=== PATIENT | female | born 1945 | race Caucasian/White ===

== ENCOUNTER → 2016-09-21 | Outpatient (CLI) | payer BC ==
[~2016-09-21] MED LIST: ACET-1256 PO; ACET650T49 PO; ASPCH81X PO; CHOL2000 PO; DOCU100C31 PO; GADAVIST IV PRN; GLC500 PO; GLIM2TAB PO; LISI-729 PO; LISI10TA PO; LPT/40 PO; LPT10 PO; MULT-506 PO; NVLGI/PEN SC; NYSTATIN POWDER TOP; OXYC1CAP5 PO; RXC5 PO; TRMO2580 TOP; TYLER650 PO
--- NOTE | 2016-09-21 11:16 | DIAGNOSTIC IMAGING REPORT ---
MRI OF THE BRAIN COMBO; MRI OF THE PITUITARY GLAND CLINICAL HISTORY: Meningioma. Pituitary macroadenoma. COMPARISON STUDY: MRI of the brain dated 10/19/2015. TECHNIQUE: MRI of the brain was performed utilizing various T1 and T2-weighted sequences in the axial, sagittal, and coronal planes. Contrast-enhanced sequences were acquired following the administration of 12 cc of Gadavist. Additional high-resolution imaging of the pituitary gland was performed including dynamic post contrast assessment. FINDINGS: Brain parenchyma: There is minimal periventricular microangiopathic change. There is no hemorrhage or mass effect. There is no restricted diffusion to suggest acute ischemia. There is unchanged appearance of a 1.9 x 2.1 x 1.2 cm homogeneously enhancing extra-axial mass in the anterior right temporal fossa as compared to 10/19/2015. This is typical in appearance for a meningioma. Stein-white matter differentiation is preserved. No extra-axial fluid collection is seen. The cerebellar tonsils are normal in configuration. Ventricles, sulci, and cisterns: Normal in configuration. Pituitary and sella: Again seen is a lobulated and enhancing mass lesion in the sella turcica. This extends in the suprasellar region and measures 2.0 x 1.2 x 2.0 cm. This abuts the optic chiasm. Intracranial vasculature: Normal flow voids are maintained at the skull base. Orbits: The bony orbits are grossly intact. Orbital contents are normal in appearance noting bilateral ocular lens implants. Sinuses and mastoids: Clear. Calvarium: Unremarkable. Cervical cord: Partially visualized cervical spinal cord is normal in morphology and signal intensity. IMPRESSION: 1. Age-related changes as above with no acute intracranial abnormality. 2. Unchanged appearance of a 2.1 cm extra-axial mass in the right anterior temporal fossa. This is typical in appearance for a meningioma. 3. Unchanged appearance of a 2.0 cm mass lesion centered in the sella turcica. The appearance is typical for a pituitary macroadenoma as clinically stated. This lesion extends in the suprasellar region and abuts the optic chiasm. Electronically signed by: Kenny Jung M.D. 09/21/2016 11:15 AM Dictated Date/Time: 09/21/2016 11:07 AM
== END | disposition home or self-care (01) ==
LOC: C.MRIBC 09:36
PROVIDERS: ATTEND Psychiatry & Neurology Neurology
DX: D32.9 Benign neoplasm of meninges, unspecified (principal); D35.2 Benign neoplasm of pituitary gland

== ENCOUNTER → 2016-10-07 | Outpatient (CLI) | payer BC ==
[~2016-10-07] MED LIST changes: -GADAVIST IV PRN
[2016-10-07 12:24] LABS: BASO % 0.2 %; BASO ABS # 0.01 K/uL (0-0.2); COMPLETE YES; EOS % 3.1 %; HEMATOCRIT 41.8 % (37-47); LYMPH % 33.9 %; LYMPH ABS # 1.52 K/uL (1.2-3.4); MEAN CELL VOLUME 93.5 fL (80-100); MEAN CORPUSCULAR HEMOGLOBIN 30.4 pg (25-34); MEAN CORPUSCULAR HGB CONC 32.5 g/dl (32-36); MEAN PLATELET VOLUME 10.7 fL (7.4-10.4); MONO % 9.6 %; NEUT % 53.2 %; PLATELET COUNT 130 K/uL (130-400); RED BLOOD COUNT 4.47 M/uL (4.2-5.4); WHITE BLOOD COUNT 4.49 K/uL (4.8-10.8)
[2016-10-07 12:35] LABS: ALT/SGPT 29 U/L (12-78); BLOOD UREA NITROGEN 19 mg/dl (7-18); BUN/CREATININE RATIO 25.6 (10-20); CALCIUM 8.9 mg/dl (8.5-10.1); CARBON DIOXIDE 27 mmol/L (21-32); CHLORIDE 105 mmol/L (98-107); CREATININE 0.73 mg/dl (0.60-1.20); GLUCOSE 137 mg/dl (70-99); POTASSIUM 4.2 mmol/L (3.5-5.1); SODIUM 140 mmol/L (136-145)
[2016-10-07 12:48] LABS: ALB/GLOB RATIO 0.7 (0.9-2); ALKALINE PHOSPHATASE 50 U/L (45-117); AST/SGOT 30 U/L (15-37); IMMUNOGLOBULN M 95.4 mg/dL (40-230)
[2016-10-07 12:51] LABS: ESTIMATED AVERAGE GLUCOSE 148 mg/dl; HA1C FLAG Normal (Normal)
[2016-10-07 13:03] LABS: RATIO 271.7 mcg/mg (0-30.0)
[2016-10-10 13:50] LABS: FREE KAPPA 44.1 MG/L (3.3-19.4); FREE KAPPA/LAMBDA RATIO 1.13 (0.26-1.65); FREE LAMBDA 39.1 MG/L (5.7-26.3)
[2016-10-10 17:51] LABS: ALBUMIN 3.3 G/DL (3.8-4.8); GAMMA GLOBULIN 1.5 G/DL (0.8-1.7)
[2016-10-11 08:43] LABS: ALBUMIN % 63.89 %; ALPHA-2-GLOBULIN % 4.34 %; BETA GLOBULIN % 18.06 %; CREATININE UR 129 MG/DL (20-320); GAMMA GLOBULIN % 12.12 %
== END | disposition home or self-care (01) ==
LOC: C.LABPVFM 08:30
PROVIDERS: ATTEND Nurse Practitioner
DX: D47.2 Monoclonal gammopathy (principal); E11.9 Type 2 diabetes mellitus without complications; I10 Essential (primary) hypertension; E78.00 Pure hypercholesterolemia, unspecified; E55.9 Vitamin D deficiency, unspecified

== ENCOUNTER 2016-11-18 10:27 | Inpatient (IN) | payer BC, OTHER ==
--- NOTE | 2016-11-03 09:32 | DIAGNOSTIC IMAGING REPORT ---
TWO VIEW CHEST CLINICAL HISTORY: Preoperative examination. FINDINGS: PA and lateral chest radiographs are compared to study dated 03/02/2014 and correlated with chest CT dated 11/20/2008. The heart is enlarged and there is atherosclerotic calcification of the thoracic aorta. The pulmonary vasculature is noncongested. Chronic dependent changes noted at the lung bases. No airspace consolidation or pleural effusion is identified. There is no pneumothorax. The skeletal structures are osteopenic. Degenerative change and mild hyperkyphosis is noted in the thoracic spine. Cholecystectomy clips are noted in the right upper quadrant. IMPRESSION: Cardiac enlargement with no active disease in the chest. Electronically signed by: Kenny Jung M.D. 11/03/2016 9:30 AM Dictated Date/Time: 11/03/2016 9:29 AM
[2016-11-03 09:48] LABS: BASO % 0.1 %; BASO ABS # 0.01 K/uL (0-0.2); COMPLETE YES; EOS % 2.7 %; HEMATOCRIT 43.9 % (37-47); IG% 0.4 %; LYMPH % 24.9 %; LYMPH ABS # 1.75 K/uL (1.2-3.4); MEAN CELL VOLUME 91.6 fL (80-100); MEAN CORPUSCULAR HEMOGLOBIN 29.9 pg (25-34); MEAN CORPUSCULAR HGB CONC 32.6 g/dl (32-36); MONO % 9.4 %; NEUT % 62.5 %; PLATELET COUNT 137 K/uL (130-400); RED BLOOD COUNT 4.79 M/uL (4.2-5.4); WHITE BLOOD COUNT 7.03 K/uL (4.8-10.8)
[2016-11-03 09:53] LABS: URINE APPEARANCE CLEAR (CLEAR); URINE BILIRUBIN NEG (NEG); URINE COLOR YELLOW; URINE EPITHELIAL CELL AUTO >30 /lpf (0-5); URINE NITRITE NEG (NEG); URINE SPECIFIC GRAVITY 1.016 (1.000-1.030); UROBILINOGEN NEG (NEG)
[2016-11-03 09:56] LABS: MANUAL MICROSCOPIC REQUIRED? NO; REVIEW REQ? NO
[2016-11-03 10:01] LABS: BLOOD UREA NITROGEN 24 mg/dl (7-18); BUN/CREATININE RATIO 28.4 (10-20); CARBON DIOXIDE 33 mmol/L (21-32); CHLORIDE 103 mmol/L (98-107); CREATININE 0.83 mg/dl (0.60-1.20); GLUCOSE 110 mg/dl (70-99); POTASSIUM 4.6 mmol/L (3.5-5.1); SODIUM 141 mmol/L (136-145)
[2016-11-03 15:33] VITALS: BMI 46.0
--- NOTE | 2016-11-17 14:40 | HISTORY & PHYSICAL EXAMINATION ---
DATE OF ADMISSION: 11/18/2016 CHIEF COMPLAINT: Lower back pain, bilateral leg pain, difficulties with ambulation. HISTORY OF PRESENT ILLNESS: Ms. Dudley is a patient who is well known to our practice. She has complaints of pain in the lower portion of her back affecting both of her legs. She has had epidural injections in the past with limited relief. The pain goes down to both knees, left side slightly worse than right. She denies any other numbness, tingling, paresthesias, any change in bladder or bowel function. PAST MEDICAL HISTORY: Significant for hypertension, diabetes, chest pressure and vertigo. PAST SURGICAL HISTORY: The patient has not recorded any surgical history per her office chart. ALLERGIES: The patient has not listed any drug allergies. MEDICATIONS: Include Vitamin D3, Trianex, Nystatin, metformin, lisinopril, glyburide, atorvastatin, glipizide, aspirin, and Extra-Strength Tylenol. REVIEW OF SYSTEMS: As per the patient's medical history. SOCIAL HISTORY: The patient is a 71-year-old female. She is retired and denies any illicit drug use. PHYSICAL EXAMINATION: GENERAL: She weighs 241 pounds, stands and moves easily about the exam room. MUSCULOSKELETAL: Lower extremity motor exam reveals no focal atrophy. Strength and sensation both intact. Gait stable. Visual neely are grossly intact. CARDIOVASCULAR EXAMINATION: Reveals no gross abnormalities. ABDOMEN: Soft, nontender. EXTREMITIES: Calves are supple and nontender. Skin is intact. NECK: Supple and nontender. Peripheral pulses are palpable distally. RADIOGRAPHIC IMAGES: Recent MRI of the lumbar spine is available for review. This reveals spondylolisthesis at the L4-5 and L5-S1 level. There is significant neural foraminal disease at both levels, modest lateral recess stenosis L3-4, L4-5 and L5-S1. ASSESSMENT: Spinal instability, spinal stenosis with lower back and left greater than right radicular complaints. PLAN: At this point, she has failed conservative measures. She is considering possible surgical intervention. Surgically would consider performing lumbar decompression L4-5 and L5-S1, undercutting L3-4 and performing instrumented fusion. Main benefit of this approach is significant chance for reduction of her radicular complaints to a lesser degree lower back pain. Risks of surgery include but are not limited to from anesthetic, stroke, blindness, infection, bleeding requiring transfusion, incomplete relief of symptoms, adjacent level disease, need for reoperation. After a thorough discussion, she would like to proceed with surgery as outlined above. We will go ahead and make necessary arrangements for this, get preoperative testing and date of surgery set. If there are any questions or concerns, she will contact our office.
[2016-11-18] VITALS (7 sets, daily range): BP systolic 118–198; BP diastolic 69–122; PULSE 83–93; TEMP 36.3–36.8; O2SAT 93–99; Ht 154.9 cm; Wt 109.5 kg
[~2016-11-18] VITALS: Ht 154.9 cm; Wt 109.5 kg
--- NOTE | 2016-11-18 07:31 | History & Physical Bridge Note ---
H&P Re-Evaluation Bridge Note: I have examined the patient, reviewed the History & Physical and in the interval since the performance of the History & Physical I have noted the following changes of clinical significance: No changes noted
[~2016-11-18 10:27] MED LIST changes: -ACET-1256 PO; +CEFAZOLIN 2000 MG/60 ML D5W IV SCH; -DOCU100C31 PO; +FENTANYL CITRATE INJ 50 MCG/1 ML 2 ML VIAL ONE; +LACTATED RINGER'S 1000ML 1,000 ML IV SCH; -LISI10TA PO; -LPT10 PO; -MULT-506 PO; -NVLGI/PEN SC; -OXYC1CAP5 PO; -RXC5 PO; -TYLER650 PO
[2016-11-18] MEDS ORDERED: BUPIVACAINE/EPINEPHRINE 0.5% MPF 1:200,000 30 ML VIAL ONE (10:50)
[2016-11-18] MEDS ORDERED: SODIUM CHLORIDE 0.9% PF 50 ML VIAL ONE (10:50)
[2016-11-18] MEDS ORDERED: BACITRACIN 50000 UNIT VIAL ONE (10:51)
[2016-11-18] MEDS ORDERED: FENTANYL CITRATE INJ 50 MCG/1 ML 2 ML VIAL ONE ×3 (11:14→11:49)
[2016-11-18] MEDS ORDERED: MIDAZOLAM HCL 1 MG/ML 2ML VIAL ONE (11:14)
[2016-11-18] MEDS ORDERED: CEFAZOLIN SOD 1 GM VIAL ONE (11:29)
[2016-11-18] MEDS ORDERED: THROMBIN FOR SOLN 20000 UNIT KIT ONE (11:40)
[2016-11-18] MEDS ORDERED: ONDANSETRON INJ 2 MG/ML 2 ML VIAL IV PRN ×2 (11:45→14:00)
[2016-11-18] MEDS ORDERED: MoRPHine SULFATE 10 MG/ML CARP/VIAL IV PRN (11:45)
[2016-11-18] MEDS ORDERED: FENTANYL CITRATE INJ 50 MCG/1 ML 2 ML VIAL IV PRN (11:45)
[2016-11-18] MEDS ORDERED: HYDROmorphone INJ 2 MG/ML SYR/VIAL ONE ×3 (11:45→13:58)
[2016-11-18] MEDS ORDERED: LACTATED RINGER'S 1000ML 1,000 ML IV PRN (11:45)
[2016-11-18] MEDS ORDERED: LIDOCAINE HCL 2% 2 ML VIAL (20MG/ML) ONE (13:09)
[2016-11-18] MEDS ORDERED: ONDANSETRON INJ 2 MG/ML 2 ML VIAL ONE ×3 (13:09→15:02)
[2016-11-18] MEDS ORDERED: ROCURONIUM BROMIDE 10 MG/ML 5 ML VIAL ONE (13:09)
[2016-11-18] MEDS ORDERED: PROPOFOL IV EMULSION 10 MG/ML 20 ML VIAL IV ONE (13:09)
[2016-11-18] MEDS ORDERED: DEXAMETHASONE SOD INJ 4 MG/ML VIAL ONE (13:09)
[2016-11-18] MEDS ORDERED: FLOSEAL HEMOSTATIC MATRIX 10ML TOP ONE (13:47)
[2016-11-18] MEDS ORDERED: SODIUM CHLORIDE 0.9% 1000ML 1,000 ML IV SCH (13:48)
--- NOTE | 2016-11-18 13:48 | [facility] Post Operative Brief Note ---
Immediate Operative Summary Operative Date Nov 18, 2016. Pre-Operative Diagnosis Lumbar Spinal Stenosis Post-Operative Diagnosis same as pre-operative Procedure(s) Performed L4-L5, L5-S1 Lumbar Laminectomy, Decompression; L4-L5, L5-S1 Posterior Fusion; Bone Morphogenetic Protein; with Use of Equality Surgeon Dr. Eulalio Salazar Orthophoto Tech/Draftsman Surgeon(s) Edi Elaine PA-C Estimated Blood Loss 1000ML Findings stenosis Specimens none per surgeon
--- NOTE | 2016-11-18 13:50 | DIAGNOSTIC IMAGING REPORT ---
Intraoperative lumbar spine 2 views CLINICAL HISTORY: Spinal decompression. COMPARISON STUDY: No previous studies for comparison. FINDINGS: 2 fluoroscopic spot images are provided for interpretation. 24 seconds of fluoroscopic time was utilized. Pedicle screws at the L4, L5, and S1 levels with adjoining spinal rods are visualized. Postlaminectomy defects are visualized. IMPRESSION: Postsurgical changes of a spinal decompression and fusion. Electronically signed by: Eddi Montalvo M.D. 11/18/2016 1:48 PM Dictated Date/Time: 11/18/2016 1:47 PM
[2016-11-18 13:59] LABS: HEMATOCRIT 30.8 % (37-47)
[2016-11-18] MEDS ORDERED: LORAZEPAM INJ 0.5 MG in SYRINGE 0 ML IV PRN (14:00)
[2016-11-18] MEDS ORDERED: METOCLOPRAMIDE HCL INJ 5 MG/ML 2 ML VIAL IV PRN (14:00)
[2016-11-18] MEDS ORDERED: ESMOLOL HCL 10 MG/ML 10 ML VIAL ONE (14:00)
[2016-11-18] MEDS ORDERED: NALOXONE HCL 0.4 MG/1 ML VIAL/CARP IV PRN ×2 (14:00)
[2016-11-18] MEDS ORDERED: DO NOT ADMINISTER FLU VACCINE PRN ×3 (14:00)
[2016-11-18] MEDS ORDERED: BISACODYL 10 MG SUPP PR PRN (14:00)
[2016-11-18] MEDS ORDERED: HYDROmorphone HCL 0.5MG/ML 50 ML CASSETTE IV PRN (14:00)
[2016-11-18] MEDS ORDERED: PROMETHAZINE HCL INJ 12.5 MG in SODIUM CHLORIDE 0.9% 50ML 50 ML IV PRN (14:00)
[2016-11-18] MEDS ORDERED: hydrOXYzine HCL 25 MG TAB PO PRN (14:00)
[2016-11-18] MEDS ORDERED: METOPROLOL TARTRATE 1 MG/ML VIAL ONE (14:00)
[2016-11-18] MEDS ORDERED: MAGNESIUM HYDROXIDE SUSP 30 ML UDC PO PRN (14:00)
[2016-11-18] MEDS ORDERED: GLYCOPYRROLATE INJ 0.2 MG/ML VIAL ONE (14:00)
[2016-11-18] MEDS ORDERED: ACETAMINOPHEN 500 MG TAB PO PRN (14:00)
[2016-11-18] MEDS ORDERED: DO NOT ADMINISTER PNEUMOCOCCAL VACCINE PRN ×2 (14:00)
[2016-11-18] MEDS ORDERED: NEOSTIGMINE METHYLSULFATE 1 MG/ML 10ML VIAL ONE (14:00)
[2016-11-18] MEDS ORDERED: FAMOTIDINE 20 MG TAB PO PRN (14:00)
[2016-11-18] MEDS ORDERED: SOD PHOSPHATE/SOD BIPHOSPHATE ENEMA 132 ML BTL PR PRN (14:00)
[2016-11-18] MEDS ORDERED: ACETAMINOPHEN IV 100 ML IV PRN (14:00)
[2016-11-18] MEDS ORDERED: LORAZEPAM 0.5 MG TAB PO PRN (14:00)
[2016-11-18] MEDS ORDERED: HYDROmorphone HCL 0.5MG/ML 50 ML CASSETTE ONE (14:16)
--- NOTE | 2016-11-18 14:49 | Anesthesiology Progress Note ---
Anesthesia Post Op Note Date & Time Nov 18, 2016 at 14:49 Vital Signs Pain Intensity: 5 Vital Signs Past 12 Hours Date Time Temp Pulse Resp B/P Pulse Ox O2 Delivery O2 Flow Rate FiO2 11/18/16 14:40 84 16 164/79 96 Nasal Cannula 4 11/18/16 14:30 92 16 159/81 99 Mask 10 11/18/16 14:20 92 16 158/83 99 Mask 10 11/18/16 14:14 36.4 91 12 137/78 98 Mask 10 11/18/16 10:44 36.8 84 20 198/122 97 Room Air Notes Mental Status: alert / awake / arousable, participated in evaluation Pt Amnestic to Procedure: Yes Nausea / Vomiting: adequately controlled Pain: adequately controlled Airway Patency, RR, SpO2: stable & adequate BP & HR: stable & adequate Hydration State: stable & adequate Anesthetic Complications: no major complications apparent Pt doing well. Pain tolerable.
--- NOTE | 2016-11-18 14:54 | OPERATIVE REPORT ---
DATE OF OPERATION: 11/18/2016 PREOPERATIVE DIAGNOSES: Spinal stenosis and spondylolisthesis. POSTOPERATIVE DIAGNOSES: Same. PROCEDURES PERFORMED: 1. Lumbar decompression, medial facetectomy, and foraminotomy L3-L4, L4-L5, and L5-S1. 2. Posterior spinal fusion, L4-L5 and L5-S1. 3. Placement of posterior segmental instrumentation using Orthros rods and screws, L4-L5 and L5-S1. 4. Placement of locally harvested morselized autograft in the posterior gutters. 5. Placement of Infuse collagen sponge combined with Mastergraft and Aubree bone grafting in the posterior gutters. SURGEON: Eulalio Salazar DO. MILIEU TECHNICIAN: Edi Elaine PA-C. Due to the complex nature of the procedure, the entire surgery was performed with the assistant family teacher of Edi Elaine PA-C. The digital marketing assistant, under direct supervision, was involved in the actual performance of all aspects of the surgical procedure including hemostasis, tissue retraction and incision, instrument management, patient positioning, and wound closure. ANESTHESIA: General. DISPOSITION: The patient awakened and taken to PACU in stable condition. HISTORY OF PATIENT'S PROBLEMS: This is a 71-year-old female that presents above-mentioned diagnoses after failing an extensive course of nonoperative care, elected to undergo the above-mentioned procedures. Risks, benefits, pros, cons, and alternatives were outlined in detail preoperatively. DESCRIPTION OF PROCEDURE: The patient was met with preoperatively, the case discussed and all questions were addressed. At that point the patient was taken back to operative suite and after undergoing successful general intubation by the department of anesthesia, she was placed in prone position on Javed table atop Gaurav frame. All bony prominences were well padded and the eyes were inspected to ensure there was no external pressure placed upon them. At this point, lumbar spine was prepped and draped in normal sterile fashion. Sharp dissection with the assistance of Bovie cautery was performed down to and exposing the lamina and transverse processes of L4-L5 and sacral ala bilaterally. From a caudal to cephalad fashion, complete laminectomy of L5, L4, partial laminectomy of L3 was performed addressing severe lateral recess and foraminal disease. Pedicle screws were then placed in L4, L5 and S1 levels bilaterally with the assistance of fluoroscopy and the appropriate size adrianna locked into position. A crosslink was also locked into position and the transverse processes of L4, L5 and sacral ala burred to subcortical bone. Infuse collagen sponge combined with Mastergraft locally harvested morcellized autograft and Aubree bone grafting placed in the posterior gutters, crosslink locked into position, 7 flat CRIS drain inserted. Incision was closed with 1-0 Vicryl in the fascia, 2-0 Vicryl subcutaneously, and 4-0 Monocryl for final skin closure. Steri-Strips and sterile dressing placed. The patient was awakened and taken to PACU in stable condition. I attest to the content of the Intraoperative Record and any orders documented therein. Any exceptio ns are noted below.
[2016-11-18] MEDS ORDERED: DEXTROSE 50% 50 ML SYR IV PRN (15:15)
[2016-11-18] MEDS ORDERED: GLUCAGON FOR INJ 1 MG VIAL SQ PRN (15:15)
[2016-11-18] MEDS ORDERED: GLUCOSE 40% GEL 15 GM TUBE PO PRN (15:15)
[2016-11-18] MEDS ORDERED: GLUCOSE 10 TABS/TUBE PO PRN (15:15)
--- NOTE | 2016-11-18 15:20 | Pharmacy Progress Note ---
Glycemic Control: Progress Nt Date of Service Nov 18, 2016. Scope Glycemic Pharmacist consulted by Dr Salazar on 11/18/16 for glycemic control and to write orders per formerly [facility] inpatient glycemic control protocol. Objective Accuchecks BSG (last 24hrs): Test 11/18/16 10:48 11/18/16 14:21 Bedside Glucose 165 mg/dl (70-90) 186 mg/dl (70-90) Recent Pertinent Medications Outpatient Anti-diabetic Regimen: * Amaryl 2mg PO BID * Glucophage 1000mg PO BID * A1c = 6.8 % 09/2016 The patient is currently receiving: * Oral Agents: * Amaryl 2mg PO BID Risk Factors for Insulin Resistance: * Steroids: DXM 12 mg IV x1 dose intraoperatively, then DXM 6mg IV q8H x3 doses * Infection: cefazolin perioperatively * IVF: LR --> NSS * Recent Surgery: POD #0 lumbar decompression * Diet: Regular Assessment & Plan ASSESSMENT: * ADA & AACE recommend a goal blood sugar range 140-180 mg/dl for the majority of critically ill & non-critically ill patients. However, more stringent targets may be selected in individual cases. Will utilize more stringent goal of 110-140mg/dl based on patient age & comorbidities. Additionally, tighter glycemic control is warranted to facilitate wound/infection healing. * Pt is maintained on oral antidiabetic agents as an outpatient * Oral agents are not recommended for inpatient use d/t drug interactions, changing PO intake, and difficulty titrating for acute hyper/hypoglycemia. ADA recommends re-initiating outpatient oral agents 1-2 days prior to discharge if/ when appropriate if they were held on admission. * Will hold oral agents for admission and utilize SQ basal bolus insulin regimen which is the recommended regimen for inpatient glycemic control. * Will initiate weight based insulin dosing for insulin alejandro patient and titrate based on BSG trends. * P/O with Dr. Salazar with large around the clock steroids - will be aggressive with insulin dosing to combat steroid-induced hyperglycemia PLAN FOR INPATIENT GLYCEMIC CONTROL: * Basal insulin: * Lantus 25 units SQ x1 dose tonight with dinner (stress of 3) * Lantus 20 units SQ x1 dose tomorrow AM with breakfast (stress of 2) * further doses PRN * Bolus insulin: * NovoLog SQ AC and HS - add overnight Accu-checks while DXM active * Correction factor: 15mg/dL/unit * Carb ratio: 1 unit per 5g of CHO consumed * Goal range: 110-140mg/dL per above * Oral agents: * HOLD at this time and resume closer to discharge when PO intake has been adequately established * Diet: * change from Regular --> Type 2 diabetic diet * A1c - current * add to discharge instructions RECOMMENDATIONS FOR DISCHARGE: * Continue home regimen * Please note that the plan above was derived based on current level of insulin resistance and hospital stress. These recommendations are appropriate for inpatient admission only. Plan of care upon discharge will need to be reassessed to avoid potential outpatient hypo/hyperglycemia. Thank you.
[2016-11-18] MEDS ORDERED: PHARMACY GLYCEMIC MGMT CONSULT PRN (16:30)
[2016-11-18] MEDS ORDERED: GLIMEPIRIDE 2 MG TAB PO SCH (17:45)
[2016-11-18] MEDS ORDERED: INSULIN GLARGINE SOLOSTAR 100 UNITS/ML 3 ML PEN SC SCH (18:00)
[2016-11-18] MEDS: SODIUM CHLORIDE 0.9% 1000ML 1,000 ML IV SCH ×2 (18:08→22:02)
[2016-11-18] MEDS: INSULIN ASPART 100 UNITS/ML 3 ML PEN SC SCH ×2 (18:30→21:47)
[2016-11-18] MEDS: CEFAZOLIN IV 2,000 MG in DEXTROSE 5% 50ML 50 ML IV SCH (18:58)
--- NOTE | 2016-11-18 20:44 | Medical Consult ---
Consultation Date of Consultation: Nov 18, 2016. Attending Physician: Eulalio Salazar D.O. Reason for Consultation: Med management History of Present Illness 71 y/o F who was admitted early today s/p lumbar fusion and decompression. Pt is a bit nauseated post-op and with decreased appetite, but has tolerated some sips of broth. No emesis. No chest pain or SOB. Pt denies fever, abd pain, c/d , LE pain or swelling. ROS as noted above, otherwise neg. Past Medical/Surgical History DM HTN HLD Vitamin D deficiency Vertigo Family History Family history was reviewed; no changes noted. Social History Smoking Status: Former Smoker Alcohol Use: none Drug Use: none Marital Status: Housing Status: lives with family Occupation Status: unemployed Allergies Coded Allergies: No Known Allergies (Verified , 11/18/16) Current Inpatient Medications Current Inpatient Medications Medications (Trade) Dose Ordered Sig/Marcello Route Start Time Stop Time Status Last Admin Dose Admin Lactated Ringer's 1,000 ml @ 15 mls/hr Q24H IV 11/18/16 06:00 11/19/16 05:59 11/18/16 10:44 15 MLS/HR Dexamethasone Sodium Phosphate 6 mg/Syringe 1.5 ml @ 1 mls/min Q8H IV 11/18/16 20:00 11/19/16 12:02 Promethazine HCl/ Sodium Chloride (Phenergan Inj/ Nss 50ml) 50.5 ml @ 202 mls/hr Q6H PRN IV 11/18/16 14:00 12/18/16 13:59 Ondansetron HCl (Zofran Inj) 4 mg Q6H PRN IV 11/18/16 14:00 12/18/16 13:59 Metoclopramide HCl (Reglan Inj) 10 mg Q6H PRN IV 11/18/16 14:00 12/18/16 13:59 Lorazepam 0.5 mg 0.5 mg Q8H PRN PO 11/18/16 14:00 12/18/16 13:59 Lorazepam/Syringe (Ativan Inj/ Syringe) 0.25 ml @ 1 mls/min Q8H PRN IV 11/18/16 14:00 12/18/16 13:59 Pneumococcal Polysaccharide Vaccine 1 ea PRN PRN N/A 11/18/16 14:00 12/18/16 13:59 Influenza Virus Vacc Triv Types A&B 1 ea PRN PRN N/A 11/18/16 14:00 12/18/16 13:59 Polyethylene (Miralax Powder Packet) 17 gm Q6 PO 11/20/16 06:00 12/20/16 05:59 Bisacodyl (Dulcolax Supp) 10 mg DAILY PRN NV 11/18/16 14:00 12/18/16 13:59 Magnesium Hydroxide (Milk Of Magnesia Susp) 30 ml DAILY PRN PO 11/18/16 14:00 12/18/16 13:59 Hydromorphone HCl (Dilaudid Inj) 0.5-1mg prn moder... Q3H PRN IV 11/19/16 06:00 12/03/16 05:59 Oxycodone HCl 5-10mg prn moderate to sev... Q4H PRN PO 11/19/16 06:00 12/03/16 05:59 Cefazolin Sodium 2000 mg/Dextrose 60 ml @ 100 mls/hr Q8H IV 11/18/16 18:00 11/19/16 02:35 11/18/16 18:58 100 MLS/HR Sodium Chloride (Nss 1000ml) 1,000 ml @ 150 mls/hr Q6H40M IV 11/18/16 13:48 12/18/16 13:47 11/18/16 18:08 150 MLS/HR Acetaminophen 1000 mg 1,000 mg Q8H PRN PO 11/18/16 14:00 12/18/16 13:59 Acetaminophen (Ofirmev Iv) 100 ml @ 400 mls/hr Q8H PRN IV 11/18/16 14:00 12/18/16 13:59 Naloxone HCl (Narcan Inj) 0.1 mg Q5M PRN IV 11/18/16 14:00 12/18/16 13:59 Senna/Docusate Sodium (Senokot S Tab) 2 tab HS PO 11/18/16 21:00 12/18/16 20:59 Sodium Biphosphate/ Sodium Phosphate (Fleet Enema) 132 ml ONE PRN NV 11/18/16 14:00 12/18/16 13:59 Hydroxyzine HCl (Vistaril Tab) 25 mg Q8H PRN PO 11/18/16 14:00 12/18/16 13:59 Al Hydroxide/Mg Hydroxide (Maalox Susp) 30 ml Q6H PRN PO 11/18/16 14:00 12/18/16 13:59 Famotidine (Pepcid Tab) 20 mg Q12 PRN PO 11/18/16 14:00 12/18/16 13:59 Diphenhydramine HCl (Benadryl Cap) 25 mg Q6H PRN PO 11/18/16 14:00 12/18/16 13:59 Miscellaneous Information (Discontinue MICA LAMINATING MACHINE FEEDER) 1 ea ONE ONCE N/A 11/19/16 06:00 11/19/16 06:01 Naloxone HCl (Narcan Inj) 0.1 mg Q5M PRN IV 11/18/16 14:00 11/19/16 06:00 Hydromorphone HCl 25 mg 25 mg PRN PRN IV 11/18/16 14:00 11/19/16 06:00 Sodium Chloride (Nss 1000ml) 1,000 ml @ 15 mls/hr Q24H IV 11/18/16 13:48 11/19/16 06:00 Aspirin (Ecotrin Tab) 81 mg QAM PO 11/19/16 09:00 12/19/16 08:59 Atorvastatin Calcium (Lipitor Tab) 40 mg QPM PO 11/18/16 21:00 12/18/16 20:59 Glimepiride (Amaryl Tab) 2 mg BIDM PO 11/18/16 17:45 12/18/16 17:59 Future hold Lisinopril (Zestril Tab) 5 mg QPM PO 11/18/16 21:00 12/18/16 20:59 Miscellaneous Information (Consult Glycemic Management Pharmacy) 1 ea UD PRN N/A 11/18/16 16:30 12/18/16 16:29 Insulin Aspart (novoLOG ASPART) SLIDING SCALE G... ACHS SC 11/18/16 17:15 12/18/16 17:14 11/18/16 18:30 10 UNITS Insulin Aspart (novoLOG ASPART) SLIDING SCALE G... 0000,0400 [place] 11/19/16 00:00 12/19/16 00:00 Insulin Glargine (Lantus Solostar Pen) 20 unit TODAY@0900 [place] 11/19/16 09:00 11/19/16 10:00 Glucose (Glucose 40% Gel) 15-30 GRAMS 15 GRAMS... UD PRN PO 11/18/16 15:15 12/18/16 15:14 Glucose (Glucose Chew Tab) 4-8 Tablets 4 Tabl... UD PRN PO 11/18/16 15:15 12/18/16 15:14 Dextrose (Dextrose 50% 50ML Syringe) 25-50ML OF 50% DW IV FOR... UD PRN IV 11/18/16 15:15 12/18/16 15:14 Glucagon (Glucagon Inj) 1 mg UD PRN SQ 11/18/16 15:15 12/18/16 15:14 Physical Exam Date Time Temp Pulse Resp B/P Pulse Ox O2 Delivery O2 Flow Rate FiO2 11/18/16 17:20 36.3 85 16 121/69 98 Nasal Cannula 4.0 11/18/16 16:43 83 16 135/70 97 Nasal Cannula 4.0 11/18/16 16:18 36.3 88 18 142/77 98 Nasal Cannula 4.0 11/18/16 15:25 36.2 80 16 143/69 99 Nasal Cannula 4 11/18/16 15:10 36.2 80 16 146/72 99 Nasal Cannula 4 11/18/16 15:00 36.2 79 16 146/79 99 Nasal Cannula 4 11/18/16 14:50 36.2 86 16 166/74 100 Nasal Cannula 4 11/18/16 14:40 84 16 164/79 96 Nasal Cannula 4 11/18/16 14:30 92 16 159/81 99 Mask 10 11/18/16 14:20 92 16 158/83 99 Mask 10 11/18/16 14:14 36.4 91 12 137/78 98 Mask 10 11/18/16 10:44 36.8 84 20 198/122 97 Room Air General Appearance: no apparent distress, + obese Head: normocephalic, atraumatic Respiratory/Chest: normal breath sounds, no respiratory distress Cardiovascular: regular rate, rhythm, no edema Abdomen/GI: non tender, soft Extremities/Musculoskelatal: no calf tenderness, no pedal edema Neurologic/Psych: alert, oriented x 3 Skin: normal color, warm/dry Laboratory Results Last 24 Hours Test 11/18/16 00:00 11/18/16 10:48 11/18/16 14:21 11/18/16 17:17 Hemoglobin 10.1 g/dL Hematocrit 30.8 % Bedside Glucose 165 mg/dl 186 mg/dl 258 mg/dl Assessment & Plan 71 y/o F who was admitted on 11/18 s/p lumbar fusion and decompression. s/p lumbar fusion and decompression: as per ortho DM: SSI until taking reliable PO, then can switch back to home PO meds HTN: stable, monitor on home meds Vertigo: no acute issues post-op
[2016-11-18] MEDS: DEXAMETHASONE INJ 6 MG in SYRINGE 0 ML IV SCH (21:37)
[2016-11-18] MEDS: LISINOPRIL 5 MG TAB PO SCH (21:39)
[2016-11-18] MEDS: ATORVASTATIN 40 MG TAB PO SCH (21:39)
[2016-11-18] MEDS: DOCUSATE SODIUM/SENNA 50/8.6MG TAB PO SCH (21:39)
[2016-11-19] MEDS: INSULIN ASPART 100 UNITS/ML 3 ML PEN SC SCH ×6 (00:38→21:03)
[2016-11-19] MEDS ORDERED: INSULIN REGULAR 8 UNITS in SYRINGE 7.92 ML IV ONE (00:45)
[2016-11-19] MEDS: CEFAZOLIN IV 2,000 MG in DEXTROSE 5% 50ML 50 ML IV SCH (02:34)
[2016-11-19] MEDS: SODIUM CHLORIDE 0.9% 1000ML 1,000 ML IV SCH (02:34)
[2016-11-19 04:00] VITALS: BP 106/67; PULSE 100; TEMP 36.9; O2SAT 92
[2016-11-19] MEDS: DEXAMETHASONE INJ 6 MG in SYRINGE 0 ML IV SCH ×2 (04:09→13:01)
[2016-11-19] MEDS ORDERED: HYDROmorphone INJ 1 MG/ML SYR IV PRN (06:00)
[2016-11-19] MEDS ORDERED: DC PCA ONE (06:00)
[2016-11-19] MEDS ORDERED: NURSING DECISION MEDICATION ORDER SCH (06:45)
[2016-11-19 07:00] LABS: COMPLETE YES; HEMATOCRIT 32.4 % (37-47); IG% 0.2 %; LYMPH % 6.2 %; MEAN CELL VOLUME 93.6 fL (80-100); MEAN CORPUSCULAR HEMOGLOBIN 30.1 pg (25-34); MEAN CORPUSCULAR HGB CONC 32.1 g/dl (32-36); MONO % 3.4 %; NEUT % 90.2 %; PLATELET COUNT 121 K/uL (130-400); RED BLOOD COUNT 3.46 M/uL (4.2-5.4); WHITE BLOOD COUNT 6.47 K/uL (4.8-10.8)
[2016-11-19 07:35] VITALS: BP 109/64; PULSE 95; TEMP 36.8; O2SAT 92
[2016-11-19 07:35] LABS: BUN/CREATININE RATIO 21.2 (10-20); CALCIUM 7.6 mg/dl (8.5-10.1); CREATININE 0.99 mg/dl (0.60-1.20); POTASSIUM 4.4 mmol/L (3.5-5.1)
[2016-11-19 08:15] VITALS: O2SAT 92
--- NOTE | 2016-11-19 08:51 | PROGRESS NOTE ---
DATE: 11/19/2016 DATE: 11/19/2016. SUBJECTIVE: Postop day 1. Back pain controlled. Leg pain improved. Vital signs stable. T-max 36.9. CRIS drained 30 mL. Hematocrit this a.m. 32.4. OBJECTIVE: On exam she has good strength to testing, appears quite comfortable. ASSESSMENT: Status post lumbar decompression and fusion. PLAN: At this time, will initiate physical therapy today, advance her bowel regimen, assess her progress Monday. On Monday, possibly discharge home with home health versus rehab.
[2016-11-19] MEDS ORDERED: INSULIN GLARGINE SOLOSTAR 100 UNITS/ML 3 ML PEN SC SCH (09:00)
[2016-11-19] MEDS: ASPIRIN 81 MG ECTAB PO SCH (09:09)
[2016-11-19] MEDS: OXYCODONE HCL IR 5 MG TAB (IMMEDIATE RELEASE) PO PRN ×3 (09:11→18:06)
--- NOTE | 2016-11-19 09:28 | Progress Note ---
Subjective Date of Service: Nov 19, 2016. 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, no pain without movement, no complaint Review of Systems Constitutional: No chills, No fatigue, No fever, No problem reported, No sweats , No weakness, No weight loss Eyes: No diplopia, No discharge, No eye pain, No redness, No worsening of vision ENT: No dental problems, No hearing loss, No nasal symptoms, No sore throat, No tinnitus, No trouble swallowing, No unusual epistaxis Respiratory: No cough, No dyspnea at rest, No dyspnea on exertion, No hemoptysis, No shortness of breath, No sputum, No wheezing Cardiac: No PND, No chest pain, No claudication, No edema, No orthopnea, No palpitations Abdomen: + constipation (has no bowel movement yet), No diarrhea, No nausea, No pain, No vomiting Musculoskeletal: No calf pain, No joint pain, No muscle pain, No swelling Female : No abnormal vaginal bleeding, No dysuria, No hematuria, No incontinence, No urinary frequency, No vaginal discharge Neurologic: No balance problems, No memory loss, No numbness/tingling, No paralysis, No vertigo, No weakness Psychiatric: No anhedonism, No anxiety, No depression symptoms, No insomnia, No substance abuse Heme: No abnormal bleeding/bruising, No clotting problems, No night sweats, No swollen lymph nodes Endo: No excessive thirst, No excessive urination, No fatigue Skin: No bleeding, No color change, No itch, No new/changing skin lesions, No rash Objective Vital Signs Date Time Temp Pulse Resp B/P Pulse Ox O2 Delivery O2 Flow Rate FiO2 11/19/16 07:35 36.8 95 18 109/64 92 Room Air 11/19/16 04:00 36.9 100 16 106/67 92 Room Air 11/19/16 00:30 Room Air 11/18/16 23:27 36.5 91 16 118/70 93 11/18/16 22:08 96 Room Air 11/18/16 17:20 36.3 85 16 121/69 98 Nasal Cannula 4.0 11/18/16 16:43 83 16 135/70 97 Nasal Cannula 4.0 11/18/16 16:18 36.3 88 18 142/77 98 Nasal Cannula 4.0 11/18/16 15:40 99 Nasal Cannula 4.0 11/18/16 15:40 98 Nasal Cannula 4.0 11/18/16 15:25 36.2 80 16 143/69 99 Nasal Cannula 4 11/18/16 15:10 36.2 80 16 146/72 99 Nasal Cannula 4 11/18/16 15:00 36.2 79 16 146/79 99 Nasal Cannula 4 11/18/16 14:50 36.2 86 16 166/74 100 Nasal Cannula 4 11/18/16 14:40 84 16 164/79 96 Nasal Cannula 4 11/18/16 14:30 92 16 159/81 99 Mask 10 11/18/16 14:20 92 16 158/83 99 Mask 10 11/18/16 14:14 36.4 91 12 137/78 98 Mask 10 11/18/16 10:44 36.8 84 20 198/122 97 Room Air Physical Exam General Appearance: WD/WN, no apparent distress, + obese Eyes: normal inspection, PERRL, EOMI, sclerae normal ENT: normal ENT inspection, hearing grossly normal, pharynx normal Neck: supple, no adenopathy, thyroid normal, no JVD, no carotid bruits, trachea midline Respiratory/Chest: chest non-tender, lungs clear, normal breath sounds, no respiratory distress, no accessory muscle use Cardiovascular: regular rate, rhythm, no edema, no gallop, no JVD, no murmur Abdomen: normal bowel sounds, non tender, soft, no organomegaly, no pulsatile mass Extremities: normal range of motion, non-tender, normal inspection, no pedal edema, no calf tenderness, normal capillary refill, pelvis stable 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/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, no motor/sensory deficits, alert, normal mood/affect, oriented x 3 Skin: normal color, warm/dry, no rash Lymphatic: no adenopathy Laboratory Results Last 24 Hours Test 11/18/16 10:48 11/18/16 14:21 11/18/16 17:17 11/18/16 20:17 Bedside Glucose 165 mg/dl 186 mg/dl 258 mg/dl 278 mg/dl Test 11/18/16 23:34 11/19/16 04:06 11/19/16 06:10 11/19/16 08:19 Bedside Glucose 296 mg/dl 264 mg/dl 282 mg/dl White Blood Count 6.47 K/uL Red Blood Count 3.46 M/uL Hemoglobin 10.4 g/dL Hematocrit 32.4 % Mean Corpuscular Volume 93.6 fL Mean Corpuscular Hemoglobin 30.1 pg Mean Corpuscular Hemoglobin Concent 32.1 g/dl Platelet Count 121 K/uL Mean Platelet Volume 10.0 fL Neutrophils (%) (Auto) 90.2 % Lymphocytes (%) (Auto) 6.2 % Monocytes (%) (Auto) 3.4 % Eosinophils (%) (Auto) 0.0 % Basophils (%) (Auto) 0.0 % Neutrophils # (Auto) 5.84 K/uL Lymphocytes # (Auto) 0.40 K/uL Monocytes # (Auto) 0.22 K/uL Eosinophils # (Auto) 0.00 K/uL Basophils # (Auto) 0.00 K/uL RDW Standard Deviation 48.5 fL RDW Coefficient of Variation 14.2 % Immature Granulocyte % (Auto) 0.2 % Immature Granulocyte # (Auto) 0.01 K/uL Sodium Level 139 mmol/L Potassium Level 4.4 mmol/L Chloride Level 105 mmol/L Carbon Dioxide Level 27 mmol/L Anion Gap 7.0 mmol/L Blood Urea Nitrogen 21 mg/dl Creatinine 0.99 mg/dl Est Creatinine Clear Calc Drug Dose 57.9 ml/min Estimated GFR () 65.5 Estimated GFR (Non- 56.5 BUN/Creatinine Ratio 21.2 Random Glucose 284 mg/dl Calcium Level 7.6 mg/dl Assessment and Plan 71 y/o F who was admitted on 11/18 s/p lumbar fusion and decompression. Hospitalist consulted for medical management s/p lumbar fusion and decompression: Postop day 1 DVT prophylaxis, pain management, PT OT, discharge plan will be as per ortho DM: We'll start home diabetic medication, continue insulin sliding scale HTN: stable, monitor on home meds Vertigo: no acute issues post-op Constipation, and currently on narcotic, start stool softener Continued [facility] stay due to: home environment unsafe for pt Discharge planning: home
[2016-11-19] MEDS ORDERED: DOCUSATE SODIUM 100 MG CAP PO ONE (09:45)
[2016-11-19 12:15] VITALS: BP 119/55; PULSE 86; TEMP 36.6; O2SAT 95
--- NOTE | 2016-11-19 14:05 | Pharmacy Progress Note ---
Glycemic: Assessment & Plan Date of Service Nov 19, 2016. Assessment & Plan Assessment * BSG's ranging 264-296 over the last 24 hours, likely steroid-induced. This is unacceptably high for a patient POD #1 * Despite steroids stopping and additional Lantus ~0.2 units/kg given this AM, will still tighten correction factor and carb ratio. Expect that this will be way too tight for long-term management, but need to get better control of BSG's HARSHIL. May loosen soon if/when BSG's drop considerably. * Additional Lantus administered this AM will also help to bring BSG's into range * Expect effects of dexamethasone to last for 24-48 hours after discontinuation (last dose 11/19 @ 1300) * Will continue two overnight BSG checks as the patient required ~10 units of insulin at both checks last night and BSG's were still not less than 250 mg/dL Plan * Basal insulin: No additional until can assess tomorrow AM * Correctional Insulin: Novolog Correction per scale ACHS Goal Range: Low 110 mg/dL - High 140 mg/dL Correction Factor: 10 mg/dL/unit * Prandial insulin: Per carb ratio of 1 unit per 4 grams CHO consumed Pharmacy will continue to monitor patient daily and write orders per [facility] inpatient glycemic control protocol. Thanks. * Please note that the plan above was derived based on current level of insulin resistance and hospital stress. These recommendations are appropriate for inpatient admission only. Plan of care upon discharge will need to be reassessed to avoid potential outpatient hypo/hyperglycemia.
[2016-11-19 15:07] VITALS: BP 150/83; PULSE 97; TEMP 37.1; O2SAT 96
[2016-11-19] MEDS: DOCUSATE SODIUM 100 MG CAP PO SCH (21:04)
[2016-11-19] MEDS: LISINOPRIL 5 MG TAB PO SCH (21:07)
[2016-11-19] MEDS: ATORVASTATIN 40 MG TAB PO SCH (21:24)
[2016-11-19] MEDS: DOCUSATE SODIUM/SENNA 50/8.6MG TAB PO SCH (21:25)
[2016-11-20 00:14] VITALS: BP 130/73; PULSE 91; TEMP 36.9; O2SAT 97
[2016-11-20] MEDS: INSULIN ASPART 100 UNITS/ML 3 ML PEN SC SCH ×6 (00:33→21:30)
[2016-11-20] MEDS: POLYETHYLENE (MIRALAX) 17 GM PACK PO SCH ×3 (05:38→18:03)
[2016-11-20 07:25] VITALS: BP 132/74; PULSE 93; TEMP 36.5; O2SAT 97
[2016-11-20] MEDS: ASPIRIN 81 MG ECTAB PO SCH (08:30)
[2016-11-20] MEDS: OXYCODONE HCL IR 5 MG TAB (IMMEDIATE RELEASE) PO PRN ×3 (08:31→21:36)
[2016-11-20] MEDS: DOCUSATE SODIUM 100 MG CAP PO SCH ×2 (08:31→21:23)
[2016-11-20] MEDS ORDERED: INSULIN GLARGINE SOLOSTAR 100 UNITS/ML 3 ML PEN SC ONE (09:00)
--- NOTE | 2016-11-20 11:50 | Pharmacy Progress Note ---
Glycemic: Assessment & Plan Date of Service Nov 20, 2016. Assessment & Plan Assessment * Patient responding better to tighter Novolog yesterday, but BSG's still elevated ranging 194-257 mg/dL. * Effects of dexamethasone likely still present, but dissipating. * AM BSG was the lowest it has been at 194 mg/dL. * Will very slightly loosen Novolog starting at breakfast today in anticipation of dissipating steroid effects * Patient will likely require additional significant loosening of Novolog soon when dexamethasone's effects are gone and/or dissipating further * Will continue a low-dose 0.1 units/kg dose of Lantus this AM. Hesitant to give more as patient's HbA1c indicates good control of BSG's on orals alone at home Plan * Basal insulin: Lantus 10 units SC x1 now * Correctional Insulin: Novolog Correction per scale ACHS Goal Range: Low 110 mg/dL - High 140 mg/dL Correction Factor: 15 mg/dL/unit * Prandial insulin: Per carb ratio of 1 unit per 5 grams CHO consumed Pharmacy will continue to monitor patient daily and write orders per [facility] inpatient glycemic control protocol. Thanks. * Please note that the plan above was derived based on current level of insulin resistance and hospital stress. These recommendations are appropriate for inpatient admission only. Plan of care upon discharge will need to be reassessed to avoid potential outpatient hypo/hyperglycemia.
--- NOTE | 2016-11-20 12:05 | Orthopedic Progress Note ---
Orthopedic Progress Note Date of Service Nov 20, 2016. 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
--- NOTE | 2016-11-20 13:31 | Progress Note ---
Subjective Date of Service: Nov 20, 2016. Subjective Pt evaluation today including: conversation w/ patient, conversation w/ family , physical exam, chart review, lab review, review of studies, review of inpatient medication list Doing well, out of bed to chair, eating lunch, family in the room, patient is pleasant Review of Systems Constitutional: No chills, No fatigue, No fever, No problem reported, No sweats , No weakness, No weight loss Eyes: No diplopia, No discharge, No eye pain, No redness, No worsening of vision ENT: No dental problems, No hearing loss, No nasal symptoms, No sore throat, No tinnitus, No trouble swallowing, No unusual epistaxis Respiratory: No cough, No dyspnea at rest, No dyspnea on exertion, No hemoptysis, No shortness of breath, No sputum, No wheezing Cardiac: No PND, No chest pain, No claudication, No edema, No orthopnea, No palpitations Abdomen: No constipation, No diarrhea, No nausea, No pain, No vomiting Musculoskeletal: No calf pain, No joint pain, No muscle pain, No swelling Female : No abnormal vaginal bleeding, No dysuria, No hematuria, No incontinence, No urinary frequency, No vaginal discharge Neurologic: No balance problems, No memory loss, No numbness/tingling, No paralysis, No vertigo, No weakness Psychiatric: No anhedonism, No anxiety, No depression symptoms, No insomnia, No substance abuse Heme: No abnormal bleeding/bruising, No clotting problems, No night sweats, No swollen lymph nodes Endo: No excessive thirst, No excessive urination, No fatigue Skin: No bleeding, No color change, No itch, No new/changing skin lesions, No rash Objective Vital Signs Date Time Temp Pulse Resp B/P Pulse Ox O2 Delivery O2 Flow Rate FiO2 11/20/16 08:10 Room Air 11/20/16 07:25 36.5 93 16 132/74 97 Room Air 11/20/16 00:20 Room Air 11/20/16 00:14 36.9 91 16 130/73 97 Room Air 11/19/16 15:55 Room Air 11/19/16 15:07 37.1 97 18 150/83 96 Room Air Physical Exam General Appearance: WD/WN, no apparent distress, + obese Eyes: normal inspection, PERRL, EOMI, sclerae normal ENT: normal ENT inspection, hearing grossly normal, pharynx normal Neck: supple, no adenopathy, thyroid normal, no JVD, no carotid bruits, trachea midline Respiratory/Chest: chest non-tender, lungs clear, normal breath sounds, no respiratory distress, no accessory muscle use Cardiovascular: regular rate, rhythm, no edema, no gallop, no JVD, no murmur Abdomen: normal bowel sounds, non tender, soft, no organomegaly, no pulsatile mass Extremities: normal range of motion, non-tender, normal inspection, no pedal edema, no calf tenderness, normal capillary refill, pelvis stable Neurologic/Psychiatric: rn ent II-XII nml as tested, no motor/sensory deficits, alert, normal mood/affect, oriented x 3 Skin: normal color, warm/dry, no rash Lymphatic: no adenopathy Laboratory Results Last 24 Hours Test 11/19/16 17:04 11/19/16 20:37 11/20/16 00:09 11/20/16 03:52 Bedside Glucose 220 mg/dl 257 mg/dl 236 mg/dl 202 mg/dl Test 11/20/16 08:07 11/20/16 12:07 Bedside Glucose 194 mg/dl 255 mg/dl Assessment and Plan 71 y/o F who was admitted on 11/18 s/p lumbar fusion and decompression. Hospitalist consulted for medical management s/p lumbar fusion and decompression: Postop day 2 DVT prophylaxis, pain management, PT OT, discharge plan will be as per ortho DM:started home diabetic medication, continue insulin sliding scale , checking HbA1c, most of her blood glucose is around 250, I devised her to follow-up with PCP HTN: stable, monitor on home meds Vertigo: no acute issues post-op Constipation, and currently on narcotic, start stool softener Continued [facility] stay due to: home environment unsafe for pt Discharge planning: home
[2016-11-20 15:02] VITALS: BP 114/67; PULSE 83; TEMP 36.7; O2SAT 94
[2016-11-20] MEDS: DOCUSATE SODIUM/SENNA 50/8.6MG TAB PO SCH (21:23)
[2016-11-20] MEDS: ATORVASTATIN 40 MG TAB PO SCH (21:24)
[2016-11-20] MEDS: LISINOPRIL 5 MG TAB PO SCH (21:27)
[2016-11-20 23:10] VITALS: BP 124/69; PULSE 88; TEMP 36.3; O2SAT 97
[2016-11-21] MEDS: POLYETHYLENE (MIRALAX) 17 GM PACK PO SCH ×3 (00:19→12:33)
[2016-11-21] MEDS ORDERED: INSULIN ASPART 100 UNITS/ML 3 ML PEN SC ONE (02:00)
[2016-11-21] MEDS: OXYCODONE HCL IR 5 MG TAB (IMMEDIATE RELEASE) PO PRN ×4 (03:18→21:09)
[2016-11-21 07:08] VITALS: BP 153/68; PULSE 87; TEMP 36.8; O2SAT 96
[2016-11-21] MEDS: INSULIN ASPART 100 UNITS/ML 3 ML PEN SC SCH ×4 (07:31→21:08)
[2016-11-21] MEDS: DOCUSATE SODIUM 100 MG CAP PO SCH ×2 (07:32→20:49)
[2016-11-21] MEDS: ASPIRIN 81 MG ECTAB PO SCH (07:32)
[2016-11-21] MEDS: METFORMIN HCL 500 MG TABCR PO SCH ×2 (07:35→18:08)
[2016-11-21 08:15] LABS: ESTIMATED AVERAGE GLUCOSE 171 mg/dl; HA1C FLAG Normal (Normal)
--- NOTE | 2016-11-21 08:20 | Anesthesiology Progress Note ---
Anesthesia Post Op Note Date & Time November 21, 2016 at 08:19 Vital Signs Vital Signs Past 12 Hours Date Time Temp Pulse Resp B/P Pulse Ox O2 Delivery O2 Flow Rate FiO2 11/21/16 07:08 36.8 87 20 153/68 96 Room Air 11/21/16 00:30 Room Air 11/20/16 23:10 36.3 88 20 124/69 97 Room Air Notes Mental Status: alert / awake / arousable, participated in evaluation Pt Amnestic to Procedure: Yes Nausea / Vomiting: adequately controlled Pain: adequately controlled Airway Patency, RR, SpO2: stable & adequate BP & HR: stable & adequate Hydration State: stable & adequate Anesthetic Complications: no major complications apparent
[2016-11-21] MEDS ORDERED: KETOROLAC TROMETHAMINE 15 MG/ML VIAL IV. STA (08:34)
[2016-11-21] MEDS ORDERED: KETOROLAC TROMETHAMINE 15 MG/ML VIAL IM PRN (08:45)
--- NOTE | 2016-11-21 10:19 | Pharmacy Progress Note ---
Glycemic: Assessment & Plan Date of Service November 21, 2016. Assessment & Plan ASSESSMENT: * POD#3, last dose of DXM was 11/19 afternoon. Hyperglycemic effects should be diminished at this point * Insulin regimen will need tapered now that pt condition improving and steroids d/c * Pt is maintained on oral antidiabetic agents as an outpatient * Oral agents are not recommended for inpatient use d/t drug interactions, changing PO intake, and difficulty titrating for acute hyper/hypoglycemia. ADA recommends re-initiating outpatient oral agents 1-2 days prior to discharge if/ when appropriate if they were held on admission. * Pt tolerating PO and renal function WNL. Reasonable to resume outpatient oral agents that do not induce hypoglycemia i.e. start metformin, hold glimepiride. Bolus insulin parameters will need tapered with the addition of oral agents. * A1c = 7.6% today. Adequate control based on age/co-morbidities. No changes needed to outpatient regimen PLAN: Begin transition to outpatient antidiabetic regimen. D/C basal insulin, taper bolus insulin, resume outpatient oral antidiabetic medications * Basal insulin: DISCONTINUE * Correctional Insulin: Novolog Correction per scale ACHS Goal Range: Low 110 mg/dL - High 140 mg/dL LOOSEN Correction Factor: 20 mg/dL/unit (was ordered at 15) * Prandial insulin: LOOSEN Per carb ratio of 1 unit per 7 grams CHO consumed (was ordered at 5) * Resume outpatient oral medication of metformin XR 1,000mg PO BIDM * Continue to hold glimepiride as this has a significant hypo risk with changing PO intake * Please note that the plan above was derived based on current level of insulin resistance and hospital stress. These recommendations are appropriate for inpatient admission only. Plan of care upon discharge will need to be reassessed to avoid potential outpatient hypo/hyperglycemia.
[2016-11-21] MEDS ORDERED: RXC5 PO (11:12)
--- NOTE | 2016-11-21 11:12 | Discharge Instructions ---
Discharge Instructions Date of Service November 21, 2016. Admission Reason for Admission: Lumbar Spinal Stenosis Discharge Discharge Diagnosis / Problem: stenosis Discharge Goals Goal(s): Improve function Activity Recommendations Activity Limitations: per Instructions/Follow-up section . Instructions / Follow-Up Instructions / Follow-Up ACTIVITY RECOMMENDATIONS: SELF CARE INSTRUCTIONS AFTER THORACIC/LUMBAR FUSIONS 1. You may walk to your tolerance. It is good exercise for your legs and back. Expect some back and intermittent leg aches and pains. 2. You may perform "counter-top" level activities (make a sandwich, eliazar with a project, etc.). 3. No bending or lifting of more than 10 pounds or back twisting of any nature (roll like a log when turning in bed). 4. You may ride in a car for 20-30 minutes at a time. No driving until after your first visit with your doctor. 5. Frequent changes of position and restricting sitting to 30 minutes at a time will help limit the amount of back spasms and stiffness you may experience. 6. You may discontinue the use of ambulatory aids (cane, crutches, etc.) once your strength and confidence allow. 7. You may clinical fellow the shower and let water strike your incision when you arrive home at least once daily. Do not take a tub bath, sit in a hot tub or go into a swimming pool until after your first recheck in the office. SPECIAL CARE INSTRUCTIONS: VERY IMPORTANT TO READ AND REVIEW A. Your surgical incision has been closed with a cosmetic suture under the skin that will dissolve in about 6 weeks. In 14 days, you can use a pair of clean scissors and cut the suture that is left outside of the skin at the ends of your incision. 1. The small skin tapes can be removed 7 days after surgery if they have not fallen off by that point. 2. You may keep the wound open to air as much as possible to promote healing after post-op day number 5 unless told otherwise by your doctor. 3. If you think the wound looks like it is becoming infected (redness or worsening drainage) and/or you are experiencing fever, chill or worsening back pain and muscle spasms, contact the office so that we may evaluate you as soon as possible. B. Complications are uncommon, but please contact us if you have any signs or symptoms of: 1. wound infection (fever higher than 102.5 degrees F, redness, separation of wound, drainage, or increasing pain from the incision) 2. blood clots in legs (pain, swelling, redness and warmth in legs) 3. urinary tract infection (fever higher than 102.5 degrees F, burning upon urination or increased frequency of urination) 4. nerve problems (inability to walk on your toes or heels, numbness, loss of bowel or bladder control) 5. any other symptoms that concern you C. Please call the office at if you have any concerns or questions about your operation or recovery. D. No smoking! Smoking drastically decreases the chance of a solid fusion. E. Do not take any anti-inflammatory medications (Indocin, Advil, Motrin, Aspirin, Naprosyn, etc.) as these may inhibit the chance of a solid fusion. Tylenol is okay to take for pain. MANAGING PAIN AFTER SPINAL SURGERY 1. Narcotic medication is intended for short-term use and will be provided for surgical pain. Surgical pain usually lasts for a period of 4-6 weeks. Narcotic medication includes Percocet, Vicodin, Darvocet, Tylenol #3 or Lortab. 2. Longer-term pain is more appropriately treated with non-narcotic medication such as Tylenol ES. 3. Muscle spasm is not appropriately treated with narcotics. Muscle relaxers such as Soma, Flexeril or Skelaxin can be used along with Tylenol ES. 4. Remember that we all live with some "aches and pains". This is not unusual or uncommon after an injury or as we get older. a. Back pain is expected and may include muscle spasms for 4 to 6 weeks after surgery. The pain should gradually improve. If the pain worsens for no apparent reason, please contact the office. b. Intermittent leg pain may also be experienced and should not be concerned about unless it worsens for no apparent reason. If so, please contact the office. 5. We will provide appropriate medication within the normal guidelines of their prescribed use. We will also be very cautious and aware of potential abuse and extended duration of patients' medication needs. a. Pain medications are for your comfort and to assist with sleep and rest so that the tissue can heal. They are not provided in order to return to normal activity and should not be used through the day. To do so or worsening pain at night can result from ongoing tissue damage and development of tolerance to the prescribed medicine. 6. Please allow 2-3 days to process refills. Prescriptions will not be mailed but must be picked up at the office. FOLLOW UP VISIT: Keep your scheduled follow-up appointment. Any questions, please call the office at . Current Hospital Diet Patient's current hospital diet: Diabetes Type 2 Diet Discharge Diet Recommended Diet: Regular Diet Procedures Procedures Performed: L4-L5, L5-S1 Lumbar Laminectomy, Decompression; L4-L5, L5-S1 Posterior Fusion; Bone Morphogenetic Protein; with Use of Aubree Pending Studies Studies pending at discharge: no Laboratory Results Hemoglobin A1c Test 11/21/16 06:30 Range/Units Estimated Average Glucose 171 mg/dl Hemoglobin A1c 7.6 H 4.5-5.6 % Medical Emergencies . Who to Call and When: Medical Emergencies: If at any time you feel your situation is an emergency, please call 911 immediately. . Non-Emergent Contact Non-Emergency issues call your: Primary Care Provider . "Provider Documentation" section prepared by Eulalio Salazar. . VTE Core Measure Inpt VTE Proph given/why not?: Ac Morton, SCD's
--- NOTE | 2016-11-21 11:41 | Progress Note ---
Subjective Date of Service: November 21, 2016. Subjective Pt evaluation today including: conversation w/ patient, physical exam, lab review, review of inpatient medication list Pain: increased pain today after twisting last night PO Intake: adequate Voiding: no voiding problems patient was doing well until she reached and twisted last night and heard a "pop " required IV narcotics this AM for relief was planning on going to rehab today but placed on hold now eating and drinking well passing flatus, no BM yet but no abdominal pain or bloating no chest pain, no shortness of breath Review of Systems Abdomen: + constipation Musculoskeletal: + joint pain (back) All Other Systems: Reviewed and Negative Medications Current Inpatient Medications Medications (Trade) Dose Ordered Sig/Marcello Route Start Time Stop Time Status Last Admin Dose Admin Promethazine HCl/ Sodium Chloride (Phenergan Inj/ Nss 50ml) 50.5 ml @ 202 mls/hr Q6H PRN IV 11/18/16 14:00 12/18/16 13:59 Ondansetron HCl (Zofran Inj) 4 mg Q6H PRN IV 11/18/16 14:00 12/18/16 13:59 Metoclopramide HCl (Reglan Inj) 10 mg Q6H PRN IV 11/18/16 14:00 12/18/16 13:59 Lorazepam 0.5 mg 0.5 mg Q8H PRN PO 11/18/16 14:00 12/18/16 13:59 Lorazepam/Syringe (Ativan Inj/ Syringe) 0.25 ml @ 1 mls/min Q8H PRN IV 11/18/16 14:00 12/18/16 13:59 Pneumococcal Polysaccharide Vaccine 1 ea PRN PRN N/A 11/18/16 14:00 12/18/16 13:59 Influenza Virus Vacc Triv Types A&B 1 ea PRN PRN N/A 11/18/16 14:00 12/18/16 13:59 Polyethylene (Miralax Powder Packet) 17 gm Q6 PO 11/20/16 06:00 12/20/16 05:59 11/21/16 05:55 17 GM Bisacodyl (Dulcolax Supp) 10 mg DAILY PRN SC 11/18/16 14:00 12/18/16 13:59 Magnesium Hydroxide (Milk Of Magnesia Susp) 30 ml DAILY PRN PO 11/18/16 14:00 12/18/16 13:59 Hydromorphone HCl (Dilaudid Inj) 0.5-1mg prn moder... Q3H PRN IV 11/19/16 06:00 12/03/16 05:59 Oxycodone HCl (Roxicodone Immediate Rel Tab) 5-10mg prn moderate to sev... Q4H PRN PO 11/19/16 06:00 12/03/16 05:59 11/21/16 07:32 10 MG Acetaminophen 1000 mg 1,000 mg Q8H PRN PO 11/18/16 14:00 12/18/16 13:59 11/21/16 00:39 1,000 MG Acetaminophen (Ofirmev Iv) 100 ml @ 400 mls/hr Q8H PRN IV 11/18/16 14:00 12/18/16 13:59 Naloxone HCl (Narcan Inj) 0.1 mg Q5M PRN IV 11/18/16 14:00 12/18/16 13:59 Senna/Docusate Sodium (Senokot S Tab) 2 tab HS PO 11/18/16 21:00 12/18/16 20:59 11/20/16 21:23 2 TAB Sodium Biphosphate/ Sodium Phosphate (Fleet Enema) 132 ml ONE PRN SC 11/18/16 14:00 12/18/16 13:59 Hydroxyzine HCl (Vistaril Tab) 25 mg Q8H PRN PO 11/18/16 14:00 12/18/16 13:59 Al Hydroxide/Mg Hydroxide (Maalox Susp) 30 ml Q6H PRN PO 11/18/16 14:00 12/18/16 13:59 Famotidine (Pepcid Tab) 20 mg Q12 PRN PO 11/18/16 14:00 12/18/16 13:59 Diphenhydramine HCl (Benadryl Cap) 25 mg Q6H PRN PO 11/18/16 14:00 12/18/16 13:59 Aspirin (Ecotrin Tab) 81 mg QAM PO 11/19/16 09:00 12/19/16 08:59 11/21/16 07:32 81 MG Atorvastatin Calcium (Lipitor Tab) 40 mg QPM PO 11/18/16 21:00 12/18/16 20:59 11/20/16 21:24 40 MG Glimepiride (Amaryl Tab) 2 mg BIDM PO 11/18/16 17:45 12/18/16 17:59 Future hold Lisinopril (Zestril Tab) 5 mg QPM PO 11/18/16 21:00 12/18/16 20:59 11/20/16 21:27 5 MG Miscellaneous Information (Consult Glycemic Management Pharmacy) 1 ea UD PRN N/A 11/18/16 16:30 12/18/16 16:29 Insulin Aspart (novoLOG ASPART) SLIDING SCALE G... ACHS SC 11/18/16 17:15 12/18/16 17:14 11/21/16 07:31 8 UNITS Glucose (Glucose 40% Gel) 15-30 GRAMS 15 GRAMS... UD PRN PO 11/18/16 15:15 12/18/16 15:14 Glucose (Glucose Chew Tab) 4-8 Tablets 4 Tabl... UD PRN PO 11/18/16 15:15 12/18/16 15:14 Dextrose (Dextrose 50% 50ML Syringe) 25-50ML OF 50% DW IV FOR... UD PRN IV 11/18/16 15:15 12/18/16 15:14 Glucagon (Glucagon Inj) 1 mg UD PRN SQ 11/18/16 15:15 12/18/16 15:14 Docusate Sodium (coLACE CAP) 100 mg BID PO 11/19/16 21:00 12/19/16 20:59 11/21/16 07:32 100 MG Metformin HCl (Glucophage Extended Rel Tab) 1,000 mg BIDM PO 11/21/16 08:30 12/21/16 08:29 11/21/16 07:35 1,000 MG Ketorolac Tromethamine (Toradol Inj) 15 mg Q6H PRN IM 11/21/16 08:45 11/26/16 08:44 Objective Vital Signs Date Time Temp Pulse Resp B/P Pulse Ox O2 Delivery O2 Flow Rate FiO2 11/21/16 07:30 Room Air 11/21/16 07:08 36.8 87 20 153/68 96 Room Air 11/21/16 00:30 Room Air 11/20/16 23:10 36.3 88 20 124/69 97 Room Air 11/20/16 16:10 Room Air 11/20/16 15:02 36.7 83 16 114/67 94 Room Air Physical Exam General Appearance: WD/WN, no apparent distress Eyes: normal inspection, EOMI, sclerae normal ENT: normal ENT inspection, hearing grossly normal, pharynx normal Neck: supple, no adenopathy, no JVD, trachea midline Respiratory/Chest: chest non-tender, lungs clear, normal breath sounds, no respiratory distress, no accessory muscle use Cardiovascular: regular rate, rhythm, no edema, no gallop, no JVD, no murmur Abdomen: normal bowel sounds, non tender, soft, no organomegaly Extremities: no pedal edema, no calf tenderness, pelvis stable, + pertinent finding (low back pain, decreased ROM) 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 Hospitalist consulted for medical management s/p lumbar fusion and decompression: Postop day 3 DVT prophylaxis, pain management, PT OT, discharge plan will be as per ortho planning on [facility], possibly tomorrow increased pain overnight after reaching and twisting, ortho aware DM: started home diabetic medication, continue insulin sliding scale , checking HbA1c - 7.6 continue home regimen on transfer to [facility] HTN: stable, monitor on home meds Vertigo: no acute issues post-op Constipation: + flatus, no BM yet, eating well continue oral hydration and increase activity will sign off currently, clear to d/c tomorrow if pain controlled Continued [facility] stay due to: home environment unsafe for pt Discharge planning: home
--- NOTE | 2016-11-21 11:51 | PROGRESS NOTE ---
DATE: 11/21/2016 SUBJECTIVE: ____ back pain today. She would not take any pain medication. Yesterday, ____ limiting to her. Vital signs are stable. T-max 36.8. CRIS drained 60 mL. No bowel movement as of yet, but positive bowel sounds. Positive flatus ____ OBJECTIVE: On exam, the patient is up and ambulatory. She has some tenderness to the lumbosacral junction. ASSESSMENT: Status post lumbar decompression and fusion. PLAN: At this time we will continue with some pain management today, consult social services technician for rehab placement and we will obtain an x-ray to assess her instrumentation.
--- NOTE | 2016-11-21 14:16 | DIAGNOSTIC IMAGING REPORT ---
LUMBAR SPINE 2 OR 3 VIEWS CLINICAL HISTORY: post op COMPARISON STUDY: 09/16/2015 FINDINGS: Evidence for low lumbar laminectomy and fusion. Level surgically involved L5, L4, and S1. Surgical drains in position. IMPRESSION: Low lumbar laminectomy and fusion Electronically signed by: Sean Benjamin M.D. 11/21/2016 2:14 PM Dictated Date/Time: 11/21/2016 2:14 PM
[2016-11-21] MEDS ORDERED: NURSING VERBAL MED ORDER ONE (14:45)
[2016-11-21 16:34] VITALS: BP 146/80; PULSE 89; TEMP 36.9; O2SAT 97
[2016-11-21] MEDS: ALUMINUM/MAGNESIUM SUSP 30 ML UDC PO PRN (18:04)
[2016-11-21] MEDS: DOCUSATE SODIUM/SENNA 50/8.6MG TAB PO SCH (20:49)
[2016-11-21] MEDS: ATORVASTATIN 40 MG TAB PO SCH (20:51)
[2016-11-21] MEDS: LISINOPRIL 5 MG TAB PO SCH (20:52)
[2016-11-21 23:15] VITALS: BP 117/69; PULSE 91; TEMP 36.9; O2SAT 97
[2016-11-22] MEDS: KETOROLAC TROMETHAMINE 15 MG/ML VIAL IV. PRN ×2 (00:26→07:24)
[2016-11-22 06:43] VITALS: BP 120/71; PULSE 84; TEMP 36.5; O2SAT 94
[2016-11-22] MEDS: METFORMIN HCL 500 MG TABCR PO SCH (07:08)
[2016-11-22] MEDS: ASPIRIN 81 MG ECTAB PO SCH (07:08)
[2016-11-22] MEDS: DOCUSATE SODIUM 100 MG CAP PO SCH (07:09)
[2016-11-22] MEDS: OXYCODONE HCL IR 5 MG TAB (IMMEDIATE RELEASE) PO PRN ×2 (07:24→14:07)
[2016-11-22] MEDS: INSULIN ASPART 100 UNITS/ML 3 ML PEN SC SCH ×2 (07:29→12:39)
--- NOTE | 2016-11-22 08:38 | DISCHARGE SUMMARY ---
PRINCIPAL DIAGNOSIS: Spinal stenosis. HOSPITAL COURSE FOLLOWS: On November 18, the patient underwent lumbar decompression and fusion, tolerated this well and taken to the orthopedic floor postoperatively. Postop day #1, she was up and ambulatory, progressed throughout the weekend. CRIS drain decreased appropriately and subsequently discharged to rehab facility. Discharge orders and instructions found on the chart for further review.
[2016-11-22] MEDS ORDERED: GLIMEPIRIDE 2 MG TAB PO SCH (12:30)
[2016-11-22] MEDS: ALUMINUM/MAGNESIUM SUSP 30 ML UDC PO PRN (12:36)
[2016-11-22 14:20] VITALS: BP 120/71; PULSE 84; TEMP 36.5; O2SAT 94
[2017-02-23] MEDS ORDERED: TYLER650 PO (11:03)
[2017-02-23] MEDS ORDERED: LISI10TA PO (11:03)
[2017-02-23] MEDS ORDERED: LPT10 PO (11:03)
[2017-02-23] MEDS ORDERED: MULT-506 PO (11:03)
[2017-02-23] MEDS ORDERED: OXYC1CAP5 PO (11:04)
[2017-06-02] MEDS ORDERED: GLC/500 PO (14:10)
== END 2016-11-22 15:24 | DRG 460 ==
LOC: ENRESERVTM → ENRESERVDT → C.ACU 10:27 → C.MSN 13:52
PROVIDERS: ADMIT Orthopaedic Surgery Orthopaedic Surgery of the Spine; ATTEND Orthopaedic Surgery Orthopaedic Surgery of the Spine
PROC: 3E0V0GB Introduction of Recombinant Bone Morphogenetic Protein into Bones, Open Approach (ICD-10-PCS; principal; 2016-11-18 12:15)
PROC: 0SG00Z1 (ICD-10-PCS; principal; 2016-11-18 12:15)
PROC: 0SG30Z1 (ICD-10-PCS; principal; 2016-11-18 12:15)
DX: M48.00 Spinal stenosis, site unspecified (principal); Z68.42 Body mass index [BMI] 45.0-49.9, adult; E55.9 Vitamin D deficiency, unspecified; I10 Essential (primary) hypertension; E11.9 Type 2 diabetes mellitus without complications; Z87.891 Personal history of nicotine dependence; E66.9 Obesity, unspecified; M43.16 Spondylolisthesis, lumbar region; M43.10 Spondylolisthesis, site unspecified; K59.00 Constipation, unspecified; R42 Dizziness and giddiness; E78.5 Hyperlipidemia, unspecified; Z79.82 Long term (current) use of aspirin; Z79.899 Other long term (current) drug therapy

== ENCOUNTER 2016-11-24 17:23 | Observation (INO) | payer BC, OTHER ==
[~2016-11-24] VITALS: Ht 160 cm; Wt 116.6 kg
[~2016-11-24 17:23] MED LIST changes: -CEFAZOLIN 2000 MG/60 ML D5W IV SCH; -FENTANYL CITRATE INJ 50 MCG/1 ML 2 ML VIAL ONE; -LACTATED RINGER'S 1000ML 1,000 ML IV SCH; +RXC5 PO
--- NOTE | 2016-11-24 17:43 | EMERGENCY ROOM VISIT NOTE ---
History Report prepared by Sharmaine: Ramandeep Rea Under the Supervision of: Dr. Rell Hamilton M.D. First contact with patient: 17:26 Stated Complaint: ILLNESS History of Present Illness The patient is a 71 year old female who presents to the Emergency Room with complaints of intermittent neurological symptoms throughout the day today. The patient is currently at [facility] and is 3 days post lumbar spinal fusion. Per EMS, the patient had slurring of speech this morning. The patient's daughter -in-law came to visit her this afternoon and noticed slurred speech as well. EMS states that she had some slurred speech in the ambulance ride en route to the ED. The patient is taking oxycodone for pain and has had 30 mg of oxycodone today. Other than her slurred speech, the patient has no complaints at this time. She denies numbness, weakness, chest pain, shortness of breath, abdominal pain, fever, and any blood thinners. She is diabetic and her BSG was 123 FNP. The patient has a personal history of stroke. She had right sided facial droop and right arm weakness with her previous stroke. Source of History: patient, jail notes, EMS Onset: earlier today Position: other (neurologocial) Quality: other (slurred speech) Timing: intermittent Associated Symptoms: No SOB, No abdominal pain, No chest pain, No fevers, No numbness, No weakness Review of Systems See HPI for pertinent positives & negatives. A total of 10 systems reviewed and were otherwise negative. Past Medical & Surgical Medical Problems: (1) Altered mental status (2) Diabetes (3) Hypertension (4) Lumbar stenosis with neurogenic claudication (5) MGUS (monoclonal gammopathy of unknown significance) Surgical Problems: (1) Status post lumbar surgery Old medical records were reviewed. Nurse's notes were reviewed and I agree with. Family History Heart disease Hypertension Social History Smoking Status: Former Smoker Alcohol Use: none Drug Use: none Marital Status: Housing Status: lives with family Occupation Status: unemployed Current/Historical Medications Scheduled Aspirin (Aspirin Chewable), 81 MG PO QAM Atorvastatin (Lipitor), 40 MG PO QPM Cholecalciferol (Vitamin D3), 1 CAP PO QPM Docusate Sodium (Docusate Sodium), 100 MG PO BID Glimepiride (Amaryl), 2 MG PO BID Lisinopril (Zestril), 5 MG PO QPM Metformin Hcl (Glucophage *), 1,000 MG PO BID Triamcinolone Acetonide (Topic (Triamcinolone Acet 0.025%), 1 APPLN TOP PRN [Nystatin Powder], 1 DOSE TOP PRN Scheduled PRN Acetaminophen (Tylenol), 1,000 MG PO Q8 PRN for Pain Insulin Aspart (Novolog Flexpen), 1 DOSE SC QID PRN for SLIDING SCALE Oxycodone HCl (Oxycodone HCl), 5-10 MG PO Q4H PRN for Moderate - severe pain Allergies Coded Allergies: No Known Allergies (Verified , 11/24/16) Physical Exam Vital Signs Date Time Temp Pulse Resp B/P Pulse Ox O2 Delivery O2 Flow Rate FiO2 11/24/16 20:08 37.0 97 20 165/75 Room Air 11/24/16 19:15 91 15 155/56 95 Room Air 11/24/16 18:07 87 11/24/16 17:30 98 Room Air 11/24/16 17:30 36.6 88 20 155/56 98 Room Air Physical Exam General: Well developed well nourished non-ill appearing older female in no acute distress, breathing comfortably on room air. Normal speech HEENT: Normal cephalic atraumatic. Pupils are equal round and reactive to light. Extraocular movements are intact. Oropharynx is pink with moist mucous membranes. No swelling of the mouth lips or tongue. Speech is mildly slurred but no trouble saying words. Neck: Supple with a midline trachea. No meningeal signs or stiffness, no JVD or bruits. No Stridor. Chest: Clear to auscultation bilaterally. No wheezes or rhonchi. No increased work of breathing. Heart: regular rate and rhythm. Abdomen: Soft nontender, nondistended without rebound guarding or rigidity. Extremities: No cyanosis clubbing or edema. No calf tenderness or assymetry Spine/Back. She has a large bandage from her incision. No CVA tenderness Skin: Good turgor without rashes. Neurologic exam: Cranial nerves two through 12 are intact. Motor and sensation are intact and symmetrical throughout. Medical Decision & Procedures ER Provider Diagnostic Interpretation: Radiology results as stated below per my review and radiologist interpretation: HEAD CT NONCONTRAST CT DOSE: 786.26 mGy.cm HISTORY: Mental status change. eval for CVA, ICH TECHNIQUE: Multiaxial CT images of the head were performed without the use of intravenous contrast. Comparison: 03/02/2014 Findings: The paranasal sinuses and mastoid air cells are clear. Stable pituitary macroadenoma. This has been described on prior MRI of the brain reports. Heart density characteristics otherwise unremarkable. There is no acute intracranial hemorrhage. There is no midline shift. Impression: Chronic change. No acute process. Electronically signed by: Sean Benjamin M.D. 11/24/2016 6:53 PM Dictated Date/Time: 11/24/2016 6:51 PM CHEST ONE VIEW PORTABLE CLINICAL HISTORY: CHEST PAIN dyspnea COMPARISON STUDY: 11/03/2016 FINDINGS: Moderate cardiomegaly. Early congestive failure. No focal infiltrate. IMPRESSION: Moderate cardiomegaly. Early congestive failure Electronically signed by: Sean Benjamin M.D. 11/24/2016 5:56 PM Dictated Date/Time: 11/24/2016 5:55 PM Laboratory Results 11/24/16 17:09 Red Blood Count 3.24, Mean Corpuscular Volume 91.7, Mean Corpuscular Hemoglobin 29.6, Mean Corpuscular Hemoglobin Concent 32.3, Mean Platelet Volume 9.3 11/24/16 17:37 Test 11/24/16 17:09 11/24/16 17:37 11/24/16 18:05 11/24/16 18:13 White Blood Count 5.93 K/uL (4.8-10.8) Red Blood Count 3.24 M/uL (4.2-5.4) Hemoglobin 9.6 g/dL (12.0-16.0) Hematocrit 29.7 % (37-47) Mean Corpuscular Volume 91.7 fL (80-100) Mean Corpuscular Hemoglobin 29.6 pg (25-34) Mean Corpuscular Hemoglobin Concent 32.3 g/dl (32-36) Platelet Count 171 K/uL (130-400) Mean Platelet Volume 9.3 fL (7.4-10.4) RDW Standard Deviation 47.4 fL (36.4-46.3) RDW Coefficient of Variation 14.2 % (11.5-14.5) Neutrophils % (Manual) 70.5 % Lymphocytes % (Manual) 19.1 % Monocytes % (Manual) 6.1 % Eosinophils % (Manual) 4.3 % Neutrophils # (Manual) 4.18 K/uL (1.4-6.5) Total Absolute Neutrophils 4.18 K/uL (1.4-6.5) Lymphocytes # (Manual) 1.13 K/uL (1.2-3.4) Total Absolute Lymphocytes 1.13 K/uL (1.2-3.4) Monocytes # (Manual) 0.36 K/uL (0.11-0.59) Eosinophils # (Manual) 0.25 K/uL (0-0.5) Red Blood Cell Morphology Unremarkable Prothrombin Time 11.6 SECONDS (9.0-12.0) Prothromb Time International Ratio 1.1 (0.9-1.1) Activated Partial Thromboplast Time 25.6 SECONDS (21.0-31.0) Partial Thromboplastin Ratio 1.0 Anion Gap 8.0 mmol/L (3-11) Est Creatinine Clear Calc Drug Dose 70.6 ml/min Estimated GFR () 78.8 Estimated GFR (Non- 68.0 BUN/Creatinine Ratio 33.8 (10-20) Calcium Level 8.6 mg/dl (8.5-10.1) Total Bilirubin 0.8 mg/dl (0.2-1) Direct Bilirubin 0.2 mg/dl (0-0.2) Aspartate Amino Transf (AST/SGOT) 27 U/L (15-37) Alanine Aminotransferase (ALT/SGPT) 29 U/L (12-78) Alkaline Phosphatase 58 U/L (45-117) Total Protein 6.0 gm/dl (6.4-8.2) Albumin 2.5 gm/dl (3.4-5.0) Lipase 232 U/L (73-393) Urine Color YELLOW Urine Appearance CLEAR (CLEAR) Urine pH 5.0 (4.5-7.5) Urine Specific [place] 1.010 (1.000-1.030) Urine Protein NEG (NEG) Urine Glucose (UA) NEG (NEG) Urine Ketones NEG (NEG) Urine Occult Blood NEG (NEG) Urine Nitrite NEG (NEG) Urine Bilirubin NEG (NEG) Urine Urobilinogen NEG (NEG) Urine Leukocyte Esterase NEG (NEG) Bedside Troponin I 0.030 ng/ml (0-0.045) Test 5/4/17 18:42 Bedside Lactic Acid Venous 2.07 mmol/L (0.90-1.70) Laboratory studies as stated above per my review. ECG Indication: altered mental status Rate (beats per minute): 92 Rhythm: normal sinus Findings: LAFB, RBBB, other (short OR interval) Comparison ECG Date: 11/03/16 Change: no significant change ED Course 1725: Past medical records reviewed. The patient was evaluated in room C5, and a complete history and physical examination were performed. 1928: I reassessed the patient at this time. She is resting comfortably. I discussed the results and treatment plan with the patient. I answered all pertaining questions that she had. She expressed understanding and verbalized agreement. 1940: I spoke with Dr. Becerra. We discussed the patients results and treatment plan. The patient will be evaluated by the [facility] for further management. Medical Decision Differential diagnoses includes medication side effect, infection, sepsis, dehydration, CVA, electrolyte or metabolic abnormality. This patient comes in as described above. She was placed in room C5. She was sent over after having some slurred speech which started this morning. It comes and goes she has been taking a lot of pain medications with OxyIR. She has no other neurologic deficits. She looks well on exam. She is alert and oriented 3 . She's not confused . She is afebrile here they checked a blood sugar was normal. IV access established and multiple blood tests was obtained include blood cultures also did a CAT scan and EKG. She was reassessed frequently. She has remained stable. CAT scan of her head was unremarkable. EKG does not suggest acute coronary syndrome or arrhythmia. Her troponin is not elevated. Urinalysis does not suggest a UTI. She has nothing to suggest significant electrolyte or metabolic abnormalities. Her lactic acid is mildly elevated just above 2 however I find no evidence of sepsis at this point. I think most likely this is from medications and I did talk to the family at length we are can observe her overnight in the hospital for further treatment and evaluation to continue rule out other etiologies such as central neurologic or infection. I did consult Dr. Orozco who saw the patient ER and will admit her for these measures. Consults Time Called: 1934 Consulting Physician: Dr. Becerra Returned Call: [address] Becerra. We discussed the patients results and treatment plan. The patient will be evaluated by the [facility] for further management. Impression Primary Impression: Altered mental status Additional Impression: Slurred speech Scribe Attestation The scribe's documentation has been prepared under my direction and personally reviewed by me in its entirety. I confirm that the note above accurately reflects all work, treatment, procedures, and medical decision making performed by me. Departure Information Dispostion Being Evaluated By Hospitalist Referrals Bee De La Torre M.D. (PCP) Problem Qualifiers Primary Impression: Altered mental status Altered mental status type: unspecified Qualified Codes: R41.82 - Altered mental status, unspecified
[2016-11-24] MEDS ORDERED: NVLGI/PEN SC (17:44)
[2016-11-24] MEDS ORDERED: DOCU100C31 PO (17:44)
[2016-11-24] MEDS ORDERED: ACET-1256 PO (17:46)
[2016-11-24 17:48] LABS: HEMATOCRIT 29.7 % (37-47); MEAN CELL VOLUME 91.7 fL (80-100); MEAN CORPUSCULAR HEMOGLOBIN 29.6 pg (25-34); MEAN CORPUSCULAR HGB CONC 32.3 g/dl (32-36); MEAN PLATELET VOLUME 9.3 fL (7.4-10.4); PLATELET COUNT 171 K/uL (130-400); RED BLOOD COUNT 3.24 M/uL (4.2-5.4); WHITE BLOOD COUNT 5.93 K/uL (4.8-10.8)
--- NOTE | 2016-11-24 17:58 | DIAGNOSTIC IMAGING REPORT ---
CHEST ONE VIEW PORTABLE CLINICAL HISTORY: CHEST PAIN dyspnea COMPARISON STUDY: 11/03/2016 FINDINGS: Moderate cardiomegaly. Early congestive failure. No focal infiltrate. IMPRESSION: Moderate cardiomegaly. Early congestive failure Electronically signed by: Sean Benjamin M.D. 11/24/2016 5:56 PM Dictated Date/Time: 11/24/2016 5:55 PM
[2016-11-24 18:01] LABS: INR 1.1 (0.9-1.1); PROTHROMBIN TIME (PATIENT) 11.6 SECONDS (9.0-12.0)
[2016-11-24 18:06] LABS: BUN/CREATININE RATIO 33.8 (10-20); CALCIUM 8.6 mg/dl (8.5-10.1); CREATININE 0.85 mg/dl (0.60-1.20); POTASSIUM 5.1 mmol/L (3.5-5.1)
[2016-11-24 18:11] LABS: COMPLETE YES; EOSINOPHIL % 4.3 %; LYMPH ABS # 1.13 K/uL (1.2-3.4); LYMPHOCYTE % 19.1 %; NEUTROPHILS % 70.5 %
[2016-11-24 18:24] LABS: URINE APPEARANCE CLEAR (CLEAR); URINE BILIRUBIN NEG (NEG); URINE COLOR YELLOW; URINE NITRITE NEG (NEG); UROBILINOGEN NEG (NEG)
[2016-11-24 18:27] LABS: MANUAL MICROSCOPIC REQUIRED? NO; REVIEW REQ? NO
--- NOTE | 2016-11-24 18:55 | DIAGNOSTIC IMAGING REPORT ---
HEAD CT NONCONTRAST CT DOSE: 786.26 mGy.cm HISTORY: Mental status change. eval for CVA, ICH TECHNIQUE: Multiaxial CT images of the head were performed without the use of intravenous contrast. Comparison: 03/02/2014 Findings: The paranasal sinuses and mastoid air cells are clear. Stable pituitary macroadenoma. This has been described on prior MRI of the brain reports. Heart density characteristics otherwise unremarkable. There is no acute intracranial hemorrhage. There is no midline shift. Impression: Chronic change. No acute process. Electronically signed by: Sean Benjamin M.D. 11/24/2016 6:53 PM Dictated Date/Time: 11/24/2016 6:51 PM
[2016-11-24 20:08] VITALS: BP 165/75; PULSE 97; TEMP 37; Ht 160 cm; Wt 116.6 kg
[2016-11-24] MEDS ORDERED: NITROGLYCERIN 0.4 MG SL PER TAB CHARGE SL PRN (21:00)
[2016-11-24] MEDS ORDERED: NYSTATIN POWDER 15GM BTL EXT PRN (21:00)
[2016-11-24] MEDS ORDERED: GLUCOSE 10 TABS/TUBE PO PRN (21:00)
[2016-11-24] MEDS ORDERED: GLUCAGON FOR INJ 1 MG VIAL SQ PRN (21:00)
[2016-11-24] MEDS ORDERED: ONDANSETRON INJ 2 MG/ML 2 ML VIAL IV PRN (21:00)
[2016-11-24] MEDS ORDERED: ACETAMINOPHEN 325 MG TAB PO PRN (21:00)
[2016-11-24] MEDS ORDERED: LISINOPRIL 5 MG TAB PO SCH (21:00)
[2016-11-24] MEDS ORDERED: ATORVASTATIN 20 MG TAB PO SCH (21:00)
[2016-11-24] MEDS ORDERED: DEXTROSE 50% 50 ML SYR IV PRN (21:00)
[2016-11-24] MEDS ORDERED: GLUCOSE 40% GEL 15 GM TUBE PO PRN (21:00)
[2016-11-24] MEDS: SODIUM CHLORIDE 0.9% 1000ML 1,000 ML IV SCH (21:37)
[2016-11-24] MEDS ORDERED: IV FLUIDS COMPLETED PRN (22:00)
[2016-11-24] MEDS: INSULIN ASPART 100 UNITS/ML 3 ML PEN SC SCH (22:01)
[2016-11-24] MEDS: DOCUSATE SODIUM 100 MG CAP PO SCH (22:01)
--- NOTE | 2016-11-24 23:42 | History and Physical ---
History & Physical Date & Time of Service: November 24, 2016 at 23:42 Chief Complaint: Altered Mental Status, Status Post Lumbar Surgery Primary Care Physician: Bee De La Torre M.D. History of Present Illness Source: patient, family The patient is a 71-year-old female who presents to the emergency department with altered mental state and slurred speech. The patient was admitted at [facility] from November 18 through November 22 for lumbar surgery, and was then transferred to [facility] for rehabilitation. The patient presently taking oxycodone for pain has had a total of 30 mg of oxycodone today prior to arrival. The patient has a history of a previous stroke at which time she had right-sided facial droop and right arm weakness which did resolve completely. She has no additional symptoms today other than the slurred speech. She does report that her mouth is very dry. Past Medical/Surgical History Medical Problems: (1) Diabetes Status: Chronic (2) Hypertension Status: Chronic (3) MGUS (monoclonal gammopathy of unknown significance) Status: Chronic Family History Heart disease Hypertension Social History Smoking Status: Former Smoker Smokeless Tobacco Use: No Alcohol Use: socially Drug Use: none Marital Status: Housing status: lives with family Occupational Status: unemployed Immunizations History of Influenza Vaccine: No History of Tetanus Vaccine?: Yes History of Pneumococcal: Yes History of Hepatitis B Vaccine: No Multi-Drug Resistant Organisms History of MDRO: No Allergies Coded Allergies: No Known Allergies (Verified , 11/24/16) Home Medications Scheduled Aspirin (Aspirin Chewable), 81 MG PO QAM Atorvastatin (Lipitor), 40 MG PO QPM Cholecalciferol (Vitamin D3), 1 CAP PO QPM Docusate Sodium (Docusate Sodium), 100 MG PO BID Glimepiride (Amaryl), 2 MG PO BID Lisinopril (Zestril), 5 MG PO QPM Metformin Hcl (Glucophage *), 1,000 MG PO BID Triamcinolone Acetonide (Topic (Triamcinolone Acet 0.025%), 1 APPLN TOP PRN [Nystatin Powder], 1 DOSE TOP PRN Scheduled PRN Acetaminophen (Tylenol), 1,000 MG PO Q8 PRN for Pain Insulin Aspart (Novolog Flexpen), 1 DOSE SC QID PRN for SLIDING SCALE Oxycodone HCl (Oxycodone HCl), 5-10 MG PO Q4H PRN for Moderate - severe pain Review of Systems Constitutional: No chills, No fatigue, No fever, No problem reported, No sweats , No weakness, No weight loss Eyes: No diplopia, No discharge, No eye pain, No problem reported, No redness, No worsening of vision ENT: No dental problems, No hearing loss, No nasal symptoms, No problem reported, No sore throat, No tinnitus, No trouble swallowing, No unusual epistaxis Respiratory: No cough, No dyspnea at rest, No dyspnea on exertion, No hemoptysis, No problem reported, No shortness of breath, No sputum, No wheezing Cardiovascular: No PND, No chest pain, No claudication, No edema, No orthopnea , No palpitations, No problem reported Abdomen: No GI bleeding, No constipation, No diarrhea, No nausea, No pain, No problem reported, No vomiting Musculoskeletal: + problem reported (she has the expected postsurgical lumbar pain.), No calf pain, No joint pain, No muscle pain, No swelling Genitourinary - Female: No dysmenorrhea, No dysuria, No hematuria, No menorrhagia, No metrorrhagia, No , No problem reported, No rash, No urinary frequency, No urinary incontinence, No urinary retention, No urinary urgency, No vaginal bleeding, No vaginal discharge, No vaginal itching, No vulvodynia Neurologic: No balance problems, No memory loss, No numbness/tingling, No paralysis, No problem reported, No vertigo, No weakness Psychiatric: No anhedonism, No anxiety, No depression symptoms, No insomnia, No problem reported, No substance abuse Endocrine: No excessive thirst, No excessive urination, No fatigue, No problem reported Hematologic / Lymphatic: No abnormal bleeding/bruising, No clotting problems, No night sweats, No problem reported, No swollen lymph nodes Integumentary: No bleeding, No color change, No itch, No new/changing skin lesions, No problem reported, No rash Allergic / Immunologic: No environmental allergies, No food allergies, No frequent infections, No hives, No pet sensitivities, No poor healing, No problem reported, No prolonged convalescence, No seasonal allergies Physical Exam Vital Signs Date Time Temp Pulse Resp B/P Pulse Ox O2 Delivery O2 Flow Rate FiO2 11/24/16 21:05 89 18 149/61 96 5/4/17 20:08 37.0 97 20 165/75 Room Air 11/24/16 19:15 91 15 155/56 95 Room Air 11/24/16 18:07 87 11/24/16 17:30 98 Room Air 11/24/16 17:30 36.6 88 20 155/56 98 Room Air General Appearance: WD/WN, no apparent distress Head: normocephalic, atraumatic Eyes: normal inspection, PERRL, EOMI, sclerae normal ENT: hearing grossly normal, + pertinent finding (mucous membranes are very dry.) Neck: supple, no adenopathy, thyroid normal, no JVD, no carotid bruits Respiratory/Chest: chest non-tender, lungs clear, normal breath sounds, no respiratory distress, no accessory muscle use Cardiovascular: regular rate, rhythm, no edema, no gallop, no JVD, no murmur, normal peripheral pulses Abdomen/GI: normal bowel sounds, non tender, soft, no organomegaly, no pulsatile mass Back: no CVA tenderness, + abnormal inspection (surgical wound looks clean, with no erythema or signs of infection. There is the expected decreased range of motion and tenderness.) Extremities/Musculoskelatal: normal inspection, no calf tenderness, normal capillary refill, no pedal edema, normal range of motion, non-tender Neurologic/Psych: medical surgical tech II-XII nml as tested, no motor/sensory deficits, alert, normal mood/affect, normal reflexes, oriented x 3 Skin: normal color, warm/dry, no rash Lymphatic: no adenopathy Diagnostics Laboratory Results Results Past 24 Hours Test 11/24/16 17:09 11/24/16 17:37 11/24/16 18:05 11/24/16 18:13 Range/Units White Blood Count 5.93 4.8-10.8 K/uL Red Blood Count 3.24 4.2-5.4 M/uL Hemoglobin 9.6 12.0-16.0 g/dL Hematocrit 29.7 37-47 % Mean Corpuscular Volume 91.7 80-100 fL Mean Corpuscular Hemoglobin 29.6 25-34 pg Mean Corpuscular Hemoglobin Concent 32.3 32-36 g/dl Platelet Count 171 130-400 K/uL Mean Platelet Volume 9.3 7.4-10.4 fL RDW Standard Deviation 47.4 36.4-46.3 fL RDW Coefficient of Variation 14.2 11.5-14.5 % Neutrophils % (Manual) 70.5 % Lymphocytes % (Manual) 19.1 % Monocytes % (Manual) 6.1 % Eosinophils % (Manual) 4.3 % Neutrophils # (Manual) 4.18 1.4-6.5 K/uL Total Absolute Neutrophils 4.18 1.4-6.5 K/uL Lymphocytes # (Manual) 1.13 1.2-3.4 K/uL Total Absolute Lymphocytes 1.13 1.2-3.4 K/uL Monocytes # (Manual) 0.36 0.11-0.59 K/uL Eosinophils # (Manual) 0.25 0-0.5 K/uL Red Blood Cell Morphology Unremarkable Prothrombin Time 11.6 9.0-12.0 SECONDS Prothromb Time International Ratio 1.1 0.9-1.1 Activated Partial Thromboplast Time 25.6 21.0-31.0 SECONDS Partial Thromboplastin Ratio 1.0 Sodium Level 139 136-145 mmol/L Potassium Level 5.1 3.5-5.1 mmol/L Chloride Level 104 98-107 mmol/L Carbon Dioxide Level 27 21-32 mmol/L Anion Gap 8.0 3-11 mmol/L Blood Urea Nitrogen 29 7-18 mg/dl Creatinine 0.85 0.60-1.20 mg/dl Est Creatinine Clear Calc Drug Dose 70.6 ml/min Estimated GFR () 78.8 Estimated GFR (Non- 68.0 BUN/Creatinine Ratio 33.8 10-20 Random Glucose 150 70-99 mg/dl Calcium Level 8.6 8.5-10.1 mg/dl Total Bilirubin 0.8 0.2-1 mg/dl Direct Bilirubin 0.2 0-0.2 mg/dl Aspartate Amino Transf (AST/SGOT) 27 15-37 U/L Alanine Aminotransferase (ALT/SGPT) 29 12-78 U/L Alkaline Phosphatase 58 45-117 U/L Total Protein 6.0 6.4-8.2 gm/dl Albumin 2.5 3.4-5.0 gm/dl Lipase 232 73-393 U/L Urine Color YELLOW Urine Appearance CLEAR CLEAR Urine pH 5.0 4.5-7.5 Urine Specific [place] 1.010 1.000-1.030 Urine Protein NEG NEG Urine Glucose (UA) NEG NEG Urine Ketones NEG NEG Urine Occult Blood NEG NEG Urine Nitrite NEG NEG Urine Bilirubin NEG NEG Urine Urobilinogen NEG NEG Urine Leukocyte Esterase NEG NEG Bedside Troponin I 0.030 0-0.045 ng/ml Test 11/24/16 18:42 11/24/16 21:36 Range/Units Bedside Lactic Acid Venous 2.07 0.90-1.70 mmol/L Lactic Acid Level 1.5 0.4-2.0 mmol/L Microbiology Results 11/24/16 Blood Culture, Received Pending 11/24/16 Blood Culture, Received Pending 11/24/16 Urine Culture, Received Pending Diagnostic Radiology Patient Name: JEFFREY TOVAR Unit Number: [id number] Dictated: 11/24/161850 Transcribed: 11/24/161850 MS Printed Date/Time: [~ rep prt dt]/[~ rep prt tm] [~ rep ct labl] - [~ rep ct ivnm] [facility] Radiology Department [place], [place] [id number] Dictated: 11/24/161850 Transcribed: 11/24/161850 MS Printed Date/Time: [~ rep prt dt]/[~ rep prt tm] [~ rep ct labl] - [~ rep ct ivnm] HEAD CT NONCONTRAST CT DOSE: 786.26 mGy.cm HISTORY: Mental status change. eval for CVA, ICH TECHNIQUE: Multiaxial CT images of the head were performed without the use of intravenous contrast. Comparison: 03/02/2014 Findings: The paranasal sinuses and mastoid air cells are clear. Stable pituitary macroadenoma. This has been described on prior MRI of the brain reports. Heart density characteristics otherwise unremarkable. There is no acute intracranial hemorrhage. There is no midline shift. Impression: Chronic change. No acute process. Electronically signed by: Sean Benjamin M.D. 11/24/2016 6:53 PM Dictated Date/Time: 11/24/2016 6:51 PM The status of this report is Signed. Draft = Not yet reviewed or approved by Radiologist. Signed = Reviewed and approved by Radiologist. <AttendingPhy></AttendingPhy> <FamilyPhy>Bee De La Torre M.D.</FamilyPhy > <PrimaryPhy>Bee De La Torre M.D.</PrimaryPhy> <UnitNumber>[id number]</ UnitNumber> <VisitNumber>[id number]</VisitNumber> <PatientName>JEFFREY TOVAR< /PatientName> <DateOfBirth>1945</DateOfBirth> <Location>[facility]</Location> < ServiceDate>11/24/16</ServiceDate> <MNE>ESINDI</MNE> <OrderingPhy>Rell Hamilton M.D.</OrderingPhy> <OrderingPhyMNE>f rep ord dr westfall</OrderingPhyMNE> < DictatingPhyMNE>f rep dict dr westfall</DictatingPhyMNE> <CCListMNE>f rep ct mne</ CCListMNE> <AdmittingPhyMNE>f pt admit dr westfall</AdmittingPhyMNE> <AttendingPhyMNE >f pt attend dr westfall</AttendingPhyMNE> <ConsultingPhyMNE>f pt consult dr westfall</ConsultingPhyMNE> <FamilyPhyMNE>f pt fam dr westfall</FamilyPhyMNE> <OtherPhyMNE>f pt other dr westfall</OtherPhyMNE> < PrimaryPhyMNE>f pt prim care dr westfall</PrimaryPhyMNE> <ReferringPhyMNE>f pt referring dr westfall</ReferringPhyMNE> Patient Name: JEFFREY TOVAR Unit Number: [id number] Dictated: 11/24/161754 Transcribed: 11/24/161754 MS Printed Date/Time: [~ rep prt dt]/[~ rep prt tm] [~ rep ct labl] - [~ rep ct ivnm] [facility] [place] [address] Dictated: 11/24/161754 Transcribed: 11/24/161754 MS Printed Date/Time: [~ rep prt dt]/[~ rep prt tm] [~ rep ct labl] - [~ rep ct ivnm] CHEST ONE VIEW PORTABLE CLINICAL HISTORY: CHEST PAIN dyspnea COMPARISON STUDY: 11/03/2016 FINDINGS: Moderate cardiomegaly. Early congestive failure. No focal infiltrate. IMPRESSION: Moderate cardiomegaly. Early congestive failure Electronically signed by: Sean Benjamin M.D. 11/24/2016 5:56 PM Dictated Date/Time: 11/24/2016 5:55 PM The status of this report is Signed. Draft = Not yet reviewed or approved by Radiologist. Signed = Reviewed and approved by Radiologist. <AttendingPhy></AttendingPhy> <FamilyPhy>Bee De La Torre M.D.</FamilyPhy > <PrimaryPhy>Bee De La Torre M.D.</PrimaryPhy> <UnitNumber>[id number]</ UnitNumber> <VisitNumber>[id number]</VisitNumber> <PatientName>JEFFREY TOVAR< /PatientName> <DateOfBirth>1945</DateOfBirth> <Location>[facility]</Location> < ServiceDate>11/24/16</ServiceDate> <MNE>ESINDI</MNE> <OrderingPhy>Rell Hamilton M.D.</OrderingPhy> <OrderingPhyMNE>f rep ord dr westfall</OrderingPhyMNE> < DictatingPhyMNE>f rep dict dr westfall</DictatingPhyMNE> <CCListMNE>f rep ct rameze</ CCListMNE> <AdmittingPhyMNE>f pt admit dr westfall</AdmittingPhyMNE> <AttendingPhyMNE >f pt attend dr westfall</AttendingPhyMNE> <ConsultingPhyMNE>f pt consult dr westfall</ConsultingPhyMNE> <FamilyPhyMNE>f pt fam dr westfall</FamilyPhyMNE> <OtherPhyMNE>f pt other dr westfall</OtherPhyMNE> < PrimaryPhyMNE>f pt prim care dr westafll</PrimaryPhyMNE> <ReferringPhyMNE>f pt referring dr westfall</ReferringPhyMNE> EKG EKG shows normal sinus rhythm at 92 bpm, right bundle branch block, left anterior fascicular block. QT interval has lengthened compared to 11/03/2016. Impression Assessment and Plan Altered mental status/slurred speech/history of CVA--patient's symptoms are likely due to excessive use of oxycodone to control pain. She'll be admitted to the telemetry unit for monitoring. We'll reduce the amount of medications that she is allowed to take. We'll place her on IV fluids to address dehydration. Continue aspirin 81 mg by mouth every morning. Repeat laboratories in the a.m. Status post lumbar surgery--consult Dr. Salazar. Diabetes mellitus--hold glimepiride and metformin. Place on Accu-Cheks before meals and at bedtime with NovoLog coverage scale. Hypercholesterolemia--continue atorvastatin. Attention--continue lisinopril with hold parameters. Level of Care Telemetry Advanced Directives Existing Advance Directive: No Existing Living Will: Yes Existing Power of Blow Off Worker: Yes Resuscitation Status FULL RESUSCITATION VTE Prophylaxis VTE Risk Assessment Done? Y/N: Yes Risk Level: Moderate Given or contraindicated: SCD's
[2016-11-25] VITALS (8 sets, daily range): BP systolic 122–178; BP diastolic 65–84; PULSE 82–101; TEMP 36.8–37.2; O2SAT 93–96
[2016-11-25 07:20] LABS: BASO % 0.2 %; BASO ABS # 0.01 K/uL (0-0.2); COMPLETE YES; EOS % 3.5 %; HEMATOCRIT 28.2 % (37-47); LYMPH % 21.9 %; LYMPH ABS # 1.14 K/uL (1.2-3.4); MEAN CELL VOLUME 92.5 fL (80-100); MEAN CORPUSCULAR HEMOGLOBIN 30.5 pg (25-34); MEAN PLATELET VOLUME 9.2 fL (7.4-10.4); MONO % 10.7 %; NEUT % 62.7 %; PLATELET COUNT 157 K/uL (130-400); RED BLOOD COUNT 3.05 M/uL (4.2-5.4); WHITE BLOOD COUNT 5.21 K/uL (4.8-10.8)
[2016-11-25] MEDS: INSULIN ASPART 100 UNITS/ML 3 ML PEN SC SCH ×3 (07:37→17:06)
[2016-11-25] MEDS: DOCUSATE SODIUM 100 MG CAP PO SCH (07:38)
[2016-11-25 07:51] LABS: BUN/CREATININE RATIO 32.8 (10-20); CALCIUM 8.4 mg/dl (8.5-10.1); CREATININE 0.67 mg/dl (0.60-1.20); MAGNESIUM 1.4 mg/dl (1.8-2.4); POTASSIUM 4.8 mmol/L (3.5-5.1)
--- NOTE | 2016-11-25 08:58 | ORTHOPEDIC CONSULTATION ---
DATE OF CONSULTATION: 11/25/2016 DATE OF CONSULTATION: 11/25/2016. HISTORY OF PRESENT ILLNESS: This is a 71-year-old female well known to me status post lumbar decompression and fusion. She was discharged to [facility] a few days ago, had been progressing nicely, but yesterday had onset of some confusion and lethargy. We strongly suspect it was due to narcotics. This morning she is more alert, pain is controlled, complaining of some left modest sciatica and some trochanteric bursitis. Otherwise no issues. PHYSICAL EXAMINATION: She is alert and oriented and appropriate, has good strength to testing lower extremities, dressing is in place. There is no evidence of erythema or drainage. ASSESSMENT: Status post lumbar decompression and fusion. PLAN: At this time, we will begin decreasing her pain medications, allow her body to equilibrate but however encourage her to continue with transfers to the chair, ambulation as tolerated. I hope that she will be able to transfer to [facility] in the next day or so.
[2016-11-25] MEDS ORDERED: CHOLECALCIFEROL 1000 INTER.UNIT TAB PO SCH (09:00)
[2016-11-25] MEDS ORDERED: ASPIRIN 81 MG ECTAB PO SCH (09:00)
[2016-11-25] MEDS: OXYCODONE HCL IR 5 MG TAB (IMMEDIATE RELEASE) PO PRN ×2 (12:41→17:11)
[2016-11-25] MEDS: MAGNESIUM SULFATE 1GM / D5W 1 GM in PREMIXED IN D5W 100 ML IV SCH ×2 (12:41→13:30)
[2016-11-25] MEDS: SODIUM CHLORIDE 0.9% 1000ML 1,000 ML IV SCH (12:42)
[2016-11-25] MEDS ORDERED: RXC5 PO (13:43)
--- NOTE | 2016-11-25 13:45 | Discharge Instructions ---
Discharge Instructions Date of Service November 25, 2016. Admission Reason for Admission: Altered Mental Status, Status Post Lumbar Surgery Discharge Discharge Diagnosis / Problem: Altered mental status Discharge Goals Goal(s): Decrease discomfort, Improve function Activity Recommendations Activity Limitations: resume your previous activity . Instructions / Follow-Up Instructions / Follow-Up Recommendations: Altered mental status/slurred speech/history of CVA-- - likely secondary to excessive use of pain medication - Increase intervals between pain medications: Continue oxycodone 5 mg every 6 hours instead of every 4 hours as needed for pain - Consider nocturnal pulse oximetry for obesity hypoventilation syndrome Diabetes mellitus--continue glimepiride and metformin. Hypercholesterolemia--continue atorvastatin. Hypertension--continue lisinopril Current Hospital Diet Patient's current hospital diet: AHA Diet (Heart Healthy) Discharge Diet Recommended Diet: Regular Diet Pending Studies Studies pending at discharge: no Laboratory Results Hemoglobin A1c Test 11/21/16 06:30 Range/Units Estimated Average Glucose 171 mg/dl Hemoglobin A1c 7.6 H 4.5-5.6 % Medical Emergencies . Who to Call and When: Medical Emergencies: If at any time you feel your situation is an emergency, please call 911 immediately. . Non-Emergent Contact Non-Emergency issues call your: Primary Care Provider . . "Provider Documentation" section prepared by Gillian Montes De Oca. . VTE Core Measure Inpt VTE Proph given/why not?: SCD's Resident Tracking Resident Involvement: Resident Care Provided Care Provided: Adult Hospital Medicine
--- NOTE | 2016-11-25 13:48 | Discharge Summary ---
Discharge Summary Date of Service November 25, 2016. (Gillian Montes De Oca MD) Discharge Summary Admission Date: November 24, 2016 at 20:46 Discharge Date: November 25, 2016 Discharge Disposition: Rehab Principal Diagnosis: altered mental status Immunizations: Have You Had Influenza Vaccine: No History of Tetanus Vaccine?: Yes History of Pneumococcal: Yes History of Hepatitis B Vaccine: No Consultations: Orthopedic surgery (Gillian Montes De Oca MD) Medication Reconciliation New Medications: Oxycodone HCl (Oxycodone HCl) 5 Mg Tab 5 MG PO Q6H PRN for Moderate for 30 Days, #120 TAB Continued Medications: Acetaminophen (Tylenol) 500 Mg Tab 1000 MG PO Q8 PRN for Pain, TAB Aspirin (Aspirin Chewable) 81 Mg Chew 81 MG PO QAM PER PT OK WITH SURGEON'S OFFICE TO CONTINUE TAKING Atorvastatin (Lipitor) 40 Mg Tab 40 MG PO QPM, TAB Cholecalciferol (Vitamin D3) 2,000 Unit Cap 1 CAP PO QPM for 90 Days, CAP 3 Refills Docusate Sodium (Docusate Sodium) 100 Mg Cap 100 MG PO BID, CAP Glimepiride (Amaryl) 2 Mg Tab 2 MG PO BID, TAB Insulin Aspart (Novolog Flexpen) 100 Units/Ml Inj 1 DOSE SC QID PRN for SLIDING SCALE <70 = HYPOGLYCEMIA PROTOCOL 70-130 = 0 UNITS 131-180 = 2 UNITS 181-240 = 4 UNITS 241-300 = 6 UNITS 301-350 = 8 UNITS 351-400 = 10 UNITS >400 = 12 UNITS AND CALL MD. Lisinopril (Zestril) 5 Mg Tab 5 MG PO QPM, TAB Metformin Hcl (Glucophage *) 500 Mg Tab 1000 MG PO BID Triamcinolone Acetonide (Topic (Triamcinolone Acet 0.025%) 0.025 % Oin 1 APPLN TOP PRN, #15 GM 1 Refill [Nystatin Powder] () 1 DOSE TOP PRN Discontinued Medications: Oxycodone HCl (Oxycodone HCl) 5 Mg Tab 5-10 MG PO Q4H PRN for Moderate - severe pain for 30 Days, #90 TAB Discharge Exam Patient alert and awake and oriented today. Denied any headaches, fevers or chills, weakness, numbness or tingling, chest pain or difficult breathing Review of Systems: Constitutional: No chills, No fever Eyes: No worsening of vision ENT: No hearing loss Respiratory: No cough, No sputum Cardiovascular: No chest pain Abdomen: No nausea, No pain Genitourinary - Female: No dysuria, No urinary frequency Genitourinary - Male: + hematuria Physical Exam: General Appearance: WD/WN, no apparent distress, + obese Eyes: normal inspection ENT: normal ENT inspection, hearing grossly normal Neck: supple Respiratory/Chest: chest non-tender, lungs clear, normal breath sounds, no respiratory distress, no accessory muscle use Cardiovascular: regular rate, rhythm, no edema Abdomen / GI: normal bowel sounds, non tender, soft Extremities: normal inspection, no calf tenderness, normal capillary refill , no pedal edema Neurologic/Psychiatric: alert, normal mood/affect, oriented x 3 Skin: normal color (Gillian Montes De Oca MD) mentation cleared this am. denied any complain except back pain Review of Systems: Constitutional: No fever Respiratory: No shortness of breath Cardiovascular: No chest pain Physical Exam: General Appearance: no apparent distress Respiratory/Chest: lungs clear, no respiratory distress Cardiovascular: regular rate, rhythm Neurologic/Psychiatric: alert, oriented x 3 Skin: warm/dry (Alicja Vang M.D.) Hospital Course The patient is a 71-year-old female who presents to the emergency department with altered mental state and slurred speech. The patient was admitted at [facility] from November 18 through November 22 for lumbar surgery, and was then transferred to [facility] for rehabilitation. The patient presently taking oxycodone for pain has had a total of 30 mg of oxycodone today prior to arrival. The patient has a history of a previous stroke at which time she had right-sided facial droop and right arm weakness which did resolve completely. She has no additional symptoms today other than the slurred speech. She does report that her mouth is very dry. Altered mental status/slurred speech/history of CVA--patient's symptoms are likely due to excessive use of oxycodone to control pain. - Electrolytes within normal limits - Chest x-ray and UA negative - CT head: No acute process - Recommended to be increase intervals between pain medication, 5 mg oxycodone every 6 hours instead of every 4 hours as needed for pain Status post lumbar surgery--consulted Dr. Salazar. Recommended to decrease pain medication - Continue rehabilitation Hypomagnesemia: Mg at 1.4- repleted, recheck magnesium level in a few days Diabetes mellitus--continue glimepiride and metformin. Hypercholesterolemia--continue atorvastatin. Hypertension--continue lisinopril Total Time Spent: Less than 30 minutes This includes examination of the patient, discharge planning, medication reconciliation, and communication with other providers. (Gillian Montes De Oca MD) I have reviewed the medical record and performed a history and physical examination of this patient today. I have discussed the case with Dr Montes De Oca. The above note reflects my findings, conclusions, and recommendations. Total Time Spent: Greater than 30 minutes (35) (Alicja Vang M.D.) Discharge Instructions Please refer to the electronic Patient Visit Report (Discharge Instructions) for additional information. (Gillian Montes De Oca MD) [facility] Res[facility] Tr[facility] Resident Involvement: Resident Care Provided Care Provided: Adult Hospital Medicine (Gillian Montes De Oca MD)
[2017-02-23] MEDS ORDERED: LPT10 PO (11:03)
[2017-02-23] MEDS ORDERED: LISI10TA PO (11:03)
[2017-02-23] MEDS ORDERED: TYLER650 PO (11:03)
[2017-02-23] MEDS ORDERED: MULT-506 PO (11:03)
[2017-02-23] MEDS ORDERED: OXYC1CAP5 PO (11:04)
[2017-06-02] MEDS ORDERED: GLC/500 PO (14:10)
== END 2016-11-25 17:30 ==
LOC: ENRESERVDT → ENRESERVTM → EDBD 17:23 → C.EDC 17:24 → C.2T 20:46
PROVIDERS: ADMIT Hospitalist; ATTEND Family Medicine
DX: R41.82 Altered mental status, unspecified (principal); R47.81 Slurred speech; Z86.73 Personal history of transient ischemic attack (TIA), and cerebral infarction without residual deficits; E83.42 Hypomagnesemia; I10 Essential (primary) hypertension; E78.00 Pure hypercholesterolemia, unspecified; E11.9 Type 2 diabetes mellitus without complications; Z79.82 Long term (current) use of aspirin; Z79.4 Long term (current) use of insulin; Z79.899 Other long term (current) drug therapy; D47.2 Monoclonal gammopathy; Z87.891 Personal history of nicotine dependence; Z82.49 Family history of ischemic heart disease and other diseases of the circulatory system; Z98.1 Arthrodesis status

== ENCOUNTER → 2016-12-15 | Outpatient (CLI) | payer BC ==
[~2016-12-15] MED LIST changes: +ACET-1256 PO; -ACET650T49 PO; +DOCU100C31 PO; +GLC/500 PO; +LISI10TA PO; +LPT10 PO; +MULT-506 PO; +NVLGI/PEN SC; +OXYC1CAP5 PO; +TYLER650 PO
[2016-12-15 17:58] LABS: BASO % 0.3 %; BASO ABS # 0.01 K/uL (0-0.2); COMPLETE YES; EOS % 2.3 %; HEMATOCRIT 32.3 % (37-47); LYMPH % 22.9 %; LYMPH ABS # 0.79 K/uL (1.2-3.4); MEAN CELL VOLUME 93.6 fL (80-100); MEAN CORPUSCULAR HEMOGLOBIN 28.7 pg (25-34); MEAN CORPUSCULAR HGB CONC 30.7 g/dl (32-36); MEAN PLATELET VOLUME 10.1 fL (7.4-10.4); MONO % 12.2 %; NEUT % 62.3 %; PLATELET COUNT 192 K/uL (130-400); RED BLOOD COUNT 3.45 M/uL (4.2-5.4); WHITE BLOOD COUNT 3.45 K/uL (4.8-10.8)
[2016-12-15 18:35] LABS: BLOOD UREA NITROGEN 14 mg/dl (7-18); BUN/CREATININE RATIO 19.2 (10-20); CALCIUM 8.1 mg/dl (8.5-10.1); CARBON DIOXIDE 31 mmol/L (21-32); CHLORIDE 104 mmol/L (98-107); CREATININE 0.74 mg/dl (0.60-1.20); GLUCOSE 175 mg/dl (70-99); POTASSIUM 4.2 mmol/L (3.5-5.1); SODIUM 140 mmol/L (136-145)
== END | disposition home or self-care (01) ==
LOC: C.LABPVFM 10:50
PROVIDERS: ATTEND Family Medicine
DX: D64.9 Anemia, unspecified (principal); I10 Essential (primary) hypertension

== ENCOUNTER → 2017-01-23 | Outpatient (CLI) | payer BC ==
[~2017-01-23] MED LIST changes: -GLC/500 PO
--- NOTE | 2017-01-23 15:18 | MAMMOGRAPHY REPORT ---
BILATERAL DIGITAL SCREENING MAMMOGRAM WITH CAD: 01/23/2017 CLINICAL HISTORY: Routine screening. Patient has no complaints. TECHNIQUE: Bilateral CC and MLO views were obtained. Current study was also evaluated with a Comput er Aided Detection (CAD) system. COMPARISON: Comparison is made to exams dated: 01/14/2013 mammogram, 01/13/2012 mammogram, 01/11/2011 m ammogram, 01/06/2010 mammogram, 01/15/2014 mammogram, and 01/16/2015 mammogram - [facility] enter. BREAST COMPOSITION: The tissue of both breasts is almost entirely fatty. FINDINGS: There is evidence of prior reduction mammoplasty. Scattered benign rim calcifications in t he breasts. No suspicious mass, architectural distortion or cluster of suspicious microcalcification s is seen. IMPRESSION: ACR BI-RADS CATEGORY 1: NEGATIVE There is no mammographic evidence of malignancy. A 1 year screening mammogram is recommended. The pa tient will receive written notification of the results. Approximately 10% of breast cancers are not detected with mammography. A negative mammographic report should not delay biopsy if a clinically suggestive mass is present. Susan Barbour M.D. ay/:01/23/2017 12:45:43 Manager News: Ashlee CASTILLO(R)(M), [facility] letter sent: Normal 1/2 BI-RADS Code: ACR BI-RADS Category 1: Negative
== END | disposition home or self-care (01) ==
LOC: C.MAMM 10:02
PROVIDERS: ATTEND Family Medicine
DX: Z12.31 Encounter for screening mammogram for malignant neoplasm of breast (principal)

== ENCOUNTER → 2017-02-27 | Outpatient (CLI) | payer BC ==
[~2017-02-27] MED LIST changes: -LISI-729 PO; -LPT/40 PO; -NVLGI/PEN SC; -RXC5 PO
[2017-02-27 13:14] LABS: ALT/SGPT 25 U/L (12-78); BLOOD UREA NITROGEN 16 mg/dl (7-18); BUN/CREATININE RATIO 20.4 (10-20); CALCIUM 8.9 mg/dl (8.5-10.1); CARBON DIOXIDE 29 mmol/L (21-32); CHLORIDE 105 mmol/L (98-107); CHOLESTEROL 134 mg/dl (0-200); CREATININE 0.79 mg/dl (0.60-1.20); GLUCOSE 135 mg/dl (70-99); POTASSIUM 4.5 mmol/L (3.5-5.1); SODIUM 140 mmol/L (136-145); TRIGLYCERIDES 95 mg/dl (0-150); VERY LOW DENSITY LIPOPROT CALC 19 mg/dl
[2017-02-27 13:17] LABS: ALB/GLOB RATIO 0.6 (0.9-2); ALKALINE PHOSPHATASE 83 U/L (45-117); AST/SGOT 31 U/L (15-37); CHOLESTEROL/HDL RATIO 2.8; HDL CHOLESTEROL 48 mg/dl; LDL CHOLESTEROL CALCULATED 67 mg/dl
[2017-02-27 13:35] LABS: RATIO 175.5 mcg/mg (0-30.0)
[2017-02-27 13:36] LABS: ESTIMATED AVERAGE GLUCOSE 131 mg/dl; HA1C FLAG Normal (Normal)
== END | disposition home or self-care (01) ==
LOC: C.LABPVFM 08:59
PROVIDERS: ATTEND Family Medicine
DX: I10 Essential (primary) hypertension (principal); E78.00 Pure hypercholesterolemia, unspecified; E11.51 Type 2 diabetes mellitus with diabetic peripheral angiopathy without gangrene

== ENCOUNTER → 2017-04-17 | Outpatient (CLI) | payer BC ==
[2017-04-17 12:43] LABS: BASO % 0.3 %; BASO ABS # 0.01 K/uL (0-0.2); COMPLETE YES; EOS % 3.2 %; HEMATOCRIT 36.8 % (37-47); IG% 0.3 %; LYMPH % 32.8 %; LYMPH ABS # 1.14 K/uL (1.2-3.4); MEAN CELL VOLUME 85.2 fL (80-100); MEAN CORPUSCULAR HEMOGLOBIN 25.7 pg (25-34); MEAN CORPUSCULAR HGB CONC 30.2 g/dl (32-36); MEAN PLATELET VOLUME 10.1 fL (7.4-10.4); MONO % 10.9 %; NEUT % 52.5 %; PLATELET COUNT 146 K/uL (130-400); RED BLOOD COUNT 4.32 M/uL (4.2-5.4); WHITE BLOOD COUNT 3.48 K/uL (4.8-10.8)
[2017-04-17 13:14] LABS: ALT/SGPT 25 U/L (12-78); BLOOD UREA NITROGEN 18 mg/dl (7-18); BUN/CREATININE RATIO 22.4 (10-20); CARBON DIOXIDE 25 mmol/L (21-32); CHLORIDE 104 mmol/L (98-107); CREATININE 0.78 mg/dl (0.60-1.20); GLUCOSE 230 mg/dl (70-99); POTASSIUM 4.3 mmol/L (3.5-5.1); SODIUM 138 mmol/L (136-145)
[2017-04-17 13:27] LABS: ALB/GLOB RATIO 0.6 (0.9-2); ALKALINE PHOSPHATASE 86 U/L (45-117); AST/SGOT 35 U/L (15-37); IMMUNOGLOBULN M 96.7 mg/dL (40-230)
[2017-04-18 12:35] LABS: FREE KAPPA 80.2 MG/L (3.3-19.4); FREE KAPPA/LAMBDA RATIO 1.48 (0.26-1.65); FREE LAMBDA 54.1 MG/L (5.7-26.3)
[2017-04-18 17:21] LABS: ALBUMIN 3.2 G/DL (3.8-4.8); GAMMA GLOBULIN 1.9 G/DL (0.8-1.7); IMMUNOFIXATION IGA SERUM 646 MG/DL (81-463); IMMUNOFIXATION IGG SERUM 2062 MG/DL (694-1618); IMMUNOFIXATION IGM SERUM 103 MG/DL (48-271); TOTAL PROTEIN 7.4 G/DL (6.2-8.3)
== END | disposition home or self-care (01) ==
LOC: C.LABPVFM 10:36
PROVIDERS: ATTEND Nurse Practitioner Family
DX: D47.2 Monoclonal gammopathy (principal)

== ENCOUNTER → 2017-06-05 | Day surgery (SDC) | payer BC ==
[2017-06-02 14:14] VITALS: Ht 154.9 cm; Wt 110.0 kg
[~2017-06-05] VITALS: Ht 154.9 cm; Wt 110.0 kg
[~2017-06-05] MED LIST changes: +GLC/500 PO; -GLC500 PO; +LIDOCAINE HCL 2% 2 ML VIAL (20MG/ML) ONE; +PROPOFOL IV EMULSION 10 MG/ML 20 ML VIAL IV ONE; +SODIUM CHLORIDE 0.9% 500ML 500 ML IV ONE
[2017-06-05 12:37] VITALS: TEMP 36.7
--- NOTE | 2017-06-05 13:50 | Endo History and Physical ---
History & Physical Date of Service: Jun 05, 2017. Chief Complaint: HX OF POLYP, FAMILY HX OF COLON CA Referring Physician: DR. RODAS History of Present Illness hx polyps; + FH CRC Past Medical History Diabetes, Hypertension Past Surgical History Hx Cardiac Surgery: No Hx Internal Defibrillator: No Hx Pacemaker: No Hx Abdominal Surgery: Yes (SASCHA, X3) Hx of Implantable Prosthesis: No Hx Post-Op Nausea and Vomiting: No Hx Cancer Surgery: No Hx Thoracic Surgery: No Hx Orthopedic: Yes (LT/RT TKA, LOW BACK SURGERY) Hx Urinary Tract Surgery: No Family History Colon CA Social History Smoking Status: Never Smoker Hx Substance Use: No Hx Alcohol Use: No Allergies Coded Allergies: No Known Allergies (Verified , 06/02/17) Current Medications Reported Home Medications Medications Dose Route/Sig Max Daily Dose Days Date Category Glucophage (Metformin Hcl) 500 Mg Tab 1,000 Mg PO BID 06/02/17 Reported Oxycodone Hcl 5 Mg Cap 1 Cap PO Q6H PRN 02/23/17 Reported Tylenol Arthitis Ext Rel (Acetaminophen) 650 Mg Ertab 650 Mg PO Q8H PRN 02/23/17 Reported Atorvastatin Calcium (Atorvastatin) 10 Mg Tab 1 Tab PO QPM 02/23/17 Reported Multivitamin (Multivitamins) Tab 1 Tab PO QAM 02/23/17 Reported Prinivil (Lisinopril) 10 Mg Tab 10 Mg PO QPM 02/23/17 Reported Tylenol (Acetaminophen) 500 Mg Tab 1,000 Mg PO Q8 PRN 11/24/16 Reported Docusate Sodium 100 Mg Cap 100 Mg PO BID-TID 11/24/16 Reported [Nystatin Powder] 1 Dose TOP PRN 11/03/16 Reported Triamcinolone Acet 0.025% (Triamcinolone Acetonide (Topic) 0.025 % Oin 1 Appln TOP PRN PRN 11/03/16 Reported Vitamin D3 (Cholecalciferol) 2,000 Unit Cap 1 Cap PO QAM 11/03/16 Reported Aspirin Chewable (Aspirin) 81 Mg Chew 81 Mg PO QAM 10/09/15 Reported Amaryl (Glimepiride) 2 Mg Tab 2 Mg PO BID 03/02/14 Reported Vital Signs Weight (Kilograms): 110 Height (Feet): 5 Height (Inches): 1 Date Time Temp Pulse Resp B/P (MAP) Pulse Ox O2 Delivery O2 Flow Rate FiO2 06/05/17 12:37 36.7 83 20 164/78 (106) 97 Room Air Physical Exam AAOx3 Nls1s2 Lungs CTA Abd soft NT/ND + BS - CCE Assessment and Plan colonoscopy- surveillence
--- NOTE | 2017-06-05 14:19 | Discharge Instructions ---
Endoscopy Patient Instructions Date / Procedure(s) Performed Jun 05, 2017. Colonoscopy Allergy Information Coded Allergies: No Known Allergies (Verified , 06/02/17) Discharge Date / Findings Jun 05, 2017. hemorrhoids/diverticulosis Medication Instructions Stopped Medication(s): ASPIRIN 05/26/17 Restart Stopped Medication(s): Reported Home Medications Medications Dose Route/Sig Max Daily Dose Days Date Category Glucophage (Metformin Hcl) 500 Mg Tab 1,000 Mg PO BID 06/02/17 Reported Oxycodone Hcl 5 Mg Cap 1 Cap PO Q6H PRN 02/23/17 Reported Tylenol Arthitis Ext Rel (Acetaminophen) 650 Mg Ertab 650 Mg PO Q8H PRN 02/23/17 Reported Atorvastatin Calcium (Atorvastatin) 10 Mg Tab 1 Tab PO QPM 02/23/17 Reported Multivitamin (Multivitamins) Tab 1 Tab PO QAM 02/23/17 Reported Prinivil (Lisinopril) 10 Mg Tab 10 Mg PO QPM 02/23/17 Reported Tylenol (Acetaminophen) 500 Mg Tab 1,000 Mg PO Q8 PRN 11/24/16 Reported Docusate Sodium 100 Mg Cap 100 Mg PO BID-TID 11/24/16 Reported [Nystatin Powder] 1 Dose TOP PRN 11/03/16 Reported Triamcinolone Acet 0.025% (Triamcinolone Acetonide (Topic) 0.025 % Oin 1 Appln TOP PRN PRN 11/03/16 Reported Vitamin D3 (Cholecalciferol) 2,000 Unit Cap 1 Cap PO QAM 11/03/16 Reported Aspirin Chewable (Aspirin) 81 Mg Chew 81 Mg PO QAM 10/09/15 Reported Amaryl (Glimepiride) 2 Mg Tab 2 Mg PO BID 03/02/14 Reported hemorrhoids/diverticulosis Reported Home Medications Medications Dose Route/Sig Max Daily Dose Days Date Category Glucophage (Metformin Hcl) 500 Mg Tab 1,000 Mg PO BID 06/02/17 Reported Oxycodone Hcl 5 Mg Cap 1 Cap PO Q6H PRN 02/23/17 Reported Tylenol Arthitis Ext Rel (Acetaminophen) 650 Mg Ertab 650 Mg PO Q8H PRN 02/23/17 Reported Atorvastatin Calcium (Atorvastatin) 10 Mg Tab 1 Tab PO QPM 02/23/17 Reported Multivitamin (Multivitamins) Tab 1 Tab PO QAM 02/23/17 Reported Prinivil (Lisinopril) 10 Mg Tab 10 Mg PO QPM 02/23/17 Reported Tylenol (Acetaminophen) 500 Mg Tab 1,000 Mg PO Q8 PRN 11/24/16 Reported Docusate Sodium 100 Mg Cap 100 Mg PO BID-TID 11/24/16 Reported [Nystatin Powder] 1 Dose TOP PRN 11/03/16 Reported Triamcinolone Acet 0.025% (Triamcinolone Acetonide (Topic) 0.025 % Oin 1 Appln TOP PRN PRN 11/03/16 Reported Vitamin D3 (Cholecalciferol) 2,000 Unit Cap 1 Cap PO QAM 11/03/16 Reported Aspirin Chewable (Aspirin) 81 Mg Chew 81 Mg PO QAM 10/09/15 Reported Amaryl (Glimepiride) 2 Mg Tab 2 Mg PO BID 03/02/14 Reported Provider Instructions Activity Restrictions - No exercising or heavy lifting for 24 hours. - Do not drink alcohol the day of the procedure. - Do not drive a car or operate machinery until the day after the procedure. - Do not make any important decisions or sign important papers in 24 hours after the procedure. Following Day: - Return to full activity which may include returning to work/school. Diet Start your diet with liquids and light foods (jello, soup, juice, toast). Then eat your usual diet if not nauseated. Treatment For Common After Affects For mild abdominal pain, bloating, or excessive gas: - Rest - Eat lightly - Lie on right side Follow-Up Information Follow-up with DR. RODAS as scheduled Anesthesia Information What You Should Know You have had a procedure that required some medicine to reduce anxiety and discomfort. This treatment is called moderate sedation. After receiving the treatment, you may be sleepy, but you will be able to breathe on your own. The effects of the treatment may last for several hours. Follow these instructions along with Activity/Diet recommendations noted above: * Do NOT do anything where dizziness or clumsiness would be dangerous. * Rest quietly at home today, then you can be up and about tomorrow. * Have a responsible person stay with you the rest of today. * You may have had an I.V. today. If so, you may take the dressing off later today. Recommendations Call your doctor if: * Trouble breathing * Continuous vomiting for more than 24 hours * Temperature above 101 degrees * Severe abdominal pain or bloating * Pain not relieved by pain medicine ordered * There is increased drainage or redness from any incision * A large amount of rectal bleeding greater than 2-3 tablespoons. (If you had a polyp/s removed or have hemorrhoids, a small amount of blood - from the rectum is to be expected.) * You have any unanswered questions or concerns. IN THE EVENT OF A SERIOUS EMERGENCY, GO TO THE NEAREST EMERGENCY ROOM Your discharge instructions were prepared by provider Chandler Bright. Patient Instructions Signature Page Rosalind Dudley Patient (or Guardian) Signature/Date: I have read and understand the instructions given to me by my caregivers. Caregiver/RN/Doctor Signature/Date: The above-named patient and/or guardian has received patient instructions on this date. + Original Patient Signature Page (only) stays with chart. Please make copy for patient.
--- NOTE | 2017-06-05 14:32 | GI REPORT ---
Procedure Date: 06/05/2017 1:52 PM Procedure: Colonoscopy Indications: High risk colon cancer surveillance: Personal history of colonic polyps, Family history of colon cancer in a first-degree relative Medicines: Propofol per Anesthesia Complications: No immediate complications. Estimated blood loss: None. Estimated Blood Loss: Estimated blood loss: none. Procedure: Pre-Anesthesia Assessment: - Prior to the procedure, a History and Physical was performed, and patient medications and allergies were reviewed. The patient's tolerance of previous anesthesia was also reviewed. The risks and benefits of the procedure and the sedation options and risks were discussed with the patient. All questions were answered, and informed consent was obtained. Prior Anticoagulants: The patient has taken no previous anticoagulant or antiplatelet agents. ASA Grade Assessment: III - A patient with severe systemic disease. After reviewing the risks and benefits, the patient was deemed in satisfactory condition to undergo the procedure. After I obtained informed consent, the scope was passed under direct vision. Throughout the procedure, the patient's blood pressure, pulse, and oxygen saturations were monitored continuously. The Scope was introduced through the anus and advanced to the cecum, identified by appendiceal orifice and ileocecal valve. The colonoscopy was performed without difficulty. The patient tolerated the procedure well. The quality of the bowel preparation was good. Findings: The perianal and digital rectal examinations were normal. Pertinent negatives include normal sphincter tone, no palpable rectal lesions and no anal lesion or abnormality was detected. The colon (entire examined portion) appeared normal. Many small-mouthed diverticula were found in the sigmoid colon. Non-bleeding internal hemorrhoids were found during retroflexion. The hemorrhoids were mild. Impression: - The entire examined colon is normal. - Diverticulosis in the sigmoid colon. - Non-bleeding internal hemorrhoids. - No specimens collected. Recommendation: - Discharge patient to home (ambulatory). - Resume regular diet. - Continue present medications. - Repeat colonoscopy in 5 years for surveillance. - Return to referring physician as previously scheduled. MD Chandler Dallas MD 06/05/2017 2:31:34 PM This report has been signed electronically. Note Initiated On: 06/05/2017 1:52 PM I attest to the content of the Intraoperative Record and orders documented therein, exceptions below
[2017-06-05 14:53] VITALS: BP 163/88; PULSE 73; O2SAT 98
== END | disposition home or self-care (01) ==
LOC: C.GI 12:08
PROVIDERS: ATTEND Internal Medicine Gastroenterology
DX: Z12.11 Encounter for screening for malignant neoplasm of colon (principal); Z86.010 Personal history of colon polyps; Z80.0 Family history of malignant neoplasm of digestive organs; K57.30 Diverticulosis of large intestine without perforation or abscess without bleeding; K64.8 Other hemorrhoids; I10 Essential (primary) hypertension; E66.01 Morbid (severe) obesity due to excess calories; E11.9 Type 2 diabetes mellitus without complications; Z68.42 Body mass index [BMI] 45.0-49.9, adult; Z90.49 Acquired absence of other specified parts of digestive tract; Z96.653 Presence of artificial knee joint, bilateral; Z79.82 Long term (current) use of aspirin; Z79.899 Other long term (current) drug therapy; Z86.73 Personal history of transient ischemic attack (TIA), and cerebral infarction without residual deficits; Z86.718 Personal history of other venous thrombosis and embolism; Z98.41 Cataract extraction status, right eye; Z98.42 Cataract extraction status, left eye; Z98.890 Other specified postprocedural states

== ENCOUNTER → 2017-08-01 | Outpatient (CLI) | payer BC ==
[~2017-08-01] MED LIST changes: -LIDOCAINE HCL 2% 2 ML VIAL (20MG/ML) ONE; -PROPOFOL IV EMULSION 10 MG/ML 20 ML VIAL IV ONE; -SODIUM CHLORIDE 0.9% 500ML 500 ML IV ONE
[2017-08-01 12:31] LABS: BASO % 0.3 %; BASO ABS # 0.01 K/uL (0-0.2); EOS % 5.6 %; EOS ABS # 0.22 K/uL (0-0.5); HEMATOCRIT 39.7 % (37-47); HEMOGLOBIN 12.5 g/dL (12.0-16.0); IG# 0.01 K/uL (0.00-0.02); LYMPH % 36.3 %; LYMPH ABS # 1.43 K/uL (1.2-3.4); MEAN CELL VOLUME 91.1 fL (80-100); MEAN CORPUSCULAR HEMOGLOBIN 28.7 pg (25-34); MEAN CORPUSCULAR HGB CONC 31.5 g/dl (32-36); MEAN PLATELET VOLUME 10.6 fL (7.4-10.4); MONO % 8.6 %; MONO ABS # 0.34 K/uL (0.11-0.59); NEUT % 48.9 %; NEUT ABS # 1.93 K/uL (1.4-6.5); PLATELET COUNT 121 K/uL (130-400); RED CELL DISTRIBUTION WIDTH CV 15.8 % (11.5-14.5); RED CELL DISTRIBUTION WIDTH SD 52.7 fL (36.4-46.3); WHITE BLOOD COUNT 3.94 K/uL (4.8-10.8)
[2017-08-01 13:08] LABS: HEMOGLOBIN A1C 6.7 % (4.5-5.6)
[2017-08-01 13:41] LABS: CREATININE RANDOM URINE 80.8 mg/dl
[2017-08-01 14:59] LABS: ALBUMIN 2.8 gm/dl (3.4-5.0); ALT/SGPT 25 U/L (12-78); AST/SGOT 32 U/L (15-37); BLOOD UREA NITROGEN 17 mg/dl (7-18); CALCIUM 9.1 mg/dl (8.5-10.1); CARBON DIOXIDE 29 mmol/L (21-32); CREATININE 0.69 mg/dl (0.60-1.20); GLUCOSE 127 mg/dl (70-99); POTASSIUM 4.1 mmol/L (3.5-5.1); SODIUM 138 mmol/L (136-145)
[2017-08-01 15:03] LABS: ALKALINE PHOSPHATASE 74 U/L (45-117); CHOLESTEROL 142 mg/dl (0-200); LDL CHOLESTEROL CALCULATED 70 mg/dl; TOTAL PROTEIN 7.6 gm/dl (6.4-8.2); TRANSFERRIN 296 mg/dl (200-360)
== END | disposition home or self-care (01) ==
LOC: C.LABPVFM 08:43
PROVIDERS: ATTEND Family Medicine
DX: E11.9 Type 2 diabetes mellitus without complications (principal); I10 Essential (primary) hypertension; E78.00 Pure hypercholesterolemia, unspecified; R77.1 Abnormality of globulin; D64.9 Anemia, unspecified

== ENCOUNTER → 2017-08-22 | Outpatient (CLI) | payer BC ==
[~2017-08-22] MED LIST changes: +GADAVIST IV PRN
--- NOTE | 2017-08-22 19:47 | DIAGNOSTIC IMAGING REPORT ---
MRI OF THE BRAIN COMBO; MRI OF THE PITUITARY GLAND CLINICAL HISTORY: Facial pain. Meningioma. Pituitary macroadenoma. Blurry vision. COMPARISON STUDY: MRI scan of the brain dated 09/21/2016 and 10/19/2015. TECHNIQUE: MRI of the brain was performed utilizing various T1 and T2-weighted sequences in the axial, sagittal, and coronal planes. Contrast-enhanced sequences were acquired following the administration of 10 cc of Gadavist. Additional high-resolution imaging of the pituitary gland was performed including dynamic post contrast assessment. FINDINGS: Brain parenchyma: There is minimal periventricular microangiopathic change. There is no hemorrhage or mass effect. There is no restricted diffusion to suggest acute ischemia. There is unchanged appearance of a 1.9 x 2.1 x 1.3 cm homogeneously enhancing extra-axial mass in the anterior right temporal fossa as compared to prior studies. This is typical in appearance for a meningioma. Mild right cerebellar encephalomalacia is unchanged. Stein-white matter differentiation is preserved. No extra-axial fluid collection is seen. The cerebellar tonsils are normal in configuration. Ventricles, sulci, and cisterns: Normal in configuration. Pituitary and sella: Again seen is a lobulated and homogeneously enhancing mass lesion in the sella turcica. This extends in the suprasellar region and measures 2.0 x 1.3 x 2.1 cm. This abuts the optic chiasm. Intracranial vasculature: Normal flow voids are maintained at the skull base. Orbits: The bony orbits are grossly intact. Orbital contents are normal in appearance noting bilateral ocular lens implants. Sinuses and mastoids: Trace mucosal thickening is seen in the left maxillary antrum. The remaining paranasal sinuses and mastoid vessels are clear. Calvarium: Unremarkable. Cervical cord: Partially visualized cervical spinal cord is normal in morphology and signal intensity. IMPRESSION: 1. No acute intracranial abnormality. 2. Unchanged appearance of a 2.1 cm extra-axial mass in the right anterior temporal fossa. This remains typical in appearance for a meningioma. 3. Unchanged appearance of a 2.1 cm mass lesion centered in the sella turcica. The appearance is typical for a pituitary macroadenoma as clinically suspected. This lesion extends in the suprasellar region and abuts the optic chiasm. Electronically signed by: Kenny Jung M.D. 08/22/2017 7:46 PM Dictated Date/Time: 08/22/2017 7:39 PM
== END | disposition home or self-care (01) ==
LOC: C.MRI 17:50
PROVIDERS: ATTEND Physician Assistant
DX: D35.2 Benign neoplasm of pituitary gland (principal); D32.0 Benign neoplasm of cerebral meninges

== ENCOUNTER → 2017-10-18 | Outpatient (CLI) | payer BC ==
[~2017-10-18] MED LIST changes: -GADAVIST IV PRN
[2017-10-18 14:42] LABS: BASO % 0.5 %; BASO ABS # 0.02 K/uL (0-0.2); EOS % 3.5 %; EOS ABS # 0.13 K/uL (0-0.5); HEMATOCRIT 39.2 % (37-47); HEMOGLOBIN 12.6 g/dL (12.0-16.0); IG# 0.01 K/uL (0.00-0.02); LYMPH % 33.1 %; LYMPH ABS # 1.24 K/uL (1.2-3.4); MEAN CORPUSCULAR HEMOGLOBIN 29.6 pg (25-34); MEAN CORPUSCULAR HGB CONC 32.1 g/dl (32-36); MONO % 12.5 %; MONO ABS # 0.47 K/uL (0.11-0.59); NEUT % 50.1 %; NEUT ABS # 1.88 K/uL (1.4-6.5); PLATELET COUNT 110 K/uL (130-400); RED CELL DISTRIBUTION WIDTH CV 14.6 % (11.5-14.5); RED CELL DISTRIBUTION WIDTH SD 49.2 fL (36.4-46.3); WHITE BLOOD COUNT 3.75 K/uL (4.8-10.8)
[2017-10-18 16:48] LABS: ALBUMIN 2.8 gm/dl (3.4-5.0); ALT/SGPT 27 U/L (12-78); AST/SGOT 32 U/L (15-37); BLOOD UREA NITROGEN 18 mg/dl (7-18); CALCIUM 8.6 mg/dl (8.5-10.1); CARBON DIOXIDE 24 mmol/L (21-32); CREATININE 0.79 mg/dl (0.60-1.20); GLUCOSE 186 mg/dl (70-99); POTASSIUM 4.3 mmol/L (3.5-5.1); SODIUM 138 mmol/L (136-145); TOTAL PROTEIN 7.6 gm/dl (6.4-8.2)
[2017-10-18 17:01] LABS: ALKALINE PHOSPHATASE 68 U/L (45-117)
[2017-10-19 14:05] LABS: BETA-2-MICROGLOBULIN 852 3.07 MG/L (0.00-2.51)
== END | disposition home or self-care (01) ==
LOC: C.LABPVFM 08:40
PROVIDERS: ATTEND Nurse Practitioner Family
DX: D47.2 Monoclonal gammopathy (principal)

== ENCOUNTER → 2018-02-20 | Outpatient (CLI) | payer BC ==
[~2018-02-20] MED LIST changes: -ASPCH81X PO; +GLIM2TAB2 PO; -MULT-506 PO; +NYST100033 TOP; -NYSTATIN POWDER TOP; -OXYC1CAP5 PO; +PANT1TAB4 PO; -TYLER650 PO
[2018-02-20 13:33] LABS: HEMATOCRIT 28.4 % (37-47); HEMOGLOBIN 8.4 g/dL (12.0-16.0); MEAN CELL VOLUME 78.9 fL (80-100); MEAN CORPUSCULAR HEMOGLOBIN 23.3 pg (25-34); MEAN CORPUSCULAR HGB CONC 29.6 g/dl (32-36); MEAN PLATELET VOLUME 10.9 fL (7.4-10.4); PLATELET COUNT 143 K/uL (130-400); RED CELL DISTRIBUTION WIDTH CV 18.9 % (11.5-14.5); RED CELL DISTRIBUTION WIDTH SD 55.3 fL (36.4-46.3); WHITE BLOOD COUNT 3.79 K/uL (4.8-10.8)
[2018-02-20 14:12] LABS: BASO % 0.5 %; BASO ABS # 0.02 K/uL (0-0.2); EOS % 4.5 %; EOS ABS # 0.17 K/uL (0-0.5); LYMPH % 27.2 %; LYMPH ABS # 1.03 K/uL (1.2-3.4); MONO % 11.6 %; MONO ABS # 0.44 K/uL (0.11-0.59); NEUT % 56.2 %; NEUT ABS # 2.13 K/uL (1.4-6.5)
== END | disposition home or self-care (01) ==
LOC: C.LABPVFM 08:57
PROVIDERS: ATTEND Family Medicine
DX: D64.9 Anemia, unspecified (principal)

== ENCOUNTER 2018-03-09 10:53 | Inpatient (IN) | payer BC, OTHER ==
[~2018-03-09] VITALS: Ht 154.9 cm; Wt 104.2 kg
[2018-03-09 11:03] VITALS: Ht 154.9 cm; Wt 104.2 kg
[2018-03-09] MEDS ORDERED: RANITIDINE HCL 50 MG/100 ML D5W IV STA (11:15)
[2018-03-09] MEDS ORDERED: SODIUM CHLORIDE 0.9% 1000ML 500 ML IV STA (11:15)
[2018-03-09] MEDS ORDERED: ONDANSETRON INJ 2 MG/ML 2 ML VIAL IV STA (11:15)
[2018-03-09 11:56] LABS: HEMATOCRIT 26.2 % (37-47); HEMOGLOBIN 7.8 g/dL (12.0-16.0); MEAN CELL VOLUME 74.9 fL (80-100); MEAN CORPUSCULAR HEMOGLOBIN 22.3 pg (25-34); MEAN CORPUSCULAR HGB CONC 29.8 g/dl (32-36); MEAN PLATELET VOLUME 9.4 fL (7.4-10.4); PLATELET COUNT 127 K/uL (130-400); RED CELL DISTRIBUTION WIDTH CV 19.3 % (11.5-14.5); RED CELL DISTRIBUTION WIDTH SD 52.4 fL (36.4-46.3); WHITE BLOOD COUNT 3.64 K/uL (4.8-10.8)
--- NOTE | 2018-03-09 11:56 | DIAGNOSTIC IMAGING REPORT ---
CHEST ONE VIEW PORTABLE CLINICAL HISTORY: 72 years-old Female presenting with EVALUATE GI BLEED. TECHNIQUE: Portable upright AP view of the chest was obtained. COMPARISON: 11/24/2016. FINDINGS: Atherosclerosis of the aortic arch. Cardiac silhouette enlarged. No focal opacity. No large effusion or pneumothorax. Degenerative changes of the thoracic spine. Upper abdomen normal. IMPRESSION: 1. Cardiomegaly. No other convincing evidence of acute cardiopulmonary disease. Electronically signed by: Dalton Zavala M.D. 03/09/2018 11:55 AM Dictated Date/Time: 03/09/2018 11:54 AM
[2018-03-09 11:57] LABS: ISTAT CREATININE 0.7 mg/dl (0.6-1.3); ISTAT IONIZED CALCIUM 1.13 mmol/l (1.12-1.32); ISTAT POTASSIUM 4.4 mEq/L (3.3-5.0)
[2018-03-09 12:00] LABS: INR 1.1 (0.9-1.1); PTT PATIENT 24.3 SECONDS (21.0-31.0)
[2018-03-09 12:05] LABS: BASO % 0.5 %; BASO ABS # 0.02 K/uL (0-0.2); EOS ABS # 0.22 K/uL (0-0.5); LYMPH % 28.3 %; LYMPH ABS # 1.03 K/uL (1.2-3.4); MONO % 8.5 %; MONO ABS # 0.31 K/uL (0.11-0.59); NEUT % 56.7 %; NEUT ABS # 2.06 K/uL (1.4-6.5)
[2018-03-09 12:21] LABS: ALBUMIN 2.6 gm/dl (3.4-5.0); ALKALINE PHOSPHATASE 66 U/L (45-117); ALT/SGPT 18 U/L (12-78); AST/SGOT 24 U/L (15-37); BLOOD UREA NITROGEN 23 mg/dl (7-18); CALCIUM 8.8 mg/dl (8.5-10.1); CARBON DIOXIDE 25 mmol/L (21-32); CREATININE 0.91 mg/dl (0.60-1.20); GLUCOSE 190 mg/dl (70-99); LIPASE 162 U/L (73-393); POTASSIUM 4.3 mmol/L (3.5-5.1); SODIUM 137 mmol/L (136-145); TOTAL PROTEIN 7.7 gm/dl (6.4-8.2)
[2018-03-09] MEDS ORDERED: MAGNESIUM SULFATE 1GM / D5W 1 GM BAG IV STA (12:23)
[2018-03-09] MEDS ORDERED: ONDANSETRON INJ 2 MG/ML 2 ML VIAL IV PRN (12:45)
--- NOTE | 2018-03-09 12:50 | History and Physical ---
History & Physical Date & Time of Service: Mar 09, 2018 at 12:33 Chief Complaint: Black Stool Primary Care Physician: Bee De La Torre M.D. History of Present Illness Source: patient, hospital records, other 72 y/o F Hx MGUS, HTN, HPL, DM II, recurrent GI bleeds. She presented twice for black tarry stool in December. On 12/29 and EGD revealed bleeding angioectasias in the duodenum and proximal jejunum which required cauterization. She returned to the hospital 01/10. A repeat EGD was completed demonstrating grade I esophageal varices, gastritis and no identifiable source of bleeding. Her bleeding had resolved spontaneously and she was sent home on a PPi with plans to pursue a pill endoscopy. The pill endoscopy was completed and did not provide any additional helpful information. The pt returns again today with black, tarry stool. An initial Hb returned at 7.8 which is only slightly down from a recent of 8.4. Initial labs are also notable for a low Mg. She has mild central abdominal pain and is otherwise asymptomatic. She does not have SOB, CP or lightheadedness. Past Medical/Surgical History 1) DM II 2) Recurrent GI bleeds - bleeding angioectasias in the duodenum and jejunum 03/10 - gastritis and grade I esophageal varices present 3) HTN 4) HPL 5) Obese 6) L lower extremity edema - followed lumbar surgery 2017 Surgical: 1) Lumbar surgery 2) Multiple EGDs Family History Diabetes mellitus Heart disease Hypertension Does not smoke - rarely drinks Social History Smoking Status: Former Smoker Drug Use: none Marital Status: Housing status: lives with family Immunizations History of Influenza Vaccine: No History of Tetanus Vaccine?: Yes History of Pneumococcal: Yes History of Hepatitis B Vaccine: No Allergies Coded Allergies: No Known Allergies (Verified , 03/09/18) Home Medications Scheduled Atorvastatin (Lipitor), 1 TAB PO DAILY Cholecalciferol (Vitamin D3), 1 CAP PO QAM Docusate Sodium (Docusate Sodium), 100 MG PO BID Glimepiride (Amaryl), 2 MG PO QAM Glimepiride (Glimepiride), 1 MG PO QPM Lisinopril (Prinivil), 10 MG PO QPM Metformin Hcl (Glucophage), 1,000 MG PO BID Pantoprazole (Pantoprazole Sodium), 40 MG PO BID Scheduled PRN Triamcinolone Acetonide (Topic (Triamcinolone Acet 0.025%), 1 APPLN TOP PRN PRN for PRN Review of Systems Constitutional: No fever, No chills, No sweats Eyes: No worsening of vision ENT: No hearing loss, No unusual epistaxis, No nasal symptoms Respiratory: No cough, No sputum, No wheezing Cardiovascular: No chest pain, No orthopnea, No PND Abdomen: + pain (mild central ), + GI bleeding, No nausea, No vomiting Musculoskeletal: No joint pain Genitourinary - Female: No dysuria, No urinary frequency Neurologic: No memory loss, No paralysis, No weakness Psychiatric: No depression symptoms Endocrine: No fatigue Hematologic / Lymphatic: + abnormal bleeding/bruising Integumentary: No rash Allergic / Immunologic: No environmental allergies Physical Exam Vital Signs Date Time Temp Pulse Resp B/P (MAP) Pulse Ox O2 Delivery O2 Flow Rate FiO2 03/09/18 11:54 80 20 161/74 97 Room Air 03/09/18 11:35 90 03/09/18 11:03 36.8 92 20 150/65 98 Room Air General Appearance: WD/WN, no apparent distress Head: normocephalic Eyes: normal inspection ENT: normal ENT inspection, pharynx normal Neck: supple, no JVD Respiratory/Chest: chest non-tender, lungs clear, normal breath sounds Cardiovascular: regular rate, rhythm, no edema, no gallop Abdomen/GI: normal bowel sounds, soft, + pertinent finding (Mild, central tenderness to palpation) Back: normal inspection, no CVA tenderness Extremities/Musculoskelatal: normal inspection, no calf tenderness, normal capillary refill, + pedal edema (LLE only) 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, no motor/sensory deficits, alert, oriented x 3 Skin: normal color Diagnostics Laboratory Results Results Past 24 Hours Test 03/09/18 11:35 03/09/18 11:44 Range/Units White Blood Count 3.64 4.8-10.8 K/uL Red Blood Count 3.50 4.2-5.4 M/uL Hemoglobin 7.8 12.0-16.0 g/dL Hematocrit 26.2 37-47 % Mean Corpuscular Volume 74.9 80-100 fL Mean Corpuscular Hemoglobin 22.3 25-34 pg Mean Corpuscular Hemoglobin Concent 29.8 32-36 g/dl Platelet Count 127 130-400 K/uL Mean Platelet Volume 9.4 7.4-10.4 fL Neutrophils (%) (Auto) 56.7 % Lymphocytes (%) (Auto) 28.3 % Monocytes (%) (Auto) 8.5 % Eosinophils (%) (Auto) 6.0 % Basophils (%) (Auto) 0.5 % Neutrophils # (Auto) 2.06 1.4-6.5 K/uL Lymphocytes # (Auto) 1.03 1.2-3.4 K/uL Monocytes # (Auto) 0.31 0.11-0.59 K/uL Eosinophils # (Auto) 0.22 0-0.5 K/uL Basophils # (Auto) 0.02 0-0.2 K/uL RDW Standard Deviation 52.4 36.4-46.3 fL RDW Coefficient of Variation 19.3 11.5-14.5 % Immature Granulocyte % (Auto) 0.0 % Immature Granulocyte # (Auto) 0.00 0.00-0.02 K/uL Hypochromasia PRESENT Prothrombin Time 11.8 9.0-12.0 SECONDS Prothromb Time International Ratio 1.1 0.9-1.1 Activated Partial Thromboplast Time 24.3 21.0-31.0 SECONDS Partial Thromboplastin Ratio 0.9 Sodium Level 137 136-145 mmol/L Potassium Level 4.3 3.5-5.1 mmol/L Chloride Level 104 98-107 mmol/L Carbon Dioxide Level 25 21-32 mmol/L Anion Gap 9.0 21.0 16-25 mmol/L Blood Urea Nitrogen 23 7-18 mg/dl Creatinine 0.91 0.60-1.20 mg/dl Est Creatinine Clear Calc Drug Dose 60.2 ml/min Estimated GFR () 72.0 Estimated GFR (Non- 62.2 BUN/Creatinine Ratio 25.5 10-20 Random Glucose 190 70-99 mg/dl Calcium Level 8.8 8.5-10.1 mg/dl Magnesium Level 1.0 1.8-2.4 mg/dl Total Bilirubin 0.3 0.2-1 mg/dl Aspartate Amino Transf (AST/SGOT) 24 15-37 U/L Alanine Aminotransferase (ALT/SGPT) 18 12-78 U/L Alkaline Phosphatase 66 45-117 U/L Troponin I < 0.015 0-0.045 ng/ml Total Protein 7.7 6.4-8.2 gm/dl Albumin 2.6 3.4-5.0 gm/dl Globulin 5.1 2.5-4.0 gm/dl Albumin/Globulin Ratio 0.5 0.9-2 Lipase 162 73-393 U/L Bedside Hemoglobin 8.5 12.0-16.0 g/dl Bedside Hematocrit 25 37-47 % Bedside Sodium 141 135-144 mEq/L Bedside Potassium 4.4 3.3-5.0 mEq/L Bedside Chloride 101 101-112 mEq/L Bedside Total CO2 24 24-31 mEq/l Bedside Blood Urea Nitrogen 23 7-18 mg/dl Bedside Creatinine 0.7 0.6-1.3 mg/dl Bedside Glucose (other) 194 70-99 mg/dl Bedside Ionized Calcium (Juan Daniel) 1.13 1.12-1.32 mmol/l Impression Assessment and Plan 72 y/o F Hx MGUS, HTN, HPL, DM II, recurrent GI bleeds. She presented twice for black tarry stool in December. On 12/29 and EGD revealed bleeding angioectasias in the duodenum and proximal jejunum which required cauterization. She returned to the hospital 01/10. A repeat EGD was completed demonstrating grade I esophageal varices, gastritis and no identifiable source of bleeding. Her bleeding had resolved spontaneously and she was sent home on a PPi with plans to pursue a pill endoscopy. The pill endoscopy was completed and did not provide any additional helpful information. The pt returns again today with black, tarry stool. An initial Hb returned at 7.8 which is only slightly down from a recent of 8.4. Initial labs are also notable for a low Mg. She has mild central abdominal pain and is otherwise asymptomatic. She does not have SOB, CP or lightheadedness. 1) GI bleed - recurrent. A tagged RBC scan was considered during a prior admission. We will order this study today and consult her finance administrator as she may need another EGD. She has been placed on IV Protonix. Her Hb will be trended and we will transfuse as needed. 2) DM II - placed on a SS 3) HTN - PO meds held - PRN Hydralazine provided 4) HLD - can resume her statin when bleed resolves. 5) Hypomagnesemia - 2g ordered in ED - will recheck AM Full code - SCDs Total time for this admit including review of labs, meds, imaging, records - discussion with pt and ER attending - 37 min Resuscitation Status VTE Prophylaxis Will order VTE Prophylaxis: Yes
[2018-03-09 13:00] VITALS: O2SAT 99; BMI 43.4
[2018-03-09] MEDS ORDERED: GLUCOSE 40% GEL 15 GM TUBE PO PRN (13:45)
[2018-03-09] MEDS ORDERED: DEXTROSE 50% 50 ML SYR IV PRN (13:45)
[2018-03-09] MEDS ORDERED: GLUCAGON FOR INJ 1 MG VIAL IM PRN (13:45)
[2018-03-09] MEDS ORDERED: GLUCOSE 10 TABS/TUBE PO PRN (13:45)
[2018-03-09] MEDS ORDERED: CARBOHYDRATES FOR HYPOGLYCEMIA PO PRN (13:45)
[2018-03-09] MEDS ORDERED: IV FLUIDS COMPLETED PRN (14:00)
[2018-03-09] MEDS: SODIUM CHLORIDE 0.9% 1000ML 1,000 ML IV SCH (14:19)
[2018-03-09 14:52] VITALS: BP 164/85; PULSE 86; TEMP 37; O2SAT 98
--- NOTE | 2018-03-09 15:51 | EMERGENCY ROOM VISIT NOTE ---
History Report prepared by Sharmaine: Estrella Moreno Under the Supervision of: Dr. Kenny Medina M.D. First contact with patient: 11:10 Chief Complaint: GI ASSESSMENT Stated Complaint: BLACK STOOL History of Present Illness The patient is a 72 year old female who presents to the Emergency Room with a referral from her PCP for intermittent black and tarry stools. Per the patient' s grandson, the patient came into the hospital last month with severe anemia and black tarry stools. Per the grandson, they found an upper GI bleed and the patient got a blood transfusion. The patient's grandson then states that about two weeks later the patient came back into the hospital for the same symptoms. The grandson states that they cauterized more in her GI tract and had her swallow a pill cam. The grandson states that when they left everything was normal The patient's grandson states that yesterday the patient began to have similar symptoms with black tarry stools. The patient went to the cancer center today and they were going to do a blood test for her, but they called her PCP who stated that there was no reason to do a blood test because she knew the patient's similar symptoms were occurring again and told the patient to come to the ED. The patient states that she has mild discomfort in her abdomen that she rates at a 1/10. She states that these symptoms are similar to when she came to the ED before. She states that she has been feeling weak the past few days and feels more short of breath than usual The patient denies any chest pain or fever. The patient's grandson states that she is currently on a low acid diet and is taking Protonix. Source of History: patient, family Onset: yesterday Position: other (bowels) Quality: other (black and tarry stool) Timing: intermittent Associated Symptoms: + SOB, + abdominal pain (1/10), + weakness, No fevers, No chest pain Review of Systems See HPI for pertinent positives & negatives. A total of 10 systems reviewed and were otherwise negative. Past Medical & Surgical Medical Problems: (1) Altered mental status (2) Diabetes (3) Hypertension (4) Lumbar stenosis with neurogenic claudication (5) MGUS (monoclonal gammopathy of unknown significance) (6) Upper GI bleed Surgical Problems: (1) Status post lumbar surgery Family History Diabetes mellitus Heart disease Hypertension Social History Smoking Status: Former Smoker Alcohol Use: none Drug Use: none Marital Status: Housing Status: lives with family Current/Historical Medications Scheduled Atorvastatin (Lipitor), 1 TAB PO DAILY Cholecalciferol (Vitamin D3), 1 CAP PO QAM Docusate Sodium (Docusate Sodium), 100 MG PO BID Glimepiride (Amaryl), 2 MG PO QAM Glimepiride (Glimepiride), 1 MG PO QPM Lisinopril (Prinivil), 10 MG PO QPM Metformin Hcl (Glucophage), 1,000 MG PO BID Pantoprazole (Pantoprazole Sodium), 40 MG PO BID Scheduled PRN Triamcinolone Acetonide (Topic (Triamcinolone Acet 0.025%), 1 APPLN TOP PRN PRN for PRN Allergies Coded Allergies: No Known Allergies (Verified , 03/09/18) Physical Exam Vital Signs Date Time Temp Pulse Resp B/P (MAP) Pulse Ox O2 Delivery O2 Flow Rate FiO2 03/09/18 11:54 80 20 161/74 97 Room Air 03/09/18 11:35 90 03/09/18 11:03 36.8 92 20 150/65 98 Room Air Physical Exam GENERAL: Patient is in no acute distress. HEENT: No acute trauma, normocephalic atraumatic, mucous membranes moist, no nasal congestion, no scleral icterus. NECK: No stridor, no adenopathy, no meningismus, trachea is midline. LUNGS: Clear to auscultation bilaterally, no wheeze, no rhonchi, breath sounds equal. HEART: 2/6 systolic murmur with regular rate and rhythm. ABDOMEN: Soft, nontender, bowel sounds positive, no hernias, no peritonitis. EXTREMITIES: No cyanosis, full range of motion of all the joints without pain or difficulty, no signs for acute trauma. Mild bilateral pedal edema. NEUROLOGIC: Oriented x 3, no acute motor or sensory deficits, no focal weakness. SKIN: No rash, no jaundice, no diaphoresis. RECTAL: Black stool. Heme positive. Medical Decision & Procedures ER Provider Diagnostic Interpretation: Radiology results as stated below per my review and radiologist interpretation: CHEST ONE VIEW PORTABLE CLINICAL HISTORY: 72 years-old Female presenting with EVALUATE GI BLEED. TECHNIQUE: Portable upright AP view of the chest was obtained. COMPARISON: 11/24/2016. FINDINGS: Atherosclerosis of the aortic arch. Cardiac silhouette enlarged. No focal opacity. No large effusion or pneumothorax. Degenerative changes of the thoracic spine. Upper abdomen normal. IMPRESSION: 1. Cardiomegaly. No other convincing evidence of acute cardiopulmonary disease. Electronically signed by: Dalton Zavala M.D. 03/09/2018 11:55 AM Dictated Date/Time: 03/09/2018 11:54 AM Laboratory Results 03/09/18 11:35 Red Blood Count 3.50, Mean Corpuscular Volume 74.9, Mean Corpuscular Hemoglobin 22.3, Mean Corpuscular Hemoglobin Concent 29.8, Mean Platelet Volume 9.4, Neutrophils (%) (Auto) 56.7, Lymphocytes (%) (Auto) 28.3, Monocytes (%) (Auto) 8.5, Eosinophils (%) (Auto) 6.0, Basophils (%) (Auto) 0.5, Neutrophils # (Auto) 2.06, Lymphocytes # (Auto) 1.03, Monocytes # (Auto) 0.31, Eosinophils # (Auto) 0.22, Basophils # (Auto) 0.02 03/09/18 11:35 Test 03/09/18 11:35 03/09/18 11:44 White Blood Count 3.64 K/uL (4.8-10.8) Red Blood Count 3.50 M/uL (4.2-5.4) Hemoglobin 7.8 g/dL (12.0-16.0) Hematocrit 26.2 % (37-47) Mean Corpuscular Volume 74.9 fL (80-100) Mean Corpuscular Hemoglobin 22.3 pg (25-34) Mean Corpuscular Hemoglobin Concent 29.8 g/dl (32-36) Platelet Count 127 K/uL (130-400) Mean Platelet Volume 9.4 fL (7.4-10.4) Neutrophils (%) (Auto) 56.7 % Lymphocytes (%) (Auto) 28.3 % Monocytes (%) (Auto) 8.5 % Eosinophils (%) (Auto) 6.0 % Basophils (%) (Auto) 0.5 % Neutrophils # (Auto) 2.06 K/uL (1.4-6.5) Lymphocytes # (Auto) 1.03 K/uL (1.2-3.4) Monocytes # (Auto) 0.31 K/uL (0.11-0.59) Eosinophils # (Auto) 0.22 K/uL (0-0.5) Basophils # (Auto) 0.02 K/uL (0-0.2) RDW Standard Deviation 52.4 fL (36.4-46.3) RDW Coefficient of Variation 19.3 % (11.5-14.5) Immature Granulocyte % (Auto) 0.0 % Immature Granulocyte # (Auto) 0.00 K/uL (0.00-0.02) Hypochromasia PRESENT Prothrombin Time 11.8 SECONDS (9.0-12.0) Prothromb Time International Ratio 1.1 (0.9-1.1) Activated Partial Thromboplast Time 24.3 SECONDS (21.0-31.0) Partial Thromboplastin Ratio 0.9 Est Creatinine Clear Calc Drug Dose 60.2 ml/min Estimated GFR () 72.0 Estimated GFR (Non- 62.2 BUN/Creatinine Ratio 25.5 (10-20) Calcium Level 8.8 mg/dl (8.5-10.1) Magnesium Level 1.0 mg/dl (1.8-2.4) Total Bilirubin 0.3 mg/dl (0.2-1) Aspartate Amino Transf (AST/SGOT) 24 U/L (15-37) Alanine Aminotransferase (ALT/SGPT) 18 U/L (12-78) Alkaline Phosphatase 66 U/L (45-117) Troponin I < 0.015 ng/ml (0-0.045) Total Protein 7.7 gm/dl (6.4-8.2) Albumin 2.6 gm/dl (3.4-5.0) Globulin 5.1 gm/dl (2.5-4.0) Albumin/Globulin Ratio 0.5 (0.9-2) Lipase 162 U/L (73-393) Bedside Hemoglobin 8.5 g/dl (12.0-16.0) Bedside Hematocrit 25 % (37-47) Bedside Sodium 141 mEq/L (135-144) Bedside Potassium 4.4 mEq/L (3.3-5.0) Bedside Chloride 101 mEq/L (101-112) Bedside Total CO2 24 mEq/l (24-31) Anion Gap 21.0 mmol/L (16-25) Bedside Blood Urea Nitrogen 23 mg/dl (7-18) Bedside Creatinine 0.7 mg/dl (0.6-1.3) Bedside Glucose (other) 194 mg/dl (70-99) Bedside Ionized Calcium (Juan Daniel) 1.13 mmol/l (1.12-1.32) Laboratory results reviewed by me. Medications Administered Medications (Trade) Dose Ordered Sig/Marcello Route Start Time Stop Time Status Last Admin Dose Admin Sodium Chloride 500 ml @ 999 mls/hr Q31M STAT IV 03/09/18 11:15 03/09/18 11:45 DC 03/09/18 11:15 999 MLS/HR Ranitidine HCl (zANTac IV) 50 mg NOW STAT IV 03/09/18 11:15 03/09/18 11:17 DC 03/09/18 11:49 50 MG Magnesium Sulfate (Magnesium Sulfate 1gm / D5W) 2 gm NOW STAT IV 03/09/18 12:23 03/09/18 12:24 DC 03/09/18 12:54 2 GM ECG Per My Interpretation Indication: other (GI bleed) Rate (beats per minute): 81 Rhythm: sinus rhythm (with short NC) Findings: RBBB, other (LVH present, no ST elevation) ED Course 1111: The patient was evaluated in room B8. A complete history and physical exam was performed. 1115: Ordered Zofran Inj 4 mg IV, Zantac IV 50 mg IV, and Sodium Chloride 500 ml @ 999 mls/hr IV. 1215: I updated the patient. 1223: Ordered Magnesium Sulfate 2 gm IV. 1225: spoke to Dr. Abad- [facility] Hospitalist who will evaluate the patient further. Medical Decision Possible differential diagnoses include: Upper or lower GI bleeding, anemia, cardiac ischemia, dehydration, electrolyte imbalance, and coagulopathy. The patient has a low white count and platelet count although the numbers are not critical. Hemoglobin is low at 7.8. Stool is black and heme positive per my exam. Magnesium is low at 1. No kidney failure. No hepatitis. No pancreatitis. EKG shows a sinus rhythm with a short NC, no acute ischemic change. Cardiac enzyme testing 1 is not consistent with acute cardiac injury. Chest x-ray does not show pneumonia or CHF. The patient received IV saline, IV Zantac. She was given IV magnesium. The patient presents with some fatigue, shortness of breath and black stool. She has a lower hemoglobin, a low magnesium and heme positive stool by my testing. A hospital stay is warranted. She will likely require a packed red blood cell transfusion. I spoke to the patient and case management. The on- call hospitalist was consulted. Medication Reconcilliation Current Medication List: was personally reviewed by me Blood Pressure Screening Patient's blood pressure: Elevated blood pressure (referred to hospitalist ) Impression Primary Impression: Anemia Additional Impressions: GI bleed Heme positive stool Hypomagnesemia Scribe Attestation The scribe's documentation has been prepared under my direction and personally reviewed by me in its entirety. I confirm that the note above accurately reflects all work, treatment, procedures, and medical decision making performed by me. Departure Information Dispostion Being Evaluated By Hospitalist Referrals Bee De La Torre M.D. (PCP) Patient Instructions My [facility] Problem Qualifiers
[2018-03-09 17:35] VITALS: O2SAT 98
--- NOTE | 2018-03-09 17:50 | DIAGNOSTIC IMAGING REPORT ---
TAGGED RED BLOOD CELL GI BLEEDING SCAN CLINICAL HISTORY: Recurrent GI bleed. COMPARISON STUDY: None. TECHNIQUE: Following the IV administration of 27.5 mCi of technetium 99m UltraTag labeled red blood cells, nuclear bleeding scan was performed. Anterior flow images were obtained every 2 seconds for a total 48 seconds. Anterior static images were obtained every 5 minutes for a total of 60 minutes. FINDINGS: Note is made of a small focus of moderate radiotracer uptake within the lower mid abdomen, just to the left of midline, shown on the 45 minute image. This moves to the left lower quadrant at the completion of this exam. This represents an abnormal finding consistent with an active GI bleed during this examination. No additional sites of abnormal radiotracer correlation are noted. IMPRESSION: Positive exam for GI bleed with small focus of moderate radiotracer uptake within the lower abdomen which moves to the left lower quadrant. This favors a lower GI bleed which may be within the small bowel. A colonic bleed could appear similar and this may be within a tortuous sigmoid colon or less likely arising from the transverse colon. This report will be called to the ordering physician as per protocol. Electronically signed by: Eris Friedman M.D. 03/09/2018 5:48 PM Dictated Date/Time: 03/09/2018 5:16 PM
[2018-03-09] MEDS: INSULIN ASPART 100 UNITS/ML 3 ML PEN SC SCH (18:00)
--- NOTE | 2018-03-09 19:08 | GASTROINTESTINAL CONSULTATION ---
DATE OF CONSULTATION: 03/09/2018 REASON FOR EVALUATION: Recurrent anemia and melena. HISTORY OF PRESENT ILLNESS: The patient is a 72-year-old who has been evaluated in the past for recurrent GI bleeds. The patient had EGD and colonoscopies in the past as well as a small bowel video capsule procedure. She has had a couple of angioectasias found in the duodenum and proximal jejunum, which were cauterized in the past but she presents today with melena beginning yesterday with a hemoglobin of 7.8. She was feeling slightly weak, but no abdominal pain. She was admitted to the hospital and underwent a bleeding scan this afternoon, but the results are not available at this time. PAST MEDICAL HISTORY: Remarkable for diabetes, recurrent GI bleed, hypertension, hyperlipidemia, obesity, lower extremity edema, lumbar surgery. MEDICATIONS: Lipitor, vitamin D, docusate, Amaryl, glimepiride, Prinivil, Glucophage, pantoprazole. ALLERGIES: None. FAMILY HISTORY: Diabetes, hypertension, heart disease. SOCIAL HISTORY: The patient is , lives with her , does not drink. She is a former smoker. REVIEW OF SYSTEMS: Melena and some fatigue. The remainder is negative. PHYSICAL EXAMINATION: GENERAL: The patient is overweight, in no acute distress. VITAL SIGNS: Blood pressure is 150/65, pulse 80. ABDOMEN: Soft. There are no masses or tenderness. EXTREMITIES: Showed ankle edema. Hemoglobin is 7.8, white count 3.64, platelets are 127,000, MCV is 74.9. IMPRESSION: The patient presents with recurrent melena of unclear etiology. She has been extensively evaluated in the past with a few small angioectasias cauterized. Small bowel video capsule did not reveal any additional vascular abnormalities or potential source of bleeding. The patient underwent a bleeding scan earlier today, but the results are not available at this time. Dr. Bright will be covering over the weekend to review the results of bleeding scan and provide any additional input as far as evaluation.
[2018-03-09] MEDS: PANTOprazole INJ 40 MG in SYRINGE 0 ML IV SCH (20:50)
[2018-03-09] MEDS ORDERED: LAVAGE SOLUTION 4000ML PO SCH (21:00)
[2018-03-09 23:25] VITALS: BP 159/81; PULSE 76; TEMP 36.4; O2SAT 98
[2018-03-10] VITALS (14 sets, daily range): BP systolic 120–171; BP diastolic 60–93; PULSE 68–85; TEMP 36.4–37.1; O2SAT 95–98
[2018-03-10] MEDS: SODIUM CHLORIDE 0.9% 1000ML 1,000 ML IV SCH (02:34)
[2018-03-10] MEDS: INSULIN ASPART 100 UNITS/ML 3 ML PEN SC SCH ×4 (06:00→18:00)
[2018-03-10 07:24] LABS: CREATININE 0.76 mg/dl (0.60-1.20); POTASSIUM 4.1 mmol/L (3.5-5.1)
[2018-03-10] MEDS ORDERED: EpHEDrine SULFATE INJ 50 MG/ML AMP IV PRN (08:30)
[2018-03-10] MEDS ORDERED: ATROPINE SULFATE 0.1 MG/ML 5ML SYR IV PRN (08:30)
[2018-03-10] MEDS ORDERED: LIDOCAINE HCL 2% 2 ML VIAL (20MG/ML) ONE (09:23)
[2018-03-10] MEDS ORDERED: PROPOFOL IV EMULSION 10 MG/ML 20 ML VIAL ONE ×2 (09:23→10:10)
--- NOTE | 2018-03-10 10:36 | [facility] Post Operative Brief Note ---
Immediate Operative Summary Operative Date Mar 10, 2018. Pre-Operative Diagnosis MELENA Post-Operative Diagnosis SAME PREOP Procedure(s) Performed COLONOSCOPY Surgeon DR. POOLE Bridge Opener Surgeon(s) none Estimated Blood Loss 0ml Findings Consistent with Post-Op Diagnosis Specimens NONE Drains None Anesthesia Type None Complication(s) none Disposition Accompanied Pt To Recover: no Disposition: Surgical ICU Overlapping Procedure I was immediately available: during the entire case
--- NOTE | 2018-03-10 10:51 | Anesthesiology Progress Note ---
Anesthesia Post Op Note Date & Time Mar 10, 2018 at 10:51 Vital Signs Pain Intensity: 4 Vital Signs Past 12 Hours Date Time Temp Pulse Resp B/P (MAP) Pulse Ox O2 Delivery O2 Flow Rate FiO2 03/10/18 08:00 36.6 74 16 122/70 (87) 95 Room Air 03/10/18 07:50 Room Air 03/10/18 00:05 Room Air 03/09/18 23:25 36.4 76 16 159/81 (107) 98 Room Air Notes Mental Status: alert / awake / arousable, participated in evaluation Pt Amnestic to Procedure: Yes Nausea / Vomiting: adequately controlled Pain: adequately controlled Airway Patency, RR, SpO2: stable & adequate BP & HR: stable & adequate Hydration State: stable & adequate Anesthetic Complications: no major complications apparent
--- NOTE | 2018-03-10 11:17 | GASTROENTEROLOGY PROGRESS NOTE ---
DATE: 03/10/2018 GASTROENTEROLOGY UPDATE PROGRESS NOTE SUBJECTIVE: Patient's events of overnight were reviewed, chart reviewed, patient examined. Patient underwent a colonoscopy prep for a positive tagged red blood cell scan suggesting bleeding either from the lower small-bowel region or perhaps in the region of the sigmoid colon. Colonoscopy today revealed mild sigmoid diverticulosis, hemorrhoids and a metallic clip in the cecum that was unattached and likely from an upstream prior small bowel enteroscopy where jejunal areas were clipped. There was no active or recent blood or clots noted. One area in the proximal colon had slightly darker colored stool but neither melena, maroon or clots were identified. Several centimeters of the terminal ileum were examined. There was no evidence of AVMs or mucosal lesions as a potential source. Patient had a recent capsule which identified no additional bleeding sources except for clips that were previously placed. Patient has recurrent GI bleeding requiring transfusions of unknown etiology. At this point, I believe it is prudent to consider evaluation at [facility] for possible double balloon endoscopy, both antegrade and retrograde in order to determine if there are any potential GI bleeding sources and apply therapy. Depending on her response, this may be considered as an inpatient transfer down to [place] if not outpatient will need to be arranged. LABORATORY STUDIES: Her hemoglobin today was 6.7, down from 6.8 at 4 o'clock this morning. She has not received any blood products as of yet, but 4 units ordered but need to come from an outside facility, presumably due to antibodies. ASSESSMENT AND PLAN: At the present time, there is no overt bleeding and BUN and creatinine are normal, suggesting that this is a more distal GI bleeding source below the ligament of Treitz and proximal small bowel. All questions were answered. We will follow with you. Continue monitoring hemoglobin. [facility]
[2018-03-10] MEDS: PANTOprazole INJ 40 MG in SYRINGE 0 ML IV SCH ×2 (11:30→21:32)
[2018-03-10] MEDS: MAGNESIUM SULFATE 1GM / D5W 100 ML IV SCH ×2 (11:31→13:27)
--- NOTE | 2018-03-10 11:43 | GI REPORT ---
Patient Name: Rosalind Dudley Procedure Date: 03/10/2018 8:30 AM Date of : 1945 Admit Type: Inpatient Age: 72 Gender: Female Attending MD: Chandler Bright MD Procedure: Colonoscopy Providers: Chandler Bright MD Referring MD: Wesley Suarez Indications: Gastrointestinal bleeding, Positive GI bleeding scan Medicines: Propofol per Anesthesia Complications: No immediate complications. Estimated blood loss: None. Estimated Blood Loss: Estimated blood loss: none. Procedure: Pre-Anesthesia Assessment: - Prior to the procedure, a History and Physical was performed, and patient medications and allergies were reviewed. The patient's tolerance of previous anesthesia was also reviewed. The risks and benefits of the procedure and the sedation options and risks were discussed with the patient. All questions were answered, and informed consent was obtained. Prior Anticoagulants: The patient has taken no previous anticoagulant or antiplatelet agents. ASA Grade Assessment: III - A patient with severe systemic disease. After reviewing the risks and benefits, the patient was deemed in satisfactory condition to undergo the procedure. After I obtained informed consent, the scope was passed under direct vision. Throughout the procedure, the patient's blood pressure, pulse, and oxygen saturations were monitored continuously. The scope was introduced through the anus and advanced to the terminal ileum, with identification of the appendiceal orifice and IC valve. The colonoscopy was performed without difficulty. The patient tolerated the procedure well. The quality of the bowel preparation was good. Findings: The perianal and digital rectal examinations were normal. Pertinent negatives include normal sphincter tone, no palpable rectal lesions and no anal lesion or abnormality was detected. Many small-mouthed diverticula were found in the sigmoid colon. Non-bleeding internal hemorrhoids were found during retroflexion. The hemorrhoids were mild. A foreign body was found in the cecum. migrated endoclip peviously applied to a jejunal source. The terminal ileum appeared normal. The exam was otherwise without abnormality. no sources of active/recent bleeding identifed Impression: - Diverticulosis in the sigmoid colon. - Non-bleeding internal hemorrhoids. - Foreign body in the cecum. - The examined portion of the ileum was normal. - The examination was otherwise normal. - No specimens collected. Recommendation: - [facility] to [facility]. - see progress note for details May need inpt transfer to [facility] or outpt double balloon endoscopy (retrograde and antegrade at [facility]) MD Chandler Dallas MD 03/10/2018 11:42:51 AM This report has been signed electronically. Note Initiated On: 03/10/2018 8:30 AM Number of Addenda: 0 I attest to the content of the Intraoperative Record and orders documented therein, exceptions below {[id number]}
[2018-03-10 13:41] LABS: HEMATOCRIT 23.4 % (37-47); HEMOGLOBIN 6.9 g/dL (12.0-16.0)
--- NOTE | 2018-03-10 15:22 | Family Medicine Progress Note ---
Progress Note Date of Service Mar 10, 2018. Subjective Pt evaluation today including: conversation w/ patient, physical exam, chart review, lab review Pain: mild abdominal discomfort PO Intake: npo except sips/ice chips Voiding: no voiding problems This PM pt reported some mild abdominal discomfort and tiredness but is otherwise is asymptomatic. Constitutional: No fever, No chills Respiratory: No shortness of breath Cardiovascular: No chest pain Abdomen: + pain, + GI bleeding, No nausea, No vomiting Female : No dysuria Neurologic: No problem reported Medications Current Inpatient Medications Medications (Trade) Dose Ordered Sig/Marcello Route Start Time Stop Time Status Last Admin Dose Admin Ondansetron HCl (Zofran Inj) 4 mg Q6H PRN IV 03/09/18 12:45 04/08/18 12:44 Pantoprazole Sodium 40 mg/ Syringe 10 ml @ 5 mls/min BID@0900,2100 IV 03/09/18 21:00 04/08/18 20:59 03/10/18 11:30 5 MLS/MIN Insulin Aspart (novoLOG ASPART) SLIDING SCALE G... Q6 SC 03/09/18 18:00 04/08/18 17:59 Glucose (Glucose 40% Gel) 15-30 GRAMS 15 GRAMS... UD PRN PO 03/09/18 13:45 04/08/18 13:44 Glucose (Glucose Chew Tab) 4-8 Tablets 4 Tabl... UD PRN PO 03/09/18 13:45 04/08/18 13:44 Dextrose (Dextrose 50% 50ML Syringe) 25-50ML 25ML FOR ... UD PRN IV 03/09/18 13:45 04/08/18 13:44 Glucagon (Glucagon Inj) 1 mg UD PRN IM 03/09/18 13:45 04/08/18 13:44 Carbohydrates (Carbohydrates For Hypoglycemia) 15-30 GRAMS 15 grams if BSG 54-69... UD PRN PO 03/09/18 13:45 04/08/18 13:44 Miscellaneous (Iv Fluids Completed) 1 ea PRN PRN N/A 03/09/18 14:00 03/09/19 13:59 Objective Vital Signs Date Time Temp Pulse Resp B/P (MAP) Pulse Ox O2 Delivery O2 Flow Rate FiO2 03/10/18 12:10 85 18 131/60 (83) 98 Room Air 03/10/18 11:15 36.8 84 16 137/75 (95) 97 Room Air 03/10/18 11:15 Room Air 03/10/18 10:55 36.6 85 14 158/76 98 Room Air 03/10/18 10:45 86 18 160/78 100 Room Air 03/10/18 10:36 36.6 96 20 150/64 98 Room Air 03/10/18 08:00 36.6 74 16 122/70 (87) 95 Room Air 03/10/18 07:50 Room Air 03/10/18 00:05 Room Air 03/09/18 23:25 36.4 76 16 159/81 (107) 98 Room Air 03/09/18 17:35 98 Nasal Cannula Physical Exam General Appearance: no apparent distress Eyes: normal inspection ENT: hearing grossly normal Respiratory/Chest: lungs clear, normal breath sounds, no respiratory distress Cardiovascular: regular rate, rhythm, + systolic murmur Abdomen: normal bowel sounds, soft, + tenderness (diffuse mild TTP) Extremities: non-tender, no pedal edema Neurologic/Psychiatric: alert, oriented x 3 Skin: normal color, + pallor Laboratory Results 03/10/18 13:20 03/10/18 06:48 Test 03/10/18 06:48 03/10/18 11:44 Anion Gap 8.0 mmol/L (3-11) Est Creatinine Clear Calc Drug Dose 72.1 ml/min Estimated GFR () 89.6 Estimated GFR (Non- 77.3 BUN/Creatinine Ratio 25.3 (10-20) Calcium Level 8.0 mg/dl (8.5-10.1) Magnesium Level 1.2 mg/dl (1.8-2.4) Bedside Glucose 135 mg/dl (70-90) Assessment and Plan 72 y/oF with Hx of MGUS, HTN, HPL, DM II, and recurrent GI bleeds. She presented twice for black tarry stool in December. On 12/29, EGD revealed bleeding angioectasias in the duodenum and proximal jejunum which required cauterization. On 01/10, repeat EGD demonstrated grade I esophageal varices, gastritis and no identifiable source of bleeding. Bleeding had resolved spontaneously and she was sent home on a PPI with plans to pursue a pill endoscopy which did not provide any additional helpful information. Admitted again for black tarry stool. Tagged RBC concerning for LLQ GI bleed ( small bowel vs. sigmoid vs. transverse). However, colonoscopy with no active bleeding source, sigmoid diverticulosis, mild non-bleeding hemorrhoids and clip found in cecum likely migrated endoclip from previous jejunal source. GI bleed likely from small bowel. Hgb of 7.8 on admission down to 6.9 now from recent Hgb of 8.4. Having improved mild abdominal discomfort and is otherwise asymptomatic. Recurrent GI bleed - likely small intestinal - Tagged RBC scan: concerning for LLQ GI bleed (small bowel vs. sigmoid vs. transverse) - GI consulted - colonoscopy: no active bleeding source, sigmoid diverticulosis, mild non- bleeding hemorrhoids and clip found in cecum likely migrated endoclip from previous jejunal source - monitor H&H and supportive care - may need transfer to [facility] or outpatient double balloon endoscopy ( retrograde and anterograde) at [facility] [place] - NPO except ice and water sips - Continue IVF NS at 75mls/hr - Continue Protonix 40mg IV BID - Continue to monitor H&H Q6H - Hgb 6.9 this PM will transfuse with 2 units once blood available from blood bank DM II - ACHS accuchecks and SSI HTN - PO meds held - PRN Hydralazine HLD - resume statin when bleeding resolves. Hypomagnesemia - Received 2g ordered in ED for Mag of 1 - recheck this AM 1.2 and received 2g Mag again Full code DVT prop: SCDs; chemical contraindicated Dispo: pending Hgb stable and clinically improved Resident Involvement: Resident Care Provided Care Provided: Adult [facility] Medicine Assessment/Plan Resident Physician Supervision Note: I was present with Dr. Zambrano during the history and exam. I discussed the case with the resident and agree with the findings and plan as documented in the note. Any exceptions or clarifications are listed here: Pt seen and examined at bedside. Complaining of persistent fatigue and overall tiredness, worse in the legs which is unchanged from yesterday and mild lower abdominal pain which waxes and wanes. Reports no further BRBPR or melena, lightheadedness, chest pain, SOB, BLAKE, vision changes. On Examination, 2/6 SHAWN of over the left 2nd IC. CTAB. Abd nondistended, TTP mildly over the b/l LQ and w/ good BS throughout. AGIB, recurrent - gastroenterology aware - endoclip on colonoscopy without apparent bleed, so likely small bowel bleed. Hgb stable at present. Continue IV PPI, transfuse to goal of 8 if < 7. Trend H/H q6 MGUS w/ h/o ab complicating transfusion - awaiting blood for above Hypomagnesemia - replete, repeat in AM
[2018-03-10] MEDS ORDERED: ACETAMINOPHEN 325 MG TAB PO PRN (19:00)
[2018-03-10 22:15] LABS: HEMOGLOBIN 8.1 g/dL (12.0-16.0)
[2018-03-11 00:15] VITALS: BP 132/69; PULSE 79; TEMP 37; O2SAT 94
[2018-03-11 02:06] LABS: HEMATOCRIT 26.4 % (37-47); HEMOGLOBIN 8.1 g/dL (12.0-16.0)
[2018-03-11 04:10] VITALS: BP 127/62; PULSE 75; TEMP 37; O2SAT 94
[2018-03-11] MEDS: INSULIN ASPART 100 UNITS/ML 3 ML PEN SC SCH ×4 (06:00→18:00)
[2018-03-11 06:26] LABS: BASO % 0.6 %; BASO ABS # 0.02 K/uL (0-0.2); EOS % 7.7 %; EOS ABS # 0.24 K/uL (0-0.5); HEMATOCRIT 26.8 % (37-47); HEMOGLOBIN 8.2 g/dL (12.0-16.0); LYMPH % 34.2 %; LYMPH ABS # 1.06 K/uL (1.2-3.4); MEAN CELL VOLUME 76.4 fL (80-100); MEAN CORPUSCULAR HEMOGLOBIN 23.4 pg (25-34); MEAN CORPUSCULAR HGB CONC 30.6 g/dl (32-36); MEAN PLATELET VOLUME 9.3 fL (7.4-10.4); MONO % 11.6 %; MONO ABS # 0.36 K/uL (0.11-0.59); NEUT % 45.9 %; NEUT ABS # 1.42 K/uL (1.4-6.5); PLATELET COUNT 104 K/uL (130-400); RED CELL DISTRIBUTION WIDTH CV 19.2 % (11.5-14.5); RED CELL DISTRIBUTION WIDTH SD 53.7 fL (36.4-46.3)
[2018-03-11 07:01] LABS: CALCIUM 7.8 mg/dl (8.5-10.1); CREATININE 0.7 mg/dl (0.60-1.20)
[2018-03-11 07:28] VITALS: BP 134/75; PULSE 72; TEMP 36.7; O2SAT 96
[2018-03-11] MEDS: SODIUM CHLORIDE 0.9% 1000ML 1,000 ML IV SCH ×2 (07:47→20:39)
[2018-03-11] MEDS: MAGNESIUM SULFATE 1GM / D5W 100 ML IV SCH ×2 (08:26→09:35)
[2018-03-11] MEDS: PANTOprazole INJ 40 MG in SYRINGE 0 ML IV SCH ×2 (08:27→20:39)
--- NOTE | 2018-03-11 12:03 | GASTROENTEROLOGY PROGRESS NOTE ---
DATE: 03/11/2018 SUBJECTIVE: Chart reviewed, patient examined. The patient is doing well at the present time, sitting in the chair comfortably. Her hemoglobin remains stable at 8.2 following the 2 units of packed red blood cells on March 10. I reviewed the results of the colonoscopy from yesterday which revealed hemorrhoids and sigmoid diverticulosis, but no active or recent bleeding or obvious sources of bleeding into the terminal ileum. MEDICATIONS: Include pantoprazole, insulin, p.r.n. Zofran. LABORATORY STUDIES: Hemoglobin 8.2, MCV is low at 76, platelets 104,000. OBJECTIVE: VITAL SIGNS: Today, blood pressure 134/75, temperature 36.7, heart rate 72, respirations 16, 96% on room air. GENERAL: The patient is awake, alert and oriented x3. HEENT: Sclerae are anicteric, conjunctiva moist. Oral mucosa moist. HEART: Normal S1, S2. LUNGS: Clear to auscultation. ABDOMEN: Soft, flat, nontender, nondistended. Good bowel sounds. EXTREMITIES: Without clubbing, cyanosis or edema. RECTAL: Deferred. IMPRESSION AND PLAN: I spoke with the patient regarding the challenges in finding the source of bleeding. Presently, she has undergone several upper endoscopies and push enteroscopy, which did apply clips and cautery to potential jejunal AVMs. One of these clips had migrated into the cecum on yesterday's colonoscopy. This video small bowel capsule study had identified clips previously placed, but no additional sources of significant bleeding were identified. Two colonoscopies that in May 2017 and the current one did not reveal obvious mucosal lesions. I do not see any prior Meckel's scan and although this is unlikely, I believe it is reasonable to exclude this and will see if this can be arranged for Monday. If this is unrevealing and the hemoglobin remains stable, then tentative discharge is reasonable with the intention to send the patient for [facility] for outpatient double balloon endoscopy, (likely bidirectional). If there is any evidence of bleeding, continued drop in hemoglobin or if the Meckel's scan is positive, then surgical evaluation or transfer to [facility] would be the most likely next step. Will follow with you. DAY
--- NOTE | 2018-03-11 14:24 | Family Medicine Progress Note ---
Progress Note Date of Service Mar 11, 2018. Subjective Pt evaluation today including: conversation w/ patient, physical exam, chart review, lab review Pain: mild abdominal discomfort PO Intake: NPO Voiding: no voiding problems This AM reported improved headache and abdominal pain Denied any nausea/vomiting Reported a watery and green BM (denied any melena or bright red blood) Constitutional: No fever Respiratory: No shortness of breath Cardiovascular: No chest pain Abdomen: + pain, + diarrhea, No nausea, No vomiting Female : No dysuria Neurologic: + problem reported (headache improving) Medications Current Inpatient Medications Medications (Trade) Dose Ordered Sig/Marcello Route Start Time Stop Time Status Last Admin Dose Admin Ondansetron HCl (Zofran Inj) 4 mg Q6H PRN IV 03/09/18 12:45 04/08/18 12:44 Pantoprazole Sodium 40 mg/ Syringe 10 ml @ 5 mls/min BID@0900,2100 IV 03/09/18 21:00 04/08/18 20:59 03/11/18 08:27 5 MLS/MIN Insulin Aspart (novoLOG ASPART) SLIDING SCALE G... Q6 SC 03/09/18 18:00 04/08/18 17:59 Glucose (Glucose 40% Gel) 15-30 GRAMS 15 GRAMS... UD PRN PO 03/09/18 13:45 04/08/18 13:44 Glucose (Glucose Chew Tab) 4-8 Tablets 4 Tabl... UD PRN PO 03/09/18 13:45 04/08/18 13:44 Dextrose (Dextrose 50% 50ML Syringe) 25-50ML 25ML FOR ... UD PRN IV 03/09/18 13:45 04/08/18 13:44 Glucagon (Glucagon Inj) 1 mg UD PRN IM 03/09/18 13:45 04/08/18 13:44 Carbohydrates (Carbohydrates For Hypoglycemia) 15-30 GRAMS 15 grams if BSG 54-69... UD PRN PO 03/09/18 13:45 04/08/18 13:44 Miscellaneous (Iv Fluids Completed) 1 ea PRN PRN N/A 03/09/18 14:00 03/09/19 13:59 Acetaminophen (Tylenol Tab) 650 mg Q6H PRN PO 03/10/18 19:00 04/09/18 18:59 8/18/18 19:12 650 MG Sodium Chloride 1,000 ml @ 75 mls/hr [id number] IV 03/11/18 07:15 04/10/18 07:14 03/11/18 07:47 75 MLS/HR Objective Vital Signs Date Time Temp Pulse Resp B/P (MAP) Pulse Ox O2 Delivery O2 Flow Rate FiO2 03/11/18 15:10 36.6 63 18 152/70 (97) 98 Room Air 03/11/18 15:00 Room Air 03/11/18 07:45 Room Air 03/11/18 07:28 36.7 72 16 134/75 (94) 96 Room Air 03/11/18 04:10 37.0 75 16 127/62 (83) 94 Room Air 03/11/18 00:15 37.0 79 16 132/69 (90) 94 Room Air 03/10/18 23:15 Room Air 03/10/18 21:29 37.0 73 18 127/75 95 03/10/18 20:51 37.1 79 18 156/86 97 03/10/18 20:01 36.7 74 18 142/83 97 03/10/18 19:25 83 18 171/93 96 03/10/18 19:05 36.8 78 18 147/83 97 03/10/18 18:37 36.6 77 18 161/81 98 03/10/18 17:13 36.8 77 18 120/70 97 Physical Exam General Appearance: no apparent distress Eyes: normal inspection ENT: hearing grossly normal Respiratory/Chest: no respiratory distress, + crackles (LLL), + pertinent finding (coarse breath sounds ) Cardiovascular: regular rate, rhythm, no murmur Abdomen: normal bowel sounds, soft, + tenderness (mild TTP mainly of epigastric region) Extremities: non-tender, + swelling (trace LE edema bilaterally) Neurologic/Psychiatric: alert, oriented x 3 Skin: warm/dry Laboratory Results 03/11/18 05:42 Red Blood Count 3.51, Mean Corpuscular Volume 76.4, Mean Corpuscular Hemoglobin 23.4, Mean Corpuscular Hemoglobin Concent 30.6, Mean Platelet Volume 9.3, Neutrophils (%) (Auto) 45.9, Lymphocytes (%) (Auto) 34.2, Monocytes (%) (Auto) 11.6, Eosinophils (%) (Auto) 7.7, Basophils (%) (Auto) 0.6, Neutrophils # (Auto ) 1.42, Lymphocytes # (Auto) 1.06, Monocytes # (Auto) 0.36, Eosinophils # (Auto ) 0.24, Basophils # (Auto) 0.02 03/11/18 14:33 03/11/18 05:42 Test 03/11/18 05:42 03/11/18 11:56 White Blood Count 3.10 K/uL (4.8-10.8) Red Blood Count 3.51 M/uL (4.2-5.4) Hemoglobin 8.2 g/dL (12.0-16.0) Hematocrit 26.8 % (37-47) Mean Corpuscular Volume 76.4 fL (80-100) Mean Corpuscular Hemoglobin 23.4 pg (25-34) Mean Corpuscular Hemoglobin Concent 30.6 g/dl (32-36) Platelet Count 104 K/uL (130-400) Mean Platelet Volume 9.3 fL (7.4-10.4) Neutrophils (%) (Auto) 45.9 % Lymphocytes (%) (Auto) 34.2 % Monocytes (%) (Auto) 11.6 % Eosinophils (%) (Auto) 7.7 % Basophils (%) (Auto) 0.6 % Neutrophils # (Auto) 1.42 K/uL (1.4-6.5) Lymphocytes # (Auto) 1.06 K/uL (1.2-3.4) Monocytes # (Auto) 0.36 K/uL (0.11-0.59) Eosinophils # (Auto) 0.24 K/uL (0-0.5) Basophils # (Auto) 0.02 K/uL (0-0.2) RDW Standard Deviation 53.7 fL (36.4-46.3) RDW Coefficient of Variation 19.2 % (11.5-14.5) Immature Granulocyte % (Auto) 0.0 % Immature Granulocyte # (Auto) 0.00 K/uL (0.00-0.02) Hypochromasia PRESENT Anisocytosis PRESENT Anion Gap 7.0 mmol/L (3-11) Est Creatinine Clear Calc Drug Dose 78.3 ml/min Estimated GFR () 98.9 Estimated GFR (Non- 85.4 BUN/Creatinine Ratio 20.5 (10-20) Calcium Level 7.8 mg/dl (8.5-10.1) Magnesium Level 1.4 mg/dl (1.8-2.4) Bedside Glucose 153 mg/dl (70-90) Assessment and Plan 72 y/oF with Hx of MGUS, HTN, HPL, DM II, and recurrent GI bleeds. She presented twice for black tarry stool in December. On 12/29, EGD revealed bleeding angioectasias in the duodenum and proximal jejunum which required cauterization. On 01/10, repeat EGD demonstrated grade I esophageal varices, gastritis and no identifiable source of bleeding. Bleeding had resolved spontaneously and she was sent home on a PPI with plans to pursue a pill endoscopy which did not provide any additional helpful information. Admitted again for black tarry stool. Tagged RBC concerning for LLQ GI bleed ( small bowel vs. sigmoid vs. transverse). However, colonoscopy with no active bleeding source, sigmoid diverticulosis, mild non-bleeding hemorrhoids and clip found in cecum likely migrated endoclip from previous jejunal source. GI bleed likely from small bowel. Hgb downtrended to 6.9 from recent Hgb of 8.4. Now improved to 9.4 s/p 2 units of pRBC. Abdominal pain improved. Scheduled for Meckels scan tomorrow Recurrent GI bleed - likely small intestinal - Tagged RBC scan: concerning for LLQ GI bleed (small bowel vs. sigmoid vs. transverse) - GI consulted - colonoscopy: no active bleeding source, sigmoid diverticulosis, mild non- bleeding hemorrhoids and clip found in cecum likely migrated endoclip from previous jejunal source - monitor H&H and supportive care - recommended meckels scan - if meckels scan negative, and Hgb stable arrange for outpatient double balloon endoscopy (retrograde and anterograde) at [facility] - if meckels scan positive and bleeding surgical evaluation and/or transfer to [facility] - NPO after midnight for possible meckels scan - Continue IVF NS at 75mls/hr - Continue Protonix 40mg IV BID - Continue to monitor H&H Q12H - Hgb 8.2 this AM and this PM 9.4 after 2 units of pRBC transfusion Atelectasis - mild crackles LLL without any sob, tachypnea or hypoxia - ordered IS - Continue to monitor DM II - ACHS accuchecks and SSI HTN - PO meds held - PRN Hydralazine HLD - resume statin when bleeding resolves. Hypomagnesemia - persistent - Received 2g ordered in ED for Mag of 1 - recheck 03/10 AM 1.2 and received 2g Mag again - This AM 1.4 and received another 2g Mag Sulfate Full code DVT prop: SCDs; chemical contraindicated Dispo: pending Hgb stable and clinically improved Resident Involvement: Resident Care Provided Care Provided: [facility] Medicine Assessment/Plan Resident Physician Supervision Note: I was present with Dr. Zambrano during the history and exam. I discussed the case with the resident and agree with the findings and plan as documented in the note. Any exceptions or clarifications are listed here: Pt seen and examined at bedside. Fatigue and weakness improved s/p transfusion. Reports no further BRBPR or melena, lightheadedness, chest pain, SOB, BLAKE, vision changes. On Examination, 2/6 SHAWN of over the left 2nd IC. CTAB. Abd nondistended, TTP mildly over the b/l LQ, +ve BS AGIB, recurrent - gastroenterology aware - endoclip on colonoscopy without apparent bleed, so likely small bowel bleed. Hgb stable at present. Continue IV PPI, transfuse to goal of 8 if < 7. Trend H/H q8 - GI considering meckel's scan , then either outpatient evaluation or transfer to [facility] depending on recurrent symptoms/bleeding MGUS w/ h/o ab complicating transfusion - transfused, will need blood from bank , so prepare in advance if transfusion needed Hypomagnesemia -improved, follow in AM
[2018-03-11 15:02] LABS: HEMATOCRIT 31.2 % (37-47); HEMOGLOBIN 9.4 g/dL (12.0-16.0)
[2018-03-11 15:10] VITALS: BP 152/70; PULSE 63; TEMP 36.6; O2SAT 98
[2018-03-11 23:10] VITALS: BP 155/78; PULSE 73; TEMP 37.4; O2SAT 96
[2018-03-12] MEDS: INSULIN ASPART 100 UNITS/ML 3 ML PEN SC SCH ×4 (05:52→18:00)
[2018-03-12 06:34] LABS: CALCIUM 7.5 mg/dl (8.5-10.1); CREATININE 0.69 mg/dl (0.60-1.20); POTASSIUM 3.9 mmol/L (3.5-5.1)
[2018-03-12 06:42] LABS: HEMOGLOBIN 8.2 g/dL (12.0-16.0); MEAN CELL VOLUME 76.3 fL (80-100); MEAN CORPUSCULAR HEMOGLOBIN 23.2 pg (25-34); MEAN CORPUSCULAR HGB CONC 30.4 g/dl (32-36); PLATELET COUNT 104 K/uL (130-400); RED CELL DISTRIBUTION WIDTH CV 19.4 % (11.5-14.5); RED CELL DISTRIBUTION WIDTH SD 54.1 fL (36.4-46.3); WHITE BLOOD COUNT 3.18 K/uL (4.8-10.8)
[2018-03-12 06:56] VITALS: BP 168/68; PULSE 69; TEMP 36.8; O2SAT 96
[2018-03-12] MEDS ORDERED: RANITIDINE HCL 150 MG TAB PO ONE (09:00)
[2018-03-12] MEDS: PANTOprazole INJ 40 MG in SYRINGE 0 ML IV SCH ×2 (09:09→21:30)
[2018-03-12] MEDS: SODIUM CHLORIDE 0.9% 1000ML 1,000 ML IV SCH ×2 (09:49→23:05)
--- NOTE | 2018-03-12 10:50 | Clinical Documentation Query ---
CLINICAL DOCUMENTATION QUERY 72 year old female who presents to the Emergency Room with a referral from her PCP for intermittent black and tarry stools. In your clinical opinion is this patient being managed for: ( x) Acute blood loss anemia treated with 2 units of PRBC's ( ) Not Agree ( ) Other explanation of clinical findings (No explanation is considered a No Response) ( ) Unable to determine ( ) Need to Discuss (Phone CDS or qliq) (No discussion is considered a No Response) The medical record reflects the following clinical findings, treatment, and risk factors. Clinical Indicators: Hgb 6.8, Treatment: H/H q6hrs, 2 units of PRBC's, Risk Factors: GI bleed Please clarify and document your clinical opinion in the progress notes and discharge summary. Terms such as "probable", "suspected", "likely", "questionable", "possible", or "still to be ruled out" are acceptable. IF IN AGREEMENT, YOU MUST DOCUMENT ABOVE DIAGNOSTIC STATEMENT IN DAILY PROGRESS NOTES AND DISCHARGE SUMMARY. This document is not part of the patient's record. Thank You, Raleigh Scott RN [phone] & via qlicCONNECT
--- NOTE | 2018-03-12 13:03 | DIAGNOSTIC IMAGING REPORT ---
GI MECKLES SCAN HISTORY: 72 years-old Female recurrent GI bleeding suspected lower SB follow-up study in a patient with recurrent GI bleed. COMPARISON: GI bleeding scan 03/09/2018 TECHNIQUE: Multiple planar scintigraphic images of the abdomen and pelvis were obtained following the intravenous administration of 17.2 mCi technetium 99 sodium pertechnetate for a Meckels scan. FINDINGS: Physiologic tracer activity is noted within the stomach and urinary bladder. Ill-defined increased tracer activity is noted within the distribution of the abdominal left upper quadrant, just inferior to the stomach which moves throughout the exam suggesting activity within a peristalsing small bowel loop. No increased radiotracer uptake noted within the abdominal right lower quadrant to suggest a Meckel's diverticulum. IMPRESSION: 1. No evidence of Meckel's diverticulum. 2. Moving focus of mild radiotracer uptake within the abdominal left upper quadrant suggests uptake within a small bowel loop. With history of GI bleed, this is concerning for area of acute small bowel hemorrhage with infectious or inflammatory enteritis also in the differential. The above report was generated using voice recognition software. It may contain grammatical, syntax or spelling errors. Electronically signed by: Haile Reyna M.D. 03/12/2018 1:02 PM Dictated Date/Time: 03/12/2018 12:45 PM
[2018-03-12 15:26] VITALS: BP 148/79; PULSE 69; TEMP 36.8; O2SAT 96
--- NOTE | 2018-03-12 17:44 | Family Medicine Progress Note ---
Progress Note Date of Service Mar 12, 2018. Subjective Pt evaluation today including: conversation w/ patient, conversation w/ family , physical exam, chart review, lab review, review of inpatient medication list Pain: No pain reported PO Intake: NPO Voiding: no voiding problems Ms. Dudley reports she is anxious to find the cause of her bleeding. She denies any further episodes of black tarry stools. She denies abdominal pain, lightheadedness, chest pain or shortness of breath. Constitutional: No fever, No chills Respiratory: No shortness of breath Cardiovascular: No chest pain Abdomen: No pain, No nausea, No vomiting, No diarrhea All Other Systems: Reviewed and Negative Medications Current Inpatient Medications Medications (Trade) Dose Ordered Sig/Marcello Route Start Time Stop Time Status Last Admin Dose Admin Ondansetron HCl (Zofran Inj) 4 mg Q6H PRN IV 03/09/18 12:45 04/08/18 12:44 Pantoprazole Sodium 40 mg/ Syringe 10 ml @ 5 mls/min BID@0900,2100 IV 03/09/18 21:00 04/08/18 20:59 03/12/18 09:09 5 MLS/MIN Insulin Aspart (novoLOG ASPART) SLIDING SCALE G... Q6 SC 03/09/18 18:00 04/08/18 17:59 Glucose (Glucose 40% Gel) 15-30 GRAMS 15 GRAMS... UD PRN PO 03/09/18 13:45 04/08/18 13:44 Glucose (Glucose Chew Tab) 4-8 Tablets 4 Tabl... UD PRN PO 03/09/18 13:45 04/08/18 13:44 Dextrose (Dextrose 50% 50ML Syringe) 25-50ML 25ML FOR ... UD PRN IV 03/09/18 13:45 04/08/18 13:44 Glucagon (Glucagon Inj) 1 mg UD PRN IM 03/09/18 13:45 04/08/18 13:44 Carbohydrates (Carbohydrates For Hypoglycemia) 15-30 GRAMS 15 grams if BSG 54-69... UD PRN PO 03/09/18 13:45 04/08/18 13:44 Miscellaneous (Iv Fluids Completed) 1 ea PRN PRN N/A 03/09/18 14:00 03/09/19 13:59 Acetaminophen (Tylenol Tab) 650 mg Q6H PRN PO 03/10/18 19:00 04/09/18 18:59 03/10/18 19:12 650 MG Sodium Chloride 1,000 ml @ 75 mls/hr [id number] IV 03/11/18 07:15 04/10/18 07:14 03/12/18 09:49 75 MLS/HR Objective Vital Signs Date Time Temp Pulse Resp B/P (MAP) Pulse Ox O2 Delivery O2 Flow Rate FiO2 03/12/18 15:26 36.8 69 18 148/79 (102) 96 Room Air 03/12/18 07:50 Room Air 03/12/18 06:56 36.8 69 16 168/68 (101) 96 Room Air 03/11/18 23:15 Room Air 03/11/18 23:10 37.4 73 18 155/78 (103) 96 Room Air Physical Exam General Appearance: WD/WN, no apparent distress Respiratory/Chest: lungs clear, normal breath sounds, no respiratory distress, no accessory muscle use Cardiovascular: regular rate, rhythm, no edema, no murmur Abdomen: non tender, soft Neurologic/Psychiatric: alert, normal mood/affect, oriented x 3 Laboratory Results Last 24 Hours Test 03/11/18 18:04 03/11/18 23:55 03/12/18 05:50 03/12/18 05:51 Bedside Glucose 108 mg/dl 106 mg/dl 109 mg/dl White Blood Count 3.18 K/uL Red Blood Count 3.54 M/uL Hemoglobin 8.2 g/dL Hematocrit 27.0 % Mean Corpuscular Volume 76.3 fL Mean Corpuscular Hemoglobin 23.2 pg Mean Corpuscular Hemoglobin Concent 30.4 g/dl RDW Standard Deviation 54.1 fL RDW Coefficient of Variation 19.4 % Platelet Count 104 K/uL Mean Platelet Volume 9.0 fL Platelet Estimate DECREASED Sodium Level 140 mmol/L Potassium Level 3.9 mmol/L Chloride Level 108 mmol/L Carbon Dioxide Level 25 mmol/L Anion Gap 7.0 mmol/L Blood Urea Nitrogen 11 mg/dl Creatinine 0.69 mg/dl Est Creatinine Clear Calc Drug Dose 79.4 ml/min Estimated GFR () 99.4 Estimated GFR (Non- 85.8 BUN/Creatinine Ratio 15.9 Random Glucose 100 mg/dl Calcium Level 7.5 mg/dl Magnesium Level 1.3 mg/dl Test 03/12/18 12:35 03/12/18 13:34 03/12/18 16:56 Bedside Glucose 109 mg/dl 95 mg/dl Hemoglobin 8.9 g/dL Assessment and Plan 72 y/oF with Hx of MGUS, HTN, HPL, DM II, and recurrent GI bleeds. She presented twice for black tarry stool in December. On 12/29, EGD revealed bleeding angioectasias in the duodenum and proximal jejunum which required cauterization. On 01/10, repeat EGD demonstrated grade I esophageal varices, gastritis and no identifiable source of bleeding. Bleeding had resolved spontaneously and she was sent home on a PPI with plans to pursue a pill endoscopy which did not provide any additional helpful information. Admitted again for black tarry stool. Tagged RBC concerning for LLQ GI bleed ( small bowel vs. sigmoid vs. transverse). However, colonoscopy with no active bleeding source, sigmoid diverticulosis, mild non-bleeding hemorrhoids and clip found in cecum likely migrated endoclip from previous jejunal source. GI bleed likely from small bowel. Hgb downtrended to 6.9 from recent Hgb of 8.4. Now improved to 9.4 s/p 2 units of pRBC. Abdominal pain improved. Recurrent GI bleed - likely small intestinal - Tagged RBC scan:concerning for LLQ GI bleed (small bowel vs. sigmoid vs. transverse) - GI consulted - colonoscopy: no active bleeding source, sigmoid diverticulosis, mild non- bleeding hemorrhoids and clip found in cecum likely migrated endoclip from previous jejunal source - Meckels scan done today w/radiotracer uptake within abdominal left upper quadrant suggests uptake within a small bowel loop - possible small bowel hemorrhage - rescope tomorrow w/push enteroscopy - low threshold to transfer to [facility] - clear liquids now and NPO after midnight for scope - Continue IVF NS at 75mls/hr - Continue Protonix 40mg IV BID - Continue to monitor H&H Q12H - Hgb stable at 8.9 this afternoon DM II - ACHS accuchecks and SSI HTN - holding home lisinopril - PRN Hydralazine HLD - resume statin when bleeding resolves. Hypomagnesemia - persistent - Received 2g ordered in ED for Mag of 1 - recheck 03/10 AM 1.2 and received 2g Mag again - Yesterday AM, level was 1.4 and received another 2g Mag Sulfate - 1.3 today - will recheck Mg tomorrow as expect to rise after 24h of supplementation Full code DVT proph: SCDs; chemical contraindicated Dispo: pending Hgb stable and clinically improved Resident Physician Supervision Note: I interviewed and examined the patient. Discussed with Dr. Cui and agree with findings and plan as documented in the note. 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 medically stable but bleeding has been an ongoing subacute issue leading to repeated declines. Resident Tracking Resident Involvement: Resident Care Provided Care Provided: Adult Hospital Medicine
[2018-03-12] MEDS ORDERED: NURSING VERBAL MED ORDER ONE ×2 (18:15→23:30)
--- NOTE | 2018-03-12 18:49 | GASTROENTEROLOGY PROGRESS NOTE ---
DATE: 03/12/2018 SUBJECTIVE: Chart reviewed. Patient examined. Results of Meckel scan noted. There was no evidence for Meckel's diverticulum; however, there was tracer present in the left upper quadrant that perhaps suggests bleeding within a loop of small bowel. The patient last received 2 units of packed blood cells on March 10. Her hemoglobin is 8.9 today and up from 8.2 this morning. REVIEW OF SYSTEMS: Otherwise noncontributory. ALLERGIES: No allergies are noted. MEDICATIONS: Include pantoprazole b.i.d. IV, insulin, Zofran p.r.n. PHYSICAL EXAMINATION: VITAL SIGNS: Today blood pressure 148/79, respirations 18, heart rate 69, temperature 36.8 degrees, and 96% on room air. GENERAL: The patient is awake, alert, and oriented x3, accompanied by her son. HEENT: Sclerae are anicteric, conjunctivae moist. HEART: Normal S1, S2. LUNGS: Clear to auscultation. ABDOMEN: Obese, nontender, nondistended. Good bowel sounds. There is trace to +1 pitting edema bilaterally. RECTAL: Deferred. IMPRESSION AND PLAN: Questionable tracer activity in the left upper quadrant, presumably in a loop of small bowel. This may correlate with an area previously identified and treated with endoclips on 01/18/2018. At that time, there were small sessile polyps identified in the jejunum that was felt to be perhaps related to prior cautery effect and granulation tissue with 2 hemostatic clips placed in that area. This was at 100 cm from the incisors approximately. There were also grade 1 esophageal varices in lower third of the esophagus. Would favor an EGD, push enteroscopy tomorrow and will make arrangements for this with Dr. Garcia who is on service beginning tomorrow. Full liquids are reasonable tonight but the patient may with clear liquids (no red beverages) after midnight until no later than 9:00 a.m. with anticipated endoscopy tomorrow in the early afternoon. The features of portal hypertension were mild on the December endoscopy and I do not suspect that this is a bleeding source. The nature of the granulation tissue that was previously seen is unclear and would see if these areas persist. The patient will need a push enteroscopy for this extent achievable for tomorrow. If bleeding persists, then I believe evaluation at [place] as an outpatient for a double balloon antegrade and retrograde studies would be beneficial given the pattern of suspected bleeding on the bleeding scan and Meckel scan. All questions answered. JOD
[2018-03-12] MEDS ORDERED: INSULIN ASPART 100 UNITS/ML 3 ML PEN SC SCH (21:00)
[2018-03-12 23:25] VITALS: BP 130/77; PULSE 67; TEMP 36.8; O2SAT 97
[2018-03-13 00:05] VITALS: O2SAT 97
[2018-03-13] MEDS: INSULIN ASPART 100 UNITS/ML 3 ML PEN SC SCH ×3 (05:59→12:00)
[2018-03-13 06:15] LABS: BASO % 0.5 %; BASO ABS # 0.02 K/uL (0-0.2); EOS % 6.2 %; EOS ABS # 0.23 K/uL (0-0.5); HEMATOCRIT 29.3 % (37-47); HEMOGLOBIN 8.9 g/dL (12.0-16.0); IG# 0.01 K/uL (0.00-0.02); LYMPH % 35.1 %; LYMPH ABS # 1.31 K/uL (1.2-3.4); MEAN CELL VOLUME 76.5 fL (80-100); MEAN CORPUSCULAR HEMOGLOBIN 23.2 pg (25-34); MEAN CORPUSCULAR HGB CONC 30.4 g/dl (32-36); MEAN PLATELET VOLUME 9.5 fL (7.4-10.4); MONO % 12.1 %; MONO ABS # 0.45 K/uL (0.11-0.59); NEUT % 45.8 %; NEUT ABS # 1.71 K/uL (1.4-6.5); PLATELET COUNT 126 K/uL (130-400); RED CELL DISTRIBUTION WIDTH CV 19.6 % (11.5-14.5); WHITE BLOOD COUNT 3.73 K/uL (4.8-10.8)
[2018-03-13 06:50] LABS: CALCIUM 7.6 mg/dl (8.5-10.1); CREATININE 0.72 mg/dl (0.60-1.20)
[2018-03-13 07:23] VITALS: BP 146/82; PULSE 71; TEMP 37; O2SAT 94
[2018-03-13] MEDS: PANTOprazole INJ 40 MG in SYRINGE 0 ML IV SCH (09:04)
[2018-03-13] MEDS: MAGNESIUM SULFATE 1GM / D5W 100 ML IV SCH ×2 (09:54→11:13)
[2018-03-13] MEDS: SODIUM CHLORIDE 0.9% 1000ML 1,000 ML IV SCH (12:54)
[2018-03-13] MEDS ORDERED: LIDOCAINE HCL 2% 2 ML VIAL (20MG/ML) ONE (13:10)
[2018-03-13] MEDS ORDERED: PROPOFOL IV EMULSION 10 MG/ML 20 ML VIAL ONE (13:10)
--- NOTE | 2018-03-13 13:36 | Endo History and Physical ---
History & Physical Date of Service: Mar 13, 2018. Chief Complaint: GI blood loss Referring Physician: Dr De La Torre History of Present Illness For push EGD Past Medical History Diabetes, Hypertension Past Surgical History Hx Cardiac Surgery: No Hx Internal Defibrillator: No Hx Pacemaker: No Hx Abdominal Surgery: Yes (SASCHA, X3) Hx Post-Op Nausea and Vomiting: No Hx Cancer Surgery: No Hx Thoracic Surgery: No Hx Orthopedic: Yes (LT/RT TKA, LOW BACK SURGERY) Hx Urinary Tract Surgery: No Social History Smoking Status: Former Smoker Hx Substance Use: No Hx Alcohol Use: No Allergies Coded Allergies: No Known Allergies (Verified , 03/09/18) Current Medications Reported Home Medications Medications Dose Route/Sig Max Daily Dose Days Date Category Dose Instructions Pantoprazole Sodium (Pantoprazole) 40 Mg Tab 40 Mg PO BID 12/30/17 Rx Glimepiride 2 Mg Tab 1 Mg PO QPM 12/27/17 Reported 1/2 OF A 2 MG TABLET Glucophage (Metformin Hcl) 500 Mg Tab 1,000 Mg PO BID 06/02/17 Reported Lipitor (Atorvastatin Calcium) 10 Mg Tab 1 Tab PO DAILY 02/23/17 Reported Prinivil (Lisinopril) 10 Mg Tab 10 Mg PO QPM 02/23/17 Reported Docusate Sodium 100 Mg Cap 100 Mg PO BID 11/24/16 Reported Triamcinolone Acet 0.025% (Triamcinolone Acetonide (Topic) 0.025 % Oin 1 Appln TOP PRN PRN 11/03/16 Reported Vitamin D3 (Cholecalciferol) 2,000 Unit Cap 1 Cap PO QAM 11/03/16 Reported Amaryl (Glimepiride) 2 Mg Tab 2 Mg PO QAM 03/02/14 Reported Vital Signs Weight (Kilograms): 104.200 Height (Feet): 5 Height (Inches): 1.00 Date Time Temp Pulse Resp B/P (MAP) Pulse Ox O2 Delivery O2 Flow Rate FiO2 03/13/18 13:15 36.7 67 18 170/77 (108) 99 Room Air 03/13/18 07:40 Room Air 03/13/18 07:23 37.0 71 18 146/82 (103) 94 Room Air 03/13/18 00:05 97 Room Air 03/12/18 23:25 36.8 67 16 130/77 (94) 97 Room Air 03/12/18 16:05 Room Air 03/12/18 15:26 36.8 69 18 148/79 (102) 96 Room Air Physical Exam General Appearance: + obese Respiratory/Chest: Auscultation: deminished air movement Cardiovascular: Heart Auscultation: RRR Abdomen: Inspection & Palpation: soft Assessment and Plan Anemia for Push EGD
--- NOTE | 2018-03-13 14:09 | Discharge Instructions ---
Endoscopy Patient Instructions Date / Procedure(s) Performed Mar 13, 2018. Push Enteroscopy Allergy Information Coded Allergies: No Known Allergies (Verified , 03/09/18) Discharge Date / Findings Mar 13, 2018. Jejunal clip seen Medication Instructions Restart Stopped Medication(s): resume meds Current Inpatient Medications Medications (Trade) Dose Ordered Sig/Marcello Route Start Time Stop Time Status Last Admin Dose Admin Ondansetron HCl (Zofran Inj) 4 mg Q6H PRN IV 03/09/18 12:45 04/08/18 12:44 Pantoprazole Sodium 40 mg/ Syringe 10 ml @ 5 mls/min BID@0900,2100 IV 03/09/18 21:00 04/08/18 20:59 03/13/18 09:04 5 MLS/MIN Glucose (Glucose 40% Gel) 15-30 GRAMS 15 GRAMS... UD PRN PO 03/09/18 13:45 04/08/18 13:44 Glucose (Glucose Chew Tab) 4-8 Tablets 4 Tabl... UD PRN PO 03/09/18 13:45 04/08/18 13:44 Dextrose (Dextrose 50% 50ML Syringe) 25-50ML 25ML FOR ... UD PRN IV 03/09/18 13:45 04/08/18 13:44 Glucagon (Glucagon Inj) 1 mg UD PRN IM 03/09/18 13:45 04/08/18 13:44 Carbohydrates (Carbohydrates For Hypoglycemia) 15-30 GRAMS 15 grams if BSG 54-69... UD PRN PO 03/09/18 13:45 04/08/18 13:44 Miscellaneous (Iv Fluids Completed) 1 ea PRN PRN N/A 03/09/18 14:00 03/09/19 13:59 Acetaminophen (Tylenol Tab) 650 mg Q6H PRN PO 03/10/18 19:00 04/09/18 18:59 03/10/18 19:12 650 MG Sodium Chloride 1,000 ml @ 75 mls/hr [id number] IV 03/11/18 07:15 04/10/18 07:14 03/13/18 12:54 75 MLS/HR Insulin Aspart (novoLOG ASPART) SLIDING SCALE G... Q6 SC 03/13/18 00:00 04/11/18 20:59 Provider Instructions Activity Restrictions - No exercising or heavy lifting for 24 hours. - Do not drink alcohol the day of the procedure. - Do not drive a car or operate machinery until the day after the procedure. - Do not make any important decisions or sign important papers in 24 hours after the procedure. Following Day: - Return to full activity which may include returning to work/school. Diet Start your diet with liquids and light foods (jello, soup, juice, toast). Then eat your usual diet if not nauseated. Treatment For Common After Affects For mild abdominal pain, bloating, or excessive gas: - Rest - Eat lightly - Lie on right side Follow-Up Information Follow-up with as scheduled Anesthesia Information What You Should Know You have had a procedure that required some medicine to reduce anxiety and discomfort. This treatment is called moderate sedation. After receiving the treatment, you may be sleepy, but you will be able to breathe on your own. The effects of the treatment may last for several hours. Follow these instructions along with Activity/Diet recommendations noted above: * Do NOT do anything where dizziness or clumsiness would be dangerous. * Rest quietly at home today, then you can be up and about tomorrow. * Have a responsible person stay with you the rest of today. * You may have had an I.V. today. If so, you may take the dressing off later today. Recommendations Call your doctor if: * Trouble breathing * Continuous vomiting for more than 24 hours * Temperature above 101 degrees * Severe abdominal pain or bloating * Pain not relieved by pain medicine ordered * There is increased drainage or redness from any incision * A large amount of rectal bleeding greater than 2-3 tablespoons. (If you had a polyp/s removed or have hemorrhoids, a small amount of blood - from the rectum is to be expected.) * You have any unanswered questions or concerns. IN THE EVENT OF A SERIOUS EMERGENCY, GO TO THE NEAREST EMERGENCY ROOM Your discharge instructions were prepared by provider Tien Garcia. Patient Instructions Signature Page Rosalind Dudley Patient (or Guardian) Signature/Date: I have read and understand the instructions given to me by my caregivers. Caregiver/RN/Doctor Signature/Date: The above-named patient and/or guardian has received patient instructions on this date. + Original Patient Signature Page (only) stays with chart. Please make copy for patient.
--- NOTE | 2018-03-13 14:20 | Anesthesiology Progress Note ---
Anesthesia Post Op Note Date & Time Mar 13, 2018 at 14:20 Vital Signs Pain Intensity: 0.0 Vital Signs Past 12 Hours Date Time Temp Pulse Resp B/P (MAP) Pulse Ox O2 Delivery O2 Flow Rate FiO2 03/13/18 13:15 36.7 67 18 170/77 (108) 99 Room Air 03/13/18 07:40 Room Air 03/13/18 07:23 37.0 71 18 146/82 (103) 94 Room Air Notes Mental Status: alert / awake / arousable, participated in evaluation Pt Amnestic to Procedure: Yes Nausea / Vomiting: adequately controlled Pain: adequately controlled Airway Patency, RR, SpO2: stable & adequate BP & HR: stable & adequate Hydration State: stable & adequate Anesthetic Complications: no major complications apparent
--- NOTE | 2018-03-13 14:23 | GI REPORT ---
Patient Name: Rosalind Dudley Procedure Date: 03/13/2018 1:40 PM Date of : 1945 Admit Type: Inpatient Age: 72 Gender: Female Attending MD: Tien Garcia MD Procedure: Upper GI endoscopy Providers: Tien Garcia MD Referring MD: Bee De La Torre Indications: Iron deficiency anemia secondary to chronic blood loss Medicines: Propofol total dose 300 mg IV, Lidocaine 40 mg IV, Labetolol 15 mg IV Complications: No immediate complications. Estimated Blood Loss: Estimated blood loss: none. Procedure: Pre-Anesthesia Assessment: - Prior to the procedure, a History and Physical was performed, and patient medications, allergies and sensitivities were reviewed. The patient's tolerance of previous anesthesia was reviewed. - The risks and benefits of the procedure and the sedation options and risks were discussed with the patient. All questions were answered and informed consent was obtained. After obtaining informed consent, the endoscope was passed under direct vision. Throughout the procedure, the patient's blood pressure, pulse, and oxygen saturations were monitored continuously. The scope was introduced through the mouth, and advanced to the proximal jejunum. The upper GI endoscopy was accomplished without difficulty. The patient tolerated the procedure well. Findings: Grade I varices were found in the lower third of the esophagus. The Z-line was regular and was found 38 cm from the incisors. The entire examined stomach was normal. Clip present. Impression: - Grade I esophageal varices. - Z-line regular, 38 cm from the incisors. - Normal stomach. - No specimens collected. Recommendation: - Return patient to [facility] for [facility] care. Tien Garcia M.D. Tien Garcia MD 03/13/2018 2:22:39 PM This report has been signed electronically. Note Initiated On: 03/13/2018 1:40 PM Number of Addenda: 0 I attest to the content of the Intraoperative Record and orders documented therein, exceptions below {[id number]}
--- NOTE | 2018-03-13 14:34 | PROGRESS NOTE ---
DATE: 03/13/2018 Patient underwent a push enteroscopy today. The scope was advanced at least to the proximal jejunum, probably 100 cm into the small bowel. I was able to locate a vascular clip that was left by Dr. Bright during the previous upper endoscopy, but there was no inflammation or bleeding at the site of the clip and no other source of potential blood loss was identified. IMPRESSION: The patient is having recurrent bleeding with anemia of unclear etiology. Upper and lower endoscopies and small bowel video capsule procedures have not found a specific source that has been treated and caused the bleeding to stop. Bleeding scan did show somewhat of a positive result on the left upper abdomen. At this point, I think it may be worth referring her for an outpatient small bowel double balloon enteroscopy at [facility].
[2018-03-13 15:17] VITALS: BP 137/79; PULSE 59; TEMP 36.5; O2SAT 96
--- NOTE | 2018-03-13 17:58 | Discharge Instructions ---
Discharge Instructions Date of Service Mar 13, 2018. Admission Reason for Admission: Upper Gi Bleed Discharge Discharge Diagnosis / Problem: GI bleeding Discharge Goals Goal(s): Diagnostic testing Activity Recommendations Activity Limitations: resume your previous activity . 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) - these are little blood vessels that get too close to the surface and can leak blood - when there are more of them then they can leak more blood -- and over time the accumulated blood loss can lead to significant anemia - as has been happening with you -the next steps are to prove this --> our nurse navigator will be working to get you into [facility] at [facility] to do a double balloon enteroscopy (as we discussed - a scope that can go very far into the small bowel) - depending on what they see, the next steps would be being able to clip or cauterize things endoscopically, or possibly needing surgery to remove a segment of bowel -in between now and then, since you've had ongoing dropping blood counts, we'll want to keep a close eye on things so that hopefully we can keep you out of the hospital -- the idea being that when you start to have a drop in counts, your regular docs can arrange an outpatient transfusion. we'll want you to get blood counts checked about every three days (see enclosed slip) to stay ahead of any dropping numbers you might have. Current Hospital Diet Patient's current hospital diet: Regular Diet Discharge Diet Recommended Diet: Regular Diet Procedures Procedures Performed: COLONOSCOPY Pending Studies Studies pending at discharge: no Laboratory Results Hemoglobin A1c Test 01/04/18 10:25 Range/Units Estimated Average Glucose 120 mg/dl Hemoglobin A1c 5.8 H 4.5-5.6 % Medical Emergencies . Who to Call and When: Medical Emergencies: If at any time you feel your situation is an emergency, please call 911 immediately. . Non-Emergent Contact Non-Emergency issues call your: Primary Care Provider, Quality Rep . . "Provider Documentation" section prepared by Arsh Chamberlain. .
--- NOTE | 2018-03-13 18:10 | Discharge Summary ---
Discharge Summary Date of Service Mar 13, 2018. Discharge Summary Admission Date: Mar 10, 2018 at 15:21 Discharge Date: Mar 13, 2018 Discharge Disposition: Home Principal Diagnosis: Recurrent GI bleeding Problems/Secondary Diagnoses: 1) DM2 2) MGUS 3) Hypertension 4) Hyperlipidemia Immunizations: Have You Had Influenza Vaccine: No History of Tetanus Vaccine?: Yes History of Pneumococcal: Yes History of Hepatitis B Vaccine: No Procedures: EGD, Colonoscopy CXR IMPRESSION: 1. Cardiomegaly. No other convincing evidence of acute cardiopulmonary disease. Tagged red blood cell GI bleeding scan IMPRESSION: Positive exam for GI bleed with small focus of moderate radiotracer uptake within the lower abdomen which moves to the left lower quadrant. This favors a lower GI bleed which may be within the small bowel. A colonic bleed could appear similar and this may be within a tortuous sigmoid colon or less likely arising from the transverse colon. This report will be called to the ordering physician as per protocol. Meckel's Scan IMPRESSION: 1. No evidence of Meckel's diverticulum. 2. Moving focus of mild radiotracer uptake within the abdominal left upper quadrant suggests uptake within a small bowel loop. With history of GI bleed, this is concerning for area of acute small bowel hemorrhage with infectious or inflammatory enteritis also in the differential. Consultations: Gastrointestinal Medication Reconciliation Continued Medications: Atorvastatin (Lipitor) 10 Mg Tab 1 TAB PO DAILY Cholecalciferol (Vitamin D3) 2,000 Unit Cap 1 CAP PO QAM Docusate Sodium (Docusate Sodium) 100 Mg Cap 100 MG PO BID Glimepiride (Amaryl) 2 Mg Tab 2 MG PO QAM, TAB Glimepiride (Glimepiride) 2 Mg Tab 1 MG PO QPM 1/2 OF A 2 MG TABLET Lisinopril (Prinivil) 10 Mg Tab 10 MG PO QPM Metformin Hcl (Glucophage) 500 Mg Tab 1000 MG PO BID Pantoprazole (Pantoprazole Sodium) 40 Mg Tab 40 MG PO BID, #60 TAB 3 Refills Triamcinolone Acetonide (Topic (Triamcinolone Acet 0.025%) 0.025 % Oin 1 APPLN TOP PRN PRN for PRN Discharge Exam Ms. Dudley reports she feels well today. She is anxious to find the source of her bleeding. She denies abdominal pain, nausea, vomiting, lightheadedness or shortness of breath. She states she has not had any more episodes of black tarry stools. Review of Systems: Constitutional: No fever, No chills Respiratory: No shortness of breath Cardiovascular: No chest pain Abdomen: No pain, No nausea, No vomiting Physical Exam: General Appearance: WD/WN, no apparent distress Respiratory/Chest: lungs clear, normal breath sounds, no respiratory distress, no accessory muscle use Cardiovascular: regular rate, rhythm, no edema, no murmur, normal peripheral pulses Abdomen / GI: non tender, soft Extremities: no calf tenderness, no pedal edema Hospital Course 72 y/oF with Hx of MGUS, HTN, HPL, DM II, and recurrent GI bleeds. She presented twice for black tarry stool in December. On 12/29, EGD revealed bleeding angioectasias in the duodenum and proximal jejunum which required cauterization. On 01/10, repeat EGD demonstrated grade I esophageal varices, gastritis and no identifiable source of bleeding. Bleeding had resolved spontaneously and she was sent home on a PPI with plans to pursue a pill endoscopy which did not provide any additional helpful information. Admitted again for black tarry stool. Recurrent GI bleed - likely small intestinal - Hgb downtrended to 6.9 from recent Hgb of 8.4. Now stable at 8.9 s/p 2 units of pRBC. - pt remained hemodynamically stable, black tarry stools resolved upon admission - Tagged RBC scan:concerning for LLQ GI bleed (small bowel vs. sigmoid vs. transverse) - GI consulted - colonoscopy: no active bleeding source, sigmoid diverticulosis, mild non- bleeding hemorrhoids and clip found in cecum likely migrated endoclip from previous jejunal source - Meckels scan done w/radiotracer uptake within abdominal left upper quadrant suggests uptake within a small bowel loop - possible small bowel hemorrhage - rescoped on day of discharge w/push enteroscopy -> no bleeding sources found - nurse navigator working on arranging an outpatient small bowel double balloon enteroscopy at [facility]. - q3day CBC to ensure hemoglobin does not drop while waiting for outpatient enteroscopy Hypomagnesemia - persistent - Received 8g of magnesium sulfate supplementation during hospital stay - recommend recheck in outpatient setting as pt received 2g on day of discharge Resident Physician Supervision Note: I interviewed and examined the patient. Discussed with Dr. Tarmohamed and agree with findings and plan as documented in the note. Any exceptions or clarifications are listed here: None Documented By: Arsh Chamberlain feeling good wants to go home vitals noted nad breathing unlabored no pallor or icterus updated pt and family on next steps in detail and in writing GI bleeding w acute blood loss anemia treated with 2 units of PRBC -double balloon enteroscopy at [facility] in near future -follow Hgb q3 days until after situation is remedied to allow for earlier recognition of dropping counts, and/or outpt transfusion that may save readmission -stable for home Total Time Spent: Greater than 30 minutes This includes examination of the patient, discharge planning, medication reconciliation, and communication with other providers. Discharge Instructions Please refer to the electronic Patient Visit Report (Discharge Instructions) for additional information. Additional Copies To Bee De La Torre M.D. Resident Tracking Resident Involvement: Resident Care Provided Care Provided: Adult Hospital Medicine
[2018-03-13 18:53] VITALS: BP 137/79; PULSE 59; TEMP 36.5; O2SAT 96
== END 2018-03-13 19:15 | disposition home or self-care (01) | DRG 378 ==
LOC: C.EDB 10:54 → C.MSW 12:50 → ENRESERV 13:16 → OBSVTOIN 03-10 15:21
PROVIDERS: ADMIT Internal Medicine; ATTEND Family Medicine
PROC: 0DJD8ZZ Inspection of Lower Intestinal Tract, Via Natural or Artificial Opening Endoscopic (ICD-10-PCS; principal; 2018-03-10 06:58)
PROC: 0DJ08ZZ Inspection of Upper Intestinal Tract, Via Natural or Artificial Opening Endoscopic (ICD-10-PCS; 2018-03-13)
DX: K92.1 Melena (principal); D62 Acute posthemorrhagic anemia; E66.9 Obesity, unspecified; Z68.41 Body mass index [BMI] 40.0-44.9, adult; J98.11 Atelectasis; T18.4XXA Foreign body in colon, initial encounter; E83.42 Hypomagnesemia; E11.9 Type 2 diabetes mellitus without complications; I10 Essential (primary) hypertension; E78.5 Hyperlipidemia, unspecified; R60.0 Localized edema; Z79.84 Long term (current) use of oral hypoglycemic drugs; Z79.899 Other long term (current) drug therapy; Z87.891 Personal history of nicotine dependence; Y83.1 Surgical operation with implant of artificial internal device as the cause of abnormal reaction of the patient, or of later complication, without mention of misadventure at the time of the procedure; Y73.2 Prosthetic and other implants, materials and accessory gastroenterology and urology devices associated with adverse incidents

== ENCOUNTER → 2018-03-15 | Outpatient (CLI) | payer BC ==
[~2018-03-15] MED LIST changes: -ACET-1256 PO; -NYST100033 TOP
--- NOTE | 2018-03-15 17:33 | DIAGNOSTIC IMAGING REPORT ---
R VENOUS DOPPLER UPR EXT UNIL CLINICAL HISTORY: 72 years-old Female presenting with M79.89 Swelling of right upper extremity . TECHNIQUE: Real-time grayscale and color and spectral Doppler ultrasound imaging of the veins of the right upper extremity was performed. Compression and augmentation were also utilized. COMPARISON: None. FINDINGS: RIGHT: Internal jugular vein: Patent. Subclavian vein: Patent. Axillary vein: Patent. Brachial vein: Patent. Basilic vein (superficial): Nonocclusive filling defect consistent with thrombus. Thrombus is noted both in the forearm, antecubital fossa, and the upper arm. Cephalic vein (superficial): Nonocclusive filling defect consistent with thrombus. The cephalic vein is patent near the confluence with the subclavian vein and throughout the upper arm. Thrombus is limited to the forearm and antecubital fossa. Radial vein: Patent. Ulnar vein: Patent. Other: None. IMPRESSION: 1. No evidence of deep venous thrombosis. 2. Nonocclusive superficial venous thrombosis in the basilic and cephalic veins. Electronically signed by: Dalton Zavala M.D. 03/15/2018 5:32 PM Dictated Date/Time: 03/15/2018 5:29 PM
== END | disposition home or self-care (01) ==
LOC: C.ULTR 16:37
PROVIDERS: ATTEND Family Medicine
DX: M79.89 Other specified soft tissue disorders (principal); I82.611 Acute embolism and thrombosis of superficial veins of right upper extremity

== ENCOUNTER → 2018-03-16 | Outpatient (CLI) | payer BC ==
[2018-03-16 13:10] LABS: HEMATOCRIT 30.7 % (37-47); HEMOGLOBIN 9.1 g/dL (12.0-16.0)
== END | disposition home or self-care (01) ==
LOC: C.LABPVFM 09:47
PROVIDERS: ATTEND Family Medicine
DX: K92.2 Gastrointestinal hemorrhage, unspecified (principal); D64.9 Anemia, unspecified

== ENCOUNTER → 2018-03-19 | Outpatient (CLI) | payer BC ==
[2018-03-19 12:43] LABS: HEMATOCRIT 29.8 % (37-47); HEMOGLOBIN 8.7 g/dL (12.0-16.0); MEAN CELL VOLUME 76.6 fL (80-100); MEAN CORPUSCULAR HEMOGLOBIN 22.4 pg (25-34); MEAN CORPUSCULAR HGB CONC 29.2 g/dl (32-36); MEAN PLATELET VOLUME 9.2 fL (7.4-10.4); PLATELET COUNT 113 K/uL (130-400); RED CELL DISTRIBUTION WIDTH CV 20.6 % (11.5-14.5); RED CELL DISTRIBUTION WIDTH SD 57.6 fL (36.4-46.3); WHITE BLOOD COUNT 3.85 K/uL (4.8-10.8)
[2018-03-19 12:44] LABS: BASO % 0.3 %; BASO ABS # 0.01 K/uL (0-0.2); EOS % 1.8 %; EOS ABS # 0.07 K/uL (0-0.5); LYMPH % 24.9 %; LYMPH ABS # 0.96 K/uL (1.2-3.4); MONO ABS # 0.54 K/uL (0.11-0.59); NEUT ABS # 2.27 K/uL (1.4-6.5)
== END | disposition home or self-care (01) ==
LOC: C.LABSPEC 11:57
PROVIDERS: ATTEND Nurse Practitioner Family
DX: D47.2 Monoclonal gammopathy (principal)

== ENCOUNTER 2019-10-14 10:36 | Inpatient (IN) ==
[2019-10-14] MEDS ORDERED: SODIUM CHLORIDE 0.9% 500 ML IV ONE (11:07)
[2019-10-14 11:12] LABS: Basophils # (auto) 0.01 K/uL (0-0.2); Basophils % (auto) 0.3 %; Eosinophils # (auto) 0.15 K/uL (0-0.5); Hematocrit (blood only) 39.6 % (37-47); Hemoglobin 12.3 g/dL (12.0-16.0); Lymphocytes # (auto) 0.92 K/uL (1.2-3.4); Lymphocytes % (auto) 30.9 %; Mean Corpuscular Hemoglobin 26.7 pg (25-34); Mean Corpuscular Hgb Conc 31.1 g/dL (32-36); Mean Corpuscular Volume 85.9 fL (80-100); Mean Platelet Volume 9.8 fL (7.4-10.4); Monocytes # (auto) 0.24 K/uL (0.11-0.59); Monocytes % (auto) 8.1 %; Neutrophils # (auto) 1.66 K/uL (1.4-6.5); Neutrophils % (auto) 55.7 %; Platelet Count 108 K/uL (130-400); RDW Coefficient of Variation 21.3 % (11.5-14.5); RDW Standard Deviation 66.5 fL (36.4-46.3); Red Blood Count 4.61 M/uL (4.2-5.4); White Blood Count 2.98 K/uL (4.8-10.8)
[2019-10-14 11:29] LABS: Anisocytosis Present
[2019-10-14 11:37] LABS: Alanine Aminotransferase 31 U/L (12-78); Albumin Globulin Ratio 0.6 (0.9-2); Albumin Level 2.7 gm/dl (3.4-5.0); Alkaline Phosphatase 72 U/L (45-117); Aspartate Aminotransferase 37 U/L (15-37); BUN Creatinine Ratio 19.9 (10-20); Bilirubin Direct 0.2 mg/dl (0-0.2); Bilirubin,Total 0.6 mg/dl (0.2-1); Blood Urea Nitrogen 20 mg/dl (7-18); Calcium 8.8 mg/dl (8.5-10.1); Carbon Dioxide 28 mmol/L (21-32); Chloride 105 mmol/L (98-107); Creatinine Clr Calc Pharmacy 54.1 ml/min; Est GFR (African American) 64.2; Est GFR (Non-African American) 55.4; Globulin 4.9 gm/dl (2.5-4.0); Glucose 205 mg/dl (70-99); Lipase 125 U/L (73-393); Magnesium 0.9 mg/dl (1.8-2.4); Phosphorus 2.2 mg/dl (2.5-4.9); Potassium 4.4 mmol/L (3.5-5.1); Sodium 137 mmol/L (136-145); Total Protein 7.6 gm/dl (6.4-8.2); Troponin I < 0.015 ng/ml (0-0.045)
--- NOTE | 2019-10-14 11:38 | Emergency Department Note ---
ED Provider Note NAME: JEFFREY TOVAR AGE: 74 SEX: F ARRIVES VIA: Walk-In INFORMANT: Patient, ED PROVIDER(S): Tio Chandler MD CHIEF COMPLAINT: MEDICAL DECISION MAKING: The patient is a pleasant 74-year-old woman with a past medical history of cirrhosis and esophageal varices with history of GI bleed, MGUS, who presents emergency department for evaluation of 2 episodes of red blood per rectum where she describes having loose maroon-colored stools. Patient has any fevers, chills, cough, congestion, nausea, vomiting. She denies any chest pain. She has chronic dyspnea on exertion which is unchanged. Denies any hematemesis. The patient is in no acute distress, afebrile stable vital signs. She has mild left lower quadrant discomfort without discrete tenderness. Patient did have maroon-colored stool in the emergency department that was guaiac positive. EKG demonstrates bifascicular block with right bundle branch block and left anterior fascicular block that is similar to prior. No overt acute ischemia. WBC 2.9, nonspecific. H/H 12.3/39.6 improved from prior values. Platelets 108 similar to prior range of values in the setting of Rothman cirrhosis. INR 1.2. Chemistry without acidosis. BUN 20 similar to prior. Phosphorus 2.2 and magnesium 0.9 with repletion provided. LFTs unremarkable. Troponin negative/undetectable. Chest x-ray with mild vascular prominence but no overt pulmonary edema. CT the abdomen pelvis was performed and demonstrated incidental filling defect within a branch of the right lower lobe pulmonary artery. Otherwise there was no acute process. Some evidence of enteritis. CTA of the chest was performed and further confirms the incidental findings of the CT abdomen with segmental pulmonary embolus. The patient's GI bleed in the setting of PE will defer anticoagulation at this time. Case was discussed with Dr. Hermosillo, [facility] hospitalist, who will evaluate the patient for admission. Triage Nursing notes reviewed and agree them. Prior medical records reviewed Vital Signs: reviewed and remarkable for hypertension. Differential diagnosis: Diverticulosis, AVM, coagulopathy, colitis, inflammatory bowel disease, malignancy, Trudy-Friedman tear, esophagitis, peptic ulcer disease, variceal bleed, gastritis, epistaxis, fissure, hemorrhoids, as well as other pathologies. ER treatment provided: See below Diagnostics interpreted by me: ECG: Normal sinus rhythm, 83 bpm, right bundle branch block, left anterior fascicular block, bifascicular block, LVH, no overt ST elevation or depression. QTc 488, QRS 134. Similar to 07/01/2018. Cardiac Monitoring: None Laboratory studies: See below Imaging studies: XR chest 1V portable HISTORY: Atypical Chest Pain COMPARISON: Chest 03/09/2018. FINDINGS: The heart remains mildly enlarged. Mild central pulmonary vascular congestion without overt edema. No pneumothorax. A few bibasilar linear densities suggesting subsegmental atelectasis. No pleural effusions. No new focal lung consolidations to suggest pneumonia. IMPRESSION: Stable cardiomegaly and mild central pulmonary vascular congestion without overt edema. -- CT SCAN OF THE ABDOMEN AND PELVIS WITH IV CONTRAST CLINICAL HISTORY: Left lower quadrant abdominal pain. Hematochezia. COMPARISON STUDY: KUB dated 01/12/2018. TECHNIQUE: Following the IV administration of 94 cc of Optiray 320, CT scan of the abdomen and pelvis is performed from the lung bases to the proximal femora. Images are reviewed in the axial, sagittal, and coronal planes. IV contrast was administered without complication. A dose lowering technique was utilized adhering to the principles of ALARA. CT DOSE: 1514.30 mGy.cm FINDINGS: Lung bases: The heart is normal in size and without pericardial effusion. There are coronary artery calcifications. The lung bases are clear noting bibasilar scarring/atelectasis. There is a tiny hiatal hernia. There is a filling defect identified within a right lower lobe pulmonary artery branch seen on image #22. Liver: The contrast-enhanced liver is cirrhotic in morphology and heterogeneous in attenuation. There is hypertrophy of the left lobe and caudate as well as nodularity of the surface contour. There is no intrahepatic biliary ductal di latation. The hepatic veins and portal veins are patent. Gallbladder: Surgically absent noting clips in the gallbladder fossa. Spleen: Normal in size and attenuation. Pancreas: Moderately atrophic and grossly unremarkable. Adrenal glands: Unremarkable. Kidneys: The contrast enhanced kidneys demonstrate cortical atrophy and are without hydronephrosis. The kidneys enhance symmetrically. A circumaortic left renal vein is incidentally noted. Abdominal vasculature: The abdominal aorta is normal in course and caliber noting moderate atherosclerotic calcification. Bowel: There is mild to moderate colonic diverticulosis without CT evidence of acute diverticulitis. No bowel obstruction is seen. There are fluid-filled loops of distal small bowel. The appendix is not visualized. Peritoneum: There is no intraperitoneal free air or abdominal ascites. Venous collaterals are present within the right retroperitoneal space below the diaphragm. Lymphadenopathy: Prominent lymph nodes in the adis hepatis measure up to 1.6 cm short axis. This is likely related to chronic liver disease. Pelvic viscera: The bladder is normal as visualized. The endometrium appears thickened for age measuring up to 1.7 cm. No adnexal lesion is seen. Skeletal structures: The skeletal structures are osteopenic. There is postoperative change from L4 to S1 spinal fusion. No lytic or blastic lesions are seen. IMPRESSION: 1. There is a filling defect suggested within a branch of the right lower lobe pulmonary artery which is concerning for pulmonary embolus. Correlation with a CT angiogram of the chest is recommended for further assessment. 2. Cirrhotic liver morphology. 3. There are fluid-filled loops of distal small bowel. This is of indeterminate significance and could be seen in the setting of a mild nonspecific enteritis. Clinical correlation will be required. 4. Mild/moderate colonic diverticulosis without CT evidence of acute diverticulitis. 5. The endometrium is thickened for age measuring up to 1.7 cm. This is not well assessed by CT. Nonemergent follow-up with gynecology and pelvic ultrasound is recommended for further assessment. 6. Additional findings as above. --- CT ANGIOGRAM OF THE CHEST CLINICAL HISTORY: Atypical chest pain. Dyspnea. COMPARISON STUDY: Chest CT dated 11/20/2008. Abdominal CT performed the same day 10/14/2019. TECHNIQUE: Following the IV administration of 120 cc of Optiray 320, CT angiogram of the chest was performed from the upper abdomen to the thoracic inlet utilizing the pulmonary embolus protocol. Images are reviewed in the axial, sagittal, and coronal planes. 3-D MIPS images are created and assessed. IV contrast was administered without complication. A dose lowering technique was utilized adhering to the principles of ALARA. CT DOSE: 701.88 mGy.cm FINDINGS: Thyroid: Atrophic. Thoracic aorta: There is mild atherosclerotic calcification of the thoracic aorta, which is normal in caliber and demonstrates standard 3-vessel arch anato my. No dissection is seen. Pulmonary vasculature: The pulmonary trunk is normal in caliber. There is a filling defect within a segmental branch of the right lower lobe pulmonary artery seen on image #77. This confirms the presence of a small pulmonary embolus. No additional pulmonary emboli are identified in either lung. Heart: The heart is mildly enlarged and without pericardial effusion. Lungs and pleural spaces: There is no airspace consolidation or pleural effusion. The trachea and central airways are clear. Foci of scarring/atelectasis are present at the lung bases. Mediastinum: Scattered subcentimeter mediastinal lymph nodes are not pathologically enlarged by size criteria. Nabila: Clear. Axillae: There is no axillary lymphadenopathy. Upper abdomen: The liver is cirrhotic in morphology and heterogeneous in attenuation. There is nodularity of the hepatic surface contour. Skeletal structures: The skeletal structures are osteopenic. No lytic or blastic bony lesions are seen. Degenerative change and hyperkyphosis are noted in the thoracic spine. IMPRESSION: 1. CT angiogram confirms the presence of a segmental pulmonary embolus within a branch of the right lower lobe pulmonary artery. 2. No additional pulmonary emboli are identified. 3. There is no airspace consolidation or pleural effusion. 4. Additional findings as above. Consultation(s): None HPI: The patient is a pleasant 74-year-old woman with a past medical history of cirrhosis and esophageal varices with history of GI bleed, MGUS, who presents emergency department for evaluation of 2 episodes of red blood per rectum where she describes having loose maroon-colored stools which began abruptly today. Patient has any fevers, chills, cough, congestion, nausea, vomiting. She denies any chest pain. She has chronic dyspnea on exertion which is unchanged. Denies any hematemesis. ROS: See above HPI for pertinent positives & negatives. A total of 10 systems reviewed and were otherwise negative. PAST MEDICAL HISTORY:See Below PAST SURGICAL HISTORY:See Below FAMILY HISTORY:See Below SOCIAL HISTORY:See Below HOME MEDICATIONS:See Below ALLERGIES:See Below VITALS:See Below PHYSICAL EXAMINATION: GENERAL: Awake, alert, fatigued-appearing, in no distress. BMI 44. HENT: Normocephalic, atraumatic. Oropharynx with dry mucous membranes and otherwise unremarkable. EYES: Normal conjunctiva. Sclera non-icteric. NECK: Supple. No nuchal rigidity. FROM. No JVD. RESPIRATORY: Diminished at bases. Otherwise, clear to auscultation. CARDIAC: Regular rate, normal rhythm. Extremities warm and well perfused. Pulses equal. ABDOMEN: Soft, non-distended. Mild left lower quadrant tenderness without discrete tenderness to palpation. No rebound or guarding. No masses. RECTAL: Deferred. MUSCULOSKELETAL: Chest examination reveals no tenderness. The back is symmetrical on inspection without obvious abnormality. There is no CVA tenderness to palpation. No joint edema. LOWER EXTREMITIES: Calves are equal size bilaterally and non-tender. 1+ bilateral lower extremity edema. No discoloration. NEURO: Normal sensorium. No sensory or motor deficits noted. SKIN: No rash or jaundice noted. 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 Chronic back pain 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 to alcohol Diabetes mellitus, type 2 Esophageal varices (Inactive) Esophageal varices determined by endoscopy GERD (gastroesophageal reflux disease) GI bleed Hyperlipidemia Hypertension (Chronic) Migraine Osteoarthritis Pancytopenia Thickened endometrium Surgical History History of bilateral breast reduction surgery History of bilateral cataract extraction History of carpal tunnel release of both wrists History of section x3 History of cholecystectomy History of colonoscopy History of dilatation and curettage History of esophagogastroduodenoscopy (EGD) History of lumbar spinal fusion hardware in place History of tonsillectomy History of tooth extraction all teeth History of total left knee replacement (TKR) History of total right knee replacement (TKR) Family History Mother Family history of diabetes mellitus Brother Family history of diabetes mellitus 3 brothers Colorectal cancer Myocardial infarction x 2 Father Myocardial infarction Denies family history of Ovarian cancer Prostate cancer Breast cancer Social History Preferred Language: [place] Communication Ability: Effective 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 Beliefs That Will Affect Care: None marital status: Current Living Situation: Family Current Living Situation Comment: Lives in grandson's apartment Other Information That Helps Us Care for You: No Feels Safe at Home: Yes Safety Concerns: Feels Safe At This Time Smoking Status: Former smoker Do You Dip or Chew Tobacco: No ; Second Hand Exposure: No ; Tobacco Cessation Education Requested by Patient: No Hx Alcohol Use: No Hx Substance Use: No Dental Care, Regularly: No Seatbelt Use: always Results & Data (ED) Vital Signs Vital Signs - 24 hr 10/14/19 10:07 10/14/19 10:37 10/14/19 10:56 Temperature 36.5 C Temperature Source Oral Pulse Rate 90 102 H 88 Pulse Rate [Finger] Pulse Rate from SpO2 Sensor Pulse Rhythm [Finger] Pulse Strength [Finger] Respiratory Rate 20 20 20 Respiratory Effort / Characteristics Non-Labored Respiratory Depth Normal Respiratory Pattern Blood Pressure 126/97 222/98 H Blood Pressure [Right Arm] Blood Pressure Mean 105 139 Blood Pressure Mean [Right Arm] Blood Pressure Position [Right Arm] Pulse Oximetry 94 Oxygen Delivery Method Room Air Sepsis Recent Fever Within 48 Hours No Sepsis New/Unexplained Change in Mental Status No Sepsis Action Taken by Nursing No Action Required 10/14/19 11:00 10/14/19 11:06 10/14/19 11:30 Temperature Temperature Source Pulse Rate 81 79 Pulse Rate [Finger] Pulse Rate from SpO2 Sensor Pulse Rhythm [Finger] Pulse Strength [Finger] Respiratory Rate 18 13 Respiratory Effort / Characteristics Respiratory Depth Respiratory Pattern Blood Pressure Blood Pressure [Right Arm] Blood Pressure Mean Blood Pressure Mean [Right Arm] Blood Pressure Position [Right Arm] Pulse Oximetry 93 Oxygen Delivery Method Room Air Sepsis Recent Fever Within 48 Hours Sepsis New/Unexplained Change in Mental Status Sepsis Action Taken by Nursing 10/14/19 12:07 10/14/19 12:08 10/14/19 12:09 Temperature Temperature Source Pulse Rate 94 H 86 Pulse Rate [Finger] 86 Pulse Rate from SpO2 Sensor 85 Pulse Rhythm [Finger] Pulse Strength [Finger] Respiratory Rate 19 17 20 Respiratory Effort / Characteristics Respiratory Depth Respiratory Pattern Blood Pressure 183/86 H Blood Pressure [Right Arm] 183/86 H Blood Pressure Mean 123 Blood Pressure Mean [Right Arm] 118 Blood Pressure Position [Right Arm] Pulse Oximetry 97 97 Oxygen Delivery Method Sepsis Recent Fever Within 48 Hours Sepsis New/Unexplained Change in Mental Status Sepsis Action Taken by Nursing 10/14/19 12:30 10/14/19 13:12 10/14/19 13:30 Temperature Temperature Source Pulse Rate 90 98 H 77 Pulse Rate [Finger] Pulse Rate from SpO2 Sensor 90 Pulse Rhythm [Finger] Pulse Strength [Finger] Respiratory Rate 17 19 21 Respiratory Effort / Characteristics Respiratory Depth Respiratory Pattern Blood Pressure Blood Pressure [Right Arm] Blood Pressure Mean Blood Pressure Mean [Right Arm] Blood Pressure Position [Right Arm] Pulse Oximetry 97 Oxygen Delivery Method Sepsis Recent Fever Within 48 Hours Sepsis New/Unexplained Change in Mental Status Sepsis Action Taken by Nursing 10/14/19 13:40 10/14/19 14:00 10/14/19 14:01 Temperature Temperature Source Pulse Rate 76 74 79 Pulse Rate [Finger] Pulse Rate from SpO2 Sensor Pulse Rhythm [Finger] Pulse Strength [Finger] Respiratory Rate 28 H 26 H 28 H Respiratory Effort / Characteristics Respiratory Depth Respiratory Pattern Blood Pressure 165/74 H 226/112 H Blood Pressure [Right Arm] Blood Pressure Mean 110 120 Blood Pressure Mean [Right Arm] Blood Pressure Position [Right Arm] Pulse Oximetry Oxygen Delivery Method Sepsis Recent Fever Within 48 Hours Sepsis New/Unexplained Change in Mental Status Sepsis Action Taken by Nursing 10/14/19 14:30 10/14/19 14:44 10/14/19 15:00 Temperature Temperature Source Pulse Rate 83 82 81 Pulse Rate [Finger] Pulse Rate from SpO2 Sensor Pulse Rhythm [Finger] Pulse Strength [Finger] Respiratory Rate 17 15 18 Respiratory Effort / Characteristics Respiratory Depth Respiratory Pattern Blood Pressure 216/143 H Blood Pressure [Right Arm] Blood Pressure Mean 174 Blood Pressure Mean [Right Arm] Blood Pressure Position [Right Arm] Pulse Oximetry Oxygen Delivery Method Sepsis Recent Fever Within 48 Hours Sepsis New/Unexplained Change in Mental Status Sepsis Action Taken by Nursing 10/14/19 15:30 10/14/19 15:47 10/14/19 15:48 Temperature 36.6 C Temperature Source Oral Pulse Rate 81 Pulse Rate [Finger] 93 H Pulse Rate from SpO2 Sensor Pulse Rhythm [Finger] Regular Pulse Strength [Finger] Normal Respiratory Rate 16 20 Respiratory Effort / Characteristics Non-Labored Spontaneous Respiratory Depth Normal Respiratory Pattern Regular Blood Pressure Blood Pressure [Right Arm] 219/127 H Blood Pressure Mean Blood Pressure Mean [Right Arm] 157 Blood Pressure Position [Right Arm] Lying Pulse Oximetry 96 Oxygen Delivery Method Room Air Room Air Sepsis Recent Fever Within 48 Hours Sepsis New/Unexplained Change in Mental Status Sepsis Action Taken by Nursing Laboratory Data Attestation: I reviewed the patient's lab results. Result diagrams: 10/14/19 17:50 10/14/19 11:00 Lab Results 10/14/19 10/14/19 10/14/19 Range/Units 11:00 11:00 11:00 WBC 2.98 L (4.8-10.8) K/uL RBC 4.61 (4.2-5.4) M/uL Hgb 12.3 (12.0-16.0) g/dL Hct 39.6 (37-47) % MCV 85.9 (80-100) fL MCH 26.7 (25-34) pg MCHC 31.1 L (32-36) g/dL RDW Std Deviation 66.5 H (36.4-46.3) fL RDW Coeff of Leah 21.3 H (11.5-14.5) % Plt Count 108 L (130-400) K/uL MPV 9.8 (7.4-10.4) fL Immature Gran % (Auto) 0.0 % Neut % (Auto) 55.7 % Lymph % (Auto) 30.9 % [place] % (Auto) 8.1 % Eos % (Auto) 5.0 % Baso % (Auto) 0.3 % Immature Gran # (Auto) 0.00 (0.00-0.02) K/uL Neut # (Auto) 1.66 (1.4-6.5) K/uL Lymph # (Auto) 0.92 L (1.2-3.4) K/uL [place] # (Auto) 0.24 (0.11-0.59) K/uL Eos # (Auto) 0.15 (0-0.5) K/uL Baso # (Auto) 0.01 (0-0.2) K/uL Anisocytosis Present PT 12.4 H (9.0-12.0) Seconds INR 1.2 H (0.9-1.1) APTT 28.8 (21.0-31.0) Seconds PTT Ratio 1.0 Sodium 137 (136-145) mmol/L Potassium 4.4 (3.5-5.1) mmol/L Chloride 105 (98-107) mmol/L Carbon Dioxide 28 (21-32) mmol/L Anion Gap 4.0 (3-11) BUN 20 H (7-18) mg/dl Creatinine 0.99 (0.6-1.2) mg/dl Est Cr Clr Drug Dosing 54.1 ml/min Est GFR ( Amer) 64.2 Est GFR (Non-Af Amer) 55.4 BUN/Creatinine Ratio 19.9 (10-20) Glucose 205 H (70-99) mg/dl Calcium 8.8 (8.5-10.1) mg/dl Phosphorus 2.2 L (2.5-4.9) mg/dl Magnesium 0.9 L* (1.8-2.4) mg/dl Total Bilirubin 0.6 (0.2-1) mg/dl Direct Bilirubin 0.2 (0-0.2) mg/dl AST 37 (15-37) U/L ALT 31 (12-78) U/L Alkaline Phosphatase 72 (45-117) U/L Troponin I < 0.015 (0-0.045) ng/ml Total Protein 7.6 (6.4-8.2) gm/dl Albumin 2.7 L (3.4-5.0) gm/dl Globulin 4.9 H (2.5-4.0) gm/dl Albumin/Globulin Ratio 0.6 L (0.9-2) Lipase 125 (73-393) U/L Blood Type Antibody Screen 10/14/19 Range/Units 11:15 WBC (4.8-10.8) K/uL RBC (4.2-5.4) M/uL Hgb (12.0-16.0) g/dL Hct (37-47) % MCV (80-100) fL MCH (25-34) pg MCHC (32-36) g/dL RDW Std Deviation (36.4-46.3) fL RDW Coeff of Leah (11.5-14.5) % Plt Count (130-400) K/uL MPV (7.4-10.4) fL Immature Gran % (Auto) % Neut % (Auto) % Lymph % (Auto) % [place] % (Auto) % Eos % (Auto) % Baso % (Auto) % Immature Gran # (Auto) (0.00-0.02) K/uL Neut # (Auto) (1.4-6.5) K/uL Lymph # (Auto) (1.2-3.4) K/uL [place] # (Auto) (0.11-0.59) K/uL Eos # (Auto) (0-0.5) K/uL Baso # (Auto) (0-0.2) K/uL Anisocytosis PT (9.0-12.0) Seconds INR (0.9-1.1) APTT (21.0-31.0) Seconds PTT Ratio Sodium (136-145) mmol/L Potassium (3.5-5.1) mmol/L Chloride (98-107) mmol/L Carbon Dioxide (21-32) mmol/L Anion Gap (3-11) BUN (7-18) mg/dl Creatinine (0.6-1.2) mg/dl Est Cr Clr Drug Dosing ml/min Est GFR ( Amer) Est GFR (Non-Af Amer) BUN/Creatinine Ratio (10-20) Glucose (70-99) mg/dl Calcium (8.5-10.1) mg/dl Phosphorus (2.5-4.9) mg/dl Magnesium (1.8-2.4) mg/dl Total Bilirubin (0.2-1) mg/dl Direct Bilirubin (0-0.2) mg/dl AST (15-37) U/L ALT (12-78) U/L Alkaline Phosphatase (45-117) U/L Troponin I (0-0.045) ng/ml Total Protein (6.4-8.2) gm/dl Albumin (3.4-5.0) gm/dl Globulin (2.5-4.0) gm/dl Albumin/Globulin Ratio (0.9-2) Lipase (73-393) U/L Blood Type A Negative Antibody Screen NEGATIVE Administered Medications Atorvastatin Calcium (Lipitor) 10 mg PO HS ARMANDO Stop: 11/13/19 20:59 Last Admin: 10/14/19 21:03 Dose: 10 mg Documented by: [id number] Insulin Aspart (Novolog Flexpen) 0 units SC ACHS ARMANDO Stop: 11/13/19 17:59 Last Admin: 10/14/19 21:03 Dose: Not Given Documented by: [id number] Cosigned by: [id number] Admin: 10/14/19 17:50 Dose: Not Given Documented by: [id number] Cosigned by: [id number] Ioversol (Optiray 320 100ml) 94 ml IV ONCE PRN PRN Reason: Interaction Checking Stop: 10/18/19 11:47 Last Admin: 10/14/19 11:48 Dose: 94 ml Documented by: [id number] Ioversol (Optiray 320 125ml) 120 ml IV ONCE PRN PRN Reason: Interaction Checking Stop: 10/18/19 12:59 Last Admin: 10/14/19 13:00 Dose: 120 ml Documented by: [id number] Lisinopril (Zestril) 10 mg PO DAILYBD ARMANDO Stop: 11/13/19 18:29 Last Admin: 10/14/19 18:42 Dose: 10 mg Documented by: [id number] Pantoprazole Sodium (Protonix) 40 mg PO BID ARMANDO Stop: 11/13/19 20:59 Last Admin: 10/14/19 21:02 Dose: 40 mg Documented by: [id number] Discontinued Medications Sodium Chloride (Nss) 500 mls @ 999 mls/hr IV .Q31M ONE Stop: 10/14/19 11:37 Last Infusion: 10/14/19 12:01 Dose: 0 mls/hr Documented by: [id number] Admin: 10/14/19 11:27 Dose: 999 mls/hr Documented by: [id number] Magnesium Sulfate/Dextrose (Magnesium Sulfate / D5w) 1 gm in 100 mls @ 100 mls/hr IV Q1H ARMANDO Stop: 10/14/19 14:14 Last Infusion: 10/14/19 15:07 Dose: 0 mls/hr Documented by: [id number] Admin: 10/14/19 13:39 Dose: 100 mls/hr Documented by: [id number] Infusion: 10/14/19 13:33 Dose: 100 mls/hr Documented by: [id number] Admin: 10/14/19 12:33 Dose: 100 mls/hr Documented by: [id number] Sodium Chloride (Nss 1000ml) 1,000 mls @ 15 mls/hr IV .Q24H ARMANDO Stop: 10/15/19 15:29 Last Admin: 10/14/19 17:49 Dose: Not Given Documented by: [id number] Sodium Chloride (Nss 1000ml) 1,000 mls @ 80 mls/hr IV .[id number] ARMANDO Stop: 11/13/19 16:22 Last Infusion: 10/14/19 21:51 Dose: 0 mls/hr Documented by: [id number] Infusion: 10/14/19 21:48 Dose: 0 mls/hr Documented by: [id number] Admin: 10/14/19 17:49 Dose: 80 mls/hr Documented by: [id number] Magnesium Sulfate/Dextrose (Magnesium Sulfate / D5w) 1 gm in 100 mls @ 100 mls/hr IV ONE ONE Stop: 10/14/19 19:59 Last Infusion: 10/14/19 22:11 Dose: 100 mls/hr Documented by: [id number] Admin: 10/14/19 21:01 Dose: 100 mls/hr Documented by: [id number] Blood Pressure Blood Pressure Findings: Elevated blood pressure Blood Pressure Disposition: further management by hospitalist Discharge Plan Visit Data *Final* Discharge Date/Time: 10/14/19 15:48 Chief Complaint: Rectal Bleed Stated Complaint: BOWEL BLEED ED Provider: Tio Chandler Discharge Problem: Hematochezia, Hypomagnesemia, Pulmonary embolism, History of cirrhosis of liver Patient Disposition: Still a Patient Discharge Instructions Interventions: ED Discharge Assessment Last Done: 10/14/19 15:48
[2019-10-14] MEDS ORDERED: IOVERSOL 100ml IV PRN (11:48)
--- NOTE | 2019-10-14 12:23 | CT Scan Report ---
CT SCAN OF THE ABDOMEN AND PELVIS WITH IV CONTRAST CLINICAL HISTORY: Left lower quadrant abdominal pain. Hematochezia. COMPARISON STUDY: KUB dated 01/12/2018. TECHNIQUE: Following the IV administration of 94 cc of Optiray 320, CT scan of the abdomen and pelvi s is performed from the lung bases to the proximal femora. Images are reviewed in the axial, sagittal , and coronal planes. IV contrast was administered without complication. A dose lowering technique wa s utilized adhering to the principles of ALARA. CT DOSE: 1514.30 mGy.cm FINDINGS: Lung bases: The heart is normal in size and without pericardial effusion. There are coronary artery c alcifications. The lung bases are clear noting bibasilar scarring/atelectasis. There is a tiny hiatal hernia. There is a filling defect identified within a right lower lobe pulmonary artery branch seen on image #22. Liver: The contrast-enhanced liver is cirrhotic in morphology and heterogeneous in attenuation. There is hypertrophy of the left lobe and caudate as well as nodularity of the surface contour. There is n o intrahepatic biliary ductal dilatation. The hepatic veins and portal veins are patent. Gallbladder: Surgically absent noting clips in the gallbladder fossa. Spleen: Normal in size and attenuation. Pancreas: Moderately atrophic and grossly unremarkable. Adrenal glands: Unremarkable. Kidneys: The contrast enhanced kidneys demonstrate cortical atrophy and are without hydronephrosis. T he kidneys enhance symmetrically. A circumaortic left renal vein is incidentally noted. Abdominal vasculature: The abdominal aorta is normal in course and caliber noting moderate atheroscle rotic calcification. Bowel: There is mild to moderate colonic diverticulosis without CT evidence of acute diverticulitis. No bowel obstruction is seen. There are fluid-filled loops of distal small bowel. The appendix is no t visualized. Peritoneum: There is no intraperitoneal free air or abdominal ascites. Venous collaterals are present within the right retroperitoneal space below the diaphragm. Lymphadenopathy: Prominent lymph nodes in the adis hepatis measure up to 1.6 cm short axis. This is likely related to chronic liver disease. Pelvic viscera: The bladder is normal as visualized. The endometrium appears thickened for age measur ing up to 1.7 cm. No adnexal lesion is seen. Skeletal structures: The skeletal structures are osteopenic. There is postoperative change from L4 to S1 spinal fusion. No lytic or blastic lesions are seen. IMPRESSION: 1. There is a filling defect suggested within a branch of the right lower lobe pulmonary artery which is concerning for pulmonary embolus. Correlation with a CT angiogram of the chest is recommended for further assessment. 2. Cirrhotic liver morphology. 3. There are fluid-filled loops of distal small bowel. This is of indeterminate significance and coul d be seen in the setting of a mild nonspecific enteritis. Clinical correlation will be required. 4. Mild/moderate colonic diverticulosis without CT evidence of acute diverticulitis. 5. The endometrium is thickened for age measuring up to 1.7 cm. This is not well assessed by CT. None mergent follow-up with gynecology and pelvic ultrasound is recommended for further assessment. 6. Additional findings as above. ACT 112: Negative or not required by law. Electronically signed by: Kenny Jung M.D. 10/14/2019 12:21 PM
[2019-10-14 12:27] LABS: INR 1.2 (0.9-1.1); Partial Thromboplastin Time 28.8 Seconds (21.0-31.0); Prothrombin Time 12.4 Seconds (9.0-12.0)
[2019-10-14] MEDS: MAGNESIUM SULFATE / D5W 1 GM/100 ML BAG IV SCH ×2 (12:33→13:39)
--- NOTE | 2019-10-14 12:36 | XRay Report ---
XR chest 1V portable HISTORY: Atypical Chest Pain COMPARISON: Chest 03/09/2018. FINDINGS: The heart remains mildly enlarged. Mild central pulmonary vascular congestion without overt edema. No pneumothorax. A few bibasilar linear densities suggesting subsegmental atelectasis. No ple ural effusions. No new focal lung consolidations to suggest pneumonia. IMPRESSION: Stable cardiomegaly and mild central pulmonary vascular congestion without overt edema. ACT 112: Negative or not required by law. Electronically signed by: Derian Kerns M.D. 10/14/2019 12:35 PM
[2019-10-14] MEDS ORDERED: OPTIRAY 320 125ml IV PRN (13:00)
--- NOTE | 2019-10-14 13:31 | CT Scan Report ---
CT ANGIOGRAM OF THE CHEST CLINICAL HISTORY: Atypical chest pain. Dyspnea. COMPARISON STUDY: Chest CT dated 11/20/2008. Abdominal CT performed the same day 10/14/2019. TECHNIQUE: Following the IV administration of 120 cc of Optiray 320, CT angiogram of the chest was pe rformed from the upper abdomen to the thoracic inlet utilizing the pulmonary embolus protocol. Images are reviewed in the axial, sagittal, and coronal planes. 3-D MIPS images are created and assessed. I V contrast was administered without complication. A dose lowering technique was utilized adhering to the principles of ALARA. CT DOSE: 701.88 mGy.cm FINDINGS: Thyroid: Atrophic. Thoracic aorta: There is mild atherosclerotic calcification of the thoracic aorta, which is normal in caliber and demonstrates standard 3-vessel arch anatomy. No dissection is seen. Pulmonary vasculature: The pulmonary trunk is normal in caliber. There is a filling defect within a s egmental branch of the right lower lobe pulmonary artery seen on image #77. This confirms the presenc e of a small pulmonary embolus. No additional pulmonary emboli are identified in either lung. Heart: The heart is mildly enlarged and without pericardial effusion. Lungs and pleural spaces: There is no airspace consolidation or pleural effusion. The trachea and hemalatha tral airways are clear. Foci of scarring/atelectasis are present at the lung bases. Mediastinum: Scattered subcentimeter mediastinal lymph nodes are not pathologically enlarged by size criteria. Nabila: Clear. Axillae: There is no axillary lymphadenopathy. Upper abdomen: The liver is cirrhotic in morphology and heterogeneous in attenuation. There is nodula rity of the hepatic surface contour. Skeletal structures: The skeletal structures are osteopenic. No lytic or blastic bony lesions are see n. Degenerative change and hyperkyphosis are noted in the thoracic spine. IMPRESSION: 1. CT angiogram confirms the presence of a segmental pulmonary embolus within a branch of the right l ower lobe pulmonary artery. 2. No additional pulmonary emboli are identified. 3. There is no airspace consolidation or pleural effusion. 4. Additional findings as above. ACT 112: Negative or not required by law. Electronically signed by: Kenny Jung M.D. 10/14/2019 1:29 PM
--- NOTE | 2019-10-14 15:21 | History & Physical Report ---
Date of Service October 14, 2019 Assessment & Plan (1) Hematochezia: Patient with history of esophageal varices requiring banding Patient with new acute GI loss/BRBPR Hemoglobin actually higher today at 12 than it has been previously Discussed case with gastroenterology At this point Dr. Garcia will be taken the patient to the OR for EGD later today Suspect that this is the cause of her GI bleed. (2) Right pulmonary embolus: Incidental finding on a abdominal CT Right lower lobe segmental artery She is completely asymptomatic with this-no hypoxia, no tachycardia, no tachypnea Hold anticoagulation pending EGD Check lower extremity duplex to rule out DVT Patient denies previous history of DVT or pulmonary embolus She is fairly sedentary Also with endometrial thickening on CT scan of the abdomen/pelvis-question if has endometrial cancer? -If no DVT, and small asymptomatic segmental PE--> if troponin negative, BNP negative, echo normal, may not have to anticoagulate especially in the setting of GI bleeding as a contraindication -Hold off on any anticoagulation at this time -Could also consider IVC filter if has extensive lower extremity DVT (3) Esophageal varices determined by endoscopy: In the past, status post banding (4) Hypertension: Blood pressures significantly elevated upon admission with hypertensive urgency Home meds include lisinopril 10 mg p.o. at bedtime Patient states that whenever she is in the hospital the office the blood p ressure goes up -Continue to follow (5) Diabetes mellitus with peripheral vascular disease: Patient denies insulin usage at home We will place patient on NovoLog sliding scale and check hemoglobin A1c Hold oral meds secondary to CT scan with contrast (6) Anemia: Has a history of chronic iron deficiency anemia-has been scoped above and below multiple times in the past and does receive IV iron infusions with hematology as recently as last week Currently hemoglobin is above 12 Follow H&H every 6 hours given GI bleed Plan on EGD later this afternoon to look for blood loss from esophageal varices (7) Hypercholesterolemia: Continue atorvastatin 10 mg at bedtime (8) MGUS (monoclonal gammopathy of unknown significance): Outpatient follow-up with hematology and oncology (9) Hypomagnesemia: No nausea or vomiting No diarrhea prior to bloody stool this morning Replete and follow serial labs (10) History of cirrhosis of liver: Secondary to ROTHMAN Follows with GI (11) Pancytopenia: Secondary to Rothman -Follow CBC (12) 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: Noted on exam Echocardiogram from 2013 with severely dilated RV with normal RV function, and some mild valvular disease -Check echo (13) Thickened endometrium: With endometrial lining thickened at 1.[address] scan No vaginal bleeding since menopause as per patient This could be an endometrial cancer until proven otherwise-could explain etiology of PE -Check pelvic ultrasound transvaginal tomorrow Her FILE DRAWER FINISHER is Dr. Farias if consult needed (14) DVT prophylaxis: No anticoagulation given GI bleeding, avoid SCDs or ITZ hose until rule out DVT Disposition-admit to medical floor with telemetry History of Present Illness Primary Care Provider: Bee De La Torre MD Attending: Dr. Viviana Ibarra This is a 74-year-old female with a history of Rothman, esophageal varices, diabetes mellitus type 2, hyperlipidemia, and morbid obesity. The patient awoke this morning with 2 bouts of bloody stool which was bright red in color. She has very mild abdominal pain. She denies any rectal pain. The patient presented to the emergency department for further evaluation and had a another bout of bright red bloody stool which she reports as being almost completely blood. The patient's hemoglobin has remained steady at 12.3. She also is hemodynamically stable and in fact has hypertensive urgency at the time of my visit. Blood pressure currently is being managed by Dr. Chandler. Patient denies any headache, abdominal pain, rectal pain, chest pain, tightness, shortness of breath. Allergies Allergy/AdvReac Type Severity Reaction Status Date / Time No Known Drug Allergies Allergy Unknown Verified 10/14/19 11:45 Home Medications Home Medications Medication Instructions Recorded Confirmed Type cholecalciferol (vitamin D3) 2,000 unit PO QAM 07/01/18 10/14/19 History [Vitamin D3] docusate sodium 100 mg PO BID PRN 07/01/18 10/14/19 History pantoprazole 40 mg tablet,delayed 40 mg PO BID #60 tab 03/20/19 10/14/19 Rx release glimepiride 2 mg tablet See Rx Instructions PO .COMPLEX 06/17/19 10/14/19 Rx #90 tab metformin 500 mg tablet 1,000 mg PO BID #360 tab 09/23/19 10/14/19 Rx atorvastatin 10 mg PO HS 10/14/19 10/14/19 History lisinopril 10 mg PO HS 10/14/19 10/14/19 History multivitamin 1 tab PO QAM 10/14/19 10/14/19 History vitamin E 0 unit PO QAM 10/14/19 10/14/19 History Past Med/Surg History Medical History (Updated 10/14/19 @ 18:46 by Viviana Ibarra MD) 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 no card checker Chronic back pain 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 to alcohol Diabetes mellitus, type 2 Esophageal varices (Inactive) Esophageal varices determined by endoscopy GERD (gastroesophageal reflux disease) GI bleed Hyperlipidemia Hypertension (Chronic) Migraine Osteoarthritis Pancytopenia Thickened endometrium Surgical History History of bilateral breast reduction surgery History of bilateral cataract extraction History of carpal tunnel release of both wrists History of section x3 History of cholecystectomy History of colonoscopy History of dilatation and curettage History of esophagogastroduodenoscopy (EGD) History of lumbar spinal fusion hardware in place History of tonsillectomy History of tooth extraction all teeth History of total left knee replacement (TKR) History of total right knee replacement (TKR) Family History Mother Family history of diabetes mellitus Brother Family history of diabetes mellitus 3 brothers Colorectal cancer Myocardial infarction x 2 Father Myocardial infarction Denies family history of Ovarian cancer Prostate cancer Breast cancer Social History Preferred Language: [place] Communication Ability: Effective 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: No Beliefs That Will Affect Care: None marital status: Current Living Situation: Family Current Living Situation Comment: Lives in grandson's apartment Other Information That Helps Us Care for You: No Feels Safe at Home: Yes Safety Concerns: Feels Safe At This Time Smoking Status: Former smoker Do You Dip or Chew Tobacco: No ; Second Hand Exposure: No ; Tobacco Cessation Education Requested by Patient: No Hx Alcohol Use: No Hx Substance Use: No Dental Care, Regularly: No Seatbelt Use: always Review of Systems Review of Systems: All systems reviewed & are unremarkable except as noted in HPI & below Physical Exam Physical Exam: GENERAL : No acute distress EYES: No icterus, gaze conjugate NOSE: No evidence of epistaxis MOUTH: No lesions or candidiasis NECK: Supple. Left carotid bruit appreciated LUNGS: CTA B/L, no wheezes, rales or rhonchi HEART: Regular, rate controlled. No appreciation of ectopy ABDOMEN: Soft, NT, ND, BS Present EXTREMITIES: Left LE edema with calf tenderness, pedal pulses intact and equal bilaterally. Feet warm. NEURO: A&OX3. Cranial nerves II through XII appear grossly intact without focal deficit Results & Data Vital Signs (Past 12 Hours) Vital Signs Temp Pulse Pulse Resp BP BP Pulse Ox 10/14/19 13:40 76 28 H 165/74 H 10/14/19 13:30 77 21 10/14/19 13:12 98 H 19 10/14/19 12:30 90 17 97 10/14/19 12:09 86 20 183/86 H 97 10/14/19 12:08 86 17 183/86 H 97 10/14/19 12:07 94 H 19 10/14/19 11:30 79 13 10/14/19 11:06 93 10/14/19 11:00 81 18 10/14/19 10:56 88 20 10/14/19 10:37 36.5 C 102 H 20 222/98 H 94 10/14/19 10:07 90 20 126/97 Laboratory Results 10/14/19 11:00 10/14/19 11:00 INR 1.2 (0.9-1.1) H 10/14/19 11:00 Laboratory Tests 10/14/19 10/14/19 11:00 11:00 APTT 28.8 Magnesium 0.9 L* Diagnostic Findings CT ANGIOGRAM OF THE CHEST CLINICAL HISTORY: Atypical chest pain. Dyspnea. COMPARISON STUDY: Chest CT dated 11/20/2008. Abdominal CT performed the same day 10/14/2019. TECHNIQUE: Following the IV administration of 120 cc of Optiray 320, CT angiogram of the chest was performed from the upper abdomen to the thoracic inlet utilizing the pulmonary embolus protocol. Images are reviewed in the axial, sagittal, and coronal planes. 3-D MIPS images are created and assessed. I V contrast was administered without complication. A dose lowering technique was utilized adhering to the principles of ALARA. CT DOSE: 701.88 mGy.cm FINDINGS: Thyroid: Atrophic. Thoracic aorta: There is mild atherosclerotic calcification of the thoracic aorta, which is normal in caliber and demonstrates standard 3-vessel arch anatomy. No dissection is seen. Pulmonary vasculature: The pulmonary trunk is normal in caliber. There is a filling defect within a segmental branch of the right lower lobe pulmonary artery seen on image #77. This confirms the presence of a small pulmonary embolus. No additional pulmonary emboli are identified in either lung. Heart: The heart is mildly enlarged and without pericardial effusion. Lungs and pleural spaces: There is no airspace consolidation or pleural effusion. The trachea and central airways are clear. Foci of scarring/atelectasis are present at the lung bases. Mediastinum: Scattered subcentimeter mediastinal lymph nodes are not pathologica lly enlarged by size criteria. Nabila: Clear. Axillae: There is no axillary lymphadenopathy. Upper abdomen: The liver is cirrhotic in morphology and heterogeneous in attenuation. There is nodularity of the hepatic surface contour. Skeletal structures: The skeletal structures are osteopenic. No lytic or blastic bony lesions are seen. Degenerative change and hyperkyphosis are noted in the thoracic spine. IMPRESSION: 1. CT angiogram confirms the presence of a segmental pulmonary embolus within a branch of the right lower lobe pulmonary artery. 2. No additional pulmonary emboli are identified. 3. There is no airspace consolidation or pleural effusion. 4. Additional findings as above. ACT 112: Negative or not required by law. Electronically signed by: Kenny Jung M.D. 10/14/2019 1:[address] SCAN OF THE ABDOMEN AND PELVIS WITH IV CONTRAST CLINICAL HISTORY: Left lower quadrant abdominal pain. Hematochezia. COMPARISON STUDY: KUB dated 01/12/2018. TECHNIQUE: Following the IV administration of 94 cc of Optiray 320, CT scan of the abdomen and pelvis is performed from the lung bases to the proximal femora. Images are reviewed in the axial, sagittal, and coronal planes. IV contrast was administered without complication. A dose lowering technique was utilized adhering to the principles of ALARA. CT DOSE: 1514.30 mGy.cm FINDINGS: Lung bases: The heart is normal in size and without pericardial effusion. There are coronary artery calcifications. The lung bases are clear noting bibasilar scarring/atelectasis. There is a tiny hiatal hernia. There is a filling defect identified within a right lower lobe pulmonary artery branch seen on image #22. Liver: The contrast-enhanced liver is cirrhotic in morphology and heterogeneous in attenuation. There is hypertrophy of the left lobe and caudate as well as nodularity of the surface contour. There is no intrahepatic biliary ductal dilatation. The hepatic veins and portal veins are patent. Gallbladder: Surgically absent noting clips in the gallbladder fossa. Spleen: Normal in size and attenuation. Pancreas: Moderately atrophic and grossly unremarkable. Adrenal glands: Unremarkable. Kidneys: The contrast enhanced kidneys demonstrate cortical atrophy and are without hydronephrosis. The kidneys enhance symmetrically. A circumaortic left renal vein is incidentally noted. Abdominal vasculature: The abdominal aorta is normal in course and caliber noting moderate atherosclerotic calcification. Bowel: There is mild to moderate colonic diverticulosis without CT evidence of acute diverticulitis. No bowel obstruction is seen. There are fluid-filled loops of distal small bowel. The appendix is not visualized. Peritoneum: There is no intraperitoneal free air or abdominal ascites. Venous collaterals are present within the right retroperitoneal space below the diaphr agm. Lymphadenopathy: Prominent lymph nodes in the adis hepatis measure up to 1.6 cm short axis. This is likely related to chronic liver disease. Pelvic viscera: The bladder is normal as visualized. The endometrium appears thickened for age measuring up to 1.7 cm. No adnexal lesion is seen. Skeletal structures: The skeletal structures are osteopenic. There is postoperative change from L4 to S1 spinal fusion. No lytic or blastic lesions are seen. IMPRESSION: 1. There is a filling defect suggested within a branch of the right lower lobe pulmonary artery which is concerning for pulmonary embolus. Correlation with a CT angiogram of the chest is recommended for further assessment. 2. Cirrhotic liver morphology. 3. There are fluid-filled loops of distal small bowel. This is of indeterminate significance and could be seen in the setting of a mild nonspecific enteritis. Clinical correlation will be required. 4. Mild/moderate colonic diverticulosis without CT evidence of acute diverti culitis. 5. The endometrium is thickened for age measuring up to 1.7 cm. This is not well assessed by CT. Nonemergent follow-up with gynecology and pelvic ultrasound is recommended for further assessment. 6. Additional findings as above. ACT 112: Negative or not required by law. Electronically signed by: Kenny Jung M.D. 10/14/2019 12:21 PM Code Status & VTE Plan Code Status Full resuscitation VTE Prophylaxis Plan VTE Prophylaxis will be ordered: No Supervising Physician Co-Signing Physician Notes PA Supervision Note: I personally saw and examined the patient. I verified all almanzar points and agree with EROS Pederson with the following exceptions and/or additions: Patient presented with a few episodes of bright red blood per rectum that was fairly painless except for some mild discomfort in the suprapubic region. She also had hypertensive urgency in the ER. Denied chest pain or shortness of breath, no tachypnea or tachycardia. She was incidentally noted to have a small right lower lobe segmental PE on imaging of the abdomen/pelvis and confirmed with chest CT. History and ROS reviewed as above I saw the patient in the PACU after her EGD to which she was taken right from the ER. EGD was normal Vitals reviewed Gen: AAOx3, NAD, morbidly obese HEENT: Anicteric sclerae, EOMI CV: RRR positive 2/6 systolic murmur at the left lower sternal border, nl S1S2 Pulm: CTAB no wcr Abd: +BS soft NT ND no masses or hernias, obese, rectal exam deferred Ext: No edema, 2+ DP pulses Skin: No rashes, warm/dry Neuro: Full strength throughout 74-year-old female here with acute likely lower GI bleed and incidental finding of right lower lobe segmental PE With endometrial thickening on CT scan also-could have endometrial cancer causing VTE She is completely hemodynamically stable and not hypoxic -Serial H&H and transfuse as needed for hemoglobin less than 8 or with active bleeding and hemoglobin less than 10 -If diverticular bleed, should be self-limited as long as not on blood thinners -We will hold off on anticoagulation at this time given completely asymptomatic small PE-awaiting Doppler lower extremities-if positive for large DVT, consider anticoagulation versus IVC filter more urgently -Otherwise, if small DVT or no DVT-could hold off on anticoagulation-we will consult vascular for IVC filter placement evaluation if has a DVT at all -Plan for pelvic ultrasound in the morning and outpatient MANAGER LSW follow-up for e ndometrial biopsy Give lisinopril early this evening for elevated blood pressures and IV hydralazine as needed PG Care Time/CCT Total # of Minutes Spent Total Time Spent with Patient: Total time spent is greater than 50% in coordination of care (as documented) at patient's floor/unit and/or counseling patient: 60 minutes including discussion with patient, granddaughter, consulting group, and attending. Coding Level of Care Code 02612 Initial Inpt Care Lvl 3 Diagnoses Hematochezia K92.1 Right pulmonary embolus I26.99 Esophageal varices determined by endoscopy I85.00 Hypertension I10 Diabetes mellitus with peripheral vascular disease E11.51 Anemia D64.9 Hypercholesterolemia E78.00 MGUS (monoclonal gammopathy of unknown significance) D47.2 Hypomagnesemia E83.42 History of cirrhosis of liver Z87.19 Pancytopenia D61.818 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 R01.1 Thickened endometrium R93.89 DVT prophylaxis Z29.9 Time Spent (min) 60
--- NOTE | 2019-10-14 15:23 | History & Physical Report ---
Date of Service October 14, 2019 History of Present Illness Chief Complaint: rectal bleeding Primary Care Provider: Bee De La Torre MD For emergency EGD Allergies Allergy/AdvReac Type Severity Reaction Status Date / Time No Known Drug Allergies Allergy Unknown Verified 10/14/19 11:45 Home Medications Home Medications Medication Instructions Recorded Confirmed Type cholecalciferol (vitamin D3) 2,000 unit PO QAM 07/01/18 10/14/19 History [Vitamin D3] docusate sodium 100 mg PO BID PRN 07/01/18 10/14/19 History pantoprazole 40 mg tablet,delayed 40 mg PO BID #60 tab 03/20/19 10/14/19 Rx release glimepiride 2 mg tablet See Rx Instructions PO .COMPLEX 06/17/19 10/14/19 Rx #90 tab metformin 500 mg tablet 1,000 mg PO BID #360 tab 09/23/19 10/14/19 Rx atorvastatin 10 mg PO HS 10/14/19 10/14/19 History lisinopril 10 mg PO HS 10/14/19 10/14/19 History multivitamin 1 tab PO QAM 10/14/19 10/14/19 History vitamin E 0 unit PO QAM 10/14/19 10/14/19 History Past Med/Surg History Family History (Updated 04/23/19 @ 10:56 by Gregory Juarez) Mother Family history of diabetes mellitus Brother Family history of diabetes mellitus 3 brothers Colorectal cancer Myocardial infarction x 2 Father Myocardial infarction Denies family history of Ovarian cancer Prostate cancer Breast cancer Social History (Updated 04/23/19 @ 10:57 by Gregory Juarez) Preferred Language: [place] Communication Ability: Effective 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 Beliefs That Will Affect Care: None marital status: Current Living Situation: Family Current Living Situation Comment: Lives in grandson's apartment Feels Safe at Home: Yes Smoking Status: Never smoker Second Hand Exposure: Yes (whole family smoked) ; Hx Alcohol Use: No Hx Substance Use: No Dental Care, Regularly: No Seatbelt Use: always Physical Exam Constitutional: + obese Respiratory: normal respiratory effort Cardiovascular: Rate/Rhythm: + tachycardic Gastrointestinal (Abdomen): Percussion/Palpation: abdomen soft RUQ scar Results & Data Vital Signs (Past 12 Hours) Vital Signs Temp Pulse Pulse Resp BP BP Pulse Ox 10/14/19 13:40 76 28 H 165/74 H 10/14/19 13:30 77 21 10/14/19 13:12 98 H 19 10/14/19 12:30 90 17 97 10/14/19 12:09 86 20 183/86 H 97 10/14/19 12:08 86 17 183/86 H 97 10/14/19 12:07 94 H 19 10/14/19 11:30 79 13 10/14/19 11:06 93 10/14/19 11:00 81 18 10/14/19 10:56 88 20 10/14/19 10:37 36.5 C 102 H 20 222/98 H 94 10/14/19 10:07 90 20 126/97 Code Status & VTE Plan VTE Prophylaxis Plan VTE Prophylaxis will be ordered: No
[2019-10-14] MEDS ORDERED: SODIUM CHLORIDE 0.9% 1000ML 1,000 ML IV SCH ×2 (15:30→16:23)
--- NOTE | 2019-10-14 15:30 | Anesthesiology Consultation ---
Date of Service October 14, 2019 Assessment & Plan Chart Review Chart Review: Acceptable Risk for Surgery Consults Requested none ASA ASA3 Proposed Anesthesia Anesthesia Type: MAC Risk / Benefits Reviewed With: PT / POA / Parent / Guardian, Accepts Plan and Informed Consent Obtained History Surgery Operation Date: 10/14/19 13:40 Proposed Procedures p Esophagogastroduodenoscopy - Tien Garcia Height/Weight Height: 5 ft 1 in Weight: 105.6 kg Allergies Allergy/AdvReac Type Severity Reaction Status Date / Time No Known Drug Allergies Allergy Unknown Verified 10/14/19 11:45 Medications Home Medications Medication Instructions Recorded Confirmed Last Taken cholecalciferol (vitamin D3) 2,000 unit PO QAM 07/01/18 10/14/19 10/14/19 [Vitamin D3] docusate sodium 100 mg PO BID PRN 07/01/18 10/14/19 Unknown pantoprazole 40 mg tablet,delayed 40 mg PO BID #60 tab 03/20/19 10/14/19 10/14/19 release glimepiride 2 mg tablet See Rx Instructions PO .COMPLEX 06/17/19 10/14/19 10/14/19 #90 tab 1 mg metformin 500 mg tablet 1,000 mg PO BID #360 tab 09/23/19 10/14/19 10/14/19 atorvastatin 10 mg PO HS 10/14/19 10/14/19 10/13/19 lisinopril 10 mg PO HS 10/14/19 10/14/19 10/13/19 multivitamin 1 tab PO QAM 10/14/19 10/14/19 10/14/19 vitamin E 0 unit PO QAM 10/14/19 10/14/19 10/14/19 Active Medications Generic Name Dose Route Start Last Admin Trade Name Freq PRN Reason Stop Dose Admin Ioversol 94 ml 10/14/19 11:48 10/14/19 11:48 Optiray 320 100ml IV 10/18/19 11:47 94 ml ONCE PRN Administration Interaction Checking Ioversol 120 ml 10/14/19 13:00 10/14/19 13:00 Optiray 320 125ml IV 10/18/19 12:59 120 ml ONCE PRN Administration Interaction Checking NPO Date Last Intake of Fluids: 10/14/19 Time Last Intake of Fluids: 08:00 Date Last Intake of Solids: 10/14/19 Time Last Intake of Solids: 08:00 Past Medical History Medical History 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 Chronic back pain 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 to alcohol Diabetes mellitus, type 2 Esophageal varices (Inactive) Esophageal varices determined by endoscopy GERD (gastroesophageal reflux disease) GI bleed Hyperlipidemia Hypertension (Chronic) Migraine Osteoarthritis Exercise / Class Metabolic Activity III < 4 Walking/Shop/Light housework Past Family History Family History Mother Family history of diabetes mellitus Brother Family history of diabetes mellitus 3 brothers Colorectal cancer Myocardial infarction x 2 Father Myocardial infarction Denies family history of Ovarian cancer Prostate cancer Breast cancer Past Surgical History Surgical History History of bilateral breast reduction surgery History of bilateral cataract extraction History of carpal tunnel release of both wrists History of section x3 History of cholecystectomy History of colonoscopy History of dilatation and curettage History of esophagogastroduodenoscopy (EGD) History of lumbar spinal fusion hardware in place History of tonsillectomy History of tooth extraction all teeth History of total left knee replacement (TKR) History of total right knee replacement (TKR) Past Anesthesia History No Hx of Anesthesia Complications and No Family Hx of Anesthesia Complications History of PONV No Hx of PONV and No Hx of Motion Sickness Social History Smoking Status: Never smoker Hx Alcohol Use: No Alcohol type: other alcohol intake frequency: holidays/special occasions only Hx Substance Use: No substance use type: does not use Physical Exam Vital Signs Last Vital Signs Temp 97.9 F 10/14/19 15:47 Pulse 93 H 10/14/19 15:47 Resp 20 10/14/19 15:47 BP 219/127 H 10/14/19 15:47 Pulse Ox 96 10/14/19 15:47 ENMT Mouth: no dentition abnormality Thyromental Distance: > or= 3.5 Finger Breadths Mallampati Class: II Neck normal visual inspection Respiratory normal respiratory effort Auscultation: lungs clear to auscultation bilaterally Cardiovascular Rate/Rhythm: regular rate and regular rhythm Heart Sounds: + murmur (3/6 SHAWN) Testing Laboratory Results 10/14/19 11:00 10/14/19 11:00 PT 12.4 Seconds (9.0-12.0) H 10/14/19 11:00 INR 1.2 (0.9-1.1) H 10/14/19 11:00 APTT 28.8 Seconds (21.0-31.0) 10/14/19 11:00 Blood Type A Negative 10/14/19 11:15 Antibody Screen NEGATIVE 10/14/19 11:15 Electrocardiogram Date: 10/14/19 Normal sinus rhythm, rate 83 bpm Right bundle branch block Left anterior fascicular block Bifascicular block Minimal voltage criteria for LVH, may be normal variant Abnormal ECG When compared with ECG of 01-JUL-2018 11:47, No significant change was found Other Testing Chest CTA 10/14/19 IMPRESSION: 1. CT angiogram confirms the presence of a segmental pulmonary embolus within a branch of the right lower lobe pulmonary artery. 2. No additional pulmonary emboli are identified. 3. There is no airspace consolidation or pleural effusion. 4. Additional findings as above.
[2019-10-14] MEDS ORDERED: GLUCAGON FOR INJ 1 MG VIAL SQ PRN (15:51)
[2019-10-14] MEDS ORDERED: GLUCOSE 10 TABS/TUBE PO PRN (15:51)
[2019-10-14] MEDS ORDERED: DEXTROSE 50% 50 ML SYRINGE IV PRN (15:51)
[2019-10-14] MEDS ORDERED: GLUCOSE 40% GEL 15 GM TUBE PO PRN (15:51)
[2019-10-14] MEDS ORDERED: CARBOHYDRATES FOR HYPOGLYCEMIA PO PRN (15:51)
[2019-10-14] MEDS ORDERED: ePHEDrine sulfate 50 MG/ML AMP IV PRN (15:57)
[2019-10-14] MEDS ORDERED: ATROPINE SULFATE 0.1 MG/ML 10ML SYR IV PRN (15:57)
[2019-10-14] MEDS ORDERED: ONDANSETRON INJ 2 MG/ML 2 ML VIAL ONE (16:12)
[2019-10-14] MEDS ORDERED: LABETALOL HCL IV 5 MG/ML 20ML IV ONE (16:12)
[2019-10-14] MEDS ORDERED: PROPOFOL IV EMULSION 10 MG/ML 20 ML VIAL IV ONE (16:12)
[2019-10-14] MEDS ORDERED: LIDOCAINE HCL 2% 2 ML VIAL/AMP(20MG/ML) INFIL ONE (16:12)
--- NOTE | 2019-10-14 16:18 | GI REPORT ---
Patient Name: Rosalind Dudley Procedure Date: 10/14/2019 3:29 PM Date of : 1945 Admit Type: Emergency Department Age: 74 Gender: Female Attending MD: Tien Garcia MD Procedure: Upper GI endoscopy Providers: Tien Garcia MD Referring MD: Tio Chandler M.d. Indications: Hematochezia Medicines: Propofol total dose 150 mg IV, Lidocaine 80 mg IV, Ondansetron 4 mg IV Complications: No immediate complications. Estimated Blood Loss: Estimated blood loss: none. Procedure: Pre-Anesthesia Assessment: - Prior to the procedure, a History and Physical was performed, and patient medications, allergies and sensitivities were reviewed. The patient's tolerance of previous anesthesia was reviewed. - The risks and benefits of the procedure and the sedation options and risks were discussed with the patient. All questions were answered and informed consent was obtained. After obtaining informed consent, the endoscope was passed under direct vision. Throughout the procedure, the patient's blood pressure, pulse, and oxygen saturations were monitored continuously. The Scope was introduced through the mouth, and advanced to the second part of duodenum. The upper GI endoscopy was accomplished without difficulty. The patient tolerated the procedure well. Findings: The Z-line was regular and was found 39 cm from the incisors. No varices. The entire examined stomach was normal. The examined duodenum was normal. Estimated blood loss: none. Impression: - Z-line regular, 39 cm from the incisors. - Normal stomach. - Normal examined duodenum. - No specimens collected. Recommendation: - [facility] care. Tien Garcia M.D. Tien Garcia MD 10/14/2019 4:17:29 PM This report has been signed electronically. Note Initiated On: 10/14/2019 3:29 PM Number of Addenda: 0 I attest to the content of the Intraoperative Record and orders documented therein, exceptions below {[id number]}
--- NOTE | 2019-10-14 16:28 | Electrocardiogram Report ---
Test Reason : Blood Pressure : / mmHG Vent. Rate : 083 BPM Atrial Rate : 083 BPM P-R Int : 114 ms QRS Dur : 134 ms QT Int : 416 ms P-R-T Axes : 066 -62 054 degrees QTc Int : 488 ms Normal sinus rhythm Right bundle branch block Left anterior fascicular block Bifascicular block Minimal voltage criteria for LVH, may be normal variant Abnormal ECG When compared with ECG of 01-JUL-2018 11:47, No significant change was found Confirmed by Wesley Sanders ([id number]) on 10/14/2019 4:28:02 PM Referred By: ED Confirmed By:Yobany Sanders
--- NOTE | 2019-10-14 16:42 | Anesthesiology Progress Note ---
Date of Service October 14, 2019 Anesthesia Post Procedure Vital Signs Vital Signs: Temp Pulse Pulse Pulse Resp BP BP 10/14/19 16:30 82 24 164/92 H 10/14/19 16:22 97.3 F L 81 18 142/81 H 10/14/19 15:47 97.9 F 93 H 20 219/127 H 10/14/19 15:30 81 16 10/14/19 15:00 81 18 10/14/19 14:44 82 15 216/143 H 10/14/19 14:30 83 17 10/14/19 14:01 79 28 H 226/112 H 10/14/19 14:00 74 26 H 10/14/19 13:40 76 28 H 165/74 H 10/14/19 13:30 77 21 10/14/19 13:12 98 H 19 10/14/19 12:30 90 17 10/14/19 12:09 86 20 183/86 H 10/14/19 12:08 86 17 183/86 H 10/14/19 12:07 94 H 19 10/14/19 11:30 79 13 10/14/19 11:06 10/14/19 11:00 81 18 10/14/19 10:56 88 20 10/14/19 10:37 97.7 F 102 H 20 222/98 H 10/14/19 10:07 90 20 126/97 Pulse Ox 10/14/19 16:30 99 10/14/19 16:22 99 10/14/19 15:47 96 10/14/19 15:30 10/14/19 15:00 10/14/19 14:44 10/14/19 14:30 10/14/19 14:01 10/14/19 14:00 10/14/19 13:40 10/14/19 13:30 10/14/19 13:12 10/14/19 12:30 97 10/14/19 12:09 97 10/14/19 12:08 97 10/14/19 12:07 10/14/19 11:30 10/14/19 11:06 93 10/14/19 11:00 10/14/19 10:56 10/14/19 10:37 94 10/14/19 10:07 Transfer of Care Handoff Completed per policy Notes Mental Status: alert / awake / arousable and participated in evaluation Patient Amnestic to Procedure: Yes Nausea / Vomiting: adequately controlled Pain: adequately controlled Airway Patency, RR, SpO2: stable & adequate BP & HR: stable & adequate Hydration State: stable & adequate Anesthetic Complications: no major complications apparent and Pt Satisfied with anesthetic care
--- NOTE | 2019-10-14 16:48 | Consultation Report ---
DATE OF CONSULTATION: 10/14/2019 REASON FOR EVALUATION: Rectal bleeding. HISTORY OF PRESENT ILLNESS: The patient is a 74-year-old with prior history of esophageal varices banded in the past who presented to the Emergency Room today with large volume painless rectal bleeding. She did have a little bit of epigastric discomfort, but no vomiting of blood. The patient's vital signs were relatively stable in the Emergency Room. She did undergo a CT scan which showed a small right lower lobe pulmonary embolism. Of note is the patient is not on any aspirin or blood thinners at home. Because of rectal bleeding in the pulmonary embolism and question about what to do for anticoagulation GI consultation was obtained. Of note, the patient did have a colonoscopy in the past that showed diverticular disease but no polyps or cancer. PAST MEDICAL HISTORY: Remarkable for metabolic syndrome with GREGORY and probable cirrhosis. She did have esophageal varices that were small but banded in the past and obliterated at the time that they were last checked. The patient also has degenerative arthritis. She had breast reduction surgery, cataract surgery, carpal tunnel release bilaterally, 3 C-sections, cholecystectomy, lumbar spinal fusion, tonsillectomy, bilateral knee replacements. FAMILY HISTORY: Positive for diabetes in her mother and brother. Father had a myocardial infarction. SOCIAL HISTORY: The patient is . She lives with her grandson. Does not smoke or use alcohol. REVIEW OF SYSTEMS: Unremarkable except for that described previously. PHYSICAL EXAMINATION: GENERAL: The patient appears awake, alert, in no acute distress. VITAL SIGNS: Blood pressure 165/74, pulse 76 and regular, O2 saturations 97%. LUNGS: Clear. HEART: Showed normal S1 and S2. ABDOMEN: Showed a right upper quadrant scar. There was no mass or tenderness. EXTREMITIES: Showed scars over both kneecaps from knee replacements. There was a little bit of venous stasis in the distal part of the legs and a little bit of tenderness over the linder on the left side. LABORATORY DATA: Shows an INR of 1.2. Hemoglobin 12.3, hematocrit 39.6. The patient was taken to the operating room where she was sedated with propofol and an upper endoscopy was performed. There were no esophageal varices present. The Z-line was at 39 cm. Stomach was empty with no signs of blood or bleeding. The duodenum was examined to the second portion and there were no lesions seen. IMPRESSION: The patient does not have an upper GI source of blood loss; this indicates it is most likely diverticular bleeding. Given her pulmonary embolism there may be a need for anticoagulation and if so options are to possibly coil the bleeding diverticular site or potentially put in a filter if she is found to have a large DVT and not anticoagulate her. The other option if she does not have a large DVT just to observe her without putting her on anticoagulation and hopefully her bleeding stops and she will not have any more emboli. We will continue to follow the patient.
[2019-10-14] MEDS: INSULIN ASPART 100 UNITS/ML 3 ML PEN SC SCH ×2 (17:50→21:03)
[2019-10-14 18:02] LABS: Hematocrit (blood only) 38.5 % (37-47); Hemoglobin 11.9 g/dL (12.0-16.0); Mean Corpuscular Hemoglobin 26.4 pg (25-34); Mean Corpuscular Hgb Conc 30.9 g/dL (32-36); Mean Corpuscular Volume 85.4 fL (80-100); RDW Coefficient of Variation 21.1 % (11.5-14.5); RDW Standard Deviation 65.4 fL (36.4-46.3); Red Blood Count 4.51 M/uL (4.2-5.4); White Blood Count 2.64 K/uL (4.8-10.8)
[2019-10-14 18:14] LABS: Magnesium 1.5 mg/dl (1.8-2.4)
[2019-10-14] MEDS: lisinopriL 10 MG TAB PO SCH (18:42)
[2019-10-14 18:46] LABS: Mean Platelet Volume 9.5 fL (7.4-10.4); Platelet Count 99 K/uL (130-400)
[2019-10-14 18:47] LABS: Basophils # (auto) 0.01 K/uL (0-0.2); Basophils % (auto) 0.4 %; Eosinophils # (auto) 0.13 K/uL (0-0.5); Eosinophils % (auto) 4.9 %; Hypochromasia Present; Lymphocytes # (auto) 0.81 K/uL (1.2-3.4); Lymphocytes % (auto) 30.7 %; Monocytes # (auto) 0.23 K/uL (0.11-0.59); Monocytes % (auto) 8.7 %; Neutrophils # (auto) 1.46 K/uL (1.4-6.5); Neutrophils % (auto) 55.3 %; Platelet Estimate Decreased (Normal); Polychromasia 1+
[2019-10-14] MEDS ORDERED: MAGNESIUM SULFATE / D5W 1 GM/100 ML BAG IV ONE (19:00)
--- NOTE | 2019-10-14 20:44 | Ultrasound Report ---
US venous doppler LE BI HISTORY: Pain. Edema. R/O DVT COMPARISON STUDY: 03/15/2018. FINDINGS: right leg shows a small deep venous thrombosis within the distal aspect of the popliteal ve in. All remaining venous structures of the right leg are unremarkable. Left leg shows a component of chronic scarring of the left popliteal vein. No evidence for acute deep venous thrombosis. IMPRESSION: 1. Small focal acute deep venous thrombosis right popliteal vein. 2. Chronic venous scarring left popliteal vein. 3. All remaining vessels are unremarkable. ACT 112: Negative or not required by law. The above report was generated using voice recognition software. It may contain grammatical, syntax or spelling errors. Electronically signed by: Sean Benjamin M.D. 10/14/2019 8:43 PM
[2019-10-14] MEDS ORDERED: lisinopriL 10 MG TAB PO SCH (21:00)
[2019-10-14] MEDS: PANTOprazole 40 MG TAB PO SCH (21:02)
[2019-10-14] MEDS: ATORVASTATIN 10 MG TAB PO SCH (21:03)
[2019-10-14] MEDS ORDERED: HydrALAZINE HCL 20 MG/ML VIAL IV PRN (21:38)
[2019-10-14 22:26] LABS: Hematocrit (blood only) 38.2 % (37-47); Hemoglobin 11.8 g/dL (12.0-16.0)
[2019-10-15 05:21] LABS: Hematocrit (blood only) 35.3 % (37-47); Hemoglobin 10.9 g/dL (12.0-16.0); Mean Corpuscular Hemoglobin 26.5 pg (25-34); Mean Corpuscular Hgb Conc 30.9 g/dL (32-36); Mean Corpuscular Volume 85.7 fL (80-100); RDW Coefficient of Variation 21.5 % (11.5-14.5); RDW Standard Deviation 66.6 fL (36.4-46.3); Red Blood Count 4.12 M/uL (4.2-5.4)
[2019-10-15 05:27] LABS: Mean Platelet Volume 9.2 fL (7.4-10.4); Platelet Count 96 K/uL (130-400)
[2019-10-15 05:46] LABS: BUN Creatinine Ratio 20.1 (10-20); Calcium 8.4 mg/dl (8.5-10.1); Creatinine Clr Calc Pharmacy 58.9 ml/min; Est GFR (Non-African American) 61.3
[2019-10-15 06:00] LABS: Estimated Average Glucose 140 mg/dl; Hemoglobin A1C 6.5 % (4.5-5.6)
[2019-10-15 06:25] LABS: Anisocytosis Present; Basophils # (auto) 0.02 K/uL (0-0.2); Basophils % (auto) 0.7 %; Eosinophils # (auto) 0.12 K/uL (0-0.5); Giant Platelets 2+; Lymphocytes # (auto) 0.78 K/uL (1.2-3.4); Monocytes # (auto) 0.37 K/uL (0.11-0.59); Monocytes % (auto) 12.3 %; Neutrophils # (auto) 1.71 K/uL (1.4-6.5)
[2019-10-15] MEDS: INSULIN ASPART 100 UNITS/ML 3 ML PEN SC SCH ×4 (08:30→20:47)
[2019-10-15] MEDS: MULTIVITAMIN TAB PO SCH (08:30)
[2019-10-15] MEDS: CHOLECALCIFEROL 1,000 UNITS 25 MCG TAB PO SCH (08:30)
[2019-10-15] MEDS: TOCOPHERYL, DL-ALPHA 400 UNITS CAP PO SCH (08:30)
[2019-10-15] MEDS: PANTOprazole 40 MG TAB PO SCH ×2 (08:30→20:35)
[2019-10-15] MEDS ORDERED: CEFAZOLIN 2000MG 2,000 MG/15 ML SYR IV ONE (08:59)
[2019-10-15] MEDS ORDERED: NON-FORMULARY MEDICATION (Cholecalciferol (Vitamin D3) [Vitamin D3] 2,000 UNITS) PO SCH (09:00)
[2019-10-15] MEDS ORDERED: MIDAZOLAM HCL 1 MG/ML 2ML VIAL ONE (09:04)
[2019-10-15] MEDS ORDERED: fentaNYL citrate 100 MCG/2 ML VIAL ONE (09:04)
[2019-10-15] MEDS ORDERED: LIDOCAINE HCL 1% 20 ML VIAL ONE (09:06)
--- NOTE | 2019-10-15 09:19 | Consultation ---
Date of Consultation October 15, 2019 Assessment & Plan (1) DVT of popliteal vein: Pt with acute-appearing DVT of RLE and PE noted on CTA. ALso with active GI bleeding. Pt discussed wtih Dr Manley, recommends pt undergo IVC filter insertion today. Pt is agreeable. Discussed need for IVC filter with her granddaughter, Iram, at pt request. Patient was seen, examined, and chart reviewed. Agree with exam and treatment plan of the Vascular PA. Patient for filter insertion today. I have discussed the risks options and benefits of the procedure with the patient. The patient understands the risks options and benefits and agrees to the procedure. History of Present Illness Reason for Consultation: DVT/PE, GI bleeding Attending Physician: Viviana Ibarra MD History of Present Illness 74 yo f with hx of esophageal varics, DMII, mitral regurg, ROSALES, HTN, pituitary adenoma, MGUS, lumbar spinal stenosis, admitted with GI bleed and PE, seen in consultation today for eval for possible IVC filter insertion. Pt also noted to have acute RLE pop DVT. Pt denies BLAKE, fever, chest pain, SOB, abd pain, N/V, rest pain, claudication, worse edema or LE pain than usual, other complaints. No hx of DVT/PE in past. Allergies Allergy/AdvReac Type Severity Reaction Status Date / Time No Known Drug Allergies Allergy Unknown Verified 10/14/19 11:45 Home Medications Home Medications Medication Instructions Recorded Confirmed Type cholecalciferol (vitamin D3) 2,000 unit PO QAM 07/01/18 10/14/19 History [Vitamin D3] docusate sodium 100 mg PO BID PRN 07/01/18 10/14/19 History pantoprazole 40 mg tablet,delayed 40 mg PO BID #60 tab 03/20/19 10/14/19 Rx release glimepiride 2 mg tablet See Rx Instructions PO .COMPLEX 06/17/19 10/14/19 Rx #90 tab metformin 500 mg tablet 1,000 mg PO BID #360 tab 09/23/19 10/14/19 Rx atorvastatin 10 mg PO HS 10/14/19 10/14/19 History lisinopril 10 mg PO HS 10/14/19 10/14/19 History multivitamin 1 tab PO QAM 10/14/19 10/14/19 History vitamin E 0 unit PO QAM 10/14/19 10/14/19 History Patient History Medical History (Updated 10/15/19 @ 09:18 by Tiffanie Jenkins PA-C) 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 Chronic back pain 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 to alcohol Diabetes mellitus, type 2 DVT of popliteal vein Esophageal varices (Inactive) Esophageal varices determined by endoscopy GERD (gastroesophageal reflux disease) GI bleed Hyperlipidemia Hypertension (Chronic) Migraine Osteoarthritis Pancytopenia Thickened endometrium Surgical History History of bilateral breast reduction surgery History of bilateral cataract extraction History of carpal tunnel release of both wrists History of section x3 History of cholecystectomy History of colonoscopy History of dilatation and curettage History of esophagogastroduodenoscopy (EGD) History of lumbar spinal fusion hardware in place History of tonsillectomy History of tooth extraction all teeth History of total left knee replacement (TKR) History of total right knee replacement (TKR) Family History Mother Family history of diabetes mellitus Brother Family history of diabetes mellitus 3 brothers Colorectal cancer Myocardial infarction x 2 Father Myocardial infarction Denies family history of Ovarian cancer Prostate cancer Breast cancer Social History Preferred Language: [place] Communication Ability: Effective Insurance Checker Required: No Beliefs That Will Affect Care: None marital status: Current Living Situation: Family Current Living Situation Comment: Lives in grandson's apartment Other Information That Helps Us Care for You: No Feels Safe at Home: Yes Safety Concerns: Feels Safe At This Time Smoking Status: Former smoker Do You Dip or Chew Tobacco: No ; Second Hand Exposure: No ; Tobacco Cessation Education Requested by Patient: No Hx Alcohol Use: No Hx Substance Use: No Dental Care, Regularly: No Seatbelt Use: always Review of Systems Review of Systems: All systems reviewed & are unremarkable except as noted in HPI & below Physical Exam Constitutional: WD/WN, vitals as above + morbidly obese, healthy appearing and cooperative; not in distress and not combative Eyes: PERRL, conjunctivae normal, anicteric sclerae ENMT: external ear and nose normal, oropharynx normal Ears: no hearing impairment Neck: trachea midline, no thyromegaly Respiratory: normal respiratory effort, lungs clear to auscultation Auscultation: + diminished lung sounds Cardiovascular: Rate/Rhythm: regular rate and regular rhythm Vessels: femoral pulses present, posterior tibial pulses present, dorsalis pedis pulses present, brachial pulses present and radial pulses present; + abnormal peripheral pulses Extremities: normal capillary refill and + edema (+1 pitting BLE) Gastrointestinal (Abdomen): normal bowel sounds, soft, nontender, no hepatosplenomegaly Musculoskeletal: no cyanosis or clubbing, extremities motor strength 5/5 Skin: no rashes, warm and dry Neurologic: moves all extremities; no focal motor deficits and not confused Psychiatric: Orientation: alert and oriented x 3 Affect: + anxious affect Results & Data Vital Signs (Past 12 Hours) Vital Signs Temp Pulse Pulse Resp BP Pulse Ox 10/15/19 04:13 36.4 C L 70 20 129/70 94 10/15/19 00:12 72 10/14/19 23:21 36.4 C L 67 20 152/82 H 94
--- NOTE | 2019-10-15 10:31 | Operative Report ---
Post Operative Report Pre & Post Diagnosis Operation Date: 10/14/19 13:40 Pre-Op Diagnosis: Rectal bleeding Post-Op Diagnosis: Rectal bleeding, Esophagogastrooduodenoscopy negative Operation Date: 10/15/19 10:20 Pre-Op Diagnosis: deep vein thrombosis right lower extremity, pulmonary emboli, gastrointestinal bleed Post-Op Diagnosis: deep vein thrombosis right lower extremity, pulmonary emboli, gastrointestinal bleed I identified the patient and participated in the time-out.: Yes Procedure Operation Date: 10/14/19 13:40 Actual Procedures p Esophagogastroduodenoscopy - Tien Garcia Operation Date: 10/15/19 10:20 Actual Procedures p Insertion Of Vena Cava Filter, Right Femoral Approach, Ultrasound Localization Of Right Femoral Vein, Fluoroscopy For Positioning(Right) - Lalo Manley MD Surgeon Lalo Manley MD Speeder Tender None Estimated Blood Loss 0 Findings Consistent with Post-Op Diagnosis Specimens None Anesthesia Type Local Complications none Disposition Accompanied Patient To Recovery: No Disposition: PCU Indications This is a 74-year-old female who was admitted with pulmonary emboli with DVT of the left leg and GI bleeding. Due to the inability to anticoagulate the patient from the GI bleeding recommended a vena cava filter. I have discussed the risks options and benefits of the procedure with the patient. The patient understands the risks options and benefits and agrees to the procedure. Description of Procedure The patient was brought to the angio suite and placed in the supine position. The patient was identified and a timeout performed. The right groin was prepped and draped in the usual fashion. The right common femoral vein was located with ultrasound. It was patent, compressed easily, and had no filling defects. The vein was then punctured under ultrasound visualization. A guidewire was then pa ssed centrally into the inferior vena cava under fluoroscopic guidance. The puncture site was then dilated and the filter sheath inserted. It was passed to the infra renal vena cava. A venacavagram was done which showed no cava clot and an acceptable size. The renal veins were identified. The filter was then passed through the sheath and deployed in the infra renal vena cava. The filter did have a 25 to 30 degree tilt. This was a satisfactory positioning of the filter, the sheath was removed. Pressure was applied to the puncture site. Adequate hemostasis was obtained and a sterile dressing was applied. The patient left the operation room in satisfactory condition and tolerated the procedure well. All needle and sponge counts were correct at the end of the procedure. I attest to the content of the Intraoperative Record and any orders documented therein. Any exceptions are noted below.
[2019-10-15] MEDS ORDERED: VISIPAQUE IV PRN (10:34)
--- NOTE | 2019-10-15 10:40 | XCELERA ---
[id number]
[2019-10-15 12:22] LABS: Hematocrit (blood only) 37.9 % (37-47); Hemoglobin 11.7 g/dL (12.0-16.0); Mean Corpuscular Hemoglobin 26.7 pg (25-34); Mean Corpuscular Hgb Conc 30.9 g/dL (32-36); Mean Corpuscular Volume 86.3 fL (80-100); RDW Coefficient of Variation 21.7 % (11.5-14.5); RDW Standard Deviation 67.8 fL (36.4-46.3); Red Blood Count 4.39 M/uL (4.2-5.4); White Blood Count 3.24 K/uL (4.8-10.8)
[2019-10-15 12:48] LABS: Mean Platelet Volume 9.7 fL (7.4-10.4); Platelet Count 98 K/uL (130-400)
--- NOTE | 2019-10-15 12:58 | Hospitalist Progress Note ---
Date of Service October 15, 2019 Assessment & Plan (1) Hematochezia: Patient with history of esophageal varices requiring banding Patient presented with new acute GI loss/BRBPR Hemoglobin 12 on admission and now fairly stable at 11.7 No further bleeding EGD normal No need for colonoscopy Likely acute diverticular bleed which is now resolving-had some old melena come out later in the day today Hgb remains stable, no transfusion needed -remain off all blood thinners at this time -follow CBC in AM and observe for recurrent bleeding (2) Right pulmonary embolus: Right lower lobe segmental artery Incidental finding on abdominal CT and then confirmed on CTA Chest. No other PEs noted Dopplers with RLE small acute popliteal vein DVT and left popliteal vein with scarring Troponin negative, She is completely asymptomatic with this-no hypoxia, no tachycardia, no tachypnea ECHO with unchanged mod-severe dilation of RV which was present on ECHO from years ago, normal RV function Patient denies previous history of DVT or pulmonary embolus She is fairly sedentary Also with endometrial thickening on CT scan of the abdomen/pelvis-question if has endometrial cancer? Now s/p IVC filter on 10/14 -hold off on anticoagulation at this time -needs Vascular f/u in 3 months to assess for removing IVC filter -if found to have malignancy on endometrial bx or otherwise, would recommend anticoagulation with Xarelto or Lovenox when safe from a GI perspective for minimum 3 months or until malignancy is resolved (3) Hypertension: Blood pressures significantly elevated upon admission with hypertensive urgency Home meds include lisinopril 10 mg p.o. at bedtime Patient states that whenever she is in the hospital the office the blood pressure goes up Now much improved -Continue to follow (4) Diabetes mellitus with peripheral vascular disease: Glucose well controlled HgbA1C 6.5% here -holding home metformin and glimiperide -continue SSI (5) Anemia: Has a history of chronic iron deficiency anemia-has been scoped above and below multiple times in the past and does receive IV iron infusions with hematology as recently as last week Currently hemoglobin is 11.7 down from 12.0 on admission -CBC in AM (6) Hypercholesterolemia: continue statin (7) MGUS (monoclonal gammopathy of unknown significance): Follows with Heme/Onc as outpt (8) Hypomagnesemia: replaced and normalized (9) History of cirrhosis of liver: Secondary to GREGORY Follows with GI (10) Pancytopenia: Secondary to Gregory -Follow CBC (11) 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: Noted on exam Echocardiogram from 2014 with severely dilated RV with normal RV function, and some mild valvular disease -ECHO here with mild (12) Thickened endometrium: With endometrial lining thickened at 1.[address] scan No vaginal bleeding since menopause as per patient This could be an endometrial cancer until proven otherwise-could explain etiology of PE -Check pelvic ultrasound transvaginal tomorrow (delayed today due to IVC filter placement and recovery from such) Her DIRECTOR ECONOMIC is Dr. Farias if consult needed -discussed with pt and her grandson on phone (13) Acute DVT (deep venous thrombosis): Right popliteal vein as above (14) Esophageal varices determined by endoscopy: In the past, status post banding None on EGD here (15) DVT prophylaxis: No anticoagulation given GI bleeding, avoid SCDs or ITZ hose due to DVT Now with IVC filter in place Disposition-improved, stable for transfer to medical floor, likely dc to home tomorrow if no further bleeding PT/OT consults placed Admission and Anticipated Discharge Date Admission Date: October 14, 2019 Anticipated date of discharge: 10/16/19 Subjective Feeling very well today. No further BMs since yesterday and no rectal bleeding. No abd pain. Had IVC filter placed this AM and has some pain in right groin site. No nausea or vomiting and is tolerating po. Denies CP or SOB. Discussed her case with Vascular Surgery PA and with GI. Tele with NSR rates 60-70s Review of Systems Review of Systems: All systems reviewed & are unremarkable except as noted in HPI & below Physical Exam Constitutional: WD/WN, vitals as above + morbidly obese Eyes: + anicteric sclerae Neck: trachea midline, no thyromegaly Respiratory: normal respiratory effort, lungs clear to auscultation Cardiovascular: RRR, no murmur, no edema Chest (Breasts): Chest: normal inspection of chest Gastrointestinal (Abdomen): normal bowel sounds, soft, nontender, no hepatosplenomegaly Inspection/Auscultation: + abdomen abnormal to inspection (right inguinal region with dressing in place c/d/i) Musculoskeletal: Extremities: extremities normal to inspection; no cyanosis and no clubbing Skin: no rashes, warm and dry Neurologic: moves all extremities and awake; no focal motor deficits Psychiatric: A+Ox3, euthymic affect Lymphatic: no lymphedema Results & Data ([facility]) Vital Signs (Past 12 Hours) Vital Signs Temp Pulse Pulse Resp BP BP Pulse Ox 10/15/19 11:42 36.9 C 69 18 146/78 H 93 10/15/19 11:03 36.5 C 70 16 119/63 92 10/15/19 10:48 36.8 C 76 18 165/75 H 94 10/15/19 10:31 77 16 193/88 H 96 10/15/19 10:30 81 20 196/88 H 95 10/15/19 10:25 82 22 204/88 H 100 10/15/19 10:20 87 23 222/110 H 100 10/15/19 10:15 85 27 H 209/98 H 100 10/15/19 10:10 84 18 205/98 H 100 10/15/19 10:07 85 21 225/102 H 100 10/15/19 10:02 98 H 16 161/123 H 100 10/15/19 09:38 36.7 C 70 16 180/77 H 97 10/15/19 04:13 36.4 C L 70 20 129/70 94 Laboratory Results 10/15/19 10/15/19 10/15/19 Range/Units 20:18 16:52 16:35 WBC (4.8-10.8) K/uL RBC (4.2-5.4) M/uL Hgb (12.0-16.0) g/dL Hct (37-47) % MCV (80-100) fL MCH (25-34) pg MCHC (32-36) g/dL RDW Std Deviation (36.4-46.3) fL RDW Coeff of Leah (11.5-14.5) % Plt Count (130-400) K/uL MPV (7.4-10.4) fL Immature Gran % (Auto) % Neut % (Auto) % Lymph % (Auto) % [place] % (Auto) % Eos % (Auto) % Baso % (Auto) % Immature Gran # (Auto) (0.00-0.02) K/uL Neut # (Auto) (1.4-6.5) K/uL Lymph # (Auto) (1.2-3.4) K/uL [place] # (Auto) (0.11-0.59) K/uL Eos # (Auto) (0-0.5) K/uL Baso # (Auto) (0-0.2) K/uL Giant Platelets Anisocytosis Sodium (136-145) mmol/L Potassium (3.5-5.1) mmol/L Chloride (98-107) mmol/L Carbon Dioxide (21-32) mmol/L Anion Gap (3-11) BUN (7-18) mg/dl Creatinine (0.6-1.2) mg/dl Est Cr Clr Drug Dosing ml/min Est GFR ( Amer) Est GFR (Non-Af Amer) BUN/Creatinine Ratio (10-20) Glucose (70-99) mg/dl POC Glucose 132 H 126 H (70-99) mg/dl Estimat Average Glucose mg/dl Hemoglobin A1c (4.5-5.6) % Calcium (8.5-10.1) mg/dl Stool Occult Bld Scrn Positive A (Negative) 10/15/19 10/15/19 10/15/19 Range/Units 12:12 11:39 07:38 WBC 3.24 L (4.8-10.8) K/uL RBC 4.39 (4.2-5.4) M/uL Hgb 11.7 L (12.0-16.0) g/dL Hct 37.9 (37-47) % MCV 86.3 (80-100) fL MCH 26.7 (25-34) pg MCHC 30.9 L (32-36) g/dL RDW Std Deviation 67.8 H (36.4-46.3) fL RDW Coeff of Leah 21.7 H (11.5-14.5) % Plt Count 98 L (130-400) K/uL MPV 9.7 (7.4-10.4) fL Immature Gran % (Auto) % Neut % (Auto) % Lymph % (Auto) % [place] % (Auto) % Eos % (Auto) % Baso % (Auto) % Immature Gran # (Auto) (0.00-0.02) K/uL Neut # (Auto) (1.4-6.5) K/uL Lymph # (Auto) (1.2-3.4) K/uL [place] # (Auto) (0.11-0.59) K/uL Eos # (Auto) (0-0.5) K/uL Baso # (Auto) (0-0.2) K/uL Giant Platelets Anisocytosis Sodium (136-145) mmol/L Potassium (3.5-5.1) mmol/L Chloride (98-107) mmol/L Carbon Dioxide (21-32) mmol/L Anion Gap (3-11) BUN (7-18) mg/dl Creatinine (0.6-1.2) mg/dl Est Cr Clr Drug Dosing ml/min Est GFR ( Amer) Est GFR (Non-Af Amer) BUN/Creatinine Ratio (10-20) Glucose (70-99) mg/dl POC Glucose 185 H 107 H (70-99) mg/dl Estimat Average Glucose mg/dl Hemoglobin A1c (4.5-5.6) % Calcium (8.5-10.1) mg/dl Stool Occult Bld Scrn (Negative) 10/15/19 10/15/19 10/15/19 Range/Units 05:06 05:06 05:06 WBC 3.00 L (4.8-10.8) K/uL RBC 4.12 L (4.2-5.4) M/uL Hgb 10.9 L (12.0-16.0) g/dL Hct 35.3 L (37-47) % MCV 85.7 (80-100) fL MCH 26.5 (25-34) pg MCHC 30.9 L (32-36) g/dL RDW Std Deviation 66.6 H (36.4-46.3) fL RDW Coeff of Leah 21.5 H (11.5-14.5) % Plt Count 96 L (130-400) K/uL MPV 9.2 (7.4-10.4) fL Immature Gran % (Auto) 0.0 % Neut % (Auto) 57.0 % Lymph % (Auto) 26.0 % [place] % (Auto) 12.3 % Eos % (Auto) 4.0 % Baso % (Auto) 0.7 % Immature Gran # (Auto) 0.00 (0.00-0.02) K/uL Neut # (Auto) 1.71 (1.4-6.5) K/uL Lymph # (Auto) 0.78 L (1.2-3.4) K/uL [place] # (Auto) 0.37 (0.11-0.59) K/uL Eos # (Auto) 0.12 (0-0.5) K/uL Baso # (Auto) 0.02 (0-0.2) K/uL Giant Platelets 2+ Anisocytosis Present Sodium 140 (136-145) mmol/L Potassium 4.0 (3.5-5.1) mmol/L Chloride 107 (98-107) mmol/L Carbon Dioxide 29 (21-32) mmol/L Anion Gap 4.0 (3-11) BUN 18 (7-18) mg/dl Creatinine 0.91 (0.6-1.2) mg/dl Est Cr Clr Drug Dosing 58.9 ml/min Est GFR ( Amer) 71.0 Est GFR (Non-Af Amer) 61.3 BUN/Creatinine Ratio 20.1 H (10-20) Glucose 112 H (70-99) mg/dl POC Glucose (70-99) mg/dl Estimat Average Glucose 140 mg/dl Hemoglobin A1c 6.5 H (4.5-5.6) % Calcium 8.4 L (8.5-10.1) mg/dl Stool Occult Bld Scrn (Negative) PG Care Time/CCT Total # of Minutes Spent Total Time Spent with Patient: Total time spent is greater than 50% in coordination of care (as documented) at patient's floor/unit and/or counseling patient: Coding Level of Care Code 82526 Subseq Hosp Care Lvl 3 Diagnoses Hematochezia K92.1 Right pulmonary embolus I26.99 Hypertension I10 Diabetes mellitus with peripheral vascular disease E11.51 Anemia D64.9 Hypercholesterolemia E78.00 MGUS (monoclonal gammopathy of unknown significance) D47.2 Hypomagnesemia E83.42 History of cirrhosis of liver Z87.19 Pancytopenia D61.818 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 R01.1 Thickened endometrium R93.89 Acute DVT (deep venous thrombosis) I82.409 Esophageal varices determined by endoscopy I85.00 DVT prophylaxis Z29.9
[2019-10-15] MEDS ORDERED: DOCUSATE SODIUM 100 MG CAP PO PRN (13:39)
--- NOTE | 2019-10-15 15:43 | Gastroenterology Progress Note ---
Date of Service October 15, 2019 Assessment & Plan (1) Hematochezia: Resolved at present. Probably diverticular from colon. EGD negative for source. acute blood loss anemia--stable. Admission and Anticipated Discharge Date Admission Date: October 14, 2019 Subjective CC f/u GI bleeding HPI No stools overnight or today. No abd pain. Physical Exam Constitutional: WD/WN, vitals as above Respiratory: normal respiratory effort, lungs clear to auscultation Cardiovascular: RRR, no murmur, no edema Gastrointestinal (Abdomen): Inspection/Auscultation: abdomen normal to inspect ion pos bs, soft, no guarding nor rebound Results & Data ([facility]) Vital Signs (Past 12 Hours) Vital Signs Temp Pulse Pulse Resp BP BP Pulse Ox 10/15/19 15:22 36.4 C L 68 18 155/88 H 95 10/15/19 11:42 36.9 C 69 18 146/78 H 93 10/15/19 11:03 36.5 C 70 16 119/63 92 10/15/19 10:48 36.8 C 76 18 165/75 H 94 10/15/19 10:31 77 16 193/88 H 96 10/15/19 10:30 81 20 196/88 H 95 10/15/19 10:25 82 22 204/88 H 100 10/15/19 10:20 87 23 222/110 H 100 10/15/19 10:15 85 27 H 209/98 H 100 10/15/19 10:10 84 18 205/98 H 100 10/15/19 10:07 85 21 225/102 H 100 10/15/19 10:02 98 H 16 161/123 H 100 10/15/19 09:38 36.7 C 70 16 180/77 H 97 10/15/19 04:13 36.4 C L 70 20 129/70 94
[2019-10-15] MEDS: lisinopriL 10 MG TAB PO SCH (15:49)
[2019-10-15] MEDS: ATORVASTATIN 10 MG TAB PO SCH (20:35)
[2019-10-15] MEDS ORDERED: MICONAZOLE NITRATE POWDER 43 GM EXT PRN (20:50)
[2019-10-16 05:47] LABS: Hematocrit (blood only) 35.1 % (37-47); Hemoglobin 10.9 g/dL (12.0-16.0); Mean Corpuscular Hemoglobin 26.8 pg (25-34); Mean Corpuscular Hgb Conc 31.1 g/dL (32-36); Mean Corpuscular Volume 86.2 fL (80-100); RDW Coefficient of Variation 21.9 % (11.5-14.5); RDW Standard Deviation 68.8 fL (36.4-46.3); Red Blood Count 4.07 M/uL (4.2-5.4)
[2019-10-16 06:01] LABS: Mean Platelet Volume 10.4 fL (7.4-10.4); Platelet Count 94 K/uL (130-400)
[2019-10-16 06:21] LABS: Anisocytosis Present; Basophils # (auto) 0.01 K/uL (0-0.2); Basophils % (auto) 0.4 %; Eosinophils # (auto) 0.14 K/uL (0-0.5); Giant Platelets 1+; Lymphocytes # (auto) 0.74 K/uL (1.2-3.4); Lymphocytes % (auto) 26.4 %; Monocytes # (auto) 0.42 K/uL (0.11-0.59); Neutrophils # (auto) 1.49 K/uL (1.4-6.5); Neutrophils % (auto) 53.2 %
[2019-10-16 06:23] LABS: BUN Creatinine Ratio 21.3 (10-20); Calcium 8.4 mg/dl (8.5-10.1); Creatinine Clr Calc Pharmacy 44.6 ml/min; Est GFR (African American) 51.4; Est GFR (Non-African American) 44.3; Magnesium 1.3 mg/dl (1.8-2.4); Potassium 4.1 mmol/L (3.5-5.1)
[2019-10-16] MEDS: PANTOprazole 40 MG TAB PO SCH (07:28)
[2019-10-16] MEDS: TOCOPHERYL, DL-ALPHA 400 UNITS CAP PO SCH (07:28)
[2019-10-16] MEDS: MULTIVITAMIN TAB PO SCH (07:28)
[2019-10-16] MEDS: CHOLECALCIFEROL 1,000 UNITS 25 MCG TAB PO SCH (07:28)
[2019-10-16] MEDS: INSULIN ASPART 100 UNITS/ML 3 ML PEN SC SCH ×2 (08:27→11:52)
[2019-10-16] MEDS: MAGNESIUM SULFATE / D5W 1 GM/100 ML BAG IV SCH ×2 (08:53→11:08)
[2019-10-16] MEDS ORDERED: FAMOTIDINE 20 MG TAB PO SCH (09:00)
[2019-10-16] MEDS ORDERED: MAGNESIUM CHLORIDE 64MG DELAYED REL TAB PO SCH (09:00)
--- NOTE | 2019-10-16 14:17 | Progress Notes ---
DATE: 10/16/2019 SUBJECTIVE: The patient is now postop day 2 for placement of inferior vena cava filter for right leg DVT in the femoral vein and pulmonary embolism. Prior to that, she had an EGD to evaluate her rectal bleeding and there were no bleeding sites found in the upper digestive tract and there were no obvious esophageal varices present having been obliterated by banding in the past. The patient has had no further active bleeding since arrival in the hospital and had a little bit of old blood passing yesterday. Her hemoglobin is stable at 10.9 today. PHYSICAL EXAMINATION: GENERAL: The patient appears in no acute distress. VITAL SIGNS: Blood pressure is 146/78, pulse 65, temperature is 36.5, room air saturation 94%. IMPRESSION: The patient appears to have had a diverticular bleed that has stopped. She has had an inferior vena cava filter placed because of a pulmonary embolism and the risk of placing her on anticoagulants in the setting of acute bleeding. At this point, the patient is doing well and will probably be ready for discharge soon. Please contact if any further GI input is needed.
--- NOTE | 2019-10-16 15:23 | Ultrasound Report ---
PELVIC ULTRASOUND CLINICAL HISTORY: Endometrial thickening. COMPARISON STUDY: CT of the abdomen and pelvis October 14, 2019. TECHNIQUE: Transabdominal and transvaginal sonography of the pelvis was performed. FINDINGS: Uterus measures 10.4 x 4.9 x 3.6 cm. A small amount of fluid within the uterine cavity is n oted. The endometrium measures 6 mm in thickness when excluding the fluid. Neither ovary was visualiz ed. No adnexal mass was noted. There was no free fluid. Transvaginal portion of this exam was mildly compromised given suboptimal penetration. IMPRESSION: 1. Small amount of fluid within uterine cavity with slightly thickened endometrium, measuring 6 mm, i n a postmenopausal patient. These findings are not highly suspicious for neoplasm, particularly in th e absence of postmenopausal bleeding, however, gynecologic consultation is suggested. 2. Nonvisualization of the ovaries. ACT 112: Negative or not required by law. Electronically signed by: Eris Friedman M.D. 10/16/2019 3:21 PM
[2019-10-16] MEDS: lisinopriL 10 MG TAB PO SCH (16:16)
--- NOTE | 2019-10-16 16:46 | Discharge Summary ---
Date of Service October 16, 2019 Admission HPI Per Admitting Provider Attending: Dr. Viviana bIarra This is a 74-year-old female with a history of Rothman, esophageal varices, diabetes mellitus type 2, hyperlipidemia, and morbid obesity. The patient awoke this morning with 2 bouts of bloody stool which was bright red in color. She has very mild abdominal pain. She denies any rectal pain. The patient presented to the emergency department for further evaluation and had a another bout of bright red bloody stool which she reports as being almost completely blood. The patient's hemoglobin has remained steady at 12.3. She also is hemodynamically stable and in fact has hypertensive urgency at the time of my visit. Blood pressure currently is being managed by Dr. Chandler. Patient denies any headache, abdominal pain, rectal pain, chest pain, tightness, shortness of breath. Principal Diagnosis GI Bleed, likely diverticular Acute DVT/PE, s/p IVC Filter Discharge Exam Constitutional WD/WN, vitals as above + morbidly obese Eyes + anicteric sclerae Neck trachea midline, no thyromegaly Respiratory normal respiratory effort, lungs clear to auscultation Cardiovascular RRR, no murmur, no edema Chest (Breasts) Chest: normal inspection of chest Gastrointestinal (Abdomen) normal bowel sounds, soft, nontender, no hepatosplenomegaly Inspection/Auscultation: + abdomen abnormal to inspection (right inguinal region with dressing in place c/d/i) Musculoskeletal Extremities: extremities normal to inspection; no cyanosis and no clubbing Skin no rashes, warm and dry Neurologic moves all extremities and awake; no focal motor deficits Psychiatric A+Ox3, euthymic affect Lymphatic no lymphedema Discharge Data Allergies Allergy/AdvReac Type Severity Reaction Status Date / Time No Known Drug Allergies Allergy Unknown Verified 10/14/19 11:45 Consultations 10/14/19 13:50 ED Decision to Admit Stat 10/14/19 16:23 Consult Gastroenterology Routine 10/14/19 21:30 Consult Vascular Surgery Routine Procedures Performed Operation Date: 10/14/19 13:40 Actual Procedures p Esophagogastroduodenoscopy - Tien Garcia Operation Date: 10/15/19 10:20 Actual Procedures p Insertion Of Vena Cava Filter, Right Femoral Approach, Ultrasound Localization Of Right Femoral Vein, Fluoroscopy For Positioning(Right) - Lalo Manley MD Ordered Studies 10/14/19 11:06 CT abd pelvis IV con only Stat 10/14/19 12:25 CT angio chest PE protocol Stat 10/14/19 16:23 US venous doppler LE BI Urgent 10/15/19 09:20 EV IVC filter placement Routine 10/16/19 12:16 US pelvic complete Urgent US transvaginal Urgent CXR ECHO Hospital Course (1) Hematochezia: Patient with history of esophageal varices requiring banding Patient presented with new acute GI loss/BRBPR Hemoglobin 12 on admission, had slight drop and now continues to be stable at 10.9 on day of discharge No further bleeding and stools are now brown EGD normal No need for colonoscopy as per GI Likely acute diverticular bleed which is now resolved Hgb remains stable, no transfusion needed -remain off all blood thinners at this time -follow CBC as outpt in 1 week (2) Right pulmonary embolus: Right lower lobe segmental artery Incidental finding on abdominal CT and then confirmed on CTA Chest. No other PEs noted Dopplers with RLE small acute popliteal vein DVT and left popliteal vein with scarring Troponin negative, is hemodynamically stable She is completely asymptomatic with this-no hypoxia, no tachycardia, no tachypnea ECHO with unchanged mod-severe dilation of RV which was present on ECHO from years ago, normal RV function Patient denies previous history of DVT or pulmonary embolus She is fairly sedentary Also with endometrial thickening on CT scan of the abdomen/pelvis-question if has endometrial cancer? However pelvic US shows normal endometrial lining but with fluid in uterus--> f/u with FUNERAL SERVICE LICENSEE as outpt Now s/p IVC filter on 10/14 -hold off on anticoagulation at this time -needs Vascular f/u in 3 months to assess for removing IVC filter -if found to have malignancy on endometrial bx or otherwise, would recommend anticoagulation with Xarelto or Lovenox when safe from a GI perspective for minimum 3 months or until malignancy is resolved (3) Hypertension: Blood pressures significantly elevated upon admission with hypertensive urgency-now much improved Home meds include lisinopril 10 mg p.o. at bedtime Patient states that whenever she is in the hospital the office the blood pres sure goes up Now much improved F/u as outpt (4) Diabetes mellitus with peripheral vascular disease: Glucose well controlled HgbA1C 6.5% here -continue home metformin and glimiperide (5) Anemia: Has a history of chronic iron deficiency anemia-has been scoped above and below multiple times in the past and does receive IV iron infusions with hematology as recently as last week Currently hemoglobin is 10.9 down from 12.0 on admission -follow CBC as outpt (6) Hypercholesterolemia: continue statin (7) MGUS (monoclonal gammopathy of unknown significance): Follows with Heme/Onc as outpt (8) Hypomagnesemia: replaced on several occasions -may be from PPI use no longer needs Protonix bid as has normal EGD -dc PPI and change to Pepcid 20mg po bid and can dc this at outpt GI follow up appointment if ok with GI -started po Magnesium bid -follow Mag levels as outpt (9) History of cirrhosis of liver: Secondary to ROTHMAN Follows with GI (10) Pancytopenia: Secondary to Rothman -Follow CBC (11) 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: Noted on exam Echocardiogram from 2013 with severely dilated RV with normal RV function, and some mild valvular disease -ECHO here with mild (12) Thickened endometrium: With endometrial lining thickened at 1.[address] scan No vaginal bleeding since menopause as per patient This could be an endometrial cancer until proven otherwise-could explain etiology of PE -Checked pelvic ultrasound transvaginal which shows normal endometrial thickness but with fluid in uterus-recommend [employer] outpatient follow up as discussed with pt and her grandson (13) Acute DVT (deep venous thrombosis): Right popliteal vein as above (14) Esophageal varices determined by endoscopy: In the past, status post banding None on EGD here (15) DVT prophylaxis: No anticoagulation given GI bleeding, avoid SCDs or ITZ hose due to DVT Now with IVC filter in place Disposition-stable for dc to home ambulated with PT/OT without problems Total Time Total Time Spent Total Time Spent (In Minutes): 45 min Total Time Includes: Examination of the Patient, Discharge Planning and Medication Reconciliation Discharge Plan Discharge Items Patient Disposition: Home - Self-Care Reason For Visit: GI BLEED,RLL PE Discharge Diagnosis: Gastrointestinal bleeding, Pulmonary embolism and Deep venous thrombosis (DVT), IVC Filter placement Abnormal endometrial lining Condition on Discharge: Good Activity: Resume your previous activity Bathing: No limitations Non-emergency contact: Primary Care Provider, Robotic Machine Operator and Beauty Counselor Call non-emergency contact if: you have any medication questions and your symptoms worsen Follow-up/Referrals: Bee De La Torre MD [Primary Care Provider] - (Follow up within 2-3 weeks) Tien Garcia [Physician] - (Follow up as already scheduled in October) Lalo Manley MD [Physician] - (Please call for follow up appointment in 3 months to discuss removal of IVC filter) Joel Farias MD [Physician] - (Please follow up within 2 weeks) Diet: Carb Consistent or DM2 Ambulatory Orders: Basic Metabolic Panel (Routine) Timeframe: 1 Week Location: Determined by Patient Ordered By: Viviana Ibarra Magnesium (Routine) Timeframe: 1 Week Location: Determined by Patient Ordered By: Viviana Ibarra Addtl Attending Provider Instructions: You were admitted with rectal bleeding which was likely secondary to a bleeding diverticulum. This resolved and your blood count stayed fairly stable after an initial slight drop. Your hemoglobin level was 10.9 on the day of discharge. You should NOT take any blood thinners like NSAIDs (motrin, ibuprofen, naproxen,etc.) or aspirin or others at this time. You were also found to have a small blood clot in your right lower lung and in your right leg behind the knee. The clots may come from your lack of significant activity (sitting around a lot). Blood clots can be from underlying cancers, and it is important to follow up with the Cutting Machine Operator to make sure your uterus abnormality is not due to a cancer. There was a question of thickening of the lining of your uterus (your womb) on the CT scan which was abnormal at 1.7cm, but the pelvic ultrasound showed the lining was not as thick and was in a normal range of 0.6cm. The ultrasound did show some fluid inside the uterus too and therefore you should follow up with your HYDROELECTRIC PLANT OPERATOR, Dr. Farias. Because of your recent GI bleeding, it was not felt to be safe for you to go on a blood thinner for your blood clots. Therefore an IVC Filter was placed to "catch" any blood clots to prevent them from traveling to the lung. You should follow up with the Vascular Surgeon, Dr. Manley, in 3 months to see if this filter can be removed. Please keep your follow up appointment with GI in October. Your Protonix was STOPPED and replaced with Pepcid instead. This is because you have low magnesium levels which can be caused by medications like Protonix. Discuss with Dr. Garcia whether you can stop the Pepcid when you see him. Please take magnesium by mouth twice a day-this can be bought at the drug store. Please have your magnesium levels checked again in about one week. Please follow up with your PCP within 2-3 weeks. Pending Studies at Discharge: No Stand-Alone Forms: My [facility] Medications and DC Order Prescriptions: New magnesium chloride [Mag 64] 64 mg Tablet,Delayed Release (Dr/Ec) 64 mg PO BID Qty: 60 RF: 0 Desenex 2 % Powder 1 applic EXT PRN PRN (Reason: rash in skin folds) Qty: 43 RF: 0 famotidine 20 mg Tablet 20 mg PO BID Qty: 60 RF: 0 Continued glimepiride 2 mg tablet See Rx Instructions PO .COMPLEX Qty: 90 RF: 1 metformin 500 mg tablet 1,000 mg PO BID Qty: 360 RF: 1 docusate sodium 100 mg Capsule 100 mg PO BID PRN (Reason: Constipation) RF: 0 cholecalciferol (vitamin D3) [Vitamin D3] 2,000 unit Capsule 2,000 unit PO QAM RF: 0 multivitamin Tablet 1 tab PO QAM RF: 0 vitamin E 400 unit Capsule 0 unit PO QAM RF: 0 atorvastatin 10 mg tablet 10 mg PO HS RF: 0 lisinopril 10 mg tablet 10 mg PO HS RF: 0 Discontinued pantoprazole 40 mg tablet,delayed release (DR/EC) 40 mg PO BID Qty: 60 RF: 5 Discharge Orders: Discharge Order (Routine); Ordered 10/16/19 Ordered By: Viviana Ibarra Admission Data Admit Date/Time: 10/14/19 15:49 Attending Provider: Viviana Ibarra Admit Provider: Viviana Ibarra Primary Care Provider: Bee De La Torre Other Providers: Tien Garcia ; Lalo Manley Other Interventions: Discharge Summary Assessment (RN) Last Done: 10/16/19 15:26 DC Date/Time DO NOT enter until pt leaves facility: 10/16/19 17:27 Coding Level of Care Code D/C Day Management >30 mins Diagnoses Hematochezia K92.1 Right pulmonary embolus I26.99 Hypertension I10 Diabetes mellitus with peripheral vascular disease E11.51 Anemia D64.9 Hypercholesterolemia E78.00 MGUS (monoclonal gammopathy of unknown significance) D47.2 Hypomagnesemia E83.42 History of cirrhosis of liver Z87.19 Pancytopenia D61.818 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 R01.1 Thickened endometrium R93.89 Acute DVT (deep venous thrombosis) I82.409 Esophageal varices determined by endoscopy I85.00 DVT prophylaxis Z29.9
== END 2019-10-16 17:27 | disposition home or self-care (01) | DRG 356 ==
LOC: ED 10:36 → OR 15:48 → 2W 15:49

== ENCOUNTER 2021-10-02 21:35 | Observation (INO) ==
[2021-10-02] MEDS ORDERED: SODIUM CHLORIDE 0.9% 1000ML 500 ML IV ONE (22:58)
[2021-10-02] MEDS ORDERED: MoRPHine SULFATE 4 MG/ML 1 ML CARP\\VIAL IV STA (23:00)
[2021-10-02 23:02] LABS: Hematocrit (blood only) 40.6 % (37-47); Hemoglobin 13.7 g/dL (12.0-16.0); Mean Corpuscular Hemoglobin 31.6 pg (25-34); Mean Corpuscular Hgb Conc 33.7 g/dL (32-36); Mean Corpuscular Volume 93.5 fL (80-100); RDW Coefficient of Variation 14.2 % (11.5-14.5); RDW Standard Deviation 48.6 fL (36.4-46.3); Red Blood Count 4.34 M/uL (4.2-5.4); White Blood Count 9.96 K/uL (4.8-10.8)
[2021-10-02 23:08] LABS: Troponin I 0.04 ng/ml (0-0.04)
[2021-10-02 23:10] LABS: Albumin Globulin Ratio 0.7 (0.9-2); BUN Creatinine Ratio 29.8 (10-20); Bilirubin,Total 0.8 mg/dl (0.2-1.0); Calcium 8.1 mg/dl (8.5-10.1); Creatinine Clr Calc Pharmacy 56.3 ml/min; Est GFR (African American) 67.8 ml/min; Est GFR (Non-African American) 58.5 ml/min; Globulin 4.1 gm/dl (2.5-4.0); Magnesium 1.1 mg/dl (1.7-2.4); Total Protein 7.1 gm/dl (6.0-8.3)
--- NOTE | 2021-10-02 23:11 | Emergency Department Note ---
History of Present Illness General Chief complaint: Swelling/Edema to Extremity Stated complaint: Edema Time Seen by Provider: 10/02/21 22:22 History of Present Illness Rosalind is a 75-year-old female that presents to the emergency department via EMS due to severe lower back pain. She states that the pain started a few days ago and has progressively gotten worse. She rates the pain as a 7/10 currently, but before her dose of Tylenol it was a 10/10. EMS was called as she was unable to walk and her son was unable to help her move. She states that the pain starts in her lower back and radiates down her legs bilaterally. She denies numbness, tingling, or loss of feeling down her legs. The pain is the same that she had before her back surgery several years ago. She denies any trauma associated with the pain. She denies loss of bowel or bladder function and denies saddle anesthesia. Additionally, she reports that she has a headache that had started a few hours ago. This feels similar to her headaches in the past. She denies blurry vision, double vision, lightheadedness, dizziness, nausea, vomiting. She admits to having a fever and chills but denies other URI symptoms. She denies chest pain, palpations, shortness of breath, difficulty breathing. Home Medications Medication Instructions Recorded Confirmed Type cholecalciferol (vitamin D3) 50 2,000 unit PO QAM 07/01/18 10/02/21 History mcg (2,000 unit) capsule (Vitamin D3) docusate sodium 100 mg capsule 100 mg PO BID PRN 07/01/18 10/02/21 History multivitamin 1 tab PO QAM 10/14/19 10/02/21 History vitamin E 400 unit capsule 400 unit PO QAM cap 08/14/20 10/02/21 History furosemide 40 mg tablet 40 mg PO DAILY PRN #30 tab 12/29/20 10/02/21 Rx magnesium chloride 71.5 mg 71.5 mg PO TID #270 tab 04/13/21 10/02/21 Rx (magnesium chloride) tablet,delayed release (Slow-Mag) atorvastatin 10 mg tablet 10 mg PO HS #90 tab 08/12/21 10/02/21 Rx glimepiride 1 mg tablet 1 mg PO BID #180 tab 08/12/21 10/02/21 Rx lisinopril 10 mg tablet 10 mg PO HS #90 tab 08/12/21 10/02/21 Rx metformin 500 mg tablet 500 mg PO QAM 10/02/21 10/02/21 History Allergies Allergy/AdvReac Type Severity Reaction Status Date / Time No Known Allergies Allergy Verified 10/02/21 22:16 Past Med/Surg History Medical History Acute DVT (deep venous thrombosis) 2019> no known cause > Filter to right groin 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 Chronic back pain 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 Diverticular hemorrhage resolved Esophageal varices determined by endoscopy GERD (gastroesophageal reflux disease) GI bleed none at present Hypertension Migraine Monoclonal gammopathy Obesity Osteoarthritis Pulmonary embolism 2019 > no known cause > Filter to right groin Vertigo Surgical History History of bilateral breast reduction surgery History of bilateral cataract extraction History of carpal tunnel release of both wrists History of section x3 History of colonoscopy History of dilatation and curettage History of esophagogastroduodenoscopy (EGD) History of laparoscopic cholecystectomy History of lumbar spinal fusion hardware in place History of tonsillectomy History of tooth extraction all teeth History of total left knee replacement (TKR) History of total right knee replacement (TKR) Family History Mother Family history of diabetes mellitus Brother Family history of diabetes mellitus 3 brothers Colorectal cancer Myocardial infarction x 2 Father Myocardial infarction Denies family history of Ovarian cancer Prostate cancer Breast cancer Social History Smoking Status: Never smoker Second Hand Exposure: Yes; Hx Alcohol Use: No Hx Substance Use: No Preferred Language: Djiboutian Communication Ability: Effective Rn Obgyn Required: No Beliefs That Will Affect Care: None marital status: / Current Living Situation: Family Current Living Situation Comment: Lives in grandson's apartment Feels Safe at Home: Yes Childhood Exposure to Second-Hand Smoke: Yes caffeine: Yes Dental Care, Regularly: No Physical Activity Frequency: Does not Exercise Seatbelt Use: always Sunscreen Use: No Assistive Devices: Denture - Upper, Denture - Lower, Glasses and Walker Review of Systems A total of 10 systems reviewed and were otherwise negative Physical Exam Vital Signs Vital Signs - 24 hr 10/02/21 21:47 10/02/21 23:29 10/02/21 23:42 Temperature 38.1 C H Temperature Source Oral Pulse Rate 89 Pulse Rate [Finger] 90 Pulse Rate from SpO2 Sensor Respiratory Rate 20 20 20 Blood Pressure 172/121 H Blood Pressure [Right Arm] 148/64 H Blood Pressure Mean 138 Blood Pressure Mean [Right Arm] 92 Blood Pressure Position [Right Arm] Sitting Pulse Oximetry 96 96 96 Oxygen Delivery Method Room Air Room Air Room Air Sepsis Recent Fever Within 48 Hours Yes Sepsis New/Unexplained Change in Mental Status N/A Sepsis Action Taken by Nursing No Action Required 10/03/21 03:00 10/03/21 03:52 10/03/21 04:02 Temperature Temperature Source Pulse Rate 75 70 70 Pulse Rate [Finger] Pulse Rate from SpO2 Sensor 76 70 69 Respiratory Rate 15 16 18 Blood Pressure 117/43 L 100/54 L 115/53 L Blood Pressure [Right Arm] Blood Pressure Mean 67 69 73 Blood Pressure Mean [Right Arm] Blood Pressure Position [Right Arm] Pulse Oximetry 91 95 96 Oxygen Delivery Method Room Air Room Air Room Air Sepsis Recent Fever Within 48 Hours Sepsis New/Unexplained Change in Mental Status Sepsis Action Taken by Nursing 10/03/21 04:07 Temperature 37.3 C Temperature Source Oral Pulse Rate Pulse Rate [Finger] Pulse Rate from SpO2 Sensor Respiratory Rate Blood Pressure Blood Pressure [Right Arm] Blood Pressure Mean Blood Pressure Mean [Right Arm] Blood Pressure Position [Right Arm] Pulse Oximetry Oxygen Delivery Method Sepsis Recent Fever Within 48 Hours Sepsis New/Unexplained Change in Mental Status Sepsis Action Taken by Nursing VITALS: Vitals are noted on the nurse's note and reviewed by myself. Vital signs stable. GENERAL: This is a 75-year-old obese white female, in no acute distress, nondiaphoretic, well-developed well-nourished. SKIN: The skin was without rashes, erythema, edema, or bruising. There is no tenting of the skin. Capillary refill less than 2 seconds. HEAD: Normocephalic atraumatic. EARS: External auditory canals clear, tympanic membranes pearly carrillo without erythema or effusion bilaterally. No hemotympanum. Negative montgomery sign. EYES: Pupils equal round and reactive to light and accommodation. Conjunctivae without injection, sclerae without icterus. Extraocular movements intact. NOSE: Patent, turbinates without inflammation or discharge. No sinus tenderness. MOUTH: Mucous membranes moist. Tonsils are not enlarged. Pharynx without erythema or exudate. Uvula midline. Airway patent. Tongue does not deviate. NECK: Supple without nuchal rigidity. No lymphadenopathy. No thyromegaly. Cervical spine is nontender. No JVD. HEART: Regular rate and rhythm without murmurs gallops or rubs. LUNGS: Clear to auscultation bilaterally without wheezes, rales or rhonchi. No retractions or accessory muscle use. ABDOMEN: Positive bowel sounds x 4. Normal tympanic percussion. Soft, nontender, without masses or organomegaly. Graff sign negative. No guarding or rebound tenderness. MUSCULOSKELETAL: No muscle atrophy, erythema, or edema noted. Full range of motion without joint tenderness in all extremities. Tenderness of the bilateral calves to palpation. 1+ pitting edema bilateral extremities. Normal gait. Strength 5/5 throughout. NEURO: Patient was alert and oriented to person place and time. Normal sensation to light and sharp touch. Deep tendon reflexes 2+ throughout. No focal neurological deficits. Cranial nerves II through XII grossly intact Course Course The patient was seen and evaluated as above. An order was placed for continuous cardiac monitoring. The monitor shows a normal sinus rhythm at a rate of 89 bpm. IV access obtained, labs drawn. Patient gently hydrated with IV fluids medicated with morphine. Imaging performed and reviewed by myself and radiologist as noted. Labs reviewed by myself. I discussed the findings with the patient at bedside. I discussed the case with my attending. I discussed case with the furniture manager I discussed the case with Dr. Molina, [facility] hospitalist. Please see hospitalist dictation regarding ongoing management final disposition of this patient Administered Medications Magnesium Sulfate/Dextrose (Magnesium Sulfate / D5w) 1 gm in 100 mls @ 50 mls/hr IV Q2H STA Stop: 10/03/21 06:08 Last Admin: 10/03/21 04:22 Dose: 50 mls/hr Documented by: [id number] Discontinued Medications Sodium Chloride (Nss 1000ml) 500 mls @ 999 mls/hr IV .Q31M ONE Stop: 10/02/21 23:28 Last Infusion: 10/03/21 00:57 Dose: 0 mls/hr Documented by: [id number] Admin: 10/02/21 23:33 Dose: 999 mls/hr Documented by: [id number] Acetaminophen (Ofirmev) 1,000 mg in 100 mls @ 400 mls/hr IV NOW STA Stop: 10/03/21 01:30 Last Infusion: 10/03/21 01:40 Dose: 0 mls/hr Documented by: [id number] Admin: 10/03/21 01:23 Dose: 400 mls/hr Documented by: [id number] Morphine Sulfate (Morphine Sulfate 4 Mg/Ml 1 Ml Carp\Vial) 4 mg IV NOW STA Stop: 10/02/21 23:01 Last Admin: 10/02/21 23:33 Dose: 4 mg Documented by: [id number] Medical Decision Making Differential Diagnosis DVT, musculoskeletal, infection, joint effusion, trauma, lymphedema, idiopathic, CHF, as well as other pathologies. Medical Records Attestation: I reviewed the patient's medical records. Home Medications Current Medication List: was personally reviewed by me Laboratory Data No leukocytosis, anemia. Thrombocytopenia with a platelet count of 85,000. Magnesium 1.1. Renal, hepatic function, and electrolytes without significant abnormality. Lipase 38. Lactic acid 2.5. BNP 410. Lyme disease IgG positive, Lyme disease IgM negative. Mixon blot is pending. INR 1.3. Result diagrams: 10/02/21 22:05 10/02/21 22:05 Lab Results 10/02/21 10/02/21 10/02/21 Range/Units 22:05 22:05 22:05 WBC 9.96 (4.8-10.8) K/uL RBC 4.34 (4.2-5.4) M/uL Hgb 13.7 (12.0-16.0) g/dL Hct 40.6 (37-47) % MCV 93.5 (80-100) fL MCH 31.6 (25-34) pg MCHC 33.7 (32-36) g/dL RDW Std Deviation 48.6 H (36.4-46.3) fL RDW Coeff of Leah 14.2 (11.5-14.5) % Plt Count 85 L (130-400) K/uL MPV 10.9 H (7.4-10.4) fL Immature Gran % (Auto) 0.1 % Neut % (Auto) 91.6 % Lymph % (Auto) 2.7 % Delta % (Auto) 5.6 % Eos % (Auto) 0.0 % Baso % (Auto) 0.0 % Neut # (Auto) 9.12 H (1.4-6.5) K/uL Lymph # (Auto) 0.27 L (1.2-3.4) K/uL Delta # (Auto) 0.56 (0.11-0.59) K/uL Eos # (Auto) 0.00 (0-0.5) K/uL Baso # (Auto) 0.00 (0-0.2) K/uL Immature Gran # (Auto) 0.01 (0.00-0.02) K/uL Platelet Estimate Decreased L (Normal) PT Cancelled INR Cancelled Sodium 134 L (136-145) mmol/L Potassium 4.0 (3.5-5.1) mmol/L Chloride 100 (98-107) mmol/L Carbon Dioxide 25 (21-32) mmol/L Anion Gap 9 (3-11) BUN 28 H (6-23) mg/dl Creatinine 0.94 (0.6-1.2) mg/dl Est Cr Clr Drug Dosing 56.3 ml/min Est GFR ( Amer) 67.8 ml/min Est GFR (Non-Af Amer) 58.5 ml/min BUN/Creatinine Ratio 29.8 H (10-20) Glucose 260 H (70-99(Fasting)) mg/dl Lactate (0.4-2.0) mmol/L Calcium 8.1 L (8.5-10.1) mg/dl Magnesium 1.1 L (1.7-2.4) mg/dl Total Bilirubin 0.8 (0.2-1.0) mg/dl AST 51 H (13-39) U/L ALT 27 (7-52) U/L Alkaline Phosphatase 74 (34-104) U/L Troponin I 0.04 (0-0.04) ng/ml B-Natriuretic Peptide (0-100) pg/ml Total Protein 7.1 (6.0-8.3) gm/dl Albumin 3.0 L (3.4-5.0) gm/dl Globulin 4.1 H (2.5-4.0) gm/dl Albumin/Globulin Ratio 0.7 L (0.9-2) Lipase 38 (11-82) U/L Urine Color Urine Appearance (Clear) Urine pH (4.5-7.5) Ur Specific [place] (1.000-1.030) Urine Protein (Negative) Urine Glucose (UA) (Negative) Urine Ketones (Negative) Urine Blood (Negative) Urine Nitrite (Negative) Urine Bilirubin (Negative) Urine Urobilinogen (Negative) Ur Leukocyte Esterase (Negative) Urine WBC (Auto) (0-5) /hpf Urine RBC (Auto) (0-4) /hpf U Hyaline Cast (Auto) (0-5) /lpf U Epithel Cells (Auto) (0-5) /lpf Urine Bacteria (Auto) (Negative) Lyme Disease IgG Ab (Negative) Lyme Disease IgM Ab (Negative) SARS-CoV-2, RNA, NAAT (NEGATIVE) 10/02/21 10/02/21 10/02/21 Range/Units 22:05 23:10 23:10 WBC (4.8-10.8) K/uL RBC (4.2-5.4) M/uL Hgb (12.0-16.0) g/dL Hct (37-47) % MCV (80-100) fL MCH (25-34) pg MCHC (32-36) g/dL RDW Std Deviation (36.4-46.3) fL RDW Coeff of Leah (11.5-14.5) % Plt Count (130-400) K/uL MPV (7.4-10.4) fL Immature Gran % (Auto) % Neut % (Auto) % Lymph % (Auto) % Delta % (Auto) % Eos % (Auto) % Baso % (Auto) % Neut # (Auto) (1.4-6.5) K/uL Lymph # (Auto) (1.2-3.4) K/uL Delta # (Auto) (0.11-0.59) K/uL Eos # (Auto) (0-0.5) K/uL Baso # (Auto) (0-0.2) K/uL Immature Gran # (Auto) (0.00-0.02) K/uL Platelet Estimate (Normal) PT INR Sodium (136-145) mmol/L Potassium (3.5-5.1) mmol/L Chloride (98-107) mmol/L Carbon Dioxide (21-32) mmol/L Anion Gap (3-11) BUN (6-23) mg/dl Creatinine (0.6-1.2) mg/dl Est Cr Clr Drug Dosing ml/min Est GFR ( Amer) ml/min Est GFR (Non-Af Amer) ml/min BUN/Creatinine Ratio (10-20) Glucose (70-99(Fasting)) mg/dl Lactate 2.5 H* (0.4-2.0) mmol/L Calcium (8.5-10.1) mg/dl Magnesium (1.7-2.4) mg/dl Total Bilirubin (0.2-1.0) mg/dl AST (13-39) U/L ALT (7-52) U/L Alkaline Phosphatase (34-104) U/L Troponin I (0-0.04) ng/ml B-Natriuretic Peptide 410 H (0-100) pg/ml Total Protein (6.0-8.3) gm/dl Albumin (3.4-5.0) gm/dl Globulin (2.5-4.0) gm/dl Albumin/Globulin Ratio (0.9-2) Lipase (11-82) U/L Urine Color Urine Appearance (Clear) Urine pH (4.5-7.5) Ur Specific [place] (1.000-1.030) Urine Protein (Negative) Urine Glucose (UA) (Negative) Urine Ketones (Negative) Urine Blood (Negative) Urine Nitrite (Negative) Urine Bilirubin (Negative) Urine Urobilinogen (Negative) Ur Leukocyte Esterase (Negative) Urine WBC (Auto) (0-5) /hpf Urine RBC (Auto) (0-4) /hpf U Hyaline Cast (Auto) (0-5) /lpf U Epithel Cells (Auto) (0-5) /lpf Urine Bacteria (Auto) (Negative) Lyme Disease IgG Ab Positive A (Negative) Lyme Disease IgM Ab Negative (Negative) SARS-CoV-2, RNA, NAAT (NEGATIVE) 10/03/21 10/03/21 10/03/21 Range/Units 00:42 00:51 00:51 WBC (4.8-10.8) K/uL RBC (4.2-5.4) M/uL Hgb (12.0-16.0) g/dL Hct (37-47) % MCV (80-100) fL MCH (25-34) pg MCHC (32-36) g/dL RDW Std Deviation (36.4-46.3) fL RDW Coeff of Leah (11.5-14.5) % Plt Count (130-400) K/uL MPV (7.4-10.4) fL Immature Gran % (Auto) % Neut % (Auto) % Lymph % (Auto) % Delta % (Auto) % Eos % (Auto) % Baso % (Auto) % Neut # (Auto) (1.4-6.5) K/uL Lymph # (Auto) (1.2-3.4) K/uL Delta # (Auto) (0.11-0.59) K/uL Eos # (Auto) (0-0.5) K/uL Baso # (Auto) (0-0.2) K/uL Immature Gran # (Auto) (0.00-0.02) K/uL Platelet Estimate (Normal) PT 13.3 H INR 1.3 H Sodium (136-145) mmol/L Potassium (3.5-5.1) mmol/L Chloride (98-107) mmol/L Carbon Dioxide (21-32) mmol/L Anion Gap (3-11) BUN (6-23) mg/dl Creatinine (0.6-1.2) mg/dl Est Cr Clr Drug Dosing ml/min Est GFR ( Amer) ml/min Est GFR (Non-Af Amer) ml/min BUN/Creatinine Ratio (10-20) Glucose (70-99(Fasting)) mg/dl Lactate 2.5 H* (0.4-2.0) mmol/L Calcium (8.5-10.1) mg/dl Magnesium (1.7-2.4) mg/dl Total Bilirubin (0.2-1.0) mg/dl AST (13-39) U/L ALT (7-52) U/L Alkaline Phosphatase (34-104) U/L Troponin I (0-0.04) ng/ml B-Natriuretic Peptide (0-100) pg/ml Total Protein (6.0-8.3) gm/dl Albumin (3.4-5.0) gm/dl Globulin (2.5-4.0) gm/dl Albumin/Globulin Ratio (0.9-2) Lipase (11-82) U/L Urine Color Urine Appearance (Clear) Urine pH (4.5-7.5) Ur Specific [place] (1.000-1.030) Urine Protein (Negative) Urine Glucose (UA) (Negative) Urine Ketones (Negative) Urine Blood (Negative) Urine Nitrite (Negative) Urine Bilirubin (Negative) Urine Urobilinogen (Negative) Ur Leukocyte Esterase (Negative) Urine WBC (Auto) (0-5) /hpf Urine RBC (Auto) (0-4) /hpf U Hyaline Cast (Auto) (0-5) /lpf U Epithel Cells (Auto) (0-5) /lpf Urine Bacteria (Auto) (Negative) Lyme Disease IgG Ab (Negative) Lyme Disease IgM Ab (Negative) SARS-CoV-2, RNA, NAAT NEGATIVE (NEGATIVE) 10/03/21 Range/Units 01:00 WBC (4.8-10.8) K/uL RBC (4.2-5.4) M/uL Hgb (12.0-16.0) g/dL Hct (37-47) % MCV (80-100) fL MCH (25-34) pg MCHC (32-36) g/dL RDW Std Deviation (36.4-46.3) fL RDW Coeff of Leah (11.5-14.5) % Plt Count (130-400) K/uL MPV (7.4-10.4) fL Immature Gran % (Auto) % Neut % (Auto) % Lymph % (Auto) % Delta % (Auto) % Eos % (Auto) % Baso % (Auto) % Neut # (Auto) (1.4-6.5) K/uL Lymph # (Auto) (1.2-3.4) K/uL Delta # (Auto) (0.11-0.59) K/uL Eos # (Auto) (0-0.5) K/uL Baso # (Auto) (0-0.2) K/uL Immature Gran # (Auto) (0.00-0.02) K/uL Platelet Estimate (Normal) PT INR Sodium (136-145) mmol/L Potassium (3.5-5.1) mmol/L Chloride (98-107) mmol/L Carbon Dioxide (21-32) mmol/L Anion Gap (3-11) BUN (6-23) mg/dl Creatinine (0.6-1.2) mg/dl Est Cr Clr Drug Dosing ml/min Est GFR ( Amer) ml/min Est GFR (Non-Af Amer) ml/min BUN/Creatinine Ratio (10-20) Glucose (70-99(Fasting)) mg/dl Lactate (0.4-2.0) mmol/L Calcium (8.5-10.1) mg/dl Magnesium (1.7-2.4) mg/dl Total Bilirubin (0.2-1.0) mg/dl AST (13-39) U/L ALT (7-52) U/L Alkaline Phosphatase (34-104) U/L Troponin I (0-0.04) ng/ml B-Natriuretic Peptide (0-100) pg/ml Total Protein (6.0-8.3) gm/dl Albumin (3.4-5.0) gm/dl Globulin (2.5-4.0) gm/dl Albumin/Globulin Ratio (0.9-2) Lipase (11-82) U/L Urine Color Dark Yellow Urine Appearance Clear (Clear) Urine pH 5.5 (4.5-7.5) Ur Specific [place] 1.022 (1.000-1.030) Urine Protein 3+ H (Negative) Urine Glucose (UA) Negative (Negative) Urine Ketones Negative (Negative) Urine Blood 3+ H (Negative) Urine Nitrite Negative (Negative) Urine Bilirubin Negative (Negative) Urine Urobilinogen Negative (Negative) Ur Leukocyte Esterase 1+ H (Negative) Urine WBC (Auto) 10-30 H (0-5) /hpf Urine RBC (Auto) >30 H (0-4) /hpf U Hyaline Cast (Auto) 1-5 (0-5) /lpf U Epithel Cells (Auto) >30 H (0-5) /lpf Urine Bacteria (Auto) Negative (Negative) Lyme Disease IgG Ab (Negative) Lyme Disease IgM Ab (Negative) SARS-CoV-2, RNA, NAAT (NEGATIVE) Imaging Data Attestation: I personally reviewed and interpreted this imaging study as follows: My Impression: Chest x-ray. Findings: A chest x-ray was performed and revealed no pneumothorax, effusion, infiltrate, pulmonary edema, free air under the diaphragm, or wide mediastinum. L-spine x-ray. No fracture or subluxation, per my interpretation. US VENOUS BILATERAL LOWER EXTREMITIES: No evidence of DVT in the right lower extremity. There appears to be a right sided Reece's cyst. No clear evidence of acute DVT within the left lower extremity. There is mild echogenic stranding in the left popliteal vein which is not fully compressible. This has an appearance of chronic sequela of DVT. Radiologist: George Pathak MD ECG Data Attestation: I personally reviewed and interpreted this ECG as follows: Indication: + chest pain Rate (beats per minute): 96 Rhythm: + normal sinus ECG Intervals/blocks: + Left anterior fascicular block and + Right Bundle branch block ECG ST segments: no ST depression, no ST elevation or no T-wave inversions Comparison ECG Date: from (10/14/2019) Change: no significant change Blood Pressure Blood Pressure Findings: Elevated blood pressure MDM Narrative This 75-year-old female patient presents to the emergency department today for evaluation of back pain, bilateral lower extremity edema, some chest pain and shortness of breath. She was found to be febrile on examination. She was hydrated with IV fluids and medicated with Tylenol. The patient was found to have a low magnesium of 1.1. She was thrombocytopenic. Imaging without obvious acute abnormality. Lactic acid was elevated at 2.5. Patient was gently hydrated. Suspicious for infection, but unclear source. Lyme IgG positive, but IgM was negative. No obvious tick exposures. Recommended admission to follow blood and urine cultures. Pt. will be admitted to [facility] hospitalist service. Please see hospitalist dictation regarding ongoing management and final disposition. The chart was completed utilizing [employer] Speech voice recognition software. Grammatical errors, random word insertions, pronoun errors, and incomplete sente nces are an occasional consequence of this system due to software limitations, ambient noise, and hardware issues. Any formal questions or concerns about the content, text, or information contained within the body of this dictation should be directly addressed to the provider for clarification. Impression & Plan Hypomagnesemia, Back pain, Fever Discharge Plan Visit Data Chief Complaint: Swelling/Edema to Extremity Stated Complaint: Edema ED Provider: Jamshid Stanley ED Midlevel Provider: Melissa Price Discharge Problem: Hypomagnesemia, Back pain, Fever Patient Disposition: Admitted As Inpatient Discharge Instructions Interventions: ED Discharge Assessment Last Done: 10/03/21 04:41 Forms Stand Alone Forms: My [facility], Virtual Emergency Department, Important Visit Information Prescriptions Prescriptions: No Action atorvastatin 10 mg tablet 10 mg PO HS Qty: 90 RF: 3 glimepiride 1 mg tablet 1 mg PO BID Qty: 180 RF: 3 lisinopril 10 mg tablet 10 mg PO HS Qty: 90 RF: 3 Slow-Mag 71.5 mg tablet,delayed release (DR/EC) 71.5 mg PO TID Qty: 270 RF: 3 furosemide 40 mg tablet 40 mg PO DAILY PRN (Reason: edema) Qty: 30 RF: 5 docusate sodium 100 mg Capsule 100 mg PO BID PRN (Reason: Constipation) RF: 0 cholecalciferol (vitamin D3) [Vitamin D3] 2,000 unit Capsule 2,000 unit PO QAM RF: 0 multivitamin Tablet 1 tab PO QAM RF: 0 vitamin E 400 unit capsule 400 unit PO QAM RF: 0 metformin 500 mg tablet 500 mg PO QAM RF: 0 Referrals Referrals: Franko Monk DO [Primary Care Provider] -
[2021-10-03 00:08] LABS: Immature Granulocytes # (auto) 0.01 K/uL (0.00-0.02); Immature Granulocytes % (auto) 0.1 %; Lymphocytes # (auto) 0.27 K/uL (1.2-3.4); Lymphocytes % (auto) 2.7 %; Mean Platelet Volume 10.9 fL (7.4-10.4); Monocytes # (auto) 0.56 K/uL (0.11-0.59); Monocytes % (auto) 5.6 %; Neutrophils # (auto) 9.12 K/uL (1.4-6.5); Neutrophils % (auto) 91.6 %; Platelet Count 85 K/uL (130-400); Platelet Estimate Decreased (Normal)
[2021-10-03 00:13] LABS: Lyme Ab IgM w/WB Rflx Negative (Negative)
[2021-10-03 00:15] LABS: Lyme Ab IgG w/WB Rflx Positive (Negative)
[2021-10-03 01:10] LABS: Appearance Urine Clear (Clear); Bacteria Urine Automated Negative (Negative); Bilirubin Urine Negative (Negative); Blood Urine 3+ (Negative); Color Urine Dark Yellow; Epithelial Cell Urine Auto >30 /lpf (0-5); Glucose Urine UA Negative (Negative); Ketones Urine Negative (Negative); Leukocyte Esterase Urine 1+ (Negative); Nitrite Urine Negative (Negative); Protein Urine 3+ (Negative); RBC Urine Automated >30 /hpf (0-4); Specific Gravity Urine 1.022 (1.000-1.030); Urobilinogen Urine Negative (Negative); pH Urine 5.5 (4.5-7.5)
[2021-10-03 01:14] LABS: INR 1.3 (0.9-1.1); Prothrombin Time 13.3 Seconds (9.0-12.0)
[2021-10-03] MEDS ORDERED: ACETAMINOPHEN 1,000 MG/100 ML VIAL IV STA (01:16)
[2021-10-03] MEDS ORDERED: MAGNESIUM SULFATE / D5W 1 GM/100 ML BAG IV STA ×2 (04:09→11:51)
--- NOTE | 2021-10-03 04:37 | History & Physical Report ---
Date of Service October 03, 2021 Assessment & Plan (1) Back pain: Plan: Acute leg and back pain which she describes as "cramping" pain without red-flag symptoms. Ddx includes myalgias from infection, cramping from hypomagnesemia, other MSK pain, discitis/osteomyelitis (less likely). - Infectious work-up as below - Treat hypomagensemia - Pain control with Tylenol PRN & lidocaine patch - PT/OT (2) Fever: Plan: Subjective fevers/chills at home, and temperature of 38.1 in the ER. UA with blood and WBCs, but also many epithelial cells. CXR looks clear to my read (offical read pending). No rashes or other noted skin findings. Tick-borne illness seems relatively unlikely given lack of exposure and season. Could be viral as son felt unwell also early in the week. - Follow blood and urine cultures - Follow anaplasma smear, Anaplasma DNA PCR, and Lyme Western Blot -> Does have elevated AST and thrombocytopenia; however, cirrhosis could also explain this. - Monitor -> Defer abx given no clear bacterial source of infection (3) Hypomagnesemia: Plan: Chronic issue. On oral Mg at home. Thought to be due to medications (PPI, metformin, Lasix). Had seen Dr. Taylor one time, but no follow-up. - Replete Mg with IV while in the hospital. - Monitor any change in leg/back pain (4) Diabetes mellitus with peripheral vascular disease: Plan: A1c was 6.8% in 06/2021. - Hold oral meds - Sliding scale insulin - Recheck A1c (5) Hypertension: Plan: BP was 100/55 - 160/55 in the ER. BP seems to swing fairly substantially with reads as low as 100/65 to 225/130 within last year. - Continue home lisinopril, but monitor closely (6) Liver cirrhosis: Plan: Presumed to be due to GREGORY. Had episode of varices, but EGD in 11/2020 was clear. - Presently compensated - No acute inpatient needs (7) Bilateral lower extremity edema: Plan: Chronic. No diagnosis of CHF per my review of PCP notes. Likely some venous stasis from obesity and cirrhosis. Son and patient both agree it is at baseline (L>R chronically). - Lasix PRN (8) Hyperlipemia: Plan: Stable, chronic medication. Think it is fairly unlikely it is causing elevated AST at present. - Continue statin for now, but could consider holding. (9) DVT prophylaxis: Plan: Lovenox 40 mg SQ daily -> Believe this is safe given relatively low bleeding risk given clean EGD. Cirrhosis also raises risk of VTE, so benefits > risks. History of Present Illness Chief Complaint: Leg and back pain Primary Care Provider: Franko Monk, DO 75yo F w/ hx of multiple joint issues, HTN, DM, and hypomagnesemia who presents with leg and lower back pain. She reports that for at least 2 days, she has had increased leg and lower back pain. She reports the pain in the legs as a cramping pain throughout the legs. In the back, she describes it as a dull, aching back pain in the lower lumbar region. She initially was taking Tylenol for this which "took the edge off," but over the last day, it has gotten worse to the point that she doesn't feel it is effective. She also notes that she has had subjective fevers and chills at home, though she has not checked her temperature. She notes some nausea, but no vomiting. No changes in urination. She has some baseline sinus congestion and cough in the mornings, but this hasn't changed. Her son was sick earlier in the week, though he just felt "run down." She reports she "hibernates" in the winter and does not go outside. She does have several indoor/outdoor cats, but has not noticed any ticks on them. She has not had any known tick bites either. Allergies Allergy/AdvReac Type Severity Reaction Status Date / Time No Known Allergies Allergy Verified 10/02/21 22:16 Home Medications Medication Instructions Recorded Confirmed Type cholecalciferol (vitamin D3) 50 2,000 unit PO QAM 07/01/18 10/02/21 History mcg (2,000 unit) capsule (Vitamin D3) docusate sodium 100 mg capsule 100 mg PO BID PRN 07/01/18 10/02/21 History multivitamin 1 tab PO QAM 10/14/19 10/02/21 History vitamin E 400 unit capsule 400 unit PO QAM cap 08/14/20 10/02/21 History furosemide 40 mg tablet 40 mg PO DAILY PRN #30 tab 12/29/20 10/02/21 Rx magnesium chloride 71.5 mg 71.5 mg PO TID #270 tab 04/13/21 10/02/21 Rx (magnesium chloride) tablet,delayed release (Slow-Mag) atorvastatin 10 mg tablet 10 mg PO HS #90 tab 08/12/21 10/02/21 Rx glimepiride 1 mg tablet 1 mg PO BID #180 tab 08/12/21 10/02/21 Rx lisinopril 10 mg tablet 10 mg PO HS #90 tab 08/12/21 10/02/21 Rx metformin 500 mg tablet 500 mg PO QAM 10/02/21 10/02/21 History Past Med/Surg History Medical History (Updated 10/03/21 @ 04:33 by Burt Molina MD) Acute DVT (deep venous thrombosis) 2019> no known cause > Filter to right groin 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 Chronic back pain 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 Diverticular hemorrhage resolved Esophageal varices determined by endoscopy GERD (gastroesophageal reflux disease) GI bleed none at present Hypertension Migraine Monoclonal gammopathy Obesity Osteoarthritis Pulmonary embolism 2019 > no known cause > Filter to right groin Vertigo Surgical History History of bilateral breast reduction surgery History of bilateral cataract extraction History of carpal tunnel release of both wrists History of section x3 History of colonoscopy History of dilatation and curettage History of esophagogastroduodenoscopy (EGD) History of laparoscopic cholecystectomy History of lumbar spinal fusion hardware in place History of tonsillectomy History of tooth extraction all teeth History of total left knee replacement (TKR) History of total right knee replacement (TKR) Family History Mother Family history of diabetes mellitus Brother Family history of diabetes mellitus 3 brothers Colorectal cancer Myocardial infarction x 2 Father Myocardial infarction Denies family history of Ovarian cancer Prostate cancer Breast cancer Social History Smoking Status: Never smoker Second Hand Exposure: Yes; Hx Alcohol Use: No Hx Substance Use: No Preferred Language: Croatian Communication Ability: Effective Tools Programmer Required: No Beliefs That Will Affect Care: None marital status: / Current Living Situation: Family Current Living Situation Comment: Lives in grandson's apartment Feels Safe at Home: Yes Childhood Exposure to Second-Hand Smoke: Yes caffeine: Yes Dental Care, Regularly: No Physical Activity Frequency: Does not Exercise Seatbelt Use: always Sunscreen Use: No Assistive Devices: Denture - Upper, Denture - Lower, Glasses and Walker Review of Systems Review of Systems: All systems reviewed & are unremarkable except as noted in HPI & below Physical Exam Constitutional: WD/WN, vitals as above Eyes: EOM intact bilaterally; no conjunctival abnormality ENMT: external ear and nose normal, oropharynx normal Neck: trachea midline, no thyromegaly normal visual inspection Respiratory: normal respiratory effort, lungs clear to auscultation no respiratory distress Cardiovascular: RRR, no murmur, no edema Extremities: + edema (L>R, this is chronic per patient and son) Gastrointestinal (Abdomen): Inspection/Auscultation: abdomen normal to inspection; abdomen not distended Musculoskeletal: no cyanosis or clubbing, extremities motor strength 5/5 Spine: lumbar spine normal to inspection (Tender to palpation in midline spine) Skin: no rashes, warm and dry Neurologic: moves all extremities and awake Psychiatric: Orientation: alert, oriented to person and cooperative Results & Data Results & Data ([facility]) Vital Signs (Past 12 Hours) Vital Signs Temp Pulse Pulse Resp BP BP Pulse Ox 10/03/21 04:07 37.3 C 10/03/21 03:52 70 16 100/54 L 95 10/03/21 03:00 75 15 117/43 L 91 10/02/21 23:42 90 20 148/64 H 96 10/02/21 23:29 20 96 10/02/21 21:47 38.1 C H 89 20 172/121 H 96 Code Status & VTE Plan VTE Prophylaxis Plan VTE Prophylaxis will be ordered: Yes PG Care Time/CCT Total # of Minutes Spent Total Time Spent with Patient: Total time spent is greater than 50% in coordination of care (as documented) at patient's floor/unit and/or counseling patient: Coding Level of Care Code 64117 Initial Inpt Care Lvl 3 Diagnoses Liver cirrhosis K74.60 Back pain M54.9 Fever R50.9 Diabetes mellitus with peripheral vascular disease E11.51 Hypomagnesemia E83.42 DVT prophylaxis Z29.9 Bilateral lower extremity edema R60.0 Hyperlipemia E78.5 Hypertension I10
[2021-10-03] MEDS ORDERED: GLUCOSE 40% GEL 15 GM TUBE PO PRN (05:15)
[2021-10-03] MEDS ORDERED: GLUCAGON FOR INJ 1 MG VIAL SQ PRN (05:15)
[2021-10-03] MEDS ORDERED: DEXTROSE 50% 50 ML SYRINGE IV PRN (05:15)
[2021-10-03] MEDS ORDERED: GLUCOSE 10 TABS/TUBE PO PRN (05:15)
[2021-10-03] MEDS ORDERED: DOCUSATE SODIUM 100 MG CAP PO PRN (05:15)
[2021-10-03] MEDS ORDERED: CARBOHYDRATES FOR HYPOGLYCEMIA PO PRN (05:15)
[2021-10-03] MEDS ORDERED: ONDANSETRON INJ 2 MG/ML 2 ML VIAL IV PRN (05:15)
[2021-10-03] MEDS: ACETAMINOPHEN 325 MG TAB PO PRN ×3 (05:57→21:22)
[2021-10-03] MEDS: MAGNESIUM SULFATE / D5W 1 GM/100 ML BAG IV SCH ×3 (06:40→10:32)
[2021-10-03] MEDS: LIDOCAINE 5% 1 PATCH TD SCH (07:39)
[2021-10-03] MEDS: CHOLECALCIFEROL 1,000 UNITS 25 MCG TAB PO SCH (07:39)
[2021-10-03] MEDS: ENOXAPARIN INJ 40 MG/0.4 ML SYR SQ SCH (07:40)
[2021-10-03] MEDS: INSULIN ASPART PER UNIT SC SCH ×4 (08:39→21:20)
--- NOTE | 2021-10-03 09:04 | Ultrasound Report ---
BILATERAL LOWER EXTREMITY VENOUS DOPPLER HISTORY: Bilateral lower extremity edema COMPARISON STUDY: None. FINDINGS: No evidence for DVT within the right lower extremity. 2.1 x 1.2 x 1.2 cm popliteal cyst is noted on the right. Mild echogenic stranding within the left popliteal vein which is not fully compre ssible. This favors a chronic nonocclusive DVT. The left common femoral, superficial femoral, left ca lf vessels appear patent. IMPRESSION: 1. No DVT within the right lower extremity. 2. Small focus of echogenic stranding within the left popliteal vein which is not fully compressible. This favors chronic nonocclusive DVT. 3. No definite evidence for acute DVT within the left lower extremity. ACT 112: Negative or not required by law. Electronically signed by: Derian Kerns M.D. 10/03/2021 9:03 AM
--- NOTE | 2021-10-03 09:22 | XRay Report ---
XR lumbar spine 2-3V HISTORY: 75 years-old Female low back pain acute low back pain COMPARISON: CT abdomen and pelvis 10/14/2019 TECHNIQUE: 3 views of the lumbar spine FINDINGS: Cholecystectomy. IVC filter noted at the level of L2-L3. Moderate fecal retention of the left hemicol on. Mild osteoarthritis of the hips. Posterior interbody adrianna and screw fusion at L4-S1. The hardware appears intact. Minimal lumbar levoscoliosis. Mild multilevel intervertebral disc space narrowing wit h associated spondylitic spurring and facet arthrosis is redemonstrated. No acute fracture, subluxati on or endplate erosion. IMPRESSION: 1. No acute fracture or subluxation. 2. Prior laminectomy with posterior interbody adrianna and screw fusion at L4-S1. ACT 112: Negative or not required by law. The above report was generated using voice recognition software. It may contain grammatical, syntax o r spelling errors. Electronically signed by: Victo rM Reyna M.D. 10/03/2021 9:20 AM
--- NOTE | 2021-10-03 09:29 | XRay Report ---
XR chest 1V portable HISTORY: cough COMPARISON: Chest 10/14/2019. FINDINGS: There are low lung volumes. The heart remains enlarged. No evidence for pulmonary edema. Sen spect a trace left pleural effusion. No new focal lung consolidations to suggest pneumonia. Prior cho lecystectomy. IMPRESSION: 1. Stable cardiomegaly and a trace left pleural effusion. 2. No evidence for pulmonary edema. ACT 112: Negative or not required by law. Electronically signed by: Derian Kerns M.D. 10/03/2021 9:28 AM
[2021-10-03] MEDS ORDERED: VANCOMYCIN CONSULT ACTIVE PRN (12:17)
--- NOTE | 2021-10-03 12:30 | History & Physical Bridge Note ---
Date of Service October 03, 2021 History & Physical Bridge Note I have examined the patient, reviewed the History & Physical and in the interval since the performance of the History & Physical I have noted the following changes of clinical significance. 75-year-old female with a history of cirrhosis -2-day history of back pain, bilateral leg pain, on presentation fever with chills; pain symptoms somewhat better Exam right knee inferomedial swelling with tenderness and some erythema (noted popliteal cyst) Lab data show elevated lactic acid (noted cirrhosis, noted low-dose Metformin use) but markedly elevated procalcitonin; Constellation suspicious for acute bacterial infectionMRI spine, also CT right lower extremity in the area of tenderness; volumecautious; empiric Vanco plus Rocephin pending clarity; Depending on course consider abdominal imaging and possible paracentesis if significant fluid (denies abdominal pain as such) Of note, she has a known history of right lower extremity DVT and apparently PE but has never been on anticoagulation due to GI bleeding (therefore subocclusive DVT seen is probably oldno action in this regard at present); Addendum: CT lower extremity notedreevaluated; quite painful on passive movement particularly right knee-Ortho input Lumbar MRI nonacute CRP added, trend lactate in a.m. By my assessment, treat as acute bacterial infection unless proven otherwise Lyme IgG noted; rest pending, Rocephin should cover
[2021-10-03] MEDS ORDERED: OPTIRAY 320 100ml IV ONE (13:02)
[2021-10-03] MEDS ORDERED: VANCOMYCIN HCL 2,250 MG in SODIUM CHLORIDE 0.9% 500 ML IV ONE (13:15)
--- NOTE | 2021-10-03 13:32 | CT Scan Report ---
CT knee RT w con, CT tib/fib RT w con HISTORY: 75 years-old Female fever, local tenderness near knee . Pain of the right knee and lower le g with fever soft tissue infection COMPARISON: Skeletal survey radiographs 03/27/2015 TECHNIQUE: Multiple axial CT images of the right knee, tibia and fibula were obtained following the i ntravenous ministration of 96 and Optiray 320. A dose lowering technique was used consistent with the principals of ALARA. FINDINGS: KNEE: Right knee arthroplasty with patellar resurfacing. Artifact from the hardware limits the study. Demin eralized appearance of the bones. There is no acute fracture, dislocation, osseous erosion or evidenc e of hardware complication. Small mildly complex right knee joint effusion. Lower extremity varicosit ies. Atherosclerotic vascular disease. Mild atrophy of the lower thigh musculature. Mild nonspecific subcutaneous edema with skin thickening. No fluid collection. TIBIA/FIBULA: No acute fracture, dislocation or osseous erosion. Demineralized appearance of the bones. No suspici ous bone lesions. Osteoarthritis of the ankle and hindfoot. Moderate atherosclerotic vascular disease . Tendons and ligaments are better evaluated by MRI. IMPRESSION: 1. Right knee total joint arthroplasty and patella resurfacing no acute fracture, dislocation or evid ence of hardware complication. 2. Small right knee joint effusion. 3. Lower extremity varicosities with mild nonspecific subcutaneous edema. No fluid collection. ACT 112: Negative or not required by law. The above report was generated using voice recognition software. It may contain grammatical, syntax o r spelling errors. Electronically signed by: Victor M Reyna M.D. 10/03/2021 1:31 PM
[2021-10-03] MEDS: cefTRIAXone SODIUM 2,000 MG in DEXTROSE 5% 50 ML IV SCH (13:38)
[2021-10-03] MEDS: SODIUM CHLORIDE 0.9% 1000ML 1,000 ML IV SCH (13:40)
--- NOTE | 2021-10-03 14:34 | Pharmacy Report ---
Pharmacy Vanc AUC Short Note - Date of Service October 03, 2021 - Assessment & Plan Assessment 75 year old F receiving IV vancomycin for treatment of empiric sepsis. Pertinent microbiologic data includes: blood and urine cultures are pending. Day # 1 of antimicrobial therapy. Plan Vancomycin * AUC/NED is the preferred PK/PD target for vancomycin * AUC guided dosing is effective and associated with decreased risk of nephrotoxicity compared to traditional trough targets * Trough level of 13.4 mcg/mL is predicted to achieve target AUC/NED of 400-600 mg/L.hr and may be associated with a 9 % risk of nephrotoxicity * Started dose of 1000 mg IV every 24 hours * Trough level ordered for: 10/06/21 Ceftriaxone * 2g IV q24h for anaerobic coverage Pharmacy will continue to follow and will adjust dose/frequency as necessary. Thank you.
[2021-10-03] MEDS ORDERED: GADOBUTROL 30ML VIAL IV ONE (14:38)
--- NOTE | 2021-10-03 15:55 | Magnetic Resonance Report ---
MR lumbar spine wo/w con CLINICAL HISTORY: 75 years-old Female with fever, Back hardware, back pain. Acute severe low back pa in COMPARISON: CT abdomen and pelvis 10/14/2019 TECHNIQUE: Multiplanar, multi sequence MRI of the lumbar spine was performed with and without the use of 10.5 cc Gadavist FINDINGS: Clinical Trial Leader localizer images demonstrate no gross extraspinal abnormality. Mild lumbar levoscoliosis. The s tudy is limited secondary to patient motion artifact and patient body habitus. Prior L4-L5 laminectom y with L4-S1 posterior interbody adrianna and screw fusion redemonstrated. Transitional lumbosacral anatom y with a small S1-S2 disc space. 3 mm anterolisthesis L4 on L5 with 5 mm anterolisthesis L4 on L5 is unchanged. The study is limited secondary to the right lateral aspect of the vertebral bodies only partially tyesha ged on the sagittal series. Mild Modic type I and II endplate degeneration at L2-L3. No acute fractur e, subluxation or endplate erosion. The conus medullaris terminates at L1. Signal within the thoracic spinal cord and cauda equina is unremarkable. T12-L1: No central canal or neural foraminal stenosis. L1-L2: Minimal spondylitic spurring with moderate facet arthrosis. No central canal or neural forami nal stenosis. L2-L3: Mild intervertebral disc space narrowing and spondylitic spurring with small posterior disc o steophyte complex. Ligamentum flavum thickening with moderate facet arthrosis. Mild central canal edgar nosis, AP dimension of the thecal sac measuring 9 mm. Moderate right with [id number] left neura l foraminal narrowing. L3-L4: Mild intervertebral disc space narrowing and spondylitic spurring with small posterior disc o steophyte complex. Ligamentum flavum thickening with severe facet arthrosis. Mild central canal steno sis with AP dimension of the thecal sac measuring 9 mm. Severe right with moderate left neural forami nal narrowing. L4-L5: Mild spondylitic spurring. The central canal is patent. Mild stenosis of the neural foramina, right greater than left. L5-S1: Mild spondylitic spurring with posterior annular disc bulge/disc space uncovering.. The centr al canal and left neural foramen are patent. Mild right foraminal narrowing. No abnormal enhancement. IMPRESSION: 1. Limited exam as above. 2. Prior L4-L5 laminectomy with L4-S1 posterior interbody adrianna and screw fusion. Unchanged chronic gra de 1 anterolisthesis L4 on L5 and L5 on S1. 3. Spondylitic spurring with discogenic degeneration and facet arthrosis as detailed above. 4. No acute fracture or abnormal enhancement. ACT 112: Negative or not required by law. The above report was generated using voice recognition software. It may contain grammatical, syntax o r spelling errors. Electronically signed by: Victor M Reyna M.D. 10/03/2021 3:54 PM
--- NOTE | 2021-10-03 19:06 | XRay Report ---
XR knee RT 1 or 2V routine HISTORY: 75 years-old Female Right knee pain acute pain of the right knee COMPARISON: Right knee, tibia and fibula CT studies of same day TECHNIQUE: 2 views the right knee FINDINGS: Cortical thickening of the mid to distal diaphyseal femur suggestive of a healed fracture deformity. Right knee total joint arthroplasty and patella resurfacing. Small joint effusion. No acute fracture, dislocation or osseous erosion. Arterial calcifications. IMPRESSION: 1. No acute fracture or dislocation. 2. Cortical thickening of the femoral diaphysis is suggestive of a healed fracture. 3. Total joint arthroplasty with patellar resurfacing. ACT 112: Negative or not required by law. The above report was generated using voice recognition software. It may contain grammatical, syntax o r spelling errors. Electronically signed by: Victor M Reyna M.D. 10/03/2021 7:04 PM
[2021-10-03] MEDS ORDERED: lisinopril 10 MG TAB PO SCH (21:00)
[2021-10-03] MEDS: ATORVASTATIN 10 MG TAB PO SCH (21:22)
[2021-10-04] MEDS: SODIUM CHLORIDE 0.9% 1000ML 1,000 ML IV SCH ×3 (00:20→20:46)
[2021-10-04] MEDS: ACETAMINOPHEN 325 MG TAB PO PRN (02:20)
--- NOTE | 2021-10-04 05:31 | Electrocardiogram Report ---
Test Reason : Blood Pressure : / mmHG Vent. Rate : 096 BPM Atrial Rate : 096 BPM P-R Int : 120 ms QRS Dur : 136 ms QT Int : 374 ms P-R-T Axes : 000 -71 038 degrees QTc Int : 472 ms Normal sinus rhythm Right bundle branch block Left anterior fascicular block Bifascicular block Abnormal ECG When compared with ECG of 14-OCT-2019 11:22, No significant change Confirmed by Elder Rodriguez ([id number]) on 10/04/2021 5:30:59 AM Referred By: REFERRED SELF Confirmed By:Elder Rodriguez
[2021-10-04] MEDS ORDERED: INSULIN ASPART PER UNIT SC SCH (06:00)
[2021-10-04 06:05] LABS: Hematocrit (blood only) 33.2 % (37-47); Hemoglobin 11.2 g/dL (12.0-16.0); Mean Corpuscular Hemoglobin 31.5 pg (25-34); Mean Corpuscular Hgb Conc 33.7 g/dL (32-36); Mean Corpuscular Volume 93.3 fL (80-100); RDW Coefficient of Variation 14.9 % (11.5-14.5); RDW Standard Deviation 50.8 fL (36.4-46.3); Red Blood Count 3.56 M/uL (4.2-5.4); White Blood Count 6.78 K/uL (4.8-10.8)
[2021-10-04 06:12] LABS: Mean Platelet Volume 10.1 fL (7.4-10.4); Platelet Count 64 K/uL (130-400)
[2021-10-04 06:38] LABS: Albumin Globulin Ratio 0.7 (0.9-2); Albumin Level 2.3 gm/dl (3.4-5.0); BUN Creatinine Ratio 35.2 (10-20); Bilirubin,Total 0.4 mg/dl (0.2-1.0); Creatinine Clr Calc Pharmacy 41.2 ml/min; Est GFR (African American) 47.7 ml/min; Est GFR (Non-African American) 41.2 ml/min; Globulin 3.2 gm/dl (2.5-4.0); Potassium 4.1 mmol/L (3.5-5.1); Total Protein 5.5 gm/dl (6.0-8.3)
--- NOTE | 2021-10-04 07:44 | Pharmacy Report ---
Pharmacy Vanc AUC Short Note - Date of Service October 04, 2021 - Assessment & Plan Assessment * 76 year old F receiving IV vancomycin for treatment of empiric sepsis * SCr with notable rise today from 0.94 to 1.25 mg/dL. Vancomycin * AUC/NED is the preferred PK/PD target for vancomycin * AUC guided dosing is effective and associated with decreased risk of nephrotoxicity compared to traditional trough target Plan * Continue vancomycin 1000 mg IV q24h, but place on hold after dose today * Trough tomorrow at 0930 - will assess level prior to administering ongoing vancomycin given rise in SCr today Pharmacy will continue to follow and will adjust dose/frequency as necessary. Thank you.
[2021-10-04] MEDS: LIDOCAINE 5% 1 PATCH TD SCH (08:40)
[2021-10-04] MEDS: CHOLECALCIFEROL 1,000 UNITS 25 MCG TAB PO SCH (08:40)
[2021-10-04 09:13] LABS: Estimated Average Glucose 157 mg/dl; Hemoglobin A1C 7.1 % (4.5-5.6)
[2021-10-04] MEDS: ENOXAPARIN INJ 40 MG/0.4 ML SYR SQ SCH (10:25)
[2021-10-04] MEDS: VANCOMYCIN HCL 1,000 MG in SODIUM CHLORIDE 0.9% 250 ML IV SCH (10:25)
--- NOTE | 2021-10-04 10:32 | Orthopedic Consultation ---
Date of Consultation October 04, 2021 Assessment & Plan (1) Right knee pain: X-rays and CT scan reviewed. No obvious fractures/dislocations. Small right knee effusion noted. WBC count normal, C-reactive protein 11. With her current exam, I feel less likely that she has a right TKA infection. Most of her pain seems to be coming from her cellulitis below the knee that travels proximally. She has some very mild tenderness on palpation of the distal knee and no pain on palpation over the suprapatellar pouch or patella itself. Does have some noted osteopenia of the tibia in the anterior region questioning early stages of loosening of the tibial component. Patient seen and evaluated I agree with above. Based on the patient's clinical examination there does not appear to be a knee effusion present most of her tenderness extends along the medial aspect of the leg from the ankle up until of the groin. There is overlying erythema consistent with cellulitis. She does not have any significant pain with gentle arc of motion of the knee and notes that her knee pain has been improving since arrival at the hospital. I would recommend continued treatment for cellulitis. No further plan to aspirate at this time. Patient may follow up as an outpatient. History of Present Illness Reason for Consultation: Right knee pain Attending Physician: Viviana Ibarra MD History of Present Illness Patient is a 75yo female w/ hx of multiple joint issues, HTN, DM, and hypomagnesemia who presents with leg and lower back pain. Patient has had right and left knee replacements by Dr. Tin Grayson many years ago. She has also had a lumbar fusion by Dr. Salazar in the past. Patient states that she came to the emergency room yesterday secondary to increasing low back pain and lower extremity pain. He states that the pain that was in her back seem to be going down both extremities to her feet. In her right knee compared to the left. She states that she was able to ambulate on the right lower extremity but was having discomfort. She states that she did have some chills at home but did not take her temperature. Unknown if she had a fever. She did have some nausea but no vomiting. She was apparently taking Tylenol to help with her discomfort which eventually was not helping and she came to the emergency room to be seen. By the hospitalist service and we have been asked to see her for right knee pain. Allergies Allergy/AdvReac Type Severity Reaction Status Date / Time No Known Allergies Allergy Verified 10/02/21 22:16 Home Medications Medication Instructions Recorded Confirmed Type cholecalciferol (vitamin D3) 50 2,000 unit PO QAM 07/01/18 10/02/21 History mcg (2,000 unit) capsule (Vitamin D3) docusate sodium 100 mg capsule 100 mg PO BID PRN 07/01/18 10/02/21 History multivitamin 1 tab PO QAM 10/14/19 10/02/21 History vitamin E 400 unit capsule 400 unit PO QAM cap 08/14/20 10/02/21 History furosemide 40 mg tablet 40 mg PO DAILY PRN #30 tab 12/29/20 10/02/21 Rx magnesium chloride 71.5 mg 71.5 mg PO TID #270 tab 04/13/21 10/02/21 Rx (magnesium chloride) tablet,delayed release (Slow-Mag) atorvastatin 10 mg tablet 10 mg PO HS #90 tab 08/12/21 10/02/21 Rx glimepiride 1 mg tablet 1 mg PO BID #180 tab 08/12/21 10/02/21 Rx lisinopril 10 mg tablet 10 mg PO HS #90 tab 08/12/21 10/02/21 Rx metformin 500 mg tablet 500 mg PO QAM 10/02/21 10/02/21 History Patient History Medical History (Updated 10/04/21 @ 13:55 by Viviana Ibarra MD) Acute DVT (deep venous thrombosis) 2019> no known cause > Filter to right groin 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 Chronic back pain Chronic deep vein thrombosis (DVT) 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 Diverticular hemorrhage resolved Esophageal varices determined by endoscopy GERD (gastroesophageal reflux disease) GI bleed none at present Hypertension Migraine Monoclonal gammopathy Obesity Osteoarthritis Pulmonary embolism 2019 > no known cause > Filter to right groin Vertigo Surgical History History of bilateral breast reduction surgery History of bilateral cataract extraction History of carpal tunnel release of both wrists History of section x3 History of colonoscopy History of dilatation and curettage History of esophagogastroduodenoscopy (EGD) History of laparoscopic cholecystectomy History of lumbar spinal fusion hardware in place History of tonsillectomy History of tooth extraction all teeth History of total left knee replacement (TKR) History of total right knee replacement (TKR) Family History Mother Family history of diabetes mellitus Brother Family history of diabetes mellitus 3 brothers Colorectal cancer Myocardial infarction x 2 Father Myocardial infarction Denies family history of Ovarian cancer Prostate cancer Breast cancer Social History Smoking Status: Former smoker Cigarettes Per Day: "Not many".; Second Hand Exposure: No; Hx Alcohol Use: No Hx Substance Use: No Preferred Language: Vietnamese Communication Ability: Effective 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 Feels Safe at Home: Yes Childhood Exposure to Second-Hand Smoke: Yes caffeine: Yes Dental Care, Regularly: No Physical Activity Frequency: Does not Exercise Seatbelt Use: always Sunscreen Use: No Assistive Devices: Walker Physical Exam Physical Exam: Patient is a 76-year-old obese white female who appears her stated age. She is alert and oriented. No acute distress, pleasant and cooperative. On examination of her right lower extremity, the knee has a well-healed scar noted from previous TKA done many years ago. She has multiple scratches on her right knee which she states are from kittens that she has at home. The knee does not look overtly erythematous at this time. She does have some bright red erythema and edema of the anterior medial aspect of the lower extremity just above the ankle. This area is quite sensitive to touch and is very painful to the patient on palpation. Some of this erythema does extend of the medial aspect of the lower extremity and goes just slightly above the knee. It is light in color. She states she has some mild tenderness still in the left thigh region which she states is better today. She has minimal discomfort on palpation over the right knee. I cannot appreciate any fluctuance in the prepatellar area. She does not have a tense effusion. I am able to take her through passive range of motion without moderate pain. Range of motion is approximately 0-90. During range of motion, the patient does not appear to be in pain. Patient is able to actually do some active range of motion on her own of which she states she does have some discomfort but mostly on the medial aspect and down on the lower extremity. When she attempts to move her right knee, she does a partial straight leg raise which does not seem to accentuate her back pain. She has pain over the anterior tibia and also on the posterior aspect of the leg around the right calf. Homans exam is negative. Left lower extremity is unaffected. He has a well-healed scar over her left knee from previous left TKA. Range of motion is within normal limits. She has no pain in the left hip or ankle. Upper extremities appear to be unaffected and she is nontender at the shoulders, elbows, and wrists. She does not appear to have any gross motor or sensory loss at this time. Results & Data ([facility]) Vital Signs (Past 12 Hours) Vital Signs Temp Pulse Resp BP Pulse Ox 10/04/21 07:47 36.4 C L 66 22 110/67 99 Laboratory Results Laboratory Results WBC 6.78 K/uL (4.8-10.8) 10/04/21 05:52 RBC 3.56 M/uL (4.2-5.4) L 10/04/21 05:52 Hgb 11.2 g/dL (12.0-16.0) L 10/04/21 05:52 Hct 33.2 % (37-47) L 10/04/21 05:52 MCV 93.3 fL (80-100) 10/04/21 05:52 MCH 31.5 pg (25-34) 10/04/21 05:52 MCHC 33.7 g/dL (32-36) 10/04/21 05:52 RDW Std Deviation 50.8 fL (36.4-46.3) H 10/04/21 05:52 RDW Coeff of Leah 14.9 % (11.5-14.5) H 10/04/21 05:52 Plt Count 64 K/uL (130-400) L 10/04/21 05:52 MPV 10.1 fL (7.4-10.4) 10/04/21 05:52 Immature Gran % (Auto) 0.1 % 10/02/21 22:05 Neut % (Auto) 91.6 % 10/02/21 22:05 Lymph % (Auto) 2.7 % 10/02/21 22:05 [place] % (Auto) 5.6 % 10/02/21 22:05 Eos % (Auto) 0.0 % 10/02/21 22:05 Baso % (Auto) 0.0 % 10/02/21 22:05 Neut # (Auto) 9.12 K/uL (1.4-6.5) H 10/02/21 22:05 Lymph # (Auto) 0.27 K/uL (1.2-3.4) L 10/02/21 22:05 [place] # (Auto) 0.56 K/uL (0.11-0.59) 10/02/21 22:05 Eos # (Auto) 0.00 K/uL (0-0.5) 10/02/21 22:05 Baso # (Auto) 0.00 K/uL (0-0.2) 10/02/21 22:05 Immature Gran # (Auto) 0.01 K/uL (0.00-0.02) 10/02/21 22:05 Platelet Estimate Decreased (Normal) L 10/02/21 22:05 PT 13.3 Seconds (9.0-12.0) H 10/03/21 00:51 INR 1.3 (0.9-1.1) H 10/03/21 00:51 Sodium 133 mmol/L (136-145) L 10/04/21 05:52 Potassium 4.1 mmol/L (3.5-5.1) 10/04/21 05:52 Chloride 103 mmol/L (98-107) 10/04/21 05:52 Carbon Dioxide 25 mmol/L (21-32) 10/04/21 05:52 Anion Gap 5 (3-11) 10/04/21 05:52 BUN 44 mg/dl (6-23) H 10/04/21 05:52 Creatinine 1.25 mg/dl (0.6-1.2) H D 10/04/21 05:52 POC Creatinine 1.4 mg/dl (0.6-1.3) H 10/03/21 03:00 Est Cr Clr Drug Dosing 41.2 ml/min 10/04/21 05:52 Est GFR ( Amer) 47.7 ml/min 10/04/21 05:52 Est GFR (Non-Af Amer) 41.2 ml/min 10/04/21 05:52 BUN/Creatinine Ratio 35.2 (10-20) H 10/04/21 05:52 Glucose 110 mg/dl (70-99(Fasting)) H 10/04/21 05:52 POC Glucose 106 mg/dl (70-99) H 10/04/21 06:09 Estimat Average Glucose 157 mg/dl 10/04/21 05:52 Hemoglobin A1c 7.1 % (4.5-5.6) H 10/04/21 05:52 Lactate 0.8 mmol/L (0.4-2.0) 10/04/21 05:52 Calcium 8.0 mg/dl (8.5-10.1) L 10/04/21 05:52 Magnesium 2.0 mg/dl (1.7-2.4) 10/04/21 05:52 Total Bilirubin 0.4 mg/dl (0.2-1.0) 10/04/21 05:52 AST 33 U/L (13-39) 10/04/21 05:52 ALT 21 U/L (7-52) 10/04/21 05:52 Alkaline Phosphatase 46 U/L (34-104) 10/04/21 05:52 Troponin I 0.04 ng/ml (0-0.04) 10/02/21 22:05 C-Reactive Protein 11.83 mg/dl (0-0.5) H 10/03/21 17:38 B-Natriuretic Peptide 410 pg/ml (0-100) H 10/02/21 23:10 Total Protein 5.5 gm/dl (6.0-8.3) L D 10/04/21 05:52 Albumin 2.3 gm/dl (3.4-5.0) L 10/04/21 05:52 Globulin 3.2 gm/dl (2.5-4.0) 10/04/21 05:52 Albumin/Globulin Ratio 0.7 (0.9-2) L 10/04/21 05:52 Lipase 38 U/L (11-82) 10/02/21 22:05 Procalcitonin 5.37 ng/ml (0-0.5) H 10/03/21 06:23 Urine Color Dark Yellow 10/03/21 01:00 Urine Appearance Clear (Clear) 10/03/21 01:00 Urine pH 5.5 (4.5-7.5) 10/03/21 01:00 Ur Specific [place] 1.022 (1.000-1.030) 10/03/21 01:00 Urine Protein 3+ (Negative) H 10/03/21 01:00 Urine Glucose (UA) Negative (Negative) 10/03/21 01:00 Urine Ketones Negative (Negative) 10/03/21 01:00 Urine Blood 3+ (Negative) H 10/03/21 01:00 Urine Nitrite Negative (Negative) 10/03/21 01:00 Urine Bilirubin Negative (Negative) 10/03/21 01:00 Urine Urobilinogen Negative (Negative) 10/03/21 01:00 Ur Leukocyte Esterase 1+ (Negative) H 10/03/21 01:00 Urine WBC (Auto) 10-30 /hpf (0-5) H 10/03/21 01:00 Urine RBC (Auto) >30 /hpf (0-4) H 10/03/21 01:00 U Hyaline Cast (Auto) 1-5 /lpf (0-5) 10/03/21 01:00 U Epithel Cells (Auto) >30 /lpf (0-5) H 10/03/21 01:00 Urine Bacteria (Auto) Negative (Negative) 10/03/21 01:00 Anaplasma Smear See Comment 10/03/21 06:23 Lyme Disease IgG Ab Positive (Negative) A 10/02/21 22:05 Lyme Disease IgM Ab Negative (Negative) 10/02/21 22:05 SARS-CoV-2, RNA, NAAT NEGATIVE (NEGATIVE) 10/03/21 00:42 Impressions Chest X-Ray 10/02/21 22:42 XR chest 1V portable HISTORY: cough COMPARISON: Chest 10/14/2019. FINDINGS: There are low lung volumes. The heart remains enlarged. No evidence for pulmonary edema. Suspect a trace left pleural effusion. No new focal lung consolidations to suggest pneumonia. Prior cholecystectomy. IMPRESSION: 1. Stable cardiomegaly and a trace left pleural effusion. 2. No evidence for pulmonary edema. ACT 112: Negative or not required by law. Electronically signed by: Derian Kerns M.D. 10/03/2021 9:28 AM Venous Doppler Study 10/02/21 22:42 BILATERAL LOWER EXTREMITY VENOUS DOPPLER HISTORY: Bilateral lower extremity edema COMPARISON STUDY: None. FINDINGS: No evidence for DVT within the right lower extremity. 2.1 x 1.2 x 1.2 cm popliteal cyst is noted on the right. Mild echogenic stranding within the left popliteal vein which is not fully compressible. This favors a chronic nonocclusive DVT. The left common femoral, superficial femoral, left calf vessels appear patent. IMPRESSION: 1. No DVT within the right lower extremity. 2. Small focus of echogenic stranding within the left popliteal vein which is not fully compressible. This favors chronic nonocclusive DVT. 3. No definite evidence for acute DVT within the left lower extremity. ACT 112: Negative or not required by law. Electronically signed by: Derian Kerns M.D. 10/03/2021 9:03 AM Lumbar Spine X-Ray 10/02/21 22:43 XR lumbar spine 2-3V HISTORY: 75 years-old Female low back pain acute low back pain COMPARISON: CT abdomen and pelvis 10/14/2019 TECHNIQUE: 3 views of the lumbar spine FINDINGS: Cholecystectomy. IVC filter noted at the level of L2-L3. Moderate fecal retention of the left hemicolon. Mild osteoarthritis of the hips. Posterior interbody adrianna and screw fusion at L4-S1. The hardware appears intact. Minimal lumbar levoscoliosis. Mild multilevel intervertebral disc space narrowing with associated spondylitic spurring and facet arthrosis is redemonstrated. No acute fracture, subluxation or endplate erosion. IMPRESSION: 1. No acute fracture or subluxation. 2. Prior laminectomy with posterior interbody adrianna and screw fusion at L4-S1. ACT 112: Negative or not required by law. The above report was generated using voice recognition software. It may contain grammatical, syntax or spelling errors. Electronically signed by: Victor M Reyna M.D. 10/03/2021 9:20 AM Lumbar Spine MRI 10/03/21 12:21 MR lumbar spine wo/w con CLINICAL HISTORY: 75 years-old Female with fever, Back hardware, back pain. 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 Mild lumbar levoscoliosis. The study is limited secondary to patient motion artifact and patient body habitus. Prior L4-L5 laminectomy with L4-S1 posterior interbody adrianna and screw fusion redemonstrated. Transitional lumbosacral anatomy with a small S1-S2 disc space. 3 mm anterolisthesis L4 on L5 with 5 mm anterolisthesis L4 on L5 is unchanged. The study is limited secondary to the right lateral aspect of the vertebral bodies only partially imaged on the sagittal series. Mild Modic type I and II endplate degeneration at L2-L3. No acute fracture, subluxation or endplate erosion. The conus medullaris terminates at L1. Signal within the thoracic spinal cord and cauda equina is unremarkable. T12-L1: No central canal or neural foraminal stenosis. L1-L2: Minimal spondylitic spurring with moderate facet arthrosis. No central canal or neural foraminal stenosis. L2-L3: Mild intervertebral disc space narrowing and spondylitic spurring with small posterior disc osteophyte complex. Ligamentum flavum thickening with moderate facet arthrosis. Mild central canal stenosis, AP dimension of the thecal sac measuring 9 mm. Moderate right with [id number] left neural foraminal narrowing. L3-L4: Mild intervertebral disc space narrowing and spondylitic spurring with small posterior disc osteophyte complex. Ligamentum flavum thickening with severe facet arthrosis. Mild central canal stenosis with AP dimension of the thecal sac measuring 9 mm. Severe right with moderate left neural foraminal narrowing. L4-L5: Mild spondylitic spurring. The central canal is patent. Mild stenosis of the neural foramina, right greater than left. L5-S1: Mild spondylitic spurring with posterior annular disc bulge/disc space uncovering.. The central canal and left neural foramen are patent. Mild right foraminal narrowing. No abnormal enhancement. IMPRESSION: 1. Limited exam as above. 2. Prior L4-L5 laminectomy with L4-S1 posterior interbody adrianna and screw fusion. Unchanged chronic grade 1 anterolisthesis L4 on L5 and L5 on S1. 3. Spondylitic spurring with discogenic degeneration and facet arthrosis as detailed above. 4. No acute fracture or abnormal enhancement. ACT 112: Negative or not required by law. The above report was generated using voice recognition software. It may contain grammatical, syntax or spelling errors. Electronically signed by: Victor M Reyna M.D. 10/03/2021 3:[address] 10/03/21 12:23 CT knee RT w con, CT tib/fib RT w con HISTORY: 75 years-old Female fever, local tenderness near knee . Pain of the right knee and lower leg with fever soft tissue infection COMPARISON: Skeletal survey radiographs 03/27/2015 TECHNIQUE: Multiple axial CT images of the right knee, tibia and fibula were obtained following the intravenous ministration of 96 and Optiray 320. A dose lowering technique was used consistent with the principals of ALARA. FINDINGS: KNEE: Right knee arthroplasty with patellar resurfacing. Artifact from the hardware limits the study. Demineralized appearance of the bones. There is no acute fracture, dislocation, osseous erosion or evidence of hardware complication. Small mildly complex right knee joint effusion. Lower extremity varicosities. Atherosclerotic vascular disease. Mild atrophy of the lower thigh musculature. Mild nonspecific subcutaneous edema with skin thickening. No fluid collection. TIBIA/FIBULA: No acute fracture, dislocation or osseous erosion. Demineralized appearance of the bones. No suspicious bone lesions. Osteoarthritis of the ankle and hindfoot. Moderate atherosclerotic vascular disease. Tendons and ligaments are better evaluated by MRI. IMPRESSION: 1. Right knee total joint arthroplasty and patella resurfacing no acute fracture, dislocation or evidence of hardware complication. 2. Small right knee joint effusion. 3. Lower extremity varicosities with mild nonspecific subcutaneous edema. No fluid collection. ACT 112: Negative or not required by law. The above report was generated using voice recognition software. It may contain grammatical, syntax or spelling errors. Electronically signed by: Victor M Reyna M.D. 10/03/2021 1:[address] 10/03/21 12:25 CT knee RT w con, CT tib/fib RT w con HISTORY: 75 years-old Female fever, local tenderness near knee . Pain of the right knee and lower leg with fever soft tissue infection COMPARISON: Skeletal survey radiographs 03/27/2015 TECHNIQUE: Multiple axial CT images of the right knee, tibia and fibula were obtained following the intravenous ministration of 96 and Optiray 320. A dose lowering technique was used consistent with the principals of ALARA. FINDINGS: KNEE: Right knee arthroplasty with patellar resurfacing. Artifact from the hardware limits the study. Demineralized appearance of the bones. There is no acute fracture, dislocation, osseous erosion or evidence of hardware complication. Small mildly complex right knee joint effusion. Lower extremity varicosities. Atherosclerotic vascular disease. Mild atrophy of the lower thigh musculature. Mild nonspecific subcutaneous edema with skin thickening. No fluid collection. TIBIA/FIBULA: No acute fracture, dislocation or osseous erosion. Demineralized appearance of the bones. No suspicious bone lesions. Osteoarthritis of the ankle and hindfoot. Moderate atherosclerotic vascular disease. Tendons and ligaments are better candice luated by MRI. IMPRESSION: 1. Right knee total joint arthroplasty and patella resurfacing no acute fracture, dislocation or evidence of hardware complication. 2. Small right knee joint effusion. 3. Lower extremity varicosities with mild nonspecific subcutaneous edema. No fluid collection. ACT 112: Negative or not required by law. The above report was generated using voice recognition software. It may contain grammatical, syntax or spelling errors. Electronically signed by: Victor M Reyna M.D. 10/03/2021 1:31 PM Knee X-Ray 10/03/21 18:30 XR knee RT 1 or 2V routine HISTORY: 75 years-old Female Right knee pain acute pain of the right knee COMPARISON: Right knee, tibia and fibula CT studies of same day TECHNIQUE: 2 views the right knee FINDINGS: Cortical thickening of the mid to distal diaphyseal femur suggestive of a healed fracture deformity. Right knee total joint arthroplasty and patella resurfacing. Small joint effusion. No acute fracture, dislocation or osseous erosion. Arterial calcifications. IMPRESSION: 1. No acute fracture or dislocation. 2. Cortical thickening of the femoral diaphysis is suggestive of a healed fra cture. 3. Total joint arthroplasty with patellar resurfacing. ACT 112: Negative or not required by law. The above report was generated using voice recognition software. It may contain grammatical, syntax or spelling errors. Electronically signed by: Victor M Reyna M.D. 10/03/2021 7:04 PM
[2021-10-04] MEDS ORDERED: Nursing to Pharmacy Communication SCH (10:45)
[2021-10-04] MEDS: INSULIN ASPART PER UNIT SC SCH ×3 (12:22→20:55)
[2021-10-04] MEDS: cefTRIAXone SODIUM 2,000 MG in DEXTROSE 5% 50 ML IV SCH (12:35)
--- NOTE | 2021-10-04 13:56 | Hospitalist Progress Note ---
Date of Service October 04, 2021 Assessment & Plan (1) Cellulitis of lower extremity: Plan: Presents with fevers, lower back pain, right lower extremity pain, but also with pain all over. Found to have severe hypomagnesemia in the ER, and was febrile. UA contaminated, chest x-ray clear, Lyme IgG positive but IgM negative, anaplasmosis smear negative Procalcitonin elevated at 5, CRP elevated 11.8, lactate had been elevated but is now normal Initially unknown source of infection, but since admission, developed obvious erythema, induration, and tenderness of the right lower extremity consistent with cellulitis Imaging performed to include CT of right lower extremity, lumbar spine MRI, CT of the knee, and knee x-ray CT of right lower extremity shows right knee joint total arthroplasty with small right knee joint effusion, subcutaneous edema but no fluid collection MRI lumbar spine without acute issues Blood cultures-no growth to date -Overall improving since admission symptomatically, no further fevers, and WBC count trending towards normal Continue broad-spectrum antibiotics with ceftriaxone and vancomycin Appreciate orthopedics consultation-they feel less likely that she has a right TKA infection as most of her pain is secondary to cellulitis above and below the knee-no plans for knee joint aspiration at this time -Follow CBC, CRP, CMP, procalcitonin in the morning (2) Fever: Plan: As above, secondary to cellulitis Follow blood cultures Follow final result of Anaplasma DNA PCR although doubtful Lyme titer positive for IgG but negative for IgM, Western blot pending Follow-up on results of Western blot, remains on ceftriaxone Signs and symptoms not consistent with Lyme disease, but continue treatment for such regardless with ceftriaxone until Western blot resulted -DC IV fluids Tylenol as needed for fevers (3) Hypomagnesemia: Plan: Chronic issue. On high doses of oral Mg at home. Thought to be due to medications (PPI, metformin, Lasix). Had seen Dr. Taylor one time, but no follow- up. - Replete Mg with IV while in the hospital. It is now up to normal Her muscle spasms all over are now resolved Follow magnesium level in the morning -Nephrology considered starting amiloride in the past-could start while here- would discuss with nephrology (4) Right knee pain: Plan: Secondary to cellulitis as above Appreciate orthopedics consultation (5) Back pain: Plan: Acute leg and back pain which she describes as "cramping" pain without red-flag symptoms. Ddx includes myalgias from infection, cramping from hypomagnesemia, other MSK pain, discitis/osteomyelitis ruled out with MRI lumbar spine Now completely resolved after treatment for hypomagnesemia and resolution of fever (6) Diabetes mellitus with peripheral vascular disease: Plan: A1c was 6.8% in 06/2021. Blood sugars here are well controlled - Hold oral meds - Sliding scale insulin -Hemoglobin A1c here well controlled at 7.1% (7) Hypertension: Plan: Blood pressures here are normal, however BP seems to swing fairly substantially with reads as low as 100/65 to 225/130 within last year. Holding home lisinopril, furosemide for slight rise in creatinine (8) Liver cirrhosis: Plan: Presumed to be due to GREGORY. Had episode of varices, but EGD in 11/2020 was clear. - Presently compensated - No acute inpatient needs (9) Bilateral lower extremity edema: Plan: Chronic. No diagnosis of CHF per my review of PCP notes. Likely some venous stasis from obesity and cirrhosis. Son and patient both agree it is at baseline (L>R chronically). - Lasix PRN being held for now while hydrating for fevers as above (10) Hyperlipemia: Plan: Stable, chronic medication. Think it is fairly unlikely it is causing elevated AST at present. - Continue statin (11) MGUS (monoclonal gammopathy of unknown significance): Plan: Follows with hematology as an outpatient (12) Chronic deep vein thrombosis (DVT): Plan: Bilateral lower extremity venous Dopplers obtained on admission for leg swelling show chronic nonocclusive DVT in the left popliteal vein She has an IVC filter in place since 2019 for DVT/PE that occurred in the setting of acute GI bleeding She never had the IVC filter removed Would not anticoagulate at this time other than DVT prophylaxis dosing (13) Aortic stenosis: Plan: Mild on echocardiogram in 2019, has not been repeated since then Murmur appears fairly harsh at this time Follow-up as an outpatient (14) Thrombocytopenia: Plan: Platelets typically low, likely related to her known cirrhosis of the liver Lower than usual today at 62 secondary to some hemodilution but also may be re lated to sepsis induced thrombocytopenia Follow CBC Treating cellulitis (15) Thickened endometrium: Plan: This was a previous diagnosis and she is followed by gynecology, has not had any postmenopausal vaginal bleeding Has not had an endometrial biopsy (16) DVT prophylaxis: Plan: Lovenox 40 mg SQ daily -> Believe this is safe given relatively low bleeding risk given clean EGD. Cirrhosis also raises risk of VTE, so benefits > risks. Disposition-continued stay Will need PT OT evaluations Discussed all her care with her grandson at the bedside Admission and Anticipated Discharge Date Admission Date: October 03, 2021 Subjective Patient reports feeling much better today. She is still having some pain through the right medial thigh and knee but it is improved from previous. She is no longer having any lower back pain. No chest pains. She has chronic shortness of breath. No further fever since arrival. Review of Systems Review of Systems: All systems reviewed & are unremarkable except as noted in HPI & below Physical Exam Constitutional: WD/WN, vitals as above Eyes: + anicteric sclerae Neck: trachea midline, no thyromegaly Respiratory: normal respiratory effort, lungs clear to auscultation Cardiovascular: Rate/Rhythm: regular rate and regular rhythm Heart Sounds: + murmur (3/6 SHAWN at RUSB) Extremities: + edema (2+ pitting edema LEs to thigh bilat) Chest (Breasts): Chest: normal inspection of chest Gastrointestinal (Abdomen): normal bowel sounds, soft, nontender, no hepatosplenomegaly Musculoskeletal: Extremities: no cyanosis and no clubbing Skin: Right lower extremity with erythema, induration, and exquisite tenderness to palpation from the medial thigh through the medial knee down through the entire right leg Pain with range of motion of right knee Neurologic: moves all extremities and awake; no focal motor deficits Psychiatric: A+Ox3, euthymic affect Results & Data Results & Data ([facility]) Vital Signs (Past 12 Hours) Vital Signs Temp Pulse Resp BP Pulse Ox 10/04/21 07:47 36.4 C L 66 22 110/67 99 Laboratory Results 10/04/21 10/04/21 10/04/21 Range/Units 20:37 16:56 11:57 WBC (4.8-10.8) K/uL RBC (4.2-5.4) M/uL Hgb (12.0-16.0) g/dL Hct (37-47) % MCV (80-100) fL MCH (25-34) pg MCHC (32-36) g/dL RDW Std Deviation (36.4-46.3) fL RDW Coeff of Leah (11.5-14.5) % Plt Count (130-400) K/uL MPV (7.4-10.4) fL Sodium (136-145) mmol/L Potassium (3.5-5.1) mmol/L Chloride (98-107) mmol/L Carbon Dioxide (21-32) mmol/L Anion Gap (3-11) BUN (6-23) mg/dl Creatinine (0.6-1.2) mg/dl Est Cr Clr Drug Dosing ml/min Est GFR ( Amer) ml/min Est GFR (Non-Af Amer) ml/min BUN/Creatinine Ratio (10-20) Glucose (70-99(Fasting)) mg/dl POC Glucose 105 H 107 H 107 H (70-99) mg/dl Estimat Average Glucose mg/dl Hemoglobin A1c (4.5-5.6) % Lactate (0.4-2.0) mmol/L Calcium (8.5-10.1) mg/dl Magnesium (1.7-2.4) mg/dl Total Bilirubin (0.2-1.0) mg/dl AST (13-39) U/L ALT (7-52) U/L Alkaline Phosphatase (34-104) U/L Total Protein (6.0-8.3) gm/dl Albumin (3.4-5.0) gm/dl Globulin (2.5-4.0) gm/dl Albumin/Globulin Ratio (0.9-2) 10/04/21 10/04/21 10/04/21 Range/Units 06:09 05:52 05:52 WBC (4.8-10.8) K/uL RBC (4.2-5.4) M/uL Hgb (12.0-16.0) g/dL Hct (37-47) % MCV (80-100) fL MCH (25-34) pg MCHC (32-36) g/dL RDW Std Deviation (36.4-46.3) fL RDW Coeff of Leah (11.5-14.5) % Plt Count (130-400) K/uL MPV (7.4-10.4) fL Sodium 133 L (136-145) mmol/L Potassium 4.1 (3.5-5.1) mmol/L Chloride 103 (98-107) mmol/L Carbon Dioxide 25 (21-32) mmol/L Anion Gap 5 (3-11) BUN 44 H (6-23) mg/dl Creatinine 1.25 H D (0.6-1.2) mg/dl Est Cr Clr Drug Dosing 41.2 ml/min Est GFR ( Amer) 47.7 ml/min Est GFR (Non-Af Amer) 41.2 ml/min BUN/Creatinine Ratio 35.2 H (10-20) Glucose 110 H (70-99(Fasting)) mg/dl POC Glucose 106 H (70-99) mg/dl Estimat Average Glucose mg/dl Hemoglobin A1c (4.5-5.6) % Lactate 0.8 (0.4-2.0) mmol/L Calcium 8.0 L (8.5-10.1) mg/dl Magnesium 2.0 (1.7-2.4) mg/dl Total Bilirubin 0.4 (0.2-1.0) mg/dl AST 33 (13-39) U/L ALT 21 (7-52) U/L Alkaline Phosphatase 46 (34-104) U/L Total Protein 5.5 L D (6.0-8.3) gm/dl Albumin 2.3 L (3.4-5.0) gm/dl Globulin 3.2 (2.5-4.0) gm/dl Albumin/Globulin Ratio 0.7 L (0.9-2) 10/04/21 10/04/21 10/04/21 Range/Units 05:52 05:52 02:23 WBC 6.78 (4.8-10.8) K/uL RBC 3.56 L (4.2-5.4) M/uL Hgb 11.2 L (12.0-16.0) g/dL Hct 33.2 L (37-47) % MCV 93.3 (80-100) fL MCH 31.5 (25-34) pg MCHC 33.7 (32-36) g/dL RDW Std Deviation 50.8 H (36.4-46.3) fL RDW Coeff of Leah 14.9 H (11.5-14.5) % Plt Count 64 L (130-400) K/uL MPV 10.1 (7.4-10.4) fL Sodium (136-145) mmol/L Potassium (3.5-5.1) mmol/L Chloride (98-107) mmol/L Carbon Dioxide (21-32) mmol/L Anion Gap (3-11) BUN (6-23) mg/dl Creatinine (0.6-1.2) mg/dl Est Cr Clr Drug Dosing ml/min Est GFR ( Amer) ml/min Est GFR (Non-Af Amer) ml/min BUN/Creatinine Ratio (10-20) Glucose (70-99(Fasting)) mg/dl POC Glucose 123 H (70-99) mg/dl Estimat Average Glucose 157 mg/dl Hemoglobin A1c 7.1 H (4.5-5.6) % Lactate (0.4-2.0) mmol/L Calcium (8.5-10.1) mg/dl Magnesium (1.7-2.4) mg/dl Total Bilirubin (0.2-1.0) mg/dl AST (13-39) U/L ALT (7-52) U/L Alkaline Phosphatase (34-104) U/L Total Protein (6.0-8.3) gm/dl Albumin (3.4-5.0) gm/dl Globulin (2.5-4.0) gm/dl Albumin/Globulin Ratio (0.9-2) PG Care Time/CCT Total # of Minutes Spent Total Time Spent with Patient: Total time spent is greater than 50% in coordination of care (as documented) at patient's floor/unit and/or counseling patient: Coding Level of Care Code 32294 Subseq Hosp Care Lvl 3 Diagnoses Back pain M54.9 Fever R50.9 Hypomagnesemia E83.42 Diabetes mellitus with peripheral vascular disease E11.51 Hypertension I10 Liver cirrhosis K74.60 Bilateral lower extremity edema R60.0 Hyperlipemia E78.5 DVT prophylaxis Z29.9 Cellulitis of lower extremity L03.119 Thickened endometrium R93.89 MGUS (monoclonal gammopathy of unknown significance) D47.2 Chronic deep vein thrombosis (DVT) I82.509 Aortic stenosis I35.0 Right knee pain M25.561 Thrombocytopenia D69.6
--- NOTE | 2021-10-04 18:28 | Orthopedic Consultation ---
Date of Consultation October 04, 2021 Assessment & Plan (1) Right knee pain: X-rays and CT scan reviewed. No obvious fractures/dislocations. Small right knee effusion noted. WBC count normal, C-reactive protein 11. With her current exam, I feel less likely that she has a right TKA infection. Most of her pain seems to be coming from her cellulitis below the knee that travels proximally. She has some very mild tenderness on palpation of the distal knee and no pain on palpation over the suprapatellar pouch or patella itself. Does have some noted osteopenia of the tibia in the anterior region questioning early stages of loosening of the tibial component. Dr. Daniels will see the patient later today. For now, I don't feel knee aspiration is needed but will defer to Dr. Daniels after his exam. History of Present Illness Reason for Consultation: Right knee pain Attending Physician: Viviana Ibarra MD Allergies Allergy/AdvReac Type Severity Reaction Status Date / Time No Known Allergies Allergy Verified 10/02/21 22:16 Home Medications Medication Instructions Recorded Confirmed Type cholecalciferol (vitamin D3) 50 2,000 unit PO QAM 07/01/18 10/02/21 History mcg (2,000 unit) capsule (Vitamin D3) docusate sodium 100 mg capsule 100 mg PO BID PRN 07/01/18 10/02/21 History multivitamin 1 tab PO QAM 10/14/19 10/02/21 History vitamin E 400 unit capsule 400 unit PO QAM cap 08/14/20 10/02/21 History furosemide 40 mg tablet 40 mg PO DAILY PRN #30 tab 12/29/20 10/02/21 Rx magnesium chloride 71.5 mg 71.5 mg PO TID #270 tab 04/13/21 10/02/21 Rx (magnesium chloride) tablet,delayed release (Slow-Mag) atorvastatin 10 mg tablet 10 mg PO HS #90 tab 08/12/21 10/02/21 Rx glimepiride 1 mg tablet 1 mg PO BID #180 tab 08/12/21 10/02/21 Rx lisinopril 10 mg tablet 10 mg PO HS #90 tab 08/12/21 10/02/21 Rx metformin 500 mg tablet 500 mg PO QAM 10/02/21 10/02/21 History Patient History Medical History (Updated 10/04/21 @ 13:55 by Viviana Ibarra MD) Acute DVT (deep venous thrombosis) 2019> no known cause > Filter to right groin 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 Chronic back pain Chronic deep vein thrombosis (DVT) 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 Diverticular hemorrhage resolved Esophageal varices determined by endoscopy GERD (gastroesophageal reflux disease) GI bleed none at present Hypertension Migraine Monoclonal gammopathy Obesity Osteoarthritis Pulmonary embolism 2019 > no known cause > Filter to right groin Vertigo Surgical History History of bilateral breast reduction surgery History of bilateral cataract extraction History of carpal tunnel release of both wrists History of section x3 History of colonoscopy History of dilatation and curettage History of esophagogastroduodenoscopy (EGD) History of laparoscopic cholecystectomy History of lumbar spinal fusion hardware in place History of tonsillectomy History of tooth extraction all teeth History of total left knee replacement (TKR) History of total right knee replacement (TKR) Family History Mother Family history of diabetes mellitus Brother Family history of diabetes mellitus 3 brothers Colorectal cancer Myocardial infarction x 2 Father Myocardial infarction Denies family history of Ovarian cancer Prostate cancer Breast cancer Social History Smoking Status: Former smoker Cigarettes Per Day: "Not many".; Second Hand Exposure: No; Hx Alcohol Use: No Hx Substance Use: No Preferred Language: Portuguese Communication Ability: Effective 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 Feels Safe at Home: Yes Childhood Exposure to Second-Hand Smoke: Yes caffeine: Yes Dental Care, Regularly: No Physical Activity Frequency: Does not Exercise Seatbelt Use: always Sunscreen Use: No Assistive Devices: Walker Results & Data ([facility]) Vital Signs (Past 12 Hours) Vital Signs Temp Pulse Resp BP Pulse Ox 10/04/21 15:49 36.5 C 76 22 159/72 H 98 10/04/21 07:47 36.4 C L 66 22 110/67 99
[2021-10-04] MEDS: ATORVASTATIN 10 MG TAB PO SCH (20:55)
[2021-10-05] MEDS: CHOLECALCIFEROL 1,000 UNITS 25 MCG TAB PO SCH (07:41)
[2021-10-05] MEDS: LIDOCAINE 5% 1 PATCH TD SCH (07:42)
[2021-10-05] MEDS: ENOXAPARIN INJ 40 MG/0.4 ML SYR SQ SCH (07:42)
[2021-10-05] MEDS: INSULIN ASPART PER UNIT SC SCH ×4 (08:32→22:37)
[2021-10-05 09:39] LABS: Hematocrit (blood only) 36.2 % (37-47); Mean Corpuscular Hemoglobin 30.7 pg (25-34); Mean Corpuscular Hgb Conc 33.1 g/dL (32-36); Mean Corpuscular Volume 92.6 fL (80-100); RDW Coefficient of Variation 15.2 % (11.5-14.5); RDW Standard Deviation 51.9 fL (36.4-46.3); Red Blood Count 3.91 M/uL (4.2-5.4)
[2021-10-05 09:51] LABS: Mean Platelet Volume 10.4 fL (7.4-10.4); Platelet Count 94 K/uL (130-400)
[2021-10-05 10:03] LABS: Albumin Globulin Ratio 0.7 (0.9-2); Albumin Level 2.6 gm/dl (3.4-5.0); Bilirubin,Total 0.3 mg/dl (0.2-1.0); C Reactive Protein 12.25 mg/dl (0-0.5); Calcium 7.6 mg/dl (8.5-10.1); Creatinine Clr Calc Pharmacy 34.3 ml/min; Est GFR (African American) 38.3 ml/min; Globulin 3.7 gm/dl (2.5-4.0); Potassium 4.4 mmol/L (3.5-5.1); Total Protein 6.3 gm/dl (6.0-8.3)
[2021-10-05 10:08] LABS: Basophils # (auto) 0.01 K/uL (0-0.2); Basophils % (auto) 0.2 %; Eosinophils # (auto) 0.12 K/uL (0-0.5); Eosinophils % (auto) 2.4 %; Lymphocytes # (auto) 1.13 K/uL (1.2-3.4); Lymphocytes % (auto) 22.2 %; Monocytes # (auto) 0.45 K/uL (0.11-0.59); Monocytes % (auto) 8.8 %; Neutrophils # (auto) 3.39 K/uL (1.4-6.5); Neutrophils % (auto) 66.4 %
--- NOTE | 2021-10-05 10:13 | Pharmacy Report ---
Pharmacy Vanc AUC Short Note - Date of Service October 05, 2021 - Assessment & Plan Assessment 76 year old F receiving vancomycin and rocephin empirically for cellulitis/possible joint infection Day # 3 of antimicrobial therapy. Plan Vancomycin * AUC/NED is the preferred PK/PD target for vancomycin * AUC guided dosing is effective and associated with decreased risk of nephrotoxicity compared to traditional trough targets * Trough level came back at ~15 mcg/ml. This vancomycin dosing is expected to achieve target AUC/NED of 400-600 mg/L.hr and may be associated with a 9 % risk of nephrotoxicity * Continue vancomycin 1 gm iv q 24 hr dosing for now, will recheck another level in next 2 days if continued Pharmacy will continue to follow and will adjust dose/frequency as necessary. Thank you.
[2021-10-05] MEDS: VANCOMYCIN HCL 1,000 MG in SODIUM CHLORIDE 0.9% 250 ML IV SCH (10:37)
[2021-10-05] MEDS: cefTRIAXone SODIUM 2,000 MG in DEXTROSE 5% 50 ML IV SCH (12:16)
--- NOTE | 2021-10-05 15:52 | Hospitalist Progress Note ---
Date of Service October 05, 2021 Assessment & Plan (1) Cellulitis of lower extremity: Plan: Right linder. Seen by ortho as there was some concern for knee joint involvement, but they did not feel joint or bursa were involved. - Blood cultures from 10/02 still negative. - Stop vanc given increase in Cr and low concern for MRSA - Continue ceftriaxone (2) Fever: Plan: As above, secondary to cellulitis (3) Hypomagnesemia: Plan: Chronic issue. On high doses of oral Mg at home. Thought to be due to medications (PPI, metformin, Lasix). Had seen Dr. Taylor one time, but no follow- up. - Replete Mg with IV while in the hospital. It is now up to normal (4) Right knee pain: Plan: Secondary to cellulitis as above - Appreciate orthopedics consultation (5) Back pain: Plan: Acute leg and back pain which she describes as "cramping" pain without red-flag symptoms. Ddx includes myalgias from infection, cramping from hypomagnesemia, other MSK pain, discitis/osteomyelitis ruled out with MRI lumbar spine -> Now completely resolved after treatment for hypomagnesemia and resolution of fever (6) Diabetes mellitus with peripheral vascular disease: Plan: A1c was 6.8% in 06/2021. Blood sugars here are well controlled - Hold oral meds - Sliding scale insulin -Hemoglobin A1c here well controlled at 7.1% (7) Hypertension: Plan: Blood pressures here are slightly high at 160/80. However BP seems to swing fairly substantially with reads as low as 100/65 to 225/130 within last year. - Holding home lisinopril, furosemide for slight rise in creatinine (8) Liver cirrhosis: Plan: Presumed to be due to GREGORY. Had episode of varices, but EGD in 11/2020 was clear. - Presently compensated - No acute inpatient needs (9) Bilateral lower extremity edema: Plan: Chronic. No diagnosis of CHF per my review of PCP notes. Likely some venous stasis from obesity and cirrhosis. Son and patient both agree it is at baseline (L>R chronically). - Lasix PRN being held for now while hydrating for fevers as above (10) Hyperlipemia: Plan: Stable, chronic medication. Think it is fairly unlikely it is causing elevated AST at present. - Continue statin (11) MGUS (monoclonal gammopathy of unknown significance): Plan: Follows with hematology as an outpatient. (12) Chronic deep vein thrombosis (DVT): Plan: Bilateral lower extremity venous Dopplers obtained on admission for leg swelling show chronic nonocclusive DVT in the left popliteal vein. 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 She never had the IVC filter removed. - Would not anticoagulate at this time other than DVT prophylaxis dosing (13) Aortic stenosis: Plan: Mild on echocardiogram in 2019, has not been repeated since then. Murmur appears fairly harsh at this time. - Follow-up as an outpatient (14) Thrombocytopenia: Plan: Platelets typically low, likely related to her known cirrhosis of the liver. - F/u in 1-2 weeks after hospital discharge. (15) Thickened endometrium: Plan: This was a previous diagnosis and she is followed by gynecology, has not had any postmenopausal vaginal bleeding. - Has not had an endometrial biopsy (16) DVT prophylaxis: Plan: Lovenox 40 mg SQ daily -> Believe this is safe given relatively low bleeding risk given clean EGD. Cirrhosis also raises risk of VTE, so benefits > risks. Admission and Anticipated Discharge Date Admission Date: October 03, 2021 Subjective Doing better today even. No major issues. Feels leg is less painful. Reports no fevers/chills, chest pain, shortness of breath, abdominal pain, nausea, or vomiting. Physical Exam Constitutional: WD/WN, vitals as above Eyes: EOM intact bilaterally; no conjunctival abnormality ENMT: external ear and nose normal, oropharynx normal Neck: trachea midline, no thyromegaly normal visual inspection Respiratory: normal respiratory effort, lungs clear to auscultation no respiratory distress Cardiovascular: RRR, no murmur, no edema Extremities: + edema (L>R, this is chronic per patient and son) Gastrointestinal (Abdomen): Inspection/Auscultation: abdomen normal to inspection; abdomen not distended Musculoskeletal: no cyanosis or clubbing, extremities motor strength 5/5 Spine: lumbar spine normal to inspection (Tender to palpation in midline spine) Skin: + erythema (Right linder) Neurologic: moves all extremities and awake Psychiatric: Orientation: alert, oriented to person and cooperative Results & Data Results & Data ([facility]) Vital Signs (Past 12 Hours) Vital Signs Temp Pulse Resp BP Pulse Ox 10/05/21 15:43 36.5 C 69 18 158/81 H 99 10/05/21 07:20 36.6 C 64 18 137/83 98 PG Care Time/CCT Total # of Minutes Spent Total Time Spent with Patient: Total time spent is greater than 50% in coordination of care (as documented) at patient's floor/unit and/or counseling patient: Coding Level of Care Code 29493 Subseq Hosp Care Lvl 2 Diagnoses Cellulitis of lower extremity L03.119 Fever R50.9 Hypomagnesemia E83.42 Right knee pain M25.561 Back pain M54.9 Diabetes mellitus with peripheral vascular disease E11.51 Hypertension I10 Liver cirrhosis K74.60 Bilateral lower extremity edema R60.0 Hyperlipemia E78.5 MGUS (monoclonal gammopathy of unknown significance) D47.2 Chronic deep vein thrombosis (DVT) I82.509 Aortic stenosis I35.0 Thrombocytopenia D69.6 Thickened endometrium R93.89 DVT prophylaxis Z29.9
[2021-10-05] MEDS: ATORVASTATIN 10 MG TAB PO SCH (21:20)
[2021-10-06 01:32] LABS: 18KDIGG Band NON-REACTIVE; 23KDIGG Band NON-REACTIVE; 23KDIGM Band NON-REACTIVE; 28KDIGG Band REACTIVE; 30KDIGG Band NON-REACTIVE; 39KDIGG Band REACTIVE; 39KDIGM Band NON-REACTIVE; 41KDIGG Band REACTIVE; 41KDIGM Band NON-REACTIVE; 45KDIGG Band NON-REACTIVE; 58KDIGG Band REACTIVE; 66KDIGG Band REACTIVE; 93KDIGG Band NON-REACTIVE; Lyme Antibodies, WB IgG POSITIVE (NEGATIVE); Lyme Antibodies, WB IgM NEGATIVE (NEGATIVE)
[2021-10-06 07:18] LABS: Basophils # (auto) 0.01 K/uL (0-0.2); Basophils % (auto) 0.2 %; Eosinophils # (auto) 0.15 K/uL (0-0.5); Eosinophils % (auto) 3.6 %; Hematocrit (blood only) 35.4 % (37-47); Hemoglobin 11.8 g/dL (12.0-16.0); Immature Granulocytes # (auto) 0.01 K/uL (0.00-0.02); Immature Granulocytes % (auto) 0.2 %; Lymphocytes # (auto) 1.21 K/uL (1.2-3.4); Lymphocytes % (auto) 28.8 %; Mean Corpuscular Hemoglobin 31.1 pg (25-34); Mean Corpuscular Hgb Conc 33.3 g/dL (32-36); Mean Corpuscular Volume 93.4 fL (80-100); Mean Platelet Volume 10.2 fL (7.4-10.4); Monocytes # (auto) 0.41 K/uL (0.11-0.59); Monocytes % (auto) 9.8 %; Neutrophils # (auto) 2.41 K/uL (1.4-6.5); Neutrophils % (auto) 57.4 %; Platelet Count 106 K/uL (130-400); RDW Coefficient of Variation 15.1 % (11.5-14.5); RDW Standard Deviation 51.8 fL (36.4-46.3); Red Blood Count 3.79 M/uL (4.2-5.4)
[2021-10-06 07:47] LABS: Chol HDL Ratio 4.4 (0-5)
[2021-10-06 07:49] LABS: Albumin Globulin Ratio 0.8 (0.9-2); Albumin Level 2.7 gm/dl (3.4-5.0); BUN Creatinine Ratio 37.6 (10-20); Bilirubin,Total 0.3 mg/dl (0.2-1.0); Calcium 8.3 mg/dl (8.5-10.1); Creatinine Clr Calc Pharmacy 36.5 ml/min; Est GFR (African American) 41.3 ml/min; Est GFR (Non-African American) 35.6 ml/min; Globulin 3.6 gm/dl (2.5-4.0); Immunoglobulin A 674.4 mg/dl (70-400); Immunoglobulin M 146.3 mg/dl (45-281); Potassium 4.8 mmol/L (3.5-5.1); Total Protein 6.3 gm/dl (6.0-8.3)
[2021-10-06 08:00] LABS: Ferritin 83.5 ng/ml (8-388)
[2021-10-06] MEDS: ENOXAPARIN INJ 40 MG/0.4 ML SYR SQ SCH (08:16)
[2021-10-06] MEDS: LIDOCAINE 5% 1 PATCH TD SCH (08:16)
[2021-10-06] MEDS: CHOLECALCIFEROL 1,000 UNITS 25 MCG TAB PO SCH (08:16)
[2021-10-06] MEDS: INSULIN ASPART PER UNIT SC SCH ×2 (08:58→12:52)
[2021-10-06] MEDS ORDERED: cephALEXin 500 MG CAP PO ONE (12:07)
[2021-10-06] MEDS: cefTRIAXone SODIUM 2,000 MG in DEXTROSE 5% 50 ML IV SCH (12:09)
--- NOTE | 2021-10-06 21:04 | Discharge Summary ---
Date of Service October 06, 2021 Admission HPI Per Admitting Provider 75yo F w/ hx of multiple joint issues, HTN, DM, and hypomagnesemia who presents with leg and lower back pain. She reports that for at least 2 days, she has had increased leg and lower back pain. She reports the pain in the legs as a cramping pain throughout the legs. In the back, she describes it as a dull, aching back pain in the lower lumbar region. She initially was taking Tylenol for this which "took the edge off," but over the last day, it has gotten worse to the point that she doesn't feel it is effective. She also notes that she has had subjective fevers and chills at home, though she has not checked her temperature. She notes some nausea, but no vomiting. No changes in urination. She has some baseline sinus congestion and cough in the mornings, but this hasn't changed. Her son was sick earlier in the week, though he just felt "run down." She reports she "hibernates" in the winter and does not go outside. She does have several indoor/outdoor cats, but has not noticed any ticks on them. She has not had any known tick bites either. Principal Diagnosis RLE cellulitis Cramping from hypomagnesemia Discharge Exam Constitutional WD/WN, vitals as above Eyes EOM intact bilaterally; no conjunctival abnormality ENMT external ear and nose normal, oropharynx normal Neck trachea midline, no thyromegaly normal visual inspection Respiratory normal respiratory effort, lungs clear to auscultation no respiratory distress Cardiovascular RRR, no murmur, no edema Extremities: + edema (L>R, this is chronic per patient and son) Gastrointestinal (Abdomen) Inspection/Auscultation: abdomen normal to inspection; abdomen not distended Musculoskeletal no cyanosis or clubbing, extremities motor strength 5/5 Spine: lumbar spine normal to inspection (Tender to palpation in midline spine) Skin no rashes, warm and dry + erythema (Right linder) Neurologic moves all extremities and awake Psychiatric Orientation: alert, oriented to person and cooperative Discharge Data Allergies Allergy/AdvReac Type Severity Reaction Status Date / Time No Known Allergies Allergy Verified 10/02/21 22:16 Consultations 10/03/21 03:12 ED Decision to Admit Stat 10/03/21 16:49 Consult Orthopedic Surgery Routine Ordered Studies 10/02/21 22:42 US venous doppler LE BI Urgent 10/03/21 12:21 MR lumbar spine wo/w con Stat 10/03/21 12:23 CT tib/fib RT w con Stat 10/03/21 12:25 CT knee RT w con Stat Hospital Course (1) Cellulitis of lower extremity: Right linder. Seen by ortho as there was some concern for knee joint involvement, but they did not feel joint or bursa were involved. - Blood cultures from 10/02 still negative. - Was on vanc/ceftriaxone, but stopped vanc on 10/05 given increase in Cr and low concern for MRSA - Continued ceftriaxone while inpatient -> Moved to Keflex on discharge x 5 more days. Will see PCP and Oncology before finishing abx to ensure resolution of cellulitis. (2) EMY (acute kidney injury): Baseline Cr ~0.9. Catherine to max of 1.5, I believe due to vancomycin and mild dehydration from illness. - Downtrending to 1.4 on 10/06. - Instructed to hold lisinopril, Lasix, and metformin until seen by PCP (3) Fever: As above, secondary to cellulitis (4) Hypomagnesemia: Chronic issue. On high doses of oral Mg at home. Thought to be due to medications (PPI, metformin, Lasix). Had seen Dr. Taylor one time, but no follow- up. - Repleted Mg with IV while in the hospital. It is now up to normal on discharge. (5) Right knee pain: Secondary to cellulitis as above - Appreciate orthopedics consultation (6) Back pain: Acute leg and back pain which she describes as "cramping" pain without red-flag symptoms. Ddx includes myalgias from infection, cramping from hypomagnesemia, other MSK pain, discitis/osteomyelitis ruled out with MRI lumbar spine -> Now completely resolved after treatment for hypomagnesemia and resolution of fever (7) Diabetes mellitus with peripheral vascular disease: A1c was 6.8% in 06/2021. Blood sugars here are well controlled - Hold oral meds - Sliding scale insulin -Hemoglobin A1c here well controlled at 7.1% (8) Hypertension: Blood pressures here are slightly high at 160/80. However BP seems to swing fairly substantially with reads as low as 100/65 to 225/130 within last year. - Holding home lisinopril & furosemide for slight rise in creatinine -> Can restart by weekend if Cr downtrending and approved by PCP. (9) Liver cirrhosis: Presumed to be due to GREGORY. Had episode of varices, but EGD in 11/2020 was clear. - Presently compensated - No acute inpatient needs (10) Bilateral lower extremity edema: Chronic. No diagnosis of CHF per my review of PCP notes. Likely some venous stasis from obesity and cirrhosis. Son and patient both agree it is at baseline (L>R chronically). - Lasix PRN being held for now with EMY (11) Hyperlipemia: Stable, chronic medication. Think it is fairly unlikely it is causing elevated AST at present. - Continue statin (12) MGUS (monoclonal gammopathy of unknown significance): Follows with hematology as an outpatient. (13) Chronic deep vein thrombosis (DVT): Bilateral lower extremity venous Dopplers obtained on admission for leg swelling show chronic nonocclusive DVT in the left popliteal vein. 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 She never had the IVC filter removed. - Would not anticoagulate at this time other than DVT prophylaxis dosing (14) Aortic stenosis: Mild on echocardiogram in 2019, has not been repeated since then. Murmur appears fairly harsh at this time. - Follow-up as an outpatient (15) Thrombocytopenia: Platelets typically low, likely related to her known cirrhosis of the liver. - F/u in 1-2 weeks after hospital discharge. (16) Thickened endometrium: This was a previous diagnosis and she is followed by gynecology, has not h ad any postmenopausal vaginal bleeding. - Has not had an endometrial biopsy (17) DVT prophylaxis: Lovenox 40 mg SQ daily -> Believe this is safe given relatively low bleeding risk given clean EGD. Cirrhosis also raises risk of VTE, so benefits > risks. Total Time Total Time Spent Total Time Spent (In Minutes): 35 Discharge Plan Discharge Items Patient Disposition: Home - Self-Care Reason For Visit: BACK AND LEG PAIN, FEVER Discharge Diagnosis: Right leg cellulitis Activity: Resume your previous activity Non-emergency contact: Primary Care Provider Call non-emergency contact if: your symptoms worsen Follow-up/Referrals: Franko Monk DO [Primary Care Provider] - 10/08/21 2:30 pm Diet: Carb Consistent or DM2 and Heart Healthy Addtl Attending Provider Instructions: Ms. Dudley, You were admitted to the hospital with back and leg pain. I think the back and leg "cramping" pain was from low magnesium. We gave you some through the IV, and it is now normal. Please continue your home magnesium. You also had a fever, and it turned out had a skin infection on the right leg. This improved with antibiotics, and we will send you home on 5 more days of antibiotics. Please see your PCP this Monday to be sure it is still healing well and you are not having any more fevers. One of the IV antibiotics caused your kidneys to get a bit upset. It is already returning to normal, but not quite all the way back yet. Please hold the following medications until you see your PCP on Monday: * Lisinopril * Furosemide * Metformin If your PCP gives you approval, you can restart all of these by the weekend. Pending Studies at Discharge: No Stand-Alone Forms: My [facility], Smoking Cessation Medications and DC Order Prescriptions: New cephalexin 500 mg capsule 500 mg PO QID 5 Days Qty: 20 RF: 0 Continued atorvastatin 10 mg tablet 10 mg PO HS Qty: 90 RF: 3 glimepiride 1 mg tablet 1 mg PO BID Qty: 180 RF: 3 lisinopril 10 mg tablet 10 mg PO HS Qty: 90 RF: 3 Slow-Mag 71.5 mg tablet,delayed release (DR/EC) 71.5 mg PO TID Qty: 270 RF: 3 furosemide 40 mg tablet 40 mg PO DAILY PRN (Reason: edema) Qty: 30 RF: 5 docusate sodium 100 mg Capsule 100 mg PO BID PRN (Reason: Constipation) RF: 0 cholecalciferol (vitamin D3) [Vitamin D3] 2,000 unit Capsule 2,000 unit PO QAM RF: 0 multivitamin Tablet 1 tab PO QAM RF: 0 vitamin E 400 unit capsule 400 unit PO QAM RF: 0 metformin 500 mg tablet 500 mg PO QAM RF: 0 Discharge Orders: Discharge Order (Routine); Ordered 10/06/21 Ordered By: Burt Molina Admission Data Admit Date/Time: 10/03/21 04:09 Attending Provider: Burt Molina Admit Provider: Burt Molina Primary Care Provider: Franko Monk Other Providers: Victor M Daniels Other Interventions: Discharge Summary Assessment (RN) Last Done: 10/06/21 12:11 Coding Level of Care Code D/C DAY MANAGEMENT >30 MINS Diagnoses Cellulitis of lower extremity L03.119 Fever R50.9 Hypomagnesemia E83.42 Right knee pain M25.561 Back pain M54.9 Diabetes mellitus with peripheral vascular disease E11.51 Hypertension I10 Liver cirrhosis K74.60 Bilateral lower extremity edema R60.0 Hyperlipemia E78.5 MGUS (monoclonal gammopathy of unknown significance) D47.2 Chronic deep vein thrombosis (DVT) I82.509 Aortic stenosis I35.0 Thrombocytopenia D69.6 Thickened endometrium R93.89 DVT prophylaxis Z29.9 EMY (acute kidney injury) N17.9
[2021-10-11 08:28] LABS: Albumin 2.4 g/dL (3.8-4.8); Alpha 1 Globulin 0.3 g/dL (0.2-0.3); Alpha 2 Globulin 0.8 g/dL (0.5-0.9); Beta-1-Globulin 0.5 g/dL (0.4-0.6); Beta-2-Globulin 0.7 g/dL (0.2-0.5); Gamma Globulin 1.4 g/dL (0.8-1.7); Monoclonal Protein Band 1 DNR g/dL (NONE DETECTED); Monoclonal Protein Band 2 DNR g/dL (NONE DETECTED); Monoclonal Protein Band 3 DNR g/dL (NONE DETECTED); Viscosity, Serum 1.6 rel to H2O (1.5-1.9)
== END 2021-10-06 15:06 | disposition home or self-care (01) ==
LOC: ED 21:35 → INTOOBSV 10-03 04:09 → SUATTDRO 10-03 04:09 → 3E 10-03 04:09

== ENCOUNTER 2022-02-28 19:53 | Inpatient (IN) ==
--- NOTE | 2022-02-28 20:00 | Emergency Department Note ---
Impression & Plan Fall, Back pain, Hyponatremia, Elevated troponin I level ED Provider Note NAME: JEFFREY TOVAR AGE: 76 SEX: F : 1945 ARRIVES VIA: Ambulance INFORMANT: Patient, ED PROVIDER(S): Navjot Ritchie MD Chief Complaint: Fall, weakness, back pain HPI: Patient presents due to concern for fall weakness and back pain. The patient states that she has been feeling weak for approximately 1 week in duration and is gotten worse over the last several days. The patient was trying to get up off the commode when she is being assisted by her family slipped and fell onto her buttocks and struck her back on the bathtub. Patient denies any fevers or chills. The patient denies any nausea or vomiting. She does not mer luna that she struck her head. The patient denies any neck pain. Patient states that she has thoracic and lumbar pain. The patient describes it as sharp and nonradiating. Patient does have a prior history of back surgery. Patient did not take anything prior to arrival. Patient states that her pain is worse with palpation or movement. Patient denies any numbness tingling or focal weakness. Moving her legs does seem to make her pain worse. ROS: See HPI for pertinent positives and negatives. A total of 10 systems were reviewed and otherwise negative. Past medical history: See below Surgical history: See below Social history: See below Physical Exam: GENERAL: NAD, wearing a mask, non-toxic. EYE EXAM: Normal conjunctiva. PERRL, no anisocoria and EOM's grossly intact w/o pain. NECK: Supple, no nuchal rigidity, no adenopathy, non-tender. No signs of meningismus. FROM of the neck with good chin to chest and neck extension. No stridor. LUNGS: Clear to auscultation. Normal chest wall mechanics. HEART: NSR, no MRG. ABDOMEN: Abdomen soft, non-tender, normo-active bowel sounds, no masses, no rebound or guarding. BACK: No CVA TTP. SKIN: No rashes and no bruising. UPPER EXTREMITIES: Upper extremities are grossly normal. LOWER EXTREMITIES: Grossly normal, no edema. NEURO EXAM: A&O x3, cranial nerves II-XII grossly intact, normal speech, moves all 4 extremities. Differential diagnoses: Fracture, dislocation, contusion, intra-abdominal, pneumothorax, intrathoracic, intracranial, neurologic, compartment syndrome, rhabdomyolysis, as well as other pathologies. Course: Patient was seen and evaluated the bedside. Full history physical exam was performed. EKG interpreted by me Sinus with sinus arrhythmia, rate of 94, wide QRS, left axis deviation, right bundle branch block pattern. Morphology grossly unchanged for comparison October 02, 2021. Patient's right bundle is old. Imaging Studies: See Below Cardiac monitoring: An order was placed for continuous cardiac monitoring. The monitor shows a rate of 82 with sinus rhythm. MDM: Patient presented due to concern for fall and weakness. Blood work is obtained the patient was treated symptomatically for her back pain with IV fentanyl. Patient did have CT of the head lumbar spine and thoracic spine as well as abdo men pelvis. Work showed a normal white count H&H with mild thrombocytopenia at 75. The patient does have intermittent thrombocytopenia. The patient's kidney function slightly worse compared to prior. The patient was ordered 500 cc bolus. Clinically the patient does appear dry but given the patient's Lasix use as well as history of aortic stenosis will hydrate cautiously. Patient does have mild hyponatremia and hyperkalemia at 129 and 5.2 respectively. Patient's troponin is elevated at 51. EKG with no obvious morphologic changes from comparison completed in September. Patient CTs do not show significant acute findings. The patient does have old anterior wedge deformity seen at the mid to lower thoracic spine. Patient's lumbar spine CT showed her internal fixation with degenerative disc disease. No acute pathology. Head CT was negative. Patient CT abdomen pelvis showed no acute intra-abdominal or pelvic abnormality. Diverticulosis noted without diverticulitis. Patient was noted to have some mild hypoxemia at 88%. I did speak with nursing who thought that this was related to the patient's recent fentanyl that she received for her pain. The patient was resting comfortably/sleeping the patient did not have any desaturations noted by nursing. Patient does not complain of any chest pains or shortness of breath. Patient did have urine and serum awesome's ordered in addition to urine electrolytes. I did speak with the on-call hospitalist Dr. Molina and the patient was admitted to the medicine service. 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 Chronic back pain Chronic deep vein thrombosis (DVT) 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 Diverticular hemorrhage resolved Esophageal varices determined by endoscopy Fever GERD (gastroesophageal reflux disease) GI bleed none at present Hyperlipemia Lower leg edema Migraine Monoclonal gammopathy Obesity Osteoarthritis Proteinuria Pulmonary embolism 2019 > no known cause > Filter to right groin Thrombocytopenia Vertigo Surgical History History of bilateral breast reduction surgery History of bilateral cataract extraction History of carpal tunnel release of both wrists History of section x3 History of colonoscopy History of dilatation and curettage History of esophagogastroduodenoscopy (EGD) History of laparoscopic cholecystectomy History of lumbar spinal fusion hardware in place History of tonsillectomy History of tooth extraction all teeth History of total left knee replacement (TKR) History of total right knee replacement (TKR) Family History Mother Family history of diabetes mellitus Brother Family history of diabetes mellitus 3 brothers Colorectal cancer Myocardial infarction x 2 Father Myocardial infarction Denies family history of Ovarian cancer Prostate cancer Breast cancer Social History Smoking Status: Former smoker Tobacco Type: Cigarettes Age Started Using Tobacco: 15; Age Quit Using Tobacco: 21; Cigarettes Per Day: 1 pack Q 4 days; Second Hand Exposure: No; Do You Dip or Chew Tobacco: No; Tobacco Cessation Education Requested by Patient: No Hx Alcohol Use: No Hx Substance Use: No Preferred Language: [place] Islander Communication Ability: Effective Visual Impairment: Limited Hearing Ability: Normal 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 Beliefs That Will Affect Care: None marital status: / Current Living Situation: Family Current Living Situation Comment: Lives with son current occupational status: retired How many Children do You have: 3 Other Information That Helps Us Care for You: No Feels Safe at Home: Yes Safety Concerns: Feels Safe At This Time Childhood Exposure to Second-Hand Smoke: Yes caffeine: Yes (tea) during the past year weight has: remained stable Dental Care, Regularly: No Physical Activity Frequency: Does not Exercise Seatbelt Use: always Sunscreen Use: No Do you think of yourself as: straight/heterosexual Gender Identity: Female Assistive Devices: Denture - Upper, Denture - Lower, Glasses, Raised Toilet Seat and Walker Allergies Allergies Allergy/AdvReac Type Severity Reaction Status Date / Time No Known Allergies Allergy Verified 02/28/22 22:24 Home Meds Home Medications Medication Instructions Recorded Confirmed cholecalciferol (vitamin D3) 50 2,000 unit PO QAM 07/01/18 02/28/22 mcg (2,000 unit) capsule (Vitamin D3) docusate sodium 100 mg capsule 100 mg PO BID PRN Constipation 07/01/18 02/28/22 multivitamin 1 tab PO QAM 10/14/19 02/28/22 vitamin E 268 mg (400 unit) capsule 400 unit PO QAM 08/14/20 02/28/22 metformin 500 mg tablet 500 mg PO QAM 10/02/21 02/28/22 coenzyme Q10 200 mg capsule 200 mg PO DAILY 11/01/21 02/28/22 magnesium chloride 64 mg 128 mg PO QID 01/11/22 02/28/22 (magnesium chloride) tablet,delayed release Previous Rx's Medication Instructions Recorded atorvastatin 10 mg tablet 10 mg PO HS #90 tabs 08/12/21 glimepiride 1 mg tablet 1 mg PO BID #180 tabs 08/12/21 lisinopril 10 mg tablet 10 mg PO HS #90 tabs 08/12/21 furosemide 20 mg tablet 20 mg PO DAILY edema #30 tabs 12/07/21 spironolactone 25 mg tablet 25 mg PO DAILY #30 tabs 12/07/21 levothyroxine 25 mcg tablet 25 mcg PO DAILY #90 tabs 01/11/22 Results & Data (ED) Vital Signs Vital Signs - 24 hr 02/28/22 19:59 02/28/22 20:22 02/28/22 21:18 Temperature 36.6 C Temperature Source Temporal Artery Scan Pulse Rate 91 H Pulse Rate [Apical] Respiratory Rate 20 Respiratory Effort / Characteristics Non-Labored Spontaneous Respiratory Depth Normal Respiratory Pattern Regular Blood Pressure 211/111 H Blood Pressure [Right Arm] Blood Pressure Mean 144 Blood Pressure Mean [Right Arm] Blood Pressure Position Sitting Blood Pressure Position [Right Arm] Pulse Oximetry 98 97 88 L Oxygen Delivery Method Room Air Room Air Room Air Sepsis Recent Fever Within 48 Hours No Sepsis New/Unexplained Change in Mental Status N/A Sepsis Action Taken by Nursing No Action Required Oxygen Flow Rate - Titration 2 Pulse Oximetry Post Tiitration 93 02/28/22 21:46 Temperature Temperature Source Pulse Rate Pulse Rate [Apical] 78 Respiratory Rate 20 Respiratory Effort / Characteristics Respiratory Depth Respiratory Pattern Blood Pressure Blood Pressure [Right Arm] 161/104 H Blood Pressure Mean Blood Pressure Mean [Right Arm] 123 Blood Pressure Position Blood Pressure Position [Right Arm] Sitting Pulse Oximetry 99 Oxygen Delivery Method Nasal Cannula Sepsis Recent Fever Within 48 Hours Sepsis New/Unexplained Change in Mental Status Sepsis Action Taken by Nursing Oxygen Flow Rate - Titration Pulse Oximetry Post Tiitration Home Medications Current Medication List: was personally reviewed by me Laboratory Data Attestation: I reviewed the patient's lab results. Result diagrams: 02/28/22 20:18 02/28/22 20:18 Lab Results 02/28/22 02/28/22 02/28/22 Range/Units 20:18 20:18 20:18 WBC 5.64 (4.8-10.8) K/ul RBC 4.11 (3.93-5.22) M/uL Hgb 12.3 (12.0-16.0) g/dl Hct 37.5 (34.1-44.9) % MCV 91.2 (80.0-100.0) fL MCH 29.9 (25.0-34.0) pg MCHC 32.8 (32.0-36.0) g/dL RDW Std Deviation 47.8 H (36.4-46.3) fL RDW Coeff of Leah 14.3 (11.5-14.5) % Plt Count 75 L (130-400) K/uL MPV 10.6 (9.4-12.3) fL Immature Gran % (Auto) 0.4 % Neut % (Auto) 82.7 % Lymph % (Auto) 6.6 % Morrill % (Auto) 10.1 % Eos % (Auto) 0.0 % Baso % (Auto) 0.2 % Neut # (Auto) 4.67 (1.4-6.5) K/uL Lymph # (Auto) 0.37 L (1.2-3.4) K/uL Morrill # (Auto) 0.57 (0.24-0.82) K/uL Eos # (Auto) 0.00 (0-0.50) K/uL Baso # (Auto) 0.01 (0-0.2) K/uL Immature Gran # (Auto) 0.02 (0.00-0.02) K/uL Sodium 129 L (136-145) mmol/L Potassium 5.2 H (3.5-5.1) mmol/L Chloride 100 (98-107) mmol/L Carbon Dioxide 22 (21-32) mmol/L Anion Gap 7 (3-11) BUN 42 H (6-23) mg/dl Creatinine 1.50 H (0.6-1.2) mg/dl Est Cr Clr Drug Dosing 35.0 ml/min Est GFR ( Amer) 38.3 ml/min Est GFR (Non-Af Amer) 33.0 ml/min BUN/Creatinine Ratio 28.0 H (10-20) Glucose 172 H (70-99(Fasting)) mg/dl Osmolality (280-300) mOsm/kg Calcium 8.7 (8.5-10.1) mg/dl Total Bilirubin 1.0 (0.2-1.0) mg/dl AST 45 H (13-39) U/L ALT 26 (7-52) U/L Alkaline Phosphatase 65 (34-104) U/L Troponin I High Sens 51.5 H* (0-14) pg/ml Total Protein 6.9 (6.0-8.3) gm/dl Albumin 2.8 L (3.4-5.0) gm/dl Globulin 4.1 H (2.5-4.0) gm/dl Albumin/Globulin Ratio 0.7 L (0.9-2) SARS-CoV-2, RNA, NAAT NEGATIVE (NEGATIVE) 02/28/22 Range/Units 21:18 WBC (4.8-10.8) K/ul RBC (3.93-5.22) M/uL Hgb (12.0-16.0) g/dl Hct (34.1-44.9) % MCV (80.0-100.0) fL MCH (25.0-34.0) pg MCHC (32.0-36.0) g/dL RDW Std Deviation (36.4-46.3) fL RDW Coeff of Leah (11.5-14.5) % Plt Count (130-400) K/uL MPV (9.4-12.3) fL Immature Gran % (Auto) % Neut % (Auto) % Lymph % (Auto) % Morrill % (Auto) % Eos % (Auto) % Baso % (Auto) % Neut # (Auto) (1.4-6.5) K/uL Lymph # (Auto) (1.2-3.4) K/uL Morrill # (Auto) (0.24-0.82) K/uL Eos # (Auto) (0-0.50) K/uL Baso # (Auto) (0-0.2) K/uL Immature Gran # (Auto) (0.00-0.02) K/uL Sodium (136-145) mmol/L Potassium (3.5-5.1) mmol/L Chloride (98-107) mmol/L Carbon Dioxide (21-32) mmol/L Anion Gap (3-11) BUN (6-23) mg/dl Creatinine (0.6-1.2) mg/dl Est Cr Clr Drug Dosing ml/min Est GFR ( Amer) ml/min Est GFR (Non-Af Amer) ml/min BUN/Creatinine Ratio (10-20) Glucose (70-99(Fasting)) mg/dl Osmolality 291 (280-300) mOsm/kg Calcium (8.5-10.1) mg/dl Total Bilirubin (0.2-1.0) mg/dl AST (13-39) U/L ALT (7-52) U/L Alkaline Phosphatase (34-104) U/L Troponin I High Sens (0-14) pg/ml Total Protein (6.0-8.3) gm/dl Albumin (3.4-5.0) gm/dl Globulin (2.5-4.0) gm/dl Albumin/Globulin Ratio (0.9-2) SARS-CoV-2, RNA, NAAT (NEGATIVE) Administered Medications Acetaminophen (Acetaminophen 500 Mg Tab) 500 mg PO Q6H PRN PRN Reason: pain/fever Stop: 03/30/22 22:59 Last Admin: 02/28/22 23:32 Dose: 500 mg Documented By: DAVID Lactated Ringer's (Lr) 500 mls @ 125 mls/hr IV .Q4H ONE Stop: 03/01/22 02:59 Last Admin: 02/28/22 23:32 Dose: 125 mls/hr Documented By: DAVID Discontinued Medications Fentanyl Citrate (Fentanyl Citrate 100 Mcg/2 Ml Vial) 50 mcg IV NOW STA Stop: 02/28/22 20:22 Last Admin: 02/28/22 20:56 Dose: 50 mcg Documented By: KIERA Sodium Chloride (Nss) 500 mls @ 999 mls/hr IV .Q31M ARMANDO Stop: 02/28/22 21:00 Last Infusion: 02/28/22 21:39 Dose: 0 mls/hr Documented By: Admin: 02/28/22 20:57 Dose: 999 mls/hr Documented By: KIERA Sodium Chloride (Nss 1000ml) 1,000 mls @ 999 mls/hr IV .Q1H1M ONE Stop: 02/28/22 22:16 Last Admin: 02/28/22 21:38 Dose: Not Given Documented By: KIERA Sodium Chloride (Nss 1000ml) 500 mls @ 999 mls/hr IV .Q31M ONE Stop: 02/28/22 21:52 Last Admin: 02/28/22 21:38 Dose: Not Given Documented By: KIERA Ondansetron HCl (Ondansetron Inj 2 Mg/Ml 2 Ml Vial) 4 mg IV NOW STA Stop: 02/28/22 20:22 Last Admin: 02/28/22 20:56 Dose: 4 mg Documented By: KIERA Imaging Data Radiologist's Impression: Abdomen/Pelvis CT 02/28/22 20:22 CT abd pelvis wo con CLINICAL HISTORY: Status post fall posteriorly with pain. COMPARISON STUDY: 10/14/2019 CT DOSE: TECHNIQUE: Standard CT of the Abdomen and Pelvis was performed without IV contrast. The patient did not receive oral contrast. A dose lowering technique was utilized adhering to the principles of ALARA. FINDINGS: Lung base: The heart is enlarged. Lung bases are clear with minimal dependent edema/atelectasis. Abdominal cavity: There is no evidence for abdominal mass, adenopathy or ascites. Liver: There is again evidence for cirrhosis of liver with a nodular contour.. Spleen: The spleen is homogeneous in attenuation on these limited noncontrast images. There is again evidence for splenomegaly. Pancreas: The pancreas is homogeneous in attenuation on these limited n oncontrast images. Gall Bladder: Surgical clips are present. Adrenal glands: The adrenal glands are normal in size and attenuation on these limited noncontrast images. Kidneys: The kidneys are homogeneous in attenuation on these limited noncontrast images. There is no evidence for gross renal mass, calculus or hydronephrosis bilaterally. Bowel: There is a small hiatal hernia. The bowel loops are normally placed within the abdomen and pelvis without evidence for dilatation or obstruction. There is no evidence for mass lesion. There is mild sigmoid diverticulosis without evidence for diverticulitis. There are no inflammatory changes present. There is no evidence for free air. Bladder: There is no evidence for focal bladder wall thickening, calculus or diverticulum. : There is no evidence for pelvic mass or adenopathy. Vasculature: There is no evidence for focal aneurysmal dilatation of the abdominal aorta. IVC filter is in place. Osseous structures: There is no acute osseous pathology. There are again degenerative changes and internal fixation of the lumbar spine. IMPRESSION: 1. No acute intra-abdominal or pelvic abnormality on these limited noncontrast images. 2. Diverticulosis without evidence for diverticulitis is again seen. 3. Additional nonacute findings are delineated above ACT 112: Negative or not required by law. Electronically signed by: Nathanael Ritter M.D. 02/28/2022 9:[address] 02/28/22 20:22 CT head/brain wo con CLINICAL HISTORY: Status post fall with trauma to the back of the head. COMPARISON STUDY: 12/27/2017 CT DOSE: TECHNIQUE: Standard CT of the Brain was performed without IV contrast. A dose lowering technique was utilized adhering to the principles of ALARA. FINDINGS: Extraaxial space: There is no evidence for subdural hematoma. There are no extra-axial fluid collections. Ventricles and cisterns: The ventricles are normal in size and configuration. There is no evidence for midline shift or mass effect. Parenchyma: There is no subarachnoid or intraparenchymal hemorrhage. There is no evidence for an acute infarct or cerebral edema. There is homogeneous attenuation of the brain parenchyma. There are no gross mass lesions. Osseous structures: There is no evidence for an acute fracture. The visualized paranasal sinuses are clear. The mastoid air cells are clear bilaterally. Soft tissues: There is no evidence for focal soft tissue swelling. IMPRESSION: 1. No acute intracerebral pathology. ACT 112: Negative or not required by law. Electronically signed by: Nathanael Ritter M.D. 02/28/2022 8:[address] 02/28/22 20:22 CT lumbar spine wo con CLINICAL HISTORY: Status post fall posteriorly with trauma to the back. Pain. Pr evious lumbar surgery. COMPARISON STUDY: MR lumbar spine from 10/03/2021 CT DOSE: 4038.57 mGy.cm TECHNIQUE: Standard CT of the Lumbar Spine was performed without IV contrast. A dose lowering technique was utilized adhering to the principles of ALARA. FINDINGS: Bones: The bones are osteopenic. There is no evidence for an acute fracture or malalignment. Interpedicular screw and adrianna fixation is again seen from L4 through S1. The heights of the vertebral bodies are maintained. Minimal anterolisthesis is seen of L4 on L5 and L5 on S1 related to the internal fixation. The remaining lumbar vertebral bodies are in anatomic alignment. Disc spaces: Mild to moderate disc space narrowing is seen throughout the spine. Facet joints: Hypertrophic facet joint disease is present particularly at L3-4, the disc space level above the spinal fusion. The sacroiliac joints are intact bilaterally. Soft tissues: The prevertebral soft tissues are within normal limits. IMPRESSION: 1. Osteopenia with no acute osseous pathology. 2. Status post previous internal fixation with degenerative disc and degenerative facet joint disease. ACT 112: Negative or not required by law. Electronically signed by: Nathanael Ritter M.D. 02/28/2022 9:[address] 02/28/22 20:22 CT thoracic spine wo con CLINICAL HISTORY: Status post fall backwards with her back pain COMPARISON STUDY: No previous studies for comparison. CT DOSE: TECHNIQUE: Standard CT of the Thoracic Spine was performed without IV contrast. A dose lowering technique was utilized adhering to the principles of ALARA. FINDINGS: Bones: Bones are osteopenic. Minimal old anterior wedge deformities are seen throughout the mid to lower thoracic spine. There is no evidence for an acute fracture or malalignment. The heights of the remaining thoracic vertebral bodies are maintained. The vertebral bodies are in anatomic alignment. Disc spaces: Moderate disc space narrowing is seen throughout the thoracic spine with endplate osteophyte formation. Pedicles::The pedicles are intact bilaterally. Soft tissues: The paraspinal soft tissues are within normal limits. IMPRESSION: 1. Osteopenia with old anterior wedge deformities throughout the mid to lower thoracic spine. 2. No acute osseous pathology. 3. Degenerative disc disease. ACT 112: Negative or not required by law. Electronically signed by: Nathanael Ritter M.D. 02/28/2022 8:56 PM Discharge Plan Visit Data Chief Complaint: Fall ED Provider: Navjot Ritchie Discharge Problem: Fall, Back pain, Hyponatremia, Elevated troponin I level Patient Disposition: Admitted As Inpatient Discharge Instructions Interventions: ED Discharge Assessment Last Done: 02/28/22 23:23
[2022-02-28] MEDS ORDERED: ONDANSETRON INJ 2 MG/ML 2 ML VIAL IV STA (20:21)
[2022-02-28] MEDS ORDERED: fentaNYL citrate 100 MCG/2 ML VIAL IV STA (20:21)
[2022-02-28] MEDS ORDERED: SODIUM CHLORIDE 0.9% 500 ML IV SCH (20:30)
[2022-02-28 20:49] LABS: Basophils # (auto) 0.01 K/uL (0-0.2); Basophils % (auto) 0.2 %; Hematocrit (blood only) 37.5 % (34.1-44.9); Hemoglobin 12.3 g/dl (12.0-16.0); Immature Granulocytes # (auto) 0.02 K/uL (0.00-0.02); Immature Granulocytes % (auto) 0.4 %; Lymphocytes # (auto) 0.37 K/uL (1.2-3.4); Lymphocytes % (auto) 6.6 %; Mean Corpuscular Hemoglobin 29.9 pg (25.0-34.0); Mean Corpuscular Hgb Conc 32.8 g/dL (32.0-36.0); Mean Corpuscular Volume 91.2 fL (80.0-100.0); Mean Platelet Volume 10.6 fL (9.4-12.3); Monocytes # (auto) 0.57 K/uL (0.24-0.82); Monocytes % (auto) 10.1 %; Neutrophils # (auto) 4.67 K/uL (1.4-6.5); Neutrophils % (auto) 82.7 %; Platelet Count 75 K/uL (130-400); RDW Coefficient of Variation 14.3 % (11.5-14.5); RDW Standard Deviation 47.8 fL (36.4-46.3); Red Blood Count 4.11 M/uL (3.93-5.22); White Blood Count 5.64 K/ul (4.8-10.8)
[2022-02-28 20:54] LABS: Albumin Globulin Ratio 0.7 (0.9-2); Albumin Level 2.8 gm/dl (3.4-5.0); Calcium 8.7 mg/dl (8.5-10.1); Est GFR (African American) 38.3 ml/min; Globulin 4.1 gm/dl (2.5-4.0); Potassium 5.2 mmol/L (3.5-5.1); Total Protein 6.9 gm/dl (6.0-8.3)
--- NOTE | 2022-02-28 20:55 | CT Scan Report ---
CT head/brain wo con CLINICAL HISTORY: Status post fall with trauma to the back of the head. COMPARISON STUDY: 12/27/2017 CT DOSE: TECHNIQUE: Standard CT of the Brain was performed without IV contrast. A dose lowering technique was utilized adhering to the principles of ALARA. FINDINGS: Extraaxial space: There is no evidence for subdural hematoma. There are no extra-axial fluid collecti ons. Ventricles and cisterns: The ventricles are normal in size and configuration. There is no evidence fo r midline shift or mass effect. Parenchyma: There is no subarachnoid or intraparenchymal hemorrhage. There is no evidence for an acut e infarct or cerebral edema. There is homogeneous attenuation of the brain parenchyma. There are no g ross mass lesions. Osseous structures: There is no evidence for an acute fracture. The visualized paranasal sinuses are clear. The mastoid air cells are clear bilaterally. Soft tissues: There is no evidence for focal soft tissue swelling. IMPRESSION: 1. No acute intracerebral pathology. ACT 112: Negative or not required by law. Electronically signed by: Nathanael Ritter M.D. 02/28/2022 8:53 PM
--- NOTE | 2022-02-28 20:59 | CT Scan Report ---
CT thoracic spine wo con CLINICAL HISTORY: Status post fall backwards with her back pain COMPARISON STUDY: No previous studies for comparison. CT DOSE: TECHNIQUE: Standard CT of the Thoracic Spine was performed without IV contrast. A dose lowering tech nique was utilized adhering to the principles of ALARA. FINDINGS: Bones: Bones are osteopenic. Minimal old anterior wedge deformities are seen throughout the mid to lo wer thoracic spine. There is no evidence for an acute fracture or malalignment. The heights of the re maining thoracic vertebral bodies are maintained. The vertebral bodies are in anatomic alignment. Disc spaces: Moderate disc space narrowing is seen throughout the thoracic spine with endplate osteop hyte formation. Pedicles::The pedicles are intact bilaterally. Soft tissues: The paraspinal soft tissues are within normal limits. IMPRESSION: 1. Osteopenia with old anterior wedge deformities throughout the mid to lower thoracic spine. 2. No acute osseous pathology. 3. Degenerative disc disease. ACT 112: Negative or not required by law. Electronically signed by: Nathanael Ritter M.D. 02/28/2022 8:56 PM
[2022-02-28 21:01] LABS: Troponin I High Sensitivity 51.5 pg/ml (0-14)
--- NOTE | 2022-02-28 21:02 | CT Scan Report ---
CT lumbar spine wo con CLINICAL HISTORY: Status post fall posteriorly with trauma to the back. Pain. Previous lumbar surgery . COMPARISON STUDY: MR lumbar spine from 10/03/2021 CT DOSE: 4038.57 mGy.cm TECHNIQUE: Standard CT of the Lumbar Spine was performed without IV contrast. A dose lowering techni que was utilized adhering to the principles of ALARA. FINDINGS: Bones: The bones are osteopenic. There is no evidence for an acute fracture or malalignment. Interped icular screw and adrianna fixation is again seen from L4 through S1. The heights of the vertebral bodies a re maintained. Minimal anterolisthesis is seen of L4 on L5 and L5 on S1 related to the internal fixat ion. The remaining lumbar vertebral bodies are in anatomic alignment. Disc spaces: Mild to moderate disc space narrowing is seen throughout the spine. Facet joints: Hypertrophic facet joint disease is present particularly at L3-4, the disc space level above the spinal fusion. The sacroiliac joints are intact bilaterally. Soft tissues: The prevertebral soft tissues are within normal limits. IMPRESSION: 1. Osteopenia with no acute osseous pathology. 2. Status post previous internal fixation with degenerative disc and degenerative facet joint disease . ACT 112: Negative or not required by law. Electronically signed by: Nathaanel Ritter M.D. 02/28/2022 9:00 PM
--- NOTE | 2022-02-28 21:08 | CT Scan Report ---
CT abd pelvis wo con CLINICAL HISTORY: Status post fall posteriorly with pain. COMPARISON STUDY: 10/14/2019 CT DOSE: TECHNIQUE: Standard CT of the Abdomen and Pelvis was performed without IV contrast. The patient did not receive oral contrast. A dose lowering technique was utilized adhering to the principles of SAM Bland. FINDINGS: Lung base: The heart is enlarged. Lung bases are clear with minimal dependent edema/atelectasis. Abdominal cavity: There is no evidence for abdominal mass, adenopathy or ascites. Liver: There is again evidence for cirrhosis of liver with a nodular contour.. Spleen: The spleen is homogeneous in attenuation on these limited noncontrast images. There is again evidence for splenomegaly. Pancreas: The pancreas is homogeneous in attenuation on these limited noncontrast images. Gall Bladder: Surgical clips are present. Adrenal glands: The adrenal glands are normal in size and attenuation on these limited noncontrast im ages. Kidneys: The kidneys are homogeneous in attenuation on these limited noncontrast images. There is no evidence for gross renal mass, calculus or hydronephrosis bilaterally. Bowel: There is a small hiatal hernia. The bowel loops are normally placed within the abdomen and pel vis without evidence for dilatation or obstruction. There is no evidence for mass lesion. There is mi ld sigmoid diverticulosis without evidence for diverticulitis. There are no inflammatory changes pres ent. There is no evidence for free air. Bladder: There is no evidence for focal bladder wall thickening, calculus or diverticulum. : There is no evidence for pelvic mass or adenopathy. Vasculature: There is no evidence for focal aneurysmal dilatation of the abdominal aorta. IVC filter is in place. Osseous structures: There is no acute osseous pathology. There are again degenerative changes and int ernal fixation of the lumbar spine. IMPRESSION: 1. No acute intra-abdominal or pelvic abnormality on these limited noncontrast images. 2. Diverticulosis without evidence for diverticulitis is again seen. 3. Additional nonacute findings are delineated above ACT 112: Negative or not required by law. Electronically signed by: Nathanael Ritter M.D. 02/28/2022 9:06 PM
[2022-02-28] MEDS ORDERED: SODIUM CHLORIDE 0.9% 1000ML 1,000 ML IV ONE (21:16)
[2022-02-28] MEDS ORDERED: SODIUM CHLORIDE 0.9% 1000ML 500 ML IV ONE (21:22)
--- NOTE | 2022-02-28 22:01 | History & Physical Report ---
Date of Service February 28, 2022 Assessment & Plan (1) Fall: Plan: Per patient and son, mechanical in nature with patient just feeling "weak." Possibly some orthostasis from micturition (though patient denies dizziness or lightheadedness prior to fall), likely exacerbated by dehydration from diarrhea and poor PO intake. Prior to this fall, patient and son deny any recent falls at home. - Monitor on telemetry - Orthostatics in AM - PT/OT/CM for possible rehab (2) Diarrhea: Plan: Presumed infectious. Already resolving per patient. Possibly worsened by her high-dose oral magnesium she takes for chronic hypomagnesemia. - Hold oral magnesium - Monitor; if it recurs/returns, will get typical infectious testing. (3) EMY (acute kidney injury): Plan: Baseline Cr ~1.0. Cr was 1.5 on admission. Likely pre-renal from diarrhea, poor PO intake, and exacerbated by medications. - Hold furosemide, lisinopril, and spironolactone - Received 500 mL in ER, will give another 500 mL overnight, then monitor. - If no improvement, consider renal ultrasound and nephrology consult, but defer for now given convincing hx pointing toward pre-renal. (4) Hyponatremia: Plan: Na was 129 on admission. Likely low solute from poor PO intake and GI losses from diarrhea. - Urine osms pending - Follow Na after IV fluids - Also with some higher potassium - Monitor this while holding lisinopril and spironolactone; I think it will come down. (5) Elevated troponin: Plan: Troponin was 51 on admission without any chest pain. EKG not in the computer, but reviewed: Shows bifascicular block, stable from prior EKGs. - Telemetry as above - Trend with one more troponin, but at this point very doubtful for ACS as etiology of fall or weakness. (6) Hypertension: Plan: BP is 160/100 in the ER. - Holding home lisinopril, Lasix, and spironolactone as above for EMY. - High threshold to treat HTN in the hospital unless evidence of end organ damage. - Monitor (7) Liver cirrhosis: Plan: Presumed due to GREGORY. Hx of varices, but no hx of variceal bleed from my review of chart. EGD in 11/2020 without varices. - Resume Lasix/spironolactone once EMY has resolved. - Monitor platelets (chronically low, but presently a bit lower than her baseline of ~95) (8) Diabetes mellitus with peripheral vascular disease: Plan: Prior A1c was 7.1% in 12/2021. - Hold home metformin, glimepiride - Sliding scale insulin (9) Aortic stenosis: Plan: Mild on echo in 10/2021. No change from prior. - Monitor (10) Hypomagnesemia: Plan: Chronic, with it being attributed previously to medications. Seen by Dr. Momin in 11/2021. - Hold spironolactone as above - Monitor Mg; replete via IV while in the hospital. 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 - Heparin 5,000 units SQ Q12h FULL CODE per patient with son present in room and in agreement. History of Present Illness Primary Care Provider: Franko Monk, DO 76yo F w/ hx of GREGORY cirrhosis, aortic stenosis who presents with a fall at home. The patient has had diarrhea for about 1 week and reports that she has also just had a loss of appetite and poor PO intake. She attributes it to getting several cats and taking care of kittens and getting something from one of them. No one else is sick in the household. Prior to 1 week ago, she was doing well and had not been falling at home or having any acute medical issues. Today, she went to the restroom. Per her son, it is a very small room, and she has to go in by herself just because of the walker taking up too much space. She used the restroom and got up, but felt very weak and fell into the bathtub on her back. Her son was not able to catch her. However, she denies striking her head or losing consciousness. She denies any lightheadedness, palpitations, or other symptoms prior to the fall. Allergies Allergy/AdvReac Type Severity Reaction Status Date / Time No Known Allergies Allergy Verified 02/28/22 22:24 Home Medications Medication Instructions Recorded Confirmed Type cholecalciferol (vitamin D3) 50 2,000 unit PO QAM 07/01/18 02/28/22 History mcg (2,000 unit) capsule (Vitamin D3) docusate sodium 100 mg capsule 100 mg PO BID PRN Constipation 07/01/18 02/28/22 History multivitamin 1 tab PO QAM 10/14/19 02/28/22 History vitamin E 268 mg (400 unit) capsule 400 unit PO QAM 08/14/20 02/28/22 History atorvastatin 10 mg tablet 10 mg PO HS #90 tabs 08/12/21 02/28/22 Rx glimepiride 1 mg tablet 1 mg PO BID #180 tabs 08/12/21 02/28/22 Rx lisinopril 10 mg tablet 10 mg PO HS #90 tabs 08/12/21 02/28/22 Rx metformin 500 mg tablet 500 mg PO QAM 10/02/21 02/28/22 History coenzyme Q10 200 mg capsule 200 mg PO DAILY 11/01/21 02/28/22 History furosemide 20 mg tablet 20 mg PO DAILY edema #30 tabs 12/07/21 02/28/22 Rx spironolactone 25 mg tablet 25 mg PO DAILY #30 tabs 12/07/21 02/28/22 Rx levothyroxine 25 mcg tablet 25 mcg PO DAILY #90 tabs 01/11/22 02/28/22 Rx magnesium chloride 64 mg 128 mg PO QID 01/11/22 02/28/22 History (magnesium chloride) tablet,delayed release Past Med/Surg History Medical History Acute DVT (deep venous thrombosis) 2019> no known cause > Filter to right groin 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 Chronic back pain Chronic deep vein thrombosis (DVT) 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 Diverticular hemorrhage resolved Esophageal varices determined by endoscopy Fever GERD (gastroesophageal reflux disease) GI bleed none at present Hyperlipemia Lower leg edema Migraine Monoclonal gammopathy Obesity Osteoarthritis Proteinuria Pulmonary embolism 2019 > no known cause > Filter to right groin Thrombocytopenia Vertigo Surgical History History of bilateral breast reduction surgery History of bilateral cataract extraction History of carpal tunnel release of both wrists History of section x3 History of colonoscopy History of dilatation and curettage History of esophagogastroduodenoscopy (EGD) History of laparoscopic cholecystectomy History of lumbar spinal fusion hardware in place History of tonsillectomy History of tooth extraction all teeth History of total left knee replacement (TKR) History of total right knee replacement (TKR) Family History Mother Family history of diabetes mellitus Brother Family history of diabetes mellitus 3 brothers Colorectal cancer Myocardial infarction x 2 Father Myocardial infarction Denies family history of Ovarian cancer Prostate cancer Breast cancer Social History Smoking Status: Never smoker Tobacco Type: Cigarettes Age Started Using Tobacco: 15; Age Quit Using Tobacco: 21; Cigarettes Per Day: "Not many".; Second Hand Exposure: No; Hx Alcohol Use: No Hx Substance Use: No Preferred Language: Martiniquais Communication Ability: Effective Visual Impairment: Limited Hearing Ability: Normal 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 current occupational status: retired How many Children do You have: 3 Feels Safe at Home: Yes Childhood Exposure to Second-Hand Smoke: Yes caffeine: Yes (tea) during the past year weight has: remained stable Dental Care, Regularly: No Physical Activity Frequency: Does not Exercise Seatbelt Use: always Sunscreen Use: No Do you think of yourself as: straight/heterosexual Gender Identity: Female Assistive Devices: Denture - Upper, Denture - Lower, Glasses and Walker Review of Systems Review of Systems: All systems reviewed & are unremarkable except as noted in HPI & below Physical Exam Constitutional: WD/WN, vitals as above Eyes: EOM intact bilaterally; no conjunctival abnormality ENMT: external ear and nose normal, oropharynx normal Neck: trachea midline, no thyromegaly normal visual inspection Respiratory: normal respiratory effort, lungs clear to auscultation no respiratory distress Cardiovascular: Rate/Rhythm: regular rate and regular rhythm Extremities: + edema (Left leg larger than right, but patient reports this is chronic.) Gastrointestinal (Abdomen): Inspection/Auscultation: abdomen normal to inspection; abdomen not distended Musculoskeletal: no cyanosis or clubbing, extremities motor strength 5/5 Skin: no rashes, warm and dry Neurologic: moves all extremities and awake Psychiatric: Orientation: alert, oriented to person and cooperative Results & Data Results & Data ([facility]) Vital Signs (Past 12 Hours) Vital Signs Temp Pulse Pulse Resp BP BP Pulse Ox 02/28/22 21:46 78 20 161/104 H 99 02/28/22 21:18 88 L 02/28/22 20:22 97 02/28/22 19:59 36.6 C 91 H 20 211/111 H 98 O2 Del Method 02/28/22 21:46 Nasal Cannula 02/28/22 21:18 Room Air 02/28/22 20:22 Room Air 02/28/22 19:59 Room Air Code Status & VTE Plan VTE Prophylaxis Plan VTE Prophylaxis will be ordered: Yes PG Care Time/CCT Total # of Minutes Spent Total Time Spent with Patient: Total time spent is greater than 50% in coordination of care (as documented) at patient's floor/unit and/or counseling patient: Coding Level of Care Code 90186 Initial Inpt Care Lvl 3 Diagnoses Fall W19.XXXA Diarrhea R19.7 EMY (acute kidney injury) N17.9 Hyponatremia E87.1 Elevated troponin R77.8 Hypertension I10 Liver cirrhosis K74.60 Diabetes mellitus with peripheral vascular disease E11.51 Aortic stenosis I35.0 Hypomagnesemia E83.42 DVT prophylaxis Z29.9
[2022-02-28] MEDS ORDERED: GLUCOSE 10 TAB/TUBE PO PRN (23:00)
[2022-02-28] MEDS ORDERED: DEXTROSE 50% 50 ML SYRINGE IV PRN (23:00)
[2022-02-28] MEDS ORDERED: GLUCOSE 40% GEL 15 GM TUBE PO PRN (23:00)
[2022-02-28] MEDS ORDERED: CARBOHYDRATES FOR HYPOGLYCEMIA PO PRN (23:00)
[2022-02-28] MEDS ORDERED: LACTATED RINGER'S 500 ML IV ONE (23:00)
[2022-02-28] MEDS ORDERED: GLUCAGON FOR INJ 1 MG VIAL SQ PRN (23:00)
[2022-02-28] MEDS ORDERED: ONDANSETRON INJ 2 MG/ML 2 ML VIAL IV PRN (23:00)
[2022-02-28] MEDS: ACETAMINOPHEN 500 MG TAB PO PRN (23:32)
[2022-03-01] MEDS ORDERED: traMADol HCL 50 MG TABLET PO STA ×2 (02:25→23:00)
[2022-03-01] MEDS: LEVOTHYROXINE SODIUM 25 MCG TABLET PO SCH (05:55)
[2022-03-01 06:19] LABS: Hematocrit (blood only) 37.9 % (34.1-44.9); Hemoglobin 12.5 g/dl (12.0-16.0); Mean Platelet Volume 10.3 fL (9.4-12.3); Platelet Count 62 K/uL (130-400)
[2022-03-01 06:42] LABS: BUN Creatinine Ratio 27.4 (10-20); Calcium 8.6 mg/dl (8.5-10.1); Creatinine Clr Calc Pharmacy 35.4 ml/min; Est GFR (African American) 39.5 ml/min; Est GFR (Non-African American) 34.1 ml/min; Magnesium 1.5 mg/dl (1.7-2.4); Potassium 5.3 mmol/L (3.5-5.1)
[2022-03-01 07:30] LABS: Mean Corpuscular Volume 90.9 fL (80.0-100.0); RDW Coefficient of Variation 14.2 % (11.5-14.5); RDW Standard Deviation 47.8 fL (36.4-46.3); Red Blood Count 4.17 M/uL (3.93-5.22)
[2022-03-01] MEDS: ACETAMINOPHEN 500 MG TAB PO PRN ×2 (08:31→19:45)
[2022-03-01] MEDS: INSULIN ASPART PER UNIT SC SCH ×4 (08:32→21:49)
[2022-03-01] MEDS: HEPARIN SOD 5,000 UNIT/0.5 ML VIAL SQ SCH ×2 (08:34→19:42)
[2022-03-01 10:28] LABS: Appearance Urine Clear (Clear); Bacteria Urine Automated Negative (Negative); Bilirubin Urine Negative (Negative); Blood Urine 3+ (Negative); Color Urine Yellow; Glucose Urine UA Negative (Negative); Ketones Urine Negative (Negative); Leukocyte Esterase Urine Negative (Negative); Nitrite Urine Negative (Negative); Protein Urine 3+ (Negative); Specific Gravity Urine 1.015 (1.000-1.030); Urobilinogen Urine Negative (Negative); pH Urine 5.5 (4.5-7.5)
[2022-03-01 11:07] LABS: Urine Potassium 39.9 mmol/L
[2022-03-01] MEDS: LIDOCAINE 5% 1 PATCH TD SCH (12:46)
--- NOTE | 2022-03-01 13:19 | Hospitalist Progress Note ---
Date of Service March 01, 2022 Assessment & Plan (1) Fall: Plan: - Per patient and son, mechanical in nature with patient just feeling "weak." Possibly some orthostasis from micturition (though patient denies dizziness or lightheadedness prior to fall), likely exacerbated by dehydration from diarrhea and poor PO intake. Prior to this fall, patient and son deny any recent falls at home. - Monitor on telemetry -CTT-spine: Osteopenia with wedge deformity, no acute findings. Degenerative disc disease. -Lumbar spine CT: Osteopenia, postsurgical changes, no acute changes -Head CT: No acute findings -Pending formal orthostatics at 1, 3, 5 minutes Chronic low back pain, patient has had improvement with tramadol but would avoid this if possible. Reports she has had good improvement with lidocaine patch previously, will add this today -PT/OT pending CM consulted (2) Diarrhea: Plan: Suspicious for infectious diarrhea, self-limiting No diarrhea morning of 03/01 Oral magnesium held for contribution to this, will resume tomorrow if diarrhea remains absent. If diarrhea returns add stool panel (3) EMY (acute kidney injury): Plan: Baseline Cr ~1.0. Cr was 1.5 on admission. Likely pre-renal from diarrhea, poor PO intake, and exacerbated by medications. - Hold furosemide, lisinopril, and spironolactone - Received 500 mL in ER, and then another 500 cc overnight Creatinine is slightly downtrending today, beginning to improve, remains clinically dry. Encourage p.o., patient drinking water well at bedside. Kristian tional 500 cc at 80 cc/h given with concurrent hyperkalemia, BMP trended - If no improvement,/worsening follow-up with renal ultrasound (4) Hyponatremia: Plan: Na was 129 on admission. Likely low solute from poor PO intake and GI losses from diarrhea. -Uptrending 03/01 after fluids - Follow Na after IV fluids -Lisinopril/spironolactone held Urine osmolality low, urine sodium 37. Suspect solute depletion although sodium is not overly suppressed, clinically is not responding like SIADH (5) Elevated troponin: Plan: Troponin was 51 on admission without any chest pain. EKG not in the computer, but reviewed: Shows bifascicular block, stable from prior EKGs. - Telemetry as above -downtrending (6) Hypertension: Plan: BP is 160/100 in the ER. - Holding home lisinopril, Lasix, and spironolactone as above for EMY. - High threshold to treat HTN in the hospital unless evidence of end organ damage. -Tensive on assessment 03/01 (7) Liver cirrhosis: Plan: Presumed due to GREGORY. Hx of varices, but no hx of variceal bleed - EGD in 11/2020 without varices. - Resume Lasix/spironolactone once EMY has resolved. - Monitor platelets (chronically low, but presently a bit lower than her baseline of ~95) (8) Diabetes mellitus with peripheral vascular disease: Plan: Prior A1c was 7.1% in 12/2021. - Hold home metformin, glimepiride - Sliding scale insulin (9) Aortic stenosis: Plan: Mild on echo in 10/2021. No change from prior. - Monitor (10) Hypomagnesemia: Plan: Chronic, with it being attributed previously to medications. Seen by Dr. Momin in 11/2021. - Hold spironolactone as above - Monitor Mg; replete via IV while in the hospital. 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 - Heparin 5,000 units SQ Q12h FULL CODE per patient with son present in room and in agreement. Admission and Anticipated Discharge Date Admission Date: February 28, 2022 Subjective Seen bedside. Patient reports she feels "just tired and broken all over ". Denies fever/chills/sweats/chest pain/chest pressure last night. Does endorse that she has chronic neck pain which goes to her right ear and chronic low back pain which continue to ache. Feels overall tired with a poor appetite, but did eat some breakfast this morning. No diarrhea this morning. No emesis Review of Systems Review of Systems: All systems reviewed & are unremarkable except as noted in Subjective Physical Exam Physical Exam: General: A&Ox3. NAD. Cooperative. HEENT: Atraumatic, normocephalic. Vision and hearing intact Pulm: CTAB A&P. -wheezes, -rales, -rhonchi. Symmetrical chest rise. No increase in work of breathing. No respiratory distress. Cardiac: RRR, -mrg. Radial pulses intact and symmetrical. Abdominal: Nontender, nondistended, soft. BS present. Extremities: Bilateral lower extremity edema, contusion overlying left ankle with no pain on malleoli or squeeze or navicular palpation. Results & Data Results & Data ([facility]) Vital Signs (Past 12 Hours) Vital Signs Temp Pulse Pulse Resp BP Pulse Ox O2 Del Method 03/01/22 11:19 37.1 C 73 19 128/69 95 Room Air 03/01/22 09:56 Room Air 03/01/22 08:23 36.8 C 80 19 148/76 H 100 Nasal Cannula 03/01/22 07:48 88 03/01/22 02:52 36.6 C 74 18 150/64 H 98 Nasal Cannula O2 Flow Rate 03/01/22 11:19 03/01/22 09:56 03/01/22 08:23 2 03/01/22 07:48 03/01/22 02:52 2 PG Care Time/CCT Total # of Minutes Spent Total Time Spent with Patient: Total time spent is greater than 50% in coordination of care (as documented) at patient's floor/unit and/or counseling patient: Coding Level of Care Code 64709 Subseq Hosp Care Lvl 2 Diagnoses Fall W19.XXXA Diarrhea R19.7 EMY (acute kidney injury) N17.9 Hyponatremia E87.1 Elevated troponin R77.8 Hypertension I10 Liver cirrhosis K74.60 Diabetes mellitus with peripheral vascular disease E11.51 Aortic stenosis I35.0 Hypomagnesemia E83.42 DVT prophylaxis Z29.9
[2022-03-01] MEDS: MAGNESIUM SULFATE / D5W 1 GM/100 ML BAG IV SCH ×2 (17:15→19:38)
[2022-03-01] MEDS: ATORVASTATIN 10 MG TAB PO SCH (19:42)
[2022-03-01] MEDS: FLUTICASONE PROPIONATE NA SPR 16 GM BTL SCH (23:16)
--- NOTE | 2022-03-02 05:50 | Electrocardiogram Report ---
Test Reason : Blood Pressure : / mmHG Vent. Rate : 094 BPM Atrial Rate : 094 BPM P-R Int : 126 ms QRS Dur : 134 ms QT Int : 380 ms P-R-T Axes : 006 -72 059 degrees QTc Int : 475 ms Sinus rhythm with marked sinus arrhythmia Premature atrial complexes Right bundle branch block Left anterior fascicular block Bifascicular block Abnormal ECG When compared with ECG of 02-OCT-2021 21:47, Premature atrial complexes are now Present Confirmed by Elder Rodriguez [id number] on 03/02/2022 5:50:07 AM Referred By: REFERRED SELF Confirmed By:Elder Rodriguez
[2022-03-02] MEDS: LEVOTHYROXINE SODIUM 25 MCG TABLET PO SCH (06:19)
[2022-03-02] MEDS: FLUTICASONE PROPIONATE NA SPR 16 GM BTL SCH ×2 (07:47→20:21)
[2022-03-02] MEDS: LIDOCAINE 5% 1 PATCH TD SCH (07:47)
[2022-03-02] MEDS: HEPARIN SOD 5,000 UNIT/0.5 ML VIAL SQ SCH ×2 (07:48→20:20)
[2022-03-02] MEDS: INSULIN ASPART PER UNIT SC SCH ×4 (08:31→20:37)
--- NOTE | 2022-03-02 09:31 | Hospitalist Progress Note ---
Date of Service March 02, 2022 Assessment & Plan (1) Fall: Plan: - Per patient and son, mechanical in nature with patient just feeling "weak." Possibly some orthostasis from micturition -CTT-spine: Osteopenia with old wedge deformities in mid lower thoracic spine, no acute findings. Degenerative disc disease. -Lumbar spine CT: Osteopenia, postsurgical changes, no acute changes -Head CT: No acute findings Chronic low back pain, patient has had improvement with tramadol but would avoid this if possible. Reports she has had good improvement with lidocaine patch previously, add scheduled tylenol and some oxycodone and ultram -PT/OT recommend snf (2) Diarrhea: Plan: Rule out infectious diarrhea No diarrhea morning of 03/01 Oral magnesium held for contribution to this, will resume tomorrow if diarrhea remains absent. If diarrhea returns add stool panel (3) EMY (acute kidney injury): Plan: Baseline Cr ~1.0. Cr was 1.5 on admission. Likely pre-renal from diarrhea, poor PO intake, and exacerbated by medications. - Hold furosemide, lisinopril, and spironolactone - volume resuscitated (4) Hyponatremia: Plan: Na was 129 on admission. -Lisinopril/spironolactone held (5) Elevated troponin: Plan: Troponin was 51 on admission without any chest pain. downtrending EKG not in the computer, but reviewed: Shows bifascicular block, stable from prior EKGs. - (6) Hypertension: Plan: BP is 160/100 in the ER. - Holding home lisinopril, Lasix, and spironolactone as above for EMY. - High threshold to treat HTN in the hospital unless evidence of end organ damage. (7) Liver cirrhosis: Plan: Presumed due to GREGORY. - EGD in 11/2020 without varices. - Resume Lasix/spironolactone once EMY has resolved. - Monitor platelets (chronically low, but presently a bit lower than her baseline of ~95) (8) Diabetes mellitus with peripheral vascular disease: Plan: Prior A1c was 7.1% in 12/2021. - Hold home metformin, glimepiride - Sliding scale insulin (9) Aortic stenosis: Plan: Mild on echo in 10/2021. No change from prior. - Monitor (10) Hypomagnesemia: Plan: Chronic, with it being attributed previously to medications. Seen by Dr. Momin in 11/2021. - Hold spironolactone as above - Monitor Mg; replete via IV while in the hospital. 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 - Heparin 5,000 units SQ Q12h bilateral lower extremity edema will recheck doppler FULL CODE per patient with son present in room and in agreement. Admission and Anticipated Discharge Date Admission Date: February 28, 2022 Subjective pt is sore all over mostly back and legs, she has not had diarrhea some leg swelling bilaterally Review of Systems Review of Systems: Mild distress and fatigue no headache, no visual changes no speech or swallowing issues no chest pain, pressure or palpitations no shortness of breath, cough or wheezes no abdominal pain, nausea or vomiting, diarrhea or constipation no dysuria, hematuria or frequency bilateral lower leg pain mid back pain, no CVA tenderness or radicular pain no bruising, bleeding or rashes no focal signs of weakness or numbness or altered sensation no complaints of anxiety or depression.. Physical Exam Physical Exam: The patient appeared chronically ill and deconditioned Vital signs as documented. Head exam is normocephalic atraumatic Neck is without JVD, thyromegaly, or carotid bruits. Lungs are diminished at the bases Cardiac exam, Rhythm is regular.. No murmurs, rubs or gallops. Abdominal exam reveals normal bowel sounds, soft non tender, no masses Extremities are bilaterally edematous and tender Neurologic exam is alert and oriented, no focal loss of strength or sensation Skin is with chronic venous stasis to legs bilaterally Psychologically is without concerns for anxiety or depression.. Results & Data Results & Data ([facility]) Vital Signs (Past 12 Hours) Vital Signs Temp Pulse Pulse Resp BP BP Pulse Ox 03/02/22 08:21 97.7 F 78 20 112/70 98 03/01/22 22:25 80 03/02/22 02:55 98.6 F 79 18 133/76 96 03/01/22 22:47 99.0 F 78 18 102/60 95 O2 Del Method 03/02/22 08:21 03/01/22 22:25 03/02/22 02:55 Room Air 03/01/22 22:47 Room Air PG Care Time/CCT Total # of Minutes Spent Total Time Spent with Patient: Total time spent is greater than 50% in coordination of care (as documented) at patient's floor/unit and/or counseling patient: Coding Level of Care Code 21877 Subseq Hosp Care Lvl 3 Diagnoses Fall W19.XXXA Diarrhea R19.7 EMY (acute kidney injury) N17.9 Hyponatremia E87.1 Elevated troponin R77.8 Hypertension I10 Liver cirrhosis K74.60 Diabetes mellitus with peripheral vascular disease E11.51 Aortic stenosis I35.0 Hypomagnesemia E83.42 DVT prophylaxis Z29.9
[2022-03-02 10:27] LABS: Basophils # (auto) 0.01 K/uL (0-0.2); Basophils % (auto) 0.2 %; Eosinophils # (auto) 0.01 K/uL (0-0.50); Eosinophils % (auto) 0.2 %; Hematocrit (blood only) 34.1 % (34.1-44.9); Hemoglobin 11.1 g/dl (12.0-16.0); Immature Granulocytes # (auto) 0.02 K/uL (0.00-0.02); Immature Granulocytes % (auto) 0.4 %; Lymphocytes # (auto) 0.35 K/uL (1.2-3.4); Lymphocytes % (auto) 6.3 %; Mean Corpuscular Hemoglobin 29.9 pg (25.0-34.0); Mean Corpuscular Hgb Conc 32.6 g/dL (32.0-36.0); Mean Corpuscular Volume 91.9 fL (80.0-100.0); Mean Platelet Volume 10.4 fL (9.4-12.3); Monocytes # (auto) 0.51 K/uL (0.24-0.82); Monocytes % (auto) 9.2 %; Neutrophils # (auto) 4.63 K/uL (1.4-6.5); Neutrophils % (auto) 83.7 %; Platelet Count 86 K/uL (130-400); RDW Coefficient of Variation 14.3 % (11.5-14.5); RDW Standard Deviation 48.5 fL (36.4-46.3); Red Blood Count 3.71 M/uL (3.93-5.22); White Blood Count 5.53 K/ul (4.8-10.8)
[2022-03-02 10:47] LABS: Calcium 7.9 mg/dl (8.5-10.1); Creatinine Clr Calc Pharmacy 27.3 ml/min; Est GFR (African American) 28.4 ml/min; Est GFR (Non-African American) 24.5 ml/min; Potassium 4.9 mmol/L (3.5-5.1)
[2022-03-02] MEDS: ACETAMINOPHEN 500 MG TAB PO SCH ×2 (14:00→20:40)
[2022-03-02] MEDS: ATORVASTATIN 10 MG TAB PO SCH (20:18)
[2022-03-02] MEDS: oxyCODONE HCL IR 5 MG TAB (IMMEDIATE RELEASE) PO PRN (20:18)
[2022-03-03] MEDS: traMADol HCL 50 MG TABLET PO PRN ×2 (02:21→17:56)
[2022-03-03] MEDS: LEVOTHYROXINE SODIUM 25 MCG TABLET PO SCH (06:00)
--- NOTE | 2022-03-03 06:45 | Ultrasound Report ---
BILATERAL LOWER EXTREMITY VENOUS DOPPLER HISTORY: Acute pain and swelling of the right lower leg rule out DVT COMPARISON STUDY: None. FINDINGS: There is normal compressibility, flow, and augmentation within the bilateral lower extremit y deep venous systems. IMPRESSION: No DVT within the right or left lower extremity. ACT 112: Negative or not required by law. Electronically signed by: Victor M Reyna M.D. 03/03/2022 6:43 AM
--- NOTE | 2022-03-03 07:58 | Hospitalist Progress Note ---
Date of Service March 03, 2022 Assessment & Plan (1) Hyponatremia: Plan: moderate hyponatremia and symptoms of fatigue persistent, fluid restriction, 150 ml of 3% hypertonic saline and follow sodium closely nephrology consult -Lisinopril/spironolactone held (2) Hyperkalemia: Plan: will check ECG give patiromer give d 50 and insulin follow (3) Fall: Plan: - Per patient and son, mechanical in nature with patient just feeling "weak." Possibly some orthostasis from micturition -CTT-spine: Osteopenia with old wedge deformities in mid lower thoracic spine, no acute findings. Degenerative disc disease. -Lumbar spine CT: Osteopenia, postsurgical changes, no acute changes -Head CT: No acute findings Chronic low back pain, patient has had improvement with tramadol but would avoid this if possible. Reports she has had good improvement with lidocaine patch previously, add scheduled tylenol and some oxycodone and ultram -PT/OT recommend snf (4) Diarrhea: Plan: Rule out infectious diarrhea No diarrhea morning of 03/01 Oral magnesium held for contribution to this, will resume tomorrow if diarrhea remains absent. If diarrhea returns add stool panel (5) EMY (acute kidney injury): Plan: Baseline Cr ~1.0. Cr was 1.5 on admission. Likely pre-renal from diarrhea, poor PO intake, and exacerbated by medications. - Hold furosemide, lisinopril, and spironolactone - volume resuscitated (6) Elevated troponin: Plan: Troponin was 51 on admission without any chest pain. downtrending EKG not in the computer, but reviewed: Shows bifascicular block, stable from prior EKGs. - (7) Hypertension: Plan: BP is 160/100 in the ER. - Holding home lisinopril, Lasix, and spironolactone as above for EMY. - High threshold to treat HTN in the hospital unless evidence of end organ damage. (8) Liver cirrhosis: Plan: Presumed due to GREGORY. - EGD in 11/2020 without varices. - Resume Lasix/spironolactone once EMY has resolved. - Monitor platelets (chronically low, but presently a bit lower than her baseline of ~95) (9) Diabetes mellitus with peripheral vascular disease: Plan: Prior A1c was 7.1% in 12/2021. - Hold home metformin, glimepiride - Sliding scale insulin (10) Aortic stenosis: Plan: Mild on echo in 10/2021. No change from prior. - Monitor (11) Hypomagnesemia: Plan: Chronic, with it being attributed previously to medications. Seen by Dr. Momin in 11/2021. - Hold spironolactone as above - Monitor Mg; replete via IV while in the hospital. 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 - Heparin 5,000 units SQ Q12h bilateral lower extremity edema will recheck doppler FULL CODE per patient with son present in room and in agreement. Admission and Anticipated Discharge Date Admission Date: February 28, 2022 Subjective pt is with fatigue and myalgias, not with confusion or seizures, has moderate hyponatremia with sodium now down to 120, pt states she has been drinking a lot of water Review of Systems Review of Systems: Mild distress and moderate fatigue no headache, no visual changes no speech or swallowing issues no chest pain, pressure or palpitations no shortness of breath, cough or wheezes no abdominal pain, nausea or vomiting, diarrhea or constipation no dysuria, hematuria or frequency bilateral lower leg pain mid back pain, no CVA tenderness or radicular pain no bruising, bleeding or rashes no focal signs of weakness or numbness or altered sensation no complaints of anxiety or depression.. Physical Exam Physical Exam: The patient appeared chronically ill and deconditioned Vital signs as documented. Head exam is normocephalic atraumatic Neck is without JVD, thyromegaly, or carotid bruits. Lungs are diminished at the bases Cardiac exam, Rhythm is regular.. No murmurs, rubs or gallops. Abdominal exam reveals normal bowel sounds, soft non tender, no masses Extremities are bilaterally edematous and tender Neurologic exam is alert and oriented, no focal loss of strength or sensation Skin is with chronic venous stasis to legs bilaterally Psychologically is without concerns for anxiety or depression.. Results & Data Results & Data ([facility]) Vital Signs (Past 12 Hours) Vital Signs Temp Pulse Resp BP Pulse Ox O2 Del Method 03/03/22 02:58 98.4 F 73 20 113/71 95 Room Air 03/02/22 23:08 97.3 F L 69 18 120/78 90 Room Air PG Care Time/CCT Total # of Minutes Spent Total Time Spent with Patient: Total time spent is greater than 50% in coordination of care (as documented) at patient's floor/unit and/or counseling patient: Coding Level of Care Code 28355 Subseq Hosp Care Lvl 3 Diagnoses Hyponatremia E87.1 Hyperkalemia E87.5 Fall W19.XXXA Diarrhea R19.7 EMY (acute kidney injury) N17.9 Elevated troponin R77.8 Hypertension I10 Liver cirrhosis K74.60 Diabetes mellitus with peripheral vascular disease E11.51 Aortic stenosis I35.0 Hypomagnesemia E83.42 DVT prophylaxis Z29.9
[2022-03-03 08:18] LABS: Hemoglobin 11.7 g/dl (12.0-16.0); Mean Corpuscular Hemoglobin 29.8 pg (25.0-34.0); Mean Corpuscular Hgb Conc 32.5 g/dL (32.0-36.0); Mean Corpuscular Volume 91.8 fL (80.0-100.0); Mean Platelet Volume 10.2 fL (9.4-12.3); Platelet Count 115 K/uL (130-400); RDW Coefficient of Variation 14.3 % (11.5-14.5); RDW Standard Deviation 48.4 fL (36.4-46.3); Red Blood Count 3.92 M/uL (3.93-5.22); White Blood Count 5.96 K/ul (4.8-10.8)
[2022-03-03] MEDS: HEPARIN SOD 5,000 UNIT/0.5 ML VIAL SQ SCH ×2 (08:43→20:34)
[2022-03-03] MEDS: LIDOCAINE 5% 1 PATCH TD SCH (08:44)
[2022-03-03] MEDS: FLUTICASONE PROPIONATE NA SPR 16 GM BTL SCH ×2 (08:44→20:30)
[2022-03-03] MEDS: ACETAMINOPHEN 500 MG TAB PO SCH ×3 (08:47→20:32)
[2022-03-03 08:52] LABS: BUN Creatinine Ratio 29.4 (10-20); Calcium 7.9 mg/dl (8.5-10.1); Creatinine Clr Calc Pharmacy 24.1 ml/min; Est GFR (African American) 24.4 ml/min; Potassium 4.9 mmol/L (3.5-5.1)
[2022-03-03] MEDS: INSULIN ASPART PER UNIT SC SCH ×4 (10:05→20:40)
[2022-03-03 13:44] LABS: BUN Creatinine Ratio 30.1 (10-20); Calcium 7.8 mg/dl (8.5-10.1); Est GFR (African American) 22.9 ml/min; Est GFR (Non-African American) 19.8 ml/min; Potassium 5.7 mmol/L (3.5-5.1)
[2022-03-03] MEDS ORDERED: STAT IV STA ×2 (14:20→19:44)
[2022-03-03] MEDS ORDERED: DEXTROSE 50% 50 ML SYRINGE IV ONE (14:26)
[2022-03-03] MEDS ORDERED: INSULIN HUMAN REGULAR PER UNIT 10 UNITS in SYRINGE 9.9 ML IV STA (14:32)
[2022-03-03] MEDS ORDERED: SODIUM CHLORIDE 3 % 150 ML IV ONE (14:45)
[2022-03-03] MEDS ORDERED: SODIUM CHLORIDE 3 % 50 ML IV ONE (14:45)
[2022-03-03] MEDS: PATIROMER CALCIUM SORBITEX 8.4 GM PACK PO SCH (15:00)
--- NOTE | 2022-03-03 16:35 | Nephrology Consultation ---
Date of Consultation March 03, 2022 Assessment & Plan (1) EMY (acute kidney injury): (2) Hyponatremia: (3) Hyperkalemia: (4) Proteinuria: (5) Lower leg edema: (6) Anemia: Plan 76-year-old female with baseline decent renal function, cr 1.0-1.1, moderate degree proteinuria with history of hypertension, diabetes, MGUS admitted after a mechanical fall at home and noted to have EMY, hyponatremia and hyperkalemia. Has been off of spironolactone. Admission noncontrast CT abdomen pelvis was negative for postrenal obstruction. Imaging otherwise unremarkable for any fracture or injury. Creatinine was 1.5 which rapidly worsened to 2.2, sodium dropped to 120 and potassium 5.7. Received 1 dose of Kayexalate. Unclear etiology for rapid worsening of renal function with multiple electrolyte abnormality, although urine output is not measured there is report of normal voiding several times last 24 hours. Blood pressure has been relatively low but no significant dizziness or lightheadedness. P.o. intake has been decent. No significant diarrhea over last few days. ?acute hyponatremia due to high ADH state with pain. -- Considering rapid drop in sodium, will give 3% saline 150 mL bolus, check renal function, serum sodium, magnesium and potassium --repeat Na now -- considering history of MGUS, proteinuria, hypoalbuminemia, will check SPEP, UPEP and free light chain ratio to see whether there is any worsening. -- accurate intake and output, low-potassium diet -- liberalize salt in diet, limit free water intake to less than 1500 mL -- check serum sodium q.4 hours Will continue to monitor closely Thank you for allowing me to participate in your patient's care. It was a pleasure to see Rosalind History of Present Illness Reason for Consultation: EMY, Hyperkalemia, acute hyponatremia Attending Physician: Antwan Lucero MD History of Present Illness Rosalind Dudley is a 76yo F with PMH HTN, Hypomagnesemia the admitted to the hospital after a fall at home. she was found to have hyponatremia and EMY with rapidly worsened over last 3 days. Nephrology consult was requested for further management. EMR records are reviewed in detail during patient's visit. Rosalind was admitted on 02/28/2022 after she presented with generalized weakness, diarrhea and poor p.o. intake and a mechanical fall at home. She fell in her bathroom as she was feeling very weak. No loss of consciousness, dizziness, lightheadedness or palpitation. On admission all imaging including noncontrast CT abdomen pelvis was otherwise unremarkable. Admission lab showed sodium of 129 which improved to 131 but again rapidly dropped over last 2 days and this afternoon sodium was noted to be 120. has normal renal function with baseline creatinine 1.0-1.1. On admission creatinine was 1.5 which again rapidly worsened to creatinine of 2.2 this afternoon associated with hyperkalemia on admission potassium was 5.2, she was previously on spironolactone for hypomagnesemia, which has been on hold. Potassium improved in between but this afternoon lab showed potassium was 5.7. Urine output unmeasured but she feels like she has been voiding normally. Urine osmolality was above 400. albumin was low at 2.8. Has moderate degree proteinuria. Has h/o chronic hypomagnesemia and lower extremity edema. Magnesium has been low, the lowest was 0.9 mg 2 years ago, currently she is taking magnesium supplement and 1 tablet 3 times a day. was started on spironolactone with slight improvement in magnesium to 1.7, could not tolerate amiloride because of diarrhea Previously she was on pantoprazole which she stopped more than a year ago and taking H2 mirta. Denies chronic diarrhea. She has moderate degree proteinuria with history of diabetes and morbid obesity, has been on lisinopril 10 mg daily. no history of chronic NSAID use. She denies regular alcohol intake. Never smoker. Lives at home with her son, . Used to work at [employer] and retired on disability. Her brother Josafat pérez has stage III a/B CKD. Past medical history significant for hypertension, well controlled at home with systolic blood pressure around 131-144 and diastolic around 70s, currently on lisinopril 10 mg daily. Diabetes, diagnosed in 2002, well controlled on only metformin 500 mg daily and glimepiride 1 mg twice a day. No history of diabetic retinopathy, coronary artery disease or peripheral vascular disease. last echo showed EF 50-55% with mild concentric LVH. Has obesity and GERD, pituitary macroadenoma, follows with Neurology, asymptomatic and stable. Has history of MGUS, had bone marrow biopsy 3 years ago, follows with Oncology, stable. h/o GREGORY, Recent EGD with no varicose vein. History of PE in 2020, completed anticoagulation. history of bilateral knee replacement. Has chronic lower extremity edema, has been taking Lasix 40 mg/d but continues to have significant bilateral lower extremity edema. Rosalind continues to have significant pain since the fall, no SOB, CP. Allergies Allergy/AdvReac Type Severity Reaction Status Date / Time No Known Allergies Allergy Verified 02/28/22 22:24 Home Medications Medication Instructions Recorded Confirmed Type cholecalciferol (vitamin D3) 50 2,000 unit PO QAM 07/01/18 02/28/22 History mcg (2,000 unit) capsule (Vitamin D3) docusate sodium 100 mg capsule 100 mg PO BID PRN Constipation 07/01/18 02/28/22 History multivitamin 1 tab PO QAM 10/14/19 02/28/22 History vitamin E 268 mg (400 unit) capsule 400 unit PO QAM 08/14/20 02/28/22 History atorvastatin 10 mg tablet 10 mg PO HS #90 tabs 08/12/21 02/28/22 Rx glimepiride 1 mg tablet 1 mg PO BID #180 tabs 08/12/21 02/28/22 Rx lisinopril 10 mg tablet 10 mg PO HS #90 tabs 08/12/21 02/28/22 Rx metformin 500 mg tablet 500 mg PO QAM 10/02/21 02/28/22 History coenzyme Q10 200 mg capsule 200 mg PO DAILY 11/01/21 02/28/22 History furosemide 20 mg tablet 20 mg PO DAILY edema #30 tabs 12/07/21 02/28/22 Rx spironolactone 25 mg tablet 25 mg PO DAILY #30 tabs 12/07/21 02/28/22 Rx levothyroxine 25 mcg tablet 25 mcg PO DAILY #90 tabs 01/11/22 02/28/22 Rx magnesium chloride 64 mg 128 mg PO QID 01/11/22 02/28/22 History (magnesium chloride) tablet,delayed release Patient History Medical History Acute DVT (deep venous thrombosis) 2018> no known cause > Filter to right groin 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 no environmental health officer Chronic back pain Chronic deep vein thrombosis (DVT) 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 Diverticular hemorrhage resolved Esophageal varices determined by endoscopy Fever GERD (gastroesophageal reflux disease) GI bleed none at present Hyperlipemia Lower leg edema Migraine Monoclonal gammopathy Obesity Osteoarthritis Proteinuria Pulmonary embolism 2019 > no known cause > Filter to right groin Thrombocytopenia Vertigo Surgical History History of bilateral breast reduction surgery History of bilateral cataract extraction History of carpal tunnel release of both wrists History of section x3 History of colonoscopy History of dilatation and curettage History of esophagogastroduodenoscopy (EGD) History of laparoscopic cholecystectomy History of lumbar spinal fusion hardware in place History of tonsillectomy History of tooth extraction all teeth History of total left knee replacement (TKR) History of total right knee replacement (TKR) Family History Mother Family history of diabetes mellitus Brother Family history of diabetes mellitus 3 brothers Colorectal cancer Myocardial infarction x 2 Father Myocardial infarction Denies family history of Ovarian cancer Prostate cancer Breast cancer Social History Smoking Status: Former smoker Tobacco Type: Cigarettes Age Started Using Tobacco: 15; Age Quit Using Tobacco: 21; Cigarettes Per Day: 1 pack Q 4 days; Second Hand Exposure: No; Do You Dip or Chew Tobacco: No; Tobacco Cessation Education Requested by Patient: No Hx Alcohol Use: No Hx Substance Use: No Preferred Language: Omani Communication Ability: Effective Visual Impairment: Limited Hearing Ability: Normal Edge Burnisher Required: No Beliefs That Will Affect Care: None marital status: / Current Living Situation: Family Current Living Situation Comment: Lives with son current occupational status: retired How many Children do You have: 3 Other Information That Helps Us Care for You: No Feels Safe at Home: Yes Safety Concerns: Feels Safe At This Time Childhood Exposure to Second-Hand Smoke: Yes caffeine: Yes (tea) during the past year weight has: remained stable Dental Care, Regularly: No Physical Activity Frequency: Does not Exercise Seatbelt Use: always Sunscreen Use: No Do you think of yourself as: straight/heterosexual Gender Identity: Female Assistive Devices: Glasses and Walker Review of Systems Review of Systems: detailed review of system was done and pertinent positives and negatives are mentioned above. Physical Exam Constitutional: WD/WN, vitals as above + morbidly obese; no acute distress Eyes: + anicteric sclerae Neck: normal visual inspection Thyroid: no thyromegaly Respiratory: no respiratory distress Auscultation: lungs clear to auscultation bilaterally Cardiovascular: Rate/Rhythm: regular rate and regular rhythm Heart Sounds: normal S1 and normal S2 Extremities: + edema (1+ b/l le edema) Gastrointestinal (Abdomen): Inspection/Auscultation: abdomen normal to inspection and normal bowel sounds Percussion/Palpation: abdomen soft; abdomen nontender Musculoskeletal: Extremities: extremities normal to inspection Skin: no rashes Neurologic: no focal motor deficits and not confused Psychiatric: Orientation: alert and oriented x 3 Affect: euthymic affect Results & Data ([facility]) Vital Signs (Past 12 Hours) Vital Signs Temp Pulse Pulse Resp BP Pulse Ox O2 Del Method 03/03/22 15:42 36.6 C 68 18 114/71 97 Room Air 03/03/22 11:06 79 03/03/22 10:54 36.9 C 66 18 109/64 94 Room Air 03/03/22 08:28 36.6 C 81 18 122/77 94 Room Air PG Care Time/CCT Total # of Minutes Spent Total Time Spent with Patient: Total time spent is greater than 50% in coordination of care (as documented) at patient's floor/unit and/or counseling patient: Coding Level of Care Code 13301 Initial Inpt Care Lvl 3 Diagnoses EMY (acute kidney injury) N17.9 Hyponatremia E87.1 Hyperkalemia E87.5 Proteinuria R80.9 Lower leg edema R60.0 Anemia D64.9
[2022-03-03 16:54] LABS: BUN Creatinine Ratio 31.6 (10-20); Calcium 7.4 mg/dl (8.5-10.1); Creatinine Clr Calc Pharmacy 23.1 ml/min; Est GFR (African American) 23.1 ml/min; Est GFR (Non-African American) 19.9 ml/min; Magnesium 1.8 mg/dl (1.7-2.4); Potassium 5.6 mmol/L (3.5-5.1)
[2022-03-03 19:00] LABS: Albumin Level 2.4 gm/dl (3.4-5.0); BUN Creatinine Ratio 30.2 (10-20); Calcium 7.7 mg/dl (8.5-10.1); Creatinine Clr Calc Pharmacy 22.7 ml/min; Est GFR (African American) 22.6 ml/min; Est GFR (Non-African American) 19.5 ml/min; Phosphorus 3.9 mg/dl (2.5-4.9); Potassium 5.4 mmol/L (3.5-5.1)
[2022-03-03] MEDS ORDERED: PATIROMER CALCIUM SORBITEX 8.4 GM PACK PO ONE (19:29)
[2022-03-03] MEDS ORDERED: SODIUM CHLORIDE 3 % 200 ML IV ONE (19:44)
[2022-03-03] MEDS: ATORVASTATIN 10 MG TAB PO SCH (20:32)
[2022-03-03] MEDS: oxyCODONE HCL IR 5 MG TAB (IMMEDIATE RELEASE) PO PRN (23:04)
[2022-03-03 23:26] LABS: Albumin Level 2.2 gm/dl (3.4-5.0); BUN Creatinine Ratio 27.7 (10-20); Calcium 7.9 mg/dl (8.5-10.1); Creatinine Clr Calc Pharmacy 20.8 ml/min; Est GFR (African American) 20.3 ml/min; Est GFR (Non-African American) 17.6 ml/min; Phosphorus 4.3 mg/dl (2.5-4.9); Potassium 4.9 mmol/L (3.5-5.1)
[2022-03-04 04:51] LABS: Appearance Urine Clear (Clear); Bacteria Urine Automated Negative (Negative); Bilirubin Urine Negative (Negative); Blood Urine 3+ (Negative); Color Urine Yellow; Epithelial Cell Urine Auto >30 /lpf (0-5); Glucose Urine UA Negative (Negative); Ketones Urine Negative (Negative); Leukocyte Esterase Urine 2+ (Negative); Nitrite Urine Negative (Negative); Protein Urine Trace (Negative); RBC Urine Automated >30 /hpf (0-4); Specific Gravity Urine 1.011 (1.000-1.030); Urobilinogen Urine Negative (Negative)
[2022-03-04 05:19] LABS: Creatinine Urine Random 68.1 mg/dl; Protein Creatinine Ratio Urine 0.4 (0-0.2); Total Protein Urine Random 27.4 mg/dl (0-11.9)
[2022-03-04] MEDS: LEVOTHYROXINE SODIUM 25 MCG TABLET PO SCH (05:38)
[2022-03-04 07:37] LABS: Hematocrit (blood only) 33.1 % (34.1-44.9); Hemoglobin 11.1 g/dl (12.0-16.0); Mean Corpuscular Hemoglobin 29.4 pg (25.0-34.0); Mean Corpuscular Hgb Conc 33.5 g/dL (32.0-36.0); Mean Corpuscular Volume 87.6 fL (80.0-100.0); Mean Platelet Volume 10.3 fL (9.4-12.3); Platelet Count 129 K/uL (130-400); RDW Standard Deviation 44.9 fL (36.4-46.3); Red Blood Count 3.78 M/uL (3.93-5.22); White Blood Count 7.26 K/ul (4.8-10.8)
[2022-03-04 08:00] LABS: Albumin Level 2.4 gm/dl (3.4-5.0); BUN Creatinine Ratio 31.7 (10-20); Calcium 8.6 mg/dl (8.5-10.1); Creatinine Clr Calc Pharmacy 23.1 ml/min; Est GFR (African American) 23.2 ml/min; Potassium 5.5 mmol/L (3.5-5.1)
[2022-03-04] MEDS: ACETAMINOPHEN 500 MG TAB PO SCH ×3 (08:33→20:24)
[2022-03-04] MEDS: PATIROMER CALCIUM SORBITEX 8.4 GM PACK PO SCH (08:34)
[2022-03-04] MEDS: LIDOCAINE 5% 1 PATCH TD SCH (08:34)
[2022-03-04] MEDS: HEPARIN SOD 5,000 UNIT/0.5 ML VIAL SQ SCH ×2 (08:34→20:25)
[2022-03-04] MEDS: FLUTICASONE PROPIONATE NA SPR 16 GM BTL SCH ×2 (08:34→20:23)
[2022-03-04] MEDS: INSULIN ASPART PER UNIT SC SCH ×4 (08:50→20:25)
[2022-03-04] MEDS ORDERED: PATIROMER CALCIUM SORBITEX 8.4 GM PACK PO SCH (11:00)
[2022-03-04] MEDS: traMADol HCL 50 MG TABLET PO PRN ×2 (11:42→22:17)
--- NOTE | 2022-03-04 11:52 | Nephrology Progress Note ---
Date of Service March 04, 2022 Assessment & Plan (1) EMY (acute kidney injury): (2) Hyponatremia: (3) Hyperkalemia: (4) Proteinuria: (5) Lower leg edema: (6) Anemia: Plan 76-year-old female with baseline decent renal function, cr 1.0-1.1, moderate degree proteinuria with history of hypertension, diabetes, MGUS admitted after a mechanical fall at home and noted to have EMY, hyponatremia and hyperkalemia. Has been off of spironolactone. Admission noncontrast CT abdomen pelvis was negative for postrenal obstruction. Imaging otherwise unremarkable for any fracture or injury. Creatinine was 1.5 which rapidly worsened to 2.2, sodium dropped to 120 and potassium 5.7. Received 1 dose of Kayexalate. Unclear etiology for rapid worsening of renal function with multiple electrolyte abnormality, has decent urine output. Blood pressure relatively low but asymptomatic. ?acute hyponatremia due to high ADH state with pain. TSH, random cortisol normal. Sodium improved to 125 after total of 350 mL of 3% saline. Potassium again elevated 5.5, on [place] daily. Although creatinine again slightly increased but rate of rise in creatinine slow down. Repeat urinalysis showed trace proteinuria but continued to have microscopic hematuria. -- Check CPK -- start on sodium chloride 2 tab b.i.d. monitor serum sodium q.12 hours and renal function -- accurate intake and output, low-potassium diet -- liberalize salt in diet, limit free water intake to less than 1500 mL Will continue to monitor closely. Admission and Anticipated Discharge Date Admission Date: February 28, 2022 Alfredito Boyer was seen and examined this morning. She continues to have pain and myalgia in lower abdomen and flank area which she has been experiencing since the fall. Appetite decent. No fever or chills. Has decent urine output, 850 mL over last 24 hour. Potassium again elevated at 5.5. Sodium slightly improved this morning currently at 125. Slow worsening of renal function, creatinine 2.5 BUN 72. blood pressure relatively low but acceptable. No dizziness or lightheadedness. Review of Systems 2 Review of Systems: detailed review of system was done and pertinent positives and negatives are mentioned above. Physical Exam Constitutional: WD/WN, vitals as above + morbidly obese; no acute distress Eyes: + anicteric sclerae Respiratory: no respiratory distress Auscultation: lungs clear to auscultation bilaterally Cardiovascular: Rate/Rhythm: regular rate and regular rhythm Heart Sounds: normal S1 and normal S2 Extremities: + edema (1+ b/l le edema) Skin: no rashes Neurologic: no focal motor deficits and not confused Psychiatric: Orientation: alert and oriented x 3 Affect: euthymic affect Results & Data ([facility]) Vital Signs (Past 12 Hours) Vital Signs Temp Pulse Pulse Resp BP Pulse Ox O2 Del Method 03/04/22 07:43 Room Air 03/04/22 07:00 77 03/04/22 06:40 36.8 C 77 20 119/62 95 Room Air 03/04/22 03:44 36.7 C 74 20 118/57 L 96 Room Air 03/04/22 01:28 68 PG Care Time/CCT Total # of Minutes Spent Total Time Spent with Patient: Total time spent is greater than 50% in coordination of care (as documented) at patient's floor/unit and/or counseling patient: Coding Level of Care Code 23883 Subseq Hosp Care Lvl 3 Diagnoses EMY (acute kidney injury) N17.9 Hyponatremia E87.1 Hyperkalemia E87.5 Proteinuria R80.9 Lower leg edema R60.0 Anemia D64.9
[2022-03-04] MEDS: SODIUM CHLORIDE 1 GM TABLET PO SCH ×2 (12:51→20:23)
[2022-03-04] MEDS: oxyCODONE HCL IR 5 MG TAB (IMMEDIATE RELEASE) PO PRN (17:34)
--- NOTE | 2022-03-04 17:53 | Hospitalist Progress Note ---
Date of Service March 04, 2022 Assessment & Plan (1) Hyponatremia: Plan: moderate hyponatremia and symptoms of fatigue persistent, fluid restriction , hypertonic saline given 03/03/22 -Lisinopril/spironolactone held (2) Hyperkalemia: Plan: no acute changes on ECG give patiromer x 2 03/03/22 given d 50 and insulin follow (3) Fall: Plan: - Per patient and son, mechanical in nature with patient just feeling "weak." Possibly some orthostasis from micturition -CTT-spine: Osteopenia with old wedge deformities in mid lower thoracic spine, no acute findings. Degenerative disc disease. -Lumbar spine CT: Osteopenia, postsurgical changes, no acute changes -Head CT: No acute findings Chronic low back pain, patient has had improvement with tramadol but would avoid this if possible. Reports she has had good improvement with lidocaine patch previously, add scheduled tylenol and some oxycodone and ultram -PT/OT recommend snf (4) Diarrhea: Plan: Rule out infectious diarrhea No diarrhea morning of 03/01 Oral magnesium held for contribution to this, will resume tomorrow if diarrhea remains absent. If diarrhea returns add stool panel (5) EMY (acute kidney injury): Plan: Baseline Cr ~1.0. Cr was 1.5 on admission. Likely pre-renal from diarrhea, poor PO intake, and exacerbated by medications. - Hold furosemide, lisinopril, and spironolactone - volume resuscitated (6) Elevated troponin: Plan: Troponin was 51 on admission without any chest pain. downtrending EKG not in the computer, but reviewed: Shows bifascicular block, stable from prior EKGs. - (7) Hypertension: Plan: BP is 160/100 in the ER. - Holding home lisinopril, Lasix, and spironolactone as above for EMY. - High threshold to treat HTN in the hospital unless evidence of end organ damage. (8) Liver cirrhosis: Plan: Presumed due to GREGORY. - EGD in 11/2020 without varices. - Resume Lasix/spironolactone once EMY has resolved. - Monitor platelets (chronically low, but presently a bit lower than her baseline of ~95) (9) Diabetes mellitus with peripheral vascular disease: Plan: Prior A1c was 7.1% in 12/2021. - Hold home metformin, glimepiride - Sliding scale insulin (10) Aortic stenosis: Plan: Mild on echo in 10/2021. No change from prior. - Monitor (11) Hypomagnesemia: Plan: Chronic, with it being attributed previously to medications. Seen by Dr. Momin in 11/2021. - Hold spironolactone as above - Monitor Mg; replete via IV while in the hospital. 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 - Heparin 5,000 units SQ Q12h bilateral lower extremity edema will recheck doppler FULL CODE per patient with son present in room and in agreement. Admission and Anticipated Discharge Date Admission Date: February 28, 2022 Subjective Patient was seen in company of her family she is in no active distress she does have some knee pain which is chronic for her Review of Systems Review of Systems: Mild distress and moderate fatigue no headache, no visual changes no speech or swallowing issues no chest pain, pressure or palpitations no shortness of breath, cough or wheezes no abdominal pain, nausea or vomiting, diarrhea or constipation no dysuria, hematuria or frequency bilateral lower leg pain mid back pain, no CVA tenderness or radicular pain no bruising, bleeding or rashes no focal signs of weakness or numbness or altered sensation no complaints of anxiety or depression.. Physical Exam Physical Exam: The patient appeared chronically ill and deconditioned Vital signs as documented. Head exam is normocephalic atraumatic Neck is without JVD, thyromegaly, or carotid bruits. Lungs are diminished at the bases Cardiac exam, Rhythm is regular.. No murmurs, rubs or gallops. Abdominal exam reveals normal bowel sounds, soft non tender, no masses Extremities are bilaterally edematous and tender Neurologic exam is alert and oriented, no focal loss of strength or sensation Skin is with chronic venous stasis to legs bilaterally Psychologically is without concerns for anxiety or depression.. Results & Data Results & Data ([facility]) Vital Signs (Past 12 Hours) Vital Signs Temp Pulse Pulse Resp BP Pulse Ox O2 Del Method 03/04/22 16:29 97.7 F 76 16 126/72 99 Room Air 03/04/22 15:20 71 03/04/22 12:45 98.4 F 74 16 132/64 96 Room Air 03/04/22 07:43 Room Air 03/04/22 07:00 77 03/04/22 06:40 98.2 F 77 20 119/62 95 Room Air PG Care Time/CCT Total # of Minutes Spent Total Time Spent with Patient: Total time spent is greater than 50% in coordination of care (as documented) at patient's floor/unit and/or counseling patient: Coding Level of Care Code 32698 Subseq Hosp Care Lvl 2 Diagnoses Hyponatremia E87.1 Hyperkalemia E87.5 Fall W19.XXXA Diarrhea R19.7 EMY (acute kidney injury) N17.9 Elevated troponin R77.8 Hypertension I10 Liver cirrhosis K74.60 Diabetes mellitus with peripheral vascular disease E11.51 Aortic stenosis I35.0 Hypomagnesemia E83.42 DVT prophylaxis Z29.9
[2022-03-04] MEDS: ATORVASTATIN 10 MG TAB PO SCH (20:24)
[2022-03-05] MEDS: traMADol HCL 50 MG TABLET PO PRN (05:37)
[2022-03-05] MEDS: LEVOTHYROXINE SODIUM 25 MCG TABLET PO SCH (05:37)
--- NOTE | 2022-03-05 05:50 | Electrocardiogram Report ---
Test Reason : Blood Pressure : / mmHG Vent. Rate : 071 BPM Atrial Rate : 071 BPM P-R Int : 130 ms QRS Dur : 142 ms QT Int : 420 ms P-R-T Axes : -07 -61 005 degrees QTc Int : 456 ms Normal sinus rhythm with sinus arrhythmia Right bundle branch block Left anterior fascicular block Bifascicular block Minimal voltage criteria for LVH, may be normal variant Abnormal ECG When compared with ECG of 28-FEB-2022 20:19, Premature atrial complexes are no longer Present T wave inversion now evident in Inferior leads Confirmed by Elder Rodriguez ([id number]) on 03/05/2022 5:49:51 AM Referred By: REFERRED SELF Confirmed By:Elder Rodriguez
[2022-03-05 06:13] LABS: Albumin Level 2.2 gm/dl (3.4-5.0); BUN Creatinine Ratio 36.4 (10-20); Calcium 8.2 mg/dl (8.5-10.1); Creatinine Clr Calc Pharmacy 24.2 ml/min; Est GFR (African American) 24.5 ml/min; Est GFR (Non-African American) 21.1 ml/min; Phosphorus 4.3 mg/dl (2.5-4.9); Potassium 5.4 mmol/L (3.5-5.1)
[2022-03-05] MEDS: SODIUM CHLORIDE 1 GM TABLET PO SCH ×2 (08:07→15:13)
[2022-03-05] MEDS: ACETAMINOPHEN 500 MG TAB PO SCH ×3 (08:07→20:10)
[2022-03-05] MEDS: HEPARIN SOD 5,000 UNIT/0.5 ML VIAL SQ SCH ×2 (08:08→20:11)
[2022-03-05] MEDS: FLUTICASONE PROPIONATE NA SPR 16 GM BTL SCH ×2 (08:08→20:10)
[2022-03-05] MEDS: INSULIN ASPART PER UNIT SC SCH ×4 (08:45→20:29)
[2022-03-05] MEDS: LIDOCAINE 5% 1 PATCH TD SCH (09:11)
[2022-03-05] MEDS: PATIROMER CALCIUM SORBITEX 8.4 GM PACK PO SCH (10:30)
[2022-03-05 12:47] LABS: Albumin Level 2.3 gm/dl (3.4-5.0); Calcium 8.3 mg/dl (8.5-10.1); Creatinine Clr Calc Pharmacy 22.5 ml/min; Est GFR (African American) 24.6 ml/min; Est GFR (Non-African American) 21.3 ml/min; Phosphorus 4.5 mg/dl (2.5-4.9); Potassium 5.8 mmol/L (3.5-5.1)
[2022-03-05] MEDS ORDERED: STAT IV STA ×2 (13:51→21:24)
--- NOTE | 2022-03-05 14:05 | Nephrology Progress Note ---
Date of Service March 05, 2022 Assessment & Plan (1) EMY (acute kidney injury): Plan: Non-oliguric. Clinically consistent with prerenal causes from dehydration with superimposed ATN. Baseline creatinine 1.2 mg/dL. Creatinine stable at 2.17 mg/dL this AM. Associated hyperkalemia noted. Lisinopril, spironolactone, and furosemide held. Medications currently appropriately dosed for kidney dysfunction. Volume status acceptable. No emergent indication for dialysis. Medical management for hyponatremia and hypokalemia. Low potassium diet. Document strict I/O's. Repeat metabolic profile tomorrow AM. (2) Hyponatremia: Plan: Volume status improving. Intravascular depletion improved. Continue PO free water restriction. Additional 100 ml 3% saline ordered today. Continue oral NaCl 2 grams BID. Repeat metabolic profile this evening. (3) Hyperkalemia: Plan: Attributed to history of GIOVANY + spironolactone + EMY. Anticipate improvement with improved UOP. Low potassium diet. Daily Patiromer. Recheck this evening. Clinical presentation atypical for adrenal insufficiency. AM cortisol 15, no additional steroid therapy required. (4) Proteinuria: Plan: Outpatient follow up with Dr. Momin post discharge. Repeat SIEP pending. (5) Lower leg edema: Plan: Improving with feet elevation and improved UOP. Diuretics held. Admission and Anticipated Discharge Date Admission Date: February 28, 2022 Subjective No acute events overnight. Rosalind continues to endorse some chronic pain in her left knee. Otherwise, she feels well. She reports some dry mouth. She also acknowledges some swelling in her ankles which has improved over the past couple of days while keeping them elevated. Appetite is good. Diarrhea resolved. Review of Systems Review of Systems: All systems reviewed & are unremarkable except as noted in HPI & below Gastrointestinal: + bloating and + excessive flatulence; no abdominal pain Physical Exam Constitutional: well developed and + morbidly obese; no acute distress Eyes: no scleral abnormality and no corneal abnormality ENMT: Mouth: + dry oral mucous membranes; no oral mucosal abnormality Neck: normal visual inspection and trachea midline Respiratory: normal respiratory effort Auscultation: lungs clear to auscultation bilaterally Cardiovascular: Rate/Rhythm: regular rate Heart Sounds: normal S1 and normal S2 Extremities: no edema Musculoskeletal: Extremities: no cyanosis and no clubbing Skin: normal turgor; no lesions Neurologic: Motor/Sensory: no tremor and no asterixis Psychiatric: Orientation: alert and oriented x 3 Results & Data ([facility]) Vital Signs (Past 12 Hours) Vital Signs Temp Pulse Pulse Resp BP Pulse Ox O2 Del Method 03/05/22 11:56 36.7 C 77 16 133/67 94 03/05/22 09:14 74 03/05/22 08:11 36.9 C 71 18 182/79 H 97 Room Air 03/05/22 04:00 36.9 C 77 18 112/61 92 Room Air Laboratory Results Laboratory Results - last 24 hr 03/04/22 03/04/22 03/04/22 16:57 17:47 20:19 Sodium 121 L Potassium Chloride Carbon Dioxide Anion Gap BUN Creatinine Est Cr Clr Drug Dosing Est GFR ( Amer) Est GFR (Non-Af Amer) BUN/Creatinine Ratio Glucose POC Glucose 147 H 129 H Calcium Phosphorus Albumin 03/05/22 03/05/22 03/05/22 05:21 07:48 11:24 Sodium 124 L Potassium 5.4 H Chloride 95 L Carbon Dioxide 23 Anion Gap 6 BUN 79 H Creatinine 2.17 H Est Cr Clr Drug Dosing 24.2 Est GFR ( Amer) 24.5 Est GFR (Non-Af Amer) 21.1 BUN/Creatinine Ratio 36.4 H Glucose 119 H POC Glucose 126 H 129 H Calcium 8.2 L Phosphorus 4.3 Albumin 2.2 L 03/05/22 12:13 Sodium 125 L Potassium 5.8 H Chloride 98 Carbon Dioxide 22 Anion Gap 5 BUN 82 H Creatinine 2.16 H Est Cr Clr Drug Dosing 22.5 Est GFR ( Amer) 24.6 Est GFR (Non-Af Amer) 21.3 BUN/Creatinine Ratio 38.0 H Glucose 140 H POC Glucose Calcium 8.3 L Phosphorus 4.5 Albumin 2.3 L PG Care Time/CCT Total # of Minutes Spent Total Time Spent with Patient: Total time spent is greater than 50% in coordination of care (as documented) at patient's floor/unit and/or counseling patient: Coding Level of Care Code 88652 Subseq Hosp Care Lvl 3 Diagnoses EMY (acute kidney injury) N17.9 Hyponatremia E87.1 Hyperkalemia E87.5 Proteinuria R80.9 Lower leg edema R60.0
[2022-03-05] MEDS ORDERED: SODIUM CHLORIDE 3 % 100 ML IV ONE ×2 (14:15→21:24)
--- NOTE | 2022-03-05 17:15 | Hospitalist Progress Note ---
Date of Service March 05, 2022 Assessment & Plan (1) Hyponatremia: Plan: moderate hyponatremia and symptoms of fatigue moderate to severe hyponatremia, with confusion(neurologic symptoms) treated with repeat doses of hypertonic saline, consider urea persistent, fluid restriction , hypertonic saline given 03/03/22 -Lisinopril/spironolactone held (2) Hyperkalemia: Plan: no acute changes on ECG give patiromer x 2 03/03/22 additional dose on 03/05/22 given d 50 and insulin initially (3) Fall: Plan: - Per patient and son, mechanical in nature with patient just feeling "weak." Possibly some orthostasis from micturition -CTT-spine: Osteopenia with old wedge deformities in mid lower thoracic spine, no acute findings. Degenerative disc disease. -Lumbar spine CT: Osteopenia, postsurgical changes, no acute changes -Head CT: No acute findings Chronic low back pain, patient has had improvement with tramadol but would avoid this if possible. Reports she has had good improvement with lidocaine patch previously, add scheduled tylenol and some oxycodone and ultram -PT/OT recommend snf (4) Diarrhea: Plan: Rule out infectious diarrhea No diarrhea morning of 03/01 Oral magnesium held for contribution to this, will resume tomorrow if diarrhea remains absent. If diarrhea returns add stool panel (5) EMY (acute kidney injury): Plan: Baseline Cr ~1.0. Cr was 1.5 on admission. Likely pre-renal from diarrhea, poor PO intake, and exacerbated by medications. - Hold furosemide, lisinopril, and spironolactone - volume resuscitated (6) Elevated troponin: Plan: Troponin was 51 on admission without any chest pain. downtrending EKG not in the computer, but reviewed: Shows bifascicular block, stable from jeffry or EKGs. - (7) Hypertension: Plan: BP is 160/100 in the ER. - Holding home lisinopril, Lasix, and spironolactone as above for EMY. - High threshold to treat HTN in the hospital unless evidence of end organ damage. (8) Liver cirrhosis: Plan: Presumed due to GREGORY. - EGD in 11/2020 without varices. - Resume Lasix/spironolactone once EMY has resolved. - Monitor platelets (chronically low, but presently a bit lower than her baseline of ~95) (9) Diabetes mellitus with peripheral vascular disease: Plan: Prior A1c was 7.1% in 12/2021. - Hold home metformin, glimepiride - Sliding scale insulin (10) Aortic stenosis: Plan: Mild on echo in 10/2021. No change from prior. - Monitor (11) Hypomagnesemia: Plan: Chronic, with it being attributed previously to medications. Seen by Dr. Momin in 11/2021. - Hold spironolactone as above - Monitor Mg; replete via IV while in the hospital. 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 - Heparin 5,000 units SQ Q12h bilateral lower extremity edema will recheck doppler FULL CODE per patient with son present in room and in agreement. Admission and Anticipated Discharge Date Admission Date: February 28, 2022 Subjective No acute events overnight. Rosalind continues to endorse some chronic pain in her left knee. Otherwise, she feels well. She reports some dry mouth. She also acknowledges some swelling in her ankles which has improved over the past couple of days while keeping them elevated. Appetite is good. Diarrhea resolved. sodium remains low, potassium remain high, given patiromer and nephrology has given additional Review of Systems Review of Systems: Mild distress and moderate fatigue no headache, no visual changes no speech or swallowing issues no chest pain, pressure or palpitations no shortness of breath, cough or wheezes no abdominal pain, nausea or vomiting, diarrhea or constipation no dysuria, hematuria or frequency bilateral lower leg pain mid back pain, no CVA tenderness or radicular pain no bruising, bleeding or rashes no focal signs of weakness or numbness or altered sensation no complaints of anxiety or depression.. Physical Exam Physical Exam: The patient appeared chronically ill and deconditioned Vital signs as documented. Head exam is normocephalic atraumatic Neck is without JVD, thyromegaly, or carotid bruits. Lungs are diminished at the bases Cardiac exam, Rhythm is regular.. No murmurs, rubs or gallops. Abdominal exam reveals normal bowel sounds, soft non tender, no masses Extremities are bilaterally edematous and tender Neurologic exam is alert and oriented, no focal loss of strength or sensation Skin is with chronic venous stasis to legs bilaterally Psychologically is without concerns for anxiety or depression.. Results & Data Results & Data ([facility]) Vital Signs (Past 12 Hours) Vital Signs Temp Pulse Pulse Resp BP Pulse Ox O2 Del Method 03/05/22 16:31 72 03/05/22 15:51 98.1 F 72 18 118/59 L 94 Room Air 03/05/22 11:56 98.1 F 77 16 133/67 94 03/05/22 09:14 74 03/05/22 08:11 98.4 F 71 18 182/79 H 97 Room Air PG Care Time/CCT Total # of Minutes Spent Total Time Spent with Patient: Total time spent is greater than 50% in coordination of care (as documented) at patient's floor/unit and/or counseling patient: Coding Level of Care Code 32876 Subseq Hosp Care Lvl 3 Diagnoses Hyponatremia E87.1 Hyperkalemia E87.5 Fall W19.XXXA Diarrhea R19.7 EMY (acute kidney injury) N17.9 Elevated troponin R77.8 Hypertension I10 Liver cirrhosis K74.60 Diabetes mellitus with peripheral vascular disease E11.51 Aortic stenosis I35.0 Hypomagnesemia E83.42 DVT prophylaxis Z29.9
[2022-03-05] MEDS: ATORVASTATIN 10 MG TAB PO SCH (20:11)
[2022-03-05 21:17] LABS: BUN Creatinine Ratio 35.8 (10-20); Calcium 8.5 mg/dl (8.5-10.1); Creatinine Clr Calc Pharmacy 21.2 ml/min; Est GFR (African American) 22.9 ml/min; Est GFR (Non-African American) 19.8 ml/min; Potassium 5.3 mmol/L (3.5-5.1)
[2022-03-06] MEDS: LEVOTHYROXINE SODIUM 25 MCG TABLET PO SCH (05:48)
[2022-03-06] MEDS: INSULIN ASPART PER UNIT SC SCH ×4 (08:25→21:15)
[2022-03-06 08:31] LABS: Albumin Level 2.3 gm/dl (3.4-5.0); BUN Creatinine Ratio 40.8 (10-20); Calcium 8.5 mg/dl (8.5-10.1); Creatinine Clr Calc Pharmacy 26.8 ml/min; Est GFR (African American) 26.9 ml/min; Est GFR (Non-African American) 23.2 ml/min; Phosphorus 4.3 mg/dl (2.5-4.9); Potassium 5.5 mmol/L (3.5-5.1)
[2022-03-06] MEDS: ACETAMINOPHEN 500 MG TAB PO SCH ×3 (08:35→20:22)
[2022-03-06] MEDS: FLUTICASONE PROPIONATE NA SPR 16 GM BTL SCH ×2 (08:35→20:25)
[2022-03-06] MEDS: HEPARIN SOD 5,000 UNIT/0.5 ML VIAL SQ SCH ×2 (08:36→20:25)
[2022-03-06] MEDS: LIDOCAINE 5% 1 PATCH TD SCH (08:36)
[2022-03-06] MEDS: PATIROMER CALCIUM SORBITEX 8.4 GM PACK PO SCH (08:36)
[2022-03-06] MEDS ORDERED: PATIROMER CALCIUM SORBITEX 8.4 GM PACK PO SCH (09:00)
[2022-03-06] MEDS ORDERED: STAT IV STA ×2 (09:09→15:04)
[2022-03-06] MEDS ORDERED: SODIUM CHLORIDE 3 % 100 ML IV ONE ×2 (10:00→15:04)
--- NOTE | 2022-03-06 10:28 | Nephrology Progress Note ---
Date of Service March 06, 2022 Assessment & Plan (1) EMY (acute kidney injury): Plan: Non-oliguric. Clinically consistent with prerenal causes from dehydration with superimposed ATN. Baseline creatinine 1.2 mg/dL. Creatinine stable at 2.0 mg/dL this AM. Persistent associated hyperkalemia and hypokalemia. Lisinopril, spironolactone, and furosemide held. Medications currently appropriately dosed for kidney dysfunction. Volume status acceptable. No emergent indication for dialysis. Continue medical management for hyponatremia and hypokalemia. Remains on daily patiromer and K restricted diet. Additional IV hypertonic saline provided this AM. Document strict I/O's. Repeat metabolic profile this afternoon requested. (2) Hyponatremia: Plan: Volume status improving. Intravascular depletion improved. Continue PO free water restriction. Additional 100 ml 3% saline ordered today. Continue oral NaCl 2 grams BID. Repeat metabolic profile this afternoon. (3) Hyperkalemia: Plan: Attributed to history of GIOVANY + spironolactone + EMY. Anticipate improvement with improved UOP and dietary restriction. Daily Patiromer. Clinical presentation atypical for adrenal insufficiency. AM cortisol 15, no additional steroid therapy required. (4) Proteinuria: Plan: Outpatient follow up with Dr. Momin post discharge. Repeat SIEP pending. (5) Lower leg edema: Plan: Improving with feet elevation and improved UOP. Diuretics held. Admission and Anticipated Discharge Date Admission Date: February 28, 2022 Subjective No acute events overnight. Rosalind feels well this AM. She continues to report bloating and flatus. Denies any diarrhea. No BM this AM. No abdominal pain. Appetite is good. Edema resolved. Continues to report dry mouth with fluid restriction. Review of Systems Review of Systems: All systems reviewed & are unremarkable except as noted in HPI & below Physical Exam Constitutional: well developed and + morbidly obese; no acute distress Eyes: no scleral abnormality and no corneal abnormality ENMT: Mouth: + dry oral mucous membranes; no oral mucosal abnormality Neck: normal visual inspection and trachea midline Respiratory: normal respiratory effort Auscultation: lungs clear to auscultation bilaterally Cardiovascular: Rate/Rhythm: regular rate Heart Sounds: normal S1 and normal S2 Extremities: no edema Musculoskeletal: Extremities: no cyanosis and no clubbing Skin: normal turgor; no lesions Neurologic: Motor/Sensory: no tremor and no asterixis Psychiatric: Orientation: alert and oriented x 3 Results & Data ([facility]) Vital Signs (Past 12 Hours) Vital Signs Temp Pulse Pulse Resp BP BP Pulse Ox 03/06/22 08:55 65 03/06/22 07:48 36.3 C L 73 18 134/65 96 03/06/22 04:00 36.4 C L 70 18 146/75 H 97 03/05/22 23:00 36.4 C L 77 18 168/75 H 96 O2 Del Method 03/06/22 08:55 03/06/22 07:48 Room Air 03/06/22 04:00 Room Air 03/05/22 23:00 Room Air Laboratory Results Laboratory Results - last 24 hr 03/05/22 03/05/22 03/05/22 11:24 12:13 16:43 Sodium 125 L Potassium 5.8 H Chloride 98 Carbon Dioxide 22 Anion Gap 5 BUN 82 H Creatinine 2.16 H Est Cr Clr Drug Dosing 22.5 Est GFR ( Amer) 24.6 Est GFR (Non-Af Amer) 21.3 BUN/Creatinine Ratio 38.0 H Glucose 140 H POC Glucose 129 H 147 H Calcium 8.3 L Phosphorus 4.5 Albumin 2.3 L 03/05/22 03/05/22 03/05/22 20:18 20:21 20:36 Sodium 126 L Potassium 5.3 H Chloride 96 L Carbon Dioxide 25 Anion Gap 5 BUN 82 H Creatinine 2.29 H Est Cr Clr Drug Dosing 21.2 Est GFR ( Amer) 22.9 Est GFR (Non-Af Amer) 19.8 BUN/Creatinine Ratio 35.8 H Glucose 166 H POC Glucose 292 H 161 H Calcium 8.5 Phosphorus Albumin 03/06/22 03/06/22 07:23 07:40 Sodium 129 L Potassium 5.5 H Chloride 100 Carbon Dioxide 24 Anion Gap 5 BUN 82 H Creatinine 2.01 H Est Cr Clr Drug Dosing 26.8 Est GFR ( Amer) 26.9 Est GFR (Non-Af Amer) 23.2 BUN/Creatinine Ratio 40.8 H Glucose 103 H POC Glucose 109 H Calcium 8.5 Phosphorus 4.3 Albumin 2.3 L PG Care Time/CCT Total # of Minutes Spent Total Time Spent with Patient: Total time spent is greater than 50% in coordination of care (as documented) at patient's floor/unit and/or counseling patient: Coding Level of Care Code 91418 Subseq Hosp Care Lvl 3 Diagnoses EMY (acute kidney injury) N17.9 Hyponatremia E87.1 Hyperkalemia E87.5 Proteinuria R80.9 Lower leg edema R60.0
[2022-03-06] MEDS: SODIUM CHLORIDE 1 GM TABLET PO SCH ×2 (11:34→17:44)
[2022-03-06 13:12] LABS: BUN Creatinine Ratio 41.8 (10-20); Calcium 8.3 mg/dl (8.5-10.1); Creatinine Clr Calc Pharmacy 27.8 ml/min; Est GFR (Non-African American) 24.2 ml/min; Potassium 5.8 mmol/L (3.5-5.1)
--- NOTE | 2022-03-06 14:17 | Hospitalist Progress Note ---
Date of Service March 06, 2022 Assessment & Plan (1) Hyponatremia: Plan: moderate hyponatremia and symptoms of fatigue moderate to severe hyponatremia, with confusion(neurologic symptoms) treated with repeat doses of hypertonic saline, consider urea persistent, fluid restriction , hypertonic saline given 03/03/22 For nonoliguric renal failure we will continue to hold-Lisinopril/spironolactone Lasix (2) Hyperkalemia: Plan: no acute changes on ECG give patiromer daily given d 50 and insulin initially (3) Fall: Plan: - Per patient and son, mechanical in nature with patient just feeling "weak." Possibly some orthostasis from micturition -CTT-spine: Osteopenia with old wedge deformities in mid lower thoracic spine, no acute findings. Degenerative disc disease. -Lumbar spine CT: Osteopenia, postsurgical changes, no acute changes -Head CT: No acute findings Chronic low back pain, patient has had improvement with tramadol but would avoid this if possible. Reports she has had good improvement with lidocaine patch previously, add scheduled tylenol and some oxycodone and ultram -PT/OT recommend snf patient is improving we will continue to offer inpatient physical therapy and see how she eventually screens (4) Diarrhea: Plan: Rule out infectious diarrhea No diarrhea morning of 03/01 Oral magnesium held for contribution to this, will resume tomorrow if diarrhea remains absent. If diarrhea returns add stool panel (5) EMY (acute kidney injury): Plan: Baseline Cr ~1.0. Cr was 1.5 on admission. Likely pre-renal from diarrhea, poor PO intake, and exacerbated by medications. - Hold furosemide, lisinopril, and spironolactone -Nonoliguric renal failure is improving (6) Elevated troponin: Plan: Troponin was 51 on admission without any chest pain. Secondary to demand ischemia downtrending EKGs bifascicular block, stable from prior EKGs. - (7) Hypertension: Plan: BP is 160/100 in the ER. - Holding home lisinopril, Lasix, and spironolactone as above for EMY. - (8) Liver cirrhosis: Plan: Presumed due to GREGORY. - EGD in 11/2020 without varices. - Resume Lasix/spironolactone once EMY has resolved. - Monitor platelets (chronically low) (9) Diabetes mellitus with peripheral vascular disease: Plan: Prior A1c was 7.1% in 12/2021. - Hold home metformin, glimepiride - Sliding scale insulin (10) Aortic stenosis: Plan: Mild on echo in 10/2021. No change from prior. - Monitor (11) Hypomagnesemia: Plan: Chronic, with it being attributed previously to medications. Seen by Dr. Momin in 11/2021. 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 - Heparin 5,000 units SQ Q12h bilateral lower extremity edema negative for thrombosis seen on lower extremity doppler FULL CODE per patient with son present in room and in agreement. Admission and Anticipated Discharge Date Admission Date: February 28, 2022 Subjective Patient reports improving complaints less back pain less leg pain not too intolerant of her fluid restriction her sodium is improving nicely. Nephrology has admitted start hypertonic saline at [facility] again today Review of Systems Review of Systems: Mild distress and moderate fatigue no headache, no visual changes no speech or swallowing issues no chest pain, pressure or palpitations no shortness of breath, cough or wheezes no abdominal pain, nausea or vomiting, diarrhea or constipation no dysuria, hematuria or frequency bilateral lower leg pain mid back pain, no CVA tenderness or radicular pain no bruising, bleeding or rashes no focal signs of weakness or numbness or altered sensation no complaints of anxiety or depression.. Physical Exam Physical Exam: The patient appeared chronically ill and deconditioned Vital signs as documented. Head exam is normocephalic atraumatic Neck is without JVD, thyromegaly, or carotid bruits. Lungs are diminished at the bases Cardiac exam, Rhythm is regular.. No murmurs, rubs or gallops. Abdominal exam reveals normal bowel sounds, soft non tender, no masses Extremities are bilaterally edematous and tender Neurologic exam is alert and oriented, no focal loss of strength or sensation Skin is with chronic venous stasis to legs bilaterally Psychologically is without concerns for anxiety or depression.. Results & Data Results & Data ([facility]) Vital Signs (Past 12 Hours) Vital Signs Temp Pulse Pulse Resp BP BP Pulse Ox 03/06/22 08:55 65 03/06/22 07:48 97.3 F L 73 18 134/65 96 03/06/22 04:00 97.5 F L 70 18 146/75 H 97 O2 Del Method 03/06/22 08:55 03/06/22 07:48 Room Air 03/06/22 04:00 Room Air PG Care Time/CCT Total # of Minutes Spent Total Time Spent with Patient: Total time spent is greater than 50% in coordination of care (as documented) at patient's floor/unit and/or counseling patient: Coding Level of Care Code 40853 Subseq Hosp Care Lvl 3 Diagnoses Hyponatremia E87.1 Hyperkalemia E87.5 Fall W19.XXXA Diarrhea R19.7 EMY (acute kidney injury) N17.9 Elevated troponin R77.8 Hypertension I10 Liver cirrhosis K74.60 Diabetes mellitus with peripheral vascular disease E11.51 Aortic stenosis I35.0 Hypomagnesemia E83.42 DVT prophylaxis Z29.9
[2022-03-06] MEDS: ATORVASTATIN 10 MG TAB PO SCH (20:23)
[2022-03-07] MEDS: LEVOTHYROXINE SODIUM 25 MCG TABLET PO SCH (06:35)
[2022-03-07 08:14] LABS: Albumin Globulin Ratio 0.5 (0.9-2); Albumin Level 2.1 gm/dl (3.4-5.0); BUN Creatinine Ratio 51.7 (10-20); Bilirubin,Total 0.8 mg/dl (0.2-1.0); Calcium 8.3 mg/dl (8.5-10.1); Creatinine Clr Calc Pharmacy 36.2 ml/min; Est GFR (African American) 38.6 ml/min; Est GFR (Non-African American) 33.3 ml/min; Phosphorus 3.4 mg/dl (2.5-4.9); Potassium 5.2 mmol/L (3.5-5.1); Total Protein 6.1 gm/dl (6.0-8.3)
[2022-03-07] MEDS: FLUTICASONE PROPIONATE NA SPR 16 GM BTL SCH ×2 (08:47→20:14)
[2022-03-07] MEDS: HEPARIN SOD 5,000 UNIT/0.5 ML VIAL SQ SCH ×2 (08:47→20:15)
[2022-03-07] MEDS: SODIUM CHLORIDE 1 GM TABLET PO SCH ×2 (08:48→17:56)
[2022-03-07] MEDS: ACETAMINOPHEN 500 MG TAB PO SCH ×3 (08:48→20:14)
[2022-03-07] MEDS: PATIROMER CALCIUM SORBITEX 8.4 GM PACK PO SCH (08:54)
[2022-03-07] MEDS: INSULIN ASPART PER UNIT SC SCH ×4 (09:03→20:26)
--- NOTE | 2022-03-07 09:29 | Nephrology Progress Note ---
Date of Service March 07, 2022 Assessment & Plan (1) EMY (acute kidney injury): Plan: Non-oliguric. Clinically consistent with prerenal causes from dehydration with superimposed ATN. Baseline creatinine 1.2 mg/dL. Creatinine improved to 1.5 mg/dL this AM. electrolyte adnormalities improving. Continue to hold lisinopril, spironolactone, and furosemide. Medications currently appropriately dosed for kidney dysfunction. Volume status acceptable. Continue medical management for hyponatremia and hypokalemia. Remains on daily patiromer and K restricted diet. Document strict I/O's. Repeat metabolic profile this afternoon requested. Maintain free water restriction, 1.5 L/d. (2) Hyponatremia: Plan: Volume status improving. Intravascular depletion improved. Continue PO free water restriction. Continue oral NaCl 2 grams BID. Repeat metabolic profile tomorrow AM. (3) Hyperkalemia: Plan: Attributed to history of GIOVANY + spironolactone + EMY. Anticipate improvement with improved UOP and dietary restriction. Stop daily patiromer once potassium normalized. Clinical presentation atypical for adrenal insufficiency. AM cortisol 15, no additional steroid therapy required. (4) Proteinuria: Plan: Outpatient follow up with Dr. Momin post discharge. Repeat SIEP pending. (5) Lower leg edema: Plan: Improved with feet elevation and improved UOP. Diuretics held. Admission and Anticipated Discharge Date Admission Date: February 28, 2022 Subjective No acute events overnight. Rosalind feels well this AM. No BM in ~1 week. Feeling constipated. Passing flatus. Lower abdominal tenderness. No fluid retention. Review of Systems Review of Systems: All systems reviewed & are unremarkable except as noted in HPI & below Physical Exam Constitutional: well developed and + morbidly obese; no acute distress Eyes: no scleral abnormality and no corneal abnormality Neck: normal visual inspection and trachea midline Respiratory: normal respiratory effort Auscultation: lungs clear to auscultation bilaterally Cardiovascular: Rate/Rhythm: regular rate Heart Sounds: normal S1, normal S2 and + murmur Extremities: no edema Gastrointestinal (Abdomen): Inspection/Auscultation: normal bowel sounds Percussion/Palpation: + abdomen tender (mild generalized) Musculoskeletal: Extremities: no cyanosis and no clubbing Skin: normal turgor; no lesions Neurologic: Motor/Sensory: no tremor and no asterixis Psychiatric: Orientation: alert and oriented x 3 Genitourinary: Lynn intact Results & Data ([facility]) Vital Signs (Past 12 Hours) Vital Signs Temp Pulse Resp BP BP Pulse Ox O2 Del Method 03/07/22 08:01 36.8 C 77 18 171/83 H 96 Room Air 03/07/22 03:35 36.3 C L 70 18 136/72 96 Room Air 03/06/22 23:08 36.4 C L 69 20 129/71 95 Room Air 03/06/22 22:11 Room Air Laboratory Results Laboratory Results - last 24 hr 03/06/22 03/06/22 03/06/22 11:35 12:41 16:27 Sodium 127 L Potassium 5.8 H Chloride 99 Carbon Dioxide 24 Anion Gap 4 BUN 81 H Creatinine 1.94 H Est Cr Clr Drug Dosing 27.8 Est GFR ( Amer) 28.0 Est GFR (Non-Af Amer) 24.2 BUN/Creatinine Ratio 41.8 H Glucose 237 H POC Glucose 219 H 154 H Calcium 8.3 L Phosphorus Total Bilirubin AST ALT Alkaline Phosphatase Total Protein Albumin Globulin Albumin/Globulin Ratio Urine Osmolality 03/06/22 03/06/22 03/07/22 17:00 20:31 07:24 Sodium Potassium Chloride Carbon Dioxide Anion Gap BUN Creatinine Est Cr Clr Drug Dosing Est GFR ( Amer) Est GFR (Non-Af Amer) BUN/Creatinine Ratio Glucose POC Glucose 141 H 125 H Calcium Phosphorus Total Bilirubin AST ALT Alkaline Phosphatase Total Protein Albumin Globulin Albumin/Globulin Ratio Urine Osmolality 331 L 03/07/22 07:36 Sodium 133 L Potassium 5.2 H Chloride 104 Carbon Dioxide 24 Anion Gap 5 BUN 77 H Creatinine 1.49 H D Est Cr Clr Drug Dosing 36.2 Est GFR ( Amer) 38.6 Est GFR (Non-Af Amer) 33.3 BUN/Creatinine Ratio 51.7 H Glucose 125 H POC Glucose Calcium 8.3 L Phosphorus 3.4 Total Bilirubin 0.8 AST 42 H ALT 24 Alkaline Phosphatase 159 H Total Protein 6.1 Albumin 2.1 L Globulin 4.0 Albumin/Globulin Ratio 0.5 L Urine Osmolality PG Care Time/CCT Total # of Minutes Spent Total Time Spent with Patient: Total time spent is greater than 50% in coordination of care (as documented) at patient's floor/unit and/or counseling patient: Coding Level of Care Code 19173 Subseq Hosp Care Lvl 3 Diagnoses EMY (acute kidney injury) N17.9 Hyponatremia E87.1 Hyperkalemia E87.5 Proteinuria R80.9 Lower leg edema R60.0
[2022-03-07] MEDS ORDERED: bisacodyL 10 MG SUPP PR STA (09:47)
[2022-03-07] MEDS ORDERED: POLYETHYLENE (MIRALAX) 17 GM PACK PO ONE (09:48)
[2022-03-07] MEDS: LIDOCAINE 5% 1 PATCH TD SCH (09:58)
[2022-03-07 11:32] LABS: Free Kappa 134.6 mg/L (3.3-19.4); Free Kappa/Lambda Ratio 1.05 (0.26-1.65); Free Lambda 128.7 mg/L (5.7-26.3)
--- NOTE | 2022-03-07 16:54 | Hospitalist Progress Note ---
Date of Service March 07, 2022 Assessment & Plan (1) Hyponatremia: Plan: moderate to severe hyponatremia, with confusion(neurologic symptoms) treated with repeat doses of hypertonic saline, consider urea persistent, fluid restriction , hypertonic saline given throught her stay with eventual good improvement of sodium For nonoliguric renal failure we will continue to hold-Lisinopril/spironolactone Lasix (2) Hyperkalemia: Plan: persistent no acute changes on ECG give patiromer daily given d 50 and insulin initially low potassium diet (3) Fall: Plan: - Per patient and son, mechanical in nature with patient just feeling "weak." Possibly some orthostasis from micturition -CTT-spine: Osteopenia with old wedge deformities in mid lower thoracic spine, no acute findings. Degenerative disc disease. -Lumbar spine CT: Osteopenia, postsurgical changes, no acute changes -Head CT: No acute findings Chronic low back pain, patient has had improvement with tramadol but would avoid this if possible. Reports she has had good improvement with lidocaine patch previously, add scheduled tylenol and some oxycodone and ultram -PT/OT recommend snf patient is improving we will continue to offer inpatient physical therapy and see how she eventually screens (4) Diarrhea: Plan: resolved now constipated Oral magnesium held for contribution to this, unable to test (5) EMY (acute kidney injury): Plan: Baseline Cr ~1.0. Cr was 1.5 on admission. Likely pre-renal from diarrhea, poor PO intake, and exacerbated by medications. - Hold furosemide, lisinopril, and spironolactone -Nonoliguric renal failure is improving (6) Elevated troponin: Plan: Troponin was 51 on admission without any chest pain. Secondary to demand ischemia downtrending EKGs bifascicular block, stable from prior EKGs. - (7) Hypertension: Plan: BP is 160/100 in the ER. - Holding home lisinopril, Lasix, and spironolactone as above for EMY. - (8) Liver cirrhosis: Plan: Presumed due to GREGORY. - EGD in 11/2020 without varices. - Resume Lasix/spironolactone once EMY has resolved. - Monitor platelets (chronically low) (9) Diabetes mellitus with peripheral vascular disease: Plan: Prior A1c was 7.1% in 12/2021. - Hold home metformin, glimepiride - Sliding scale insulin (10) Aortic stenosis: Plan: Mild on echo in 10/2021. No change from prior. - Monitor (11) Hypomagnesemia: Plan: Chronic, with it being attributed previously to medications. Seen by Dr. Momin in 11/2021. 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 - Heparin 5,000 units SQ Q12h bilateral lower extremity edema negative for thrombosis seen on lower extremity doppler FULL CODE per patient with son present in room and in agreement. Admission and Anticipated Discharge Date Admission Date: February 28, 2022 Subjective Pt feels improved except for consitpaiton, at my visit was going to bedside commode to try to have bowel movement, for subacute rehab darshan 03/07 Review of Systems Review of Systems: Mild distress and fatigue no headache, no visual changes no speech or swallowing issues no chest pain, pressure or palpitations no shortness of breath, cough or wheezes no abdominal pain, nausea or vomiting, does now c/o constipation no dysuria, hematuria or frequency bilateral lower leg pain improving mid back pain, no CVA tenderness or radicular pain no bruising, bleeding or rashes no focal signs of weakness or numbness or altered sensation no complaints of anxiety or depression.. Physical Exam Physical Exam: The patient appeared chronically ill and deconditioned Vital signs as documented. Head exam is normocephalic atraumatic Neck is without JVD, thyromegaly, or carotid bruits. Lungs are diminished at the bases Cardiac exam, Rhythm is regular.. No murmurs, rubs or gallops. Abdominal exam reveals normal bowel sounds, soft non tender, no masses Extremities are bilaterally edematous and tender Neurologic exam is alert and oriented, no focal loss of strength or sensation Skin is with chronic venous stasis to legs bilaterally Psychologically is without concerns for anxiety or depression.. Results & Data Results & Data ([facility]) Vital Signs (Past 12 Hours) Vital Signs Temp Pulse Pulse Resp BP Pulse Ox O2 Del Method 03/07/22 15:21 97.9 F 69 18 164/79 H 96 Room Air 03/07/22 15:15 70 03/07/22 15:02 66 03/07/22 10:59 97.3 F L 75 16 163/80 H 98 Room Air 03/07/22 08:01 98.2 F 77 18 171/83 H 96 Room Air PG Care Time/CCT Total # of Minutes Spent Total Time Spent with Patient: Total time spent is greater than 50% in coordination of care (as documented) at patient's floor/unit and/or counseling patient: Coding Level of Care Code 19103 Subseq Hosp Care Lvl 3 Diagnoses Hyponatremia E87.1 Hyperkalemia E87.5 Fall W19.XXXA Diarrhea R19.7 EMY (acute kidney injury) N17.9 Elevated troponin R77.8 Hypertension I10 Liver cirrhosis K74.60 Diabetes mellitus with peripheral vascular disease E11.51 Aortic stenosis I35.0 Hypomagnesemia E83.42 DVT prophylaxis Z29.9
[2022-03-07 17:26] LABS: Albumin 2.1 g/dL (3.8-4.8); Alpha 1 Globulin 0.4 g/dL (0.2-0.3); Alpha 2 Globulin 0.8 g/dL (0.5-0.9); Beta-1-Globulin 0.4 g/dL (0.4-0.6); Beta-2-Globulin 0.7 g/dL (0.2-0.5); Gamma Globulin 1.4 g/dL (0.8-1.7); Monoclonal Protein Band 1 DNR g/dL (NONE DETECTED); Monoclonal Protein Band 2 DNR g/dL (NONE DETECTED); Monoclonal Protein Band 3 DNR g/dL (NONE DETECTED); Total Protein 5.9 g/dL (6.1-8.1)
[2022-03-07] MEDS: ATORVASTATIN 10 MG TAB PO SCH (20:14)
[2022-03-08] MEDS: LEVOTHYROXINE SODIUM 25 MCG TABLET PO SCH (05:35)
[2022-03-08] MEDS: INSULIN ASPART PER UNIT SC SCH ×4 (08:14→21:35)
[2022-03-08] MEDS: FLUTICASONE PROPIONATE NA SPR 16 GM BTL SCH ×2 (08:15→21:22)
[2022-03-08] MEDS: ACETAMINOPHEN 500 MG TAB PO SCH ×3 (08:16→21:21)
[2022-03-08] MEDS: LIDOCAINE 5% 1 PATCH TD SCH (08:16)
[2022-03-08] MEDS: HEPARIN SOD 5,000 UNIT/0.5 ML VIAL SQ SCH ×2 (08:16→21:22)
[2022-03-08] MEDS: POLYETHYLENE (MIRALAX) 17 GM PACK PO SCH (08:18)
[2022-03-08] MEDS: SODIUM CHLORIDE 1 GM TABLET PO SCH (08:18)
[2022-03-08] MEDS: PATIROMER CALCIUM SORBITEX 8.4 GM PACK PO SCH (08:26)
[2022-03-08 08:57] LABS: Albumin Level 2.4 gm/dl (3.4-5.0); BUN Creatinine Ratio 47.1 (10-20); Calcium 8.7 mg/dl (8.5-10.1); Creatinine Clr Calc Pharmacy 39.6 ml/min; Est GFR (African American) 43.1 ml/min; Est GFR (Non-African American) 37.2 ml/min; Magnesium 1.6 mg/dl (1.7-2.4); Phosphorus 3.2 mg/dl (2.5-4.9); Potassium 5.5 mmol/L (3.5-5.1)
[2022-03-08 09:41] LABS: Creatinine Ur 113 mg/dL (20-275); Protein, Urine Random 43 mg/dL (5-24); Ur Protein/Creat Ratio mg/g 381 mg/g creat (21-161); Urine Abnormal Protein Band 1 DNR mg/dL (NONE DETECTED); Urine Abnormal Protein Band 2 DNR mg/dL (NONE DETECTED); Urine Abnormal Protein Band 3 DNR mg/dL (NONE DETECTED); Urine Protein/Creatinine Ratio 0.381 (0.021-0.161)
--- NOTE | 2022-03-08 09:54 | Nephrology Progress Note ---
Date of Service March 08, 2022 Assessment & Plan (1) EMY (acute kidney injury): Plan: Non-oliguric. Clinically consistent with prerenal causes from dehydration with superimposed ATN. Baseline creatinine 1.2 mg/dL. Continued improvement noted. Continue to hold lisinopril, spironolactone, and furosemide. Medications currently appropriately dosed for kidney dysfunction. Volume status acceptable. Continue medical management for hyponatremia and hypokalemia. Hold patiromer now. Bowel regimen for constipation provided. Continue free water restriction. Document strict I/O's. Repeat metabolic profile tomorrow AM. Maintain free water restriction, 1.5 L/d. (2) Hyponatremia: Plan: Volume status improved. Continue PO free water restriction. Reduce oral NaCl to 2 grams daily. Repeat metabolic profile tomorrow AM. (3) Hyperkalemia: Plan: Attributed to history of GIOVANY + spironolactone + EMY. Stop daily patiromer. (4) Proteinuria: Plan: Outpatient follow up with Dr. Momin post discharge. Repeat SIEP pending. (5) Lower leg edema: Plan: Improved with feet elevation and improved UOP. Diuretics held. Admission and Anticipated Discharge Date Admission Date: February 28, 2022 Subjective No acute events overnight. Constipation persists. Able to pass small amount of stool this AM. Bloating and flatus persist. Denies significant abdominal pain. Overall, Rosalind feels reasonably well. BP running slightly high but she attributes this to discomfort. Denies any symptoms from elevated BP. Review of Systems Review of Systems: All systems reviewed & are unremarkable except as noted in HPI & below Physical Exam Constitutional: well developed and + morbidly obese; no acute distress Eyes: no scleral abnormality and no corneal abnormality ENMT: Mouth: + dry oral mucous membranes; no oral mucosal abnormality Neck: normal visual inspection and trachea midline Respiratory: normal respiratory effort Auscultation: lungs clear to aus cultation bilaterally Cardiovascular: Rate/Rhythm: regular rate Heart Sounds: normal S1, normal S2 and + murmur Extremities: no edema Gastrointestinal (Abdomen): Inspection/Auscultation: normal bowel sounds Percussion/Palpation: + abdomen tender (mild generalized) Musculoskeletal: Extremities: no cyanosis and no clubbing Skin: normal turgor; no lesions Neurologic: Motor/Sensory: no tremor and no asterixis Psychiatric: Orientation: alert and oriented x 3 Results & Data ([place]) Vital Signs (Past 12 Hours) Vital Signs Temp Pulse Pulse Resp BP Pulse Ox O2 Del Method 03/08/22 08:00 Room Air 03/08/22 07:14 65 03/08/22 06:44 36.6 C 52 L 18 181/76 H 97 Room Air 03/08/22 03:10 36.6 C 70 20 182/75 H 98 Room Air 03/07/22 23:49 36.6 C 69 18 173/72 H 97 Room Air Laboratory Results Laboratory Results - last 24 hr 03/03/22 03/03/22 03/04/22 17:28 17:40 07:10 Sodium Potassium Chloride Carbon Dioxide Anion Gap BUN Creatinine Est Cr Clr Drug Dosing Est GFR ( Amer) Est GFR (Non-Af Amer) BUN/Creatinine Ratio Glucose POC Glucose Calcium Phosphorus Magnesium Total Protein (PEP) 5.9 L Albumin Albumin (PEP) 2.1 L Rwhhw-8-Prhedgfmq 0.4 H Squka-0-Zmertcdux 0.8 Lpyl-7-Sbdzytvy 0.4 Uhbl-7-Zngazqpm 0.7 H Gamma Globulins 1.4 Monoclonal Peak 3 DNR Ser Monoclonl Protein DNR Ser Monoclonal Prot 2 DNR PEP Interpretation SEE NOTE U Random Total Protein 43 H Ur Creatinine mg/dL 113 Protein/Creatinin Ratio 0.381 H Urine Albumin (%) 63 U Nfynm-8-Zyuvhmgo (%) 1 U Apdxh-1-Qgetooqg (%) 7 U Beta Globulin (%) 9 U Gamma Globulin (%) 20 U Abnormal Prot Band 1 DNR U Abnormal Prot Band 2 DNR U Abnormal Prot Band 3 DNR Urine PEP Interpret SEE NOTE Free [place] LC, Quant 134.6 H Free Lambda LC, Quant 128.7 H Free [place]/Lambda Ratio 1.05 03/07/22 03/07/22 03/07/22 11:24 16:30 20:15 Sodium Potassium Chloride Carbon Dioxide Anion Gap BUN Creatinine Est Cr Clr Drug Dosing Est GFR ( Amer) Est GFR (Non-Af Amer) BUN/Creatinine Ratio Glucose POC Glucose 216 H 182 H 143 H Calcium Phosphorus Magnesium Total Protein (PEP) Albumin Albumin (PEP) Aqlyc-7-Rbqdpsega Zobir-4-Tqwbhbymw Gttf-5-Gxsshgyb Hael-4-Lubfrrdh Gamma Globulins Monoclonal Peak 3 Ser Monoclonl Protein Ser Monoclonal Prot 2 PEP Interpretation U Random Total Protein Ur Creatinine mg/dL Protein/Creatinin Ratio Urine Albumin (%) U Elksx-8-Ydzpceux (%) U Vxkaf-3-Oubexjfa (%) U Beta Globulin (%) U Gamma Globulin (%) U Abnormal Prot Band 1 U Abnormal Prot Band 2 U Abnormal Prot Band 3 Urine PEP Interpret Free [place] LC, Quant Free Lambda LC, Quant Free [place]/Lambda Ratio 03/08/22 03/08/22 07:26 07:42 Sodium 134 L Potassium 5.5 H Chloride 108 H Carbon Dioxide 20 L Anion Gap 6 BUN 64 H Creatinine 1.36 H Est Cr Clr Drug Dosing 39.6 Est GFR ( Amer) 43.1 Est GFR (Non-Af Amer) 37.2 BUN/Creatinine Ratio 47.1 H Glucose 124 H POC Glucose 116 H Calcium 8.7 Phosphorus 3.2 Magnesium 1.6 L Total Protein (PEP) Albumin 2.4 L Albumin (PEP) Iltug-3-[place] Amlay-3-Btjiyxtam Ibeh-2-Qxvomrlc Uysy-6-[place] Gamma Globulins Monoclonal Peak 3 Ser Monoclonl Protein Ser Monoclonal Prot 2 PEP Interpretation U Random Total Protein Ur Creatinine mg/dL Protein/Creatinin Ratio Urine Albumin (%) U Dszpx-3-Pfjustuo (%) U Kfgjz-0-Pjjralnr (%) U Beta Globulin (%) U Gamma Globulin (%) U Abnormal Prot Band 1 U Abnormal Prot Band 2 U Abnormal Prot Band 3 Urine PEP Interpret Free [place] LC, Quant Free Lambda LC, Quant Free [place]/Lambda Ratio PG Care Time/CCT Total # of Minutes Spent Total Time Spent with Patient: Total time spent is greater than 50% in coordination of care (as documented) at patient's floor/unit and/or counseling patient: Coding Level of Care Code 44975 Subseq Hosp Care Lvl 3 Diagnoses EMY (acute kidney injury) N17.9 Hyponatremia E87.1 Hyperkalemia E87.5 Proteinuria R80.9 Lower leg edema R60.0
--- NOTE | 2022-03-08 14:12 | Hospitalist Progress Note ---
Date of Service March 08, 2022 Assessment & Plan (1) Hyponatremia: Plan: Na was 129 on admission. 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 (2) Fall: Plan: Per patient and son, mechanical in nature with patient just feeling "weak." Possibly some orthostasis from micturition (though patient denies dizziness or lightheadedness prior to fall), likely exacerbated by dehydration from diarrhea and poor PO intake. Prior to this fall, patient and son deny any recent falls at home. - Plan for [facility]. (3) Diarrhea: Plan: Presumed infectious. Already resolving per patient. Possibly worsened by her high-dose oral magnesium she takes for chronic hypomagnesemia. - Hold oral magnesium - Now with constipation at times. (4) EMY (acute kidney injury): Plan: Baseline Cr ~1.0. Cr was 1.5 on admission. Likely pre-renal from diarrhea, poor PO intake, and exacerbated by medications. - Hold furosemide, lisinopril, and spironolactone - Cr now down to 1.3. (5) Elevated troponin: Plan: Troponin was 51 on admission without any chest pain. EKG not in the computer, but reviewed: Shows bifascicular block, stable from prior EKGs. - Troponins stable. Demand ischemia. (6) Hypertension: Plan: BP is 160/100 in the ER. - Holding home lisinopril, Lasix, and spironolactone as above for EMY. - High threshold to treat HTN in the hospital unless evidence of end organ damage. - Monitor (7) Liver cirrhosis: Plan: Presumed due to GREGORY. Hx of varices, but no hx of variceal bleed from my review of chart. EGD in 11/2020 without varices. - Resume Lasix/spironolactone once EMY has resolved. - Monitor platelets (chronically low, but presently a bit lower than her baseline of ~95) (8) Diabetes mellitus with peripheral vascular disease: Plan: Prior A1c was 7.1% in 12/2021. - Hold home metformin, glimepiride - Sliding scale insulin (9) Aortic stenosis: Plan: Mild on echo in 10/2021. No change from prior. - Monitor (10) Hypomagnesemia: Plan: Chronic, with it being attributed previously to medications. Seen by Dr. Momin in 11/2021. - Hold spironolactone as above - Monitor Mg; replete via IV while in the hospital. 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 - Heparin 5,000 units SQ Q12h FULL CODE per patient with son present in room and in agreement. Admission and Anticipated Discharge Date Admission Date: February 28, 2022 Subjective No major issues today. Feeling well. More BMs this morning and then again in the afternoon. Reports no fevers/chills, chest pain, shortness of breath, abdominal pain, nausea, or vomiting. Physical Exam Constitutional: WD/WN, vitals as above Eyes: EOM intact bilaterally; no conjunctival abnormality ENMT: external ear and nose normal, oropharynx normal Neck: trachea midline, no thyromegaly normal visual inspection Respiratory: normal respiratory effort, lungs clear to auscultation no respiratory distress Cardiovascular: Rate/Rhythm: regular rate and regular rhythm Gastrointestinal (Abdomen): Inspection/Auscultation: abdomen normal to inspection; abdomen not distended Musculoskeletal: no cyanosis or clubbing, extremities motor strength 5/5 Skin: no rashes, warm and dry Neurologic: moves all extremities and awake Psychiatric: Orientation: alert, oriented to person and cooperative Results & Data Results & Data ([facility]) Vital Signs (Past 12 Hours) Vital Signs Temp Pulse Pulse Resp BP Pulse Ox O2 Del Method 03/08/22 11:05 36.3 C L 66 18 146/89 H 100 Room Air 03/08/22 08:00 Room Air 03/08/22 07:14 65 03/08/22 06:44 36.6 C 52 L 18 181/76 H 97 Room Air 03/08/22 03:10 36.6 C 70 20 182/75 H 98 Room Air PG Care Time/CCT Total # of Minutes Spent Total Time Spent with Patient: Total time spent is greater than 50% in coordination of care (as documented) at patient's floor/unit and/or counseling patient: Coding Level of Care Code 32350 Subseq Hosp Care Lvl 2 Diagnoses Hyponatremia E87.1 Fall W19.XXXA Diarrhea R19.7 EMY (acute kidney injury) N17.9 Elevated troponin R77.8 Hypertension I10 Liver cirrhosis K74.60 Diabetes mellitus with peripheral vascular disease E11.51 Aortic stenosis I35.0 Hypomagnesemia E83.42 DVT prophylaxis Z29.9
[2022-03-08] MEDS: ATORVASTATIN 10 MG TAB PO SCH (21:21)
[2022-03-09] MEDS ORDERED: MICONAZOLE NITRATE POWDER 43 GM EXT PRN (00:24)
[2022-03-09] MEDS: LEVOTHYROXINE SODIUM 25 MCG TABLET PO SCH (06:21)
[2022-03-09 07:49] LABS: Hematocrit (blood only) 30.3 % (34.1-44.9); Hemoglobin 10.3 g/dl (12.0-16.0); Mean Corpuscular Hemoglobin 29.5 pg (25.0-34.0); Mean Corpuscular Volume 86.8 fL (80.0-100.0); Mean Platelet Volume 9.5 fL (9.4-12.3); Platelet Count 165 K/uL (130-400); RDW Coefficient of Variation 15.7 % (11.5-14.5); RDW Standard Deviation 49.3 fL (36.4-46.3); Red Blood Count 3.49 M/uL (3.93-5.22); White Blood Count 7.23 K/ul (4.8-10.8)
[2022-03-09] MEDS: LIDOCAINE 5% 1 PATCH TD SCH (08:05)
[2022-03-09] MEDS: HEPARIN SOD 5,000 UNIT/0.5 ML VIAL SQ SCH (08:05)
[2022-03-09] MEDS: FLUTICASONE PROPIONATE NA SPR 16 GM BTL SCH (08:05)
[2022-03-09] MEDS: POLYETHYLENE (MIRALAX) 17 GM PACK PO SCH (08:06)
[2022-03-09] MEDS: ACETAMINOPHEN 500 MG TAB PO SCH (08:06)
[2022-03-09] MEDS: INSULIN ASPART PER UNIT SC SCH ×2 (08:07→11:55)
[2022-03-09 08:36] LABS: BUN Creatinine Ratio 47.5 (10-20); Calcium 8.4 mg/dl (8.5-10.1); Creatinine Clr Calc Pharmacy 41.7 ml/min; Est GFR (African American) 49.1 ml/min; Est GFR (Non-African American) 42.4 ml/min; Magnesium 1.5 mg/dl (1.7-2.4); Potassium 4.9 mmol/L (3.5-5.1)
[2022-03-09] MEDS ORDERED: SODIUM CHLORIDE 1 GM TABLET PO SCH (09:00)
--- NOTE | 2022-03-09 09:39 | Nephrology Progress Note ---
Date of Service March 09, 2022 Assessment & Plan (1) EMY (acute kidney injury): Plan: Attributed to prerenal causes from dehydration with superimposed ATN. Baseline creatinine 1.2 mg/dL. Renal recovery noted. Continue to hold lisinopril, spironolactone, and furosemide pending outpatient follow up. Medications currently appropriately dosed for kidney dysfunction. Volume status acceptable. (2) Hyponatremia: Plan: Volume status improved. Continue PO free water restriction. Stop oral NaCl. Repeat metabolic profile early next week. (3) Hyperkalemia: Plan: Attributed to history of GIOVANY + spironolactone + EMY. Improved with medical management. (4) Proteinuria: Plan: Outpatient follow up with Dr. Momin within 2 weeks post discharge. (5) Lower leg edema: Plan: Diuretics held but furosemide may be restarted PRN post discharge. Admission and Anticipated Discharge Date Admission Date: February 28, 2022 Subjective No acute events overnight. Rosalind feels well this AM. She hopes to be discharged later today. Constipation resolved. Review of Systems Review of Systems: All systems reviewed & are unremarkable except as noted in HPI & below Physical Exam Constitutional: well developed and + morbidly obese; no acute distress Eyes: no scleral abnormality and no corneal abnormality ENMT: Mouth: no oral mucosal abnormality and oral mucous membranes not dry Neck: normal visual inspection and trachea midline Respiratory: normal respiratory effort Auscultation: lungs clear to auscultation bilaterally Cardiovascular: Rate/Rhythm: regular rate Heart Sounds: normal S1, normal S2 and + murmur Extremities: no edema Gastrointestinal (Abdomen): Inspection/Auscultation: normal bowel sounds Percussion/Palpation: + abdomen tender (mild generalized) Musculoskeletal: Extremities: no cyanosis and no clubbing Skin: normal turgor; no lesions Neurologic: Motor/Sensory: no tremor and no asterixis Psychiatric: Orientation: alert and oriented x 3 Results & Data ([facility]) Vital Signs (Past 12 Hours) Vital Signs Temp Pulse Pulse Resp BP Pulse Ox O2 Del Method 03/09/22 08:34 36.6 C 73 18 155/65 H 96 Room Air 03/09/22 02:16 36.2 C L 66 18 146/64 H 99 Room Air 03/09/22 00:00 173/76 H 03/08/22 22:16 67 03/08/22 22:35 36.3 C L 70 18 182/77 H 99 Room Air Laboratory Results Laboratory Results - last 24 hr 03/03/22 03/08/22 03/08/22 17:28 11:25 16:22 WBC RBC Hgb Hct MCV MCH MCHC RDW Std Deviation RDW Coeff of Leah Plt Count MPV Sodium Potassium Chloride Carbon Dioxide Anion Gap BUN Creatinine Est Cr Clr Drug Dosing Est GFR ( Amer) Est GFR (Non-Af Amer) BUN/Creatinine Ratio Glucose POC Glucose 203 H 174 H Calcium Magnesium U Random Total Protein 43 H Ur Creatinine mg/dL 113 Protein/Creatinin Ratio 0.381 H Urine Albumin (%) 63 U Towae-9-Sbncjsxh (%) 1 U Lntjw-9-Ngbmaesn (%) 7 U Beta Globulin (%) 9 U Gamma Globulin (%) 20 U Abnormal Prot Band 1 DNR U Abnormal Prot Band 2 DNR U Abnormal Prot Band 3 DNR Urine PEP Interpret SEE NOTE 03/08/22 03/09/22 03/09/22 20:13 07:05 07:05 WBC 7.23 RBC 3.49 L Hgb 10.3 L Hct 30.3 L MCV 86.8 MCH 29.5 MCHC 34.0 RDW Std Deviation 49.3 H RDW Coeff of Leah 15.7 H Plt Count 165 MPV 9.5 Sodium 137 Potassium 4.9 Chloride 109 H Carbon Dioxide 23 Anion Gap 5 BUN 58 H Creatinine 1.22 H Est Cr Clr Drug Dosing 41.7 Est GFR ( Amer) 49.1 Est GFR (Non-Af Amer) 42.4 BUN/Creatinine Ratio 47.5 H Glucose 105 H POC Glucose 148 H Calcium 8.4 L Magnesium 1.5 L U Random Total Protein Ur Creatinine mg/dL Protein/Creatinin Ratio Urine Albumin (%) U Gipfm-6-Faqzatpv (%) U Sycvp-7-Kchyvplu (%) U Beta Globulin (%) U Gamma Globulin (%) U Abnormal Prot Band 1 U Abnormal Prot Band 2 U Abnormal Prot Band 3 Urine PEP Interpret 03/09/22 07:32 WBC RBC Hgb Hct MCV MCH MCHC RDW Std Deviation RDW Coeff of Leah Plt Count MPV Sodium Potassium Chloride Carbon Dioxide Anion Gap BUN Creatinine Est Cr Clr Drug Dosing Est GFR ( Amer) Est GFR (Non-Af Amer) BUN/Creatinine Ratio Glucose POC Glucose 106 H Calcium Magnesium U Random Total Protein Ur Creatinine mg/dL Protein/Creatinin Ratio Urine Albumin (%) U Echwj-2-Vaxmsvio (%) U Cmxdu-2-Aeyjyrgj (%) U Beta Globulin (%) U Gamma Globulin (%) U Abnormal Prot Band 1 U Abnormal Prot Band 2 U Abnormal Prot Band 3 Urine PEP Interpret PG Care Time/CCT Total # of Minutes Spent Total Time Spent with Patient: Total time spent is greater than 50% in coordination of care (as documented) at patient's floor/unit and/or counseling patient: Coding Level of Care Code 64891 Subseq Hosp Care Lvl 3 Diagnoses EMY (acute kidney injury) N17.9 Hyponatremia E87.1 Hyperkalemia E87.5 Proteinuria R80.9 Lower leg edema R60.0
--- NOTE | 2022-03-09 19:25 | Discharge Summary ---
Date of Service March 09, 2022 Admission HPI Per Admitting Provider 76yo F w/ hx of GREGORY cirrhosis, aortic stenosis who presents with a fall at home. The patient has had diarrhea for about 1 week and reports that she has also just had a loss of appetite and poor PO intake. She attributes it to getting several cats and taking care of kittens and getting something from one of them. No one else is sick in the household. Prior to 1 week ago, she was doing well and had not been falling at home or having any acute medical issues. Today, she went to the restroom. Per her son, it is a very small room, and she has to go in by herself just because of the walker taking up too much space. She used the restroom and got up, but felt very weak and fell into the bathtub on her back. Her son was not able to catch her. However, she denies striking her head or losing consciousness. She denies any lightheadedness, palpitations, or other symptoms prior to the fall. Principal Diagnosis Fall Hyponatremia Discharge Exam Constitutional WD/WN, vitals as above Eyes EOM intact bilaterally; no conjunctival abnormality ENMT external ear and nose normal, oropharynx normal Neck trachea midline, no thyromegaly normal visual inspection Respiratory normal respiratory effort, lungs clear to auscultation no respiratory distress Cardiovascular Rate/Rhythm: regular rate and regular rhythm Extremities: + edema (Left leg larger than right, but patient reports this is chronic.) Gastrointestinal (Abdomen) Inspection/Auscultation: abdomen normal to inspection; abdomen not distended Musculoskeletal no cyanosis or clubbing, extremities motor strength 5/5 Skin no rashes, warm and dry Neurologic moves all extremities and awake Psychiatric Orientation: alert, oriented to person and cooperative Discharge Data Allergies Allergy/AdvReac Type Severity Reaction Status Date / Time No Known Allergies Allergy Verified 02/28/22 22:24 Consultations 02/28/22 21:45 ED Decision to Admit Stat 03/03/22 14:27 Consult Nephrology Routine Ordered Studies 02/28/22 20:22 CT abd pelvis wo con Stat CT head/brain wo con Stat CT lumbar spine wo con Stat CT thoracic spine wo con Stat 03/02/22 18:56 US venous doppler LE Routine Hospital Course (1) Hyponatremia: Na was 129 on admission. 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 - Stable on discharge. (2) Fall: Per patient and son, mechanical in nature with patient just feeling "weak." Possibly some orthostasis from micturition (though patient denies dizziness or lightheadedness prior to fall), likely exacerbated by dehydration from diarrhea and poor PO intake. Prior to this fall, patient and son deny any recent falls at home. - [facility]. (3) Diarrhea: Presumed infectious. Already resolving per patient. Possibly worsened by her high-dose oral magnesium she takes for chronic hypomagnesemia. - Hold oral magnesium - Now with constipation at times. By discharge, BMs were largely sorted out with solid, but soft. 1-2/day. (4) EMY (acute kidney injury): Baseline Cr ~1.0. Cr was 1.5 on admission. Likely pre-renal from diarrhea, poor PO intake, and exacerbated by medications. - Hold furosemide, lisinopril, and spironolactone - Cr now down to 1.3. (5) Elevated troponin: Troponin was 51 on admission without any chest pain. EKG not in the computer, but reviewed: Shows bifascicular block, stable from prior EKGs. - Troponins stable. Demand ischemia. (6) Hypertension: BP is 160/100 in the ER. - Holding home lisinopril, Lasix, and spironolactone as above for EMY. - High threshold to treat HTN in the hospital unless evidence of end organ damage. - Monitor (7) Liver cirrhosis: Presumed due to GREGORY. Hx of varices, but no hx of variceal bleed from my review of chart. EGD in 11/2020 without varices. - Resume Lasix/spironolactone once EMY has resolved. - Monitor platelets (chronically low, but presently a bit lower than her basel ine of ~95) (8) Diabetes mellitus with peripheral vascular disease: Prior A1c was 7.1% in 12/2021. - Hold home metformin, glimepiride - Sliding scale insulin (9) Aortic stenosis: Mild on echo in 10/2021. No change from prior. - Monitor (10) Hypomagnesemia: Chronic, with it being attributed previously to medications. Seen by Dr. Momin in 11/2021. - Hold spironolactone as above - Monitor Mg; replete via IV while in the hospital. 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 - Heparin 5,000 units SQ Q12h FULL CODE per patient with son present in room and in agreement. Total Time Total Time Spent Total Time Spent (In Minutes): 35 Discharge Plan Discharge Items Patient Disposition: Transfer Snf Fac Reason For Visit: FALL, DIARRHEA Discharge Diagnosis: Fall Activity: Resume your previous activity Non-emergency contact: Primary Care Provider Call non-emergency contact if: your symptoms worsen Follow-up/Referrals: Franko Monk, [Primary Care Provider] - Diet: Carb Consistent or DM2, Heart Healthy and Other - See Diet Comment Diet Comment: Low potassium Addtl Attending Provider Instructions: Ms. Dudley was admitted after a fall with low sodium, high potassium, and a kidney injury. Luckily with fluids, adjusting some medications, and some time, these issues have improved. Please follow up with Dr. Momin or one of the kidney doctors in 1 week to be sure you are doing well. We held your lisinopril and spironolactone as these can both cause low sodium and high potassium. If your blood pressure runs high, Dr. Momin or your PCP can add a blood pressure medication that would not raise your potassium. I hope you do well at rehab and are home soon! It is been a pleasure to take care of you. Sincerely, Burt Molina Pending Studies at Discharge: No Stand-Alone Forms: My [facility] Skilled Items Patient informed of condition?: Yes DNR: No Discharge Level of Care: Skilled Communicable Disease: No Discharge Prognosis: Improving Lines: None Urinary Catheter: No Medications and DC Order Prescriptions: New polyethylene glycol 3350 [Miralax] 17 gram Powder In Packet 17 g PO DAILY Qty: 0 0RF sodium chloride 1 gram Tablet 2 g PO DAILY Qty: 0 0RF lidocaine 5 % Adhesive Patch,Medicated 1 patch transdermal QAM Qty: 0 0RF Continued atorvastatin 10 mg tablet 10 mg PO HS Qty: 90 3RF glimepiride 1 mg tablet 1 mg PO BID Qty: 180 3RF levothyroxine 25 mcg tablet 25 mcg PO DAILY Qty: 90 3RF coenzyme Q10 200 mg capsule 200 mg PO DAILY magnesium chloride 64 mg tablet,delayed release (DR/EC) 128 mg PO QID furosemide 20 mg tablet 20 mg PO DAILY Qty: 30 11RF docusate sodium 100 mg Capsule 100 mg PO BID PRN (Reason: Constipation) cholecalciferol (vitamin D3) [Vitamin D3] 2,000 unit Capsule 2,000 unit PO QAM multivitamin Tablet 1 tab PO QAM vitamin E 400 unit capsule 400 unit PO QAM metformin 500 mg tablet 500 mg PO QAM Discontinued lisinopril 10 mg tablet 10 mg PO HS Qty: 90 3RF spironolactone 25 mg tablet 25 mg PO DAILY Qty: 30 3RF Discharge Orders: Discharge Order (Routine); Ordered 03/09/22 Ordered By: Burt Hodge/Other Patient Handouts: Low-Fiber Diet, Treating Diarrhea, Hyperkalemia Dc, Hyponatremia Dc Admission Data Admit Date/Time: 02/28/22 21:49 Attending Provider: Burt Molina Admit Provider: Burt Molina Primary Care Provider: Franko Monk Other Providers: uBrt Molina ; Precious Momin ; Lois Barth at [facility] Other Interventions: Discharge Summary Assessment (RN) Last Done: 03/09/22 11:12 Coding Level of Care Code D/C DAY MANAGEMENT >30 MINS Diagnoses Hyponatremia E87.1 Fall W19.XXXA Diarrhea R19.7 EMY (acute kidney injury) N17.9 Elevated troponin R77.8 Hypertension I10 Liver cirrhosis K74.60 Diabetes mellitus with peripheral vascular disease E11.51 Aortic stenosis I35.0 Hypomagnesemia E83.42 DVT prophylaxis Z29.9
== END 2022-03-09 12:20 | DRG 640 ==
LOC: ED 19:53 → SUATTDRO 21:49 → 2N 21:49

== ENCOUNTER 2022-04-05 17:15 | Observation (INO) ==
--- NOTE | 2022-04-05 17:39 | ED Triage Note ---
Date of Service April 05, 2022 History of Present Illness This patient was briefly evaluated while in triage. An abbreviated physical exam was performed. This patient is a 76-year-old Female with past medical history of Hyperkalemia, hyponatremia, elevated troponin, HTN, diarrhea who presents to the ED for evaluation of "some sort of infection." Pt. referred by PCP for UTI and states "something else working on it probably." Pt. was recently here, then at [facility] for rehab, discharged 3 days ago. Pt. reports bloody discharge, right flank pain, now moved to left flank pain. Physical Exam VITALS: Vitals are noted on the nurse's note and reviewed by myself. GENERAL: This is a 76 year old white female, in no acute distress, nondiaphoretic, well-developed well-nourished. SKIN: No obvious rashes, edema, erythema HEAD: Normocephalic atraumatic. EYES: Conjunctivae without injection, sclerae without icterus. NECK: No JVD. LUNGS: No retractions or accessory muscle use. MUSCULOSKELETAL: Pt. presents in wheelchair. Full ROM of extremities. NEURO: Patient was alert and oriented to person place and time. No focal neurological deficits. Initial orders for labs and / or imaging were placed and patient was placed in the waiting area until a bed is available. Please see further documentation for the full ED course. MDM / Impression Impression Impression: Acute hyperkalemia, Hypomagnesemia
[2022-04-05 18:28] LABS: Basophils # (auto) 0.03 K/uL (0-0.2); Basophils % (auto) 0.4 %; Eosinophils # (auto) 0.06 K/uL (0-0.50); Eosinophils % (auto) 0.9 %; Hematocrit (blood only) 32.1 % (34.1-44.9); Hemoglobin 10.3 g/dl (12.0-16.0); Immature Granulocytes # (auto) 0.02 K/uL (0.00-0.02); Immature Granulocytes % (auto) 0.3 %; Lymphocytes # (auto) 0.91 K/uL (1.2-3.4); Lymphocytes % (auto) 13.2 %; Mean Corpuscular Hemoglobin 29.9 pg (25.0-34.0); Mean Corpuscular Hgb Conc 32.1 g/dL (32.0-36.0); Mean Platelet Volume 10.3 fL (9.4-12.3); Monocytes # (auto) 0.81 K/uL (0.24-0.82); Monocytes % (auto) 11.7 %; Neutrophils # (auto) 5.09 K/uL (1.4-6.5); Neutrophils % (auto) 73.5 %; Platelet Count 170 K/uL (130-400); RDW Coefficient of Variation 17.7 % (11.5-14.5); Red Blood Count 3.45 M/uL (3.93-5.22); White Blood Count 6.92 K/ul (4.8-10.8)
[2022-04-05 18:41] LABS: INR 1.2 (0.9-1.1); Partial Thromboplastin Ratio 1.1; Partial Thromboplastin Time 30.5 Seconds (21.0-31.0); Prothrombin Time 12.4 Seconds (9.0-12.0)
[2022-04-05 18:48] LABS: Alanine Aminotransferase 16 U/L (7-52); Albumin Globulin Ratio 0.5 (0.9-2); Albumin Level 2.3 gm/dl (3.4-5.0); Alkaline Phosphatase 130 U/L (34-104); Anion Gap 4 (3-11); Aspartate Aminotransferase 26 U/L (13-39); BUN Creatinine Ratio 35.2 (10-20); Bilirubin,Total 0.6 mg/dl (0.2-1.0); Blood Urea Nitrogen 37 mg/dl (6-23); Calcium 8.4 mg/dl (8.5-10.1); Carbon Dioxide 21 mmol/L (21-32); Chloride 106 mmol/L (98-107); Est GFR (African American) 58.9 ml/min; Est GFR (Non-African American) 50.8 ml/min; Globulin 5.1 gm/dl (2.5-4.0); Glucose 209 mg/dl (70-99(Fasting)); Lipase 62 U/L (11-82); Magnesium 1.4 mg/dl (1.7-2.4); Potassium 5.7 mmol/L (3.5-5.1); Sodium 131 mmol/L (136-145); Total Protein 7.4 gm/dl (6.0-8.3)
[2022-04-05] MEDS ORDERED: MAGNESIUM SULFATE / D5W 1 GM/100 ML BAG IV STA (19:12)
[2022-04-05] MEDS ORDERED: CALCIUM GLUCONATE 10% 1,000 MG in DEXTROSE 5% 50 ML IV STA (19:13)
[2022-04-05] MEDS ORDERED: STAT IV STA (19:13)
[2022-04-05] MEDS ORDERED: INSULIN HUMAN REGULAR PER UNIT 10 UNITS in SYRINGE 9.9 ML IV STA (19:13)
[2022-04-05] MEDS ORDERED: DEXTROSE 50% 50 ML SYRINGE IV STA (19:13)
--- NOTE | 2022-04-05 19:32 | Emergency Department Note ---
History of Present Illness General Chief Complaint: Urinary Symptoms Stated Complaint: POSSIBLE UTI, REFERRED BY DR Guzman Seen by Provider: 04/05/22 19:12 History of Present Illness Provider Complaint: flank pain Onset (ago): 3 day(s) Pain Consistency: intermittent Location: L flank and R flank Migration to: RLQ Severity: moderate Current Pain Intensity: 8 Quality: + stabbing and + sharp Relieved By: + nothing Exacerbated By: + nothing Context: no foreign travel, no possible food poisoning, no sick contacts, no recent antibiotic use, no recent surgery/procedure or no recent injury Associated Symptoms: + hematuria; no nausea, no vomiting, no diarrhea, no fever, no chills, no constipation, no dysuria, no hematemesis, no hematochezia, no melena, no anorexia, no syncope, no headache, no neck pain, no chest pain, no weakness and no numbness Home Medications Medication Instructions Recorded Confirmed Type cholecalciferol (vitamin D3) 50 2,000 unit PO QAM 07/01/18 04/05/22 History mcg (2,000 unit) capsule (Vitamin D3) docusate sodium 100 mg capsule 100 mg PO BID PRN Constipation 07/01/18 04/05/22 History multivitamin 1 tab PO QAM 10/14/19 04/05/22 History vitamin E 268 mg (400 unit) capsule 400 unit PO QAM 08/14/20 04/05/22 History atorvastatin 10 mg tablet 10 mg PO HS #90 tabs 08/12/21 04/05/22 Rx glimepiride 1 mg tablet 1 mg PO BID #180 tabs 08/12/21 04/05/22 Rx metformin 500 mg tablet 500 mg PO . ON HOLD 10/02/21 04/05/22 History coenzyme Q10 200 mg capsule 200 mg PO DAILY 11/01/21 04/05/22 History furosemide 20 mg tablet 20 mg PO DAILY edema #30 tabs 12/07/21 04/05/22 Rx levothyroxine 25 mcg tablet 25 mcg PO DAILY #90 tabs 01/11/22 04/05/22 Rx magnesium chloride 64 mg 128 mg PO QID 01/11/22 04/05/22 History (magnesium chloride) tablet,delayed release acetaminophen 325 mg tablet 650 mg PO Q4H PRN fever or pain 03/23/22 04/05/22 Rx #30 tabs sodium chloride 1 gram tablet 2 g PO DAILY #60 tabs 03/29/22 04/05/22 Rx famotidine 20 mg tablet 20 mg PO BID PRN Heartburn 04/05/22 04/05/22 History lidocaine 5 % topical patch 1 patch transdermal QAM PRN Pain 04/05/22 04/05/22 History polyethylene glycol 3350 17 gram 17 g PO DAILY PRN Constipation 04/05/22 04/05/22 History oral powder packet (Miralax) spironolactone 25 mg tablet 25 mg PO DAILY 04/05/22 04/05/22 History Allergies Allergy/AdvReac Type Severity Reaction Status Date / Time No Known Allergies Allergy Verified 04/05/22 15:56 Past Med/Surg History Medical History Acute DVT (deep venous thrombosis) 2019> no known cause > Filter to right groin 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 Chronic back pain Chronic deep vein thrombosis (DVT) 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 Diverticular hemorrhage resolved Esophageal varices determined by endoscopy Fever GERD (gastroesophageal reflux disease) GI bleed none at present Hyperlipemia Lower leg edema Migraine Monoclonal gammopathy Obesity Osteoarthritis Proteinuria Pulmonary embolism 2019 > no known cause > Filter to right groin Thrombocytopenia Vertigo Surgical History History of bilateral breast reduction surgery History of bilateral cataract extraction History of carpal tunnel release of both wrists History of section x3 History of colonoscopy History of dilatation and curettage History of esophagogastroduodenoscopy (EGD) History of laparoscopic cholecystectomy History of lumbar spinal fusion hardware in place History of tonsillectomy History of tooth extraction all teeth History of total left knee replacement (TKR) History of total right knee replacement (TKR) Family History Mother Family history of diabetes mellitus Brother Family history of diabetes mellitus 3 brothers Colorectal cancer Myocardial infarction x 2 Father Myocardial infarction Denies family history of Ovarian cancer Prostate cancer Breast cancer Social History Smoking Status: Former smoker Tobacco Type: Cigarettes Age Started Using Tobacco: 15; Age Quit Using Tobacco: 21; Cigarettes Per Day: 1 pack Q 4 days; Second Hand Exposure: No; Hx Alcohol Use: No Hx Substance Use: No Preferred Language: Pakistani Communication Ability: Effective Visual Impairment: Limited Hearing Ability: Normal 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 Beliefs That Will Affect Care: None marital status: / Current Living Situation: Family Current Living Situation Comment: Lives with son current occupational status: retired How many Children do You have: 3 Feels Safe at Home: Yes Childhood Exposure to Second-Hand Smoke: Yes caffeine: Yes (tea) during the past year weight has: remained stable Dental Care, Regularly: No Physical Activity Frequency: Does not Exercise Seatbelt Use: always Sunscreen Use: No Do you think of yourself as: straight/heterosexual Gender Identity: Female Assistive Devices: Glasses and Walker Review of Systems A total of 10 systems reviewed and were otherwise negative Physical Exam Vital Signs: Vital Signs - 24 hr 04/05/22 17:37 04/05/22 19:29 04/05/22 19:34 Temperature 36.6 C Temperature Source Temporal Artery Sc an Pulse Rate 85 Pulse Rate [Apical ] 81 Respiratory Rate 20 19 Respiratory Effort / Characteristics Non-Labored Sponta neous Respiratory Depth Normal Respiratory Patter n Regular Blood Pressure 153/76 H Blood Pressure [Ri ght Arm] 182/74 H Blood Pressure Marcie n 101 Blood Pressure Marcie n [Right Arm] 110 Blood Pressure Pos ition Sitting Pulse Oximetry 100 98 98 Oxygen Delivery Me thod Room Air Room Air Sepsis Recent Feve r Within 48 Hours No Sepsis New/Unexpla ined Change in Men jhoana Status No Sepsis Action Take n by Nursing No Action Required 04/05/22 20:15 04/05/22 21:00 04/05/22 22:26 Temperature Temperature Source Pulse Rate Pulse Rate [Apical ] 90 79 80 Respiratory Rate 24 19 Respiratory Effort / Characteristics Non-Labored Respiratory Depth Respiratory Patter n Blood Pressure Blood Pressure [Ri ght Arm] 159/80 H 156/71 H 155/72 H Blood Pressure Marcie n Blood Pressure Marcie n [Right Arm] 106 99 99 Blood Pressure Pos ition Pulse Oximetry 98 97 97 Oxygen Delivery Me thod Room Air Room Air Room Air Sepsis Recent Feve r Within 48 Hours Sepsis New/Unexpla ined Change in Men jhoana Status Sepsis Action Take n by Nursing Physical Exam: Physical Exam GENERAL: She is oriented to person, place, and time. She appears well-developed and well-nourished. She does not appear distressed. HENT: Exam performed. -Head: Normocephalic and atraumatic. -Right Ear: External ear normal. No mastoid tenderness. -Left Ear: External ear normal. No mastoid tenderness. -Mouth/Throat: The oropharynx is clear and moist. No trismus in the jaw. No dental abscesses or uvula swelling. No oropharyngeal exudate or tonsillar abscesses. EYES: Conjunctivae and EOM are normal. Pupils are equal, round, and reactive to light. Right eye exhibits no discharge. Left eye exhibits no discharge. No scleral icterus. NECK: Normal range of motion. Neck supple. No JVD present. No spinous process tenderness present. No carotid bruit present. No rigidity. No tracheal deviation and normal range of motion present. No Brudzinski's sign and no Kernig's sign noted. CV: Normal rate, regular rhythm, normal heart sounds and intact distal pulses. There is no peripheral edema. Palpable radial pulses bue. PULM/CHEST: Effort normal and breath sounds normal. No respiratory distress. No stridor. She has no wheezes. She has no rales. -Chest Wall: She exhibits no tenderness. ABD: The abdomen is soft. Bowel sounds are normal. She has no distension. No mass is present. There is no tenderness. There is no rebound, no guarding, no Graff's sign and no tenderness at McBurney's point. Rovsig negative. Right- sided CVA tenderness. MUSC/SKEL: Normal range of motion. There is no peripheral edema, tenderness or deformity. LYMPH: No cervical adenopathy. NEURO: She is alert and oriented to person, place, and time. She has normal strength. No cranial nerve deficit or sensory deficit. Coordination and gait normal. GCS eye subscore is 4. GCS verbal subscore is 5. GCS motor subscore is 6. Cerebellar tests wnl. SKIN: Skin is warm and dry. She is not diaphoretic. PSYCH: She has a normal mood and affect. Behavior is normal. Judgment and thought content normal. Course Course 1911: The patient was evaluated in room A12. A complete history and physical exam was performed Cardiac monitoring: An order was placed for continuous cardiac monitoring. The monitor shows a rate of 80 with sinus rhythm 2039: Vital signs stable. Labs show hemoglobin of 10.3. Potassium 5.7. Magnesium 1.4. Urinalysis negative for infection. CT of the abdomen shows no pyelonephritis. Patient will be admitted to the [facility] team. Magnesium repletion started in the emergency department. Patient treated with calcium insulin and glucose for hyperkalemia. Administered Medications Discontinued Medications Dextrose (Dextrose 50% 50 Ml Syringe) 50 ml IV NOW STA Stop: 04/05/22 19:14 Last Admin: 04/05/22 20:07 Dose: 50 ml Documented By: ML Magnesium Sulfate/Dextrose (Magnesium Sulfate / D5w) 1 gm in 100 mls @ 100 mls/hr IV NOW STA Stop: 04/05/22 20:11 Last Infusion: 04/05/22 21:30 Dose: 0 mls/hr Documented By: Admin: 04/05/22 20:30 Dose: 100 mls/hr Documented By: ML Calcium Gluconate 1,000 mg/ (Dextrose) 60 mls @ 240 mls/hr IV ONCE STA Stop: 04/05/22 19:27 Last Infusion: 04/05/22 20:27 Dose: 0 mls/hr Documented By: Admin: 04/05/22 20:11 Dose: 240 mls/hr Documented By: ML Insulin Human Regular 10 units (/ Syringe) 9.9 mls @ 3 mls/sec IV ONE STA Stop: 04/05/22 19:14 Last Admin: 04/05/22 20:10 Dose: 3 mls/sec Documented By: SHANE Co-signed By: GEOFF Ioversol (Optiray 300 100ml) 89 ml IV ONCE ONE Stop: 04/05/22 19:51 Last Admin: 04/05/22 19:51 Dose: 89 ml Documented By: ELZA Medical Decision Making Laboratory Data Result diagrams: 04/05/22 18:05 04/05/22 18:05 Lab Results 04/05/22 04/05/22 04/05/22 Range/Units 18:05 18:05 18:05 WBC 6.92 (4.8-10.8) K/ul RBC 3.45 L (3.93-5.22) M/uL Hgb 10.3 L (12.0-16.0) g/dl Hct 32.1 L (34.1-44.9) % MCV 93.0 (80.0-100.0) fL MCH 29.9 (25.0-34.0) pg MCHC 32.1 (32.0-36.0) g/dL RDW Std Deviation 60.0 H (36.4-46.3) fL RDW Coeff of Leah 17.7 H (11.5-14.5) % Plt Count 170 (130-400) K/uL MPV 10.3 (9.4-12.3) fL Immature Gran % (Auto) 0.3 % Neut % (Auto) 73.5 % Lymph % (Auto) 13.2 % [place] % (Auto) 11.7 % Eos % (Auto) 0.9 % Baso % (Auto) 0.4 % Neut # (Auto) 5.09 (1.4-6.5) K/uL Lymph # (Auto) 0.91 L (1.2-3.4) K/uL [place] # (Auto) 0.81 (0.24-0.82) K/uL Eos # (Auto) 0.06 (0-0.50) K/uL Baso # (Auto) 0.03 (0-0.2) K/uL Immature Gran # (Auto) 0.02 (0.00-0.02) K/uL PT 12.4 H (9.0-12.0) Seconds INR 1.2 H (0.9-1.1) APTT 30.5 (21.0-31.0) Seconds PTT Ratio 1.1 Sodium 131 L (136-145) mmol/L Potassium 5.7 H (3.5-5.1) mmol/L Chloride 106 (98-107) mmol/L Carbon Dioxide 21 (21-32) mmol/L Anion Gap 4 (3-11) BUN 37 H (6-23) mg/dl Creatinine 1.05 (0.6-1.2) mg/dl Est Cr Clr Drug Dosing Not Reportable Est GFR ( Amer) 58.9 ml/min Est GFR (Non-Af Amer) 50.8 ml/min BUN/Creatinine Ratio 35.2 H (10-20) Glucose 209 H (70-99(Fasting)) mg/dl Lactate (0.4-2.0) mmol/L Calcium 8.4 L (8.5-10.1) mg/dl Magnesium 1.4 L (1.7-2.4) mg/dl Total Bilirubin 0.6 (0.2-1.0) mg/dl AST 26 (13-39) U/L ALT 16 (7-52) U/L Alkaline Phosphatase 130 H (34-104) U/L Total Protein 7.4 (6.0-8.3) gm/dl Albumin 2.3 L (3.4-5.0) gm/dl Globulin 5.1 H (2.5-4.0) gm/dl Albumin/Globulin Ratio 0.5 L (0.9-2) Lipase 62 (11-82) U/L Procalcitonin (0-0.5) ng/ml Urine Color Urine Appearance (Clear) Urine pH (4.5-7.5) Ur Specific [place] (1.000-1.030) Urine Protein (Negative) Urine Glucose (UA) (Negative) Urine Ketones (Negative) Urine Blood (Negative) Urine Nitrite (Negative) Urine Bilirubin (Negative) Urine Urobilinogen (Negative) Ur Leukocyte Esterase (Negative) Urine WBC (Auto) (0-5) /hpf Urine RBC (Auto) (0-4) /hpf U Hyaline Cast (Auto) (0-5) /lpf U Epithel Cells (Auto) (0-5) /lpf Urine Bacteria (Auto) (Negative) SARS-CoV-2, RNA, NAAT (NEGATIVE) 04/05/22 04/05/22 04/05/22 Range/Units 18:05 19:36 20:18 WBC (4.8-10.8) K/ul RBC (3.93-5.22) M/uL Hgb (12.0-16.0) g/dl Hct (34.1-44.9) % MCV (80.0-100.0) fL MCH (25.0-34.0) pg MCHC (32.0-36.0) g/dL RDW Std Deviation (36.4-46.3) fL RDW Coeff of Leah (11.5-14.5) % Plt Count (130-400) K/uL MPV (9.4-12.3) fL Immature Gran % (Auto) % Neut % (Auto) % Lymph % (Auto) % [place] % (Auto) % Eos % (Auto) % Baso % (Auto) % Neut # (Auto) (1.4-6.5) K/uL Lymph # (Auto) (1.2-3.4) K/uL [place] # (Auto) (0.24-0.82) K/uL Eos # (Auto) (0-0.50) K/uL Baso # (Auto) (0-0.2) K/uL Immature Gran # (Auto) (0.00-0.02) K/uL PT (9.0-12.0) Seconds INR (0.9-1.1) APTT (21.0-31.0) Seconds PTT Ratio Sodium (136-145) mmol/L Potassium (3.5-5.1) mmol/L Chloride (98-107) mmol/L Carbon Dioxide (21-32) mmol/L Anion Gap (3-11) BUN (6-23) mg/dl Creatinine (0.6-1.2) mg/dl Est Cr Clr Drug Dosing Est GFR ( Amer) ml/min Est GFR (Non-Af Amer) ml/min BUN/Creatinine Ratio (10-20) Glucose (70-99(Fasting)) mg/dl Lactate 0.9 (0.4-2.0) mmol/L Calcium (8.5-10.1) mg/dl Magnesium (1.7-2.4) mg/dl Total Bilirubin (0.2-1.0) mg/dl AST (13-39) U/L ALT (7-52) U/L Alkaline Phosphatase (34-104) U/L Total Protein (6.0-8.3) gm/dl Albumin (3.4-5.0) gm/dl Globulin (2.5-4.0) gm/dl Albumin/Globulin Ratio (0.9-2) Lipase (11-82) U/L Procalcitonin 0.17 (0-0.5) ng/ml Urine Color Yellow Urine Appearance Clear (Clear) Urine pH 5.0 (4.5-7.5) Ur Specific [place] 1.021 (1.000-1.030) Urine Protein 1+ H (Negative) Urine Glucose (UA) Negative (Negative) Urine Ketones Negative (Negative) Urine Blood 3+ H (Negative) Urine Nitrite Negative (Negative) Urine Bilirubin Negative (Negative) Urine Urobilinogen Negative (Negative) Ur Leukocyte Esterase Trace H (Negative) Urine WBC (Auto) 1-5 (0-5) /hpf Urine RBC (Auto) 10-30 H (0-4) /hpf U Hyaline Cast (Auto) 1-5 (0-5) /lpf U Epithel Cells (Auto) 20-30 H (0-5) /lpf Urine Bacteria (Auto) Negative (Negative) SARS-CoV-2, RNA, NAAT (NEGATIVE) 04/05/22 Range/Units 22:54 WBC (4.8-10.8) K/ul RBC (3.93-5.22) M/uL Hgb (12.0-16.0) g/dl Hct (34.1-44.9) % MCV (80.0-100.0) fL MCH (25.0-34.0) pg MCHC (32.0-36.0) g/dL RDW Std Deviation (36.4-46.3) fL RDW Coeff of Leah (11.5-14.5) % Plt Count (130-400) K/uL MPV (9.4-12.3) fL Immature Gran % (Auto) % Neut % (Auto) % Lymph % (Auto) % [place] % (Auto) % Eos % (Auto) % Baso % (Auto) % Neut # (Auto) (1.4-6.5) K/uL Lymph # (Auto) (1.2-3.4) K/uL [place] # (Auto) (0.24-0.82) K/uL Eos # (Auto) (0-0.50) K/uL Baso # (Auto) (0-0.2) K/uL Immature Gran # (Auto) (0.00-0.02) K/uL PT (9.0-12.0) Seconds INR (0.9-1.1) APTT (21.0-31.0) Seconds PTT Ratio Sodium (136-145) mmol/L Potassium (3.5-5.1) mmol/L Chloride (98-107) mmol/L Carbon Dioxide (21-32) mmol/L Anion Gap (3-11) BUN (6-23) mg/dl Creatinine (0.6-1.2) mg/dl Est Cr Clr Drug Dosing Est GFR ( Amer) ml/min Est GFR (Non-Af Amer) ml/min BUN/Creatinine Ratio (10-20) Glucose (70-99(Fasting)) mg/dl Lactate (0.4-2.0) mmol/L Calcium (8.5-10.1) mg/dl Magnesium (1.7-2.4) mg/dl Total Bilirubin (0.2-1.0) mg/dl AST (13-39) U/L ALT (7-52) U/L Alkaline Phosphatase (34-104) U/L Total Protein (6.0-8.3) gm/dl Albumin (3.4-5.0) gm/dl Globulin (2.5-4.0) gm/dl Albumin/Globulin Ratio (0.9-2) Lipase (11-82) U/L Procalcitonin (0-0.5) ng/ml Urine Color Urine Appearance (Clear) Urine pH (4.5-7.5) Ur Specific [place] (1.000-1.030) Urine Protein (Negative) Urine Glucose (UA) (Negative) Urine Ketones (Negative) Urine Blood (Negative) Urine Nitrite (Negative) Urine Bilirubin (Negative) Urine Urobilinogen (Negative) Ur Leukocyte Esterase (Negative) Urine WBC (Auto) (0-5) /hpf Urine RBC (Auto) (0-4) /hpf U Hyaline Cast (Auto) (0-5) /lpf U Epithel Cells (Auto) (0-5) /lpf Urine Bacteria (Auto) (Negative) SARS-CoV-2, RNA, NAAT NEGATIVE (NEGATIVE) Imaging Data Radiologist's Impression: Abdomen/Pelvis CT 04/05/22 17:39 CT OF THE ABDOMEN AND PELVIS WITH CONTRAST CLINICAL HISTORY: Bilateral flank pain. UTI symptoms. COMPARISON STUDY: CT of the abdomen and pelvis October 14, 2019 and February 28, 2022. TECHNIQUE: Following IV administration of 89 mL of Optiray, axial images of the abdomen and pelvis were obtained from the lung bases to the proximal femurs. Images were reviewed in the axial, sagittal, and coronal planes. IV contrast was administered without complication. Automated exposure control was utilized for the study. A dose lowering technique was utilized adhering to the principles of ALARA. CT DOSE: 1602.29 mGy.cm FINDINGS: Subpleural opacities within the lower lungs favor atelectasis or scarring. No pneumatosis, free air or portal venous gas is present. There is no significant biliary ductal dilatation status post cholecystectomy. The liver is cirrhotic. No hepatic lesions are identified on this venous phase exam. Trace perihepatic ascites is noted. There is mild splenomegaly. Abdominal collaterals are again noted. The adrenal glands and pancreas are unremarkable. There is mild bladder wall thickening with mild adjacent infiltration. There is no hydronephrosis. No renal abscess is present. There are no urinary calculi. The kidneys are lobulated. There is moderate renal cortical thinning. Apparent mild urothelial thickening of the proximal bilateral ureters is similar to contrast- enhanced CT of October 14, 2019. No CT evidence for acute pyelonephritis. IVC filter is in place. There is no evidence for a bowel obstruction. Sigmoid diverticulosis is noted without evidence for acute diverticulitis. Major vasculature is patent. Postoperative findings within the spine are noted. There is no lymphadenopathy. IMPRESSION: 1. No urinary calculi or hydronephrosis. Bladder wall thickening with adjacent stranding which could be correlated urinalysis. 2. Possible mild urothelial thickening of the proximal bilateral ureters. This is likely chronic. No evidence for acute pyelonephritis. No renal abscess. 3. Cirrhosis with manifestations of portal hypertension including varices formation, trace ascites and mild hepatomegaly. 4. No bowel obstruction. 5. Colonic diverticulosis. No evidence for acute diverticulitis. ACT 112: Negative or not required by law. Electronically signed by: Eris Friedman M.D. 04/05/2022 8:25 PM MDM Narrative Vital signs stable. Labs show hemoglobin of 10.3. Potassium 5.7. Magnesium 1.4. Urinalysis negative for infection. CT of the abdomen shows no pyelonephritis. Patient will be admitted to the [facility] team. Magnesium repletion started in the emergency department. Patient treated with calcium insulin and glucose for hyperkalemia. Impression & Plan Acute hyperkalemia, Hypomagnesemia Discharge Plan Visit Data Chief Complaint: Urinary Symptoms Stated Complaint: POSSIBLE UTI, REFERRED BY DR SCOTT Provider: Ja Low Discharge Problem: Acute hyperkalemia, Hypomagnesemia Patient Disposition: Admitted As Inpatient Forms Stand Alone Forms: My [facility] Prescriptions Prescriptions: No Action atorvastatin 10 mg tablet 10 mg PO HS Qty: 90 3RF glimepiride 1 mg tablet 1 mg PO BID Qty: 180 3RF acetaminophen 325 mg tablet 650 mg PO Q4H PRN (Reason: fever or pain) Qty: 30 0RF levothyroxine 25 mcg tablet 25 mcg PO DAILY Qty: 90 3RF coenzyme Q10 200 mg capsule 200 mg PO DAILY magnesium chloride 64 mg tablet,delayed release (DR/EC) 128 mg PO QID furosemide 20 mg tablet 20 mg PO DAILY Qty: 30 11RF sodium chloride 1 gram tablet 2 g PO DAILY Qty: 60 0RF docusate sodium 100 mg Capsule 100 mg PO BID PRN (Reason: Constipation) cholecalciferol (vitamin D3) [Vitamin D3] 2,000 unit Capsule 2,000 unit PO QAM multivitamin Tablet 1 tab PO QAM vitamin E 400 unit capsule 400 unit PO QAM metformin 500 mg tablet 500 mg PO . ON HOLD Rx Instructions: hold until after confirmed with doctor on the 15 mar famotidine 20 mg tablet 20 mg PO BID PRN (Reason: Heartburn) polyethylene glycol 3350 [Miralax] 17 gram powder in packet 17 g PO DAILY PRN (Reason: Constipation) lidocaine 5 % adhesive patch,medicated 1 patch transdermal QAM PRN (Reason: Pain) spironolactone 25 mg tablet 25 mg PO DAILY Referrals Referrals: Franko Monk DO [Primary Care Provider] -
[2022-04-05] MEDS ORDERED: OPTIRAY 300 100mL IV ONE (19:50)
--- NOTE | 2022-04-05 20:28 | CT Scan Report ---
CT OF THE ABDOMEN AND PELVIS WITH CONTRAST CLINICAL HISTORY: Bilateral flank pain. UTI symptoms. COMPARISON STUDY: CT of the abdomen and pelvis October 14, 2019 and February 28, 2022. TECHNIQUE: Following IV administration of 89 mL of Optiray, axial images of the abdomen and pelvis we re obtained from the lung bases to the proximal femurs. Images were reviewed in the axial, sagittal, and coronal planes. IV contrast was administered without complication. Automated exposure control wa s utilized for the study. A dose lowering technique was utilized adhering to the principles of ALARA . CT DOSE: 1602.29 mGy.cm FINDINGS: Subpleural opacities within the lower lungs favor atelectasis or scarring. No pneumatosis, free air or portal venous gas is present. There is no significant biliary ductal dilatation status po st cholecystectomy. The liver is cirrhotic. No hepatic lesions are identified on this venous phase ex am. Trace perihepatic ascites is noted. There is mild splenomegaly. Abdominal collaterals are again n oted. The adrenal glands and pancreas are unremarkable. There is mild bladder wall thickening with mi ld adjacent infiltration. There is no hydronephrosis. No renal abscess is present. There are no urina ry calculi. The kidneys are lobulated. There is moderate renal cortical thinning. Apparent mild uroth elial thickening of the proximal bilateral ureters is similar to contrast-enhanced CT of October 13. No CT evidence for acute pyelonephritis. IVC filter is in place. There is no evidence for a bowel obstruction. Sigmoid diverticulosis is noted without evidence for acute diverticulitis. Major vascul ature is patent. Postoperative findings within the spine are noted. There is no lymphadenopathy. IMPRESSION: 1. No urinary calculi or hydronephrosis. Bladder wall thickening with adjacent stranding which could be correlated urinalysis. 2. Possible mild urothelial thickening of the proximal bilateral ureters. This is likely chronic. No evidence for acute pyelonephritis. No renal abscess. 3. Cirrhosis with manifestations of portal hypertension including varices formation, trace ascites an d mild hepatomegaly. 4. No bowel obstruction. 5. Colonic diverticulosis. No evidence for acute diverticulitis. ACT 112: Negative or not required by law. Electronically signed by: Eris Friedman M.D. 04/05/2022 8:25 PM
[2022-04-05 20:36] LABS: Appearance Urine Clear (Clear); Bacteria Urine Automated Negative (Negative); Bilirubin Urine Negative (Negative); Blood Urine 3+ (Negative); Color Urine Yellow; Epithelial Cell Urine Auto 20-30 /lpf (0-5); Glucose Urine UA Negative (Negative); Ketones Urine Negative (Negative); Leukocyte Esterase Urine Trace (Negative); Nitrite Urine Negative (Negative); Protein Urine 1+ (Negative); Specific Gravity Urine 1.021 (1.000-1.030); Urobilinogen Urine Negative (Negative)
--- NOTE | 2022-04-05 23:23 | History & Physical Report ---
Date of Service April 05, 2022 Assessment & Plan (1) Acute abdominal pain in right lower quadrant: Plan: 76 yo female with PMHx GREGORY cirrhosis, type 2 diabetes mellitus, hypertension, aortic stenosis, chronic DVT with IVC filter in place, hypothyroidism, chronic back pains s/p back surgery, GERD presents with right lower quadrant abdominal pain and hematuria. Abdominal pain -3 days abd pain with hematuria, currently not in much pain. Does have history of chronic back pains, cirrhosis. -UA dirty catch, trace LE, +blood/RBCs, neg bacteria; no cx sent, +blood/RBCs appears chronic -wbc wnl -CT A/P: no ureteral stones, bladder wall thickening, mild urothelial thickening which is likely chronic, cirrhosis w/ portal HTN and mild hepatomegaly, no bowel obstruction, diverticulosis without diverticulitis -zofran, tylenol prn -no indication for abx at this time -consider urology consult, chronic findings may warrant cystoscopy Hyponatremia Hyperkalemia Na 131, K 5.7 on admission. H/o abnormalities in recent hospitalization. - on lasix at home. Lisinopril and spironolactone were supposed to be discontinued but pt states she has still been using the spironolactone. Presume medications aiding to abnormalities. Will lasix, lisinopril, and spironolactone for now. - insulin, calcium gluconate given in ED - NaCl tabs started last visit, cont. - fluid restriction 1.5L - cont. to monitor R LE erythema/tenderness -appears to be chronic, DVT ruled out during last admission. IVC filter in place. -repeat venous ultrasound pending Hypomagnesemia Chronic, with it being attributed previously to medications. - Hold spironolactone as above. Hold home oral magnesium. - Monitor Mg; replete via IV while in the hospital. Liver cirrhosis Presumed due to GREGORY. Hx of varices. EGD in 11/2020 without varices. - hold lasix, spironolactone as above Hypertension BP i~160/100 in the ER. - Holding home lisinopril, Lasix, and spironolactone as above - High threshold to treat HTN in the hospital unless evidence of end organ damage. - Monitor, avoid GIOVANY/ARB if needs BP control Diabetes mellitus type 2 with peripheral vascular disease Prior A1c was 7.1% in 12/2021. - Hold home metformin, glimepiride - Sliding scale insulin per pharm glycemic consult Aortic stenosis Mild on echo in 10/2021. No change from prior. - Monitor Hypothyroidism -cont home Synthroid HLD -cont. home statin DVT prophylaxis Chronic nonocclusive DVT in the left popliteal vein seen during prior admission. 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 - Heparin 5,000 units SQ Q12h DVT ppx: heparin FEN/GI: renal, DM2 Code Status: full Dispo: med tele (2) Hematuria: (3) Hyperkalemia: (4) Hyponatremia: (5) Hypertension: (6) Lower leg edema: (7) EMY (acute kidney injury): (8) Chronic deep vein thrombosis (DVT): (9) Aortic stenosis: (10) Liver cirrhosis: (11) Hypomagnesemia: (12) Presence of IVC filter: History of Present Illness Chief Complaint: RLQ pain, hyperkalemia, hyponatremia, hypomagnesemia Primary Care Provider: Franko Monk, 76 yo female with PMHx GREGORY cirrhosis, type 2 diabetes mellitus, hypertension, aortic stenosis, chronic DVT with IVC filter in place, hypothyroidism, chronic back pains s/p back surgery, GERD presents with right lower quadrant abdominal pain and hematuria. Referred by her primary care provider. In the ED was found to be hyperkalemic, hyponatremic, hypomagnesemic. Abdominal pain started 3 days ago and seem to be improving, however, yesterday she noticed a pink tint when wiping after urination. Denies a bowel movement at that time. Has also had increased bilateral leg pains. However denies fevers, chills, nausea, vomiting, chest pain, shortness of breath, constipation, diarrhea. Last bowel movement was this morning without blood in stool. Of note she was discharged from [facility] 03/09/22 after a fall. During that hospitalization she was found to have similar electrolyte abnormalities of which were attributed to ongoing diarrhea and medic ations. At that time her lisinopril and spironolactone were held on discharge. She was to continue her home Lasix dose. However, per patient she has still been taking her spironolactone. Allergies Allergy/AdvReac Type Severity Reaction Status Date / Time No Known Allergies Allergy Verified 04/05/22 15:56 Home Medications Medication Instructions Recorded Confirmed Type cholecalciferol (vitamin D3) 50 2,000 unit PO QAM 07/01/18 04/05/22 History mcg (2,000 unit) capsule (Vitamin D3) docusate sodium 100 mg capsule 100 mg PO BID PRN Constipation 07/01/18 04/05/22 History multivitamin 1 tab PO QAM 10/14/19 04/05/22 History vitamin E 268 mg (400 unit) capsule 400 unit PO QAM 08/14/20 04/05/22 History atorvastatin 10 mg tablet 10 mg PO HS #90 tabs 08/12/21 04/05/22 Rx glimepiride 1 mg tablet 1 mg PO BID #180 tabs 08/12/21 04/05/22 Rx metformin 500 mg tablet 500 mg PO . ON HOLD 10/02/21 04/05/22 History coenzyme Q10 200 mg capsule 200 mg PO DAILY 11/01/21 04/05/22 History furosemide 20 mg tablet 20 mg PO DAILY edema #30 tabs 12/07/21 04/05/22 Rx levothyroxine 25 mcg tablet 25 mcg PO DAILY #90 tabs 01/11/22 04/05/22 Rx magnesium chloride 64 mg 128 mg PO QID 01/11/22 04/05/22 History (magnesium chloride) tablet,delayed release acetaminophen 325 mg tablet 650 mg PO Q4H PRN fever or pain 03/23/22 04/05/22 Rx #30 tabs sodium chloride 1 gram tablet 2 g PO DAILY #60 tabs 03/29/22 04/05/22 Rx famotidine 20 mg tablet 20 mg PO BID PRN Heartburn 04/05/22 04/05/22 History lidocaine 5 % topical patch 1 patch transdermal QAM PRN Pain 04/05/22 04/05/22 History polyethylene glycol 3350 17 gram 17 g PO DAILY PRN Constipation 04/05/22 04/05/22 History oral powder packet (Miralax) spironolactone 25 mg tablet 25 mg PO DAILY 04/05/22 04/05/22 History Past Med/Surg History Medical History Acute DVT (deep venous thrombosis) 2019> no known cause > Filter to right groin 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 Chronic back pain Chronic deep vein thrombosis (DVT) 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 Diverticular hemorrhage resolved Esophageal varices determined by endoscopy Fever GERD (gastroesophageal reflux disease) GI bleed none at present Hyperlipemia Lower leg edema Migraine Monoclonal gammopathy Obesity Osteoarthritis Proteinuria Pulmonary embolism 2019 > no known cause > Filter to right groin Thrombocytopenia Vertigo Surgical History History of bilateral breast reduction surgery History of bilateral cataract extraction History of carpal tunnel release of both wrists History of section x3 History of colonoscopy History of dilatation and curettage History of esophagogastroduodenoscopy (EGD) History of laparoscopic cholecystectomy History of lumbar spinal fusion hardware in place History of tonsillectomy History of tooth extraction all teeth History of total left knee replacement (TKR) History of total right knee replacement (TKR) Family History Mother Family history of diabetes mellitus Brother Family history of diabetes mellitus 3 brothers Colorectal cancer Myocardial infarction x 2 Father Myocardial infarction Denies family history of Ovarian cancer Prostate cancer Breast cancer Social History Smoking Status: Former smoker Tobacco Type: Cigarettes Age Started Using Tobacco: 15; Age Quit Using Tobacco: 21; Cigarettes Per Day: 1 Pack; Second Hand Exposure: Yes; Hx Alcohol Use: No Hx Substance Use: No Preferred Language: Lithuanian Communication Ability: Effective Visual Impairment: Limited Hearing Ability: Normal Suction Operator Required: No Beliefs That Will Affect Care: None marital status: / Current Living Situation: Family Current Living Situation Comment: Home with son current occupational status: retired How many Children do You have: 3 Feels Safe at Home: Yes Childhood Exposure to Second-Hand Smoke: Yes caffeine: Yes (tea) during the past year weight has: remained stable Dental Care, Regularly: No Physical Activity Frequency: Does not Exercise Seatbelt Use: always Sunscreen Use: No Do you think of yourself as: straight/heterosexual Gender Identity: Female Assistive Devices: Walker Review of Systems Review of Systems: All systems reviewed & are unremarkable except as noted in HPI & below Physical Exam Physical Exam: Constitutional: in no acute distress, pleasant, intact memory, poor historian, morbidly obese. Vitals as above. HEENT: No scleral injection or discharge.Moist mucous membranes.Clear oropharynx without exudate. Neck: Supple without lymphadenopathy or thyromegaly. Trachea midline. Lungs: Clear to auscultation bilaterally with good effort. Cardiac: Regular rate and rhythm.+holosystolic murmur. 1+ peripheral pulses. No JVD. Abdomen: +BS. Soft and nondistended.Diffuse tenderness. +murphys sign. No guarding or rebound tenderness. No hepatosplenomegaly. MSK: No cyanosis or clubbing. Extremities motor strength 5/5. Skin: warm, dry. Mild erythema R LE with tenderness. 2+ pitting LE edema bilaterally. Neurologic: No focal deficits. PERRL. Results & Data Results & Data ([facility]) Vital Signs (Past 12 Hours) Vital Signs Temp Pulse Pulse Resp BP BP Pulse Ox 04/05/22 22:26 80 19 155/72 H 97 04/05/22 21:00 79 156/71 H 97 04/05/22 20:15 90 24 159/80 H 98 04/05/22 19:34 98 04/05/22 19:29 81 19 182/74 H 98 04/05/22 17:37 36.6 C 85 20 153/76 H 100 O2 Del Method 04/05/22 22:26 Room Air 04/05/22 21:00 Room Air 04/05/22 20:15 Room Air 04/05/22 19:34 04/05/22 19:29 Room Air 04/05/22 17:37 Room Air Laboratory Results Laboratory Results WBC 6.92 K/ul (4.8-10.8) 04/05/22 18:05 RBC 3.45 M/uL (3.93-5.22) L 04/05/22 18:05 Hgb 10.3 g/dl (12.0-16.0) L 04/05/22 18:05 Hct 32.1 % (34.1-44.9) L 04/05/22 18:05 MCV 93.0 fL (80.0-100.0) 04/05/22 18:05 MCH 29.9 pg (25.0-34.0) 04/05/22 18:05 MCHC 32.1 g/dL (32.0-36.0) 04/05/22 18:05 RDW Std Deviation 60.0 fL (36.4-46.3) H 04/05/22 18:05 RDW Coeff of Leah 17.7 % (11.5-14.5) H 04/05/22 18:05 Plt Count 170 K/uL (130-400) 04/05/22 18:05 MPV 10.3 fL (9.4-12.3) 04/05/22 18:05 Immature Gran % (Auto) 0.3 % 04/05/22 18:05 Neut % (Auto) 73.5 % 04/05/22 18:05 Lymph % (Auto) 13.2 % 04/05/22 18:05 [place] % (Auto) 11.7 % 04/05/22 18:05 Eos % (Auto) 0.9 % 04/05/22 18:05 Baso % (Auto) 0.4 % 04/05/22 18:05 Neut # (Auto) 5.09 K/uL (1.4-6.5) 04/05/22 18:05 Lymph # (Auto) 0.91 K/uL (1.2-3.4) L 04/05/22 18:05 [place] # (Auto) 0.81 K/uL (0.24-0.82) 04/05/22 18:05 Eos # (Auto) 0.06 K/uL (0-0.50) 04/05/22 18:05 Baso # (Auto) 0.03 K/uL (0-0.2) 04/05/22 18:05 Immature Gran # (Auto) 0.02 K/uL (0.00-0.02) 04/05/22 18:05 PT 12.4 Seconds (9.0-12.0) H 04/05/22 18:05 INR 1.2 (0.9-1.1) H 04/05/22 18:05 APTT 30.5 Seconds (21.0-31.0) 04/05/22 18:05 PTT Ratio 1.1 04/05/22 18:05 Sodium 131 mmol/L (136-145) L 04/05/22 18:05 Potassium 5.7 mmol/L (3.5-5.1) H 04/05/22 18:05 Chloride 106 mmol/L (98-107) 04/05/22 18:05 Carbon Dioxide 21 mmol/L (21-32) 04/05/22 18:05 Anion Gap 4 (3-11) 04/05/22 18:05 BUN 37 mg/dl (6-23) H 04/05/22 18:05 Creatinine 1.05 mg/dl (0.6-1.2) 04/05/22 18:05 Est Cr Clr Drug Dosing Not Reportable 04/05/22 18:05 Est GFR ( Amer) 58.9 ml/min 04/05/22 18:05 Est GFR (Non-Af Amer) 50.8 ml/min 04/05/22 18:05 BUN/Creatinine Ratio 35.2 (10-20) H 04/05/22 18:05 Glucose 209 mg/dl (70-99(Fasting)) H 04/05/22 18:05 Lactate 0.9 mmol/L (0.4-2.0) 04/05/22 19:36 Calcium 8.4 mg/dl (8.5-10.1) L 04/05/22 18:05 Magnesium 1.4 mg/dl (1.7-2.4) L 04/05/22 18:05 Total Bilirubin 0.6 mg/dl (0.2-1.0) 04/05/22 18:05 AST 26 U/L (13-39) 04/05/22 18:05 ALT 16 U/L (7-52) 04/05/22 18:05 Alkaline Phosphatase 130 U/L (34-104) H 04/05/22 18:05 Total Protein 7.4 gm/dl (6.0-8.3) 04/05/22 18:05 Albumin 2.3 gm/dl (3.4-5.0) L 04/05/22 18:05 Globulin 5.1 gm/dl (2.5-4.0) H 04/05/22 18:05 Albumin/Globulin Ratio 0.5 (0.9-2) L 04/05/22 18:05 Lipase 62 U/L (11-82) 04/05/22 18:05 Procalcitonin 0.17 ng/ml (0-0.5) 04/05/22 18:05 Urine Color Yellow 04/05/22 20:18 Urine Appearance Clear (Clear) 04/05/22 20:18 Urine pH 5.0 (4.5-7.5) 04/05/22 20:18 Ur Specific [place] 1.021 (1.000-1.030) 04/05/22 20:18 Urine Protein 1+ (Negative) H 04/05/22 20:18 Urine Glucose (UA) Negative (Negative) 04/05/22 20:18 Urine Ketones Negative (Negative) 04/05/22 20:18 Urine Blood 3+ (Negative) H 04/05/22 20:18 Urine Nitrite Negative (Negative) 04/05/22 20:18 Urine Bilirubin Negative (Negative) 04/05/22 20:18 Urine Urobilinogen Negative (Negative) 04/05/22 20:18 Ur Leukocyte Esterase Trace (Negative) H 04/05/22 20:18 Urine WBC (Auto) 1-5 /hpf (0-5) 04/05/22 20:18 Urine RBC (Auto) 10-30 /hpf (0-4) H 04/05/22 20:18 U Hyaline Cast (Auto) 1-5 /lpf (0-5) 04/05/22 20:18 U Epithel Cells (Auto) 20-30 /lpf (0-5) H 04/05/22 20:18 Urine Bacteria (Auto) Negative (Negative) 04/05/22 20:18 SARS-CoV-2, RNA, NAAT NEGATIVE (NEGATIVE) 04/05/22 22:54 Impressions Abdomen/Pelvis CT 04/05/22 17:39 CT OF THE ABDOMEN AND PELVIS WITH CONTRAST CLINICAL HISTORY: Bilateral flank pain. UTI symptoms. COMPARISON STUDY: CT of the abdomen and pelvis October 14, 2019 and February 28, 2022. TECHNIQUE: Following IV administration of 89 mL of Optiray, axial images of the abdomen and pelvis were obtained from the lung bases to the proximal femurs. Images were reviewed in the axial, sagittal, and coronal planes. IV contrast was administered without complication. Automated exposure control was utilized for the study. A dose lowering technique was utilized adhering to the principles of ALARA. CT DOSE: 1602.29 mGy.cm FINDINGS: Subpleural opacities within the lower lungs favor atelectasis or scarring. No pneumatosis, free air or portal venous gas is present. There is no significant biliary ductal dilatation status post cholecystectomy. The liver is cirrhotic. No hepatic lesions are identified on this venous phase exam. Trace perihepatic ascites is noted. There is mild splenomegaly. Abdominal collaterals are again noted. The adrenal glands and pancreas are unremarkable. There is mild bladder wall thickening with mild adjacent infiltration. There is no hydronephrosis. No renal abscess is present. There are no urinary calculi. The kidneys are lobulated. There is moderate renal cortical thinning. Apparent mild urothelial thickening of the proximal bilateral ureters is similar to contrast- enhanced CT of October 14, 2019. No CT evidence for acute pyelonephritis. IVC filter is in place. There is no evidence for a bowel obstruction. Sigmoid diverticulosis is noted without evidence for acute diverticulitis. Major vasculature is patent. Postoperative findings within the spine are noted. There is no lymphadenopathy. IMPRESSION: 1. No urinary calculi or hydronephrosis. Bladder wall thickening with adjacent stranding which could be correlated urinalysis. 2. Possible mild urothelial thickening of the proximal bilateral ureters. This is likely chronic. No evidence for acute pyelonephritis. No renal abscess. 3. Cirrhosis with manifestations of portal hypertension including varices formation, trace ascites and mild hepatomegaly. 4. No bowel obstruction. 5. Colonic diverticulosis. No evidence for acute diverticulitis. ACT 112: Negative or not required by law. Electronically signed by: Eris Friedman M.D. 04/05/2022 8:25 PM Code Status & VTE Plan VTE Prophylaxis Plan VTE Prophylaxis will be ordered: Yes Supervising Physician Co-Signing Physician Notes Attending addendum: I have physically seen this patient, have supervised the medical residents activities, and agree with the H&P unless as otherwise noted. Assessment and Plan: Hematuria with 3 days of abdominal pain- Bladder wall thickening and chronic bilateral ureteral changes on CT Follow urine culture and sensitivity Consult urology Empiric ceftriaxone Renal/hypomagnesemia/hyponatremia/hyperkalemia- Hold furosemide, lisinopril and spironolactone for now Replacing magnesium IV and follow From the ED received mag sulfate 1 g IV, calcium gluconate 1 g IV, regular insulin 10 IV and D50 Follow laboratories Liver Cirrhosis/portal hypertension/varices/hepatomegaly- Presumptive GREGORY EGD on 12/11 without esophageal varices, however, circulation changes noted on CT suggestive of portal hypertension Follow laboratory serially Spironolactone and furosemide temporarily on hold Consideration to add propranolol in the future VTE history- IVC filter in place Right lower extremity with mild erythema and tenderness likely chronic Order venous Doppler Remaining orders and notations as noted Resident Activity Tracking Resident Involvement: Resident Care Provided Care Provided: Adult [facility] Medicine
[2022-04-06] MEDS ORDERED: PHARMACY GLYCEMIC MGMT CONSULT PRN (00:58)
[2022-04-06] MEDS ORDERED: ONDANSETRON INJ 2 MG/ML 2 ML VIAL IV PRN (00:58)
[2022-04-06] MEDS ORDERED: FAMOTIDINE 20 MG TAB PO PRN (00:58)
[2022-04-06] MEDS ORDERED: MAGNESIUM SULFATE / D5W 1 GM/100 ML BAG IV ONE (00:58)
[2022-04-06] MEDS ORDERED: GLUCOSE 10 TAB/TUBE PO PRN (01:45)
[2022-04-06] MEDS ORDERED: GLUCAGON FOR INJ 1 MG VIAL IM PRN (01:45)
[2022-04-06] MEDS ORDERED: GLUCOSE 40% GEL 15 GM TUBE PO PRN (01:45)
[2022-04-06] MEDS ORDERED: CARBOHYDRATES FOR HYPOGLYCEMIA PO PRN (01:45)
[2022-04-06] MEDS ORDERED: DEXTROSE 50% 50 ML SYRINGE IV PRN (01:45)
[2022-04-06] MEDS: ACETAMINOPHEN 325 MG TAB PO PRN ×3 (02:46→22:17)
[2022-04-06] MEDS: LEVOTHYROXINE SODIUM 25 MCG TABLET PO SCH (05:37)
[2022-04-06] MEDS ORDERED: NYSTATIN POWDER 15GM BTL EXT PRN (06:06)
--- NOTE | 2022-04-06 07:16 | Ultrasound Report ---
RIGHT LOWER EXTREMITY VENOUS DOPPLER HISTORY: Right leg pain. r/o DVT COMPARISON STUDY: None. FINDINGS: The right common femoral and superficial femoral veins are patent. There is occlusive throm bus within one of 2 right popliteal veins. Remaining calf vessels are patent. IMPRESSION: Occlusive thrombus within one of 2 right popliteal veins. ACT 112: Negative or not required by law. Electronically signed by: Derian Kerns M.D. 04/06/2022 7:14 AM
[2022-04-06 07:18] LABS: Basophils # (auto) 0.04 K/uL (0-0.2); Basophils % (auto) 0.7 %; Eosinophils # (auto) 0.12 K/uL (0-0.50); Hematocrit (blood only) 29.1 % (34.1-44.9); Hemoglobin 9.2 g/dl (12.0-16.0); Immature Granulocytes # (auto) 0.02 K/uL (0.00-0.02); Immature Granulocytes % (auto) 0.3 %; Lymphocytes # (auto) 0.84 K/uL (1.2-3.4); Lymphocytes % (auto) 13.9 %; Mean Corpuscular Hemoglobin 29.7 pg (25.0-34.0); Mean Corpuscular Hgb Conc 31.6 g/dL (32.0-36.0); Mean Corpuscular Volume 93.9 fL (80.0-100.0); Mean Platelet Volume 10.3 fL (9.4-12.3); Monocytes # (auto) 0.67 K/uL (0.24-0.82); Monocytes % (auto) 11.1 %; Neutrophils # (auto) 4.35 K/uL (1.4-6.5); Platelet Count 131 K/uL (130-400); RDW Coefficient of Variation 17.7 % (11.5-14.5); RDW Standard Deviation 61.3 fL (36.4-46.3); White Blood Count 6.04 K/ul (4.8-10.8)
[2022-04-06 07:26] LABS: INR 1.2 (0.9-1.1); Prothrombin Time 12.8 Seconds (9.0-12.0)
[2022-04-06 07:44] LABS: Albumin Globulin Ratio 0.5 (0.9-2); BUN Creatinine Ratio 33.7 (10-20); Bilirubin,Total 0.6 mg/dl (0.2-1.0); Calcium 8.1 mg/dl (8.5-10.1); Creatinine Clr Calc Pharmacy 51.4 ml/min; Est GFR (African American) 61.7 ml/min; Est GFR (Non-African American) 53.3 ml/min; Globulin 4.2 gm/dl (2.5-4.0); Magnesium 1.8 mg/dl (1.7-2.4); Phosphorus 2.9 mg/dl (2.5-4.9); Potassium 5.2 mmol/L (3.5-5.1); Total Protein 6.2 gm/dl (6.0-8.3)
[2022-04-06 07:56] LABS: Estimated Average Glucose 143 mg/dl; Hemoglobin A1C 6.6 % (4.5-5.6)
[2022-04-06] MEDS: INSULIN ASPART PER UNIT SC SCH ×4 (08:41→22:12)
[2022-04-06] MEDS: LANTUS PER UNIT CHARGE SQ SCH (08:42)
[2022-04-06] MEDS: HEPARIN SOD 5,000 UNIT/0.5 ML VIAL SQ SCH ×2 (08:43→20:58)
[2022-04-06] MEDS: SODIUM CHLORIDE 1 GM TABLET PO SCH (08:43)
--- NOTE | 2022-04-06 11:42 | Urology Consultation ---
Date of Consultation April 06, 2022 Assessment & Plan (1) Hematuria: 76 yo F with multiple comorbidities admitted for acute hyperkalemia, hypomagnesemia, and suspected UTI. - Urology consulted for hematuria. - Hematuria has cleared and she is voiding without difficulty. - Her flank/abdominal pain has resolved. - She is afebrile, hemodynamically stable, creatinine and WBC within normal limits. - CTAP reviewed - no stones or hydronephrosis, bilateral urothelial thickening of proximal ureters. - UA on arrival noted 10-30 RBCs, but otherwise not overly suspicious for infection, recommend obtain urine culture. - Per chart review, multiple UAs with 10-30 or >30 RBCs per high powered field. - Recommend further evaluation with cystoscopy outpatient to complete a hematuria work-up. - May need f/u with [facility] as well. - Patient agreeable to the plan, all questions answered. - Continue supportive care and management per primary service. - Will arrange outpatient follow-up with our service. - will sign off, contact our service with any additional questions. Supervising Physician Co-Signing Physician Notes Discussed patient with GENEVA. Agree with plan. Recommend outpatient cystoscopy. Can determine at clinic visit if CT urogram is warranted. History of Present Illness Reason for Consultation: hematuria Requesting Physician: Dr. Horvath Attending Physician: Jay Horvath History of Present Illness 76 yo F with past medical history of hypertension, aortic stenosis, PE, DVT, cellulitis, lumbar stenosis, MGUS, ROSALES, diabetes, mitral regurgitation, pituitary macroadenoma, anemia, and liver cirrhosis admitted for acute hyperkalemia, hypomagnesemia, and suspected UTI. Patient presented to [facility] ED on 04/05/22 with flank/right lower quadrant abdominal pain and hematuria and was referred by her PCP. She was afebrile on arrival. Lab work reviewed. Her sodium was 131, potassium was 5.7, magnesium 1.4, and creatinine was within normal limits. Her CBC revealed no leukocytosis and hemoglobin was 10.3. Lactate 0.9 and Procalcitonin 0.17. Urinalysis showed 3+ blood, 1-5 WBC, 10-30 RBC, 20-30 Epithelials, and negative for bacteria and nitrates. No urine culture collected. CTAP with IV contrast noted no urinary calculi or hydronephrosis; mild urothelial thickening of the proximal ureters. ED treatment included: Magnesium, calcium insulin, and glucose. She was admitted to the hospital medicine service. Urology consulted for hematuria. Chart review: Afebrile, labs today - creatinine 1.01, WBC 6.04, Hgb 9.2. Patient seen and examined this afternoon. Her son at bedside. She is awake, alert and resting in bed. Denies flank or abdominal pain. She reports that her pain has resolved. She is voiding without difficulty. No dysuria. Hematuria has cleared. No nausea or vomiting. No fever or chills. She reports that she noted blood on tissue when wiping. She notes she followed with Dr. Farias in past after finding of endometrial thickening on past imaging. No personal or family history of kidney stones. She denies history of urinary tract infections. No family history of malignancy. Allergies Allergy/AdvReac Type Severity Reaction Status Date / Time No Known Allergies Allergy Verified 04/05/22 15:56 Home Medications Medication Instructions Recorded Confirmed Type cholecalciferol (vitamin D3) 50 2,000 unit PO QAM 07/01/18 04/05/22 History mcg (2,000 unit) capsule (Vitamin D3) docusate sodium 100 mg capsule 100 mg PO BID PRN Constipation 07/01/18 04/05/22 History multivitamin 1 tab PO QAM 10/14/19 04/05/22 History vitamin E 268 mg (400 unit) capsule 400 unit PO QAM 08/14/20 04/05/22 History atorvastatin 10 mg tablet 10 mg PO HS #90 tabs 08/12/21 04/05/22 Rx glimepiride 1 mg tablet 1 mg PO BID #180 tabs 08/12/21 04/05/22 Rx metformin 500 mg tablet 500 mg PO . ON HOLD 10/02/21 04/05/22 History coenzyme Q10 200 mg capsule 200 mg PO DAILY 11/01/21 04/05/22 History furosemide 20 mg tablet 20 mg PO DAILY edema #30 tabs 12/07/21 04/05/22 Rx levothyroxine 25 mcg tablet 25 mcg PO DAILY #90 tabs 01/11/22 04/05/22 Rx magnesium chloride 64 mg 128 mg PO QID 01/11/22 04/05/22 History (magnesium chloride) tablet,delayed release acetaminophen 325 mg tablet 650 mg PO Q4H PRN fever or pain 03/23/22 04/05/22 Rx #30 tabs sodium chloride 1 gram tablet 2 g PO DAILY #60 tabs 03/29/22 04/05/22 Rx famotidine 20 mg tablet 20 mg PO BID PRN Heartburn 04/05/22 04/05/22 History lidocaine 5 % topical patch 1 patch transdermal QAM PRN Pain 04/05/22 04/05/22 History polyethylene glycol 3350 17 gram 17 g PO DAILY PRN Constipation 04/05/22 04/05/22 History oral powder packet (Miralax) spironolactone 25 mg tablet 25 mg PO DAILY 04/05/22 04/05/22 History Patient History Medical History Acute DVT (deep venous thrombosis) 2019> no known cause > Filter to right groin 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 [employer] Chronic back pain Chronic deep vein thrombosis (DVT) 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 Diverticular hemorrhage resolved Esophageal varices determined by endoscopy Fever GERD (gastroesophageal reflux disease) GI bleed none at present Hyperlipemia Lower leg edema Migraine Monoclonal gammopathy Obesity Osteoarthritis Proteinuria Pulmonary embolism 2019 > no known cause > Filter to right groin Thrombocytopenia Vertigo Surgical History History of bilateral breast reduction surgery History of bilateral cataract extraction History of carpal tunnel release of both wrists History of section x3 History of colonoscopy History of dilatation and curettage History of esophagogastroduodenoscopy (EGD) History of laparoscopic cholecystectomy History of lumbar spinal fusion hardware in place History of tonsillectomy History of tooth extraction all teeth History of total left knee replacement (TKR) History of total right knee replacement (TKR) Family History Mother Family history of diabetes mellitus Brother Family history of diabetes mellitus 3 brothers Colorectal cancer Myocardial infarction x 2 Father Myocardial infarction Denies family history of Ovarian cancer Prostate cancer Breast cancer Social History Smoking Status: Former smoker Tobacco Type: Cigarettes Age Started Using Tobacco: 15; Age Quit Using Tobacco: 21; Cigarettes Per Day: 1 Pack; Second Hand Exposure: Yes; Hx Alcohol Use: No Hx Substance Use: No Preferred Language: Estonian Communication Ability: Effective Visual Impairment: Limited Hearing Ability: Normal [place] Skinner Required: No Beliefs That Will Affect Care: None marital status: / Current Living Situation: Family Current Living Situation Comment: Home with son current occupational status: retired How many Children do You have: 3 Feels Safe at Home: Yes Childhood Exposure to Second-Hand Smoke: Yes caffeine: Yes (tea) during the past year weight has: remained stable Dental Care, Regularly: No Physical Activity Frequency: Does not Exercise Seatbelt Use: always Sunscreen Use: No Do you think of yourself as: straight/heterosexual Gender Identity: Female Assistive Devices: Walker Review of Systems Review of Systems: All systems reviewed & are unremarkable except as noted in HPI & below Physical Exam Constitutional: + obese; no acute distress and not ill appearing Respiratory: normal respiratory effort; no respiratory distress and no labored breathing Cardiovascular: Extremities: + edema (mild edema bilateral lower extremities) Gastrointestinal (Abdomen): Inspection/Auscultation: abdomen normal to inspection; abdomen not distended Percussion/Palpation: abdomen soft; abdomen nontender and no guarding Musculoskeletal: Head/Neck/Chest: normocephalic and head atraumatic Skin: warm and dry Neurologic: moves all extremities and awake Psychiatric: Orientation: alert and oriented x 3 Genitourinary: mild tenderness to palpation over left flank Results & Data ([facility]) Vital Signs (Past 12 Hours) Vital Signs Temp Pulse Pulse Resp BP BP Pulse Ox 04/06/22 08:00 04/06/22 07:33 36.4 C L 72 20 119/64 97 04/06/22 07:02 68 04/06/22 00:46 87 04/06/22 01:41 36.9 C 92 H 18 177/80 H 97 04/06/22 00:30 112/83 97 04/06/22 00:49 36.9 C 92 H 20 177/80 H 97 O2 Del Method 04/06/22 08:00 Room Air 04/06/22 07:33 Room Air 04/06/22 07:02 04/06/22 00:46 04/06/22 01:41 Room Air 04/06/22 00:30 Room Air 04/06/22 00:49 Room Air Diagnostic Findings CT OF THE ABDOMEN AND PELVIS WITH CONTRAST CLINICAL HISTORY: Bilateral flank pain. UTI symptoms. COMPARISON STUDY: CT of the abdomen and pelvis October 14, 2019 and February 28, 2022. TECHNIQUE: Following IV administration of 89 mL of Optiray, axial images of the abdomen and pelvis were obtained from the lung bases to the proximal femurs. Images were reviewed in the axial, sagittal, and coronal planes. IV contrast was administered without complication. Automated exposure control was utilized for the study. A dose lowering technique was utilized adhering to the principles of ALARA. CT DOSE: 1602.29 mGy.cm FINDINGS: Subpleural opacities within the lower lungs favor atelectasis or scarring. No pneumatosis, free air or portal venous gas is present. There is no significant biliary ductal dilatation status post cholecystectomy. The liver is cirrhotic. No hepatic lesions are identified on this venous phase exam. Trace perihepatic ascites is noted. There is mild splenomegaly. Abdominal collaterals are again noted. The adrenal glands and pancreas are unremarkable. There is mild bladder wall thickening with mild adjacent infiltration. There is no hydronephrosis. No renal abscess is present. There are no urinary calculi. The kidneys are lobulated. There is moderate renal cortical thinning. Apparent mild urothelial thickening of the proximal bilateral ureters is similar to contrast- enhanced CT of October 14, [address] CT evidence for acute pyelonephritis. IVC filter is in place. There is no evidence for a bowel obstruction. Sigmoid diverticulosis is noted without evidence for acute diverticulitis. Major vasculature is patent. Postoperative findings within the spine are noted. There is no lymphadenopathy. IMPRESSION: 1. No urinary calculi or hydronephrosis. Bladder wall thickening with adjacent stranding which could be correlated urinalysis. 2. Possible mild urothelial thickening of the proximal bilateral ureters. This is likely chronic. No evidence for acute pyelonephritis. No renal abscess. 3. Cirrhosis with manifestations of portal hypertension including varices formation, trace ascites and mild hepatomegaly. 4. No bowel obstruction. 5. Colonic diverticulosis. No evidence for acute diverticulitis. Results Complete Blood Count Results: RBC 3.10 M/uL (3.93-5.22) L 04/06/22 WBC 6.04 K/ul (4.8-10.8) 04/06/22 Hgb 9.2 g/dl (12.0-16.0) L 04/06/22 Hct 29.1 % (34.1-44.9) L 04/06/22 Plt Count 131 K/uL (130-400) 04/06/22 Results BMP Results: Sodium 131 mmol/L (136-145) L 04/06/22 Potassium 5.2 mmol/L (3.5-5.1) H 04/06/22 Chloride 104 mmol/L (98-107) 04/06/22 Carbon Dioxide 24 mmol/L (21-32) 04/06/22 Anion Gap 3 (3-11) 04/06/22 BUN 34 mg/dl (6-23) H 04/06/22 Creatinine 1.01 mg/dl (0.6-1.2) 04/06/22 Glucose 191 mg/dl (70-99(Fasting)) H 04/06/22 PG Care Time/CCT Total # of Minutes Spent Total Time Spent with Patient: Total time spent is greater than 50% in coordination of care (as documented) at patient's floor/unit and/or counseling patient: Coding Level of Care Code 41859 Initial Inpt Care Lvl 3 Diagnoses Hematuria R31.9
--- NOTE | 2022-04-06 11:50 | Pharmacy Report ---
Pharmacy Glycemic Short Note 2 - Date of Service April 06, 2022 - Glycemic Short BSG Results (Last 24 hours): 04/05/22 04/06/22 04/06/22 18:05 01:16 06:16 Glucose 209 H 191 H POC Glucose 78 04/06/22 04/06/22 07:51 10:59 Glucose POC Glucose 169 H 165 H OUTPATIENT ANTIDIABETIC REGIMEN: * Amaryl 1 mg BID * metformin (currently on hold) ASSESSMENT: * Ms Dudley is a 76 y/o F admitted with abdominal pain. * Patient's BSG this morning was 169 mg/dL on POC and 191 mg/dL on PRP. * Start Lantus 20 units daily (0.2 units/kg). * Novolog weight based stress of 2. PLAN FOR INPATIENT GLYCEMIC CONTROL: * Hold outpatient oral diabetes medications * Basal insulin * Lantus 20 units SQ daily * Bolus insulin * NovoLog per scale ACHS or Q6hrs while NPO * Goal Range: Low 110 mg/dL - High 140 mg/dL * Correction Factor: 20 mg/dL/unit * Nutritional / Prandial insulin per carb ratio of 1 unit per 7 grams CHO consumed
--- NOTE | 2022-04-06 20:58 | Hospitalist Progress Note ---
Date of Service April 06, 2022 Assessment & Plan (1) Acute abdominal pain in right lower quadrant: Plan: 76 yo female with PMHx GREGORY cirrhosis, type 2 diabetes mellitus, hypertension, aortic stenosis, chronic DVT with IVC filter in place, hypothyroidism, chronic b ack pains s/p back surgery, GERD presents with right lower quadrant abdominal pain and hematuria. Abdominal pain -3 days abd pain with hematuria, currently not in much pain. Does have history of chronic back pains, cirrhosis. -UA dirty catch, trace LE, +blood/RBCs, neg bacteria; no cx sent, +blood/RBCs appears chronic -wbc wnl -CT A/P: no ureteral stones, bladder wall thickening, mild urothelial thickening which is likely chronic, cirrhosis w/ portal HTN and mild hepatomegaly, no bowel obstruction, diverticulosis without diverticulitis -zofran, tylenol prn -no indication for abx at this time - urology consult placed, chronic findings may warrant cystoscopy -On 04/06 abdominal pain resolved. Hyponatremia Hyperkalemia Na 131, K 5.7 on admission. H/o abnormalities in recent hospitalization. - on lasix at home. Lisinopril and spironolactone were supposed to be discontinued but pt states she has still been using the spironolactone. Presume medications aiding to abnormalities. Will lasix, lisinopril, and spironolactone for now. - insulin, calcium gluconate given in ED - NaCl tabs started last visit, cont. - fluid restriction 1.5L - cont. to monitor R LE erythema/tenderness -appears to be chronic, DVT ruled out during last admission. IVC filter in place. -repeat venous ultrasound: shows chronic DVT of popliteal vein. -Patient tolerating heparin, will trial full anticoagulation on 04/07 -Patient with history of GI bleed. -Patient has IVC filter, Hypomagnesemia Chronic, with it being attributed previously to medications. - Hold spironolactone as above. Hold home oral magnesium. - Monitor Mg; replete via IV while in the hospital. Liver cirrhosis Presumed due to GREGORY. Hx of varices. EGD in 11/2020 without varices. - hold lasix, spironolactone as above Hypertension BP i~160/100 in the ER. - Holding home lisinopril, Lasix, and spironolactone as above - High threshold to treat HTN in the hospital unless evidence of end organ damage. - Monitor, avoid GIOVANY/ARB if needs BP control Diabetes mellitus type 2 with peripheral vascular disease Prior A1c was 7.1% in 12/2021. - Hold home metformin, glimepiride - Sliding scale insulin per pharm glycemic consult Aortic stenosis Mild on echo in 10/2021. No change from prior. - Monitor Hypothyroidism -cont home Synthroid HLD -cont. home statin DVT prophylaxis Chronic nonocclusive DVT in the left popliteal vein seen during prior admission. 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 -will start lovenox on 04/07 DVT ppx: heparin FEN/GI: renal, DM2 Code Status: full Dispo: med tele (2) Hematuria: (3) Hyperkalemia: (4) Hyponatremia: (5) Hypertension: (6) Lower leg edema: (7) EMY (acute kidney injury): (8) Chronic deep vein thrombosis (DVT): (9) Aortic stenosis: (10) Liver cirrhosis: (11) Hypomagnesemia: (12) Presence of IVC filter: Admission and Anticipated Discharge Date Admission Date: April 05, 2022 Subjective Patient reports that her abdominal pain has subsided. She reports some swelling in her lower right leg. Review of Systems Review of Systems: All systems reviewed & are unremarkable except as noted in HPI & below Physical Exam Physical Exam: Constitutional: in no acute distress, pleasant, intact memory, morbidly obese. Vitals as above. HEENT: No scleral injection or discharge.Moist mucous membranes.Clear oropharynx without exudate. Neck: Supple without lymphadenopathy or thyromegaly. Trachea midline. Lungs: Clear to auscultation bilaterally with good effort. Cardiac: Regular rate and rhythm.+holosystolic murmur. 1+ peripheral pulses. No JVD. Abdomen: +BS. Soft and nondistended.Diffuse tenderness. +murphys sign. No guarding or rebound tenderness. No hepatosplenomegaly. MSK: No cyanosis or clubbing. Extremities motor strength 5/5. Skin: warm, dry. Mild erythema R LE with tenderness. 2+ pitting LE edema bilaterally. Neurologic: No focal deficits. PERRL. Results & Data Results & Data ([facility]) Vital Signs (Past 12 Hours) Vital Signs Temp Pulse Pulse Resp BP Pulse Ox O2 Del Method 04/06/22 19:18 36.8 C 76 18 128/78 98 Room Air 04/06/22 15:41 36.8 C 82 18 149/77 H 97 Room Air 04/06/22 14:54 76 04/06/22 10:52 36.3 C L 79 20 144/74 H 99 Room Air PG Care Time/CCT Total # of Minutes Spent Total Time Spent with Patient: Total time spent is greater than 50% in coordination of care (as documented) at patient's floor/unit and/or counseling patient: Coding Level of Care Code 31739 Subseq Hosp Care Lvl 3 Diagnoses Acute abdominal pain in right lower quadrant R10.31 Hematuria R31.9 Hyperkalemia E87.5 Hyponatremia E87.1 Hypertension I10 Lower leg edema R60.0 EMY (acute kidney injury) N17.9 Chronic deep vein thrombosis (DVT) I82.509 Aortic stenosis I35.0 Liver cirrhosis K74.60 Hypomagnesemia E83.42 Presence of IVC filter Z95.828 Time Spent (min) 35
[2022-04-06] MEDS ORDERED: ATORVASTATIN 10 MG TAB PO SCH (21:00)
[2022-04-07] MEDS: ACETAMINOPHEN 325 MG TAB PO PRN (01:58)
[2022-04-07] MEDS: LEVOTHYROXINE SODIUM 25 MCG TABLET PO SCH (05:51)
[2022-04-07] MEDS ORDERED: ENOXAPARIN INJ 120 MG/0.8 ML SYR SQ SCH (07:00)
[2022-04-07] MEDS: LANTUS PER UNIT CHARGE SQ SCH (08:49)
[2022-04-07 08:50] LABS: Basophils # (auto) 0.02 K/uL (0-0.2); Basophils % (auto) 0.3 %; Eosinophils # (auto) 0.09 K/uL (0-0.50); Eosinophils % (auto) 1.4 %; Hematocrit (blood only) 31.5 % (34.1-44.9); Immature Granulocytes # (auto) 0.02 K/uL (0.00-0.02); Immature Granulocytes % (auto) 0.3 %; Lymphocytes # (auto) 0.91 K/uL (1.2-3.4); Mean Corpuscular Hemoglobin 29.9 pg (25.0-34.0); Mean Corpuscular Hgb Conc 31.7 g/dL (32.0-36.0); Mean Platelet Volume 10.2 fL (9.4-12.3); Monocytes # (auto) 0.41 K/uL (0.24-0.82); Monocytes % (auto) 6.3 %; Neutrophils # (auto) 5.06 K/uL (1.4-6.5); Neutrophils % (auto) 77.7 %; Platelet Count 164 K/uL (130-400); RDW Coefficient of Variation 17.8 % (11.5-14.5); RDW Standard Deviation 61.6 fL (36.4-46.3); Red Blood Count 3.35 M/uL (3.93-5.22); White Blood Count 6.51 K/ul (4.8-10.8)
[2022-04-07] MEDS: INSULIN ASPART PER UNIT SC SCH ×2 (08:50→11:58)
[2022-04-07] MEDS: MAGNESIUM CHLORIDE W/CALCIUM 64MG DELAYED REL TAB PO SCH ×2 (08:52→12:45)
[2022-04-07] MEDS: SODIUM CHLORIDE 1 GM TABLET PO SCH (08:53)
[2022-04-07] MEDS ORDERED: FUROSEMIDE 20 MG TAB PO SCH (09:00)
[2022-04-07 09:20] LABS: BUN Creatinine Ratio 30.1 (10-20); Calcium 8.1 mg/dl (8.5-10.1); Creatinine Clr Calc Pharmacy 50.9 ml/min; Est GFR (African American) 60.3 ml/min; Magnesium 1.5 mg/dl (1.7-2.4)
[2022-04-07] MEDS ORDERED: MAGNESIUM SULFATE / D5W 1 GM/100 ML BAG IV ONE (10:35)
[2022-04-07] MEDS ORDERED: cefTRIAXone SODIUM 2,000 MG in DEXTROSE 5% 50 ML IV SCH (15:00)
--- NOTE | 2022-04-07 15:27 | Discharge Summary ---
Date of Service April 07, 2022 Admission HPI Per Admitting Provider 76 yo female with PMHx GREGORY cirrhosis, type 2 diabetes mellitus, hypertension, aortic stenosis, chronic DVT with IVC filter in place, hypothyroidism, chronic back pains s/p back surgery, GERD presents with right lower quadrant abdominal pain and hematuria. Referred by her primary care provider. In the ED was found to be hyperkalemic, hyponatremic, hypomagnesemic. Abdominal pain started 3 days ago and seem to be improving, however, yesterday she noticed a pink tint when wiping after urination. Denies a bowel movement at that time. Has also had increased bilateral leg pains. However denies fevers, chills, nausea, vomiting, chest pain, shortness of breath, constipation, diarrhea. Last bowel movement was this morning without blood in stool. Of note she was discharged from [facility] 03/09/22 after a fall. During that hospitalization she was found to have similar electrolyte abnormalities of which were attributed to ongoing diarrhea and medications. At that time her lisinopril and spironolactone were held on discharge. She was to continue her home Lasix dose. However, per patient she has still been taking her spironolactone. Principal Diagnosis 1. RLQ Abdominal pain-resolved 2. UTI 3. Hyponatremia and hyperkalemia-resolved 4. Hypomagnesemia-treated Discharge Exam GENERAL: 76 yo Well-developed, well-nourished WF. NAD. LUNGS: Clear to auscultation bilaterally. CARDIOVASCULAR: Regular rate and rhythm. 3/6 SHAWN ABDOMEN: Soft, non-tender and non-distended. BS normoactive x 4 quad. EXTREMITIES: Trace edema. Mildly ttp. Peripheral pulses +2/4. NEUROLOGIC: A&O x3. PSYCHIATRIC: Cooperative. Appropriate mood and affect. SKIN: Warm, dry, intact. No rashes or lesions. Discharge Data Allergies Allergy/AdvReac Type Severity Reaction Status Date / Time No Known Allergies Allergy Verified 04/12/22 08:43 Consultations 04/05/22 20:38 ED Decision to Admit Stat 04/06/22 10:23 Consult Urology Routine Ordered Studies Abdomen/Pelvis CT 04/05/22 17:39 CT OF THE ABDOMEN AND PELVIS WITH CONTRAST CLINICAL HISTORY: Bilateral flank pain. UTI symptoms. COMPARISON STUDY: CT of the abdomen and pelvis October 14, 2019 and February 28, 2022. TECHNIQUE: Following IV administration of 89 mL of Optiray, axial images of the abdomen and pelvis were obtained from the lung bases to the proximal femurs. Images were reviewed in the axial, sagittal, and coronal planes. IV contrast was administered without complication. Automated exposure control was utilized for the study. A dose lowering technique was utilized adhering to the principles of ALARA. CT DOSE: 1602.29 mGy.cm FINDINGS: Subpleural opacities within the lower lungs favor atelectasis or scar ring. No pneumatosis, free air or portal venous gas is present. There is no significant biliary ductal dilatation status post cholecystectomy. The liver is cirrhotic. No hepatic lesions are identified on this venous phase exam. Trace perihepatic ascites is noted. There is mild splenomegaly. Abdominal collaterals are again noted. The adrenal glands and pancreas are unremarkable. There is mild bladder wall thickening with mild adjacent infiltration. There is no hydronephrosis. No renal abscess is present. There are no urinary calculi. The kidneys are lobulated. There is moderate renal cortical thinning. Apparent mild urothelial thickening of the proximal bilateral ureters is similar to contrast- enhanced CT of October 14, [address] CT evidence for acute pyelonephritis. IVC filter is in place. There is no evidence for a bowel obstruction. Sigmoid diverticulosis is noted without evidence for acute diverticulitis. Major vasculature is patent. Postoperative findings within the spine are noted. There is no lymphadenopathy. IMPRESSION: 1. No urinary calculi or hydronephrosis. Bladder wall thickening with adjacent stranding which could be correlated urinalysis. 2. Possible mild urothelial thickening of the proximal bilateral ureters. This is likely chronic. No evidence for acute pyelonephritis. No renal abscess. 3. Cirrhosis with manifestations of portal hypertension including varices formation, trace ascites and mild hepatomegaly. 4. No bowel obstruction. 5. Colonic diverticulosis. No evidence for acute diverticulitis. ACT 112: Negative or not required by law. Electronically signed by: Eris Friedman M.D. 04/05/2022 8:25 PM Venous Doppler Study 04/05/22 23:55 RIGHT LOWER EXTREMITY VENOUS DOPPLER HISTORY: Right leg pain. r/o DVT COMPARISON STUDY: None. FINDINGS: The right common femoral and superficial femoral veins are patent. There is occlusive thrombus within one of 2 right popliteal veins. Remaining calf vessels are patent. IMPRESSION: Occlusive thrombus within one of 2 right popliteal veins. ACT 112: Negative or not required by law. Electronically signed by: Derian Kerns M.D. 04/06/2022 7:14 AM Hospital Course (1) Acute abdominal pain in right lower quadrant: 76 yo female with PMHx GREGORY cirrhosis, type 2 diabetes mellitus, hypertension, aortic stenosis, chronic DVT with IVC filter in place, hypothyroidism, chronic back pains s/p back surgery, GERD presents with right lower quadrant abdominal pain and hematuria. Abdominal pain - 3 days abd pain with hematuria, currently not in much pain. Does have history of chronic back pains, cirrhosis. - UA dirty catch, trace LE, +blood/RBCs, neg bacteria; no cx sent, +blood/RBCs appears chronic - wbc wnl - CT A/P: no ureteral stones, bladder wall thickening, mild urothelial thickening which is likely chronic, cirrhosis w/ portal HTN and mild hepatomegaly, no bowel obstruction, diverticulosis without diverticulitis - zofran, tylenol prn - no indication for abx at this time - urology consult placed, chronic findings may warrant cystoscopy - Urine cx with growth of GNB, given symptoms, will treat for uncomplicated UTI, dose of Rocephin 2g IV x1 and PO course of Cefdinir to complete as outpatient Hyponatremia & Hyperkalemia Na 131, K 5.7 on admission. H/o abnormalities in recent hospitalization. - on lasix at home. Lisinopril and spironolactone were supposed to be discontinued but pt states she has still been using the spironolactone. Presume medications aiding to abnormalities. Lasix, lisinopril, and spironolactone held. - insulin, calcium gluconate given in ED - NaCl tabs started last visit, cont. - fluid restriction 1.5L - Resolved RLE erythema/tenderness - appears to be chronic, DVT ruled out during last admission. IVC filter in place. - repeat venous ultrasound: shows chronic DVT of popliteal vein. - Patient tolerating heparin, will trial full anticoagulation on 04/07 - Patient with history of GI bleed. - Patient has IVC filter - Suspect that this is venous insufficiency and not developing cellulitis Hypomagnesemia Chronic, with it being attributed previously to medications. - Hold spironolactone as above. - Monitor Mg; replete via IV while in the hospital. - oral mag from home resumed Liver cirrhosis Presumed due to GREGORY. Hx of varices. EGD in 11/2020 without varices. - held lasix, spironolactone as above on admit - Have since resumed her Lasix 20mg daily, can continue this upon d/c - Stop the Aldactone d/t hyponatremia and hyperkalemia Hypertension BP ~160/100 in the ER. - Held home lisinopril, Lasix, and spironolactone as above - High threshold to treat HTN in the hospital unless evidence of end organ damage. - Monitor, avoid GIOVANY/ARB if needs BP control Diabetes mellitus type 2 with peripheral vascular disease Prior A1c was 7.1% in 12/2021. - Hold home metformin, glimepiride - Sliding scale insulin per pharm glycemic consult Aortic stenosis Mild on echo in 10/2021. No change from prior. - Monitor Hypothyroidism -cont home Synthroid HLD -cont. home statin DVT prophylaxis Chronic nonocclusive DVT in the left popliteal vein seen during prior admission. 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 (2) Hematuria: (3) Hyperkalemia: (4) Hyponatremia: (5) Hypertension: (6) Lower leg edema: (7) EMY (acute kidney injury): (8) Chronic deep vein thrombosis (DVT): (9) Aortic stenosis: (10) Liver cirrhosis: (11) Hypomagnesemia: (12) Presence of IVC filter: Plan Patient is medically and hemodynamically stable for discharge home today. Seen by PT/OT and cleared to return home with son and resumption of home health services. F/u with pcp within 1 week of discharge. Above plan of care has been d/w Dr. Hopkins who has also seen and evaluated this patient and agrees with aforementioned. Total Time Total Time Spent Total Time Spent (In Minutes): >30 minutes Discharge Plan Discharge Items Patient Disposition: Home - Home Health Services Reason For Visit: RLQ PAIN Discharge Diagnosis: Lower abdominal pain Low sodium and high potassium Urinary tract infection Activity: Resume your previous activity Non-emergency contact: Primary Care Provider Call non-emergency contact if: you have any medication questions and your symptoms worsen Follow-up/Referrals: Schweichler,Franko M., DO [Primary Care Provider] - 04/12/22 9:00 am Diet: Carb Consistent or DM2 Addtl Attending Provider Instructions: You were hospitalized due to complaints of right lower quadrant discomfort. You did have some findings on the CT of your belly that revealed some thickening of the wall in your bladder. This in addition to your abnormal urine findings with some bacterial growth on your urine culture suggest that you may have a urinary tract infection. You were treated with a dose of antibiotics here in the hospital called Rocephin. You will be transitioned to an oral form of this antibiotic called Cefdinir. Please take this medication as prescribed. Your next dose is due on 04/08/22. You will take it twice a day, once in the morning and once at night. Please take until it is gone and leave no pills left over. Although you were concerned about the appearance of your right leg, it does not appear that you have an infection or cellulitis. This is likely slightly warm due to swelling. This should improve with resuming your Lasix. Your Spironolactone has been STOPPED. Please take all medications as outlined below. Physical and occupational therapy has seen you during your stay and feels that you can return home with your son and resume home health services. It is recommended that you follow up with your primary care provider within 1 week of discharge from the hospital. In the event of any questions, please call the nonemergency number listed on your discharge paperwork or you can also reach out to your pcp. In the event of a medical emergency, call 911. Pending Studies at Discharge: No Stand-Alone Forms: My [facility] GOGETMi / ?.??, Smoking Cessation Medications and DC Order Prescriptions: New cefdinir 300 mg capsule 300 mg PO BID Qty: 6 0RF Continued atorvastatin 10 mg tablet 10 mg PO HS Qty: 90 3RF glimepiride 1 mg tablet 1 mg PO BID Qty: 180 3RF acetaminophen 325 mg tablet 650 mg PO Q4H PRN (Reason: fever or pain) Qty: 30 0RF coenzyme Q10 200 mg capsule 200 mg PO DAILY magnesium chloride 64 mg tablet,delayed release (DR/EC) 128 mg PO QID furosemide 20 mg tablet 20 mg PO DAILY Qty: 30 11RF sodium chloride 1 gram tablet 2 g PO DAILY Qty: 60 0RF docusate sodium 100 mg Capsule 100 mg PO BID PRN (Reason: Constipation) cholecalciferol (vitamin D3) [Vitamin D3] 2,000 unit Capsule 2,000 unit PO QAM multivitamin Tablet 1 tab PO QAM vitamin E 400 unit capsule 400 unit PO QAM metformin 500 mg tablet 500 mg PO . ON HOLD Rx Instructions: hold until after confirmed with doctor on the 15 mar famotidine 20 mg tablet 20 mg PO BID PRN (Reason: Heartburn) polyethylene glycol 3350 [Miralax] 17 gram powder in packet 17 g PO DAILY PRN (Reason: Constipation) lidocaine 5 % adhesive patch,medicated 1 patch transdermal QAM PRN (Reason: Pain) Discontinued spironolactone 25 mg tablet 25 mg PO DAILY No Action levothyroxine 50 mcg tablet 50 mcg PO DAILY Qty: 90 3RF Discharge Orders: Discharge Order (Routine); Ordered 04/07/22 Ordered By: Janine Hodge/Other Patient Handouts: Managing Type 2 Diabetes, Hematuria: Possible Causes, UTIs Understanding Admission Data Admit Date/Time: 04/05/22 23:07 Attending Provider: Joni Hopkins Admit Provider: Luciano Zayas Primary Care Provider: Franko Monk Other Providers: Andrea Bermudez ; Mckenzie,Home Care Other Interventions: Discharge Summary Assessment (RN) Last Done: 04/07/22 16:17 Supervising Physician Co-Signing Physician Notes I personally saw and examined the patient. I verified all almanzar points and agree with Janine Holloway PA-C with the following exceptions and/or additions: 76 year old female hospitalized due to right lower quadrant abdominal pain. Currently resolved with IV ceftriaxone and will be switched to cefdinir on discharge. Coding Level of Care Code D/C DAY MANAGEMENT >30 MINS Diagnoses Acute abdominal pain in right lower quadrant R10.31 Hematuria R31.9 Hyperkalemia E87.5 Hyponatremia E87.1 Hypertension I10 Lower leg edema R60.0 EMY (acute kidney injury) N17.9 Chronic deep vein thrombosis (DVT) I82.509 Aortic stenosis I35.0 Liver cirrhosis K74.60 Hypomagnesemia E83.42 Presence of IVC filter Z95.828
== END 2022-04-07 16:55 | disposition home health service (06) ==
LOC: ED 17:15 → 2N 23:07 → SUATTDRO 23:07 → INTOOBSV 23:25 → SUATTDRO 23:25 → 2N 04-06 00:30

== ENCOUNTER 2022-07-28 02:10 | Inpatient (IN) ==
[2022-07-28 03:52] LABS: Hematocrit (blood only) 30.8 % (34.1-44.9); Hemoglobin 9.8 g/dl (12.0-16.0); Mean Corpuscular Hgb Conc 31.8 g/dL (32.0-36.0); Mean Platelet Volume 10.8 fL (9.4-12.3); Platelet Count 92 K/uL (130-400); RDW Coefficient of Variation 15.9 % (11.5-14.5); RDW Standard Deviation 50.8 fL (36.4-46.3); White Blood Count 3.04 K/ul (4.8-10.8)
--- NOTE | 2022-07-28 04:05 | Emergency Department Note ---
History of Present Illness General Chief complaint: Rectal Bleed Stated complaint: RECTAL BLEED Time Seen by Provider: 07/28/22 03:22 Source: patient Mode of arrival: ambulatory Limitations: no limitations History of Present Illness Provider complaint: Rectal bleeding This is a 76-year-old female presents emergency department due to concern for bright red blood per rectum that began earlier this evening. She states she had some slight pressure and abdominal cramping thinking she needed to move her bowels, and when she went to the bathroom she said there was no stool only bright red blood. She denies noting any clots. She states this happened several times this evening and due to concern as she does take a blood thinner daily she came to the emergency room for additional evaluation. Patient states she has previously had GI bleeding, including varices in her stomach. She has had prior EGD and colonoscopy. She states she was restarted on low-dose Eliquis 2 months ago due to a DVT in her right lower extremity. She does have an IVC filter. She states she has no current abdominal pain, and had no vomiting this evening. She denies fevers or chills. Patient states with the bleeding at home she did feel slightly lightheaded and nauseated. Home Medications Medication Instructions Recorded Confirmed Type cholecalciferol (vitamin D3) 50 2,000 unit PO QAM 07/01/18 07/26/22 History mcg (2,000 unit) capsule (Vitamin D3) docusate sodium 100 mg capsule 100 mg PO BID PRN Constipation 07/01/18 07/26/22 History multivitamin 1 tab PO QAM 10/14/19 07/26/22 History vitamin E 268 mg (400 unit) capsule 400 unit PO QAM 08/14/20 07/26/22 History atorvastatin 10 mg tablet 10 mg PO HS #90 tabs 08/12/21 07/26/22 Rx glimepiride 1 mg tablet 1 mg PO BID #180 tabs 08/12/21 07/26/22 Rx coenzyme Q10 200 mg capsule 200 mg PO DAILY 11/01/21 07/26/22 History acetaminophen 325 mg tablet 650 mg PO Q4H PRN fever or pain 03/23/22 07/26/22 Rx #30 tabs famotidine 20 mg tablet 20 mg PO BID PRN Heartburn 04/05/22 07/26/22 History polyethylene glycol 3350 17 gram 17 g PO DAILY PRN Constipation 04/05/22 07/26/22 History oral powder packet (Miralax) levothyroxine 50 mcg tablet 50 mcg PO DAILY #90 tabs 04/12/22 07/26/22 Rx lisinopril 10 mg tablet 10 mg PO DAILY 04/25/22 07/26/22 History metformin 500 mg tablet 500 mg PO DAILY 04/25/22 07/26/22 History apixaban 2.5 mg tablet (Eliquis) 2.5 mg PO BID #60 tabs 07/11/22 07/26/22 Rx sodium chloride 1 gram tablet 1,000 mg PO DAILY #90 tabs 07/11/22 07/26/22 Rx furosemide 40 mg tablet 40 mg PO BID #180 tabs 07/20/22 07/26/22 Rx nystatin 100,000 unit/gram topical 1 applic topical TID PRN rash #60 07/20/22 07/26/22 Rx powder grams spironolactone 25 mg tablet 25 mg PO DAILY #30 tabs 07/20/22 07/26/22 Rx magnesium chloride 64 mg 128 mg PO TID #540 tabs 07/27/22 Rx (magnesium chloride) tablet,delayed release Allergies Allergy/AdvReac Type Severity Reaction Status Date / Time No Known Allergies Allergy Verified 07/26/22 11:10 Past Med/Surg History Medical History Acute DVT (deep venous thrombosis) 2019> no known cause > Filter to right groin 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 no machine setter Chronic back pain Chronic deep vein thrombosis (DVT) 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 Diverticular hemorrhage resolved Esophageal varices determined by endoscopy Fever GERD (gastroesophageal reflux disease) GI bleed none at present Hyperlipemia Hyponatremia Lower leg edema Migraine Monoclonal gammopathy Obesity Osteoarthritis Proteinuria Pulmonary embolism 2019 > no known cause > Filter to right groin Thrombocytopenia Vertigo Surgical History History of bilateral breast reduction surgery History of bilateral cataract extraction History of carpal tunnel release of both wrists History of section x3 History of colonoscopy History of dilatation and curettage History of esophagogastroduodenoscopy (EGD) History of laparoscopic cholecystectomy History of lumbar spinal fusion hardware in place History of tonsillectomy History of tooth extraction all teeth History of total left knee replacement (TKR) History of total right knee replacement (TKR) Family History Mother Family history of diabetes mellitus Brother Family history of diabetes mellitus 3 brothers Colorectal cancer Myocardial infarction x 2 Father Myocardial infarction Denies family history of Ovarian cancer Prostate cancer Breast cancer Social History Smoking Status: Former smoker Tobacco Type: Cigarettes Age Started Using Tobacco: 15; Age Quit Using Tobacco: 21; Cigarettes Per Day: 1 Pack; Second Hand Exposure: No; Hx Alcohol Use: No Hx Substance Use: No Preferred Language: Estonian Communication Ability: Effective Visual Impairment: Limited Hearing Ability: Normal Pile Driving Nozzleman Required: No Beliefs That Will Affect Care: None marital status: / Current Living Situation: Foster Care Current Living Situation Comment: Home with son current occupational status: retired How many Children do You have: 3 Feels Safe at Home: Yes Childhood Exposure to Second-Hand Smoke: Yes caffeine: Yes (tea) during the past year weight has: remained stable Dental Care, Regularly: No Physical Activity Frequency: Does not Exercise Seatbelt Use: always Sunscreen Use: No Do you think of yourself as: straight/heterosexual Gender Identity: Female Assistive Devices: None Review of Systems A total of 10 systems reviewed and were otherwise negative All systems reviewed & are unremarkable except as noted in HPI & below Physical Exam Vital Signs Vital Signs - 24 hr 07/28/22 02:23 07/28/22 03:30 07/28/22 05:26 Temperature 36.2 C L Temperature Source Temporal Artery Scan Pulse Rate 75 Pulse Rate [Apical] 69 67 Respiratory Rate 16 18 18 Respiratory Effort / Characteristics Non-Labored Spontaneous Non-Labored Spontaneous Respiratory Depth Normal Normal Blood Pressure 157/83 H Blood Pressure [Right Arm] 153/80 H 156/87 H Blood Pressure Mean 107 Blood Pressure Mean [Right Arm] 104 110 Blood Pressure Position [Right Arm] Sitting Lying Pulse Oximetry 96 98 93 Oxygen Delivery Method Room Air Room Air Room Air Sepsis Recent Fever Within 48 Hours No Sepsis New/Unexplained Change in Mental Status No Sepsis Action Taken by Nursing No Action Required GENERAL: alert, well appearing, well nourished, no distress, non-toxic, BMI 51 EYE EXAM: normal conjunctiva, PERRL and EOM's grossly intact OROPHARYNX: no exudate, no erythema, lips, buccal mucosa, and tongue normal and mucous membranes are moist NECK: supple, no nuchal rigidity, no adenopathy, non-tender LUNGS: Clear to auscultation. Normal chest wall mechanics, no w/r/r HEART: no murmurs, S1 normal and S2 normal ABDOMEN: abdomen soft, non-tender, normo-active bowel sounds, no masses, no rebound or guarding. BACK: Back is symmetrical on inspection and there is no deformity, no midline tenderness, no CVA tenderness. SKIN: no rashes and no bruising UPPER EXTREMITIES: upper extremities are grossly normal. FROM, nml pulses b/l. LOWER EXTREMITIES: No pitting edema. FROM, nml pulses b/l. NEURO EXAM: Normal sensorium, cranial nerves II-XII grossly intact, normal speech, no gross weakness of arms, no gross weakness of legs. Gross sensation intact. Course Course 524: I was contacted by nursing staff the patient had a recurrent episode of a bloody bowel movement here. I did collect a specimen and sent to the lab but described it as mostly bloody with small bits of stool, no blood clots noted. Administered Medications Acetaminophen (Acetaminophen 325 Mg Tab) 650 mg PO Q4H PRN PRN Reason: fever or pain Stop: 08/27/22 11:16 Last Admin: 07/30/22 07:45 Dose: 650 mg Documented By: Admin: 07/30/22 02:36 Dose: 650 mg Documented By: Admin: 07/29/22 17:31 Dose: 650 mg Documented By: Admin: 07/29/22 00:24 Dose: 650 mg Documented By: Admin: 07/28/22 17:01 Dose: 650 mg Documented By: KT Atorvastatin Calcium (Atorvastatin 10 Mg Tab) 10 mg PO HS ARMANDO Stop: 08/27/22 20:59 Last Admin: 07/30/22 21:39 Dose: 10 mg Documented By: Admin: 07/29/22 21:26 Dose: 10 mg Documented By: Admin: 07/28/22 21:23 Dose: 10 mg Documented By: PUMA Furosemide (Furosemide 40 Mg/4 Ml Vial) 40 mg IV Q12H ARMANDO Stop: 08/28/22 12:14 Last Admin: 07/30/22 12:17 Dose: 40 mg Documented By: Admin: 07/29/22 23:51 Dose: 40 mg Documented By: Admin: 07/29/22 14:18 Dose: 40 mg Documented By: RELL Pantoprazole Sodium 40 mg/ (Syringe) 10 mls @ 5 mls/min IV BID ARMANDO Stop: 08/28/22 20:59 Last Admin: 07/30/22 21:39 Dose: 5 mls/min Documented By: Admin: 07/30/22 07:46 Dose: 5 mls/min Documented By: Admin: 07/29/22 21:26 Dose: 5 mls/min Documented By: JAG Insulin Aspart (Insulin Aspart Per Unit) 0 units SC ACHS ARMANDO Stop: 08/27/22 11:29 Last Admin: 07/30/22 21:35 Dose: Not Given Documented By: Admin: 07/30/22 18:13 Dose: Not Given Documented By: Admin: 07/30/22 13:09 Dose: Not Given Documented By: Admin: 07/30/22 09:33 Dose: Not Given Documented By: Admin: 07/29/22 21:25 Dose: Not Given Documented By: Admin: 07/29/22 17:43 Dose: Not Given Documented By: Admin: 07/29/22 12:41 Dose: Not Given Documented By: Admin: 07/29/22 08:47 Dose: Not Given Documented By: Admin: 07/28/22 21:22 Dose: 1 units Documented By: PUMA Co-signed By: RES Admin: 07/28/22 17:10 Dose: Not Given Documented By: Admin: 07/28/22 13:33 Dose: Not Given Documented By: RAFAEL Levothyroxine Sodium (Levothyroxine Sodium 50 Mcg Tablet) 50 mcg PO DAILYBB [facility] Stop: 08/27/22 11:29 Last Admin: 07/30/22 05:27 Dose: 50 mcg Documented By: Admin: 07/29/22 06:13 Dose: 50 mcg Documented By: Admin: 07/28/22 13:07 Dose: 50 mcg Documented By: RAFAEL Lisinopril (Lisinopril 10 Mg Tab) 10 mg PO DAILY ARMANDO Stop: 08/27/22 11:29 Last Admin: 07/30/22 07:46 Dose: 10 mg Documented By: Admin: 07/29/22 08:19 Dose: 10 mg Documented By: Admin: 07/28/22 13:07 Dose: 10 mg Documented By: RAFAEL Multivitamins (Multivitamin Tab) 1 tab PO QAM ARMANDO Stop: 08/27/22 11:29 Last Admin: 07/30/22 07:47 Dose: 1 tab Documented By: Admin: 07/29/22 08:19 Dose: 1 tab Documented By: Admin: 07/28/22 13:07 Dose: 1 tab Documented By: RAFAEL Nystatin (Nystatin Powder 15gm Btl) 1 appln EXT TID PRN PRN Reason: rash Stop: 08/27/22 11:16 Last Admin: 07/30/22 15:55 Dose: 1 appln Documented By: RELL Spironolactone (Spironolactone 25 Mg Tab) 25 mg PO DAILY ARMANDO Stop: 08/27/22 11:16 Last Admin: 07/30/22 07:46 Dose: 25 mg Documented By: Admin: 07/29/22 08:19 Dose: 25 mg Documented By: Admin: 07/28/22 13:06 Dose: 25 mg Documented By: RAFAEL Vitamin D (Cholecalciferol 1,000 Units 25 Mcg Tab) 2,000 units PO QAM ARMANDO Stop: 08/27/22 11:29 Last Admin: 07/30/22 07:46 Dose: 2,000 units Documented By: Admin: 07/29/22 08:19 Dose: 2,000 units Documented By: Admin: 07/28/22 13:06 Dose: 2,000 units Documented By: RAFAEL Discontinued Medications Furosemide (Furosemide 40 Mg Tab) 40 mg PO [id number] ARMANDO Stop: 08/27/22 11:29 Last Admin: 07/29/22 06:13 Dose: 40 mg Documented By: Admin: 07/28/22 15:56 Dose: 40 mg Documented By: Admin: 07/28/22 13:06 Dose: 40 mg Documented By: RAFAEL Magnesium Sulfate/Dextrose (Magnesium Sulfate / D5w) 1 gm in 100 mls @ 100 mls/hr IV NOW STA Stop: 07/28/22 06:42 Last Infusion: 07/28/22 07:00 Dose: 0 mls/hr Documented By: Admin: 07/28/22 05:46 Dose: 100 mls/hr Documented By: CHRIS Pantoprazole Sodium 40 mg/ (Dextrose) 100 mls @ 20 mls/hr IV Q5H [facility] Stop: 08/27/22 12:59 Last Infusion: 07/29/22 12:32 Dose: 0 mg/hr, 0 mls/hr Documented By: Infusion: 07/29/22 12:19 Dose: 0 mg/hr, 0 mls/hr Documented By: Admin: 07/29/22 10:03 Dose: 8 mg/hr, 20 mls/hr Documented By: Infusion: 07/29/22 09:56 Dose: 8 mg/hr, 20 mls/hr Documented By: Admin: 07/29/22 04:56 Dose: 8 mg/hr, 20 mls/hr Documented By: Infusion: 07/29/22 04:50 Dose: 0 mg/hr, 0 mls/hr Documented By: Admin: 07/28/22 23:50 Dose: 8 mg/hr, 20 mls/hr Documented By: Infusion: 07/28/22 23:44 Dose: 0 mg/hr, 0 mls/hr Documented By: Admin: 07/28/22 18:44 Dose: 8 mg/hr, 20 mls/hr Documented By: Infusion: 07/28/22 18:44 Dose: 8 mg/hr, 20 mls/hr Documented By: Admin: 07/28/22 13:44 Dose: 8 mg/hr, 20 mls/hr Documented By: RAFAEL Ioversol (Optiray 350 100ml) 100 ml IV ONCE ONE Stop: 07/28/22 05:09 Last Admin: 07/28/22 05:09 Dose: 87 ml Documented By: CHECO Ketamine HCl (Ketamine 50 Mg/5 Ml Syringe) Confirm Administered Dose 50 mg .ROUTE .STK-MED ONE Stop: 07/29/22 15:20 Last Admin: 07/29/22 16:49 Dose: Not Given Documented By: RELL Lidocaine HCl (Lidocaine 2% Mpf Local 5 Ml Vial) Confirm Administered Dose 5 ml INFIL .STK-MED ONE Stop: 07/29/22 15:08 Last Admin: 07/29/22 16:48 Dose: Not Given Documented By: RELL Non-Formulary Medication (Coenzyme Q10) 200 mg PO DAILY ARMANDO Stop: 08/27/22 11:16 Last Admin: 07/28/22 13:35 Dose: Not Given Documented By: RAFAEL Perflutren Lipid Microsphere (Perflutren Lipid Microsphere (Definity)) 2 ml IV ONCE ONE Stop: 07/29/22 13:58 Last Admin: 07/29/22 13:58 Dose: 2 ml Documented By: JAMIL Propofol (Propofol Iv Emulsion 10 Mg/Ml 20 Ml Vial) Confirm Administered Dose 200 mg IV .STK-MED ONE Stop: 07/29/22 15:08 Last Admin: 07/29/22 16:48 Dose: Not Given Documented By: RELL Medical Decision Making Differential Diagnosis Differential diagnosis includes etiologies such as diverticulosis, AVM, coagulopathy, colitis, inflammatory bowel disease, malignancy, Trudy-Friedman tear, esophagitis, peptic ulcer disease, variceal bleed, gastritis, epistaxis, fissure, hemorrhoids, as well as others were entertained. Medical Records Attestation: I reviewed the patient's medical records. Home Medications Current Medication List: was personally reviewed by me Laboratory Data Attestation: I reviewed the patient's lab results. 07/28/22 03:27 07/28/22 03:27 Lab Results 07/28/22 07/28/22 07/28/22 Range/Units 03:27 03:27 03:27 WBC 3.04 L (4.8-10.8) K/ul RBC 3.50 L (3.93-5.22) M/uL Hgb 9.8 L (12.0-16.0) g/dl Hct 30.8 L (34.1-44.9) % MCV 88.0 (80.0-100.0) fL MCH 28.0 (25.0-34.0) pg MCHC 31.8 L (32.0-36.0) g/dL RDW Std Deviation 50.8 H (36.4-46.3) fL RDW Coeff of Leah 15.9 H (11.5-14.5) % Plt Count 92 L (130-400) K/uL MPV 10.8 (9.4-12.3) fL PT Cancelled INR Cancelled Sodium TNP Potassium TNP Chloride 99 (98-107) mmol/L Carbon Dioxide 31 (21-32) mmol/L Anion Gap TNP BUN 40 H (6-23) mg/dl Creatinine 1.30 H (0.6-1.2) mg/dl Est Cr Clr Drug Dosing Not Reportable Est GFR ( Amer) 45.5 ml/min Est GFR (Non-Af Amer) 39.3 ml/min BUN/Creatinine Ratio 30.8 H (10-20) Glucose 73 (70-99(Fasting)) mg/dl Calcium 8.1 L (8.5-10.1) mg/dl Magnesium TNP Total Bilirubin 0.6 (0.2-1.0) mg/dl AST TNP ALT 20 (7-52) U/L Alkaline Phosphatase 78 (34-104) U/L Total Protein 7.5 (6.0-8.3) gm/dl Albumin 2.7 L (3.4-5.0) gm/dl Globulin 4.8 H (2.5-4.0) gm/dl Albumin/Globulin Ratio 0.6 L (0.9-2) Lipase 54 (11-82) U/L SARS-CoV-2, RNA, NAAT (NEGATIVE) Blood Type Antibody Screen 07/28/22 07/28/22 07/28/22 Range/Units 04:00 04:49 04:49 WBC (4.8-10.8) K/ul RBC (3.93-5.22) M/uL Hgb (12.0-16.0) g/dl Hct (34.1-44.9) % MCV (80.0-100.0) fL MCH (25.0-34.0) pg MCHC (32.0-36.0) g/dL RDW Std Deviation (36.4-46.3) fL RDW Coeff of Leah (11.5-14.5) % Plt Count (130-400) K/uL MPV (9.4-12.3) fL PT 13.1 H INR 1.2 H Sodium 137 Potassium 4.7 Chloride (98-107) mmol/L Carbon Dioxide (21-32) mmol/L Anion Gap BUN (6-23) mg/dl Creatinine (0.6-1.2) mg/dl Est Cr Clr Drug Dosing Est GFR ( Amer) ml/min Est GFR (Non-Af Amer) ml/min BUN/Creatinine Ratio (10-20) Glucose (70-99(Fasting)) mg/dl Calcium (8.5-10.1) mg/dl Magnesium 1.6 L Total Bilirubin (0.2-1.0) mg/dl AST 42 H ALT (7-52) U/L Alkaline Phosphatase (34-104) U/L Total Protein (6.0-8.3) gm/dl Albumin (3.4-5.0) gm/dl Globulin (2.5-4.0) gm/dl Albumin/Globulin Ratio (0.9-2) Lipase (11-82) U/L SARS-CoV-2, RNA, NAAT (NEGATIVE) Blood Type A Negative Antibody Screen NEGATIVE 07/28/22 Range/Units 08:15 WBC (4.8-10.8) K/ul RBC (3.93-5.22) M/uL Hgb (12.0-16.0) g/dl Hct (34.1-44.9) % MCV (80.0-100.0) fL MCH (25.0-34.0) pg MCHC (32.0-36.0) g/dL RDW Std Deviation (36.4-46.3) fL RDW Coeff of Leah (11.5-14.5) % Plt Count (130-400) K/uL MPV (9.4-12.3) fL PT INR Sodium Potassium Chloride (98-107) mmol/L Carbon Dioxide (21-32) mmol/L Anion Gap BUN (6-23) mg/dl Creatinine (0.6-1.2) mg/dl Est Cr Clr Drug Dosing Est GFR ( Amer) ml/min Est GFR (Non-Af Amer) ml/min BUN/Creatinine Ratio (10-20) Glucose (70-99(Fasting)) mg/dl Calcium (8.5-10.1) mg/dl Magnesium Total Bilirubin (0.2-1.0) mg/dl AST ALT (7-52) U/L Alkaline Phosphatase (34-104) U/L Total Protein (6.0-8.3) gm/dl Albumin (3.4-5.0) gm/dl Globulin (2.5-4.0) gm/dl Albumin/Globulin Ratio (0.9-2) Lipase (11-82) U/L SARS-CoV-2, RNA, NAAT NEGATIVE (NEGATIVE) Blood Type Antibody Screen ECG Data Attestation: I personally reviewed and interpreted this ECG as follows: Indication: + other Rate (beats per minute): 71 Rhythm: + normal sinus ECG Intervals/blocks: + Right Bundle branch block and + Normal QT ECG [place]: + Left axis deviation ECG ST segments: + Nonspecific ST abnormalities MDM Narrative An order was placed for continuous cardiac monitoring. The monitor shows a rate of __68_ with rhythm. This is a 76 yo female who presents due to concern for GI bleed. Patient is anticoagulated due to a recent dx of DVT. She has a prior hx of GI bleed from varices. No recent melena, she denies n/v. Minimal abdominal cramping prior to several episodes of bright red blood per rectum at home. Labs drawn, IV established, EKG obtained and pt placed on tele. Patient sent for CT a/p additionally. On review of EMR, pt previously noted by GI on colo to have hemorrhoids internal/external as well as diverticulosis. She denies any diarrhea, constipation, straining with bowel movements. VS stable. EKG interpreted by me as above. CT reassuring. Patient had recurrent episode of bright red blood here. H/H down slightly compared to prior. IV magnesium given for repletion. VS stable. PT/INR normal, platelets low but stable compared to prior. Repeat US RLE still showed DVT's. Due to recurrent bleeding on anticoagulation, worsening anemia, risk given hx of thrombocytopenia and chronic liver dysfunction, case discussed with the hospitalist for additional evaluation and treatment. Impression & Plan Acute GI bleeding, Thrombocytopenia, Anemia, Hypomagnesemia, DVT (deep venous thrombosis) Discharge Plan Visit Data Chief Complaint: Rectal Bleed Stated Complaint: RECTAL BLEED ED Provider: Cierra Jolley Discharge Problem: Acute GI bleeding, Thrombocytopenia, Anemia, Hypomagnesemia, DVT (deep venous thrombosis) Patient Disposition: Admitted As Inpatient Discharge Instructions Interventions: ED Discharge Assessment Last Done: 07/28/22 10:52
[2022-07-28 04:13] LABS: Alanine Aminotransferase 20 U/L (7-52); Albumin Globulin Ratio 0.6 (0.9-2); Albumin Level 2.7 gm/dl (3.4-5.0); Alkaline Phosphatase 78 U/L (34-104); BUN Creatinine Ratio 30.8 (10-20); Bilirubin,Total 0.6 mg/dl (0.2-1.0); Blood Urea Nitrogen 40 mg/dl (6-23); Calcium 8.1 mg/dl (8.5-10.1); Carbon Dioxide 31 mmol/L (21-32); Chloride 99 mmol/L (98-107); Est GFR (African American) 45.5 ml/min; Est GFR (Non-African American) 39.3 ml/min; Globulin 4.8 gm/dl (2.5-4.0); Glucose 73 mg/dl (70-99(Fasting)); Lipase 54 U/L (11-82); Total Protein 7.5 gm/dl (6.0-8.3)
[2022-07-28] MEDS ORDERED: OPTIRAY 350 100ml IV ONE (05:08)
[2022-07-28 05:16] LABS: INR 1.2 (0.9-1.1); Prothrombin Time 13.1 Seconds (9.0-12.0)
[2022-07-28 05:25] LABS: Magnesium 1.6 mg/dl (1.7-2.4); Potassium 4.7 mmol/L (3.5-5.1)
[2022-07-28] MEDS ORDERED: MAGNESIUM SULFATE / D5W 1 GM/100 ML BAG IV STA (05:43)
--- NOTE | 2022-07-28 06:44 | CT Scan Report ---
CT OF THE ABDOMEN AND PELVIS WITH CONTRAST CLINICAL HISTORY: GI bleed. COMPARISON STUDY: CT of the abdomen and pelvis April 05, 2022. TECHNIQUE: Following IV administration of 87 mL of Optiray, axial images of the abdomen and pelvis we re obtained from the lung bases to the proximal femurs. Images were reviewed in the axial, sagittal, and coronal planes. IV contrast was administered without complication. Automated exposure control wa s utilized for the study. A dose lowering technique was utilized adhering to the principles of ALARA . CT DOSE: 1910.33 mGy.cm FINDINGS: Cardiomegaly with a trace pericardial effusion increased bilateral pleural effusions are no derek within the lower lungs. Subpleural opacities favor atelectasis. There is mild interlobular septal thickening. No pneumatosis, free air or portal venous gas is present. Liver is cirrhotic. No hepatic lesions are identified on this venous phase exam. There is no biliary ductal dilatation status post cholecystectomy. Splenomegaly, varices formation and small amount of ascites are noted. Body wall brandy ma suggestive of anasarca is now noted. IVC filters in place. Adrenal glands, kidneys and pancreas ar e unremarkable. There is no hydronephrosis. Major vasculature is patent. Sigmoid diverticulosis is no derek without evidence for acute diverticulitis. Caliber and wall thickness of small and large bowel ar e normal. The appendix is unremarkable. No acute fractures within the visualized skeletal structures. Postoperative findings within the spine are incidentally noted. IMPRESSION: 1. No bowel obstruction. No bowel wall thickening. 2. Cirrhosis with manifestations of portal hypertension including varices, splenomegaly and a small a mount of ascites. 3. Trace bilateral pleural effusions. Anasarca with body wall edema. ACT 112: Negative or not required by law. Electronically signed by: Eris Friedman M.D. 07/28/2022 6:41 AM
--- NOTE | 2022-07-28 07:35 | Ultrasound Report ---
RIGHT LOWER EXTREMITY VENOUS DOPPLER CLINICAL HISTORY: dvt COMPARISON STUDY: Right lower extremity venous Doppler ultrasound May 18, 2022. TECHNIQUE: Sonography of the deep venous system of the right lower extremity was performed. Compress ion and augmentation were evaluated. FINDINGS: The right common femoral and superficial femoral were compressible. Note is again made of deep venous thrombus within one of 2 right popliteal veins. This is similar to ultrasound of May 18, 2022. Augmentation was normal. Flow was shown within the deep calf vessels. Study is compromised by by suboptimal penetration. IMPRESSION: 1. No evidence of acute deep venous thrombus within the right lower extremity. 2. No change in deep venous thrombus within one of 2 right popliteal veins since prior ultrasound. Th is represents chronic thrombus. ACT 112: Negative or not required by law. Electronically signed by: Eris Friedman M.D. 07/28/2022 7:34 AM
--- NOTE | 2022-07-28 09:44 | History & Physical Report ---
Date of Service July 28, 2022 Assessment & Plan (1) Rectal bleeding: Plan: Hold anticoagulation Trend H&H every 6 hours - Consented for blood transfusion should it be required -hx of prior blood transfusion (2) Chronic deep vein thrombosis (DVT): Plan: Positive lower extremity venous duplex on October 03, 2021, reviewed follow-up March and April 2022 indicating stability -Repeat imaging today remains unchanged: Chronic DVT IVC Filter present - systemic anticoaglation contrindicated secondary to ongoing blood loss - Mechanical compression devices contraindicated due to presence of DVT (3) Liver cirrhosis: Plan: . Routine gastroenterology consult. 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 Who presents to the emergency department after several episodes of painless bright red rectal bleeding when moving bowels. . She had a similar episode several years ago which she was diagnosed with aEsophageal variceal bleed and this concerned her that she felt she needed evaluation. She also has had previous diverticular bleeding that resolved spontaneously. Currently she is chest pain-free, she is chronically short of breath reporting that ambulating to the bathroom and back makes her winded: Again this is unchanged from her baseline. She denies missing medications or taking too many medications. She lives with her son who is able to help her complete her activities of daily living. She would prefer to not be on blood thinners, she reports that she was started on blood thinners for a DVT in the lower extremityand was on a "low dose" Allergies Allergy/AdvReac Type Severity Reaction Status Date / Time No Known Allergies Allergy Verified 07/26/22 11:10 Home Medications Medication Instructions Recorded Confirmed Type cholecalciferol (vitamin D3) 50 2,000 unit PO QAM 07/01/18 07/26/22 History mcg (2,000 unit) capsule (Vitamin D3) docusate sodium 100 mg capsule 100 mg PO BID PRN Constipation 07/01/18 07/26/22 History multivitamin 1 tab PO QAM 10/14/19 07/26/22 History vitamin E 268 mg (400 unit) capsule 400 unit PO QAM 08/14/20 07/26/22 History atorvastatin 10 mg tablet 10 mg PO HS #90 tabs 08/12/21 07/26/22 Rx glimepiride 1 mg tablet 1 mg PO BID #180 tabs 08/12/21 07/26/22 Rx coenzyme Q10 200 mg capsule 200 mg PO DAILY 11/01/21 07/26/22 History acetaminophen 325 mg tablet 650 mg PO Q4H PRN fever or pain 03/23/22 07/26/22 Rx #30 tabs famotidine 20 mg tablet 20 mg PO BID PRN Heartburn 04/05/22 07/26/22 History polyethylene glycol 3350 17 gram 17 g PO DAILY PRN Constipation 04/05/22 07/26/22 History oral powder packet (Miralax) levothyroxine 50 mcg tablet 50 mcg PO DAILY #90 tabs 04/12/22 07/26/22 Rx lisinopril 10 mg tablet 10 mg PO DAILY 04/25/22 07/26/22 History metformin 500 mg tablet 500 mg PO DAILY 04/25/22 07/26/22 History apixaban 2.5 mg tablet (Eliquis) 2.5 mg PO BID #60 tabs 07/11/22 07/26/22 Rx sodium chloride 1 gram tablet 1,000 mg PO DAILY #90 tabs 07/11/22 07/26/22 Rx furosemide 40 mg tablet 40 mg PO BID #180 tabs 07/20/22 07/26/22 Rx nystatin 100,000 unit/gram topical 1 applic topical TID PRN rash #60 07/20/22 07/26/22 Rx powder grams spironolactone 25 mg tablet 25 mg PO DAILY #30 tabs 07/20/22 07/26/22 Rx magnesium chloride 64 mg 128 mg PO TID #540 tabs 07/27/22 Rx (magnesium chloride) tablet,delayed release Past Med/Surg History Medical History Acute DVT (deep venous thrombosis) 2019> no known cause > Filter to right groin 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 Chronic back pain Chronic deep vein thrombosis (DVT) 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 Diverticular hemorrhage resolved Esophageal varices determined by endoscopy Fever GERD (gastroesophageal reflux disease) GI bleed none at present Hyperlipemia Hyponatremia Lower leg edema Migraine Monoclonal gammopathy Obesity Osteoarthritis Proteinuria Pulmonary embolism 2018 > no known cause > Filter to right groin Thrombocytopenia Vertigo Surgical History History of bilateral breast reduction surgery History of bilateral cataract extraction History of carpal tunnel release of both wrists History of section x3 History of colonoscopy History of dilatation and curettage History of esophagogastroduodenoscopy (EGD) History of laparoscopic cholecystectomy History of lumbar spinal fusion hardware in place History of tonsillectomy History of tooth extraction all teeth History of total left knee replacement (TKR) History of total right knee replacement (TKR) Family History Mother Family history of diabetes mellitus Brother Family history of diabetes mellitus 3 brothers Colorectal cancer Myocardial infarction x 2 Father Myocardial infarction Denies family history of Ovarian cancer Prostate cancer Breast cancer Social History Smoking Status: Former smoker Tobacco Type: Cigarettes Age Started Using Tobacco: 15; Age Quit Using Tobacco: 21; Cigarettes Per Day: 1 Pack; Second Hand Exposure: No; Hx Alcohol Use: No Hx Substance Use: No Preferred Language: Albanian Communication Ability: Effective Visual Impairment: Limited Hearing Ability: Normal Veterans Contact Representative Required: No Beliefs That Will Affect Care: None marital status: / Current Living Situation: Family Current Living Situation Comment: Home with son current occupational status: retired How many Children do You have: 3 Feels Safe at Home: Yes Childhood Exposure to Second-Hand Smoke: Yes caffeine: Yes (tea) during the past year weight has: remained stable Dental Care, Regularly: No Physical Activity Frequency: Does not Exercise Seatbelt Use: always Sunscreen Use: No Do you think of yourself as: straight/heterosexual Gender Identity: Female Assistive Devices: Glasses and Walker Review of Systems Review of Systems: Chronic exertional dyspnea with walking to toilet and back, no chest pain, painless bright red blood per rectum not mixed with stool Physical Exam Physical Exam: . General: Alert. nontoxic. Skin: Warm, dry, Head: Atraumatic Ears, nose, mouth and throat: airway patent Cardiovascular: Normal peripheral perfusion Respiratory: no respiratory distress Gastrointestinal: Non distended Musculoskeletal: No deformity Results & Data Results & Data ([facility]) Vital Signs (Past 12 Hours) Vital Signs Temp Pulse Pulse Resp BP BP Pulse Ox 07/28/22 08:09 188/94 H 07/28/22 08:09 16 95 07/28/22 05:26 67 18 156/87 H 93 07/28/22 03:30 69 18 153/80 H 98 07/28/22 02:23 36.2 C L 75 16 157/83 H 96 O2 Del Method 07/28/22 08:09 07/28/22 08:09 07/28/22 05:26 Room Air 07/28/22 03:30 Room Air 07/28/22 02:23 Room Air Critical Care Results & Data Vital Signs (Past 12 Hours) Vital Signs Temp Pulse Pulse Resp BP BP Pulse Ox 07/28/22 08:09 188/94 H 07/28/22 08:09 16 95 07/28/22 05:26 67 18 156/87 H 93 07/28/22 03:30 69 18 153/80 H 98 07/28/22 02:23 36.2 C L 75 16 157/83 H 96 O2 Del Method 07/28/22 08:09 07/28/22 08:09 07/28/22 05:26 Room Air 07/28/22 03:30 Room Air 07/28/22 02:23 Room Air Lab & Micro Results (Past 24 Hours) RBC 3.50 M/uL (3.93-5.22) L 07/28/22 WBC 3.04 K/ul (4.8-10.8) L 07/28/22 Hgb 9.8 g/dl (12.0-16.0) L 07/28/22 Hct 30.8 % (34.1-44.9) L 07/28/22 MCV 88.0 fL (80.0-100.0) 07/28/22 MCH 28.0 pg (25.0-34.0) 07/28/22 MCHC 31.8 g/dL (32.0-36.0) L 07/28/22 RDW Standard Deviation 50.8 fL (36.4-46.3) H 07/28/22 RDW Coefficient of Variation 15.9 % (11.5-14.5) H 07/28/22 Plt Count 92 K/uL (130-400) L 07/28/22 MPV 10.8 fL (9.4-12.3) 07/28/22 Na 137 mmol/L (136-145) 07/28/22 K 4.7 mmol/L (3.5-5.1) 07/28/22 Cl 99 mmol/L (98-107) 07/28/22 CO2 31 mmol/L (21-32) 07/28/22 Anion Gap TNP 07/28/22 BUN 40 mg/dl (6-23) H 07/28/22 Creatinine 1.30 mg/dl (0.6-1.2) H 07/28/22 Estimated GFR ( Amer) 45.5 ml/min 07/28/22 Estimated GFR (Non-Af Amer) 39.3 ml/min 07/28/22 BUN/Creatinine Ratio 30.8 (10-20) H 07/28/22 Glu 73 mg/dl (70-99(Fasting)) 07/28/22 Ca 8.1 mg/dl (8.5-10.1) L 07/28/22 Total Bilirubin 0.6 mg/dl (0.2-1.0) 07/28/22 AST 42 U/L (13-39) H 07/28/22 ALT 20 U/L (7-52) 07/28/22 Alkaline Phosphatase 78 U/L (34-104) 07/28/22 TP 7.5 gm/dl (6.0-8.3) 07/28/22 Albumin 2.7 gm/dl (3.4-5.0) L 07/28/22 Globulin 4.8 gm/dl (2.5-4.0) H 07/28/22 Albumin/Globulin Ratio 0.6 (0.9-2) L 07/28/22 Mg 1.6 mg/dl (1.7-2.4) L 07/28/22 04:49 Calcium Level 8.1 mg/dl (8.5-10.1) L 07/28/22 03:27 Prothromb Time International Ratio 1.2 (0.9-1.1) H 07/28/22 04 :49 Diagnostic Findings (Past 24 Hours) Abdomen/Pelvis CT 07/28/22 03:43 CT OF THE ABDOMEN AND PELVIS WITH CONTRAST CLINICAL HISTORY: GI bleed. COMPARISON STUDY: CT of the abdomen and pelvis April 05, 2022. TECHNIQUE: Following IV administration of 87 mL of Optiray, axial images of the abdomen and pelvis were obtained from the lung bases to the proximal femurs. Images were reviewed in the axial, sagittal, and coronal planes. IV contrast was administered without complication. Automated exposure control was utilized for the study. A dose lowering technique was utilized adhering to the principles of ALARA. CT DOSE: 1910.33 mGy.cm FINDINGS: Cardiomegaly with a trace pericardial effusion increased bilateral pleural effusions are noted within the lower lungs. Subpleural opacities favor atelectasis. There is mild interlobular septal thickening. No pneumatosis, free air or portal venous gas is present. Liver is cirrhotic. No hepatic lesions are identified on this venous phase exam. There is no biliary ductal dilatation status post cholecystectomy. Splenomegaly, varices formation and small amount of ascites are noted. Body wall edema suggestive of anasarca is now noted. IVC filters in place. Adrenal glands, kidneys and pancreas are unremarkable. There is no hydronephrosis. Major vasculature is patent. Sigmoid diverticulosis is noted without evidence for acute diverticulitis. Caliber and wall thickness of small and large bowel are normal. The appendix is unremarkable. No acute fractures within the visualized skeletal structures. Postoperative findings within the spine are incidentally noted. IMPRESSION: 1. No bowel obstruction. No bowel wall thickening. 2. Cirrhosis with manifestations of portal hypertension including varices, splenomegaly and a small amount of ascites. 3. Trace bilateral pleural effusions. Anasarca with body wall edema. ACT 112: Negative or not required by law. Electronically signed by: Eris Friedman M.D. 07/28/2022 6:41 AM Venous Doppler Study 07/28/22 05:16 RIGHT LOWER EXTREMITY VENOUS DOPPLER CLINICAL HISTORY: dvt COMPARISON STUDY: Right lower extremity venous Doppler ultrasound May 18, 2022. TECHNIQUE: Sonography of the deep venous system of the right lower extremity was performed. Compression and augmentation were evaluated. FINDINGS: The right common femoral and superficial femoral were compressible. Note is again made of deep venous thrombus within one of 2 right popliteal veins. This is similar to ultrasound of May 18, 2022. Augmentation was normal. Flow was shown within the deep calf vessels. Study is compromised by by suboptimal penetration. IMPRESSION: 1. No evidence of acute deep venous thrombus within the right lower extremity. 2. No change in deep venous thrombus within one of 2 right popliteal veins since prior ultrasound. This represents chronic thrombus. ACT 112: Negative or not required by law. Electronically signed by: Eris Friedman M.D. 07/28/2022 7:34 AM RT Ventilator Mngmt (Last Documented) Ventilator Ordered Settings Respiratory Rate 16 07/28/22 08:09 Ventilator - PT Measurements Respiratory Rate 16 Code Status & VTE Plan Code Status DNR in event of cardiac arrest VTE Prophylaxis Plan VTE Prophylaxis will be ordered: No Reason for no VTE drug order: Adverse reaction to drug and Treatment not indicated PG Care Time/CCT Total # of Minutes Spent Total Time Spent with Patient: Total time spent is greater than 50% in coordination of care (as documented) at patient's floor/unit and/or counseling patient: Coding Level of Care Code 69326 INT INP/OBS CARE 3/75MIN Diagnoses Rectal bleeding K62.5 Chronic deep vein thrombosis (DVT) I82.509 Liver cirrhosis K74.60 Fatty liver K76.0 Presence of IVC filter 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
[2022-07-28] MEDS ORDERED: GLUCOSE 10 TAB/TUBE PO PRN (11:17)
[2022-07-28] MEDS ORDERED: GLUCAGON FOR INJ 1 MG VIAL SQ PRN (11:17)
[2022-07-28] MEDS ORDERED: DOCUSATE SODIUM 100 MG CAP PO PRN (11:17)
[2022-07-28] MEDS ORDERED: CARBOHYDRATES FOR HYPOGLYCEMIA PO PRN (11:17)
[2022-07-28] MEDS ORDERED: GLUCOSE 40% GEL 15 GM TUBE PO PRN (11:17)
[2022-07-28] MEDS ORDERED: DEXTROSE 50% 50 ML SYRINGE IV PRN (11:17)
[2022-07-28] MEDS ORDERED: FAMOTIDINE 20 MG TAB PO PRN (11:17)
[2022-07-28] MEDS ORDERED: NON-FORMULARY MEDICATION (Coenzyme Q10 200 mg capsule) PO SCH (11:17)
[2022-07-28] MEDS ORDERED: POLYETHYLENE (MIRALAX) 17 GM PACK PO PRN (11:17)
--- NOTE | 2022-07-28 12:00 | Gastrointestinal Consultation ---
Date of Consultation July 28, 2022 Assessment & Plan (1) Rectal bleeding: Possibly diverticular vs hemorrhoidal bleeding. Does not present like a variceal bleed. Patient is hemodynamically stable. BP hypertensive and no ongoing GI bleeding at the present time. Discussed with attending GI physician, Dr. Gregory. -IV PPI gtt -Monitor H/H -Monitor for further evidence of ongoing bleeding; if continues to bleed, can consider endoscopic evaluation at that time. She is due for follow-up for her cirrhosis with her GI team at [facility] and will need to see them upon discharge regardless of the etiology of the bleeding. Supervising Physician Co-Signing Physician Notes I personally evaluated the patient and agree with the findings as documented by RAUL Szymanski History of Present Illness Attending Physician: Antwan Lucero MD History of Present Illness Patient is a 76 yo female with PMH of HTN, DVT, monoclonal gammopathy, fatty liver, diabetes, & HLD who presented to the ED at [facility] after several episodes of painless bright red rectal bleeding when moving her bowels. She is a patient of [facility]. She is a cirrhotic with portal hypertension and known history of esophageal varices. She was hospitalized in 2019 and was cared for by [facility] Dr. Aleman and was felt to have a diverticular bleed that resolved. Many years ago she reportedly had a variceal bleed, but her last EGD in November 2020 was unremarkable without esophageal varices. She notes that over the past several days she has developed an obvious protrusion of hemorrhoids. She is hypertensive with a BP of 176/84.HR appropriate at 72 and she is saturating at 98% on room air. She is on Apixaban chronically. No abdominal pain, nausea, hematemesis, coffee ground emesis, vomiting, epigastric pain, heartburn, diarrhea, or constipation. CT abdomen in the ED unremarkable for acute concerns related to bleeding. H/H presently 9.8/30.8. Previous H/H on 07/05/22 was 11.2/37.4 Allergies Allergy/AdvReac Type Severity Reaction Status Date / Time No Known Allergies Allergy Verified 07/26/22 11:10 Home Medications Medication Instructions Recorded Confirmed Type cholecalciferol (vitamin D3) 50 2,000 unit PO QAM 07/01/18 07/26/22 History mcg (2,000 unit) capsule (Vitamin D3) docusate sodium 100 mg capsule 100 mg PO BID PRN Constipation 07/01/18 07/26/22 History multivitamin 1 tab PO QAM 10/14/19 07/26/22 History vitamin E 268 mg (400 unit) capsule 400 unit PO QAM 08/14/20 07/26/22 History atorvastatin 10 mg tablet 10 mg PO HS #90 tabs 08/12/21 07/26/22 Rx glimepiride 1 mg tablet 1 mg PO BID #180 tabs 08/12/21 07/26/22 Rx coenzyme Q10 200 mg capsule 200 mg PO DAILY 11/01/21 07/26/22 History acetaminophen 325 mg tablet 650 mg PO Q4H PRN fever or pain 03/23/22 07/26/22 Rx #30 tabs famotidine 20 mg tablet 20 mg PO BID PRN Heartburn 04/05/22 07/26/22 History polyethylene glycol 3350 17 gram 17 g PO DAILY PRN Constipation 04/05/22 07/26/22 History oral powder packet (Miralax) levothyroxine 50 mcg tablet 50 mcg PO DAILY #90 tabs 04/12/22 07/26/22 Rx lisinopril 10 mg tablet 10 mg PO DAILY 04/25/22 07/26/22 History metformin 500 mg tablet 500 mg PO DAILY 04/25/22 07/26/22 History apixaban 2.5 mg tablet (Eliquis) 2.5 mg PO BID #60 tabs 07/11/22 07/26/22 Rx sodium chloride 1 gram tablet 1,000 mg PO DAILY #90 tabs 07/11/22 07/26/22 Rx furosemide 40 mg tablet 40 mg PO BID #180 tabs 07/20/22 07/26/22 Rx nystatin 100,000 unit/gram topical 1 applic topical TID PRN rash #60 07/20/22 07/26/22 Rx powder grams spironolactone 25 mg tablet 25 mg PO DAILY #30 tabs 07/20/22 07/26/22 Rx magnesium chloride 64 mg 128 mg PO TID #540 tabs 07/27/22 Rx (magnesium chloride) tablet,delayed release Patient History Medical History Acute DVT (deep venous thrombosis) 2019> no known cause > Filter to right groin 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 reimbursement Chronic back pain Chronic deep vein thrombosis (DVT) 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 Diverticular hemorrhage resolved Esophageal varices determined by endoscopy Fever GERD (gastroesophageal reflux disease) GI bleed none at present Hyperlipemia Hyponatremia Lower leg edema Migraine Monoclonal gammopathy Obesity Osteoarthritis Proteinuria Pulmonary embolism 2019 > no known cause > Filter to right groin Thrombocytopenia Vertigo Surgical History History of bilateral breast reduction surgery History of bilateral cataract extraction History of carpal tunnel release of both wrists History of section x3 History of colonoscopy History of dilatation and curettage History of esophagogastroduodenoscopy (EGD) History of laparoscopic cholecystectomy History of lumbar spinal fusion hardware in place History of tonsillectomy History of tooth extraction all teeth History of total left knee replacement (TKR) History of total right knee replacement (TKR) Family History Mother Family history of diabetes mellitus Brother Family history of diabetes mellitus 3 brothers Colorectal cancer Myocardial infarction x 2 Father Myocardial infarction Denies family history of Ovarian cancer Prostate cancer Breast cancer Social History Smoking Status: Former smoker Tobacco Type: Cigarettes Age Started Using Tobacco: 15; Age Quit Using Tobacco: 21; Cigarettes Per Day: 1 Pack; Second Hand Exposure: No; Hx Alcohol Use: No Hx Substance Use: No Preferred Language: Mauritian Communication Ability: Effective Visual Impairment: Limited Hearing Ability: Normal 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 Beliefs That Will Affect Care: None marital status: / Current Living Situation: Foster Care Current Living Situation Comment: Home with son current occupational status: retired How many Children do You have: 3 Other Information That Helps Us Care for You: No Feels Safe at Home: Yes Safety Concerns: Feels Safe At This Time Childhood Exposure to Second-Hand Smoke: Yes caffeine: Yes (tea) during the past year weight has: remained stable Dental Care, Regularly: No Physical Activity Frequency: Does not Exercise Seatbelt Use: always Sunscreen Use: No Do you think of yourself as: straight/heterosexual Gender Identity: Female Assistive Devices: Walker Results & Data ([facility]) Vital Signs (Past 12 Hours) Vital Signs Temp Pulse Pulse Resp BP BP Pulse Ox 07/28/22 10:34 07/28/22 10:01 72 23 07/28/22 10:01 176/84 H 07/28/22 09:29 70 15 98 07/28/22 09:29 183/99 H 07/28/22 08:09 188/94 H 07/28/22 08:09 16 95 07/28/22 05:26 67 18 156/87 H 93 07/28/22 03:30 69 18 153/80 H 98 07/28/22 02:23 36.2 C L 75 16 157/83 H 96 O2 Del Method 07/28/22 10:34 Room Air 07/28/22 10:01 07/28/22 10:01 07/28/22 09:29 07/28/22 09:29 07/28/22 08:09 07/28/22 08:09 07/28/22 05:26 Room Air 07/28/22 03:30 Room Air 07/28/22 02:23 Room Air PG Care Time/CCT Total # of Minutes Spent Total Time Spent with Patient: Total time spent is greater than 50% in coordination of care (as documented) at patient's floor/unit and/or counseling patient: Coding Level of Care Code 20914 INT INP/OBS CARE 3/75MIN Diagnoses Rectal bleeding K62.5
[2022-07-28 12:17] LABS: Hematocrit (blood only) 30.3 % (34.1-44.9); Hemoglobin 9.6 g/dl (12.0-16.0)
[2022-07-28] MEDS: CHOLECALCIFEROL 1,000 UNITS 25 MCG TAB PO SCH (13:06)
[2022-07-28] MEDS: SPIRONOLACTONE 25 MG TAB PO SCH (13:06)
[2022-07-28] MEDS: FUROSEMIDE 40 MG TAB PO SCH ×2 (13:06→15:56)
[2022-07-28] MEDS: MULTIVITAMIN TAB PO SCH (13:07)
[2022-07-28] MEDS: lisinopril 10 MG TAB PO SCH (13:07)
[2022-07-28] MEDS: LEVOTHYROXINE SODIUM 50 MCG TABLET PO SCH (13:07)
[2022-07-28] MEDS: INSULIN ASPART PER UNIT SC SCH ×3 (13:33→21:22)
[2022-07-28] MEDS: PANTOprazole 40 MG in DEXTROSE 5% 100 ML IV SCH ×3 (13:44→23:50)
[2022-07-28] MEDS: ACETAMINOPHEN 325 MG TAB PO PRN (17:01)
[2022-07-28 18:10] LABS: Hematocrit (blood only) 28.8 % (34.1-44.9); Hemoglobin 9.3 g/dl (12.0-16.0)
[2022-07-28] MEDS: ATORVASTATIN 10 MG TAB PO SCH (21:23)
[2022-07-29] MEDS: ACETAMINOPHEN 325 MG TAB PO PRN ×2 (00:24→17:31)
[2022-07-29 00:45] LABS: Hematocrit (blood only) 27.5 % (34.1-44.9); Hemoglobin 8.8 g/dl (12.0-16.0)
[2022-07-29] MEDS: PANTOprazole 40 MG in DEXTROSE 5% 100 ML IV SCH ×2 (04:56→10:03)
--- NOTE | 2022-07-29 05:08 | Electrocardiogram Report ---
Test Reason : Blood Pressure : / mmHG Vent. Rate : 071 BPM Atrial Rate : 071 BPM P-R Int : 138 ms QRS Dur : 134 ms QT Int : 454 ms P-R-T Axes : 052 -42 021 degrees QTc Int : 493 ms Poor data quality, interpretation may be adversely affected Normal sinus rhythm Left axis deviation Right bundle branch block Abnormal ECG When compared with ECG of 03-MAR-2022 15:23, No significant change was found Confirmed by Elder Rodriguez ([id number]) on 07/29/2022 5:08:20 AM Referred By: REFERRED SELF Confirmed By:Elder Rodriguez
[2022-07-29] MEDS: FUROSEMIDE 40 MG TAB PO SCH (06:13)
[2022-07-29] MEDS: LEVOTHYROXINE SODIUM 50 MCG TABLET PO SCH (06:13)
[2022-07-29] MEDS: SPIRONOLACTONE 25 MG TAB PO SCH (08:19)
[2022-07-29] MEDS: MULTIVITAMIN TAB PO SCH (08:19)
[2022-07-29] MEDS: CHOLECALCIFEROL 1,000 UNITS 25 MCG TAB PO SCH (08:19)
[2022-07-29] MEDS: lisinopril 10 MG TAB PO SCH (08:19)
[2022-07-29] MEDS: INSULIN ASPART PER UNIT SC SCH ×4 (08:47→21:25)
--- NOTE | 2022-07-29 10:16 | History & Physical Bridge Note ---
Date of Service July 29, 2022 History & Physical Bridge Note I have examined the patient, reviewed the History & Physical and in the interval since the performance of the History & Physical I have noted the following changes of clinical significance: no changes noted Patient's H/H dropped to 8.8/27.5. She did begin to have overt bleeding again with bright red liquid blood per rectum. Given her history of esophageal varices, would proceed with EGD today. If unremarkable, would have high suspicion for possible diverticular bleed. Patient had been receiving clear liquids until this morning. She has not been eating solid food. Continue IV PPI therapy at present. Further recommendations pending EGD. Patient agreeable to this plan of care.
--- NOTE | 2022-07-29 12:16 | Hospitalist Progress Note ---
Date of Service July 29, 2022 Assessment & Plan (1) jail current use of anticoagulant therapy: Plan: She takes Eliquis chronically for her history of lower extremity DVT. IVC filter is in place. Eliquis is currently on hold (2) Rectal bleeding: Plan: Appreciate GI consultation. She had hematochezic stool this morning. EGD planned for later today. She may need colonoscopy this admission. Protonix drip switched to intravenous twice daily dosing (3) Acute blood loss anemia: Plan: Hemoglobin is down to 8.8 this morning. Will follow. Transfuse as necessary to keep hemoglobin greater than 8.0. (4) Hypertension: Plan: Stable with current medical management (5) Chronic deep vein thrombosis (DVT): Plan: IVC filter is in place. Eliquis is currently on hold Plan To be determined Admission and Anticipated Discharge Date Admission Date: July 28, 2022 Subjective Alert and oriented. She had a bowel movement earlier today that was consistent with hematochezia per patient and aide. No syncope or lightheadedness. Clinically she has congestive heart failure. Last cardiac echo was nearly 1 year ago which revealed preserved ejection fraction. Intravenous Lasix will be administered and echo repeated. She opts for Lynn catheter placement at this time. Hemoglobin has drifted down to 8.8 and will be followed. Protonix drip switched to twice daily intravenous dosing for now. Gastroenterology cons ultation noted. EGD later today. She was on clear liquid diet but NPO now pending EGD Review of Systems Review of Systems: Constitutional-no fever or chills ENT-no blurred vision, no double vision, no epistaxis, no sore throat Respiratory-no cough, no wheezing, no shortness of breath Cardiac-no palpitations, no chest pain, no syncope GI-no nausea, vomiting, diarrhea, melena, hematochezia -no urinary retention, no urinary incontinence, no dysuria, no hematuria Musculoskeletal-no joint pain, no muscle tenderness Skin-no bruising, no rashes, no pruritus Neuro-no isolated weakness, no paresthesia, no weakness Psych-no depression, no anxiety Physical Exam Physical Exam: General-alert and oriented x3, no fevers, no chills HEENT-head atraumatic and normocephalic, pupils equal and reactive to light, extraocular muscles intact Neck-no lymphadenopathy or thyromegaly, trachea midline Chest-bibasilar inspiratory rales. No rhonchi or wheezing Cardiac-regular rate and rhythm, normal S1 and S2 Abdomen-normal bowel sounds, nontender, no hepatosplenomegaly Zmymcmdoaxb-1-8+ pitting edema bilateral lower extremities below the knees Neuro-cranial nerves II through XII intact, motor and sensory function within normal limits, strength symmetrical , no focal deficits Psych-normal affect, normal mood Results & Data Results & Data ([facility]) Vital Signs (Past 12 Hours) Vital Signs Temp Pulse Resp BP BP Pulse Ox O2 Del Method 07/29/22 11:49 36.5 C 77 17 159/84 H 95 Room Air 07/29/22 08:15 Room Air 07/29/22 08:00 36.4 C L 63 18 144/77 H 97 Room Air 07/29/22 08:18 144/77 H Laboratory Results 07/29/22 00:19 07/28/22 04:49 PG Care Time/CCT Total # of Minutes Spent Total Time Spent with Patient: Total time spent is greater than 50% in coordination of care (as documented) at patient's floor/unit and/or counseling patient: Coding Level of Care Code 88722 SUB INP/OBS CARE 3/50MIN 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
[2022-07-29] MEDS ORDERED: PERFLUTREN LIPID MICROSPHERE (DEFINITY) IV ONE (13:57)
[2022-07-29] MEDS: FUROSEMIDE 40 MG/4 ML VIAL IV SCH ×2 (14:18→23:51)
[2022-07-29 15:07] LABS: Hematocrit (blood only) 29.1 % (34.1-44.9); Hemoglobin 9.3 g/dl (12.0-16.0)
[2022-07-29] MEDS ORDERED: PROPOFOL IV EMULSION 10 MG/ML 20 ML VIAL IV ONE (15:07)
[2022-07-29] MEDS ORDERED: LIDOCAINE 2% MPF LOCAL 5 ML VIAL INFIL ONE (15:07)
--- NOTE | 2022-07-29 15:09 | Anesthesiology Consultation ---
Date of Service July 29, 2022 Assessment & Plan Chart Review Chart Review: Acceptable Risk for Surgery and Patient NOT seen in Pre Admission Testing Consults Requested none History Surgery Operation Date: 07/29/22 16:15 Proposed Procedures p Esophagogastroduodenoscopy Dr. Gregory - Mat Gregory MD Height/Weight Height: 5 ft 1 in Weight: 123.7 kg Allergies Allergy/AdvReac Type Severity Reaction Status Date / Time No Known Allergies Allergy Verified 07/26/22 11:10 Medications Home Medications Medication Instructions Recorded Confirmed Last Taken cholecalciferol (vitamin D3) 50 2,000 unit PO QAM 07/01/18 07/26/22 10/02/21 mcg (2,000 unit) capsule (Vitamin D3) docusate sodium 100 mg capsule 100 mg PO BID PRN Constipation 07/01/18 07/26/22 Unknown multivitamin 1 tab PO QAM 10/14/19 07/26/22 10/02/21 vitamin E 268 mg (400 unit) capsule 400 unit PO QAM 08/14/20 07/26/22 10/02/21 atorvastatin 10 mg tablet 10 mg PO HS #90 tabs 08/12/21 07/26/22 10/02/21 glimepiride 1 mg tablet 1 mg PO BID #180 tabs 08/12/21 07/26/22 10/02/21 coenzyme Q10 200 mg capsule 200 mg PO DAILY 11/01/21 07/26/22 Unknown acetaminophen 325 mg tablet 650 mg PO Q4H PRN fever or pain 03/23/22 07/26/22 Unknown #30 tabs famotidine 20 mg tablet 20 mg PO BID PRN Heartburn 04/05/22 07/26/22 Unknown polyethylene glycol 3350 17 gram 17 g PO DAILY PRN Constipation 04/05/22 07/26/22 Unknown oral powder packet (Miralax) levothyroxine 50 mcg tablet 50 mcg PO DAILY #90 tabs 04/12/22 07/26/22 Unknown lisinopril 10 mg tablet 10 mg PO DAILY 04/25/22 07/26/22 Unknown metformin 500 mg tablet 500 mg PO DAILY 04/25/22 07/26/22 Unknown apixaban 2.5 mg tablet (Eliquis) 2.5 mg PO BID #60 tabs 07/11/22 07/26/22 Unknown sodium chloride 1 gram tablet 1,000 mg PO DAILY #90 tabs 07/11/22 07/26/22 Unknown furosemide 40 mg tablet 40 mg PO BID #180 tabs 07/20/22 07/26/22 Unknown nystatin 100,000 unit/gram topical 1 applic topical TID PRN rash #60 07/20/22 07/26/22 Unknown powder grams spironolactone 25 mg tablet 25 mg PO DAILY #30 tabs 07/20/22 07/26/22 Unknown magnesium chloride 64 mg 128 mg PO TID #540 tabs 07/27/22 Unknown (magnesium chloride) tablet,delayed release Active Medications Generic Name Dose Route Start Last Admin Trade Name Freq PRN Reason Stop Dose Admin Acetaminophen 650 mg 07/28/22 11:17 07/29/22 00:24 Acetaminophen 325 Mg Tab PO 08/27/22 11:16 650 mg Q4H PRN Administration fever or pain Atorvastatin Calcium 10 mg 07/28/22 21:00 07/28/22 21:23 Atorvastatin 10 Mg Tab PO 08/27/22 20:59 10 mg HS ARMANDO Administration Furosemide 40 mg 07/29/22 12:15 07/29/22 14:18 Furosemide 40 Mg/4 Ml Vial IV 08/28/22 12:14 40 mg Q12H ARMANDO Administration Insulin Aspart 0 units 07/28/22 11:30 07/29/22 12:41 Insulin Aspart Per Unit SC 08/27/22 11:29 Not Given ACHS ARMANDO Levothyroxine Sodium 50 mcg 07/28/22 11:30 07/29/22 06:13 Levothyroxine Sodium 50 Mcg Tablet PO 08/27/22 11:29 50 mcg DAILYBB ARMANDO Administration Lisinopril 10 mg 07/28/22 11:30 07/29/22 08:19 Lisinopril 10 Mg Tab PO 08/27/22 11:29 10 mg DAILY ARMANDO Administration Multivitamins 1 tab 07/28/22 11:30 07/29/22 08:19 Multivitamin Tab PO 08/27/22 11:29 1 tab QAM ARMANDO Administration Spironolactone 25 mg 07/28/22 11:17 07/29/22 08:19 Spironolactone 25 Mg Tab PO 08/27/22 11:16 25 mg DAILY ARMANDO Administration Vitamin D 2,000 units 07/28/22 11:30 07/29/22 08:19 Cholecalciferol 1,000 Units 25 Mcg Tab PO 08/27/22 11:29 2,000 units QAM ARMANDO Administration NPO Date Last Intake of Fluids: 07/29/22 Time Last Intake of Fluids: 12:30 Date Last Intake of Solids: 07/27/22 Past Medical History Medical History Acute DVT (deep venous thrombosis) 2019> no known cause > Filter to right groin 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 Chronic back pain Chronic deep vein thrombosis (DVT) 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 Diverticular hemorrhage resolved Esophageal varices determined by endoscopy Fever GERD (gastroesophageal reflux disease) GI bleed none at present Hyperlipemia Hyponatremia Lower leg edema Migraine Monoclonal gammopathy Obesity Osteoarthritis Proteinuria Pulmonary embolism 2019 > no known cause > Filter to right groin Thrombocytopenia Vertigo Past Family History Family History Mother Family history of diabetes mellitus Brother Family history of diabetes mellitus 3 brothers Colorectal cancer Myocardial infarction x 2 Father Myocardial infarction Denies family history of Ovarian cancer Prostate cancer Breast cancer Past Surgical History Surgical History History of bilateral breast reduction surgery History of bilateral cataract extraction History of carpal tunnel release of both wrists History of section x3 History of colonoscopy History of dilatation and curettage History of esophagogastroduodenoscopy (EGD) History of laparoscopic cholecystectomy History of lumbar spinal fusion hardware in place History of tonsillectomy History of tooth extraction all teeth History of total left knee replacement (TKR) History of total right knee replacement (TKR) Social History Smoking Status: Former smoker tobacco type: cigarettes Smoking cigarettes per day: 1 Pack Hx Alcohol Use: No Alcohol type: other alcohol intake frequency: holidays/special occasions only Hx Substance Use: No substance use type: does not use Physical Exam Vital Signs Last Vital Signs Temp 97.9 F 07/29/22 14:57 Pulse 62 07/29/22 14:57 Resp 20 07/29/22 14:57 BP 177/77 H 07/29/22 14:57 Pulse Ox 95 07/29/22 14:57 O2 Del Method 07/29/22 14:57 Testing Laboratory Results 07/28/22 04:49 PT 13.1 Seconds (9.0-12.0) H 07/28/22 04:49 INR 1.2 (0.9-1.1) H 07/28/22 04:49 Blood Type A Negative 07/28/22 04:00 Antibody Screen NEGATIVE 07/28/22 04:00 07/29/22 07/29/22 12:20 08:14 POC Glucose 96 81 Electrocardiogram Date: 07/28/22 Findings: + NSR @ and + RBBB
[2022-07-29] MEDS ORDERED: KETAMINE 50 MG/5 ML SYRINGE ONE (15:19)
--- NOTE | 2022-07-29 15:41 | GI REPORT ---
Patient Name: Rosalind Dudley Procedure Date: 07/29/2022 3:06 PM Date of : 1945 Admit Type: Inpatient Age: 76 Gender: Female Attending MD: Mat Gregory MD, Procedure: Upper GI endoscopy Providers: Mat Gregory MD Referring MD: Referred Self Indications: Hematochezia Medicines: Monitored Anesthesia Care Complications: No immediate complications. Estimated blood loss: None. Estimated Blood Loss: Estimated blood loss: none. Procedure: Pre-Anesthesia Assessment: - Prior Anticoagulants: The patient has taken no anticoagulant or antiplatelet agents. - ASA Grade Assessment: II - A patient with mild systemic disease. After obtaining informed consent, the endoscope was passed under direct vision. Throughout the procedure, the patient's blood pressure, pulse, and oxygen saturations were monitored continuously. The Endoscope was introduced through the mouth, and advanced to the second part of duodenum. The upper GI endoscopy was accomplished without difficulty. The patient tolerated the procedure well. Findings: The examined esophagus was normal. The entire examined stomach was normal. The duodenal bulb and second portion of the duodenum were normal. No evidence of varices, ulcers, blood. Impression: - Normal esophagus. - Normal stomach. - Normal duodenal bulb and second portion of the duodenum. - No specimens collected. Recommendation: - [facility]. - Clear liquid diet today. -obtain bleeding scan, if positive then would transfer to tertiary care center for IR angiography -will consider outpatient colonoscopy Mat Gregory MD 07/29/2022 3:41:02 PM This report has been signed electronically. Note Initiated On: 07/29/2022 3:06 PM Number of Addenda: 0 I attest to the content of the Intraoperative Record and orders documented therein, exceptions below {[id number]}
--- NOTE | 2022-07-29 15:53 | Anesthesiology Progress Note ---
Date of Service July 29, 2022 Anesthesia Post Procedure Vital Signs Vital Signs: Temp Pulse Pulse Resp BP BP Pulse Ox 07/29/22 15:51 67 16 172/79 H 95 07/29/22 15:36 69 16 161/70 H 96 07/29/22 14:57 97.9 F 62 62 20 177/77 H 95 07/29/22 11:49 97.7 F 77 17 159/84 H 95 07/29/22 08:15 07/29/22 08:00 97.5 F L 63 18 144/77 H 97 07/29/22 08:18 144/77 H 07/28/22 19:45 97.7 F 74 18 149/77 H 97 07/28/22 19:55 O2 Del Method 07/29/22 15:51 Room Air 07/29/22 15:36 Room Air 07/29/22 14:57 Room Air 07/29/22 11:49 Room Air 07/29/22 08:15 Room Air 07/29/22 08:00 Room Air 07/29/22 08:18 07/28/22 19:45 Room Air 07/28/22 19:55 Room Air Transfer of Care Handoff Completed per policy Notes Mental Status: alert / awake / arousable and participated in evaluation Patient Amnestic to Procedure: Yes Nausea / Vomiting: adequately controlled Pain: adequately controlled Airway Patency, RR, SpO2: stable & adequate BP & HR: stable & adequate Hydration State: stable & adequate Anesthetic Complications: no major complications apparent and Pt Satisfied with anesthetic care
--- NOTE | 2022-07-29 16:35 | XCELERA ---
[id number]
[2022-07-29] MEDS: ATORVASTATIN 10 MG TAB PO SCH (21:26)
[2022-07-29] MEDS: PANTOprazole 40 MG in SYRINGE 0 ML IV SCH (21:26)
[2022-07-30] MEDS: ACETAMINOPHEN 325 MG TAB PO PRN ×2 (02:36→07:45)
[2022-07-30] MEDS: LEVOTHYROXINE SODIUM 50 MCG TABLET PO SCH (05:27)
[2022-07-30 06:24] LABS: BUN Creatinine Ratio 24.5 (10-20); Calcium 7.8 mg/dl (8.5-10.1); Est GFR (African American) 40.6 ml/min; Potassium 3.9 mmol/L (3.5-5.1)
[2022-07-30 07:04] LABS: Hematocrit (blood only) 26.5 % (34.1-44.9); Hemoglobin 8.4 g/dl (12.0-16.0); Mean Corpuscular Hemoglobin 27.9 pg (25.0-34.0); Mean Corpuscular Hgb Conc 31.7 g/dL (32.0-36.0); Mean Platelet Volume 11.1 fL (9.4-12.3); Platelet Count 69 K/uL (130-400); RDW Coefficient of Variation 15.9 % (11.5-14.5); RDW Standard Deviation 50.6 fL (36.4-46.3); Red Blood Count 3.01 M/uL (3.93-5.22); White Blood Count 1.56 K/ul (4.8-10.8)
[2022-07-30] MEDS: CHOLECALCIFEROL 1,000 UNITS 25 MCG TAB PO SCH (07:46)
[2022-07-30] MEDS: SPIRONOLACTONE 25 MG TAB PO SCH (07:46)
[2022-07-30] MEDS: lisinopril 10 MG TAB PO SCH (07:46)
[2022-07-30] MEDS: PANTOprazole 40 MG in SYRINGE 0 ML IV SCH ×2 (07:46→21:39)
[2022-07-30] MEDS: MULTIVITAMIN TAB PO SCH (07:47)
[2022-07-30 07:49] LABS: Basophils # (auto) 0.01 K/uL (0-0.2); Basophils % (auto) 0.6 %; Eosinophils # (auto) 0.04 K/uL (0-0.50); Eosinophils % (auto) 2.6 %; Lymphocytes # (auto) 0.72 K/uL (1.2-3.4); Lymphocytes % (auto) 46.2 %; Monocytes # (auto) 0.24 K/uL (0.24-0.82); Monocytes % (auto) 15.4 %; Neutrophils # (auto) 0.55 K/uL (1.4-6.5); Neutrophils % (auto) 35.2 %
[2022-07-30] MEDS: INSULIN ASPART PER UNIT SC SCH ×4 (09:33→21:35)
[2022-07-30] MEDS: FUROSEMIDE 40 MG/4 ML VIAL IV SCH (12:17)
[2022-07-30] MEDS: NYSTATIN POWDER 15GM BTL EXT PRN (15:55)
[2022-07-30] MEDS: ATORVASTATIN 10 MG TAB PO SCH (21:39)
[2022-07-30] MEDS ORDERED: ALBUT/IPRATROP 3MG/0.5MG NEB 3 ML VIAL NEB PRN (23:28)
[2022-07-30 23:29] LABS: Influenza A virus by PCR Negative (Neg); Influenza B virus by PCR Negative (Neg); RSV by PCR Negative (Neg); SARS CoV2 RNA(COVID-19) Ceph NEGATIVE (Negative)
--- NOTE | 2022-07-30 23:40 | Hospitalist Progress Note ---
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 IVC filter is in place. Eliquis is currently on hold (2) Rectal bleeding: Plan: Appreciate GI consultation. She had hematochezic stool this morning. EGD planned for later today. She may need colonoscopy this admission. Protonix drip switched to intravenous twice daily dosing Patient has underlying leukopenia Will check for viral pathogens (3) Acute blood loss anemia: Plan: Hemoglobin is down to 8.8 this morning. Will follow. Transfuse as necessary to keep hemoglobin greater than 8.0. (4) Hypertension: Plan: Stable with current medical management (5) Chronic deep vein thrombosis (DVT): Plan: IVC filter is in place. Eliquis is currently on hold Plan To be determined Admission and Anticipated Discharge Date Admission Date: July 28, 2022 Subjective Patient reports some nasal congestion Otherwise denies any chest pain or shortness of breath No further acute GI bleed Physical Exam Physical Exam: Head and ENT no thyroid enlargement trachea midline Cardiovascular S1-S2 are normal no S3 Lungs bilateral air entry fair no wheezing Abdomen soft nondistended positive bowel sounds no rebound tenderness Extremity shows trace edema Neurologically no focal deficits Skin shows no rash no cyanosis Results & Data Results & Data ([facility]) Vital Signs (Past 12 Hours) Vital Signs Temp Pulse Resp BP BP Pulse Ox O2 Del Method 07/30/22 19:22 Room Air 07/30/22 22:34 36.6 C 65 17 132/73 95 Room Air 07/30/22 14:32 36.6 C 65 16 162/82 H 95 Room Air Laboratory Results Short CBC 07/30/22 Range/Units 05:24 WBC 1.56 L (4.8-10.8) K/ul Hgb 8.4 L (12.0-16.0) g/dl Hct 26.5 L (34.1-44.9) % Plt Count 69 L (130-400) K/uL BMP 07/30/22 05:24 Sodium 137 Potassium 3.9 Chloride 100 Carbon Dioxide 33 H BUN 35 H Creatinine 1.43 H Glucose 73 Calcium 7.8 L PG Care Time/CCT Total # of Minutes Spent Total Time Spent with Patient: Total time spent is greater than 50% in coordination of care (as documented) at patient's floor/unit and/or counseling patient: Coding Level of Care Code 15512 SUB INP/OBS CARE 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
[2022-07-31] MEDS: FUROSEMIDE 40 MG/4 ML VIAL IV SCH ×3 (00:08→23:31)
[2022-07-31 00:57] LABS: Adenovirus PCR Not Detected (NotDetected); Bordetella parapertussis PCR Not Detected (NotDetected); Bordetella pertussis PCR Not Detected (NotDetected); Chlamydia pneumoniae PCR Not Detected (NotDetected); Coronavirus 229E PCR Not Detected (NotDetected); Coronavirus CoV-2 (COVID19)PCR Not Detected (NotDetected); Coronavirus HKU1 PCR Not Detected (NotDetected); Coronavirus NL63 PCR Not Detected (NotDetected); Coronavirus OC43PCR Not Detected (NotDetected); Human Metapneumovirus PCR Not Detected (NotDetected); Influenza A PCR Not Detected (NotDetected); Influenza B PCR Not Detected (NotDetected); Mycoplasma pneumoniae PCR Not Detected (NotDetected); Parainfluenza Virus 1 PCR Not Detected (NotDetected); Parainfluenza Virus 2 PCR Not Detected (NotDetected); Parainfluenza Virus 3 PCR Not Detected (NotDetected); Parainfluenza Virus 4 PCR Not Detected (NotDetected); Respiratory Syncytial VirusPCR Not Detected (NotDetected); Rhinovirus/Enterovirus PCR Not Detected (NotDetected)
[2022-07-31] MEDS: LEVOTHYROXINE SODIUM 50 MCG TABLET PO SCH (05:52)
[2022-07-31 07:39] LABS: BUN Creatinine Ratio 22.3 (10-20); Calcium 7.6 mg/dl (8.5-10.1); Creatinine Clr Calc Pharmacy 38.7 ml/min; Est GFR (African American) 38.9 ml/min; Est GFR (Non-African American) 33.6 ml/min; Potassium 3.7 mmol/L (3.5-5.1)
[2022-07-31 07:52] LABS: Hematocrit (blood only) 27.6 % (34.1-44.9); Hemoglobin 8.9 g/dl (12.0-16.0); Mean Corpuscular Hemoglobin 27.9 pg (25.0-34.0); Mean Corpuscular Hgb Conc 32.2 g/dL (32.0-36.0); Mean Corpuscular Volume 86.5 fL (80.0-100.0); Mean Platelet Volume 10.4 fL (9.4-12.3); Platelet Count 71 K/uL (130-400); RDW Coefficient of Variation 15.6 % (11.5-14.5); RDW Standard Deviation 49.3 fL (36.4-46.3); Red Blood Count 3.19 M/uL (3.93-5.22); White Blood Count 1.78 K/ul (4.8-10.8)
[2022-07-31] MEDS: SPIRONOLACTONE 25 MG TAB PO SCH (08:07)
[2022-07-31] MEDS: MULTIVITAMIN TAB PO SCH (08:07)
[2022-07-31] MEDS: CHOLECALCIFEROL 1,000 UNITS 25 MCG TAB PO SCH (08:07)
[2022-07-31] MEDS: lisinopril 10 MG TAB PO SCH (08:07)
[2022-07-31] MEDS: PANTOprazole 40 MG in SYRINGE 0 ML IV SCH ×2 (08:07→20:31)
[2022-07-31 08:12] LABS: Basophils # (auto) 0.01 K/uL (0-0.2); Basophils % (auto) 0.6 %; Eosinophils # (auto) 0.01 K/uL (0-0.50); Eosinophils % (auto) 0.6 %; Lymphocytes # (auto) 0.93 K/uL (1.2-3.4); Lymphocytes % (auto) 52.2 %; Monocytes # (auto) 0.26 K/uL (0.24-0.82); Monocytes % (auto) 14.6 %; Neutrophils # (auto) 0.57 K/uL (1.4-6.5)
[2022-07-31] MEDS: INSULIN ASPART PER UNIT SC SCH ×4 (09:44→22:08)
[2022-07-31] MEDS: ACETAMINOPHEN 325 MG TAB PO PRN (17:37)
--- NOTE | 2022-07-31 19:43 | Hospitalist Progress Note ---
Date of Service July 31, 2022 Assessment & Plan (1) Rectal bleeding: Plan: Appreciate GI consultation. She had hematochezic stool this morning. She may need colonoscopy this admission. Protonix drip switched to intravenous twice daily dosing Patient has underlying leukopenia 07/31-no further acute bleeding noted Will check for viral pathogens as patient has continued symptoms of URI (2) assisted current use of anticoagulant therapy: Plan: She takes Eliquis chronically for her history of lower extremity DVT. IVC filter is in place. Eliquis is currently on hold (3) Acute blood loss anemia: Plan: Hemoglobin is down to 8.8 this morning. Will follow. Transfuse as necessary to keep hemoglobin greater than 8.0. (4) Hypertension: Plan: Stable with current medical management (5) Chronic deep vein thrombosis (DVT): Plan: IVC filter is in place. Eliquis is currently on hold Plan To be determined Admission and Anticipated Discharge Date Admission Date: July 30, 2022 Subjective Patient reports some nasal congestion and reports worsening cough symptoms Otherwise denies any chest pain or shortness of breath No further acute GI bleed Review of Systems Review of Systems: Constitutional-no fever or chills ENT-no blurred vision, no double vision, no epistaxis, no sore throat Respiratory-no cough, no wheezing, no shortness of breath Cardiac-no palpitations, no chest pain, no syncope GI-no nausea, vomiting, diarrhea, melena, hematochezia -no urinary retention, no urinary incontinence, Physical Exam Physical Exam: Head and ENT no thyroid enlargement trachea midline Cardiovascular S1-S2 are normal no S3 Lungs bilateral air entry fair no wheezing Abdomen soft nondistended positive bowel sounds no rebound tenderness Extremity shows trace edema Neurologically no focal deficits Skin shows no rash no cyanosis Results & Data Results & [facility] ([facility]) Vital Signs (Past 12 Hours) Vital Signs Temp Pulse Resp BP Pulse Ox O2 Del Method 07/31/22 15:03 36.3 C L 61 16 155/76 H 97 Room Air 07/31/22 08:15 Room Air PG Care Time/CCT Total # of Minutes Spent Total Time Spent with Patient: Total time spent is greater than 50% in coordination of care (as documented) at patient's floor/unit and/or counseling patient: Coding Level of Care Code 74903 SUB INP/OBS CARE 2/35MIN Diagnoses Rectal bleeding K62.5 assisted current use of anticoagulant therapy Z79.01 Acute blood loss anemia D62 Hypertension I10 Chronic deep vein thrombosis (DVT) I82.509
[2022-07-31] MEDS: ATORVASTATIN 10 MG TAB PO SCH (20:31)
[2022-07-31] MEDS: NYSTATIN POWDER 15GM BTL EXT PRN (20:44)
[2022-08-01] MEDS: ACETAMINOPHEN 325 MG TAB PO PRN (00:43)
[2022-08-01] MEDS: LEVOTHYROXINE SODIUM 50 MCG TABLET PO SCH (05:34)
[2022-08-01 06:35] LABS: Hematocrit (blood only) 28.5 % (34.1-44.9); Hemoglobin 9.4 g/dl (12.0-16.0); Mean Corpuscular Hemoglobin 28.2 pg (25.0-34.0); Mean Corpuscular Volume 85.6 fL (80.0-100.0); Mean Platelet Volume 10.6 fL (9.4-12.3); Platelet Count 89 K/uL (130-400); RDW Coefficient of Variation 15.7 % (11.5-14.5); RDW Standard Deviation 48.9 fL (36.4-46.3); Red Blood Count 3.33 M/uL (3.93-5.22); White Blood Count 2.87 K/ul (4.8-10.8)
[2022-08-01 06:47] LABS: BUN Creatinine Ratio 20.8 (10-20); Calcium 7.5 mg/dl (8.5-10.1); Creatinine Clr Calc Pharmacy 38.4 ml/min; Est GFR (African American) 38.6 ml/min; Est GFR (Non-African American) 33.3 ml/min; Potassium 3.6 mmol/L (3.5-5.1)
[2022-08-01 07:24] LABS: Basophils # (auto) 0.02 K/uL (0-0.2); Basophils % (auto) 0.7 %; Eosinophils # (auto) 0.05 K/uL (0-0.50); Eosinophils % (auto) 1.7 %; Lymphocytes # (auto) 1.77 K/uL (1.2-3.4); Lymphocytes % (auto) 61.7 %; Monocytes # (auto) 0.33 K/uL (0.24-0.82); Monocytes % (auto) 11.5 %; Neutrophils % (auto) 24.4 %
[2022-08-01] MEDS ORDERED: ONDANSETRON INJ 2 MG/ML 2 ML VIAL IV PRN (08:44)
[2022-08-01] MEDS: PANTOprazole 40 MG in SYRINGE 0 ML IV SCH (08:46)
[2022-08-01] MEDS: INSULIN ASPART PER UNIT SC SCH ×2 (08:46→12:07)
[2022-08-01] MEDS: SPIRONOLACTONE 25 MG TAB PO SCH (09:00)
[2022-08-01] MEDS: MULTIVITAMIN TAB PO SCH (09:00)
[2022-08-01] MEDS: lisinopril 10 MG TAB PO SCH (09:00)
[2022-08-01] MEDS: CHOLECALCIFEROL 1,000 UNITS 25 MCG TAB PO SCH (09:00)
--- NOTE | 2022-08-01 10:25 | XRay Report ---
XR chest 1V portable CLINICAL HISTORY: Congestive heart failure. COMPARISON STUDY: Chest CT October 14, 2019 and chest radiograph October 02, 2021. FINDINGS: Cardiomegaly is unchanged. There are trace bilateral pleural effusions. There is pulmonary vascular congestion with possible mild pulmonary edema. There is no consolidation to suggest pneumoni a. No pneumothorax. IMPRESSION: Cardiomegaly with pulmonary vascular congestion and possible mild interstitial pulmonary edema. Trace bilateral pleural effusions. ACT 112: Negative or not required by law. Electronically signed by: Eris Friedman M.D. 08/01/2022 10:24 AM
--- NOTE | 2022-08-01 11:26 | Discharge Summary ---
Date of Service August 01, 2022 Admission HPI Per Admitting Provider Patient is a 76-year-old female with past medical history of hypertension, chronic deep vein thrombosis diagnosed approximately April 2022, monoclonal gammopathy of unknown significance, fatty liver, diabetes, hypercholesterolemia. Who presents to the emergency department after several episodes of painless bright red rectal bleeding when moving bowels. . She had a similar episode several years ago which she was diagnosed with aEsophageal variceal bleed and this concerned her that she felt she needed evaluation. She also has had previous diverticular bleeding that resolved spontaneously. Currently she is chest pain-free, she is chronically short of breath reporting that ambulating to the bathroom and back makes her winded: Again this is unchanged from her baseline. She denies missing medications or taking too many medications. She lives with her son who is able to help her complete her activities of daily living. She would prefer to not be on blood thinners, she reports that she was started on blood thinners for a DVT in the lower extremityand was on a "low dose" Principal Diagnosis Lower GI bleeding, acute blood loss anemia, acute diastolic CHF Discharge Exam General-alert and oriented x3, no fevers, no chills HEENT-head atraumatic and normocephalic, pupils equal and reactive to light, extraocular muscles intact Neck-no lymphadenopathy or thyromegaly, trachea midline Chest-bibasilar inspiratory rales have improved considerably. No rhonchi or wheezing Cardiac-regular rate and rhythm, normal S1 and S2 Abdomen-normal bowel sounds, nontender, no hepatosplenomegaly Extremities-1+ pitting edema bilateral lower extremities below the knees has improved Neuro-cranial nerves II through XII intact, motor and sensory function within normal limits, strength symmetrical , no focal deficits Psych-normal affect, normal mood Discharge Data Allergies Allergy/AdvReac Type Severity Reaction Status Date / Time No Known Allergies Allergy Verified 07/26/22 11:10 Consultations 07/28/22 07:36 ED Decision to Admit Stat 07/28/22 10:02 Consult Gastroenterology Stat Procedures Performed Operation Date: 07/29/22 16:15 Actual Procedures p Esophagogastroduodenoscopy - Mat Gregory MD Ordered Studies 07/28/22 03:43 CT abd pelvis IV con only Urgent 07/28/22 05:16 US venous doppler LE RT Stat Hospital Course (1) Rectal bleeding: Appreciate GI consultation. Hemoglobin is rising. No active bleeding at this time. I suspect she had a diverticular bleed which has resolved. Protonix drip has been switched to twice daily dosing Patient has underlying leukopenia. 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 IVC filter is in place. Eliquis is currently on hold and will be discontinued permanently (3) Acute blood loss anemia: Hemoglobin is now up trending. No further evidence of active GI bleeding. (4) Hypertension: Stable with current medical management (5) Chronic deep vein thrombosis (DVT): IVC filter is in place. Eliquis has been permanently discontinued Plan Discharge to home today, August 01, with home health services Total Time Total Time Spent Total Time Spent (In Minutes): 35 minutes Discharge Plan Discharge Items Patient Disposition: Home - Home Health Services Reason For Visit: GI BLEEDING Discharge Diagnosis: Lower GI bleeding, acute blood loss anemia, acute diastolic CHF Activity: Resume your previous activity Non-emergency contact: Primary Care Provider Call non-emergency contact if: you have any medication questions and your symptoms worsen Follow-up/Referrals: Franko Monk DO [Primary Care Provider] - Diet: Heart Healthy Addtl Attending Provider Instructions: Eliquis has been permanently discontinued. Take Lasix water pill once a day for congestive heart failure Pending Studies at Discharge: No Stand-Alone Forms: [facility], Sm[facility] Cessation Medications and DC Order Prescriptions: New furosemide [Lasix] 40 mg tablet 40 mg PO DAILY Qty: 30 0RF Continued atorvastatin 10 mg tablet 10 mg PO HS Qty: 90 3RF glimepiride 1 mg tablet 1 mg PO BID Qty: 180 3RF acetaminophen 325 mg tablet 650 mg PO Q4H PRN (Reason: fever or pain) Qty: 30 0RF levothyroxine 50 mcg tablet 50 mcg PO DAILY Qty: 90 3RF magnesium chloride 64 mg tablet,delayed release (DR/EC) 128 mg PO TID Qty: 540 3RF lisinopril 10 mg tablet 10 mg PO DAILY nystatin 100,000 unit/gram powder 1 applic topical TID PRN (Reason: rash) Qty: 60 5RF furosemide 40 mg tablet 40 mg PO BID Qty: 180 3RF Rx Instructions: morning and afternoon spironolactone 25 mg tablet 25 mg PO DAILY Qty: 30 5RF coenzyme Q10 200 mg capsule 200 mg PO DAILY sodium chloride 1 gram tablet 1,000 mg PO DAILY Qty: 90 1RF docusate sodium 100 mg Capsule 100 mg PO BID PRN (Reason: Constipation) cholecalciferol (vitamin D3) [Vitamin D3] 2,000 unit Capsule 2,000 unit PO QAM multivitamin Tablet 1 tab PO QAM vitamin E 400 unit capsule 400 unit PO QAM metformin 500 mg tablet 500 mg PO DAILY famotidine 20 mg tablet 20 mg PO BID PRN (Reason: Heartburn) polyethylene glycol 3350 [Miralax] 17 gram powder in packet 17 g PO DAILY PRN (Reason: Constipation) Discontinued Eliquis 2.5 mg tablet 2.5 mg PO BID Qty: 60 2RF Discharge Orders: Discharge Order (Routine); Ordered 08/01/22 Ordered By: George Camacho Admission Data Admit Date/Time: 07/30/22 23:30 Attending Provider: George Camacho Admit Provider: Garfield Morrow Primary Care Provider: Franko Monk Other Providers: Mat Gregory ; Joni Hermosillo Coding Level of Care Code HOSP INP/OBS DISCH >30 MIN Diagnoses Rectal bleeding K62.5 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
[2022-08-01] MEDS: FUROSEMIDE 40 MG/4 ML VIAL IV SCH (12:19)
--- NOTE | 2022-08-01 15:22 | Discharge Summary ---
Date of Service August 01, 2022 Admission HPI Per Admitting Provider Patient is a 76-year-old female with past medical history of hypertension, chronic deep vein thrombosis diagnosed approximately April 2022, monoclonal gammopathy of unknown significance, fatty liver, diabetes, hypercholesterolemia. Who presents to the emergency department after several episodes of painless bright red rectal bleeding when moving bowels. . She had a similar episode several years ago which she was diagnosed with aEsophageal variceal bleed and this concerned her that she felt she needed evaluation. She also has had previous diverticular bleeding that resolved spontaneously. Currently she is chest pain-free, she is chronically short of breath reporting that ambulating to the bathroom and back makes her winded: Again this is unchanged from her baseline. She denies missing medications or taking too many medications. She lives with her son who is able to help her complete her activities of daily living. She would prefer to not be on blood thinners, she reports that she was started on blood thinners for a DVT in the lower extremityand was on a "low dose" Principal Diagnosis Rectal bleeding, acute blood loss anemia, acute diastolic CHF Discharge Data Allergies Allergy/AdvReac Type Severity Reaction Status Date / Time No Known Allergies Allergy Verified 07/26/22 11:10 Consultations 07/28/22 07:36 ED Decision to Admit Stat 07/28/22 10:02 Consult Gastroenterology Stat Procedures Performed Operation Date: 07/29/22 16:15 Actual Procedures p Esophagogastroduodenoscopy - Mat Gregory MD Ordered Studies 07/28/22 03:43 CT abd pelvis IV con only Urgent 07/28/22 05:16 US venous doppler LE RT Stat Total Time Total Time Spent Total Time Spent (In Minutes): 35 minutes Discharge Plan Discharge Items Patient Disposition: Home - Home Health Services Reason For Visit: GI BLEEDING Discharge Diagnosis: Lower GI bleeding, acute blood loss anemia, acute diastolic CHF Activity: Resume your previous activity Non-emergency contact: Primary Care Provider Call non-emergency contact if: you have any medication questions and your symptoms worsen Follow-up/Referrals: Franko Monk DO [Primary Care Provider] - 08/08/22 10:00 am (APPT WITH DR MALIN.) Diet: Heart Healthy Addtl Attending Provider Instructions: Eliquis has been permanently discontinued. Take Lasix water pill once a day for congestive heart failure Pending Studies at Discharge: No Stand-Alone Forms: My [facility], Smoking Cessation Medications and DC Order Prescriptions: New furosemide [Lasix] 40 mg tablet 40 mg PO DAILY Qty: 30 0RF ondansetron 4 mg tablet,disintegrating 4 mg PO Q6H PRN (Reason: nausea and vomiting) Qty: 14 0RF Continued atorvastatin 10 mg tablet 10 mg PO HS Qty: 90 3RF glimepiride 1 mg tablet 1 mg PO BID Qty: 180 3RF acetaminophen 325 mg tablet 650 mg PO Q4H PRN (Reason: fever or pain) Qty: 30 0RF levothyroxine 50 mcg tablet 50 mcg PO DAILY Qty: 90 3RF magnesium chloride 64 mg tablet,delayed release (DR/EC) 128 mg PO TID Qty: 540 3RF lisinopril 10 mg tablet 10 mg PO DAILY nystatin 100,000 unit/gram powder 1 applic topical TID PRN (Reason: rash) Qty: 60 5RF furosemide 40 mg tablet 40 mg PO BID Qty: 180 3RF Rx Instructions: morning and afternoon spironolactone 25 mg tablet 25 mg PO DAILY Qty: 30 5RF coenzyme Q10 200 mg capsule 200 mg PO DAILY sodium chloride 1 gram tablet 1,000 mg PO DAILY Qty: 90 1RF docusate sodium 100 mg Capsule 100 mg PO BID PRN (Reason: Constipation) cholecalciferol (vitamin D3) [Vitamin D3] 2,000 unit Capsule 2,000 unit PO QAM multivitamin Tablet 1 tab PO QAM vitamin E 400 unit capsule 400 unit PO QAM metformin 500 mg tablet 500 mg PO DAILY famotidine 20 mg tablet 20 mg PO BID PRN (Reason: Heartburn) polyethylene glycol 3350 [Miralax] 17 gram powder in packet 17 g PO DAILY PRN (Reason: Constipation) Discontinued Eliquis 2.5 mg tablet 2.5 mg PO BID Qty: 60 2RF Discharge Orders: Discharge Order (Routine); Ordered 08/01/22 Ordered By: George Camacho Admission Data Admit Date/Time: 07/30/22 23:30 Attending Provider: George Camacho Admit Provider: Garfield Morrow Primary Care Provider: Franko Monk Other Providers: Mat Gregory ; Joni Hermosillo Other Interventions: Discharge Summary Assessment (RN) Last Done: 08/01/22 13:19 Coding Level of Care Code HOSP INP/OBS DISCH >30 MIN
== END 2022-08-01 15:34 | disposition home health service (06) | DRG 377 ==
LOC: ED 02:10 → EDINP 02:10 → SUATTDRO 09:38 → EDINP 10:52 → 3E 19:50 → SUATTDRO 07-30 23:30

== ENCOUNTER 2022-08-04 06:37 | Inpatient (IN) ==
[2022-08-04] MEDS ORDERED: ACETAMINOPHEN 1,000 MG/100 ML VIAL IV STA (06:51)
[2022-08-04] MEDS ORDERED: ALBUT/IPRATROP 3MG/0.5MG NEB 3 ML VIAL NEB STA (06:51)
[2022-08-04] MEDS ORDERED: ONDANSETRON INJ 2 MG/ML 2 ML VIAL IV STA (06:51)
--- NOTE | 2022-08-04 06:56 | Emergency Department Note ---
Impression & Plan Weakness, Hypomagnesemia, Wheezing, Cough, Vomiting and diarrhea ED Provider Note NAME: JEFFREY TOVAR AGE: 76 SEX: F : 1945 ARRIVES VIA: Ambulance INFORMANT: [Patient][nursing, EMS] ED PROVIDER(S): [Kenny Medina MD] CHIEF COMPLAINT: Weakness, vomiting and diarrhea HISTORY OF PRESENT ILLNESS: The patient is a 76-year-old female who was discharged from our facility 3 days ago. She was in the hospital for GI bleeding and CHF. At discharge, she was placed on Lasix, this was a new medication. Her Eliquis was discontinued. The patient believes she may have caught a cold while in the hospital, she has been coughing some. In the last 12 hours or so she has developed nausea, vomiting and diarrhea. She feels quite weak and washed out. She had a chill earlier, no fever. She does not feel short of breath, she does not really have any abdominal pain. No blood reported in the vomit or diarrhea. PMHx/PSHx: See Below SOCIAL HISTORY: See Below. PHYSICAL EXAM: GENERAL: Patient is in no acute distress. HEENT: No acute trauma, normocephalic atraumatic, mucous membranes moist, no jim al congestion. NECK: No stridor, no adenopathy, no meningismus, trachea is midline. LUNGS: Diminished breath sounds with some bilateral wheezes, no respiratory distress. HEART: 3/6 systolic murmur, regular rate and rhythm. ABDOMEN: Soft, nontender, bowel sounds positive, no peritonitis. Obese. EXTREMITIES: No cyanosis. Moderate bilateral pedal edema, no extremity deformities. NEUROLOGIC: Oriented x 3, no acute motor or sensory deficits, no focal weakness. SKIN: No rash, no jaundice, no diaphoresis. DIFFERENTIAL DIAGNOSIS: Infection, UTI, dehydration, RSV, COVID-19, influenza, metabolic abnormality, hypo/hyperglycemia, electrolyte disturbance, anemia, hypoxia, cardiac sources, foodborne or viral illness, GI bleeding, as well as other pathologies. EMERGENCY DEPARTMENT COURSE/PROCEDURES: Prior/Outside records reviewed: Recent discharge summary, recent outpatient follow-up visit. ECG per my interpretation: Indication was weakness. The ECG shows a normal sinus rhythm with a rate of 68. There is a right bundle branch block. There is some baseline artifact. There is no ST elevation, no PVCs. The QTC is 506. Compared to an ECG from 28 July 2022, no significant change noted. Continuous Cardiac Monitoring per my interpretation: An order was placed for continuous cardiac monitoring. The monitor shows a rate of 67 with normal sinus rhythm. MEDICAL DECISION MAKING: There is no leukocytosis, in fact, the white count is low which has been her baseline lately. The patient is anemic but she carries a history of anemia. Platelet count was somewhat low, looking back at previous testing, this is baseline for the patient. Creatinine was high at 1.79, this is above her typical baseline and consistent with potential dehydration. There was a low mag nesium at 1.5. Lactic acid level was somewhat elevated 2.1, this could be consistent with dehydration and/or infection. No concerning liver enzyme elevation. The TSH was elevated however, the T4 was normal. ECG showed a normal sinus rhythm with a right bundle branch block. No obvious ST elevation. Troponin was slightly elevated which has been documented in the past. The troponin elevation may be baseline for her versus consistent with mismatch and/or cardiac ischemia. Further troponin testing to establish a baseline will be required. COVID, influenza and RSV testing returned negative. Chest x-ray showed cardiomegaly, no concerning CHF, no pneumonia. The patient received IV Zofran, IV magnesium, IV Tylenol, she was given a DuoNeb. She received a 500 cc saline bolus. The patient is weak, vomiting with diarrhea. She is wheezing with a cough. She was just in the hospital and is not doing well in the outpatient setting. I do think the patient requires a hospital stay. She may even require some rehab or strengthening prior to going back to her home. I did speak with the patient, I talked to case management, the on-call hospitalist was consulted. DISPOSITION: The patient's presentation and findings warrant a hospital stay. 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 Chronic back pain Chronic deep vein thrombosis (DVT) 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 Diverticular hemorrhage resolved Esophageal varices determined by endoscopy Fever GERD (gastroesophageal reflux disease) GI bleed none at present Hyperlipemia Hyponatremia Lower leg edema Migraine Monoclonal gammopathy Obesity Osteoarthritis Proteinuria Pulmonary embolism 2019 > no known cause > Filter to right groin Thrombocytopenia Vertigo Surgical History History of bilateral breast reduction surgery History of bilateral cataract extraction History of carpal tunnel release of both wrists History of section x3 History of colonoscopy History of dilatation and curettage History of esophagogastroduodenoscopy (EGD) History of laparoscopic cholecystectomy History of lumbar spinal fusion hardware in place History of tonsillectomy History of tooth extraction all teeth History of total left knee replacement (TKR) History of total right knee replacement (TKR) Family History Mother Family history of diabetes mellitus Brother Family history of diabetes mellitus 3 brothers Colorectal cancer Myocardial infarction x 2 Father Myocardial infarction Denies family history of Ovarian cancer Prostate cancer Breast cancer Social History Smoking Status: Former smoker Tobacco Type: Cigarettes Age Started Using Tobacco: 15; Age Quit Using Tobacco: 21; Cigarettes Per Day: 1 Pack; Second Hand Exposure: No; Hx Alcohol Use: No Hx Substance Use: No Preferred Language: Arabic Communication Ability: Effective Visual Impairment: Limited Hearing Ability: Normal Network Director Required: No Beliefs That Will Affect Care: None marital status: / Current Living Situation: Foster Care Current Living Situation Comment: Home with son current occupational status: retired How many Children do You have: 3 Feels Safe at Home: Yes Childhood Exposure to Second-Hand Smoke: Yes caffeine: Yes (tea) during the past year weight has: remained stable Dental Care, Regularly: No Physical Activity Frequency: Does not Exercise Seatbelt Use: always Sunscreen Use: No Do you think of yourself as: straight/heterosexual Gender Identity: Female Assistive Devices: None Allergies Allergies Allergy/AdvReac Type Severity Reaction Status Date / Time No Known Allergies Allergy Verified 08/03/22 10:23 Home Meds Home Medications Medication Instructions Recorded Confirmed cholecalciferol (vitamin D3) 50 2,000 unit PO QAM 07/01/18 08/03/22 mcg (2,000 unit) capsule (Vitamin D3) docusate sodium 100 mg capsule 100 mg PO BID PRN Constipation 07/01/18 08/03/22 multivitamin 1 tab PO QAM 10/14/19 08/03/22 vitamin E 268 mg (400 unit) capsule 400 unit PO QAM 08/14/20 08/03/22 coenzyme Q10 200 mg capsule 200 mg PO DAILY 11/01/21 08/03/22 famotidine 20 mg tablet 20 mg PO BID PRN Heartburn 04/05/22 08/03/22 polyethylene glycol 3350 17 gram 17 g PO DAILY PRN Constipation 04/05/22 08/03/22 oral powder packet (Miralax) lisinopril 10 mg tablet 10 mg PO DAILY 04/25/22 08/03/22 metformin 500 mg tablet 500 mg PO DAILY 04/25/22 08/03/22 Previous Rx's Medication Instructions Recorded atorvastatin 10 mg tablet 10 mg PO HS #90 tabs 08/12/21 glimepiride 1 mg tablet 1 mg PO BID #180 tabs 08/12/21 acetaminophen 325 mg tablet 650 mg PO Q4H PRN fever or pain 03/23/22 #30 tabs levothyroxine 50 mcg tablet 50 mcg PO DAILY #90 tabs 04/12/22 sodium chloride 1 gram tablet 1,000 mg PO DAILY #90 tabs 07/11/22 furosemide 40 mg tablet 40 mg PO BID #180 tabs 07/20/22 nystatin 100,000 unit/gram topical 1 applic topical TID PRN rash #60 07/20/22 powder grams spironolactone 25 mg tablet 25 mg PO DAILY #30 tabs 07/20/22 magnesium chloride 64 mg 128 mg PO TID #540 tabs 07/27/22 (magnesium chloride) tablet,delayed release furosemide 40 mg tablet (Lasix) 40 mg PO DAILY #30 tabs 08/01/22 ondansetron 4 mg disintegrating 4 mg PO Q6H PRN nausea and 08/01/22 tablet vomiting #14 tabs Results & Data (ED) Vital Signs Vital Signs - 24 hr 08/04/22 06:41 08/04/22 06:41 08/04/22 07:18 Temperature 36.3 C L Temperature Source Oral Pulse Rate 67 Pulse Rate [Apical] Respiratory Rate 21 Respiratory Effort / Characteristics Non-Labored Non-Labored Respiratory Depth Normal Normal Respiratory Pattern Blood Pressure 189/127 H Blood Pressure [Right Arm] Blood Pressure Mean 147 Blood Pressure Mean [Right Arm] Pulse Oximetry 96 100 Oxygen Delivery Method Room Air Room Air Sepsis Recent Fever Within 48 Hours No Sepsis New/Unexplained Change in Mental Status No Sepsis Action Taken by Nursing No Action Required 08/04/22 09:05 Temperature Temperature Source Pulse Rate Pulse Rate [Apical] 68 Respiratory Rate 18 Respiratory Effort / Characteristics Spontaneous Respiratory Depth Normal Respiratory Pattern Regular Blood Pressure Blood Pressure [Right Arm] 167/83 H Blood Pressure Mean Blood Pressure Mean [Right Arm] 111 Pulse Oximetry 96 Oxygen Delivery Method Room Air Sepsis Recent Fever Within 48 Hours Sepsis New/Unexplained Change in Mental Status Sepsis Action Taken by [facility] Medications Current Medication List: was personally reviewed by me Laboratory Data Attestation: I reviewed the patient's lab results. 08/04/22 06:50 08/04/22 06:50 Lab Results 08/04/22 08/04/22 08/04/22 Range/Units 06:50 06:50 06:50 WBC 2.66 L (4.8-10.8) K/ul RBC 3.55 L (3.93-5.22) M/uL Hgb 10.0 L (12.0-16.0) g/dl Hct 31.0 L (34.1-44.9) % MCV 87.3 (80.0-100.0) fL MCH 28.2 (25.0-34.0) pg MCHC 32.3 (32.0-36.0) g/dL RDW Std Deviation 49.5 H (36.4-46.3) fL RDW Coeff of Leah 15.5 H (11.5-14.5) % Plt Count 94 L (130-400) K/uL MPV 10.8 (9.4-12.3) fL Immature Gran % (Auto) 0.4 % Neut % (Auto) 56.7 % Lymph % (Auto) 34.2 % Forrest % (Auto) 7.5 % Eos % (Auto) 0.8 % Baso % (Auto) 0.4 % Neut # (Auto) 1.51 (1.4-6.5) K/uL Lymph # (Auto) 0.91 L (1.2-3.4) K/uL Forrest # (Auto) 0.20 L (0.24-0.82) K/uL Eos # (Auto) 0.02 (0-0.50) K/uL Baso # (Auto) 0.01 (0-0.2) K/uL Immature Gran # (Auto) 0.01 (0.00-0.02) K/uL Sodium 137 (136-145) mmol/L Potassium 4.3 (3.5-5.1) mmol/L Chloride 99 (98-107) mmol/L Carbon Dioxide 31 (21-32) mmol/L Anion Gap 7 (3-11) BUN 36 H (6-23) mg/dl Creatinine 1.79 H (0.6-1.2) mg/dl Est Cr Clr Drug Dosing 30.0 ml/min Est GFR ( Amer) 30.9 ml/min Est GFR (Non-Af Amer) 26.7 ml/min BUN/Creatinine Ratio 20.1 H (10-20) Glucose 164 H (70-99(Fasting)) mg/dl Lactate (0.4-2.0) mmol/L Calcium 8.0 L (8.5-10.1) mg/dl Magnesium 1.5 L (1.7-2.4) mg/dl Total Bilirubin 0.6 (0.2-1.0) mg/dl AST 47 H (13-39) U/L ALT 22 (7-52) U/L Alkaline Phosphatase 87 (34-104) U/L Troponin I High Sens 21.1 H (0-14) pg/ml Total Protein 7.5 (6.0-8.3) gm/dl Albumin 2.7 L (3.4-5.0) gm/dl Globulin 4.8 H (2.5-4.0) gm/dl Albumin/Globulin Ratio 0.6 L (0.9-2) TSH 7.022 H (0.300-4.500) uIu/ml Free T4 1.16 (0.61-1.60) ng/dl SARS-CoV-2 (PCR) (Negative) Influenza Type A (PCR) (Neg) Influenza Type B (PCR) (Neg) RSV (RT-PCR) (Neg) 08/04/22 08/04/22 Range/Units Unknown Unknown WBC (4.8-10.8) K/ul RBC (3.93-5.22) M/uL Hgb (12.0-16.0) g/dl Hct (34.1-44.9) % MCV (80.0-100.0) fL MCH (25.0-34.0) pg MCHC (32.0-36.0) g/dL RDW Std Deviation (36.4-46.3) fL RDW Coeff of Leah (11.5-14.5) % Plt Count (130-400) K/uL MPV (9.4-12.3) fL Immature Gran % (Auto) % Neut % (Auto) % Lymph % (Auto) % Forrest % (Auto) % Eos % (Auto) % Baso % (Auto) % Neut # (Auto) (1.4-6.5) K/uL Lymph # (Auto) (1.2-3.4) K/uL Forrest # (Auto) (0.24-0.82) K/uL Eos # (Auto) (0-0.50) K/uL Baso # (Auto) (0-0.2) K/uL Immature Gran # (Auto) (0.00-0.02) K/uL Sodium (136-145) mmol/L Potassium (3.5-5.1) mmol/L Chloride (98-107) mmol/L Carbon Dioxide (21-32) mmol/L Anion Gap (3-11) BUN (6-23) mg/dl Creatinine (0.6-1.2) mg/dl Est Cr Clr Drug Dosing ml/min Est GFR ( Amer) ml/min Est GFR (Non-Af Amer) ml/min BUN/Creatinine Ratio (10-20) Glucose (70-99(Fasting)) mg/dl Lactate 2.1 H* (0.4-2.0) mmol/L Calcium (8.5-10.1) mg/dl Magnesium (1.7-2.4) mg/dl Total Bilirubin (0.2-1.0) mg/dl AST (13-39) U/L ALT (7-52) U/L Alkaline Phosphatase (34-104) U/L Troponin I High Sens (0-14) pg/ml Total Protein (6.0-8.3) gm/dl Albumin (3.4-5.0) gm/dl Globulin (2.5-4.0) gm/dl Albumin/Globulin Ratio (0.9-2) TSH (0.300-4.500) uIu/ml Free T4 (0.61-1.60) ng/dl SARS-CoV-2 (PCR) NEGATIVE (Negative) Influenza Type A (PCR) Negative (Neg) Influenza Type B (PCR) Negative (Neg) RSV (RT-PCR) Negative (Neg) Administered Medications Magnesium Sulfate/Dextrose (Magnesium Sulfate / D5w) 1 gm in 100 mls @ 100 mls/hr IV NOW STA Stop: 08/04/22 09:36 Last Admin: 08/04/22 08:54 Dose: 100 mls/hr Documented By: ARS Discontinued Medications Albuterol (Albut/Ipratrop 3mg/0.5mg Neb 3 Ml Vial) 3 ml NEB NOW STA; Protocol Stop: 08/04/22 06:52 Last Admin: 08/04/22 07:07 Dose: 3 ml Documented By: ARS Acetaminophen (Ofirmev) 1,000 mg in 100 mls @ 400 mls/hr IV NOW STA Stop: 08/04/22 07:05 Last Infusion: 08/04/22 07:25 Dose: 0 mls/hr Documented By: Admin: 08/04/22 07:08 Dose: 400 mls/hr Documented By: ARS Ondansetron HCl (Ondansetron Inj 2 Mg/Ml 2 Ml Vial) 4 mg IV NOW STA Stop: 08/04/22 06:52 Last Admin: 08/04/22 07:08 Dose: 4 mg Documented By: ARS Imaging Data Radiologist's Impression: Chest X-Ray 08/04/22 06:51 XR chest 1V portable HISTORY: weakness COMPARISON: Chest 08/01/2022. FINDINGS: No pneumothorax. Cardiomegaly and mild congestive change persist. There are trace bilateral pleural fusions, unchanged. No new focal lung consolidations. IMPRESSION: No change in the cardiomegaly and mild congestive change. ACT 112: Negative or not required by law. Electronically signed by: Derian Kerns M.D. 08/04/2022 7:39 AM Discharge Plan Visit Data Chief Complaint: Illness Stated Complaint: DIZZINESS/WEAKNESS/NAUSEA/VOMIT/DIARRHEA ED Provider: Kenny Medina Discharge Problem: Weakness, Hypomagnesemia, Wheezing, Cough, Vomiting and diarrhea Patient Disposition: Admitted As Inpatient Condition: Fair Forms Stand Alone Forms: My [facility] Prescriptions Prescriptions: No Action atorvastatin 10 mg tablet 10 mg PO HS Qty: 90 3RF glimepiride 1 mg tablet 1 mg PO BID Qty: 180 3RF acetaminophen 325 mg tablet 650 mg PO Q4H PRN (Reason: fever or pain) Qty: 30 0RF levothyroxine 50 mcg tablet 50 mcg PO DAILY Qty: 90 3RF magnesium chloride 64 mg tablet,delayed release (DR/EC) 128 mg PO TID Qty: 540 3RF lisinopril 10 mg tablet 10 mg PO DAILY nystatin 100,000 unit/gram powder 1 applic topical TID PRN (Reason: rash) Qty: 60 5RF furosemide 40 mg tablet 40 mg PO BID Qty: 180 3RF Rx Instructions: morning and afternoon spironolactone 25 mg tablet 25 mg PO DAILY Qty: 30 5RF coenzyme Q10 200 mg capsule 200 mg PO DAILY sodium chloride 1 gram tablet 1,000 mg PO DAILY Qty: 90 1RF docusate sodium 100 mg Capsule 100 mg PO BID PRN (Reason: Constipation) cholecalciferol (vitamin D3) [Vitamin D3] 2,000 unit Capsule 2,000 unit PO QAM multivitamin Tablet 1 tab PO QAM vitamin E 400 unit capsule 400 unit PO QAM metformin 500 mg tablet 500 mg PO DAILY famotidine 20 mg tablet 20 mg PO BID PRN (Reason: Heartburn) polyethylene glycol 3350 [Miralax] 17 gram powder in packet 17 g PO DAILY PRN (Reason: Constipation) furosemide [Lasix] 40 mg tablet 40 mg PO DAILY Qty: 30 0RF ondansetron 4 mg tablet,disintegrating 4 mg PO Q6H PRN (Reason: nausea and vomiting) Qty: 14 0RF Referrals Referrals: Franko Monk DO [Primary Care Provider] -
[2022-08-04 07:20] LABS: Mean Corpuscular Hemoglobin 28.2 pg (25.0-34.0); Mean Corpuscular Hgb Conc 32.3 g/dL (32.0-36.0); Mean Corpuscular Volume 87.3 fL (80.0-100.0); Mean Platelet Volume 10.8 fL (9.4-12.3); Platelet Count 94 K/uL (130-400); RDW Coefficient of Variation 15.5 % (11.5-14.5); RDW Standard Deviation 49.5 fL (36.4-46.3); Red Blood Count 3.55 M/uL (3.93-5.22); White Blood Count 2.66 K/ul (4.8-10.8)
[2022-08-04 07:39] LABS: Basophils # (auto) 0.01 K/uL (0-0.2); Basophils % (auto) 0.4 %; Eosinophils # (auto) 0.02 K/uL (0-0.50); Eosinophils % (auto) 0.8 %; Immature Granulocytes # (auto) 0.01 K/uL (0.00-0.02); Immature Granulocytes % (auto) 0.4 %; Lymphocytes # (auto) 0.91 K/uL (1.2-3.4); Lymphocytes % (auto) 34.2 %; Monocytes % (auto) 7.5 %; Neutrophils # (auto) 1.51 K/uL (1.4-6.5); Neutrophils % (auto) 56.7 %
--- NOTE | 2022-08-04 07:40 | XRay Report ---
XR chest 1V portable HISTORY: weakness COMPARISON: Chest 08/01/2022. FINDINGS: No pneumothorax. Cardiomegaly and mild congestive change persist. There are trace bilateral pleural fusions, unchanged. No new focal lung consolidations. IMPRESSION: No change in the cardiomegaly and mild congestive change. ACT 112: Negative or not required by law. Electronically signed by: Derian Kerns M.D. 08/04/2022 7:39 AM
[2022-08-04 07:43] LABS: Troponin I High Sensitivity 21.1 pg/ml (0-14)
[2022-08-04 08:23] LABS: Thyroid Stimulating Hormone 7.022 uIu/ml (0.300-4.500)
[2022-08-04 08:33] LABS: Albumin Globulin Ratio 0.6 (0.9-2); Albumin Level 2.7 gm/dl (3.4-5.0); BUN Creatinine Ratio 20.1 (10-20); Bilirubin,Total 0.6 mg/dl (0.2-1.0); Est GFR (African American) 30.9 ml/min; Est GFR (Non-African American) 26.7 ml/min; Globulin 4.8 gm/dl (2.5-4.0); Magnesium 1.5 mg/dl (1.7-2.4); Potassium 4.3 mmol/L (3.5-5.1); Total Protein 7.5 gm/dl (6.0-8.3)
[2022-08-04] MEDS ORDERED: MAGNESIUM SULFATE / D5W 1 GM/100 ML BAG IV STA (08:37)
[2022-08-04 08:58] LABS: T4 Free Thyroxine 1.16 ng/dl (0.61-1.60)
[2022-08-04 09:03] LABS: Influenza A virus by PCR Negative (Neg); Influenza B virus by PCR Negative (Neg); RSV by PCR Negative (Neg); SARS CoV2 RNA(COVID-19) Ceph NEGATIVE (Negative)
[2022-08-04] MEDS ORDERED: SODIUM CHLORIDE 0.9% 1000ML 500 ML IV ONE (09:14)
--- NOTE | 2022-08-04 09:14 | Electrocardiogram Report ---
Test Reason : Blood Pressure : / mmHG Vent. Rate : 068 BPM Atrial Rate : 068 BPM P-R Int : 134 ms QRS Dur : 148 ms QT Int : 476 ms P-R-T Axes : 025 -52 029 degrees QTc Int : 506 ms Normal sinus rhythm Right bundle branch block Left anterior fascicular block Abnormal ECG When compared with ECG of 28-JUL-2022 03:50, No significant change was found Confirmed by Hayden Benavides ([id number]) on 08/04/2022 9:13:48 AM Referred By: REFERRED SELF Confirmed By:Hayden Benavides
--- NOTE | 2022-08-04 10:07 | History & Physical Report ---
Date of Service August 04, 2022 Assessment & Plan (1) EMY (acute kidney injury): Plan: -Admit to med/surge -Patient is currently afebrile, hemodynamically stable and stable on RA -Patient's cr noted to be 1.79 today, baseline appears to be close to 1.0 -Patient was started on 40 mg PO lasix daily on top of her daily spironolactone on last discharge due to concerns for diastolic CHF and generalized swelling -She has been experiencing multiple loose bowel movements over the past 24-48 hours and still taking her diuretics, likely causing a pre-renal injury -S/P 500 mL NSS bolus in the ED, will continue with light IV hydration with 1L LR at 80 mL/hr x 1 bag -Hold diuretics for now and monitor daily weights, intake/output, and volume status closely -Monitor renal function and electrolytes on AM CMP -Would consider reducing the dose of lasix or stopping it all together prior to discharge -Will start with BL SCDs for DVT PPX; would hold lovenox at this time with EMY and heparin at this time for chronic thrombocytopenia (2) Lactate blood increase: Plan: -Initial lactate in the ED was 1.8, increased to 2.1 prior to admission -Likely due to dehydration and poor perfusion -Will obtain a repeat lactate on admission and continue with light IV hydration (3) Weakness: Plan: -No focal neuro defects on exam -Likely due to dehydration, chronic illness, and deconditioning from recent admission -Continue to monitor after adequate resuscitation -PT/OT consults placed (4) Elevated troponin I level: Plan: -Initial trop elevated at 21, patient is asymptomatic and no acute ECG changes -Will repeat another trop now and continue to monitor (5) Cough: Plan: -Started on previous admission -Chest xray without consolidation, negative for covid/influenza/rsv -Stable on RA -Supportive therapy for now with pulm hygiene, prn DuoNebs, and prn robitussin (6) Vomiting and diarrhea: Plan: -Multiple episodes of loose bowel movements over the past 48 hours -No known recent abx use -Will get stool studies including c diff toxin prior to starting antidiarrheals (7) Hypomagnesemia: Plan: -Noted to be 1.5 in the ED, S/P 1 gm IV mag in the ED -Will given 2 additional bags and then continue home mag supplement -Monitor am Mag level (8) DVT (deep venous thrombosis): Plan: -Has an IVC filter in place -Eliquis was discontinued on previous admission for GI bleed -BL SCDs for now until renal function improves, would then consider Lovenox (9) Hypertension: Plan: -Hemodynamically stable -Hold lisinopril at this time with EMY, restart when renal function improves -May need to add additional antihypertensive while lisinopril is held if she becomes hypertensive (10) Aortic stenosis: Plan: -Would restart diuretics, possibly at lower doses when renal function improves (11) ROSALES (obstructive sleep apnea): Plan: -Will order Hs CPAP (12) Hypercholesterolemia: Plan: -Continue statin (13) Diabetes mellitus with peripheral vascular disease: Plan: -Hold metformin -Monitor BSG ACHS, goal is 110-140 -DMII diet -Will start with 5 units lantus BID and correction factor of 40 ACHS (14) Liver cirrhosis: Plan: -Stable -Hold spironolactone and lasix for now with EMY (15) GERD (gastroesophageal reflux disease): Plan: -Continue famotidine (16) Monoclonal gammopathy: Plan: -Stable Plan The patient was discussed with Dr. Hopkins at the time of the admission History of Present Illness Chief Complaint: weakness, vomiting, diarrhea Primary Care Provider: DO Rosalind Webster is a 76-year-old female with past medical history of hypertension, chronic deep vein thrombosis diagnosed approximately April 2022, mod-severe aortic stenosis (LVEF of 55-60% as of 07/29/22), monoclonal gammopathy of unknown significance, fatty liver with cirrhosis, diabetes, hypercholesterolemia, ROSALES who presented to the [facility] ED on 08/04/22 from home with complaints of generalized weakness, nausea, and vomiting. In the ED the patient was found to be afebrile, hypertensive at 167/83, and stable on RA. Labs were remarkable for a stable pancytopenia, cr of 1.79 (baseline appears to be approximately 1.0), mag of 1.5, corrected calcium of 9.0, otherwise stable electrolytes, initial lactate of 1.8 which increased to 2.1 prior to admission, AST of 47 (up from 42 as of 08/01/21), initial high sensitivity trop of 21, TSH of 7.022 with free T4 of 1.16, UA in process, and Covid/Influenza/RSV negative. Chest xray was read as "No change in the cardiomegaly and mild congestive change.". Prior to admission the patient was given an albuterol treatment, 1gm IV tylenol, 500 mL NSS bolus, and 4 mg IV zofran. Per chart review, the patient was recently admitted to [facility] ED from 07/28/21- 08/01/21 for lower GI bleed. During her admission she was evaluated by GI and underwent EGD on 07/28/22 which showed a normal esophagus, stomach, duodenal bulb and second portion of the duodenum. There were no signs of varices, bleeding, or ulcers on EGD. Her rectal bleeding was thought to be due to a diverticular bleed. Her eliquis for previous DVT was stopped as she was also noted to have an IVC filter in place. Of note, she was started and discharged on 40 mg PO lasix due to concerned of possible diastolic CHF prior to her echo being obtained. At the time of the exam the patient was lying comfortably in bed in no acute distress. She states that she started to develop nausea, one episode of non- bloody emesis, and at least 3 episodes daily of watery diarrhea approximately 2 days ago. She states that she continued to take the lasix 40 mg PO daily and her spironolactone daily since discharge. She has not had recent fevers or chills, her baseline SOB is stable, she has not had chest pain, she started to develop a slightly productive cough during her last admission, this has continued. She described her sputum as yellow. She has been having the nausea with her one episode of vomiting and has been having lower abdominal discomfort over the past 24-48 hours. She does not think that she has been on antibiotics recently She states that during the beginning of her last admission she was swollen "everywhere". She states that her abdomen was very swollen, since being on the lasix this swelling has improved. She felt as though she was getting dehydrated but wasn't sure how much water she was allowed to drink while on the diuretics. She feels generally weak at this time but denies recent trauma or falls. Since being discharged she had not had further episodes of bloody bowel movements or rectal bleeding. She is currently living with her son at his home. I spoke to her regarding code status, she is a conditional code. She would only want a trial of intubation if needed. She would not want CPR or defibrillation in the event of cardiac arrest. If she could not make decisions for herself she would want her son to make them for her. Please refer to Dr. Leach's attestation for any changes to the treatment plan Allergies Allergy/AdvReac Type Severity Reaction Status Date / Time No Known Allergies Allergy Verified 08/03/22 10:23 Home Medications Medication Instructions Recorded Confirmed Type cholecalciferol (vitamin D3) 50 2,000 unit PO QAM 07/01/18 08/04/22 History mcg (2,000 unit) capsule (Vitamin D3) docusate sodium 100 mg capsule 100 mg PO BID PRN Constipation 07/01/18 08/04/22 History multivitamin 1 tab PO QAM 10/14/19 08/04/22 History vitamin E 268 mg (400 unit) capsule 400 unit PO QAM 08/14/20 08/04/22 History atorvastatin 10 mg tablet 10 mg PO HS #90 tabs 08/12/21 08/04/22 Rx glimepiride 1 mg tablet 1 mg PO BID #180 tabs 08/12/21 08/04/22 Rx coenzyme Q10 200 mg capsule 200 mg PO DAILY 11/01/21 08/04/22 History acetaminophen 325 mg tablet 650 mg PO Q4H PRN fever or pain 03/23/22 08/04/22 Rx #30 tabs famotidine 20 mg tablet 20 mg PO BID PRN Heartburn 04/05/22 08/04/22 History polyethylene glycol 3350 17 gram 17 g PO DAILY PRN Constipation 04/05/22 08/04/22 History oral powder packet (Miralax) levothyroxine 50 mcg tablet 50 mcg PO DAILY #90 tabs 04/12/22 08/04/22 Rx lisinopril 10 mg tablet 10 mg PO DAILY 04/25/22 08/04/22 History metformin 500 mg tablet 500 mg PO DAILY 04/25/22 08/04/22 History sodium chloride 1 gram tablet 1,000 mg PO DAILY #90 tabs 07/11/22 08/04/22 Rx furosemide 40 mg tablet 40 mg PO BID #180 tabs 07/20/22 08/04/22 Rx nystatin 100,000 unit/gram topical 1 applic topical TID PRN rash #60 07/20/22 08/04/22 Rx powder grams spironolactone 25 mg tablet 25 mg PO DAILY #30 tabs 07/20/22 08/04/22 Rx magnesium chloride 64 mg 128 mg PO TID #540 tabs 07/27/22 08/04/22 Rx (magnesium chloride) tablet,delayed release furosemide 40 mg tablet (Lasix) 40 mg PO DAILY #30 tabs 08/01/22 08/04/22 Rx ondansetron 4 mg disintegrating 4 mg PO Q6H PRN nausea and 08/01/22 08/04/22 Rx tablet vomiting #14 tabs Past Med/Surg History Medical History (Updated 08/05/22 @ 10:44 by Fabiola Nuñez PA-C) Acute DVT (deep venous thrombosis) 2019> no known cause > Filter to right groin Anemia 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 Chronic back pain Chronic deep vein thrombosis (DVT) 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 Diverticular hemorrhage resolved DVT (deep venous thrombosis) Esophageal varices determined by endoscopy Fatty liver Fever GERD (gastroesophageal reflux disease) GI bleed none at present Hyperlipemia Hypertension Hyponatremia Liver cirrhosis Lower leg edema Migraine Monoclonal gammopathy Obesity Osteoarthritis Presence of IVC filter Proteinuria Pulmonary embolism 2019 > no known cause > Filter to right groin Thrombocytopenia Vertigo Surgical History History of bilateral breast reduction surgery History of bilateral cataract extraction History of carpal tunnel release of both wrists History of section x3 History of colonoscopy History of dilatation and curettage History of esophagogastroduodenoscopy (EGD) History of laparoscopic cholecystectomy History of lumbar spinal fusion hardware in place History of tonsillectomy History of tooth extraction all teeth History of total left knee replacement (TKR) History of total right knee replacement (TKR) Family History Mother Family history of diabetes mellitus Brother Family history of diabetes mellitus 3 brothers Colorectal cancer Myocardial infarction x 2 Father Myocardial infarction Denies family history of Ovarian cancer Prostate cancer Breast cancer Social History Smoking Status: Unknown if ever smoked Tobacco Type: Cigarettes Age Started Using Tobacco: 15; Age Quit Using Tobacco: 21; Cigarettes Per Day: 1 Pack; Second Hand Exposure: No; Do You Dip or Chew Tobacco: No; Hx Alcohol Use: No Hx Substance Use: No Preferred Language: Georgian Communication Ability: Effective Visual Impairment: Limited Hearing Ability: Normal Document Controller Required: No Beliefs That Will Affect Care: None marital status: / Current Living Situation: Other Current Living Situation Comment: son lives with her current occupational status: retired How many Children do You have: 3 Other Information That Helps Us Care for You: No Feels Safe at Home: Yes Safety Concerns: Feels Safe At This Time Childhood Exposure to Second-Hand Smoke: Yes caffeine: Yes (tea) during the past year weight has: remained stable Dental Care, Regularly: No Physical Activity Frequency: Does not Exercise Seatbelt Use: always Sunscreen Use: No Do you think of yourself as: straight/heterosexual Gender Identity: Female Assistive Devices: Walker Review of Systems Review of Systems: Denies current fever, chills, headache, changes in vision, hearing, taste, and smell, chest pain, hematemesis, melena, dysuria, hematuria, and recent falls. All systems have been reviewed and are otherwise negative. Physical Exam Physical Exam: Physical Exam: General: In no acute distress, stated age, chronically ill-appearing HEENT: Normocephalic, atraumatic, no scleral icterus, pupils around round, symmetrical, and reactive to light, dry mucus membranes, no JVD, trachea midline, no thyromegaly Chest/Pulm: No respiratory distress, symmetrical chest expansion, expiratory wheezing noted throughout Cardiac: RRR, systolic murmur noted Abdomen: Negative for ascites and bruising, normoactive bowel sounds, soft, non-tender to palpation throughout Musculoskeletal: Symmetrical and without signs of acute trauma, upper and lower extremities with full ROM, no atrophy, spasticity, or flaccidity Extremities: Radial, dorsalis pedis, and posterior tibial pulses are intact and symmetrical, +1 edema noted in the BL LE's Skin: Warm, dry, no rashes , lesions, or scars noted Neuro: Alert and oriented to person, place, month, year, and president, no focal defects, CN II-XII tested and intact, finger to nose test negative, no tremors noted Psych: No acute distress, calm and cooperative during the exam Results & Data Results & Data (MN) Vital Signs (Past 12 Hours) Vital Signs Temp Pulse Pulse Resp BP BP Pulse Ox 08/04/22 09:05 68 18 167/83 H 96 08/04/22 07:18 100 08/04/22 06:41 36.3 C L 67 21 189/127 H 96 O2 Del Method 08/04/22 09:05 Room Air 08/04/22 07:18 Room Air 08/04/22 06:41 Room Air Laboratory Results Abnormal lab results 08/04/22 08/04/22 08/04/22 Range/Units 06:50 06:50 06:50 WBC 2.66 L (4.8-10.8) K/ul RBC 3.55 L (3.93-5.22) M/uL Hgb 10.0 L (12.0-16.0) g/dl Hct 31.0 L (34.1-44.9) % RDW Std Deviation 49.5 H (36.4-46.3) fL RDW Coeff of Leah 15.5 H (11.5-14.5) % Plt Count 94 L (130-400) K/uL Lymph # (Auto) 0.91 L (1.2-3.4) K/uL [place] # (Auto) 0.20 L (0.24-0.82) K/uL BUN 36 H (6-23) mg/dl Creatinine 1.79 H (0.6-1.2) mg/dl BUN/Creatinine Ratio 20.1 H (10-20) Glucose 164 H (70-99(Fasting)) mg/dl Lactate (0.4-2.0) mmol/L Calcium 8.0 L (8.5-10.1) mg/dl Magnesium 1.5 L (1.7-2.4) mg/dl AST 47 H (13-39) U/L Troponin I High Sens 21.1 H (0-14) pg/ml Albumin 2.7 L (3.4-5.0) gm/dl Globulin 4.8 H (2.5-4.0) gm/dl Albumin/Globulin Ratio 0.6 L (0.9-2) TSH 7.022 H (0.300-4.500) uIu/ml Urine Protein (Negative) Urine Blood (Negative) Ur Leukocyte Esterase (Negative) U Epithel Cells (Auto) (0-5) /lpf 08/04/22 08/04/22 Range/Units 10:05 Unknown WBC (4.8-10.8) K/ul RBC (3.93-5.22) M/uL Hgb (12.0-16.0) g/dl Hct (34.1-44.9) % RDW Std Deviation (36.4-46.3) fL RDW Coeff of Leah (11.5-14.5) % Plt Count (130-400) K/uL Lymph # (Auto) (1.2-3.4) K/uL [place] # (Auto) (0.24-0.82) K/uL BUN (6-23) mg/dl Creatinine (0.6-1.2) mg/dl BUN/Creatinine Ratio (10-20) Glucose (70-99(Fasting)) mg/dl Lactate 2.1 H* (0.4-2.0) mmol/L Calcium (8.5-10.1) mg/dl Magnesium (1.7-2.4) mg/dl AST (13-39) U/L Troponin I High Sens (0-14) pg/ml Albumin (3.4-5.0) gm/dl Globulin (2.5-4.0) gm/dl Albumin/Globulin Ratio (0.9-2) TSH (0.300-4.500) uIu/ml Urine Protein 2+ H (Negative) Urine Blood Trace H (Negative) Ur Leukocyte Esterase Trace H (Negative) U Epithel Cells (Auto) 20-30 H (0-5) /lpf Diagnostic Findings CT of the abd/pelvis yet to be obtained, will follow up when complete ECG Additional Comments: Normal sinus rhythm Right bundle branch block Left anterior fascicular block Abnormal ECG When compared with ECG of 28-JUL-2022 03:50, No significant change was found Confirmed by Hayden Benavides ([id number]) on 08/04/2022 9:13:48 AM Code Status & VTE Plan Code Status Conditional code; only a trial of intubation, NO CPR or defibrillation VTE Prophylaxis Plan VTE Prophylaxis will be ordered: Yes Supervising Physician Co-Signing Physician Notes I personally saw and examined the patient. I verified all almanazr points and agree with Tristan Gonzalez PA-C with the following exceptions and/or additions: 76 year old re-admission for fatigue, generalized weakness, nausea. She appears generally confused and lethargic on exam. O/E Alert, orientated to person, place and year, HS1+2, no murmurs, Chest CTAB, Abdo distended but non-tender, no guarding or rebound tenderness A/P Fatigue, generalized weakness, nausea - suspect due to intravascular depletion due to recent increase in diuretics leading for worsening renal function. Repeat Cr in AM after gentle IV fluids. No prior ammonia level taken and known liver cirrhosis therefore will take now. PG Care Time/CCT Total # of Minutes Spent Total Time Spent with Patient: Total time spent is greater than 50% in coordination of care (as documented) at patient's floor/unit and/or counseling patient: C[place] [address] INT INP/OBS CARE 3/75MIN Patient Type Established Medical Decision Making High Complexity Diagnoses EMY (acute kidney injury) N17.9 Lactate blood increase R79.89 Weakness R53.1 Elevated troponin I level R77.8 Cough R05.1 Cough type: acute Vomiting and diarrhea R11.10; R19.7 Hypomagnesemia E83.42 DVT (deep venous thrombosis) I82.409 Hypertension I10 Aortic stenosis I35.0 ROSALES (obstructive sleep apnea) G47.33 Hypercholesterolemia E78.00 Diabetes mellitus with peripheral vascular disease E11.51 Liver cirrhosis K74.60 GERD (gastroesophageal reflux disease) K21.9 Monoclonal gammopathy D47.2 (1) Cough Cough type: acute Qualified Code(s): R05.1 - Acute cough
[2022-08-04 10:20] LABS: Appearance Urine Clear (Clear); Bacteria Urine Automated Negative (Negative); Bilirubin Urine Negative (Negative); Blood Urine Trace (Negative); Color Urine Yellow; Epithelial Cell Urine Auto 20-30 /lpf (0-5); Glucose Urine UA Negative (Negative); Ketones Urine Negative (Negative); Leukocyte Esterase Urine Trace (Negative); Nitrite Urine Negative (Negative); Protein Urine 2+ (Negative); RBC Urine Automated 0-4 /hpf (0-4); Specific Gravity Urine 1.013 (1.000-1.030); Urobilinogen Urine Negative (Negative)
[2022-08-04] MEDS ORDERED: LACTATED RINGER'S 1,000 ML IV SCH (11:15)
--- NOTE | 2022-08-04 12:05 | CT Scan Report ---
CT abd pelvis wo con CLINICAL HISTORY: diarrhea, poss colitis or divertic TECHNIQUE: Helical axial images of the abdomen and pelvis were obtained. Automated dose lowering tech niques and/or adjustment according to patient size were utilized for this exam. This exam was perfor med without intravenous contrast. CT DOSE: 984.18 mGycm COMPARISON: Comparison is made to of CT abdomen pelvis 07/28/2022 FINDINGS: Lower chest: Bibasilar atelectasis versus scarring is seen. Liver: Nodular contour of the liver is seen compatible with cirrhosis. Gallbladder and biliary tree: Patient is status post cholecystectomy. No intra- or extrahepatic bilia ry ductal dilation. Pancreas: Unremarkable, no focal lesions. Spleen: Mild splenomegaly is again noted. Adrenals: Unremarkable. Kidneys and ureters: Perinephric stranding is noted bilaterally. Bladder: A dependent air is seen in the bladder. Reproductive organs: Unremarkable. Bowel: Diverticulosis is seen without evidence of diverticulitis. Lymph nodes Retroperitoneal: Unremarkable. Densities in the adis hepatis are seen to correspond to previously no derek varices. Pelvic: Unremarkable. Mesenteric: Unremarkable. Peritoneum: Trace free fluid is seen most prominent about the liver. Vessels: Atherosclerotic calcifications are seen. An IVC filter is seen. Mild variceal formation is s een most prominently about the adis hepatis. Abdominal wall: Body wall edema is noted. An umbilical hernia containing only fat is seen. Bones: Posterior fixation hardware is seen spanning L4-S1. Multilevel degenerative changes are seen. IMPRESSION: 1. No acute abnormalities are seen. In particular there is no evidence of colitis or diverticulitis. 2. Cirrhosis with variceal formation. Minimal ascites is likely related. 3. Body wall edema is again seen. ACT 112: Negative or not required by law. Electronically signed by: Cory Wolff M.D. 08/04/2022 12:04 PM
[2022-08-04] MEDS ORDERED: ACETAMINOPHEN 325 MG TAB ONE (13:05)
[2022-08-04] MEDS ORDERED: GLUCOSE 10 TAB/TUBE PO PRN (14:46)
[2022-08-04] MEDS ORDERED: GLUCOSE 40% GEL 15 GM TUBE PO PRN (14:46)
[2022-08-04] MEDS ORDERED: ACETAMINOPHEN 325 MG TAB PO PRN (14:46)
[2022-08-04] MEDS ORDERED: FAMOTIDINE 20 MG TAB PO PRN (14:46)
[2022-08-04] MEDS ORDERED: DEXTROSE 50% 50 ML SYRINGE IV PRN (14:46)
[2022-08-04] MEDS ORDERED: CARBOHYDRATES FOR HYPOGLYCEMIA PO PRN (14:46)
[2022-08-04] MEDS ORDERED: GLUCAGON FOR INJ 1 MG VIAL SQ PRN (14:46)
[2022-08-04] MEDS: MAGNESIUM SULFATE / D5W 1 GM/100 ML BAG IV SCH ×2 (15:12→17:13)
[2022-08-04] MEDS: INSULIN ASPART PER UNIT SC SCH ×3 (15:13→20:52)
[2022-08-04] MEDS: ALBUT/IPRATROP 3MG/0.5MG NEB 3 ML VIAL NEB SCH ×2 (15:46→19:30)
[2022-08-04] MEDS: MAGNESIUM CHLORIDE W/CALCIUM 64MG DELAYED REL TAB PO SCH ×2 (16:01→20:43)
[2022-08-04] MEDS ORDERED: ONDANSETRON INJ 2 MG/ML 2 ML VIAL IV PRN (20:39)
[2022-08-04] MEDS: ATORVASTATIN 10 MG TAB PO SCH (20:43)
[2022-08-04] MEDS: LANTUS PER UNIT CHARGE SQ SCH (20:52)
[2022-08-04] MEDS: ACETAMINOPHEN 1000 MG/100 ML IV IV SCH (21:21)
[2022-08-05] MEDS: ACETAMINOPHEN 1000 MG/100 ML IV IV SCH ×4 (05:15→22:57)
[2022-08-05] MEDS: ALBUT/IPRATROP 3MG/0.5MG NEB 3 ML VIAL NEB SCH ×4 (07:00→19:05)
--- NOTE | 2022-08-05 07:34 | Hospitalist Progress Note ---
Date of Service August 05, 2022 Assessment & Plan (1) Hepatic encephalopathy: Plan: Repeat NH3 level now and in AM Start Lactulose 20 gm daily (will need to titrate to maintain 2-4 loose BMs daily) (2) Liver cirrhosis: Plan: -Stable -Hold spironolactone and lasix for now with EMY -Hx of esophageal varices, none on most recent EGD 07/29/22 -Follows with [facility], may need a nonselective beta mirta -Low sodium diet (3) EMY (acute kidney injury): Plan: -Patient was started on 40 mg PO lasix daily on top of her daily spironolactone on last discharge due to concerns for diastolic CHF and generalized swelling -Hold diuretics for now and monitor daily weights, intake/output, and volume status closely -Continue to monitor renal function and electrolytes on AM CMP -Would consider reducing the dose of lasix or stopping it all together prior to discharge -Will start with BL SCDs for DVT PPX; would hold lovenox at this time with EMY and heparin at this time for chronic thrombocytopenia, likley due to liver cirrhosis (4) Lactate blood increase: Plan: -Initial lactate in the ED was 1.8, increased to 2.1 prior to admission and now improved to 1.6 -Likely due to dehydration and poor perfusion -Will obtain a repeat lactate on admission and continue with light IV hydration (5) Weakness: Plan: -No focal neuro defects on exam -Likely due to dehydration, chronic illness, and deconditioning from recent admission -Continue to monitor after adequate resuscitation -PT/OT consults placed (6) Elevated troponin I level: Plan: -Initial trop elevated at 21, patient is asymptomatic and no acute ECG changes -Will repeat another trop now and continue to monitor (7) Cough: Plan: -Started on previous admission -Chest xray without consolidation, negative for covid/influenza/rsv -Stable on RA -Supportive therapy for now with pulm hygiene, prn DuoNebs, and prn robitussin (8) Vomiting and diarrhea: Plan: -Multiple episodes of loose bowel movements over the past 48 hours -No known recent abx use -Will get stool studies including c diff toxin prior to starting antidiarrheals (9) Hypomagnesemia: Plan: -Noted to be 1.5 in the ED, S/P 1 gm IV mag in the ED -Had 2 additional bags and then continue home mag supplement -Mag level today improved to 2.1 (10) Hypertension: Plan: -Hemodynamically stable -Hold lisinopril at this time with EMY, restart when renal function improves -May need to add additional antihypertensive while lisinopril is held if she becomes hypertensive (11) Aortic stenosis: Plan: -Would restart diuretics, possibly at lower doses when renal function improves -Possibly restart tomorrow at a lower dose (12) ROSALES (obstructive sleep apnea): Plan: -Will order Hs CPAP (13) Hypercholesterolemia: Plan: -Continue statin (14) Diabetes mellitus with peripheral vascular disease: Plan: -Hold metformin -Monitor BSG ACHS, goal is 110-140 -DMII diet -Will start with 5 units lantus BID and correction factor of 40 ACHS -Held Am dose of Lantus for BS 90 (15) GERD (gastroesophageal reflux disease): Plan: -Continue famotidine (16) Monoclonal gammopathy: Plan: -Stable (17) DVT (deep venous thrombosis): Plan: -Eliquis was discontinued on previous admission for GI bleed -Has an IVC filter in place -BL SCDs for now until renal function improves, would then consider Lovenox (18) Thrombocytopenia: Plan: likely secondary to liver cirrhosis continue to monitor Plan The patient was discussed with Dr. Hopkins at the time of the admission Admission and Anticipated Discharge Date Admission Date: August 04, 2022 Subjective Patient is sitting up in the recliner. She is alert to person and time. She does seem somewhat confused and says she feels shakey and tired. She is falling asleep during my conversation. Review of Systems Review of Systems: complete ROS hard to elicit with patient being lethargic and falling asleep during history taking She admits to fatigue and being weak and shakey She denies any chest pain, any further GI bleeding or nausea or vomiting Physical Exam Constitutional: cooperative, + lethargic and + overweight Eyes: PERRL, conjunctivae normal, anicteric sclerae Respiratory: normal respiratory effort and able to speak in complete sentences; no cough Cardiovascular: Rate/Rhythm: regular rate and regular rhythm Heart Sounds: + murmur Gastrointestinal (Abdomen): normal bowel sounds, soft, nontender, no hepato splenomegaly obese Neurologic: + confused lethargic and falling asleep mild asterixis Psychiatric: Orientation: alert, oriented to person and oriented to time Results & Data Results & Data ([facility]) Vital Signs (Past 12 Hours) Vital Signs Temp Pulse Resp BP Pulse Ox O2 Del Method 08/05/22 07:00 65 16 95 Room Air 08/04/22 22:00 Room Air 08/04/22 21:00 36.4 C 67 18 182/78 H 95 Room Air Laboratory Results Abnormal lab results 08/04/22 08/04/22 08/04/22 Range/Units 18:38 20:03 20:30 WBC (4.8-10.8) K/ul RBC (3.93-5.22) M/uL Hgb (12.0-16.0) g/dl Hct (34.1-44.9) % MCHC (32.0-36.0) g/dL RDW Std Deviation (36.4-46.3) fL RDW Coeff of Leah (11.5-14.5) % Plt Count (130-400) K/uL Platelet Estimate (Normal) Carbon Dioxide (21-32) mmol/L BUN (6-23) mg/dl Creatinine (0.6-1.2) mg/dl BUN/Creatinine Ratio (10-20) POC Glucose 125 H 143 H (70-99) mg/dl Calcium (8.5-10.1) mg/dl Ammonia 168.0 H (18-72) umol/L Troponin I High Sens (0-14) pg/ml Albumin (3.4-5.0) gm/dl Globulin (2.5-4.0) gm/dl Albumin/Globulin Ratio (0.9-2) 08/05/22 08/05/22 08/05/22 Range/Units 09:26 09:26 10:09 WBC 1.99 L (4.8-10.8) K/ul RBC 3.42 L (3.93-5.22) M/uL Hgb 9.5 L (12.0-16.0) g/dl Hct 30.2 L (34.1-44.9) % MCHC 31.5 L (32.0-36.0) g/dL RDW Std Deviation 51.0 H (36.4-46.3) fL RDW Coeff of Leah 15.8 H (11.5-14.5) % Plt Count 75 L (130-400) K/uL Platelet Estimate Decreased L (Normal) Carbon Dioxide 33 H (21-32) mmol/L BUN 29 H (6-23) mg/dl Creatinine 1.38 H D (0.6-1.2) mg/dl BUN/Creatinine Ratio 21.0 H (10-20) POC Glucose (70-99) mg/dl Calcium 8.3 L (8.5-10.1) mg/dl Ammonia 105.0 H (18-72) umol/L Troponin I High Sens (0-14) pg/ml Albumin 2.4 L (3.4-5.0) gm/dl Globulin 4.2 H (2.5-4.0) gm/dl Albumin/Globulin Ratio 0.6 L (0.9-2) 08/05/22 08/05/22 Range/Units 10:09 12:03 WBC (4.8-10.8) K/ul RBC (3.93-5.22) M/uL Hgb (12.0-16.0) g/dl Hct (34.1-44.9) % MCHC (32.0-36.0) g/dL RDW Std Deviation (36.4-46.3) fL RDW Coeff of Leah (11.5-14.5) % Plt Count (130-400) K/uL Platelet Estimate (Normal) Carbon Dioxide (21-32) mmol/L BUN (6-23) mg/dl Creatinine (0.6-1.2) mg/dl BUN/Creatinine Ratio (10-20) POC Glucose 138 H (70-99) mg/dl Calcium (8.5-10.1) mg/dl Ammonia (18-72) umol/L Troponin I High Sens 32.1 H (0-14) pg/ml Albumin (3.4-5.0) gm/dl Globulin (2.5-4.0) gm/dl Albumin/Globulin Ratio (0.9-2) PG Care Time/CCT Total # of Minutes Spent Total Time Spent with Patient: Total time spent is greater than 50% in coordination of care (as documented) at patient's floor/unit and/or counseling patient: Coding Level of Care Code 71916 SUB INP/OBS CARE 2/35MIN Diagnoses Hepatic encephalopathy K76.82 Liver cirrhosis K74.60 Ascites presence: without ascites Hepatic cirrhosis type: unspecified hepatic cirrhosis EMY (acute kidney injury) N17.9 Lactate blood increase R79.89 Weakness R53.1 Elevated troponin I level R77.8 Cough R05.1 Cough type: acute Vomiting and diarrhea R11.10; R19.7 Hypomagnesemia E83.42 Hypertension I10 Aortic stenosis I35.0 ROSALES (obstructive sleep apnea) G47.33 Hypercholesterolemia E78.00 Diabetes mellitus with peripheral vascular disease E11.51 GERD (gastroesophageal reflux disease) K21.9 Monoclonal gammopathy D47.2 DVT (deep venous thrombosis) I82.409 Thrombocytopenia D69.6 (1) Cough Cough type: acute Qualified Code(s): R05.1 - Acute cough (2) Liver cirrhosis Ascites presence: without ascites Hepatic cirrhosis type: unspecified hepatic cirrhosis Qualified Code(s): K74.60 - Unspecified cirrhosis of liver
[2022-08-05] MEDS: INSULIN ASPART PER UNIT SC SCH ×4 (08:25→20:59)
[2022-08-05] MEDS: LEVOTHYROXINE SODIUM 50 MCG TABLET PO SCH (09:49)
[2022-08-05] MEDS: SODIUM CHLORIDE 1 GM TABLET PO SCH (09:49)
[2022-08-05] MEDS: MAGNESIUM CHLORIDE W/CALCIUM 64MG DELAYED REL TAB PO SCH ×3 (09:50→20:53)
[2022-08-05] MEDS: CHOLECALCIFEROL 1,000 UNITS 25 MCG TAB PO SCH (09:50)
[2022-08-05] MEDS: LANTUS PER UNIT CHARGE SQ SCH ×2 (09:59→20:59)
[2022-08-05 10:38] LABS: Albumin Globulin Ratio 0.6 (0.9-2); Albumin Level 2.4 gm/dl (3.4-5.0); Bilirubin,Total 0.7 mg/dl (0.2-1.0); Calcium 8.3 mg/dl (8.5-10.1); Creatinine Clr Calc Pharmacy 38.3 ml/min; Est GFR (African American) 42.3 ml/min; Est GFR (Non-African American) 36.5 ml/min; Globulin 4.2 gm/dl (2.5-4.0); Magnesium 2.1 mg/dl (1.7-2.4); Potassium 4.2 mmol/L (3.5-5.1); Total Protein 6.6 gm/dl (6.0-8.3)
[2022-08-05 10:55] LABS: Hematocrit (blood only) 30.2 % (34.1-44.9); Hemoglobin 9.5 g/dl (12.0-16.0); Mean Corpuscular Hemoglobin 27.8 pg (25.0-34.0); Mean Corpuscular Hgb Conc 31.5 g/dL (32.0-36.0); Mean Corpuscular Volume 88.3 fL (80.0-100.0); Mean Platelet Volume 10.6 fL (9.4-12.3); Platelet Count 75 K/uL (130-400); Platelet Estimate Decreased (Normal); RDW Coefficient of Variation 15.8 % (11.5-14.5); Red Blood Count 3.42 M/uL (3.93-5.22); White Blood Count 1.99 K/ul (4.8-10.8)
[2022-08-05] MEDS: LACTULOSE SYRUP 20 GM/30 ML UDC PO SCH (11:40)
[2022-08-05] MEDS: ATORVASTATIN 10 MG TAB PO SCH (20:53)
[2022-08-05] MEDS: guaiFENesin SUGAR FREE 200 MG/10 ML UDC PO PRN (20:55)
[2022-08-05] MEDS ORDERED: SODIUM CHLORIDE 0.65% NA SOLN 45 ML (OCEAN) ONE (23:47)
[2022-08-06] MEDS: ACETAMINOPHEN 1000 MG/100 ML IV IV SCH ×3 (05:34→21:35)
[2022-08-06 06:06] LABS: Albumin Globulin Ratio 0.6 (0.9-2); Albumin Level 2.3 gm/dl (3.4-5.0); Bilirubin,Total 0.6 mg/dl (0.2-1.0); Calcium 8.1 mg/dl (8.5-10.1); Creatinine Clr Calc Pharmacy 35.3 ml/min; Est GFR (African American) 38.3 ml/min; Globulin 3.8 gm/dl (2.5-4.0); Magnesium 1.8 mg/dl (1.7-2.4); Potassium 4.3 mmol/L (3.5-5.1); Total Protein 6.1 gm/dl (6.0-8.3)
[2022-08-06 06:47] LABS: Hematocrit (blood only) 26.9 % (34.1-44.9); Hemoglobin 8.4 g/dl (12.0-16.0); Mean Corpuscular Hemoglobin 27.5 pg (25.0-34.0); Mean Corpuscular Hgb Conc 31.2 g/dL (32.0-36.0); Mean Corpuscular Volume 87.9 fL (80.0-100.0); Platelet Count 74 K/uL (130-400); RDW Coefficient of Variation 15.7 % (11.5-14.5); RDW Standard Deviation 50.4 fL (36.4-46.3); Red Blood Count 3.06 M/uL (3.93-5.22); White Blood Count 2.83 K/ul (4.8-10.8)
[2022-08-06] MEDS: ALBUT/IPRATROP 3MG/0.5MG NEB 3 ML VIAL NEB SCH ×4 (07:42→19:26)
[2022-08-06] MEDS: SODIUM CHLORIDE 1 GM TABLET PO SCH (08:09)
[2022-08-06] MEDS: MAGNESIUM CHLORIDE W/CALCIUM 64MG DELAYED REL TAB PO SCH ×3 (08:09→21:26)
[2022-08-06] MEDS: CHOLECALCIFEROL 1,000 UNITS 25 MCG TAB PO SCH (08:09)
[2022-08-06] MEDS: LACTULOSE SYRUP 20 GM/30 ML UDC PO SCH ×2 (08:10→21:27)
[2022-08-06] MEDS: LEVOTHYROXINE SODIUM 50 MCG TABLET PO SCH (08:10)
[2022-08-06] MEDS: guaiFENesin SUGAR FREE 200 MG/10 ML UDC PO PRN ×2 (08:11→21:27)
--- NOTE | 2022-08-06 08:24 | Hospitalist Progress Note ---
Date of Service August 06, 2022 Assessment & Plan (1) Hepatic encephalopathy: Plan: Repeat NH3 level now and in AM Increase Lactulose 20 gm BID Discussed with patient and family goal of 2-4 loose BMs every day (2) Liver cirrhosis: Plan: -Stable -Spironolactone held -Restart Lasix 40mg today -Hx of esophageal varices, none on most recent EGD 07/29/22 -Follows with [facility], may need a nonselective beta mirta (possibly add Nadolol) -Low sodium diet (3) EMY (acute kidney injury): Plan: -Restart Lasix 40mg today -Continue to monitor daily weights, intake/output, and volume status closely -Continue to monitor renal function and electrolytes on AM CMP (4) Lactate blood increase: Plan: -Initial lactate in the ED was 1.8, increased to 2.1 prior to admission and now improved to 1.6 -Likely due to dehydration and poor perfusion -Will obtain a repeat lactate on admission and continue with light IV hydration (5) Weakness: Plan: -No focal neuro defects on exam -Likely due to HE -Continue to monitor after adequate resuscitation -PT/OT consults placed (6) Elevated troponin I level: Plan: -Initial trop elevated at 21, patient is asymptomatic and no acute ECG changes -Remains assymptomatic and no EKG changes (7) Cough: Plan: -Started on previous admission -Chest xray without consolidation, negative for covid/influenza/rsv -Stable on RA -Supportive therapy for now with pulm hygiene, prn DuoNebs, and prn robitussin -CXR today with mild pleural effusions (restarted Lasix) (8) Vomiting and diarrhea: Plan: Resolved -Discontinued the stool studies, has had only formed BMs since admission (started Lactulose and will eventually need 2-4 loose BMs daily) (9) Hypomagnesemia: Plan: -Noted to be 1.5 in the ED, S/P 1 gm IV mag in the ED -Had 2 additional bags and then continue home mag supplement -Mag level yesterday improved to 2.1 (10) Hypertension: Plan: -Hemodynamically stable -Hold lisinopril at this time with EMY, restart when renal function improves -May need to add additional antihypertensive while lisinopril is held if she becomes hypertensive -Possibly restart tomorrow (11) Aortic stenosis: Plan: -Restarted Lasix 40 mg daily (previously was on BID) (12) ROSALES (obstructive sleep apnea): Plan: -Continue Hs CPAP (13) Hypercholesterolemia: Plan: -Continue statin (14) Diabetes mellitus with peripheral vascular disease: Plan: -Hold metformin -Monitor BSG ACHS, goal is 110-140 -DMII diet -Continue with 5 units lantus BID and correction factor of 40 ACHS (15) GERD (gastroesophageal reflux disease): Plan: -Continue famotidine (16) Monoclonal gammopathy: Plan: -Stable (17) Thrombocytopenia: Plan: likely secondary to liver cirrhosis continue to monitor Plan -Continue BL SCDs for DVT PPX; would hold lovenox at this time with EMY and heparin at this time for chronic thrombocytopenias Admission and Anticipated Discharge Date Admission Date: August 04, 2022 Subjective Patient is awake, sitting up in recliner eating lunch. She states she is feeling better. Her son and niece are at her bedside. She denies any abdominal pain, nausea or vomiting. She had one BM thus far today. NH3 is still elevated. Patient denies any chest pain or dyspnea. + mild cough but improved with neb treatments and flutter valve per patient. Review of Systems Constitutional: no fever, no chills and no body aches Respiratory: + cough and + chest congestion; no dyspnea, no hemoptysis and no pain on inspiration Cardiovascular: no chest pain, no orthopnea, no syncope and no calf pain Gastrointestinal: no abdominal pain, no nausea and no vomiting Genitourinary: no dysuria, no urinary frequency and no urinary hesitancy Integumentary: no rash, no lesions and no new lesions Psychiatric: no depression, no change in appetite and no panic attacks Physical Exam Constitutional: cooperative, comfortable and + overweight Eyes: PERRL, conjunctivae normal, anicteric sclerae Respiratory: normal respiratory effort, + cough and able to speak in complete sentences mild lower lobe crackles Cardiovascular: Rate/Rhythm: regular rate and regular rhythm Heart Sounds: + murmur Gastrointestinal (Abdomen): normal bowel sounds, soft, nontender, no hepatosplenomegaly umbilical hernia Neurologic: awake; not confused Psychiatric: Orientation: alert, oriented x 3 and cooperative Results & Data Results & Data ([facility]) Vital Signs (Past 12 Hours) Vital Signs Temp Pulse Resp BP Pulse Ox O2 Del Method 08/06/22 07:43 77 18 96 Room Air 08/05/22 21:00 Room Air 08/05/22 20:52 37 C 80 16 142/86 H 94 Room Air Laboratory Results Abnormal lab results 08/05/22 08/05/22 08/06/22 Range/Units 17:03 20:49 05:25 WBC (4.8-10.8) K/ul RBC (3.93-5.22) M/uL Hgb (12.0-16.0) g/dl Hct (34.1-44.9) % MCHC (32.0-36.0) g/dL RDW Std Deviation (36.4-46.3) fL RDW Coeff of Leah (11.5-14.5) % Plt Count (130-400) K/uL Anion Gap (3-11) BUN (6-23) mg/dl Creatinine (0.6-1.2) mg/dl POC Glucose 157 H 152 H (70-99) mg/dl Calcium (8.5-10.1) mg/dl Ammonia 105.0 H (18-72) umol/L Albumin (3.4-5.0) gm/dl Albumin/Globulin Ratio (0.9-2) 08/06/22 08/06/22 08/06/22 Range/Units 05:25 05:25 12:50 WBC 2.83 L (4.8-10.8) K/ul RBC 3.06 L (3.93-5.22) M/uL Hgb 8.4 L (12.0-16.0) g/dl Hct 26.9 L (34.1-44.9) % MCHC 31.2 L (32.0-36.0) g/dL RDW Std Deviation 50.4 H (36.4-46.3) fL RDW Coeff of Leah 15.7 H (11.5-14.5) % Plt Count 74 L (130-400) K/uL Anion Gap 1 L (3-11) BUN 27 H (6-23) mg/dl Creatinine 1.50 H (0.6-1.2) mg/dl POC Glucose 144 H (70-99) mg/dl Calcium 8.1 L (8.5-10.1) mg/dl Ammonia (18-72) umol/L Albumin 2.3 L (3.4-5.0) gm/dl Albumin/Globulin Ratio 0.6 L (0.9-2) Diagnostic Findings Chest X-Ray 08/06/22 09:23 XR chest 2V PA/lateral CLINICAL HISTORY: cough TECHNIQUE: 2 views of the chest were obtained. Comparison: Comparison is made to chest radiograph 08/04/2022 FINDINGS: No lines and tubes are seen. Cardiomegaly is noted. The lungs are clear. Small bilateral pleural effusions are seen. IMPRESSION: Small bilateral pleural effusions. No evidence of pneumonia. ACT 112: Negative or not required by law. Electronically signed by: Cory Wolff M.D. 08/06/2022 9:59 AM PG Care Time/CCT Total # of Minutes Spent Total Time Spent with Patient: Total time spent is greater than 50% in coordination of care (as documented) at patient's floor/unit and/or counseling patient: Coding Level of Care Code 12353 SUB INP/OBS CARE 08/17MIN Diagnoses Hepatic encephalopathy K76.82 Liver cirrhosis K74.60 Ascites presence: without ascites Hepatic cirrhosis type: unspecified hepatic cirrhosis EMY (acute kidney injury) N17.9 Lactate blood increase R79.89 Weakness R53.1 Elevated troponin I level R77.8 Cough R05.1 Cough type: acute Vomiting and diarrhea R11.10; R19.7 Hypomagnesemia E83.42 Hypertension I10 Aortic stenosis I35.0 ROSALES (obstructive sleep apnea) G47.33 Hypercholesterolemia E78.00 Diabetes mellitus with peripheral vascular disease E11.51 GERD (gastroesophageal reflux disease) K21.9 Monoclonal gammopathy D47.2 Thrombocytopenia D69.6 (1) Cough Cough type: acute Qualified Code(s): R05.1 - Acute cough (2) Liver cirrhosis Ascites presence: without ascites Hepatic cirrhosis type: unspecified hepatic cirrhosis Qualified Code(s): K74.60 - Unspecified cirrhosis of liver
[2022-08-06] MEDS: INSULIN ASPART PER UNIT SC SCH ×4 (09:40→21:43)
[2022-08-06] MEDS: LANTUS PER UNIT CHARGE SQ SCH ×2 (09:55→21:43)
--- NOTE | 2022-08-06 10:01 | XRay Report ---
XR chest 2V PA/lateral CLINICAL HISTORY: cough TECHNIQUE: 2 views of the chest were obtained. Comparison: Comparison is made to chest radiograph 08/04/2022 FINDINGS: No lines and tubes are seen. Cardiomegaly is noted. The lungs are clear. Small bilateral pleural effu sions are seen. IMPRESSION: Small bilateral pleural effusions. No evidence of pneumonia. ACT 112: Negative or not required by law. Electronically signed by: Cory Wolff M.D. 08/06/2022 9:59 AM
[2022-08-06] MEDS: FUROSEMIDE 40 MG TAB PO SCH (15:03)
[2022-08-06] MEDS: ATORVASTATIN 10 MG TAB PO SCH (21:26)
[2022-08-07] MEDS: ACETAMINOPHEN 500 MG TAB PO SCH ×3 (05:56→21:24)
[2022-08-07 06:58] LABS: Hematocrit (blood only) 27.6 % (34.1-44.9); Hemoglobin 8.6 g/dl (12.0-16.0); Mean Corpuscular Hemoglobin 27.3 pg (25.0-34.0); Mean Corpuscular Hgb Conc 31.2 g/dL (32.0-36.0); Mean Corpuscular Volume 87.6 fL (80.0-100.0); Mean Platelet Volume 10.2 fL (9.4-12.3); Platelet Count 91 K/uL (130-400); RDW Coefficient of Variation 15.5 % (11.5-14.5); RDW Standard Deviation 49.5 fL (36.4-46.3); Red Blood Count 3.15 M/uL (3.93-5.22); White Blood Count 3.63 K/ul (4.8-10.8)
[2022-08-07] MEDS: ALBUT/IPRATROP 3MG/0.5MG NEB 3 ML VIAL NEB SCH ×4 (07:07→19:38)
[2022-08-07 07:18] LABS: Albumin Globulin Ratio 0.6 (0.9-2); Albumin Level 2.3 gm/dl (3.4-5.0); BUN Creatinine Ratio 21.1 (10-20); Bilirubin,Total 0.7 mg/dl (0.2-1.0); Calcium 8.2 mg/dl (8.5-10.1); Creatinine Clr Calc Pharmacy 40.3 ml/min; Est GFR (African American) 44.3 ml/min; Est GFR (Non-African American) 38.2 ml/min; Magnesium 1.5 mg/dl (1.7-2.4); Potassium 4.5 mmol/L (3.5-5.1); Total Protein 6.3 gm/dl (6.0-8.3)
[2022-08-07] MEDS ORDERED: MAGNESIUM SULFATE / D5W 1 GM/100 ML BAG IV ONE (08:30)
[2022-08-07] MEDS: LACTULOSE SYRUP 20 GM/30 ML UDC PO SCH ×3 (09:23→20:42)
[2022-08-07] MEDS: guaiFENesin SUGAR FREE 200 MG/10 ML UDC PO PRN ×2 (09:23→20:42)
[2022-08-07] MEDS: CHOLECALCIFEROL 1,000 UNITS 25 MCG TAB PO SCH (09:24)
[2022-08-07] MEDS: SODIUM CHLORIDE 1 GM TABLET PO SCH (09:24)
[2022-08-07] MEDS: MAGNESIUM CHLORIDE W/CALCIUM 64MG DELAYED REL TAB PO SCH ×3 (09:24→20:42)
[2022-08-07] MEDS: LEVOTHYROXINE SODIUM 50 MCG TABLET PO SCH (09:25)
[2022-08-07] MEDS: FUROSEMIDE 40 MG TAB PO SCH (09:25)
[2022-08-07] MEDS: INSULIN ASPART PER UNIT SC SCH ×4 (09:30→21:11)
--- NOTE | 2022-08-07 09:41 | Hospitalist Progress Note ---
Date of Service August 07, 2022 Assessment & Plan (1) Hepatic encephalopathy: Plan: Repeat NH3 level in AM Increase Lactulose 20 gm TID Discussed with patient and family goal of 2-4 loose BMs every day (2) Liver cirrhosis: Plan: -GREGORY Cirrhosis -Stable -Spironolactone to restart tomorrow 25mg q AM -Restarted Lasix 40mg 08/06/22 -Hx of esophageal varices, none on most recent EGD 07/29/22 -Follows with [facility] GI, may need a nonselective beta mirta (possibly add Nadolol) -Low sodium diet (3) EMY (acute kidney injury): Plan: -Restart Lasix 40mg 08/06/22 -Continue to monitor daily weights, intake/output, and volume status closely -Continue to monitor renal function and electrolytes on AM CMP (4) Lactate blood increase: Plan: -Initial lactate in the ED was 1.8, increased to 2.1 prior to admission and now improved to 1.6 -Likely due to dehydration and poor perfusion -Will obtain a repeat lactate on admission and continue with light IV hydration (5) Weakness: Plan: -No focal neuro defects on exam -Likely due to HE -Continue to monitor after adequate resuscitation -PT/OT consults placed (6) Elevated troponin I level: Plan: -Initial trop elevated at 21, patient is asymptomatic and no acute ECG changes -Remains assymptomatic and no EKG changes (7) Cough: Plan: -Started on previous admission -Chest xray without consolidation, negative for covid/influenza/rsv -Stable on RA -Supportive therapy for now with pulm hygiene, prn DuoNebs, and prn robitussin -CXR today with mild pleural effusions (restarted Lasix) (8) Vomiting and diarrhea: Plan: Resolved -Discontinued the stool studies, has had only formed BMs since admission (started Lactulose and will eventually need 2-4 loose BMs daily) (9) Hypomagnesemia: Plan: -Decreased today to 1.5 -Added 1 bag magnesium sulfate -Continue TID Slow-Mag (10) Hypertension: Plan: -Hemodynamically stable -Hold lisinopril at this time with EMY, restart when renal function improves -May need to add additional antihypertensive while lisinopril is held if she becomes hypertensive -Possibly restart tomorrow (11) Aortic stenosis: Plan: -Restarted Lasix 40 mg daily (previously was on BID) (12) ROSALES (obstructive sleep apnea): Plan: -Continue Hs CPAP (13) Hypercholesterolemia: Plan: -Continue statin (14) Diabetes mellitus with peripheral vascular disease: Plan: -Hold metformin -Monitor BSG ACHS, goal is 110-140 -DMII diet -Continue with 5 units lantus BID and correction factor of 40 ACHS (15) GERD (gastroesophageal reflux disease): Plan: -Continue famotidine (16) Monoclonal gammopathy: Plan: -Stable (17) Thrombocytopenia: Plan: likely secondary to liver cirrhosis continue to monitor Plan -Continue BL SCDs for DVT PPX; would hold lovenox at this time with EMY and heparin at this time for chronic thrombocytopenias Encouraged to continue to be up and OOB Admission and Anticipated Discharge Date Admission Date: August 07, 2022 Subjective Patient was awake sitting up in her recliner. Lactulose was increased yesterday to BID and today to TID. NH3 still elevated and need to titrate lactulose to maintain 2-4 loose BMs daily. Patient clinically has improved and she is A&O x 3 without asterixis. She feels her cough continues to improve and she denies any chest pain or SOB. Review of Systems Review of Systems: complete ROS hard to elicit with patient being lethargic and falling asleep during history taking She admits to fatigue and being weak and shakey She denies any chest pain, any further GI bleeding or nausea or vomiting Constitutional: no fever, no chills and no body aches Respiratory: + cough and + chest congestion; no dyspnea, no hemoptysis and no pain on inspiration Cardiovascular: no chest pain, no orthopnea, no syncope and no calf pain Gastrointestinal: no abdominal pain, no nausea and no vomiting Genitourinary: no dysuria, no urinary frequency and no urinary hesitancy Integumentary: no rash, no lesions and no new lesions Psychiatric: no depression, no change in appetite and no panic attacks Physical Exam Constitutional: cooperative, comfortable, + lethargic and + overweight Eyes: PERRL, conjunctivae normal, anicteric sclerae Respiratory: normal respiratory effort, + cough and able to speak in complete sentences Cardiovascular: Rate/Rhythm: regular rate and regular rhythm Heart Sounds: + murmur (+SHAWN ) Gastrointestinal (Abdomen): normal bowel sounds, soft, nontender, no hepatosplenomegaly Neurologic: awake; not confused Psychiatric: Orientation: alert, oriented x 3, oriented to person, oriented to time and cooperative Results & Data Results & Data ([facility]) Vital Signs (Past 12 Hours) Vital Signs Temp Pulse Resp BP Pulse Ox O2 Del Method 08/07/22 07:27 36.8 C 75 18 159/72 H 96 Room Air 08/07/22 07:18 Room Air 08/07/22 07:09 79 20 95 Room Air Laboratory Results Abnormal lab results 08/06/22 08/06/22 08/07/22 Range/Units 17:52 20:47 06:36 WBC 3.63 L (4.8-10.8) K/ul RBC 3.15 L (3.93-5.22) M/uL Hgb 8.6 L (12.0-16.0) g/dl Hct 27.6 L (34.1-44.9) % MCHC 31.2 L (32.0-36.0) g/dL RDW Std Deviation 49.5 H (36.4-46.3) fL RDW Coeff of Leah 15.5 H (11.5-14.5) % Plt Count 91 L (130-400) K/uL BUN (6-23) mg/dl Creatinine (0.6-1.2) mg/dl BUN/Creatinine Ratio (10-20) POC Glucose 181 H 100 H (70-99) mg/dl Calcium (8.5-10.1) mg/dl Magnesium (1.7-2.4) mg/dl Ammonia (18-72) umol/L Albumin (3.4-5.0) gm/dl Albumin/Globulin Ratio (0.9-2) 08/07/22 08/07/22 08/07/22 Range/Units 06:36 06:36 12:25 WBC (4.8-10.8) K/ul RBC (3.93-5.22) M/uL Hgb (12.0-16.0) g/dl Hct (34.1-44.9) % MCHC (32.0-36.0) g/dL RDW Std Deviation (36.4-46.3) fL RDW Coeff of Leah (11.5-14.5) % Plt Count (130-400) K/uL BUN 28 H (6-23) mg/dl Creatinine 1.33 H (0.6-1.2) mg/dl BUN/Creatinine Ratio 21.1 H (10-20) POC Glucose 149 H (70-99) mg/dl Calcium 8.2 L (8.5-10.1) mg/dl Magnesium 1.5 L (1.7-2.4) mg/dl Ammonia 105.0 H (18-72) umol/L Albumin 2.3 L (3.4-5.0) gm/dl Albumin/Globulin Ratio 0.6 L (0.9-2) PG Care Time/CCT Total # of Minutes Spent Total Time Spent with Patient: Total time spent is greater than 50% in coordination of care (as documented) at patient's floor/unit and/or counseling patient: Coding Level of Care Code 26270 SUB INP/OBS CARE 08/17MIN Diagnoses Hepatic encephalopathy K76.82 Liver cirrhosis K74.60 Ascites presence: without ascites Hepatic cirrhosis type: unspecified hepatic cirrhosis EMY (acute kidney injury) N17.9 Lactate blood increase R79.89 Weakness R53.1 Elevated troponin I level R77.8 Cough R05.1 Cough type: acute Vomiting and diarrhea R11.10; R19.7 Hypomagnesemia E83.42 Hypertension I10 Aortic stenosis I35.0 ROSALES (obstructive sleep apnea) G47.33 Hypercholesterolemia E78.00 Diabetes mellitus with peripheral vascular disease E11.51 GERD (gastroesophageal reflux disease) K21.9 Monoclonal gammopathy D47.2 Thrombocytopenia D69.6 (1) Cough Cough type: acute Qualified Code(s): R05.1 - Acute cough (2) Liver cirrhosis Ascites presence: without ascites Hepatic cirrhosis type: unspecified hepatic cirrhosis Qualified Code(s): K74.60 - Unspecified cirrhosis of liver
[2022-08-07] MEDS: LANTUS PER UNIT CHARGE SQ SCH ×2 (09:42→21:11)
[2022-08-07] MEDS: ENOXAPARIN INJ 40 MG/0.4 ML SYR SQ SCH (12:03)
[2022-08-07] MEDS: ATORVASTATIN 10 MG TAB PO SCH (20:42)
[2022-08-08] MEDS: ACETAMINOPHEN 500 MG TAB PO SCH ×3 (05:54→21:10)
[2022-08-08] MEDS: guaiFENesin SUGAR FREE 200 MG/10 ML UDC PO PRN ×2 (06:08→14:37)
[2022-08-08] MEDS: ALBUT/IPRATROP 3MG/0.5MG NEB 3 ML VIAL NEB SCH (07:25)
[2022-08-08 08:07] LABS: Hematocrit (blood only) 27.9 % (34.1-44.9); Hemoglobin 8.9 g/dl (12.0-16.0); Mean Corpuscular Hemoglobin 27.2 pg (25.0-34.0); Mean Corpuscular Hgb Conc 31.9 g/dL (32.0-36.0); Mean Corpuscular Volume 85.3 fL (80.0-100.0); Mean Platelet Volume 10.8 fL (9.4-12.3); Platelet Count 93 K/uL (130-400); RDW Coefficient of Variation 15.4 % (11.5-14.5); RDW Standard Deviation 48.3 fL (36.4-46.3); Red Blood Count 3.27 M/uL (3.93-5.22); White Blood Count 3.87 K/ul (4.8-10.8)
[2022-08-08] MEDS: MAGNESIUM CHLORIDE W/CALCIUM 64MG DELAYED REL TAB PO SCH ×3 (08:20→20:46)
[2022-08-08] MEDS: LEVOTHYROXINE SODIUM 50 MCG TABLET PO SCH (08:21)
[2022-08-08] MEDS: SPIRONOLACTONE 25 MG TAB PO SCH (08:21)
[2022-08-08] MEDS: SODIUM CHLORIDE 1 GM TABLET PO SCH (08:21)
[2022-08-08] MEDS: ENOXAPARIN INJ 40 MG/0.4 ML SYR SQ SCH (08:21)
[2022-08-08] MEDS: FUROSEMIDE 40 MG TAB PO SCH (08:21)
[2022-08-08] MEDS: CHOLECALCIFEROL 1,000 UNITS 25 MCG TAB PO SCH (08:21)
[2022-08-08] MEDS: LACTULOSE SYRUP 20 GM/30 ML UDC PO SCH ×5 (08:21→20:46)
[2022-08-08 08:23] LABS: BUN Creatinine Ratio 21.6 (10-20); Calcium 8.3 mg/dl (8.5-10.1); Creatinine Clr Calc Pharmacy 42.8 ml/min; Est GFR (African American) 47.7 ml/min; Est GFR (Non-African American) 41.2 ml/min; Magnesium 1.4 mg/dl (1.7-2.4); Potassium 4.8 mmol/L (3.5-5.1)
[2022-08-08] MEDS: INSULIN ASPART PER UNIT SC SCH ×4 (09:35→20:59)
[2022-08-08] MEDS: LANTUS PER UNIT CHARGE SQ SCH ×2 (09:35→20:59)
[2022-08-08] MEDS ORDERED: ALBUT/IPRATROP 3MG/0.5MG NEB 3 ML VIAL NEB SCH (11:00)
[2022-08-08] MEDS ORDERED: ALBUT/IPRATROP 3MG/0.5MG NEB 3 ML VIAL NEB PRN (11:02)
--- NOTE | 2022-08-08 15:07 | Hospitalist Progress Note ---
Date of Service August 08, 2022 Assessment & Plan (1) Hepatic encephalopathy: Plan: Repeat NH3 level in AM Increase Lactulose 20 gm QID Discussed with patient and family goal of 2-4 loose BMs every day (2) Liver cirrhosis: Plan: -GREGORY Cirrhosis -Stable -Spironolactone 25mg q AM -Lasix 40mg -Hx of esophageal varices, none on most recent EGD 07/29/22 -Follows with [facility], may need a nonselective beta mirta (possibly add Nadolol) -Low sodium diet (3) EMY (acute kidney injury): Plan: -Restarted Lasix 40mg 08/06/22 -Restarted Spironolactone 25mg 08/07/22 -Continue to monitor daily weights, intake/output, and volume status closely -Continue to monitor renal function and electrolytes on AM CMP (4) Lactate blood increase: Plan: -Initial lactate in the ED was 1.8, increased to 2.1 prior to admission and now improved to 1.6 -Likely due to dehydration and poor perfusion -Will obtain a repeat lactate on admission and continue with light IV hydration (5) Weakness: Plan: -No focal neuro defects on exam -Likely due to HE -Continue to monitor after adequate resuscitation -PT/OT consults placed (6) Elevated troponin I level: Plan: -Initial trop elevated at 21, patient is asymptomatic and no acute ECG changes -Remains assymptomatic and no EKG changes (7) Cough: Plan: -Started on previous admission -Chest xray without consolidation, negative for covid/influenza/rsv -Stable on RA -Supportive therapy for now with pulm hygiene, prn DuoNebs, and prn robitussin -CXR today with mild pleural effusions (restarted Lasix) (8) Vomiting and diarrhea: Plan: Resolved -Discontinued the stool studies, has had only formed BMs since admission (started Lactulose and will eventually need 2-4 loose BMs daily) (9) Hypomagnesemia: Plan: -Decreased today to 1.5 -Added 1 bag magnesium sulfate -Continue TID Slow-Mag (10) Hypertension: Plan: -Hemodynamically stable -Hold lisinopril at this time with EMY, restart when renal function improves -May need to add additional antihypertensive while lisinopril is held if she becomes hypertensive -Possibly restart tomorrow (11) Aortic stenosis: Plan: -Restarted Lasix 40 mg daily (previously was on BID) (12) ROSALES (obstructive sleep apnea): Plan: -Continue Hs CPAP (13) Hypercholesterolemia: Plan: -Continue statin (14) Diabetes mellitus with peripheral vascular disease: Plan: -Hold metformin -Monitor BSG ACHS, goal is 110-140 -DMII diet -Continue with 5 units lantus BID and correction factor of 40 ACHS (15) GERD (gastroesophageal reflux disease): Plan: -Continue famotidine (16) Monoclonal gammopathy: Plan: -Stable (17) Thrombocytopenia: Plan: likely secondary to liver cirrhosis continue to monitor Plan -Continue BL SCDs for DVT PPX; would hold lovenox at this time with EMY and heparin at this time for chronic thrombocytopenias Encouraged to continue to be up and OOB Continue PT/OT Anticipate discharge home tomorrow Admission and Anticipated Discharge Date Admission Date: August 07, 2022 Subjective Patient is awake sitting up in recliner She is using the flutter valve and states her cough has greatly improved. She only had one large semiformed BM thus far today. NH3 level increased from 105 to 154. Review of Systems Constitutional: no fever, no chills and no body aches Respiratory: + cough and + chest congestion; no dyspnea, no hemoptysis and no pain on inspiration Cardiovascular: no chest pain, no orthopnea, no syncope and no calf pain Gastrointestinal: no abdominal pain, no nausea and no vomiting Genitourinary: no dysuria, no urinary frequency and no urinary hesitancy Integumentary: no rash, no lesions and no new lesions Psychiatric: no depression, no change in appetite and no panic attacks Physical Exam 2 Constitutional: cooperative, comfortable, + lethargic and + overweight Eyes: PERRL, conjunctivae normal, anicteric sclerae Respiratory: normal respiratory effort and able to speak in complete sentences; no labored breathing Cardiovascular: Rate/Rhythm: regular rate and regular rhythm Heart Sounds: + murmur (+SHAWN ) Gastrointestinal (Abdomen): normal bowel sounds, soft, nontender, no hepatosplenomegaly Neurologic: awake; not confused Psychiatric: Orientation: alert, oriented x 3, oriented to person, oriented to time and cooperative Results & Data Results & Data ([facility]) Vital Signs (Past 12 Hours) Vital Signs Temp Pulse Resp BP Pulse Ox O2 Del Method 08/08/22 15:02 36.5 C 77 18 151/86 H 98 Room Air 08/08/22 10:08 Room Air 08/08/22 07:26 78 16 96 Room Air 08/08/22 07:20 36.4 C L 72 20 145/72 H 96 Room Air Laboratory Results Abnormal lab results 08/07/22 08/07/22 08/08/22 Range/Units 17:21 20:54 07:37 WBC 3.87 L (4.8-10.8) K/ul RBC 3.27 L (3.93-5.22) M/uL Hgb 8.9 L (12.0-16.0) g/dl Hct 27.9 L (34.1-44.9) % MCHC 31.9 L (32.0-36.0) g/dL RDW Std Deviation 48.3 H (36.4-46.3) fL RDW Coeff of Leah 15.4 H (11.5-14.5) % Plt Count 93 L (130-400) K/uL Sodium (136-145) mmol/L Anion Gap (3-11) BUN (6-23) mg/dl Creatinine (0.6-1.2) mg/dl BUN/Creatinine Ratio (10-20) POC Glucose 121 H 147 H (70-99) mg/dl Calcium (8.5-10.1) mg/dl Magnesium (1.7-2.4) mg/dl Ammonia (18-72) umol/L 08/08/22 08/08/22 08/08/22 Range/Units 07:37 07:41 12:01 WBC (4.8-10.8) K/ul RBC (3.93-5.22) M/uL Hgb (12.0-16.0) g/dl Hct (34.1-44.9) % MCHC (32.0-36.0) g/dL RDW Std Deviation (36.4-46.3) fL RDW Coeff of Leah (11.5-14.5) % Plt Count (130-400) K/uL Sodium 135 L (136-145) mmol/L Anion Gap 1 L (3-11) BUN 27 H (6-23) mg/dl Creatinine 1.25 H (0.6-1.2) mg/dl BUN/Creatinine Ratio 21.6 H (10-20) POC Glucose 119 H (70-99) mg/dl Calcium 8.3 L (8.5-10.1) mg/dl Magnesium 1.4 L (1.7-2.4) mg/dl Ammonia 154.0 H (18-72) umol/L PG Care Time/CCT Total # of Minutes Spent Total Time Spent with Patient: Total time spent is greater than 50% in coordination of care (as documented) at patient's floor/unit and/or counseling patient: Coding Level of Care Code 48950 SUB INP/OBS CARE 08/17MIN Diagnoses Hepatic encephalopathy K76.82 Liver cirrhosis K74.60 Ascites presence: without ascites Hepatic cirrhosis type: unspecified hepatic cirrhosis EMY (acute kidney injury) N17.9 Lactate blood increase R79.89 Weakness R53.1 Elevated troponin I level R77.8 Cough R05.1 Cough type: acute Vomiting and diarrhea R11.10; R19.7 Hypomagnesemia E83.42 Hypertension I10 Aortic stenosis I35.0 ROSALES (obstructive sleep apnea) G47.33 Hypercholesterolemia E78.00 Diabetes mellitus with peripheral vascular disease E11.51 GERD (gastroesophageal reflux disease) K21.9 Monoclonal gammopathy D47.2 Thrombocytopenia D69.6 (1) Cough Cough type: acute Qualified Code(s): R05.1 - Acute cough (2) Liver cirrhosis Ascites presence: without ascites Hepatic cirrhosis type: unspecified hepatic cirrhosis Qualified Code(s): K74.60 - Unspecified cirrhosis of liver
[2022-08-08] MEDS: ATORVASTATIN 10 MG TAB PO SCH (20:46)
[2022-08-09] MEDS: ACETAMINOPHEN 500 MG TAB PO SCH ×2 (06:28→13:24)
[2022-08-09 07:58] LABS: BUN Creatinine Ratio 23.8 (10-20); Calcium 8.5 mg/dl (8.5-10.1); Creatinine Clr Calc Pharmacy 43.3 ml/min; Est GFR (African American) 49.1 ml/min; Est GFR (Non-African American) 42.4 ml/min; Potassium 4.3 mmol/L (3.5-5.1)
[2022-08-09] MEDS: INSULIN ASPART PER UNIT SC SCH ×2 (08:49→12:06)
[2022-08-09] MEDS: LANTUS PER UNIT CHARGE SQ SCH (09:01)
[2022-08-09] MEDS: SPIRONOLACTONE 25 MG TAB PO SCH (09:02)
[2022-08-09] MEDS: FUROSEMIDE 40 MG TAB PO SCH (09:02)
[2022-08-09] MEDS: CHOLECALCIFEROL 1,000 UNITS 25 MCG TAB PO SCH (09:02)
[2022-08-09] MEDS: SODIUM CHLORIDE 1 GM TABLET PO SCH (09:02)
[2022-08-09] MEDS: guaiFENesin SUGAR FREE 200 MG/10 ML UDC PO PRN (09:02)
[2022-08-09] MEDS: ENOXAPARIN INJ 40 MG/0.4 ML SYR SQ SCH (09:03)
[2022-08-09] MEDS: LACTULOSE SYRUP 20 GM/30 ML UDC PO SCH ×2 (09:03→13:24)
[2022-08-09] MEDS: MAGNESIUM CHLORIDE W/CALCIUM 64MG DELAYED REL TAB PO SCH ×2 (09:03→13:24)
[2022-08-09] MEDS: LEVOTHYROXINE SODIUM 50 MCG TABLET PO SCH (10:26)
--- NOTE | 2022-08-09 14:04 | Discharge Summary ---
Date of Service August 09, 2022 Admission HPI Per Admitting Provider Rosalind is a 76-year-old female with past medical history of hypertension, chronic deep vein thrombosis diagnosed approximately April 2022, mod-severe aortic stenosis (LVEF of 55-60% as of 07/29/22), monoclonal gammopathy of unknown significance, fatty liver with cirrhosis, diabetes, hypercholesterolemia, ROSALES who presented to the [facility] ED on 08/04/22 from home with complaints of generalized weakness, nausea, and vomiting. In the ED the patient was found to be afebrile, hypertensive at 167/83, and stable on RA. Labs were remarkable for a stable pancytopenia, cr of 1.79 (baseline appears to be approximately 1.0), mag of 1.5, corrected calcium of 9.0, otherwise stable electrolytes, initial lactate of 1.8 which increased to 2.1 prior to admission, AST of 47 (up from 42 as of 08/01/21), initial high sensitivity trop of 21, TSH of 7.022 with free T4 of 1.16, UA in process, and Covid/Influenza/RSV negative. Chest xray was read as "No change in the cardiomegaly and mild congestive change.". Prior to admission the patient was given an albuterol treatment, 1gm IV tylenol, 500 mL NSS bolus, and 4 mg IV zofran. Per chart review, the patient was recently admitted to [facility] ED from 07/28/21- 08/01/21 for lower GI bleed. During her admission she was evaluated by GI and underwent EGD on 07/28/22 which showed a normal esophagus, stomach, duodenal bulb and second portion of the duodenum. There were no signs of varices, bleeding, or ulcers on EGD. Her rectal bleeding was thought to be due to a diverticular bleed. Her eliquis for previous DVT was stopped as she was also noted to have an IVC filter in place. Of note, she was started and discharged on 40 mg PO lasix due to concerned of possible diastolic CHF prior to her echo being obtained. At the time of the exam the patient was lying comfortably in bed in no acute distress. She states that she started to develop nausea, one episode of non- bloody emesis, and at least 3 episodes daily of watery diarrhea approximately 2 days ago. She states that she continued to take the lasix 40 mg PO daily and her spironolactone daily since discharge. She has not had recent fevers or chills, her baseline SOB is stable, she has not had chest pain, she started to develop a slightly productive cough during her last admission, this has continued. She described her sputum as yellow. She has been having the nausea with her one episode of vomiting and has been having lower abdominal discomfort over the past 24-48 hours. She does not think that she has been on antibiotics recently She states that during the beginning of her last admission she was swollen "everywhere". She states that her abdomen was very swollen, since being on the lasix this swelling has improved. She felt as though she was getting dehydrated but wasn't sure how much water she was allowed to drink while on the diuretics. She feels generally weak at this time but denies recent trauma or falls. Since being discharged she had not had further episodes of bloody bowel movements or rectal bleeding. She is currently living with her son at his home. I spoke to her regarding code status, she is a conditional code. She would only want a trial of intubation if needed. She would not want CPR or defibrillation in the event of cardiac arrest. If she could not make decisions for herself she would want her son to make them for her. Please refer to Dr. Leach's attestation for any changes to the treatment plan Admission Exam Per Admitting Provider Physical Exam: General:In no acute distress, stated age, chronically ill-appearing HEENT:Normocephalic, atraumatic, no scleral icterus, pupils around round, symmetrical, and reactive to light, dry mucus membranes, no JVD, trachea midline, no thyromegaly Chest/Pulm:No respiratory distress, symmetrical chest expansion, expiratory wheezing noted throughout Cardiac:RRR, systolic murmur noted Abdomen:Negative for ascites and bruising, normoactive bowel sounds, soft, non-tender to palpation throughout Musculoskeletal:Symmetrical and without signs of acute trauma, upper and lower extremities with full ROM, no atrophy, spasticity, or flaccidity Extremities:Radial, dorsalis pedis, and posterior tibial pulses are intact and symmetrical, +1 edema noted in the BL LE's Skin:Warm, dry, no rashes , lesions, or scars noted Neuro:Alert and oriented to person, place, month, year, and president, no focal defects, CN II-XII tested and intact, finger to nose test negative, no tremors noted Psych:No acute distress, calm and cooperative during the exam Principal Diagnosis Hepatic Encephalopathy GREGORY Cirrhosis Constipation Discharge Exam Constitutional cooperative, comfortable, + lethargic and + overweight Eyes PERRL, conjunctivae normal, anicteric sclerae Respiratory normal respiratory effort, + cough and able to speak in complete sentences; no labored breathing Cardiovascular Rate/Rhythm: regular rate and regular rhythm Heart Sounds: + murmur (+SHAWN ) Gastrointestinal (Abdomen) normal bowel sounds, soft, nontender, no hepatosplenomegaly Neurologic awake; not confused Psychiatric Orientation: alert, oriented x 3, oriented to person, oriented to time and cooperative Discharge Data Allergies Allergy/AdvReac Type Severity Reaction Status Date / Time No Known Allergies Allergy Verified 08/03/22 10:23 Consultations 08/04/22 09:18 ED Decision to Admit Stat Ordered Studies 08/04/22 09:22 CT abd pelvis wo con Stat IMPRESSION: 1. No acute abnormalities are seen. In particular there is no evidence of colitis or diverticulitis. 2. Cirrhosis with variceal formation. Minimal ascites is likely related. 3. Body wall edema is again seen. 08/04/22 CXR IMPRESSION: Small bilateral pleural effusions. No evidence of pneumonia. Hospital Course (1) Hepatic encephalopathy: NH3 level [id number] on admission Titrated Lactulose up to 20gm QID (was having more than 4 loose BMS daily) Will discharge on 30gm BID Discussed with patient and family goal of 2-4 loose BMs every day (2) Liver cirrhosis: -GREGORY Cirrhosis -Stable -Spironolactone 25mg q AM -Lasix 40mg -Hx of esophageal varices, none on most recent EGD 07/29/22 -Follows with [facility] GI, may need a nonselective beta mirta (possibly add Nadolol) -Low sodium diet (3) EMY (acute kidney injury): -Restarted Lasix 40mg 08/06/22 -Restarted Spironolactone 25mg 08/07/22 -Continue to monitor daily weights, intake/output, and volume status closely -Monitored electrolytes and ammonia levels (4) Lactate blood increase: -Initial lactate in the ED was 1.8, increased to 2.1 prior to admission and now improved to 1.6 -Likely due to dehydration and poor perfusion (5) Weakness: -No focal neuro defects on exam -Likely due to HE -Continue to monitor after adequate resuscitation -PT/OT consults placed (6) Elevated troponin I level: -Initial trop elevated at 21, patient is asymptomatic and no acute ECG changes -Remains assymptomatic and no EKG changes (7) Cough: -Started on previous admission -Chest xray without consolidation, negative for covid/influenza/rsv -Stable on RA -Supportive therapy for now with pulm hygiene, prn DuoNebs, and prn robitussin -CXR today with mild pleural effusions (restarted Lasix) (8) Vomiting and diarrhea: Resolved -Discontinued the stool studies, has had only formed BMs since admission (started Lactulose and will eventually need 2-4 loose BMs daily) (9) Hypomagnesemia: -Decreased today to 1.5 -Added 1 bag magnesium sulfate -Continue TID Slow-Mag (10) Hypertension: -Hemodynamically stable -Hold lisinopril at this time with EMY, restart when renal function improves -May need to add additional antihypertensive while lisinopril is held if she becomes hypertensive -Restart Lisinopril (11) Aortic stenosis: -Restarted Lasix 40 mg daily (previously was on BID) (12) ROSALES (obstructive sleep apnea): -Continue Hs CPAP (13) Hypercholesterolemia: -Continue statin (14) Diabetes mellitus with peripheral vascular disease: -Hold metformin -Monitor BSG ACHS, goal is 110-140 -DMII diet -Continued with 5 units lantus BID and correction factor of 40 ACHS (15) GERD (gastroesophageal reflux disease): -Continue famotidine (16) Monoclonal gammopathy: -Stable (17) Thrombocytopenia: likely secondary to liver cirrhosis continue to monitor (18) BMI greater than 40: recommend life style changes Plan -Continue BL SCDs for DVT PPX; would hold lovenox at this time with EMY and heparin at this time for chronic thrombocytopenias Encouraged to continue to be up and OOB Continue PT/OT Anticipate discharge home today Total Time Total Time Spent Total Time Spent (In Minutes): 35 Discharge Plan Discharge Items Patient Disposition: Home - Self-Care Reason For Visit: WEAKNESS, NAUSEA, VOMITING, DIARRHEA Discharge Diagnosis: Hepatic Encephalopathy GREGORY cirrhosis constipation Morbid obesity - discussed dietary changes and to continue to be active Condition on Discharge: Fair Activity: Resume your previous activity Weightbearing: Full weightbearing Non-emergency contact: Primary Care Provider and [employer]her 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 You have GREGORY Cirrhosis which is Nonalcoholic Fatty liver disease that progressed to cirrhosis. You were treated with lactulose and eventually had greater than 2 loose BMs daily and your ammonia levels returned to baseline. You will need to remain on a low sodium diet and also remain on the lactulose. You may need to adjust the dose to maintain 2-4 loose BMs daily. 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 You also should follow up with your family doctor in 1-2 weeks. Your lisinopril was held on admission and this can be resumed at discharge also you were restarted back on your lasix 40mg one time per day and spironolactone 25 mg daily. You also had a cough during this admission and CXR was negative for pneumonia or infection and testing was negative for influenza, RSV and Covid. You did not require any oxygen and remained stable jus on room air. Pending Studies at Discharge: No Stand-Alone Forms: My [facility] Medications and DC Order Prescriptions: New lactulose 20 gram/30 mL Solution 30 g PO BID 30 Days Qty: 2700 0RF furosemide [Lasix] 40 mg tablet 40 mg PO DAILY Qty: 30 0RF Continued atorvastatin 10 mg tablet 10 mg PO HS Qty: 90 3RF glimepiride 1 mg tablet 1 mg PO BID Qty: 180 3RF acetaminophen 325 mg tablet 650 mg PO Q4H PRN (Reason: fever or pain) Qty: 30 0RF levothyroxine 50 mcg tablet 50 mcg PO DAILY Qty: 90 3RF magnesium chloride 64 mg tablet,delayed release (DR/EC) 128 mg PO TID Qty: 540 3RF lisinopril 10 mg tablet 10 mg PO DAILY nystatin 100,000 unit/gram powder 1 applic topical TID PRN (Reason: rash) Qty: 60 5RF spironolactone 25 mg tablet 25 mg PO DAILY Qty: 30 5RF coenzyme Q10 200 mg capsule 200 mg PO DAILY sodium chloride 1 gram tablet 1,000 mg PO DAILY Qty: 90 1RF docusate sodium 100 mg Capsule 100 mg PO BID PRN (Reason: Constipation) cholecalciferol (vitamin D3) [Vitamin D3] 2,000 unit Capsule 2,000 unit PO QAM multivitamin Tablet 1 tab PO QAM vitamin E 400 unit capsule 400 unit PO QAM metformin 500 mg tablet 500 mg PO DAILY famotidine 20 mg tablet 20 mg PO BID PRN (Reason: Heartburn) polyethylene glycol 3350 [Miralax] 17 gram powder in packet 17 g PO DAILY PRN (Reason: Constipation) ondansetron 4 mg tablet,disintegrating 4 mg PO Q6H PRN (Reason: nausea and vomiting) Qty: 14 0RF Discontinued furosemide 40 mg tablet 40 mg PO BID Qty: 180 3RF Rx Instructions: morning and afternoon furosemide [Lasix] 40 mg tablet 40 mg PO DAILY Qty: 30 0RF Discharge Orders: Discharge Order (Routine); Ordered 08/09/22 Ordered By: Fabiola Nuñez Admission Data Admit Date/Time: 08/07/22 08:06 Attending Provider: Jay Horvath Admit Provider: Joni Hopkins Primary Care Provider: Franko Monk Other Providers: Viviana Ibarra Other Interventions: Discharge Summary Assessment (RN) Last Done: 08/09/22 15:34 Supervising Physician Co-Signing Physician Notes I personally saw and examined the patient. I verified all almanzar points and agree with Ratna Nuñez PA-C with the following exceptions and/or additions: 76 year old re-admission for fatigue, generalized weakness, nausea. She was admitted for hepatic encephalopathy. Patient improved with lactulose. Will continue as above. Coding Level of Care Code HOSP INP/OBS DISCH >30 MIN Diagnoses Hepatic encephalopathy K76.82 Liver cirrhosis K74.60 Ascites presence: without ascites Hepatic cirrhosis type: unspecified hepatic cirrhosis EMY (acute kidney injury) N17.9 Lactate blood increase R79.89 Weakness R53.1 Elevated troponin I level R77.8 Cough R05.1 Cough type: acute Vomiting and diarrhea R11.10; R19.7 Hypomagnesemia E83.42 Hypertension I10 Aortic stenosis I35.0 ROSALES (obstructive sleep apnea) G47.33 Hypercholesterolemia E78.00 Diabetes mellitus with peripheral vascular disease E11.51 GERD (gastroesophageal reflux disease) K21.9 Monoclonal gammopathy D47.2 Thrombocytopenia D69.6 BMI greater than 40 Time Spent (min) 40
[2022-08-09] MEDS ORDERED: LACTULOSE SYRUP 30 GM/45 ML UDP PO SCH (21:00)
== END 2022-08-09 16:05 | disposition home or self-care (01) | DRG 442 ==
LOC: ED 06:37 → EDINP 06:37 → SUATTDRO 10:33 → 3N 13:52

== ENCOUNTER 2022-08-12 22:15 | Inpatient (IN) ==
[2022-08-12 23:55] LABS: Albumin Globulin Ratio 0.5 (0.9-2); Albumin Level 2.5 gm/dl (3.4-5.0); BUN Creatinine Ratio 21.2 (10-20); Bilirubin,Total 0.7 mg/dl (0.2-1.0); Calcium 9.1 mg/dl (8.5-10.1); Creatinine Clr Calc Pharmacy 26.5 ml/min; Est GFR (African American) 26.5 ml/min; Est GFR (Non-African American) 22.9 ml/min; Globulin 4.7 gm/dl (2.5-4.0); Potassium 4.6 mmol/L (3.5-5.1); Total Protein 7.2 gm/dl (6.0-8.3)
[2022-08-13 00:05] LABS: Basophils # (auto) 0.03 K/uL (0-0.2); Basophils % (auto) 0.2 %; Hematocrit (blood only) 31.6 % (34.1-44.9); Hemoglobin 10.3 g/dl (12.0-16.0); Immature Granulocytes # (auto) 0.36 K/uL (0.00-0.02); Immature Granulocytes % (auto) 1.9 %; Lymphocytes % (auto) 5.4 %; Mean Corpuscular Hemoglobin 27.5 pg (25.0-34.0); Mean Corpuscular Hgb Conc 32.6 g/dL (32.0-36.0); Mean Corpuscular Volume 84.3 fL (80.0-100.0); Mean Platelet Volume 11.3 fL (9.4-12.3); Monocytes # (auto) 1.07 K/uL (0.24-0.82); Monocytes % (auto) 5.8 %; Neutrophils # (auto) 16.04 K/uL (1.4-6.5); Neutrophils % (auto) 86.7 %; Platelet Count 98 K/uL (130-400); RDW Coefficient of Variation 16.3 % (11.5-14.5); RDW Standard Deviation 49.8 fL (36.4-46.3); Red Blood Count 3.75 M/uL (3.93-5.22)
[2022-08-13] MEDS ORDERED: PIPERACILLIN/TAZOBACTAM 3.375 GM in DEXTROSE 5% 100 ML/100 ML BAG IV STA (00:57)
[2022-08-13] MEDS ORDERED: fentaNYL citrate 100 MCG/2 ML VIAL IV STA (00:57)
--- NOTE | 2022-08-13 01:13 | Emergency Department Note ---
History of Present Illness General Chief complaint: Back Injury/Pain Stated complaint: BREATHING DIFFICULTY/CHRONIC BACK Time Seen by Provider: 08/13/22 00:42 History of Present Illness Maximum Pain Intensity: 8 Home Medications Medication Instructions Recorded Confirmed Type cholecalciferol (vitamin D3) 50 2,000 unit PO QAM 07/01/18 08/13/22 History mcg (2,000 unit) capsule (Vitamin D3) docusate sodium 100 mg capsule 100 mg PO BID PRN Constipation 07/01/18 08/13/22 History multivitamin 1 tab PO QAM 10/14/19 08/13/22 History vitamin E 268 mg (400 unit) capsule 400 unit PO QAM 08/14/20 08/13/22 History atorvastatin 10 mg tablet 10 mg PO HS #90 tabs 08/12/21 08/13/22 Rx glimepiride 1 mg tablet 1 mg PO BID #180 tabs 08/12/21 08/13/22 Rx coenzyme Q10 200 mg capsule 200 mg PO DAILY 11/01/21 08/13/22 History acetaminophen 325 mg tablet 650 mg PO Q4H PRN fever or pain 03/23/22 08/13/22 Rx #30 tabs famotidine 20 mg tablet 20 mg PO BID PRN Heartburn 04/05/22 08/13/22 History polyethylene glycol 3350 17 gram 17 g PO DAILY PRN Constipation 04/05/22 08/13/22 History oral powder packet (Miralax) levothyroxine 50 mcg tablet 50 mcg PO DAILY #90 tabs 04/12/22 08/13/22 Rx lisinopril 10 mg tablet 10 mg PO DAILY 04/25/22 08/13/22 History metformin 500 mg tablet 500 mg PO DAILY 04/25/22 08/13/22 History sodium chloride 1 gram tablet 1,000 mg PO DAILY #90 tabs 07/11/22 08/13/22 Rx nystatin 100,000 unit/gram topical 1 applic topical TID PRN rash #60 07/20/22 08/13/22 Rx powder grams spironolactone 25 mg tablet 25 mg PO DAILY #30 tabs 07/20/22 08/13/22 Rx magnesium chloride 64 mg 128 mg PO TID #540 tabs 07/27/22 08/13/22 Rx (magnesium chloride) tablet,delayed release ondansetron 4 mg disintegrating 4 mg PO Q6H PRN nausea and 08/01/22 08/13/22 Rx tablet vomiting #14 tabs furosemide 40 mg tablet (Lasix) 40 mg PO DAILY #30 tabs 08/09/22 08/13/22 Rx lactulose 20 gram/30 mL oral 30 g (45 mL) PO BID 30 days #2,700 08/09/22 08/13/22 Rx solution mL Allergies Allergy/AdvReac Type Severity Reaction Status Date / Time No Known Allergies Allergy Verified 08/11/22 15:01 Past Med/Surg History Medical History Acute DVT (deep venous thrombosis) 2019> no known cause > Filter to right groin EMY (acute kidney injury) Anemia 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 Chronic back pain Chronic deep vein thrombosis (DVT) 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 to alcohol Cough Diabetes NIDDM Diverticular hemorrhage resolved DVT (deep venous thrombosis) Elevated troponin I level Esophageal varices determined by endoscopy Fatty liver Fever GERD (gastroesophageal reflux disease) GI bleed none at present Hepatic encephalopathy Hyperlipemia Hypertension Hypomagnesemia Hypomagnesemia Hyponatremia Lactate blood increase Liver cirrhosis Lower leg edema Migraine Monoclonal gammopathy Obesity Osteoarthritis Presence of IVC filter Proteinuria Pulmonary embolism 2019 > no known cause > Filter to right groin Thrombocytopenia Vertigo Vomiting and diarrhea Weakness Wheezing Surgical History History of bilateral breast reduction surgery History of bilateral cataract extraction History of carpal tunnel release of both wrists History of section x3 History of colonoscopy History of dilatation and curettage History of esophagogastroduodenoscopy (EGD) History of laparoscopic cholecystectomy History of lumbar spinal fusion hardware in place History of tonsillectomy History of tooth extraction all teeth History of total left knee replacement (TKR) History of total right knee replacement (TKR) Family History Mother Family history of diabetes mellitus Brother Family history of diabetes mellitus 3 brothers Colorectal cancer Myocardial infarction x 2 Father Myocardial infarction Denies family history of Ovarian cancer Prostate cancer Breast cancer Social History Smoking Status: Former smoker Tobacco Type: Cigarettes Age Started Using Tobacco: 15; Age Quit Using Tobacco: 21; Cigarettes Per Day: 1 Pack; Second Hand Exposure: No; Hx Alcohol Use: No Hx Substance Use: No Preferred Language: Lithuanian Communication Ability: Effective Visual Impairment: Limited Hearing Ability: Normal 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 Beliefs That Will Affect Care: None marital status: / Current Living Situation: Other Current Living Situation Comment: son lives with her current occupational status: retired How many Children do You have: 3 Feels Safe at Home: Yes Childhood Exposure to Second-Hand Smoke: Yes caffeine: Yes (tea) during the past year weight has: remained stable Dental Care, Regularly: No Physical Activity Frequency: Does not Exercise Seatbelt Use: always Sunscreen Use: No Do you think of yourself as: straight/heterosexual Gender Identity: Female Assistive Devices: Walker Review of Systems A total of 10 systems reviewed and were otherwise negative Respiratory: + dyspnea; no cough Cardiovascular: + chest pain Physical Exam Vital Signs Vital Signs - 24 hr 08/12/22 22:28 08/13/22 00:44 Temperature 36.8 C Temperature Source Oral Pulse Rate 92 H Pulse Rate [Apical] 78 Pulse Rhythm Regular Pulse Strength Normal Respiratory Rate 20 18 Respiratory Effort / Characteristics Non-Labored Spontaneous Non-Labored Spontaneous Respiratory Depth Normal Normal Respiratory Pattern Regular Blood Pressure 113/70 Blood Pressure [Right Arm] 114/55 L Blood Pressure Mean 84 Blood Pressure Mean [Right Arm] 74 Blood Pressure Position Lying Blood Pressure Position [Right Arm] Lying Pulse Oximetry 93 96 Oxygen Delivery Method Nasal Cannula Nasal Cannula Oxygen Flow Rate 2 2 Sepsis Recent Fever Within 48 Hours No Sepsis New/Unexplained Change in Mental Status N/A Sepsis Action Taken by Nursing No Action Required GENERAL: Patient is awake alert in no acute distress patient is resting comfort ably and showing no signs of anxiety EYES: The conjunctivae are clear. The pupils are round and reactive. EARS, NOSE, MOUTH AND THROAT: The nose is without any evidence of any deformity. Mucous membranes are moist. Tongue is midline. NECK: The neck is nontender and supple. RESPIRATORY: Normal respiratory effort is noted there is no evidence of wheezing rhonchi or rales CARDIOVASCULAR: Regular rate and rhythm noted there no murmurs rubs or gallops normal S1 normal S2. GASTROINTESTINAL: The abdomen is soft. Abdomen is nontender. BACK: No midline tenderness or or step-off noted range of motion in flexion extension as well as rotation no signs of muscle spasm noted MUSCULOSKELETAL/EXTREMITIES: There is no evidence of gross deformity full range of motion is noted in the hips and shoulders. SKIN: Skin rash right leg; lymphedema right lower extremity NEUROLOGIC: Patient is awake alert and oriented x3 strength is symmetric patellar reflexes are 2+ bilaterally Course Reevaluation(s) Reevaluation #1: Patient was given IV opiates, started on IV Zosyn, plan is to admit. Time: 02:08 Consultations Consultation #1: Spoke with the [facility]ist for admission, agrees to admit inde isiah Time: 02:08 Administered Medications Discontinued Medications Fentanyl Citrate (Fentanyl Citrate 100 Mcg/2 Ml Vial) 50 mcg IV NOW STA Stop: 08/13/22 00:58 Last Admin: 08/13/22 01:02 Dose: 50 mcg Documented By: CHRIS Piperacillin Sod/Tazobactam (Sod 3.375 gm/ Dextrose) 100 ml in 115 mls @ 230 mls/hr IV NOW STA Stop: 08/13/22 01:26 Last Infusion: 08/13/22 01:55 Dose: 0 mls/hr Documented By: Admin: 08/13/22 01:19 Dose: 230 mls/hr Documented By: CHRIS Medical Decision Making Medical Records Attestation: I reviewed the patient's medical records. Home Medications Current Medication List: was personally reviewed by me Laboratory Data Attestation: I reviewed the patient's lab results. Patient has a leukocytosis, patient has elevated creatinine 08/12/22 22:37 08/12/22 22:37 Lab Results 08/12/22 08/12/22 08/12/22 Range/Units 01:18 22:37 22:37 WBC 18.50 H (4.8-10.8) K/ul RBC 3.75 L (3.93-5.22) M/uL Hgb 10.3 L (12.0-16.0) g/dl Hct 31.6 L (34.1-44.9) % MCV 84.3 (80.0-100.0) fL MCH 27.5 (25.0-34.0) pg MCHC 32.6 (32.0-36.0) g/dL RDW Std Deviation 49.8 H (36.4-46.3) fL RDW Coeff of Leah 16.3 H (11.5-14.5) % Plt Count 98 L (130-400) K/uL MPV 11.3 (9.4-12.3) fL Immature Gran % (Auto) 1.9 % Neut % (Auto) 86.7 % Lymph % (Auto) 5.4 % [place] % (Auto) 5.8 % Eos % (Auto) 0.0 % Baso % (Auto) 0.2 % Neut # (Auto) 16.04 H (1.4-6.5) K/uL Lymph # (Auto) 1.00 L (1.2-3.4) K/uL [place] # (Auto) 1.07 H (0.24-0.82) K/uL Eos # (Auto) 0.00 (0-0.50) K/uL Baso # (Auto) 0.03 (0-0.2) K/uL Immature Gran # (Auto) 0.36 H (0.00-0.02) K/uL PT 14.6 H (9.0-12.0) Seconds INR 1.4 H (0.9-1.1) Sodium 137 (136-145) mmol/L Potassium 4.6 (3.5-5.1) mmol/L Chloride 104 (98-107) mmol/L Carbon Dioxide 25 (21-32) mmol/L Anion Gap 8 (3-11) BUN 43 H (6-23) mg/dl Creatinine 2.03 H (0.6-1.2) mg/dl Est Cr Clr Drug Dosing 26.5 ml/min Est GFR ( Amer) 26.5 ml/min Est GFR (Non-Af Amer) 22.9 ml/min BUN/Creatinine Ratio 21.2 H (10-20) Glucose 98 (70-99(Fasting)) mg/dl Lactate (0.4-2.0) mmol/L Calcium 9.1 (8.5-10.1) mg/dl Total Bilirubin 0.7 (0.2-1.0) mg/dl AST 42 H (13-39) U/L ALT 18 (7-52) U/L Alkaline Phosphatase 58 (34-104) U/L Troponin I High Sens 74.0 H* (0-14) pg/ml Total Protein 7.2 (6.0-8.3) gm/dl Albumin 2.5 L (3.4-5.0) gm/dl Globulin 4.7 H (2.5-4.0) gm/dl Albumin/Globulin Ratio 0.5 L (0.9-2) 08/13/22 Range/Units 01:18 WBC (4.8-10.8) K/ul RBC (3.93-5.22) M/uL Hgb (12.0-16.0) g/dl Hct (34.1-44.9) % MCV (80.0-100.0) fL MCH (25.0-34.0) pg MCHC (32.0-36.0) g/dL RDW Std Deviation (36.4-46.3) fL RDW Coeff of Leah (11.5-14.5) % Plt Count (130-400) K/uL MPV (9.4-12.3) fL Immature Gran % (Auto) % Neut % (Auto) % Lymph % (Auto) % [place] % (Auto) % Eos % (Auto) % Baso % (Auto) % Neut # (Auto) (1.4-6.5) K/uL Lymph # (Auto) (1.2-3.4) K/uL [place] # (Auto) (0.24-0.82) K/uL Eos # (Auto) (0-0.50) K/uL Baso # (Auto) (0-0.2) K/uL Immature Gran # (Auto) (0.00-0.02) K/uL PT (9.0-12.0) Seconds INR (0.9-1.1) Sodium (136-145) mmol/L Potassium (3.5-5.1) mmol/L Chloride (98-107) mmol/L Carbon Dioxide (21-32) mmol/L Anion Gap (3-11) BUN (6-23) mg/dl Creatinine (0.6-1.2) mg/dl Est Cr Clr Drug Dosing ml/min Est GFR ( Amer) ml/min Est GFR (Non-Af Amer) ml/min BUN/Creatinine Ratio (10-20) Glucose (70-99(Fasting)) mg/dl Lactate 3.5 H* (0.4-2.0) mmol/L Calcium (8.5-10.1) mg/dl Total Bilirubin (0.2-1.0) mg/dl AST (13-39) U/L ALT (7-52) U/L Alkaline Phosphatase (34-104) U/L Troponin I High Sens (0-14) pg/ml Total Protein (6.0-8.3) gm/dl Albumin (3.4-5.0) gm/dl Globulin (2.5-4.0) gm/dl Albumin/Globulin Ratio (0.9-2) Imaging Data Attestation: I personally reviewed and interpreted this imaging study as follows: ECG Data Attestation: I personally reviewed and interpreted this ECG as follows: Additional Comments: EKG interpreted by me normal sinus rhythm rate of 91 right bundle branch block left anterior hemiblock left axis deviation no obvious ST segment elevation or depression prior is unchanged MDM Narrative Medical decision making differential diagnosis includes pneumonia pleurisy CHF cellulitis DVT PE chronic pain. Plan is to check labs EKG chest x-ray, give IV antibiotics IV opiates Nursing notes are appreciated by me External medical records regarding the patient's admission with the hospitalist team were reviewed by me Patient has chronic DVT is on antielation may have a pneumonia is not septic shock has leukocytosis patient was given IV opiates. Case was discussed with the [facility] hospitalist for admission agreeable to admit inpatient Impression & Plan Chest pain, Leukocytosis, CKD (chronic kidney disease) Discharge Plan Visit Data Chief Complaint: Back Injury/Pain Stated Complaint: BREATHING DIFFICULTY/CHRONIC BACK ED Provider: Med Estes Discharge Problem: Chest pain, Leukocytosis, CKD (chronic kidney disease) Patient Disposition: Admitted As Inpatient Forms Stand Alone Forms: My [facility] Prescriptions Prescriptions: No Action atorvastatin 10 mg tablet 10 mg PO HS Qty: 90 3RF glimepiride 1 mg tablet 1 mg PO BID Qty: 180 3RF acetaminophen 325 mg tablet 650 mg PO Q4H PRN (Reason: fever or pain) Qty: 30 0RF levothyroxine 50 mcg tablet 50 mcg PO DAILY Qty: 90 3RF magnesium chloride 64 mg tablet,delayed release (DR/EC) 128 mg PO TID Qty: 540 3RF lisinopril 10 mg tablet 10 mg PO DAILY nystatin 100,000 unit/gram powder 1 applic topical TID PRN (Reason: rash) Qty: 60 5RF spironolactone 25 mg tablet 25 mg PO DAILY Qty: 30 5RF coenzyme Q10 200 mg capsule 200 mg PO DAILY sodium chloride 1 gram tablet 1,000 mg PO DAILY Qty: 90 1RF docusate sodium 100 mg Capsule 100 mg PO BID PRN (Reason: Constipation) cholecalciferol (vitamin D3) [Vitamin D3] 2,000 unit Capsule 2,000 unit PO QAM multivitamin Tablet 1 tab PO QAM vitamin E 400 unit capsule 400 unit PO QAM metformin 500 mg tablet 500 mg PO DAILY lactulose 20 gram/30 mL Solution 30 g PO BID 30 Days Qty: 2700 0RF furosemide [Lasix] 40 mg tablet 40 mg PO DAILY Qty: 30 0RF famotidine 20 mg tablet 20 mg PO BID PRN (Reason: Heartburn) polyethylene glycol 3350 [Miralax] 17 gram powder in packet 17 g PO DAILY PRN (Reason: Constipation) ondansetron 4 mg tablet,disintegrating 4 mg PO Q6H PRN (Reason: nausea and vomiting) Qty: 14 0RF Referrals Referrals: Franko Monk DO [Primary Care Provider] -
[2022-08-13 01:37] LABS: INR 1.4 (0.9-1.1); Prothrombin Time 14.6 Seconds (9.0-12.0)
--- NOTE | 2022-08-13 02:50 | History & Physical Report ---
Date of Service August 13, 2022 Assessment & Plan (1) Chest pain: Plan: 76 yo F with PMH HTN, chronic DVT with IVC filter, aortic stenosis, HFpEF, MGUS, cirrhosis, DM2, HLD, ROSALES on CPAP, chronic back pain w/ history of lumbar stenosis s/p surgery with multiple recent hospitalizations admitted for chest pain. Acute on chronic HFpEF -Echocardiogram 07/2022- EF 55-60% -CXR with significant vascular congestion and pulmonary edema -Suspect incomplete diuresis and potentially poor PO Lasix absorption from CHF over past hospitalization -Lasix 40 mg IV BID ordered -Lynn catheter, UOP, daily weights, I's/O's -BNP pending -Trend CMP Elevated lactate with leukocytosis -Lactate 3.5 with WBC 18.5 on admission, BP -Lower suspicion for acute infection at present but will continue empiric Zosyn for now given her multiple recent hospitalizations and labwork as above -Trend CBC, lactate, procalcitonin ordered, BCx pending -Will likely discontinue antibiotics once preliminary BCx negative or sooner if labs assuring and pt remains clinically stable Elevated troponin and chest pain -Troponin 74, was 32 approximately 1 week prior -EKG without acute ST change -Suspect her chest pain and elevated troponin likely due to CHF exacerbation- induced demand ischemia -Continue to trend troponin to peak Acute kidney injury in setting of CKD3 -Cr 2 on admission, baseline around 1 -Suspect likely due to poor forward flow with CHF exacerbation -Diuresing as above -Trend CMP Back pain -Pt does have chronic back pain, suspect current pain largely due to such history and morbid obesity -Tylenol PRN -Deferring imaging at present Cirrhosis -Continue lactulose -Holding spironolactone given low BP and diuresing with Lasix, will resume as BP tolerates -No concern for hepatic encephalopathy or liver failure at present -Trend CMP Thrombocytopenia -Plts 98 on admission -Does appear chronic and at baseline, likely due to liver cirrhosis -Trend CBC DM2 -Holding home glimepiride, metformin -Lantus 5u BID, SSI ordered HTN -Holding home lisinopril for EMY ROSALES -CPAP nightly HLD -Continue atorvastatin 10 mg Hypothyroidism -Continue levothyroxine FENGI: Low-salt, fluid restriction 1500 mls Code status: DNR DVT ppx: SCDs, deferring chemical prophylaxis given thrombocytopenia Isolation: None Dispo: PT/OT ordered, anticipate need for rehab (2) CKD (chronic kidney disease): (3) Back pain: (4) Diabetes mellitus with peripheral vascular disease: History of Present Illness Chief Complaint: Chest pain, back pain Primary Care Provider: Franko Monk, DO 76 yo F with PMH HTN, chronic DVT with IVC filter, aortic stenosis, HFpEF, MGUS, cirrhosis, DM2, HLD, ROSALES on CPAP, chronic back pain w/ history of lumbar stenosis s/p surgery with multiple recent hospitalizations admitted for chest pain. Pt admitted at [facility] from 07/28-08/01 for LGIB attributed to diverticular bleed. Her Eliquis was discontinued on discharge. She was discharged on Lasix 40 mg daily due to concern for hypervolemia with resulting echocardiogram with EF 55-60%. She returned to [facility] for hospitalization from 08/04 - 08/09 for metabolic encephalopathy, EMY. Pt arrived to ED hemodynamically stable, was started on 2L NC O2. ED labs significant for WBC 18.5, Hgb 10.3, Plts 98, Cr 2 (baseline around 1), lactate 3.5, troponin 74, EKG with NSR and RBBB and no ST change, CXR with cardiomegaly, vascular congestion and pulmonary edema. She was treated with fentanyl for pain and Zosyn empirically. Pt reports fatigue has continued since discharge. This afternoon, she began to experience severe 8/10, sharp, midsternal chest pain associated with increased dyspnea. She also reports central middle back pain which is similar to her usual back pain. She denies any radiation of pain. Denies fever, chills, nausea, vomiting, headache. Allergies Allergy/AdvReac Type Severity Reaction Status Date / Time No Known Allergies Allergy Verified 08/11/22 15:01 Home Medications Medication Instructions Recorded Confirmed Type cholecalciferol (vitamin D3) 50 2,000 unit PO QAM 07/01/18 08/13/22 History mcg (2,000 unit) capsule (Vitamin D3) docusate sodium 100 mg capsule 100 mg PO BID PRN Constipation 07/01/18 08/13/22 History multivitamin 1 tab PO QAM 10/13/08/13/22 History vitamin E 268 mg (400 unit) capsule 400 unit PO QAM 08/14/20 08/13/22 History atorvastatin 10 mg tablet 10 mg PO HS #90 tabs 08/12/21 08/13/22 Rx glimepiride 1 mg tablet 1 mg PO BID #180 tabs 08/12/21 08/13/22 Rx coenzyme Q10 200 mg capsule 200 mg PO DAILY 11/01/21 08/13/22 History acetaminophen 325 mg tablet 650 mg PO Q4H PRN fever or pain 03/23/22 08/13/22 Rx #30 tabs famotidine 20 mg tablet 20 mg PO BID PRN Heartburn 04/05/22 08/13/22 History polyethylene glycol 3350 17 gram 17 g PO DAILY PRN Constipation 04/05/22 08/13/22 History oral powder packet (Miralax) levothyroxine 50 mcg tablet 50 mcg PO DAILY #90 tabs 04/12/22 08/13/22 Rx lisinopril 10 mg tablet 10 mg PO DAILY 04/25/22 08/13/22 History metformin 500 mg tablet 500 mg PO DAILY 04/25/22 08/13/22 History sodium chloride 1 gram tablet 1,000 mg PO DAILY #90 tabs 07/11/22 08/13/22 Rx nystatin 100,000 unit/gram topical 1 applic topical TID PRN rash #60 07/20/22 08/13/22 Rx powder grams spironolactone 25 mg tablet 25 mg PO DAILY #30 tabs 07/20/22 08/13/22 Rx magnesium chloride 64 mg 128 mg PO TID #540 tabs 07/27/22 08/13/22 Rx (magnesium chloride) tablet,delayed release ondansetron 4 mg disintegrating 4 mg PO Q6H PRN nausea and 08/01/22 08/13/22 Rx tablet vomiting #14 tabs furosemide 40 mg tablet (Lasix) 40 mg PO DAILY #30 tabs 08/09/22 08/13/22 Rx lactulose 20 gram/30 mL oral 30 g (45 mL) PO BID 30 days #2,700 08/09/22 08/13/22 Rx solution mL Past Med/Surg History Medical History Acute DVT (deep venous thrombosis) 2019> no known cause > Filter to right groin EMY (acute kidney injury) Anemia 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 Chronic back pain Chronic deep vein thrombosis (DVT) 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 to alcohol Cough Diabetes NIDDM Diverticular hemorrhage resolved DVT (deep venous thrombosis) Elevated troponin I level Esophageal varices determined by endoscopy Fatty liver Fever GERD (gastroesophageal reflux disease) GI bleed none at present Hepatic encephalopathy Hyperlipemia Hypertension Hypomagnesemia Hypomagnesemia Hyponatremia Lactate blood increase Liver cirrhosis Lower leg edema Migraine Monoclonal gammopathy Obesity Osteoarthritis Presence of IVC filter Proteinuria Pulmonary embolism 2019 > no known cause > Filter to right groin Thrombocytopenia Vertigo Vomiting and diarrhea Weakness Wheezing Surgical History History of bilateral breast reduction surgery History of bilateral cataract extraction History of carpal tunnel release of both wrists History of section x3 History of colonoscopy History of dilatation and curettage History of esophagogastroduodenoscopy (EGD) History of laparoscopic cholecystectomy History of lumbar spinal fusion hardware in place History of tonsillectomy History of tooth extraction all teeth History of total left knee replacement (TKR) History of total right knee replacement (TKR) Family History Mother Family history of diabetes mellitus Brother Family history of diabetes mellitus 3 brothers Colorectal cancer Myocardial infarction x 2 Father Myocardial infarction Denies family history of Ovarian cancer Prostate cancer Breast cancer Social History Smoking Status: Former smoker Tobacco Type: Cigarettes Age Started Using Tobacco: 15; Age Quit Using Tobacco: 21; Cigarettes Per Day: stopped 55 years ago; Second Hand Exposure: No; Hx Alcohol Use: No Hx Substance Use: No Preferred Language: Malian Communication Ability: Effective Visual Impairment: Limited Hearing Ability: Normal 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 Plant 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: No Beliefs That Will Affect Care: None marital status: / Current Living Situation: Family Current Living Situation Comment: lives with son current occupational status: retired How many Children do You have: 3 Other Information That Helps Us Care for You: No Feels Safe at Home: Yes Safety Concerns: Feels Safe At This Time Childhood Exposure to Second-Hand Smoke: Yes caffeine: Yes (tea) during the past year weight has: remained stable Dental Care, Regularly: No Physical Activity Frequency: Does not Exercise Seatbelt Use: always Sunscreen Use: No Do you think of yourself as: straight/heterosexual Gender Identity: Female Assistive Devices: Denture - Upper, Denture - Lower, Glasses and Walker Review of Systems Review of Systems: Per HPI Physical Exam Physical Exam: General: moderate distress, obese HEENT: No overt JVD although difficult to appreciate with body habitus, moist mucous membranes CV: RRR, +systolic murmur over LUSB, normal S1 and S2 Resp: diminished breath sounds with bibasilar crackles, some increased work of breathing Abd: soft, distended, nontender Ext: +2 pitting edema up to knees b/l, weak dorsalis pedis pulses b/l MSK: difficult to perform full exam given pt's debility and pain with movement Neuro: AOx3, no gross focal motor deficits Results & Data Results & Data ([facility]) Vital Signs (Past 12 Hours) Vital Signs Temp Pulse Pulse Resp BP BP Pulse Ox 08/13/22 02:41 78 18 107/54 L 97 08/13/22 00:44 78 18 114/55 L 96 08/12/22 22:28 36.8 C 92 H 20 113/70 93 O2 Del Method O2 Flow Rate 08/13/22 02:41 Nasal Cannula 2 08/13/22 00:44 Nasal Cannula 2 08/12/22 22:28 Nasal Cannula 2 Supervising Physician Co-Signing Physician Notes Attending addendum: I have physically seen this patient, have supervised the medical residents activities, and agree with the H&P unless as otherwise noted. Assessment and Plan: Chest pain- Combination of pneumonia and worsening HFpEF Nasal cannula oxygen, titrate to pulse ox 94-95% Acute on chronic HFpEF/elevated troponin- Last echocardiogram 08/15 with ejection fraction 55-60% Lasix 40 mg IV twice daily Lynn catheter troponin 74, with most recent 30 to 1-week ago The patient will be admitted to telemetry for serial cardiac enzymes, serial EKG's, cardiac rhythm monitoring Follow serial CMP and magnesium levels Pneumonia/respiratory infection- Cefepime 2 g IV every 12 hours Guaifenesin extended release 12 mg p.o. twice daily DuoNebs every 2 hours as needed Remaining orders and notations as noted Resident Activity Tracking Resident Involvement: Resident Care Provided Care Provided: Adult [facility] Medicine
[2022-08-13] MEDS ORDERED: FUROSEMIDE 40 MG/4 ML VIAL IV ONE (03:22)
[2022-08-13] MEDS ORDERED: GLUCOSE 40% GEL 15 GM TUBE PO PRN (05:12)
[2022-08-13] MEDS ORDERED: GLUCOSE 10 TAB/TUBE PO PRN (05:12)
[2022-08-13] MEDS ORDERED: POLYETHYLENE (MIRALAX) 17 GM PACK PO PRN (05:12)
[2022-08-13] MEDS ORDERED: DOCUSATE SODIUM 100 MG CAP PO PRN (05:12)
[2022-08-13] MEDS ORDERED: FAMOTIDINE 20 MG TAB PO PRN (05:12)
[2022-08-13] MEDS ORDERED: ONDANSETRON 4 MG OD TAB PO PRN (05:12)
[2022-08-13] MEDS ORDERED: ACETAMINOPHEN 325 MG TAB PO PRN ×2 (05:12)
[2022-08-13] MEDS ORDERED: GLUCAGON FOR INJ 1 MG VIAL SQ PRN (05:12)
[2022-08-13 05:30] LABS: Appearance Urine Turbid (Clear); Bacteria Urine Automated 1+ (Negative); Blood Urine Trace (Negative); Color Urine Dark Yellow; Epithelial Cell Urine Auto >30 /lpf (0-5); Glucose Urine UA Negative (Negative); Ketones Urine Trace (Negative); Leukocyte Esterase Urine 1+ (Negative); Nitrite Urine Positive (Negative); Protein Urine 3+ (Negative); Specific Gravity Urine 1.027 (1.000-1.030); Urobilinogen Urine Negative (Negative); WBC Urine Automated >30 /hpf (0-5)
[2022-08-13 05:36] LABS: Bilirubin Urine 1+ (Negative)
[2022-08-13] MEDS ORDERED: ACETAMINOPHEN 1,000 MG/100 ML VIAL IV STA (05:50)
[2022-08-13] MEDS: LEVOTHYROXINE SODIUM 50 MCG TABLET PO SCH ×2 (06:45→06:47)
--- NOTE | 2022-08-13 06:48 | Hospitalist Progress Note ---
Date of Service August 13, 2022 Assessment & Plan (1) Sepsis: (2) Chest pain: Plan: 76 yo F with PMH HTN, chronic DVT with IVC filter, aortic stenosis, HFpEF, MGUS, cirrhosis, DM2, HLD, ROSALES on CPAP, chronic back pain w/ history of lumbar stenosis s/p surgery with multiple recent hospitalizations admitted for chest pain. Sepsis secondary to pneumonia with Strep Bacteremia - CXR with opacity concerning for pneumonia - Leukocytosis to 16, Procal= 28.12, CRP= 18 - Blood cultures are growing strep - Continue Zosyn - TTE ordered given gram + bacteremia - Consider ID consult pending final susceptibilities - Repeat blood cultures HFpEF -CXR with significant vascular congestion and pulmonary edema -Echocardiogram 07/2022- EF 55-60% - Will hold Lasix as she appears dry on exam; will slowly give some fluid in 250ml bolus increments -Lynn catheter, UOP, daily weights, I's/O's Nausea/Abdominal Pain - KUB with Mild gaseous distention of the large and small bowel which may represent ileus, less likely partial obstruction - Is passing gas, no BM today - Continue Zofran prn for nausea and Tylenol prn for pain - Both pain and nausea have improved throughout the day today Elevated troponin and chest pain -Troponin 74, was 32 approximately 1 week prior likely secondary to demand ischemia - She describes her chest pain as pleuritic, likely secondary to pneumonia -EKG without acute ST change - Will trend troponin to peak Acute kidney injury in setting of CKD3 -Cr 2 on admission, baseline around 1 -Suspect secondary to hypovolemia -Trend CMP Back pain -Pt does have chronic back pain, suspect current pain largely due to such history and morbid obesity -Tylenol PRN -Deferring imaging at present Cirrhosis -Continue lactulose -Holding spironolactone given low BP, will resume as BP tolerates -No concern for hepatic encephalopathy or liver failure at present -Trend CMP Thrombocytopenia -Plts 98 on admission -Does appear chronic and at baseline, likely due to liver cirrhosis -Trend CBC DM2 -Holding home glimepiride, metformin -Hold Lantus 5u BID until she is tolerating better PO intake, SSI ordered HTN -Holding home lisinopril for EMY ROSALES -CPAP nightly HLD -Continue atorvastatin 10 mg Hypothyroidism -Continue levothyroxine Code status: DNR DVT ppx: SCDs, deferring chemical prophylaxis given thrombocytopenia Isolation: None Dispo: PT/OT ordered, anticipate need for rehab (3) CKD (chronic kidney disease): (4) Back pain: (5) Diabetes mellitus with peripheral vascular disease: (6) Streptococcal bacteremia: (7) Pneumonia: Admission and Anticipated Discharge Date Admission Date: August 13, 2022 Supervising Physician Co-Signing Physician Notes I personally examined the patient and verified all almanzar points of history and exam, discussed case, and agree with decision making with Dr Lucia. Seen twice, but the first time phlebotomy with her, second time she was sleeping comfortably after having had quite a bit of nausea. Discussed with Dr. Lucia extensively, chart reviewed extensively as well. Vitals noted, breathing unlabored. Resting comfortably whenever I see her the second time. No accessory muscle use. Skin without rashes pallor or icterus. Sepsis due to strep bacteremialikely subsequent to pneumonia. There is also difficulty assessing her volume status, and she appeared clinically most likely volume overloaded initiallybut after further exam and findings, probably was on the dry sidebut just a very difficult volume status to assess due to her chronic cardiomegaly with HFpEF, as well as her body habitusgiving fluid boluses in small amounts and reassessingseems to be tolerating well. Continue antibiotics pending sensitivities. Given gram-positive bacteremiarepeat cultures, echo, follow closely for any new/worse bone/joint pain. Streamline antibiotics once sensitivities are back. Likely will enlist infectious disease opinion for duration of treatment/etc. once work-up is complete. Otherwise as above Subjective This morning Rosalind complains of epigastric pain and nausea. Has had a few episodes of brown emesis. Also complaining of chronic back pain. Review of Systems Review of Systems: Per HPI Physical Exam Physical Exam: General: moderate distress, obese HEENT: No overt JVD, moist mucous membranes CV: RRR, +systolic murmur over LUSB, normal S1 and S2 Resp: diminished breath sounds with bibasilar crackles,no work of breathing Abd: soft, distended, mild tenderness without rebound or guarding Ext: +1 pitting edema up to knees b/l Neuro: AOx3, no gross focal motor deficits Results & Data Results & Data ([facility]) Vital Signs (Past 12 Hours) Vital Signs Temp Pulse Pulse Resp BP BP Pulse Ox 01/21/23 06:40 80 08/13/22 05:55 113/60 08/13/22 05:00 82 28 H 89/54 L 97 08/13/22 05:24 08/13/22 04:30 76 20 111/58 L 97 08/13/22 04:18 08/13/22 02:41 78 18 107/54 L 97 08/13/22 00:44 78 18 114/55 L 96 08/12/22 22:28 36.8 C 92 H 20 113/70 93 O2 Del Method O2 Flow Rate 08/13/22 06:40 08/13/22 05:55 08/13/22 05:00 08/13/22 05:24 Nasal Cannula 2 08/13/22 04:30 Nasal Cannula 2 08/13/22 04:18 Nasal Cannula 2 08/13/22 02:41 Nasal Cannula 2 08/13/22 00:44 Nasal Cannula 2 08/12/22 22:28 Nasal Cannula 2 Resident Activity Tracking Resident Involvement: Resident Care Provided Care Provided: Adult Hospital Medicine
[2022-08-13] MEDS: DEXTROSE 50% 50 ML SYRINGE IV PRN ×3 (07:45→21:54)
[2022-08-13] MEDS: INSULIN ASPART PER UNIT SC SCH ×4 (08:11→20:30)
[2022-08-13] MEDS: PIPERACILLIN/TAZOBACTAM 3.375 GM in DEXTROSE 5% 100 ML IV SCH ×2 (08:30→16:50)
[2022-08-13] MEDS ORDERED: FUROSEMIDE 40 MG/4 ML VIAL IV SCH (09:00)
[2022-08-13] MEDS ORDERED: LANTUS PER UNIT CHARGE SQ SCH (09:00)
[2022-08-13] MEDS: LACTULOSE SYRUP 30 GM/45 ML UDP PO SCH ×2 (09:02→20:30)
[2022-08-13] MEDS: MAGNESIUM CHLORIDE W/CALCIUM 64MG DELAYED REL TAB PO SCH ×3 (09:02→20:31)
[2022-08-13 09:40] LABS: Calcium 8.9 mg/dl (8.5-10.1); Potassium 4.2 mmol/L (3.5-5.1)
[2022-08-13 09:42] LABS: Basophils # (auto) 0.05 K/uL (0-0.2); Basophils % (auto) 0.3 %; Eosinophils % (auto) 0.6 %; Hemoglobin 9.8 g/dl (12.0-16.0); Immature Granulocytes # (auto) 1.08 K/uL (0.00-0.02); Immature Granulocytes % (auto) 6.8 %; Lymphocytes # (auto) 0.36 K/uL (1.2-3.4); Lymphocytes % (auto) 2.3 %; Mean Corpuscular Hemoglobin 27.1 pg (25.0-34.0); Mean Corpuscular Hgb Conc 31.6 g/dL (32.0-36.0); Mean Corpuscular Volume 85.6 fL (80.0-100.0); Mean Platelet Volume 11.3 fL (9.4-12.3); Monocytes # (auto) 1.08 K/uL (0.24-0.82); Monocytes % (auto) 6.8 %; Neutrophils # (auto) 13.33 K/uL (1.4-6.5); Neutrophils % (auto) 83.2 %; Platelet Count 89 K/uL (130-400); RDW Coefficient of Variation 16.9 % (11.5-14.5); RDW Standard Deviation 51.7 fL (36.4-46.3); Red Blood Count 3.62 M/uL (3.93-5.22)
[2022-08-13 09:46] LABS: C Reactive Protein 18.21 mg/dl (0-0.5); Creatinine Clr Calc Pharmacy 21.7 ml/min; Est GFR (African American) 21.2 ml/min; Est GFR (Non-African American) 18.2 ml/min
--- NOTE | 2022-08-13 11:42 | XRay Report ---
XR chest 1V portable CLINICAL HISTORY: SOB TECHNIQUE: Single frontal radiograph of the chest was obtained. Comparison: Comparison is made to chest radiograph 08/06/2022 FINDINGS: No lines and tubes are seen. Cardiomegaly is noted. Prominence and cephalization of the vasculature i s seen. Left retrocardiac opacity is seen. A left pleural effusion cannot be excluded. IMPRESSION: 1. Cardiomegaly and mild pulmonary edema. 2. Left retrocardiac airspace opacity may represent atelectasis, pneumonia, and/or aspiration. ACT 112: Negative or not required by law. Electronically signed by: Cory Wolff M.D. 08/13/2022 11:39 AM
[2022-08-13] MEDS ORDERED: ONDANSETRON INJ 2 MG/ML 2 ML VIAL IV PRN (13:10)
[2022-08-13] MEDS ORDERED: ACETAMINOPHEN 1,000 MG/100 ML VIAL IV ONE (13:17)
[2022-08-13 13:21] LABS: A calco-baum cmplx NotReported Not Detected (NotDetected); Bact fragilis Not Reported Not Detected (NotDetected); C auris Not Reported Not Detected (NotDetected); Calbicans Not Reported Not Detected (NotDetected); Candida glabrata Not Reported Not Detected (NotDetected); Candida krusei Not Reported Not Detected (NotDetected); Cneoformans/gatti Not Reported Not Detected (NotDetected); Cparapsilosis Not Reported Not Detected (NotDetected); Ctropicalis Not Reported Not Detected (NotDetected); E cloacae compx Not Reported Not Detected (NotDetected); Efaecalis Not Reported Not Detected (NotDetected); Efaecium Not Reported Not Detected (NotDetected); Enterobacterales Not Reported Not Detected (NotDetected); Escherichia coli Not Reported Not Detected (NotDetected); H influenzae Not Reported Not Detected (NotDetected); K aerogenes Not Reported Not Detected (NotDetected); Koxytoca Not Reported Not Detected (NotDetected); Kpneumoniae grp Not Reported Not Detected (NotDetected); Lmonocyt Not Reported Not Detected (NotDetected); N meningitidis Not Reported Not Detected (NotDetected); P aeruginosa Not Reported Not Detected (NotDetected); Proteus spp Not Reported Not Detected (NotDetected); Salmonella spp Not Reported Not Detected (NotDetected); Smarcescens Not Reported Not Detected (NotDetected); Staph lugdunensis Not Reported Not Detected (NotDetected); Staph spp. Not Reported Not Detected (NotDetected); Staphaureus Not Reported Not Detected (NotDetected); Staphepi Not Reported Not Detected (NotDetected); Stenmaltophilia Not Reported Not Detected (NotDetected); Strep agal(GrpB) Not Reported Not Detected (NotDetected); Strep pneum Not Reported Not Detected (NotDetected); Strep pyog (GrpA) Not Reported Not Detected (NotDetected); Strep spp Not Reported DETECTED (NotDetected)
[2022-08-13 13:27] LABS: Streptococcus spp DETECTED (NotDetected)
[2022-08-13] MEDS ORDERED: ACETAMINOPHEN 1000 MG/100 ML IV IV ONE (13:30)
--- NOTE | 2022-08-13 14:11 | XRay Report ---
XR KUB/Abdomen 1 view CLINICAL HISTORY: Abdominal Distention TECHNIQUE: 1 view of the abdomen was obtained. Comparison: Comparison is made to abdomen radiographs 02/11/2018 FINDINGS: An IVC filter is seen. Posterior fixation hardware is seen degenerative changes are seen in the spine . There is gaseous distention of the large bowel. There is suggestion of gaseous dilation of small carmenza wel loops as well. IMPRESSION: Mild gaseous distention of the large and small bowel which may represent ileus, less likely partial o bstruction. ACT 112: Negative or not required by law. Electronically signed by: Cory Wolff M.D. 08/13/2022 2:09 PM
--- NOTE | 2022-08-13 15:07 | Electrocardiogram Report ---
Test Reason : Blood Pressure : / mmHG Vent. Rate : 091 BPM Atrial Rate : 091 BPM P-R Int : 110 ms QRS Dur : 128 ms QT Int : 382 ms P-R-T Axes : 032 -58 024 degrees QTc Int : 469 ms Poor data quality, interpretation may be adversely affected Sinus rhythm with short AK Right bundle branch block Left anterior fascicular block Bifascicular block Abnormal ECG When compared with ECG of 04-AUG-2022 06:45, No significant change was found Confirmed by Franko Mayberry ([id number]) on 08/13/2022 3:07:22 PM Referred By: REFERRED SELF Confirmed By:Franko Mayberry
[2022-08-13 15:20] LABS: Polychromasia 1+
[2022-08-13] MEDS ORDERED: SODIUM CHLORIDE 0.9% 250 ML IV ONE ×2 (15:30→17:00)
[2022-08-13] MEDS: ONDANSETRON INJ 2 MG/ML 2 ML VIAL IV SCH (18:02)
[2022-08-13] MEDS ORDERED: SODIUM CHLORIDE 0.9% 1000ML 500 ML IV ONE (18:10)
[2022-08-13 18:51] LABS: Calcium 9.2 mg/dl (8.5-10.1); Creatinine Clr Calc Pharmacy 19.5 ml/min; Est GFR (African American) 18.6 ml/min; Est GFR (Non-African American) 16.1 ml/min; Potassium 4.2 mmol/L (3.5-5.1)
--- NOTE | 2022-08-13 19:26 | Billing Data ---
Date of Service August 13, 2022 Coding Level of Care Code 10619 SUB INP/OBS CARE MIN
[2022-08-13] MEDS: ATORVASTATIN 10 MG TAB PO SCH (20:30)
[2022-08-13] MEDS: FAMOTIDINE 20 MG in SYRINGE 3 ML IV SCH (20:35)
[2022-08-13] MEDS: PANTOprazole 40 MG in SYRINGE 0 ML IV SCH (20:35)
[2022-08-13] MEDS: PROCHLORPERAZINE 5 MG in SYRINGE 4 ML IV PRN (20:38)
--- NOTE | 2022-08-13 22:45 | Billing Data ---
Date of Service August 13, 2022 Coding Level of Care Code 05987 INT INP/OBS CARE
[2022-08-14] MEDS: ONDANSETRON INJ 2 MG/ML 2 ML VIAL IV SCH ×5 (00:17→23:03)
[2022-08-14] MEDS: PIPERACILLIN/TAZOBACTAM 3.375 GM in DEXTROSE 5% 100 ML IV SCH ×4 (00:17→23:04)
[2022-08-14] MEDS ORDERED: SODIUM CHLORIDE 0.9% 1000ML 250 ML IV ONE (00:36)
[2022-08-14] MEDS ORDERED: ACETAMINOPHEN 1,000 MG/100 ML VIAL IV STA (00:40)
[2022-08-14] MEDS ORDERED: LACTATED RINGER'S 250 ML IV ONE (01:39)
[2022-08-14] MEDS: traMADol HCL 50 MG TABLET PO PRN ×2 (03:37→20:06)
[2022-08-14] MEDS: LEVOTHYROXINE SODIUM 50 MCG TABLET PO SCH (05:29)
--- NOTE | 2022-08-14 06:58 | Hospitalist Progress Note ---
Date of Service August 14, 2022 Assessment & Plan (1) Sepsis: (2) Chest pain: Plan: 76 yo F with PMH HTN, chronic DVT with IVC filter, aortic stenosis, HFpEF, MGUS, cirrhosis, DM2, HLD, ROSALES on CPAP, chronic back pain w/ history of lumbar stenosis s/p surgery with multiple recent hospitalizations. Sepsis secondary to Alpha Strep Bacteremia - Blood cultures growing alpha hemolytic strep, source of infection is unclear - Leukocytosis to 16, Procal= 28.12, CRP= 18 - Continue Zosyn pending susceptibilities - TTE without vegetations; would consider getting a DELFIN pending ID recommendations and results of second set of blood cultures - Will consult ID for help with duration of treatment - Repeat blood cultures pending Back pain -Pt does have chronic back pain, suspect current pain largely due to such hist ory and morbid obesity - She states that this pain is different from her normal back pain, with bacteremia and hardware from spinal fusion, concern for osteomyelitis. Will order MRI to evaluate -Tylenol PRN mild pain, tramadol prn for moderate/severe pain Acute kidney injury in setting of CKD3 -Cr 2 on admission, baseline around 1 -Suspect secondary to hypovolemia - Creatine up to 2.72 yesterday evening, down to 2.58 this morning with 1L of fluid over the past 24 hours -Trend CMP - Will continue mIVF ; LR at 125ml/hr and will continue to monitor fluid status given her history of HFpEF HFpEF -CXR with significant vascular congestion and pulmonary edema -Echocardiogram 07/2022- EF 55-60% - Will hold Lasix as she appears dry on exam -Lynn catheter, UOP, daily weights, I's/O's Nausea/Abdominal Pain - KUB with Mild gaseous distention of the large and small bowel which may represent ileus, less likely partial obstruction - Is passing gas, no BM today - Tylenol prn for pain - Compezine, Famotidine, Zofran, Pantroprazole - Both pain and nausea improved from yesterday Elevated troponin and chest pain -Initial Troponin 74 repeat 73 -EKG without acute ST change - Chest pain has resolved Cirrhosis -Continue lactulose -Holding spironolactone given low BP, will resume as BP tolerates -No concern for hepatic encephalopathy or liver failure at present -Trend CMP Thrombocytopenia -Plts 98 on admission -Does appear chronic and at baseline, likely due to liver cirrhosis -Trend CBC DM2 -Holding home glimepiride, metformin -Hold Lantus 5u BID until she is tolerating better PO intake, SSI ordered HTN -Holding home lisinopril for EMY ROSALES -CPAP nightly HLD -Continue atorvastatin 10 mg Hypothyroidism -Continue levothyroxine Code status: DNR DVT ppx: SCDs, deferring chemical prophylaxis given thrombocytopenia Isolation: None Dispo: PT/OT ordered, anticipate need for rehab (3) CKD (chronic kidney disease): (4) Back pain: (5) Diabetes mellitus with peripheral vascular disease: (6) Streptococcal bacteremia: (7) Pneumonia: Admission and Anticipated Discharge Date Admission Date: August 13, 2022 Supervising Physician Co-Signing Physician Notes I personally examined the patient and verified all almanzar points of history and exam, discussed case, and agree with decision making with Dr Lucia. a lot of back pain. a lot of nausea. thinks that the back pain is probably causing the nausea. Vitals noted, breathing unlabored. Abdomen soft but mild/moderately distended and diffusely tender no guarding rebound or rigidity. Skin without rashes pallor or icterus. Sepsis due to strep bacteremiaalpha strepso probably not pneumoniano dentition, so probably spontaneous bacteremia versus gut translocation. Worsening back pain concerning for osteomyelitisimaging has been ordered. TTE reassuring, but given strep bacteremia, low threshold for TEEawait follow-up blood cultures and infectious disease input. Continue Zosyn for now pending sensitivitiesthen streamline. Suspect nausea also is due to a component of ileuscontinue supportive care and as needed medications and time. Give trial of better pain controlit is also possible that pain might be driving the nausea some as well. Otherwise as above, risk high due to severity of illness Subjective Rosalind was sitting up eating breakfast when I saw her this morning. She states that her nausea has significantly improved; denies any further episodes of emesis. She continues to have back pain. She has chronic lumbar pain, but states that this is different has the pain she normally gets. She does have a history of lumbar spinal fusion. Review of Systems Review of Systems: As per above Physical Exam Physical Exam: General: moderate distress, obese HEENT: No overt JVD, moist mucous membranes CV: RRR, +systolic murmur over LUSB, normal S1 and S2 Resp: diminished breath sounds with bibasilar crackles,no increased work of breathing Abd: soft, distended, mild tenderness without rebound or guarding Ext: +1 pitting edema up to knees b/l Neuro: AOx3, no gross focal motor deficits Results & Data Results & Data ([facility]) Vital Signs (Past 12 Hours) Vital Signs Temp Pulse Pulse Resp BP Pulse Ox O2 Del Method 08/14/22 02:15 36.3 C L 89 18 127/72 99 Nasal Cannula 08/14/22 01:56 95 Nasal Cannula 08/13/22 23:47 91 H 08/13/22 23:12 36.6 C 88 18 109/63 95 Room Air 08/13/22 19:10 36.4 C L 100 H 18 122/76 92 Room Air O2 Flow Rate 08/14/22 02:15 1.5 08/14/22 01:56 2 08/13/22 23:47 08/13/22 23:12 08/13/22 19:10 Resident Activity Tracking Resident Involvement: Resident Care Provided Care Provided: Adult [facility]
[2022-08-14 07:05] LABS: Bilirubin,Total 0.6 mg/dl (0.2-1.0); Calcium 8.1 mg/dl (8.5-10.1); Magnesium 1.5 mg/dl (1.7-2.4); Potassium 4.5 mmol/L (3.5-5.1)
[2022-08-14 07:13] LABS: Albumin Globulin Ratio 0.6 (0.9-2); Creatinine Clr Calc Pharmacy 20.6 ml/min; Est GFR (African American) 19.9 ml/min; Est GFR (Non-African American) 17.1 ml/min; Globulin 3.6 gm/dl (2.5-4.0); Hematocrit (blood only) 28.5 % (34.1-44.9); Hemoglobin 9.1 g/dl (12.0-16.0); Mean Corpuscular Hemoglobin 27.8 pg (25.0-34.0); Mean Corpuscular Hgb Conc 31.9 g/dL (32.0-36.0); Mean Corpuscular Volume 87.2 fL (80.0-100.0); Mean Platelet Volume 11.5 fL (9.4-12.3); Phosphorus 4.5 mg/dl (2.5-4.9); Platelet Count 80 K/uL (130-400); RDW Coefficient of Variation 16.9 % (11.5-14.5); RDW Standard Deviation 52.5 fL (36.4-46.3); Red Blood Count 3.27 M/uL (3.93-5.22); Total Protein 5.6 gm/dl (6.0-8.3); White Blood Count 15.08 K/ul (4.8-10.8)
[2022-08-14] MEDS: CARBOHYDRATES FOR HYPOGLYCEMIA PO PRN ×2 (07:45→08:15)
[2022-08-14] MEDS: INSULIN ASPART PER UNIT SC SCH ×4 (08:40→20:58)
[2022-08-14] MEDS: MAGNESIUM CHLORIDE W/CALCIUM 64MG DELAYED REL TAB PO SCH ×3 (08:42→20:02)
[2022-08-14] MEDS: PANTOprazole 40 MG in SYRINGE 0 ML IV SCH ×2 (08:45→20:02)
[2022-08-14] MEDS: LACTULOSE SYRUP 30 GM/45 ML UDP PO SCH ×2 (08:47→20:01)
[2022-08-14] MEDS: LACTATED RINGER'S 1,000 ML IV SCH ×2 (08:54→18:15)
[2022-08-14] MEDS: FAMOTIDINE 20 MG in SYRINGE 3 ML IV SCH ×2 (08:57→20:00)
--- NOTE | 2022-08-14 10:59 | Electrocardiogram Report ---
Test Reason : Blood Pressure : / mmHG Vent. Rate : 082 BPM Atrial Rate : 082 BPM P-R Int : 112 ms QRS Dur : 136 ms QT Int : 376 ms P-R-T Axes : 081 -53 043 degrees QTc Int : 439 ms Poor data quality, interpretation may be adversely affected Sinus rhythm with Premature atrial complexes Right bundle branch block Left anterior fascicular block Bifascicular block Abnormal ECG When compared with ECG of 12-AUG-2022 22:24, Premature atrial complexes are now Present Confirmed by Franko Mayberry ([id number]) on 08/14/2022 10:59:15 AM Referred By: REFERRED SELF Confirmed By:Franko Mayberry
[2022-08-14] MEDS ORDERED: MoRPHine SULFATE 2 MG/ML CARP IV PRN (14:02)
--- NOTE | 2022-08-14 14:26 | Billing Data ---
Date of Service August 14, 2022 Coding Level of Care Code 83658 SUB INP/OBS CARE MIN
[2022-08-14] MEDS ORDERED: MoRPHine SULFATE 2 MG/ML CARP IV ONE (14:57)
[2022-08-14] MEDS: ATORVASTATIN 10 MG TAB PO SCH (20:01)
[2022-08-15] MEDS: LACTATED RINGER'S 1,000 ML IV SCH ×2 (02:10→09:02)
[2022-08-15] MEDS: ONDANSETRON INJ 2 MG/ML 2 ML VIAL IV SCH ×3 (05:19→23:43)
[2022-08-15] MEDS: LEVOTHYROXINE SODIUM 50 MCG TABLET PO SCH (05:19)
[2022-08-15] MEDS: traMADol HCL 50 MG TABLET PO PRN (05:24)
--- NOTE | 2022-08-15 07:06 | Hospitalist Progress Note ---
Date of Service August 15, 2022 Assessment & Plan (1) Sepsis: (2) Chest pain: Plan: 76 yo F with PMH HTN, chronic DVT with IVC filter, aortic stenosis, HFpEF, MGUS, cirrhosis, DM2, HLD, ROSALES on CPAP, chronic back pain w/ history of lumbar stenosis s/p surgery with multiple recent hospitalizations. 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 Zosyn to Ceftriaxone for [employer] penetration and antibiotic narrowing - TTE without vegetations; would consider getting a DELFIN pending ID recommendations - Will consult ID for help with duration of treatment - Follow cultures --- Patient lethargic 08/15 AM into PM, patient was hypoglycemic but repleted and remained lethargic, no focal deficits or AMS, continue to follow Back pain - Pt does have chronic back pain, suspect current pain largely due to such history and morbid obesity - She states that this pain is different from her normal back pain, with bacteremia and hardware from spinal fusion, concern for osteomyelitis vs hardware seeding - Tylenol PRN mild pain, tramadol prn for moderate/severe pain --- MRI pending Acute kidney injury in setting of CKD3 -Cr 2 on admission, baseline around 1 -Suspect secondary to hypovolemia - Creatine up to 2.72 yesterday evening, down to 2.58 this morning with 1L of fluid over the past 24 hours --- Cr 3.19 on 08/15, suspect possible component of fluid overload in association w/ known HFpEF, IVF discontinued, ordered 30 mg IV Lasix + labs --- Consult placed to Nephrology HFpEF - CXR with significant vascular congestion and pulmonary edema - Echocardiogram 07/2022- EF 55-60% --- Volume status challenging to differentiate, dry mucous membranes w/ lower extremity edema --- Will lightly diurese and follow BMP --- Closely follow I&O, continue Lynn Nausea/Abdominal Pain - KUB with Mild gaseous distention of the large and small bowel which may represent ileus, less likely partial obstruction - Is passing gas, no BM today - Tylenol prn for pain - Compezine, Famotidine, Zofran, Pantroprazole - Both pain and nausea improved Elevated troponin and chest pain - Initial Troponin 74 repeat 73 - EKG without acute ST change - Chest pain has resolved Cirrhosis - Continue lactulose - Holding spironolactone given low BP, will resume as BP tolerates - No concern for hepatic encephalopathy or liver failure at present - Trend CMP --- Elevated BUN, could be a/w lethargy, following Thrombocytopenia -Plts 98 on admission -Does appear chronic and at baseline, likely due to liver cirrhosis -Trend CBC --- Plts 78, downtrending, no active bleeding DM2 -Holding home glimepiride, metformin -Hold Lantus 5u BID until she is tolerating better PO intake, SSI ordered --- Hypoglycemic x 2, received Dextrose w/ improvement HTN -Holding home lisinopril for EMY ROSALES -CPAP nightly HLD -Continue atorvastatin 10 mg Hypothyroidism -Continue levothyroxine Code status: DNR DVT ppx: SCDs, deferring chemical prophylaxis given thrombocytopenia Isolation: None Dispo: PT/OT ordered, anticipate need for rehab (3) CKD (chronic kidney disease): (4) Back pain: (5) Diabetes mellitus with peripheral vascular disease: (6) Streptococcal bacteremia: (7) Pneumonia: Admission and Anticipated Discharge Date Admission Date: August 13, 2022 Supervising Physician Co-Signing Physician Notes I personally examined the patient and verified all almanzar points of history and exam, discussed case, and agree with decision making with Dr Guardado. Subjective Rosalind appeared lethargic this AM, she was laying in bed upon arrival and was unable to participate in the exam. She states that her back pain persists, but is somewhat improved. She denies any nausea or emesis, but states that she has experienced the sensation of fevers/chills. She denies chest pain, dyspnea, headaches, or abdominal pain. Nursing notes that patient declined to go to MRI yesterday d/t pain, but is agreeable to go this AM. In addition, she also experienced an episode of hypoglycemia which required dextrose. Review of Systems Review of Systems: As per above Physical Exam Physical Exam: General: lethargic, obese HEENT: No overt JVD, dry mucous membranes CV: RRR, +systolic murmur over LUSB, normal S1 and S2 Resp: bibasilar crackles, mildly increased work of breathing Abd: soft, distended, mild tenderness without rebound or guarding Ext: +1 pitting edema up to knees b/l Neuro: AOx3, no gross focal motor deficits Results & Data Results & Data ([facility]) Vital Signs (Past 12 Hours) Vital Signs Temp Pulse Pulse Resp BP Pulse Ox O2 Del Method 08/15/22 04:14 36.5 C 77 20 124/68 98 Room Air 08/15/22 00:19 36.8 C 76 16 112/69 99 Nasal Cannula 08/14/22 21:13 73 15 93 O2 Flow Rate FiO2 08/15/22 04:14 08/15/22 00:19 2 08/14/22 21:13 21 Resident Activity Tracking Resident Involvement: Resident Care Provided Care Provided: Adult Hospital Medicine
[2022-08-15 08:21] LABS: Hemoglobin 8.6 g/dl (12.0-16.0); Mean Corpuscular Hgb Conc 31.9 g/dL (32.0-36.0); Mean Corpuscular Volume 84.9 fL (80.0-100.0); Platelet Count 78 K/uL (130-400); RDW Coefficient of Variation 16.9 % (11.5-14.5); RDW Standard Deviation 52.1 fL (36.4-46.3); Red Blood Count 3.18 M/uL (3.93-5.22); White Blood Count 13.36 K/ul (4.8-10.8)
[2022-08-15 08:38] LABS: Basophils # (auto) 0.03 K/uL (0-0.2); Basophils % (auto) 0.2 %; Dohle Bodies 1+; Eosinophils # (auto) 0.13 K/uL (0-0.50); Immature Granulocytes # (auto) 0.05 K/uL (0.00-0.02); Immature Granulocytes % (auto) 0.4 %; Lymphocytes # (auto) 1.25 K/uL (1.2-3.4); Lymphocytes % (auto) 9.4 %; Monocytes % (auto) 11.2 %; Neutrophils % (auto) 77.8 %
[2022-08-15] MEDS: MAGNESIUM CHLORIDE W/CALCIUM 64MG DELAYED REL TAB PO SCH ×3 (08:52→21:36)
[2022-08-15] MEDS: LACTULOSE SYRUP 30 GM/45 ML UDP PO SCH ×2 (08:53→21:35)
[2022-08-15] MEDS: PANTOprazole 40 MG in SYRINGE 0 ML IV SCH ×2 (08:53→21:34)
[2022-08-15] MEDS: ACETAMINOPHEN 1,000 MG/100 ML VIAL IV PRN (08:58)
[2022-08-15] MEDS: PIPERACILLIN/TAZOBACTAM 3.375 GM in DEXTROSE 5% 100 ML IV SCH (08:58)
[2022-08-15] MEDS: FAMOTIDINE 20 MG in SYRINGE 3 ML IV SCH ×2 (08:58→21:34)
[2022-08-15] MEDS: INSULIN ASPART PER UNIT SC SCH ×4 (08:59→21:33)
[2022-08-15] MEDS ORDERED: SODIUM CHLORIDE 0.9% 1000ML 1,000 ML IV SCH (09:45)
[2022-08-15 10:06] LABS: Albumin Globulin Ratio 0.5 (0.9-2); BUN Creatinine Ratio 22.3 (10-20); Bilirubin,Total 0.6 mg/dl (0.2-1.0); Creatinine Clr Calc Pharmacy 16.6 ml/min; Est GFR (African American) 15.4 ml/min; Est GFR (Non-African American) 13.3 ml/min; Globulin 3.7 gm/dl (2.5-4.0); Magnesium 1.7 mg/dl (1.7-2.4); Phosphorus 4.9 mg/dl (2.5-4.9); Potassium 4.9 mmol/L (3.5-5.1); Total Protein 5.7 gm/dl (6.0-8.3)
[2022-08-15] MEDS: cefTRIAXone SODIUM 2,000 MG in DEXTROSE 5% 50 ML IV SCH (10:41)
[2022-08-15] MEDS ORDERED: FUROSEMIDE 40 MG/4 ML VIAL IV STA ×2 (11:07→16:15)
[2022-08-15] MEDS: DEXTROSE 50% 50 ML SYRINGE IV PRN ×2 (11:51→12:00)
[2022-08-15] MEDS: CARBOHYDRATES FOR HYPOGLYCEMIA PO PRN (11:51)
[2022-08-15 13:43] LABS: Appearance Urine Cloudy (Clear); Bilirubin Urine Negative (Negative); Blood Urine 3+ (Negative); Color Urine Yellow; Glucose Urine UA Negative (Negative); Ketones Urine Negative (Negative); Leukocyte Esterase Urine 1+ (Negative); Nitrite Urine Negative (Negative); Protein Urine 1+ (Negative); Specific Gravity Urine 1.015 (1.000-1.030); Urobilinogen Urine Negative (Negative)
--- NOTE | 2022-08-15 13:57 | Infectious Disease Consult ---
Date of Consultation August 15, 2022 Assessment & Plan (1) Streptococcal bacteremia: (2) Leukocytosis: (3) Sepsis: (4) EMY (acute kidney injury): (5) Chronic back pain: Plan This is a 76-year-old female with past medical history of hypertension, chronic deep vein thrombosis of RLE sp IVC filter, chronic back pain sp spinal fusion, mod-severe aortic stenosis, monoclonal gammopathy of unknown significance, nonalcoholic fatty liver with cirrhosis, diabetes, ROSALES who was recently admitted 08/04/22-08/09/22 for hepatic encephalopathy and EMY. Prior to this, she was admitted 07/28/21-08/01/21 for diverticular bleed. She presents a few days after last discharge on 08/13 with increased fatigue and marked increase in back pain. She denies any steroid injections of spine or recent back trauma or falls. In the Ed she is afebrile and hemodynamically stable. Admission labs noted for WBC 18.50 , creatinine 2.039, platelets 98, crp 18.21, procalcitonin 28.12, lactate 4.9, troponin 74, urine cx + gamma strep and lactobacillus and BC + i 3/4 bottles for Group g streptococcus. Cxr shows cardiomegaly and mild pulmonary edema. An abdominal xray shows An IVC filter ,posterior fixation hardware and gaseous distention of the large bowel and small intestine. She was started on Zosyn and is now on Ceftriaxone. A TTE shows evidence of moderate Aortic stenosis. There is no valve vegetation noted. She is pending MRI spine. On my interview , she is awake and alert and complains of severe back pain ( more than her baseline) and right knee pain and swelling. She denies fever, chills, sweats, skin rash, change in urine or bowel habits, ab pain, n/v, sob, chest pain. Id consulted for evaluation of Group G streptococcus bacteremia. Micro: Bc 08/13 ( 1:22) 3/4 bottles group G strep Bc 08/13 1751) NGTD UC 08/13 Gamma strep not enterococcus, Lactobacillus species Blood Culture Aerobic Final 08/15/22-1017 Organism 1 Group G Beta Strep Sens Sensitivities to Follow Phoned positive Blood Culture Gram Stain report to Jessica Sims on 08/13/22 at 1328 [place] [id number]. [place] [id number]. Grp.G Strp RX M.I.C. --- --------- Ampicillin S <=0.06 Azithromycin S <=0.25 Cefepime S <=0.25 Cefotaxime S <=0.25 Ceftriaxone S <=0.25 Chloramphenicol S 2 Clindamycin S <=0.06 Erythromycin S <=0.06 Penicillin S <=0.03 Vancomycin S 0.5 Abx: zosyn 08/13-08/15 ceftriaxone 08/15- ongoin. Group G hemolytic streptococcus bacteremia of unknown origin 2. Acute on chronic back pain 3. Spinal fusion with hardware in place 4. Moderate Aortic stenosis 5. History of B/L TKA 6. R> L LE edema 7. Right above AC fossa edema and ttp 8. EMY 9 Chronic thrombocytopenia Discussion. She presents with acute on chronic back in setting of Group G streptococcus bacteremia. She is also noted to have BL knee edema/pain, has a history of BL TKA and moderate Aortic stenosis on TTE with corresponding murmur on exam without evidence of valve vegetation ( but limited echo study). The source of bacteremia could be Spinal infection, endocarditis or prosthetic joint infection/septic arthritis given the exam findings, presence of hardware and valve abnormalities. She has a mild ttp and swelling and firmness above the AC fossa which could represent soft tissue infection vs superficial phlebitis vs DVt at site of ? prior IV site. She has no evidence of GI infection based on symptoms and physical exam. It is noted that she had a diverticular bleed earlier in the month, but none currently. She is noted to have gamma streptococcus on urine culture but no urinary symptoms. Recommendations: Continue ceftriaxone 2 g iv q 24hours for now Can likely deescalate if only Group Strep identified in BC finalization , repeat BC. Repeat BC to ensure blood culture clearance Follow up MRI spine Check DELFIN Check BL knee with xray given bacteremia , knee swelling and history of BL TKA Check ESR Remove martino if not needed. Check R UE US Final duration of antibiotic therapy will depend on etiology and persistence of bacteremia. Thank you for allowing me to participate in the care of your patient. ID will continue to follow. Corwin Gupta MD, MPH [facility], [facility] Call [phone] with questions Consultation Information Consultation was provided via telemedicine using two-way real-time interactive telecommunication between the patient and the telemedicine provider. For the duration of the visit, the provider was performing the assessment from a different facility than the patient. This includesuse of bluetooth stethoscope forauscultationperformed by the telepresenter that the telemedicine provider can hear if described in the physical exam. Chip Machine Operator contact information: Please call [facility] Call Center . (Phone Number For Physician Use Only) After establishing a telemedicine visit, patient was: Patient/authorized rep acknowledged consent and understanding and Gave permission to continue telehealth session Time Spent with Patient: Initial => 55 min History of Present Illness Reason for Consultation: Group G Beta hemolytic Streptococcus Bacteremia Requesting Physician: Arsh Chamberlain DO Attending Physician: Arsh Chamberlain DO History of Present Illness This is a 76-year-old female with past medical history of hypertension, chronic deep vein thrombosis of RLE sp IVC filter, chronic back pain sp spinal fusion, mod-severe aortic stenosis, monoclonal gammopathy of unknown significance, nonalcoholic fatty liver with cirrhosis, diabetes, ROSALES who was recently admitted 08/04/22-08/09/22 for hepatic encephalopathy and EMY. Prior to this, she was admitted 07/28/21-08/01/21 for diverticular bleed. She presents a few days after last discharge on 08/13 with increased fatigue and marked increase in back pain. She denies any steroid injections of spine or recent back trauma or falls. In the Ed she is afebrile and hemodynamically stable. Admission labs noted for WBC 18.50 , creatinine 2.039, platelets 98, crp 18.21, procalcitonin 28.12, lactate 4.9, troponin 74, urine cx + gamma strep and lactobacillus and BC + i 3/4 bottles for Group g streptococcus. Cxr shows cardiomegaly and mild pulmonary edema. An abdominal xray shows An IVC filter ,posterior fixation hardware and gaseous distention of the large bowel and small intestine. She was started on Zosyn and is now on Ceftriaxone. A TTE shows evidence of moderate Aortic stenosis. There is no valve vegetation noted. She is pending MRI spine. On my interview , she is awake and alert and complains of severe back pain ( more than her baseline) and right knee pain and swelling. She denies fever, chills, sweats, skin rash, change in urine or bowel habits, ab pain, n/v, sob, chest pain. Id consulted for evaluation of Group G streptococcus bacteremia. Allergies Allergy/AdvReac Type Severity Reaction Status Date / Time No Known Allergies Allergy Verified 08/11/22 15:01 Home Medications Medication Instructions Recorded Confirmed Type cholecalciferol (vitamin D3) 50 2,000 unit PO QAM 07/01/18 08/13/22 History mcg (2,000 unit) capsule (Vitamin D3) docusate sodium 100 mg capsule 100 mg PO BID PRN Constipation 07/01/18 08/13/22 History multivitamin 1 tab PO QAM 10/14/19 08/13/22 History vitamin E 268 mg (400 unit) capsule 400 unit PO QAM 08/14/20 08/13/22 History atorvastatin 10 mg tablet 10 mg PO HS #90 tabs 08/12/21 08/13/22 Rx glimepiride 1 mg tablet 1 mg PO BID #180 tabs 08/12/21 08/13/22 Rx coenzyme Q10 200 mg capsule 200 mg PO DAILY 11/01/21 08/13/22 History acetaminophen 325 mg tablet 650 mg PO Q4H PRN fever or pain 03/23/22 08/13/22 Rx #30 tabs famotidine 20 mg tablet 20 mg PO BID PRN Heartburn 04/05/22 08/13/22 History polyethylene glycol 3350 17 gram 17 g PO DAILY PRN Constipation 04/05/22 08/13/22 History oral powder packet (Miralax) levothyroxine 50 mcg tablet 50 mcg PO DAILY #90 tabs 04/12/22 08/13/22 Rx lisinopril 10 mg tablet 10 mg PO DAILY 04/25/22 08/13/22 History metformin 500 mg tablet 500 mg PO DAILY 04/25/22 08/13/22 History sodium chloride 1 gram tablet 1,000 mg PO DAILY #90 tabs 07/11/22 08/13/22 Rx nystatin 100,000 unit/gram topical 1 applic topical TID PRN rash #60 07/20/22 08/13/22 Rx powder grams spironolactone 25 mg tablet 25 mg PO DAILY #30 tabs 07/20/22 08/13/22 Rx magnesium chloride 64 mg 128 mg PO TID #540 tabs 07/27/22 08/13/22 Rx (magnesium chloride) tablet,delayed release ondansetron 4 mg disintegrating 4 mg PO Q6H PRN nausea and 08/01/22 08/13/22 Rx tablet vomiting #14 tabs furosemide 40 mg tablet (Lasix) 40 mg PO DAILY #30 tabs 08/09/22 08/13/22 Rx lactulose 20 gram/30 mL oral 30 g (45 mL) PO BID 30 days #2,700 08/09/22 08/13/22 Rx solution mL Patient History Medical History (Updated 08/16/22 @ 09:56 by Corwin Gupta MD) Acute DVT (deep venous thrombosis) 2019> no known cause > Filter to right groin EMY (acute kidney injury) Anemia 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 Chronic back pain Chronic deep vein thrombosis (DVT) 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 to alcohol Cough Diabetes NIDDM Diverticular hemorrhage resolved DVT (deep venous thrombosis) Elevated troponin I level Esophageal varices determined by endoscopy Fatty liver Fever GERD (gastroesophageal reflux disease) GI bleed none at present Hepatic encephalopathy Hyperlipemia Hypertension Hypomagnesemia Hypomagnesemia Hyponatremia Lactate blood increase Liver cirrhosis Lower leg edema Migraine Monoclonal gammopathy Obesity Osteoarthritis Presence of IVC filter Proteinuria Pulmonary embolism 2019 > no known cause > Filter to right groin Thrombocytopenia Vertigo Volume overload Vomiting and diarrhea Weakness Wheezing Surgical History History of bilateral breast reduction surgery History of bilateral cataract extraction History of carpal tunnel release of both wrists History of section x3 History of colonoscopy History of dilatation and curettage History of esophagogastroduodenoscopy (EGD) History of laparoscopic cholecystectomy History of lumbar spinal fusion hardware in place History of tonsillectomy History of tooth extraction all teeth History of total left knee replacement (TKR) History of total right knee replacement (TKR) Family History Mother Family history of diabetes mellitus Brother Family history of diabetes mellitus 3 brothers Colorectal cancer Myocardial infarction x 2 Father Myocardial infarction Denies family history of Ovarian cancer Prostate cancer Breast cancer Social History Smoking Status: Former smoker Tobacco Type: Cigarettes Age Started Using Tobacco: 15; Age Quit Using Tobacco: 21; Cigarettes Per Day: stopped 55 years ago; Second Hand Exposure: No; Hx Alcohol Use: No Hx Substance Use: No Preferred Language: Nigerien Communication Ability: Effective Visual Impairment: Limited Hearing Ability: Normal Narrow Fabrics Weaver Required: No Beliefs That Will Affect Care: None marital status: / Current Living Situation: Family Current Living Situation Comment: lives with son current occupational status: retired How many Children do You have: 3 Feels Safe at Home: Yes Childhood Exposure to Second-Hand Smoke: Yes caffeine: Yes (tea) during the past year weight has: remained stable Dental Care, Regularly: No Physical Activity Frequency: Does not Exercise Seatbelt Use: always Sunscreen Use: No Do you think of yourself as: straight/heterosexual Gender Identity: Female Assistive Devices: Glasses, Raised Toilet Seat and Walker Review of System A 14 point ROS otained. Pertinent positives as per HPI Physical Exam Constitutional: Obese, chronically ill appearing, awake, alert, oriented times 3, in mild distress secondary to back pain Eyes: PERRL, EOMI, anicteric sclera ENMT: No oral lesions Neck: supple, no adenopathy Respiratory: clear to auscultation, no rhonchi, no wheeze, no increased work of breathing Cardiovascular: S1, S2, RRR, + 3/6 SHAWN Gastrointestinal (Abdomen): Obese, soft, not tender Musculoskeletal: ++ TTP spinal and paraspinal tenderness to palpation Right LE edema >>Left LE RIght Knee swelling and tenderness BL TKA well healed incisons. Right above AC fossa edema and ttp Skin: LEft AC fossa bruising from prior IV line attempts Neurologic: Awake, alert and oriented times 3 Psychiatric: Appropriate mood and affect. Cooperative Genitourinary: Martino in place , clear yellow urine. Results & Data ([facility]) Vital Signs (Past 12 Hours) Vital Signs Temp Pulse Pulse Resp BP Pulse Ox O2 Del Method 08/15/22 11:10 36.8 C 69 15 104/61 98 Nasal Cannula 08/15/22 07:00 74 08/15/22 07:14 36.4 C L 71 13 111/69 99 Nasal Cannula 08/15/22 04:14 36.5 C 77 20 124/68 98 Room Air O2 Flow Rate 08/15/22 11:10 2 08/15/22 07:00 08/15/22 07:14 2 08/15/22 04:14 Laboratory Results Laboratory Results - last 48 hr 08/13/22 08/13/22 08/13/22 08:41 14:18 17:03 WBC RBC Hgb Hct MCV MCH MCHC RDW Std Deviation RDW Coeff of Leah Plt Count MPV Immature Gran % (Auto) Neut % (Auto) Lymph % (Auto) Dolores % (Auto) Eos % (Auto) Baso % (Auto) Neut # (Auto) Lymph # (Auto) Dolores # (Auto) Eos # (Auto) Baso # (Auto) Immature Gran # (Auto) Dohle Bodies Polychromasia 1+ Sodium Potassium Chloride Carbon Dioxide Anion Gap BUN Creatinine Est Cr Clr Drug Dosing Est GFR ( Amer) Est GFR (Non-Af Amer) BUN/Creatinine Ratio Glucose POC Glucose 67 L* Calcium Phosphorus Magnesium Total Bilirubin AST ALT Alkaline Phosphatase Troponin I High Sens B-Natriuretic Peptide Total Protein Albumin Globulin Albumin/Globulin Ratio Urine Color Urine Appearance Urine pH Ur Specific [place] Urine Protein Urine Glucose (UA) Urine Ketones Urine Blood Urine Nitrite Urine Bilirubin Urine Urobilinogen Ur Leukocyte Esterase Nasal Screen MRSA (PCR) Negative 08/13/22 08/13/22 08/13/22 17:05 17:27 17:51 WBC RBC Hgb Hct MCV MCH MCHC RDW Std Deviation RDW Coeff of Leah Plt Count MPV Immature Gran % (Auto) Neut % (Auto) Lymph % (Auto) Dolores % (Auto) Eos % (Auto) Baso % (Auto) Neut # (Auto) Lymph # (Auto) Dolores # (Auto) Eos # (Auto) Baso # (Auto) Immature Gran # (Auto) Dohle Bodies Polychromasia Sodium Potassium Chloride Carbon Dioxide Anion Gap BUN Creatinine Est Cr Clr Drug Dosing Est GFR ( Amer) Est GFR (Non-Af Amer) BUN/Creatinine Ratio Glucose POC Glucose 74 89 Calcium Phosphorus Magnesium Total Bilirubin AST ALT Alkaline Phosphatase Troponin I High Sens 73.8 H* B-Natriuretic Peptide Total Protein Albumin Globulin Albumin/Globulin Ratio Urine Color Urine Appearance Urine pH Ur Specific [place] Urine Protein Urine Glucose (UA) Urine Ketones Urine Blood Urine Nitrite Urine Bilirubin Urine Urobilinogen Ur Leukocyte Esterase Nasal Screen MRSA (PCR) 08/13/22 08/13/22 08/13/22 17:51 20:26 20:45 WBC RBC Hgb Hct MCV MCH MCHC RDW Std Deviation RDW Coeff of Leah Plt Count MPV Immature Gran % (Auto) Neut % (Auto) Lymph % (Auto) Dolores % (Auto) Eos % (Auto) Baso % (Auto) Neut # (Auto) Lymph # (Auto) Dolores # (Auto) Eos # (Auto) Baso # (Auto) Immature Gran # (Auto) Dohle Bodies Polychromasia Sodium 139 Potassium 4.2 Chloride 102 Carbon Dioxide 29 Anion Gap 8 BUN 57 H Creatinine 2.72 H Est Cr Clr Drug Dosing 19.5 Est GFR ( Amer) 18.6 Est GFR (Non-Af Amer) 16.1 BUN/Creatinine Ratio 21.0 H Glucose 88 POC Glucose 71 78 Calcium 9.2 Phosphorus Magnesium Total Bilirubin AST ALT Alkaline Phosphatase Troponin I High Sens B-Natriuretic Peptide Total Protein Albumin Globulin Albumin/Globulin Ratio Urine Color Urine Appearance Urine pH Ur Specific [place] Urine Protein Urine Glucose (UA) Urine Ketones Urine Blood Urine Nitrite Urine Bilirubin Urine Urobilinogen Ur Leukocyte Esterase Nasal Screen MRSA (PCR) 08/13/22 08/13/22 08/13/22 20:56 21:15 21:52 WBC RBC Hgb Hct MCV MCH MCHC RDW Std Deviation RDW Coeff of Leah Plt Count MPV Immature Gran % (Auto) Neut % (Auto) Lymph % (Auto) Dolores % (Auto) Eos % (Auto) Baso % (Auto) Neut # (Auto) Lymph # (Auto) Dolores # (Auto) Eos # (Auto) Baso # (Auto) Immature Gran # (Auto) Dohle Bodies Polychromasia Sodium Potassium Chloride Carbon Dioxide Anion Gap BUN Creatinine Est Cr Clr Drug Dosing Est GFR ( Amer) Est GFR (Non-Af Amer) BUN/Creatinine Ratio Glucose POC Glucose 80 73 84 Calcium Phosphorus Magnesium Total Bilirubin AST ALT Alkaline Phosphatase Troponin I High Sens B-Natriuretic Peptide Total Protein Albumin Globulin Albumin/Globulin Ratio Urine Color Urine Appearance Urine pH Ur Specific [place] Urine Protein Urine Glucose (UA) Urine Ketones Urine Blood Urine Nitrite Urine Bilirubin Urine Urobilinogen Ur Leukocyte Esterase Nasal Screen MRSA (PCR) 08/13/22 08/14/22 08/14/22 22:14 05:23 05:23 WBC 15.08 H RBC 3.27 L Hgb 9.1 L Hct 28.5 L MCV 87.2 MCH 27.8 MCHC 31.9 L RDW Std Deviation 52.5 H RDW Coeff of Leah 16.9 H Plt Count 80 L MPV 11.5 Immature Gran % (Auto) Neut % (Auto) Lymph % (Auto) Dolores % (Auto) Eos % (Auto) Baso % (Auto) Neut # (Auto) Lymph # (Auto) Dolores # (Auto) Eos # (Auto) Baso # (Auto) Immature Gran # (Auto) Dohle Bodies Polychromasia Sodium 136 Potassium 4.5 Chloride 104 Carbon Dioxide 26 Anion Gap 6 BUN 62 H Creatinine 2.58 H Est Cr Clr Drug Dosing 20.6 Est GFR ( Amer) 19.9 Est GFR (Non-Af Amer) 17.1 BUN/Creatinine Ratio 24.0 H Glucose 68 L POC Glucose 108 H Calcium 8.1 L Phosphorus 4.5 Magnesium 1.5 L Total Bilirubin 0.6 AST 39 ALT 16 Alkaline Phosphatase 54 Troponin I High Sens B-Natriuretic Peptide Total Protein 5.6 L D Albumin 2.0 L Globulin 3.6 Albumin/Globulin Ratio 0.6 L Urine Color Urine Appearance Urine pH Ur Specific [place] Urine Protein Urine Glucose (UA) Urine Ketones Urine Blood Urine Nitrite Urine Bilirubin Urine Urobilinogen Ur Leukocyte Esterase Nasal Screen MRSA (PCR) 08/14/22 08/14/22 08/14/22 05:23 07:30 07:31 WBC RBC Hgb Hct MCV MCH MCHC RDW Std Deviation RDW Coeff of Leah Plt Count MPV Immature Gran % (Auto) Neut % (Auto) Lymph % (Auto) Dolores % (Auto) Eos % (Auto) Baso % (Auto) Neut # (Auto) Lymph # (Auto) Dolores # (Auto) Eos # (Auto) Baso # (Auto) Immature Gran # (Auto) Dohle Bodies Polychromasia Sodium Potassium Chloride Carbon Dioxide Anion Gap BUN Creatinine Est Cr Clr Drug Dosing Est GFR ( Amer) Est GFR (Non-Af Amer) BUN/Creatinine Ratio Glucose POC Glucose 57 L* 60 L* Calcium Phosphorus Magnesium Total Bilirubin AST ALT Alkaline Phosphatase Troponin I High Sens B-Natriuretic Peptide 295 H Total Protein Albumin Globulin Albumin/Globulin Ratio Urine Color Urine Appearance Urine pH Ur Specific [place] Urine Protein Urine Glucose (UA) Urine Ketones Urine Blood Urine Nitrite Urine Bilirubin Urine Urobilinogen Ur Leukocyte Esterase Nasal Screen MRSA (PCR) 08/14/22 08/14/22 08/14/22 07:54 07:54 08:15 WBC RBC Hgb Hct MCV MCH MCHC RDW Std Deviation RDW Coeff of Leah Plt Count MPV Immature Gran % (Auto) Neut % (Auto) Lymph % (Auto) Dolores % (Auto) Eos % (Auto) Baso % (Auto) Neut # (Auto) Lymph # (Auto) Dolores # (Auto) Eos # (Auto) Baso # (Auto) Immature Gran # (Auto) Dohle Bodies Polychromasia Sodium Potassium Chloride Carbon Dioxide Anion Gap BUN Creatinine Est Cr Clr Drug Dosing Est GFR ( Amer) Est GFR (Non-Af Amer) BUN/Creatinine Ratio Glucose POC Glucose 58 L* 59 L* 73 Calcium Phosphorus Magnesium Total Bilirubin AST ALT Alkaline Phosphatase Troponin I High Sens B-Natriuretic Peptide Total Protein Albumin Globulin Albumin/Globulin Ratio Urine Color Urine Appearance Urine pH Ur Specific [place] Urine Protein Urine Glucose (UA) Urine Ketones Urine Blood Urine Nitrite Urine Bilirubin Urine Urobilinogen Ur Leukocyte Esterase Nasal Screen MRSA (PCR) 08/14/22 08/14/22 08/14/22 09:31 11:37 16:43 WBC RBC Hgb Hct MCV MCH MCHC RDW Std Deviation RDW Coeff of Leah Plt Count MPV Immature Gran % (Auto) Neut % (Auto) Lymph % (Auto) Dolores % (Auto) Eos % (Auto) Baso % (Auto) Neut # (Auto) Lymph # (Auto) Dolores # (Auto) Eos # (Auto) Baso # (Auto) Immature Gran # (Auto) Dohle Bodies Polychromasia Sodium Potassium Chloride Carbon Dioxide Anion Gap BUN Creatinine Est Cr Clr Drug Dosing Est GFR ( Amer) Est GFR (Non-Af Amer) BUN/Creatinine Ratio Glucose POC Glucose 86 121 H 112 H Calcium Phosphorus Magnesium Total Bilirubin AST ALT Alkaline Phosphatase Troponin I High Sens B-Natriuretic Peptide Total Protein Albumin Globulin Albumin/Globulin Ratio Urine Color Urine Appearance Urine pH Ur Specific [place] Urine Protein Urine Glucose (UA) Urine Ketones Urine Blood Urine Nitrite Urine Bilirubin Urine Urobilinogen Ur Leukocyte Esterase Nasal Screen MRSA (PCR) 08/14/22 08/15/22 08/15/22 20:53 07:24 07:24 WBC 13.36 H RBC 3.18 L Hgb 8.6 L Hct 27.0 L MCV 84.9 MCH 27.0 MCHC 31.9 L RDW Std Deviation 52.1 H RDW Coeff of Leah 16.9 H Plt Count 78 L MPV 12.0 Immature Gran % (Auto) 0.4 Neut % (Auto) 77.8 Lymph % (Auto) 9.4 Dolores % (Auto) 11.2 Eos % (Auto) 1.0 Baso % (Auto) 0.2 Neut # (Auto) 10.40 H Lymph # (Auto) 1.25 Dolores # (Auto) 1.50 H Eos # (Auto) 0.13 Baso # (Auto) 0.03 Immature Gran # (Auto) 0.05 H Dohle Bodies 1+ Polychromasia Sodium 134 L Potassium 4.9 Chloride 104 Carbon Dioxide 25 Anion Gap 5 BUN 71 H Creatinine 3.19 H D Est Cr Clr Drug Dosing 16.6 Est GFR ( Amer) 15.4 Est GFR (Non-Af Amer) 13.3 BUN/Creatinine Ratio 22.3 H Glucose 61 L POC Glucose 114 H Calcium 8.0 L Phosphorus 4.9 Magnesium 1.7 Total Bilirubin 0.6 AST 28 ALT 15 Alkaline Phosphatase 74 Troponin I High Sens B-Natriuretic Peptide Total Protein 5.7 L Albumin 2.0 L Globulin 3.7 Albumin/Globulin Ratio 0.5 L Urine Color Urine Appearance Urine pH Ur Specific [place] Urine Protein Urine Glucose (UA) Urine Ketones Urine Blood Urine Nitrite Urine Bilirubin Urine Urobilinogen Ur Leukocyte Esterase Nasal Screen MRSA (PCR) 08/15/22 08/15/22 08/15/22 07:34 11:47 12:11 WBC RBC Hgb Hct MCV MCH MCHC RDW Std Deviation RDW Coeff of Leah Plt Count MPV Immature Gran % (Auto) Neut % (Auto) Lymph % (Auto) Dolores % (Auto) Eos % (Auto) Baso % (Auto) Neut # (Auto) Lymph # (Auto) Dolores # (Auto) Eos # (Auto) Baso # (Auto) Immature Gran # (Auto) Dohle Bodies Polychromasia Sodium Potassium Chloride Carbon Dioxide Anion Gap BUN Creatinine Est Cr Clr Drug Dosing Est GFR ( Amer) Est GFR (Non-Af Amer) BUN/Creatinine Ratio Glucose POC Glucose 70 48 L* 224 H Calcium Phosphorus Magnesium Total Bilirubin AST ALT Alkaline Phosphatase Troponin I High Sens B-Natriuretic Peptide Total Protein Albumin Globulin Albumin/Globulin Ratio Urine Color Urine Appearance Urine pH Ur Specific [place] Urine Protein Urine Glucose (UA) Urine Ketones Urine Blood Urine Nitrite Urine Bilirubin Urine Urobilinogen Ur Leukocyte Esterase Nasal Screen MRSA (PCR) 08/15/22 08/15/22 12:21 13:00 WBC RBC Hgb Hct MCV MCH MCHC RDW Std Deviation RDW Coeff of Leah Plt Count MPV Immature Gran % (Auto) Neut % (Auto) Lymph % (Auto) Dolores % (Auto) Eos % (Auto) Baso % (Auto) Neut # (Auto) Lymph # (Auto) Dolores # (Auto) Eos # (Auto) Baso # (Auto) Immature Gran # (Auto) Dohle Bodies Polychromasia Sodium Potassium Chloride Carbon Dioxide Anion Gap BUN Creatinine Est Cr Clr Drug Dosing Est GFR ( Amer) Est GFR (Non-Af Amer) BUN/Creatinine Ratio Glucose POC Glucose 204 H Calcium Phosphorus Magnesium Total Bilirubin AST ALT Alkaline Phosphatase Troponin I High Sens B-Natriuretic Peptide Total Protein Albumin Globulin Albumin/Globulin Ratio Urine Color Yellow Urine Appearance Cloudy A Urine pH 5.0 Ur Specific [place] 1.015 Urine Protein 1+ H Urine Glucose (UA) Negative Urine Ketones Negative Urine Blood 3+ H Urine Nitrite Negative Urine Bilirubin Negative Urine Urobilinogen Negative Ur Leukocyte Esterase 1+ H Nasal Screen MRSA (PCR) Diagnostic Findings Chest X-Ray 08/13/22 00:00 XR chest 1V portable CLINICAL HISTORY: SOB TECHNIQUE: Single frontal radiograph of the chest was obtained. Comparison: Comparison is made to chest radiograph 08/06/2022 FINDINGS: No lines and tubes are seen. Cardiomegaly is noted. Prominence and cephalization of the vasculature is seen. Left retrocardiac opacity is seen. A left pleural effusion cannot be excluded. IMPRESSION: 1. Cardiomegaly and mild pulmonary edema. 2. Left retrocardiac airspace opacity may represent atelectasis, pneumonia, and/or aspiration. ACT 112: Negative or not required by law. Electronically signed by: Cory Wolff M.D. 08/13/2022 11:39 AM KUB X-Ray 08/13/22 08:30 XR KUB/Abdomen 1 view CLINICAL HISTORY: Abdominal Distention TECHNIQUE: 1 view of the abdomen was obtained. Comparison: Comparison is made to abdomen radiographs 02/11/2018 FINDINGS: An IVC filter is seen. Posterior fixation hardware is seen degenerative changes are seen in the spine. There is gaseous distention of the large bowel. There is suggestion of gaseous dilation of small bowel loops as well. IMPRESSION: Mild gaseous distention of the large and small bowel which may represent ileus, less likely partial obstruction. ACT 112: Negative or not required by law. Electronically signed by: Cory Wolff M.D. 08/13/2022 2:09 PM Microbiology 08/13/22 05:10 Urine,Indwelling Cath Urine Culture - Final Gamma strep not enterococcus Lactobacillus species 08/13/22 01:22 Blood Aerobic Blood Culture - Final Group G Beta Strep 08/13/22 01:22 Blood Anaerobic Blood Culture - Final 08/13/22 01:22 Blood Aerobic Blood Culture - Final Group G Beta Strep 08/13/22 01:22 Blood Anaerobic Blood Culture - Final Group G Beta Strep 08/13/22 17:51 Blood Aerobic Blood Culture - Preliminary No growth in Aerobic bottle after 24 hours. 08/13/22 17:51 Blood Anaerobic Blood Culture - Preliminary No growth in Anaerobic bottle after 24 hours. 08/13/22 17:51 Blood Aerobic Blood Culture - Preliminary No growth in Aerobic bottle after 24 hours. 08/13/22 17:51 Blood Anaerobic Blood Culture - Preliminary No growth in Anaerobic bottle after 24 hours. TTE 08/14/22 trileaflet AV valve is moderately calcified and thickened. Has moderate stenosis . There is a small pericardial effusion.
[2022-08-15 14:08] LABS: Bacteria Urine 1+ (Negative); RBC Urine >30 /hpf (0-4); WBC Urine >30 /hpf (0-5)
[2022-08-15 14:14] LABS: Sodium Random Urine < 10 mmol/L
--- NOTE | 2022-08-15 14:32 | Nephrology Consultation ---
Date of Consultation August 15, 2022 Assessment & Plan (1) EMY (acute kidney injury): (2) Volume overload: (3) Lower leg edema: (4) Streptococcal bacteremia: (5) Anemia: Plan 76-year-old female with multiple comorbidities including morbid obesity, recent GI bleeding, repeated episodes of EMY with volume depletion, admitted to hospital with EMY, generalized weakness, bacteremia and volume overload. Renal function is rapidly worsening over last few days, on admission it is 2.5 which worsened to 2.3.2 this morning with baseline pretty decent renal function with baseline crit 2. Has moderate degree proteinuria with history of hypertension, diabetes, MGUS. Rapid worsening of renal function with volume overload and decreased urine output could be secondary to combinations of intravascular volume depletion with hypoalbuminemia as well as renovascular congestion. overall more than 6 L positive since admission. diuretics has been on hold today considering EMY -- start on IV Lasix 40 mg twice a day, accurate intake and output, monitor renal function electrolyte closely while on diuretic. -- Epogen [id number] units x 1 dose today -- dose meds for eGFR <15 Will continue to monitor closely Thank you for allowing me to participate in your patient's care. It was a pl easure to see Rosalind History of Present Illness Reason for Consultation: acute kidney injury, volume overload. Attending Physician: Arsh Chamberlain DO History of Present Illness Mrs. Rosalind Dudley is a 76 yo F with PMH significant for repeated episodes of EMY with volume depletion, HTN, chronic DVT with IVC filter, aortic stenosis, HFpEF, MGUS, cirrhosis, DM2, HLD, ROSALES on CPAP, chronic back pain w/ history of lumbar stenosis admitted to the hospital with volume overload, EMY and back pain. Nephrology consult was requested to assist with volume overload in the setting of EMY. EMR records were reviewed in detail during patient's visit. Rosalind was hospitalized recently multiple times over last 1 month, initially from 07/28/2022 to 08/01/2022 with GI bleeding, had EGD colonoscopy, hemoglobin eventually staying around 8.5-9. Then again admitted to hospital from 08/04/2022 to 08/09/2022 with generalized weakness vomiting and diarrhea. She presented to ER on 08/13/2022 with progressive shortness of breath and back pain which has been chronic. Back pain somewhat improved. Chest x-ray showed pulmonary vascular congestion. She was started on IV Lasix with improvement in SOB. Renal function has been relatively stable through recent hospitalization, on 08/09/2022 creatinine was 1.2. Follow-up outpatient lab on showed EMY with creatinine 2.0, on admission on 08/13/2022, creatinine 2.7 which increased to 3.2 morning. She was also found to have UTI and blood culture came back positive for bacteremia, Currently on ceftriaxone, pending ID consult. She just came back from radiology for MRI but she was not able to lie flat to have MRI of back. Overall feeling poorly. Allergies Allergy/AdvReac Type Severity Reaction Status Date / Time No Known Allergies Allergy Verified 08/11/22 15:01 Home Medications Medication Instructions Recorded Confirmed Type cholecalciferol (vitamin D3) 50 2,000 unit PO QAM 07/01/18 08/13/22 History mcg (2,000 unit) capsule (Vitamin D3) docusate sodium 100 mg capsule 100 mg PO BID PRN Constipation 07/01/18 08/13/22 History multivitamin 1 tab PO QAM 10/14/19 08/13/22 History vitamin E 268 mg (400 unit) capsule 400 unit PO QAM 08/14/20 08/13/22 History atorvastatin 10 mg tablet 10 mg PO HS #90 tabs 08/12/21 08/13/22 Rx glimepiride 1 mg tablet 1 mg PO BID #180 tabs 08/12/21 08/13/22 Rx coenzyme Q10 200 mg capsule 200 mg PO DAILY 11/01/21 08/13/22 History acetaminophen 325 mg tablet 650 mg PO Q4H PRN fever or pain 03/23/22 08/13/22 Rx #30 tabs famotidine 20 mg tablet 20 mg PO BID PRN Heartburn 04/05/22 08/13/22 History polyethylene glycol 3350 17 gram 17 g PO DAILY PRN Constipation 04/05/22 08/13/22 History oral powder packet (Miralax) levothyroxine 50 mcg tablet 50 mcg PO DAILY #90 tabs 04/12/22 08/13/22 Rx lisinopril 10 mg tablet 10 mg PO DAILY 04/25/22 08/13/22 History metformin 500 mg tablet 500 mg PO DAILY 04/25/22 08/13/22 History sodium chloride 1 gram tablet 1,000 mg PO DAILY #90 tabs 07/11/22 08/13/22 Rx nystatin 100,000 unit/gram topical 1 applic topical TID PRN rash #60 07/20/22 08/13/22 Rx powder grams spironolactone 25 mg tablet 25 mg PO DAILY #30 tabs 07/20/22 08/13/22 Rx magnesium chloride 64 mg 128 mg PO TID #540 tabs 07/27/22 08/13/22 Rx (magnesium chloride) tablet,delayed release ondansetron 4 mg disintegrating 4 mg PO Q6H PRN nausea and 08/01/22 08/13/22 Rx tablet vomiting #14 tabs furosemide 40 mg tablet (Lasix) 40 mg PO DAILY #30 tabs 08/09/22 08/13/22 Rx lactulose 20 gram/30 mL oral 30 g (45 mL) PO BID 30 days #2,700 08/09/22 08/13/22 Rx solution mL Patient History Medical History (Updated 08/15/22 @ 15:50 by Precious Momin MD) Acute DVT (deep venous thrombosis) 2019> no known cause > Filter to right groin EMY (acute kidney injury) Anemia 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 Chronic back pain Chronic deep vein thrombosis (DVT) 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 to alcohol Cough Diabetes NIDDM Diverticular hemorrhage resolved DVT (deep venous thrombosis) Elevated troponin I level Esophageal varices determined by endoscopy Fatty liver Fever GERD (gastroesophageal reflux disease) GI bleed none at present Hepatic encephalopathy Hyperlipemia Hypertension Hypomagnesemia Hypomagnesemia Hyponatremia Lactate blood increase Liver cirrhosis Lower leg edema Migraine Monoclonal gammopathy Obesity Osteoarthritis Presence of IVC filter Proteinuria Pulmonary embolism 2019 > no known cause > Filter to right groin Thrombocytopenia Vertigo Volume overload Vomiting and diarrhea Weakness Wheezing Surgical History History of bilateral breast reduction surgery History of bilateral cataract extraction History of carpal tunnel release of both wrists History of section x3 History of colonoscopy History of dilatation and curettage History of esophagogastroduodenoscopy (EGD) History of laparoscopic cholecystectomy History of lumbar spinal fusion hardware in place History of tonsillectomy History of tooth extraction all teeth History of total left knee replacement (TKR) History of total right knee replacement (TKR) Family History Mother Family history of diabetes mellitus Brother Family history of diabetes mellitus 3 brothers Colorectal cancer Myocardial infarction x 2 Father Myocardial infarction Denies family history of Ovarian cancer Prostate cancer Breast cancer Social History Smoking Status: Former smoker Tobacco Type: Cigarettes Age Started Using Tobacco: 15; Age Quit Using Tobacco: 21; Cigarettes Per Day: stopped 55 years ago; Second Hand Exposure: No; Hx Alcohol Use: No Hx Substance Use: No Preferred Language: Sami Communication Ability: Effective Visual Impairment: Limited Hearing Ability: Normal Trial Management Associate Required: No Beliefs That Will Affect Care: None marital status: / Current Living Situation: Family Current Living Situation Comment: lives with son current occupational status: retired How many Children do You have: 3 Feels Safe at Home: Yes Childhood Exposure to Second-Hand Smoke: Yes caffeine: Yes (tea) during the past year weight has: remained stable Dental Care, Regularly: No Physical Activity Frequency: Does not Exercise Seatbelt Use: always Sunscreen Use: No Do you think of yourself as: straight/heterosexual Gender Identity: Female Assistive Devices: Glasses, Raised Toilet Seat and Walker Review of Systems Review of Systems: Detailed review of system was otherwise unremarkable. Physical Exam Constitutional: WD/WN, vitals as above + ill appearing and + morbidly obese Eyes: + anicteric sclerae ENMT: Ears: no hearing impairment and no external ear abnormality Nose: nasal mucous membranes not dry Neck: normal visual inspection Thyroid: no thyromegaly Respiratory: normal respiratory effort; no respiratory distress and no cough Auscultation: + diminished lung sounds and + crackles; no wheezes Cardiovascular: Rate/Rhythm: regular rate and regular rhythm Heart Sounds: normal S1 and normal S2 Extremities: + edema Gastrointestinal (Abdomen): Inspection/Auscultation: + abdominal edema Percussion/Palpation: abdomen soft; abdomen nontender, no guarding and abdomen not rigid Musculoskeletal: Extremities: extremities normal to inspection Skin: normal turgor; no rashes Neurologic: no focal motor deficits and not confused Psychiatric: Orientation: alert and oriented x 3 Affect: euthymic affect Results & Data ([facility]) Vital Signs (Past 12 Hours) Vital Signs Temp Pulse Pulse Resp BP Pulse Ox O2 Del Method 08/15/22 11:10 36.8 C 69 15 104/61 98 Nasal Cannula 08/15/22 07:00 74 08/15/22 07:14 36.4 C L 71 13 111/69 99 Nasal Cannula 08/15/22 04:14 36.5 C 77 20 124/68 98 Room Air O2 Flow Rate 08/15/22 11:10 2 08/15/22 07:00 08/15/22 07:14 2 08/15/22 04:14 PG Care Time/CCT Total # of Minutes Spent Total Time Spent with Patient: Total time spent is greater than 50% in coordination of care (as documented) at patient's floor/unit and/or counseling patient: Coding Level of Care Code 74171 INT INP/OBS CARE 75MIN Diagnoses EMY (acute kidney injury) N17.9 Volume overload E87.70 Lower leg edema R60.0 Streptococcal bacteremia R78.81; B95.5 Anemia D64.9
[2022-08-15] MEDS ORDERED: EPOETIN ALFA 4,000 UNIT/ML VIAL IV ONE (16:06)
[2022-08-15] MEDS ORDERED: EPOETIN ALFA 40,000 UNITS/ML VIAL SQ ONE (16:30)
[2022-08-15] MEDS: PROCHLORPERAZINE 5 MG in SYRINGE 4 ML IV PRN (17:06)
--- NOTE | 2022-08-15 17:18 | Anesthesiology Consultation ---
Date of Service August 15, 2022 Assessment & Plan Chart Review Chart Review: Acceptable Risk for Surgery and Patient NOT seen in Pre Admission Testing Consults Requested none ASA ASA4 Proposed Anesthesia Anesthesia Type: MAC History Height/Weight Height: 5 ft 1 in Weight: 109.7 kg Allergies Allergy/AdvReac Type Severity Reaction Status Date / Time No Known Allergies Allergy Verified 08/11/22 15:01 Medications Home Medications Medication Instructions Recorded Confirmed Last Taken cholecalciferol (vitamin D3) 50 2,000 unit PO QAM 07/01/18 08/13/22 10/02/21 mcg (2,000 unit) capsule (Vitamin D3) docusate sodium 100 mg capsule 100 mg PO BID PRN Constipation 07/01/18 08/13/22 Unknown multivitamin 1 tab PO QAM 10/14/19 08/13/22 10/02/21 vitamin E 268 mg (400 unit) capsule 400 unit PO QAM 08/14/20 08/13/22 10/02/21 atorvastatin 10 mg tablet 10 mg PO HS #90 tabs 08/12/21 08/13/22 10/02/21 glimepiride 1 mg tablet 1 mg PO BID #180 tabs 08/12/21 08/13/22 10/02/21 coenzyme Q10 200 mg capsule 200 mg PO DAILY 11/01/21 08/13/22 Unknown acetaminophen 325 mg tablet 650 mg PO Q4H PRN fever or pain 03/23/22 08/13/22 Unknown #30 tabs famotidine 20 mg tablet 20 mg PO BID PRN Heartburn 04/05/22 08/13/22 Unknown polyethylene glycol 3350 17 gram 17 g PO DAILY PRN Constipation 04/05/22 08/13/22 Unknown oral powder packet (Miralax) levothyroxine 50 mcg tablet 50 mcg PO DAILY #90 tabs 04/12/22 08/13/22 Unknown lisinopril 10 mg tablet 10 mg PO DAILY 04/25/22 08/13/22 Unknown metformin 500 mg tablet 500 mg PO DAILY 04/25/22 08/13/22 Unknown sodium chloride 1 gram tablet 1,000 mg PO DAILY #90 tabs 07/11/22 08/13/22 Unknown nystatin 100,000 unit/gram topical 1 applic topical TID PRN rash #60 07/20/22 08/13/22 Unknown powder grams spironolactone 25 mg tablet 25 mg PO DAILY #30 tabs 07/20/22 08/13/22 Unknown magnesium chloride 64 mg 128 mg PO TID #540 tabs 07/27/22 08/13/22 Unknown (magnesium chloride) tablet,delayed release ondansetron 4 mg disintegrating 4 mg PO Q6H PRN nausea and 08/01/22 08/13/22 Unknown tablet vomiting #14 tabs furosemide 40 mg tablet (Lasix) 40 mg PO DAILY #30 tabs 08/09/22 08/13/22 Unknown lactulose 20 gram/30 mL oral 30 g (45 mL) PO BID 30 days #2,700 08/09/22 08/13/22 Unknown solution mL Active Medications Generic Name Dose Route Start Last Admin Trade Name Freq PRN Reason Stop Dose Admin Atorvastatin Calcium 10 mg 08/13/22 21:00 08/14/22 20:01 Atorvastatin 10 Mg Tab PO 09/12/22 20:59 10 mg HS ARMANDO Administration Dextrose 25 - 50 ml 08/13/22 05:12 08/15/22 12:00 Dextrose 50% 50 Ml Syringe IV 09/12/22 05:11 50 ml UD PRN Administration Hypoglycemia Protocol Protocol Famotidine 20 mg/ Syringe 5 mls @ 2.5 mls/min 08/13/22 21:00 08/15/22 08:58 IV 09/12/22 20:59 2.5 mls/min BID ARMANDO Administration Pantoprazole Sodium 40 mg/ 10 mls @ 5 mls/min 08/13/22 21:00 08/15/22 08:53 Syringe IV 09/12/22 20:59 5 mls/min BID ARMANDO Administration Prochlorperazine 5 mg/ Syringe 5 mls @ 5 mls/min 08/13/22 17:53 08/15/22 17:06 IV 09/12/22 17:52 5 mls/min Q6H PRN Administration Nausea And Vomiting Acetaminophen 1,000 mg in 100 mls @ 400 mls/hr 08/14/22 00:41 08/15/22 09:18 Ofirmev IV 08/17/22 00:40 Infused Q8H PRN Infusion Pain or Fever Ceftriaxone Sodium 2,000 mg/ 70 mls @ 140 mls/hr 08/15/22 09:45 08/15/22 11:17 Dextrose IV 08/29/22 09:44 Infused DAILY@0900 ARMANDO Infusion Insulin Aspart 0 units 08/13/22 07:30 08/15/22 17:08 Insulin Aspart Per Unit SC 09/12/22 07:29 Not Given ACHS ARMANDO Lactulose 30 gm 08/13/22 09:00 08/15/22 08:53 Lactulose Syrup 30 Gm/45 Ml Udp PO 09/12/22 08:59 30 gm BID ARMANDO Administration Levothyroxine Sodium 50 mcg 08/13/22 06:30 08/15/22 05:19 Levothyroxine Sodium 50 Mcg Tablet PO 09/12/22 06:29 50 mcg DAILYBB ARMANDO Administration Magnesium Chloride 128 mg 08/13/22 09:00 08/15/22 15:31 Magnesium Chloride W/Calcium 64mg Delayed Rel Tab PO 09/12/22 08:59 Not Given TID ARMANDO Miscellaneous 15 - 30 gm 08/13/22 05:12 08/15/22 11:51 Carbohydrates For Hypoglycemia PO 09/12/22 05:11 30 gm UD PRN Administration Hypoglycemia Protocol Morphine Sulfate 2 mg 08/14/22 14:02 08/14/22 14:16 Morphine Sulfate 2 Mg/Ml Carp IV 08/28/22 14:01 2 mg Q4H PRN Administration Pain Ondansetron HCl 4 mg 08/13/22 18:00 08/15/22 12:26 Ondansetron Inj 2 Mg/Ml 2 Ml Vial IV 09/12/22 17:59 4 mg Q6H ARMANDO Administration Tramadol HCl 50 mg 08/14/22 00:44 08/15/22 05:24 Tramadol Hcl 50 Mg Tablet PO 09/13/22 00:43 50 mg Q4H PRN Administration Moderate Pain Past Medical History Medical History Acute DVT (deep venous thrombosis) 2019> no known cause > Filter to right groin EMY (acute kidney injury) Anemia 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 no electronic 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 Chronic back pain Chronic deep vein thrombosis (DVT) 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 to alcohol Cough Diabetes NIDDM Diverticular hemorrhage resolved DVT (deep venous thrombosis) Elevated troponin I level Esophageal varices determined by endoscopy Fatty liver Fever GERD (gastroesophageal reflux disease) GI bleed none at present Hepatic encephalopathy Hyperlipemia Hypertension Hypomagnesemia Hypomagnesemia Hyponatremia Lactate blood increase Liver cirrhosis Lower leg edema Migraine Monoclonal gammopathy Obesity Osteoarthritis Presence of IVC filter Proteinuria Pulmonary embolism 2019 > no known cause > Filter to right groin Thrombocytopenia Vertigo Volume overload Vomiting and diarrhea Weakness Wheezing Exercise / Class Metabolic Activity III < 4 Walking/Shop/Light housework Past Family History Family History Mother Family history of diabetes mellitus Brother Family history of diabetes mellitus 3 brothers Colorectal cancer Myocardial infarction x 2 Father Myocardial infarction Denies family history of Ovarian cancer Prostate cancer Breast cancer Past Surgical History Surgical History History of bilateral breast reduction surgery History of bilateral cataract extraction History of carpal tunnel release of both wrists History of section x3 History of colonoscopy History of dilatation and curettage History of esophagogastroduodenoscopy (EGD) History of laparoscopic cholecystectomy History of lumbar spinal fusion hardware in place History of tonsillectomy History of tooth extraction all teeth History of total left knee replacement (TKR) History of total right knee replacement (TKR) Past Anesthesia History No Hx of Anesthesia Complications and No Family Hx of Anesthesia Complications History of PONV No Hx of PONV and No Hx of Motion Sickness Social History Smoking Status: Former smoker tobacco type: cigarettes Smoking cigarettes per day: stopped 55 years ago Hx Alcohol Use: No Alcohol type: other alcohol intake frequency: holidays/special occasions only Hx Substance Use: No substance use type: does not use Physical Exam Vital Signs Last Vital Signs Temp 36.8 C 08/15/22 11:10 Pulse 69 08/15/22 11:10 Resp 15 08/15/22 11:10 BP 104/61 08/15/22 11:10 Pulse Ox 98 08/15/22 11:10 O2 Del Method 08/15/22 11:10 O2 Flow Rate 2 08/15/22 11:10 FiO2 21 08/14/22 21:13 Testing Laboratory Results 08/15/22 07:24 PT 14.6 Seconds (9.0-12.0) H 08/12/22 01:18 INR 1.4 (0.9-1.1) H 08/12/22 01:18 Urine Color Yellow 08/15/22 13:00 Urine Appearance Cloudy (Clear) A 08/15/22 13:00 Urine pH 5.0 (4.5-7.5) 08/15/22 13:00 Ur Specific [place] 1.015 (1.000-1.030) 08/15/22 13:00 Urine Protein 1+ (Negative) H 08/15/22 13:00 Urine Glucose (UA) Negative (Negative) 08/15/22 13:00 Urine Ketones Negative (Negative) 08/15/22 13:00 Urine Nitrite Negative (Negative) 08/15/22 13:00 Ur Leukocyte Esterase 1+ (Negative) H 08/15/22 13:00 Urine WBC (Auto) >30 /hpf (0-5) H 08/13/22 05:10 Urine RBC (Auto) 5-10 /hpf (0-4) H 08/13/22 05:10 U Hyaline Cast (Auto) 1-5 /lpf (0-5) 08/13/22 05:10 U Epithel Cells (Auto) >30 /lpf (0-5) H 08/13/22 05:10 Urine Bacteria (Auto) 1+ (Negative) H 08/13/22 05:10 Urine RBC >30 /hpf (0-4) H 08/15/22 13:00 Urine WBC >30 /hpf (0-5) H 08/15/22 13:00 Ur Epithelial Cells 10-20 /lpf (0-5) H 08/15/22 13:00 08/13/22 05:10 Urine Culture - Final Urine,Indwelling Cath Gamma strep not enterococcus Lactobacillus species 08/13/22 01:22 Aerobic Blood Culture - Final Blood Group G Beta Strep Anaerobic Blood Culture - Final 08/13/22 01:22 Aerobic Blood Culture - Final Blood Group G Beta Strep Anaerobic Blood Culture - Final Group G Beta Strep 08/13/22 17:51 Aerobic Blood Culture - Preliminary Blood No growth in Aerobic bottle after 24 hours. Anaerobic Blood Culture - Preliminary No growth in Anaerobic bottle after 24 hours. 08/13/22 17:51 Aerobic Blood Culture - Preliminary Blood No growth in Aerobic bottle after 24 hours. Anaerobic Blood Culture - Preliminary No growth in Anaerobic bottle after 24 hours. 08/15/22 08/15/22 08/15/22 16:39 12:21 12:11 POC Glucose 105 H 204 H 224 H 08/15/22 08/15/22 11:47 07:34 POC Glucose 48 L* 70 Electrocardiogram Date: 08/14/22 Findings: + NSR @ (SR @ 82 w/ PAC's;LAFB) and + RBBB Chest X-Ray Date: 08/13/22 Findings: + cardiomegaly and + pulmonary vascular congestion Echocardiogram Date: 08/15/22 LV Function: normal RWMA: + none Other Findings: + diastolic dysfunction (Grade 2) Valvular Disease: + (moderate;Dimensionless index=0.3; mean gradient-27 mmhg;AVarea-0.88 cm 2) and + MR (mild MR;severe MAC) small posterior pericardial effusion; PAP-40 mm hg
[2022-08-15] MEDS: LIDOCAINE 5% 1 PATCH TD SCH (20:17)
[2022-08-15] MEDS: ACETAMINOPHEN 325 MG TAB PO SCH (20:20)
[2022-08-15 21:16] LABS: Calcium 8.4 mg/dl (8.5-10.1); Potassium 4.5 mmol/L (3.5-5.1)
[2022-08-15 21:21] LABS: BUN Creatinine Ratio 22.5 (10-20); Creatinine Clr Calc Pharmacy 16.1 ml/min; Est GFR (African American) 14.8 ml/min; Est GFR (Non-African American) 12.8 ml/min
[2022-08-15] MEDS: ATORVASTATIN 10 MG TAB PO SCH (21:35)
[2022-08-15] MEDS: FUROSEMIDE 40 MG/4 ML VIAL IV SCH (21:36)
[2022-08-16] MEDS: ONDANSETRON INJ 2 MG/ML 2 ML VIAL IV SCH ×4 (00:55→17:54)
[2022-08-16] MEDS: PROCHLORPERAZINE 5 MG in SYRINGE 4 ML IV PRN (05:00)
[2022-08-16] MEDS: LEVOTHYROXINE SODIUM 50 MCG TABLET PO SCH ×2 (05:41→05:43)
[2022-08-16] MEDS: ACETAMINOPHEN 325 MG TAB PO SCH ×4 (05:41→22:28)
--- NOTE | 2022-08-16 07:23 | Hospitalist Progress Note ---
Date of Service August 16, 2022 Assessment & Plan (1) Sepsis: (2) Chest pain: Plan: 76 yo F with PMH HTN, chronic DVT with IVC filter, aortic stenosis, HFpEF, MGUS, cirrhosis, DM2, HLD, ROSALES on CPAP, chronic back pain w/ history of lumbar stenosis s/p surgery with multiple recent hospitalizations. 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 Zosyn to Ceftriaxone for [employer] penetration and antibiotic narrowing - TTE without vegetations; would consider getting a DELFIN pending ID recommendations - Will consult ID for help with duration of treatment - Follow cultures --- Ongoing lethargy, patient now only responding to name and giving minimal history --- No leukocytosis, BUN 78 (rising), Cr 3.57 (rising), no hyperammonemia, ESR/CRP elevated, procalcitonin downtrending --- Blood cultures negative, repeat drawn 08/16 --- XR b/l knees unremarkable --- Unable to obtain DELFIN, patient unable to consent, discussed with family who wishes to hold off Back pain - Pt does have chronic back pain, suspect current pain largely due to such history and morbid obesity - She states that this pain is different from her normal back pain, with bacteremia and hardware from spinal fusion, concern for osteomyelitis vs hardware seeding --- CT Obtained, MRI cancelled d/t patient discomfort --- CT showing no acute fractures and degenerative changes w/o clear evidence of discitis or osteomyelitis, evidence of paravertebral edema at T8-T9 (lo ngstanding) --- Tylenol scheduled w/ Dilaudid 0.25 PRN for pain management Acute kidney injury in setting of CKD3 -Cr 2 on admission, baseline around 1 -Suspect secondary to hypovolemia - Creatine up to 2.72 yesterday evening, down to 2.58 this morning with 1L of fluid over the past 24 hours --- Cr 3.57 on 08/16, suspect possible component of fluid overload in association w/ known HFpEF --- Nephrology recommending Lasix 120 mg BID, renal medication dosing, and no need for [employer] at present, appreciate recommendations HFpEF - CXR with significant vascular congestion and pulmonary edema - Echocardiogram 07/2022- EF 55-60% --- Volume status challenging to differentiate, dry mucous membranes w/ lower and upper extremity edema --- Continue to diurese as above --- Closely follow I&O, continue Lynn Nausea/Abdominal Pain - KUB with Mild gaseous distention of the large and small bowel which may represent ileus, less likely partial obstruction - Is passing gas, no BM today - Tylenol prn for pain - Compezine, Famotidine, Zofran, Pantoprazole - Both pain and nausea improved --- Increasing abdominal firmness and tenderness, CTAP obtained suggestive of ileus, no obstruction of infection --- Will change to NPO for bowel rest and discontinue insulin Elevated troponin and chest pain - Initial Troponin 74 repeat 73 - EKG without acute ST change - Chest pain has resolved Cirrhosis - Continue lactulose - Holding spironolactone given low BP, will resume as BP tolerates - No concern for hepatic encephalopathy or liver failure at present - Trend CMP --- Elevated BUN, no hyperammonemia, mild ascites, increased abdominal discomfor t/firmness --- Unlikely contributor to lethargy, will follow Thrombocytopenia -Plts 98 on admission -Does appear chronic and at baseline, likely due to liver cirrhosis -Trend CBC --- Plts 59 downtrending, no active bleeding DM2 -Holding home glimepiride, metformin -Hold Lantus 5u BID until she is tolerating better PO intake, SSI ordered --- Hypoglycemic, received Dextrose w/ improvement HTN -Holding home lisinopril for EMY ROSALES -CPAP nightly HLD -Continue atorvastatin 10 mg Hypothyroidism -Continue levothyroxine Code status: DNR DVT ppx: SCDs, deferring chemical prophylaxis given thrombocytopenia Isolation: None Dispo: PT/OT ordered, anticipate need for rehab CM: Discussed palliative care consultation w/ family, declined at this time, will continue to discuss (3) CKD (chronic kidney disease): (4) Back pain: (5) Diabetes mellitus with peripheral vascular disease: (6) Streptococcal bacteremia: (7) Pneumonia: Admission and Anticipated Discharge Date Admission Date: August 13, 2022 Supervising Physician Co-Signing Physician Notes I personally examined the patient and verified all almanzar points of history and exam, discussed case, and agree with decision making with Dr Guardado. Subjective 1/24: Rosalind has continued to become more lethargic today and only minimally provides HPI, she notes today that she has pain througout her whole body. She declines to proceed with additional care measures at this time and states that she 'wishes she could be left alone'. Patient's grandson and son were at bedside this afternoon. Discussion of patient's diagnosis, treatment plan, and goals of care was initiated. Patient's grandson, who identifies as POA, noted that patient has been progressively declining over the past year, to the point where patient herself has accepted/stated that she is nearing the end. At baseline, family notes that patient is confused and lethargic, but her presentation during this admission has worsened from baseline. Following discussion with family, it was clarified that patient's wishes would be most consistent with DNR/DNI. The risk vs benefit of additional testing/procedures were discussed with family who opted to hold off on DELFIN at this time d/t risk, family is hopeful that diuresis will provided some clinical improvement over the next day and wish to re-discuss DELFIN in the future. The topic of palliative care resources were discussed with grandson and son, they expressed understanding, but declined to proceed at this time. Discussed with family for ~45 minutes. 08/15: Rosalind appeared lethargic this AM, she was laying in bed upon arrival and was unable to participate in the exam. She states that her back pain persists, but is somewhat improved. She denies any nausea or emesis, but states that she has experienced the sensation of fevers/chills. She denies chest pain, dyspnea, headaches, or abdominal pain. Nursing notes that patient declined to go to MRI yesterday d/t pain, but is agreeable to go this AM. In addition, she also experienced an episode of hypoglycemia which required dextrose. Discussed diagnoses and treatment plan with patients gilda Brower at length (~35 minutes), she expressed understanding Review of Systems Review of Systems: As per above Physical Exam Physical Exam: General: lethargic, obese HEENT: No overt JVD, dry mucous membranes CV: RRR, +systolic murmur over LUSB, normal S1 and S2 Resp: bibasilar crackles, mildly increased work of breathing, audible productive cough Abd: firm, mildly distended, moderate tenderness without rebound or guarding Ext: +1 pitting edema up to knees b/l, bilateral UE edema (symmetric) Neuro: AOx? (responds to name), no gross focal motor deficits Results & Data Results & Data ([facility]) Vital Signs (Past 12 Hours) Vital Signs Temp Pulse Pulse Resp BP BP Pulse Ox 08/16/22 04:00 36.2 C L 77 19 121/66 92 08/16/22 01:49 78 14 111/63 95 08/15/22 22:02 75 08/16/22 00:28 81 123/68 95 08/15/22 23:12 36.6 C 75 19 113/52 L 94 08/15/22 23:18 75 14 95 08/15/22 22:31 08/15/22 19:25 36.4 C L 74 16 125/76 91 O2 Del Method FiO2 08/16/22 04:00 Room Air, CPAP 08/16/22 01:49 CPAP 08/15/22 22:02 08/16/22 00:28 CPAP 08/15/22 23:12 Room Air 08/15/22 23:18 21 08/15/22 22:31 Room Air 08/15/22 19:25 Room Air Diagnostic Findings Knee X-Ray 08/16/22 06:58 XR knee RT 1 or 2V routine, XR knee LT 1 or 2V routine HISTORY: 76 years-old Female h/o TKA; bacteremia unknown source chronic bilateral knee pain COMPARISON: ] Radiographs 10/03/2021 TECHNIQUE: 2 views of the bilateral knees FINDINGS: RIGHT: Cortical thickening of the mid femoral diaphysis redemonstrated suggestive of a healed chronic fracture. Total joint arthroplasty with patellar resurfacing. No acute fracture, dislocation or evidence of hardware complication. Arterial calcifications. LEFT: Limited exam secondary to positioning. Unremarkable appearance of the total joint arthroplasty. No acute fracture, dislocation or large joint effusion. IMPRESSION: 1. No acute fracture or dislocation. 2. Unremarkable appearance of the bilateral knee total joint arthroplasties. ACT 112: Negative or not required by law. The above report was generated using voice recognition software. It may contain grammatical, syntax or spelling errors. Electronically signed by: Victor M Reyna M.D. 08/16/2022 9:59 AM Knee X-Ray 08/16/22 07:00 XR knee RT 1 or 2V routine, XR knee LT 1 or 2V routine HISTORY: 76 years-old Female h/o TKA; bacteremia unknown source chronic bilateral knee pain COMPARISON: ] Radiographs 10/03/2021 TECHNIQUE: 2 views of the bilateral knees FINDINGS: RIGHT: Cortical thickening of the mid femoral diaphysis redemonstrated suggestive of a healed chronic fracture. Total joint arthroplasty with patellar resurfacing. No acute fracture, dislocation or evidence of hardware complication. Arterial calcifications. LEFT: Limited exam secondary to positioning. Unremarkable appearance of the total joint arthroplasty. No acute fracture, dislocation or large joint effusion. IMPRESSION: 1. No acute fracture or dislocation. 2. Unremarkable appearance of the bilateral knee total joint arthroplasties. ACT 112: Negative or not required by law. The above report was generated using voice recognition software. It may contain grammatical, syntax or spelling errors. Electronically signed by: Victor M eRyna M.D. 08/16/2022 9:59 AM Abdomen/Pelvis CT 08/16/22 08:[address] WITHOUT CONTRAST CT DOSE: HISTORY: worsening abd distention, altered mental status, bacteremia, cirrhosis TECHNIQUE: Multiaxial CT images of the abdomen and pelvis were performed without contrast. A dose lowering technique was utilized adhering to the principles of ALARA. COMPARISON STUDY: Abdomen and pelvis CT 08/04/2022. FINDINGS: Small right and trace left pleural effusions with bibasilar densities favoring subsegmental atelectasis. The heart remains mildly enlarged. There is a trace pericardial effusion. Prominent anterior pericardial lymph node remains stable measuring up to 11 mm. No pneumoperitoneum. No pneumatosis. Posterior decompression and fusion from L4 through S1 with pedicle screws and rods. No acute fractures identified. Artifact along the right side the abdomen due to the patient's abdominal wall abutting the gantry. There is moderate body wall edema which has slightly progressed. There is a small amount of ascites. Nodular contour to the liver consistent with cirrhosis. This remains unchanged. The spleen is stable in size. Prior cholecystectomy. Mild gastrohepatic/pericaval lymphadenopathy remains unchanged. The adrenal glands are unremarkable. No renal stones or hydronephrosis. An IVC filter appears in good position. No retroperitoneal lymphadenopathy. The bladder is decompressed by Lynn catheter. The uterus and bilateral adnexa are unremarkable. Colonic diverticulosis. No evidence for acute diverticulitis. No bowel wall thickening. Mildly dilated gas and fluid-filled loops of large and small bowel are seen throughout the abdomen. No clear transition point to suggest obstruction. Therefore, this favors an ileus. IMPRESSION: 1. Mildly dilated gas and fluid-filled loops of large and small bowel are seen throughout the abdomen. No clear transition point to suggest obstruction. Therefore, this favors an ileus. 2. Cirrhotic liver with a small amount of ascites. 3. Moderate body wall edema. 4. A few prominent upper abdominal lymph nodes remain stable. This may related to the patient's underlying cirrhosis.. 5. Small right and trace left pleural effusions ACT 112: Negative or not required by law. Electronically signed by: Derian Kerns M.D. 08/16/2022 10:[address] 08/16/22 08:[address], LUMBAR SPINE CT CT DOSE: 2748.41 mGy.cm HISTORY: Mid and lower back pain. bacteremia unknown source, lumbar hardware TECHNIQUE: Multiaxial CT images of the thoracic and lumbar spine were performed and reformatted in the sagittal and coronal plane without the use of contrast. A dose lowering technique was utilized adhering to the principles of ALARA. COMPARISON: Thoracic and lumbar spine CT 02/28/2022. FINDINGS: THORACIC SPINE CT: There is a small right and trace left pleural effusion. Bibasilar densities favor atelectasis. A pneumonia could also have a similar appearance. No significant central canal narrowing by CT technique. Moderate to severe degenerative disc disease seen throughout the thoracic spine which is similar to the prior study. This is most pronounced at the T8-T9 level which demonstrates mild endplate sclerosis/irregularity and mild paravertebral edema. However, this is similar to the prior study and therefore favors long-standing degenerative change. No erosive changes to suggest a discitis/osteomyelitis at this time. Mild dextroscoliosis of the thoracic spine again noted. Lumbar spine CT: Posterior decompression and fusion from L4 through S1 with pedicle screws and rods. The hardware appears intact. The metallic artifact results in suboptimal evaluation of the lower lumbar spine. However, no acute fractures identified within the lumbar spine. The sacrum appears intact. Mild disc space narrowing within the upper to mid lumbar spine. No endplate erosive changes to suggest a discitis/osteomyelitis. Mild levoscoliosis of the lumbar spine, unchanged. No significant central canal narrowing by CT technique. Paravertebral soft tissues are unremarkable. An IVC filter is noted. IMPRESSION: 1. No acute fractures identified within the thoracic or lumbar spine. 2. Posterior decompression and fusion from L4 through S1 with pedicle screws and rods. The hardware appears intact. 3. No destructive changes to suggest a discitis/osteomyelitis. 4. Degenerative changes as described above most pronounced at the T8-T9 level which demonstrates mild paravertebral edema. This is similar to the prior study and therefore favors long-standing degenerative change. ACT 112: Negative or not required by law. Electronically signed by: Derian Kerns M.D. 08/16/2022 9:[address] 08/16/22 08:[address], LUMBAR SPINE CT CT DOSE: 2748.41 mGy.cm HISTORY: Mid and lower back pain. bacteremia unknown source, lumbar hardware TECHNIQUE: Multiaxial CT images of the thoracic and lumbar spine were performed and reformatted in the sagittal and coronal plane without the use of contrast. A dose lowering technique was utilized adhering to the principles of ALARA. COMPARISON: Thoracic and lumbar spine CT 02/28/2022. FINDINGS: THORACIC SPINE CT: There is a small right and trace left pleural effusion. Bibasilar densities favor atelectasis. A pneumonia could also have a similar appearance. No significant central canal narrowing by CT technique. Moderate to severe degenerative disc disease seen throughout the thoracic spine which is similar to the prior study. This is most pronounced at the T8-T9 level which demonstrates mild endplate sclerosis/irregularity and mild paravertebral edema. However, this is similar to the prior study and therefore favors long-standing degenerative change. No erosive changes to suggest a discitis/osteomyelitis at this time. Mild dextroscoliosis of the thoracic spine again noted. Lumbar spine CT: Posterior decompression and fusion from L4 through S1 with pedicle screws and rods. The hardware appears intact. The metallic artifact results in suboptimal evaluation of the lower lumbar spine. However, no acute fractures identified within the lumbar spine. The sacrum appears intact. Mild disc space narrowing within the upper to mid lumbar spine. No endplate erosive changes to suggest a discitis/osteomyelitis. Mild levoscoliosis of the lumbar spine, unchanged. No significant central canal narrowing by CT technique. Parav ertebral soft tissues are unremarkable. An IVC filter is noted. IMPRESSION: 1. No acute fractures identified within the thoracic or lumbar spine. 2. Posterior decompression and fusion from L4 through S1 with pedicle screws and rods. The hardware appears intact. 3. No destructive changes to suggest a discitis/osteomyelitis. 4. Degenerative changes as described above most pronounced at the T8-T9 level which demonstrates mild paravertebral edema. This is similar to the prior study and therefore favors long-standing degenerative change. ACT 112: Negative or not required by law. Electronically signed by: Derian Kerns M.D. 08/16/2022 9:58 AM Resident Activity Tracking Resident Involvement: Resident Care Provided Care Provided: Adult [facility] Medicine
[2022-08-16 07:37] LABS: Hemoglobin 9.3 g/dl (12.0-16.0); Mean Corpuscular Hemoglobin 27.3 pg (25.0-34.0); Mean Corpuscular Hgb Conc 32.1 g/dL (32.0-36.0); Mean Platelet Volume 11.3 fL (9.4-12.3); Platelet Count 59 K/uL (130-400); RDW Coefficient of Variation 16.7 % (11.5-14.5); RDW Standard Deviation 51.9 fL (36.4-46.3); Red Blood Count 3.41 M/uL (3.93-5.22); White Blood Count 8.46 K/ul (4.8-10.8)
[2022-08-16 08:01] LABS: Albumin Level 2.1 gm/dl (3.4-5.0); Bilirubin,Total 0.5 mg/dl (0.2-1.0); Calcium 8.4 mg/dl (8.5-10.1); Potassium 4.5 mmol/L (3.5-5.1)
[2022-08-16 08:07] LABS: Albumin Globulin Ratio 0.5 (0.9-2); BUN Creatinine Ratio 21.8 (10-20); C Reactive Protein 15.76 mg/dl (0-0.5); Creatinine Clr Calc Pharmacy 15.1 ml/min; Est GFR (African American) 13.4 ml/min; Est GFR (Non-African American) 11.6 ml/min; Phosphorus 5.3 mg/dl (2.5-4.9); Total Protein 6.1 gm/dl (6.0-8.3)
[2022-08-16] MEDS: HYDROmorphone INJ 0.5 MG/0.5 ML SYR IV PRN ×3 (08:29→23:59)
[2022-08-16] MEDS ORDERED: HYDROmorphone INJ 0.5 MG/0.5 ML SYR IV STA (08:33)
[2022-08-16] MEDS ORDERED: FAMOTIDINE 10 MG in SYRINGE 4 ML IV SCH (09:00)
[2022-08-16] MEDS: INSULIN ASPART PER UNIT SC SCH (09:18)
--- NOTE | 2022-08-16 10:00 | CT Scan Report ---
THORACIC SPINE CT, LUMBAR SPINE CT CT DOSE: 2748.41 mGy.cm HISTORY: Mid and lower back pain. bacteremia unknown source, lumbar hardware TECHNIQUE: Multiaxial CT images of the thoracic and lumbar spine were performed and reformatted in th e sagittal and coronal plane without the use of contrast. A dose lowering technique was utilized adh ering to the principles of ALARA. COMPARISON: Thoracic and lumbar spine CT 02/28/2022. FINDINGS: THORACIC SPINE CT: There is a small right and trace left pleural effusion. Bibasilar densities favor atelectasis. A pneumonia could also have a similar appearance. No significant central canal narrowing by CT technique. Moderate to severe degenerative disc disease seen throughout the thoracic spine whi ch is similar to the prior study. This is most pronounced at the T8-T9 level which demonstrates mild endplate sclerosis/irregularity and mild paravertebral edema. However, this is similar to the prior s tudy and therefore favors long-standing degenerative change. No erosive changes to suggest a discitis /osteomyelitis at this time. Mild dextroscoliosis of the thoracic spine again noted. Lumbar spine CT: Posterior decompression and fusion from L4 through S1 with pedicle screws and rods. The hardware appears intact. The metallic artifact results in suboptimal evaluation of the lower lumb ar spine. However, no acute fractures identified within the lumbar spine. The sacrum appears intact. Mild disc space narrowing within the upper to mid lumbar spine. No endplate erosive changes to sugges t a discitis/osteomyelitis. Mild levoscoliosis of the lumbar spine, unchanged. No significant central canal narrowing by CT technique. Paravertebral soft tissues are unremarkable. An IVC filter is noted . IMPRESSION: 1. No acute fractures identified within the thoracic or lumbar spine. 2. Posterior decompression and fusion from L4 through S1 with pedicle screws and rods. The hardware a ppears intact. 3. No destructive changes to suggest a discitis/osteomyelitis. 4. Degenerative changes as described above most pronounced at the T8-T9 level which demonstrates mild paravertebral edema. This is similar to the prior study and therefore favors long-standing degenerat matt change. ACT 112: Negative or not required by law. Electronically signed by: Derian Kerns M.D. 08/16/2022 9:58 AM
--- NOTE | 2022-08-16 10:01 | XRay Report ---
XR knee RT 1 or 2V routine, XR knee LT 1 or 2V routine HISTORY: 76 years-old Female h/o TKA; bacteremia unknown source chronic bilateral knee pain COMPARISON: ] Radiographs 10/03/2021 TECHNIQUE: 2 views of the bilateral knees FINDINGS: RIGHT: Cortical thickening of the mid femoral diaphysis redemonstrated suggestive of a healed chronic fractu re. Total joint arthroplasty with patellar resurfacing. No acute fracture, dislocation or evidence of hardware complication. Arterial calcifications. LEFT: Limited exam secondary to positioning. Unremarkable appearance of the total joint arthroplasty. No ac [place] fork fracture, dislocation or large joint effusion. IMPRESSION: 1. No acute fracture or dislocation. 2. Unremarkable appearance of the bilateral knee total joint arthroplasties. ACT 112: Negative or not required by law. The above report was generated using voice recognition software. It may contain grammatical, syntax o r spelling errors. Electronically signed by: Victor M Reyna M.D. 08/16/2022 9:59 AM
--- NOTE | 2022-08-16 10:01 | XRay Report ---
XR knee RT 1 or 2V routine, XR knee LT 1 or 2V routine HISTORY: 76 years-old Female h/o TKA; bacteremia unknown source chronic bilateral knee pain COMPARISON: ] Radiographs 10/03/2021 TECHNIQUE: 2 views of the bilateral knees FINDINGS: RIGHT: Cortical thickening of the mid femoral diaphysis redemonstrated suggestive of a healed chronic fractu re. Total joint arthroplasty with patellar resurfacing. No acute fracture, dislocation or evidence of hardware complication. Arterial calcifications. LEFT: Limited exam secondary to positioning. Unremarkable appearance of the total joint arthroplasty. No ac apache fracture, dislocation or large joint effusion. IMPRESSION: 1. No acute fracture or dislocation. 2. Unremarkable appearance of the bilateral knee total joint arthroplasties. ACT 112: Negative or not required by law. The above report was generated using voice recognition software. It may contain grammatical, syntax o r spelling errors. Electronically signed by: Victor M Reyna M.D. 08/16/2022 9:59 AM
[2022-08-16] MEDS: MAGNESIUM CHLORIDE W/CALCIUM 64MG DELAYED REL TAB PO SCH ×3 (10:05→21:49)
[2022-08-16] MEDS: LACTULOSE SYRUP 30 GM/45 ML UDP PO SCH ×2 (10:05→21:48)
[2022-08-16] MEDS: PANTOprazole 40 MG in SYRINGE 0 ML IV SCH ×2 (10:07→21:48)
[2022-08-16] MEDS: FAMOTIDINE 20 MG in SYRINGE 3 ML IV SCH (10:15)
[2022-08-16] MEDS: cefTRIAXone SODIUM 2,000 MG in DEXTROSE 5% 50 ML IV SCH (10:17)
--- NOTE | 2022-08-16 10:19 | CT Scan Report ---
ABDOMEN AND PELVIS CT WITHOUT CONTRAST CT DOSE: HISTORY: worsening abd distention, altered mental status, bacteremia, cirrhosis TECHNIQUE: Multiaxial CT images of the abdomen and pelvis were performed without contrast. A dose lo wering technique was utilized adhering to the principles of ALARA. COMPARISON STUDY: Abdomen and pelvis CT 08/04/2022. FINDINGS: Small right and trace left pleural effusions with bibasilar densities favoring subsegmental atelectasis. The heart remains mildly enlarged. There is a trace pericardial effusion. Prominent ant erior pericardial lymph node remains stable measuring up to 11 mm. No pneumoperitoneum. No pneumatosi s. Posterior decompression and fusion from L4 through S1 with pedicle screws and rods. No acute fract ures identified. Artifact along the right side the abdomen due to the patient's abdominal wall abutti ng the gantry. There is moderate body wall edema which has slightly progressed. There is a small amou nt of ascites. Nodular contour to the liver consistent with cirrhosis. This remains unchanged. The sp jesusita is stable in size. Prior cholecystectomy. Mild gastrohepatic/pericaval lymphadenopathy remains u nchanged. The adrenal glands are unremarkable. No renal stones or hydronephrosis. An IVC filter appea rs in good position. No retroperitoneal lymphadenopathy. The bladder is decompressed by Lynn cathete r. The uterus and bilateral adnexa are unremarkable. Colonic diverticulosis. No evidence for acute di verticulitis. No bowel wall thickening. Mildly dilated gas and fluid-filled loops of large and small bowel are seen throughout the abdomen. No clear transition point to suggest obstruction. Therefore, t his favors an ileus. IMPRESSION: 1. Mildly dilated gas and fluid-filled loops of large and small bowel are seen throughout the abdomen . No clear transition point to suggest obstruction. Therefore, this favors an ileus. 2. Cirrhotic liver with a small amount of ascites. 3. Moderate body wall edema. 4. A few prominent upper abdominal lymph nodes remain stable. This may related to the patient's under lying cirrhosis.. 5. Small right and trace left pleural effusions ACT 112: Negative or not required by law. Electronically signed by: Derian Kerns M.D. 08/16/2022 10:17 AM
[2022-08-16] MEDS: FUROSEMIDE 40 MG/4 ML VIAL IV SCH ×2 (10:25→17:01)
[2022-08-16] MEDS ORDERED: INSULIN ASPART PER UNIT SC SCH ×2 (10:45→12:00)
[2022-08-16] MEDS: DEXTROSE 50% 50 ML SYRINGE IV PRN ×3 (12:32→23:58)
--- NOTE | 2022-08-16 12:49 | Nephrology Progress Note ---
Date of Service August 16, 2022 Assessment & Plan (1) EMY (acute kidney injury): (2) Volume overload: (3) Lower leg edema: (4) Streptococcal bacteremia: (5) Anemia: Plan 76-year-old female with multiple comorbidities including morbid obesity, recent GI bleeding, repeated episodes of EMY ( b/l cr 1.2) with volume depletion, admitted to hospital with EMY, generalized weakness, bacteremia and volume overload. Renal function has been rapidly worsening over last few days, on admi ssion it is 2.5 which has been worsening. Has moderate degree proteinuria with history of hypertension, diabetes, MGUS. Rapid worsening of renal function with volume overload and decreased urine out put could be secondary to combinations of intravascular volume depletion with hypoalbuminemia as well as renovascular congestion. overall more than 6 L positive since admission. Suboptimal respond to IV diuretics. creatinine up to 3.6. Epogen 12871 units x 1 dose given on 08/15/22 -- Increase Lasix to 120 mg twice a day, accurate intake and output, monitor renal function, electrolyte closely while on diuretic. -- dose meds for eGFR <15 -- no acute indication for [employer]EL[employer] at this time. Will continue to monitor closely. Admission and Anticipated Discharge Date Admission Date: August 13, 2022 Alfredito Boyer was off floor for MRI and was not seen in person. Labs, vitals and imaging reports reviewed, discussed with care team. UO remains low despite getting IV diuretics although not requiring supplemental O2, imaging shows significant volume overload. Renal function continues to worsen, electrolyte acceptable. Remained lethargic. Leukocytosis improved. BP fair. Results & Data ([facility]) Vital Signs (Past 12 Hours) Vital Signs Temp Pulse Pulse Resp BP Pulse Ox O2 Del Method 08/16/22 12:40 36.5 C 80 19 135/79 94 Room Air 08/16/22 10:34 Room Air 08/16/22 07:57 78 08/16/22 07:32 36.8 C 92 H 16 175/86 H 90 Room Air 08/16/22 04:00 36.2 C L 77 19 121/66 92 Room Air, CPAP 08/16/22 01:49 78 14 111/63 95 CPAP PG Care Time/CCT Total # of Minutes Spent Total Time Spent with Patient: Total time spent is greater than 50% in coordination of care (as documented) at patient's floor/unit and/or counseling patient: Coding Level of Care Code 42474 SUB INP/OBS CARE 235MIN Diagnoses EMY (acute kidney injury) N17.9 Volume overload E87.70 Lower leg edema R60.0 Streptococcal bacteremia R78.81; B95.5 Anemia D64.9
--- NOTE | 2022-08-16 15:23 | Infectious Disease Progress Nt ---
Date of Service August 16, 2022 Assessment & Plan (1) Streptococcal bacteremia: (2) Leukocytosis: (3) Sepsis: (4) EMY (acute kidney injury): (5) Chronic back pain: Plan This is a 76-year-old female with past medical history of hypertension, chronic deep vein thrombosis of RLE sp IVC filter, chronic back pain sp spinal fusion, mod-severe aortic stenosis, monoclonal gammopathy of unknown significance, nonalcoholic fatty liver with cirrhosis, diabetes, ROSALES who was recently admitted 08/04/22-08/09/22 for hepatic encephalopathy and EMY. Prior to this, she was admitted 07/28/21-08/01/21 for diverticular bleed. She presents a few days after last discharge on 08/13 with increased fatigue and marked increase in back pain. She denies any steroid injections of spine or recent back trauma or falls. In the Ed she is afebrile and hemodynamically stable. Admission labs noted for WBC 18.50 , creatinine 2.039, platelets 98, crp 18.21, procalcitonin 28.12, lactate 4.9, troponin 74, urine cx + gamma strep and lactobacillus and BC + i 3/4 bottles for Group g streptococcus. Cxr shows cardiomegaly and mild pulmonary edema. An abdominal xray shows An IVC filter ,posterior fixation hardware and gaseous distention of the large bowel and small intestine. She was started on Zosyn and is now on Ceftriaxone. A TTE shows evidence of moderate Aortic stenosis. There is no valve vegetation noted. She is pending MRI spine. On my interview , she is awake and alert and complains of severe back pain ( more than her baseline) and right knee pain and swelling. She denies fever, chills, sweats, skin rash, change in urine or bowel habits, ab pain, n/v, sob, chest pain. Id consulted for evaluation of Group G streptococcus bacteremia. Micro: Bc 08/13 ( 1:22) 3/4 bottles group G strep Bc 08/13 1751) NGTD UC 08/13 Gamma strep not enterococcus, Lactobacillus species Blood Culture Aerobic Final 08/15/22-1017 Organism 1 Group G Beta Strep Sens Sensitivities to Follow Phoned positive Blood Culture Gram Stain report to Jessica Sims on 08/13/22 at 1328 [place] [id number]. [place] [id number]. Grp.G Strp RX M.I.C. --- --------- Ampicillin S <=0.06 Azithromycin S <=0.25 Cefepime S <=0.25 Cefotaxime S <=0.25 Ceftriaxone S <=0.25 Chloramphenicol S 2 Clindamycin S <=0.06 Erythromycin S <=0.06 Penicillin S <=0.03 Vancomycin S 0.5 Abx: zosyn 08/13-08/15 ceftriaxone 08/15- ongoin. Group G Beta hemolytic streptococcus bacteremia of unknown origin ( ? gi, endovascular, spine) 2. Acute on chronic back pain 3. Spinal fusion with hardware in place 4. Moderate Aortic stenosis 5. History of B/L TKA 6. R> L LE edema 7. Right above AC fossa edema and ttp 8. EMY 9. Chronic thrombocytopenia 10.Ileus on imaging Discussion. She presents with acute on chronic back in setting of Group G streptococcus bacteremia. She is also noted to have BL knee edema/pain, has a history of BL TKA and moderate Aortic stenosis on TTE with corresponding murmur on exam without evidence of valve vegetation ( but limited echo study). Possibe sources of her bacteremia include Spinal infection, endocarditis or prosthetic joint infection/septic arthritis given the exam findings, presence of hardware and valve abnormalities. it is noted that she had a diverticular bleed earlier in the month, but none currently. She has no evidence of GI infection based on symptoms and physical exam. However , a CT abdomen done on 08/16 shows findings suggestive of ileus, making a GI source of bacteremia possible. She has a mild ttp and swelling and firmness above the AC fossa which could represent soft tissue infection vs superficial phlebitis vs DVt at site of ? prior IV site.She is noted to have gamma streptococcus on urine culture but no urinary symptoms. To date Ct thoracic and lumbar spine w.o contrast shows no findings suggestive of osteo or disckitis, intact l4- s1 hardware, long standing degenerative changes at thoracic spine. A limited MRI was done as she was unable to tolerate that showed no acute fractures or enhancements. BL knee xrays shows unremarkable appearing bilateral knee total joint arthroplasties. DELFIN pending . ESR elevated at 89 Her WBc has normalized to 8.46. Procal has improved to 7.04. Cr up to 3.57 Recommendations: Continue ceftriaxone 2 g iv q 24hours for now Can likely deescalate if only Gr oup Strep identified in BC finalization , repeat BC. Follow up Repeat BC from 08/16 to ensure blood culture clearance Check DELFIN Remove martino if not needed. Check R UE US Final duration of antibiotic therapy will depend on etiology and persistence of bacteremia. Discussed recs with team. ID will continue to follow. Corwin Gupta MD, MPH [facility], [facility] Call [phone] with questions Admission and Anticipated Discharge Date Admission Date: August 13, 2022 Subjective Subsequent visit was provided via telemedicine using two-way real-time interactive telecommunication between the patient and the telemedicine provider. For the duration of the visit, the provider was performing the assessment from a different facility than the patient. This includesuse of bluetooth stethoscope forauscultationperformed by the telepresenter that the telemedicine provider can hear if described in the physical exam. Facilities Maintenance Assistant contact information: Please call [facility] Call Center [phone]. (Phone Number For Physician Use Only) After establishing a telemedicine visit, patient was: Patient/authorized rep acknowledged consent and understanding and Gave permission to continue telehealth session Time Spent with Patient: Subsequent => 35 min Afebrile WBc has normalized to 8.46 Cr up to 3.57 PLTs down to 59 ESR 89 Continues to complain of back pain. She was unable to tolerate an MRI ( limited study) and underwent CT thoracic/ lumbar spine and abdomen without contrast : No destructive changes to suggest a discitis/osteomyelitis.. CT abdomen noted for ? ileus. XRy of BL knee- Unremarkable bilateral knee total joint arthroplasties. Repeat BC results pending. Multiple episodes of hypoglycemia Procal down to 7.04 She complains of diarrhea today, but is receiving lactulose Physical Exam Constitutional: Awake, moderate distress 2/2 back pain , chronically ill appearing, obese Eyes: EOMI Respiratory: No increased work of breathing Cardiovascular: RRR, 3/6 SHAWN Gastrointestinal (Abdomen): obese , soft, distended, not tender Musculoskeletal: ++ TTP spinal and paraspinal tenderness to palpation Right LE edema >>Left LE RIght Knee swelling and tenderness BL TKA well healed incisions. Right above AC fossa edema and ttp Neurologic: Awake, less interactive today Genitourinary: + martino Results & Data ([facility]) Vital Signs (Past 12 Hours) Vital Signs Temp Pulse Pulse Resp BP Pulse Ox O2 Del Method 08/16/22 14:16 Room Air 08/16/22 14:16 81 08/16/22 12:40 36.5 C 80 19 135/79 94 Room Air 08/16/22 10:34 Room Air 08/16/22 07:57 78 08/16/22 07:32 36.8 C 92 H 16 175/86 H 90 Room Air 08/16/22 04:00 36.2 C L 77 19 121/66 92 Room Air, CPAP Laboratory Results Laboratory Results - last 48 hr 08/14/22 08/14/22 08/15/22 16:43 20:53 07:24 WBC 13.36 H RBC 3.18 L Hgb 8.6 L Hct 27.0 L MCV 84.9 MCH 27.0 MCHC 31.9 L RDW Std Deviation 52.1 H RDW Coeff of Leah 16.9 H Plt Count 78 L MPV 12.0 Immature Gran % (Auto) 0.4 Neut % (Auto) 77.8 Lymph % (Auto) 9.4 [place] % (Auto) 11.2 Eos % (Auto) 1.0 Baso % (Auto) 0.2 Neut # (Auto) 10.40 H Lymph # (Auto) 1.25 [place] # (Auto) 1.50 H Eos # (Auto) 0.13 Baso # (Auto) 0.03 Immature Gran # (Auto) 0.05 H Dohle Bodies 1+ ESR Sodium Potassium Chloride Carbon Dioxide Anion Gap BUN Creatinine Est Cr Clr Drug Dosing Est GFR ( Amer) Est GFR (Non-Af Amer) BUN/Creatinine Ratio Glucose POC Glucose 112 H 114 H Calcium Phosphorus Magnesium Total Bilirubin AST ALT Alkaline Phosphatase Ammonia C-Reactive Protein Total Protein Albumin Globulin Albumin/Globulin Ratio Procalcitonin Urine Color Urine Appearance Urine pH Ur Specific [place] Urine Protein Urine Glucose (UA) Urine Ketones Urine Blood Urine Nitrite Urine Bilirubin Urine Urobilinogen Ur Leukocyte Esterase Urine RBC Urine WBC Ur Epithelial Cells Urine Bacteria Ur Random Creatinine Ur Random Sodium 08/15/22 08/15/22 08/15/22 07:24 07:34 11:47 WBC RBC Hgb Hct MCV MCH MCHC RDW Std Deviation RDW Coeff of Leah Plt Count MPV Immature Gran % (Auto) Neut % (Auto) Lymph % (Auto) [place] % (Auto) Eos % (Auto) Baso % (Auto) Neut # (Auto) Lymph # (Auto) [place] # (Auto) Eos # (Auto) Baso # (Auto) Immature Gran # (Auto) Dohle Bodies ESR Sodium 134 L Potassium 4.9 Chloride 104 Carbon Dioxide 25 Anion Gap 5 BUN 71 H Creatinine 3.19 H D Est Cr Clr Drug Dosing 16.6 Est GFR ( Amer) 15.4 Est GFR (Non-Af Amer) 13.3 BUN/Creatinine Ratio 22.3 H Glucose 61 L POC Glucose 70 48 L* Calcium 8.0 L Phosphorus 4.9 Magnesium 1.7 Total Bilirubin 0.6 AST 28 ALT 15 Alkaline Phosphatase 74 Ammonia C-Reactive Protein Total Protein 5.7 L Albumin 2.0 L Globulin 3.7 Albumin/Globulin Ratio 0.5 L Procalcitonin Urine Color Urine Appearance Urine pH Ur Specific [place] Urine Protein Urine Glucose (UA) Urine Ketones Urine Blood Urine Nitrite Urine Bilirubin Urine Urobilinogen Ur Leukocyte Esterase Urine RBC Urine WBC Ur Epithelial Cells Urine Bacteria Ur Random Creatinine Ur Random Sodium 08/15/22 08/15/22 08/15/22 12:11 12:21 13:00 WBC RBC Hgb Hct MCV MCH MCHC RDW Std Deviation RDW Coeff of Leah Plt Count MPV Immature Gran % (Auto) Neut % (Auto) Lymph % (Auto) [place] % (Auto) Eos % (Auto) Baso % (Auto) Neut # (Auto) Lymph # (Auto) [place] # (Auto) Eos # (Auto) Baso # (Auto) Immature Gran # (Auto) Dohle Bodies ESR Sodium Potassium Chloride Carbon Dioxide Anion Gap BUN Creatinine Est Cr Clr Drug Dosing Est GFR ( Amer) Est GFR (Non-Af Amer) BUN/Creatinine Ratio Glucose POC Glucose 224 H 204 H Calcium Phosphorus Magnesium Total Bilirubin AST ALT Alkaline Phosphatase Ammonia C-Reactive Protein Total Protein Albumin Globulin Albumin/Globulin Ratio Procalcitonin Urine Color Yellow Urine Appearance Cloudy A Urine pH 5.0 Ur Specific [place] 1.015 Urine Protein 1+ H Urine Glucose (UA) Negative Urine Ketones Negative Urine Blood 3+ H Urine Nitrite Negative Urine Bilirubin Negative Urine Urobilinogen Negative Ur Leukocyte Esterase 1+ H Urine RBC >30 H Urine WBC >30 H Ur Epithelial Cells 10-20 H Urine Bacteria 1+ H Ur Random Creatinine Ur Random Sodium 08/15/22 08/15/22 08/15/22 13:00 16:24 16:39 WBC RBC Hgb Hct MCV MCH MCHC RDW Std Deviation RDW Coeff of Leah Plt Count MPV Immature Gran % (Auto) Neut % (Auto) Lymph % (Auto) [place] % (Auto) Eos % (Auto) Baso % (Auto) Neut # (Auto) Lymph # (Auto) [place] # (Auto) Eos # (Auto) Baso # (Auto) Immature Gran # (Auto) Dohle Bodies ESR Sodium 134 L Potassium 4.5 Chloride 103 Carbon Dioxide 25 Anion Gap 6 BUN 74 H Creatinine 3.29 H Est Cr Clr Drug Dosing 16.1 Est GFR ( Amer) 14.8 Est GFR (Non-Af Amer) 12.8 BUN/Creatinine Ratio 22.5 H Glucose 103 H POC Glucose 105 H Calcium 8.4 L Phosphorus Magnesium Total Bilirubin AST ALT Alkaline Phosphatase Ammonia C-Reactive Protein Total Protein Albumin Globulin Albumin/Globulin Ratio Procalcitonin Urine Color Urine Appearance Urine pH Ur Specific [place] Urine Protein Urine Glucose (UA) Urine Ketones Urine Blood Urine Nitrite Urine Bilirubin Urine Urobilinogen Ur Leukocyte Esterase Urine RBC Urine WBC Ur Epithelial Cells Urine Bacteria Ur Random Creatinine 94.0 Ur Random Sodium < 10 08/15/22 08/16/22 08/16/22 20:40 00:01 00:34 WBC RBC Hgb Hct MCV MCH MCHC RDW Std Deviation RDW Coeff of Leah Plt Count MPV Immature Gran % (Auto) Neut % (Auto) Lymph % (Auto) [place] % (Auto) Eos % (Auto) Baso % (Auto) Neut # (Auto) Lymph # (Auto) [place] # (Auto) Eos # (Auto) Baso # (Auto) Immature Gran # (Auto) Dohle Bodies ESR Sodium Potassium Chloride Carbon Dioxide Anion Gap BUN Creatinine Est Cr Clr Drug Dosing Est GFR ( Amer) Est GFR (Non-Af Amer) BUN/Creatinine Ratio Glucose POC Glucose 110 H 121 H 99 Calcium Phosphorus Magnesium Total Bilirubin AST ALT Alkaline Phosphatase Ammonia C-Reactive Protein Total Protein Albumin Globulin Albumin/Globulin Ratio Procalcitonin Urine Color Urine Appearance Urine pH Ur Specific [place] Urine Protein Urine Glucose (UA) Urine Ketones Urine Blood Urine Nitrite Urine Bilirubin Urine Urobilinogen Ur Leukocyte Esterase Urine RBC Urine WBC Ur Epithelial Cells Urine Bacteria Ur Random Creatinine Ur Random Sodium 08/16/22 08/16/22 08/16/22 03:55 06:52 06:52 WBC 8.46 RBC 3.41 L Hgb 9.3 L Hct 29.0 L MCV 85.0 MCH 27.3 MCHC 32.1 RDW Std Deviation 51.9 H RDW Coeff of Leah 16.7 H Plt Count 59 L MPV 11.3 Immature Gran % (Auto) Neut % (Auto) Lymph % (Auto) [place] % (Auto) Eos % (Auto) Baso % (Auto) Neut # (Auto) Lymph # (Auto) [place] # (Auto) Eos # (Auto) Baso # (Auto) Immature Gran # (Auto) Dohle Bodies ESR Sodium 135 L Potassium 4.5 Chloride 103 Carbon Dioxide 25 Anion Gap 7 BUN 78 H Creatinine 3.57 H Est Cr Clr Drug Dosing 15.1 Est GFR ( Amer) 13.4 Est GFR (Non-Af Amer) 11.6 BUN/Creatinine Ratio 21.8 H Glucose 77 POC Glucose 106 H Calcium 8.4 L Phosphorus 5.3 H Magnesium Total Bilirubin 0.5 AST 24 ALT 15 Alkaline Phosphatase 80 Ammonia C-Reactive Protein 15.76 H Total Protein 6.1 Albumin 2.1 L Globulin 4.0 Albumin/Globulin Ratio 0.5 L Procalcitonin Urine Color Urine Appearance Urine pH Ur Specific [place] Urine Protein Urine Glucose (UA) Urine Ketones Urine Blood Urine Nitrite Urine Bilirubin Urine Urobilinogen Ur Leukocyte Esterase Urine RBC Urine WBC Ur Epithelial Cells Urine Bacteria Ur Random Creatinine Ur Random Sodium 08/16/22 08/16/22 08/16/22 07:48 07:59 08:58 WBC RBC Hgb Hct MCV MCH MCHC RDW Std Deviation RDW Coeff of Leah Plt Count MPV Immature Gran % (Auto) Neut % (Auto) Lymph % (Auto) [place] % (Auto) Eos % (Auto) Baso % (Auto) Neut # (Auto) Lymph # (Auto) [place] # (Auto) Eos # (Auto) Baso # (Auto) Immature Gran # (Auto) Dohle Bodies ESR 89 H Sodium Potassium Chloride Carbon Dioxide Anion Gap BUN Creatinine Est Cr Clr Drug Dosing Est GFR ( Amer) Est GFR (Non-Af Amer) BUN/Creatinine Ratio Glucose POC Glucose 73 Calcium Phosphorus Magnesium Total Bilirubin AST ALT Alkaline Phosphatase Ammonia Cancelled C-Reactive Protein Total Protein Albumin Globulin Albumin/Globulin Ratio Procalcitonin Urine Color Urine Appearance Urine pH Ur Specific [place] Urine Protein Urine Glucose (UA) Urine Ketones Urine Blood Urine Nitrite Urine Bilirubin Urine Urobilinogen Ur Leukocyte Esterase Urine RBC Urine WBC Ur Epithelial Cells Urine Bacteria Ur Random Creatinine Ur Random Sodium 08/16/22 08/16/22 08/16/22 08:58 10:13 12:19 WBC RBC Hgb Hct MCV MCH MCHC RDW Std Deviation RDW Coeff of Leah Plt Count MPV Immature Gran % (Auto) Neut % (Auto) Lymph % (Auto) [place] % (Auto) Eos % (Auto) Baso % (Auto) Neut # (Auto) Lymph # (Auto) [place] # (Auto) Eos # (Auto) Baso # (Auto) Immature Gran # (Auto) Dohle Bodies ESR Sodium Potassium Chloride Carbon Dioxide Anion Gap BUN Creatinine Est Cr Clr Drug Dosing Est GFR ( Amer) Est GFR (Non-Af Amer) BUN/Creatinine Ratio Glucose POC Glucose 54 L* Calcium Phosphorus Magnesium Total Bilirubin AST ALT Alkaline Phosphatase Ammonia 61.0 C-Reactive Protein Total Protein Albumin Globulin Albumin/Globulin Ratio Procalcitonin 7.09 H Urine Color Urine Appearance Urine pH Ur Specific [place] Urine Protein Urine Glucose (UA) Urine Ketones Urine Blood Urine Nitrite Urine Bilirubin Urine Urobilinogen Ur Leukocyte Esterase Urine RBC Urine WBC Ur Epithelial Cells Urine Bacteria Ur Random Creatinine Ur Random Sodium 08/16/22 08/16/22 08/16/22 12:25 12:49 13:16 WBC RBC Hgb Hct MCV MCH MCHC RDW Std Deviation RDW Coeff of Leah Plt Count MPV Immature Gran % (Auto) Neut % (Auto) Lymph % (Auto) [place] % (Auto) Eos % (Auto) Baso % (Auto) Neut # (Auto) Lymph # (Auto) [place] # (Auto) Eos # (Auto) Baso # (Auto) Immature Gran # (Auto) Dohle Bodies ESR Sodium Potassium Chloride Carbon Dioxide Anion Gap BUN Creatinine Est Cr Clr Drug Dosing Est GFR ( Amer) Est GFR (Non-Af Amer) BUN/Creatinine Ratio Glucose POC Glucose 67 L* 58 L* 108 H Calcium Phosphorus Magnesium Total Bilirubin AST ALT Alkaline Phosphatase Ammonia C-Reactive Protein Total Protein Albumin Globulin Albumin/Globulin Ratio Procalcitonin Urine Color Urine Appearance Urine pH Ur Specific [place] Urine Protein Urine Glucose (UA) Urine Ketones Urine Blood Urine Nitrite Urine Bilirubin Urine Urobilinogen Ur Leukocyte Esterase Urine RBC Urine WBC Ur Epithelial Cells Urine Bacteria Ur Random Creatinine Ur Random Sodium Diagnostic Findings Microbiology 08/13/22 17:51 Blood Aerobic Blood Culture - Preliminary No growth in Aerobic bottle after 48 hours. 08/13/22 17:51 Blood Anaerobic Blood Culture - Preliminary No growth in Anaerobic bottle after 48 hours. 08/13/22 17:51 Blood Aerobic Blood Culture - Preliminary No growth in Aerobic bottle after 48 hours. 08/13/22 17:51 Blood Anaerobic Blood Culture - Preliminary No growth in Anaerobic bottle after 48 hours. 08/13/22 05:10 Urine,Indwelling Cath Urine Culture - Final Gamma strep not enterococcus Lactobacillus species 08/13/22 01:22 Blood Aerobic Blood Culture - Final Group G Beta Strep 08/13/22 01:22 Blood Anaerobic Blood Culture - Final 08/13/22 01:22 Blood Aerobic Blood Culture - Final Group G Beta Strep 08/13/22 01:22 Blood Anaerobic Blood Culture - Final Group G Beta Strep Knee BL X-Ray 08/16/22 06:58 XR knee RT 1 or 2V routine, XR knee LT 1 or 2V routine HISTORY: 76 years-old Female h/o TKA; bacteremia unknown source chronic bilateral knee pain COMPARISON: ] Radiographs 10/03/2021 TECHNIQUE: 2 views of the bilateral knees FINDINGS: RIGHT: Cortical thickening of the mid femoral diaphysis redemonstrated suggestive of a healed chronic fracture. Total joint arthroplasty with patellar resurfacing. No acute fracture, dislocation or evidence of hardware complication. Arterial calcifications. LEFT: Limited exam secondary to positioning. Unremarkable appearance of the total joint arthroplasty. No acute fracture, dislocation or large joint effusion. IMPRESSION: 1. No acute fracture or dislocation. 2. Unremarkable appearance of the bilateral knee total joint arthroplasties. Abdomen/Pelvis CT 08/16/22 08:[address] WITHOUT CONTRAST CT DOSE: HISTORY: worsening abd distention, altered mental status, bacteremia, cirrhosis TECHNIQUE: Multiaxial CT images of the abdomen and pelvis were performed without contrast. A dose lowering technique was utilized adhering to the principles of ALARA. COMPARISON STUDY: Abdomen and pelvis CT 08/04/2022. FINDINGS: Small right and trace left pleural effusions with bibasilar densities favoring subsegmental atelectasis. The heart remains mildly enlarged. There is a trace pericardial effusion. Prominent anterior pericardial lymph node remains stable measuring up to 11 mm. No pneumoperitoneum. No pneumatosis. Posterior decompression and fusion from L4 through S1 with pedicle screws and rods. No acute fractures identified. Artifact along the right side the abdomen due to the patient's abdominal wall abutting the gantry. There is moderate body wall edema which has slightly progressed. There is a small amount of ascites. Nodular contour to the liver consistent with cirrhosis. This remains unchanged. The spleen is stable in size. Prior cholecystectomy. Mild gastrohepatic/pericaval lymphadenopathy remains unchanged. The adrenal glands are unremarkable. No renal stones or hydronephrosis. An IVC filter appears in good position. No retroperitoneal lymphadenopathy. The bladder is decompressed by Martino catheter. The uterus and bilateral adnexa are unremarkable. Colonic diverticulosis. No evidence for acute diverticulitis. No bowel wall thickening. Mildly dilated gas and fluid-filled loops of large and small bowel are seen throughout the abdomen. No clear transition point to suggest obstruction. Therefore, this favors an ileus. IMPRESSION: 1. Mildly dilated gas and fluid-filled loops of large and small bowel are seen throughout the abdomen. No clear transition point to suggest obstruction. T herefore, this favors an ileus. 2. Cirrhotic liver with a small amount of ascites. 3. Moderate body wall edema. 4. A few prominent upper abdominal lymph nodes remain stable. This may related to the patient's underlying cirrhosis.. 5. Small right and trace left pleural effusions Lumbar and Thoracic Spine CT 08/16/22 08:[address], LUMBAR SPINE CT CT DOSE: 2748.41 mGy.cm HISTORY: Mid and lower back pain. bacteremia unknown source, lumbar hardware TECHNIQUE: Multiaxial CT images of the thoracic and lumbar spine were performed and reformatted in the sagittal and coronal plane without the use of contrast. A dose lowering technique was utilized adhering to the principles of ALARA. COMPARISON: Thoracic and lumbar spine CT 02/28/2022. FINDINGS: THORACIC SPINE CT: There is a small right and trace left pleural effusion. Bibasilar densities favor atelectasis. A pneumonia could also have a similar appearance. No significant central canal narrowing by CT technique. Moderate to severe degenerative disc disease seen throughout the thoracic spine which is similar to the prior study. This is most pronounced at the T8-T9 level which demonstrates mild endplate sclerosis/irregularity and mild paravertebral edema. However, this is similar to the prior study and therefore favors long-standing degenerative change. No erosive changes to suggest a discitis/osteomyelitis at this time. Mild dextroscoliosis of the thoracic spine again noted. Lumbar spine CT: Posterior decompression and fusion from L4 through S1 with pedicle screws and rods. The hardware appears intact. The metallic artifact results in suboptimal evaluation of the lower lumbar spine. However, no acute fractures identified within the lumbar spine. The sacrum appears intact. Mild disc space narrowing within the upper to mid lumbar spine. No endplate erosive changes to suggest a discitis/osteomyelitis. Mild levoscoliosis of the lumbar spine, unchanged. No significant central canal narrowing by CT technique. Paravertebral soft tissues are unremarkable. An IVC filter is noted. IMPRESSION: 1. No acute fractures identified within the thoracic or lumbar spine. 2. Posterior decompression and fusion from L4 through S1 with pedicle screws and rods. The hardware appears intact. 3. No destructive changes to suggest a discitis/osteomyelitis. 4. Degenerative changes as described above most pronounced at the T8-T9 level which demonstrates mild paravertebral edema. This is similar to the prior study and therefore favors long-standing degenerative change. Lumbar spine MRI 08/16/22 FINDINGS: Track Repairer Helper localizer images demonstrate no gross extraspinal abnormality. Mild lumbar levoscoliosis. The study is limited secondary to patient motion artifact and patient body habitus. Prior L4-L5 laminectomy with L4-S1 posterior interbody adrianna and screw fusion redemonstrated. Transitional lumbosacral anatomy with a small S1-S2 disc space. 3 mm anterolisthesis L4 on L5 with 5 mm anterolisthesis L4 on L5 is unchanged. The study is limited secondary to the right lateral aspect of the vertebral bodies only partially imaged on the sagittal series. Mild Modic type I and II endplate degeneration at L2-L3. No acute fracture, subluxation or endplate erosion. The conus medullaris terminates at L1. Signal within the thoracic spinal cord and cauda equina is unremarkable. T12-L1: No central canal or neural foraminal stenosis. L1-L2: Minimal spondylitic spurring with moderate facet arthrosis. No central canal or neural foraminal stenosis. L2-L3: Mild intervertebral disc space narrowing and spondylitic spurring with small posterior disc osteophyte complex. Ligamentum flavum thickening with moderate facet arthrosis. Mild central canal stenosis, AP dimension of the thecal sac measuring 9 mm. Moderate right with [id number] left neural foraminal narrowing. L3-L4: Mild intervertebral disc space narrowing and spondylitic spurring with small posterior disc osteophyte complex. Ligamentum flavum thickening with severe facet arthrosis. Mild central canal stenosis with AP dimension of the thecal sac measuring 9 mm. Severe right with moderate left neural foraminal narrowing. L4-L5: Mild spondylitic spurring. The central canal is patent. Mild stenosis of the neural foramina, right greater than left. L5-S1: Mild spondylitic spurring with posterior annular disc bulge/disc space uncovering.. The central canal and left neural foramen are patent. Mild right foraminal narrowing. No abnormal enhancement. IMPRESSION: 1. Limited exam as above. 2. Prior L4-L5 laminectomy with L4-S1 posterior interbody adrianna and screw fusion. Unchanged chronic grade 1 anterolisthesis L4 on L5 and L5 on S1. 3. Spondylitic spurring with discogenic degeneration and facet arthrosis as detailed above. 4. No acute fracture or abnormal enhancement. Medications Administered Home Medications Medication Instructions Recorded Confirmed Last Taken cholecalciferol (vitamin D3) 50 2,000 unit PO QAM 07/01/18 08/13/22 10/02/21 mcg (2,000 unit) capsule (Vitamin D3) docusate sodium 100 mg capsule 100 mg PO BID PRN Constipation 07/01/18 08/13/22 Unknown multivitamin 1 tab PO QAM 10/14/19 08/13/22 10/02/21 vitamin E 268 mg (400 unit) capsule 400 unit PO QAM 08/14/20 08/13/22 10/02/21 atorvastatin 10 mg tablet 10 mg PO HS #90 tabs 08/12/21 08/13/22 10/02/21 glimepiride 1 mg tablet 1 mg PO BID #180 tabs 08/12/21 08/13/22 10/02/21 coenzyme Q10 200 mg capsule 200 mg PO DAILY 11/01/21 08/13/22 Unknown acetaminophen 325 mg tablet 650 mg PO Q4H PRN fever or pain 03/23/22 08/13/22 Unknown #30 tabs famotidine 20 mg tablet 20 mg PO BID PRN Heartburn 04/05/22 08/13/22 Unknown polyethylene glycol 3350 17 gram 17 g PO DAILY PRN Constipation 04/05/22 08/13/22 Unknown oral powder packet (Miralax) levothyroxine 50 mcg tablet 50 mcg PO DAILY #90 tabs 04/12/22 08/13/22 Unknown lisinopril 10 mg tablet 10 mg PO DAILY 04/25/22 08/13/22 Unknown metformin 500 mg tablet 500 mg PO DAILY 04/25/22 08/13/22 Unknown sodium chloride 1 gram tablet 1,000 mg PO DAILY #90 tabs 07/11/22 08/13/22 Unknown nystatin 100,000 unit/gram topical 1 applic topical TID PRN rash #60 07/20/22 08/13/22 Unknown powder grams spironolactone 25 mg tablet 25 mg PO DAILY #30 tabs 07/20/22 08/13/22 Unknown magnesium chloride 64 mg 128 mg PO TID #540 tabs 07/27/22 08/13/22 Unknown (magnesium chloride) tablet,delayed release ondansetron 4 mg disintegrating 4 mg PO Q6H PRN nausea and 08/01/22 08/13/22 Unknown tablet vomiting #14 tabs furosemide 40 mg tablet (Lasix) 40 mg PO DAILY #30 tabs 08/09/22 08/13/22 Unknown lactulose 20 gram/30 mL oral 30 g (45 mL) PO BID 30 days #2,700 08/09/22 08/13/22 Unknown solution mL Active Medications Generic Name Dose Route Start Last Admin Trade Name Freq PRN Reason Stop Dose Admin Acetaminophen 650 mg 08/15/22 19:00 08/16/22 11:41 Acetaminophen 325 Mg Tab PO 09/14/22 18:59 Not Given Q8 ARMANDO Atorvastatin Calcium 10 mg 08/13/22 21:00 08/15/22 21:35 Atorvastatin 10 Mg Tab PO 09/12/22 20:59 10 mg HS ARMANDO Administration Dextrose 25 - 50 ml 08/13/22 05:12 08/16/22 13:01 Dextrose 50% 50 Ml Syringe IV 09/12/22 05:11 25 ml UD PRN Administration Hypoglycemia Protocol Protocol Furosemide 40 mg 08/15/22 21:00 08/16/22 10:25 Furosemide 40 Mg/4 Ml Vial IV 09/14/22 20:59 40 mg BID ARMANDO Administration Hydromorphone HCl 0.25 mg 08/15/22 18:24 08/16/22 13:39 Hydromorphone Inj 0.5 Mg/0.5 Ml Syr IV 08/29/22 18:23 0.25 mg Q6H PRN Administration Pain Pantoprazole Sodium 40 mg/ 10 mls @ 5 mls/min 08/13/22 21:00 08/16/22 10:07 Syringe IV 09/12/22 20:59 5 mls/min BID ARMANDO Administration Prochlorperazine 5 mg/ Syringe 5 mls @ 5 mls/min 08/13/22 17:53 08/16/22 05:00 IV 09/12/22 17:52 5 mls/min Q6H PRN Administration Nausea And Vomiting Acetaminophen 1,000 mg in 100 mls @ 400 mls/hr 08/14/22 00:41 08/15/22 09:18 Ofirmev IV 08/17/22 00:40 Infused Q8H PRN Infusion Pain or Fever Ceftriaxone Sodium 2,000 mg/ 70 mls @ 140 mls/hr 08/15/22 09:45 08/16/22 10:52 Dextrose IV 08/29/22 09:44 Infused DAILY@0900 ARMANDO Infusion Famotidine 10 mg/ Syringe 5 mls @ 2.5 mls/min 08/16/22 09:00 08/16/22 10:16 IV 09/15/22 08:59 2.5 mls/min QAM ARMANDO Administration Lactulose 30 gm 08/13/22 09:00 08/16/22 10:05 Lactulose Syrup 30 Gm/45 Ml Udp PO 09/12/22 08:59 Not Given BID ARMANDO Levothyroxine Sodium 50 mcg 08/13/22 06:30 08/16/22 05:43 Levothyroxine Sodium 50 Mcg Tablet PO 09/12/22 06:29 Not Given DAILYBB ARMANDO Lidocaine 1 patch 08/15/22 18:30 08/15/22 20:17 Lidocaine 5% 1 Patch TD 09/14/22 18:29 1 patch HS ARMANDO Administration Magnesium Chloride 128 mg 08/13/22 09:00 08/16/22 11:42 Magnesium Chloride W/Calcium 64mg Delayed Rel Tab PO 09/12/22 08:59 Not Given TID ARMANDO Miscellaneous 15 - 30 gm 08/13/22 05:12 08/15/22 11:51 Carbohydrates For Hypoglycemia PO 09/12/22 05:11 30 gm UD PRN Administration Hypoglycemia Protocol Miscellaneous 1 each 08/16/22 08:00 08/16/22 10:04 Remove Lidoderm Patch N/A 09/15/22 07:59 1 each DAILY@0800 ARMANDO Administration Ondansetron HCl 4 mg 08/13/22 18:00 08/16/22 11:41 Ondansetron Inj 2 Mg/Ml 2 Ml Vial IV 09/12/22 17:59 Not Given Q6H ARMANDO Tramadol HCl 50 mg 08/14/22 00:44 08/15/22 05:24 Tramadol Hcl 50 Mg Tablet PO 09/13/22 00:43 50 mg Q4H PRN Administration Moderate Pain
[2022-08-16] MEDS ORDERED: FUROSEMIDE 40 MG/4 ML VIAL IV SCH (21:00)
[2022-08-16] MEDS: ATORVASTATIN 10 MG TAB PO SCH (21:48)
[2022-08-16] MEDS: LIDOCAINE 5% 1 PATCH TD SCH (21:49)
[2022-08-16] MEDS: ACETAMINOPHEN 1,000 MG/100 ML VIAL IV PRN (22:09)
[2022-08-17] MEDS: ONDANSETRON INJ 2 MG/ML 2 ML VIAL IV SCH ×4 (00:07→17:28)
[2022-08-17] MEDS: D5W AND LACTATED RINGERS 1,000 ML IV SCH ×2 (00:40→12:56)
[2022-08-17] MEDS: LEVOTHYROXINE SODIUM 50 MCG TABLET PO SCH (06:24)
[2022-08-17] MEDS: ACETAMINOPHEN 325 MG TAB PO SCH ×3 (06:24→21:55)
[2022-08-17 06:41] LABS: Albumin Globulin Ratio 0.5 (0.9-2); BUN Creatinine Ratio 22.5 (10-20); Bilirubin,Total 0.4 mg/dl (0.2-1.0); Calcium 8.2 mg/dl (8.5-10.1); Creatinine Clr Calc Pharmacy 14.5 ml/min; Est GFR (African American) 12.7 ml/min; Est GFR (Non-African American) 10.9 ml/min; Globulin 3.8 gm/dl (2.5-4.0); Phosphorus 5.2 mg/dl (2.5-4.9); Potassium 4.3 mmol/L (3.5-5.1); Total Protein 5.8 gm/dl (6.0-8.3)
[2022-08-17 06:55] LABS: Hematocrit (blood only) 28.2 % (34.1-44.9); Hemoglobin 9.2 g/dl (12.0-16.0); Mean Corpuscular Hemoglobin 26.9 pg (25.0-34.0); Mean Corpuscular Hgb Conc 32.6 g/dL (32.0-36.0); Mean Corpuscular Volume 82.5 fL (80.0-100.0); Nucleated RBC # (auto) 0.02 K/uL (0-0); Nucleated RBC % (auto) 0.3 %; Platelet Count 59 K/uL (130-400); RDW Coefficient of Variation 16.4 % (11.5-14.5); RDW Standard Deviation 49.5 fL (36.4-46.3); Red Blood Count 3.42 M/uL (3.93-5.22); White Blood Count 6.14 K/ul (4.8-10.8)
--- NOTE | 2022-08-17 07:50 | Hospitalist Progress Note ---
Date of Service August 17, 2022 Assessment & Plan (1) Sepsis: (2) Chest pain: Plan: 76 yo F with PMH HTN, chronic DVT with IVC filter, aortic stenosis, HFpEF, MGUS, cirrhosis, DM2, HLD, ROSALES on CPAP, chronic back pain w/ history of lumbar stenosis s/p surgery with multiple recent hospitalizations. 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 and antibiotic narrowing - TTE without vegetations; would consider getting a DELFIN pending ID recommendations - Will consult ID for help with duration of treatment - Follow cultures - XR b/l knees unremarkable --- Lethargy improved today, responsive to questions --- No leukocytosis, Hgb 9.2, Cr 3.74 (rising) --- Blood cultures: No growth at 24 hours --- MRI spine performed today, awaiting results --- Unable to obtain DELFIN, patient unable to consent, discussed with family who wishes to hold off Back pain - Pt does have chronic back pain, suspect current pain largely due to such history and morbid obesity - She states that this pain is different from her normal back pain, with bacteremia and hardware from spinal fusion, concern for osteomyelitis vs hardware seeding --- MRI obtained today, awaiting results --- CT showing no acute fractures and degenerative changes w/o clear evidence of discitis or osteomyelitis, evidence of paravertebral edema at T8-T9 (longstanding) --- Tylenol scheduled w/ Dilaudid 0.25 PRN for pain management Acute kidney injury in setting of CKD3 -Cr 2 on admission, baseline around 1 -Suspect secondary to hypovolemia - Creatine up to 2.72 yesterday evening, down to 2.58 this morning with 1L of fluid over the past 24 hours --- Cr 3.74 on 08/17, suspect possible component of fluid overload in association w/ known HFpEF --- Nephrology recommending Lasix 120 mg BID, renal medication dosing, and 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, appreciate recommendations HFpEF - CXR with significant vascular congestion and pulmonary edema - Echocardiogram 07/2022- EF 55-60% --- Continue to diurese as above --- Closely follow I&O, continue Lynn Nausea/Abdominal Pain - KUB with Mild gaseous distention of the large and small bowel which may represent ileus, less likely partial obstruction - Is passing gas, no BM today - Tylenol prn for pain - Compezine, Famotidine, Zofran, Pantoprazole - Both pain and nausea improved - 08/16 Increasing abdominal firmness and tenderness, CTAP obtained suggestive of ileus, no obstruction of infection --- Will change to NPO for bowel rest and discontinue insulin --- Continue D5LR at 80ml/hr, advance diet to clear liquids Elevated troponin and chest pain - Initial Troponin 74 repeat 73 - EKG without acute ST change - Chest pain has resolved Cirrhosis - Continue lactulose - Holding spironolactone given low BP, will resume as BP tolerates - No concern for hepatic encephalopathy or liver failure at present - Trend CMP --- Elevated BUN, no hyperammonemia, mild ascites, resolved abdominal discomfort/firmness Thrombocytopenia -Plts 98 on admission -Does appear chronic and at baseline, likely due to liver cirrhosis -Trend CBC --- Plts 59 downtrending, no active bleeding DM2 -Holding home glimepiride, metformin -Hold Lantus 5u BID until she is tolerating better PO intake, SSI ordered --- Hypoglycemic, received Dextrose w/ improvement HTN -Holding home lisinopril for EMY ROSALES -CPAP nightly HLD -Continue atorvastatin 10 mg Hypothyroidism -Continue levothyroxine Code status: DNR DVT ppx: SCDs, deferring chemical prophylaxis given thrombocytopenia Isolation: None Dispo: PT/OT ordered, anticipate need for rehab CM: Discussed palliative care consultation w/ family, declined at this time, will continue to discuss (3) CKD (chronic kidney disease): (4) Back pain: (5) Diabetes mellitus with peripheral vascular disease: (6) Streptococcal bacteremia: (7) Pneumonia: Admission and Anticipated Discharge Date Admission Date: August 13, 2022 Supervising Physician Co-Signing Physician Notes I personally examined the patient and verified all almanzar points of history and exam, discussed case, and agree with decision making with Dr Guardado. Subjective 08/17: Patient was more conversive today and denied pain this morning. She denies chest discomfort, dyspnea, or abdominal pain. Patient complained of Lynn discomfort today and had multiple large bowel movements. Family was agreeable to proceed with spinal MRI today, test was completed without incident. Review of Systems Review of Systems: As per above Physical Exam Physical Exam: General: lethargic, obese HEENT: No overt JVD, dry mucous membranes CV: RRR, +systolic murmur over LUSB, normal S1 and S2 Resp: bibasilar crackles, no increased work of breathing Abd: firm, mildly distended, no tenderness to palpation Ext: +1 pitting edema up to knees b/l, bilateral UE edema (symmetric, worsening) Neuro: AOx? (responds to name), no gross focal motor deficits Results & Data Results & Data ([facility]) Vital Signs (Past 12 Hours) Vital Signs Temp Pulse Pulse Resp BP BP Pulse Ox 08/17/22 07:48 36.7 C 74 18 125/69 93 08/17/22 03:15 36.7 C 73 16 114/68 97 08/17/22 02:20 76 23 93 08/16/22 22:05 84 08/16/22 23:55 36.9 C 75 22 104/62 95 08/16/22 22:40 79 17 95 08/16/22 21:30 O2 Del Method FiO2 08/17/22 07:48 Room Air 08/17/22 03:15 Room Air 08/17/22 02:20 21 08/16/22 22:05 08/16/22 23:55 BiPAP 08/16/22 22:40 21 08/16/22 21:30 Room Air Resident Activity Tracking Resident Involvement: Resident Care Provided Care Provided: Adult Hospital Medicine
[2022-08-17] MEDS: PANTOprazole 40 MG in SYRINGE 0 ML IV SCH ×2 (11:10→20:07)
[2022-08-17] MEDS: cefTRIAXone SODIUM 2,000 MG in DEXTROSE 5% 50 ML IV SCH (11:10)
[2022-08-17] MEDS: FAMOTIDINE 10 MG in SYRINGE 1.5 ML IV SCH (11:10)
[2022-08-17] MEDS: ATORVASTATIN 10 MG TAB PO SCH (11:10)
[2022-08-17] MEDS: MAGNESIUM CHLORIDE W/CALCIUM 64MG DELAYED REL TAB PO SCH ×3 (11:10→20:07)
[2022-08-17] MEDS: FUROSEMIDE 40 MG/4 ML VIAL IV SCH ×2 (11:11→20:05)
[2022-08-17] MEDS: LACTULOSE SYRUP 30 GM/45 ML UDP PO SCH ×2 (11:11→20:01)
[2022-08-17] MEDS: HYDROmorphone INJ 0.5 MG/0.5 ML SYR IV PRN (11:31)
--- NOTE | 2022-08-17 12:40 | Nephrology Progress Note ---
Date of Service August 17, 2022 Assessment & Plan (1) EMY (acute kidney injury): (2) Volume overload: (3) Lower leg edema: (4) Streptococcal bacteremia: (5) Anemia: Plan 76-year-old female with multiple comorbidities including morbid obesity, recent GI bleeding, repeated episodes of EMY ( b/l cr 1.2) with volume depletion, admitted to hospital with EMY, generalized weakness, bacteremia and volume overload. Renal function has been rapidly worsening over last few days, on admi ssion it is 2.5 which has been worsening. Has moderate degree proteinuria with history of hypertension, diabetes, MGUS. Rapid worsening of renal function with volume overload and decreased urine out put could be secondary to combinations of intravascular volume depletion with hypoalbuminemia as well as renovascular congestion. mostly edema with hypoalbuminemia but most likely intravascularly volume depleted -- encouraged to increase po intake, would continue Lasix IV today, accurate intake and output, monitor renal function, electrolyte closely while on diuretic. 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 Will continue to monitor closely. Admission and Anticipated Discharge Date Admission Date: August 13, 2022 Alfredito Boyer was seen and evaluated this am. She was in severe discomfort with back pain. Po intake has been poor. Decent response to IV lasix , around 1 L UO and mostly negative with low po intake. Cr continues to rise but electrolyte acceptable. BP fair. No SOB. Review of Systems Review of Systems: Detailed review of system was otherwise unremarkable. Physical Exam Constitutional: WD/WN, vitals as above + ill appearing and + morbidly obese Eyes: + anicteric sclerae ENMT: Nose: + dry nasal mucous membranes dry oral mucosa Neck: normal visual inspection Respiratory: no respiratory distress Auscultation: + diminished lung sounds Cardiovascular: Rate/Rhythm: regular rate and regular rhythm Heart Sounds: normal S1 and normal S2 Extremities: + edema (hands edematous, trace b/l LE edema) Skin: no rashes Neurologic: no focal motor deficits Psychiatric: Orientation: alert and oriented x 3 Affect: euthymic affect Results & Data ([facility]) Vital Signs (Past 12 Hours) Vital Signs Temp Pulse Pulse Resp BP BP Pulse Ox 08/17/22 07:48 36.7 C 74 18 125/69 93 08/17/22 03:15 36.7 C 73 16 114/68 97 08/17/22 02:20 76 23 93 08/16/22 23:55 36.9 C 75 22 104/62 95 O2 Del Method FiO2 08/17/22 07:48 Room Air 08/17/22 03:15 Room Air 08/17/22 02:20 21 08/16/22 23:55 BiPAP PG Care Time/CCT Total # of Minutes Spent Total Time Spent with Patient: Total time spent is greater than 50% in coordination of care (as documented) at patient's floor/unit and/or counseling patient: Coding Level of Care Code 61343 SUB INP/OBS CARE 3/50MIN Diagnoses EMY (acute kidney injury) N17.9 Volume overload E87.70 Lower leg edema R60.0 Streptococcal bacteremia R78.81; B95.5 Anemia D64.9
[2022-08-17] MEDS ORDERED: HYDROmorphone INJ 0.5 MG/0.5 ML SYR IV PRN (14:37)
--- NOTE | 2022-08-17 16:07 | Infectious Disease Progress Nt ---
Date of Service August 17, 2022 Assessment & Plan (1) Streptococcal bacteremia: (2) Leukocytosis: (3) Sepsis: (4) EMY (acute kidney injury): (5) Chronic back pain: Plan This is a 76-year-old female with past medical history of hypertension, chronic deep vein thrombosis of RLE sp IVC filter, chronic back pain sp spinal fusion, mod-severe aortic stenosis, monoclonal gammopathy of unknown significance, nonalcoholic fatty liver with cirrhosis, diabetes, ROSALES who was recently admitted 08/04/22-08/09/22 for hepatic encephalopathy and EMY. Prior to this, she was admitted 07/28/21-08/01/21 for diverticular bleed. She presents a few days after last discharge on 08/13 with increased fatigue and marked increase in back pain. She denies any steroid injections of spine or recent back trauma or falls. In the Ed she is afebrile and hemodynamically stable. Admission labs noted for WBC 18.50 , creatinine 2.039, platelets 98, crp 18.21, procalcitonin 28.12, lactate 4.9, troponin 74, urine cx + gamma strep and lactobacillus and BC + for 3/4 bottles for Group g beta streptococcus. Cxr shows cardiomegaly and mild pulmonary edema. An abdominal xray shows An IVC filter ,posterior fixation hardware and gaseous distention of the large bowel and small intestine. She was started on Zosyn and is now on Ceftriaxone. A TTE shows evidence of moderate Aortic stenosis. There is no valve vegetation noted. She is pending MRI spine. On my interview , she is awake and alert and complains of severe back pain ( more than her baseline) and right knee pain and swelling. She denies fever, chills, sweats, skin rash, change in urine or bowel habits, ab pain, n/v, sob, chest pain. Id consulted for evaluation of Group G streptococcus bacteremia. Micro: Bc 08/13 ( 1:22) 3/4 bottles group G strep Bc 08/13 1751) NGTD UC 08/13 Gamma strep not enterococcus, Lactobacillus species Blood Culture Aerobic Final 08/15/22-1017 Organism 1 Group G Beta Strep Sens Sensitivities to Follow Phoned positive Blood Culture Gram Stain report to Jessica Sims on 08/13/22 at 1328 [place] [id number]. [place] [id number]. Grp.G Strp RX M.I.C. --- --------- Ampicillin S <=0.06 Azithromycin S <=0.25 Cefepime S <=0.25 Cefotaxime S <=0.25 Ceftriaxone S <=0.25 Chloramphenicol S 2 Clindamycin S <=0.06 Erythromycin S <=0.06 Penicillin S <=0.03 Vancomycin S 0.5 Abx: zosyn 08/13-08/15 ceftriaxone 08/15- ongoin. Group G Beta hemolytic streptococcus bacteremia of unknown origin ( ? gi, endovascular, spine) 2. Acute on chronic back pain 3. Spinal fusion with hardware in place 4. Moderate Aortic stenosis 5. History of B/L TKA 6. R> L LE edema 7. Right above AC fossa edema and ttp 8. EMY 9. Chronic thrombocytopenia 10.Ileus on imaging Discussion. She presents with acute on chronic back in setting of Group G streptococcus bacteremia. She is also noted to have BL knee edema/pain, has a history of BL TKA and moderate Aortic stenosis on TTE with corresponding murmur on exam without evidence of valve vegetation ( but limited echo study). Possible sources of her bacteremia include: Spinal infection, endocarditis or prosthetic joint infection/septic arthritis given initial exam findings, presence of hardware and valve abnormalities. It is noted that she had a diverticular bleed earlier in the month, but none currently. She has no evidence of GI infection based on symptoms and physical exam. However, a CT abdomen done on 08/16 shows findings suggestive of ileus, making a GI source of bacteremia possible. She has a mild ttp and swelling and firmness above the AC fossa which could represent soft tissue infection vs superficial phlebitis vs DVt at site of ? prior IV site.She is noted to have gamma streptococcus on urine culture but no urinary symptoms. To date Ct thoracic and lumbar spine w.o contrast shows no findings suggestive of osteo or discitis, intact l4- s1 hardware, long standing degenerative changes at thoracic spine. A limited MRI was done as she was unable to tolerate that showed no acute fractures or enhancements. BL knee xrays shows unremarkable appearing bilateral knee total joint arthroplasties. DELFIN pending . ESR elevated at 89 Her WBc has normalized . Procal has improved to 7.04. Cr up. On 08/17/ increased diarrhea but on lctulose. Complains of incr nausea without vomiting. Recommendations: Continue ceftriaxone 2 g iv q 24hours for now Can likely deescalate if only Group Strep identified in BC finalization ( will continue for now for broader GI coverage) AND finalization of Bc from 08/16 Would add flagyl 500 mg iv q8 for anaerobic GI coverage Follow up Repeat BC from 08/16 to ensure blood culture clearance Check DELFIN, if clinically stable Remove martino if not needed. Check R UE US management of ileus per primary team Final duration of antibiotic therapy will depend on etiology and persistence of bacteremia. Discussed recs with team. ID will continue to follow. Corwin Gupta MD, MPH [facility], [facility] Call [phone] with questions Admission and Anticipated Discharge Date Admission Date: August 13, 2022 Subjective Subsequent visit was provided via telemedicine using two-way real-time interactive telecommunication between the patient and the telemedicine provider. For the duration of the visit, the provider was performing the assessment from a different facility than the patient. This includesuse of bluetooth stethoscope forauscultationperformed by the telepresenter that the telemedicine provider can hear if described in the physical exam. Nuclear Medicine Chief Technologist contact information: Please call [facility] Center [phone]. (Phone Number For Physician Use Only) After establishing a telemedicine visit, patient was: Patient/authorized rep acknowledged consent and understanding and Gave permission to continue telehealth session Time Spent with Patient: Subsequent => 25 min less lethargic, complains of nausea . + diarrhea during exam. Less back pain Physical Exam Constitutional: Awake, chronically ill appearing, obese Eyes: EOMI Neck: supple Respiratory: No inc WOB Cardiovascular: RRR, 3/6 SHAWN Gastrointestinal (Abdomen): obese,soft , mildly distended , Not tender Musculoskeletal: LEss TTP spinal and paraspinal tenderness to palpation Right LE edema >>Left LE Neurologic: AAO times 3 Results & Data ([facility]) Vital Signs (Past 12 Hours) Vital Signs Temp Pulse Pulse Resp BP Pulse Ox O2 Del Method 08/17/22 15:43 36.9 C 89 18 159/82 H 95 Room Air 08/17/22 08:00 Room Air 08/17/22 08:00 76 08/17/22 11:59 36.8 C 81 17 161/83 H 97 Room Air 08/17/22 07:48 36.7 C 74 18 125/69 93 Room Air Laboratory Results Laboratory Results - last 48 hr 08/15/22 08/15/22 08/15/22 16:24 16:39 20:40 WBC RBC Hgb Hct MCV MCH MCHC RDW Std Deviation RDW Coeff of Leah Plt Count MPV Absolute Nucleated RBC Nucleated RBC % (auto) ESR Sodium 134 L Potassium 4.5 Chloride 103 Carbon Dioxide 25 Anion Gap 6 BUN 74 H Creatinine 3.29 H Est Cr Clr Drug Dosing 16.1 Est GFR ( Amer) 14.8 Est GFR (Non-Af Amer) 12.8 BUN/Creatinine Ratio 22.5 H Glucose 103 H POC Glucose 105 H 110 H Calcium 8.4 L Phosphorus Total Bilirubin AST ALT Alkaline Phosphatase Ammonia C-Reactive Protein Total Protein Albumin Globulin Albumin/Globulin Ratio Procalcitonin 08/16/22 08/16/22 08/16/22 00:01 00:34 03:55 WBC RBC Hgb Hct MCV MCH MCHC RDW Std Deviation RDW Coeff of Leah Plt Count MPV Absolute Nucleated RBC Nucleated RBC % (auto) ESR Sodium Potassium Chloride Carbon Dioxide Anion Gap BUN Creatinine Est Cr Clr Drug Dosing Est GFR ( Amer) Est GFR (Non-Af Amer) BUN/Creatinine Ratio Glucose POC Glucose 121 H 99 106 H Calcium Phosphorus Total Bilirubin AST ALT Alkaline Phosphatase Ammonia C-Reactive Protein Total Protein Albumin Globulin Albumin/Globulin Ratio Procalcitonin 08/16/22 08/16/22 08/16/22 06:52 06:52 07:48 WBC 8.46 RBC 3.41 L Hgb 9.3 L Hct 29.0 L MCV 85.0 MCH 27.3 MCHC 32.1 RDW Std Deviation 51.9 H RDW Coeff of Leah 16.7 H Plt Count 59 L MPV 11.3 Absolute Nucleated RBC Nucleated RBC % (auto) ESR Sodium 135 L Potassium 4.5 Chloride 103 Carbon Dioxide 25 Anion Gap 7 BUN 78 H Creatinine 3.57 H Est Cr Clr Drug Dosing 15.1 Est GFR ( Amer) 13.4 Est GFR (Non-Af Amer) 11.6 BUN/Creatinine Ratio 21.8 H Glucose 77 POC Glucose 73 Calcium 8.4 L Phosphorus 5.3 H Total Bilirubin 0.5 AST 24 ALT 15 Alkaline Phosphatase 80 Ammonia C-Reactive Protein 15.76 H Total Protein 6.1 Albumin 2.1 L Globulin 4.0 Albumin/Globulin Ratio 0.5 L Procalcitonin 08/16/22 08/16/22 08/16/22 07:59 08:58 08:58 WBC RBC Hgb Hct MCV MCH MCHC RDW Std Deviation RDW Coeff of Leah Plt Count MPV Absolute Nucleated RBC Nucleated RBC % (auto) ESR 89 H Sodium Potassium Chloride Carbon Dioxide Anion Gap BUN Creatinine Est Cr Clr Drug Dosing Est GFR ( Amer) Est GFR (Non-Af Amer) BUN/Creatinine Ratio Glucose POC Glucose Calcium Phosphorus Total Bilirubin AST ALT Alkaline Phosphatase Ammonia Cancelled C-Reactive Protein Total Protein Albumin Globulin Albumin/Globulin Ratio Procalcitonin 7.09 H 08/16/22 08/16/22 08/16/22 10:13 12:19 12:25 WBC RBC Hgb Hct MCV MCH MCHC RDW Std Deviation RDW Coeff of Leah Plt Count MPV Absolute Nucleated RBC Nucleated RBC % (auto) ESR Sodium Potassium Chloride Carbon Dioxide Anion Gap BUN Creatinine Est Cr Clr Drug Dosing Est GFR ( Amer) Est GFR (Non-Af Amer) BUN/Creatinine Ratio Glucose POC Glucose 54 L* 67 L* Calcium Phosphorus Total Bilirubin AST ALT Alkaline Phosphatase Ammonia 61.0 C-Reactive Protein Total Protein Albumin Globulin Albumin/Globulin Ratio Procalcitonin 08/16/22 08/16/22 08/16/22 12:49 13:16 18:09 WBC RBC Hgb Hct MCV MCH MCHC RDW Std Deviation RDW Coeff of Leah Plt Count MPV Absolute Nucleated RBC Nucleated RBC % (auto) ESR Sodium Potassium Chloride Carbon Dioxide Anion Gap BUN Creatinine Est Cr Clr Drug Dosing Est GFR ( Amer) Est GFR (Non-Af Amer) BUN/Creatinine Ratio Glucose POC Glucose 58 L* 108 H 81 Calcium Phosphorus Total Bilirubin AST ALT Alkaline Phosphatase Ammonia C-Reactive Protein Total Protein Albumin Globulin Albumin/Globulin Ratio Procalcitonin 08/16/22 08/17/22 08/17/22 23:44 00:13 05:56 WBC RBC Hgb Hct MCV MCH MCHC RDW Std Deviation RDW Coeff of Leah Plt Count MPV Absolute Nucleated RBC Nucleated RBC % (auto) ESR Sodium 136 Potassium 4.3 Chloride 105 Carbon Dioxide 24 Anion Gap 7 BUN 84 H Creatinine 3.74 H Est Cr Clr Drug Dosing 14.5 Est GFR ( Amer) 12.7 Est GFR (Non-Af Amer) 10.9 BUN/Creatinine Ratio 22.5 H Glucose 93 POC Glucose 65 L* 80 Calcium 8.2 L Phosphorus 5.2 H Total Bilirubin 0.4 AST 23 ALT 12 Alkaline Phosphatase 83 Ammonia C-Reactive Protein Total Protein 5.8 L Albumin 2.0 L Globulin 3.8 Albumin/Globulin Ratio 0.5 L Procalcitonin 08/17/22 08/17/22 08/17/22 05:56 06:28 11:57 WBC 6.14 RBC 3.42 L Hgb 9.2 L Hct 28.2 L MCV 82.5 MCH 26.9 MCHC 32.6 RDW Std Deviation 49.5 H RDW Coeff of Leah 16.4 H Plt Count 59 L MPV 12.0 Absolute Nucleated RBC 0.02 H Nucleated RBC % (auto) 0.3 ESR Sodium Potassium Chloride Carbon Dioxide Anion Gap BUN Creatinine Est Cr Clr Drug Dosing Est GFR ( Amer) Est GFR (Non-Af Amer) BUN/Creatinine Ratio Glucose POC Glucose 86 102 H Calcium Phosphorus Total Bilirubin AST ALT Alkaline Phosphatase Ammonia C-Reactive Protein Total Protein Albumin Globulin Albumin/Globulin Ratio Procalcitonin Diagnostic Findings Microbiology 08/16/22 08:06 Blood Aerobic Blood Culture - Preliminary No growth in Aerobic bottle after 24 hours. 08/16/22 08:06 Blood Anaerobic Blood Culture - Final 08/16/22 07:59 Blood Aerobic Blood Culture - Preliminary No growth in Aerobic bottle after 24 hours. 08/16/22 07:59 Blood Anaerobic Blood Culture - Preliminary No growth in Anaerobic bottle after 24 hours. 08/13/22 17:51 Blood Aerobic Blood Culture - Preliminary No growth in Aerobic bottle after 48 hours. 08/13/22 17:51 Blood Anaerobic Blood Culture - Preliminary No growth in Anaerobic bottle after 48 hours. 08/13/22 17:51 Blood Aerobic Blood Culture - Preliminary No growth in Aerobic bottle after 48 hours. 08/13/22 17:51 Blood Anaerobic Blood Culture - Preliminary No growth in Anaerobic bottle after 48 hours. 08/13/22 05:10 Urine,Indwelling Cath Urine Culture - Final Gamma strep not enterococcus Lactobacillus species 08/13/22 01:22 Blood Aerobic Blood Culture - Final Group G Beta Strep 08/13/22 01:22 Blood Anaerobic Blood Culture - Final 08/13/22 01:22 Blood Aerobic Blood Culture - Final Group G Beta Strep 08/13/22 01:22 Blood Anaerobic Blood Culture - Final Group G Beta Strep Knee X-Ray 08/16/22 06:58 XR knee RT 1 or 2V routine, XR knee LT 1 or 2V routine HISTORY: 76 years-old Female h/o TKA; bacteremia unknown source chronic bilateral knee pain COMPARISON: ] Radiographs 10/03/2021 TECHNIQUE: 2 views of the bilateral knees FINDINGS: RIGHT: Cortical thickening of the mid femoral diaphysis redemonstrated suggestive of a healed chronic fracture. Total joint arthroplasty with patellar resurfacing. No acute fracture, dislocation or evidence of hardware complication. Arterial calcifications. LEFT: Limited exam secondary to positioning. Unremarkable appearance of the total joint arthroplasty. No acute fracture, dislocation or large joint effusion. IMPRESSION: 1. No acute fracture or dislocation. 2. Unremarkable appearance of the bilateral knee total joint arthroplasties. Knee X-Ray 08/16/22 07:00 XR knee RT 1 or 2V routine, XR knee LT 1 or 2V routine HISTORY: 76 years-old Female h/o TKA; bacteremia unknown source chronic bilateral knee pain COMPARISON: ] Radiographs 10/03/2021 TECHNIQUE: 2 views of the bilateral knees FINDINGS: RIGHT: Cortical thickening of the mid femoral diaphysis redemonstrated suggestive of a healed chronic fracture. Total joint arthroplasty with patellar resurfacing. No acute fracture, dislocation or evidence of hardware complication. Arterial calcifications. LEFT: Limited exam secondary to positioning. Unremarkable appearance of the total joint arthroplasty. No acute fracture, dislocation or large joint effusion. IMPRESSION: 1. No acute fracture or dislocation. 2. Unremarkable appearance of the bilateral knee total joint arthroplasties. Abdomen/Pelvis CT 08/16/22 08:[address] WITHOUT CONTRAST CT DOSE: HISTORY: worsening abd distention, altered mental status, bacteremia, cirrhosis TECHNIQUE: Multiaxial CT images of the abdomen and pelvis were performed without contrast. A dose lowering technique was utilized adhering to the principles of ALARA. COMPARISON STUDY: Abdomen and pelvis CT 08/04/2022. FINDINGS: Small right and trace left pleural effusions with bibasilar densities favoring subsegmental atelectasis. The heart remains mildly enlarged. There is a trace pericardial effusion. Prominent anterior pericardial lymph node remains stable measuring up to 11 mm. No pneumoperitoneum. No pneumatosis. Posterior decompression and fusion from L4 through S1 with pedicle screws and rods. No acute fractures identified. Artifact along the right side the abdomen due to the patient's abdominal wall abutting the gantry. There is moderate body wall edema which has slightly progressed. There is a small amount of ascites. Nodular contour to the liver consistent with cirrhosis. This remains unchanged. The spleen is stable in size. Prior cholecystectomy. Mild gastrohepatic/pericaval lymphadenopathy remains unchanged. The adrenal glands are unremarkable. No renal stones or hydronephrosis. An IVC filter appears in good position. No retroperitoneal lymphadenopathy. The bladder is decompressed by Martino catheter. The uterus and bilateral adnexa are unremarkable. Colonic diverticulosis. No evidence for acute diverticulitis. No bowel wall thickening. Mildly dilated gas and fluid-filled loops of large and small bowel are seen throughout the abdomen. No clear transition point to suggest obstruction. Therefore, this favors an ileus. IMPRESSION: 1. Mildly dilated gas and fluid-filled loops of large and small bowel are seen throughout the abdomen. No clear transition point to suggest obstruction. Therefore, this favors an ileus. 2. Cirrhotic liver with a small amount of ascites. 3. Moderate body wall edema. 4. A few prominent upper abdominal lymph nodes remain stable. This may related to the patient's underlying cirrhosis.. 5. Small right and trace left pleural effusions Lumbar Spine CT 08/16/22 08:[address], LUMBAR SPINE CT CT DOSE: 2748.41 mGy.cm HISTORY: Mid and lower back pain. bacteremia unknown source, lumbar hardware TECHNIQUE: Multiaxial CT images of the thoracic and lumbar spine were performed and reformatted in the sagittal and coronal plane without the use of contrast. A dose lowering technique was utilized adhering to the principles of ALARA. COMPARISON: Thoracic and lumbar spine CT 02/28/2022. FINDINGS: THORACIC SPINE CT: There is a small right and trace left pleural effusion. Bibasilar densities favor atelectasis. A pneumonia could also have a similar appearance. No significant central canal narrowing by CT technique. Moderate to severe degenerative disc disease seen throughout the thoracic spine which is similar to the prior study. This is most pronounced at the T8-T9 level which demonstrates mild endplate sclerosis/irregularity and mild paravertebral edema. However, this is similar to the prior study and therefore favors long-standing degenerative change. No erosive changes to suggest a discitis/osteomyelitis at this time. Mild dextroscoliosis of the thoracic spine again noted. Lumbar spine CT: Posterior decompression and fusion from L4 through S1 with pedicle screws and rods. The hardware appears intact. The metallic artifact results in suboptimal evaluation of the lower lumbar spine. However, no acute fractures identified within the lumbar spine. The sacrum appears intact. Mild disc space narrowing within the upper to mid lumbar spine. No endplate erosive changes to suggest a discitis/osteomyelitis. Mild levoscoliosis of the lumbar spine, unchanged. No significant central canal narrowing by CT technique. Paravertebral soft tissues are unremarkable. An IVC filter is noted. IMPRESSION: 1. No acute fractures identified within the thoracic or lumbar spine. 2. Posterior decompression and fusion from L4 through S1 with pedicle screws and rods. The hardware appears intact. 3. No destructive changes to suggest a discitis/osteomyelitis. 4. Degenerative changes as described above most pronounced at the T8-T9 level which demonstrates mild paravertebral edema. This is similar to the prior study and therefore favors long-standing degenerative change. Thoracic Spine CT 08/16/22 08:[address], LUMBAR SPINE CT CT DOSE: 2748.41 mGy.cm HISTORY: Mid and lower back pain. bacteremia unknown source, lumbar hardware TECHNIQUE: Multiaxial CT images of the thoracic and lumbar spine were performed and reformatted in the sagittal and coronal plane without the use of contrast. A dose lowering technique was utilized adhering to the principles of ALARA. COMPARISON: Thoracic and lumbar spine CT 02/28/2022. FINDINGS: THORACIC SPINE CT: There is a small right and trace left pleural effusion. Bibasilar densities favor atelectasis. A pneumonia could also have a similar appearance. No significant central canal narrowing by CT technique. Moderate to severe degenerative disc disease seen throughout the thoracic spine which is similar to the prior study. This is most pronounced at the T8-T9 level which demonstrates mild endplate sclerosis/irregularity and mild paravertebral edema. However, this is similar to the prior study and therefore favors long-standing degenerative change. No erosive changes to suggest a discitis/osteomyelitis at this time. Mild dextroscoliosis of the thoracic spine again noted. Lumbar spine CT: Posterior decompression and fusion from L4 through S1 with pedicle screws and rods. The hardware appears intact. The metallic artifact results in suboptimal evaluation of the lower lumbar spine. However, no acute fractures identified within the lumbar spine. The sacrum appears intact. Mild disc space narrowing within the upper to mid lumbar spine. No endplate erosive changes to suggest a discitis/osteomyelitis. Mild levoscoliosis of the lumbar spine, unchanged. No significant central canal narrowing by CT technique. Paravertebral soft tissues are unremarkable. An IVC filter is noted.
--- NOTE | 2022-08-17 18:35 | Magnetic Resonance Report ---
MR lumbar spine wo con CLINICAL HISTORY: 76 years-old Female with GP bacteremia; re-eval from CT of hardware 4 infx. Chroni c low back pain reported bacteremia COMPARISON: CT lumbar spine August 16, 2022 and February 28, 2022, MRI lumbar spine 10/03/2021 TECHNIQUE: Multiplanar, multi sequence MRI of the lumbar spine was performed without intravenous cont rast. FINDINGS: Motion degraded exam. Posterior interbody adrianna and screw fusion hardware with laminectomy again noted at L4-S1. Artifact from the hardware limits evaluation of these levels. No acute fracture, subluxatio n or endplate erosions identified. Transitional lumbosacral anatomy with a small S1-S2 disc space. 3 mm anterolisthesis L4 on L5 with 5 mm anterolisthesis L4 on L5 is unchanged. Mild The conus medullari s terminates at L1. Signal within the thoracic spinal cord and cauda equina is unremarkable. 1.4 cm L 3 vertebral body hemangioma. No epidural fluid collections. T12-L1: No central canal or neural foraminal stenosis. L1-L2: Minimal spondylitic spurring with moderate facet arthrosis. No central canal or neural foramin al stenosis, unchanged. L2-L3: Mild intervertebral disc space narrowing and spondylitic spurring with small posterior disc os teophyte complex. Ligamentum flavum thickening with moderate facet arthrosis. Mild central canal sten osis, AP dimension of the thecal sac measuring 9 mm. Moderate right with [id number] left neural foraminal narrowing, unchanged. L3-L4: Mild intervertebral disc space narrowing and spondylitic spurring with small posterior disc os teophyte complex. Ligamentum flavum thickening with severe facet arthrosis. Mild central canal stenos is with AP dimension of the thecal sac measuring 9 mm. Severe right with moderate left neural foramin al narrowing, unchanged. L4-L5: Mild spondylitic spurring. The central canal is patent. Unchanged mild bilateral foraminal kaylee rowing. L5-S1: Mild spondylitic spurring with posterior annular disc bulge/disc space uncovering.. The centra l canal and left neural foramen are patent. Mild right foraminal narrowing, unchanged. IMPRESSION: 1. Motion degraded exam. No MR evidence of discitis/osteomyelitis. 2. Posterior interbody adrianna and screw fusion hardware redemonstrated at L4-S1. 3. Spondylitic spurring with discogenic degeneration and facet arthrosis as detailed above. ACT 112: Negative or not required by law. The above report was generated using voice recognition software. It may contain grammatical, syntax o r spelling errors. Electronically signed by: Victor M Reyna M.D. 08/17/2022 6:33 PM
[2022-08-17] MEDS: LIDOCAINE 5% 1 PATCH TD SCH (20:06)
[2022-08-17 22:24] LABS: Appearance Urine Clear (Clear); Bacteria Urine Automated Negative (Negative); Bilirubin Urine Negative (Negative); Blood Urine 3+ (Negative); Color Urine Yellow; Glucose Urine UA Negative (Negative); Ketones Urine Negative (Negative); Leukocyte Esterase Urine Negative (Negative); Nitrite Urine Negative (Negative); Protein Urine Negative (Negative); RBC Urine Automated >30 /hpf (0-4); Urobilinogen Urine Negative (Negative)
[2022-08-18] MEDS: ONDANSETRON INJ 2 MG/ML 2 ML VIAL IV SCH ×5 (00:42→23:55)
[2022-08-18] MEDS: D5W AND LACTATED RINGERS 1,000 ML IV SCH ×2 (04:15→17:47)
[2022-08-18] MEDS: HYDROmorphone INJ 0.5 MG/0.5 ML SYR IV PRN ×2 (04:26→13:38)
[2022-08-18] MEDS: ACETAMINOPHEN 325 MG TAB PO SCH ×3 (06:08→23:55)
[2022-08-18] MEDS: LEVOTHYROXINE SODIUM 50 MCG TABLET PO SCH (06:09)
[2022-08-18 06:39] LABS: Hematocrit (blood only) 27.6 % (37.0-47.0); Hemoglobin 8.9 g/dl (12.0-16.0); Mean Corpuscular Hemoglobin 27.1 pg (25.0-34.0); Mean Corpuscular Hgb Conc 32.2 g/dL (32.0-36.0); Mean Corpuscular Volume 84.1 fL (80.0-100.0); Mean Platelet Volume 11.3 fL (9.4-12.4); Platelet Count 61 K/uL (130-400); RDW Coefficient of Variation 16.7 % (11.5-14.5); RDW Standard Deviation 51.2 fL (36.4-46.3); Red Blood Count 3.28 M/uL (4.20-5.40); White Blood Count 4.66 K/ul (4.8-10.8)
[2022-08-18 06:51] LABS: Potassium 3.4 mmol/L (3.5-5.1)
[2022-08-18 06:52] LABS: Albumin Globulin Ratio 0.5 (0.9-2); BUN Creatinine Ratio 24.8 (10-20); Bilirubin,Total 0.4 mg/dl (0.2-1.0); Calcium 8.3 mg/dl (8.5-10.1); Creatinine Clr Calc Pharmacy 16.7 ml/min; Est GFR (African American) 15.2 ml/min; Est GFR (Non-African American) 13.1 ml/min; Globulin 3.8 gm/dl (2.5-4.0); Phosphorus 4.5 mg/dl (2.5-4.9); Total Protein 5.8 gm/dl (6.0-8.3)
[2022-08-18] MEDS: PANTOprazole 40 MG in SYRINGE 0 ML IV SCH ×2 (07:41→20:41)
[2022-08-18] MEDS: LACTULOSE SYRUP 30 GM/45 ML UDP PO SCH ×2 (07:41→20:39)
[2022-08-18] MEDS: FUROSEMIDE 40 MG/4 ML VIAL IV SCH (07:42)
[2022-08-18] MEDS: MAGNESIUM CHLORIDE W/CALCIUM 64MG DELAYED REL TAB PO SCH ×3 (07:42→20:40)
[2022-08-18] MEDS: cefTRIAXone SODIUM 2,000 MG in DEXTROSE 5% 50 ML IV SCH (07:44)
[2022-08-18] MEDS ORDERED: POTASSIUM CHLORIDE CRTAB 20 MEQ TABCR PO STA (07:49)
--- NOTE | 2022-08-18 07:51 | Hospitalist Progress Note ---
Date of Service August 18, 2022 Assessment & Plan (1) Sepsis: (2) Chest pain: Plan: 76 yo F with PMH HTN, chronic DVT with IVC filter, aortic stenosis, HFpEF, MGUS, cirrhosis, DM2, HLD, ROSALES on CPAP, chronic back pain w/ history of lumbar stenosis s/p surgery with multiple recent hospitalizations. 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 Zosyn to Ceftriaxone for [employer] penetration and antibiotic narrowing - TTE without vegetations; ID recommending DELFIN - Will consult ID for help with duration of treatment - 08/16 Blood Culture: NG@48h - XR b/l knees unremarkable - Urinalysis unremarkable - No leukocytosis --- Lethargy resolved, AOx4 --- MRI spine: Negative --- Patient and family agreeable to proceed with DELFIN, Cardiology consulted and aware of family's decision --- Flagyl added per ID recommendation Back pain - Pt does have chronic back pain, suspect current pain largely due to such history and morbid obesity - She states that this pain is different from her normal back pain, with bacteremia and hardware from spinal fusion, concern for osteomyelitis vs hardware seeding --- CT and MRI negative for infectious source --- Back pain improved today --- Tylenol scheduled w/ Dilaudid 0.25 PRN for pain management Acute kidney injury in setting of CKD3 -Cr 2 on admission, baseline around 1 -Suspect secondary to hypovolemia - Creatine up to 2.72 yesterday evening, down to 2.58 this morning with 1L of fluid over the past 24 hours --- Cr improved to 3.22, ongoing suspicion for fluid overload induced kidney injury w/ known HFpEF --- Nephrology recommending discontinuation of Lasix, renal medication dosing, appreciate recommendations HFpEF - CXR with significant vascular congestion and pulmonary edema - Echocardiogram 07/2022- EF 55-60% --- Continue to diurese as above --- Closely follow I&O, continue Lynn Nausea/Abdominal Pain - KUB with Mild gaseous distention of the large and small bowel which may represent ileus, less likely partial obstruction - Is passing gas, no BM today - Tylenol prn for pain - Compezine, Famotidine, Zofran, Pantoprazole - Both pain and nausea improved - 08/16 Increasing abdominal firmness and tenderness, CTAP obtained suggestive of ileus, no obstruction of infection --- Will change to NPO for bowel rest and discontinue insulin --- Continue D5LR at 80ml/hr, advance diet to clear liquids Elevated troponin and chest pain - Initial Troponin 74 repeat 73 - EKG without acute ST change - Chest pain has resolved Cirrhosis - Continue lactulose - Holding spironolactone given low BP, will resume as BP tolerates - No concern for hepatic encephalopathy or liver failure at present - Trend CMP --- Elevated BUN, no hyperammonemia, mild ascites, resolved abdominal discomfort/firmness Thrombocytopenia -Plts 98 on admission -Does appear chronic and at baseline, likely due to liver cirrhosis -Trend CBC --- Plts stable, no active bleeding DM2 -Holding home glimepiride, metformin -Hold Lantus 5u BID until she is tolerating better PO intake, SSI ordered --- Hypoglycemic, received Dextrose w/ improvement HTN -Holding home lisinopril for EMY ROSALES -CPAP nightly HLD -Continue atorvastatin 10 mg Hypothyroidism -Continue levothyroxine Code status: DNR DVT ppx: SCDs, deferring chemical prophylaxis given thrombocytopenia Isolation: None Dispo: PT/OT ordered, anticipate need for rehab CM: Following (3) CKD (chronic kidney disease): (4) Back pain: (5) Diabetes mellitus with peripheral vascular disease: (6) Streptococcal bacteremia: (7) Pneumonia: Admission and Anticipated Discharge Date Admission Date: August 13, 2022 Supervising Physician Co-Signing Physician Notes I personally examined the patient and verified all almanzar points of history and exam, discussed case, and agree with decision making with Dr Guardado. Currently, patient is improving overall especially with her fluid status. Per nephrology, stop diuresis at this time Hopeful that patient will have a DELFIN tomorrow to diagnose source of bacteremia. Her MRI of the lumbar spine was unremarkable for any signs of osteomyelitis. Continue broad-spectrum antibiotics with addition of Flagyl as recommended by ID today Patient has improved mental status at this time and is agreeable to DELFIN tomorrow Subjective 08/18: Cognition much improved today. Patient denies pain. Denies chest discomfort, dyspnea, pleuritic pain, dysuria, abdominal discomfort, and back pain. Patient noted today that she feels like her abdomen is 'flatter' and that she is losing more fluids. Patient was in good spirits and placed a call to her son/grandson during the visit. Following visit, also spoke with patients HORACIO Be. 08/17: Patient was more conversive today and denied pain this morning. She denies chest discomfort, dyspnea, or abdominal pain. Patient complained of Lynn discomfort today and had multiple large bowel movements. Family was agreeable to proceed with spinal MRI today, test was completed without incident. Review of Systems Review of Systems: As per above Physical Exam Physical Exam: General:pleasant, talkative, obese HEENT: No overt JVD, dry mucous membranes CV: RRR, +systolic murmur over LUSB, normal S1 and S2 Resp: bibasilar crackles, no increased work of breathing Abd: soft, mildly distended, no tenderness to palpation Ext: +1 pitting edema up to knees b/l, bilateral UE edema (symmetric, improving) Neuro: AOx4, no gross focal motor deficits Results & Data Results & Data ([facility]) Vital Signs (Past 12 Hours) Vital Signs Temp Pulse Pulse Resp BP BP Pulse Ox 08/18/22 07:46 36.8 C 75 19 135/57 L 95 08/18/22 03:37 36.6 C 85 20 132/74 96 08/17/22 23:00 79 08/17/22 23:01 83 25 H 100 08/17/22 22:48 36.5 C 84 16 94/48 L 94 O2 Del Method FiO2 08/18/22 07:46 Room Air 08/18/22 03:37 Room Air 08/17/22 23:00 08/17/22 23:01 21 08/17/22 22:48 Room Air Resident Activity Tracking Resident Involvement: Resident Care Provided Care Provided: Adult Hospital Medicine
--- NOTE | 2022-08-18 12:35 | Nephrology Progress Note ---
Date of Service August 18, 2022 Assessment & Plan (1) EMY (acute kidney injury): (2) Volume overload: (3) Lower leg edema: (4) Streptococcal bacteremia: (5) Anemia: Plan 76-year-old female with multiple comorbidities including morbid obesity, recent GI bleeding, repeated episodes of EMY ( b/l cr 1.2) with volume depletion, admitted to hospital with EMY, generalized weakness, bacteremia and volume overload. Renal function has been rapidly worsening over last few days, on admi ssion it is 2.5 which has been worsening. Has moderate degree proteinuria with history of hypertension, diabetes, MGUS. Renal function slightly improved, net negative off of diuretics. -- agree with continuing on IV fluid if po intake remains poor, monitor intake /output -- dose meds for eGFR <15 Will continue to monitor closely. Admission and Anticipated Discharge Date Admission Date: August 13, 2022 Alfredito Boyer was seen and evaluated this am. Overall she looks better today, back pain somewhat better. As po intake was low, Diuretic was stopped yesterday and she was started on IV fluid and seems to be doing better. UO >3 L , net negative. Cr slightly improved to 3.2. On RA, no SOB. Review of Systems Review of Systems: Detailed review of system was otherwise unremarkable. Physical Exam Constitutional: WD/WN, vitals as above + ill appearing and + morbidly obese Eyes: + anicteric sclerae Neck: normal visual inspection Respiratory: no respiratory distress Auscultation: + diminished lung sounds Cardiovascular: Rate/Rhythm: regular rate and regular rhythm Heart Sounds: normal S1 and normal S2 Extremities: + edema (hands edematous, trace b/l LE edema) Skin: no rashes Neurologic: no focal motor deficits Psychiatric: Orientation: alert and oriented x 3 Affect: euthymic affect Results & Data ([facility]) Vital Signs (Past 12 Hours) Vital Signs Temp Pulse Pulse Resp BP BP Pulse Ox 08/18/22 08:00 75 08/18/22 11:41 36.5 C 72 19 153/67 H 99 08/18/22 07:46 36.8 C 75 19 135/57 L 95 08/18/22 03:37 36.6 C 85 20 132/74 96 O2 Del Method 08/18/22 08:00 08/18/22 11:41 Room Air 08/18/22 07:46 Room Air 08/18/22 03:37 Room Air PG Care Time/CCT Total # of Minutes Spent Total Time Spent with Patient: Total time spent is greater than 50% in coordination of care (as documented) at patient's floor/unit and/or counseling patient: Coding Level of Care Code 01192 SUB INP/OBS CARE 3/50MIN Diagnoses EMY (acute kidney injury) N17.9 Volume overload E87.70 Lower leg edema R60.0 Streptococcal bacteremia R78.81; B95.5 Anemia D64.9
[2022-08-18] MEDS: metroNIDAZOLE 500 MG/100 ML BAG IV SCH ×2 (15:07→23:55)
--- NOTE | 2022-08-18 17:10 | Infectious Disease Progress Nt ---
Date of Service August 18, 2022 Assessment & Plan (1) Streptococcal bacteremia: (2) Leukocytosis: (3) Sepsis: (4) EMY (acute kidney injury): (5) Chronic back pain: Plan This is a 76-year-old female with past medical history of hypertension, chronic deep vein thrombosis of RLE sp IVC filter, chronic back pain sp spinal fusion, mod-severe aortic stenosis, monoclonal gammopathy of unknown significance, nonalcoholic fatty liver with cirrhosis, diabetes, ROSALES who was recently admitted 08/04/22-08/09/22 for hepatic encephalopathy and EMY. Prior to this, she was admitted 07/28/21-08/01/21 for diverticular bleed. She presents a few days after last discharge on 08/13 with increased fatigue and marked increase in back pain. She denies any steroid injections of spine or recent back trauma or falls. In the Ed she is afebrile and hemodynamically stable. Admission labs noted for WBC 18.50 , creatinine 2.039, platelets 98, crp 18.21, procalcitonin 28.12, lactate 4.9, troponin 74, urine cx + gamma strep and lactobacillus and BC + for 3/4 bottles for Group g beta streptococcus. Cxr shows cardiomegaly and mild pulmonary edema. An abdominal xray shows An IVC filter ,posterior fixation hardware and gaseous distention of the large bowel and small intestine. She was started on Zosyn and is now on Ceftriaxone. A TTE shows evidence of moderate Aortic stenosis. There is no valve vegetation noted. She is pending MRI spine. On my interview , she is awake and alert and complains of severe back pain ( more than her baseline) and right knee pain and swelling. She denies fever, chills, sweats, skin rash, change in urine or bowel habits, ab pain, n/v, sob, chest pain. Id consulted for evaluation of Group G streptococcus bacteremia. Micro: Bc 08/13 ( 1:) 3/4 bottles group G strep Bc 08/13 1751) NGTD UC 08/13 Gamma strep not enterococcus, Lactobacillus species BC 08/16 NGTD Blood Culture Aerobic Final 08/15/22-1017 Organism 1 Group G Beta Strep Sens Sensitivities to Follow Phoned positive Blood Culture Gram Stain report to Jessica Sims on 08/13/22 at 1328 [place] [id number]. [place] [id number]. Grp.G Strp RX M.I.C. --- --------- Ampicillin S <=0.06 Azithromycin S <=0.25 Cefepime S <=0.25 Cefotaxime S <=0.25 Ceftriaxone S <=0.25 Chloramphenicol S 2 Clindamycin S <=0.06 Erythromycin S <=0.06 Penicillin S <=0.03 Vancomycin S 0.5 Abx: zosyn 08/13-08/15 ceftriaxone 08/15- ongoing: flagyl 08/18- ongoing 1. Group G Beta hemolytic streptococcus bacteremia of unknown origin ( ? gi, endovascular, lsss likely spine) 2. Acute on chronic back pain improving 3. Spinal fusion with hardware in place 4. Moderate Aortic stenosis 5. History of B/L TKA 6. R> L LE edema 7. Right above AC fossa edema and ttp- resolved 8. EMY 9. Chronic thrombocytopenia 10.Ileus on imaging Discussion. She presents with acute on chronic back in setting of Group G streptococcus bacteremia. She is also noted to have BL knee edema/pain, has a history of BL TKA and moderate Aortic stenosis on TTE with corresponding murmur on exam without evidence of valve vegetation ( but limited echo study). Possible sources of her bacteremia include: Spinal infection, endocarditis or prosthetic joint infection/septic arthritis given initial exam findings, presence of hardware and valve abnormalities. It is noted that she had a diverticular bleed earlier in the month, but none currently. She has no evidence of GI infection based on symptoms and physical exam. However, a CT abdomen done on 08/16 shows findings suggestive of ileus, making a GI source of bacteremia possible. She has a mild ttp and swelling and firmness above the AC fossa which could represent soft tissue infection vs superficial phlebitis vs DVt at site of ? prior IV site.She is noted to have gamma streptococcus on urine culture but no urinary symptoms. To date Ct thoracic and lumbar spine w.o contrast shows no findings suggestive of osteo or discitis, intact l4- s1 hardware, long standing degenerative changes at thoracic spine. A limited MRI was done as she was unable to tolerate that showed no acute fractures or enhancements. BL knee xrays shows unremarkable appearing bilateral knee total joint arthroplasties. DELFIN pending . ESR elevated at 89 Her WBc has normalized . Procal has improved to 7.04. Cr slowly improving . On 08/17/ increased diarrhea but on lactulose. Nausea improved Recommendations: Continue ceftriaxone 2 g iv q 24hours for now Continue flagyl 500 mg iv q8 for anaerobic GI coverage Follow up Repeat BC from 08/16 to ensure blood culture clearance Check DELFIN, if clinically stable management of ileus per primary team Final duration of antibiotic therapy will depend on etiology and persistence of bacteremia. If endovascular/endocarditis-- 6 weeks IV, If GI translocation in setting of ileus -2 weeks po abx Discussed recs with team. ID will continue to follow. Corwin Gupta MD, MPH [facility] Call [phone] with questions Admission and Anticipated Discharge Date Admission Date: August 13, 2022 Subjective Subsequent visit was provided via telemedicine using two-way real-time interactive telecommunication between the patient and the telemedicine provider. For the duration of the visit, the provider was performing the assessment from a different facility than the patient. This includesuse of bluetooth stethoscope forauscultationperformed by the telepresenter that the telemedicine provider can hear if described in the physical exam. [employer] contact information: Please call [facility] [phone]. (Phone Number For Physician Use Only) After establishing a telemedicine visit, patient was: Patient/authorized rep acknowledged consent and understanding and Gave permission to continue telehealth session Time Spent with Patient: Subsequent => 25 min She has less back pain and nausea. Cr slowly improving Physical Exam Constitutional: Awake, chronically ill appearing, obese Eyes: EOMI Respiratory: No increased WOB Gastrointestinal (Abdomen): obese,soft , mildly distended , Not tender Musculoskeletal: LEss TTP spinal and paraspinal tenderness to palpation Right LE edema >>Left LE UE edema resolved Neurologic: AAO times 3 Psychiatric: Cooperative Results & Data ([facility]) Vital Signs (Past 12 Hours) Vital Signs Temp Pulse Pulse Resp BP BP Pulse Ox 08/18/22 16:20 36.9 C 73 19 148/62 H 100 08/18/22 08:00 75 08/18/22 11:41 36.5 C 72 19 153/67 H 99 08/18/22 07:46 36.8 C 75 19 135/57 L 95 O2 Del Method 08/18/22 16:20 Room Air 08/18/22 08:00 08/18/22 11:41 Room Air 08/18/22 07:46 Room Air Laboratory Results Laboratory Results - last 48 hr 08/16/22 08/16/22 08/17/22 18:09 23:44 00:13 WBC RBC Hgb Hct MCV MCH MCHC RDW Std Deviation RDW Coeff of Leah Plt Count MPV Absolute Nucleated RBC Nucleated RBC % (auto) Sodium Potassium Chloride Carbon Dioxide Anion Gap BUN Creatinine Est Cr Clr Drug Dosing Est GFR ( Amer) Est GFR (Non-Af Amer) BUN/Creatinine Ratio Glucose POC Glucose 81 65 L* 80 Calcium Phosphorus Total Bilirubin AST ALT Alkaline Phosphatase Total Protein Albumin Globulin Albumin/Globulin Ratio Urine Color Urine Appearance Urine pH Ur Specific Hubertus Urine Protein Urine Glucose (UA) Urine Ketones Urine Blood Urine Nitrite Urine Bilirubin Urine Urobilinogen Ur Leukocyte Esterase Urine WBC (Auto) Urine RBC (Auto) U Hyaline Cast (Auto) U Epithel Cells (Auto) Urine Bacteria (Auto) 08/17/22 08/17/22 08/17/22 05:56 05:56 06:28 WBC 6.14 RBC 3.42 L Hgb 9.2 L Hct 28.2 L MCV 82.5 MCH 26.9 MCHC 32.6 RDW Std Deviation 49.5 H RDW Coeff of Leah 16.4 H Plt Count 59 L MPV 12.0 Absolute Nucleated RBC 0.02 H Nucleated RBC % (auto) 0.3 Sodium 136 Potassium 4.3 Chloride 105 Carbon Dioxide 24 Anion Gap 7 BUN 84 H Creatinine 3.74 H Est Cr Clr Drug Dosing 14.5 Est GFR ( Amer) 12.7 Est GFR (Non-Af Amer) 10.9 BUN/Creatinine Ratio 22.5 H Glucose 93 POC Glucose 86 Calcium 8.2 L Phosphorus 5.2 H Total Bilirubin 0.4 AST 23 ALT 12 Alkaline Phosphatase 83 Total Protein 5.8 L Albumin 2.0 L Globulin 3.8 Albumin/Globulin Ratio 0.5 L Urine Color Urine Appearance Urine pH Ur Specific Hubertus Urine Protein Urine Glucose (UA) Urine Ketones Urine Blood Urine Nitrite Urine Bilirubin Urine Urobilinogen Ur Leukocyte Esterase Urine WBC (Auto) Urine RBC (Auto) U Hyaline Cast (Auto) U Epithel Cells (Auto) Urine Bacteria (Auto) 08/17/22 08/17/22 08/17/22 11:57 18:57 21:31 WBC RBC Hgb Hct MCV MCH MCHC RDW Std Deviation RDW Coeff of Leah Plt Count MPV Absolute Nucleated RBC Nucleated RBC % (auto) Sodium Potassium Chloride Carbon Dioxide Anion Gap BUN Creatinine Est Cr Clr Drug Dosing Est GFR ( Amer) Est GFR (Non-Af Amer) BUN/Creatinine Ratio Glucose POC Glucose 102 H 137 H Calcium Phosphorus Total Bilirubin AST ALT Alkaline Phosphatase Total Protein Albumin Globulin Albumin/Globulin Ratio Urine Color Yellow Urine Appearance Clear Urine pH 5.0 Ur Specific Hubertus 1.010 Urine Protein Negative Urine Glucose (UA) Negative Urine Ketones Negative Urine Blood 3+ H Urine Nitrite Negative Urine Bilirubin Negative Urine Urobilinogen Negative Ur Leukocyte Esterase Negative Urine WBC (Auto) 1-5 Urine RBC (Auto) >30 H U Hyaline Cast (Auto) 1-5 U Epithel Cells (Auto) 5-10 H Urine Bacteria (Auto) Negative 08/18/22 08/18/22 08/18/22 00:26 05:54 05:54 WBC 4.66 L RBC 3.28 L Hgb 8.9 L Hct 27.6 L MCV 84.1 MCH 27.1 MCHC 32.2 RDW Std Deviation 51.2 H RDW Coeff of Leah 16.7 H Plt Count 61 L MPV 11.3 Absolute Nucleated RBC Nucleated RBC % (auto) Sodium 139 Potassium 3.4 L D Chloride 107 Carbon Dioxide 26 Anion Gap 6 BUN 80 H Creatinine 3.22 H D Est Cr Clr Drug Dosing 16.7 Est GFR ( Amer) 15.2 Est GFR (Non-Af Amer) 13.1 BUN/Creatinine Ratio 24.8 H Glucose 127 H POC Glucose 134 H Calcium 8.3 L Phosphorus 4.5 Total Bilirubin 0.4 AST 23 ALT 12 Alkaline Phosphatase 93 Total Protein 5.8 L Albumin 2.0 L Globulin 3.8 Albumin/Globulin Ratio 0.5 L Urine Color Urine Appearance Urine pH Ur Specific Hubertus Urine Protein Urine Glucose (UA) Urine Ketones Urine Blood Urine Nitrite Urine Bilirubin Urine Urobilinogen Ur Leukocyte Esterase Urine WBC (Auto) Urine RBC (Auto) U Hyaline Cast (Auto) U Epithel Cells (Auto) Urine Bacteria (Auto) 08/18/22 08/18/22 06:34 12:21 WBC RBC Hgb Hct MCV MCH MCHC RDW Std Deviation RDW Coeff of Leah Plt Count MPV Absolute Nucleated RBC Nucleated RBC % (auto) Sodium Potassium Chloride Carbon Dioxide Anion Gap BUN Creatinine Est Cr Clr Drug Dosing Est GFR ( Amer) Est GFR (Non-Af Amer) BUN/Creatinine Ratio Glucose POC Glucose 125 H 162 H Calcium Phosphorus Total Bilirubin AST ALT Alkaline Phosphatase Total Protein Albumin Globulin Albumin/Globulin Ratio Urine Color Urine Appearance Urine pH Ur Specific Hubertus Urine Protein Urine Glucose (UA) Urine Ketones Urine Blood Urine Nitrite Urine Bilirubin Urine Urobilinogen Ur Leukocyte Esterase Urine WBC (Auto) Urine RBC (Auto) U Hyaline Cast (Auto) U Epithel Cells (Auto) Urine Bacteria (Auto) Diagnostic Findings Microbiology 08/16/22 07:59 Blood Aerobic Blood Culture - Preliminary No growth in Aerobic bottle after 48 hours. 08/16/22 07:59 Blood Anaerobic Blood Culture - Preliminary No growth in Anaerobic bottle after 48 hours. 08/16/22 08:06 Blood Aerobic Blood Culture - Preliminary No growth in Aerobic bottle after 48 hours. 08/16/22 08:06 Blood Anaerobic Blood Culture - Final 08/13/22 17:51 Blood Aerobic Blood Culture - Preliminary No growth in Aerobic bottle after 48 hours. 08/13/22 17:51 Blood Anaerobic Blood Culture - Preliminary No growth in Anaerobic bottle after 48 hours. 08/13/22 17:51 Blood Aerobic Blood Culture - Preliminary No growth in Aerobic bottle after 48 hours. 08/13/22 17:51 Blood Anaerobic Blood Culture - Preliminary No growth in Anaerobic bottle after 48 hours. 08/13/22 05:10 Urine,Indwelling Cath Urine Culture - Final Gamma strep not enterococcus Lactobacillus species 08/13/22 01:22 Blood Aerobic Blood Culture - Final Group G Beta Strep 08/13/22 01:22 Blood Anaerobic Blood Culture - Final 08/13/22 01:22 Blood Aerobic Blood Culture - Final Group G Beta Strep 08/13/22 01:22 Blood Anaerobic Blood Culture - Final Group G Beta Strep Knee X-Ray 08/16/22 06:58 XR knee RT 1 or 2V routine, XR knee LT 1 or 2V routine HISTORY: 76 years-old Female h/o TKA; bacteremia unknown source chronic bilateral knee pain COMPARISON: ] Radiographs 10/03/2021 TECHNIQUE: 2 views of the bilateral knees FINDINGS: RIGHT: Cortical thickening of the mid femoral diaphysis redemonstrated suggestive of a healed chronic fracture. Total joint arthroplasty with patellar resurfacing. No acute fracture, dislocation or evidence of hardware complication. Arterial calcifications. LEFT: Limited exam secondary to positioning. Unremarkable appearance of the total joint arthroplasty. No acute fracture, dislocation or large joint effusion. IMPRESSION: 1. No acute fracture or dislocation. 2. Unremarkable appearance of the bilateral knee total joint arthroplasties. ACT 112: Negative or not required by law. The above report was generated using voice recognition software. It may contain grammatical, syntax or spelling errors. Electronically signed by: Victor M Reyna M.D. 08/16/2022 9:59 AM Knee X-Ray 08/16/22 07:00 XR knee RT 1 or 2V routine, XR knee LT 1 or 2V routine HISTORY: 76 years-old Female h/o TKA; bacteremia unknown source chronic bilateral knee pain COMPARISON: ] Radiographs 10/03/2021 TECHNIQUE: 2 views of the bilateral knees FINDINGS: RIGHT: Cortical thickening of the mid femoral diaphysis redemonstrated suggestive of a healed chronic fracture. Total joint arthroplasty with patellar resurfacing. No acute fracture, dislocation or evidence of hardware complication. Arterial calcifications. LEFT: Limited exam secondary to positioning. Unremarkable appearance of the total joint arthroplasty. No acute fracture, dislocation or large joint effusion. IMPRESSION: 1. No acute fracture or dislocation. 2. Unremarkable appearance of the bilateral knee total joint arthroplasties. ACT 112: Negative or not required by law. The above report was generated using voice recognition software. It may contain grammatical, syntax or spelling errors. Electronically signed by: Victor M Reyna M.D. 08/16/2022 9:59 AM Abdomen/Pelvis CT 08/16/22 08:[address] WITHOUT CONTRAST CT DOSE: HISTORY: worsening abd distention, altered mental status, bacteremia, cirrhosis TECHNIQUE: Multiaxial CT images of the abdomen and pelvis were performed without contrast. A dose lowering technique was utilized adhering to the principles of ALARA. COMPARISON STUDY: Abdomen and pelvis CT 08/04/2022. FINDINGS: Small right and trace left pleural effusions with bibasilar densities favoring subsegmental atelectasis. The heart remains mildly enlarged. There is a trace pericardial effusion. Prominent anterior pericardial lymph node remains stable measuring up to 11 mm. No pneumoperitoneum. No pneumatosis. Posterior decompression and fusion from L4 through S1 with pedicle screws and rods. No acute fractures identified. Artifact along the right side the abdomen due to the patient's abdominal wall abutting the gantry. There is moderate body wall edema which has slightly progressed. There is a small amount of ascites. Nodular contour to the liver consistent with cirrhosis. This remains unchanged. The spleen is stable in size. Prior cholecystectomy. Mild gastrohepatic/pericaval lymphadenopathy remains unchanged. The adrenal glands are unremarkable. No renal stones or hydronephrosis. An IVC filter appears in good position. No retroperitoneal lymphadenopathy. The bladder is decompressed by Lynn catheter. The uterus and bilateral adnexa are unremarkable. Colonic diverticulosis. No evidence for acute diverticulitis. No bowel wall thickening. Mildly dilated gas and fluid-filled loops of large and small bowel are seen throughout the abdomen. No clear transition point to suggest obstruction. Therefore, this favors an ileus. IMPRESSION: 1. Mildly dilated gas and fluid-filled loops of large and small bowel are seen throughout the abdomen. No clear transition point to suggest obstruction. Therefore, this favors an ileus. 2. Cirrhotic liver with a small amount of ascites. 3. Moderate body wall edema. 4. A few prominent upper abdominal lymph nodes remain stable. This may related to the patient's underlying cirrhosis.. 5. Small right and trace left pleural effusions ACT 112: Negative or not required by law. Electronically signed by: Derian Kerns M.D. 08/16/2022 10:[address] 08/16/22 08:[address], LUMBAR SPINE CT CT DOSE: 2748.41 mGy.cm HISTORY: Mid and lower back pain. bacteremia unknown source, lumbar hardware TECHNIQUE: Multiaxial CT images of the thoracic and lumbar spine were performed and reformatted in the sagittal and coronal plane without the use of contrast. A dose lowering technique was utilized adhering to the principles of ALARA. COMPARISON: Thoracic and lumbar spine CT 02/28/2022. FINDINGS: THORACIC SPINE CT: There is a small right and trace left pleural effusion. Bibasilar densities favor atelectasis. A pneumonia could also have a similar appearance. No significant central canal narrowing by CT technique. Moderate to severe degenerative disc disease seen throughout the thoracic spine which is similar to the prior study. This is most pronounced at the T8-T9 level which demonstrates mild endplate sclerosis/irregularity and mild paravertebral edema. However, this is similar to the prior study and therefore favors long-standing degenerative change. No erosive changes to suggest a discitis/osteomyelitis at this time. Mild dextroscoliosis of the thoracic spine again noted. Lumbar spine CT: Posterior decompression and fusion from L4 through S1 with pedicle screws and rods. The hardware appears intact. The metallic artifact results in suboptimal evaluation of the lower lumbar spine. However, no acute fractures identified within the lumbar spine. The sacrum appears intact. Mild disc space narrowing within the upper to mid lumbar spine. No endplate erosive changes to suggest a discitis/osteomyelitis. Mild levoscoliosis of the lumbar spine, unchanged. No significant central canal narrowing by CT technique. Paravertebral soft tissues are unremarkable. An IVC filter is noted. IMPRESSION: 1. No acute fractures identified within the thoracic or lumbar spine. 2. Posterior decompression and fusion from L4 through S1 with pedicle screws and rods. The hardware appears intact. 3. No destructive changes to suggest a discitis/osteomyelitis. 4. Degenerative changes as described above most pronounced at the T8-T9 level which demonstrates mild paravertebral edema. This is similar to the prior study and therefore favors long-standing degenerative change. ACT 112: Negative or not required by law. Electronically signed by: Derian Kerns M.D. 08/16/2022 9:58 AM Thoracic Spine Lumbar Spine MRI 08/17/22 14:37 MR lumbar spine wo con CLINICAL HISTORY: 76 years-old Female with GP bacteremia; re-eval from CT of hardware 4 infx. Chronic low back pain reported bacteremia COMPARISON: CT lumbar spine August 16, 2022 and February 28, 2022, MRI lumbar spine 10/03/2021 TECHNIQUE: Multiplanar, multi sequence MRI of the lumbar spine was performed without intravenous contrast. FINDINGS: Motion degraded exam. Posterior interbody adrianna and screw fusion hardware with laminectomy again noted at L4-S1. Artifact from the hardware limits evaluation of these levels. No acute fracture, subluxation or endplate erosions identified. Transitional lumbosacral anatomy with a small S1-S2 disc space. 3 mm anterolisthesis L4 on L5 with 5 mm anterolisthesis L4 on L5 is unchanged. Mild The conus medullaris terminates at L1. Signal within the thoracic spinal cord and cauda equina is unremarkable. 1.4 cm L3 vertebral body hemangioma. No epidural fluid collections. T12-L1: No central canal or neural foraminal stenosis. L1-L2: Minimal spondylitic spurring with moderate facet arthrosis. No central canal or neural foraminal stenosis, unchanged. L2-L3: Mild intervertebral disc space narrowing and spondylitic spurring with small posterior disc osteophyte complex. Ligamentum flavum thickening with moderate facet arthrosis. Mild central canal stenosis, AP dimension of the thecal sac measuring 9 mm. Moderate right with [id number] left neural foraminal narrowing, unchanged. L3-L4: Mild intervertebral disc space narrowing and spondylitic spurring with small posterior disc osteophyte complex. Ligamentum flavum thickening with severe facet arthrosis. Mild central canal stenosis with AP dimension of the thecal sac measuring 9 mm. Severe right with moderate left neural foraminal narrowing, unchanged. L4-L5: Mild spondylitic spurring. The central canal is patent. Unchanged mild bilateral foraminal narrowing. L5-S1: Mild spondylitic spurring with posterior annular disc bulge/disc space uncovering.. The central canal and left neural foramen are patent. Mild right foraminal narrowing, unchanged. IMPRESSION: 1. Motion degraded exam. No MR evidence of discitis/osteomyelitis. 2. Posterior interbody adrianna and screw fusion hardware redemonstrated at L4-S1. 3. Spondylitic spurring with discogenic degeneration and facet arthrosis as detailed above. ACT 112: Negative or not required by law. The above report was generated using voice recognition software. It may contain grammatical, syntax or spelling errors. Electronically signed by: Victor M Reyna M.D. 08/17/2022 6:33 PM
[2022-08-18] MEDS: FAMOTIDINE 10 MG in SYRINGE 1.5 ML IV SCH (17:47)
[2022-08-18] MEDS: LIDOCAINE 5% 1 PATCH TD SCH (20:40)
[2022-08-18] MEDS: ATORVASTATIN 10 MG TAB PO SCH (20:40)
[2022-08-19] MEDS: LEVOTHYROXINE SODIUM 50 MCG TABLET PO SCH (05:53)
[2022-08-19] MEDS: metroNIDAZOLE 500 MG/100 ML BAG IV SCH ×2 (05:53→15:41)
[2022-08-19] MEDS: D5W AND LACTATED RINGERS 1,000 ML IV SCH ×2 (05:54→15:42)
[2022-08-19] MEDS: ACETAMINOPHEN 325 MG TAB PO SCH ×4 (05:54→21:24)
[2022-08-19] MEDS: ONDANSETRON INJ 2 MG/ML 2 ML VIAL IV SCH ×4 (05:59→23:28)
[2022-08-19 06:04] LABS: Hematocrit (blood only) 29.4 % (37.0-47.0); Hemoglobin 9.5 g/dl (12.0-16.0); Mean Corpuscular Hemoglobin 27.1 pg (25.0-34.0); Mean Corpuscular Hgb Conc 32.3 g/dL (32.0-36.0); Mean Corpuscular Volume 83.8 fL (80.0-100.0); Mean Platelet Volume 10.5 fL (9.4-12.4); Platelet Count 65 K/uL (130-400); RDW Coefficient of Variation 16.6 % (11.5-14.5); RDW Standard Deviation 49.8 fL (36.4-46.3); Red Blood Count 3.51 M/uL (4.20-5.40); White Blood Count 4.28 K/ul (4.8-10.8)
[2022-08-19 06:27] LABS: Albumin Level 2.1 gm/dl (3.4-5.0); Bilirubin,Total 0.5 mg/dl (0.2-1.0); Calcium 8.5 mg/dl (8.5-10.1); Potassium 3.5 mmol/L (3.5-5.1)
[2022-08-19 06:41] LABS: Albumin Globulin Ratio 0.5 (0.9-2); Creatinine Clr Calc Pharmacy 20.1 ml/min; Est GFR (Non-African American) 16.4 ml/min; Globulin 3.9 gm/dl (2.5-4.0); Phosphorus 3.4 mg/dl (2.5-4.9)
--- NOTE | 2022-08-19 07:23 | Hospitalist Progress Note ---
Date of Service August 19, 2022 Assessment & Plan (1) Infective endocarditis: (2) Streptococcal bacteremia: (3) Sepsis: (4) Chest pain: Plan: 76 yo F with PMH HTN, chronic DVT with IVC filter, aortic stenosis, HFpEF, MGUS, cirrhosis, DM2, HLD, ROSALES on CPAP, chronic back pain w/ history of lumbar stenosis s/p surgery with multiple recent hospitalizations. 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 Zosyn to Ceftriaxone for [employer] penetration and antibiotic narrowing - TTE without vegetations; ID recommending DELFIN - Will consult ID for help with duration of treatment - 08/16 Blood Culture: NG@48h - XR b/l knees unremarkable - Urinalysis unremarkable - No leukocytosis --- Lethargy resolved, AOx4 --- CT/MRI spine: Negative --- TTE: Negative --- DELFIN: Positive for Vegetation on Mitral Valve (Meets diagnostic criteria for Infective Endocarditis) --- ID recommending continued Ceftriaxone at 2g daily for 6 weeks, repeat cultures weekly, will likely require PIC line Back pain - Pt does have chronic back pain, suspect current pain largely due to such history and morbid obesity - She states that this pain is different from her normal back pain, with bacteremia and hardware from spinal fusion, concern for osteomyelitis vs hardware seeding - CT and MRI negative for infectious source --- Back pain improved today --- Tylenol scheduled w/ Dilaudid 0.25 PRN for pain management Acute kidney injury in setting of CKD3 -Cr 2 on admission, baseline around 1 -Suspect secondary to hypovolemia - Creatine up to 2.72 yesterday evening, down to 2.58 this morning with 1L of fluid over the past 24 hours --- Cr improved to 2.68, discontinue diuresis, continue to follow --- Appreciate Nephrology recommendations --- Patient tolerating PO well, discontinued D5LR HFpEF - CXR with significant vascular congestion and pulmonary edema - Echocardiogram 07/2022- EF 55-60% --- Closely follow I&O, continue Lynn Nausea/Abdominal Pain - KUB with Mild gaseous distention of the large and small bowel which may represent ileus, less likely partial obstruction - Is passing gas, no BM today - Tylenol prn for pain - Compezine, Famotidine, Zofran, Pantoprazole - Both pain and nausea improved - 1/ Increasing abdominal firmness and tenderness, CTAP obtained suggestive of ileus, no obstruction of infection --- Advance diet as tolerated --- Discontinue D5LR Elevated troponin and chest pain - Initial Troponin 74 repeat 73 - EKG without acute ST change - Chest pain has resolved Cirrhosis - Continue lactulose - Holding spironolactone given low BP, will resume as BP tolerates - No concern for hepatic encephalopathy or liver failure at present - Trend CMP Thrombocytopenia -Plts 98 on admission -Does appear chronic and at baseline, likely due to liver cirrhosis -Trend CBC --- Plts stable, no active bleeding DM2 -Holding home glimepiride, metformin -Hold Lantus 5u BID until she is tolerating better PO intake, SSI ordered HTN -Holding home lisinopril for EMY ROSALES -CPAP nightly HLD -Continue atorvastatin 10 mg Hypothyroidism -Continue levothyroxine Code status: DNR DVT ppx: SCDs, deferring chemical prophylaxis given thrombocytopenia Isolation: None Dispo: PT/OT ordered, anticipate need for rehab CM: Following (5) CKD (chronic kidney disease): (6) Back pain: (7) Diabetes mellitus with peripheral vascular disease: (8) Pneumonia: Admission and Anticipated Discharge Date Admission Date: August 13, 2022 Supervising Physician Co-Signing Physician Notes 76 year-old female with past medical history pertinent for HFpEF, MGUS, hypertension, aortic stenosis, T2DM, HLD, ROSALES, cirrhosis, and lumbar stenosispresenting with streptococcal bacteremia. DELFIN with noted left sided vegetation on mitral valve. Continue antibiotic therapy to complete six week course under direction of ID. Patient examined with resident, agree with documented history, physical exam, and plan. Subjective Rosalind is feeling well and is in good spirits today, her cousin was present at visit. Patient notes that her legs are sensative to touch, but otherwise her pain has improved to 4/10. She denies any chest pain, dyspnea, pleuritic pain, abdominal pain, headaches or vision changes. She continues to urinate via catheter w/o discomfort and is moving her bowels regularly. This morning she was able to transfer to the bedside camode without difficulty. Called and spoke with patient's grandson Haile @ 1900, discussed diagnosis and treatment, informed of patient's clinical progress as well. Review of Systems Review of Systems: As per above Physical Exam Physical Exam: General: pleasant, talkative, obese HEENT: No JVD, dry mucous membranes CV: RRR, +systolic murmur over LUSB, normal S1 and S2 Resp: faint bibasilar crackles, no increased work of breathing Abd: soft, mildly distended, no tenderness to palpation, hypoactive bowel sounds Ext: +1 pitting edema up to knees b/l, UE edema resolved Neuro: AOx4, no gross focal motor deficits Results & Data Results & Data ([facility]) Vital Signs (Past 12 Hours) Vital Signs Temp Pulse Pulse Resp BP Pulse Ox O2 Del Method 08/19/22 03:12 36.6 C 72 16 135/82 99 Room Air 08/19/22 00:52 69 08/19/22 00:01 36.9 C 70 18 115/61 98 Room Air 08/18/22 20:00 36.7 C 69 18 115/61 100 Room Air Resident Activity Tracking Resident Involvement: Resident Care Provided Care Provided: Adult Hospital Medicine
[2022-08-19] MEDS: MAGNESIUM CHLORIDE W/CALCIUM 64MG DELAYED REL TAB PO SCH ×4 (09:49→21:22)
[2022-08-19] MEDS: LACTULOSE SYRUP 30 GM/45 ML UDP PO SCH ×2 (09:50→20:29)
[2022-08-19] MEDS: PANTOprazole 40 MG in SYRINGE 0 ML IV SCH ×2 (09:52→21:22)
[2022-08-19] MEDS: cefTRIAXone SODIUM 2,000 MG in DEXTROSE 5% 50 ML IV SCH (09:55)
[2022-08-19] MEDS: HYDROmorphone INJ 0.5 MG/0.5 ML SYR IV PRN (09:56)
[2022-08-19] MEDS: FAMOTIDINE 10 MG in SYRINGE 1.5 ML IV SCH (09:56)
--- NOTE | 2022-08-19 12:36 | Nephrology Progress Note ---
Date of Service August 19, 2022 Assessment & Plan (1) EMY (acute kidney injury): (2) Volume overload: (3) Lower leg edema: (4) Streptococcal bacteremia: (5) Anemia: Plan 76-year-old female with multiple comorbidities including morbid obesity, recent GI bleeding, repeated episodes of EMY ( b/l cr 1.2) with volume depletion, admitted to hospital with EMY, generalized weakness, bacteremia and volume overload. Renal function has been rapidly worsening over last few days, on admi ssion it is 2.5 which has been worsening. Has moderate degree proteinuria with history of hypertension, diabetes, MGUS. Renal function continues to improved, net negative without diuretics. -- continue on IV fluid as she has been npo and continues to be significantly net negative, DC IV fluid when started on po, monitor intake /output Will continue to monitor closely. Admission and Anticipated Discharge Date Admission Date: August 13, 2022 Subjective Rosalind was seen and evaluated this am. Overall she looks better today, back pain somewhat better. As po intake was low, Diuretic was stopped yesterday and she was started on IV fluid and seems to be doing better. UO >3 L , net negative. Cr slightly improved to 3.2. On RA, no SOB. Review of Systems Review of Systems: Detailed review of system was otherwise unremarkable. Physical Exam Constitutional: WD/WN, vitals as above + ill appearing and + morbidly obese Eyes: + anicteric sclerae Neck: normal visual inspection Respiratory: no respiratory distress Auscultation: + diminished lung sounds Cardiovascular: Rate/Rhythm: regular rate and regular rhythm Heart Sounds: normal S1 and normal S2 Extremities: + edema (hands edematous, trace b/l LE edema) Skin: no rashes Neurologic: no focal motor deficits AAO times 3 Psychiatric: Orientation: alert and oriented x 3 Affect: euthymic affect Cooperative Results & Data ([place]) Vital Signs (Past 12 Hours) Vital Signs Temp Pulse Pulse Resp BP Pulse Ox O2 Del Method 08/19/22 12:19 36.5 C 71 19 151/69 H 96 Room Air 08/19/22 08:00 71 08/19/22 08:00 Nasal Cannula 08/19/22 08:32 36.5 C 75 20 155/67 H 98 Room Air 08/19/22 03:12 36.6 C 72 16 135/82 99 Room Air 08/19/22 00:52 69 O2 Flow Rate 08/19/22 12:19 08/19/22 08:00 08/19/22 08:00 2 08/19/22 08:32 08/19/22 03:12 08/19/22 00:52 PG Care Time/CCT Total # of Minutes Spent Total Time Spent with Patient: Total time spent is greater than 50% in coordination of care (as documented) at patient's floor/unit and/or counseling patient: Coding Level of Care Code 19075 SUB INP/OBS CARE 3/50MIN Diagnoses EMY (acute kidney injury) N17.9 Volume overload E87.70 Lower leg edema R60.0 Streptococcal bacteremia R78.81; B95.5 Anemia D64.9
[2022-08-19] MEDS ORDERED: BENZOCAINE/TETRACAIN/BUTAM 50 APPLN/5 GM CAN EXT ONE (12:53)
--- NOTE | 2022-08-19 12:59 | Anesthesiology Consultation ---
Date of Service August 19, 2022 Assessment & Plan (1) Encounter for pre-operative examination: Chart Review Chart Review: Acceptable Risk for Surgery History Height/Weight Height: 5 ft 1 in Weight: 112.5 kg Allergies Allergy/AdvReac Type Severity Reaction Status Date / Time No Known Allergies Allergy Verified 08/11/22 15:01 Medications Home Medications Medication Instructions Recorded Confirmed Last Taken cholecalciferol (vitamin D3) 50 2,000 unit PO QAM 07/01/18 08/13/22 10/02/21 mcg (2,000 unit) capsule (Vitamin D3) docusate sodium 100 mg capsule 100 mg PO BID PRN Constipation 07/01/18 08/13/22 Unknown multivitamin 1 tab PO QAM 10/14/19 08/13/22 10/02/21 vitamin E 268 mg (400 unit) capsule 400 unit PO QAM 08/14/20 08/13/22 10/02/21 atorvastatin 10 mg tablet 10 mg PO HS #90 tabs 08/12/21 08/13/22 10/02/21 glimepiride 1 mg tablet 1 mg PO BID #180 tabs 08/12/21 08/13/22 10/02/21 coenzyme Q10 200 mg capsule 200 mg PO DAILY 11/01/21 08/13/22 Unknown acetaminophen 325 mg tablet 650 mg PO Q4H PRN fever or pain 03/23/22 08/13/22 Unknown #30 tabs famotidine 20 mg tablet 20 mg PO BID PRN Heartburn 04/05/22 08/13/22 Unknown polyethylene glycol 3350 17 gram 17 g PO DAILY PRN Constipation 04/05/22 08/13/22 Unknown oral powder packet (Miralax) levothyroxine 50 mcg tablet 50 mcg PO DAILY #90 tabs 04/12/22 08/13/22 Unknown lisinopril 10 mg tablet 10 mg PO DAILY 04/25/22 08/13/22 Unknown metformin 500 mg tablet 500 mg PO DAILY 04/25/22 08/13/22 Unknown sodium chloride 1 gram tablet 1,000 mg PO DAILY #90 tabs 07/11/22 08/13/22 Unknown nystatin 100,000 unit/gram topical 1 applic topical TID PRN rash #60 07/20/22 08/13/22 Unknown powder grams spironolactone 25 mg tablet 25 mg PO DAILY #30 tabs 07/20/22 08/13/22 Unknown magnesium chloride 64 mg 128 mg PO TID #540 tabs 07/27/22 08/13/22 Unknown (magnesium chloride) tablet,delayed release ondansetron 4 mg disintegrating 4 mg PO Q6H PRN nausea and 08/01/22 08/13/22 Unknown tablet vomiting #14 tabs furosemide 40 mg tablet (Lasix) 40 mg PO DAILY #30 tabs 08/09/22 08/13/22 Unknown lactulose 20 gram/30 mL oral 30 g (45 mL) PO BID 30 days #2,700 08/09/22 08/13/22 Unknown solution mL Active Medications Generic Name Dose Route Start Last Admin Trade Name Freq PRN Reason Stop Dose Admin Acetaminophen 650 mg 08/15/22 19:00 08/19/22 05:54 Acetaminophen 325 Mg Tab PO 09/14/22 18:59 650 mg Q8 ARMANDO Administration Atorvastatin Calcium 10 mg 08/13/22 21:00 08/18/22 20:40 Atorvastatin 10 Mg Tab PO 09/12/22 20:59 10 mg HS ARMANDO Administration Dextrose 25 - 50 ml 08/13/22 05:12 08/16/22 23:58 Dextrose 50% 50 Ml Syringe IV 09/12/22 05:11 25 ml UD PRN Administration Hypoglycemia Protocol Protocol Hydromorphone HCl 0.25 mg 08/15/22 18:24 08/19/22 09:56 Hydromorphone Inj 0.5 Mg/0.5 Ml Syr IV 08/29/22 18:23 0.25 mg Q6H PRN Administration Pain Pantoprazole Sodium 40 mg/ 10 mls @ 5 mls/min 08/13/22 21:00 08/19/22 09:52 Syringe IV 09/12/22 20:59 5 mls/min BID ARMANDO Administration Prochlorperazine 5 mg/ Syringe 5 mls @ 5 mls/min 08/13/22 17:53 08/16/22 05:00 IV 09/12/22 17:52 5 mls/min Q6H PRN Administration Nausea And Vomiting Ceftriaxone Sodium 2,000 mg/ 70 mls @ 140 mls/hr 08/15/22 09:45 08/19/22 10:43 Dextrose IV 08/29/22 09:44 Infused DAILY@0900 ARMANDO Infusion Famotidine 10 mg/ Syringe 2.5 mls @ 1.25 mls/min 08/17/22 09:00 08/19/22 09:56 IV 09/15/22 08:59 1.25 mls/min QAM ARMANDO Administration Dextrose/Lactated Ringer's 1,000 mls @ 80 mls/hr 08/17/22 00:30 08/19/22 05:54 D5w And Lactated Ringers IV 09/16/22 00:29 80 mls/hr .[id number] ARMANDO Administration Metronidazole 500 mg in 100 mls @ 100 mls/hr 08/18/22 14:15 08/19/22 07:18 Flagyl IV 09/01/22 14:14 Infused Q8H ARMANDO Infusion Lactulose 30 gm 08/13/22 09:00 08/19/22 09:50 Lactulose Syrup 30 Gm/45 Ml Udp PO 09/12/22 08:59 30 gm BID ARMANDO Administration Levothyroxine Sodium 50 mcg 08/13/22 06:30 08/19/22 05:53 Levothyroxine Sodium 50 Mcg Tablet PO 09/12/22 06:29 50 mcg DAILYBB ARMANDO Administration Lidocaine 1 patch 08/15/22 18:30 08/18/22 20:40 Lidocaine 5% 1 Patch TD 09/14/22 18:29 1 patch HS ARMANDO Administration Magnesium Chloride 128 mg 08/13/22 09:00 08/19/22 09:49 Magnesium Chloride W/Calcium 64mg Delayed Rel Tab PO 09/12/22 08:59 128 mg TID ARMANDO Administration Miscellaneous 15 - 30 gm 08/13/22 05:12 08/15/22 11:51 Carbohydrates For Hypoglycemia PO 09/12/22 05:11 30 gm UD PRN Administration Hypoglycemia Protocol Miscellaneous 1 each 08/16/22 08:00 08/19/22 09:51 Remove Lidoderm Patch N/A 09/15/22 07:59 1 each DAILY@0800 ARMANDO Administration Ondansetron HCl 4 mg 08/13/22 18:00 08/19/22 12:52 Ondansetron Inj 2 Mg/Ml 2 Ml Vial IV 09/12/22 17:59 4 mg Q6H ARMANDO Administration Tramadol HCl 50 mg 08/14/22 00:44 08/15/22 05:24 Tramadol Hcl 50 Mg Tablet PO 09/13/22 00:43 50 mg Q4H PRN Administration Moderate Pain Past Medical History Medical History Acute DVT (deep venous thrombosis) 2019> no known cause > Filter to right groin EMY (acute kidney injury) Anemia 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 Chronic back pain Chronic deep vein thrombosis (DVT) 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 to alcohol Cough Diabetes NIDDM Diverticular hemorrhage resolved DVT (deep venous thrombosis) Elevated troponin I level Esophageal varices determined by endoscopy Fatty liver Fever GERD (gastroesophageal reflux disease) GI bleed none at present Hepatic encephalopathy Hyperlipemia Hypertension Hypomagnesemia Hypomagnesemia Hyponatremia Lactate blood increase Liver cirrhosis Lower leg edema Migraine Monoclonal gammopathy Obesity Osteoarthritis Presence of IVC filter Proteinuria Pulmonary embolism 2019 > no known cause > Filter to right groin Thrombocytopenia Vertigo Volume overload Vomiting and diarrhea Weakness Wheezing Past Family History Family History Mother Family history of diabetes mellitus Brother Family history of diabetes mellitus 3 brothers Colorectal cancer Myocardial infarction x 2 Father Myocardial infarction Denies family history of Ovarian cancer Prostate cancer Breast cancer Past Surgical History Surgical History History of bilateral breast reduction surgery History of bilateral cataract extraction History of carpal tunnel release of both wrists History of section x3 History of colonoscopy History of dilatation and curettage History of esophagogastroduodenoscopy (EGD) History of laparoscopic cholecystectomy History of lumbar spinal fusion hardware in place History of tonsillectomy History of tooth extraction all teeth History of total left knee replacement (TKR) History of total right knee replacement (TKR) Social History Smoking Status: Former smoker tobacco type: cigarettes Smoking cigarettes per day: stopped 55 years ago Hx Alcohol Use: No Alcohol type: other alcohol intake frequency: holidays/special occasions only Hx Substance Use: No substance use type: does not use Physical Exam Vital Signs Last Vital Signs Temp 36.5 C 08/19/22 12:19 Pulse 71 08/19/22 12:19 Resp 19 08/19/22 12:19 BP 151/69 H 08/19/22 12:19 Pulse Ox 96 08/19/22 12:19 O2 Del Method 08/19/22 12:19 O2 Flow Rate 2 08/19/22 08:00 FiO2 21 08/17/22 23:01 Testing Laboratory Results 08/19/22 05:51 08/19/22 05:51 PT 14.6 Seconds (9.0-12.0) H 08/12/22 01:18 INR 1.4 (0.9-1.1) H 08/12/22 01:18 Urine Color Yellow 08/17/22 21: Urine Appearance Clear (Clear) 08/17/22 21: Urine pH 5.0 (4.5-7.5) 08/17/22 21: Ur Specific [place] 1.010 (1.000-1.030) 08/17/22 21: Urine Protein Negative (Negative) 08/17/22 21: Urine Glucose (UA) Negative (Negative) 08/17/22 21: Urine Ketones Negative (Negative) 08/17/22 21: Urine Nitrite Negative (Negative) 08/17/22 21: Ur Leukocyte Esterase Negative (Negative) 08/17/22 21:31 Urine WBC (Auto) 1-5 /hpf (0-5) 08/17/22 21:31 Urine RBC (Auto) >30 /hpf (0-4) H 08/17/22 21:31 U Hyaline Cast (Auto) 1-5 /lpf (0-5) 08/17/22 21:31 U Epithel Cells (Auto) 5-10 /lpf (0-5) H 08/17/22 21:31 Urine Bacteria (Auto) Negative (Negative) 08/17/22 21:31 Urine RBC >30 /hpf (0-4) H 08/15/22 13:00 Urine WBC >30 /hpf (0-5) H 08/15/22 13:00 Ur Epithelial Cells 10-20 /lpf (0-5) H 08/15/22 13:00 08/13/22 17:51 Aerobic Blood Culture - Final Blood No growth in Aerobic bottle after 5 days. Anaerobic Blood Culture - Final No growth in Anaerobic bottle after 5 days. 08/13/22 17:51 Aerobic Blood Culture - Final Blood No growth in Aerobic bottle after 5 days. Anaerobic Blood Culture - Final No growth in Anaerobic bottle after 5 days. 08/16/22 07:59 Aerobic Blood Culture - Preliminary Blood No growth in Aerobic bottle after 48 hours. Anaerobic Blood Culture - Preliminary No growth in Anaerobic bottle after 48 hours. 08/16/22 08:06 Aerobic Blood Culture - Preliminary Blood No growth in Aerobic bottle after 48 hours. Anaerobic Blood Culture - Final 08/13/22 05:10 Urine Culture - Final Urine,Indwelling Cath Gamma strep not enterococcus Lactobacillus species 08/13/22 01:22 Aerobic Blood Culture - Final Blood Group G Beta Strep Anaerobic Blood Culture - Final 08/13/22 01:22 Aerobic Blood Culture - Final Blood Group G Beta Strep Anaerobic Blood Culture - Final Group G Beta Strep 08/19/22 12:01 POC Glucose 148 H Electrocardiogram Date: 08/14/22 Findings: + NSR @ and + RBBB LAFB (Bifascicular block) Chest X-Ray Date: 08/13/22 Findings: + cardiomegaly mild pulmonary edema Echocardiogram Date: 08/14/22 LV Function: normal Valvular Disease: + (moderate)
[2022-08-19] MEDS ORDERED: fentaNYL citrate 100 MCG/2 ML VIAL ONE (13:01)
--- NOTE | 2022-08-19 13:40 | Infectious Disease Progress Nt ---
Date of Service August 19, 2022 Assessment & Plan (1) Streptococcal bacteremia: (2) Leukocytosis: (3) Sepsis: (4) EMY (acute kidney injury): (5) Chronic back pain: Plan This is a 76-year-old female with past medical history of hypertension, chronic deep vein thrombosis of RLE sp IVC filter, chronic back pain sp spinal fusion, mod-severe aortic stenosis, monoclonal gammopathy of unknown significance, nonalcoholic fatty liver with cirrhosis, diabetes, ROSALES who was recently admitted 08/04/22-08/09/22 for hepatic encephalopathy and EMY. Prior to this, she was admitted 07/28/21-08/01/21 for diverticular bleed. She presents a few days after last discharge on 08/13 with increased fatigue and marked increase in back pain. She denies any steroid injections of spine or recent back trauma or falls. In the Ed she is afebrile and hemodynamically stable. Admission labs noted for WBC 18.50 , creatinine 2.039, platelets 98, crp 18.21, procalcitonin 28.12, lactate 4.9, troponin 74, urine cx + gamma strep and lactobacillus and BC + for 3/4 bottles for Group g beta streptococcus. Cxr shows cardiomegaly and mild pulmonary edema. An abdominal xray shows An IVC filter ,posterior fixation hardware and gaseous distention of the large bowel and small intestine. She was started on Zosyn and is now on Ceftriaxone. A TTE shows evidence of moderate Aortic stenosis. There is no valve vegetation noted. She was pending MRI spine. On my interview , she is awake and alert and complains of severe back pain ( more than her baseline) and right knee pain and swelling. She denies fever, chills, sweats, skin rash, change in urine or bowel habits, ab pain, n/v, sob, chest pain. Id consulted for evaluation of Group G streptococcus bacteremia. Micro: Bc 08/13 ( 1:) 3/4 bottles group G strep Bc 08/13 1751) NGTD UC 08/13 Gamma strep not enterococcus, Lactobacillus species BC 08/16 NGTD Blood Culture AerobicFinal 08/15/22-1017 Organism 1 Group G Beta Strep Sens Sensitivities to Follow Phoned positive Blood Culture Gram Stain report to Jessica Sims on 08/13/22 at 1328 [place] [id number]. [place] [id number]. Grp.G Strp RX M.I.C. --- --------- Ampicillin S<=0.06 Azithromycin S<=0.25 Cefepime S<=0.25 Cefotaxime S<=0.25 Ceftriaxone S<=0.25 ChloramphenicolS2 Clindamycin S<=0.06 Erythromycin S<=0.06 Penicillin S<=0.03 Vancomycin S0.5 Abx: zosyn 08/13-08/15 ceftriaxone 08/15- ongoing: flagyl 08/18- ongoing 1. Group G Beta hemolytic streptococcus bacteremia Likely secondary to Infective Endocarditis 2. 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 Acute on chronic back pain-improving 4. Spinal fusion with hardware 5. History of B/L TKA 6. EMY 7. Chronic thrombocytopenia 8.Ileus on imaging Discussion. She presents with acute on chronic back in setting of Group G streptococcus bacteremia. She is also noted to have BL knee edema/pain, has a history of BL TKA and moderate Aortic stenosis on TTE with corresponding murmur on exam without evidence of valve vegetation ( but limited echo study).Pursued Possible sources of her bacteremia including Spinal infection, endocarditis or prosthetic joint infection/septic arthritis given initial exam findings, presence of hardware and valve abnormalities. It is noted that she had a diverticular bleed earlier in the month, but none currently. She has no evidence of GI infection She is noted to have gamma streptococcus on urine culture but no urinary symptoms. To date Ct thoracic and lumbar spine w.o contrast shows no findings suggestive of osteo or discitis, intact l4- s1 hardware, long standing degenerative changes at thoracic spine. A limited MRI was done as she was unable to tolerate that showed no acute fractures or enhancements, no osteo/discitis . BL knee xrays shows unremarkable appearing bilateral knee total joint arthroplasties.She has ongoing diarrhea but is on lactulose. Nauseaimproved. WBc normalized but now trending down to 4.28. DELFIN completed 08/19 shows a sclerotic aortic valve with small lesion at the coaptatioan of the right and anon coronary cusps AND a red small mobile lesion 1-2mm at coaptation of posterior and anterior leaflet of the MItral valve, c/w vegetation. ESR elevated at 89. Procal has improved to 7.04. Cr slowly improving . Cardiology reviewed echo per d/w team Recommendations: Continue ceftriaxone 2 g iv q 24hours, anticipate 6 weeks from sterile BC . Tentative end date 09/24/22 Will discontinue flagyl Follow up Repeat BC from 08/16 to ensure blood culture clearance Management of ileus per primary team Can place PICC On Abx , obtain weekly CBC with diff, BMP, LFT, ESR, CRP. Repeat Bc 1 week post completion of abx Discussed recs with team. .If any questions over weekend, call [phone] to discuss with covering ID provider Corwin Gupta MD, MPH [facility], ID Division Admission and Anticipated Discharge Date Admission Date: August 13, 2022 Subjective This patient recommendation is based on a telemedicine consult request which was completed asynchronously through chart review and information provided by the primary physician. The patient was not seen or examined today. The evaluation is consultative in nature and all patient care and treatment decisions can either be accepted or rejected by the patient's primary hospital-based treating physician using their own independent medical judgment for their patient. Time Spent Reviewing Chart: 21 - 30 minutes Attempted to see patient today but was out of room getting DELFIN. E consult follow up completed per chart review. DELFIN results available later in day and noted for a sclerotic aortic valve with small lesion at the coaptatioan of the right and and non coronary cusps AND a red small mobile lesion 1-2mm at coaptation of posterior and anterior leaflet of the MItral valve, c/w vegetation. WBC decreased to 4.28 cr trending down to 2.68 Results & Data ([facility]) Vital Signs (Past 12 Hours) Vital Signs Temp Pulse Pulse Resp BP Pulse Ox O2 Del Method 08/19/22 13:05 71 16 140/89 98 Room Air 08/19/22 12:19 36.5 C 71 19 151/69 H 96 Room Air 08/19/22 08:00 71 08/19/22 08:00 Nasal Cannula 08/19/22 08:32 36.5 C 75 20 155/67 H 98 Room Air 08/19/22 03:12 36.6 C 72 16 135/82 99 Room Air O2 Flow Rate 08/19/22 13:05 08/19/22 12:19 08/19/22 08:00 08/19/22 08:00 2 08/19/22 08:32 08/19/22 03:12 Laboratory Results Laboratory Results - last 48 hr 08/17/22 08/17/22 08/18/22 18:57 21:31 00:26 WBC RBC Hgb Hct MCV MCH MCHC RDW Std Deviation RDW Coeff of Leah Plt Count MPV Sodium Potassium Chloride Carbon Dioxide Anion Gap BUN Creatinine Est Cr Clr Drug Dosing Est GFR ( Amer) Est GFR (Non-Af Amer) BUN/Creatinine Ratio Glucose POC Glucose 137 H 134 H Calcium Phosphorus Total Bilirubin AST ALT Alkaline Phosphatase Total Protein Albumin Globulin Albumin/Globulin Ratio Urine Color Yellow Urine Appearance Clear Urine pH 5.0 Ur Specific [place] 1.010 Urine Protein Negative Urine Glucose (UA) Negative Urine Ketones Negative Urine Blood 3+ H Urine Nitrite Negative Urine Bilirubin Negative Urine Urobilinogen Negative Ur Leukocyte Esterase Negative Urine WBC (Auto) 1-5 Urine RBC (Auto) >30 H U Hyaline Cast (Auto) 1-5 U Epithel Cells (Auto) 5-10 H Urine Bacteria (Auto) Negative 08/18/22 08/18/22 08/18/22 05:54 05:54 06:34 WBC 4.66 L RBC 3.28 L Hgb 8.9 L Hct 27.6 L MCV 84.1 MCH 27.1 MCHC 32.2 RDW Std Deviation 51.2 H RDW Coeff of Leah 16.7 H Plt Count 61 L MPV 11.3 Sodium 139 Potassium 3.4 L D Chloride 107 Carbon Dioxide 26 Anion Gap 6 BUN 80 H Creatinine 3.22 H D Est Cr Clr Drug Dosing 16.7 Est GFR ( Amer) 15.2 Est GFR (Non-Af Amer) 13.1 BUN/Creatinine Ratio 24.8 H Glucose 127 H POC Glucose 125 H Calcium 8.3 L Phosphorus 4.5 Total Bilirubin 0.4 AST 23 ALT 12 Alkaline Phosphatase 93 Total Protein 5.8 L Albumin 2.0 L Globulin 3.8 Albumin/Globulin Ratio 0.5 L Urine Color Urine Appearance Urine pH Ur Specific Charlotte Urine Protein Urine Glucose (UA) Urine Ketones Urine Blood Urine Nitrite Urine Bilirubin Urine Urobilinogen Ur Leukocyte Esterase Urine WBC (Auto) Urine RBC (Auto) U Hyaline Cast (Auto) U Epithel Cells (Auto) Urine Bacteria (Auto) 08/18/22 08/18/22 08/18/22 12:21 18:18 20:01 WBC RBC Hgb Hct MCV MCH MCHC RDW Std Deviation RDW Coeff of Leah Plt Count MPV Sodium Potassium Chloride Carbon Dioxide Anion Gap BUN Creatinine Est Cr Clr Drug Dosing Est GFR ( Amer) Est GFR (Non-Af Amer) BUN/Creatinine Ratio Glucose POC Glucose 162 H 129 H 121 H Calcium Phosphorus Total Bilirubin AST ALT Alkaline Phosphatase Total Protein Albumin Globulin Albumin/Globulin Ratio Urine Color Urine Appearance Urine pH Ur Specific [place] Urine Protein Urine Glucose (UA) Urine Ketones Urine Blood Urine Nitrite Urine Bilirubin Urine Urobilinogen Ur Leukocyte Esterase Urine WBC (Auto) Urine RBC (Auto) U Hyaline Cast (Auto) U Epithel Cells (Auto) Urine Bacteria (Auto) 08/19/22 08/19/22 08/19/22 05:51 05:51 12:01 WBC 4.28 L RBC 3.51 L Hgb 9.5 L Hct 29.4 L MCV 83.8 MCH 27.1 MCHC 32.3 RDW Std Deviation 49.8 H RDW Coeff of Leah 16.6 H Plt Count 65 L MPV 10.5 Sodium 142 Potassium 3.5 Chloride 109 H Carbon Dioxide 27 Anion Gap 6 BUN 67 H Creatinine 2.68 H D Est Cr Clr Drug Dosing 20.1 Est GFR ( Amer) 19.0 Est GFR (Non-Af Amer) 16.4 BUN/Creatinine Ratio 25.0 H Glucose 129 H POC Glucose 148 H Calcium 8.5 Phosphorus 3.4 D Total Bilirubin 0.5 AST 21 ALT 13 Alkaline Phosphatase 92 Total Protein 6.0 Albumin 2.1 L Globulin 3.9 Albumin/Globulin Ratio 0.5 L Urine Color Urine Appearance Urine pH Ur Specific [place] Urine Protein Urine Glucose (UA) Urine Ketones Urine Blood Urine Nitrite Urine Bilirubin Urine Urobilinogen Ur Leukocyte Esterase Urine WBC (Auto) Urine RBC (Auto) U Hyaline Cast (Auto) U Epithel Cells (Auto) Urine Bacteria (Auto) 08/19/22 16:54 WBC RBC Hgb Hct MCV MCH MCHC RDW Std Deviation RDW Coeff of Leah Plt Count MPV Sodium Potassium Chloride Carbon Dioxide Anion Gap BUN Creatinine Est Cr Clr Drug Dosing Est GFR ( Amer) Est GFR (Non-Af Amer) BUN/Creatinine Ratio Glucose POC Glucose 171 H Calcium Phosphorus Total Bilirubin AST ALT Alkaline Phosphatase Total Protein Albumin Globulin Albumin/Globulin Ratio Urine Color Urine Appearance Urine pH Ur Specific [place] Urine Protein Urine Glucose (UA) Urine Ketones Urine Blood Urine Nitrite Urine Bilirubin Urine Urobilinogen Ur Leukocyte Esterase Urine WBC (Auto) Urine RBC (Auto) U Hyaline Cast (Auto) U Epithel Cells (Auto) Urine Bacteria (Auto) Diagnostic Findings Knee X-Ray 08/16/22 06:58 XR knee RT 1 or 2V routine, XR knee LT 1 or 2V routine HISTORY: 76 years-old Female h/o TKA; bacteremia unknown source chronic bilateral knee pain COMPARISON: ] Radiographs 10/03/2021 TECHNIQUE: 2 views of the bilateral knees FINDINGS: RIGHT: Cortical thickening of the mid femoral diaphysis redemonstrated suggestive of a healed chronic fracture. Total joint arthroplasty with patellar resurfacing. No acute fracture, dislocation or evidence of hardware complication. Arterial calcifications. LEFT: Limited exam secondary to positioning. Unremarkable appearance of the total joint arthroplasty. No acute fracture, dislocation or large joint effusion. IMPRESSION: 1. No acute fracture or dislocation. 2. Unremarkable appearance of the bilateral knee total joint arthroplasties. ACT 112: Negative or not required by law. The above report was generated using voice recognition software. It may contain grammatical, syntax or spelling errors. Electronically signed by: Victor M Reyna M.D. 08/16/2022 9:59 AM Knee X-Ray 08/16/22 07:00 XR knee RT 1 or 2V routine, XR knee LT 1 or 2V routine HISTORY: 76 years-old Female h/o TKA; bacteremia unknown source chronic bilateral knee pain COMPARISON: ] Radiographs 10/03/2021 TECHNIQUE: 2 views of the bilateral knees FINDINGS: RIGHT: Cortical thickening of the mid femoral diaphysis redemonstrated suggestive of a healed chronic fracture. Total joint arthroplasty with patellar resurfacing. No acute fracture, dislocation or evidence of hardware complication. Arterial calcifications. LEFT: Limited exam secondary to positioning. Unremarkable appearance of the total joint arthroplasty. No acute fracture, dislocation or large joint effusion. IMPRESSION: 1. No acute fracture or dislocation. 2. Unremarkable appearance of the bilateral knee total joint arthroplasties. ACT 112: Negative or not required by law. The above report was generated using voice recognition software. It may contain grammatical, syntax or spelling errors. Electronically signed by: Victor M Reyna M.D. 08/16/2022 9:59 AM Abdomen/Pelvis CT 08/16/22 08:[address] WITHOUT CONTRAST CT DOSE: HISTORY: worsening abd distention, altered mental status, bacteremia, cirrhosis TECHNIQUE: Multiaxial CT images of the abdomen and pelvis were performed without contrast. A dose lowering technique was utilized adhering to the principles of ALARA. COMPARISON STUDY: Abdomen and pelvis CT 08/04/2022. FINDINGS: Small right and trace left pleural effusions with bibasilar densities favoring subsegmental atelectasis. The heart remains mildly enlarged. There is a trace pericardial effusion. Prominent anterior pericardial lymph node remains stable measuring up to 11 mm. No pneumoperitoneum. No pneumatosis. Posterior decompression and fusion from L4 through S1 with pedicle screws and rods. No acute fractures identified. Artifact along the right side the abdomen due to the patient's abdominal wall abutting the gantry. There is moderate body wall edema which has slightly progressed. There is a small amount of ascites. Nodular contour to the liver consistent with cirrhosis. This remains unchanged. The spleen is stable in size. Prior cholecystectomy. Mild gastrohepatic/pericaval lymphadenopathy remains unchanged. The adrenal glands are unremarkable. No renal stones or hydronephrosis. An IVC filter appears in good position. No retroperitoneal lymphadenopathy. The bladder is decompressed by Lynn catheter. The uterus and bilateral adnexa are unremarkable. Colonic diverticulosis. No evidence for acute diverticulitis. No bowel wall thickening. Mildly dilated gas and fluid-filled loops of large and small bowel are seen throughout the abdomen. No clear transition point to suggest obstruction. Therefore, this favors an ileus. IMPRESSION: 1. Mildly dilated gas and fluid-filled loops of large and small bowel are seen throughout the abdomen. No clear transition point to suggest obstruction. Therefore, this favors an ileus. 2. Cirrhotic liver with a small amount of ascites. 3. Moderate body wall edema. 4. A few prominent upper abdominal lymph nodes remain stable. This may related to the patient's underlying cirrhosis.. 5. Small right and trace left pleural effusions ACT 112: Negative or not required by law. Electronically signed by: Derian Kerns M.D. 08/16/2022 10:[address] 08/16/22 08:[address], LUMBAR SPINE CT CT DOSE: 2748.41 mGy.cm HISTORY: Mid and lower back pain. bacteremia unknown source, lumbar hardware TECHNIQUE: Multiaxial CT images of the thoracic and lumbar spine were performed and reformatted in the sagittal and coronal plane without the use of contrast. A dose lowering technique was utilized adhering to the principles of ALARA. COMPARISON: Thoracic and lumbar spine CT 02/28/2022. FINDINGS: THORACIC SPINE CT: There is a small right and trace left pleural effusion. Bibasilar densities favor atelectasis. A pneumonia could also have a similar appearance. No significant central canal narrowing by CT technique. Moderate to severe degenerative disc disease seen throughout the thoracic spine which is similar to the prior study. This is most pronounced at the T8-T9 level which demonstrates mild endplate sclerosis/irregularity and mild paravertebral edema. However, this is similar to the prior study and therefore favors long-standing degenerative change. No erosive changes to suggest a discitis/osteomyelitis at this time. Mild dextroscoliosis of the thoracic spine again noted. Lumbar spine CT: Posterior decompression and fusion from L4 through S1 with pedicle screws and rods. The hardware appears intact. The metallic artifact results in suboptimal evaluation of the lower lumbar spine. However, no acute fractures identified within the lumbar spine. The sacrum appears intact. Mild disc space narrowing within the upper to mid lumbar spine. No endplate erosive changes to suggest a discitis/osteomyelitis. Mild levoscoliosis of the lumbar spine, unchanged. No significant central canal narrowing by CT technique. Paravertebral soft tissues are unremarkable. An IVC filter is noted. IMPRESSION: 1. No acute fractures identified within the thoracic or lumbar spine. 2. Posterior decompression and fusion from L4 through S1 with pedicle screws and rods. The hardware appears intact. 3. No destructive changes to suggest a discitis/osteomyelitis. 4. Degenerative changes as described above most pronounced at the T8-T9 level which demonstrates mild paravertebral edema. This is similar to the prior study and therefore favors long-standing degenerative change. Lumbar Spine MRI 08/17/22 14:37 MR lumbar spine wo con CLINICAL HISTORY: 76 years-old Female with GP bacteremia; re-eval from CT of hardware 4 infx. Chronic low back pain reported bacteremia COMPARISON: CT lumbar spine August 16, 2022 and February 28, 2022, MRI lumbar spine 10/03/2021 TECHNIQUE: Multiplanar, multi sequence MRI of the lumbar spine was performed without intravenous contrast. FINDINGS: Motion degraded exam. Posterior interbody adrianna and screw fusion hardware with laminectomy again noted at L4-S1. Artifact from the hardware limits evaluation of these levels. No acute fracture, subluxation or endplate erosions identified. Transitional lumbosacral anatomy with a small S1-S2 disc space. 3 mm anterolisthesis L4 on L5 with 5 mm anterolisthesis L4 on L5 is unchanged. Mild The conus medullaris terminates at L1. Signal within the thoracic spinal cord and cauda equina is unremarkable. 1.4 cm L3 vertebral body hemangioma. No epidural fluid collections. T12-L1: No central canal or neural foraminal stenosis. L1-L2: Minimal spondylitic spurring with moderate facet arthrosis. No central canal or neural foraminal stenosis, unchanged. L2-L3: Mild intervertebral disc space narrowing and spondylitic spurring with small posterior disc osteophyte complex. Ligamentum flavum thickening with moderate facet arthrosis. Mild central canal stenosis, AP dimension of the thecal sac measuring 9 mm. Moderate right with [id number] left neural foraminal narrowing, unchanged. L3-L4: Mild intervertebral disc space narrowing and spondylitic spurring with small posterior disc osteophyte complex. Ligamentum flavum thickening with severe facet arthrosis. Mild central canal stenosis with AP dimension of the thecal sac measuring 9 mm. Severe right with moderate left neural foraminal narrowing, unchanged. L4-L5: Mild spondylitic spurring. The central canal is patent. Unchanged mild bilateral foraminal narrowing. L5-S1: Mild spondylitic spurring with posterior annular disc bulge/disc space uncovering.. The central canal and left neural foramen are patent. Mild right foraminal narrowing, unchanged. IMPRESSION: 1. Motion degraded exam. No MR evidence of discitis/osteomyelitis. 2. Posterior interbody adrianna and screw fusion hardware redemonstrated at L4-S1. 3. Spondylitic spurring with discogenic degeneration and facet arthrosis as detailed above. ACT 112: Negative or not required by law. The above report was generated using voice recognition software. It may contain grammatical, syntax or spelling errors. Electronically signed by: Victor M Reyna M.D. 08/17/2022 6:33 PM Medications Administered Home Medications Medication Instructions Recorded Confirmed Last Taken cholecalciferol (vitamin D3) 50 2,000 unit PO QAM 07/01/18 08/13/22 10/02/21 mcg (2,000 unit) capsule (Vitamin D3) docusate sodium 100 mg capsule 100 mg PO BID PRN Constipation 07/01/18 08/13/22 Unknown multivitamin 1 tab PO QAM 10/14/19 08/13/22 10/02/21 vitamin E 268 mg (400 unit) capsule 400 unit PO QAM 08/14/20 08/13/22 10/02/21 atorvastatin 10 mg tablet 10 mg PO HS #90 tabs 08/12/21 08/13/22 10/02/21 glimepiride 1 mg tablet 1 mg PO BID #180 tabs 08/12/21 08/13/22 10/02/21 coenzyme Q10 200 mg capsule 200 mg PO DAILY 11/01/21 08/13/22 Unknown acetaminophen 325 mg tablet 650 mg PO Q4H PRN fever or pain 03/23/22 08/13/22 Unknown #30 tabs famotidine 20 mg tablet 20 mg PO BID PRN Heartburn 04/05/22 08/13/22 Unknown polyethylene glycol 3350 17 gram 17 g PO DAILY PRN Constipation 04/05/22 08/13/22 Unknown oral powder packet (Miralax) levothyroxine 50 mcg tablet 50 mcg PO DAILY #90 tabs 04/12/22 08/13/22 Unknown lisinopril 10 mg tablet 10 mg PO DAILY 04/25/22 08/13/22 Unknown metformin 500 mg tablet 500 mg PO DAILY 04/25/22 08/13/22 Unknown sodium chloride 1 gram tablet 1,000 mg PO DAILY #90 tabs 07/11/22 08/13/22 Unknown nystatin 100,000 unit/gram topical 1 applic topical TID PRN rash #60 07/20/22 08/13/22 Unknown powder grams spironolactone 25 mg tablet 25 mg PO DAILY #30 tabs 07/20/22 08/13/22 Unknown magnesium chloride 64 mg 128 mg PO TID #540 tabs 07/27/22 08/13/22 Unknown (magnesium chloride) tablet,delayed release ondansetron 4 mg disintegrating 4 mg PO Q6H PRN nausea and 08/01/22 08/13/22 Unknown tablet vomiting #14 tabs furosemide 40 mg tablet (Lasix) 40 mg PO DAILY #30 tabs 08/09/22 08/13/22 Unknown lactulose 20 gram/30 mL oral 30 g (45 mL) PO BID 30 days #2,700 08/09/22 08/13/22 Unknown solution mL Active Medications Generic Name Dose Route Start Last Admin Trade Name Clintq PRN Reason Stop Dose Admin Acetaminophen 650 mg 08/15/22 19:00 08/19/22 15:42 Acetaminophen 325 Mg Tab PO 09/14/22 18:59 650 mg Q8 ARMANDO Administration Atorvastatin Calcium 10 mg 08/13/22 21:00 08/18/22 20:40 Atorvastatin 10 Mg Tab PO 09/12/22 20:59 10 mg HS ARMANDO Administration Dextrose 25 - 50 ml 08/13/22 05:12 08/16/22 23:58 Dextrose 50% 50 Ml Syringe IV 09/12/22 05:11 25 ml UD PRN Administration Hypoglycemia Protocol Protocol Hydromorphone HCl 0.25 mg 08/15/22 18:24 08/19/22 09:56 Hydromorphone Inj 0.5 Mg/0.5 Ml Syr IV 08/29/22 18:23 0.25 mg Q6H PRN Administration Pain Pantoprazole Sodium 40 mg/ 10 mls @ 5 mls/min 08/13/22 21:00 08/19/22 09:52 Syringe IV 09/12/22 20:59 5 mls/min BID ARMANDO Administration Prochlorperazine 5 mg/ Syringe 5 mls @ 5 mls/min 08/13/22 17:53 08/16/22 05:00 IV 09/12/22 17:52 5 mls/min Q6H PRN Administration Nausea And Vomiting Ceftriaxone Sodium 2,000 mg/ 70 mls @ 140 mls/hr 08/15/22 09:45 08/19/22 10:43 Dextrose IV 08/29/22 09:44 Infused DAILY@0900 ARMANDO Infusion Famotidine 10 mg/ Syringe 2.5 mls @ 1.25 mls/min 08/17/22 09:00 08/19/22 09:56 IV 09/15/22 08:59 1.25 mls/min QAM ARMANDO Administration Dextrose/Lactated Ringer's 1,000 mls @ 80 mls/hr 08/17/22 00:30 08/19/22 15:42 D5w And Lactated Ringers IV 09/16/22 00:29 80 mls/hr .[id number] ARMANDO Administration Metronidazole 500 mg in 100 mls @ 100 mls/hr 08/18/22 14:15 08/19/22 17:09 Flagyl IV 09/01/22 14:14 Infused Q8H ARMANDO Infusion Lactulose 30 gm 08/13/22 09:00 08/19/22 09:50 Lactulose Syrup 30 Gm/45 Ml Udp PO 09/12/22 08:59 30 gm BID ARMANDO Administration Levothyroxine Sodium 50 mcg 08/13/22 06:30 08/19/22 05:53 Levothyroxine Sodium 50 Mcg Tablet PO 09/12/22 06:29 50 mcg DAILYBB ARMANDO Administration Lidocaine 1 patch 08/15/22 18:30 08/18/22 20:40 Lidocaine 5% 1 Patch TD 09/14/22 18:29 1 patch HS ARMANDO Administration Magnesium Chloride 128 mg 08/13/22 09:00 08/19/22 15:42 Magnesium Chloride W/Calcium 64mg Delayed Rel Tab PO 09/12/22 08:59 128 mg TID ARMANDO Administration Miscellaneous 15 - 30 gm 08/13/22 05:12 08/15/22 11:51 Carbohydrates For Hypoglycemia PO 09/12/22 05:11 30 gm UD PRN Administration Hypoglycemia Protocol Miscellaneous 1 each 08/16/22 08:00 08/19/22 09:51 Remove Lidoderm Patch N/A 09/15/22 07:59 1 each DAILY@0800 ARMANDO Administration Ondansetron HCl 4 mg 08/13/22 18:00 08/19/22 12:52 Ondansetron Inj 2 Mg/Ml 2 Ml Vial IV 09/12/22 17:59 4 mg Q6H ARMANDO Administration Tramadol HCl 50 mg 08/14/22 00:44 08/15/22 05:24 Tramadol Hcl 50 Mg Tablet PO 09/13/22 00:43 50 mg Q4H PRN Administration Moderate Pain
[2022-08-19] MEDS ORDERED: LIDOCAINE 2% MPF LOCAL 5 ML VIAL INFIL ONE (13:43)
[2022-08-19] MEDS ORDERED: PROPOFOL IV EMULSION 10 MG/ML 20 ML VIAL IV ONE (13:43)
[2022-08-19] MEDS ORDERED: PHENYLEPHRINE 100MCG/ML 5ML SYR ONE (13:43)
--- NOTE | 2022-08-19 14:05 | Anesthesiology Progress Note ---
Date of Service August 19, 2022 Anesthesia Post Procedure Vital Signs Vital Signs: Temp Pulse Pulse Resp BP Pulse Ox O2 Del Method 08/19/22 14:00 72 18 128/55 L 98 Room Air 08/19/22 13:45 73 18 133/53 L 100 Oxymask 08/19/22 13:35 73 18 113/47 L 100 Oxymask 08/19/22 13:05 71 16 140/89 98 Room Air 08/19/22 12:19 36.5 C 71 19 151/69 H 96 Room Air 08/19/22 08:00 71 08/19/22 08:00 Nasal Cannula 08/19/22 08:32 36.5 C 75 20 155/67 H 98 Room Air 08/19/22 03:12 36.6 C 72 16 135/82 99 Room Air 08/19/22 00:52 69 08/19/22 00:01 36.9 C 70 18 115/61 98 Room Air 08/18/22 20:00 36.7 C 69 18 115/61 100 Room Air 08/18/22 16:00 73 08/18/22 16:20 36.9 C 73 19 148/62 H 100 Room Air O2 Flow Rate 08/19/22 14:00 08/19/22 13:45 5 08/19/22 13:35 5 08/19/22 13:05 08/19/22 12:19 08/19/22 08:00 08/19/22 08:00 2 08/19/22 08:32 08/19/22 03:12 08/19/22 00:52 08/19/22 00:01 08/18/22 20:00 08/18/22 16:00 08/18/22 16:20 Pain Intensity Back: Pain Intensity: 10 Transfer of Care Handoff Completed per policy Notes Mental Status: alert / awake / arousable Patient Amnestic to Procedure: Yes Nausea / Vomiting: adequately controlled Pain: adequately controlled Airway Patency, RR, SpO2: stable & adequate BP & HR: stable & adequate Hydration State: stable & adequate Anesthetic Complications: no major complications apparent
--- NOTE | 2022-08-19 17:04 | XCELERA ---
[id number]
[2022-08-19] MEDS: LIDOCAINE 5% 1 PATCH TD SCH (21:21)
[2022-08-19] MEDS: ATORVASTATIN 10 MG TAB PO SCH (21:22)
[2022-08-20] MEDS: ONDANSETRON INJ 2 MG/ML 2 ML VIAL IV SCH ×3 (06:08→19:10)
[2022-08-20] MEDS: LEVOTHYROXINE SODIUM 50 MCG TABLET PO SCH (06:24)
[2022-08-20] MEDS: ACETAMINOPHEN 325 MG TAB PO SCH ×3 (06:24→21:35)
[2022-08-20] MEDS: traMADol HCL 50 MG TABLET PO PRN (07:11)
[2022-08-20] MEDS: MAGNESIUM CHLORIDE W/CALCIUM 64MG DELAYED REL TAB PO SCH ×3 (08:07→21:33)
[2022-08-20] MEDS: LACTULOSE SYRUP 30 GM/45 ML UDP PO SCH ×2 (08:07→21:33)
[2022-08-20] MEDS: PANTOprazole 40 MG in SYRINGE 0 ML IV SCH ×2 (08:07→21:33)
--- NOTE | 2022-08-20 08:07 | Hospitalist Progress Note ---
Date of Service August 20, 2022 Assessment & Plan (1) Infective endocarditis: (2) Streptococcal bacteremia: (3) Sepsis: (4) Chest pain: Plan: 76 yo F with PMH HTN, chronic DVT with IVC filter, aortic stenosis, HFpEF, MGUS, cirrhosis, DM2, HLD, ROSALES on CPAP, chronic back pain w/ history of lumbar stenosis s/p surgery with multiple recent hospitalizations. 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 Zosyn to Ceftriaxone for MANAGER EPIC penetration and antibiotic narrowing - TTE without vegetations; ID recommending DELFIN - Will consult ID for help with duration of treatment - 08/16 Blood Culture: NG@48h - XR b/l knees unremarkable - Urinalysis unremarkable - No leukocytosis --- Lethargy resolved, AOx4 --- CT/MRI spine: Negative --- TTE: Negative --- DELFIN: Positive for Vegetation on Mitral Valve (Meets diagnostic criteria for Infective Endocarditis) --- ID recommending continued Ceftriaxone at 2g daily for 6 weeks, repeat cultures weekly, will likely require picc line Atrial Fibrillation - Patient had brief episode of PAT this morning which provoked atrial fibrillation, evidenced on AM EKG - Rates averaging 150-160 in AM, received 5 mg Lopressor IV, rates to 120-130 w/ BP drop to 60s/40s - Evaluated at bedside, 500 cc bolus given, BP improved to 80/50s --- Cardiology consulted given infective endocarditis - agreeable to dose of Diltiazem, recommended Propranolol if needed nursing home, poor candidate for anticoagulation Back pain - Pt does have chronic back pain, suspect current pain largely due to such history and morbid obesity - She states that this pain is different from her normal back pain, with bacteremia and hardware from spinal fusion, concern for osteomyelitis vs hardware seeding - CT and MRI negative for infectious source --- Back pain improved today --- Tylenol scheduled w/ Dilaudid 0.25 PRN for pain management Acute kidney injury in setting of CKD3 -Cr 2 on admission, baseline around 1 -Suspect secondary to hypovolemia - Creatine up to 2.72 yesterday evening, down to 2.58 this morning with 1L of fluid over the past 24 hours --- Cr improved to 2.02, discontinue diuresis, continue to follow --- Appreciate Nephrology recommendations --- Patient tolerating PO well, discontinued D5LR HFpEF - CXR with significant vascular congestion and pulmonary edema - Echocardiogram 07/2022- EF 55-60% --- Closely follow I&O, continue Lynn Nausea/Abdominal Pain - KUB with Mild gaseous distention of the large and small bowel which may represent ileus, less likely partial obstruction - Is passing gas, no BM today - Tylenol prn for pain - Compezine, Famotidine, Zofran, Pantoprazole - Both pain and nausea improved - 08/16 Increasing abdominal firmness and tenderness, CTAP obtained suggestive of ileus, no obstruction of infection --- Advance diet as tolerated --- Discontinue D5LR Elevated troponin and chest pain - Initial Troponin 74 repeat 73 - EKG without acute ST change - Chest pain has resolved Cirrhosis - Continue lactulose - Holding spironolactone given low BP, will resume as BP tolerates - No concern for hepatic encephalopathy or liver failure at present - Trend CMP Thrombocytopenia -Plts 98 on admission -Does appear chronic and at baseline, likely due to liver cirrhosis -Trend CBC --- Plts stable, no active bleeding DM2 -Holding home glimepiride, metformin -Hold Lantus 5u BID until she is tolerating better PO intake, SSI ordered HTN -Holding home lisinopril for EMY ROSALES -CPAP nightly HLD -Continue atorvastatin 10 mg Hypothyroidism -Continue levothyroxine Code status: DNR DVT ppx: SCDs, deferring chemical prophylaxis given thrombocytopenia Isolation: None Dispo: PT/OT ordered, anticipate need for rehab CM: Following (5) CKD (chronic kidney disease): (6) Back pain: (7) Diabetes mellitus with peripheral vascular disease: (8) Pneumonia: Admission and Anticipated Discharge Date Admission Date: August 13, 2022 Supervising Physician Co-Signing Physician Notes 76 year-old female with past medical history pertinent for HFpEF, MGUS, hypertension, aortic stenosis, T2DM, HLD, ROSALES, cirrhosis, and lumbar stenosispresenting with streptococcal bacteremia and diagnosed with infective endocarditis. Patient went into atrial fibrillation this morning, received one dose lopressor, then initiation of diltiazem infusion eventually brought her back into NSR. Cardiology consulted, appreciate recs. Will consent for PICC placement, patient will require 6 weeks antibiotic therapy. Patient examined ind ependently, agree with documented history, physical exam, and plan. Subjective Rosalind is feeling well and is in good spirits today. Patient notes her pain continues to improve. She denies any chest pain, dyspnea, pleuritic pain, abdominal pain, headaches or vision changes. She continues to urinate via catheter w/o discomfort and is moving her bowels regularly. She continues to transfer well within room and was sitting upright in the chair upon arrival. At 0800 patient converted to Atrial fibrillation w/ rates 150s-160s, she was given a dose of Lopressor and her rates improved, but her BP dropped. Presented to the patient's room and she endorsed lightheadedness and fatigue. Gave 500 cc bolus and symptoms improved. Cardizem given to control rate. Patient converted back to NSR in the afternoon and has remained so. Review of Systems Review of Systems: As per above Physical Exam Physical Exam: General: pleasant, talkative, obese HEENT: No JVD, dry mucous membranes CV: irregularly irregular (0830), +systolic murmur over LUSB, normal S1 and S2 Resp: CTAB, no increased work of breathing Abd: soft, mildly distended, no tenderness to palpation, hypoactive bowel sounds Ext: +1 pitting edema up to knees b/l, UE edema resolved Neuro: AOx4, no gross focal motor deficits Results & Data Results & Data ([facility]) Vital Signs (Past 12 Hours) Vital Signs Temp Pulse Pulse Resp BP Pulse Ox O2 Del Method 08/20/22 05:15 36.4 C L 73 14 145/74 H 98 Room Air 08/20/22 00:00 16 08/19/22 23:00 68 Resident Activity Tracking Resident Involvement: Resident Care Provided Care Provided: Adult Hospital Medicine
[2022-08-20] MEDS: FAMOTIDINE 10 MG in SYRINGE 1.5 ML IV SCH (08:08)
[2022-08-20] MEDS: cefTRIAXone SODIUM 2,000 MG in DEXTROSE 5% 50 ML IV SCH (08:08)
[2022-08-20 08:40] LABS: Bilirubin,Total 0.5 mg/dl (0.2-1.0); Calcium 8.4 mg/dl (8.5-10.1); Potassium 3.7 mmol/L (3.5-5.1)
[2022-08-20] MEDS ORDERED: METOPROLOL TARTRATE 1 MG/ML VIAL IV STA (08:45)
[2022-08-20 08:46] LABS: BUN Creatinine Ratio 27.7 (10-20); Creatinine Clr Calc Pharmacy 26.2 ml/min; Est GFR (African American) 26.7 ml/min; Phosphorus 2.8 mg/dl (2.5-4.9); Total Protein 6.3 gm/dl (6.0-8.3)
[2022-08-20 08:54] LABS: Hematocrit (blood only) 31.3 % (37.0-47.0); Hemoglobin 9.9 g/dl (12.0-16.0); Mean Corpuscular Hemoglobin 27.4 pg (25.0-34.0); Mean Corpuscular Hgb Conc 31.6 g/dL (32.0-36.0); Mean Corpuscular Volume 86.7 fL (80.0-100.0); Mean Platelet Volume 10.9 fL (9.4-12.4); Platelet Count 74 K/uL (130-400); RDW Coefficient of Variation 17.2 % (11.5-14.5); RDW Standard Deviation 52.2 fL (36.4-46.3); Red Blood Count 3.61 M/uL (4.20-5.40); White Blood Count 4.32 K/ul (4.8-10.8)
[2022-08-20] MEDS ORDERED: SODIUM CHLORIDE 0.9% 1000ML 500 ML IV ONE (10:07)
--- NOTE | 2022-08-20 10:45 | Cardiology Consultation ---
Date of Consultation August 20, 2022 Assessment & Plan (1) Atrial fibrillation with rapid ventricular response: (2) Infective endocarditis: (3) Aortic stenosis: (4) Elevated troponin: (5) Diastolic dysfunction: Plan 1. Atrial fibrillation: Patient valve atrial fibrillation with rapid ventricular response earlier this morning. She did convert back to sinus briefly and then returned to atrial fibrillation. She is certainly at risk for atrial fibrillation given her known left atrial dilation and other comorbidities. I would suspect likely precipitant is simply volume changes over the course of this hospitalization. As this is the 1st known episode of atrial fibrillation it is certainly possible that she will convert back to sinus in short order which would obviate the need for more aggressive intervention in the short term. Her current treatment is complicated by relative hypotension. Given her history of diastolic dysfunction overall cardiac output more significantly compromised by atrial fibrillation and associated high ventricular rates. This could accoun t for some of her hemodynamic compromise. I would agree with attempts at volume resuscitation. If her heart rate remains high despite volume resuscitation standard rate control agents can be employed provided her blood pressure allows. Ideally this would involve beta-blockade given her history of portal hypertension and possible variceal bleeding. A nonselective beta-mirta such as propranolol 10 mg 3-4 times daily would be ideal. Diltiazem could be used in the short term with a transition to beta-mirta at a later time. for persistent hypotension an amiodarone infusion could be employed as an alternative. This is clearly not a good long-term solution for the patient given her liver disease, but in the short term it would provide reasonable rate control and has the potential for maintaining sinus rhythm. Lastly, significant hemodynamic compromise in the setting of atrial fibrillation with a rapid ventricular response can be treated with urgent cardioversion. However, in this setting she is unlikely to maintain a sinus rhythm and additional causes for decompensation such as persistent hypovolemia or occult bleeding need to be explored. I think she is a poor candidate for systemic anticoagulation especially in the short term. She was recently discharged after a gastrointestinal hemorrhage of unclear etiology. Presumed to be diverticular in nature. She has a history of gastrointestinal bleeding. Her risk of stroke in the short term is quite low. Do not think there is an urgency for systemic anticoagulation at this point. Provided her clinical course improves a recommendation from her gastroenterologists could be obtained regarding reinitiating Eliquis. 2. Bacterial endocarditis: Patient known to have streptococcal bacteremia. T yesterday did reveal a very small lesion involving the mitral valve. Current antibiotic recommendations and duration of therapy made by the infectious disease service. No significant valve dysfunction associated with the e ndocarditis. 3. Aortic stenosis: Characterized as moderate to severe. I do not believe this would involve significant hemodynamic compromise or symptoms at this point. On DELFIN yesterday there was adequate opening of the valve. Not an acute concern. 4. Elevated troponin: Patient had elevated cardiac biomarkers at the time of presentation. She had mild elevation during previous admissions. The magnitude of the elevation is not suggestive of an acute coronary syndrome and is likely demand related. In the absence of new symptoms I would not pursue any additional ischemic evaluation. History of Present Illness Reason for Consultation: Atrial fibrillation Requesting Physician: Geo Attending Physician: Rain Lopez DO History of Present Illness The patient is a 76-year-old woman with an extensive past medical history to include hypertension, heart failure with preserved ejection fraction, MGUS, cirrhosis, recent diverticular hemorrhage and prior gastrointestinal bleeding, obstructive sleep apnea, severe back pain, acute renal failure and recent bacteremia with associated mitral valve endocarditis. She is also noted to have an element of anemia and thrombocytopenia. It appears that this morning the patient developed atrial fibrillation with rapid ventricular rate. She was a difficult historian who was somnolent. She struggles with chronic back pain and was administered some narcotic earlier this morning. Her current complaint includes right upper quadrant discomfort. Somewhat tender to palpation in that area. No associated nausea or vomiting. She reported 2 large bowel movements earlier today that by the nursing staff report were not dark in nature. She denies chest pain or breathing trouble. She did not report any sense of palpitation. She cannot give much additional history. Allergies Allergy/AdvReac Type Severity Reaction Status Date / Time No Known Allergies Allergy Verified 08/11/22 15:01 Home Medications Medication Instructions Recorded Confirmed Type cholecalciferol (vitamin D3) 50 2,000 unit PO QAM 07/01/18 08/13/22 History mcg (2,000 unit) capsule (Vitamin D3) docusate sodium 100 mg capsule 100 mg PO BID PRN Constipation 07/01/18 08/13/22 History multivitamin 1 tab PO QAM 10/14/19 08/13/22 History vitamin E 268 mg (400 unit) capsule 400 unit PO QAM 08/14/20 08/13/22 History atorvastatin 10 mg tablet 10 mg PO HS #90 tabs 08/12/21 08/13/22 Rx glimepiride 1 mg tablet 1 mg PO BID #180 tabs 08/12/21 08/13/22 Rx coenzyme Q10 200 mg capsule 200 mg PO DAILY 11/01/21 08/13/22 History acetaminophen 325 mg tablet 650 mg PO Q4H PRN fever or pain 03/23/22 08/13/22 Rx #30 tabs famotidine 20 mg tablet 20 mg PO BID PRN Heartburn 04/05/22 08/13/22 History polyethylene glycol 3350 17 gram 17 g PO DAILY PRN Constipation 04/05/22 08/13/22 History oral powder packet (Miralax) levothyroxine 50 mcg tablet 50 mcg PO DAILY #90 tabs 04/12/22 08/13/22 Rx lisinopril 10 mg tablet 10 mg PO DAILY 04/25/22 08/13/22 History metformin 500 mg tablet 500 mg PO DAILY 04/25/22 08/13/22 History sodium chloride 1 gram tablet 1,000 mg PO DAILY #90 tabs 07/11/22 08/13/22 Rx nystatin 100,000 unit/gram topical 1 applic topical TID PRN rash #60 07/20/22 08/13/22 Rx powder grams spironolactone 25 mg tablet 25 mg PO DAILY #30 tabs 07/20/22 08/13/22 Rx magnesium chloride 64 mg 128 mg PO TID #540 tabs 07/27/22 08/13/22 Rx (magnesium chloride) tablet,delayed release ondansetron 4 mg disintegrating 4 mg PO Q6H PRN nausea and 08/01/22 08/13/22 Rx tablet vomiting #14 tabs furosemide 40 mg tablet (Lasix) 40 mg PO DAILY #30 tabs 08/09/22 08/13/22 Rx lactulose 20 gram/30 mL oral 30 g (45 mL) PO BID 30 days #2,700 08/09/22 08/13/22 Rx solution mL Patient History Medical History Acute DVT (deep venous thrombosis) 2019> no known cause > Filter to right groin EMY (acute kidney injury) Anemia 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 no wax bleacher Chronic back pain Chronic deep vein thrombosis (DVT) 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 to alcohol Cough Diabetes NIDDM Diverticular hemorrhage resolved DVT (deep venous thrombosis) Elevated troponin I level Esophageal varices determined by endoscopy Fatty liver Fever GERD (gastroesophageal reflux disease) GI bleed none at present Hepatic encephalopathy Hyperlipemia Hypertension Hypomagnesemia Hypomagnesemia Hyponatremia Lactate blood increase Liver cirrhosis Lower leg edema Migraine Monoclonal gammopathy Obesity Osteoarthritis Presence of IVC filter Proteinuria Pulmonary embolism 2019 > no known cause > Filter to right groin Thrombocytopenia Vertigo Volume overload Vomiting and diarrhea Weakness Wheezing Surgical History History of bilateral breast reduction surgery History of bilateral cataract extraction History of carpal tunnel release of both wrists History of section x3 History of colonoscopy History of dilatation and curettage History of esophagogastroduodenoscopy (EGD) History of laparoscopic cholecystectomy History of lumbar spinal fusion hardware in place History of tonsillectomy History of tooth extraction all teeth History of total left knee replacement (TKR) History of total right knee replacement (TKR) Family History Mother Family history of diabetes mellitus Brother Family history of diabetes mellitus 3 brothers Colorectal cancer Myocardial infarction x 2 Father Myocardial infarction Denies family history of Ovarian cancer Prostate cancer Breast cancer Social History Smoking Status: Former smoker Tobacco Type: Cigarettes Age Started Using Tobacco: 15; Age Quit Using Tobacco: 21; Cigarettes Per Day: stopped 55 years ago; Second Hand Exposure: No; Hx Alcohol Use: No Hx Substance Use: No Preferred Language: French Communication Ability: Effective Visual Impairment: Limited Hearing Ability: Normal Architectural Project Captain Required: No Beliefs That Will Affect Care: None marital status: / Current Living Situation: Family Current Living Situation Comment: lives with son current occupational status: retired How many Children do You have: 3 Feels Safe at Home: Yes Childhood Exposure to Second-Hand Smoke: Yes caffeine: Yes (tea) during the past year weight has: remained stable Dental Care, Regularly: No Physical Activity Frequency: Does not Exercise Seatbelt Use: always Sunscreen Use: No Do you think of yourself as: straight/heterosexual Gender Identity: Female Assistive Devices: Glasses, Raised Toilet Seat and Walker Review of Systems Review of Systems: Unobtainable due to reduced consciousness Physical Exam Physical Exam: She was arousable but quite drowsy. She would occasionally answer questions appropriately but at times seemed confused. HEENT: Sclerae are anicteric. Pupils are equal and reactive to light and accommodation. Extraocular movements were intact. Neuro: Cranial nerves intact Lungs: Lungs are clear to auscultation bilaterally. There are no rales wheezes or rhonchi. She has normal respiratory effort without use of accessory muscles. There is normal pulmonary excursion. Cardiac: The rhythm was irregular. S1 and S2 were normal. Crescendo systolic murmur of variable intensity. The PMI was not markedly displaced on palpation. Abdomen: Mild tenderness in the right upper quadrant and mid epigastric area. Soft. Extremities: Patient has bilateral radial pulses that are equal in intensity. There is no evidence cyanosis or clubbing. Skin: There are no rashes noted on examination today. Results & Data ([facility]) Vital Signs (Past 12 Hours) Vital Signs Temp Pulse Pulse Pulse Resp BP BP 08/20/22 08:59 156 H 166/54 H 08/20/22 08:36 36.6 C 71 18 147/62 H 08/20/22 05:15 36.4 C L 73 14 145/74 H 08/20/22 00:00 16 08/19/22 23:00 68 Pulse Ox O2 Del Method 08/20/22 08:59 08/20/22 08:36 99 Room Air 08/20/22 05:15 98 Room Air 08/20/22 00:00 08/19/22 23:00 Laboratory Results Abnormal Lab Results 08/19/22 08/19/22 08/19/22 12:01 16:54 20:37 WBC RBC Hgb Hct MCV MCH MCHC RDW Std Deviation RDW Coeff of Leah Plt Count MPV Sodium Potassium Chloride Carbon Dioxide Anion Gap BUN Creatinine Est Cr Clr Drug Dosing Est GFR ( Amer) Est GFR (Non-Af Amer) BUN/Creatinine Ratio Glucose POC Glucose 148 H 171 H 112 H Calcium Phosphorus Total Bilirubin AST ALT Alkaline Phosphatase Total Protein 08/20/22 08/20/22 08/20/22 06:54 06:54 07:58 WBC 4.32 L RBC 3.61 L Hgb 9.9 L Hct 31.3 L MCV 86.7 MCH 27.4 MCHC 31.6 L RDW Std Deviation 52.2 H RDW Coeff of Leah 17.2 H Plt Count 74 L MPV 10.9 Sodium 139 Potassium 3.7 Chloride 110 H Carbon Dioxide 21 Anion Gap 8 BUN 56 H Creatinine 2.02 H D Est Cr Clr Drug Dosing 26.2 Est GFR ( Amer) 26.7 Est GFR (Non-Af Amer) 23.0 BUN/Creatinine Ratio 27.7 H Glucose 88 POC Glucose 104 H Calcium 8.4 L Phosphorus 2.8 Total Bilirubin 0.5 AST 23 ALT 8 Alkaline Phosphatase 97 Total Protein 6.3 Diagnostic Findings Limited echocardiogram performed 08/14/2022: Normal LV systolic function. Moderate to severe aortic stenosis with dimensionless index of 0.3. Stage II diastolic dysfunction. Aortic valve velocity of 336 centimeters/second. Transesophageal echocardiogram performed 08/19/2022: Moderate biatrial dilation. Small mobile lesion noted at the coaptation of the mitral valve. ECG Additional Comments: EKG obtained on 08/14/2022 revealed normal sinus rhythm with right bundle branch block and left anterior fascicular block. Poor R-wave progression of precordial leads. PG Care Time/CCT Total # of Minutes Spent Total Time Spent with Patient: Total time spent is greater than 50% in coordination of care (as documented) at patient's floor/unit and/or counseling patient: Coding Level of Care Code 91102 INT INP/OBS CARE 3/75MIN Diagnoses Atrial fibrillation with rapid ventricular response I48.91 Infective endocarditis I33.0 Aortic stenosis I35.0 Elevated troponin R77.8 Diastolic dysfunction I51.89
--- NOTE | 2022-08-20 10:47 | Nephrology Progress Note ---
Date of Service August 20, 2022 Assessment & Plan (1) EMY (acute kidney injury): (2) Volume overload: (3) Lower leg edema: (4) Streptococcal bacteremia: (5) Anemia: Plan Rosalind is a 76 year-old female with morbid obesity, recent GI bleeding, repeated episodes of EMY (b/l cr 1.2 mg/dL), moderate degree proteinuria, hypertension, diabetes, MGUS. She was admitted to hospital with EMY, generalized weakness, bacteremia and volume overload. Renal function continues to improve. IVF being provided. Continue IV fluid to encourage slightly positive fluid balance throughout the day. BP acceptable. Medications appropriately dosed for kidney function. Document strict I/O and repeat metabolic profile tomorrow AM. Admission and Anticipated Discharge Date Admission Date: August 13, 2022 Subjective Rosalind developed atrial fibrillation with RVR this AM when out of bed. She denied chest pain, palpitations, syncope, or presyncope. She was placed back in the bed and was sleeping when I entered her room. When awake, she told me that she felt tired but otherwise well. No shortness of breath. No fevers or chills. Lynn draining clear yellow urine. IV fluid bolus of 500 ml infusing. Review of Systems Review of Systems: All systems reviewed & are unremarkable except as noted in HPI & below Physical Exam Constitutional: WD/WN, vitals as above + ill appearing, + morbidly obese and + frail appearing Eyes: + anicteric sclerae ENMT: Mouth: + dry oral mucous membranes Neck: normal visual inspection Respiratory: no respiratory distress Auscultation: + diminished lung sounds Cardiovascular: Rate/Rhythm: + tachycardic and + irregularly irregular Heart Sounds: normal S1, normal S2 and + murmur Vessels: + JVD Extremities: + edema Musculoskeletal: Extremities: no cyanosis and no clubbing Skin: no rashes Neurologic: Motor/Sensory: no tremor and no asterixis Psychiatric: Orientation: alert and oriented x 3 Results & Data ([facility]) Vital Signs (Past 12 Hours) Vital Signs Temp Pulse Pulse Pulse Resp BP BP 08/20/22 08:59 156 H 166/54 H 08/20/22 08:36 36.6 C 71 18 147/62 H 08/20/22 05:15 36.4 C L 73 14 145/74 H 08/20/22 00:00 16 08/19/22 23:00 68 Pulse Ox O2 Del Method 08/20/22 08:59 08/20/22 08:36 99 Room Air 08/20/22 05:15 98 Room Air 08/20/22 00:00 08/19/22 23:00 Laboratory Results Laboratory Results - last 24 hr 08/19/22 08/19/22 08/19/22 12:01 16:54 20:37 WBC RBC Hgb Hct MCV MCH MCHC RDW Std Deviation RDW Coeff of Leah Plt Count MPV Sodium Potassium Chloride Carbon Dioxide Anion Gap BUN Creatinine Est Cr Clr Drug Dosing Est GFR ( Amer) Est GFR (Non-Af Amer) BUN/Creatinine Ratio Glucose POC Glucose 148 H 171 H 112 H Calcium Phosphorus Total Bilirubin AST ALT Alkaline Phosphatase Total Protein Albumin Globulin Albumin/Globulin Ratio 08/20/22 08/20/22 08/20/22 06:54 06:54 07:58 WBC 4.32 L RBC 3.61 L Hgb 9.9 L Hct 31.3 L MCV 86.7 MCH 27.4 MCHC 31.6 L RDW Std Deviation 52.2 H RDW Coeff of Leah 17.2 H Plt Count 74 L MPV 10.9 Sodium 139 Potassium 3.7 Chloride 110 H Carbon Dioxide 21 Anion Gap 8 BUN 56 H Creatinine 2.02 H D Est Cr Clr Drug Dosing 26.2 Est GFR ( Amer) 26.7 Est GFR (Non-Af Amer) 23.0 BUN/Creatinine Ratio 27.7 H Glucose 88 POC Glucose 104 H Calcium 8.4 L Phosphorus 2.8 Total Bilirubin 0.5 AST 23 ALT 8 Alkaline Phosphatase 97 Total Protein 6.3 Albumin Pending Globulin Pending Albumin/Globulin Ratio Pending PG Care Time/CCT Total # of Minutes Spent Total Time Spent with Patient: Total time spent is greater than 50% in coordination of care (as documented) at patient's floor/unit and/or counseling patient: Coding Level of Care Code 45904 SUB INP/OBS CARE 3/50MIN Diagnoses EMY (acute kidney injury) N17.9 Volume overload E87.70 Lower leg edema R60.0 Streptococcal bacteremia R78.81; B95.5 Anemia D64.9
[2022-08-20] MEDS ORDERED: STAT IV Infusion **Titration per Protocol STA (10:56)
[2022-08-20] MEDS ORDERED: dilTIAZem HCL 125 MG in DEXTROSE 5% 100 ML IV SCH (11:15)
[2022-08-20 11:51] LABS: Albumin Globulin Ratio 0.5 (0.9-2); Globulin 4.3 gm/dl (2.5-4.0)
[2022-08-20] MEDS: ATORVASTATIN 10 MG TAB PO SCH (21:33)
[2022-08-20] MEDS: LIDOCAINE 5% 1 PATCH TD SCH (21:33)
[2022-08-21] MEDS: ONDANSETRON INJ 2 MG/ML 2 ML VIAL IV SCH ×4 (00:24→18:04)
[2022-08-21] MEDS: ACETAMINOPHEN 325 MG TAB PO SCH ×3 (05:55→20:42)
[2022-08-21] MEDS: LEVOTHYROXINE SODIUM 50 MCG TABLET PO SCH (05:55)
[2022-08-21 07:16] LABS: Hematocrit (blood only) 29.3 % (37.0-47.0); Hemoglobin 9.2 g/dl (12.0-16.0); Mean Corpuscular Hgb Conc 31.4 g/dL (32.0-36.0); Mean Corpuscular Volume 85.9 fL (80.0-100.0); Mean Platelet Volume 11.8 fL (9.4-12.4); Platelet Count 108 K/uL (130-400); RDW Coefficient of Variation 17.6 % (11.5-14.5); RDW Standard Deviation 52.8 fL (36.4-46.3); Red Blood Count 3.41 M/uL (4.20-5.40); White Blood Count 4.84 K/ul (4.8-10.8)
[2022-08-21 07:32] LABS: Albumin Level 1.9 gm/dl (3.4-5.0); Bilirubin,Total 0.4 mg/dl (0.2-1.0); Calcium 8.1 mg/dl (8.5-10.1); Potassium 3.6 mmol/L (3.5-5.1)
--- NOTE | 2022-08-21 07:34 | Electrocardiogram Report ---
Test Reason : Blood Pressure : / mmHG Vent. Rate : 156 BPM Atrial Rate : 068 BPM P-R Int : 000 ms QRS Dur : 140 ms QT Int : 356 ms P-R-T Axes : 000 -61 105 degrees QTc Int : 573 ms Atrial fibrillation with rapid ventricular response Right bundle branch block Left anterior fascicular block Bifascicular block Abnormal ECG When compared with ECG of 14-AUG-2022 05:15, Atrial fibrillation has replaced Sinus rhythm Vent. rate has increased BY 74 BPM Inverted T waves have replaced nonspecific T wave abnormality in Anterior leads Confirmed by Wesley Sanders ([id number]) on 08/21/2022 7:34:09 AM Referred By: REFERRED SELF Confirmed By:Yobany Sanders
[2022-08-21 07:38] LABS: Albumin Globulin Ratio 0.5 (0.9-2); BUN Creatinine Ratio 27.4 (10-20); Creatinine Clr Calc Pharmacy 27.2 ml/min; Est GFR (African American) 27.5 ml/min; Est GFR (Non-African American) 23.8 ml/min; Globulin 4.1 gm/dl (2.5-4.0)
[2022-08-21] MEDS: MAGNESIUM CHLORIDE W/CALCIUM 64MG DELAYED REL TAB PO SCH ×3 (08:09→20:39)
[2022-08-21] MEDS: PANTOprazole 40 MG in SYRINGE 0 ML IV SCH ×2 (08:09→20:39)
[2022-08-21] MEDS: cefTRIAXone SODIUM 2,000 MG in DEXTROSE 5% 50 ML IV SCH (08:09)
[2022-08-21] MEDS: LACTULOSE SYRUP 30 GM/45 ML UDP PO SCH ×2 (08:09→14:51)
[2022-08-21] MEDS: FAMOTIDINE 10 MG in SYRINGE 1.5 ML IV SCH (08:09)
--- NOTE | 2022-08-21 11:21 | Nephrology Progress Note ---
Date of Service August 21, 2022 Assessment & Plan (1) EMY (acute kidney injury): (2) Volume overload: (3) Lower leg edema: (4) Streptococcal bacteremia: (5) Anemia: Plan Rosalind is a 76 year-old female with morbid obesity, recent GI bleeding, repeated episodes of EMY (b/l cr 1.2 mg/dL), moderate degree proteinuria, hypertension, diabetes, MGUS. She was admitted to hospital with EMY, generalized weakness, bacteremia and volume overload. Renal function continues to improve. Tolerating PO fluids well. IVF discontinued. Volume status acceptable. BP acceptable. Medications appropriately dosed for kidney function. Lisinopril, furosemide, and spironolactone held. No urgency to restart at this time but medications may be restarted in the future as needed. Document I/O's. Monitor renal function daily. Goal is to maintain relatively even fluid balance. Titrate Lactulose to 3-4 loose bowel movements per day. Rosalind is currently reporting consistently ~7. No additional nephrology recommendations at this time. I will sign-off. Please call with questions or concerns. Admission and Anticipated Discharge Date Admission Date: August 13, 2022 Subjective No acute events overnight. No complaints this AM. No chest pains or palpitations. No shortness of breath. Out of bed and ambulating in room. Frequent loose bowel movements. Would like to try reducing lactulose. Review of Systems Review of Systems: All systems reviewed & are unremarkable except as noted in HPI & below Physical Exam Constitutional: WD/WN, vitals as above + frail appearing Eyes: + anicteric sclerae ENMT: Mouth: + dry oral mucous membranes Neck: normal visual inspection Respiratory: no respiratory distress Auscultation: lungs clear to auscultation bilaterally Cardiovascular: Rate/Rhythm: regular rhythm Heart Sounds: normal S1, normal S2 and + murmur Extremities: + edema Musculoskeletal: Extremities: no cyanosis and no clubbing Skin: no rashes Neurologic: Motor/Sensory: no tremor and no asterixis Psychiatric: Orientation: alert and oriented x 3 Results & Data ([facility]) Vital Signs (Past 12 Hours) Vital Signs Temp Pulse Pulse Resp BP BP Pulse Ox 08/21/22 08:00 61 08/21/22 08:00 08/21/22 07:37 36.4 C L 65 19 128/77 98 08/21/22 04:18 36.6 C 61 18 109/68 96 08/20/22 23:42 36.4 C L 68 16 111/67 99 O2 Del Method 08/21/22 08:00 08/21/22 08:00 Room Air 08/21/22 07:37 Room Air 08/21/22 04:18 Room Air 08/20/22 23:42 Room Air Laboratory Results Laboratory Results - last 24 hr 08/20/22 08/20/22 08/20/22 06:54 11:54 17:02 WBC RBC Hgb Hct MCV MCH MCHC RDW Std Deviation RDW Coeff of Leah Plt Count MPV Sodium Potassium Chloride Carbon Dioxide Anion Gap BUN Creatinine Est Cr Clr Drug Dosing Est GFR ( Amer) Est GFR (Non-Af Amer) BUN/Creatinine Ratio Glucose POC Glucose 214 H 129 H Calcium Total Bilirubin AST ALT Alkaline Phosphatase Total Protein Albumin 2.0 L Globulin 4.3 H Albumin/Globulin Ratio 0.5 L 08/20/22 08/21/22 08/21/22 20:30 06:10 06:10 WBC 4.84 RBC 3.41 L Hgb 9.2 L Hct 29.3 L MCV 85.9 MCH 27.0 MCHC 31.4 L RDW Std Deviation 52.8 H RDW Coeff of Leah 17.6 H Plt Count 108 L MPV 11.8 Sodium 140 Potassium 3.6 Chloride 109 H Carbon Dioxide 26 Anion Gap 5 BUN 54 H Creatinine 1.97 H Est Cr Clr Drug Dosing 27.2 Est GFR ( Amer) 27.5 Est GFR (Non-Af Amer) 23.8 BUN/Creatinine Ratio 27.4 H Glucose 96 POC Glucose 115 H Calcium 8.1 L Total Bilirubin 0.4 AST 22 ALT 11 Alkaline Phosphatase 89 Total Protein 6.0 Albumin 1.9 L Globulin 4.1 H Albumin/Globulin Ratio 0.5 L 08/21/22 07:42 WBC RBC Hgb Hct MCV MCH MCHC RDW Std Deviation RDW Coeff of Leah Plt Count MPV Sodium Potassium Chloride Carbon Dioxide Anion Gap BUN Creatinine Est Cr Clr Drug Dosing Est GFR ( Amer) Est GFR (Non-Af Amer) BUN/Creatinine Ratio Glucose POC Glucose 83 Calcium Total Bilirubin AST ALT Alkaline Phosphatase Total Protein Albumin Globulin Albumin/Globulin Ratio PG Care Time/CCT Total # of Minutes Spent Total Time Spent with Patient: Total time spent is greater than 50% in coordination of care (as documented) at patient's floor/unit and/or counseling patient: Coding Level of Care Code 02944 SUB INP/OBS CARE 350MIN Diagnoses EMY (acute kidney injury) N17.9 Volume overload E87.70 Lower leg edema R60.0 Streptococcal bacteremia R78.81; B95.5 Anemia D64.9
--- NOTE | 2022-08-21 11:37 | Cardiology Progress Note ---
Date of Service August 21, 2022 Assessment & Plan (1) Atrial fibrillation with rapid ventricular response: (2) Infective endocarditis: (3) Aortic stenosis: (4) Elevated troponin: (5) Diastolic dysfunction: Plan 1. Atrial fibrillation: She converted spontaneously yesterday afternoon. Despite high ventricular rates no significant symptoms. Slightly lower blood pressure initially, but improved with volume administration. I would suggest some low-dose propranolol at this time to see how she tolerates beta-blockade in the event that she returns to atrial fibrillation (ie 10mg TID). This may also have some benefit in the setting of her portal hypertension possible prior v ariceal hemorrhage. As noted previously, I do not think she is a good candidate for systemic anticoagulation based on her history of gastrointestinal bleed including a recent event. An alternative that can be explored in the outpatient setting would be left atrial appendage occlusion. 2. Bacterial endocarditis: Patient known to have streptococcal bacteremia. T yesterday did reveal a very small lesion involving the mitral valve. Current antibiotic recommendations and duration of therapy made by the infectious disease service. No significant valve dysfunction associated with the endocardi tis. 3. Aortic stenosis: Characterized as moderate to severe. 4. Elevated troponin: Patient had elevated cardiac biomarkers at the time of presentation. In the absence of new symptoms I would not pursue any additional ischemic evaluation. Admission and Anticipated Discharge Date Admission Date: August 13, 2022 Subjective This morning patient claimed he feeling well. She had continue back discomfort, but no other specific complaints. No breathing difficulty. She reports ambulating with a walker. No sense of palpitation. Chronic dizziness which is not worse. Review of Systems Review of Systems: Per HPI Physical Exam Physical Exam: She was alert and conversant today. Fully oriented. HEENT: Sclerae are anicteric. Pupils are equal and reactive to light and accommodation. Extraocular movements were intact. Neuro: Cranial nerves intact Lungs: Lungs are clear to auscultation bilaterally. There are no rales wheezes or rhonchi. She has normal respiratory effort without use of accessory muscles. There is normal pulmonary excursion. Cardiac: Regular rhythm with soft crescendo systolic murmur. Extremities: Patient has bilateral radial pulses that are equal in intensity. There is no evidence cyanosis or clubbing. Mild bilateral lower extremity edema. Skin: There are no rashes noted on examination today. Results & Data ([facility]) Vital Signs (Past 12 Hours) Vital Signs Temp Pulse Pulse Resp BP BP Pulse Ox 08/21/22 08:00 61 08/21/22 08:00 08/21/22 07:37 36.4 C L 65 19 128/77 98 08/21/22 04:18 36.6 C 61 18 109/68 96 08/20/22 23:42 36.4 C L 68 16 111/67 99 O2 Del Method 08/21/22 08:00 08/21/22 08:00 Room Air 08/21/22 07:37 Room Air 08/21/22 04:18 Room Air 08/20/22 23:42 Room Air Laboratory Results Abnormal Lab Results 08/20/22 08/20/22 08/20/22 06:54 11:54 17:02 WBC RBC Hgb Hct MCV MCH MCHC RDW Std Deviation RDW Coeff of Leah Plt Count MPV Sodium Potassium Chloride Carbon Dioxide Anion Gap BUN Creatinine Est Cr Clr Drug Dosing Est GFR ( Amer) Est GFR (Non-Af Amer) BUN/Creatinine Ratio Glucose POC Glucose 214 H 129 H Calcium Total Bilirubin AST ALT Alkaline Phosphatase Total Protein Albumin 2.0 L Globulin 4.3 H Albumin/Globulin Ratio 0.5 L 08/20/22 08/21/22 08/21/22 20:30 06:10 06:10 WBC 4.84 RBC 3.41 L Hgb 9.2 L Hct 29.3 L MCV 85.9 MCH 27.0 MCHC 31.4 L RDW Std Deviation 52.8 H RDW Coeff of Leah 17.6 H Plt Count 108 L MPV 11.8 Sodium 140 Potassium 3.6 Chloride 109 H Carbon Dioxide 26 Anion Gap 5 BUN 54 H Creatinine 1.97 H Est Cr Clr Drug Dosing 27.2 Est GFR ( Amer) 27.5 Est GFR (Non-Af Amer) 23.8 BUN/Creatinine Ratio 27.4 H Glucose 96 POC Glucose 115 H Calcium 8.1 L Total Bilirubin 0.4 AST 22 ALT 11 Alkaline Phosphatase 89 Total Protein 6.0 Albumin 1.9 L Globulin 4.1 H Albumin/Globulin Ratio 0.5 L 08/21/22 07:42 WBC RBC Hgb Hct MCV MCH MCHC RDW Std Deviation RDW Coeff of Leah Plt Count MPV Sodium Potassium Chloride Carbon Dioxide Anion Gap BUN Creatinine Est Cr Clr Drug Dosing Est GFR ( Amer) Est GFR (Non-Af Amer) BUN/Creatinine Ratio Glucose POC Glucose 83 Calcium Total Bilirubin AST ALT Alkaline Phosphatase Total Protein Albumin Globulin Albumin/Globulin Ratio PG Care Time/CCT Total # of Minutes Spent Total Time Spent with Patient: Total time spent is greater than 50% in coordination of care (as documented) at patient's floor/unit and/or counseling patient: Coding Level of Care Code 68553 SUB INP/OBS CARE 2/35MIN Diagnoses Atrial fibrillation with rapid ventricular response I48.91 Infective endocarditis I33.0 Aortic stenosis I35.0 Elevated troponin R77.8 Diastolic dysfunction I51.89
--- NOTE | 2022-08-21 14:51 | Hospitalist Progress Note ---
Date of Service August 21, 2022 Assessment & Plan (1) Infective endocarditis: (2) Streptococcal bacteremia: (3) Sepsis: (4) Chest pain: Plan: 76 yo F with PMH HTN, chronic DVT with IVC filter, aortic stenosis, HFpEF, MGUS, cirrhosis, DM2, HLD, ROSALES on CPAP, chronic back pain w/ history of lumbar stenosis s/p surgery with multiple recent hospitalizations. 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 Zosyn to Ceftriaxone for [employer] penetration and antibiotic narrowing - TTE without vegetations; ID recommending DELFIN - Will consult ID for help with duration of treatment - 08/16 Blood Culture: NG@48h - XR b/l knees unremarkable - Urinalysis unremarkable - No leukocytosis - Lethargy resolved, AOx4 - CT/MRI spine: Negative - TTE: Negative - DELFIN: Positive for Vegetation on Mitral Valve (Meets diagnostic criteria for Infective Endocarditis) --- ID recommending continued Ceftriaxone at 2g daily for 6 weeks, repeat cultures weekly, will likely require picc line --- Picc line ordered, consent obtained Atrial Fibrillation - Patient had brief episode of PAT this morning which provoked atrial fibrillation, evidenced on AM EKG - Rates averaging 150-160 in AM, received 5 mg Lopressor IV, rates to 120-130 w/ BP drop to 60s/40s - Evaluated at bedside, 500 cc bolus given, BP improved to 80/50s --- Cardiology consulted given infective endocarditis - recommending Propranolol 10 mg TID Back pain - Pt does have chronic back pain, suspect current pain largely due to such history and morbid obesity - She states that this pain is different from her normal back pain, with bacteremia and hardware from spinal fusion, concern for osteomyelitis vs hardware seeding - CT and MRI negative for infectious source --- Back pain improved today --- Tylenol scheduled w/ Dilaudid 0.25 PRN for pain management Acute kidney injury in setting of CKD3 -Cr 2 on admission, baseline around 1 -Suspect secondary to hypovolemia - Creatine up to 2.72 yesterday evening, down to 2.58 this morning with 1L of fluid over the past 24 hours --- Cr improved to 1.97, discontinue diuresis, continue to follow --- Appreciate Nephrology recommendations --- Patient tolerating PO well, advancing diet HFpEF - CXR with significant vascular congestion and pulmonary edema - Echocardiogram 07/2022- EF 55-60% --- Closely follow I&O, continue Lynn Nausea/Abdominal Pain - KUB with Mild gaseous distention of the large and small bowel which may represent ileus, less likely partial obstruction - Is passing gas, no BM today - Tylenol prn for pain - Compezine, Famotidine, Zofran, Pantoprazole - Both pain and nausea improved - 08/16 Increasing abdominal firmness and tenderness, CTAP obtained suggestive of ileus, no obstruction of infection --- Advance diet as tolerated Elevated troponin and chest pain - Initial Troponin 74 repeat 73 - EKG without acute ST change - Chest pain has resolved Cirrhosis - Continue lactulose - Holding spironolactone given low BP, will resume as BP tolerates - No concern for hepatic encephalopathy or liver failure at present - Trend CMP Thrombocytopenia -Plts 98 on admission -Does appear chronic and at baseline, likely due to liver cirrhosis -Trend CBC --- Plts stable, no active bleeding DM2 -Holding home glimepiride, metformin -Hold Lantus 5u BID until she is tolerating better PO intake, SSI ordered --- Lantus 5 units BID, follow sugars HTN -Holding home lisinopril for EMY ROSALES -CPAP nightly HLD -Continue atorvastatin 10 mg Hypothyroidism -Continue levothyroxine Code status: DNR DVT ppx: SCDs, deferring chemical prophylaxis given thrombocytopenia Lines: Picc ordered Isolation: None Dispo: PT/OT ordered, anticipate need for rehab CM: Following (5) CKD (chronic kidney disease): (6) Back pain: (7) Diabetes mellitus with peripheral vascular disease: (8) Pneumonia: Admission and Anticipated Discharge Date Admission Date: August 13, 2022 Supervising Physician Co-Signing Physician Notes 76 year-old female with past medical history pertinent for HFpEF, MGUS, hypertension, aortic stenosis, T2DM, HLD, ROSALES, cirrhosis, and lumbar stenosispresenting with streptococcal bacteremia and diagnosed with infective endocarditis. Patient is feeling well and remains in normal sinus rhythm today. As patient is not a good candidate for anticoagulation per cardiology recommendations, if she returns to atrial fibrillation, beta-mirta approach recommended with propranolol 10 mg 3 times daily. PICC to be placed for completion of 6 weeks antibiotic therapy. PT evaluated patient today and recommends SNF.. Patient examined independently, agree with documented history, physical exam, and plan. Subjective Rosalind is feeling well and is in good spirits today and was out of bed in chair upon arrival. Patient notes her pain continues to improve. She denies any chest pain, dyspnea, pleuritic pain, abdominal pain, headaches or vision changes. Patient continues to move bowels frequently and urinate w/o difficulty through Lynn. She continues to transfer well within room. Patient has remained in NSR. Patient's family was present in the room at 1330, discussed with family at patients request. Review of Systems Review of Systems: As per above Physical Exam Physical Exam: General: pleasant, talkative, obese HEENT: No JVD, dry mucous membranes CV:RRR normal S1/S2, +systolic murmur over LUSB Resp: CTAB, no increased work of breathing Abd: soft, mildly distended, no tenderness to palpation, hypoactive bowel sounds Ext: +1 pitting edema up to knees b/l, UE edema resolved Neuro: AOx4, no gross focal motor deficits Results & Data Results & Data ([facility]) Vital Signs (Past 12 Hours) Vital Signs Temp Pulse Pulse Resp BP Pulse Ox O2 Del Method 08/21/22 12:24 36.4 C L 69 19 114/69 95 Room Air 08/21/22 08:00 61 08/21/22 08:00 Room Air 08/21/22 07:37 36.4 C L 65 19 128/77 98 Room Air 08/21/22 04:18 36.6 C 61 18 109/68 96 Room Air Resident Activity Tracking Resident Involvement: Resident Care Provided Care Provided: Adult Hospital Medicine
[2022-08-21] MEDS: traMADol HCL 50 MG TABLET PO PRN (17:25)
[2022-08-21] MEDS: ATORVASTATIN 10 MG TAB PO SCH (20:38)
[2022-08-21] MEDS: LIDOCAINE 5% 1 PATCH TD SCH (20:38)
[2022-08-21] MEDS: PROPRANOLOL HCL 10 MG TAB PO SCH (20:39)
[2022-08-21] MEDS: LANTUS PER UNIT CHARGE SQ SCH (20:42)
[2022-08-22] MEDS: ONDANSETRON INJ 2 MG/ML 2 ML VIAL IV SCH ×4 (00:25→17:27)
[2022-08-22] MEDS: ACETAMINOPHEN 325 MG TAB PO SCH ×3 (06:29→21:33)
[2022-08-22] MEDS: LEVOTHYROXINE SODIUM 50 MCG TABLET PO SCH (06:29)
[2022-08-22 06:55] LABS: Hemoglobin 8.5 g/dl (12.0-16.0); Mean Corpuscular Hemoglobin 26.6 pg (25.0-34.0); Mean Corpuscular Hgb Conc 31.5 g/dL (32.0-36.0); Mean Corpuscular Volume 84.6 fL (80.0-100.0); Mean Platelet Volume 10.9 fL (9.4-12.4); Platelet Count 119 K/uL (130-400); RDW Coefficient of Variation 17.2 % (11.5-14.5); RDW Standard Deviation 52.2 fL (36.4-46.3); Red Blood Count 3.19 M/uL (4.20-5.40); White Blood Count 4.95 K/ul (4.8-10.8)
[2022-08-22 07:14] LABS: Albumin Level 1.8 gm/dl (3.4-5.0); Bilirubin,Total 0.4 mg/dl (0.2-1.0); Calcium 7.6 mg/dl (8.5-10.1); Potassium 3.8 mmol/L (3.5-5.1)
[2022-08-22 07:20] LABS: Albumin Globulin Ratio 0.5 (0.9-2); BUN Creatinine Ratio 25.1 (10-20); Creatinine Clr Calc Pharmacy 26.9 ml/min; Est GFR (African American) 27.2 ml/min; Est GFR (Non-African American) 23.5 ml/min; Globulin 3.9 gm/dl (2.5-4.0); Total Protein 5.7 gm/dl (6.0-8.3)
--- NOTE | 2022-08-22 07:45 | Hospitalist Progress Note ---
Date of Service August 22, 2022 Assessment & Plan (1) Infective endocarditis: (2) Streptococcal bacteremia: (3) Sepsis: (4) Chest pain: Plan: 76 yo F with PMH HTN, chronic DVT with IVC filter, aortic stenosis, HFpEF, MGUS, cirrhosis, DM2, HLD, ROSALES on CPAP, chronic back pain w/ history of lumbar stenosis s/p surgery with multiple recent hospitalizations. Infective Endocarditis/Strep Bacteremia/Sepsis - Blood cultures growing alpha hemolytic strep, source of infection is unclear - 08/13 Blood Cultures negative after 24 hours - Leukocytosis max 16, Pro-sammy= 28.12, CRP= 18 - Changed Zosyn to Ceftriaxone for [employer] penetration and antibiotic narrowing - TTE without vegetations; ID recommending DELFIN - Will consult ID for help with duration of treatment - 08/16 Blood Culture: NG@48h - XR b/l knees unremarkable - Urinalysis unremarkable - No leukocytosis - Lethargy resolved, AOx4 - CT/MRI spine: Negative - TTE: Negative - DELFIN: Positive for Vegetation on Mitral Valve (Meets diagnostic criteria for Infective Endocarditis) --- ID recommending continued Ceftriaxone at 2g daily for 6 weeks, repeat cultures weekly, will likely require picc line --- Picc line intact Atrial Fibrillation - Patient had brief episode of PAT this morning which provoked atrial fibrillation, evidenced on AM EKG - Rates averaging 150-160 in AM, received 5 mg Lopressor IV, rates to 120-130 w/ BP drop to 60s/40s - Evaluated at bedside, 500 cc bolus given, BP improved to 80/50s --- Tolerating Propranolol 10 mg TID Back pain - Pt does have chronic back pain, suspect current pain largely due to such history and morbid obesity - She states that this pain is different from her normal back pain, with bacteremia and hardware from spinal fusion, concern for osteomyelitis vs hardware seeding - CT and MRI negative for infectious source --- Back pain improved today --- Tylenol scheduled w/ Dilaudid 0.25 PRN for pain management Acute kidney injury in setting of CKD3 - Cr 2 on admission, baseline around 1 - Suspect secondary to hypovolemia - Creatine up to 2.72 yesterday evening, down to 2.58 this morning with 1L of fluid over the past 24 hours - Nephrology signed off --- Cr 1.99, continue to follow --- Patient tolerating PO well, advancing diet --- Maintain even fluid balance HFpEF - CXR with significant vascular congestion and pulmonary edema - Echocardiogram 07/2022- EF 55-60% --- Closely follow I&O, continue Lynn Nausea/Abdominal Pain - KUB with Mild gaseous distention of the large and small bowel which may represent ileus, less likely partial obstruction - Is passing gas, no BM today - Tylenol prn for pain - Compezine, Famotidine, Zofran, Pantoprazole - Both pain and nausea improved - 08/16 Increasing abdominal firmness and tenderness, CTAP obtained suggestive of ileus, no obstruction of infection --- Advance diet as tolerated Elevated troponin and chest pain - Initial Troponin 74 repeat 73 - EKG without acute ST change - Chest pain has resolved Cirrhosis - Continue lactulose - Holding spironolactone given low BP, will resume as BP tolerates - No concern for hepatic encephalopathy or liver failure at present - Trend CMP Thrombocytopenia -Plts 98 on admission -Does appear chronic and at baseline, likely due to liver cirrhosis -Trend CBC --- Plts stable, no active bleeding DM2 -Holding home glimepiride, metformin -Hold Lantus 5u BID until she is tolerating better PO intake, SSI ordered --- Lantus 5 units BID, follow sugars HTN -Holding home lisinopril for EMY ROSALES -CPAP nightly HLD -Continue atorvastatin 10 mg Hypothyroidism -Continue levothyroxine Code status: DNR DVT ppx: SCDs, deferring chemical prophylaxis given thrombocytopenia Lines: Picc ordered Isolation: None Dispo: PT/OT ordered, anticipate need for rehab CM: Will likely require SNF (5) CKD (chronic kidney disease): (6) Back pain: (7) Diabetes mellitus with peripheral vascular disease: (8) Pneumonia: Admission and Anticipated Discharge Date Admission Date: August 13, 2022 Supervising Physician Co-Signing Physician Notes I personally examined the patient and verified all almanzar points of history and exam, discussed case, and agree with decision making with Dr Guardado Feeling pretty good overall. Just some back pain. Awaiting SNF/rehab. Family present. Vitals noted, in general she is awake and alert pleasant no distress. HEENT normocephalic atraumatic mucous membranes moist. Breathing unlabored no accessory muscle use good effort. Sepsis due to gram-positive bacteremia with subsequent endocarditisfortunately improving nicely. Continue ceftriaxone. Work on SNF. Stable to go to SNF when possible. Subjective Patient continues to rest comfortably at bedside, she was eating breakfast upon arrival. She notes that her pain is improving, today she is at 5/10. She denies any chest pain, dyspnea, pleuritic pain, abdominal pain, headaches or vision changes. Patient continues to move bowels frequently and urinate w/o difficulty through Lynn. Patient is transferring within the room. On telemetry, patient is in NSR rates in the 60s. Patient noted that she thought she had blood in her stool this morning, Hemoccult was negative overnight. Review of Systems Review of Systems: As per above Physical Exam Physical Exam: General: pleasant, talkative, obese HEENT: No JVD, dry mucous membranes CV:RRR normal S1/S2, +systolic murmur over LUSB Resp: CTAB, no increased work of breathing Abd: soft, mildly distended, no tenderness to palpation, hypoactive bowel sounds Ext: +1 pitting edema up to knees b/l, UE edema resolved Neuro: AOx4, no gross focal motor deficits Results & Data Results & Data ([facility]) Vital Signs (Past 12 Hours) Vital Signs Temp Pulse Pulse Resp BP Pulse Ox O2 Del Method 08/22/22 02:46 36.6 C 71 18 114/63 96 Room Air 08/21/22 23:36 74 08/21/22 22:53 36.7 C 73 18 144/69 H 95 Room Air 08/21/22 19:46 36.4 C L 68 18 128/69 97 Room Air Resident Activity Tracking Resident Involvement: Resident Care Provided Care Provided: Adult Hospital Medicine
[2022-08-22] MEDS: PROPRANOLOL HCL 10 MG TAB PO SCH ×3 (08:51→20:47)
[2022-08-22] MEDS: PANTOprazole 40 MG in SYRINGE 0 ML IV SCH ×2 (08:51→20:46)
[2022-08-22] MEDS: MAGNESIUM CHLORIDE W/CALCIUM 64MG DELAYED REL TAB PO SCH ×3 (08:51→20:46)
[2022-08-22] MEDS: LACTULOSE SYRUP 30 GM/45 ML UDP PO SCH ×2 (08:52→20:45)
[2022-08-22] MEDS: cefTRIAXone SODIUM 2,000 MG in DEXTROSE 5% 50 ML IV SCH (08:56)
[2022-08-22] MEDS: LANTUS PER UNIT CHARGE SQ SCH ×2 (09:00→21:18)
[2022-08-22] MEDS: FAMOTIDINE 10 MG in SYRINGE 1.5 ML IV SCH (09:18)
[2022-08-22] MEDS: traMADol HCL 50 MG TABLET PO PRN (17:35)
--- NOTE | 2022-08-22 17:38 | Billing Data ---
Date of Service August 22, 2022 Coding Level of Care Code 45943 SUB INP/OBS CARE MIN
[2022-08-22] MEDS: ATORVASTATIN 10 MG TAB PO SCH (20:45)
[2022-08-22] MEDS: LIDOCAINE 5% 1 PATCH TD SCH (20:45)
[2022-08-23] MEDS: ONDANSETRON INJ 2 MG/ML 2 ML VIAL IV SCH ×2 (00:04→06:20)
[2022-08-23] MEDS: LEVOTHYROXINE SODIUM 50 MCG TABLET PO SCH (06:20)
[2022-08-23] MEDS: ACETAMINOPHEN 325 MG TAB PO SCH ×3 (06:20→21:20)
[2022-08-23 06:53] LABS: Albumin Globulin Ratio 0.5 (0.9-2); Albumin Level 1.9 gm/dl (3.4-5.0); BUN Creatinine Ratio 28.5 (10-20); Bilirubin,Total 0.4 mg/dl (0.2-1.0); Calcium 7.7 mg/dl (8.5-10.1); Creatinine Clr Calc Pharmacy 30.7 ml/min; Est GFR (African American) 30.9 ml/min; Est GFR (Non-African American) 26.7 ml/min; Potassium 4.3 mmol/L (3.5-5.1); Total Protein 5.9 gm/dl (6.0-8.3)
[2022-08-23 07:00] LABS: Hematocrit (blood only) 27.6 % (37.0-47.0); Hemoglobin 8.7 g/dl (12.0-16.0); Mean Corpuscular Hemoglobin 27.3 pg (25.0-34.0); Mean Corpuscular Hgb Conc 31.5 g/dL (32.0-36.0); Mean Corpuscular Volume 86.5 fL (80.0-100.0); Mean Platelet Volume 10.5 fL (9.4-12.4); Platelet Count 127 K/uL (130-400); RDW Coefficient of Variation 17.4 % (11.5-14.5); RDW Standard Deviation 54.2 fL (36.4-46.3); Red Blood Count 3.19 M/uL (4.20-5.40); White Blood Count 6.14 K/ul (4.8-10.8)
[2022-08-23] MEDS: MAGNESIUM CHLORIDE W/CALCIUM 64MG DELAYED REL TAB PO SCH ×3 (08:19→21:20)
[2022-08-23] MEDS: PROPRANOLOL HCL 10 MG TAB PO SCH ×3 (08:19→21:20)
[2022-08-23] MEDS: LANTUS PER UNIT CHARGE SQ SCH ×2 (08:20→21:20)
[2022-08-23] MEDS: LACTULOSE SYRUP 30 GM/45 ML UDP PO SCH ×2 (08:20→21:14)
[2022-08-23] MEDS: PANTOprazole 40 MG in SYRINGE 0 ML IV SCH ×2 (08:22→21:21)
[2022-08-23] MEDS: FAMOTIDINE 10 MG in SYRINGE 1.5 ML IV SCH (08:22)
[2022-08-23] MEDS: cefTRIAXone SODIUM 2,000 MG in DEXTROSE 5% 50 ML IV SCH (08:31)
--- NOTE | 2022-08-23 10:29 | Hospitalist Progress Note ---
Date of Service August 23, 2022 Assessment & Plan (1) Infective endocarditis: (2) Streptococcal bacteremia: (3) Sepsis: (4) Chest pain: Plan: 76 yo F with PMH HTN, chronic DVT with IVC filter, aortic stenosis, HFpEF, MGUS, cirrhosis, DM2, HLD, ROSALES on CPAP, chronic back pain w/ history of lumbar stenosis s/p surgery with multiple recent hospitalizations. Infective Endocarditis/Strep Bacteremia/Sepsis - Blood cultures growing alpha hemolytic strep, source of infection is unclear - 08/13 Blood Cultures negative after 24 hours - Leukocytosis max 16, Pro-sammy= 28.12, CRP= 18 - Changed Zosyn to Ceftriaxone for [employer] penetration and antibiotic narrowing - TTE without vegetations; ID recommending DELFIN - Will consult ID for help with duration of treatment - 08/16 Blood Culture: NG@48h - XR b/l knees unremarkable - Urinalysis unremarkable - No leukocytosis - Lethargy resolved, AOx4 - CT/MRI spine: Negative - TTE: Negative - DELFIN: Positive for Vegetation on Mitral Valve (Meets diagnostic criteria for Infective Endocarditis) --- Continue Ceftriaxone at 2g daily for 6 weeks, repeat cultures weekly, pic line intact --- Remove Martino Atrial Fibrillation - Patient had brief episode of PAT this morning which provoked atrial fibrillation, evidenced on AM EKG - Rates averaging 150-160 in AM, received 5 mg Lopressor IV, rates to 120-130 w/ BP drop to 60s/40s - Evaluated at bedside, 500 cc bolus given, BP improved to 80/50s --- Tolerating Propranolol 10 mg TID Back pain - Pt does have chronic back pain, suspect current pain largely due to such history and morbid obesity - She states that this pain is different from her normal back pain, with bacteremia and hardware from spinal fusion, concern for osteomyelitis vs h ardware seeding - CT and MRI negative for infectious source --- Back pain improved, rib pain resolved w/ heating pad --- Tylenol scheduled w/ Dilaudid 0.25 PRN for pain management Acute kidney injury in setting of CKD3 - Cr 2 on admission, baseline around 1 - Suspect secondary to hypovolemia - Creatine up to 2.72 yesterday evening, down to 2.58 this morning with 1L of fluid over the past 24 hours - Nephrology signed off --- Cr 1.79, continue to follow --- Patient tolerating PO well --- Maintain even fluid balance HFpEF - CXR with significant vascular congestion and pulmonary edema - Echocardiogram 07/2022- EF 55-60% --- Closely follow I&O Nausea/Abdominal Pain - KUB with Mild gaseous distention of the large and small bowel which may represent ileus, less likely partial obstruction - Is passing gas, no BM today - Tylenol prn for pain - Compezine, Famotidine, Zofran, Pantoprazole - Both pain and nausea improved - 08/16 Increasing abdominal firmness and tenderness, CTAP obtained suggestive of ileus, no obstruction of infection --- Continue diet, Zofran changed to PRN Elevated troponin and chest pain - Initial Troponin 74 repeat 73 - EKG without acute ST change - Chest pain has resolved Cirrhosis - Continue lactulose - Holding spironolactone given low BP, will resume as BP tolerates - No concern for hepatic encephalopathy or liver failure at present - Trend CMP Thrombocytopenia -Plts 98 on admission -Does appear chronic and at baseline, likely due to liver cirrhosis -Trend CBC --- Plts stable, no active bleeding DM2 -Holding home glimepiride, metformin -Hold Lantus 5u BID until she is tolerating better PO intake, SSI ordered --- Lantus 5 units BID, follow sugars HTN -Holding home lisinopril for EMY ROSALES -CPAP nightly HLD -Continue atorvastatin 10 mg Hypothyroidism -Continue levothyroxine Code status: DNR DVT ppx: SCDs, deferring chemical prophylaxis given thrombocytopenia Lines: Picc Isolation: None Dispo: PT/OT rec SNF CM: Pend SNF placement (5) CKD (chronic kidney disease): (6) Back pain: (7) Diabetes mellitus with peripheral vascular disease: (8) Pneumonia: Admission and Anticipated Discharge Date Admission Date: August 13, 2022 Supervising Physician Co-Signing Physician Notes I personally examined the patient and verified all almanzar points of history and exa m, discussed case, and agree with decision making with Dr Guardado for SNF . voiding well w martino out. Vitals noted, in general she is awake and alert pleasant no distress. HEENT normocephalic atraumatic mucous membranes moist. Breathing unlabored no accessory muscle use good effort. Sepsis due to gram-positive bacteremia with subsequent endocarditisfortunately improving nicely. Continue ceftriaxone. for SNF . continue current care until then. Subjective 08/23: Patient upright enjoying breakfast in bedside chair on arrival. She notes well controlled pain and appreciation for the heating pad.. She denies any chest pain, dyspnea, pleuritic pain, abdominal pain, headaches or vision changes. She continues to stool appropriately and urinate via Martino w/o discomfort. Review of Systems Review of Systems: As per above Physical Exam Physical Exam: General: pleasant, talkative, obese HEENT: No JVD, dry mucous membranes CV:RRR normal S1/S2, +systolic murmur over LUSB Resp: CTAB, no increased work of breathing Abd: soft, mildly distended, no tenderness to palpation, hypoactive bowel sounds Ext: +1 pitting edema up to knees b/l, UE edema resolved Neuro: AOx4, no gross focal motor deficits Results & Data Results & Data ([facility]) Vital Signs (Past 12 Hours) Vital Signs Temp Pulse Pulse Resp BP Pulse Ox O2 Del Method 08/23/22 08:00 72 08/23/22 08:00 Room Air 08/23/22 08:10 36.5 C 62 16 127/77 96 Room Air 08/23/22 03:17 36.6 C 65 18 113/67 97 Room Air 08/22/22 22:33 36.6 C 62 17 96/62 L 99 Room Air Resident Activity Tracking Resident Involvement: Resident Care Provided Care Provided: Adult Hospital Medicine
[2022-08-23] MEDS ORDERED: ONDANSETRON INJ 2 MG/ML 2 ML VIAL IV PRN (10:48)
--- NOTE | 2022-08-23 12:58 | Infectious Disease Progress Nt ---
Date of Service August 23, 2022 Assessment & Plan (1) Streptococcal bacteremia: (2) Leukocytosis: (3) Sepsis: (4) EMY (acute kidney injury): (5) Chronic back pain: Plan This is a 76-year-old female with past medical history of hypertension, chronic deep vein thrombosis of RLE sp IVC filter, chronic back pain sp spinal fusion, mod-severe aortic stenosis, monoclonal gammopathy of unknown significance, nonalcoholic fatty liver with cirrhosis, diabetes, ROSALES who was recently admitted 08/04/22-08/09/22 for hepatic encephalopathy and EMY. Prior to this, she was admitted 07/28/21-08/01/21 for diverticular bleed. She presents a few days after last discharge on 08/13 with increased fatigue and marked increase in back pain. She denies any steroid injections of spine or recent back trauma or falls. In the Ed she is afebrile and hemodynamically stable. Admission labs noted for WBC 18.50 , creatinine 2.039, platelets 98, crp 18.21, procalcitonin 28.12, lactate 4.9, troponin 74, urine cx + gamma strep and lactobacillus and BC + for 3/4 bottles for Group g beta streptococcus. Cxr shows cardiomegaly and mild pulmonary edema. An abdominal xray shows An IVC filter ,posterior fixation hardware and gaseous distention of the large bowel and small intestine. She was started on Zosyn and is now on Ceftriaxone. A TTE shows evidence of moderate Aortic stenosis. There is no valve vegetation noted. She was pending MRI spine. On my interview , she is awake and alert and complains of severe back pain ( more than her baseline) and right knee pain and swelling. She denies fever, chills, sweats, skin rash, change in urine or bowel habits, ab pain, n/v, sob, chest pain. Id consulted for evaluation of Group G streptococcus bacteremia. Micro: Bc 08/13 ( 1:) 3/4 bottles group G strep Bc 08/13 1751) NGTD UC 08/13 Gamma strep not enterococcus, Lactobacillus species BC 08/16 NGTD Blood Culture AerobicFinal 08/15/22-1017 Organism 1 Group G Beta Strep Sens Sensitivities to Follow Phoned positive Blood Culture Gram Stain report to Jessica Sims on 08/13/22 at 1328 by [id number]. [place] [id number]. Grp.G Strp RX M.I.C. --- --------- Ampicillin S<=0.06 Azithromycin S<=0.25 Cefepime S<=0.25 Cefotaxime S<=0.25 Ceftriaxone S<=0.25 ChloramphenicolS2 Clindamycin S<=0.06 Erythromycin S<=0.06 Penicillin S<=0.03 Vancomycin S0.5 Abx: zosyn 08/13-08/15 ceftriaxone 08/15- ongoing: flagyl 08/18- ongoing 1. Group G Beta hemolytic streptococcus bacteremia Likely secondary to Infective Endocarditis 2. 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 Acute on chronic back pain-improving 4. Spinal fusion with hardware 5. History of B/L TKA 6. EMY 7. Chronic thrombocytopenia 8.Ileus on imaging Discussion. She presents with acute on chronic back in setting of Group G streptococcus bacteremia. She is also noted to have BL knee edema/pain, has a history of BL TKA and moderate Aortic stenosis on TTE with corresponding murmur on exam without evidence of valve vegetation ( but limited echo study).Pursued Possible sources of her bacteremia including Spinal infection, endocarditis or prosthetic joint infection/septic arthritis given initial exam findings, presence of hardware and valve abnormalities. It is noted that she had a diverticular bleed earlier in the month, but none currently. She has no evidence of GI infection She is noted to have gamma streptococcus on urine culture but no urinary symptoms. To date Ct thoracic and lumbar spine w.o contrast shows no findings suggestive of osteo or discitis, intact l4- s1 hardware, long standing degenerative changes at thoracic spine. A limited MRI was done as she was unable to tolerate that showed no acute fractures or enhancements, no osteo/discitis . BL knee xrays shows unremarkable appearing bilateral knee total joint arthroplasties.She has ongoing diarrhea but is on lactulose. Nauseaimproved. WBc normalized but now trending down to 4.28. DELFIN completed 08/19 shows a sclerotic aortic valve with small lesion at the coaptatioan of the right and anon coronary cusps AND a red small mobile lesion 1-2mm at coaptation of posterior and anterior leaflet of the MItral valve, c/w vegetation. ESR elevated at 89. Procal has improved to 7.04. Cr slowly improving . Cardiology reviewed echo per d/w team Recommendations: Continue ceftriaxone 2 g iv q 24hours, anticipate 6 weeks from sterile BC . Tentative end date 09/27/22 Follow up Repeat BC from 08/16 to ensure blood culture clearance Management of ileus per primary team Can place PICC On Abx , obtain weekly CBC with diff, BMP, LFT, ESR, CRP. Repeat Bc 1 week post completion of abx Recommend a repeat 2DE at end of antibiotic therapy Given patient will be on 6 weeks of antibiotics she will benefit with establishing care with outpatient community ID provider Melita Meade MD Dept of Infectious Diseases [facility], ID Connect Admission and Anticipated Discharge Date Admission Date: August 13, 2022 Subjective This patient recommendation is based on a telemedicine consult request which was completed asynchronously through chart review and information provided by the primary physician. The patient was not seen or examined today. The evaluation is consultative in nature and all patient care and treatment decisions can either be accepted or rejected by the patient's primary hospital-based treating physician using their own independent medical judgment for their patient. Asynchronous visit, 35 minutes charting, reviewing microbiology and discussion with primary team Time Spent Reviewing Chart: 31+ minutes Results & Data ([facility]) Vital Signs (Past 12 Hours) Vital Signs Temp Pulse Pulse Resp BP Pulse Ox O2 Del Method 08/23/22 10:54 36.5 C 61 18 116/60 100 Room Air 08/23/22 08:00 72 08/23/22 08:00 Room Air 08/23/22 08:10 36.5 C 62 16 127/77 96 Room Air 08/23/22 03:17 36.6 C 65 18 113/67 97 Room Air Laboratory Results Laboratory Results - last 48 hr 08/21/22 08/21/22 08/21/22 17:28 20:06 21:30 WBC RBC Hgb Hct MCV MCH MCHC RDW Std Deviation RDW Coeff of Leah Plt Count MPV Sodium Potassium Chloride Carbon Dioxide Anion Gap BUN Creatinine Est Cr Clr Drug Dosing Est GFR ( Amer) Est GFR (Non-Af Amer) BUN/Creatinine Ratio Glucose POC Glucose 195 H 140 H Calcium Total Bilirubin AST ALT Alkaline Phosphatase Total Protein Albumin Globulin Albumin/Globulin Ratio Stool Occult Bld Scrn Negative 08/22/22 08/22/22 08/22/22 05:51 05:51 07:44 WBC 4.95 RBC 3.19 L Hgb 8.5 L Hct 27.0 L MCV 84.6 MCH 26.6 MCHC 31.5 L RDW Std Deviation 52.2 H RDW Coeff of Leah 17.2 H Plt Count 119 L MPV 10.9 Sodium 136 Potassium 3.8 Chloride 107 Carbon Dioxide 27 Anion Gap 2 L BUN 50 H Creatinine 1.99 H Est Cr Clr Drug Dosing 26.9 Est GFR ( Amer) 27.2 Est GFR (Non-Af Amer) 23.5 BUN/Creatinine Ratio 25.1 H Glucose 129 H POC Glucose 132 H Calcium 7.6 L Total Bilirubin 0.4 AST 19 ALT 10 Alkaline Phosphatase 80 Total Protein 5.7 L Albumin 1.8 L Globulin 3.9 Albumin/Globulin Ratio 0.5 L Stool Occult Bld Scrn 08/22/22 08/22/22 08/22/22 09:00 11:54 16:47 WBC RBC Hgb Hct MCV MCH MCHC RDW Std Deviation RDW Coeff of Leah Plt Count MPV Sodium Potassium Chloride Carbon Dioxide Anion Gap BUN Creatinine Est Cr Clr Drug Dosing Est GFR ( Amer) Est GFR (Non-Af Amer) BUN/Creatinine Ratio Glucose POC Glucose 220 H 121 H Calcium Total Bilirubin AST ALT Alkaline Phosphatase Total Protein Albumin Globulin Albumin/Globulin Ratio Stool Occult Bld Scrn Positive A 08/22/22 08/23/22 08/23/22 20:58 06:15 06:15 WBC 6.14 RBC 3.19 L Hgb 8.7 L Hct 27.6 L MCV 86.5 MCH 27.3 MCHC 31.5 L RDW Std Deviation 54.2 H RDW Coeff of Leah 17.4 H Plt Count 127 L MPV 10.5 Sodium 133 L Potassium 4.3 Chloride 106 Carbon Dioxide 25 Anion Gap 2 L BUN 51 H Creatinine 1.79 H Est Cr Clr Drug Dosing 30.7 Est GFR ( Amer) 30.9 Est GFR (Non-Af Amer) 26.7 BUN/Creatinine Ratio 28.5 H Glucose 123 H POC Glucose 208 H Calcium 7.7 L Total Bilirubin 0.4 AST 18 ALT 9 Alkaline Phosphatase 75 Total Protein 5.9 L Albumin 1.9 L Globulin 4.0 Albumin/Globulin Ratio 0.5 L Stool Occult Bld Scrn 08/23/22 08/23/22 07:58 12:09 WBC RBC Hgb Hct MCV MCH MCHC RDW Std Deviation RDW Coeff of Leah Plt Count MPV Sodium Potassium Chloride Carbon Dioxide Anion Gap BUN Creatinine Est Cr Clr Drug Dosing Est GFR ( Amer) Est GFR (Non-Af Amer) BUN/Creatinine Ratio Glucose POC Glucose 111 H 232 H Calcium Total Bilirubin AST ALT Alkaline Phosphatase Total Protein Albumin Globulin Albumin/Globulin Ratio Stool Occult Bld Scrn Microbiology 08/16/22 08:06 Blood Aerobic Blood Culture - Final No growth in Aerobic bottle after 5 days. 08/16/22 08:06 Blood Anaerobic Blood Culture - Final 08/16/22 07:59 Blood Aerobic Blood Culture - Final No growth in Aerobic bottle after 5 days. 08/16/22 07:59 Blood Anaerobic Blood Culture - Final No growth in Anaerobic bottle after 5 days. 08/13/22 17:51 Blood Aerobic Blood Culture - Final No growth in Aerobic bottle after 5 days. 08/13/22 17:51 Blood Anaerobic Blood Culture - Final No growth in Anaerobic bottle after 5 days. 08/13/22 17:51 Blood Aerobic Blood Culture - Final No growth in Aerobic bottle after 5 days. 08/13/22 17:51 Blood Anaerobic Blood Culture - Final No growth in Anaerobic bottle after 5 days. 08/13/22 05:10 Urine,Indwelling Cath Urine Culture - Final Gamma strep not enterococcus Lactobacillus species 08/13/22 01:22 Blood Aerobic Blood Culture - Final Group G Beta Strep 08/13/22 01:22 Blood Anaerobic Blood Culture - Final 08/13/22 01:22 Blood Aerobic Blood Culture - Final Group G Beta Strep 08/13/22 01:22 Blood Anaerobic Blood Culture - Final Group G Beta Strep
--- NOTE | 2022-08-23 19:18 | Billing Data ---
Date of Service August 23, 2022 Coding Level of Care Code 69560 SUB INP/OBS CARE
[2022-08-23] MEDS: LIDOCAINE 5% 1 PATCH TD SCH (21:20)
[2022-08-23] MEDS: ATORVASTATIN 10 MG TAB PO SCH (21:22)
[2022-08-24] MEDS: ACETAMINOPHEN 325 MG TAB PO SCH ×3 (06:06→22:19)
[2022-08-24] MEDS: LEVOTHYROXINE SODIUM 50 MCG TABLET PO SCH (06:06)
--- NOTE | 2022-08-24 07:56 | Hospitalist Progress Note ---
Date of Service August 24, 2022 Assessment & Plan (1) Infective endocarditis: (2) Streptococcal bacteremia: (3) Sepsis: (4) Chest pain: Plan: 76 yo F with PMH HTN, chronic DVT with IVC filter, aortic stenosis, HFpEF, MGUS, cirrhosis, DM2, HLD, ROSALES on CPAP, chronic back pain w/ history of lumbar stenosis s/p surgery with multiple recent hospitalizations. Infective Endocarditis/Strep Bacteremia/Sepsis - Blood cultures growing alpha hemolytic strep, source of infection is unclear - 08/13 Blood Cultures negative after 24 hours - Leukocytosis max 16, Pro-sammy= 28.12, CRP= 18 - Changed Zosyn to Ceftriaxone for [employer] penetration and antibiotic narrowing - TTE without vegetations; ID recommending DELFIN - Will consult ID for help with duration of treatment - 08/16 Blood Culture: NG@48h - XR b/l knees unremarkable - Urinalysis unremarkable - No leukocytosis - Lethargy resolved, AOx4 - CT/MRI spine: Negative - TTE: Negative - DELFIN: Positive for Vegetation on Mitral Valve (Meets diagnostic criteria for Infective Endocarditis) --- Continue Ceftriaxone at 2g daily for 6 weeks, repeat cultures weekly, pic line intact --- Lynn removed, voiding independently Atrial Fibrillation - Patient had brief episode of PAT this morning which provoked atrial fibrillation, evidenced on AM EKG - Rates averaging 150-160 in AM, received 5 mg Lopressor IV, rates to 120-130 w/ BP drop to 60s/40s - Evaluated at bedside, 500 cc bolus given, BP improved to 80/50s --- Tolerating Propranolol 10 mg TID Back pain - Pt does have chronic back pain, suspect current pain largely due to such history and morbid obesity - She states that this pain is different from her normal back pain, with bacteremia and hardware from spinal fusion, concern for osteomyelitis vs hardware seeding - CT and MRI negative for infectious source --- Back pain improved to 2/10, rib pain resolved w/ heating pad --- Tylenol scheduled w/ Dilaudid 0.25 PRN for pain management Acute kidney injury in setting of CKD3 - Cr 2 on admission, baseline around 1 - Suspect secondary to hypovolemia - Creatine up to 2.72 yesterday evening, down to 2.58 this morning with 1L of fluid over the past 24 hours - Nephrology signed off --- Cr 1.96 (elevated), continue to follow --- Patient tolerating PO well --- Maintain even fluid balance HFpEF - CXR with significant vascular congestion and pulmonary edema - Echocardiogram 07/2022- EF 55-60% --- Closely follow I&O --- Suspect increased edema is depended as patient has been sitting in bedside chair, recommended elevation of legs and compression wraps, will follow Nausea/Abdominal Pain - KUB with Mild gaseous distention of the large and small bowel which may represent ileus, less likely partial obstruction - Is passing gas, no BM today - Tylenol prn for pain - Compezine, Famotidine, Zofran, Pantoprazole - Both pain and nausea improved - 08/16 Increasing abdominal firmness and tenderness, CTAP obtained suggestive of ileus, no obstruction of infection --- Continue diet, Zofran changed to PRN Elevated troponin and chest pain - Initial Troponin 74 repeat 73 - EKG without acute ST change - Chest pain has resolved Cirrhosis - Continue lactulose - Holding spironolactone given low BP, will resume as BP tolerates - No concern for hepatic encephalopathy or liver failure at present - Trend CMP Thrombocytopenia -Plts 98 on admission -Does appear chronic and at baseline, likely due to liver cirrhosis -Trend CBC --- Plts stable, no active bleeding DM2 -Holding home glimepiride, metformin -Hold Lantus 5u BID until she is tolerating better PO intake, SSI ordered --- Lantus 5 units BID, follow sugars HTN -Holding home lisinopril for EMY ROSALES -CPAP nightly HLD -Continue atorvastatin 10 mg Hypothyroidism -Continue levothyroxine Code status: DNR DVT ppx: SCDs, deferring chemical prophylaxis given thrombocytopenia Lines: Picc Isolation: None Dispo: PT/OT rec SNF CM: Pend SNF placement (5) CKD (chronic kidney disease): (6) Back pain: (7) Diabetes mellitus with peripheral vascular disease: (8) Pneumonia: Admission and Anticipated Discharge Date Admission Date: August 13, 2022 Supervising Physician Co-Signing Physician Notes I personally examined the patient and verified all almanzar points of history and exam, discussed case, and agree with decision making with Dr Guardado for SNF . No complaints today Vitals noted, in general she is awake and alert pleasant no distress. HEENT normocephalic atraumatic mucous membranes moist. Breathing unlabored no accessory muscle use good effort. Sepsis due to gram-positive bacteremia with subsequent endocarditisfortunately improving nicely. Continue ceftriaxone. for SNF tomorrow. continue current care until then. Subjective 08/24: Patient enjoying a phone conversation with her brother upon arrival to her room, asked to join call. Discussed progress and plan with patient and brother. Patient's pain continues to improve, currently 09/02. She denies any chest pain, dyspnea, pleuritic pain, abdominal discomfort or urinary discomfort. She notes that her legs were swollen yesterday, but that the compression bandages that the nusres placed were very helpful. Review of Systems Review of Systems: As per above Physical Exam Physical Exam: General: pleasant, talkative, obese HEENT: No JVD, dry mucous membranes CV:RRR normal S1/S2, +systolic murmur over LUSB Resp: CTAB, no increased work of breathing Abd: soft, mildly distended, no tenderness to palpation, hypoactive bowel sounds Ext: 2+ pitting edema of LE, compression bandages intact, UE edema resolved Neuro: AOx4, no gross focal motor deficits Results & Data Results & Data ([facility]) Vital Signs (Past 12 Hours) Vital Signs Temp Pulse Resp BP Pulse Ox O2 Del Method 08/23/22 21:00 Room Air 08/23/22 20:42 36.8 C 63 16 118/57 L 99 Room Air Resident Activity Tracking Resident Involvement: Resident Care Provided Care Provided: Adult Hospital Medicine
[2022-08-24 08:27] LABS: Hematocrit (blood only) 26.9 % (37.0-47.0); Hemoglobin 8.4 g/dl (12.0-16.0); Mean Corpuscular Hemoglobin 26.9 pg (25.0-34.0); Mean Corpuscular Hgb Conc 31.2 g/dL (32.0-36.0); Mean Corpuscular Volume 86.2 fL (80.0-100.0); Mean Platelet Volume 10.6 fL (9.4-12.4); Platelet Count 145 K/uL (130-400); RDW Coefficient of Variation 17.5 % (11.5-14.5); RDW Standard Deviation 54.1 fL (36.4-46.3); Red Blood Count 3.12 M/uL (4.20-5.40); White Blood Count 4.92 K/ul (4.8-10.8)
[2022-08-24] MEDS: PANTOprazole 40 MG in SYRINGE 0 ML IV SCH (08:59)
[2022-08-24] MEDS: PROPRANOLOL HCL 10 MG TAB PO SCH ×3 (08:59→21:55)
[2022-08-24] MEDS: LANTUS PER UNIT CHARGE SQ SCH ×2 (09:00→21:55)
[2022-08-24] MEDS: MAGNESIUM CHLORIDE W/CALCIUM 64MG DELAYED REL TAB PO SCH ×3 (09:00→21:55)
[2022-08-24] MEDS: LACTULOSE SYRUP 30 GM/45 ML UDP PO SCH ×2 (09:07→21:55)
[2022-08-24 09:23] LABS: Albumin Globulin Ratio 0.5 (0.9-2); Albumin Level 1.9 gm/dl (3.4-5.0); BUN Creatinine Ratio 28.1 (10-20); Bilirubin,Total 0.4 mg/dl (0.2-1.0); C Reactive Protein 4.04 mg/dl (0-0.5); Calcium 7.8 mg/dl (8.5-10.1); Est GFR (African American) 27.7 ml/min; Est GFR (Non-African American) 23.9 ml/min; Globulin 4.1 gm/dl (2.5-4.0); Potassium 4.5 mmol/L (3.5-5.1)
[2022-08-24] MEDS: cefTRIAXone SODIUM 2,000 MG in DEXTROSE 5% 50 ML IV SCH (10:14)
[2022-08-24] MEDS: FAMOTIDINE 10 MG in SYRINGE 1.5 ML IV SCH (10:14)
--- NOTE | 2022-08-24 18:50 | Billing Data ---
Date of Service August 24, 2022 Coding Level of Care Code 61875 SUB INP/OBS CARE
[2022-08-24] MEDS: FAMOTIDINE 20 MG TAB PO SCH (21:55)
[2022-08-24] MEDS: LIDOCAINE 5% 1 PATCH TD SCH (21:55)
[2022-08-24] MEDS: ATORVASTATIN 10 MG TAB PO SCH (21:55)
[2022-08-25] MEDS: traMADol HCL 50 MG TABLET PO PRN (05:33)
[2022-08-25] MEDS: ACETAMINOPHEN 325 MG TAB PO SCH ×2 (05:33→14:04)
[2022-08-25] MEDS: LEVOTHYROXINE SODIUM 50 MCG TABLET PO SCH (05:33)
[2022-08-25] MEDS: MAGNESIUM CHLORIDE W/CALCIUM 64MG DELAYED REL TAB PO SCH ×2 (07:59→14:00)
[2022-08-25] MEDS: PROPRANOLOL HCL 10 MG TAB PO SCH ×2 (07:59→14:00)
[2022-08-25] MEDS: LACTULOSE SYRUP 30 GM/45 ML UDP PO SCH (08:00)
[2022-08-25] MEDS: FAMOTIDINE 20 MG TAB PO SCH (08:00)
[2022-08-25] MEDS: cefTRIAXone SODIUM 2,000 MG in DEXTROSE 5% 50 ML IV SCH (08:07)
--- NOTE | 2022-08-25 08:23 | Discharge Summary ---
Date of Service August 25, 2022 Admission HPI Per Admitting Provider 76 yo F with PMH HTN, chronic DVT with IVC filter, aortic stenosis, HFpEF, MGUS, cirrhosis, DM2, HLD, ROSALES on CPAP, chronic back pain w/ history of lumbar stenosis s/p surgery with multiple recent hospitalizations admitted for chest pain. Pt admitted at [facility] [place] from 07/28-08/01 for LGIB attributed to diverticular bleed. Her Eliquis was discontinued on discharge. She was discharged on Lasix 40 mg daily due to concern for hypervolemia with resulting echocardiogram with EF 55-60%. She returned to [facility] [place] for hospitalization from 08/04 - 08/09 for metabolic encephalopathy, EMY. Pt arrived to ED hemodynamically stable, was started on 2L NC O2. ED labs significant for WBC 18.5, Hgb 10.3, Plts 98, Cr 2 (baseline around 1), lactate 3.5, troponin 74, EKG with NSR and RBBB and no ST change, CXR with cardiomegaly, vascular congestion and pulmonary edema. She was treated with fentanyl for pain and Zosyn empirically. Pt reports fatigue has continued since discharge. This afternoon, she began to experience severe 8/10, sharp, midsternal chest pain associated with increased dyspnea. She also reports central middle back pain which is similar to her usual back pain. She denies any radiation of pain. Denies fever, chills, nausea, vomiting, headache. Admission Exam Per Admitting Provider General: moderate distress, obese HEENT: No overt JVD although difficult to appreciate with body habitus, moist mucous membranes CV: RRR, +systolic murmur over LUSB, normal S1 and S2 Resp: diminished breath sounds with bibasilar crackles, some increased work of breathing Abd: soft, distended, nontender Ext: +2 pitting edema up to knees b/l, weak dorsalis pedis pulses b/l MSK: difficult to perform full exam given pt's debility and pain with movement Neuro: AOx3, no gross focal motor deficits Principal Diagnosis Gram Positive Bacteremia Infective Endocarditis Discharge Exam General: pleasant, talkative, obese HEENT: No JVD, dry mucous membranes CV:RRR normal S1/S2, +systolic murmur over LUSB Resp: CTAB, no increased work of breathing Abd: soft, mildly distended, no tenderness to palpation, hypoactive bowel sounds Ext: 2+ pitting edema of LE, compression bandages intact, UE edema resolved Neuro: AOx4, no gross focal motor deficits Discharge Data Allergies Allergy/AdvReac Type Severity Reaction Status Date / Time No Known Allergies Allergy Verified 08/11/22 15:01 Consultations 08/13/22 02:07 ED Decision to Admit Stat 08/15/22 06:00 Consult Infectious Diseases Routine 08/15/22 12:15 Consult Nephrology Routine 08/15/22 16:52 Consult Anesthesiology Routine 08/16/22 10:17 Consult Cardiology Routine 08/18/22 21:18 Consult Anesthesiology Routine Procedures Performed Operation Date: 08/19/22 13:00 Actual Procedures s Echo Color Flow - Wesley Sanders MD s Echo Doppler Complete - Wesley Sanders MD p Echo Transesophageal - Wesley Sanders MD Ordered Studies 08/16/22 08:34 CT Abd and Pelvis [CT abd pelvis wo con] Stat CT lumbar spine wo con Stat 08/16/22 08:42 CT thoracic spine wo con Stat 08/17/22 14:37 MRI Lumbar Spine [MR lumbar spine wo con] Routine Hospital Course (1) Infective endocarditis: (2) Streptococcal bacteremia: (3) Sepsis: (4) Chest pain: (5) CKD (chronic kidney disease): (6) Back pain: (7) Diabetes mellitus with peripheral vascular disease: (8) Pneumonia: Plan 76 yo F with PMH HTN, chronic DVT with IVC filter, aortic stenosis, HFpEF, MGUS, cirrhosis, DM2, HLD, ROSALES on CPAP, chronic back pain w/ history of lumbar stenosis s/p surgery with multiple recent hospitalizations. 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 and antibiotic narrowing - TTE without vegetations; ID recommending DELFIN - Will consult ID for help with duration of treatment - 08/16 Blood Culture: NG@48h - XR b/l knees unremarkable - Urinalysis unremarkable - No leukocytosis - Lethargy resolved, AOx4 - CT/MRI spine: Negative - TTE: Negative - DELFIN: Positive for Vegetation on Mitral Valve (Meets diagnostic criteria for Infective Endocarditis) --- Continue Ceftriaxone at 2g daily for total of 6 weeks, repeat cultures weekly, pic line intact --- Lynn removed, voiding independently Atrial Fibrillation - Patient had brief episode of PAT this morning which provoked atrial fibrillation, evidenced on AM EKG - Rates averaging 150-160 in AM, received 5 mg Lopressor IV, rates to 120-130 w/ BP drop to 60s/40s - Evaluated at bedside, 500 cc bolus given, BP improved to 80/50s --- Continue Propranolol 10 mg TID Back pain - Pt does have chronic back pain, suspect current pain largely due to such history and morbid obesity - She states that this pain is different from her normal back pain, with bacteremia and hardware from spinal fusion, concern for osteomyelitis vs hardware seeding - CT and MRI negative for infectious source --- Back pain improved to /, rib pain resolved w/ heating pad --- Tylenol for pain PRN Acute kidney injury in setting of CKD3 - Cr 2 on admission, baseline around 1 - Suspect secondary to hypovolemia - Creatine up to 2.72 yesterday evening, down to 2.58 this morning with 1L of fluid over the past 24 hours - Nephrology signed off --- Cr average 1.8-2, recheck at hospital follow up --- Patient tolerating PO well --- Maintain even fluid balance HFpEF - CXR with significant vascular congestion and pulmonary edema - Echocardiogram 07/2022- EF 55-60% --- Closely follow I&O --- Suspect increased edema is depended as patient has been sitting in bedside chair, recommended elevation of legs and compression wraps, will follow Nausea/Abdominal Pain - KUB with Mild gaseous distention of the large and small bowel which may represent ileus, less likely partial obstruction - Is passing gas, no BM today - Tylenol prn for pain - Compezine, Famotidine, Zofran, Pantoprazole - Both pain and nausea improved - 08/16 Increasing abdominal firmness and tenderness, CTAP obtained suggestive of ileus, no obstruction of infection --- Continue diet, Zofran changed to PRN Elevated troponin and chest pain - Initial Troponin 74 repeat 73 - EKG without acute ST change - Chest pain has resolved Cirrhosis - Continue lactulose - Holding spironolactone given low BP, will resume as BP tolerates - No concern for hepatic encephalopathy or liver failure at present - Trend CMP Thrombocytopenia -Plts 98 on admission -Does appear chronic and at baseline, likely due to liver cirrhosis -Trend CBC --- Plts stable, no active bleeding DM2 - Holding home glimepiride, metformin - Held Lantus 5u BID until she is tolerating better PO intake, SSI ordered - Stable on Lantus 5 units BID while inpatient --- Return to outpatient regimen upon discharge HTN -Holding home lisinopril for EMY ROSALES -CPAP nightly HLD -Continue atorvastatin 10 mg Hypothyroidism -Continue levothyroxine Code status: DNR DVT ppx: SCDs, ppx deferred d/t tcpenia Lines: Picc Isolation: None Dispo: SNF for rehab Total Time Total Time Spent Total Time Spent (In Minutes): <30 Discharge Plan Discharge Items Patient Disposition: Transfer Inpatient Rehab Fac Reason For Visit: CHEST PAIN Discharge Diagnosis: Infective Endocarditis Gram Positive Bacteremia Activity: Per Instructions section Non-emergency contact: Primary Care Provider Call non-emergency contact if: you have any medication questions, your symptoms worsen and your temperature is above 101.5 Follow-up/Referrals: Franko Monk DO [Primary Care Provider] - Diet: Carb Consistent or DM2 and Heart Healthy Addtl Attending Provider Instructions: 76 yo F with PMH HTN, chronic DVT with IVC filter, aortic stenosis, HFpEF, MGUS, cirrhosis, DM2, HLD, ROSALES on CPAP, chronic back pain w/ history of lumbar stenosis s/p surgery with multiple recent hospitalizations. 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 and antibiotic narrowing - TTE without vegetations; ID recommending DELFIN - Will consult ID for help with duration of treatment - 08/16 Blood Culture: NG@48h - XR b/l knees unremarkable - Urinalysis unremarkable - No leukocytosis - Lethargy resolved, AOx4 - CT/MRI spine: Negative - TTE: Negative - DLEFIN: Positive for Vegetation on Mitral Valve (Meets diagnostic criteria for Infective Endocarditis) --- Continue Ceftriaxone at 2g daily for 6 weeks, repeat cultures weekly, pic line intact --- Lynn removed, voiding independently Atrial Fibrillation - Patient had brief episode of PAT this morning which provoked atrial fibrillation, evidenced on AM EKG - Rates averaging 150-160 in AM, received 5 mg Lopressor IV, rates to 120-130 w/ BP drop to 60s/40s - Evaluated at bedside, 500 cc bolus given, BP improved to 80/50s --- Tolerating Propranolol 10 mg TID, continue Back pain - Pt does have chronic back pain, suspect current pain largely due to such history and morbid obesity - She states that this pain is different from her normal back pain, with bacteremia and hardware from spinal fusion, concern for osteomyelitis vs hardware seeding - CT and MRI negative for infectious source --- Back pain improved to 09/02, rib pain resolved w/ heating pad --- Continue Tylenol PRN for pain management Acute kidney injury in setting of CKD3 - Cr 2 on admission, baseline around 1 - Suspect secondary to hypovolemia - Creatine up to 2.72 yesterday evening, down to 2.58 this morning with 1L of fluid over the past 24 hours - Nephrology signed off --- Cr range 1.8-2, continue to follow, repeat CMP in 1 week --- Patient tolerating PO well --- Maintain even fluid balance HFpEF - CXR with significant vascular congestion and pulmonary edema - Echocardiogram 07/2022- EF 55-60% --- Suspect increased edema is depended as patient has been sitting in bedside chair, recommended elevation of legs and compression wraps, will follow Nausea/Abdominal Pain - KUB with Mild gaseous distention of the large and small bowel which may represent ileus, less likely partial obstruction - Is passing gas, no BM today - Tylenol prn for pain - Compezine, Famotidine, Zofran, Pantoprazole - Both pain and nausea improved - 08/16 Increasing abdominal firmness and tenderness, CTAP obtained suggestive of ileus, no obstruction of infection --- Continue diet, Zofran changed to PRN Elevated troponin and chest pain - Initial Troponin 74 repeat 73 - EKG without acute ST change - Chest pain has resolved Cirrhosis - Continue lactulose - Holding spironolactone given low BP, will resume as BP tolerates - No concern for hepatic encephalopathy or liver failure at present - Trend CMP Thrombocytopenia -Plts 98 on admission -Does appear chronic and at baseline, likely due to liver cirrhosis -Trend CBC --- Plts stable, no active bleeding DM2 -Holding home glimepiride, metformin -Hold Lantus 5u BID until she is tolerating better PO intake, SSI ordered --- Lantus 5 units BID, follow sugars HTN -Holding home lisinopril for EMY ROSALES -CPAP nightly HLD -Continue atorvastatin 10 mg Hypothyroidism -Continue levothyroxine Code status: DNR DVT ppx: SCDs, ppx deferred during tcpenia Lines: Picc Isolation: None Dispo: PT/OT rec SNF Pending Studies at Discharge: No Stand-Alone Forms: My [facility] Skilled Items Patient informed of condition?: Yes DNR: Yes Discharge Level of Care: Acute rehab Communicable Disease: No Discharge Prognosis: Stable Lines: PICC Urinary Catheter: No Medications and DC Order Prescriptions: New propranolol 10 mg Tablet 10 mg PO TID 30 Days Qty: 90 0RF famotidine 20 mg Tablet 20 mg PO BID 30 Days Qty: 60 0RF ceftriaxone 2 gram recon soln 2 g IV DAILY 32 Days Qty: 10 0RF Continued atorvastatin 10 mg tablet 10 mg PO HS Qty: 90 3RF glimepiride 1 mg tablet 1 mg PO BID Qty: 180 3RF acetaminophen 325 mg tablet 650 mg PO Q4H PRN (Reason: fever or pain) Qty: 30 0RF levothyroxine 50 mcg tablet 50 mcg PO DAILY Qty: 90 3RF magnesium chloride 64 mg tablet,delayed release (DR/EC) 128 mg PO TID Qty: 540 3RF lisinopril 10 mg tablet 10 mg PO DAILY nystatin 100,000 unit/gram powder 1 applic topical TID PRN (Reason: rash) Qty: 60 5RF spironolactone 25 mg tablet 25 mg PO DAILY Qty: 30 5RF coenzyme Q10 200 mg capsule 200 mg PO DAILY sodium chloride 1 gram tablet 1,000 mg PO DAILY Qty: 90 1RF docusate sodium 100 mg Capsule 100 mg PO BID PRN (Reason: Constipation) cholecalciferol (vitamin D3) [Vitamin D3] 2,000 unit Capsule 2,000 unit PO QAM multivitamin Tablet 1 tab PO QAM vitamin E 400 unit capsule 400 unit PO QAM metformin 500 mg tablet 500 mg PO DAILY lactulose 20 gram/30 mL Solution 30 g PO BID 30 Days Qty: 2700 0RF furosemide [Lasix] 40 mg tablet 40 mg PO DAILY Qty: 30 0RF famotidine 20 mg tablet 20 mg PO BID PRN (Reason: Heartburn) polyethylene glycol 3350 [Miralax] 17 gram powder in packet 17 g PO DAILY PRN (Reason: Constipation) ondansetron 4 mg tablet,disintegrating 4 mg PO Q6H PRN (Reason: nausea and vomiting) Qty: 14 0RF Discharge Orders: Discharge Order (Routine); Ordered 08/25/22 Ordered By: Jennifer Guardado Admission Data Admit Date/Time: 08/13/22 03:44 Attending Provider: Arsh Chamberlain Admit Provider: Jay Ryan Primary Care Provider: Franko Monk Other Providers: Wesley Sanders ; [facility] ; [facility] [place] ; Rain Lopez ; Dru Becerra ; Jasmin Nova ; Spencer Rosas ; Celena Fairchild ; Justus Allen ; Adelia Motta ; Melita Meade ; Janey Wahl ; Corwin Gupta ; Mag Coyle ; Precious Momin ; Sheree Mendez ; Dede Talley ; Carol Akhtar ; Lakisha Hastings ; Angela Whitehead ; Jian Schmidt ; Casimiro Olivier ; Edi Mckay ; Derian Fisher ; Poornima Fisher ; Rell Moreno ; Kate Ortez ; Danial Mccauley ; Doanld Rizo ; Pedro Villa ; Dmitriy Santos ; Peggy Barajas ; Sean Small ; Ratna Katz ; Kimberley Small ; Reji August ; Kellie Powell ; Nikunj Romero ; Sherrie Blanchard ; Thania Queen ; Med Bunch ; Sujey Figueroa ; Mitzi Vela ; Emma Madsen ; Hue Rosario ; Eric Rosario V ; Liam Red ; Dede Driver ; Leodan Aguilar ; Vibha Goldberg ; Eric Cornejo ; Terry Barajas ; Cory Crisostomo ; Cyndy Neely ; Sofia Juares ; Eric Mendoza ; Silas Molina ; Pauline Evans ; Luis Lagos ; Murali Santos ; Luba Weems ; Mickey Alfaro ; Karissa Lindsey ; Jay Luong ; Mickey Bee ; Jian Hamm Jr ; Cheryl Ngo ; Estefania Glass ; Neha Lubin ; Med Taylor ; Lakisha May ; Derian Castrejon ; Keith Young I. ; Lou Duggan S. ; Estefania Mann ; Holly Gimenez ; Franko Loera ; Tj Armijo ; Hayden Benavides ; Jamshid Boswell ; Luis Obrien ; Raul Terrazas ; Amador Ortiz Jr ; Elder Rodriguez ; Kaitlynn Sánchez ; Susan Hsieh ; Mickey Mojica ; George Cleary ; Kate Garcia ; Yessy Castillo ; James Trujillo ; Dov Wilson ; Zion Meyer ; Luis Beauchamp V. Other Interventions: Discharge Summary Assessment (RN) Last Done: 08/25/22 13:28 Supervising Physician Co-Signing Physician Notes I personally examined the patient and verified all almanzar points of history and exam, discussed case, and agree with decision making with Dr Guardado for SNF today. no new complaints Vitals noted, in general she is awake and alert pleasant no distress. HEENT normocephalic atraumatic mucous membranes moist. Breathing unlabored no accessory muscle use good effort. Sepsis due to gram-positive bacteremia with subsequent endocarditisfortunately improving nicely. Continue ceftriaxone. for SNF today. follow periodic BMP, outpt PCP f/u
[2022-08-25 08:42] LABS: Hematocrit (blood only) 27.9 % (37.0-47.0); Hemoglobin 8.7 g/dl (12.0-16.0); Mean Corpuscular Hemoglobin 26.6 pg (25.0-34.0); Mean Corpuscular Hgb Conc 31.2 g/dL (32.0-36.0); Mean Corpuscular Volume 85.3 fL (80.0-100.0); Platelet Count 182 K/uL (130-400); RDW Coefficient of Variation 17.8 % (11.5-14.5); RDW Standard Deviation 54.4 fL (36.4-46.3); Red Blood Count 3.27 M/uL (4.20-5.40); White Blood Count 4.38 K/ul (4.8-10.8)
[2022-08-25] MEDS ORDERED: HEPARIN SOD 5,000 UNIT/0.5 ML VIAL SQ SCH (09:00)
[2022-08-25] MEDS: LANTUS PER UNIT CHARGE SQ SCH (09:04)
[2022-08-25 09:23] LABS: Albumin Level 2.1 gm/dl (3.4-5.0); Bilirubin,Total 0.4 mg/dl (0.2-1.0); Calcium 8.3 mg/dl (8.5-10.1); Potassium 4.7 mmol/L (3.5-5.1)
[2022-08-25 09:29] LABS: Albumin Globulin Ratio 0.4 (0.9-2); BUN Creatinine Ratio 28.2 (10-20); Creatinine Clr Calc Pharmacy 27.2 ml/min; Est GFR (African American) 26.7 ml/min; Globulin 4.7 gm/dl (2.5-4.0); Total Protein 6.8 gm/dl (6.0-8.3)
--- NOTE | 2022-08-25 18:55 | Billing Data ---
Date of Service August 25, 2022 Coding Level of Care Code HOSP INP/OBS DISCH 30 MIN/LESS
== END 2022-08-25 14:25 | DRG 871 ==
LOC: ED 22:15 → 1E 08-13 03:44 → SUATTDRO 08-13 03:44 → 1E 08-13 04:39 → 2N 08-13 17:49 → 4W 08-16 08:56 → 3N 08-23 18:39

== ENCOUNTER 2022-11-21 13:37 | Inpatient (IN) ==
[2022-11-21] MEDS ORDERED: FUROSEMIDE 40 MG/4 ML VIAL IV ONE ×2 (14:41→22:00)
[2022-11-21 14:52] LABS: Alanine Aminotransferase 21 U/L (7-52); Albumin Globulin Ratio 0.5 (0.9-2); Albumin Level 2.7 gm/dl (3.4-5.0); Alkaline Phosphatase 86 U/L (34-104); Anion Gap 3 (3-11); Aspartate Aminotransferase 37 U/L (13-39); BUN Creatinine Ratio 48.7 (10-20); Bilirubin,Total 0.6 mg/dl (0.2-1.0); Blood Urea Nitrogen 74 mg/dl (6-23); Calcium 8.9 mg/dl (8.6-10.3); Carbon Dioxide 23 mmol/L (21-32); Chloride 109 mmol/L (98-107); Est GFR (African American) 37.4 ml/min; Est GFR (Non-African American) 32.3 ml/min; Globulin 5.3 gm/dl (2.5-4.0); Glucose 124 mg/dl (70-99(Fasting)); Magnesium 1.5 mg/dl (1.7-2.4); Potassium 5.9 mmol/L (3.5-5.1); Sodium 135 mmol/L (136-145)
[2022-11-21 14:58] LABS: Anisocytosis Present; Basophils # (auto) 0.02 K/uL (0-0.2); Basophils % (auto) 0.5 %; Eosinophils # (auto) 0.09 K/uL (0-0.50); Eosinophils % (auto) 2.2 %; Hematocrit (blood only) 33.8 % (37.0-47.0); Hemoglobin 10.4 g/dl (12.0-16.0); Immature Granulocytes # (auto) 0.02 K/uL (0.01-0.20); Immature Granulocytes % (auto) 0.5 %; Lymphocytes # (auto) 0.94 K/uL (1.2-3.4); Lymphocytes % (auto) 22.7 %; Mean Corpuscular Hemoglobin 28.7 pg (25.0-34.0); Mean Corpuscular Hgb Conc 30.8 g/dL (32.0-36.0); Mean Corpuscular Volume 93.1 fL (80.0-100.0); Mean Platelet Volume 10.1 fL (9.4-12.4); Monocytes # (auto) 0.37 K/uL (0.11-0.59); Monocytes % (auto) 8.9 %; Neutrophils % (auto) 65.2 %; Platelet Count 111 K/uL (130-400); RDW Coefficient of Variation 21.7 % (11.5-14.5); RDW Standard Deviation 74.8 fL (36.4-46.3); Red Blood Count 3.63 M/uL (4.20-5.40); White Blood Count 4.14 K/ul (4.8-10.8)
[2022-11-21 14:59] LABS: Pregnancy Test, Serum Negative (Negative); Troponin I High Sensitivity 14.6 pg/ml (0-14)
[2022-11-21 15:03] LABS: Appearance Urine Clear (Clear); Bacteria Urine Automated Negative (Negative); Bilirubin Urine Negative (Negative); Blood Urine Negative (Negative); Color Urine Yellow; Epithelial Cell Urine Auto >30 /lpf (0-5); Glucose Urine UA Negative (Negative); Ketones Urine Negative (Negative); Leukocyte Esterase Urine Negative (Negative); Nitrite Urine Negative (Negative); Protein Urine 2+ (Negative); RBC Urine Automated 0-4 /hpf (0-4); Specific Gravity Urine 1.017 (1.000-1.030); Urobilinogen Urine Negative (Negative)
[2022-11-21] MEDS ORDERED: MAGNESIUM SULFATE / D5W 1 GM/100 ML BAG IV ONE (15:12)
--- NOTE | 2022-11-21 15:24 | Emergency Department Note ---
Impression & Plan CHF (congestive heart failure), Bilateral lower extremity edema, Hypomagnesemia, Acute hyperkalemia ED Provider Note INFORMANT: Patient ED PROVIDER(S): Murali Nelson MD CHIEF COMPLAINT: Shortness of breath and leg swelling PLAN: Disposition: Admitted Condition: Good Outpatient prescription management: none Referral: None MEDICAL DECISION MAKING: Patient presented because of weight gain, leg swelling, and shortness of breath. She also had cold symptoms. Bio fire testing was performed and revealed presence of rhinovirus/enterovirus. She does have some pulmonary edema on chest x-ray but is maintaining her saturations well. She has significant lower extremity edema. Her CBC shows mild pancytopenia. Her magnesium was mildly low. This was repleted. Her potassium was high and this was repeated to verify. It was still high at 5.9. She has some mild renal insufficiency and she is on spironolactone. Patient's BNP is very elevated as well, much higher than usual for her. This would support CHF.She was treated with IV Lasix. The patient was given IV calcium, one half amp of D50, and 5 units of IV insulin to avoid complications from her hyperkalemia. Patient's troponin was negative. Her urinalysis was unremarkable. Further management in hospital will be necessary. Consultation was made with the [facility]. Case was discussed and diagnostics were reviewed. Discussed with regulatory manager. After review of the information above and other included data, I feel the patient requires admission. Triage Nursing notes reviewed and agree them. Vital Signs: reviewed and remarkable for hypertension Prior /Outside records reviewed: Primary care record reviewed. Differential diagnosis: Reactive airway disease, pneumonia, pneumothorax, COPD, CHF, infections, cardiac ischemia, pulmonary embolism, musculoskeletal, gastrointestinal, as well as other pathologies. Diagnostics, as interpreted by me: ECG: Twelve-lead ECG reveals a sinus bradycardia 55 bpm. Right bundle branch block. Left anterior fascicular block. No ST elevation or depression. No PACs or PVCs. No peaked T waves. Cardiac Monitoring: Cardiac monitoring ordered by me: The patient was placed on continuous cardiac monitoring and observed. It revealed a normal sinus rhythm at 60 beats per minute without ectopy or evidence of dysrhythmia. Medical decision rules: none Imaging studies: Chest x-ray reveals pulmonary vascular congestion and cardiomegaly. HPI: The patient is a 77year old female who presents to the Emergency Room with complaints of shortness of breath and lower leg swelling. This started to worsen last week and is persisting. Patient notes about a 15 pound weight gain over the last few months. She is on diuretics at home but still has increasing lower extremity edema. She notes some weeping from the right leg. The patient also notes the following associated symptoms, cough and congestion, weakness. She notes that family was sick with URI symptoms recently. Patient was directed to the ER by PCP. The patient has taken no medication for relieving factors. Current pain is rated as 0/10. Pt denies LOC, headache, fevers, chills, diaphoresis, visual changes, neck pain, chest pain, nausea, vomiting, abdominal pain, back pain, melena, hematochezia, urinary symptoms, numbness, lymphadenopathy, rash, or other complaints. PAST MEDICAL HISTORY: See Below, A-fib, diabetes, heart failure PAST SURGICAL HISTORY: See Below, knee replacement SOCIAL HISTORY: See Below, retired HOME MEDICATIONS: See Below ALLERGIES: See Below VITALS: See Below PHYSICAL EXAMINATION: GENERAL: Awake, alert, mildly dyspneic-appearing, in no distress HENT: Normocephalic, atraumatic. Oropharynx unremarkable. EYES: Normal conjunctiva. Sclera non-icteric. NECK: Inspection normal. Non-tender. Supple. No nuchal rigidity. FROM. No masses. RESPIRATORY: Clear to auscultation. No wheezes. No rales. Mildly increased respiratory effort. CARDIAC: Normal rate. Normal rhythm. No murmurs. No rubs. Extremities warm and well perfused. Pulses equal. No JVD. GI: Soft, non-distended. No tenderness to palpation. No rebound or guarding. No masses. MUSCULOSKELETAL: Atraumatic. Chest examination reveals no tenderness. There is no CVA tenderness to palpation. No joint edema. LOWER EXTREMITIES: Calves are equal size bilaterally and non-tender. 4+ edema. No discoloration. NEURO: Normal sensorium. No sensory or motor deficits noted. SKIN: No rash or jaundice noted. Past Med/Surg History Medical History (Updated 11/21/22 @ 15:24 by Murali Nelson MD) Anemia Chronic deep vein thrombosis (DVT) Cough Diverticular hemorrhage resolved DVT (deep venous thrombosis) Esophageal varices determined by endoscopy Fever GERD (gastroesophageal reflux disease) GI bleed none at present Hepatic encephalopathy Lactate blood increase Migraine Monoclonal gammopathy Osteoarthritis Presence of IVC filter Pulmonary embolism 2019 > no known cause > Filter to right groin Thrombocytopenia Vertigo Vomiting and diarrhea Weakness Wheezing Surgical History History of bilateral breast reduction surgery History of bilateral cataract extraction History of carpal tunnel release of both wrists History of section x3 History of colonoscopy History of dilatation and curettage History of esophagogastroduodenoscopy (EGD) History of laparoscopic cholecystectomy History of lumbar spinal fusion hardware in place History of tonsillectomy History of tooth extraction all teeth History of total left knee replacement (TKR) History of total right knee replacement (TKR) Family History Mother Family history of diabetes mellitus Brother Family history of diabetes mellitus 3 brothers Colorectal cancer Myocardial infarction x 2 Father Myocardial infarction Denies family history of Ovarian cancer Prostate cancer Breast cancer Social History (Updated 11/21/22 @ 10:53 by Christal Suero LPN) Smoking Status: Former smoker Tobacco Type: Cigarettes Age Started Using Tobacco: 15; Age Quit Using Tobacco: 21; Cigarettes Per Day: stopped 55 years ago; Second Hand Exposure: No; Do You Dip or Chew Tobacco: No; Hx Alcohol Use: No Hx Substance Use: No Preferred Language: U[place] Communication Ability: Effective Visual Impairment: Limited Hearing Ability: Normal 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 Refining Required: No Beliefs That Will Affect Care: None marital status: / Current Living Situation: Family Current Living Situation Comment: lives with son current occupational status: retired How many Children do You have: 3 Feels Safe at Home: Yes Childhood Exposure to Second-Hand Smoke: Yes Diet: regular caffeine: Yes (tea) during the past year weight has: remained stable Dental Care, Regularly: No Physical Activity Frequency: Does not Exercise Seatbelt Use: always Sunscreen Use: No Do you think of yourself as: straight/heterosexual Gender Identity: Female Assistive Devices: Glasses, Raised Toilet Seat and Walker Allergies Allergies Allergy/AdvReac Type Severity Reaction Status Date / Time No Known Allergies Allergy Verified 11/21/22 15:38 Home Meds Home Medications Medication Instructions Recorded Confirmed cholecalciferol (vitamin D3) 50 2,000 unit PO QAM 07/01/18 11/21/22 mcg (2,000 unit) capsule (Vitamin D3) multivitamin 1 tab PO QAM 10/14/19 11/21/22 vitamin E 268 mg (400 unit) capsule 400 unit PO QAM 08/14/20 11/21/22 coenzyme Q10 200 mg capsule 200 mg PO DAILY 11/01/21 11/21/22 food supplemt, lactose-reduced See Rx Instructions PO .COMPLEX 09/08/22 11/21/22 furosemide 40 mg tablet (Lasix) See Rx Instructions .Route .COMPLEX 11/21/22 11/21/22 sodium chloride 1,000 mg soluble 1,000 mg PO DAILY 11/21/22 11/21/22 tablet witch rodolfo 50 % topical pads 1 pad topical BID PRN Hemorrhoids 11/21/22 11/21/22 (Hemorrhoidal (witch rodolfo)) Previous Rx's Medication Instructions Recorded acetaminophen 325 mg tablet 650 mg PO Q4H PRN fever or pain 03/23/22 #30 tabs nystatin 100,000 unit/gram topical 1 applic topical TID PRN rash #60 07/20/22 powder grams atorvastatin 10 mg tablet 10 mg PO HS #90 tabs 09/08/22 lactulose 10 gram oral packet 30 g PO BID #540 ea 09/08/22 magnesium chloride 64 mg 128 mg PO TID #540 tabs 09/08/22 (magnesium chloride) tablet,delayed release metformin 500 mg tablet 500 mg PO DAILY #90 tabs 09/08/22 propranolol 10 mg tablet 10 mg PO TID 90 days #270 tabs 09/08/22 spironolactone 25 mg tablet 25 mg PO DAILY #90 tabs 09/08/22 lisinopril 5 mg tablet 5 mg PO DAILY #30 tabs 10/17/22 doxycycline monohydrate 100 mg 100 mg PO BID #28 caps 11/10/22 capsule levothyroxine 75 mcg tablet 75 mcg PO DAILY #90 tabs 11/18/22 Results & Data (ED) Vital Signs Vital Signs - 24 hr 11/21/22 13:38 11/21/22 15:32 11/21/22 15:53 Temperature 36.8 C Temperature Source Temporal Artery Scan Pulse Rate 68 64 Pulse Rate [Apical] 60 Respiratory Rate 18 18 Respiratory Effort / Characteristics Non-Labored Respiratory Depth Normal Blood Pressure 174/97 H Blood Pressure [Right Arm] 149/91 H Blood Pressure Mean 122 Blood Pressure Mean [Right Arm] 110 Pulse Oximetry 99 96 98 Oxygen Delivery Method Room Air Room Air Room Air Sepsis Recent Fever Within 48 Hours No Sepsis New/Unexplained Change in Mental Status No Sepsis Action Taken by Nursing No Action Required Laboratory Data 11/21/22 13:48 11/21/22 13:48 Lab Results 11/21/22 11/21/22 11/21/22 Range/Units 13:48 13:48 13:48 WBC 4.14 L (4.8-10.8) K/ul RBC 3.63 L (4.20-5.40) M/uL Hgb 10.4 L (12.0-16.0) g/dl Hct 33.8 L (37.0-47.0) % MCV 93.1 (80.0-100.0) fL MCH 28.7 (25.0-34.0) pg MCHC 30.8 L (32.0-36.0) g/dL RDW Std Deviation 74.8 H (36.4-46.3) fL RDW Coeff of Leah 21.7 H (11.5-14.5) % Plt Count 111 L (130-400) K/uL MPV 10.1 (9.4-12.4) fL Immature Gran % (Auto) 0.5 % Neut % (Auto) 65.2 % Lymph % (Auto) 22.7 % Rice % (Auto) 8.9 % Eos % (Auto) 2.2 % Baso % (Auto) 0.5 % Neut # (Auto) 2.70 (1.40-6.50) K/uL Lymph # (Auto) 0.94 L (1.2-3.4) K/uL Rice # (Auto) 0.37 (0.11-0.59) K/uL Eos # (Auto) 0.09 (0-0.50) K/uL Baso # (Auto) 0.02 (0-0.2) K/uL Immature Gran # (Auto) 0.02 (0.01-0.20) K/uL Anisocytosis Present Sodium 135 L (136-145) mmol/L Potassium 5.9 H (3.5-5.1) mmol/L Chloride 109 H (98-107) mmol/L Carbon Dioxide 23 (21-32) mmol/L Anion Gap 3 (3-11) BUN 74 H (6-23) mg/dl Creatinine 1.52 H (0.6-1.2) mg/dl Est Cr Clr Drug Dosing Not Reportable Est GFR ( Amer) 37.4 ml/min Est GFR (Non-Af Amer) 32.3 ml/min BUN/Creatinine Ratio 48.7 H (10-20) Glucose 124 H (70-99(Fasting)) mg/dl Lactate (0.4-2.0) mmol/L Calcium 8.9 (8.6-10.3) mg/dl Magnesium 1.5 L (1.7-2.4) mg/dl Total Bilirubin 0.6 (0.2-1.0) mg/dl AST 37 (13-39) U/L ALT 21 (7-52) U/L Alkaline Phosphatase 86 (34-104) U/L Troponin I High Sens 14.6 H (0-14) pg/ml B-Natriuretic Peptide 511 H (0-100) pg/ml Total Protein 8.0 (6.0-8.3) gm/dl Albumin 2.7 L (3.4-5.0) gm/dl Globulin 5.3 H (2.5-4.0) gm/dl Albumin/Globulin Ratio 0.5 L (0.9-2) HCG, Qual (Negative) Urine Color Urine Appearance (Clear) Urine pH (4.5-7.5) Ur Specific [place] (1.000-1.030) Urine Protein (Negative) Urine Glucose (UA) (Negative) Urine Ketones (Negative) Urine Blood (Negative) Urine Nitrite (Negative) Urine Bilirubin (Negative) Urine Urobilinogen (Negative) Ur Leukocyte Esterase (Negative) Urine WBC (Auto) (0-5) /hpf Urine RBC (Auto) (0-4) /hpf U Hyaline Cast (Auto) (0-5) /lpf U Epithel Cells (Auto) (0-5) /lpf Urine Bacteria (Auto) (Negative) Urine Yeast Adenovirus (PCR) (NotDetected) B. pertussis DNA (PCR) (NotDetected) B.parapertussis DNA PCR (NotDetected) C. pneumoniae DNA (PCR) (NotDetected) Coronavirus OC43 (PCR) (NotDetected) Coronavirus HKU1 (PCR) (NotDetected) Coronavirus 229E (PCR) (NotDetected) SARS-CoV-2 (PCR) (NotDetected) Coronavirus NL63 (PCR) (NotDetected) Human Metapneumovir PCR (NotDetected) Influenza Type A (PCR) (NotDetected) Influenza Type B (PCR) (NotDetected) M. pneumoniae (PCR) (NotDetected) Parainfluenza 1 (PCR) (NotDetected) Parainfluenza 2 (PCR) (NotDetected) Parainfluenza 3 (PCR) (NotDetected) Parainfluenza 4 (PCR) (NotDetected) RSV (PCR) (NotDetected) Entero/Rhino (PCR) (NotDetected) 11/21/22 11/21/22 11/21/22 Range/Units 13:48 13:49 14:25 WBC (4.8-10.8) K/ul RBC (4.20-5.40) M/uL Hgb (12.0-16.0) g/dl Hct (37.0-47.0) % MCV (80.0-100.0) fL MCH (25.0-34.0) pg MCHC (32.0-36.0) g/dL RDW Std Deviation (36.4-46.3) fL RDW Coeff of Leah (11.5-14.5) % Plt Count (130-400) K/uL MPV (9.4-12.4) fL Immature Gran % (Auto) % Neut % (Auto) % Lymph % (Auto) % Rice % (Auto) % Eos % (Auto) % Baso % (Auto) % Neut # (Auto) (1.40-6.50) K/uL Lymph # (Auto) (1.2-3.4) K/uL Rice # (Auto) (0.11-0.59) K/uL Eos # (Auto) (0-0.50) K/uL Baso # (Auto) (0-0.2) K/uL Immature Gran # (Auto) (0.01-0.20) K/uL Anisocytosis Sodium (136-145) mmol/L Potassium (3.5-5.1) mmol/L Chloride (98-107) mmol/L Carbon Dioxide (21-32) mmol/L Anion Gap (3-11) BUN (6-23) mg/dl Creatinine (0.6-1.2) mg/dl Est Cr Clr Drug Dosing Est GFR ( Amer) ml/min Est GFR (Non-Af Amer) ml/min BUN/Creatinine Ratio (10-20) Glucose (70-99(Fasting)) mg/dl Lactate 1.4 (0.4-2.0) mmol/L Calcium (8.6-10.3) mg/dl Magnesium (1.7-2.4) mg/dl Total Bilirubin (0.2-1.0) mg/dl AST (13-39) U/L ALT (7-52) U/L Alkaline Phosphatase (34-104) U/L Troponin I High Sens (0-14) pg/ml B-Natriuretic Peptide (0-100) pg/ml Total Protein (6.0-8.3) gm/dl Albumin (3.4-5.0) gm/dl Globulin (2.5-4.0) gm/dl Albumin/Globulin Ratio (0.9-2) HCG, Qual Negative (Negative) Urine Color Yellow Urine Appearance Clear (Clear) Urine pH 5.0 (4.5-7.5) Ur Specific [place] 1.017 (1.000-1.030) Urine Protein 2+ H (Negative) Urine Glucose (UA) Negative (Negative) Urine Ketones Negative (Negative) Urine Blood Negative (Negative) Urine Nitrite Negative (Negative) Urine Bilirubin Negative (Negative) Urine Urobilinogen Negative (Negative) Ur Leukocyte Esterase Negative (Negative) Urine WBC (Auto) 1-5 (0-5) /hpf Urine RBC (Auto) 0-4 (0-4) /hpf U Hyaline Cast (Auto) 1-5 (0-5) /lpf U Epithel Cells (Auto) >30 H (0-5) /lpf Urine Bacteria (Auto) Negative (Negative) Urine Yeast Not Reportable Adenovirus (PCR) (NotDetected) B. pertussis DNA (PCR) (NotDetected) B.parapertussis DNA PCR (NotDetected) C. pneumoniae DNA (PCR) (NotDetected) Coronavirus OC43 (PCR) (NotDetected) Coronavirus HKU1 (PCR) (NotDetected) Coronavirus 229E (PCR) (NotDetected) SARS-CoV-2 (PCR) (NotDetected) Coronavirus NL63 (PCR) (NotDetected) Human Metapneumovir PCR (NotDetected) Influenza Type A (PCR) (NotDetected) Influenza Type B (PCR) (NotDetected) M. pneumoniae (PCR) (NotDetected) Parainfluenza 1 (PCR) (NotDetected) Parainfluenza 2 (PCR) (NotDetected) Parainfluenza 3 (PCR) (NotDetected) Parainfluenza 4 (PCR) (NotDetected) RSV (PCR) (NotDetected) Entero/Rhino (PCR) (NotDetected) 11/21/22 11/21/22 Range/Units 14:35 14:51 WBC (4.8-10.8) K/ul RBC (4.20-5.40) M/uL Hgb (12.0-16.0) g/dl Hct (37.0-47.0) % MCV (80.0-100.0) fL MCH (25.0-34.0) pg MCHC (32.0-36.0) g/dL RDW Std Deviation (36.4-46.3) fL RDW Coeff of Leah (11.5-14.5) % Plt Count (130-400) K/uL MPV (9.4-12.4) fL Immature Gran % (Auto) % Neut % (Auto) % Lymph % (Auto) % Rice % (Auto) % Eos % (Auto) % Baso % (Auto) % Neut # (Auto) (1.40-6.50) K/uL Lymph # (Auto) (1.2-3.4) K/uL Rice # (Auto) (0.11-0.59) K/uL Eos # (Auto) (0-0.50) K/uL Baso # (Auto) (0-0.2) K/uL Immature Gran # (Auto) (0.01-0.20) K/uL Anisocytosis Sodium (136-145) mmol/L Potassium 5.9 H (3.5-5.1) mmol/L Chloride (98-107) mmol/L Carbon Dioxide (21-32) mmol/L Anion Gap (3-11) BUN (6-23) mg/dl Creatinine (0.6-1.2) mg/dl Est Cr Clr Drug Dosing Est GFR ( Amer) ml/min Est GFR (Non-Af Amer) ml/min BUN/Creatinine Ratio (10-20) Glucose (70-99(Fasting)) mg/dl Lactate (0.4-2.0) mmol/L Calcium (8.6-10.3) mg/dl Magnesium (1.7-2.4) mg/dl Total Bilirubin (0.2-1.0) mg/dl AST (13-39) U/L ALT (7-52) U/L Alkaline Phosphatase (34-104) U/L Troponin I High Sens (0-14) pg/ml B-Natriuretic Peptide (0-100) pg/ml Total Protein (6.0-8.3) gm/dl Albumin (3.4-5.0) gm/dl Globulin (2.5-4.0) gm/dl Albumin/Globulin Ratio (0.9-2) HCG, Qual (Negative) Urine Color Urine Appearance (Clear) Urine pH (4.5-7.5) Ur Specific [place] (1.000-1.030) Urine Protein (Negative) Urine Glucose (UA) (Negative) Urine Ketones (Negative) Urine Blood (Negative) Urine Nitrite (Negative) Urine Bilirubin (Negative) Urine Urobilinogen (Negative) Ur Leukocyte Esterase (Negative) Urine WBC (Auto) (0-5) /hpf Urine RBC (Auto) (0-4) /hpf U Hyaline Cast (Auto) (0-5) /lpf U Epithel Cells (Auto) (0-5) /lpf Urine Bacteria (Auto) (Negative) Urine Yeast Adenovirus (PCR) Not Detected (NotDetected) B. pertussis DNA (PCR) Not Detected (NotDetected) B.parapertussis DNA PCR Not Detected (NotDetected) C. pneumoniae DNA (PCR) Not Detected (NotDetected) Coronavirus OC43 (PCR) Not Detected (NotDetected) Coronavirus HKU1 (PCR) Not Detected (NotDetected) Coronavirus 229E (PCR) Not Detected (NotDetected) SARS-CoV-2 (PCR) Not Detected (NotDetected) Coronavirus NL63 (PCR) Not Detected (NotDetected) Human Metapneumovir PCR Not Detected (NotDetected) Influenza Type A (PCR) Not Detected (NotDetected) Influenza Type B (PCR) Not Detected (NotDetected) M. pneumoniae (PCR) Not Detected (NotDetected) Parainfluenza 1 (PCR) Not Detected (NotDetected) Parainfluenza 2 (PCR) Not Detected (NotDetected) Parainfluenza 3 (PCR) Not Detected (NotDetected) Parainfluenza 4 (PCR) Not Detected (NotDetected) RSV (PCR) Not Detected (NotDetected) Entero/Rhino (PCR) DETECTED A* (NotDetected) Administered Medications Magnesium Sulfate/Dextrose (Magnesium Sulfate / D5w) 1 gm in 100 mls @ 50 mls/hr IV ONE ONE Stop: 11/21/22 17:11 Last Admin: 11/21/22 15:27 Dose: 50 mls/hr Documented By: PITA Discontinued Medications Dextrose (Dextrose 50% 50 Ml Syringe) 25 ml IV NOW ONE Stop: 11/21/22 16:05 Last Admin: 11/21/22 16:23 Dose: 25 ml Documented By: KENYA Furosemide (Furosemide 40 Mg/4 Ml Vial) 40 mg IV ONE ONE Stop: 11/21/22 14:42 Last Admin: 11/21/22 15:27 Dose: 40 mg Documented By: PITA Calcium Gluconate () 1,000 mg in 60 mls @ 240 mls/hr IV NOW STA Stop: 11/21/22 16:16 Last Admin: 11/21/22 16:20 Dose: 240 mls/hr Documented By: KENYA Insulin Human Regular (Novolin-R Insulin Per Unit Charge) 5 units IV NOW STA Stop: 11/21/22 16:05 Last Admin: 11/21/22 16:23 Dose: 5 units Documented By: KENYA Co-signed By: PITA Imaging Data Radiologist's Impression: Chest X-Ray 11/21/22 13:48 SINGLE VIEW CHEST CLINICAL HISTORY: Dyspnea FINDINGS: An AP, portable, upright chest radiograph is compared to study dated 08/13/2022 and correlated with chest CT dated 10/14/2019. The examination is degraded by portable technique and apical lordotic positioning. The heart is enlarged noting atherosclerotic calcification of the thoracic aorta. There is mild pulmonary vascular congestion. There is bibasilar scarring/atelectasis. No airspace consolidation or large pleural effusion is identified. No pneumothorax is seen. The skeletal structures are osteopenic. The bony thorax is grossly intact. IMPRESSION: Cardiomegaly with mild pulmonary vascular congestion. ACT 112: Negative or not required by law. Electronically signed by: Kenny Jung M.D. 11/21/2022 4:23 PM Discharge Plan Visit Data Chief Complaint: Referred by Doctor Stated Complaint: REF BY DOC,FLUID IN LEG,DIFFICULTY BREATHING,ADMIT ED Provider: Murali Nelson Discharge Problem: CHF (congestive heart failure), Bilateral lower extremity edema, Hypomagnesemia, Acute hyperkalemia Forms Stand Alone Forms: [facility] [employer] Prescriptions Prescriptions: No Action acetaminophen 325 mg tablet 650 mg PO Q4H PRN (Reason: fever or pain) Qty: 30 0RF doxycycline monohydrate 100 mg capsule 100 mg PO BID Qty: 28 0RF Rx Instructions: STARTED 11/10/22 FOR 14 DAYS levothyroxine 75 mcg tablet 75 mcg PO DAILY Qty: 90 3RF lisinopril 5 mg tablet 5 mg PO DAILY Qty: 30 3RF Hold Instructions: high K nystatin 100,000 unit/gram powder 1 applic topical TID PRN (Reason: rash) Qty: 60 5RF coenzyme Q10 200 mg capsule 200 mg PO DAILY food supplemt, lactose-reduced Liquid See Rx Instructions PO .COMPLEX Rx Instructions: orally 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; atorvastatin 10 mg tablet 10 mg PO HS Qty: 90 3RF magnesium chloride 64 mg tablet,delayed release (DR/EC) 128 mg PO TID Qty: 540 3RF metformin 500 mg tablet 500 mg PO DAILY Qty: 90 3RF spironolactone 25 mg tablet 25 mg PO DAILY Qty: 90 3RF Hold Instructions: high K lactulose 10 gram packet 30 g PO BID Qty: 540 3RF propranolol 10 mg tablet 10 mg PO TID 90 Days Qty: 270 3RF cholecalciferol (vitamin D3) [Vitamin D3] 2,000 unit Capsule 2,000 unit PO QAM multivitamin Tablet 1 tab PO QAM vitamin E 400 unit capsule 400 unit PO QAM sodium chloride 1,000 mg Tablet,Soluble 1,000 mg PO DAILY furosemide [Lasix] 40 mg tablet See Rx Instructions .ROUTE .COMPLEX Rx Instructions: 40 mg orally ;40 mg in am and 20 mg in afternoon Hemorrhoidal (witch rodolfo) 50 % pads, medicated 1 pad topical BID PRN (Reason: Hemorrhoids) Referrals Referrals: Franko Monk DO [Primary Care Provider] -
[2022-11-21 15:48] LABS: Adenovirus PCR Not Detected (NotDetected); Bordetella parapertussis PCR Not Detected (NotDetected); Bordetella pertussis PCR Not Detected (NotDetected); Chlamydia pneumoniae PCR Not Detected (NotDetected); Coronavirus 229E PCR Not Detected (NotDetected); Coronavirus CoV-2 (COVID19)PCR Not Detected (NotDetected); Coronavirus HKU1 PCR Not Detected (NotDetected); Coronavirus NL63 PCR Not Detected (NotDetected); Coronavirus OC43PCR Not Detected (NotDetected); Human Metapneumovirus PCR Not Detected (NotDetected); Influenza A PCR Not Detected (NotDetected); Influenza B PCR Not Detected (NotDetected); Mycoplasma pneumoniae PCR Not Detected (NotDetected); Parainfluenza Virus 1 PCR Not Detected (NotDetected); Parainfluenza Virus 2 PCR Not Detected (NotDetected); Parainfluenza Virus 3 PCR Not Detected (NotDetected); Parainfluenza Virus 4 PCR Not Detected (NotDetected); Respiratory Syncytial VirusPCR Not Detected (NotDetected)
[2022-11-21 16:01] LABS: Rhinovirus/Enterovirus PCR DETECTED (NotDetected)
[2022-11-21] MEDS ORDERED: CALCIUM GLUCONATE 1,000 MG/60 ML BAG IV STA (16:02)
[2022-11-21] MEDS ORDERED: NovoLIN-R INSULIN PER UNIT CHARGE IV STA (16:04)
[2022-11-21] MEDS ORDERED: DEXTROSE 50% 50 ML SYRINGE IV ONE ×2 (16:04→22:30)
--- NOTE | 2022-11-21 16:24 | XRay Report ---
SINGLE VIEW CHEST CLINICAL HISTORY: Dyspnea FINDINGS: An AP, portable, upright chest radiograph is compared to study dated 08/13/2022 and correlat ed with chest CT dated 10/14/2019. The examination is degraded by portable technique and apical lordot ic positioning. The heart is enlarged noting atherosclerotic calcification of the thoracic aorta. The re is mild pulmonary vascular congestion. There is bibasilar scarring/atelectasis. No airspace consol idation or large pleural effusion is identified. No pneumothorax is seen. The skeletal structures are osteopenic. The bony thorax is grossly intact. IMPRESSION: Cardiomegaly with mild pulmonary vascular congestion. ACT 112: Negative or not required by law. Electronically signed by: Kenny Jung M.D. 11/21/2022 4:23 PM
--- NOTE | 2022-11-21 16:43 | History & Physical Report ---
Date of Service November 21, 2022 Assessment & Plan (1) Volume overload: Plan: -Admit to the PCU on tele -Currently afebrile, hemodynamically stable, and stable on RA -Progressive volume overload over the past 2 months, weight today is up approximately 20 lbs since 10/18 -Her volume overload is likely multifactorial including HFpEF, recent endocarditis causing possible worsening of CHF, CKD, Cirrhosis and deconditioning -BNP elevated at 511, this is the highest it has ever been in our system, CXR showing cardiomegaly and pulmonary vascular congestion, with symmetrical LE swelling, LFT's WNL -S/P 40 mg IV lasix in the ED, will continue with 40 mg IV BID for now -Will obtain repeat TTE in the am for further evaluation with her recent endocarditis -Monitor daily weight, intake/output, currently with external cath in place -Due to her immobility and high risk of further DVT's will start Sub-Q heparin at 5000 units BID for now as she cannot be on Lovenox with her renal function. Platelets currently at 111, will need to monitor closely for bleeding >Hold BL SCD's for now until BL LE venous dopplers have resulted and are negative -AM CBC, CMP, Mag, PT/INR (2) Elevated troponin: Plan: -Initial high sen trop elevated at 14 -Patient is without chest pain or acute ECG changes, likely due to demand from CHF -Will repeat a repeat 2 hour trop STAT, continue to monitor on tele (3) Hyperkalemia: Plan: -Noted to be 5.9 today, repeat confirmed -Likely due to still taking spironolactone and lisinopril, there may be some confusion on the patient's end as she was previously told to hold the spironolactone with previous hyperkalemia -S/P calcium gluconate, 40 mg IV lasix, and 5 units IV insulin in the ED -No acute ECG changes -Continue to monitor on tele, continue IV diuresis, repeat potassium ordered for 8 pm -Low potassium diet ordered -Hold spironolactone and lisinopril for now (4) Rhinovirus: Plan: -Positive today in the ED -Stable on RA -Patient notes yellow sputum production, no focal consolidations on CXR -Will add on procal but hold abx for now -Supportive care with Scheduled DuoNebs, prn robitussin, incentive spirometry, flutter therapy -PRN O2 to keep SpO2 at or above 95% (5) PAF (paroxysmal atrial fibrillation): Plan: -Recent history on last admission -Has not been started on anticoagulation due hx of major bleeding -Currently in sinus rhythm today and rate controlled -Hold anticoagulation for now; Cardiology recommends restarting anticoagulation when she is stable from a bleeding risk -Continue propranolol for now, Cardiology is OK with continuing propranolol at this time per their last clinic note (6) Lower leg edema: Plan: -Likely multifactorial including CHF/CKD, deconditioning, and hx of chronic RLE DVT S/P right groin IV filter placement -Low suspicion for infection at this time, will hold abx -Will follow BL venous dopplers prior to ordering BL SCD's for DVT PPX (7) Hypomagnesemia: Plan: -1.5 in the ED, S/P 1 gm IV mag-sulfate -Likely due to poor oral intake and diuretics -Will continue home PO mag for now, monitor am mag level and monitor on tele (8) DVT (deep venous thrombosis): Plan: -Hx of RLE S/P right groin IVC filter placement -Has not been on anticoagulation due to life-threatening GI bleed in the past -RLE is currently erythematous but swelling in the BL LE's is symmetrical -Will obtain repeat BL venous doppler prior to ordering BL SCD's (9) MGUS (monoclonal gammopathy of unknown significance): Plan: -Anemia is currently stable, continue to monitor (10) ROSALES (obstructive sleep apnea): Plan: -HS CPAP ordered (11) Hypercholesterolemia: Plan: -Continue atorvastatin (12) Diabetes mellitus with peripheral vascular disease: Plan: -Hold metformin -Monitor BSG ACHS, goal is 110-140 -Start 5 units lantus BID, CF of 50, CR of 15 -HH, DMII diet with 2 gm sodium restriction and low potassium -Adjust regimen as needed (13) Liver cirrhosis: Plan: -LFT's are stable today -Continue Lactulose -Hold Spironolactone for now with her hyperkalemia Plan The patient was discussed with Dr. Yañez at the time fo the admission History of Present Illness Chief Complaint: Weight gain, LE swelling Primary Care Provider: DO Rosalind Webster is a 76 yo F with PMH recent strep bacteremia and infective endocarditis, new-onset afib, HTN, stage 3 CKD, chronic DVT with IVC filter, aortic stenosis, HFpEF, MGUS, cirrhosis, DM2, HLD, ROSALES on CPAP, chronic back pain who presented to the [facility] ED on 11/21/22 at the recommendation of her PCP for weight gain and BL LE edema. In the ED the patient was found to be afebrile, hemodynamically stable, and stable on RA. Labs were significant for a stable Hgb of 10.4, stable platelets at 111 (up from 99 as of 11/10), leukopenia of 4.14, lymphopenia of 0.94, cr of 1.52 (baseline is near 1.4-1.5 per last Nephro note), potassium of 5.9, mag of 1.5, BNP of 511 (highest to date), initial high sen trop of 14 and entero/rhinovirus positive. Chest xray was read as Cardiomegaly with mild pulmonary vascular congestion.. Prior to admission the patient was given 1 gm IV calcium gluconate, 40 mg IV lasix, 5 units IV regular insulin, and 1 gm IV magnesium. At the time of the exam the patient was sitting in bed in no acute distress with her grandson sitting bedside, history is obtained from both. She states that she has been having ongoing LE swelling and weight gain over the past 2 months. She confirms that she completed her course of Ceftriaxone and her PICC was removed. Over the past 3 days or so she started to develop increased SOB and a productive cough with white-yellow sputum production. She denies recent fever, chills, chest pain, abd pain, nausea, vomiting, dysuria hematuria, melena, diarrhea, and recent trauma. She confirms that her previous DVT's are in the RLE and her IVC filter is still in place. I discussed her medications with her, she states she was still taking the spironolactone and lisinopril despite her recent hyperkalemia. She is taking 40 mg PO lasix in the am and 20 mg PO in the PM. She explains that she was stated on Doxycycline by her PCP on 11/10 due to possible RLE infection, she denies any changes since being on the Doxy. She is still a DNR/DNI. Please refer to Dr. Yañez's attestation for any changes to the treatment plan Allergies Allergy/AdvReac Type Severity Reaction Status Date / Time No Known Allergies Allergy Verified 11/21/22 15:38 Home Medications Medication Instructions Recorded Confirmed Type cholecalciferol (vitamin D3) 50 2,000 unit PO QAM 07/01/18 11/21/22 History mcg (2,000 unit) capsule (Vitamin D3) multivitamin 1 tab PO QAM 10/14/19 11/21/22 History vitamin E 268 mg (400 unit) capsule 400 unit PO QAM 08/14/20 11/21/22 History coenzyme Q10 200 mg capsule 200 mg PO DAILY 11/01/21 11/21/22 History acetaminophen 325 mg tablet 650 mg PO Q4H PRN fever or pain 03/23/22 11/21/22 Rx #30 tabs nystatin 100,000 unit/gram topical 1 applic topical TID PRN rash #60 07/20/22 11/21/22 Rx powder grams atorvastatin 10 mg tablet 10 mg PO HS #90 tabs 09/08/22 11/21/22 Rx food supplemt, lactose-reduced See Rx Instructions PO .COMPLEX 09/08/22 11/21/22 History lactulose 10 gram oral packet 30 g PO BID #540 ea 09/08/22 11/21/22 Rx magnesium chloride 64 mg 128 mg PO TID #540 tabs 09/08/22 11/21/22 Rx (magnesium chloride) tablet,delayed release metformin 500 mg tablet 500 mg PO DAILY #90 tabs 09/08/22 11/21/22 Rx propranolol 10 mg tablet 10 mg PO TID 90 days #270 tabs 09/08/22 11/21/22 Rx spironolactone 25 mg tablet 25 mg PO DAILY #90 tabs 09/08/22 11/21/22 Rx lisinopril 5 mg tablet 5 mg PO DAILY #30 tabs 10/17/22 11/21/22 Rx doxycycline monohydrate 100 mg 100 mg PO BID #28 caps 11/10/22 11/21/22 Rx capsule levothyroxine 75 mcg tablet 75 mcg PO DAILY #90 tabs 11/18/22 11/21/22 Rx furosemide 40 mg tablet (Lasix) See Rx Instructions .Route .COMPLEX 11/21/22 11/21/22 History sodium chloride 1,000 mg soluble 1,000 mg PO DAILY 11/21/22 11/21/22 History tablet witch rodolfo 50 % topical pads 1 pad topical BID PRN Hemorrhoids 11/21/22 11/21/22 History (Hemorrhoidal (witch rodolfo)) Past Med/Surg History Medical History (Updated 11/21/22 @ 17:44 by Tristan Gonzalez PA-C) Anemia Chronic deep vein thrombosis (DVT) Cough Diverticular hemorrhage resolved DVT (deep venous thrombosis) Esophageal varices determined by endoscopy Fever GERD (gastroesophageal reflux disease) GI bleed none at present Hepatic encephalopathy Lactate blood increase Migraine Monoclonal gammopathy Osteoarthritis Presence of IVC filter Pulmonary embolism 2019 > no known cause > Filter to right groin Thrombocytopenia Vertigo Vomiting and diarrhea Weakness Wheezing Surgical History History of bilateral breast reduction surgery History of bilateral cataract extraction History of carpal tunnel release of both wrists History of section x3 History of colonoscopy History of dilatation and curettage History of esophagogastroduodenoscopy (EGD) History of laparoscopic cholecystectomy History of lumbar spinal fusion hardware in place History of tonsillectomy History of tooth extraction all teeth History of total left knee replacement (TKR) History of total right knee replacement (TKR) Family History Mother Family history of diabetes mellitus Brother Family history of diabetes mellitus 3 brothers Colorectal cancer Myocardial infarction x 2 Father Myocardial infarction Denies family history of Ovarian cancer Prostate cancer Breast cancer Social History (Updated 11/21/22 @ 10:53 by Christal Suero LPN) Smoking Status: Unknown if ever smoked Tobacco Type: Cigarettes Age Started Using Tobacco: 15; Age Quit Using Tobacco: 21; Cigarettes Per Day: stopped 55 years ago; Second Hand Exposure: No; Do You Dip or Chew Tobacco: No; Hx Alcohol Use: No Hx Substance Use: No Preferred Language: Georgian Communication Ability: Effective Visual Impairment: Limited Hearing Ability: Normal Axle Bearing Polisher Required: No Beliefs That Will Affect Care: None marital status: / Current Living Situation: Family Current Living Situation Comment: SON AT HOME current occupational status: retired How many Children do You have: 3 Feels Safe at Home: Yes Childhood Exposure to Second-Hand Smoke: Yes Diet: regular caffeine: Yes (tea) during the past year weight has: remained stable Dental Care, Regularly: No Physical Activity Frequency: Does not Exercise Seatbelt Use: always Sunscreen Use: No Do you think of yourself as: straight/heterosexual Gender Identity: Female Assistive Devices: Walker Physical Exam Physical Exam: Physical Exam: General: In no acute distress, stated age, chronically ill appearing HEENT: Normocephalic, atraumatic, no scleral icterus, pupils around round, symmetrical, and reactive to light, moist mucus membranes, trachea midline, no thyromegaly Chest/Pulm: No respiratory distress, symmetrical chest expansion, expiratory wheezing noted throughout Cardiac: RRR, 4/6 systolic murmur noted Abdomen: Negative for ascites and bruising, normoactive bowel sounds, soft, non-tender to palpation throughout Musculoskeletal: Symmetrical and without signs of acute trauma, upper and lower extremities with full ROM, no atrophy, spasticity, or flaccidity Extremities: Radial, dorsalis pedis, and posterior tibial pulses are intact and symmetrical, 3-4+ pitting edema noted in the BL LE's Skin: Patient with erythema located over the anterior aspect of the RLE from the right ankle to the mid linder, currently draining clear fluid and without circumferential erythema Neuro: Alert and oriented to person, place, month, year, and president, no focal defects, CN II-XII tested and intact, finger to nose test negative, no tremors noted Psych: No acute distress, calm and cooperative during the exam Results & Data Results & Data Vital Signs (Past 12 Hours) Vital Signs Temp Pulse Pulse Resp BP BP Pulse Ox 11/21/22 15:53 64 18 98 11/21/22 15:32 60 18 149/91 H 96 11/21/22 13:38 36.8 C 68 174/97 H 99 O2 Del Method 11/21/22 15:53 Room Air 11/21/22 15:32 Room Air 11/21/22 13:38 Room Air Laboratory Results Abnormal lab results 11/21/22 11/21/22 11/21/22 Range/Units 13:48 13:48 13:48 WBC 4.14 L (4.8-10.8) K/ul RBC 3.63 L (4.20-5.40) M/uL Hgb 10.4 L (12.0-16.0) g/dl Hct 33.8 L (37.0-47.0) % MCHC 30.8 L (32.0-36.0) g/dL RDW Std Deviation 74.8 H (36.4-46.3) fL RDW Coeff of Leah 21.7 H (11.5-14.5) % Plt Count 111 L (130-400) K/uL Lymph # (Auto) 0.94 L (1.2-3.4) K/uL Sodium 135 L (136-145) mmol/L Potassium 5.9 H (3.5-5.1) mmol/L Chloride 109 H (98-107) mmol/L BUN 74 H (6-23) mg/dl Creatinine 1.52 H (0.6-1.2) mg/dl BUN/Creatinine Ratio 48.7 H (10-20) Glucose 124 H (70-99(Fasting)) mg/dl Magnesium 1.5 L (1.7-2.4) mg/dl Troponin I High Sens 14.6 H (0-14) pg/ml B-Natriuretic Peptide 511 H (0-100) pg/ml Albumin 2.7 L (3.4-5.0) gm/dl Globulin 5.3 H (2.5-4.0) gm/dl Albumin/Globulin Ratio 0.5 L (0.9-2) Urine Protein (Negative) U Epithel Cells (Auto) (0-5) /lpf Entero/Rhino (PCR) (NotDetected) 11/21/22 11/21/22 11/21/22 Range/Units 14:25 14:35 14:51 WBC (4.8-10.8) K/ul RBC (4.20-5.40) M/uL Hgb (12.0-16.0) g/dl Hct (37.0-47.0) % MCHC (32.0-36.0) g/dL RDW Std Deviation (36.4-46.3) fL RDW Coeff of Leah (11.5-14.5) % Plt Count (130-400) K/uL Lymph # (Auto) (1.2-3.4) K/uL Sodium (136-145) mmol/L Potassium 5.9 H (3.5-5.1) mmol/L Chloride (98-107) mmol/L BUN (6-23) mg/dl Creatinine (0.6-1.2) mg/dl BUN/Creatinine Ratio (10-20) Glucose (70-99(Fasting)) mg/dl Magnesium (1.7-2.4) mg/dl Troponin I High Sens (0-14) pg/ml B-Natriuretic Peptide (0-100) pg/ml Albumin (3.4-5.0) gm/dl Globulin (2.5-4.0) gm/dl Albumin/Globulin Ratio (0.9-2) Urine Protein 2+ H (Negative) U Epithel Cells (Auto) >30 H (0-5) /lpf Entero/Rhino (PCR) DETECTED A* (NotDetected) Diagnostic Findings Chest X-Ray 11/21/22 13:48 SINGLE VIEW CHEST CLINICAL HISTORY: Dyspnea FINDINGS: An AP, portable, upright chest radiograph is compared to study dated 08/13/2022 and correlated with chest CT dated 10/14/2019. The examination is degraded by portable technique and apical lordotic positioning. The heart is enlarged noting atherosclerotic calcification of the thoracic aorta. There is mild pulmonary vascular congestion. There is bibasilar scarring/atelectasis. No airspace consolidation or large pleural effusion is identified. No pneumothorax is seen. The skeletal structures are osteopenic. The bony thorax is grossly intact. IMPRESSION: Cardiomegaly with mild pulmonary vascular congestion. ACT 112: Negative or not required by law. Electronically signed by: Kenny Jung M.D. 11/21/2022 4:23 PM ECG Additional Comments: Sinus bradycardia Right bundle branch block Left anterior fascicular block Bifascicular block Possible Lateral infarct , age undetermined Abnormal ECG When compared with ECG of 20-AUG-2022 08:00, Sinus rhythm has replaced Atrial fibrillation Vent. rate has decreased BY 101 BPM T wave inversion no longer evident in Anterior leads Code Status & VTE Plan Code Status DNR/DNI PG Care Time/CCT Total # of Minutes Spent Total Time Spent with Patient: Total time spent is greater than 50% in coordination of care (as documented) at patient's floor/unit and/or counseling patient: Coding [place] [address] INT INP/OBS CARE 3/75MIN Patient Type Established History Comprehensive Exam Comprehensive Medical Decision Making High Complexity Diagnoses Volume overload E87.70 Elevated troponin R77.8 Hyperkalemia E87.5 Rhinovirus B34.8 PAF (paroxysmal atrial fibrillation) I48.0 Lower leg edema R60.0 Hypomagnesemia E83.42 DVT (deep venous thrombosis) I82.409 MGUS (monoclonal gammopathy of unknown significance) D47.2 ROSALES (obstructive sleep apnea) G47.33 Hypercholesterolemia E78.00 Diabetes mellitus with peripheral vascular disease E11.51 Liver cirrhosis K74.60 Ascites presence: without ascites Hepatic cirrhosis type: unspecified hepatic cirrhosis (13) Liver cirrhosis Ascites presence: without ascites Hepatic cirrhosis type: unspecified hepatic cirrhosis Qualified Code(s): K74.60 - Unspecified cirrhosis of liver
[2022-11-21] MEDS ORDERED: DEXTROSE 50% 50 ML SYRINGE IV PRN (17:41)
[2022-11-21] MEDS ORDERED: GLUCOSE 40% GEL 15 GM TUBE PO PRN (17:41)
[2022-11-21] MEDS ORDERED: GLUCAGON FOR INJ 1 MG VIAL SQ PRN (17:41)
[2022-11-21] MEDS ORDERED: GLUCOSE 10 TAB/TUBE PO PRN (17:41)
[2022-11-21] MEDS: ALBUT/IPRATROP 3MG/0.5MG NEB 3 ML VIAL NEB SCH (19:36)
[2022-11-21] MEDS: INSULIN ASPART PER UNIT CHARGE SC SCH (20:37)
[2022-11-21] MEDS: LACTULOSE SYRUP 30 GM/45 ML UDP PO SCH (20:41)
[2022-11-21] MEDS: ATORVASTATIN 10 MG TAB PO SCH (20:42)
[2022-11-21] MEDS: MAGNESIUM CHLORIDE W/CALCIUM 64MG DELAYED REL TAB PO SCH (20:42)
[2022-11-21] MEDS ORDERED: HEPARIN SOD 5,000 UNIT/0.5 ML VIAL SQ SCH (21:00)
[2022-11-21] MEDS: LANTUS PER UNIT CHARGE SQ SCH (21:21)
[2022-11-21] MEDS ORDERED: STAT IV STA (21:51)
[2022-11-21] MEDS ORDERED: CALCIUM GLUCONATE 10% 1,000 MG in DEXTROSE 5% 50 ML IV ONE (21:51)
[2022-11-21] MEDS ORDERED: SODIUM CHLORIDE 0.9% 1000ML 500 ML IV ONE (22:00)
[2022-11-21] MEDS ORDERED: INSULIN HUMAN REGULAR PER UNIT 5 UNITS in SYRINGE 4.95 ML IV ONE (22:30)
[2022-11-22 01:06] LABS: BUN Creatinine Ratio 48.7 (10-20); Creatinine Clr Calc Pharmacy 35.5 ml/min; Est GFR (African American) 36.2 ml/min; Est GFR (Non-African American) 31.3 ml/min; Potassium 5.2 mmol/L (3.5-5.1)
[2022-11-22 02:16] LABS: BUN Creatinine Ratio 47.5 (10-20); Calcium 8.8 mg/dl (8.6-10.3); Creatinine Clr Calc Pharmacy 34.6 ml/min; Est GFR (African American) 35.2 ml/min; Est GFR (Non-African American) 30.3 ml/min; Potassium 5.8 mmol/L (3.5-5.1)
[2022-11-22 05:08] LABS: BUN Creatinine Ratio 45.6 (10-20); Calcium 8.6 mg/dl (8.6-10.3); Est GFR (African American) 35.7 ml/min; Est GFR (Non-African American) 30.8 ml/min; Magnesium 1.6 mg/dl (1.7-2.4); Potassium 5.5 mmol/L (3.5-5.1)
[2022-11-22] MEDS: CARBOHYDRATES FOR HYPOGLYCEMIA PO PRN ×2 (05:16→05:40)
[2022-11-22 05:27] LABS: INR 1.2 (0.9-1.1); Prothrombin Time 13.4 Seconds (9.0-12.0)
[2022-11-22] MEDS: LEVOTHYROXINE SODIUM 75 MCG TABLET PO SCH (05:40)
[2022-11-22 06:09] LABS: Hematocrit (blood only) 29.9 % (37.0-47.0); Hemoglobin 9.2 g/dl (12.0-16.0); Mean Corpuscular Hemoglobin 28.8 pg (25.0-34.0); Mean Corpuscular Hgb Conc 30.8 g/dL (32.0-36.0); Mean Corpuscular Volume 93.4 fL (80.0-100.0); Mean Platelet Volume 10.6 fL (9.4-12.4); Platelet Count 88 K/uL (130-400); RDW Coefficient of Variation 21.5 % (11.5-14.5); RDW Standard Deviation 74.3 fL (36.4-46.3); White Blood Count 2.81 K/ul (4.8-10.8)
[2022-11-22 06:48] LABS: Anisocytosis Present; Basophils # (auto) 0.02 K/uL (0-0.2); Basophils % (auto) 0.7 %; Eosinophils # (auto) 0.06 K/uL (0-0.50); Eosinophils % (auto) 2.1 %; Immature Granulocytes # (auto) 0.01 K/uL (0.01-0.20); Immature Granulocytes % (auto) 0.4 %; Lymphocytes # (auto) 0.86 K/uL (1.2-3.4); Lymphocytes % (auto) 30.6 %; Monocytes # (auto) 0.31 K/uL (0.11-0.59); Neutrophils # (auto) 1.55 K/uL (1.40-6.50); Neutrophils % (auto) 55.2 %; Polychromasia 1+
[2022-11-22 07:12] LABS: BUN Creatinine Ratio 47.3 (10-20); Calcium 8.6 mg/dl (8.6-10.3); Creatinine Clr Calc Pharmacy 37.6 ml/min; Est GFR (Non-African American) 32.8 ml/min; Potassium 5.6 mmol/L (3.5-5.1)
[2022-11-22] MEDS: ALBUT/IPRATROP 3MG/0.5MG NEB 3 ML VIAL NEB SCH ×4 (07:43→19:03)
[2022-11-22] MEDS: INSULIN ASPART PER UNIT CHARGE SC SCH ×4 (07:51→21:21)
[2022-11-22] MEDS: LACTULOSE SYRUP 30 GM/45 ML UDP PO SCH ×2 (08:20→20:21)
[2022-11-22] MEDS: MAGNESIUM CHLORIDE W/CALCIUM 64MG DELAYED REL TAB PO SCH ×3 (08:20→20:21)
[2022-11-22] MEDS: SODIUM CHLORIDE 1 GM TABLET PO SCH (08:20)
[2022-11-22] MEDS: SODIUM ZIRCONIUM CYCLOSILICATE 10 GM PACKET PO SCH ×3 (08:21→20:22)
[2022-11-22] MEDS: LANTUS PER UNIT CHARGE SQ SCH (08:27)
[2022-11-22 08:36] LABS: BUN Creatinine Ratio 47.7 (10-20); Calcium 8.7 mg/dl (8.6-10.3); Creatinine Clr Calc Pharmacy 37.9 ml/min; Est GFR (African American) 38.3 ml/min; Est GFR (Non-African American) 33.1 ml/min; Potassium 5.5 mmol/L (3.5-5.1)
[2022-11-22] MEDS ORDERED: FUROSEMIDE 40 MG/4 ML VIAL IV SCH (09:00)
--- NOTE | 2022-11-22 10:39 | Ultrasound Report ---
BILATERAL LOWER EXTREMITY VENOUS DOPPLER HISTORY: lower ext swelling/erythmea COMPARISON STUDY: Right leg venous Doppler 07/28/2022. FINDINGS: There is normal compressibility, flow, and augmentation within the left lower extremity albaro p venous system. Chronic thrombus again noted within one of 2 right popliteal veins. Otherwise, the r ight common femoral, superficial femoral, and calf veins appear patent. IMPRESSION: 1. No change in the chronic thrombus within one of 2 right popliteal veins. 2. No acute DVT within the right or left lower extremity. ACT 112: Negative or not required by law. Electronically signed by: Derian Kerns M.D. 11/22/2022 10:38 AM
[2022-11-22 10:49] LABS: BUN Creatinine Ratio 49.7 (10-20); Calcium 8.9 mg/dl (8.6-10.3); Creatinine Clr Calc Pharmacy 36.9 ml/min; Est GFR (African American) 37.1 ml/min; Potassium 5.5 mmol/L (3.5-5.1)
--- NOTE | 2022-11-22 11:15 | Nephrology Consultation ---
Date of Consultation November 22, 2022 Assessment & Plan (1) Acute hyperkalemia: * Stop Lisinopril and Spironolactone * Agree w/ Lokelma 10 mg po TID * Admission ECG is negative for hyperkalemic changes * Start Furosemide 40 mg IV BID for kaliuresis and to correct CHF * Low K diet * Monitor PRP (2) CHF (congestive heart failure): * CXR w/ congestive change * BNP is elevated * Start Furosemide 40 mg IV BID for kaliuresis and to correct CHF * Monitor UO, weight (3) Chronic kidney disease, stage III (moderate): * CKD stage G3b/A (moderate impairment). Baseline Cr 1.4 w/ EGFR 42 cc/min. Renal impairment has been attributed to recurrent hospitalization w/ [facility] due to dehydration * Kidney function is stable at this time * Will order urinalysis w/ microscopy and UPCR History of Present Illness Reason for Consultation: CKD, hyperkalemia Attending Physician: Alicja Vang MD History of Present Illness Ms. Dudley is a 77 year old female who is seen at the request of the [facility] for evaluation of CKD, hyperkalemia. Information for the HPI is obtained from the patient and the medical record and is summarized as follows: Ms. Dudley has CKD stage G3b/A (moderate impairment). Baseline Cr 1.4 w/ EGFR 42 cc/min. Her primary Bottom Bleacher is Dr. Momin. Renal impairment has been attributed to recurrent hospitalization w/ [facility] due to dehydration. 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 As an outpatient Ms. Dudley has required Propranolol, Furosemide, Lisinopril and Spironolactone for BP management. At her 10/13 Nephrology visit Ms. Dudley was noted to be hyperkalemic. Lisinopril and Spironolactone were stopped but patient reports that she has unfortunately remained on the medication. She was referred to the EMD last evening by her PCP for a 20 lb weight gain and tense LE swelling. Admission laboratory studies revealed K 6.1. ECG was sinus bradycardia with [place] 140 msec, no QT prolongation or peaked T-waves. Patient did test positive for rhinovirus and notes that her son has had a "cold". Ms. Dudley reports that she receives meals on wheels at home and tries to follow a low Na diet. Allergies Allergy/AdvReac Type Severity Reaction Status Date / Time No Known Allergies Allergy Verified 11/21/22 15:38 Home Medications Medication Instructions Recorded Confirmed Type cholecalciferol (vitamin D3) 50 2,000 unit PO QAM 07/01/18 11/21/22 History mcg (2,000 unit) capsule (Vitamin D3) multivitamin 1 tab PO QAM 10/14/19 11/21/22 History vitamin E 268 mg (400 unit) capsule 400 unit PO QAM 08/14/20 11/21/22 History coenzyme Q10 200 mg capsule 200 mg PO DAILY 11/01/21 11/21/22 History acetaminophen 325 mg tablet 650 mg PO Q4H PRN fever or pain 03/23/22 11/21/22 Rx #30 tabs nystatin 100,000 unit/gram topical 1 applic topical TID PRN rash #60 07/20/22 11/21/22 Rx powder grams atorvastatin 10 mg tablet 10 mg PO HS #90 tabs 09/08/22 11/21/22 Rx food supplemt, lactose-reduced See Rx Instructions PO .COMPLEX 09/08/22 11/21/22 History lactulose 10 gram oral packet 30 g PO BID #540 ea 09/08/22 11/21/22 Rx magnesium chloride 64 mg 128 mg PO TID #540 tabs 09/08/22 11/21/22 Rx (magnesium chloride) tablet,delayed release metformin 500 mg tablet 500 mg PO DAILY #90 tabs 09/08/22 11/21/22 Rx propranolol 10 mg tablet 10 mg PO TID 90 days #270 tabs 09/08/22 11/21/22 Rx spironolactone 25 mg tablet 25 mg PO DAILY #90 tabs 09/08/22 11/21/22 Rx lisinopril 5 mg tablet 5 mg PO DAILY #30 tabs 10/17/22 11/21/22 Rx doxycycline monohydrate 100 mg 100 mg PO BID #28 caps 11/10/22 11/21/22 Rx capsule levothyroxine 75 mcg tablet 75 mcg PO DAILY #90 tabs 11/18/22 11/21/22 Rx furosemide 40 mg tablet (Lasix) See Rx Instructions .Route .COMPLEX 11/21/22 11/21/22 History sodium chloride 1,000 mg soluble 1,000 mg PO DAILY 11/21/22 11/21/22 History tablet witch rodolfo 50 % topical pads 1 pad topical BID PRN Hemorrhoids 11/21/22 11/21/22 History (Hemorrhoidal (witch rodolfo)) Patient History Medical History Anemia Chronic deep vein thrombosis (DVT) Cough Diverticular hemorrhage resolved DVT (deep venous thrombosis) Esophageal varices determined by endoscopy Fever GERD (gastroesophageal reflux disease) GI bleed none at present Hepatic encephalopathy Lactate blood increase Migraine Monoclonal gammopathy Osteoarthritis Presence of IVC filter Pulmonary embolism 2018 > no known cause > Filter to right groin Thrombocytopenia Vertigo Vomiting and diarrhea Weakness Wheezing Surgical History History of bilateral breast reduction surgery History of bilateral cataract extraction History of carpal tunnel release of both wrists History of section x3 History of colonoscopy History of dilatation and curettage History of esophagogastroduodenoscopy (EGD) History of laparoscopic cholecystectomy History of lumbar spinal fusion hardware in place History of tonsillectomy History of tooth extraction all teeth History of total left knee replacement (TKR) History of total right knee replacement (TKR) Family History Mother Family history of diabetes mellitus Brother Family history of diabetes mellitus 3 brothers Colorectal cancer Myocardial infarction x 2 Father Myocardial infarction Denies family history of Ovarian cancer Prostate cancer Breast cancer Social History Smoking Status: Unknown if ever smoked Tobacco Type: Cigarettes Age Started Using Tobacco: 15; Age Quit Using Tobacco: 21; Cigarettes Per Day: stopped 55 years ago; Second Hand Exposure: No; Do You Dip or Chew Tobacco: No; Hx Alcohol Use: No Hx Substance Use: No Preferred Language: Dutch Communication Ability: Effective Visual Impairment: Limited Hearing Ability: Normal Bridge Teacher Required: No Beliefs That Will Affect Care: None marital status: / Current Living Situation: Family Current Living Situation Comment: SON AT HOME current occupational status: retired How many Children do You have: 3 Other Information That Helps Us Care for You: No Feels Safe at Home: Yes Safety Concerns: Feels Safe At This Time Childhood Exposure to Second-Hand Smoke: Yes Diet: regular caffeine: Yes (tea) during the past year weight has: remained stable Dental Care, Regularly: No Physical Activity Frequency: Does not Exercise Seatbelt Use: always Sunscreen Use: No Do you think of yourself as: straight/heterosexual Gender Identity: Female Assistive Devices: Walker Review of Systems Constitutional: no fever Eyes: no problem reported Ear, Nose, Mouth, Throat: no problem reported Respiratory: + dyspnea Cardiovascular: + edema; no chest pain Gastrointestinal: no abdominal pain, no nausea, no vomiting and no diarrhea/loose stools Genitourinary: no dysuria and no hematuria Physical Exam Constitutional: not in distress Eyes: PERRL, conjunctivae normal, anicteric sclerae ENMT: external ear and nose normal, oropharynx normal Neck: trachea midline, no thyromegaly Respiratory: Auscultation: + rales Cardiovascular: Rate/Rhythm: regular rate and regular rhythm Extremities: + edema (tense bilateral LE swelling) Gastrointestinal (Abdomen): normal bowel sounds, soft, nontender, no hepatosplenomegaly Neurologic: awake; not confused Speech / Cognition: normal speech and normal cognition Results & Data Vital Signs (Past 12 Hours) Vital Signs Temp Pulse Pulse Resp BP Pulse Ox O2 Del Method 11/22/22 10:55 61 18 92 Room Air 11/22/22 10:36 Room Air 11/22/22 08:46 64 11/22/22 07:43 61 18 98 Room Air 11/22/22 03:00 36.3 C L 59 L 18 123/70 100 Room Air 11/21/22 23:59 36.3 C L 62 18 132/74 100 Room Air Laboratory Results Laboratory Tests 03/08/22 07/28/22 10/11/22 07:42 03:27 11:34 Sodium Potassium Chloride Carbon Dioxide BUN Creatinine 1.36 H 1.30 H 1.35 H Glucose Calcium Urine Color Urine Appearance Urine pH Ur Specific [place] Urine Protein Urine Glucose (UA) Urine Ketones Urine Blood Urine RBC (Auto) 11/21/22 11/21/22 11/21/22 13:48 14:25 14:51 Sodium Potassium 5.9 H 5.9 H Chloride Carbon Dioxide BUN Creatinine 1.52 H Glucose Calcium Urine Color Yellow Urine Appearance Clear Urine pH 5.0 Ur Specific [place] 1.017 Urine Protein 2+ H Urine Glucose (UA) Negative Urine Ketones Negative Urine Blood Negative Urine RBC (Auto) 0-4 11/21/22 11/22/22 11/22/22 20:22 00:15 01:47 Sodium Potassium 6.1 H* 5.2 H 5.8 H Chloride Carbon Dioxide BUN Creatinine Glucose Calcium Urine Color Urine Appearance Urine pH Ur Specific [place] Urine Protein Urine Glucose (UA) Urine Ketones Urine Blood Urine RBC (Auto) 11/22/22 11/22/22 11/22/22 04:07 05:56 08:05 Sodium 137 Potassium 5.5 H 5.6 H 5.5 H Chloride 111 H Carbon Dioxide 24 BUN 71 H Creatinine 1.49 H Glucose 61 L Calcium 8.7 Urine Color Urine Appearance Urine pH Ur Specific [place] Urine Protein Urine Glucose (UA) Urine Ketones Urine Blood Urine RBC (Auto) Laboratory Tests 11/22/22 00:15 B-Natriuretic Peptide 613 H Diagnostic Findings 08/14/22 Echocardiogram: Study limited due to body habitus. Moderate , PASP 40 mm Hg 08/14/22 DELFIN: 1-2 mm vegetation on aortic valve 11/21/22 CXR: The heart is enlarged noting atherosclerotic calcification of the thoracic aorta. There is mild pulmonary vascular congestion. There is bibasilar scarring/atelectasis. No airspace consolidation or large pleural effusion is identified. No pneumothorax is seen. The skeletal structures are osteopenic. The bony thorax is grossly intact. 11/22/22 LE venous doppler: 1. No change in the chronic thrombus within one of 2 right popliteal veins. 2. No acute DVT within the right or left lower extremity. PG Care Time/CCT Total # of Minutes Spent Total Time Spent with Patient: Total time spent is greater than 50% in coordination of care (as documented) at patient's floor/unit and/or counseling patient: Coding Level of Care Code 79488 IN/OBS CONSULT LVL 5,80M Diagnoses Acute hyperkalemia E87.5 CHF (congestive heart failure) I50.9 Chronic kidney disease, stage III (moderate) N18.30
--- NOTE | 2022-11-22 11:17 | Medical Student Progress Note ---
Date of Service November 22, 2022 Assessment & Plan (1) Acute on chronic diastolic heart failure: Plan: 1. Acute on chronic HFpEF - Exacerbation likely secondary to rhinovirus infection, as well as preexisting aortic stenosis, afib, chronic anemia, possible increased dietary sodium intake, medication nonadherence (endorses occasionally skipping afternoon diuretic dose) - Weight increased 20 lbs since 10/18, BNP 613 and uptrending, CXR with evidence of pulmonary vascular congestion, LE edema - Need to diurese; S/P 40 mg IV furosemide/Lasix in the ED, will continue with 40 mg IV BID for now - Total Intake, 720 mL. Total Output (via catheter), 2675 mL. Balance, -1955 mL. - Per nephrology, continue furosemide unchanged and continue to monitor urine output/weight 2. Elevated troponin - Troponin I elevated, 14 (no chest pain/EKG changes, likely 2/2 CHF-induced demand) - Continue to monitor on telemetry 3. Electrolyte derangement - Acute hyperkalemia, potassium 5.6 (downtrending), likely due to medication misunderstanding, no hyperkalemic ECG changes on admission, continue to diurese and adhere to low-K diet, re-check levels at 8 PM - Per nephrology, stop Lisinopril and Spironolactone, continue Lokelma 10 mg po TID, initiate furosemide 40 mg IV BID for kaliuresis/CHF, monitor PRP - Hypomagnesemia, magnesium 1.6 (uptrending), likely due to diuretics, will continue to monitor and supplement oral Mg 4. Rhinovirus - Remains stable on room air, O2 PRN to keep SpO2 > 95% - Holding abx in favor of supportive care with DuoNebs, robitussin, incentive spirometry 5. Paroxysmal atrial fibrillation - Rate & rhythm controlled on admission and at time of evaluation - History of life-threatening GI bleed precludes anticoagulation - Per cardiology, continue propranolol and do not initiate anticoagulation at this time 6. Chronic DVTs - LEs swollen, R > L - On heparin subcutaneous 5000 units BID to prevent further DVTs - Platelets at 111K, continue to monitor closely for bleeding risk (thrombocytopenia, low baseline but plt count stable, etiology likely recent viral infection, follow CBC closely) - Bilateral lower extremity venous doppler results negative, plan to start bilateral lower extremity sequential compression devices for DVT prophylaxis 7. MGUS - HgB 9.2, stable, continue to monitor 8. DM with peripheral vascular disease - BID 5 units lantus, HH, DM2 diet with sodium restriction and low potassium 9. Hypercholesterolemia - Continue atorvastatin regimen unchanged Admission and Anticipated Discharge Date Admission Date: November 21, 2022 Supervising Attestation Medical Student Supervision Note: I was personally present during medical student patient encounter and independently interviewed and examined the patient and verified the almanzar history and physical, reviewed labs and image studies, discussed the case with Marylou Castillo and agree with the findings and care plan. 77 y/o F here with 20lb weight gain and worsening leg edema. Comfortable at the edge of bed. heart - regular, JVD +, leg edema ++ with chronic venous stasis changes. Lungs - CTA acute on chronic diastolic HF - suspect sec to difficulty with med compliance. continue IV furosemide, I and O, monitoring renal function. Cirrhosis - likely contributing to fluid overload. holding spironolactone due to hyperK HyperK - should resolved with diuresis. monitor Thrombocytopenia - on admission. possibly from viral infection with rhino virus. recheck stable SQ heparin for DVT proph Subjective HPI: Rosalind is a 76-year-old female with a complex medical history, including recent strep bacteremia and infective endocarditis, new-onset atrial fibrillation, hypertension, stage 3 CKD, chronic deep vein thrombosis, aortic stenosis, heart failure with preserved ejection fraction, monoclonal gammopathy of undetermined significance, cirrhosis, type 2 diabetes, high cholesterol, and obstructive sleep apnea. She presented to the emergency department with a 20-lb weight gain and bilateral lower extremity edema. She was found to be stable on physical examination, with no acute distress and stable vital signs. Her laboratory results showed stable hemoglobin and platelet levels, leukopenia, lymphopenia, elevated creatinine, high potassium and magnesium, elevated BNP, positive enterovirus/rhinovirus, and cardiomegaly with mild pulmonary vascular congestion on chest x-ray. Rosalind reported ongoing lower extremity swelling and weight gain over the past 2 months, as well as increased shortness of breath and productive cough with white-yellow sputum production over the past 3 days. She denied any recent fever, chills, chest pain, abdominal pain, nausea, vomiting, dysuria, hematuria, melena, diarrhea, or recent trauma. She confirmed her medication regimen, including spironolactone, lisinopril, and Lasix, despite recent hyperkalemia. She was started on doxycycline by her primary care provider on November 10 for a possible right lower extremity infection, and denied any changes since starting the medication. Rosalind remains a do not resuscitate/do not intubate status. 11/22/2022: Rosalind reports feeling well this afternoon, she states it is much easier to breathe after getting Lasix in the ED. She feels her leg swelling is improving significantly, and has no other questions or concerns at this time. Review of Systems Constitutional: as per Subjective / HPI, + chills and + weight gain; no fever Eyes: no worsening vision and no problem reported Ear, Nose, Mouth, Throat: no problem reported Respiratory: as per Subjective / HPI, + dyspnea, + dyspnea on exertion, + sputum production and + wheezing Cardiovascular: as per Subjective / HPI, + dyspnea at rest and + edema; no chest pain Gastrointestinal: + diarrhea/loose stools; no vomiting, no change in bowel habits and no change in stools Musculoskeletal: + back pain Neurologic: no problem reported Psychiatric: no problem reported Physical Exam Constitutional: well developed, well nourished and cooperative; no acute distress Eyes: normal visual neely by confrontation; no conjunctival abnormality Neck: normal visual inspection Respiratory: + labored breathing, + cough and able to speak in complete sentences; no respiratory distress Auscultation: + diminished lung sounds and + wheezes Cardiovascular: Rate/Rhythm: regular rhythm and + bradycardic Heart Sounds: + murmur Vessels: normal peripheral pulses Extremities: normal capillary refill, + pedal edema and + edema Musculoskeletal: Extremities: strength 5/5 throughout Neurologic: normal touch/pain/proprioception, moves all extremities and awake; no focal motor deficits Psychiatric: Orientation: alert, oriented to person, oriented to place, oriented to time and cooperative Apperance: + disheveled and appeared stated age Eye Contact: good eye contact Motor Behavior: no abnormal motor movements Speech: normal rate/rhythm/volume of speech Results & Data Vital Signs (Past 12 Hours) Vital Signs Temp Pulse Pulse Resp BP Pulse Ox O2 Del Method 11/22/22 03:00 36.3 C L 59 L 18 123/70 100 Room Air 11/21/22 21:57 52 L 11/21/22 22:00 Room Air 11/21/22 23:59 36.3 C L 62 18 132/74 100 Room Air 11/21/22 19:38 53 L 16 100 Room Air Laboratory Results 11/22/22 11/22/22 11/22/22 12:12 11:23 10:21 WBC RBC Hgb Hct MCV MCH MCHC RDW Std Deviation RDW Coeff of Leah Plt Count MPV Immature Gran % (Auto) Neut % (Auto) Lymph % (Auto) Kinney % (Auto) Eos % (Auto) Baso % (Auto) Neut # (Auto) Lymph # (Auto) Kinney # (Auto) Eos # (Auto) Baso # (Auto) Immature Gran # (Auto) Polychromasia Anisocytosis PT INR Sodium 135 L 136 Potassium 5.3 H 5.5 H Chloride 109 H 109 H Carbon Dioxide 23 24 Anion Gap 3 3 BUN 73 H 76 H Creatinine 1.48 H 1.53 H Est Cr Clr Drug Dosing 38.1 36.9 Est GFR ( Amer) 38.6 37.1 Est GFR (Non-Af Amer) 33.3 32.0 BUN/Creatinine Ratio 49.3 H 49.7 H Glucose 109 H 85 POC Glucose 92 Calcium 8.6 8.9 Magnesium Troponin I High Sens B-Natriuretic Peptide Procalcitonin Urine Color Urine Appearance Urine pH Ur Specific [place] Urine Protein Urine Glucose (UA) Urine Ketones Urine Blood Urine Nitrite Urine Bilirubin Urine Urobilinogen Ur Leukocyte Esterase Urine WBC (Auto) Urine RBC (Auto) U Hyaline Cast (Auto) U Epithel Cells (Auto) Urine Bacteria (Auto) Urine Yeast Adenovirus (PCR) B. pertussis DNA (PCR) B.parapertussis DNA PCR C. pneumoniae DNA (PCR) Coronavirus OC43 (PCR) Coronavirus HKU1 (PCR) Coronavirus 229E (PCR) SARS-CoV-2 (PCR) Coronavirus NL63 (PCR) Human Metapneumovir PCR Influenza Type A (PCR) Influenza Type B (PCR) M. pneumoniae (PCR) Parainfluenza 1 (PCR) Parainfluenza 2 (PCR) Parainfluenza 3 (PCR) Parainfluenza 4 (PCR) RSV (PCR) Entero/Rhino (PCR) 11/22/22 11/22/22 11/22/22 08:05 07:16 06:06 WBC RBC Hgb Hct MCV MCH MCHC RDW Std Deviation RDW Coeff of Leah Plt Count MPV Immature Gran % (Auto) Neut % (Auto) Lymph % (Auto) [place] % (Auto) Eos % (Auto) Baso % (Auto) Neut # (Auto) Lymph # (Auto) [place] # (Auto) Eos # (Auto) Baso # (Auto) Immature Gran # (Auto) Polychromasia Anisocytosis PT INR Sodium 137 Potassium 5.5 H Chloride 111 H Carbon Dioxide 24 Anion Gap 2 L BUN 71 H Creatinine 1.49 H Est Cr Clr Drug Dosing 37.9 Est GFR ( Amer) 38.3 Est GFR (Non-Af Amer) 33.1 BUN/Creatinine Ratio 47.7 H Glucose 61 L POC Glucose 79 96 Calcium 8.7 Magnesium Troponin I High Sens B-Natriuretic Peptide Procalcitonin Urine Color Urine Appearance Urine pH Ur Specific [place] Urine Protein Urine Glucose (UA) Urine Ketones Urine Blood Urine Nitrite Urine Bilirubin Urine Urobilinogen Ur Leukocyte Esterase Urine WBC (Auto) Urine RBC (Auto) U Hyaline Cast (Auto) U Epithel Cells (Auto) Urine Bacteria (Auto) Urine Yeast Adenovirus (PCR) B. pertussis DNA (PCR) B.parapertussis DNA PCR C. pneumoniae DNA (PCR) Coronavirus OC43 (PCR) Coronavirus HKU1 (PCR) Coronavirus 229E (PCR) SARS-CoV-2 (PCR) Coronavirus NL63 (PCR) Human Metapneumovir PCR Influenza Type A (PCR) Influenza Type B (PCR) M. pneumoniae (PCR) Parainfluenza 1 (PCR) Parainfluenza 2 (PCR) Parainfluenza 3 (PCR) Parainfluenza 4 (PCR) RSV (PCR) Entero/Rhino (PCR) 11/22/22 11/22/22 11/22/22 05:56 05:37 05:11 WBC RBC Hgb Hct MCV MCH MCHC RDW Std Deviation RDW Coeff of Leah Plt Count MPV Immature Gran % (Auto) Neut % (Auto) Lymph % (Auto) [place] % (Auto) Eos % (Auto) Baso % (Auto) Neut # (Auto) Lymph # (Auto) [place] # (Auto) Eos # (Auto) Baso # (Auto) Immature Gran # (Auto) Polychromasia Anisocytosis PT INR Sodium 137 Potassium 5.6 H Chloride 110 H Carbon Dioxide 24 Anion Gap 3 BUN 71 H Creatinine 1.50 H Est Cr Clr Drug Dosing 37.6 Est GFR ( Amer) 38.0 Est GFR (Non-Af Amer) 32.8 BUN/Creatinine Ratio 47.3 H Glucose 76 POC Glucose 66 L* 54 L* Calcium 8.6 Magnesium Troponin I High Sens B-Natriuretic Peptide Procalcitonin Urine Color Urine Appearance Urine pH Ur Specific [place] Urine Protein Urine Glucose (UA) Urine Ketones Urine Blood Urine Nitrite Urine Bilirubin Urine Urobilinogen Ur Leukocyte Esterase Urine WBC (Auto) Urine RBC (Auto) U Hyaline Cast (Auto) U Epithel Cells (Auto) Urine Bacteria (Auto) Urine Yeast Adenovirus (PCR) B. pertussis DNA (PCR) B.parapertussis DNA PCR C. pneumoniae DNA (PCR) Coronavirus OC43 (PCR) Coronavirus HKU1 (PCR) Coronavirus 229E (PCR) SARS-CoV-2 (PCR) Coronavirus NL63 (PCR) Human Metapneumovir PCR Influenza Type A (PCR) Influenza Type B (PCR) M. pneumoniae (PCR) Parainfluenza 1 (PCR) Parainfluenza 2 (PCR) Parainfluenza 3 (PCR) Parainfluenza 4 (PCR) RSV (PCR) Entero/Rhino (PCR) 11/22/22 11/22/22 11/22/22 04:07 04:07 04:07 WBC 2.81 L RBC 3.20 L Hgb 9.2 L Hct 29.9 L MCV 93.4 MCH 28.8 MCHC 30.8 L RDW Std Deviation 74.3 H RDW Coeff of Leah 21.5 H Plt Count 88 L MPV 10.6 Immature Gran % (Auto) 0.4 Neut % (Auto) 55.2 Lymph % (Auto) 30.6 [place] % (Auto) 11.0 Eos % (Auto) 2.1 Baso % (Auto) 0.7 Neut # (Auto) 1.55 Lymph # (Auto) 0.86 L [place] # (Auto) 0.31 Eos # (Auto) 0.06 Baso # (Auto) 0.02 Immature Gran # (Auto) 0.01 Polychromasia 1+ Anisocytosis Present PT 13.4 H INR 1.2 H Sodium 137 Potassium 5.5 H Chloride 110 H Carbon Dioxide 24 Anion Gap 3 BUN 72 H Creatinine 1.58 H Est Cr Clr Drug Dosing 35.0 Est GFR ( Amer) 35.7 Est GFR (Non-Af Amer) 30.8 BUN/Creatinine Ratio 45.6 H Glucose 50 L* POC Glucose Calcium 8.6 Magnesium 1.6 L Troponin I High Sens B-Natriuretic Peptide Procalcitonin Urine Color Urine Appearance Urine pH Ur Specific [place] Urine Protein Urine Glucose (UA) Urine Ketones Urine Blood Urine Nitrite Urine Bilirubin Urine Urobilinogen Ur Leukocyte Esterase Urine WBC (Auto) Urine RBC (Auto) U Hyaline Cast (Auto) U Epithel Cells (Auto) Urine Bacteria (Auto) Urine Yeast Adenovirus (PCR) B. pertussis DNA (PCR) B.parapertussis DNA PCR C. pneumoniae DNA (PCR) Coronavirus OC43 (PCR) Coronavirus HKU1 (PCR) Coronavirus 229E (PCR) SARS-CoV-2 (PCR) Coronavirus NL63 (PCR) Human Metapneumovir PCR Influenza Type A (PCR) Influenza Type B (PCR) M. pneumoniae (PCR) Parainfluenza 1 (PCR) Parainfluenza 2 (PCR) Parainfluenza 3 (PCR) Parainfluenza 4 (PCR) RSV (PCR) Entero/Rhino (PCR) 11/22/22 11/22/22 11/22/22 01:47 00:15 00:15 WBC RBC Hgb Hct MCV MCH MCHC RDW Std Deviation RDW Coeff of Leah Plt Count MPV Immature Gran % (Auto) Neut % (Auto) Lymph % (Auto) [place] % (Auto) Eos % (Auto) Baso % (Auto) Neut # (Auto) Lymph # (Auto) [place] # (Auto) Eos # (Auto) Baso # (Auto) Immature Gran # (Auto) Polychromasia Anisocytosis PT INR Sodium 136 135 L Potassium 5.8 H 5.2 H Chloride 112 H 111 H Carbon Dioxide 25 24 Anion Gap -1 L 0 L BUN 76 H 76 H Creatinine 1.60 H 1.56 H Est Cr Clr Drug Dosing 34.6 35.5 Est GFR ( Amer) 35.2 36.2 Est GFR (Non-Af Amer) 30.3 31.3 BUN/Creatinine Ratio 47.5 H 48.7 H Glucose 63 L 76 POC Glucose Calcium 8.8 9.0 Magnesium Troponin I High Sens B-Natriuretic Peptide 613 H Procalcitonin Urine Color Urine Appearance Urine pH Ur Specific [place] Urine Protein Urine Glucose (UA) Urine Ketones Urine Blood Urine Nitrite Urine Bilirubin Urine Urobilinogen Ur Leukocyte Esterase Urine WBC (Auto) Urine RBC (Auto) U Hyaline Cast (Auto) U Epithel Cells (Auto) Urine Bacteria (Auto) Urine Yeast Adenovirus (PCR) B. pertussis DNA (PCR) B.parapertussis DNA PCR C. pneumoniae DNA (PCR) Coronavirus OC43 (PCR) Coronavirus HKU1 (PCR) Coronavirus 229E (PCR) SARS-CoV-2 (PCR) Coronavirus NL63 (PCR) Human Metapneumovir PCR Influenza Type A (PCR) Influenza Type B (PCR) M. pneumoniae (PCR) Parainfluenza 1 (PCR) Parainfluenza 2 (PCR) Parainfluenza 3 (PCR) Parainfluenza 4 (PCR) RSV (PCR) Entero/Rhino (PCR) 11/21/22 11/21/22 11/21/22 20:22 19:58 17:05 WBC RBC Hgb Hct MCV MCH MCHC RDW Std Deviation RDW Coeff of Leah Plt Count MPV Immature Gran % (Auto) Neut % (Auto) Lymph % (Auto) [place] % (Auto) Eos % (Auto) Baso % (Auto) Neut # (Auto) Lymph # (Auto) [place] # (Auto) Eos # (Auto) Baso # (Auto) Immature Gran # (Auto) Polychromasia Anisocytosis PT INR Sodium Potassium 6.1 H* Chloride Carbon Dioxide Anion Gap BUN Creatinine Est Cr Clr Drug Dosing Est GFR ( Amer) Est GFR (Non-Af Amer) BUN/Creatinine Ratio Glucose POC Glucose 81 Calcium Magnesium Troponin I High Sens B-Natriuretic Peptide Procalcitonin < 0.05 Urine Color Urine Appearance Urine pH Ur Specific [place] Urine Protein Urine Glucose (UA) Urine Ketones Urine Blood Urine Nitrite Urine Bilirubin Urine Urobilinogen Ur Leukocyte Esterase Urine WBC (Auto) Urine RBC (Auto) U Hyaline Cast (Auto) U Epithel Cells (Auto) Urine Bacteria (Auto) Urine Yeast Adenovirus (PCR) B. pertussis DNA (PCR) B.parapertussis DNA PCR C. pneumoniae DNA (PCR) Coronavirus OC43 (PCR) Coronavirus HKU1 (PCR) Coronavirus 229E (PCR) SARS-CoV-2 (PCR) Coronavirus NL63 (PCR) Human Metapneumovir PCR Influenza Type A (PCR) Influenza Type B (PCR) M. pneumoniae (PCR) Parainfluenza 1 (PCR) Parainfluenza 2 (PCR) Parainfluenza 3 (PCR) Parainfluenza 4 (PCR) RSV (PCR) Entero/Rhino (PCR) 11/21/22 11/21/22 11/21/22 17:05 14:51 14:35 WBC RBC Hgb Hct MCV MCH MCHC RDW Std Deviation RDW Coeff of Leah Plt Count MPV Immature Gran % (Auto) Neut % (Auto) Lymph % (Auto) [place] % (Auto) Eos % (Auto) Baso % (Auto) Neut # (Auto) Lymph # (Auto) [place] # (Auto) Eos # (Auto) Baso # (Auto) Immature Gran # (Auto) Polychromasia Anisocytosis PT INR Sodium Potassium 5.9 H Chloride Carbon Dioxide Anion Gap BUN Creatinine Est Cr Clr Drug Dosing Est GFR ( Amer) Est GFR (Non-Af Amer) BUN/Creatinine Ratio Glucose POC Glucose Calcium Magnesium Troponin I High Sens 13.8 B-Natriuretic Peptide Procalcitonin Urine Color Urine Appearance Urine pH Ur Specific [place] Urine Protein Urine Glucose (UA) Urine Ketones Urine Blood Urine Nitrite Urine Bilirubin Urine Urobilinogen Ur Leukocyte Esterase Urine WBC (Auto) Urine RBC (Auto) U Hyaline Cast (Auto) U Epithel Cells (Auto) Urine Bacteria (Auto) Urine Yeast Adenovirus (PCR) Not Detected B. pertussis DNA (PCR) Not Detected B.parapertussis DNA PCR Not Detected C. pneumoniae DNA (PCR) Not Detected Coronavirus OC43 (PCR) Not Detected Coronavirus HKU1 (PCR) Not Detected Coronavirus 229E (PCR) Not Detected SARS-CoV-2 (PCR) Not Detected Coronavirus NL63 (PCR) Not Detected Human Metapneumovir PCR Not Detected Influenza Type A (PCR) Not Detected Influenza Type B (PCR) Not Detected M. pneumoniae (PCR) Not Detected Parainfluenza 1 (PCR) Not Detected Parainfluenza 2 (PCR) Not Detected Parainfluenza 3 (PCR) Not Detected Parainfluenza 4 (PCR) Not Detected RSV (PCR) Not Detected Entero/Rhino (PCR) DETECTED A* 11/21/22 14:25 WBC RBC Hgb Hct MCV MCH MCHC RDW Std Deviation RDW Coeff of Leah Plt Count MPV Immature Gran % (Auto) Neut % (Auto) Lymph % (Auto) [place] % (Auto) Eos % (Auto) Baso % (Auto) Neut # (Auto) Lymph # (Auto) [place] # (Auto) Eos # (Auto) Baso # (Auto) Immature Gran # (Auto) Polychromasia Anisocytosis PT INR Sodium Potassium Chloride Carbon Dioxide Anion Gap BUN Creatinine Est Cr Clr Drug Dosing Est GFR ( Amer) Est GFR (Non-Af Amer) BUN/Creatinine Ratio Glucose POC Glucose Calcium Magnesium Troponin I High Sens B-Natriuretic Peptide Procalcitonin Urine Color Yellow Urine Appearance Clear Urine pH 5.0 Ur Specific [place] 1.017 Urine Protein 2+ H Urine Glucose (UA) Negative Urine Ketones Negative Urine Blood Negative Urine Nitrite Negative Urine Bilirubin Negative Urine Urobilinogen Negative Ur Leukocyte Esterase Negative Urine WBC (Auto) 1-5 Urine RBC (Auto) 0-4 U Hyaline Cast (Auto) 1-5 U Epithel Cells (Auto) >30 H Urine Bacteria (Auto) Negative Urine Yeast Not Reportable Adenovirus (PCR) B. pertussis DNA (PCR) B.parapertussis DNA PCR C. pneumoniae DNA (PCR) Coronavirus OC43 (PCR) Coronavirus HKU1 (PCR) Coronavirus 229E (PCR) SARS-CoV-2 (PCR) Coronavirus NL63 (PCR) Human Metapneumovir PCR Influenza Type A (PCR) Influenza Type B (PCR) M. pneumoniae (PCR) Parainfluenza 1 (PCR) Parainfluenza 2 (PCR) Parainfluenza 3 (PCR) Parainfluenza 4 (PCR) RSV (PCR) Entero/Rhino (PCR) Diagnostic Findings Chest X-Ray 11/21/22 13:48 SINGLE VIEW CHEST CLINICAL HISTORY: Dyspnea FINDINGS: An AP, portable, upright chest radiograph is compared to study dated 08/13/2022 and correlated with chest CT dated 10/14/2019. The examination is degraded by portable technique and apical lordotic positioning. The heart is enlarged noting atherosclerotic calcification of the thoracic aorta. There is mild pulmonary vascular congestion. There is bibasilar scarring/atelectasis. No airspace consolidation or large pleural effusion is identified. No pneumothorax is seen. The skeletal structures are osteopenic. The bony thorax is grossly intact. IMPRESSION: Cardiomegaly with mild pulmonary vascular congestion. ACT 112: Negative or not required by law. Electronically signed by: Kenny Jung M.D. 11/21/2022 4:23 PM Venous Doppler Study 11/22/22 17:38 BILATERAL LOWER EXTREMITY VENOUS DOPPLER HISTORY: lower ext swelling/erythmea COMPARISON STUDY: Right leg venous Doppler 07/28/2022. FINDINGS: There is normal compressibility, flow, and augmentation within the left lower extremity deep venous system. Chronic thrombus again noted within one of 2 right popliteal veins. Otherwise, the right common femoral, superficial femoral, and calf veins appear patent. IMPRESSION: 1. No change in the chronic thrombus within one of 2 right popliteal veins. 2. No acute DVT within the right or left lower extremity. ACT 112: Negative or not required by law. Electronically signed by: Derian Kerns M.D. 11/22/2022 10:38 AM Medications Administered Albuterol (Albut/Ipratrop 3mg/0.5mg Neb 3 Ml Vial) 3 ml NEB QIDR ARMANDO; Protocol Stop: 12/21/22 18:59 Last Admin: 11/22/22 10:55 Dose: 3 ml Documented By: Admin: 11/22/22 07:43 Dose: 3 ml Documented By: Admin: 11/21/22 19:36 Dose: 3 ml Documented By: ZONIA Atorvastatin Calcium (Atorvastatin 10 Mg Tab) 10 mg PO HS [facility] Stop: 12/21/22 20:59 Last Admin: 11/21/22 20:42 Dose: 10 mg Documented By: [id number] Furosemide (Furosemide 40 Mg/4 Ml Vial) 40 mg IV [id number] ARMANDO Stop: 12/22/22 08:59 Last Admin: 11/22/22 08:27 Dose: 40 mg Documented By: PITA Insulin Aspart (Insulin Aspart Per Unit Charge) 0 units SC ACHS ARMANDO Stop: 12/21/22 20:59 Last Admin: 11/22/22 11:41 Dose: Not Given Documented By: Admin: 11/22/22 07:51 Dose: Not Given Documented By: Admin: 11/21/22 20:37 Dose: Not Given Documented By: [id number] Lactulose (Lactulose Syrup 30 Gm/45 Ml Udp) 30 gm PO BID ARMANDO Stop: 12/21/22 20:59 Last Admin: 11/22/22 08:20 Dose: 30 gm Documented By: Admin: 11/21/22 20:41 Dose: 30 gm Documented By: [id number] Levothyroxine Sodium (Levothyroxine Sodium 75 Mcg Tablet) 75 mcg PO DAILYBB [facility] Stop: 12/22/22 06:29 Last Admin: 11/22/22 05:40 Dose: 75 mcg Documented By: [id number] Magnesium Chloride (Magnesium Chloride W/Calcium 64mg Delayed Rel Tab) 128 mg PO TID [facility] Stop: 12/21/22 20:59 Last Admin: 11/22/22 13:24 Dose: 128 mg Documented By: Admin: 11/22/22 08:20 Dose: 128 mg Documented By: Admin: 11/21/22 20:42 Dose: 128 mg Documented By: [id number] Miscellaneous (Carbohydrates For Hypoglycemia ) 15 - 30 gm PO UD PRN PRN Reason: Hypoglycemia Protocol Stop: 12/21/22 17:40 Last Admin: 11/22/22 05:40 Dose: 15 gm Documented By: [id number] Admin: 11/22/22 05:16 Dose: 15 gm Documented By: [id number] Sodium Chloride (Sodium Chloride 1 Gm Tablet) 1 gm PO DAILY ARMANDO Stop: 12/22/22 08:59 Last Admin: 11/22/22 08:20 Dose: 1 gm Documented By: PITA Sodium Zirconium Cyclosilicate (Sodium Zirconium Cyclosilicate 10 Gm Packet) 10 gm PO TID [facility] Stop: 11/23/22 21:01 Last Admin: 11/22/22 13:24 Dose: 10 gm Documented By: Admin: 11/22/22 08:21 Dose: 10 gm Documented By: PITA
[2022-11-22 12:52] LABS: BUN Creatinine Ratio 49.3 (10-20); Calcium 8.6 mg/dl (8.6-10.3); Creatinine Clr Calc Pharmacy 38.1 ml/min; Est GFR (African American) 38.6 ml/min; Est GFR (Non-African American) 33.3 ml/min; Potassium 5.3 mmol/L (3.5-5.1)
--- NOTE | 2022-11-22 16:06 | XCELERA ---
[id number] [id number]
[2022-11-22 17:57] LABS: BUN Creatinine Ratio 45.1 (10-20); Calcium 8.5 mg/dl (8.6-10.3); Creatinine Clr Calc Pharmacy 34.4 ml/min; Est GFR (African American) 34.1 ml/min; Est GFR (Non-African American) 29.4 ml/min; Potassium 5.1 mmol/L (3.5-5.1)
[2022-11-22 18:15] LABS: Appearance Urine Clear (Clear); Bacteria Urine Automated Negative (Negative); Bilirubin Urine Negative (Negative); Blood Urine 3+ (Negative); Color Urine Yellow; Glucose Urine UA Negative (Negative); Ketones Urine Negative (Negative); Leukocyte Esterase Urine Trace (Negative); Nitrite Urine Negative (Negative); Protein Urine Negative (Negative); RBC Urine Automated >30 /hpf (0-4); Specific Gravity Urine 1.011 (1.000-1.030); Urobilinogen Urine Negative (Negative)
[2022-11-22 18:33] LABS: Total Protein Urine Random 16.8 mg/dl (0-11.9)
[2022-11-22 18:39] LABS: Protein Creatinine Ratio Urine 0.5 (0-0.2)
--- NOTE | 2022-11-22 18:55 | Electrocardiogram Report ---
Test Reason : Blood Pressure : / mmHG Vent. Rate : 055 BPM Atrial Rate : 055 BPM P-R Int : 140 ms QRS Dur : 142 ms QT Int : 460 ms P-R-T Axes : 067 -45 028 degrees QTc Int : 440 ms Sinus bradycardia Right bundle branch block Left anterior fascicular block Bifascicular block Possible Lateral infarct , age undetermined Abnormal ECG When compared with ECG of 20-AUG-2022 08:00, Sinus rhythm has replaced Atrial fibrillation Vent. rate has decreased BY 101 BPM T wave inversion no longer evident in Anterior leads Confirmed by Raul Terrazas ([id number]) on 11/22/2022 6:55:08 PM Referred By: Franko Monk Confirmed By:Raul Terrazas
[2022-11-22] MEDS: HEPARIN SOD 5,000 UNIT/0.5 ML VIAL SQ SCH (20:21)
[2022-11-22] MEDS: ATORVASTATIN 10 MG TAB PO SCH (20:21)
[2022-11-22] MEDS ORDERED: OPTIRAY 320 500ml IV ONE (21:00)
--- NOTE | 2022-11-22 21:47 | CT Scan Report ---
Exam(s): CTA CHEST IV Amt: 113ml optiray 320 EXAM: CT Angiography Chest With Intravenous Contrast CLINICAL HISTORY: Reason for exam: PE. TECHNIQUE: Axial computed tomographic angiography images of the chest with intravenous contrast. CTDI is 33.25 mGy and DLP is 984.85 mGy-cm. Automated exposure control was utilized for the study. A dose lowering technique was utilized adhering to the principles of ALARA. MIP reconstructed images were created and reviewed. COMPARISON: No relevant prior studies available. FINDINGS: Pulmonary arteries: No acute pulmonary embolism. Aorta: Atherosclerotic changes of the aorta. No thoracic aortic aneurysm. Lungs: Unremarkable. No mass. No consolidation. Pleural space: Unremarkable. No focal infiltrate, pleural effusion or pneumothorax. Heart: Cardiomegaly. No significant pericardial effusion. No evidence of RV dysfunction. Bones/joints: Degenerative changes of the spine. No acute fracture. No dislocation. Soft tissues: Anasarca. Hepatic cirrhosis. Abdominal ascites. Cholecystectomy. Lymph nodes: Unremarkable. No enlarged lymph nodes. IMPRESSION: 1. No acute pulmonary embolism. 2. No focal infiltrate, pleural effusion or pneumothorax. 3. Anasarca. Hepatic cirrhosis. Abdominal ascites. Cholecystectomy. Electronically signed by: Jon Rizvi MD 11/22/22 21:46 PM
[2022-11-23 00:04] LABS: BUN Creatinine Ratio 41.7 (10-20); Calcium 8.3 mg/dl (8.6-10.3); Creatinine Clr Calc Pharmacy 32.2 ml/min; Est GFR (African American) 31.5 ml/min; Est GFR (Non-African American) 27.2 ml/min; Potassium 4.8 mmol/L (3.5-5.1)
[2022-11-23] MEDS: LEVOTHYROXINE SODIUM 75 MCG TABLET PO SCH (06:07)
[2022-11-23 06:27] LABS: Basophils # (auto) 0.02 K/uL (0-0.2); Basophils % (auto) 0.7 %; Eosinophils # (auto) 0.07 K/uL (0-0.50); Eosinophils % (auto) 2.3 %; Hematocrit (blood only) 27.4 % (37.0-47.0); Hemoglobin 8.6 g/dl (12.0-16.0); Lymphocytes # (auto) 1.07 K/uL (1.2-3.4); Lymphocytes % (auto) 35.7 %; Mean Corpuscular Hgb Conc 31.4 g/dL (32.0-36.0); Mean Corpuscular Volume 92.3 fL (80.0-100.0); Mean Platelet Volume 10.3 fL (9.4-12.4); Monocytes # (auto) 0.35 K/uL (0.11-0.59); Monocytes % (auto) 11.7 %; Neutrophils # (auto) 1.49 K/uL (1.40-6.50); Neutrophils % (auto) 49.6 %; Platelet Count 78 K/uL (130-400); RDW Coefficient of Variation 21.6 % (11.5-14.5); RDW Standard Deviation 74.4 fL (36.4-46.3); Red Blood Count 2.97 M/uL (4.20-5.40)
[2022-11-23 06:46] LABS: BUN Creatinine Ratio 45.2 (10-20); Calcium 8.1 mg/dl (8.6-10.3); Creatinine Clr Calc Pharmacy 35.8 ml/min; Magnesium 1.4 mg/dl (1.7-2.4); Potassium 4.5 mmol/L (3.5-5.1)
[2022-11-23 06:52] LABS: INR 1.3 (0.9-1.1)
[2022-11-23 06:54] LABS: Anisocytosis Present; Polychromasia 1+; Target Cells 1+
[2022-11-23] MEDS: ALBUT/IPRATROP 3MG/0.5MG NEB 3 ML VIAL NEB SCH ×4 (06:59→19:24)
[2022-11-23] MEDS: INSULIN ASPART PER UNIT CHARGE SC SCH ×4 (07:14→20:16)
--- NOTE | 2022-11-23 07:53 | Medical Student Progress Note ---
Date of Service November 23, 2022 Assessment & Plan (1) Acute on chronic diastolic heart failure: Plan: 1. Acute right-sided HF - May be secondary to RV DC, chronic ROSALES, pulmonary HTN, obesity hypoventilation syndrome. Diagnostic evaluation has been inconclusive thus far. - Cardiology consulted for further evaluation of acute RHF etiology, recommendations pending. - Total intake 250 mL, total output 2750 mL, balance -2500 mL. Weight 123.3 kg today, 124.1 kg yesterday. - Continue IV furosemide 40 mg IV BID. Continue to monitor I & O, weight, renal function. 2. Electrolyte derangement - Acute hyperkalemia now resolved, potassium 4.5 today. - Stop Lokelma per nephrology. - Continue to diurese and adhere to a low-K diet. - Hypomagnesemia, magnesium 1.4, likely due to diuretics, will continue to monitor and supplement oral Mg. 3. Rhinovirus - Remains stable (SPO2 97% most recently) on room air, supplemental O2 PRN to keep SpO2 > 95% - Holding abx in favor of supportive care with DuoNebs, Robitussin, incentive spirometry 4. Paroxysmal atrial fibrillation - Rate & rhythm remain controlled. - History of life-threatening GI bleed precludes anticoagulation. - SCDs for clot prevention. 5. Acute on chronic liver cirrhosis - Potential chronic onset of GREGORY, exacerbation may be secondary to RHF. Likely contributing to fluid overload. - Platelets 78, 88 yesterday, despite low baseline continue to monitor closely for bleeding risk - Continue propranolol for varicosities. - Consider screening for HCC, hepatitis A immunization, other preventative care as indicated. 6. Chronic DVTs - On heparin subcutaneous 5000 units BID and SCDs to prevent further DVTs 7. MGUS - HgB 8.6 today, 9.2 yesterday - Baseline chronically low, continue to monitor closely 8. DM with peripheral vascular disease - Pharmacy team recommendations should continue with BID 5 units Lantus, HH/DM2 diet with Na restriction and low K 9. Hypercholesterolemia - Continue atorvastatin regimen (10 mg PO HS) unchanged Admission and Anticipated Discharge Date Admission Date: November 21, 2022 Supervising Attestation Medical Student Supervision Note: I was personally present during medical student patient encounter and independently interviewed and examined the patient and verified the almanzar history and physical, reviewed labs and image studies, discussed the case with Marylou Castillo and agree with the findings and care plan. Acute on ?chronic right heart failure - Echo with low normal EF, severe right heart dysfunction. Right side dysfunction - possibly new. consult cardio. continue IV diuresis, I and O, weight checks Cirrhosis with possible decompensation - Known GREGORY etiology. Right heart dysfunction possibly contributing. INR/PT slightly elevated. platelet count lower. anasarca on CT scan. continue diuresis. to consider GI consult after cardio eval. Alfredito Boyer is a 76-year-old female with a complex medical history, including recent strep bacteremia and infective endocarditis, new-onset atrial fibrillation, hypertension, stage 3 CKD, chronic deep vein thrombosis, aortic stenosis, heart failure with preserved ejection fraction, monoclonal gammopathy of undetermined significance, cirrhosis, type 2 diabetes, high cholesterol, and obstructive sleep apnea. She presented to the emergency department with weight gain and bilateral lower extremity edema. Rosalind reported ongoing lower extremity swelling and weight gain over the past two months, as well as increased shortness of breath and productive cough with white-yellow sputum production over the past three days. 11/22/2022: Rosalind reports feeling well this afternoon, she states it is much easier to breathe after getting Lasix in the ED. She feels her leg swelling is improving significantly, and has no other questions or concerns at this time. 11/23/2022: Rosalind slept well overnight and rested comfortably at assessment. She would like to speak with physical therapy to determine if she is fit to return home upon discharge or needs to attend physical rehabilitation. Review of Systems Constitutional: as per Subjective / HPI, + chills and + weight gain; no fever Eyes: no worsening vision and no problem reported Ear, Nose, Mouth, Throat: no problem reported Respiratory: as per Subjective / HPI, + dyspnea, + dyspnea on exertion, + sputum production and + wheezing Cardiovascular: as per Subjective / HPI, + dyspnea at rest and + edema; no chest pain Gastrointestinal: + diarrhea/loose stools; no vomiting, no change in bowel habits and no change in stools Musculoskeletal: + back pain Neurologic: no problem reported Psychiatric: no problem reported Physical Exam Constitutional: well developed, well nourished and cooperative; no acute distress Eyes: normal visual neely by confrontation; no conjunctival abnormality Neck: normal visual inspection Respiratory: able to speak in complete sentences; no respiratory distress Auscultation: + diminished lung sounds and + wheezes Cardiovascular: Rate/Rhythm: regular rate and regular rhythm Heart Sounds: + murmur Vessels: normal peripheral pulses Extremities: normal capillary refill, + pedal edema and + edema Musculoskeletal: Extremities: strength 5/5 throughout Neurologic: moves all extremities and awake; no focal motor deficits Psychiatric: Orientation: alert, oriented to person, oriented to place, oriented to time and cooperative Apperance: + disheveled and appeared stated age Eye Contact: good eye contact Motor Behavior: no abnormal motor movements Speech: normal rate/rhythm/volume of speech Results & Data Vital Signs (Past 12 Hours) Vital Signs Temp Pulse Pulse Resp BP Pulse Ox O2 Del Method 11/23/22 07:00 77 18 95 Room Air 11/23/22 03:15 36.6 C 75 20 98/62 L 96 Room Air 11/23/22 00:35 81 11/22/22 23:04 36.3 C L 80 20 124/69 96 Room Air 11/22/22 22:02 Room Air 11/22/22 19:48 36.4 C L 72 18 145/83 H 100 Room Air Laboratory Results 11/23/22 11/23/22 11/23/22 06:57 05:49 05:49 WBC RBC Hgb Hct MCV MCH MCHC RDW Std Deviation RDW Coeff of Leah Plt Count MPV Immature Gran % (Auto) Neut % (Auto) Lymph % (Auto) [place] % (Auto) Eos % (Auto) Baso % (Auto) Neut # (Auto) Lymph # (Auto) [place] # (Auto) Eos # (Auto) Baso # (Auto) Immature Gran # (Auto) Polychromasia Anisocytosis Target Cells PT 14.0 H INR 1.3 H Sodium 138 Potassium 4.5 Chloride 109 H Carbon Dioxide 25 Anion Gap 4 BUN 71 H Creatinine 1.57 H Est Cr Clr Drug Dosing 35.8 Est GFR ( Amer) 36.0 Est GFR (Non-Af Amer) 31.0 BUN/Creatinine Ratio 45.2 H Glucose 64 L POC Glucose 83 Calcium 8.1 L Magnesium 1.4 L Urine Color Urine Appearance Urine pH Ur Specific [place] Urine Protein Urine Glucose (UA) Urine Ketones Urine Blood Urine Nitrite Urine Bilirubin Urine Urobilinogen Ur Leukocyte Esterase Urine WBC (Auto) Urine RBC (Auto) U Hyaline Cast (Auto) U Epithel Cells (Auto) Urine Bacteria (Auto) Ur Random Creatinine U Random Total Protein Protein/Creatinin Ratio 11/23/22 11/22/22 11/22/22 05:49 Unknown Unknown WBC 3.00 L RBC 2.97 L Hgb 8.6 L Hct 27.4 L MCV 92.3 MCH 29.0 MCHC 31.4 L RDW Std Deviation 74.4 H RDW Coeff of Leah 21.6 H Plt Count 78 L MPV 10.3 Immature Gran % (Auto) 0.0 Neut % (Auto) 49.6 Lymph % (Auto) 35.7 [place] % (Auto) 11.7 Eos % (Auto) 2.3 Baso % (Auto) 0.7 Neut # (Auto) 1.49 Lymph # (Auto) 1.07 L [place] # (Auto) 0.35 Eos # (Auto) 0.07 Baso # (Auto) 0.02 Immature Gran # (Auto) 0.00 L Polychromasia 1+ Anisocytosis Present Target Cells 1+ PT INR Sodium Potassium Chloride Carbon Dioxide Anion Gap BUN Creatinine Est Cr Clr Drug Dosing Est GFR ( Amer) Est GFR (Non-Af Amer) BUN/Creatinine Ratio Glucose POC Glucose Calcium Magnesium Urine Color Yellow Urine Appearance Clear Urine pH 5.0 Ur Specific [place] 1.011 Urine Protein Negative Urine Glucose (UA) Negative Urine Ketones Negative Urine Blood 3+ H Urine Nitrite Negative Urine Bilirubin Negative Urine Urobilinogen Negative Ur Leukocyte Esterase Trace H Urine WBC (Auto) 1-5 Urine RBC (Auto) >30 H U Hyaline Cast (Auto) 1-5 U Epithel Cells (Auto) 5-10 H Urine Bacteria (Auto) Negative Ur Random Creatinine 36.0 U Random Total Protein 16.8 H Protein/Creatinin Ratio 0.5 H 11/22/22 11/22/22 11/22/22 22:48 21:15 17:16 WBC RBC Hgb Hct MCV MCH MCHC RDW Std Deviation RDW Coeff of Leah Plt Count MPV Immature Gran % (Auto) Neut % (Auto) Lymph % (Auto) [place] % (Auto) Eos % (Auto) Baso % (Auto) Neut # (Auto) Lymph # (Auto) [place] # (Auto) Eos # (Auto) Baso # (Auto) Immature Gran # (Auto) Polychromasia Anisocytosis Target Cells PT INR Sodium 136 135 L Potassium 4.8 5.1 Chloride 107 108 H Carbon Dioxide 24 24 Anion Gap 5 3 BUN 73 H 74 H Creatinine 1.75 H 1.64 H Est Cr Clr Drug Dosing 32.2 34.4 Est GFR ( Amer) 31.5 34.1 Est GFR (Non-Af Amer) 27.2 29.4 BUN/Creatinine Ratio 41.7 H 45.1 H Glucose 106 H 97 POC Glucose 80 Calcium 8.3 L 8.5 L Magnesium Urine Color Urine Appearance Urine pH Ur Specific [place] Urine Protein Urine Glucose (UA) Urine Ketones Urine Blood Urine Nitrite Urine Bilirubin Urine Urobilinogen Ur Leukocyte Esterase Urine WBC (Auto) Urine RBC (Auto) U Hyaline Cast (Auto) U Epithel Cells (Auto) Urine Bacteria (Auto) Ur Random Creatinine U Random Total Protein Protein/Creatinin Ratio 11/22/22 11/22/22 11/22/22 15:57 12:12 11:23 WBC RBC Hgb Hct MCV MCH MCHC RDW Std Deviation RDW Coeff of Leah Plt Count MPV Immature Gran % (Auto) Neut % (Auto) Lymph % (Auto) [place] % (Auto) Eos % (Auto) Baso % (Auto) Neut # (Auto) Lymph # (Auto) [place] # (Auto) Eos # (Auto) Baso # (Auto) Immature Gran # (Auto) Polychromasia Anisocytosis Target Cells PT INR Sodium 135 L Potassium 5.3 H Chloride 109 H Carbon Dioxide 23 Anion Gap 3 BUN 73 H Creatinine 1.48 H Est Cr Clr Drug Dosing 38.1 Est GFR ( Amer) 38.6 Est GFR (Non-Af Amer) 33.3 BUN/Creatinine Ratio 49.3 H Glucose 109 H POC Glucose 107 H 92 Calcium 8.6 Magnesium Urine Color Urine Appearance Urine pH Ur Specific [place] Urine Protein Urine Glucose (UA) Urine Ketones Urine Blood Urine Nitrite Urine Bilirubin Urine Urobilinogen Ur Leukocyte Esterase Urine WBC (Auto) Urine RBC (Auto) U Hyaline Cast (Auto) U Epithel Cells (Auto) Urine Bacteria (Auto) Ur Random Creatinine U Random Total Protein Protein/Creatinin Ratio 11/22/22 11/22/22 10:21 08:05 WBC RBC Hgb Hct MCV MCH MCHC RDW Std Deviation RDW Coeff of Leah Plt Count MPV Immature Gran % (Auto) Neut % (Auto) Lymph % (Auto) [place] % (Auto) Eos % (Auto) Baso % (Auto) Neut # (Auto) Lymph # (Auto) [place] # (Auto) Eos # (Auto) Baso # (Auto) Immature Gran # (Auto) Polychromasia Anisocytosis Target Cells PT INR Sodium 136 137 Potassium 5.5 H 5.5 H Chloride 109 H 111 H Carbon Dioxide 24 24 Anion Gap 3 2 L BUN 76 H 71 H Creatinine 1.53 H 1.49 H Est Cr Clr Drug Dosing 36.9 37.9 Est GFR ( Amer) 37.1 38.3 Est GFR (Non-Af Amer) 32.0 33.1 BUN/Creatinine Ratio 49.7 H 47.7 H Glucose 85 61 L POC Glucose Calcium 8.9 8.7 Magnesium Urine Color Urine Appearance Urine pH Ur Specific [place] Urine Protein Urine Glucose (UA) Urine Ketones Urine Blood Urine Nitrite Urine Bilirubin Urine Urobilinogen Ur Leukocyte Esterase Urine WBC (Auto) Urine RBC (Auto) U Hyaline Cast (Auto) U Epithel Cells (Auto) Urine Bacteria (Auto) Ur Random Creatinine U Random Total Protein Protein/Creatinin Ratio Diagnostic Findings Chest CTA 11/22/22 16:29 Exam(s): CTA CHEST IV Amt: 113ml optiray 320 EXAM: CT Angiography Chest With Intravenous Contrast CLINICAL HISTORY: Reason for exam: PE. TECHNIQUE: Axial computed tomographic angiography images of the chest with intravenous contrast. CTDI is 33.25 mGy and DLP is 984.85 mGy-cm. Automated exposure control was utilized for the study. A dose lowering technique was utilized adhering to the principles of ALARA. MIP reconstructed images were created and reviewed. COMPARISON: No relevant prior studies available. FINDINGS: Pulmonary arteries: No acute pulmonary embolism. Aorta: Atherosclerotic changes of the aorta. No thoracic aortic aneurysm. Lungs: Unremarkable. No mass. No consolidation. Pleural space: Unremarkable. No focal infiltrate, pleural effusion or pneumothorax. Heart: Cardiomegaly. No significant pericardial effusion. No evidence of RV dysfunction. Bones/joints: Degenerative changes of the spine. No acute fracture. No dislocation. Soft tissues: Anasarca. Hepatic cirrhosis. Abdominal ascites. Cholecystectomy. Lymph nodes: Unremarkable. No enlarged lymph nodes. IMPRESSION: 1. No acute pulmonary embolism. 2. No focal infiltrate, pleural effusion or pneumothorax. 3. Anasarca. Hepatic cirrhosis. Abdominal ascites. Cholecystectomy. Electronically signed by: Jon Rizvi MD 05/02/23 21:46 PM Medications Administered Albuterol (Albut/Ipratrop 3mg/0.5mg Neb 3 Ml Vial) 3 ml NEB QIDR ARMANDO; Protocol Atorvastatin Calcium (Atorvastatin 10 Mg Tab) 10 mg PO HS ARMANDO Heparin Sodium (Porcine) (Heparin Sod 5,000 Unit/0.5 Ml Vial) 5,000 units SQ Q12 ARMANDO Insulin Aspart (Insulin Aspart Per Unit Charge) 0 units SC ACHS ARMANDO Lactulose (Lactulose Syrup 30 Gm/45 Ml Udp) 30 gm PO BID ARMANDO Levothyroxine Sodium (Levothyroxine Sodium 75 Mcg Tablet) 75 mcg PO DAILYBB ARMANDO Magnesium Chloride (Magnesium Chloride W/Calcium 64mg Delayed Rel Tab) 128 mg PO TID ARMANDO Miscellaneous (Carbohydrates For Hypoglycemia ) 15 - 30 gm PO UD PRN Sodium Chloride (Sodium Chloride 1 Gm Tablet) 1 gm PO DAILY ARMANDO Sodium Zirconium Cyclosilicate (Sodium Zirconium Cyclosilicate 10 Gm Packet) 10 gm PO TID ARMANDO
[2022-11-23] MEDS: FUROSEMIDE 40 MG/4 ML VIAL IV SCH (08:30)
[2022-11-23] MEDS: MAGNESIUM SULFATE / D5W 1 GM/100 ML BAG IV SCH ×4 (08:30→14:25)
[2022-11-23] MEDS: MAGNESIUM CHLORIDE W/CALCIUM 64MG DELAYED REL TAB PO SCH ×3 (08:38→20:02)
[2022-11-23] MEDS: SODIUM CHLORIDE 1 GM TABLET PO SCH (08:38)
[2022-11-23] MEDS: guaiFENesin SUGAR FREE 200 MG/10 ML UDC PO PRN ×2 (08:39→20:03)
[2022-11-23] MEDS: LACTULOSE SYRUP 30 GM/45 ML UDP PO SCH ×2 (08:39→20:03)
[2022-11-23] MEDS: SODIUM ZIRCONIUM CYCLOSILICATE 10 GM PACKET PO SCH (08:39)
[2022-11-23] MEDS: HEPARIN SOD 5,000 UNIT/0.5 ML VIAL SQ SCH ×2 (08:40→20:02)
--- NOTE | 2022-11-23 08:53 | Nephrology Progress Note ---
Date of Service November 23, 2022 Assessment & Plan (1) Acute hyperkalemia: Plan: * Resolved. Stop Lokelma * Continue low K diet * Monitor PRP (2) CHF (congestive heart failure): Plan: * CXR w/ congestive change * BNP is elevated * Brisk diuresis overnight * Reduce Furosemide 40 mg IV daily * Monitor UO, weight * BP is well controlled. Continue to hold Lisinopril and Spironolactone * Obtain CXR in am (3) Chronic kidney disease, stage III (moderate): Plan: * CKD stage G3b/A (moderate impairment). Baseline Cr 1.4 w/ EGFR 42 cc/min. Renal impairment has been attributed to recurrent hospitalization w/ [facility] due to dehydration * Kidney function is stable at this time * 11/22/22 urinalysis w/ hematuria following Lynn catheter insertion. UPCR low grade at 0.5 Admission and Anticipated Discharge Date Admission Date: November 21, 2022 Subjective Ms. Dudlye was evaluated in her hospital room this morning. She reports that her breathing and her LE swelling are both subjectively improved. She voiced no new medical concerns. Review of Systems Constitutional: no fever Eyes: no problem reported Ear, Nose, Mouth, Throat: no problem reported Respiratory: no dyspnea Cardiovascular: + edema; no chest pain Gastrointestinal: no abdominal pain, no nausea, no vomiting and no diarrhea/loose stools Genitourinary: no dysuria and no hematuria Physical Exam Constitutional: not in distress Eyes: PERRL, conjunctivae normal, anicteric sclerae ENMT: external ear and nose normal, oropharynx normal Neck: trachea midline, no thyromegaly Respiratory: normal respiratory effort, lungs clear to auscultation Cardiovascular: Rate/Rhythm: regular rate and regular rhythm Extremities: + edema (2+ pitting bilateral LE edema) Gastrointestinal (Abdomen): normal bowel sounds, soft, nontender, no hepatosplenomegaly Neurologic: awake; not confused Speech / Cognition: normal speech and normal cognition Results & Data Vital Signs (Past 12 Hours) Vital Signs Temp Pulse Pulse Resp BP Pulse Ox O2 Del Method 11/23/22 07:30 36.5 C 85 18 128/76 97 Room Air 11/23/22 08:08 76 11/23/22 07:00 77 18 95 Room Air 11/23/22 03:15 36.6 C 75 20 98/62 L 96 Room Air 11/23/22 00:35 81 11/22/22 23:04 36.3 C L 80 20 124/69 96 Room Air 11/22/22 22:02 Room Air Laboratory Results Laboratory Tests 11/23/22 11/23/22 05:49 05:49 WBC 3.00 L Hgb 8.6 L Hct 27.4 L Plt Count 78 L Sodium 138 Potassium 4.5 Chloride 109 H Carbon Dioxide 25 BUN 71 H Creatinine 1.57 H Glucose 64 L Calcium 8.1 L Magnesium 1.4 L Laboratory Tests 11/22/22 11/22/22 Unknown Unknown Urine Appearance Clear Ur Specific [place] 1.011 Urine Protein Negative Urine Glucose (UA) Negative Urine Blood 3+ H Urine Nitrite Negative Ur Leukocyte Esterase Trace H Urine RBC (Auto) >30 H Urine Bacteria (Auto) Negative Protein/Creatinin Ratio 0.5 H Diagnostic Findings 11/22/22 Chest CTA: 1. No acute pulmonary embolism. 2. No focal infiltrate, pleural effusion or pneumothorax. 3. Anasarca. Hepatic cirrhosis. Abdominal ascites. Cholecystectomy. PG Care Time/CCT Total # of Minutes Spent Total Time Spent with Patient: Total time spent is greater than 50% in coordination of care (as documented) at patient's floor/unit and/or counseling patient: Coding Level of Care Code 00728 SUB INP/OBS CARE 3/50MIN Diagnoses Acute hyperkalemia E87.5 CHF (congestive heart failure) I50.9 Chronic kidney disease, stage III (moderate) N18.30
--- NOTE | 2022-11-23 18:38 | Cardiology Consultation ---
Date of Consultation November 23, 2022 Assessment & Plan (1) Volume overload: Multiple etiologies. Acute decompensated diastolic heart failure, chronic renal insufficiency, and cor pulmonale. Continue diuresis as tolerated. (2) Cor pulmonale: Echo suggests RV failure with worsening of tricuspid regurgitation and RV function. Suspect she has significant pulmonary hypertension. Likely obstructive sleep apnea and possible chronic pulmonary emboli. She continues with significant right-sided volume overload manifest as JVD, hepatojugular reflux, and lower extremity edema. We will continue to to try to unload her heart with diuresis. We will adjust additional medications as needed. (3) Chronic kidney disease, stage III (moderate): She is making urine. We will continue to monitor as we diurese. Her baseline GFR in April 2022 was on the order of 45-50. Currently she is around 30. Also noted is protein in her urine. Noted to have elevated kappa and lambda light chains. Additional recommendations per nephrology. (4) Rhinovirus: This likely explains her cough and to some degree her shortness of breath. Supportive care. (5) PAF (paroxysmal atrial fibrillation): Review of the monitor demonstrates sometimes she is in atrial fibrillation at other times she is in sinus rhythm. Rare PVCs or pairs. Heart rate has been controlled. Continue beta-mirta and anticoagulation if H&H are stable. I note she did have blood in her stool. (6) Acute on chronic diastolic heart failure: She has some left-sided heart failure with mild interstitial pulmonary edema but no significant pleural effusion. She is far from euvolemic at this time. We will continue diuresis with IV Lasix. She should also be placed back on her oral spironolactone. Hold lisinopril at this time. Her beta-mirta is propranolol given to her for her cirrhosis and ascites. Cardiac soto it would be preferable for her to be on metoprolol succinate ER or carvedilol. At present, she is not appropriate for any of these medications until her heart failure symptoms improved. History of Present Illness Attending Physician: Alicja Vang MD History of Present Illness 77-year-old female whom I have seen in the cardiology office. She has a complex past medical history. Her cardiac history includes grade 2 diastolic dysfunction, heart failure with preserved ejection fraction, RV dilatation with RV systolic dysfunction, mild aortic stenosis, mild to moderate tricuspid regurgitation, and mild to moderate pulmonary hypertension. No history of coronary artery disease. 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 She presented with volume overload and shortness of breath. Patient has been diuresed. Today, she is feeling better. Echocardiogram performed yesterday demonstrated enlarged RV, severely enlarged right atrium, reduced RV function, severe tricuspid regurgitation, low normal left ventricular EF, probable moderate aortic stenosis, mild to moderate mitral regurgitation, pulmonary hypertension, and small hemodynamically insignificant pericardial effusion. There was concern about acute RV failure and possibility of RV infarction or pulmonary embolism given her prior history. However, today I have been able to review her echo from 2013 at which time she had reported severe RV dilatation. Therefore, these findings are likely not acute. Patient does not wear compression stockings at home. I do not see that she is ever undergone sleep study. She does not seem to use a CPAP. She denies any anginal chest pain, syncope, near syncope, PND, racing heartbeat, or palpitations. She does have orthopnea and significant edema. She states today it is better than it had been. However, she notes that it has been weeping and red. She denies any fever at this time. No other complaints or concerns. Allergies Allergy/AdvReac Type Severity Reaction Status Date / Time No Known Allergies Allergy Verified 11/21/22 15:38 Home Medications Medication Instructions Recorded Confirmed Type cholecalciferol (vitamin D3) 50 2,000 unit PO QAM 07/01/18 11/21/22 History mcg (2,000 unit) capsule (Vitamin D3) multivitamin 1 tab PO QAM 10/14/19 11/21/22 History vitamin E 268 mg (400 unit) capsule 400 unit PO QAM 08/14/20 11/21/22 History coenzyme Q10 200 mg capsule 200 mg PO DAILY 11/01/21 11/21/22 History acetaminophen 325 mg tablet 650 mg PO Q4H PRN fever or pain 03/23/22 11/21/22 Rx #30 tabs nystatin 100,000 unit/gram topical 1 applic topical TID PRN rash #60 07/20/22 0 11/21/22 Rx powder grams atorvastatin 10 mg tablet 10 mg PO HS #90 tabs 09/08/22 11/21/22 Rx food supplemt, lactose-reduced See Rx Instructions PO .COMPLEX 09/08/22 11/21/22 History lactulose 10 gram oral packet 30 g PO BID #540 ea 09/08/22 11/21/22 Rx magnesium chloride 64 mg 128 mg PO TID #540 tabs 09/08/22 11/21/22 Rx (magnesium chloride) tablet,delayed release metformin 500 mg tablet 500 mg PO DAILY #90 tabs 09/08/22 11/21/22 Rx propranolol 10 mg tablet 10 mg PO TID 90 days #270 tabs 09/08/22 11/21/22 Rx spironolactone 25 mg tablet 25 mg PO DAILY #90 tabs 09/08/22 11/21/22 Rx lisinopril 5 mg tablet 5 mg PO DAILY #30 tabs 10/17/22 11/21/22 Rx doxycycline monohydrate 100 mg 100 mg PO BID #28 caps 11/10/22 11/21/22 Rx capsule levothyroxine 75 mcg tablet 75 mcg PO DAILY #90 tabs 11/18/22 11/21/22 Rx furosemide 40 mg tablet (Lasix) See Rx Instructions .Route .COMPLEX 11/21/22 11/21/22 History sodium chloride 1,000 mg soluble 1,000 mg PO DAILY 11/21/22 11/21/22 History tablet witch rodolfo 50 % topical pads 1 pad topical BID PRN Hemorrhoids 11/21/22 11/21/22 History (Hemorrhoidal (witch rodolfo)) Patient History Medical History Anemia Chronic deep vein thrombosis (DVT) Cough Diverticular hemorrhage resolved DVT (deep venous thrombosis) Esophageal varices determined by endoscopy Fever GERD (gastroesophageal reflux disease) GI bleed none at present Hepatic encephalopathy Lactate blood increase Migraine Monoclonal gammopathy Osteoarthritis Presence of IVC filter Pulmonary embolism 2018 > no known cause > Filter to right groin Thrombocytopenia Vertigo Vomiting and diarrhea Weakness Wheezing Surgical History History of bilateral breast reduction surgery History of bilateral cataract extraction History of carpal tunnel release of both wrists History of section x3 History of colonoscopy History of dilatation and curettage History of esophagogastroduodenoscopy (EGD) History of laparoscopic cholecystectomy History of lumbar spinal fusion hardware in place History of tonsillectomy History of tooth extraction all teeth History of total left knee replacement (TKR) History of total right knee replacement (TKR) Family History Mother Family history of diabetes mellitus Brother Family history of diabetes mellitus 3 brothers Colorectal cancer Myocardial infarction x 2 Father Myocardial infarction Denies family history of Ovarian cancer Prostate cancer Breast cancer Social History Smoking Status: Unknown if ever smoked Tobacco Type: Cigarettes Age Started Using Tobacco: 15; Age Quit Using Tobacco: 21; Cigarettes Per Day: stopped 55 years ago; Second Hand Exposure: No; Do You Dip or Chew Tobacco: No; Hx Alcohol Use: No Hx Substance Use: No Preferred Language: [place] Communication Ability: Effective Visual Impairment: Limited Hearing Ability: Normal Production Grader Required: No Beliefs That Will Affect Care: None marital status: / Current Living Situation: Family Current Living Situation Comment: SON AT HOME current occupational status: retired How many Children do You have: 3 Other Information That Helps Us Care for You: No Feels Safe at Home: Yes Safety Concerns: Feels Safe At This Time Childhood Exposure to Second-Hand Smoke: Yes Diet: regular caffeine: Yes (tea) during the past year weight has: remained stable Dental Care, Regularly: No Physical Activity Frequency: Does not Exercise Seatbelt Use: always Sunscreen Use: No Do you think of yourself as: straight/heterosexual Gender Identity: Female Assistive Devices: Raised Toilet Seat and Walker Review of Systems Review of Systems: Negative except as per HPI Results & Data Vital Signs (Past 12 Hours) Vital Signs Temp Pulse Pulse Resp BP Pulse Ox O2 Del Method 11/23/22 15:36 36.4 C L 76 18 123/68 95 Room Air 11/23/22 15:08 75 16 95 Room Air 11/23/22 10:42 36.3 C L 75 18 117/71 100 Room Air 11/23/22 11:26 95 11/23/22 11:12 Room Air 11/23/22 10:40 74 18 93 Room Air 11/23/22 07:30 36.5 C 85 18 128/76 97 Room Air 11/23/22 08:08 76 11/23/22 07:00 77 18 95 Room Air PG Care Time/CCT Total # of Minutes Spent Total Time Spent with Patient: Total time spent is greater than 50% in coordination of care (as documented) at patient's floor/unit and/or counseling patient: Coding Level of Care Code 07678 IN/OBS CONSULT LVL 5,80M Diagnoses Volume overload E87.70 Cor pulmonale I27.81 Chronic kidney disease, stage III (moderate) N18.30 Rhinovirus B34.8 PAF (paroxysmal atrial fibrillation) I48.0 Acute on chronic diastolic heart failure I50.33
[2022-11-23] MEDS: ATORVASTATIN 10 MG TAB PO SCH (20:03)
[2022-11-23] MEDS: ACETAMINOPHEN 325 MG TAB PO PRN (20:14)
[2022-11-24] MEDS: LEVOTHYROXINE SODIUM 75 MCG TABLET PO SCH (06:27)
[2022-11-24 06:54] LABS: Anisocytosis Present; Basophils # (auto) 0.02 K/uL (0-0.2); Basophils % (auto) 0.6 %; Eosinophils # (auto) 0.09 K/uL (0-0.50); Eosinophils % (auto) 2.8 %; Hematocrit (blood only) 27.7 % (37.0-47.0); Hemoglobin 8.8 g/dl (12.0-16.0); Lymphocytes # (auto) 0.97 K/uL (1.2-3.4); Lymphocytes % (auto) 30.5 %; Mean Corpuscular Hemoglobin 29.1 pg (25.0-34.0); Mean Corpuscular Hgb Conc 31.8 g/dL (32.0-36.0); Mean Corpuscular Volume 91.7 fL (80.0-100.0); Monocytes # (auto) 0.39 K/uL (0.11-0.59); Monocytes % (auto) 12.3 %; Neutrophils # (auto) 1.71 K/uL (1.40-6.50); Neutrophils % (auto) 53.8 %; Platelet Count 81 K/uL (130-400); Polychromasia 1+; RDW Coefficient of Variation 21.8 % (11.5-14.5); RDW Standard Deviation 72.7 fL (36.4-46.3); Red Blood Count 3.02 M/uL (4.20-5.40); White Blood Count 3.18 K/ul (4.8-10.8)
[2022-11-24 06:55] LABS: BUN Creatinine Ratio 45.2 (10-20); Creatinine Clr Calc Pharmacy 37.9 ml/min; Est GFR (African American) 39.3 ml/min; Est GFR (Non-African American) 33.9 ml/min; Magnesium 1.8 mg/dl (1.7-2.4); Potassium 4.1 mmol/L (3.5-5.1)
[2022-11-24] MEDS: ALBUT/IPRATROP 3MG/0.5MG NEB 3 ML VIAL NEB SCH (07:17)
[2022-11-24 07:36] LABS: INR 1.2 (0.9-1.1); Prothrombin Time 13.5 Seconds (9.0-12.0)
[2022-11-24] MEDS: FUROSEMIDE 40 MG/4 ML VIAL IV SCH (08:13)
[2022-11-24] MEDS: SPIRONOLACTONE 25 MG TAB PO SCH (08:13)
[2022-11-24] MEDS: MAGNESIUM CHLORIDE W/CALCIUM 64MG DELAYED REL TAB PO SCH ×3 (08:14→21:56)
[2022-11-24] MEDS: HEPARIN SOD 5,000 UNIT/0.5 ML VIAL SQ SCH ×2 (08:14→21:57)
[2022-11-24] MEDS: INSULIN ASPART PER UNIT CHARGE SC SCH ×4 (08:16→21:57)
[2022-11-24] MEDS: MAGNESIUM SULFATE / D5W 1 GM/100 ML BAG IV SCH ×2 (08:19→09:36)
[2022-11-24] MEDS: LACTULOSE SYRUP 30 GM/45 ML UDP PO SCH ×2 (08:19→21:57)
[2022-11-24] MEDS: guaiFENesin SUGAR FREE 200 MG/10 ML UDC PO PRN ×2 (08:26→19:48)
--- NOTE | 2022-11-24 08:29 | Medical Student Progress Note ---
Date of Service November 24, 2022 Assessment & Plan (1) Acute on chronic diastolic heart failure: Plan 1. Acute right-sided HF - Recommendations from cardiology: Pulmonary hypertension suspected. Continue to diurese with Lasix. Spironolactone should be restarted. Propranolol should be re placed with metoprolol succinate ER or carvedilol when symptoms of HF have improved. - Recommendations from nephrology: Reduce Lasix dose. Continue to hold spironolactone. - Weight 120.2 kg, 123.3 kg yesterday - A CXR has been ordered by nephrology, a read is pending, and congestion will be assessed as soon as the image is available 2. Electrolyte derangement - Acute hyperkalemia has been resolved. In accordance with nephrology, continue diuresis and adhere to a low-K diet. - Acute hypomagnesemia has been resolved, magnesium is now at 1.8. 3. Rhinovirus - Maintains stable SpO2 level above 95% on room air with supplemental oxygen as needed - Holding abx in favor of supportive care with DuoNebs, robitussin, incentive spirometry - Switch nebulizer regimen to PRN 4. Paroxysmal atrial fibrillation - Rate & rhythm remain controlled - Anticoagulation is not recommended due to a life-threatening gastrointestinal bleeding history - Cardiology recommends continuing beta-mirta treatment and anticoagulation as long as H&H remain stable. 5. Acute on chronic cirrhosis - RHF may contribute to the exacerbation of known GREGORY. - Thrombocytopenia, platelets at 78, low baseline, continue to monitor closely for signs of bleeding. - As per cardiology's advice, discontinue propranolol and replace it with metoprolol succinate ER or carvedilol as soon as HF symptoms improve. - Consider GI consult regarding fluid overload, for procedural alternative to diuresis 6. Chronic DVTs - On heparin subcutaneous 5000 units BID and SCDs to prevent further DVTs 7. MGUS - HgB 8.8, up from 8.6 yesterday 8. DM with peripheral vascular disease - BID 5 units Lantus, HH, DM2 diet with sodium restriction and low potassium 9. Hypercholesterolemia - Maintain the current regimen of atorvastatin Admission and Anticipated Discharge Date Admission Date: November 21, 2022 Supervising Attestation Medical Student Supervision Note: I was personally present during medical student patient encounter and independently interviewed and examined the patient and verified the almanzar history and physical, reviewed labs and image studies, discussed the case with Marylou Castillo and agree with the findings and care plan. Acute on chronic right heart failure - RHF sec to ROSALES/OHA, ? chronic thromboembolism. continue lasix IV. resume spironolactone. switch b mirta to metoprolol. I and O, daily weights. Cirrhosis - continue b mirta, spironolactone. Subjective 11/24/2022: Her wheezing persists, but she has a good appetite. She is pleased that she is now able to see the tops of her feet since her swelling continues to go down. She reported feeling gassy last night and would like to take simethicone. As a result of coughing last night, she developed a headache, but Tylenol provided some relief, and she would like an additional dose today. Review of Systems Review of Systems: All systems reviewed & are unremarkable except as noted in Subjective Constitutional: as per Subjective / HPI, + chills and + weight gain; no fever Eyes: no worsening vision and no problem reported Ear, Nose, Mouth, Throat: no problem reported Respiratory: as per Subjective / HPI, + dyspnea, + dyspnea on exertion, + sputum production and + wheezing Cardiovascular: as per Subjective / HPI, + dyspnea at rest and + edema; no chest pain Gastrointestinal: + diarrhea/loose stools; no vomiting, no change in bowel habits and no change in stools Musculoskeletal: + back pain Neurologic: no problem reported Psychiatric: no problem reported Physical Exam Constitutional: well developed, well nourished and cooperative; no acute dis tress Eyes: normal visual neely by confrontation; no conjunctival abnormality Neck: normal visual inspection Respiratory: + labored breathing, + cough and able to speak in complete sentences; no respiratory distress Auscultation: + diminished lung sounds and + wheezes Cardiovascular: Rate/Rhythm: regular rate, regular rhythm and + bradycardic Heart Sounds: + murmur Vessels: normal peripheral pulses Extremities: normal capillary refill, + pedal edema and + edema Musculoskeletal: Extremities: strength 5/5 throughout Neurologic: normal touch/pain/proprioception, moves all extremities and awake; no focal motor deficits Psychiatric: Orientation: alert, oriented to person, oriented to place, oriented to time and cooperative Apperance: + disheveled and appeared stated age Eye Contact: good eye contact Motor Behavior: no abnormal motor movements Speech: normal rate/rhythm/volume of speech Results & Data Vital Signs (Past 12 Hours) Vital Signs Temp Pulse Pulse Resp BP Pulse Ox O2 Del Method 11/24/22 07:30 36.4 C L 90 18 120/73 100 Room Air 11/24/22 07:18 76 16 97 Room Air 11/24/22 03:00 36.6 C 75 19 111/69 97 Room Air 11/23/22 22:15 85 11/23/22 23:06 36.5 C 79 19 121/64 97 Room Air 11/23/22 22:30 Room Air Laboratory Results 11/24/22 11/24/22 11/24/22 11:18 07:00 06:16 WBC RBC Hgb Hct MCV MCH MCHC RDW Std Deviation RDW Coeff of Leah Plt Count MPV Immature Gran % (Auto) Neut % (Auto) Lymph % (Auto) [place] % (Auto) Eos % (Auto) Baso % (Auto) Neut # (Auto) Lymph # (Auto) [place] # (Auto) Eos # (Auto) Baso # (Auto) Immature Gran # (Auto) Polychromasia Anisocytosis PT 13.5 H INR 1.2 H Sodium Potassium Chloride Carbon Dioxide Anion Gap BUN Creatinine Est Cr Clr Drug Dosing Est GFR ( Amer) Est GFR (Non-Af Amer) BUN/Creatinine Ratio Glucose POC Glucose 118 H 80 Calcium Magnesium 11/24/22 11/24/22 11/23/22 06:16 06:16 20:13 WBC 3.18 L RBC 3.02 L Hgb 8.8 L Hct 27.7 L MCV 91.7 MCH 29.1 MCHC 31.8 L RDW Std Deviation 72.7 H RDW Coeff of Leah 21.8 H Plt Count 81 L MPV 10.0 Immature Gran % (Auto) 0.0 Neut % (Auto) 53.8 Lymph % (Auto) 30.5 [place] % (Auto) 12.3 Eos % (Auto) 2.8 Baso % (Auto) 0.6 Neut # (Auto) 1.71 Lymph # (Auto) 0.97 L [place] # (Auto) 0.39 Eos # (Auto) 0.09 Baso # (Auto) 0.02 Immature Gran # (Auto) 0.00 L Polychromasia 1+ Anisocytosis Present PT INR Sodium 137 Potassium 4.1 Chloride 107 Carbon Dioxide 25 Anion Gap 5 BUN 66 H Creatinine 1.46 H Est Cr Clr Drug Dosing 37.9 Est GFR ( Amer) 39.3 Est GFR (Non-Af Amer) 33.9 BUN/Creatinine Ratio 45.2 H Glucose 72 POC Glucose 124 H Calcium 8.0 L Magnesium 1.8 11/23/22 16:26 WBC RBC Hgb Hct MCV MCH MCHC RDW Std Deviation RDW Coeff of Leah Plt Count MPV Immature Gran % (Auto) Neut % (Auto) Lymph % (Auto) [place] % (Auto) Eos % (Auto) Baso % (Auto) Neut # (Auto) Lymph # (Auto) [place] # (Auto) Eos # (Auto) Baso # (Auto) Immature Gran # (Auto) Polychromasia Anisocytosis PT INR Sodium Potassium Chloride Carbon Dioxide Anion Gap BUN Creatinine Est Cr Clr Drug Dosing Est GFR ( Amer) Est GFR (Non-Af Amer) BUN/Creatinine Ratio Glucose POC Glucose 117 H Calcium Magnesium Diagnostic Findings Laboratory Results WBC 3.18 K/ul (4.8-10.8) L 11/24/22 06:16 RBC 3.02 M/uL (4.20-5.40) L 11/24/22 06:16 Hgb 8.8 g/dl (12.0-16.0) L 11/24/22 06:16 Hct 27.7 % (37.0-47.0) L 11/24/22 06:16 MCV 91.7 fL (80.0-100.0) 11/24/22 06:16 MCH 29.1 pg (25.0-34.0) 11/24/22 06:16 MCHC 31.8 g/dL (32.0-36.0) L 11/24/22 06:16 RDW Std Deviation 72.7 fL (36.4-46.3) H 11/24/22 06:16 RDW Coeff of Leah 21.8 % (11.5-14.5) H 11/24/22 06:16 Plt Count 81 K/uL (130-400) L 11/24/22 06:16 MPV 10.0 fL (9.4-12.4) 11/24/22 06:16 Immature Gran % (Auto) 0.0 % 11/24/22 06:16 Neut % (Auto) 53.8 % 11/24/22 06:16 Lymph % (Auto) 30.5 % 11/24/22 06:16 [place] % (Auto) 12.3 % 11/24/22 06:16 Eos % (Auto) 2.8 % 11/24/22 06:16 Baso % (Auto) 0.6 % 11/24/22 06:16 Neut # (Auto) 1.71 K/uL (1.40-6.50) 11/24/22 06:16 Lymph # (Auto) 0.97 K/uL (1.2-3.4) L 11/24/22 06:16 [place] # (Auto) 0.39 K/uL (0.11-0.59) 11/24/22 06:16 Eos # (Auto) 0.09 K/uL (0-0.50) 11/24/22 06:16 Baso # (Auto) 0.02 K/uL (0-0.2) 11/24/22 06:16 Immature Gran # (Auto) 0.00 K/uL (0.01-0.20) L 11/24/22 06:16 Polychromasia 1+ 11/24/22 06:16 Anisocytosis Present 11/24/22 06:16 Target Cells 1+ 11/23/22 05:49 PT 13.5 Seconds (9.0-12.0) H 11/24/22 06:16 INR 1.2 (0.9-1.1) H 11/24/22 06:16 Sodium 137 mmol/L (136-145) 11/24/22 06:16 Potassium 4.1 mmol/L (3.5-5.1) 11/24/22 06:16 Chloride 107 mmol/L (98-107) 11/24/22 06:16 Carbon Dioxide 25 mmol/L (21-32) 11/24/22 06:16 Anion Gap 5 (3-11) 11/24/22 06:16 BUN 66 mg/dl (6-23) H 11/24/22 06:16 Creatinine 1.46 mg/dl (0.6-1.2) H 11/24/22 06:16 Est Cr Clr Drug Dosing 37.9 ml/min 11/24/22 06:16 Est GFR ( Amer) 39.3 ml/min 11/24/22 06:16 Est GFR (Non-Af Amer) 33.9 ml/min 11/24/22 06:16 BUN/Creatinine Ratio 45.2 (10-20) H 11/24/22 06:16 Glucose 72 mg/dl (70-99(Fasting)) 11/24/22 06:16 POC Glucose 118 mg/dl (70-99) H 11/24/22 11:18 Lactate 1.4 mmol/L (0.4-2.0) 11/21/22 13:49 Calcium 8.0 mg/dl (8.6-10.3) L 11/24/22 06:16 Magnesium 1.8 mg/dl (1.7-2.4) 11/24/22 06:16 Total Bilirubin 0.6 mg/dl (0.2-1.0) 11/21/22 13:48 AST 37 U/L (13-39) 11/21/22 13:48 ALT 21 U/L (7-52) 11/21/22 13:48 Alkaline Phosphatase 86 U/L (34-104) 11/21/22 13:48 Troponin I High Sens 13.8 pg/ml (0-14) 11/21/22 17:05 B-Natriuretic Peptide 613 pg/ml (0-100) H 11/22/22 00:15 Total Protein 8.0 gm/dl (6.0-8.3) 11/21/22 13:48 Albumin 2.7 gm/dl (3.4-5.0) L 11/21/22 13:48 Globulin 5.3 gm/dl (2.5-4.0) H 11/21/22 13:48 Albumin/Globulin Ratio 0.5 (0.9-2) L 11/21/22 13:48 Procalcitonin < 0.05 ng/ml (0-0.5) 11/21/22 17:05 HCG, Qual Negative (Negative) 11/21/22 13:48 Urine Color Yellow 11/22/22 Unknown Urine Appearance Clear (Clear) 11/22/22 Unknown Urine pH 5.0 (4.5-7.5) 11/22/22 Unknown Ur Specific [place] 1.011 (1.000-1.030) 11/22/22 Unknown Urine Protein Negative (Negative) 11/22/22 Unknown Urine Glucose (UA) Negative (Negative) 11/22/22 Unknown Urine Ketones Negative (Negative) 11/22/22 Unknown Urine Blood 3+ (Negative) H 11/22/22 Unknown Urine Nitrite Negative (Negative) 11/22/22 Unknown Urine Bilirubin Negative (Negative) 11/22/22 Unknown Urine Urobilinogen Negative (Negative) 11/22/22 Unknown Ur Leukocyte Esterase Trace (Negative) H 11/22/22 Unknown Urine WBC (Auto) 1-5 /hpf (0-5) 11/22/22 Unknown Urine RBC (Auto) >30 /hpf (0-4) H 11/22/22 Unknown U Hyaline Cast (Auto) 1-5 /lpf (0-5) 11/22/22 Unknown U Epithel Cells (Auto) 5-10 /lpf (0-5) H 11/22/22 Unknown Urine Bacteria (Auto) Negative (Negative) 11/22/22 Unknown Urine Yeast Not Reportable 11/21/22 14:25 Ur Random Creatinine 36.0 mg/dl 11/22/22 Unknown U Random Total Protein 16.8 mg/dl (0-11.9) H 11/22/22 Unknown Protein/Creatinin Ratio 0.5 (0-0.2) H 11/22/22 Unknown Adenovirus (PCR) Not Detected (NotDetected) 11/21/22 14:35 B. pertussis DNA (PCR) Not Detected (NotDetected) 11/21/22 14:35 B.parapertussis DNA PCR Not Detected (NotDetected) 11/21/22 14:35 C. pneumoniae DNA (PCR) Not Detected (NotDetected) 11/21/22 14:35 Coronavirus OC43 (PCR) Not Detected (NotDetected) 11/21/22 14:35 Coronavirus HKU1 (PCR) Not Detected (NotDetected) 11/21/22 14:35 Coronavirus 229E (PCR) Not Detected (NotDetected) 11/21/22 14:35 SARS-CoV-2 (PCR) Not Detected (NotDetected) 11/21/22 14:35 Coronavirus NL63 (PCR) Not Detected (NotDetected) 11/21/22 14:35 Human Metapneumovir PCR Not Detected (NotDetected) 11/21/22 14:35 Influenza Type A (PCR) Not Detected (NotDetected) 11/21/22 14:35 Influenza Type B (PCR) Not Detected (NotDetected) 11/21/22 14:35 M. pneumoniae (PCR) Not Detected (NotDetected) 11/21/22 14:35 Parainfluenza 1 (PCR) Not Detected (NotDetected) 11/21/22 14:35 Parainfluenza 2 (PCR) Not Detected (NotDetected) 11/21/22 14:35 Parainfluenza 3 (PCR) Not Detected (NotDetected) 11/21/22 14:35 Parainfluenza 4 (PCR) Not Detected (NotDetected) 11/21/22 14:35 RSV (PCR) Not Detected (NotDetected) 11/21/22 14:35 Entero/Rhino (PCR) DETECTED (NotDetected) A* 11/21/22 14:35 Impressions Chest CTA 11/22/22 16:29 Exam(s): CTA CHEST IV Amt: 113ml optiray 320 EXAM: CT Angiography Chest With Intravenous Contrast CLINICAL HISTORY: Reason for exam: PE. TECHNIQUE: Axial computed tomographic angiography images of the chest with intravenous contrast. CTDI is 33.25 mGy and DLP is 984.85 mGy-cm. Automated exposure control was utilized for the study. A dose lowering technique was utilized adhering to the principles of ALARA. MIP reconstructed images were created and reviewed. COMPARISON: No relevant prior studies available. FINDINGS: Pulmonary arteries: No acute pulmonary embolism. Aorta: Atherosclerotic changes of the aorta. No thoracic aortic aneurysm. Lungs: Unremarkable. No mass. No consolidation. Pleural space: Unremarkable. No focal infiltrate, pleural effusion or pneumothorax. Heart: Cardiomegaly. No significant pericardial effusion. No evidence of RV dysfunction. Bones/joints: Degenerative changes of the spine. No acute fracture. No dislocation. Soft tissues: Anasarca. Hepatic cirrhosis. Abdominal ascites. Cholecystectomy. Lymph nodes: Unremarkable. No enlarged lymph nodes. IMPRESSION: 1. No acute pulmonary embolism. 2. No focal infiltrate, pleural effusion or pneumothorax. 3. Anasarca. Hepatic cirrhosis. Abdominal ascites. Cholecystectomy. Electronically signed by: Jon Rizvi MD 11/22/22 21:46 PM Venous Doppler Study 11/22/22 17:38 BILATERAL LOWER EXTREMITY VENOUS DOPPLER HISTORY: lower ext swelling/erythmea COMPARISON STUDY: Right leg venous Doppler 07/28/2022. FINDINGS: There is normal compressibility, flow, and augmentation within the left lower extremity deep venous system. Chronic thrombus again noted within one of 2 right popliteal veins. Otherwise, the right common femoral, superficial femoral, and calf veins appear patent. IMPRESSION: 1. No change in the chronic thrombus within one of 2 right popliteal veins. 2. No acute DVT within the right or left lower extremity. ACT 112: Negative or not required by law. Electronically signed by: Derian Kerns M.D. 11/22/2022 10:38 AM Chest X-Ray 11/24/22 06:00 XR chest 1V portable CLINICAL HISTORY: Congestive heart failure. COMPARISON STUDY: Chest radiograph November 21, 2022. Chest CT November 22, 2022. FINDINGS: Enlargement of the cardiac silhouette is unchanged. There is no pneumothorax. No definite pleural effusion. Pulmonary vascular congestion has improved. There is no evidence for overt pulmonary edema. IMPRESSION: Stable enlargement of the cardiac silhouette with mild decrease in pulmonary vascular congestion. ACT 112: Negative or not required by law. Electronically signed by: Eris Friedman M.D. 11/24/2022 9:10 AM Medications Administered Acetaminophen (Acetaminophen 325 Mg Tab) 650 mg PO Q4H PRN PRN Reason: Pain(1,2,3),Fever,headache Stop: 12/21/22 18:13 Last Admin: 11/24/22 09:36 Dose: 650 mg Documented By: Admin: 11/23/22 20:14 Dose: 650 mg Documented By: [id number] Atorvastatin Calcium (Atorvastatin 10 Mg Tab) 10 mg PO HS ARMANDO Stop: 12/21/22 20:59 Last Admin: 11/23/22 20:03 Dose: 10 mg Documented By: [id number] Admin: 11/22/22 20:21 Dose: 10 mg Documented By: [id number] Admin: 11/21/22 20:42 Dose: 10 mg Documented By: [id number] Famotidine (Famotidine 20 Mg Tab) 20 mg PO BID ARMANDO Stop: 12/24/22 09:14 Last Admin: 11/24/22 09:40 Dose: 20 mg Documented By: JESUS Furosemide (Furosemide 40 Mg/4 Ml Vial) 40 mg IV QAM [facility] Stop: 12/23/22 08:59 Last Admin: 11/24/22 08:13 Dose: 40 mg Documented By: Admin: 11/23/22 08:30 Dose: 40 mg Documented By: PITA Guaifenesin (Guaifenesin Sugar Free 200 Mg/10 Ml Udc) 200 mg PO Q6H PRN PRN Reason: Cough Stop: 12/21/22 17:12 Last Admin: 11/24/22 08:26 Dose: 200 mg Documented By: Admin: 11/23/22 20:03 Dose: 200 mg Documented By: [id number] Admin: 11/23/22 08:39 Dose: 200 mg Documented By: PITA Heparin Sodium (Porcine) (Heparin Sod 5,000 Unit/0.5 Ml Vial) 5,000 units SQ Q12 [facility] [place] Stop: 12/22/22 20:59 Last Admin: 11/24/22 08:14 Dose: 5,000 units Documented By: Admin: 11/23/22 20:02 Dose: 5,000 units Documented By: [id number] Admin: 11/23/22 08:40 Dose: 5,000 units Documented By: Admin: 11/22/22 20:21 Dose: 5,000 units Documented By: [id number] Insulin Aspart (Insulin Aspart Per Unit Charge) 0 units SC ACHS [facility] Stop: 12/21/22 20:59 Last Admin: 11/24/22 11:52 Dose: 3 units Documented By: JESUS Co-signed By: JANA Admin: 11/24/22 08:16 Dose: 2 units Documented By: JESUS Co-signed By: JUAN A Admin: 11/23/22 20:16 Dose: Not Given Documented By: [id number] Admin: 11/23/22 17:22 Dose: 3 units Documented By: PITA Co-signed By: MARJORIE Admin: 11/23/22 12:07 Dose: 2 units Documented By: PITA Co-signed By: RUBEN Admin: 11/23/22 07:14 Dose: Not Given Documented By: Admin: 11/22/22 21:21 Dose: Not Given Documented By: [id number] Admin: 11/22/22 17:19 Dose: Not Given Documented By: Admin: 11/22/22 11:41 Dose: Not Given Documented By: Admin: 11/22/22 07:51 Dose: Not Given Documented By: Admin: 11/21/22 20:37 Dose: Not Given Documented By: [id number] Lactulose (Lactulose Syrup 30 Gm/45 Ml Udp) 30 gm PO BID ARMANDO Stop: 12/21/22 20:59 Last Admin: 11/24/22 08:19 Dose: 30 gm Documented By: Admin: 11/23/22 20:03 Dose: 30 gm Documented By: [id number] Admin: 11/23/22 08:39 Dose: Not Given Documented By: Admin: 11/22/22 20:21 Dose: 30 gm Documented By: [id number] Admin: 11/22/22 08:20 Dose: 30 gm Documented By: Admin: 11/21/22 20:41 Dose: 30 gm Documented By: [id number] Levothyroxine Sodium (Levothyroxine Sodium 75 Mcg Tablet) 75 mcg PO DAILYBB [facility] [place] Stop: 12/22/22 06:29 Last Admin: 11/24/22 06:27 Dose: 75 mcg Documented By: Admin: 11/23/22 06:07 Dose: 75 mcg Documented By: [id number] Admin: 11/22/22 05:40 Dose: 75 mcg Documented By: [id number] Magnesium Chloride (Magnesium Chloride W/Calcium 64mg Delayed Rel Tab) 128 mg PO TID ARMANDO Stop: 12/21/22 20:59 Last Admin: 11/24/22 08:14 Dose: 128 mg Documented By: Admin: 11/23/22 20:02 Dose: 128 mg Documented By: [id number] Admin: 11/23/22 14:25 Dose: 128 mg Documented By: Admin: 11/23/22 08:38 Dose: 128 mg Documented By: Admin: 11/22/22 20:21 Dose: 128 mg Documented By: [id number] Admin: 11/22/22 13:24 Dose: 128 mg Documented By: Admin: 11/22/22 08:20 Dose: 128 mg Documented By: Admin: 11/21/22 20:42 Dose: 128 mg Documented By: [id number] Miscellaneous (Carbohydrates For Hypoglycemia ) 15 - 30 gm PO UD PRN PRN Reason: Hypoglycemia Protocol Stop: 12/21/22 17:40 Last Admin: 11/22/22 05:40 Dose: 15 gm Documented By: [id number] Admin: 11/22/22 05:16 Dose: 15 gm Documented By: [id number] Spironolactone (Spironolactone 25 Mg Tab) 25 mg PO QAM [facility] Stop: 12/24/22 08:59 Last Admin: 11/24/22 08:13 Dose: 25 mg Documented By: CM
--- NOTE | 2022-11-24 09:12 | XRay Report ---
XR chest 1V portable CLINICAL HISTORY: Congestive heart failure. COMPARISON STUDY: Chest radiograph November 21, 2022. Chest CT November 22, 2022. FINDINGS: Enlargement of the cardiac silhouette is unchanged. There is no pneumothorax. No definite p leural effusion. Pulmonary vascular congestion has improved. There is no evidence for overt pulmonary edema. IMPRESSION: Stable enlargement of the cardiac silhouette with mild decrease in pulmonary vascular co ngestion. ACT 112: Negative or not required by law. Electronically signed by: Eris Friedman M.D. 11/24/2022 9:10 AM
[2022-11-24] MEDS: ACETAMINOPHEN 325 MG TAB PO PRN (09:36)
[2022-11-24] MEDS: FAMOTIDINE 20 MG TAB PO SCH ×2 (09:40→21:56)
[2022-11-24] MEDS ORDERED: ALBUT/IPRATROP 3MG/0.5MG NEB 3 ML VIAL NEB PRN (10:18)
--- NOTE | 2022-11-24 11:05 | Nephrology Progress Note ---
Date of Service November 24, 2022 Assessment & Plan (1) Acute hyperkalemia: Plan: * Resolved * Continue low K diet * Monitor PRP (2) Chronic kidney disease, stage III (moderate): Plan: * CKD stage G3b/A (moderate impairment). Baseline Cr 1.4 w/ EGFR 42 cc/min. Renal impairment has been attributed to recurrent hospitalization w/ [facility] due to dehydration * Kidney function is stable at this time * 11/22/22 urinalysis w/ hematuria following Lynn catheter insertion. UPCR low grade at 0.5 * Kidney function is stable. Patient is responding to diuretic therapy as directed by Cardiology. Hyperkalemia has resolved. No further Nephrology evaluation at this time. Will sign off. Please have patient follow up w/ Dr. Momin within 2 weeks of hospital discharge (3) CHF (congestive heart failure): Plan: * 11/24/22 CXR shows slight improvement in CHF * Net 2.5 L diuresis over last 24 hours * Remains on Furosemide 40 mg IV daily * Monitor UO, weight * BP is well controlled * Consider reintroduction of low dose Spironolactone w/ close monitoring of serum K Admission and Anticipated Discharge Date Admission Date: November 21, 2022 Subjective Ms. Dudley was evaluated in her hospital room this morning. She reports that her breathing and her LE swelling are both subjectively improved. She continues to cough and has a BLAKE Review of Systems Constitutional: no fever Eyes: no problem reported Ear, Nose, Mouth, Throat: no problem reported Respiratory: no dyspnea Cardiovascular: + edema; no chest pain Gastrointestinal: no abdominal pain, no nausea, no vomiting and no diarrhea/l oose stools Genitourinary: no dysuria and no hematuria Physical Exam Constitutional: not in distress Eyes: PERRL, conjunctivae normal, anicteric sclerae ENMT: external ear and nose normal, oropharynx normal Neck: trachea midline, no thyromegaly Respiratory: normal respiratory effort, lungs clear to auscultation Auscultation: + rales Cardiovascular: Rate/Rhythm: regular rate and regular rhythm Extremities: + edema (2+ pitting bilateral LE edema) Gastrointestinal (Abdomen): normal bowel sounds, soft, nontender, no hepatosplenomegaly Neurologic: awake; not confused Speech / Cognition: normal speech and normal cognition Results & Data Vital Signs (Past 12 Hours) Vital Signs Temp Pulse Resp BP Pulse Ox O2 Del Method 11/24/22 08:00 Room Air 11/24/22 07:30 36.4 C L 90 18 120/73 100 Room Air 11/24/22 07:18 76 16 97 Room Air 11/24/22 03:00 36.6 C 75 19 111/69 97 Room Air 11/23/22 23:06 36.5 C 79 19 121/64 97 Room Air Laboratory Results Laboratory Tests 11/24/22 11/24/22 06:16 06:16 WBC 3.18 L Hgb 8.8 L Hct 27.7 L Plt Count 81 L Sodium 137 Potassium 4.1 Chloride 107 Carbon Dioxide 25 BUN 66 H Creatinine 1.46 H Glucose 72 PG Care Time/CCT Total # of Minutes Spent Total Time Spent with Patient: Total time spent is greater than 50% in coordination of care (as documented) at patient's floor/unit and/or counseling patient: Coding Level of Care Code 96140 SUB INP/OBS CARE 3/50MIN Diagnoses Acute hyperkalemia E87.5 Chronic kidney disease, stage III (moderate) N18.30 CHF (congestive heart failure) I50.9
[2022-11-24] MEDS: ATORVASTATIN 10 MG TAB PO SCH (21:55)
[2022-11-24] MEDS: DOCUSATE SODIUM 100 MG CAP PO SCH (21:56)
[2022-11-24] MEDS: POLYETHYLENE (MIRALAX) 17 GM PACK PO SCH (21:58)
[2022-11-25] MEDS: ACETAMINOPHEN 325 MG TAB PO PRN (04:37)
[2022-11-25] MEDS: guaiFENesin SUGAR FREE 200 MG/10 ML UDC PO PRN ×2 (04:37→21:30)
[2022-11-25 06:27] LABS: Hematocrit (blood only) 29.2 % (37.0-47.0); Hemoglobin 9.2 g/dl (12.0-16.0); Mean Corpuscular Hemoglobin 28.8 pg (25.0-34.0); Mean Corpuscular Hgb Conc 31.5 g/dL (32.0-36.0); Mean Corpuscular Volume 91.5 fL (80.0-100.0); Platelet Count 83 K/uL (130-400); RDW Coefficient of Variation 21.5 % (11.5-14.5); RDW Standard Deviation 73.2 fL (36.4-46.3); Red Blood Count 3.19 M/uL (4.20-5.40); White Blood Count 2.95 K/ul (4.8-10.8)
[2022-11-25 06:35] LABS: Anisocytosis Present; BUN Creatinine Ratio 42.1 (10-20); Basophils # (auto) 0.02 K/uL (0-0.2); Basophils % (auto) 0.7 %; Calcium 7.9 mg/dl (8.6-10.3); Creatinine Clr Calc Pharmacy 37.7 ml/min; Eosinophils # (auto) 0.05 K/uL (0-0.50); Eosinophils % (auto) 1.7 %; Est GFR (African American) 39.6 ml/min; Est GFR (Non-African American) 34.2 ml/min; Immature Granulocytes # (auto) 0.01 K/uL (0.01-0.20); Immature Granulocytes % (auto) 0.3 %; Lymphocytes % (auto) 23.7 %; Magnesium 1.9 mg/dl (1.7-2.4); Monocytes # (auto) 0.32 K/uL (0.11-0.59); Monocytes % (auto) 10.8 %; Neutrophils # (auto) 1.85 K/uL (1.40-6.50); Neutrophils % (auto) 62.8 %; Poikilocytosis Present; Polychromasia 1+
[2022-11-25] MEDS: LEVOTHYROXINE SODIUM 75 MCG TABLET PO SCH (06:40)
[2022-11-25 06:41] LABS: INR 1.2 (0.9-1.1); Prothrombin Time 13.5 Seconds (9.0-12.0)
--- NOTE | 2022-11-25 07:18 | Hospitalist Progress Note ---
Date of Service November 25, 2022 Assessment & Plan (1) Acute on chronic diastolic heart failure: Plan Acute on Chronic CorPulmonale (Right Heart Failure) New diagnosis of right heart failure per TTE on 11/23 but findings could have been chronic, unclear etiology but may be due to contribution from OHS/ROSALES as well as ?right-sided NE that has gone undiagnosed. Patient is diuresing well with weight close to baseline at this point. - continue Lasix 40mg IV daily. Neg 1.5L, weight down by 4kg - daily weights, strict I/Os, heart-healthy diet - Cardiology on board - appreciate ongoing recs - monitor BMP daily Paroxysmal atrial fibrillation Rate-controlled. - Not on anti-coagulation due to h/o life-threatening GI bleed; IVF filter in place Cirrhosis with possible acute decompensation GREGORY primary cause of chronic cirrhosis, possibly with worsening of cirrhosis due to right heart failure. MELD ~14. CT with mild ascites - chronic. - home Propranolol has been held due to lower blood pressures; consider changing to Metoprolol vs Carvedilol, per Cardiology - continue home Lactulose and Spironolactone, as stated above - will need outpatient GI follow up for this (last seen in 2020 by [facility]) Pancytopenia - likely from cirrhosis. follow Hyperkalemia, resolved Acute hyperkalemia has resolved. In accordance with nephrology, continue diuresis and adhere to a low-K diet. - home Spironolactone resumed on 11/24, labs stable - monitor BMP as stated above T2DM A1c 5.4 in 09/2022. - continue SSI and Lantus Hypercholesterolemia - continue home Atorvastatin GERD - continue Pepcid, consider continuing this on discharge Hypothyroidism - continue home Levothyroxine FEN/GI: heart-healthy/DM2 diet with Na/K/fluid restriction DVT Prophylaxis: Heparin SQ Code Status: DNR/DNI Disposition: downgrade from PCU to med/tele, PT/OT recommends home when stable Admission and Anticipated Discharge Date Admission Date: November 21, 2022 Supervising Physician Co-Signing Physician Notes Resident Physician Supervision Note: I independently interviewed and examined the patient and verified the almanzar history and physical, reviewed labs and image studies and agree with resident findings and care plan. Subjective No acute events overnight. Weight is appropriately down and diuresing well. Still with cough and shortness of breath when ambulating. No other complaints this morning. Review of Systems Review of Systems: All systems reviewed & are unremarkable except as noted in HPI & below Physical Exam Physical Exam: General: A&Ox3. NAD. Cooperative. HEENT: Atraumatic, normocephalic. Pulm: CTAB A&P. -wheezes, -rales, -rhonchi. Symmetrical chest rise. No increase work of breathing. No respiratory distress. Cardiac: RRR, -mrg. Radial pulses intact and symmetrical. 3+ bilateral LE edema to knees Abdominal: soft, non-tender, mildly distended, BS x 4 Skin: warm, dry, no rash Results & Data Results & Data Vital Signs (Past 12 Hours) Vital Signs Temp Pulse Pulse Resp BP Pulse Ox O2 Del Method 11/25/22 02:50 36.4 C L 84 17 108/64 97 Room Air 11/24/22 22:00 102 H 11/24/22 19:30 Room Air 11/24/22 22:42 36.4 C L 102 H 18 136/80 94 Room Air 11/24/22 19:33 36.4 C L 91 H 20 156/98 H 97 Room Air Resident Activity Tracking Resident Involvement: Resident Care Provided Care Provided: Adult Hospital Medicine
[2022-11-25] MEDS: INSULIN ASPART PER UNIT CHARGE SC SCH ×4 (08:01→21:34)
[2022-11-25] MEDS: MAGNESIUM CHLORIDE W/CALCIUM 64MG DELAYED REL TAB PO SCH ×3 (08:04→21:35)
[2022-11-25] MEDS: FAMOTIDINE 20 MG TAB PO SCH ×2 (08:05→21:32)
[2022-11-25] MEDS: HEPARIN SOD 5,000 UNIT/0.5 ML VIAL SQ SCH ×2 (08:05→21:33)
[2022-11-25] MEDS: FUROSEMIDE 40 MG/4 ML VIAL IV SCH (08:05)
[2022-11-25] MEDS: SPIRONOLACTONE 25 MG TAB PO SCH (08:05)
[2022-11-25] MEDS: LACTULOSE SYRUP 30 GM/45 ML UDP PO SCH ×2 (08:05→21:34)
[2022-11-25] MEDS: DOCUSATE SODIUM 100 MG CAP PO SCH ×2 (08:05→21:32)
[2022-11-25] MEDS: POLYETHYLENE (MIRALAX) 17 GM PACK PO SCH ×2 (08:06→21:35)
--- NOTE | 2022-11-25 19:44 | Cardiology Progress Note ---
Date of Service November 25, 2022 Assessment & Plan (1) Cor pulmonale: Plan: Remains volume overloaded but has lost at least 9 pounds since admission and continues to diurese without any negative impact on her renal function. Therefore, we will continue diuresis using IV Lasix and oral spironolactone. We still seem to be fairly far away from euvolemia at this time. Continue to monitor renal function. We are holding her GIOVANY inhibitor. (2) PAF (paroxysmal atrial fibrillation): Plan: She remains in sinus rhythm at this time. Has not been receiving beta-mirta. Was on propranolol presumably for cirrhosis. It may be time to restart a beta- mirta as her lungs are significantly improved. I would like to avoid A-fib with RVR as she would decompensate rather quickly. Her H&H have remained s table. However, given her recurrent anemia and GI bleed I think I would withhold any anticoagulation at this time at least unless she returns to atrial fibrillation. Admission and Anticipated Discharge Date Admission Date: November 21, 2022 Subjective Patient continues to improve. Breathing improved. States her legs were more swollen yesterday but today they are improved. She has been propping her legs up. Less painful at this time. She denies any chest pain. Review of Systems Review of Systems: Negative except as per HPI Physical Exam Constitutional: WD/WN, vitals as above (Elderly, obese, chronically ill) Neck: JVD (less than prior) Respiratory: Bibasilar dullness and crackles. Otherwise clear. No wheezing or rhonchi. Cardiovascular: Regular rate and rhythm. S4 gallop. Systolic murmur Musculoskeletal: Bilateral pitting edema of the lower extremities 2+. Improved from prior. Erythema improved. No new blisters. No longer weeping. Neurologic: Cognition intact. Speech is fluent. No focal deficits. Psychiatric: A+Ox3, euthymic affect (She is in good spirits.) Results & Data Vital Signs (Past 12 Hours) Vital Signs Temp Pulse Pulse Resp BP Pulse Ox O2 Del Method 11/25/22 16:51 36.4 C L 80 16 145/76 H 99 Room Air 11/25/22 15:44 76 11/25/22 11:58 36.2 C L 70 18 146/56 H 98 Room Air 11/25/22 07:45 72 11/25/22 07:45 Room Air 11/25/22 08:12 76 119/62 PG Care Time/CCT Total # of Minutes Spent Total Time Spent with Patient: Total time spent is greater than 50% in coordination of care (as documented) at patient's floor/unit and/or counseling patient: Coding Level of Care Code 77722 SUB INP/OBS CARE 2/35MIN Diagnoses Cor pulmonale I27.81 PAF (paroxysmal atrial fibrillation) I48.0
[2022-11-25] MEDS: PROPRANOLOL HCL 10 MG TAB PO SCH (21:31)
[2022-11-25] MEDS: ATORVASTATIN 10 MG TAB PO SCH (21:32)
[2022-11-26] MEDS: LEVOTHYROXINE SODIUM 75 MCG TABLET PO SCH (05:46)
--- NOTE | 2022-11-26 06:00 | Hospitalist Progress Note ---
Date of Service November 26, 2022 Assessment & Plan (1) Acute on chronic diastolic heart failure: Plan: Acute on chronic Cor Pulmonale (Right Heart Failure) New diagnosis of right heart failure per TTE on 11/23 of uncertain onset - possibly chronic, unclear etiology but may be due to contribution from OHS/ROSALES as well as ?right-sided MT that has gone undiagnosed. Patient is diuresing well with weight close to baseline, however, still appearing hypervolemic on daily exams. - continue Lasix 40mg IV daily and spironolactone 25mg PO daily - daily weights, strict I/Os, heart-healthy diet; Weight 116kg from 122 on admission. - Cardiology on board - appreciate ongoing recs - monitor BMP daily Paroxysmal atrial fibrillation Rate-controlled. - Not on anti-coagulation due to h/o life-threatening GI bleed; IVF filter in place - Propranolol restarted 11/25 -- consider switching to metoprolol or carvedilol as outpatient once acute events resolve Cirrhosis with possible decompensation GREGORY primary cause of chronic cirrhosis, likely with worsening of cirrhosis due to right heart failure. MELD ~14 - Propranolol resumed 11/25 - continue home Lactulose and Spironolactone - will need to arrange outpatient GI follow up for this prior to discharge (last seen in 2020 by [facility]) -- RN Navigation consult placed. CKD III In setting of known HTN, T2DM, MGUS, cirrhosis -- baseline Cr ~1.4 - 1.6 on review of records - Currently at baseline function with ongoing diuresis. Continue daily BMP - [place] [facility] [place] - last visit 09/[place]22 - Holding ACEI at this time. Resume when appropriate. Hyperkalemia, resolved Acute hyperkalemia has resolved. In accordance with nephrology, continue diuresis and adhere to a low-K diet. - Home spironolactone resumed. Monitor BMP. T2DM A1c 5.4 in 09/2022. - continue SSI and Lantus Hypercholesterolemia - continue home Atorvastatin GERD - continue Pepcid, consider continuing this on discharge Hypothyroidism - continue home Levothyroxine FEN/GI: heart-healthy/DM2 diet with Na/K/fluid restriction DVT Prophylaxis: Heparin SQ Code Status: DNR/DNI Disposition: MST; home PT recommended on d/c Admission and Anticipated Discharge Date Admission Date: November 21, 2022 Supervising Physician Co-Signing Physician Notes Resident Physician Supervision Note: I independently interviewed and examined the patient and verified the almanzar history and physical, reviewed labs and image studies and agree with resident findings and care plan. Subjective Feeling good overall. Definitely improved from a breathing perspective. Moved bowels - felt good. No CP/palpitations. No lightheadedness/dizziness. Doing leg kicks, engaging w/ PT. --- VSS overnight. Weight 116.8 (compared to 118.2 yesterday). 24h I&O: 760/2275 = net -1515. Review of Systems Review of Systems: as per HPI Physical Exam Physical Exam: General: Overall well appearing 77yoF in NAD. HEENT: NCAT. - Eyes - Sclera are white, anicteric, and without injection. - Mouth - MMM - Neck - supple, unable to appreciate JVD given habitus. Cardiac: Normal rate and regular rhythm; S1 and S2 present with systolic murmur heard at LLSB detected Pulmonary: Good respiratory effort with symmetric expansion of the chest. No use of accessory muscles. Lungs demonstrated bibasilar crackles with expiratory wheezes. Abdominal: Normoactive bowel sounds. Abdomen was soft, nondistended, and non- tender to palpation. Extremities: Upper and lower extremities are warm and well perfused. 2+ peripheral edema in the lower extremities bilaterally with some weeping from the RLE, no appreciable erythema or scaling. Results & Data Results & Data Vital Signs (Past 12 Hours) Vital Signs Temp Pulse Pulse Pulse Resp BP Pulse Ox 11/26/22 03:12 36.5 C 66 18 103/57 L 98 11/25/22 23:10 68 11/25/22 19:15 11/25/22 23:33 36.4 C L 75 16 146/76 H 97 11/25/22 21:15 36.5 C 84 17 133/74 95 O2 Del Method 11/26/22 03:12 Room Air 11/25/22 23:10 11/25/22 19:15 Room Air 11/25/22 23:33 Room Air 11/25/22 21:15 Room Air Resident Activity Tracking Resident Involvement: Resident Care Provided Care Provided: Adult Hospital Medicine
[2022-11-26 07:54] LABS: Hematocrit (blood only) 30.4 % (37.0-47.0); Hemoglobin 9.7 g/dl (12.0-16.0); Mean Corpuscular Hemoglobin 29.4 pg (25.0-34.0); Mean Corpuscular Hgb Conc 31.9 g/dL (32.0-36.0); Mean Corpuscular Volume 92.1 fL (80.0-100.0); Mean Platelet Volume 10.5 fL (9.4-12.4); Platelet Count 96 K/uL (130-400); RDW Coefficient of Variation 21.7 % (11.5-14.5); White Blood Count 2.86 K/ul (4.8-10.8)
[2022-11-26 08:07] LABS: BUN Creatinine Ratio 38.7 (10-20); Calcium 8.3 mg/dl (8.6-10.3); Creatinine Clr Calc Pharmacy 36.2 ml/min; Est GFR (Non-African American) 32.8 ml/min; Magnesium 1.6 mg/dl (1.7-2.4); Potassium 3.9 mmol/L (3.5-5.1)
[2022-11-26] MEDS ORDERED: MAGNESIUM SULFATE / D5W 1 GM/100 ML BAG IV ONE (08:08)
[2022-11-26 08:17] LABS: INR 1.2 (0.9-1.1); Prothrombin Time 13.4 Seconds (9.0-12.0)
[2022-11-26] MEDS: SPIRONOLACTONE 25 MG TAB PO SCH (08:25)
[2022-11-26] MEDS: FAMOTIDINE 20 MG TAB PO SCH ×2 (08:25→20:14)
[2022-11-26] MEDS: MAGNESIUM CHLORIDE W/CALCIUM 64MG DELAYED REL TAB PO SCH ×3 (08:25→20:18)
[2022-11-26] MEDS: PROPRANOLOL HCL 10 MG TAB PO SCH ×3 (08:25→20:18)
[2022-11-26] MEDS: HEPARIN SOD 5,000 UNIT/0.5 ML VIAL SQ SCH ×2 (08:25→20:15)
[2022-11-26 08:26] LABS: Anisocytosis Present; Basophils # (auto) 0.03 K/uL (0-0.2); Eosinophils # (auto) 0.11 K/uL (0-0.50); Eosinophils % (auto) 3.8 %; Immature Granulocytes # (auto) 0.01 K/uL (0.01-0.20); Immature Granulocytes % (auto) 0.3 %; Lymphocytes # (auto) 0.95 K/uL (1.2-3.4); Lymphocytes % (auto) 33.2 %; Monocytes % (auto) 10.5 %; Neutrophils # (auto) 1.46 K/uL (1.40-6.50); Neutrophils % (auto) 51.2 %; Polychromasia 1+; Target Cells 1+
[2022-11-26] MEDS: DOCUSATE SODIUM 100 MG CAP PO SCH ×2 (08:26→20:14)
[2022-11-26] MEDS: LACTULOSE SYRUP 30 GM/45 ML UDP PO SCH ×2 (08:26→20:17)
[2022-11-26] MEDS: POLYETHYLENE (MIRALAX) 17 GM PACK PO SCH ×2 (08:26→20:17)
[2022-11-26] MEDS: FUROSEMIDE 40 MG/4 ML VIAL IV SCH (08:26)
[2022-11-26] MEDS: INSULIN ASPART PER UNIT CHARGE SC SCH ×4 (08:49→21:37)
[2022-11-26] MEDS: ATORVASTATIN 10 MG TAB PO SCH (20:14)
[2022-11-26] MEDS: ACETAMINOPHEN 325 MG TAB PO PRN (20:19)
[2022-11-26] MEDS: guaiFENesin SUGAR FREE 200 MG/10 ML UDC PO PRN (20:20)
[2022-11-27] MEDS: LEVOTHYROXINE SODIUM 75 MCG TABLET PO SCH (05:34)
[2022-11-27 07:48] LABS: BUN Creatinine Ratio 42.8 (10-20); Creatinine Clr Calc Pharmacy 36.9 ml/min; Est GFR (African American) 39.6 ml/min; Est GFR (Non-African American) 34.2 ml/min; Magnesium 1.6 mg/dl (1.7-2.4); Potassium 4.1 mmol/L (3.5-5.1)
[2022-11-27] MEDS: MAGNESIUM CHLORIDE W/CALCIUM 64MG DELAYED REL TAB PO SCH ×2 (08:23→13:28)
[2022-11-27] MEDS: PROPRANOLOL HCL 10 MG TAB PO SCH ×2 (08:24→13:28)
[2022-11-27] MEDS: FUROSEMIDE 40 MG/4 ML VIAL IV SCH (08:25)
[2022-11-27] MEDS: SPIRONOLACTONE 25 MG TAB PO SCH (08:25)
[2022-11-27] MEDS: LACTULOSE SYRUP 30 GM/45 ML UDP PO SCH (08:25)
[2022-11-27] MEDS: DOCUSATE SODIUM 100 MG CAP PO SCH (08:25)
[2022-11-27] MEDS: POLYETHYLENE (MIRALAX) 17 GM PACK PO SCH (08:26)
[2022-11-27] MEDS: HEPARIN SOD 5,000 UNIT/0.5 ML VIAL SQ SCH (08:26)
[2022-11-27] MEDS: FAMOTIDINE 20 MG TAB PO SCH (08:26)
[2022-11-27] MEDS: INSULIN ASPART PER UNIT CHARGE SC SCH ×2 (08:35→12:07)
[2022-11-27] MEDS: MAGNESIUM SULFATE / D5W 1 GM/100 ML BAG IV SCH ×2 (09:35→11:24)
--- NOTE | 2022-11-27 10:25 | Discharge Summary ---
Date of Service November 27, 2022 Admission HPI Per Admitting Provider Rosalind is a 76 yo F with PMH recent strep bacteremia and infective endocarditis, new-onset afib, HTN, stage 3 CKD, chronic DVT with IVC filter, aortic stenosis, HFpEF, MGUS, cirrhosis, DM2, HLD, ROSALES on CPAP, chronic back pa in who presented to the [facility] ED on 11/21/22 at the recommendation of her PCP for weight gain and BL LE edema. In the ED the patient was found to be afebrile, hemodynamically stable, and stable on RA. Labs were significant for a stable Hgb of 10.4, stable platelets at 111 (up from 99 as of 11/10), leukopenia of 4.14, lymphopenia of 0.94, cr of 1.52 (baseline is near 1.4-1.5 per last Nephro note), potassium of 5.9, mag of 1.5, BNP of 511 (highest to date), initial high sen trop of 14 and entero/rhinovirus positive. Chest xray was read as Cardiomegaly with mild pulmonary vascular congestion.. Prior to admission the patient was given 1 gm IV calcium gluconate, 40 mg IV lasix, 5 units IV regular insulin, and 1 gm IV magnesium. At the time of the exam the patient was sitting in bed in no acute distress with her grandson sitting bedside, history is obtained from both. She states that she has been having ongoing LE swelling and weight gain over the past 2 months. She confirms that she completed her course of Ceftriaxone and her PICC was removed. Over the past 3 days or so she started to develop increased SOB and a productive cough with white-yellow sputum production. She denies recent fever, chills, chest pain, abd pain, nausea, vomiting, dysuria hematuria, melena, diarrhea, and recent trauma. She confirms that her previous DVT's are in the RLE and her IVC filter is still in place. I discussed her medications with her, she states she was still taking the spironolactone and lisinopril despite her recent hyperkalemia. She is taking 40 mg PO lasix in the am and 20 mg PO in the PM. She explains that she was stated on Doxycycline by her PCP on 11/10 due to possible RLE infection, she denies any changes since being on the Doxy. She is still a DNR/DNI. Please refer to Dr. Yañez's attestation for any changes to the treatment plan Admission Exam Per Admitting Provider Physical Exam: General:In no acute distress, stated age, chronically ill appearing HEENT:Normocephalic, atraumatic, no scleral icterus, pupils around round, symmetrical, and reactive to light, moist mucus membranes, trachea midline, no thyromegaly Chest/Pulm:No respiratory distress, symmetrical chest expansion, expiratory wheezing noted throughout Cardiac:RRR, 4/6 systolic murmur noted Abdomen:Negative for ascites and bruising, normoactive bowel sounds, soft, non-tender to palpation throughout Musculoskeletal:Symmetrical and without signs of acute trauma, upper and lower extremities with full ROM, no atrophy, spasticity, or flaccidity Extremities:Radial, dorsalis pedis, and posterior tibial pulses are intact a nd symmetrical, 3-4+ pitting edema noted in the BL LE's Skin:Patient with erythema located over the anterior aspect of the RLE from the right ankle to the mid linder, currently draining clear fluid and without circumferential erythema Neuro:Alert and oriented to person, place, month, year, and president, no focal defects, CN II-XII tested and intact, finger to nose test negative, no tremors noted Psych:No acute distress, calm and cooperative during the exam Principal Diagnosis Acute Right Heart Failure (Cor [place]) Discharge Exam General: A&Ox3. NAD. Cooperative. HEENT: Atraumatic, normocephalic. Pulm: CTAB A&P. -wheezes, -rales, -rhonchi. Symmetrical chest rise. No increase work of breathing. No respiratory distress. Cardiac: RRR, -mrg. Radial pulses intact and symmetrical. 2+ bilateral LE edema to knees Abdominal: soft, non-tender, mildly distended, BS x 4 Skin: warm, dry, no rash Discharge Data Allergies Allergy/AdvReac Type Severity Reaction Status Date / Time No Known Allergies Allergy Verified 11/21/22 15:38 Consultations 11/21/22 22:08 Consult Nephrology Routine 11/23/22 10:43 Consult Cardiology Routine 11/26/22 09:35 Consult [facility] stained glass installer Routine Ordered Studies 11/22/22 16:29 CT for pulmonary embolism PE [CT angio chest PE protocol] Urgent 11/22/22 17:38 US venous doppler LE ART Urgent Hospital Course (1) Acute on chronic diastolic heart failure: Acute on chronic Cor Pulmonale (Right Heart Failure) New diagnosis of right heart failure per TTE on 11/23 of uncertain onset - possibly chronic, unclear etiology but may be due to contribution from OHS/ROSALES as well as ?right-sided IA that has gone undiagnosed. Patient was diuresed well throughout hospitalization, with weight down from 122kg to 113.9kg and net -10L. Patient was weaned off of supplementation oxygen and has been satting well on room air with ambulation for several days. - TTE on 11/22 with EF 50-55% but severe TR, reducted RV function, dilated RV, dilated RA and D-shaped intraventricular septum consistent with acute RV failure - initially placed on Lasix 40mg IV for several days, then weaned to 40mg IV daily for remainder of hospitalization - continue with home regimen (40mg/20mg PO) after discharge - continue spironolactone 25mg PO daily - continue heart-healthy diet - counseled on salt/fluid restriction - Cardiology on board during hospitalization - patient will need to follow up with Cardiology after discharge - recommend repeat home sleep study and further discussion about CPAP, given cor pulmonale - defer to PCP/Merchandise For Res[employer] Purchasing Agent Paroxysmal atrial fibrillation Rate-controlled. - Not on anti-coagulation due to h/o life-threatening GI bleed; IVF filter in place - Propranolol restarted 11/25 -- consider switching to metoprolol or carvedilol as outpatient once acute events resolve --> defer to Cardiology/GI Cirrhosis with possible decompensation GREGORY primary cause of chronic cirrhosis, likely with worsening of cirrhosis due to right heart failure. MELD ~14 - Propranolol resumed 11/25 - continue home Lactulose and Spironolactone - will need to arrange outpatient GI follow up for this prior to discharge (last seen in 2020 by [facility]) -- RN Navigation consult placed CKD III In setting of known HTN, T2DM, MGUS, cirrhosis -- baseline Cr ~1.4 - 1.6 on review of records - Currently at baseline function with ongoing diuresis - Follows with [facility] [place] [facility] - last visit 09/2022 - Held GIOVANY-I throughout hospitalization - resume on discharge Hyperkalemia, resolved Initially with K 6.1 but asymptomatic, resolved with diuresis. - Nephrology was consulted during hospitalization - was given several doses of Lokelma before hyperkalemia resolved and was weaned off of it - continue to have K-restricted diet - Home spironolactone resumed during hospitalization - continue on discharge as stated above T2DM A1c 5.4 in 09/2022. - SSI and Lantus while hopsitalized Hypercholesterolemia - continue home Atorvastatin GERD - Pepcid 20mg PO BID started during hospitalization with good control of heartburn - continue on discharge Hypothyroidism - continue home Levothyroxine Patient was discharged home on 11/27 with home health services in place. Total Time Total Time Spent Total Time Spent (In Minutes): 30 minutes Discharge Plan Discharge Items Patient Disposition: Home - Home Health Services Reason For Visit: WEIGHT GAIN, LE SWELLING Discharge Diagnosis: Acute on Chronic Cor Pulmonale (Right Heart Failure) Activity: Per Instructions section Non-emergency contact: Primary Care Provider and Merchandise For Res[employer] Purchasing Agent Call non-emergency contact if: you have any medication questions and your symptoms worsen Follow-up/Referrals: Luis Obrien MD, PhD [Physician] - (please schedule f/u in 1-2 weeks) Franko Monk DO [Primary Care Provider] - 12/05/22 12:00 pm () Rell Aleman MD [Outside Practitioners] - (please schedule f/u in 2-4 weeks for cirrhosis) Kate Garcia PA-C [Physician Deportation Examiner] - (please schedule patient within 1-2 weeks) Diet: Heart Healthy, Low Potassium (2gm) and Low Sodium (2gm) Fluids: 1500ml (6 cups) Addtl Attending Provider Instructions: [facility] 11/27 for right heart failure as well as high potassium. Your symptoms significantly improved, and your potassium level normalized with IV diuretics (Lasix). Your heart ultrasound (ECHO) showed the right-sided heart failure, and our Merchandise For Res[employer] Purchasing Agent saw you in the hospital and recommended further diuretics, which you received and responded well to. Our Retail Representative (kidney doctor) saw you as well, for the high potassium. You will be discharged in improved, stable condition on 11/27. 1. Please continue to take your Lasix twice per day as already prescribed. 2. We started a medication called Pepcid for heartburn, which was helpful for you - please continue to take Pepcid twice daily for heartburn. 3. Please continue to take your other home medications as prescribed. 4. You will need to follow up with your Merchandise For Res[employer] Purchasing Agent 5. You will also need to follow up with [facility] for your liver disease (cirrhosis), for monitoring and management. 6. Please follow up with your primary care physician. We recommend that you discuss another home sleep study and possibly a CPAP machine with your doctor as this may be helpful for your heart failure. If you experience worsening of your symptoms, and particularly if you start to experience shortness of breath, please do not hesitate to call your doctor and come back to the Emergency Room. It was a pleasure to help provide your care while you were hospitalized. We hope you continue to feel better. Pending Studies at Discharge: No Stand-Alone Forms: My [facility] Smart Holograms, Smoking Cessation Medications and DC Order Prescriptions: New famotidine [Pepcid] 20 mg tablet 20 mg PO BID 42 Days Qty: 84 0RF Continued acetaminophen 325 mg tablet 650 mg PO Q4H PRN (Reason: fever or pain) Qty: 30 0RF doxycycline monohydrate 100 mg capsule 100 mg PO BID Qty: 28 0RF Rx Instructions: STARTED 11/10/22 FOR 14 DAYS levothyroxine 75 mcg tablet 75 mcg PO DAILY Qty: 90 3RF lisinopril 5 mg tablet 5 mg PO DAILY Qty: 30 3RF Hold Instructions: high K nystatin 100,000 unit/gram powder 1 applic topical TID PRN (Reason: rash) Qty: 60 5RF coenzyme Q10 200 mg capsule 200 mg PO DAILY food supplemt, lactose-reduced Liquid See Rx Instructions PO .COMPLEX Rx Instructions: orally 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; atorvastatin 10 mg tablet 10 mg PO HS Qty: 90 3RF magnesium chloride 64 mg tablet,delayed release (DR/EC) 128 mg PO TID Qty: 540 3RF metformin 500 mg tablet 500 mg PO DAILY Qty: 90 3RF spironolactone 25 mg tablet 25 mg PO DAILY Qty: 90 3RF Hold Instructions: high K lactulose 10 gram packet 30 g PO BID Qty: 540 3RF propranolol 10 mg tablet 10 mg PO TID 90 Days Qty: 270 3RF cholecalciferol (vitamin D3) [Vitamin D3] 2,000 unit Capsule 2,000 unit PO QAM multivitamin Tablet 1 tab PO QAM vitamin E 400 unit capsule 400 unit PO QAM sodium chloride 1,000 mg Tablet,Soluble 1,000 mg PO DAILY furosemide [Lasix] 40 mg tablet See Rx Instructions .ROUTE .COMPLEX Rx Instructions: 40 mg orally ;40 mg in am and 20 mg in afternoon Hemorrhoidal (witch rodolfo) 50 % pads, medicated 1 pad topical BID PRN (Reason: Hemorrhoids) Discharge Orders: Discharge Order- CHF (Routine); Ordered 11/27/22 Ordered By: Adam Eric Admission Data Admit Date/Time: 11/21/22 16:49 Attending Provider: Alicja Vang Admit Provider: Dalton Yañez Primary Care Provider: Franko Monk Other Providers: Dalton Yañez ; [employer] ; Jose Alfredo Molina ; Precious Momin ; Tristan Taylor ; Nuris Anand ; Raul Terrazas Other Interventions: Discharge Summary Assessment (RN) Last Done: 11/27/22 12:43 Supervising Physician Co-Signing Physician Notes Resident Physician Supervision Note: I independently interviewed and examined the patient and verified the almanzar history and physical, reviewed labs and image studies and agree with resident findings and care plan. Resident Activity Tracking Resident Involvement: Resident Care Provided Care Provided: Adult Hospital Medicine
== END 2022-11-27 15:09 | disposition home health service (06) | DRG 291 ==
LOC: ED 13:37 → SUATTDRO 16:49 → 2S 16:49 → 2W 11-26 19:15

== ENCOUNTER 2022-12-28 18:29 | Inpatient (IN) ==
--- NOTE | 2022-12-28 18:33 | Emergency Department Note ---
Impression & Plan Encephalopathy acute, Acute hyperkalemia, Hyperammonemia, Dizziness, Nausea vomiting and diarrhea ED Provider Note NAME: JEFFREY TOVAR AGE: 77 SEX: F : 1945 ARRIVES VIA: Ambulance INFORMANT: Patient, ED PROVIDER(S): Navjot Ritchie MD CHIEF COMPLAINT: Nausea vomiting, diarrhea, dizziness MEDICAL DECISION MAKING: Patient presents with above complaints and states this been ongoing since December 22. The patient was seen at that time for recent fall but did have some symptoms prior to that. IV established blood was obtained for CT head CT abdomen and pelvis without contrast. EKG also obtained along with ammonia coags given the patient's history of cirrhosis. The patient's blood work shows leukopenia with very mild anemia hemoglobin 11.9. Platelet count is 82 but the patient does have chronic thrombocytopenia. K idney function slightly worse from before. The patient also does have hyperammonemia. The patient was ordered additional IV fluids and was ordered lactulose. Patient does have potassium 5.8. Anion gap is normal. TSH elevated but free T4 is normal. COVID-negative. Patient CT of the abdomen pelvis shows prominence as well as the ascending colon possible enteritis cirrhotic liver body wall edema small mount of presacral fluid. CT of the head is negative age- indeterminate nondisplaced fracture of the left nasal bone. Chest x-ray without acute process. Patient was ordered the lactulose and I did speak the on-call hospitalist service Dr. Joseph. Prior /Outside records reviewed: I reviewed the patient's most recent I did review a cardiology visit from Dr. Obrien from November 2022. 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 Patient did have AN abdominal ultrasound completed on 26 December which showed cirrhosis without mass with trace perihepatic ascites. Differential diagnosis: Dehydration, hyperammonemia, benign positional vertigo, dehydration, hypovolemia, anemia, tumor, infection, hypoglycemia, electrolyte abnormalities, cardiac sources, intracerebral event, toxicologic, neurologic, as well as other pathologies. Diagnostics, as interpreted by me: ECG: Sinus bradycardia, rate of 57, wide QRS, right bundle branch block pattern, no obvious ST elevations, left axis deviation. Cardiac monitoring: An order was placed for continuous cardiac monitoring. The monitor shows a rate of 65 with sinus rhythm. Patient was placed on pulse oximetry Medical decision rules: None Imaging studies: See below I informally reviewed the patient's CT of the head which was negative for obvious ICH. HPI: Patient presents from home due to concern for dizziness nausea vomiting and diarrhea. The patient does take lactulose for known history of cirrhosis and states that she does take her "food medicine." Patient states that she has had some dizziness and feeling lightheaded but no vertigo since December 22. The patient was seen in the emergency department that time after that she had had a fall. Patient states that she has been taking her medications but has had some vomiting which began today. The patient does not remember how many times that she has vomited. Patient did have a fall back around the time of the first and was evaluated here in the department. Patient does not feel as though she has improved since she was seen. Patient denies any chest pains or shortness of breath and she has no abdominal pain. No known sick contacts or recent travel. She has not noticed blood in the vomitus or stool. Patient denies any untreated stream or well water recent antibiotic use. PAST MEDICAL HISTORY: See Below PAST SURGICAL HISTORY: See Below SOCIAL HISTORY: See Below HOME MEDICATIONS: See Below ALLERGIES: See Below VITALS: See Below PHYSICAL EXAMINATION: GENERAL: NAD, wearing glasses, somewhat somnolent but opens eyes to voice and answers questions appropriately EYE EXAM: Normal conjunctiva. PERRL, no anisocoria and EOM's grossly intact w/o pain. NECK: Supple, no nuchal rigidity, no adenopathy, non-tender. No signs of meningismus. FROM of the neck with good chin to chest and neck extension. No stridor. Chest: Bruising noted to the left breast. No significant TTP to left chest. Bruising at approximately the xiphoid without significant TTP. LUNGS: Clear to auscultation. Normal chest wall mechanics. HEART: NSR, no MRG. ABDOMEN: Abdomen soft, small area of bruising approximately 3 x 3 cm to the left upper quadrant. Non-tender, no masses, no rebound or guarding. BACK: No CVA TTP. SKIN: No rashes, bruising as noted above. UPPER EXTREMITIES: Upper extremities are grossly normal. LOWER EXTREMITIES: Grossly normal, no edema. NEURO EXAM: A GCS of 14, opens eyes to voice,, cranial nerves II-XII grossly intact, normal speech, moves all 4 extremities. Past Med/Surg History Medical History Acute hyperkalemia Acute on chronic diastolic heart failure Anemia Chronic deep vein thrombosis (DVT) Cough Diverticular hemorrhage resolved DVT (deep venous thrombosis) Elevated troponin Esophageal varices determined by endoscopy Fever GERD (gastroesophageal reflux disease) GI bleed none at present Hepatic encephalopathy Lactate blood increase Migraine Monoclonal gammopathy Osteoarthritis Presence of IVC filter Pulmonary embolism 2018 > no known cause > Filter to right groin Rhinovirus Thrombocytopenia Vertigo Volume overload Vomiting and diarrhea Weakness Wheezing Surgical History History of bilateral breast reduction surgery History of bilateral cataract extraction History of carpal tunnel release of both wrists History of section x3 History of colonoscopy History of dilatation and curettage History of esophagogastroduodenoscopy (EGD) History of laparoscopic cholecystectomy History of lumbar spinal fusion hardware in place History of tonsillectomy History of tooth extraction all teeth History of total left knee replacement (TKR) History of total right knee replacement (TKR) Family History Mother Family history of diabetes mellitus Brother Family history of diabetes mellitus 3 brothers Colorectal cancer Myocardial infarction x 2 Father Myocardial infarction Denies family history of Ovarian cancer Prostate cancer Breast cancer Social History (Updated 12/28/22 @ 18:33 by Navjot Ritchie MD) Smoking Status: Never smoker Tobacco Type: Cigarettes Age Started Using Tobacco: 15; Age Quit Using Tobacco: 21; Cigarettes Per Day: stopped 55 years ago; Second Hand Exposure: No; Do You Dip or Chew Tobacco: No; Hx Alcohol Use: No Hx Substance Use: No Preferred Language: Yakut Communication Ability: Effective Visual Impairment: Limited Hearing Ability: Normal Stapler Hand Required: No Beliefs That Will Affect Care: None marital status: / Current Living Situation: Family Current Living Situation Comment: SON AT HOME current occupational status: retired How many Children do You have: 3 Feels Safe at Home: Yes Childhood Exposure to Second-Hand Smoke: Yes Diet: regular caffeine: Yes (tea) during the past year weight has: remained stable Dental Care, Regularly: No Physical Activity Frequency: Does not Exercise Seatbelt Use: always Sunscreen Use: No Do you think of yourself as: straight/heterosexual Gender Identity: Female Assistive Devices: Raised Toilet Seat and Walker Allergies Allergies Allergy/AdvReac Type Severity Reaction Status Date / Time No Known Allergies Allergy Verified 12/28/22 21:15 Home Meds Home Medications Medication Instructions Recorded Confirmed cholecalciferol (vitamin D3) 50 2,000 unit PO QAM 07/01/18 12/28/22 mcg (2,000 unit) capsule (Vitamin D3) multivitamin 1 tab PO QAM 10/14/19 12/28/22 vitamin E 268 mg (400 unit) capsule 400 unit PO QAM 08/14/20 12/28/22 coenzyme Q10 200 mg capsule 200 mg PO DAILY 11/01/21 12/28/22 food supplemt, lactose-reduced See Rx Instructions PO .COMPLEX 09/08/22 12/28/22 furosemide 40 mg tablet 40 mg PO QAM 11/21/22 12/28/22 witch rodolfo 50 % topical pads 1 pad topical BID PRN Hemorrhoids 11/21/22 12/28/22 (Hemorrhoidal (witch rodolfo)) furosemide 40 mg tablet 20 mg PO QPM 12/28/22 12/28/22 Previous Rx's Medication Instructions Recorded acetaminophen 325 mg tablet 650 mg PO Q4H PRN fever or pain 03/23/22 #30 tabs nystatin 100,000 unit/gram topical 1 applic topical TID PRN rash #60 07/20/22 powder grams atorvastatin 10 mg tablet 10 mg PO HS #90 tabs 09/08/22 magnesium chloride 64 mg 128 mg PO TID #540 tabs 09/08/22 (magnesium chloride) tablet,delayed release propranolol 10 mg tablet 10 mg PO TID 90 days #270 tabs 09/08/22 levothyroxine 75 mcg tablet 75 mcg PO DAILY #90 tabs 11/18/22 famotidine 20 mg tablet (Pepcid) 20 mg PO BID 6 weeks #84 tabs 11/27/22 lactulose 10 gram oral packet 30 g PO BID #540 ea 11/29/22 spironolactone 25 mg tablet 25 mg PO DAILY #90 tabs 12/06/22 Results & Data (ED) Vital Signs Vital Signs - 24 hr 12/28/22 18:34 12/28/22 18:34 12/28/22 18:38 Pulse Rate 65 61 Pulse Rate [Finger] Pulse Rate from SpO2 Sensor Pulse Rhythm [Finger] Pulse Strength [Finger] Respiratory Rate 22 Respiratory Effort / Characteristics Non-Labored Respiratory Depth Normal Normal Respiratory Pattern Blood Pressure 161/109 H Blood Pressure [Right Arm] Blood Pressure Mean 126 Blood Pressure Mean [Right Arm] Pulse Oximetry 98 Oxygen Delivery Method Sepsis Recent Fever Within 48 Hours No Sepsis New/Unexplained Change in Mental Status No Sepsis Action Taken by Nursing No Action Required 12/28/22 19:16 12/28/22 18:35 12/28/22 18:37 Pulse Rate 57 L 55 L Pulse Rate [Finger] Pulse Rate from SpO2 Sensor Pulse Rhythm [Finger] Pulse Strength [Finger] Respiratory Rate 15 Respiratory Effort / Characteristics Respiratory Depth Respiratory Pattern Blood Pressure 161/109 H Blood Pressure [Right Arm] Blood Pressure Mean 141 Blood Pressure Mean [Right Arm] Pulse Oximetry 97 98 Oxygen Delivery Method Room Air Sepsis Recent Fever Within 48 Hours Sepsis New/Unexplained Change in Mental Status Sepsis Action Taken by Nursing 12/28/22 19:00 12/28/22 19:10 12/28/22 19:27 Pulse Rate 56 L 58 L 55 L Pulse Rate [Finger] Pulse Rate from SpO2 Sensor 56 L 58 L Pulse Rhythm [Finger] Pulse Strength [Finger] Respiratory Rate 16 15 23 Respiratory Effort / Characteristics Respiratory Depth Respiratory Pattern Blood Pressure 158/84 H Blood Pressure [Right Arm] Blood Pressure Mean 108 Blood Pressure Mean [Right Arm] Pulse Oximetry 99 99 Oxygen Delivery Method Sepsis Recent Fever Within 48 Hours Sepsis New/Unexplained Change in Mental Status Sepsis Action Taken by Nursing 12/28/22 19:30 12/28/22 19:40 12/28/22 20:03 Pulse Rate 54 L 55 L 57 L Pulse Rate [Finger] Pulse Rate from SpO2 Sensor 54 L 57 L Pulse Rhythm [Finger] Pulse Strength [Finger] Respiratory Rate 14 13 12 Respiratory Effort / Characteristics Respiratory Depth Respiratory Pattern Blood Pressure Blood Pressure [Right Arm] Blood Pressure Mean Blood Pressure Mean [Right Arm] Pulse Oximetry 99 99 Oxygen Delivery Method Sepsis Recent Fever Within 48 Hours Sepsis New/Unexplained Change in Mental Status Sepsis Action Taken by Nursing 12/28/22 20:04 12/28/22 20:04 12/28/22 20:10 Pulse Rate 57 L 55 L Pulse Rate [Finger] Pulse Rate from SpO2 Sensor 56 L 54 L Pulse Rhythm [Finger] Pulse Strength [Finger] Respiratory Rate 16 12 Respiratory Effort / Characteristics Respiratory Depth Respiratory Pattern Blood Pressure 97/76 L Blood Pressure [Right Arm] Blood Pressure Mean 85 Blood Pressure Mean [Right Arm] Pulse Oximetry 86 L 92 Oxygen Delivery Method Sepsis Recent Fever Within 48 Hours Sepsis New/Unexplained Change in Mental Status Sepsis Action Taken by Nursing 12/28/22 20:31 12/28/22 20:31 12/28/22 21:00 Pulse Rate 57 L 61 Pulse Rate [Finger] 59 L Pulse Rate from SpO2 Sensor 59 L Pulse Rhythm [Finger] Regular Pulse Strength [Finger] Normal Respiratory Rate 12 16 15 Respiratory Effort / Characteristics Non-Labored Respiratory Depth Normal Respiratory Pattern Regular Blood Pressure 149/105 H Blood Pressure [Right Arm] 166/100 H Blood Pressure Mean 119 Blood Pressure Mean [Right Arm] 122 Pulse Oximetry 94 97 Oxygen Delivery Method Room Air Room Air Sepsis Recent Fever Within 48 Hours Sepsis New/Unexplained Change in Mental Status Sepsis Action Taken by Nursing 12/28/22 21:01 12/28/22 21:31 12/28/22 22:00 Pulse Rate 59 L 58 L Pulse Rate [Finger] 60 Pulse Rate from SpO2 Sensor 57 L Pulse Rhythm [Finger] Pulse Strength [Finger] Respiratory Rate 16 13 14 Respiratory Effort / Characteristics Non-Labored Respiratory Depth Normal Respiratory Pattern Blood Pressure 166/100 H 160/81 H Blood Pressure [Right Arm] 163/134 H Blood Pressure Mean 122 107 Blood Pressure Mean [Right Arm] 143 Pulse Oximetry 95 92 99 Oxygen Delivery Method Room Air Sepsis Recent Fever Within 48 Hours Sepsis New/Unexplained Change in Mental Status Sepsis Action Taken by [facility] Medications Current Medication List: was personally reviewed by me Laboratory Data Attestation: I reviewed the patient's lab results. 12/28/22 19:09 12/28/22 19:09 Lab Results 12/28/22 12/28/22 12/28/22 Range/Units 19:09 19:09 19:09 WBC RBC Hgb Hct MCV MCH MCHC RDW Std Deviation RDW Coeff of Leah Plt Count MPV Immature Gran % (Auto) Neut % (Auto) Lymph % (Auto) [place] % (Auto) Eos % (Auto) Baso % (Auto) Neut # (Auto) Lymph # (Auto) [place] # (Auto) Eos # (Auto) Baso # (Auto) Immature Gran # (Auto) Absolute Nucleated RBC Nucleated RBC % (auto) Neutrophils % (Manual) Band Neutrophils % Lymphocytes % (Manual) Prolymphocyte % Reactive Lymphs % (Man) Monocytes % (Manual) Eosinophils % (Manual) Basophils % (Manual) Metamyelocytes % (Man) Myelocytes % (Man) Promyelocytes % (Man) Blast Cells % (Manual) Plasma Cell % (Manual) Other Cells % Nucleated RBC % Neutrophils # (Manual) Band Neutrophils # Total Absolute Neuts Lymphocytes # (Manual) Prolymphocyte # Reactive Lymphs # Total Abs Lymphocytes Monocytes # (Manual) Eosinophils # (Manual) Basophils # (Manual) Metamyelocytes # (Man) Myelocytes # (Manual) Promyelocytes # (Man) Blast Cells # (Man) Plasma Cell # (Manual) Other Cells # Nucleated RBCs # (Man) Hypersegmented Neuts Hyposegmented Neuts Hypogranular Neuts Large Granular Lymphs # Lrg Granular Lymphs Hairy Cells Smudge Cells Toxic Granulation Toxic Vacuolation Dohle Bodies Lionel Rods Platelet Estimate Hypogranular Platelets Giant Platelets Platelet Satelliting RBC Morphology Polychromasia Hypochromasia Poikilocytosis Basophilic Stippling Anisocytosis Microcytosis Macrocytosis Spherocytes Pappenheimer Bodies Sickle Cells Target Cells Tear Drop Cells Ovalocytes Stomatocytes [place] Bodies Echinocytes Acanthocytes (Spur) Rouleaux RBC Agglutinates Schistocytes Sezary Cell PT 13.7 H (9.0-12.0) Seconds INR 1.3 H (0.9-1.1) Sodium 137 (136-145) mmol/L Potassium 5.8 H (3.5-5.1) mmol/L Chloride 112 H (98-107) mmol/L Carbon Dioxide 17 L (21-32) mmol/L Anion Gap 8 (3-11) BUN 67 H (6-23) mg/dl Creatinine 1.91 H (0.6-1.2) mg/dl Est Cr Clr Drug Dosing 28.3 ml/min Est GFR ( Amer) 28.4 ml/min Est GFR (Non-Af Amer) 24.5 ml/min BUN/Creatinine Ratio 35.1 H (10-20) Glucose 131 H (70-99(Fasting)) mg/dl Calcium 8.7 (8.6-10.3) mg/dl Magnesium 1.7 (1.7-2.4) mg/dl Total Bilirubin 0.6 (0.2-1.0) mg/dl AST 33 (13-39) U/L ALT 18 (7-52) U/L Alkaline Phosphatase 95 (34-104) U/L Ammonia 272.0 H (18-72) umol/L Troponin I High Sens 9.7 (0-14) pg/ml Total Protein 8.1 (6.0-8.3) gm/dl Albumin 2.8 L (3.4-5.0) gm/dl Globulin 5.3 H (2.5-4.0) gm/dl Albumin/Globulin Ratio 0.5 L (0.9-2) TSH (0.300-4.500) uIu/ml Free T4 (0.61-1.60) ng/dl SARS-CoV-2, RNA, NAAT (NEGATIVE) Blood Parasites ID 12/28/22 12/28/22 12/28/22 Range/Units 19:09 19:09 19:10 WBC Cancelled RBC Cancelled Hgb Cancelled Hct Cancelled MCV Cancelled MCH Cancelled MCHC Cancelled RDW Std Deviation Cancelled RDW Coeff of Leah Cancelled Plt Count Cancelled MPV Cancelled Immature Gran % (Auto) Cancelled Neut % (Auto) Cancelled Lymph % (Auto) Cancelled [place] % (Auto) Cancelled Eos % (Auto) Cancelled Baso % (Auto) Cancelled Neut # (Auto) Cancelled Lymph # (Auto) Cancelled [place] # (Auto) Cancelled Eos # (Auto) Cancelled Baso # (Auto) Cancelled Immature Gran # (Auto) Cancelled Absolute Nucleated RBC Cancelled Nucleated RBC % (auto) Cancelled Neutrophils % (Manual) Cancelled Band Neutrophils % Cancelled Lymphocytes % (Manual) Cancelled Prolymphocyte % Cancelled Reactive Lymphs % (Man) Cancelled Monocytes % (Manual) Cancelled Eosinophils % (Manual) Cancelled Basophils % (Manual) Cancelled Metamyelocytes % (Man) Cancelled Myelocytes % (Man) Cancelled Promyelocytes % (Man) Cancelled Blast Cells % (Manual) Cancelled Plasma Cell % (Manual) Cancelled Other Cells % Cancelled Nucleated RBC % Cancelled Neutrophils # (Manual) Cancelled Band Neutrophils # Cancelled Total Absolute Neuts Cancelled Lymphocytes # (Manual) Cancelled Prolymphocyte # Cancelled Reactive Lymphs # Cancelled Total Abs Lymphocytes Cancelled Monocytes # (Manual) Cancelled Eosinophils # (Manual) Cancelled Basophils # (Manual) Cancelled Metamyelocytes # (Man) Cancelled Myelocytes # (Manual) Cancelled Promyelocytes # (Man) Cancelled Blast Cells # (Man) Cancelled Plasma Cell # (Manual) Cancelled Other Cells # Cancelled Nucleated RBCs # (Man) Cancelled Hypersegmented Neuts Cancelled Hyposegmented Neuts Cancelled Hypogranular Neuts Cancelled Large Granular Lymphs Cancelled # Lrg Granular Lymphs Cancelled Hairy Cells Cancelled Smudge Cells Cancelled Toxic Granulation Cancelled Toxic Vacuolation Cancelled Dohle Bodies Cancelled Lionel Rods Cancelled Platelet Estimate Cancelled Hypogranular Platelets Cancelled Giant Platelets Cancelled Platelet Satelliting Cancelled RBC Morphology Cancelled Polychromasia Cancelled Hypochromasia Cancelled Poikilocytosis Cancelled Basophilic Stippling Cancelled Anisocytosis Cancelled Microcytosis Cancelled Macrocytosis Cancelled Spherocytes Cancelled Pappenheimer Bodies Cancelled Sickle Cells Cancelled Target Cells Cancelled Tear Drop Cells Cancelled Ovalocytes Cancelled Stomatocytes Cancelled [place] Bodies Cancelled Echinocytes Cancelled Acanthocytes (Spur) Cancelled Rouleaux Cancelled RBC Agglutinates Cancelled Schistocytes Cancelled Sezary Cell Cancelled PT (9.0-12.0) Seconds INR (0.9-1.1) Sodium (136-145) mmol/L Potassium (3.5-5.1) mmol/L Chloride (98-107) mmol/L Carbon Dioxide (21-32) mmol/L Anion Gap (3-11) BUN (6-23) mg/dl Creatinine (0.6-1.2) mg/dl Est Cr Clr Drug Dosing ml/min Est GFR ( Amer) ml/min Est GFR (Non-Af Amer) ml/min BUN/Creatinine Ratio (10-20) Glucose (70-99(Fasting)) mg/dl Calcium (8.6-10.3) mg/dl Magnesium (1.7-2.4) mg/dl Total Bilirubin (0.2-1.0) mg/dl AST (13-39) U/L ALT (7-52) U/L Alkaline Phosphatase (34-104) U/L Ammonia (18-72) umol/L Troponin I High Sens (0-14) pg/ml Total Protein (6.0-8.3) gm/dl Albumin (3.4-5.0) gm/dl Globulin (2.5-4.0) gm/dl Albumin/Globulin Ratio (0.9-2) TSH 7.633 H (0.300-4.500) uIu/ml Free T4 0.95 (0.61-1.60) ng/dl SARS-CoV-2, RNA, NAAT NEGATIVE (NEGATIVE) Blood Parasites ID Cancelled 12/28/22 Range/Units 20:04 WBC 4.23 L RBC 3.93 L Hgb 11.9 L Hct 40.3 MCV 102.5 H MCH 30.3 MCHC 29.5 L RDW Std Deviation 76.5 H RDW Coeff of Leah 19.9 H Plt Count 82 L MPV 10.8 Immature Gran % (Auto) 0.2 Neut % (Auto) 69.3 Lymph % (Auto) 20.6 [place] % (Auto) 7.3 Eos % (Auto) 1.9 Baso % (Auto) 0.7 Neut # (Auto) 2.93 Lymph # (Auto) 0.87 L [place] # (Auto) 0.31 Eos # (Auto) 0.08 Baso # (Auto) 0.03 Immature Gran # (Auto) 0.01 Absolute Nucleated RBC Nucleated RBC % (auto) Neutrophils % (Manual) Band Neutrophils % Lymphocytes % (Manual) Prolymphocyte % Reactive Lymphs % (Man) Monocytes % (Manual) Eosinophils % (Manual) Basophils % (Manual) Metamyelocytes % (Man) Myelocytes % (Man) Promyelocytes % (Man) Blast Cells % (Manual) Plasma Cell % (Manual) Other Cells % Nucleated RBC % Neutrophils # (Manual) Band Neutrophils # Total Absolute Neuts Lymphocytes # (Manual) Prolymphocyte # Reactive Lymphs # Total Abs Lymphocytes Monocytes # (Manual) Eosinophils # (Manual) Basophils # (Manual) Metamyelocytes # (Man) Myelocytes # (Manual) Promyelocytes # (Man) Blast Cells # (Man) Plasma Cell # (Manual) Other Cells # Nucleated RBCs # (Man) Hypersegmented Neuts Hyposegmented Neuts Hypogranular Neuts Large Granular Lymphs # Lrg Granular Lymphs Hairy Cells Smudge Cells Toxic Granulation Toxic Vacuolation Dohle Bodies Lionel Rods Platelet Estimate Hypogranular Platelets Giant Platelets Platelet Satelliting RBC Morphology Polychromasia Hypochromasia Poikilocytosis Basophilic Stippling Anisocytosis Microcytosis Macrocytosis Spherocytes Pappenheimer Bodies Sickle Cells Target Cells Tear Drop Cells Ovalocytes Stomatocytes [place] Bodies Echinocytes Acanthocytes (Spur) Rouleaux RBC Agglutinates Schistocytes Sezary Cell PT (9.0-12.0) Seconds INR (0.9-1.1) Sodium (136-145) mmol/L Potassium (3.5-5.1) mmol/L Chloride (98-107) mmol/L Carbon Dioxide (21-32) mmol/L Anion Gap (3-11) BUN (6-23) mg/dl Creatinine (0.6-1.2) mg/dl Est Cr Clr Drug Dosing ml/min Est GFR ( Amer) ml/min Est GFR (Non-Af Amer) ml/min BUN/Creatinine Ratio (10-20) Glucose (70-99(Fasting)) mg/dl Calcium (8.6-10.3) mg/dl Magnesium (1.7-2.4) mg/dl Total Bilirubin (0.2-1.0) mg/dl AST (13-39) U/L ALT (7-52) U/L Alkaline Phosphatase (34-104) U/L Ammonia (18-72) umol/L Troponin I High Sens (0-14) pg/ml Total Protein (6.0-8.3) gm/dl Albumin (3.4-5.0) gm/dl Globulin (2.5-4.0) gm/dl Albumin/Globulin Ratio (0.9-2) TSH (0.300-4.500) uIu/ml Free T4 (0.61-1.60) ng/dl SARS-CoV-2, RNA, NAAT (NEGATIVE) Blood Parasites ID Administered Medications Discontinued Medications Sodium Chloride (Nss 1000ml) 250 mls @ 999 mls/hr IV .Q16M ONE Stop: 12/28/22 19:02 Last Infusion: 12/28/22 19:28 Dose: 0 mls/hr Documented By: Admin: 12/28/22 19:09 Dose: 999 mls/hr Documented By: ADRIANA Famotidine (Pepcid 20mg Iv Push) 20 mg in 5 mls @ 2.5 mls/min IV NOW STA Stop: 12/28/22 19:32 Last Admin: 12/28/22 19:40 Dose: 2.5 mls/min Documented By: ADRIANA Sodium Chloride (Nss 1000ml) 500 mls @ 999 mls/hr IV .Q31M ONE Stop: 12/28/22 21:10 Last Infusion: 12/28/22 21:55 Dose: 0 mls/hr Documented By: Admin: 12/28/22 21:24 Dose: 999 mls/hr Documented By: LLOYD Lactulose (Lactulose Syrup 20 Gm/30 Ml Udc) 30 gm PO NOW STA Stop: 12/28/22 20:41 Last Admin: 12/28/22 21:24 Dose: 30 gm Documented By: LLOYD Ondansetron HCl (Ondansetron Inj 2 Mg/Ml 2 Ml Vial) 4 mg IV NOW STA Stop: 12/28/22 19:32 Last Admin: 12/28/22 19:40 Dose: 4 mg Documented By: ADRIANA Imaging Data Radiologist's Impression: Abdomen/Pelvis CT 12/28/22 18:44 Exam(s): CT ABDOMEN + PELVIS Without Contrast EXAM: CT Abdomen and Pelvis Without Intravenous Contrast CLINICAL HISTORY: Reason for exam: vomiting/diarrhea; h/o cirrhosis, fall 1 week ago. TECHNIQUE: Axial computed tomography images of the abdomen and pelvis without intravenous contrast. CTDI is 28.14 mGy and DLP is 1380.75 mGy-cm. Automated exposure control was utilized for the study. A dose lowering technique was utilized adhering to the principles of ALARA. COMPARISON: CT abdomen/pelvis on 08/16/2022 FINDINGS: Lung bases: Lower lung atelectasis. Heart: Cardiomegaly. Small pericardial effusion. ABDOMEN: Liver: Cirrhotic liver. Gallbladder and bile ducts: Prior cholecystectomy. Probable mild postcholecystectomy ductal ectasia. Pancreas: Unremarkable. No ductal dilation. Spleen: Unremarkable. No splenomegaly. Adrenals: Unremarkable. No mass. Kidneys and ureters: Nonspecific bilateral perinephric fat stranding. No hydronephrosis or stone. Stomach and bowel: Mild prominence of the ng of the ascending colon may be secondary to underdistention. Colitis is not excluded. Fluid and gas-filled small bowel loops could represent enteritis in the appropriate clinical setting. Evaluation of the stomach is limited by underdistention. Diverticulosis without evidence of diverticulitis. PELVIS: Appendix: Appendix is not definitely visualized on this exam. Bladder: Unremarkable. No stones. Reproductive: Unremarkable as visualized. ABDOMEN and PELVIS: Intraperitoneal space: Small amount of presacral fluid. Small amount of ascites. No free air. Bones/joints: Increased irregularity of endplates at T8-9 may be secondary to degenerative change. Discitis/osteomyelitis cannot be excluded. Degenerative changes of the spine. Postsurgical changes from L4-S1. Grade 1 anterolisthesis of L5 on S1. Stable chronic compression deformity of the S1 vertebral body. No dislocation. Soft tissues: Body wall edema. Component of cellulitis would be difficult to exclude. Vasculature: Phleboliths in the pelvis. Atherosclerotic changes of the vasculature. No aortic aneurysm. IVC filter in place. Lymph nodes: Similar prominent. Nonspecific adis hepatis lymph nodes. IMPRESSION: 1. Mild prominence of the ng of the ascending colon may be secondary to underdistention. Colitis is not excluded. 2. Fluid and gas-filled small bowel loops could represent enteritis in the appropriate clinical setting. 3. Cirrhotic liver. 4. Body wall edema. Component of cellulitis would be difficult to exclude. 5. Small amount of presacral fluid. Small amount of ascites. 6. Increased irregularity of endplates at T8-9 may be secondary to degenerative change. Discitis/osteomyelitis cannot be excluded. Electronically signed by: Mark Kent M.D. 12/28/22 20:[address] 12/28/22 18:44 Exam(s): CT HEAD Without Contrast EXAM: CT Head Without Intravenous Contrast CLINICAL HISTORY: Reason for exam: lethargy, fall. TECHNIQUE: Axial computed tomography images of the head/brain without intravenous contrast. CTDI is 38.74 mGy and DLP is 624.41 mGy-cm. Automated exposure control was utilized for the study. A dose lowering technique was utilized adhering to the principles of ALARA. COMPARISON: CT head on 02/28/2022. FINDINGS: Brain: No acute infarct or hemorrhage identified. No extra-axial fluid collection. No mass effect or midline shift. Scattered areas of hypoattenuation in the supratentorial white matter likely represent chronic small vessel ischemic changes. Ventricles and sulci: Prominence of the ventricles and sulci is likely secondary to cerebral volume loss. Bones: Hyperostosis frontalis interna. Age-indeterminate nondisplaced fracture of the left nasal bone. Subcutaneous tissues: Normal. Sinuses: Normal. No air-fluid levels or mucosal thickening. Mastoid air cells: Normal. Orbits: Bilateral lens implants. Other: Atherosclerotic calcifications in the intracranial vasculature. IMPRESSION: 1. No acute intracranial abnormality. 2. Chronic small vessel ischemic changes and cerebral volume loss. 3. Age-indeterminate nondisplaced fracture of the left nasal bone. Electronically signed by: Mark Kent M.D. 12/28/22 20:25 PM Chest X-Ray 12/28/22 18:45 XR chest 1V portable HISTORY: 77 years-old Female weakness acute weakness COMPARISON: 12/22/2022 TECHNIQUE: AP view the chest FINDINGS: Cardiac silhouette is enlarged. Mild left basilar atelectasis. No pneumothorax, pleural effusion, or overt pulmonary edema. Cholecystectomy. Bones appear grossly intact. IMPRESSION: Cardiomegaly without acute process. ACT 112: Negative or not required by law. The above report was generated using voice recognition software. It may contain grammatical, syntax or spelling errors. Electronically signed by: Victor M Reyna M.D. 12/28/2022 6:56 PM Discharge Plan Visit Data Chief Complaint: Nausea Stated Complaint: NAUSEA, VOMITING, DIZZINESS ED Provider: Navjot Ritchie Discharge Problem: Encephalopathy acute, Acute hyperkalemia, Hyperammonemia, Dizziness, Nausea vomiting and diarrhea Forms Stand Alone Forms: [facility] Direct Prescriptions Prescriptions: No Action acetaminophen 325 mg tablet 650 mg PO Q4H PRN (Reason: fever or pain) Qty: 30 0RF levothyroxine 75 mcg tablet 75 mcg PO DAILY Qty: 90 3RF lactulose 10 gram packet 30 g PO BID Qty: 540 3RF nystatin 100,000 unit/gram powder 1 applic topical TID PRN (Reason: rash) Qty: 60 5RF coenzyme Q10 200 mg capsule 200 mg PO DAILY food supplemt, lactose-reduced Liquid See Rx Instructions PO .COMPLEX Rx Instructions: orally 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; atorvastatin 10 mg tablet 10 mg PO HS Qty: 90 3RF magnesium chloride 64 mg tablet,delayed release (DR/EC) 128 mg PO TID Qty: 540 3RF propranolol 10 mg tablet 10 mg PO TID 90 Days Qty: 270 3RF spironolactone 25 mg tablet 25 mg PO DAILY Qty: 90 3RF Hold Instructions: high K cholecalciferol (vitamin D3) [Vitamin D3] 2,000 unit Capsule 2,000 unit PO QAM multivitamin Tablet 1 tab PO QAM vitamin E 400 unit capsule 400 unit PO QAM furosemide 40 mg tablet 40 mg PO QAM Hemorrhoidal (witch rodolfo) 50 % pads, medicated 1 pad topical BID PRN (Reason: Hemorrhoids) famotidine [Pepcid] 20 mg tablet 20 mg PO BID 42 Days Qty: 84 0RF furosemide 40 mg tablet 20 mg PO QPM Referrals Referrals: Franko Monk DO [Primary Care Provider] -
[2022-12-28] MEDS ORDERED: SODIUM CHLORIDE 0.9% 1000ML 250 ML IV ONE (18:47)
--- NOTE | 2022-12-28 18:58 | XRay Report ---
XR chest 1V portable HISTORY: 77 years-old Female weakness acute weakness COMPARISON: 12/22/2022 TECHNIQUE: AP view the chest FINDINGS: Cardiac silhouette is enlarged. Mild left basilar atelectasis. No pneumothorax, pleural effusion, or overt pulmonary edema. Cholecystectomy. Bones appear grossly intact. IMPRESSION: Cardiomegaly without acute process. ACT 112: Negative or not required by law. The above report was generated using voice recognition software. It may contain grammatical, syntax o r spelling errors. Electronically signed by: Victor M Reyna M.D. 12/28/2022 6:56 PM
[2022-12-28] MEDS ORDERED: FAMOTIDINE 20MG IV PUSH 20 MG/5 ML SYR IV STA (19:31)
[2022-12-28] MEDS ORDERED: ONDANSETRON INJ 2 MG/ML 2 ML VIAL IV STA (19:31)
[2022-12-28 19:49] LABS: INR 1.3 (0.9-1.1); Prothrombin Time 13.7 Seconds (9.0-12.0)
[2022-12-28 19:55] LABS: Troponin I High Sensitivity 9.7 pg/ml (0-14)
[2022-12-28 19:59] LABS: Thyroid Stimulating Hormone 7.633 uIu/ml (0.300-4.500)
[2022-12-28 20:16] LABS: Basophils # (auto) 0.03 K/uL (0-0.2); Basophils % (auto) 0.7 %; Eosinophils # (auto) 0.08 K/uL (0-0.50); Eosinophils % (auto) 1.9 %; Hematocrit (blood only) 40.3 % (37.0-47.0); Hemoglobin 11.9 g/dl (12.0-16.0); Immature Granulocytes # (auto) 0.01 K/uL (0.01-0.20); Immature Granulocytes % (auto) 0.2 %; Lymphocytes # (auto) 0.87 K/uL (1.2-3.4); Lymphocytes % (auto) 20.6 %; Mean Corpuscular Hemoglobin 30.3 pg (25.0-34.0); Mean Corpuscular Hgb Conc 29.5 g/dL (32.0-36.0); Mean Corpuscular Volume 102.5 fL (80.0-100.0); Mean Platelet Volume 10.8 fL (9.4-12.4); Monocytes # (auto) 0.31 K/uL (0.11-0.59); Monocytes % (auto) 7.3 %; Neutrophils # (auto) 2.93 K/uL (1.40-6.50); Neutrophils % (auto) 69.3 %; Platelet Count 82 K/uL (130-400); RDW Coefficient of Variation 19.9 % (11.5-14.5); RDW Standard Deviation 76.5 fL (36.4-46.3); Red Blood Count 3.93 M/uL (4.20-5.40); White Blood Count 4.23 K/ul (4.8-10.8)
--- NOTE | 2022-12-28 20:20 | CT Scan Report ---
Exam(s): CT ABDOMEN + PELVIS Without Contrast EXAM: CT Abdomen and Pelvis Without Intravenous Contrast CLINICAL HISTORY: Reason for exam: vomiting/diarrhea; h/o cirrhosis, fall 1 week ago. TECHNIQUE: Axial computed tomography images of the abdomen and pelvis without intravenous contrast. CTDI is 28.14 mGy and DLP is 1380.75 mGy-cm. Automated exposure control was utilized for the study. A dose lowering technique was utilized adhering to the principles of ALARA. COMPARISON: CT abdomen/pelvis on 08/16/2022 FINDINGS: Lung bases: Lower lung atelectasis. Heart: Cardiomegaly. Small pericardial effusion. ABDOMEN: Liver: Cirrhotic liver. Gallbladder and bile ducts: Prior cholecystectomy. Probable mild postcholecystectomy ductal ectasia. Pancreas: Unremarkable. No ductal dilation. Spleen: Unremarkable. No splenomegaly. Adrenals: Unremarkable. No mass. Kidneys and ureters: Nonspecific bilateral perinephric fat stranding. No hydronephrosis or stone. Stomach and bowel: Mild prominence of the ng of the ascending colon may be secondary to underdistention. Colitis is not excluded. Fluid and gas-filled small bowel loops could represent enteritis in the appropriate clinical setting. Evaluation of the stomach is limited by underdistention. Diverticulosis without evidence of diverticulitis. PELVIS: Appendix: Appendix is not definitely visualized on this exam. Bladder: Unremarkable. No stones. Reproductive: Unremarkable as visualized. ABDOMEN and PELVIS: Intraperitoneal space: Small amount of presacral fluid. Small amount of ascites. No free air. Bones/joints: Increased irregularity of endplates at T8-9 may be secondary to degenerative change. Discitis/osteomyelitis cannot be excluded. Degenerative changes of the spine. Postsurgical changes from L4-S1. Grade 1 anterolisthesis of L5 on S1. Stable chronic compression deformity of the S1 vertebral body. No dislocation. Soft tissues: Body wall edema. Component of cellulitis would be difficult to exclude. Vasculature: Phleboliths in the pelvis. Atherosclerotic changes of the vasculature. No aortic aneurysm. IVC filter in place. Lymph nodes: Similar prominent. Nonspecific adis hepatis lymph nodes. IMPRESSION: 1. Mild prominence of the ng of the ascending colon may be secondary to underdistention. Colitis is not excluded. 2. Fluid and gas-filled small bowel loops could represent enteritis in the appropriate clinical setting. 3. Cirrhotic liver. 4. Body wall edema. Component of cellulitis would be difficult to exclude. 5. Small amount of presacral fluid. Small amount of ascites. 6. Increased irregularity of endplates at T8-9 may be secondary to degenerative change. Discitis/osteomyelitis cannot be excluded. Electronically signed by: Mark Kent M.D. 12/28/22 20:19 PM
[2022-12-28 20:26] LABS: Albumin Level 2.8 gm/dl (3.4-5.0); Bilirubin,Total 0.6 mg/dl (0.2-1.0); Calcium 8.7 mg/dl (8.6-10.3); Magnesium 1.7 mg/dl (1.7-2.4); Potassium 5.8 mmol/L (3.5-5.1)
--- NOTE | 2022-12-28 20:26 | CT Scan Report ---
Exam(s): CT HEAD Without Contrast EXAM: CT Head Without Intravenous Contrast CLINICAL HISTORY: Reason for exam: lethargy, fall. TECHNIQUE: Axial computed tomography images of the head/brain without intravenous contrast. CTDI is 38.74 mGy and DLP is 624.41 mGy-cm. Automated exposure control was utilized for the study. A dose lowering technique was utilized adhering to the principles of ALARA. COMPARISON: CT head on 02/28/2022. FINDINGS: Brain: No acute infarct or hemorrhage identified. No extra-axial fluid collection. No mass effect or midline shift. Scattered areas of hypoattenuation in the supratentorial white matter likely represent chronic small vessel ischemic changes. Ventricles and sulci: Prominence of the ventricles and sulci is likely secondary to cerebral volume loss. Bones: Hyperostosis frontalis interna. Age-indeterminate nondisplaced fracture of the left nasal bone. Subcutaneous tissues: Normal. Sinuses: Normal. No air-fluid levels or mucosal thickening. Mastoid air cells: Normal. Orbits: Bilateral lens implants. Other: Atherosclerotic calcifications in the intracranial vasculature. IMPRESSION: 1. No acute intracranial abnormality. 2. Chronic small vessel ischemic changes and cerebral volume loss. 3. Age-indeterminate nondisplaced fracture of the left nasal bone. Electronically signed by: Mark Kent M.D. 12/28/22 20:25 PM
[2022-12-28 20:32] LABS: Albumin Globulin Ratio 0.5 (0.9-2); BUN Creatinine Ratio 35.1 (10-20); Creatinine Clr Calc Pharmacy 28.3 ml/min; Est GFR (African American) 28.4 ml/min; Est GFR (Non-African American) 24.5 ml/min; Globulin 5.3 gm/dl (2.5-4.0); Total Protein 8.1 gm/dl (6.0-8.3)
[2022-12-28 20:33] LABS: T4 Free Thyroxine 0.95 ng/dl (0.61-1.60)
[2022-12-28] MEDS ORDERED: LACTULOSE SYRUP 20 GM/30 ML UDC PO STA (20:40)
[2022-12-28] MEDS ORDERED: SODIUM CHLORIDE 0.9% 1000ML 500 ML IV ONE (20:40)
--- NOTE | 2022-12-28 21:35 | History & Physical Report ---
Date of Service December 28, 2022 Assessment & Plan (1) Nausea & vomiting: Plan: Pt is a 77 yo female with complex PMH of HFpEF w/ RV failure, chronic DVT w/ IVC filter, aortic stenosis, HTN, CKD, strep bacteremia w/ infective endocarditis, MGUS, cirrhosis, DM, HLD, ROSALES on CPAP, and chronic back pain presenting to the hospital due to nausea and dizziness that began after a recent fall (12/22)and vomiting that began yesterday. Nausea/vomiting - viral enteritis vs. hyperammonemia vs. recent head injury - zofran 4 mg PRN, pantoprazole 40 mg daily - CT head neg for acute findings - CTAP does note possible colitis/enteritis/ostemyelitis of spine; however, pt afebrile, no abdominal complaints, no back pain, no leukocytosis - if no improvement with lowering of ammonia, would consider more of a viral/infectious cause EMY on CKD - baseline appears to be ~1.4-1.6 - Cr 1.91 upon admission - s/p 750 mL NS in ER - cautious with hydration in the setting of her severe heart failure; hydrate with LR at 60mL/hr x1 bag - repeat BMP in AM Hyperkalemia - 5.8 upon admission; no acute EKG changes, asymptomatic - ordered 1g Ca gluconate, insulin w/ D50 - hold spironolactone and lisinopril - recheck in AM Hyperammonemia in the setting of cirrhosis - in the setting of worsening cirrhosis vs. missed doses of lactulose over the past few days - continue lactulose 30 g TID w/ goal of 2-3 BM per day - recheck ammonia in AM HFpEF, cor pulmonale, aortic stenosis - follows w/ outpatient with heart failure clinic, cardiology - most recent echo 11/22 showed EF 50-55% Afib - due to hx of serious GI bleeds, anticoagulation has been deferred; per pt, she was tried again on anticoagulation in the fall and she rebled - pt currently in sinus rhythm DM - no outpatient regimen; metformin recently d/c dt adequate control - will recheck glucose with BMP, A1c in the AM - if still elevated, may consider adding a regimen Hypercholesterolemia - continue home atorvastatin Hypothyroidism - TSH 7.633 - continue home levothyroxine while hospitalized - consider rechecking TSH outpatient Fluids: LR at 60 mL/hr Diet: HH, DM, low sodium, low potassium DVT ppx: contraindicated w/ hx of GI bleed and IVC filter in place Code: DNR/DNI Dispo: med/surg w/ tele (2) Cor pulmonale: (3) Chronic kidney disease, stage III (moderate): (4) PAF (paroxysmal atrial fibrillation): (5) 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 to alcohol: (6) EMY (acute kidney injury): (7) Aortic stenosis: (8) ROSALES (obstructive sleep apnea): (9) Diabetes mellitus with peripheral vascular disease: (10) Hypercholesterolemia: (11) Acute hyperkalemia: (12) Hyperammonemia: History of Present Illness Chief Complaint: nausea, vomiting, dizziness Primary Care Provider: Franko Monk DO Pt is a 77 yo female with complex PMH of HFpEF w/ RV failure, chronic DVT w/ IVC filter, aortic stenosis, HTN, CKD, strep bacteremia w/ infective endocarditis, MGUS, cirrhosis, DM, HLD, ROSALES on CPAP, and chronic back pain presenting to the hospital due to nausea and dizziness that began after a recent fall and vomiting that began yesterday. Pt had a fall 12/22. She has been feeling dizzy/nausea since then. However, yesterday, she began vomiting. She denies hematochezia. She also endorses generalized weakness and decreased appetite. She notes she has only taken 1 dose of lactulose the past two days (instead of her usual 3 doses) because she has been feeling ill. Pt endorses changes in her vision which she describes as feeling "whoozy" where she has spots in her vision. She has not passed out. She denies heart palpitations or abnormal heart beats. Overall patient seems to be a mostly reliable historian; however, she does make a few comments about the tele machine beeping as her cellphone/long distance calling. Labs were significant for no leukocytosis, Hgb 11.9, plts 82, PT/INR 13.7/1.3, potassium 5.8, Cr 1.91, ammonia 272, trop 9.7, and TSH 7.633. CTAP showed possibility of colitis in ascending colon, possible enteritis of small bowel, and possible osteomyelitis of T8-T9. Head CT showed no acute abnormality w/ chronic small vessel ischemia and cerebral volume loss. Also of note was a left nasal bone fracture. CXR showed cardiomegaly without acute process. In the ER she received 500 mL NS bolus x1, 250 mL NS bolus x1, zofran 4 mg IV, famotidine 20 mg IV, and lactulose 30 mg PO. Allergies Allergy/AdvReac Type Severity Reaction Status Date / Time No Known Allergies Allergy Verified 12/28/22 21:15 Home Medications Medication Instructions Recorded Confirmed Type cholecalciferol (vitamin D3) 50 2,000 unit PO QAM 07/01/18 12/28/22 History mcg (2,000 unit) capsule (Vitamin D3) multivitamin 1 tab PO QAM 10/14/19 12/28/22 History vitamin E 268 mg (400 unit) capsule 400 unit PO QAM 08/14/20 12/28/22 History coenzyme Q10 200 mg capsule 200 mg PO DAILY 11/01/21 12/28/22 History acetaminophen 325 mg tablet 650 mg PO Q4H PRN fever or pain 03/23/22 12/28/22 Rx #30 tabs nystatin 100,000 unit/gram topical 1 applic topical TID PRN rash #60 07/20/22 12/28/22 Rx powder grams atorvastatin 10 mg tablet 10 mg PO HS #90 tabs 09/08/22 12/28/22 Rx food supplemt, lactose-reduced See Rx Instructions PO .COMPLEX 09/08/22 12/28/22 History magnesium chloride 64 mg 128 mg PO TID #540 tabs 09/08/22 12/28/22 Rx (magnesium chloride) tablet,delayed release propranolol 10 mg tablet 10 mg PO TID 90 days #270 tabs 09/08/22 12/28/22 Rx levothyroxine 75 mcg tablet 75 mcg PO DAILY #90 tabs 11/18/22 12/28/22 Rx furosemide 40 mg tablet 40 mg PO QAM 11/21/22 12/28/22 History witch rodolfo 50 % topical pads 1 pad topical BID PRN Hemorrhoids 11/21/22 12/28/22 History (Hemorrhoidal (witch rodolfo)) famotidine 20 mg tablet (Pepcid) 20 mg PO BID 6 weeks #84 tabs 11/27/22 12/28/22 Rx lactulose 10 gram oral packet 30 g PO BID #540 ea 05/09/23 06/07/23 Rx spironolactone 25 mg tablet 25 mg PO DAILY #90 tabs 12/06/22 12/28/22 Rx furosemide 40 mg tablet 20 mg PO QPM 12/28/22 12/28/22 History Past Med/Surg History Medical History Acute hyperkalemia Acute on chronic diastolic heart failure Anemia Chronic deep vein thrombosis (DVT) Cough Diverticular hemorrhage resolved DVT (deep venous thrombosis) Elevated troponin Esophageal varices determined by endoscopy Fever GERD (gastroesophageal reflux disease) GI bleed none at present Hepatic encephalopathy Lactate blood increase Migraine Monoclonal gammopathy Osteoarthritis Presence of IVC filter Pulmonary embolism 2019 > no known cause > Filter to right groin Rhinovirus Thrombocytopenia Vertigo Volume overload Vomiting and diarrhea Weakness Wheezing Surgical History History of bilateral breast reduction surgery History of bilateral cataract extraction History of carpal tunnel release of both wrists History of section x3 History of colonoscopy History of dilatation and curettage History of esophagogastroduodenoscopy (EGD) History of laparoscopic cholecystectomy History of lumbar spinal fusion hardware in place History of tonsillectomy History of tooth extraction all teeth History of total left knee replacement (TKR) History of total right knee replacement (TKR) Family History Mother Family history of diabetes mellitus Brother Family history of diabetes mellitus 3 brothers Colorectal cancer Myocardial infarction x 2 Father Myocardial infarction Denies family history of Ovarian cancer Prostate cancer Breast cancer Social History (Updated 12/28/22 @ 18:33 by Navjot Ritchie MD) Smoking Status: Former smoker Tobacco Type: Cigarettes Age Started Using Tobacco: 15; Age Quit Using Tobacco: 21; Cigarettes Per Day: stopped 55 years ago; Second Hand Exposure: No; Do You Dip or Chew Tobacco: No; Hx Alcohol Use: No Hx Substance Use: No Preferred Language: [place] Communication Ability: Effective Visual Impairment: Limited Hearing Ability: Normal 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 Beliefs That Will Affect Care: None marital status: / Current Living Situation: Family Current Living Situation Comment: SON AT HOME current occupational status: retired How many Children do You have: 3 Other Information That Helps Us Care for You: No Feels Safe at Home: Yes Safety Concerns: Feels Safe At This Time Childhood Exposure to Second-Hand Smoke: Yes Diet: regular caffeine: Yes (tea) during the past year weight has: remained stable Dental Care, Regularly: No Physical Activity Frequency: Does not Exercise Seatbelt Use: always Sunscreen Use: No Do you think of yourself as: straight/heterosexual Gender Identity: Female Assistive Devices: Walker Review of Systems Review of Systems: As per HPI Physical Exam Constitutional: NAD, vitals WNL. Eyes: PERRLA. Conjunctivae normal. Respiratory: CTA bilaterally. Non labored breathing. No rhonchi, wheezing, or crackles. Cardiovascular: Bradycardic. Regular rhythm. No murmurs noted. Bilateral 2+ LE edema L>R. Left lower leg in bracing from recent fall. Gastrointestinal (Abdomen): Nontender, +BS. No masses noted. Skin: No rashes or skin lesions noted. Neurologic: Alert and oriented x4. Sensation grossly intact. No FND appreciated. Psychiatric: Speech of normal pace and mostly normal content. Intermittently confused. Mood and affect congruent. Results & Data Results & Data Vital Signs (Past 12 Hours) Vital Signs Pulse Pulse Resp BP BP Pulse Ox O2 Del Method 12/28/22 20:31 59 L 16 166/100 H 97 Room Air 12/28/22 20:31 57 L 12 149/105 H 94 Room Air 12/28/22 20:10 55 L 12 92 12/28/22 20:04 57 L 16 86 L 12/28/22 20:04 97/76 L 12/28/22 20:03 57 L 12 99 12/28/22 19:40 55 L 13 12/28/22 19:30 54 L 14 99 12/28/22 19:27 55 L 23 12/28/22 19:10 58 L 15 99 12/28/22 19:00 56 L 16 158/84 H 99 12/28/22 18:37 55 L 161/109 H 98 12/28/22 18:35 57 L 15 12/28/22 19:16 97 Room Air 12/28/22 18:38 61 12/28/22 18:34 65 22 161/109 H 98 Supervising Physician Co-Signing Physician Notes Attending addendum: I have physically seen this patient, have supervised the medical residents activities, and agree with the H&P unless as otherwise noted. Assessment and Plan: Hyperammonemia/alcoholic cirrhosis/altered mentation/intractable nausea vomiting/history of ascites- Patient is taking reduced amount of lactulose over the past several days. Resume 3-4 times daily to maximize bowel movements, checking serial ammonia levels Hold furosemide, spironolactone and propranolol dosing for now Acute kidney injury/hyperkalemia- Potassium 5.8. Creatinine 1.91, with base 1.45-1.75 Given 1 amp of D50 followed by 10 units regular insulin IV IV fluids lactated Ringer's at 100 mils per hour Follow serial CBC with differential, chemistry profile and magnesium level GI- CT read as possible colitis, possible enteritis, known liver cirrhosis Patient has no GI symptoms at this point, follow clinically History of PE/chronic DVT/IVC filter- Not a candidate for anticoagulation prophylaxis due to GI bleed history, and unnecessary with placement of IVC filter Atrial fibrillation- Cardiology is determining in the outpatient setting after she gets a GI work-up, if patient could be placed on a partial anticoagulation dose to address the possibility of her infrequent atrial fibrillation causing a stroke Remaining orders and notations as noted Resident Activity Tracking Resident Involvement: Resident Care Provided Care Provided: Adult [facility]
[2022-12-28] MEDS ORDERED: CALCIUM GLUCONATE 1,000 MG/60 ML BAG IV STA (22:53)
[2022-12-28] MEDS ORDERED: DEXTROSE 50% 50 ML SYRINGE IV STA (22:53)
[2022-12-28] MEDS ORDERED: NovoLIN-R INSULIN PER UNIT CHARGE IV STA (22:53)
[2022-12-28] MEDS ORDERED: LACTATED RINGER'S 1,000 ML IV SCH (23:00)
[2022-12-28] MEDS ORDERED: ONDANSETRON 4 MG OD TAB PO PRN (23:07)
[2022-12-29 01:36] LABS: Appearance Urine Clear (Clear); Bacteria Urine Automated Negative (Negative); Bilirubin Urine Negative (Negative); Blood Urine Trace (Negative); Color Urine Yellow; Epithelial Cell Urine Auto >30 /lpf (0-5); Glucose Urine UA Negative (Negative); Ketones Urine Negative (Negative); Leukocyte Esterase Urine Negative (Negative); Nitrite Urine Negative (Negative); Protein Urine Trace (Negative); RBC Urine Automated 0-4 /hpf (0-4); Specific Gravity Urine 1.012 (1.000-1.030); Urobilinogen Urine Negative (Negative)
[2022-12-29] MEDS ORDERED: ACETAMINOPHEN 500 MG TAB PO ONE (05:55)
[2022-12-29] MEDS: LEVOTHYROXINE SODIUM 75 MCG TABLET PO SCH (06:16)
[2022-12-29 07:28] LABS: Hematocrit (blood only) 34.8 % (37.0-47.0); Hemoglobin 10.9 g/dl (12.0-16.0); Mean Corpuscular Hemoglobin 29.9 pg (25.0-34.0); Mean Corpuscular Hgb Conc 31.3 g/dL (32.0-36.0); Mean Corpuscular Volume 95.3 fL (80.0-100.0); Mean Platelet Volume 10.2 fL (9.4-12.4); Platelet Count 67 K/uL (130-400); RDW Coefficient of Variation 19.6 % (11.5-14.5); RDW Standard Deviation 68.9 fL (36.4-46.3); Red Blood Count 3.65 M/uL (4.20-5.40); White Blood Count 3.61 K/ul (4.8-10.8)
--- NOTE | 2022-12-29 07:46 | Hospitalist Progress Note ---
Date of Service December 29, 2022 Assessment & Plan (1) Nausea & vomiting: Plan: Pt is a 77 yo female with complex PMH of HFpEF w/ RV failure, chronic DVT w/ IVC filter, aortic stenosis, HTN, CKD, strep bacteremia w/ infective endocarditis, MGUS, cirrhosis, DM, HLD, ROSALES on CPAP, and chronic back pain presenting to the hospital due to nausea and dizziness that began after a recent fall (12/22)and vomiting that began day before admission. Nausea/vomiting - viral enteritis vs. hyperammonemia vs. recent head injury - zofran 4 mg PRN, pantoprazole 40 mg daily - CT head neg for acute findings - CTAP does note possible colitis/enteritis/ostemyelitis of spine; however, pt afebrile, no abdominal complaints, no back pain, no leukocytosis - at this time greatly improved, will see how she tolerates dinner -ongoing multiple BM likely due to resuming lactulose in hospital EMY on CKD - baseline appears to be ~1.4-1.6 - Cr 1.91 upon admission - s/p 750 mL NS in ER - cautious with hydration in the setting of her severe heart failure; hydrate with LR at 60mL/hr x1 bag Hyperkalemia - 5.8 upon admission; no acute EKG changes, asymptomatic - ordered 1g Ca gluconate, insulin w/ D50 - hold spironolactone and lisinopril - recheck 4.6 Hyperammonemia in the setting of cirrhosis -on admission ammonia 272 - in the setting of worsening cirrhosis vs. missed doses of lactulose over the past few days - continue lactulose 30 g TID w/ goal of 2-3 BM per day - recheck ammonia 40 HFpEF, cor pulmonale, aortic stenosis - follows w/ outpatient with heart failure clinic, cardiology - most recent echo 11/22 showed EF 50-55% Afib - due to hx of serious GI bleeds, anticoagulation has been deferred; per pt, she was tried again on anticoagulation in the fall and she rebled - pt currently in sinus rhythm DM - no outpatient regimen; metformin recently d/c dt adequate control - A1c 6.0 Hypercholesterolemia - continue home atorvastatin Hypothyroidism - TSH 7.633 - continue home levothyroxine while hospitalized - consider rechecking TSH outpatient Fluids: LR at 60 mL/hr Diet: HH, DM, low sodium, low potassium DVT ppx: contraindicated w/ hx of GI bleed and IVC filter in place Code: DNR/DNI Dispo: med/surg w/ tele (2) Cor pulmonale: (3) Chronic kidney disease, stage III (moderate): (4) PAF (paroxysmal atrial fibrillation): (5) 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 to alcohol: (6) EMY (acute kidney injury): (7) Aortic stenosis: (8) ROSALES (obstructive sleep apnea): (9) Diabetes mellitus with peripheral vascular disease: (10) Hypercholesterolemia: (11) Acute hyperkalemia: (12) Hyperammonemia: Admission and Anticipated Discharge Date Admission Date: December 28, 2022 Supervising Physician Co-Signing Physician Notes I personally examined the patient and verified all almanzar points of history and exam, discussed case, and agree with decision making with Dr Kong. Feeling betterno more nausea and vomiting. Still a good bit of diarrhea, feels a little bit woozy and lightheaded. Has not really eaten.. Vitals noted, in general she is awake and alert pleasant fatigued no distress. HEENT normoceph alic atraumatic mucous membranes moist. Breathing unlabored no accessory muscle use good effort. Skin with diffuse bruising. Intractable nausea vomiting diarrheafitting with viral enteritisnausea vomiting improved, diarrhea persists, still somewhat lightheadedcontinue IV fluids, advance diet. Hopefully home soon. Otherwise as above. Subjective Patient seen at bedside, calm comfortable cooperative. States her nausea vomiting diarrhea have improved greatly since admission. Still has some pain bruising from her fall last week. Still has some ongoing dizziness, didn't get breakfast or lunch. At home she had missed 2-3 doses of medications due to not feeling well. Patient lives with her son, son and grandson are POA. Patient is in charge of her own medication. Physical Exam Constitutional: + morbidly obese, cooperative and comfortable Eyes: PERRL, conjunctivae normal, anicteric sclerae ENMT: external ear and nose normal, oropharynx normal Respiratory: normal respiratory effort, lungs clear to auscultation Cardiovascular: Rate/Rhythm: regular rate and regular rhythm Extremities: + edema (b/l lower extremities +1 pitting) Gastrointestinal (Abdomen): Inspection/Auscultation: abdomen normal to inspection Percussion/Palpation: abdomen soft; abdomen nontender Skin: bruising noted on left side of face, left chest, left abdomen. Left leg in brace Results & Data Results & Data Vital Signs (Past 12 Hours) Vital Signs Temp Pulse Pulse Resp BP BP Pulse Ox 12/29/22 03:41 36.1 C L 60 18 117/70 98 12/29/22 00:59 62 12/29/22 01:07 12/29/22 01:07 36.4 C L 61 18 146/81 H 99 12/28/22 23:50 62 16 144/65 H 99 12/28/22 23:41 61 12/28/22 22:00 60 14 163/134 H 99 12/28/22 21:31 58 L 13 160/81 H 92 12/28/22 21:01 59 L 16 166/100 H 95 12/28/22 21:00 61 15 12/28/22 20:31 59 L 16 166/100 H 97 12/28/22 20:31 57 L 12 149/105 H 94 12/28/22 20:10 55 L 12 92 12/28/22 20:04 57 L 16 86 L 12/28/22 20:04 97/76 L 12/28/22 20:03 57 L 12 99 O2 Del Method 12/29/22 03:41 Room Air 12/29/22 00:59 12/29/22 01:07 Room Air 12/29/22 01:07 Room Air 12/28/22 23:50 Room Air 12/28/22 23:41 12/28/22 22:00 Room Air 12/28/22 21:31 12/28/22 21:01 12/28/22 21:00 12/28/22 20:31 Room Air 12/28/22 20:31 Room Air 12/28/22 20:10 12/28/22 20:04 12/28/22 20:04 12/28/22 20:03 Resident Activity Tracking Resident Involvement: Resident Care Provided Care Provided: Adult Hospital Medicine
[2022-12-29] MEDS: LACTULOSE SYRUP 30 GM/45 ML UDP PO SCH ×2 (07:57→12:28)
[2022-12-29] MEDS: MAGNESIUM CHLORIDE W/CALCIUM 64MG DELAYED REL TAB PO SCH ×3 (07:57→20:44)
[2022-12-29] MEDS: PANTOprazole 40 MG TAB PO SCH (07:57)
[2022-12-29] MEDS: PROPRANOLOL HCL 10 MG TAB PO SCH ×3 (07:58→20:44)
[2022-12-29 08:18] LABS: Estimated Average Glucose 126 mg/dl
[2022-12-29 08:39] LABS: Albumin Globulin Ratio 0.6 (0.9-2); Albumin Level 2.6 gm/dl (3.4-5.0); BUN Creatinine Ratio 37.7 (10-20); Bilirubin,Total 0.7 mg/dl (0.2-1.0); Calcium 8.6 mg/dl (8.6-10.3); Creatinine Clr Calc Pharmacy 30.6 ml/min; Est GFR (African American) 31.5 ml/min; Est GFR (Non-African American) 27.2 ml/min; Globulin 4.7 gm/dl (2.5-4.0); Potassium 4.6 mmol/L (3.5-5.1); Total Protein 7.3 gm/dl (6.0-8.3)
--- NOTE | 2022-12-29 17:12 | Billing Data ---
Date of Service December 29, 2022 Coding Level of Care Code 10516 SUB INP/OBS CARE
[2022-12-29] MEDS ORDERED: MoRPHine SULFATE 2 MG/ML CARP IV STA (19:32)
[2022-12-29] MEDS: oxyCODONE HCL IR 5 MG TAB (IMMEDIATE RELEASE) PO PRN (20:43)
[2022-12-29] MEDS: ACETAMINOPHEN 500 MG TAB PO PRN (20:43)
[2022-12-29] MEDS: ATORVASTATIN 10 MG TAB PO SCH (20:44)
[2022-12-30] MEDS: LACTULOSE SYRUP 30 GM/45 ML UDP PO SCH ×4 (03:19→20:29)
[2022-12-30] MEDS: LEVOTHYROXINE SODIUM 75 MCG TABLET PO SCH ×2 (03:45→06:06)
[2022-12-30] MEDS: oxyCODONE HCL IR 5 MG TAB (IMMEDIATE RELEASE) PO PRN (03:46)
[2022-12-30] MEDS: ACETAMINOPHEN 500 MG TAB PO PRN (03:46)
--- NOTE | 2022-12-30 05:30 | Billing Data ---
Date of Service December 30, 2022 Coding Level of Care Code 88762 INT INP/OBS CARE
[2022-12-30] MEDS: MAGNESIUM CHLORIDE W/CALCIUM 64MG DELAYED REL TAB PO SCH ×3 (08:28→20:27)
[2022-12-30] MEDS: PROPRANOLOL HCL 10 MG TAB PO SCH ×3 (08:28→20:27)
[2022-12-30] MEDS: PANTOprazole 40 MG TAB PO SCH (08:29)
[2022-12-30 09:23] LABS: Hematocrit (blood only) 35.7 % (37.0-47.0); Hemoglobin 10.9 g/dl (12.0-16.0); Mean Corpuscular Hemoglobin 30.2 pg (25.0-34.0); Mean Corpuscular Hgb Conc 30.5 g/dL (32.0-36.0); Mean Corpuscular Volume 98.9 fL (80.0-100.0); Mean Platelet Volume 10.3 fL (9.4-12.4); Platelet Count 82 K/uL (130-400); RDW Coefficient of Variation 19.9 % (11.5-14.5); Red Blood Count 3.61 M/uL (4.20-5.40); White Blood Count 3.55 K/ul (4.8-10.8)
[2022-12-30 09:37] LABS: BUN Creatinine Ratio 31.7 (10-20); Calcium 8.6 mg/dl (8.6-10.3); Creatinine Clr Calc Pharmacy 30.2 ml/min; Est GFR (African American) 29.3 ml/min; Est GFR (Non-African American) 25.3 ml/min; Potassium 4.8 mmol/L (3.5-5.1)
[2022-12-30] MEDS: DICLOFENAC SOD 1% GEL 100 GM TUBE EXT SCH ×3 (13:12→20:29)
--- NOTE | 2022-12-30 15:24 | Hospitalist Progress Note ---
Date of Service December 30, 2022 Assessment & Plan (1) Nausea & vomiting: Plan: Pt is a 77 yo female with complex PMH of HFpEF w/ RV failure, chronic DVT w/ IVC filter, aortic stenosis, HTN, CKD, strep bacteremia w/ infective endocarditis, MGUS, cirrhosis, DM, HLD, ROSALES on CPAP, and chronic back pain presenting to the hospital due to nausea and dizziness that began after a recent fall (12/22)and vomiting that began day before admission. Weakness -PT/OT consulted, recommend rehab Nausea/vomiting - viral enteritis vs. hyperammonemia vs. recent head injury - zofran 4 mg PRN, pantoprazole 40 mg daily - CT head neg for acute findings - CTAP does note possible colitis/enteritis/ostemyelitis of spine; however, pt afebrile, no abdominal complaints, no back pain, no leukocytosis - at this time greatly improved, will see how she tolerates dinner -ongoing multiple BM likely due to resuming lactulose in hospital EMY on CKD - baseline appears to be ~1.4-1.6 - Cr 1.91 upon admission - received IVF - cautious with hydration in the setting of her severe heart failure - today 1.86 Hyperkalemia - 5.8 upon admission; no acute EKG changes, asymptomatic - ordered 1g Ca gluconate, insulin w/ D50 - hold spironolactone and lisinopril - recheck 4.6 Hyperammonemia in the setting of cirrhosis -on admission ammonia 272 - in the setting of worsening cirrhosis vs. missed doses of lactulose over the past few days - continue lactulose 30 g TID w/ goal of 2-3 BM per day - recheck ammonia 40 HFpEF, cor pulmonale, aortic stenosis - follows w/ outpatient with heart failure clinic, cardiology - most recent echo 11/22 showed EF 50-55% Afib - due to hx of serious GI bleeds, anticoagulation has been deferred; per pt, she was tried again on anticoagulation in the fall and she rebled - pt currently in sinus rhythm DM - no outpatient regimen; metformin recently d/c dt adequate control - A1c 6.0 Hypercholesterolemia - continue home atorvastatin Hypothyroidism - TSH 7.633 - continue home levothyroxine while hospitalized - consider rechecking TSH outpatient Diet: HH, DM, low sodium, low potassium DVT ppx: contraindicated w/ hx of GI bleed and IVC filter in place Code: DNR/DNI Dispo: med/surg w/ tele (2) Cor pulmonale: (3) Chronic kidney disease, stage III (moderate): (4) PAF (paroxysmal atrial fibrillation): (5) 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 to alcohol: (6) EMY (acute kidney injury): (7) Aortic stenosis: (8) ROSALES (obstructive sleep apnea): (9) Diabetes mellitus with peripheral vascular disease: (10) Hypercholesterolemia: (11) Acute hyperkalemia: (12) Hyperammonemia: Admission and Anticipated Discharge Date Admission Date: December 28, 2022 Supervising Physician Co-Signing Physician Notes I personally examined the patient and verified all almanzar points of history and exam, discussed case, and agree with decision making with Dr Kong. diarrhea improved. eating better. Vitals noted, in general she is awake and alert pleasant fatigued no distress. HEENT normocephalic atraumatic mucous membranes moist. Breathing unlabored no accessory muscle use good effort. Skin with diffuse bruising. Intractable nausea vomiting diarrheafitting with viral enteritisnausea vomiting improved, diarrhea improved. tolerating diet. weak - but doesn't want to go to rehab unless she has to. will see how she progresses over the next day or so since she's just recovering from the enteritis -- if she shows progress then with hydration/feeling better she might get strong enough to go home; if she shows no progress over the next 1-2 days then she might be more amenable to rehab. Subjective Patient seen at bedside, calm comfortable cooperative. States she was more woozy overnight, saw worms in her food, is better this morning. States she tolerates food well, no nausea. Still having frequent bowel movements. Patient is hesitant returning home, states she is weak and wants to be stronger. When asked about rehab, patient states she just needs to be allowed to walk more and get stronger. She is worried about being sent home and coming right back to the hospital. Physical Exam Constitutional: + morbidly obese, cooperative and comfortable Eyes: PERRL, conjunctivae normal, anicteric sclerae ENMT: external ear and nose normal, oropharynx normal Respiratory: normal respiratory effort, lungs clear to auscultation Cardiovascular: Rate/Rhythm: regular rate and regular rhythm Extremities: + edema (b/l lower extremities +1 pitting) Gastrointestinal (Abdomen): Inspection/Auscultation: abdomen normal to inspection Percussion/Palpation: abdomen soft; abdomen nontender Skin: bruising noted on left side of face, left chest, left abdomen. Left leg in brace Results & Data Results & Data Vital Signs (Past 12 Hours) Vital Signs Temp Pulse Pulse Resp BP Pulse Ox O2 Del Method 12/30/22 11:44 36.4 C L 53 L 16 129/78 97 Room Air 12/30/22 10:33 36.6 C 88 20 174/70 H 97 Room Air 12/30/22 08:00 50 L 12/30/22 07:43 36.8 C 56 L 16 152/77 H 96 Room Air 12/30/22 03:42 36.3 C L 67 16 164/91 H 98 Room Air Resident Activity Tracking Resident Involvement: Resident Care Provided Care Provided: Adult Hospital Medicine
--- NOTE | 2022-12-30 18:58 | Billing Data ---
Date of Service December 30, 2022 Coding Level of Care Code 19970 SUB INP/OBS CARE
[2022-12-30] MEDS: ATORVASTATIN 10 MG TAB PO SCH (20:28)
[2022-12-31] MEDS: LEVOTHYROXINE SODIUM 75 MCG TABLET PO SCH (05:34)
[2022-12-31 06:17] LABS: Hematocrit (blood only) 37.1 % (37.0-47.0); Hemoglobin 11.5 g/dl (12.0-16.0); Mean Corpuscular Hemoglobin 29.9 pg (25.0-34.0); Mean Corpuscular Volume 96.6 fL (80.0-100.0); Mean Platelet Volume 10.5 fL (9.4-12.4); Platelet Count 89 K/uL (130-400); RDW Coefficient of Variation 19.8 % (11.5-14.5); RDW Standard Deviation 70.2 fL (36.4-46.3); Red Blood Count 3.84 M/uL (4.20-5.40); White Blood Count 3.76 K/ul (4.8-10.8)
--- NOTE | 2022-12-31 06:20 | Electrocardiogram Report ---
Test Reason : Blood Pressure : / mmHG Vent. Rate : 057 BPM Atrial Rate : 057 BPM P-R Int : 172 ms QRS Dur : 148 ms QT Int : 486 ms P-R-T Axes : -10 -48 -01 degrees QTc Int : 473 ms Sinus bradycardia Right bundle branch block Left anterior fascicular block Bifascicular block Possible Lateral infarct (cited on or before 21-NOV-2022) Abnormal ECG When compared with ECG of 21-NOV-2022 14:31, No significant change Confirmed by Elder Rodriguez ([id number]) on 12/31/2022 6:20:21 AM Referred By: REFERRED SELF Confirmed By:Elder Rodriguez
[2022-12-31 06:37] LABS: BUN Creatinine Ratio 32.2 (10-20); Calcium 8.7 mg/dl (8.6-10.3); Creatinine Clr Calc Pharmacy 30.4 ml/min; Est GFR (African American) 31.8 ml/min; Est GFR (Non-African American) 27.4 ml/min; Potassium 4.6 mmol/L (3.5-5.1)
--- NOTE | 2022-12-31 06:57 | Hospitalist Progress Note ---
Date of Service December 31, 2022 Assessment & Plan (1) Nausea & vomiting: Plan: Pt is a 77 yo female with complex PMH of HFpEF w/ RV failure, chronic DVT w/ IVC filter, aortic stenosis, HTN, CKD, strep bacteremia w/ infective endocarditis, MGUS, cirrhosis, DM, HLD, ROSALES on CPAP, and chronic back pain presenting to the hospital due to nausea and dizziness that began after a recent fall (12/22) and vomiting that began day before admission. Generalized weakness -PT/OT consulted, recommend rehab -pt concerned with going to rehab- will continue to work on strength over weekend; if not much improved tomorrow, will discuss rehab again with pt Nausea/vomiting- improving - viral enteritis vs. hyperammonemia vs. recent head injury - zofran 4 mg PRN, pantoprazole 40 mg daily - CT head neg for acute findings - CTAP does note possible colitis/enteritis/ostemyelitis of spine; however, pt afebrile, no abdominal complaints, no back pain, no leukocytosis - ongoing multiple BM likely due to resuming lactulose in hospital EMY on CKD - baseline appears to be ~1.4-1.6 - Cr 1.91 upon admission - received IVF - cautious with hydration in the setting of her severe heart failure - Cr downtrended to 1.74 today Hyperkalemia- resolved - 5.8 upon admission; no acute EKG changes, asymptomatic - ordered 1g Ca gluconate, insulin w/ D50 - hold spironolactone and lisinopril - repeat WNL Hyperammonemia in the setting of cirrhosis - on admission ammonia 272 - in the setting of worsening cirrhosis vs. missed doses of lactulose over the past few days - continue lactulose 30 g TID w/ goal of 2-3 BM per day - recheck ammonia 40 HFpEF, cor pulmonale, aortic stenosis - follows w/ outpatient with heart failure clinic, cardiology - most recent echo 11/22 showed EF 50-55% Afib - due to hx of serious GI bleeds, anticoagulation has been deferred; per pt, she was tried again on anticoagulation in the fall and she rebled - pt currently in sinus rhythm DM - no outpatient regimen; metformin recently d/c dt adequate control - A1c 6.0 Hypercholesterolemia - continue home atorvastatin Hypothyroidism - TSH 7.633 - continue home levothyroxine while hospitalized - consider rechecking TSH outpatient Diet: HH, DM, low sodium, low potassium DVT ppx: contraindicated w/ hx of GI bleed and IVC filter in place Code: DNR/DNI Dispo: med/surg w/ tele; most likely needing rehab upon discharge (2) Cor pulmonale: (3) Chronic kidney disease, stage III (moderate): (4) PAF (paroxysmal atrial fibrillation): (5) 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 to alcohol: (6) EMY (acute kidney injury): (7) Aortic stenosis: (8) ROSALES (obstructive sleep apnea): (9) Diabetes mellitus with peripheral vascular disease: (10) Hypercholesterolemia: (11) Acute hyperkalemia: (12) Hyperammonemia: Admission and Anticipated Discharge Date Admission Date: December 28, 2022 Supervising Physician Co-Signing Physician Notes I personally examined the patient and verified all almanzar points of history and exam, discussed case, and agree with decision making with Dr Santiago diarrhea improved. eating well. walking a little better than yesterday. Vitals noted, in general she is awake and alert pleasant fatigued no distress. HEENT normocephalic atraumatic mucous membranes moist. Breathing unlabored no accessory muscle use good effort. Skin with diffuse bruising. Intractable nausea vomiting diarrheafitting with viral enteritisnausea vomiting improved, diarrhea improved. tolerating diet. weak - but doesn't want to go to rehab unless she has to. showing some progress -- if she shows ongoing progress then with hydration/feeling better she might get strong enough to go home; if she shows no progress over the next 1-2 days then she notes she will be more amenable to rehab. Subjective Pt feeling overall better this AM. She states her diarrhea has slowed down. Review of Systems Review of Systems: As per HPI Physical Exam Physical Exam: Constitutional: well appearing, no acute distress HEENT: normocephalic, no conjunctival injection CV: RRR, no murmur, L>R 2+ pedal edema Respiratory: CTA bilaterally. No rhonchi, wheezes, or crackles. No increased work of breathing GI: soft, nondistended, nontender, + bowel sounds MSK: no gross deformities noted Skin: warm, dry, no rashes Neuro: alert, oriented, no FND noted Psych: mood and affect congruent Results & Data Results & Data Vital Signs (Past 12 Hours) Vital Signs Temp Pulse Pulse Resp BP Pulse Ox O2 Del Method 12/31/22 02:53 36.6 C 58 L 18 144/75 H 98 Room Air 12/30/22 22:45 67 12/30/22 23:17 36.1 C L 58 L 18 167/73 H 99 Room Air 12/30/22 19:22 35.5 C L 54 L 18 142/79 H 99 Room Air Resident Activity Tracking Resident Involvement: Resident Care Provided Care Provided: Adult Hospital Medicine
[2022-12-31] MEDS: DICLOFENAC SOD 1% GEL 100 GM TUBE EXT SCH ×4 (08:09→20:04)
[2022-12-31] MEDS: LACTULOSE SYRUP 30 GM/45 ML UDP PO SCH ×3 (08:09→20:04)
[2022-12-31] MEDS: PROPRANOLOL HCL 10 MG TAB PO SCH ×3 (08:10→20:05)
[2022-12-31] MEDS: MAGNESIUM CHLORIDE W/CALCIUM 64MG DELAYED REL TAB PO SCH ×3 (08:10→20:04)
[2022-12-31] MEDS: PANTOprazole 40 MG TAB PO SCH (08:11)
--- NOTE | 2022-12-31 17:50 | Billing Data ---
Date of Service December 31, 2022 Coding Level of Care Code 68372 SUB INP/OBS CARE
[2022-12-31] MEDS: ATORVASTATIN 10 MG TAB PO SCH (20:03)
[2023-01-01] MEDS: LEVOTHYROXINE SODIUM 75 MCG TABLET PO SCH (05:35)
[2023-01-01 06:22] LABS: Hematocrit (blood only) 36.1 % (37.0-47.0); Hemoglobin 10.8 g/dl (12.0-16.0); Mean Corpuscular Hemoglobin 30.1 pg (25.0-34.0); Mean Corpuscular Hgb Conc 29.9 g/dL (32.0-36.0); Mean Corpuscular Volume 100.6 fL (80.0-100.0); Mean Platelet Volume 10.5 fL (9.4-12.4); Platelet Count 62 K/uL (130-400); RDW Coefficient of Variation 19.7 % (11.5-14.5); RDW Standard Deviation 73.2 fL (36.4-46.3); Red Blood Count 3.59 M/uL (4.20-5.40); White Blood Count 3.04 K/ul (4.8-10.8)
[2023-01-01 06:25] LABS: BUN Creatinine Ratio 33.3 (10-20); Calcium 8.4 mg/dl (8.6-10.3); Creatinine Clr Calc Pharmacy 33.2 ml/min; Est GFR (African American) 35.4 ml/min; Est GFR (Non-African American) 30.6 ml/min; Potassium 4.5 mmol/L (3.5-5.1)
--- NOTE | 2023-01-01 07:23 | Hospitalist Progress Note ---
Date of Service January 01, 2023 Assessment & Plan (1) Nausea & vomiting: Plan: Pt is a 77 yo female with complex PMH of HFpEF w/ RV failure, chronic DVT w/ IVC filter, aortic stenosis, HTN, CKD, strep bacteremia w/ infective endocarditis, MGUS, cirrhosis, DM, HLD, ROSALES on CPAP, and chronic back pain presenting to the hospital due to nausea and dizziness that began after a recent fall (12/22) and vomiting that began the day before admission. Generalized weakness -PT/OT consulted, recommend rehab -pt concerned with going to rehab- will continue to work on strength; PT will re-evaluate tomorrow- if no significant improvement, will plan for rehab Nausea/vomiting- improved - viral enteritis vs. hyperammonemia vs. recent head injury- enteritis seems most probable - zofran 4 mg PRN, pantoprazole 40 mg daily - CT head neg for acute findings - CTAP does note possible colitis/enteritis/osteomyelitis of spine; however, pt afebrile, no abdominal complaints, no back pain, no leukocytosis - ongoing multiple BM likely due to resuming lactulose in hospital EMY on CKD- resolved - baseline appears to be ~1.4-1.6 - Cr 1.91 upon admission; s/p IVF - cautious with hydration in the setting of her severe heart failure - Cr continues to downtrend- now at baseline Hyperkalemia- resolved - 5.8 upon admission; no acute EKG changes, asymptomatic - s/p 1g Ca gluconate, insulin w/ D50 - continue to hold spironolactone and lisinopril - repeat WNL Hyperammonemia in the setting of cirrhosis - on admission ammonia 272 - in the setting of worsening cirrhosis vs. missed doses of lactulose over the past few days - continue lactulose 30 g TID w/ goal of 2-3 BM per day - recheck ammonia 40 HFpEF, cor pulmonale, aortic stenosis - follows w/ outpatient with heart failure clinic, cardiology - most recent echo 11/22 showed EF 50-55% Afib - due to hx of serious GI bleeds, anticoagulation has been deferred; per pt, she was tried again on anticoagulation in the fall and she rebled - pt currently in sinus rhythm DM - no outpatient regimen; metformin recently d/c dt adequate control - A1c 6.0 Hypercholesterolemia - continue home atorvastatin Hypothyroidism - TSH 7.633 - continue home levothyroxine while hospitalized - consider rechecking TSH outpatient Diet: HH, DM, low sodium, low potassium DVT ppx: contraindicated w/ hx of GI bleed and IVC filter in place Code: DNR/DNI Dispo: med/surg w/ tele; PT will reassess tomorrow and if pt's strength not significantly improved, will plan for rehab (2) Cor pulmonale: (3) Chronic kidney disease, stage III (moderate): (4) PAF (paroxysmal atrial fibrillation): (5) 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 to alcohol: (6) EMY (acute kidney injury): (7) Aortic stenosis: (8) ROSALES (obstructive sleep apnea): (9) Diabetes mellitus with peripheral vascular disease: (10) Hypercholesterolemia: (11) Acute hyperkalemia: (12) Hyperammonemia: Admission and Anticipated Discharge Date Admission Date: December 28, 2022 Supervising Physician Co-Signing Physician Notes I personally examined the patient and verified all almanzar points of history and exam, discussed case, and agree with decision making with Dr Santiago Sleeping in the chair when I go to see her. No new issues. Basically waiting on PT assessment tomorrow to gauge if her progress has been enough for her to be safe to go home versus slow enough that we really do need to convince her to go to inpatient rehab. Vitals noted, resting comfortably no distress. HEENT normo cephalic atraumatic mucous membranes moist. Breathing unlabored no accessory muscle use good effort. Skin with diffuse bruising. Intractable nausea vomiting diarrheafitting with viral enteritisnausea vomiting improved, diarrhea improved. tolerating diet. weak - but doesn't want to go to rehab unless she has to. showing some progress -- if she shows ongoing progress then with hydration/feeling better she might get strong enough to go home; if she shows no progress by the time of her PT assessment tomorrow, she is expressed to me that she would be more amenable to going to rehab, although it sounds like discussion with resident physician has continued to show her to be fairly reticent about the idea of going anywhere but home Subjective Pt doing well overall this morning. She has been walking to and from the bathroom with assistance. She feels slightly stronger but doesn't feel that she could go home. She is still having multiple BM but improved from presentation. Review of Systems Review of Systems: As per HPI Physical Exam Physical Exam: Constitutional: well appearing, no acute distress HEENT: normocephalic, no conjunctival injection CV: RRR, no murmur, 2+ L>R LE edema Respiratory: CTA bilaterally. No rhonchi, wheezes, or crackles. No increased work of breathing GI: soft, nondistended, nontender MSK: no gross deformities noted Skin: warm, dry, ecchymosis noted of left knee Neuro: alert, oriented, no FND noted Psych: mood and affect congruent Results & Data Results & Data Vital Signs (Past 12 Hours) Vital Signs Temp Pulse Pulse Resp BP Pulse Ox O2 Del Method 01/01/23 02:58 36.7 C 61 18 129/76 98 Room Air 12/31/22 23:19 54 L 12/31/22 23:00 36.4 C L 59 L 18 158/74 H 99 Room Air 12/31/22 19:38 36.4 C L 60 18 153/81 H 98 Room Air Resident Activity Tracking Resident Involvement: Resident Care Provided Care Provided: Adult Hospital Medicine
[2023-01-01] MEDS: MAGNESIUM CHLORIDE W/CALCIUM 64MG DELAYED REL TAB PO SCH ×3 (08:26→21:04)
[2023-01-01] MEDS: DICLOFENAC SOD 1% GEL 100 GM TUBE EXT SCH ×4 (08:26→21:04)
[2023-01-01] MEDS: PROPRANOLOL HCL 10 MG TAB PO SCH ×3 (08:26→21:05)
[2023-01-01] MEDS: PANTOprazole 40 MG TAB PO SCH (08:27)
[2023-01-01] MEDS: LACTULOSE SYRUP 30 GM/45 ML UDP PO SCH ×3 (08:27→21:05)
--- NOTE | 2023-01-01 17:37 | Billing Data ---
Date of Service January 01, 2023 Coding Level of Care Code 80114 SUB INP/OBS CARE
[2023-01-01] MEDS: ATORVASTATIN 10 MG TAB PO SCH (21:03)
[2023-01-02] MEDS: LEVOTHYROXINE SODIUM 75 MCG TABLET PO SCH (05:38)
--- NOTE | 2023-01-02 07:05 | Hospitalist Progress Note ---
Date of Service January 02, 2023 Assessment & Plan (1) Nausea & vomiting: (2) Cor pulmonale: (3) Chronic kidney disease, stage III (moderate): (4) PAF (paroxysmal atrial fibrillation): (5) 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 to alcohol: (6) EMY (acute kidney injury): (7) Aortic stenosis: (8) ROSALES (obstructive sleep apnea): (9) Diabetes mellitus with peripheral vascular disease: (10) Hypercholesterolemia: (11) Acute hyperkalemia: (12) Hyperammonemia: Plan Pt is a 77 yo female with complex PMH of HFpEF w/ RV failure, chronic DVT w/ IVC filter, aortic stenosis, HTN, CKD, strep bacteremia w/ infective endocarditis, MGUS, cirrhosis, DM, HLD, ROSALES on CPAP, and chronic back pain presenting to the hospital due to nausea and dizziness that began after a recent fall (12/22) and vomiting that began the day before admission. Generalized weakness - PT/OT consulted, PT initially stated rehab placement - PT reevaluated on 01/02, stating patient will be able to return home if niece is able to provide 24/7 care. Nausea/vomiting-resolved - viral enteritis vs. hyperammonemia vs. recent head injury- enteritis most likely etiology. - CT head negative on admission. Improved with Zofran and pantoprazole. - zofran 4 mg PRN, pantoprazole 40 mg daily - CTAP does note possible colitis/enteritis/osteomyelitis of spine; however unlikely given clinical picture. EMY on CKD- resolved - baseline appears to be ~1.4-1.6 - Cr 1.91 upon admission, improved with IV fluids, at baseline. Hyperkalemia- resolved - 5.8 upon admission; no acute EKG changes, asymptomatic - Improved with calcium gluconate, insulin with D50. Hyperammonemia in the setting of cirrhosis-resolved - Ammonia of 272 on admission, continue lactulose 30g 3 times daily - Ammonia WNL on 12/29. HFpEF, cor pulmonale, aortic stenosis - follows w/ outpatient with heart failure clinic, cardiology - most recent echo 11/22 showed EF 50-55% Afib - due to hx of serious GI bleeds, anticoagulation has been deferred; per pt, she was tried again on anticoagulation in the fall and she rebled - pt currently in sinus rhythm DM - no outpatient regimen; metformin recently d/c dt adequate control - A1c 6.0 Hypercholesterolemia - continue home atorvastatin Hypothyroidism - TSH 7.633 - continue home levothyroxine, follow-up with PCP as an outpatient. Diet: HH, DM, low sodium, low potassium DVT ppx: contraindicated w/ hx of GI bleed and IVC filter in place Code: DNR/DNI Dispo: med/surg w/ tele; plans for discharge to home health Admission and Anticipated Discharge Date Admission Date: December 28, 2022 Supervising Physician Co-Signing Physician Notes Attending attestation Pt seen and examined in concert with Dr. [place]. In agreement with the documented findings as noted in the resident documentation with any exceptions or additions as noted here. Resting in chair at bedside without acute complaint at present. Adamant in her desire to return home with care - niece also takes soda fountain operator care of another family member and patient feels that she is capable of shouldering that care at discharge and that her niece is agreeable to that. Patient also feels that she is able to live within the bounds of her rehabilitation safety, which was reviewed in detail. Deconditioning/generalized weakness - PT/OT consult - declines inpatient rehabilitation, home with home health and 24 hour care pending DME EMY on CKDIII - returning to the high bounds of her baseline. Would recheck tomorrow and consider d/c trend if returns to known range Else see resident documentation as noted. Subjective Patient seen bedside this morning. No issues or concerns at this time. Awaiting placement at this time. Review of Systems Review of Systems: All systems reviewed & are unremarkable except as noted in Subjective Physical Exam Physical Exam: Constitutional: well-appearing, no acute distress HEENT: NCAT, no conjunctival injection CV: regular rhythm, no murmur appreciated, extremities well-perfused, no LE edema Resp: CTABL, no wheezes/rales/rhonchi appreciated, no increased work of breathing GI: soft, nondistended, nontender, BS normoactive MSK: no gross deformities appreciated Skin: warm, dry, no rash appreciated Neuro: alert, oriented, no focal neurologic deficit appreciated Results & Data Results & Data Vital Signs (Past 12 Hours) Vital Signs Temp Pulse Pulse Resp BP Pulse Ox O2 Del Method 01/02/23 02:56 36.6 C 63 18 135/63 94 Room Air 01/01/23 23:46 57 L 01/01/23 23:25 36.3 C L 62 20 134/86 99 Room Air 01/01/23 22:48 Room Air 01/01/23 19:47 36.4 C L 60 18 137/84 98 Room Air Laboratory Results 01/02/23 06:51 01/02/23 06:51 Resident Activity Tracking Resident Involvement: Resident Care Provided Care Provided: Adult [facility]
[2023-01-02] MEDS: PROPRANOLOL HCL 10 MG TAB PO SCH ×3 (07:56→21:57)
[2023-01-02] MEDS: NYSTATIN POWDER 15GM BTL EXT PRN (07:56)
[2023-01-02] MEDS: LACTULOSE SYRUP 30 GM/45 ML UDP PO SCH ×3 (07:56→21:56)
[2023-01-02] MEDS: DICLOFENAC SOD 1% GEL 100 GM TUBE EXT SCH ×4 (07:56→21:57)
[2023-01-02] MEDS: PANTOprazole 40 MG TAB PO SCH (07:57)
[2023-01-02] MEDS: MAGNESIUM CHLORIDE W/CALCIUM 64MG DELAYED REL TAB PO SCH ×3 (07:57→21:58)
[2023-01-02 08:20] LABS: Hematocrit (blood only) 34.4 % (37.0-47.0); Hemoglobin 10.8 g/dl (12.0-16.0); Mean Corpuscular Hemoglobin 30.5 pg (25.0-34.0); Mean Corpuscular Hgb Conc 31.4 g/dL (32.0-36.0); Mean Corpuscular Volume 97.2 fL (80.0-100.0); Mean Platelet Volume 11.2 fL (9.4-12.4); Platelet Count 65 K/uL (130-400); RDW Coefficient of Variation 19.5 % (11.5-14.5); RDW Standard Deviation 69.8 fL (36.4-46.3); Red Blood Count 3.54 M/uL (4.20-5.40)
[2023-01-02 08:22] LABS: BUN Creatinine Ratio 30.1 (10-20); Calcium 8.4 mg/dl (8.6-10.3); Creatinine Clr Calc Pharmacy 31.5 ml/min; Est GFR (African American) 33.6 ml/min; Potassium 4.6 mmol/L (3.5-5.1)
[2023-01-02] MEDS: ATORVASTATIN 10 MG TAB PO SCH (21:57)
[2023-01-03] MEDS: ACETAMINOPHEN 500 MG TAB PO PRN (00:45)
[2023-01-03] MEDS: LEVOTHYROXINE SODIUM 75 MCG TABLET PO SCH (06:03)
--- NOTE | 2023-01-03 07:04 | Hospitalist Progress Note ---
Date of Service January 03, 2023 Assessment & Plan (1) Nausea & vomiting: (2) Cor pulmonale: (3) Chronic kidney disease, stage III (moderate): (4) PAF (paroxysmal atrial fibrillation): (5) 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 to alcohol: (6) EMY (acute kidney injury): (7) Aortic stenosis: (8) ROSALES (obstructive sleep apnea): (9) Diabetes mellitus with peripheral vascular disease: (10) Hypercholesterolemia: (11) Acute hyperkalemia: (12) Hyperammonemia: Plan Pt is a 77 yo female with complex PMH of HFpEF w/ RV failure, chronic DVT w/ IVC filter, aortic stenosis, HTN, CKD, strep bacteremia w/ infective endocarditis, MGUS, cirrhosis, DM, HLD, ROSALES on CPAP, and chronic back pain presenting to the hospital due to nausea and dizziness that began after a recent fall (12/22) and vomiting that began the day before admission. Generalized weakness - PT/OT consulted, PT initially stated rehab placement - PT reevaluated on 01/02, stating patient will be able to return home if niece is able to provide 24/7 care. Thrombocytopenia Chronic, at baseline Nausea/vomiting-resolved - viral enteritis vs. hyperammonemia vs. recent head injury- enteritis most likely etiology. - CT head negative on admission. Improved with Zofran and pantoprazole. - zofran 4 mg PRN, pantoprazole 40 mg daily - CTAP does note possible colitis/enteritis/osteomyelitis of spine; however unlikely given clinical picture. EMY on CKD- resolved - baseline appears to be ~1.4-1.6 - Cr 1.91 upon admission, improved with IV fluids, at baseline. Hyperkalemia- resolved - 5.8 upon admission; no acute EKG changes, asymptomatic - Improved with calcium gluconate, insulin with D50. Hyperammonemia in the setting of cirrhosis-resolved - Ammonia of 272 on admission, continue lactulose 30g 3 times daily - Ammonia WNL on 12/29. HFpEF, cor pulmonale, aortic stenosis - follows w/ outpatient with heart failure clinic, cardiology - most recent echo 11/22 showed EF 50-55% - Patient requires hospital bed at home due to congestive heart failure which requires her to be elevated at night. Afib - due to hx of serious GI bleeds, anticoagulation has been deferred; per pt, she was tried again on anticoagulation in the fall and she rebled - pt currently in sinus rhythm DM - no outpatient regimen; metformin recently d/c dt adequate control - A1c 6.0 Hypercholesterolemia - continue home atorvastatin Hypothyroidism - TSH 7.633 - continue home levothyroxine, follow-up with PCP as an outpatient. Diet: HH, DM, low sodium, low potassium DVT ppx: contraindicated w/ hx of GI bleed and IVC filter in place Code: DNR/DNI Dispo: med/surg w/ tele; plans for discharge to home health Admission and Anticipated Discharge Date Admission Date: December 28, 2022 Supervising Physician Co-Signing Physician Notes ATTESTATION I also saw the patient and confirmed almanzar portions of the history and exam. I agree with the impression and plan in the resident documentation, and as summarized below. Resting in chair at bedside without complaint. Looking forward to returning home, hopefully tomorrow. EXAM 135/72, 66, 18, 36.3, 90% room air Heart regular Respirations nonlabored DATA Labs Hemoglobin 10.6, WBC 8.77, platelet count 63 Sodium 137, potassium 4.8, BUN 47, creatinine 1.54 IMPRESSION & PLAN Deconditioning/generalized weakness PT/OT consult Denies inpatient dilatation Home with 13/02 care, home services, pending procurement of DME items EMY on CKD 3 Resolved, looks to be at her baseline Thrombocytopenia, chronic At baseline Additional per resident documentation Subjective Patient was seen bedside this morning. No issues or concerns at this time. Pending home placement at this time. Review of Systems Review of Systems: All systems reviewed & are unremarkable except as noted in Subjective Physical Exam Physical Exam: Constitutional: well-appearing, no acute distress HEENT: NCAT, no conjunctival injection CV: regular rhythm, no murmur appreciated, extremities well-perfused, no LE edema Resp: CTABL, no wheezes/rales/rhonchi appreciated, no increased work of roxann thing GI: soft, nondistended, nontender, BS normoactive MSK: no gross deformities appreciated Skin: warm, dry, no rash appreciated Neuro: alert, oriented, no focal neurologic deficit appreciated Results & Data Results & Data Vital Signs (Past 12 Hours) Vital Signs Temp Pulse Pulse Resp BP Pulse Ox O2 Del Method 01/03/23 00:00 62 01/03/23 04:00 36.5 C 60 18 146/82 H 98 Room Air 01/02/23 20:00 Room Air 01/02/23 23:35 36.5 C 61 18 138/76 98 Room Air Laboratory Results 01/03/23 06:58 01/03/23 06:58 Resident Activity Tracking Resident Involvement: Resident Care Provided Care Provided: Adult Hospital Medicine
[2023-01-03 08:07] LABS: Hematocrit (blood only) 32.6 % (37.0-47.0); Hemoglobin 10.6 g/dl (12.0-16.0); Mean Corpuscular Hemoglobin 30.4 pg (25.0-34.0); Mean Corpuscular Hgb Conc 32.5 g/dL (32.0-36.0); Mean Corpuscular Volume 93.4 fL (80.0-100.0); Mean Platelet Volume 10.2 fL (9.4-12.4); Platelet Count 63 K/uL (130-400); RDW Standard Deviation 65.2 fL (36.4-46.3); Red Blood Count 3.49 M/uL (4.20-5.40); White Blood Count 3.77 K/ul (4.8-10.8)
[2023-01-03] MEDS: DICLOFENAC SOD 1% GEL 100 GM TUBE EXT SCH ×4 (08:09→19:49)
[2023-01-03] MEDS: PROPRANOLOL HCL 10 MG TAB PO SCH ×3 (08:09→19:51)
[2023-01-03] MEDS: MAGNESIUM CHLORIDE W/CALCIUM 64MG DELAYED REL TAB PO SCH ×3 (08:09→19:51)
[2023-01-03] MEDS: PANTOprazole 40 MG TAB PO SCH (08:10)
[2023-01-03] MEDS: LACTULOSE SYRUP 30 GM/45 ML UDP PO SCH ×3 (08:10→19:50)
[2023-01-03] MEDS: NYSTATIN POWDER 15GM BTL EXT PRN (08:10)
[2023-01-03 08:16] LABS: BUN Creatinine Ratio 30.5 (10-20); Calcium 8.3 mg/dl (8.6-10.3); Creatinine Clr Calc Pharmacy 34.4 ml/min; Est GFR (African American) 36.8 ml/min; Est GFR (Non-African American) 31.8 ml/min; Potassium 4.8 mmol/L (3.5-5.1)
[2023-01-03] MEDS: ATORVASTATIN 10 MG TAB PO SCH (19:50)
[2023-01-04] MEDS: LEVOTHYROXINE SODIUM 75 MCG TABLET PO SCH (06:15)
--- NOTE | 2023-01-04 06:57 | Hospitalist Progress Note ---
Date of Service January 04, 2023 Assessment & Plan (1) Nausea & vomiting: (2) Cor pulmonale: (3) Chronic kidney disease, stage III (moderate): (4) PAF (paroxysmal atrial fibrillation): (5) 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 to alcohol: (6) EMY (acute kidney injury): (7) Aortic stenosis: (8) ROSALES (obstructive sleep apnea): (9) Diabetes mellitus with peripheral vascular disease: (10) Hypercholesterolemia: (11) Acute hyperkalemia: (12) Hyperammonemia: Plan Pt is a 77 yo female with complex PMH of HFpEF w/ RV failure, chronic DVT w/ IVC filter, aortic stenosis, HTN, CKD, strep bacteremia w/ infective endocarditis, MGUS, cirrhosis, DM, HLD, ROSALES on CPAP, and chronic back pain presenting to the hospital due to nausea and dizziness that began after a recent fall (12/22) and vomiting that began the day before admission. Generalized weakness - PT/OT consulted, PT initially stated rehab placement - PT reevaluated on 01/02, stating patient will be able to return home if niece is able to provide 24/7 care. Thrombocytopenia Chronic, at baseline Nausea/vomiting-resolved - viral enteritis vs. hyperammonemia vs. recent head injury- enteritis most likely etiology. - CT head negative on admission. Improved with Zofran and pantoprazole. - zofran 4 mg PRN, pantoprazole 40 mg daily - CTAP does note possible colitis/enteritis/osteomyelitis of spine; however unlikely given clinical picture. EMY on CKD- resolved - baseline appears to be ~1.4-1.6 - Cr 1.91 upon admission, improved with IV fluids, at baseline. Hyperkalemia- resolved - 5.8 upon admission; no acute EKG changes, asymptomatic - Improved with calcium gluconate, insulin with D50. Hyperammonemia in the setting of cirrhosis-resolved - Ammonia of 272 on admission, continue lactulose 30g 3 times daily - Ammonia WNL on 12/29. HFpEF, cor pulmonale, aortic stenosis - follows w/ outpatient with heart failure clinic, cardiology - most recent echo 11/22 showed EF 50-55% - Patient requires hospital bed at home due to congestive heart failure which requires her to be elevated at night. Afib - due to hx of serious GI bleeds, anticoagulation has been deferred; per pt, she was tried again on anticoagulation in the fall and she rebled - pt currently in sinus rhythm DM - no outpatient regimen; metformin recently d/c dt adequate control - A1c 6.0 Hypercholesterolemia - continue home atorvastatin Hypothyroidism - TSH 7.633 - continue home levothyroxine, follow-up with PCP as an outpatient. Diet: HH, DM, low sodium, low potassium DVT ppx: contraindicated w/ hx of GI bleed and IVC filter in place Code: DNR/DNI Dispo: med/surg w/ tele; plans for discharge to home health Admission and Anticipated Discharge Date Admission Date: December 28, 2022 Results & Data Results & Data Vital Signs (Past 12 Hours) Vital Signs Temp Pulse Pulse Resp BP BP Pulse Ox 01/04/23 02:20 36.6 C 62 18 136/72 97 01/04/23 00:00 62 01/03/23 23:18 36.5 C 77 18 134/76 97 01/03/23 20:00 01/03/23 19:00 36.6 C 60 18 146/80 H 97 O2 Del Method 01/04/23 02:20 Room Air 01/04/23 00:00 01/03/23 23:18 Room Air 01/03/23 20:00 Room Air 01/03/23 19:00 Room Air
[2023-01-04 07:12] LABS: Hematocrit (blood only) 34.7 % (37.0-47.0); Hemoglobin 10.9 g/dl (12.0-16.0); Mean Corpuscular Hgb Conc 31.4 g/dL (32.0-36.0); Mean Corpuscular Volume 95.6 fL (80.0-100.0); Mean Platelet Volume 10.3 fL (9.4-12.4); Platelet Count 66 K/uL (130-400); RDW Coefficient of Variation 19.1 % (11.5-14.5); RDW Standard Deviation 66.7 fL (36.4-46.3); Red Blood Count 3.63 M/uL (4.20-5.40); White Blood Count 3.38 K/ul (4.8-10.8)
[2023-01-04 07:33] LABS: BUN Creatinine Ratio 32.2 (10-20); Calcium 8.4 mg/dl (8.6-10.3); Creatinine Clr Calc Pharmacy 37.1 ml/min; Est GFR (African American) 40.3 ml/min; Est GFR (Non-African American) 34.7 ml/min; Potassium 4.5 mmol/L (3.5-5.1)
[2023-01-04] MEDS: PANTOprazole 40 MG TAB PO SCH (08:05)
[2023-01-04] MEDS: PROPRANOLOL HCL 10 MG TAB PO SCH (08:05)
[2023-01-04] MEDS: LACTULOSE SYRUP 30 GM/45 ML UDP PO SCH (08:07)
[2023-01-04] MEDS: MAGNESIUM CHLORIDE W/CALCIUM 64MG DELAYED REL TAB PO SCH (08:07)
[2023-01-04] MEDS: DICLOFENAC SOD 1% GEL 100 GM TUBE EXT SCH (08:07)
--- NOTE | 2023-01-04 10:53 | Discharge Summary ---
Date of Service January 04, 2023 Admission HPI Per Admitting Provider Pt is a 77 yo female with complex PMH of HFpEF w/ RV failure, chronic DVT w/ IVC filter, aortic stenosis, HTN, CKD, strep bacteremia w/ infective endocarditis, MGUS, cirrhosis, DM, HLD, ROSALES on CPAP, and chronic back pain presenting to the hospital due to nausea and dizziness that began after a recent fall and vomiting that began yesterday. Pt had a fall 12/22. She has been feeling dizzy/nausea since then. However, y esterday, she began vomiting. She denies hematochezia. She also endorses generalized weakness and decreased appetite. She notes she has only taken 1 dose of lactulose the past two days (instead of her usual 3 doses) because she has been feeling ill. Pt endorses changes in her vision which she describes as feeling "whoozy" where she has spots in her vision. She has not passed out. She denies heart palpitations or abnormal heart beats. Overall patient seems to be a mostly reliable historian; however, she does make a few comments about the [employer] machine beeping as her cellphone/long distance calling. Labs were significant for no leukocytosis, Hgb 11.9, plts 82, PT/INR 13.7/1.3, potassium 5.8, Cr 1.91, ammonia 272, trop 9.7, and TSH 7.633. CTAP showed possibility of colitis in ascending colon, possible enteritis of small bowel, and possible osteomyelitis of T8-T9. Head CT showed no acute abnormality w/ chronic small vessel ischemia and cerebral volume loss. Also of note was a left nasal bone fracture. CXR showed cardiomegaly without acute process. In the ER she received 500 mL NS bolus x1, 250 mL NS bolus x1, zofran 4 mg IV, famotidine 20 mg IV, and lactulose 30 mg PO. Admission Exam Per Admitting Provider Constitutional: NAD, vitals WNL. Eyes: PERRLA. Conjunctivae normal. Respiratory: CTA bilaterally. Non labored breathing. No rhonchi, wheezing, or crackles. Cardiovascular: Bradycardic. Regular rhythm. No murmurs noted. Bilateral 2+ LE edema L>R. Left lower leg in bracing from recent fall. Gastrointestinal (Abdomen): Nontender, +BS. No masses noted. Skin: No rashes or skin lesions noted. Neurologic: Alert and oriented x4. Sensation grossly intact. No FND appreciated. Psychiatric: Speech of normal pace and mostly normal content. Intermittently confused. Mood and affect congruent. Principal Diagnosis Gastritis Discharge Exam Constitutional: well-appearing, no acute distress HEENT: NCAT, no conjunctival injection CV: regular rhythm, no murmur appreciated, extremities well-perfused, no LE edema Resp: CTABL, no wheezes/rales/rhonchi appreciated, no increased work of breathing GI: soft, nondistended, nontender, BS normoactive MSK: no gross deformities appreciated Skin: warm, dry, no rash appreciated Neuro: alert, oriented, no focal neurologic deficit appreciated Discharge Data Allergies Allergy/AdvReac Type Severity Reaction Status Date / Time No Known Allergies Allergy Verified 12/28/22 21:15 Consultations 12/28/22 20:41 ED Decision to Admit Stat Ordered Studies 12/28/22 18:44 CT abd pelvis wo con Stat CT head/brain wo con Stat Abdomen/Pelvis CT 12/28/22 18:44 Exam(s): CT ABDOMEN + PELVIS Without Contrast EXAM: CT Abdomen and Pelvis Without Intravenous Contrast CLINICAL HISTORY: Reason for exam: vomiting/diarrhea; h/o cirrhosis, fall 1 week ago. TECHNIQUE: Axial computed tomography images of the abdomen and pelvis without intravenous contrast. CTDI is 28.14 mGy and DLP is 1380.75 mGy-cm. Automated exposure control was utilized for the study. A dose lowering technique was utilized adhering to the principles of ALARA. COMPARISON: CT abdomen/pelvis on 08/16/2022 FINDINGS: Lung bases: Lower lung atelectasis. Heart: Cardiomegaly. Small pericardial effusion. ABDOMEN: Liver: Cirrhotic liver. Gallbladder and bile ducts: Prior cholecystectomy. Probable mild postcholecystectomy ductal ectasia. Pancreas: Unremarkable. No ductal dilation. Spleen: Unremarkable. No splenomegaly. Adrenals: Unremarkable. No mass. Kidneys and ureters: Nonspecific bilateral perinephric fat stranding. No hydronephrosis or stone. Stomach and bowel: Mild prominence of the ng of the ascending colon may be secondary to underdistention. Colitis is not excluded. Fluid and gas-filled small bowel loops could represent enteritis in the appropriate clinical setting. Evaluation of the stomach is limited by underdistention. Diverticulosis without evidence of diverticulitis. PELVIS: Appendix: Appendix is not definitely visualized on this exam. Bladder: Unremarkable. No stones. Reproductive: Unremarkable as visualized. ABDOMEN and PELVIS: Intraperitoneal space: Small amount of presacral fluid. Small amount of ascites. No free air. Bones/joints: Increased irregularity of endplates at T8-9 may be secondary to degenerative change. Discitis/osteomyelitis cannot be excluded. Degenerative changes of the spine. Postsurgical changes from L4-S1. Grade 1 anterolisthesis of L5 on S1. Stable chronic compression deformity of the S1 vertebral body. No dislocation. Soft tissues: Body wall edema. Component of cellulitis would be difficult to exclude. Vasculature: Phleboliths in the pelvis. Atherosclerotic changes of the vasculature. No aortic aneurysm. IVC filter in place. Lymph nodes: Similar prominent. Nonspecific adis hepatis lymph nodes. IMPRESSION: 1. Mild prominence of the ng of the ascending colon may be secondary to underdistention. Colitis is not excluded. 2. Fluid and gas-filled small bowel loops could represent enteritis in the appropriate clinical setting. 3. Cirrhotic liver. 4. Body wall edema. Component of cellulitis would be difficult to exclude. 5. Small amount of presacral fluid. Small amount of ascites. 6. Increased irregularity of endplates at T8-9 may be secondary to degenerative change. Discitis/osteomyelitis cannot be excluded. Electronically signed by: Mark Kent M.D. 12/28/22 20:[address] 12/28/22 18:44 Exam(s): CT HEAD Without Contrast EXAM: CT Head Without Intravenous Contrast CLINICAL HISTORY: Reason for exam: lethargy, fall. TECHNIQUE: Axial computed tomography images of the head/brain without intravenous contrast. CTDI is 38.74 mGy and DLP is 624.41 mGy-cm. Automated exposure control was utilized for the study. A dose lowering technique was utilized adhering to the principles of ALARA. COMPARISON: CT head on 02/28/2022. FINDINGS: Brain: No acute infarct or hemorrhage identified. No extra-axial fluid collection. No mass effect or midline shift. Scattered areas of hypoattenuation in the supratentorial white matter likely represent chronic small vessel ischemic changes. Ventricles and sulci: Prominence of the ventricles and sulci is likely secondary to cerebral volume loss. Bones: Hyperostosis frontalis interna. Age-indeterminate nondisplaced fracture of the left nasal bone. Subcutaneous tissues: Normal. Sinuses: Normal. No air-fluid levels or mucosal thickening. Mastoid air cells: Normal. Orbits: Bilateral lens implants. Other: Atherosclerotic calcifications in the intracranial vasculature. IMPRESSION: 1. No acute intracranial abnormality. 2. Chronic small vessel ischemic changes and cerebral volume loss. 3. Age-indeterminate nondisplaced fracture of the left nasal bone. Electronically signed by: Mark Kent M.D. 12/28/22 20:25 PM Chest X-Ray 12/28/22 18:45 XR chest 1V portable HISTORY: 77 years-old Female weakness acute weakness COMPARISON: 12/22/2022 TECHNIQUE: AP view the chest FINDINGS: Cardiac silhouette is enlarged. Mild left basilar atelectasis. No pneumothorax, pleural effusion, or overt pulmonary edema. Cholecystectomy. Bones appear grossly intact. IMPRESSION: Cardiomegaly without acute process. ACT 112: Negative or not required by law. The above report was generated using voice recognition software. It may contain grammatical, syntax or spelling errors. Electronically signed by: Victor M Reyna M.D. 12/28/2022 6:56 PM Hospital Course (1) Nausea & vomiting: (2) Cor pulmonale: (3) Chronic kidney disease, stage III (moderate): (4) PAF (paroxysmal atrial fibrillation): (5) 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 to alcohol: (6) EMY (acute kidney injury): (7) Aortic stenosis: (8) ROSALES (obstructive sleep apnea): (9) Diabetes mellitus with peripheral vascular disease: (10) Hypercholesterolemia: (11) Acute hyperkalemia: (12) Hyperammonemia: Plan Pt is a 77 yo female with complex PMH of HFpEF w/ RV failure, chronic DVT w/ IVC filter, aortic stenosis, HTN, CKD, strep bacteremia w/ infective endocarditis, MGUS, cirrhosis, DM, HLD, ROSALES on CPAP, and chronic back pain presenting to the hospital due to nausea and dizziness that began after a recent fall (12/22) and vomiting that began the day before admission. Generalized weakness - PT/OT consulted, PT initially stated rehab placement - PT reevaluated on 01/02, stating patient will be able to return home if niece is able to provide 24/7 care. Thrombocytopenia Chronic, at baseline Nausea/vomiting-resolved - viral enteritis vs. hyperammonemia vs. recent head injury- enteritis most likely etiology. - CT head negative on admission. Improved with Zofran and pantoprazole. - CTAP does note possible colitis/enteritis/osteomyelitis of spine; however unlikely given clinical picture. EMY on CKD- resolved - baseline appears to be ~1.4-1.6 - Cr 1.91 upon admission, improved with IV fluids, at baseline at time of discharge. Hyperkalemia- resolved - 5.8 upon admission; no acute EKG changes, asymptomatic - Improved with calcium gluconate, insulin with D50. Hyperammonemia in the setting of cirrhosis-resolved - Ammonia of 272 on admission, continue lactulose 30g 3 times daily - Ammonia WNL on 12/29. HFpEF, cor pulmonale, aortic stenosis - follows w/ outpatient with heart failure clinic, cardiology - most recent echo 11/22 showed EF 50-55% - Patient requires hospital bed at home due to congestive heart failure which requires her to be elevated at night. Afib - due to hx of serious GI bleeds, anticoagulation has been deferred; per pt, she was tried again on anticoagulation in the fall and she rebled - pt currently in sinus rhythm DM - no outpatient regimen; metformin recently d/c dt adequate control - A1c 6.0 Hypercholesterolemia - continue home atorvastatin Hypothyroidism - TSH 7.633 - continue home levothyroxine, follow-up with PCP as an outpatient. Total Time Total Time Spent Total Time Spent (In Minutes): 20 Discharge Plan Discharge Items Patient Disposition: Home - Self-Care Reason For Visit: N/V, DIZZINESS Discharge Diagnosis: Gastritis Activity: Resume your previous activity Non-emergency contact: Primary Care Provider Call non-emergency contact if: your symptoms worsen, your pain is concerning for you and you have a fever Follow-up/Referrals: Franko Monk DO [Primary Care Provider] - 01/10/23 12:00 pm (Follow up in 1 week. ) Diet: Carb Consistent or DM2 and Heart Healthy Addtl Attending Provider Instructions: You were admitted to the hospital for nausea, vomiting, and diarrhea. A discharge summary will be sent to your primary care physician to ensure continuity of care. Please bring this discharge summary with you to your next office appointment so that your provider can review it at that time. Follow-up appointments: * We have requested a follow-up appointment with your primary care physician within one week of discharge. Please call their office if you do not hear from them. * Keep all your follow-up appointments as already scheduled. If you cannot make an appointment, notify your provider. Medications: Your medication list has been reviewed and reconciled upon discharge to ensure accuracy and continuity of care. An updated list of all your medications is included with your hospital discharge paperwork. Please review this list closely, and make note of any changes. * We sent a new medication called nystatin to your pharmacy. Take Nystatin as needed three times a day for rash. * If you have any issues filling these prescriptions, please call [phone] and ask to leave a message for Dr. [place]. * Take your medications as instructed; do not skip a dose of your medicines. Make sure all of your doctors know every medicine you are taking (including [id number] medicines, vitamins, and supplements). Call your primary care provider before taking any new medicines (including over- the-counter medicines, vitamins, and supplements), because some of these may interact with your current medications, or may make your symptoms worse. Tell your primary care provider if you cannot afford your medications. CONTACT YOUR PRIMARY CARE PROVIDER if you experience any of the following: * Worsening of symptoms * Fever, chills, or fatigue * Difficulty following your treatment plan, or difficulty taking medications CALL 911 OR GO TO THE EMERGENCY DEPARTMENT if you experience any of the following: * Sudden, severe abdominal pain or nausea/vomiting * Severe chest pain, or chest pain that radiates (moves) to your jaw or arm * Sudden, severe shortness of breath or difficulty breathing Thank you for allowing us to participate in your care. Pending Studies at Discharge: No Stand-Alone Forms: My [facility] Medications and DC Order Prescriptions: Continued acetaminophen 325 mg tablet 650 mg PO Q4H PRN (Reason: fever or pain) Qty: 30 0RF levothyroxine 75 mcg tablet 75 mcg PO DAILY Qty: 90 3RF lactulose 10 gram packet 30 g PO BID Qty: 540 3RF coenzyme Q10 200 mg capsule 200 mg PO DAILY food supplemt, lactose-reduced Liquid See Rx Instructions PO .COMPLEX Rx Instructions: orally 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; atorvastatin 10 mg tablet 10 mg PO HS Qty: 90 3RF magnesium chloride 64 mg tablet,delayed release (DR/EC) 128 mg PO TID Qty: 540 3RF propranolol 10 mg tablet 10 mg PO TID 90 Days Qty: 270 3RF spironolactone 25 mg tablet 25 mg PO DAILY Qty: 90 3RF Hold Instructions: high K cholecalciferol (vitamin D3) [Vitamin D3] 2,000 unit Capsule 2,000 unit PO QAM multivitamin Tablet 1 tab PO QAM vitamin E 400 unit capsule 400 unit PO QAM furosemide 40 mg tablet 40 mg PO QAM Hemorrhoidal (witch rodolfo) 50 % pads, medicated 1 pad topical BID PRN (Reason: Hemorrhoids) famotidine [Pepcid] 20 mg tablet 20 mg PO BID 42 Days Qty: 84 0RF furosemide 40 mg tablet 20 mg PO QPM nystatin 100,000 unit/gram powder 1 applic topical TID PRN (Reason: rash) 30 Days Qty: 60 5RF Discharge Orders: Discharge Order (Routine); Ordered 01/04/23 Ordered By: Kenny Hodge/Other Patient Handouts: Managing Type 2 Diabetes, Special Foot Care for Diabetes Admission Data Admit Date/Time: 12/28/22 22:52 Attending Provider: Yusuf Granda Admit Provider: Racheal Santiago Primary Care Provider: Franko Monk Other Providers: Dru Becerra ; [facility] ; [facility] Other Interventions: Discharge Summary Assessment (RN) Last Done: 01/04/23 12:44 Supervising Physician Co-Signing Physician Notes ATTESTATION I also saw the patient and confirmed almanzar portions of the history and exam. I agree with the impression and plan in the resident documentation, and as summarized below. Patient without complaints today. She is looking forward to discharge. Hospital bed has will be delivered to her home today. She does have a ride home with family. EXAM Alert and oriented. No acute distress. Heart regular Respirations nonlabored DATA Labs Hemoglobin is stable 10.9, platelet count 66 BUN 46, creatinine 1.43 IMPRESSION & PLAN Deconditioning/generalized weakness Denies inpatient rehabilitation Home with 24/ care, home services, hospital bed to be delivered today EMY on CKD 3 Resolved, looks to be at her baseline Thrombocytopenia, chronic At baseline Additional per resident documentation
== END 2023-01-04 13:45 | disposition home or self-care (01) | DRG 392 ==
LOC: ED 18:29 → 2N 22:52 → SUATTDRO 22:52 → 2N 12-29 00:24
DX: Z79.890 Hormone replacement therapy; I35.0 Nonrheumatic aortic (valve) stenosis; I50.32 Chronic diastolic (congestive) heart failure; E11.59 Type 2 diabetes mellitus with other circulatory complications; G47.33 Obstructive sleep apnea (adult) (pediatric); D69.6 Thrombocytopenia, unspecified; I13.0 Hypertensive heart and chronic kidney disease with heart failure and stage 1 through stage 4 chronic kidney disease, or unspecified chronic kidney disease; N18.30 Chronic kidney disease, stage 3 unspecified; E78.00 Pure hypercholesterolemia, unspecified; K52.9 Noninfective gastroenteritis and colitis, unspecified; I27.81 Cor pulmonale (chronic); Z79.1 Long term (current) use of non-steroidal anti-inflammatories (NSAID); E87.5 Hyperkalemia; Z79.899 Other long term (current) drug therapy; K74.60 Unspecified cirrhosis of liver; E03.9 Hypothyroidism, unspecified; E72.20 Disorder of urea cycle metabolism, unspecified; N17.9 Acute kidney failure, unspecified; Z66 Do not resuscitate; I48.0 Paroxysmal atrial fibrillation

== ENCOUNTER 2023-02-14 04:13 | Inpatient (IN) ==
[2023-02-14] MEDS ORDERED: ONDANSETRON INJ 2 MG/ML 2 ML VIAL ONE (04:18)
--- NOTE | 2023-02-14 04:46 | Emergency Department Note ---
Impression & Plan Hyperammonemia, Generalized weakness, Nausea & vomiting, Hypomagnesemia ED Provider Note INFORMANT: Patient and family ED PROVIDER(S): Murali Nelson MD CHIEF COMPLAINT: Weakness PLAN: Disposition: Admitted Condition: Good Outpatient prescription management: none Referral: None MEDICAL DECISION MAKING: Patient presented with complaints of weakness. There is some intermittent slurred speech. Patient was generally weak but had a nonfocal neurologic examination. She underwent a work-up. Given her history a head CT was performed and this was negative for acute process. The patient's CBC and chemistry panel were unremarkable. ECG showed a sinus rhythm. Patient did have a low magnesium level. IV magnesium was administered. Because of the vomiting complaints I did order a CT scan of the abdomen and pelvis. Also ammonia level was added. Discussed further management in the hospital with the patient and family and they were in agreement. consultation was made with Dr. Dalton Yañez of the [facility] service. Patient was evaluated in the ER for further management. After internal medicine evaluation and initial admission started the patient's ammonia level did come back markedly elevated. This has been elevated intermittently in the past as well. The patient was given oral lactulose. CT imaging did not reveal any acute process in the abdomen and pelvis. I did message the hospitalist service, Dr. Hebert, the [facility] hospitalist and he is forwarding this information to Dr. Singh Discussed with commissary manager After review of the information above and other included data, I feel the patient requires admission. Triage Nursing notes reviewed and agree them. Vital Signs: reviewed and remarkable for hypertension Prior /Outside records reviewed: Prior visit record and admission reviewed. Differential diagnosis: CVA, TIA, hyperammonemia, intra-abdominal process, infection, hypoglycemia, electrolyte abnormalities, overdose, toxicologic, cardiac sources, intracerebral event, neurologic, trauma, as well as other pathologies. Diagnostics, as interpreted by me: ECG: Twelve-lead ECG reveals a sinus rhythm at 68 bpm. PVCs present. Right bundle branch block and left anterior fascicular block. No ST elevation. Cardiac Monitoring: Cardiac monitoring ordered by me: The patient was placed on continuous cardiac monitoring and observed. It revealed a normal sinus rhythm at 63 beats per minute without ectopy or evidence of dysrhythmia. Medical decision rules: none Imaging studies: Head CT: A noncontrast CT scan of the head was performed and was negative for tumor, fracture, intracranial hemorrhage, or other acute pathology. CT scan of the abdomen pelvis is negative for acute process. Chest x-ray. Findings: A chest x-ray was performed and revealed no acute disease. HPI: The patient is a 77 year old female who presents to the Emergency Room with complaints of weakness. This started about 3:00 this morning and is persisting. The patient also notes the following associated symptoms, nausea and vomiting. Patient also noted some mild dizziness and lightheadedness. Family thought her speech was somewhat slurred more than usual. Patient feels generally weak without unilateral weakness. Patient is on Eliquis. Last known well time without any symptoms was at 2100 hrs. last night. The patient has been given Zofran prehospital for relieving factors. Current pain is rated as 0/10. Family notes patient has been having intermittent vomiting in the morning but then has been able to eat and drink without difficulty throughout the week. They noted some waxing and waning of slurred speech. Pt denies LOC, headache, fevers, chills, diaphoresis, visual changes, neck pain, chest pain, breathing difficulties, abdominal pain, back pain, melena, hematochezia, urinary symptoms, numbness, lymphadenopathy, rash, or other complaints. PAST MEDICAL HISTORY: See Below, CKD, CHF, hypertension PAST SURGICAL HISTORY: See Below, SOCIAL HISTORY: See Below, lives with family HOME MEDICATIONS: See Below ALLERGIES: See Below VITALS: See Below PHYSICAL EXAMINATION: GENERAL: Awake, alert, tired-appearing, in no distress HENT: Normocephalic, atraumatic. Oropharynx unremarkable. EYES: Normal conjunctiva. Sclera non-icteric. NECK: Inspection normal. Non-tender. Supple. No nuchal rigidity. FROM. No masses. RESPIRATORY: Clear to auscultation. No wheezes. No rales. Normal respiratory effort. CARDIAC: Normal rate. Normal rhythm. No murmurs. No rubs. Extremities warm and well perfused. Pulses equal. No JVD. GI: Soft, non-distended. No tenderness to palpation. No rebound or guarding. No masses. RECTAL: Deferred. MUSCULOSKELETAL: Atraumatic. Chest examination reveals no tenderness. The back is symmetrical on inspection without obvious abnormality. There is no CVA tenderness to palpation. No joint edema. LOWER EXTREMITIES: Calves are equal size bilaterally and non-tender. No edema. No discoloration. NEURO: Relatively normal sensorium. Generally weak and no sensory or motor deficits noted. Mildly slurred speech SKIN: No rash or jaundice noted. Past Med/Surg History Medical History Acute hyperkalemia Acute on chronic diastolic heart failure EMY (acute kidney injury) Chronic deep vein thrombosis (DVT) Cough Diverticular hemorrhage resolved Dizziness DVT (deep venous thrombosis) Elevated troponin Encephalopathy acute Esophageal varices determined by endoscopy Fever GERD (gastroesophageal reflux disease) GI bleed none at present Hepatic encephalopathy Lactate blood increase Migraine Monoclonal gammopathy Nausea & vomiting Nausea vomiting and diarrhea Osteoarthritis Presence of IVC filter Pulmonary embolism 2019 > no known cause > Filter to right groin Rhinovirus Stage 3b chronic kidney disease Thrombocytopenia Vertigo Volume overload Vomiting and diarrhea Weakness Wheezing Surgical History History of bilateral breast reduction surgery History of bilateral cataract extraction History of carpal tunnel release of both wrists History of section x3 History of colonoscopy History of dilatation and curettage History of esophagogastroduodenoscopy (EGD) History of laparoscopic cholecystectomy History of lumbar spinal fusion hardware in place History of tonsillectomy History of tooth extraction all teeth History of total left knee replacement (TKR) History of total right knee replacement (TKR) Family History Mother Family history of diabetes mellitus Brother Family history of diabetes mellitus 3 brothers Colorectal cancer Myocardial infarction x 2 Father Myocardial infarction Denies family history of Ovarian cancer Prostate cancer Breast cancer Social History Smoking Status: Never smoker Tobacco Type: Cigarettes Age Started Using Tobacco: 15; Age Quit Using Tobacco: 21; Cigarettes Per Day: stopped 55 years ago; Second Hand Exposure: No; Do You Dip or Chew Tobacco: No; Hx Alcohol Use: No Hx Substance Use: No Preferred Language: Bangladeshi Communication Ability: Effective Visual Impairment: Limited Hearing Ability: Normal 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: No Beliefs That Will Affect Care: None marital status: / Current Living Situation: Family Current Living Situation Comment: SON AT HOME current occupational status: retired How many Children do You have: 3 Feels Safe at Home: Yes Childhood Exposure to Second-Hand Smoke: Yes Diet: regular caffeine: Yes (tea) during the past year weight has: remained stable Dental Care, Regularly: No Physical Activity Frequency: Does not Exercise Seatbelt Use: always Sunscreen Use: No Do you think of yourself as: straight/heterosexual Gender Identity: Female Assistive Devices: Walker Allergies Allergies Allergy/AdvReac Type Severity Reaction Status Date / Time No Known Allergies Allergy Verified 01/25/23 09:09 Home Meds Home Medications Medication Instructions Recorded Confirmed cholecalciferol (vitamin D3) 50 2,000 unit PO QAM 07/01/18 01/25/23 mcg (2,000 unit) capsule (Vitamin D3) multivitamin 1 tab PO QAM 10/14/19 01/25/23 vitamin E 268 mg (400 unit) capsule 400 unit PO QAM 08/14/20 01/25/23 coenzyme Q10 200 mg capsule 200 mg PO DAILY 11/01/21 01/25/23 furosemide 40 mg tablet 40 mg PO QAM 11/21/22 01/25/23 furosemide 40 mg tablet 20 mg PO QPM 12/28/22 01/25/23 Previous Rx's Medication Instructions Recorded atorvastatin 10 mg tablet 10 mg PO HS #90 tabs 09/08/22 magnesium chloride 64 mg 128 mg PO TID #540 tabs 09/08/22 (magnesium chloride) tablet,delayed release levothyroxine 75 mcg tablet 75 mcg PO DAILY #90 tabs 11/18/22 spironolactone 25 mg tablet 25 mg PO DAILY #90 tabs 12/06/22 nystatin 100,000 unit/gram topical 1 applic topical TID PRN rash 30 01/04/23 powder days #60 grams propranolol 10 mg tablet 10 mg PO TID 90 days #270 tabs 01/23/23 lactulose 10 gram/15 mL oral 30 g (45 mL) PO BID 90 days #8,100 01/30/23 solution mL pantoprazole 40 mg tablet,delayed 40 mg PO BID #180 tabs 02/07/23 release apixaban 2.5 mg tablet (Eliquis) 2.5 mg PO BID #60 tabs 02/13/23 Results & Data (ED) Vital Signs Vital Signs - 24 hr 02/14/23 04:28 02/14/23 04:34 02/14/23 05:01 Temperature 36.9 C Temperature Source Temporal Artery Scan Pulse Rate 64 66 66 Pulse Rate [Left Apical] Pulse Rate from SpO2 Sensor Pulse Rhythm Regular Pulse Rhythm [Left Apical] Pulse Strength Normal Pulse Strength [Left Apical] Respiratory Rate 20 17 Respiratory Effort / Characteristics Non-Labored Spontaneous Respiratory Depth Normal Respiratory Pattern Regular Blood Pressure 195/111 H 169/98 H Blood Pressure [Right Arm] Blood Pressure Mean 139 121 Blood Pressure Mean [Right Arm] Blood Pressure Position Lying Blood Pressure Position [Right Arm] Pulse Oximetry 94 93 Oxygen Delivery Method Room Air Room Air Sepsis Recent Fever Within 48 Hours No Sepsis New/Unexplained Change in Mental Status N/A Sepsis Action Taken by Nursing No Action Required 02/14/23 05:30 02/14/23 06:00 02/14/23 06:31 Temperature Temperature Source Pulse Rate 71 69 60 Pulse Rate [Left Apical] Pulse Rate from SpO2 Sensor 72 67 Pulse Rhythm Pulse Rhythm [Left Apical] Pulse Strength Pulse Strength [Left Apical] Respiratory Rate 17 20 20 Respiratory Effort / Characteristics Respiratory Depth Respiratory Pattern Blood Pressure 178/103 H 162/115 H 181/89 H Blood Pressure [Right Arm] Blood Pressure Mean 128 130 119 Blood Pressure Mean [Right Arm] Blood Pressure Position Blood Pressure Position [Right Arm] Pulse Oximetry 98 98 96 Oxygen Delivery Method Room Air Room Air Room Air Sepsis Recent Fever Within 48 Hours Sepsis New/Unexplained Change in Mental Status Sepsis Action Taken by Nursing 02/14/23 07:02 02/14/23 07:30 Temperature 36.9 C Temperature Source Oral Pulse Rate Pulse Rate [Left Apical] 65 63 Pulse Rate from SpO2 Sensor Pulse Rhythm Pulse Rhythm [Left Apical] Regular Pulse Strength Pulse Strength [Left Apical] Normal Respiratory Rate 17 16 Respiratory Effort / Characteristics Non-Labored Non-Labored Spontaneous Respiratory Depth Normal Normal Respiratory Pattern Regular Blood Pressure Blood Pressure [Right Arm] 175/70 H 178/84 H Blood Pressure Mean Blood Pressure Mean [Right Arm] 105 115 Blood Pressure Position Blood Pressure Position [Right Arm] Semi-fowlers Pulse Oximetry 97 100 Oxygen Delivery Method Room Air Nasal Cannula Sepsis Recent Fever Within 48 Hours Sepsis New/Unexplained Change in Mental Status Sepsis Action Taken by Nursing Laboratory Data 02/14/23 04:28 02/14/23 04:28 Lab Results 02/14/23 02/14/23 02/14/23 Range/Units 04:28 04:28 04:28 WBC 3.10 L (4.8-10.8) K/ul RBC 3.97 L (4.20-5.40) M/uL Hgb 12.2 (12.0-16.0) g/dl POC Hgb (12.0-16.0) g/dl Hct 37.4 (37.0-47.0) % POC Hct (37-47) % MCV 94.2 (80.0-100.0) fL MCH 30.7 (25.0-34.0) pg MCHC 32.6 (32.0-36.0) g/dL RDW Std Deviation 52.4 H (36.4-46.3) fL RDW Coeff of Leah 15.0 H (11.5-14.5) % Plt Count 80 L (130-400) K/uL MPV 10.5 (9.4-12.4) fL Immature Gran % (Auto) 0.3 % Neut % (Auto) 48.1 % Lymph % (Auto) 31.0 % Wise % (Auto) 15.2 % Eos % (Auto) 4.8 % Baso % (Auto) 0.6 % Neut # (Auto) 1.49 (1.40-6.50) K/uL Lymph # (Auto) 0.96 L (1.2-3.4) K/uL Wise # (Auto) 0.47 (0.11-0.59) K/uL Eos # (Auto) 0.15 (0-0.50) K/uL Baso # (Auto) 0.02 (0-0.2) K/uL Immature Gran # (Auto) 0.01 (0.01-0.20) K/uL POC Sodium (135-144) mmol/L Sodium 138 (136-145) mmol/L POC Potassium (3.3-5.0) mmol/L Potassium 4.7 (3.5-5.1) mmol/L POC Chloride (101-112) mmol/L Chloride 106 (98-107) mmol/L Carbon Dioxide 27 (21-32) mmol/L POC Total CO2 (24-31) mmol/L Anion Gap 5 (3-11) POC Anion Gap (16-25) mmol/L POC BUN (7-18) mg/dl BUN 49 H (6-23) mg/dl Creatinine 1.51 H (0.6-1.2) mg/dl POC Creatinine (0.6-1.3) mg/dl Est Cr Clr Drug Dosing 32.4 ml/min Est GFR ( Amer) 37.7 ml/min Est GFR (Non-Af Amer) 32.5 ml/min BUN/Creatinine Ratio 32.5 H (10-20) Glucose 140 H (70-99(Fasting)) mg/dl POC Glucose (other) (70-99) mg/dl Calcium 9.1 (8.6-10.3) mg/dl POC Ioniz Calcium Juan Daniel (1.12-1.32) mmol/l Magnesium 1.4 L (1.7-2.4) mg/dl Total Bilirubin 0.8 (0.2-1.0) mg/dl AST 33 (13-39) U/L ALT 20 (7-52) U/L Alkaline Phosphatase 99 (34-104) U/L Ammonia (18-72) umol/L Troponin I High Sens 11.2 (0-14) pg/ml Total Protein 7.5 (6.0-8.3) gm/dl Albumin 2.7 L (3.4-5.0) gm/dl Globulin 4.8 H (2.5-4.0) gm/dl Albumin/Globulin Ratio 0.6 L (0.9-2) TSH 4.889 H (0.300-4.500) uIu/ml Free T4 1.20 (0.61-1.60) ng/dl Urine Color Urine Appearance (Clear) Urine pH (4.5-7.5) Ur Specific [place] (1.000-1.030) Urine Protein (Negative) Urine Glucose (UA) (Negative) Urine Ketones (Negative) Urine Blood (Negative) Urine Nitrite (Negative) Urine Bilirubin (Negative) Urine Urobilinogen (Negative) Ur Leukocyte Esterase (Negative) Urine WBC (Auto) (0-5) /hpf Urine RBC (Auto) (0-4) /hpf U Hyaline Cast (Auto) (0-5) /lpf U Epithel Cells (Auto) (0-5) /lpf Urine Bacteria (Auto) (Negative) SARS-CoV-2, RNA, NAAT (NEGATIVE) 02/14/23 02/14/23 02/14/23 Range/Units 04:37 05:05 05:27 WBC (4.8-10.8) K/ul RBC (4.20-5.40) M/uL Hgb (12.0-16.0) g/dl POC Hgb 13.3 (12.0-16.0) g/dl Hct (37.0-47.0) % POC Hct 39 (37-47) % MCV (80.0-100.0) fL MCH (25.0-34.0) pg MCHC (32.0-36.0) g/dL RDW Std Deviation (36.4-46.3) fL RDW Coeff of Leah (11.5-14.5) % Plt Count (130-400) K/uL MPV (9.4-12.4) fL Immature Gran % (Auto) % Neut % (Auto) % Lymph % (Auto) % Wise % (Auto) % Eos % (Auto) % Baso % (Auto) % Neut # (Auto) (1.40-6.50) K/uL Lymph # (Auto) (1.2-3.4) K/uL Wise # (Auto) (0.11-0.59) K/uL Eos # (Auto) (0-0.50) K/uL Baso # (Auto) (0-0.2) K/uL Immature Gran # (Auto) (0.01-0.20) K/uL POC Sodium 141 (135-144) mmol/L Sodium (136-145) mmol/L POC Potassium 4.8 (3.3-5.0) mmol/L Potassium (3.5-5.1) mmol/L POC Chloride 105 (101-112) mmol/L Chloride (98-107) mmol/L Carbon Dioxide (21-32) mmol/L POC Total CO2 26 (24-31) mmol/L Anion Gap (3-11) POC Anion Gap 16.0 (16-25) mmol/L POC BUN 46 H (7-18) mg/dl BUN (6-23) mg/dl Creatinine (0.6-1.2) mg/dl POC Creatinine 1.4 H (0.6-1.3) mg/dl Est Cr Clr Drug Dosing ml/min Est GFR ( Amer) ml/min Est GFR (Non-Af Amer) ml/min BUN/Creatinine Ratio (10-20) Glucose (70-99(Fasting)) mg/dl POC Glucose (other) 139 H (70-99) mg/dl Calcium (8.6-10.3) mg/dl POC Ioniz Calcium Juan Daniel 1.24 (1.12-1.32) mmol/l Magnesium (1.7-2.4) mg/dl Total Bilirubin (0.2-1.0) mg/dl AST (13-39) U/L ALT (7-52) U/L Alkaline Phosphatase (34-104) U/L Ammonia (18-72) umol/L Troponin I High Sens (0-14) pg/ml Total Protein (6.0-8.3) gm/dl Albumin (3.4-5.0) gm/dl Globulin (2.5-4.0) gm/dl Albumin/Globulin Ratio (0.9-2) TSH (0.300-4.500) uIu/ml Free T4 (0.61-1.60) ng/dl Urine Color Yellow Urine Appearance Clear (Clear) Urine pH 6.5 (4.5-7.5) Ur Specific [place] 1.012 (1.000-1.030) Urine Protein 2+ H (Negative) Urine Glucose (UA) Negative (Negative) Urine Ketones Negative (Negative) Urine Blood Trace H (Negative) Urine Nitrite Negative (Negative) Urine Bilirubin Negative (Negative) Urine Urobilinogen Negative (Negative) Ur Leukocyte Esterase Negative (Negative) Urine WBC (Auto) 1-5 (0-5) /hpf Urine RBC (Auto) 0-4 (0-4) /hpf U Hyaline Cast (Auto) 1-5 (0-5) /lpf U Epithel Cells (Auto) 10-20 H (0-5) /lpf Urine Bacteria (Auto) Negative (Negative) SARS-CoV-2, RNA, NAAT NEGATIVE (NEGATIVE) 02/14/23 Range/Units 05:45 WBC (4.8-10.8) K/ul RBC (4.20-5.40) M/uL Hgb (12.0-16.0) g/dl POC Hgb (12.0-16.0) g/dl Hct (37.0-47.0) % POC Hct (37-47) % MCV (80.0-100.0) fL MCH (25.0-34.0) pg MCHC (32.0-36.0) g/dL RDW Std Deviation (36.4-46.3) fL RDW Coeff of Leah (11.5-14.5) % Plt Count (130-400) K/uL MPV (9.4-12.4) fL Immature Gran % (Auto) % Neut % (Auto) % Lymph % (Auto) % Wise % (Auto) % Eos % (Auto) % Baso % (Auto) % Neut # (Auto) (1.40-6.50) K/uL Lymph # (Auto) (1.2-3.4) K/uL Wise # (Auto) (0.11-0.59) K/uL Eos # (Auto) (0-0.50) K/uL Baso # (Auto) (0-0.2) K/uL Immature Gran # (Auto) (0.01-0.20) K/uL POC Sodium (135-144) mmol/L Sodium (136-145) mmol/L POC Potassium (3.3-5.0) mmol/L Potassium (3.5-5.1) mmol/L POC Chloride (101-112) mmol/L Chloride (98-107) mmol/L Carbon Dioxide (21-32) mmol/L POC Total CO2 (24-31) mmol/L Anion Gap (3-11) POC Anion Gap (16-25) mmol/L POC BUN (7-18) mg/dl BUN (6-23) mg/dl Creatinine (0.6-1.2) mg/dl POC Creatinine (0.6-1.3) mg/dl Est Cr Clr Drug Dosing ml/min Est GFR ( Amer) ml/min Est GFR (Non-Af Amer) ml/min BUN/Creatinine Ratio (10-20) Glucose (70-99(Fasting)) mg/dl POC Glucose (other) (70-99) mg/dl Calcium (8.6-10.3) mg/dl POC Ioniz Calcium Juan Daniel (1.12-1.32) mmol/l Magnesium (1.7-2.4) mg/dl Total Bilirubin (0.2-1.0) mg/dl AST (13-39) U/L ALT (7-52) U/L Alkaline Phosphatase (34-104) U/L Ammonia 181.0 H (18-72) umol/L Troponin I High Sens (0-14) pg/ml Total Protein (6.0-8.3) gm/dl Albumin (3.4-5.0) gm/dl Globulin (2.5-4.0) gm/dl Albumin/Globulin Ratio (0.9-2) TSH (0.300-4.500) uIu/ml Free T4 (0.61-1.60) ng/dl Urine Color Urine Appearance (Clear) Urine pH (4.5-7.5) Ur Specific [place] (1.000-1.030) Urine Protein (Negative) Urine Glucose (UA) (Negative) Urine Ketones (Negative) Urine Blood (Negative) Urine Nitrite (Negative) Urine Bilirubin (Negative) Urine Urobilinogen (Negative) Ur Leukocyte Esterase (Negative) Urine WBC (Auto) (0-5) /hpf Urine RBC (Auto) (0-4) /hpf U Hyaline Cast (Auto) (0-5) /lpf U Epithel Cells (Auto) (0-5) /lpf Urine Bacteria (Auto) (Negative) SARS-CoV-2, RNA, NAAT (NEGATIVE) Administered Medications Sodium Chloride (Nss 1000ml) 1,000 mls @ 125 mls/hr IV .Q8H ARMANDO Stop: 03/16/23 04:44 Last Admin: 02/14/23 05:32 Dose: 125 mls/hr Documented By: MILLER Magnesium Sulfate/Dextrose (Magnesium Sulfate / D5w) 1 gm in 100 mls @ 50 mls/hr IV Q2H ARMANDO Stop: 02/14/23 09:44 Last Admin: 02/14/23 07:51 Dose: 50 mls/hr Documented By: Infusion: 02/14/23 07:51 Dose: 0 mls/hr Documented By: Admin: 02/14/23 05:38 Dose: 50 mls/hr Documented By: MILLER Discontinued Medications Lactulose (Lactulose Syrup 30 Gm/45 Ml Udp) 30 gm PO NOW STA Stop: 02/14/23 07:49 Last Admin: 02/14/23 08:00 Dose: 30 gm Documented By: PROSPER Imaging Data Radiologist's Impression: Chest X-Ray 02/14/23 04:23 XR chest 1V portable CLINICAL HISTORY: weakness COMPARISON STUDY: Chest CT November 22, 2022. Chest radiograph January 25, 2023. FINDINGS: Lung volumes are normal. Lungs are clear. There is no pneumothorax or pleural effusion. Cardiomegaly is unchanged. Mediastinal contours are normal. There is no evidence for pulmonary edema. IMPRESSION: No acute cardiopulmonary findings. No change in appearance of the chest. ACT 112: Negative or not required by law. Electronically signed by: Eris Friedman M.D. 02/14/2023 7:[address] 02/14/23 04:36 CT OF THE HEAD WITHOUT CONTRAST CLINICAL HISTORY: weakness, vomiting COMPARISON STUDY: MRI of the brain May 16, 2022. Head CT December 28, 2022. CT DOSE: 625.80 mGy.cm TECHNIQUE: Helical axial images of the head were obtained without IV contrast. Automated exposure control was utilized for the study. A dose lowering technique was utilized adhering to the principles of ALARA. FINDINGS: No acute intracranial hemorrhage, midline shift or mass effect is present. A 1.6 cm right middle cranial fossa meningioma is unchanged. White matter hypodensities are unchanged. The appearance of the brain is unchanged. The ventricular system is unremarkable. The basal cisterns are patent. No extra- axial collections are present. There are no findings to suggest acute dural sinus thrombosis or acute territorial infarct. No significant calvarial abnormalities are present. Visualized portions of the sinuses and mastoid air cells are clear. IMPRESSION: No acute intracranial findings. No change in appearance of the brain. ACT 112: Negative or not required by law. Electronically signed by: Eris Friedman M.D. 02/14/2023 6:26 AM Abdomen/Pelvis CT 02/14/23 05:41 CT OF THE ABDOMEN AND PELVIS WITHOUT CONTRAST CLINICAL HISTORY: Vomiting. COMPARISON STUDY: CT of the abdomen and pelvis January 25, 2023. TECHNIQUE: Axial images of the abdomen and pelvis were obtained without IV con trast. Images were reviewed in the axial, sagittal, and coronal planes. Automated exposure control was utilized for the study. A dose lowering technique was utilized adhering to the principles of ALARA. FINDINGS: No pneumatosis, free air or portal venous gas is present. There are no renal, ureteral or bladder calculi. Evaluation of the remainder of the abdomen and pelvis is suboptimal on this unenhanced exam. Cirrhosis is again noted. Splenomegaly is unchanged. Varices are present. Unenhanced images of the adrenal glands and pancreas are unremarkable. There is no biliary or pancreatic ductal dilatation status post cholecystectomy. There is no evidence for a bowel obstruction. Sigmoid diverticulosis is present. No evidence for acute di verticulitis. There is no fluid collection. There is anasarca. This is similar to prior exam. No fluid collection is identified. IVC filter is in place. Postoperative findings within the lumbosacral spine are noted. No acute fractures are identified. Endplate irregularity and paravertebral soft tissue swelling.-T9 level is unchanged since prior CT. This is also similar to CT of December 28, 2022. IMPRESSION: 1. No acute process within the abdomen or pelvis on unenhanced exam. 2. Cirrhosis. Splenomegaly and varices formation. 3. No bowel obstruction. Sigmoid diverticulosis. No evidence for acute diverticulitis. No bowel wall thickening on unenhanced exam. 4. No change in endplate irregularity paravertebral soft tissue swelling at the T8-T9 level. This could be due to chronic degenerative changes. A discitis/osteomyelitis is not excluded although considered less likely. ACT 112: Negative or not required by law. Electronically signed by: Eris Friedman M.D. 02/14/2023 6:49 AM Discharge Plan Visit Data Chief Complaint: Weakness Stated Complaint: WEAKNESS ED Provider: Murali Nelson Discharge Problem: Hyperammonemia, Generalized weakness, Nausea & vomiting, Hypomagnesemia Forms Stand Alone Forms: [facility] Prescriptions Prescriptions: No Action levothyroxine 75 mcg tablet 75 mcg PO DAILY Qty: 90 3RF lactulose 10 gram/15 mL solution 30 g PO BID 90 Days Qty: 8100 5RF pantoprazole 40 mg tablet,delayed release (DR/EC) 40 mg PO BID Qty: 180 3RF Eliquis 2.5 mg tablet 2.5 mg PO BID Qty: 60 11RF propranolol 10 mg tablet 10 mg PO TID 90 Days Qty: 270 3RF coenzyme Q10 200 mg capsule 200 mg PO DAILY atorvastatin 10 mg tablet 10 mg PO HS Qty: 90 3RF magnesium chloride 64 mg tablet,delayed release (DR/EC) 128 mg PO TID Qty: 540 3RF spironolactone 25 mg tablet 25 mg PO DAILY Qty: 90 3RF Hold Instructions: high K cholecalciferol (vitamin D3) [Vitamin D3] 2,000 unit Capsule 2,000 unit PO QAM multivitamin Tablet 1 tab PO QAM vitamin E 400 unit capsule 400 unit PO QAM furosemide 40 mg tablet 40 mg PO QAM furosemide 40 mg tablet 20 mg PO QPM nystatin 100,000 unit/gram powder 1 applic topical TID PRN (Reason: rash) 30 Days Qty: 60 5RF Referrals Referrals: Jian Pierce DO [Primary Care Provider] -
[2023-02-14 04:49] LABS: iSTAT Creatinine 1.4 mg/dl (0.6-1.3); iSTAT Hemoglobin 13.3 g/dl (12.0-16.0); iSTAT Ionized Calcium 1.24 mmol/l (1.12-1.32); iSTAT Potassium 4.8 mmol/L (3.3-5.0)
[2023-02-14 05:05] LABS: Basophils # (auto) 0.02 K/uL (0-0.2); Basophils % (auto) 0.6 %; Eosinophils # (auto) 0.15 K/uL (0-0.50); Eosinophils % (auto) 4.8 %; Hematocrit (blood only) 37.4 % (37.0-47.0); Hemoglobin 12.2 g/dl (12.0-16.0); Immature Granulocytes # (auto) 0.01 K/uL (0.01-0.20); Immature Granulocytes % (auto) 0.3 %; Lymphocytes # (auto) 0.96 K/uL (1.2-3.4); Mean Corpuscular Hemoglobin 30.7 pg (25.0-34.0); Mean Corpuscular Hgb Conc 32.6 g/dL (32.0-36.0); Mean Corpuscular Volume 94.2 fL (80.0-100.0); Mean Platelet Volume 10.5 fL (9.4-12.4); Monocytes # (auto) 0.47 K/uL (0.11-0.59); Monocytes % (auto) 15.2 %; Neutrophils # (auto) 1.49 K/uL (1.40-6.50); Neutrophils % (auto) 48.1 %; Platelet Count 80 K/uL (130-400); RDW Standard Deviation 52.4 fL (36.4-46.3); Red Blood Count 3.97 M/uL (4.20-5.40)
[2023-02-14 05:10] LABS: Albumin Globulin Ratio 0.6 (0.9-2); Albumin Level 2.7 gm/dl (3.4-5.0); BUN Creatinine Ratio 32.5 (10-20); Bilirubin,Total 0.8 mg/dl (0.2-1.0); Calcium 9.1 mg/dl (8.6-10.3); Creatinine Clr Calc Pharmacy 32.4 ml/min; Est GFR (African American) 37.7 ml/min; Est GFR (Non-African American) 32.5 ml/min; Globulin 4.8 gm/dl (2.5-4.0); Magnesium 1.4 mg/dl (1.7-2.4); Potassium 4.7 mmol/L (3.5-5.1); Total Protein 7.5 gm/dl (6.0-8.3)
[2023-02-14 05:13] LABS: Troponin I High Sensitivity 11.2 pg/ml (0-14)
[2023-02-14 05:22] LABS: Thyroid Stimulating Hormone 4.889 uIu/ml (0.300-4.500)
[2023-02-14] MEDS: SODIUM CHLORIDE 0.9% 1000ML 1,000 ML IV SCH ×2 (05:32→10:20)
[2023-02-14] MEDS: MAGNESIUM SULFATE / D5W 1 GM/100 ML BAG IV SCH ×2 (05:38→07:51)
[2023-02-14 05:46] LABS: Appearance Urine Clear (Clear); Bacteria Urine Automated Negative (Negative); Bilirubin Urine Negative (Negative); Blood Urine Trace (Negative); Color Urine Yellow; Glucose Urine UA Negative (Negative); Ketones Urine Negative (Negative); Leukocyte Esterase Urine Negative (Negative); Nitrite Urine Negative (Negative); Protein Urine 2+ (Negative); RBC Urine Automated 0-4 /hpf (0-4); Specific Gravity Urine 1.012 (1.000-1.030); Urobilinogen Urine Negative (Negative); pH Urine 6.5 (4.5-7.5)
[2023-02-14 05:56] LABS: T4 Free Thyroxine 1.2 ng/dl (0.61-1.60)
--- NOTE | 2023-02-14 06:22 | History & Physical Report ---
Date of Service February 14, 2023 Assessment & Plan (1) Generalized weakness: Plan: Weakness, recurrent nausea/vomiting Similar episodes in the past with elevated ammonia in the setting of lactulose noncompliance, and similar weakness in the past & with low magnesium which is 1.4 admission Ammonia pending at time of admission consultation - CT-A/P naf At bedside upper and lower extremity strength is symmetrical, is speaking fluently. Reports that her slurred speech is normal for her with fatigue, she does not think she has any new/unusual dysarthria and has no aphasia. No vision change or other strokelike deficits Lactulose continued No acute transaminitis High-sensitivity troponin is normal TSH is elevated, free T4 is normal Magnesium 1.4, repletion PO and IV pending, she is on high-dose magnesium at home and additional increase is likely to contribute to her diarrhea and increased losses. IV repletion ordered. PT/OT pending We will continue PPI, H2. Additional Zofran deferred due to QT prolongation and hypomagnesemia, followed on telemetry for QT prolongation Slurred speech appears consistent w pts baseline, but given abrupt onset and continued sx MRI-B + MRI-angio, US-neck ordered. Not a tnkase candidate if CVA due to eliquis. CT-H naf. - Cr/BUN ratio contracted, s/p 1L fluid in ER Cirrhosis 2/2 GREGORY Continue propranolol, spironolactone, lactulose, Pepcid Ammonia pending No evidence of acute decompensated liver failure on admission If ammonia elevated given that she is compliant with her lactulose and additional bowel movements likely to worsen her hypomagnesemia/electrolyte derangements, --> start Xifaxan Heart failure with preserved ejection fraction; history of cor pulmonale 11/22/2022 echo: EF 55%. LV wall motion normal. Moderate suspected. Trace GA. Severe tricuspid regurg. Appears clinically near euvolemic GERD - Pantoprazole continued A-fib Has been eliquis 2.5mg daily BID. 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 Conservative sliding scale ordered, goal BSG [id number] Hyperlipidemia Continue statin Hypothyroidism Free T4 is normal, continue Synthroid Diet: Heart healthy, DM, low-sodium DVT PPx: [place] prophylaxis deferred in setting of recurrent bleeding and IVC filter, SCDs CODE STATUS: DNR/DNI Disposition: Medical telemetry (2) Nausea & vomiting: (3) UTI (urinary tract infection): (4) Stage 3b chronic kidney disease: (5) Chronic diastolic heart failure: (6) Chronic kidney disease, stage III (moderate): (7) Cor pulmonale: (8) Type 2 DM with CKD stage 4 and hypertension: (9) 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 to alcohol: History of Present Illness Primary Care Provider: Jian Pierce DO Rose Mary presents to the emergency department with weakness which began at around 3 AM. She has had nausea and vomiting, lightheadedness, and dizziness. Family notes slurred speech on admission. CTAs were deferred in ER due to CKD. At bedside assessment family reports that Rose Mary appears Seen at bedside with family. Last week muchmore nauseus in the mornings daily with dry heaves. Last night seemed worse than normal and rose mary was much more weak than usual. Denies focal weakness. Rose Mary and daughter reports she intermittent has slurred speech when tired and this was present this morning as well. She has been taking lactulose and going 3x per day at home. Has some low pelvic pelvic pain, feels 'not much, better than before just sore from dry heaving.' Weakness and speech feels similar to when she has been tired/low mag before. No chest pain, no chest pressure No Fevers L leg is a little swollen at baseline, no change per pt Latulose makes BMs runny, no change in this No vision change No dysuria/polyuria Eating and drinking normally th elast few days Creatinine is approximately 1.451.6 at baseline, admitting creatinine 1.5 BSG 140 Magnesium 1.4 UA uninfected appearing Platelet baseline [id number]. Admitting platelet 80 Medical History: Reviewed Medications: Reviewed Surgical History: Reviewed Family history: Reviewed Allergies: Reviewed Social History: Reviewed Code Status: DNR Allergies Allergy/AdvReac Type Severity Reaction Status Date / Time No Known Allergies Allergy Verified 01/25/23 09:09 Home Medications Medication Instructions Recorded Confirmed Type cholecalciferol (vitamin D3) 50 2,000 unit PO QAM 07/01/18 01/25/23 History mcg (2,000 unit) capsule (Vitamin D3) multivitamin 1 tab PO QAM 10/14/19 01/25/23 History vitamin E 268 mg (400 unit) capsule 400 unit PO QAM 08/14/20 01/25/23 History coenzyme Q10 200 mg capsule 200 mg PO DAILY 11/01/21 01/25/23 History atorvastatin 10 mg tablet 10 mg PO HS #90 tabs 09/08/22 01/25/23 Rx magnesium chloride 64 mg 128 mg PO TID #540 tabs 09/08/22 01/25/23 Rx (magnesium chloride) tablet,delayed release levothyroxine 75 mcg tablet 75 mcg PO DAILY #90 tabs 11/18/22 01/25/23 Rx furosemide 40 mg tablet 40 mg PO QAM 11/21/22 01/25/23 History spironolactone 25 mg tablet 25 mg PO DAILY #90 tabs 12/06/22 01/25/23 Rx furosemide 40 mg tablet 20 mg PO QPM 12/28/22 01/25/23 History nystatin 100,000 unit/gram topical 1 applic topical TID PRN rash 30 01/04/23 01/25/23 Rx powder days #60 grams propranolol 10 mg tablet 10 mg PO TID 90 days #270 tabs 01/23/23 01/25/23 Rx lactulose 10 gram/15 mL oral 30 g (45 mL) PO BID 90 days #8,100 01/30/23 Rx solution mL pantoprazole 40 mg tablet,delayed 40 mg PO BID #180 tabs 02/07/23 Rx release apixaban 2.5 mg tablet (Eliquis) 2.5 mg PO BID #60 tabs 02/13/23 Rx Past Med/Surg History Medical History Acute hyperkalemia Acute on chronic diastolic heart failure EMY (acute kidney injury) Chronic deep vein thrombosis (DVT) Cough Diverticular hemorrhage resolved Dizziness DVT (deep venous thrombosis) Elevated troponin Encephalopathy acute Esophageal varices determined by endoscopy Fever GERD (gastroesophageal reflux disease) GI bleed none at present Hepatic encephalopathy Lactate blood increase Migraine Monoclonal gammopathy Nausea & vomiting Nausea vomiting and diarrhea Osteoarthritis Presence of IVC filter Pulmonary embolism 2018 > no known cause > Filter to right groin Rhinovirus Stage 3b chronic kidney disease Thrombocytopenia Vertigo Volume overload Vomiting and diarrhea Weakness Wheezing Surgical History History of bilateral breast reduction surgery History of bilateral cataract extraction History of carpal tunnel release of both wrists History of section x3 History of colonoscopy History of dilatation and curettage History of esophagogastroduodenoscopy (EGD) History of laparoscopic cholecystectomy History of lumbar spinal fusion hardware in place History of tonsillectomy History of tooth extraction all teeth History of total left knee replacement (TKR) History of total right knee replacement (TKR) Family History Mother Family history of diabetes mellitus Brother Family history of diabetes mellitus 3 brothers Colorectal cancer Myocardial infarction x 2 Father Myocardial infarction Denies family history of Ovarian cancer Prostate cancer Breast cancer Social History Smoking Status: Never smoker Tobacco Type: Cigarettes Age Started Using Tobacco: 15; Age Quit Using Tobacco: 21; Cigarettes Per Day: stopped 55 years ago; Second Hand Exposure: No; Do You Dip or Chew Tobacco: No; Hx Alcohol Use: No Hx Substance Use: No Preferred Language: Turkish Communication Ability: Effective Visual Impairment: Limited Hearing Ability: Normal 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: No Beliefs That Will Affect Care: None marital status: / Current Living Situation: Family Current Living Situation Comment: SON AT HOME current occupational status: retired How many Children do You have: 3 Feels Safe at Home: Yes Childhood Exposure to Second-Hand Smoke: Yes Diet: regular caffeine: Yes (tea) during the past year weight has: remained stable Dental Care, Regularly: No Physical Activity Frequency: Does not Exercise Seatbelt Use: always Sunscreen Use: No Do you think of yourself as: straight/heterosexual Gender Identity: Female Assistive Devices: Walker Review of Systems Review of Systems: All systems reviewed & are unremarkable except as noted in Subjective Physical Exam Physical Exam: General: A&Ox3. NAD. Cooperative. HEENT: Atraumatic, normocephalic. Vision/hearing grossly intact Pulm: CTAB A&P. -wheezes, -rales, -rhonchi. Symmetrical chest rise. No increased work of breathing. No respiratory distress. Cardiac: RRR, -mrg. Radial pulses intact and symmetrical. Abdominal: mild ttp in epigastrum, soft, no rebound, nondistended CRANIAL NERVES: II: Pupils equal and reactive, no relative afferent pupillary defect, no VF cuts III, IV, : EOM intact, no gaze preference or deviation, no nystagmus. V: normal sensation in V1, V2, and V3 segments bilaterally VII: no asymmetry, no nasolabial fold flattening VIII: normal hearing to speech IX, X: normal palatal elevation, no uvular deviation XI: 5/5 head turn and 5/5 shoulder shrug bilaterally XII: midline tongue protrusion MOTOR: RUE: 4-/5 Shoulder internal rotation, external rotation, flexion, extension, abduction, adduction 4-/5 Elbow flexion/extension, wrist flexion/extension 4-/5 oil refiner strength, finger flexion/extension, interosseus LUE: 4-/5 Shoulder internal rotation, external rotation, flexion, extension, abduction, adduction 4-/5 Elbow flexion/extension, wrist flexion/extension 4-/5 oil refiner strength, finger flexion/extension, interosseus RLE: 4-/5 to hip flexion, ankle dorsiflexion/plantarflexion LLE: 4-/5 to hip flexion, ankle dorsiflexion/plantarflexion SENSORY: Normal to touch in upper and lower extremities without deficit or asymmetry Results & Data Results & Data Vital Signs (Past 12 Hours) Vital Signs Temp Pulse Resp BP Pulse Ox O2 Del Method 02/14/23 05:30 71 17 178/103 H 98 Room Air 02/14/23 05:01 66 17 169/98 H 93 Room Air 02/14/23 04:34 36.9 C 66 20 195/111 H 94 Room Air 02/14/23 04:28 64 PG Care Time/CCT Total # of Minutes Spent Total Time Spent with Patient: Total time spent is greater than 50% in coordination of care (as documented) at patient's floor/unit and/or counseling patient: Coding Level of Care Code 91990 INT INP/OBS CARE 2/55MIN Diagnoses Generalized weakness R53.1 Nausea & vomiting R11.2 UTI (urinary tract infection) N39.0 Stage 3b chronic kidney disease N18.32 Chronic diastolic heart failure I50.32 Chronic kidney disease, stage III (moderate) N18.30 Cor pulmonale I27.81 Type 2 DM with CKD stage 4 and hypertension E11.22; I12.9; N18.4 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 to alcohol K74.60
--- NOTE | 2023-02-14 06:28 | CT Scan Report ---
CT OF THE HEAD WITHOUT CONTRAST CLINICAL HISTORY: weakness, vomiting COMPARISON STUDY: MRI of the brain May 16, 2022. Head CT December 28, 2022. CT DOSE: 625.80 mGy.cm TECHNIQUE: Helical axial images of the head were obtained without IV contrast. Automated exposure con trol was utilized for the study. A dose lowering technique was utilized adhering to the principles o f ALARA. FINDINGS: No acute intracranial hemorrhage, midline shift or mass effect is present. A 1.6 cm right m iddle cranial fossa meningioma is unchanged. White matter hypodensities are unchanged. The appearance of the brain is unchanged. The ventricular system is unremarkable. The basal cisterns are patent. No extra-axial collections are present. There are no findings to suggest acute dural sinus thrombosis o r acute territorial infarct. No significant calvarial abnormalities are present. Visualized portions of the sinuses and mastoid air cells are clear. IMPRESSION: No acute intracranial findings. No change in appearance of the brain. ACT 112: Negative or not required by law. Electronically signed by: Eris Friedman M.D. 02/14/2023 6:26 AM
--- NOTE | 2023-02-14 06:51 | CT Scan Report ---
CT OF THE ABDOMEN AND PELVIS WITHOUT CONTRAST CLINICAL HISTORY: Vomiting. COMPARISON STUDY: CT of the abdomen and pelvis January 25, 2023. TECHNIQUE: Axial images of the abdomen and pelvis were obtained without IV contrast. Images were revi ewed in the axial, sagittal, and coronal planes. Automated exposure control was utilized for the kyle dy. A dose lowering technique was utilized adhering to the principles of ALARA. FINDINGS: No pneumatosis, free air or portal venous gas is present. There are no renal, ureteral or b ladder calculi. Evaluation of the remainder of the abdomen and pelvis is suboptimal on this unenhance d exam. Cirrhosis is again noted. Splenomegaly is unchanged. Varices are present. Unenhanced images o f the adrenal glands and pancreas are unremarkable. There is no biliary or pancreatic ductal dilatati on status post cholecystectomy. There is no evidence for a bowel obstruction. Sigmoid diverticulosis is present. No evidence for acute diverticulitis. There is no fluid collection. There is anasarca. Th is is similar to prior exam. No fluid collection is identified. IVC filter is in place. Postoperative findings within the lumbosacral spine are noted. No acute fractures are identified. Endplate irregul arity and paravertebral soft tissue swelling.-T9 level is unchanged since prior CT. This is also nargis lar to CT of December 28, 2022. IMPRESSION: 1. No acute process within the abdomen or pelvis on unenhanced exam. 2. Cirrhosis. Splenomegaly and varices formation. 3. No bowel obstruction. Sigmoid diverticulosis. No evidence for acute diverticulitis. No bowel wall thickening on unenhanced exam. 4. No change in endplate irregularity paravertebral soft tissue swelling at the T8-T9 level. This cou ld be due to chronic degenerative changes. A discitis/osteomyelitis is not excluded although consider ed less likely. ACT 112: Negative or not required by law. Electronically signed by: Eris Friedman M.D. 02/14/2023 6:49 AM
--- NOTE | 2023-02-14 07:07 | XRay Report ---
XR chest 1V portable CLINICAL HISTORY: weakness COMPARISON STUDY: Chest CT November 22, 2022. Chest radiograph January 25, 2023. FINDINGS: Lung volumes are normal. Lungs are clear. There is no pneumothorax or pleural effusion. Car diomegaly is unchanged. Mediastinal contours are normal. There is no evidence for pulmonary edema. IMPRESSION: No acute cardiopulmonary findings. No change in appearance of the chest. ACT 112: Negative or not required by law. Electronically signed by: Eris Friedman M.D. 02/14/2023 7:06 AM
[2023-02-14] MEDS ORDERED: LACTULOSE SYRUP 30 GM/45 ML UDP PO STA (07:48)
[2023-02-14] MEDS ORDERED: ALUMINUM/MAGNESIUM SUSP 30 ML UDC PO PRN (09:37)
[2023-02-14] MEDS ORDERED: MAGNESIUM SULFATE / D5W 1 GM/100 ML BAG IV ONE (09:44)
[2023-02-14] MEDS ORDERED: FAMOTIDINE 20 MG in SYRINGE 3 ML IV ONE (09:45)
[2023-02-14] MEDS: PROPRANOLOL HCL 10 MG TAB PO SCH ×3 (10:21→20:11)
[2023-02-14] MEDS: LEVOTHYROXINE SODIUM 75 MCG TABLET PO SCH (10:21)
[2023-02-14] MEDS: APIXABAN 2.5 MG TAB PO SCH ×2 (10:22→20:10)
[2023-02-14] MEDS: MAGNESIUM CHLORIDE W/CALCIUM 64MG DELAYED REL TAB PO SCH ×3 (10:22→20:10)
[2023-02-14] MEDS: SPIRONOLACTONE 25 MG TAB PO SCH (10:26)
[2023-02-14] MEDS: PANTOprazole 40 MG TAB PO SCH ×2 (10:26→20:10)
--- NOTE | 2023-02-14 11:37 | Electrocardiogram Report ---
Test Reason : Blood Pressure : / mmHG Vent. Rate : 068 BPM Atrial Rate : 068 BPM P-R Int : 164 ms QRS Dur : 142 ms QT Int : 482 ms P-R-T Axes : -05 -50 025 degrees QTc Int : 512 ms Sinus rhythm with occasional Premature ventricular complexes Right bundle branch block Left anterior fascicular block Abnormal ECG When compared with ECG of 25-JAN-2023 07:40, Premature ventricular complexes are now Present Premature atrial complexes are no longer Present Confirmed by Hayden Benavides ([id number]) on 02/14/2023 11:37:18 AM Referred By: REFERRED SELF Confirmed By:Hayden Benavides
--- NOTE | 2023-02-14 15:11 | Magnetic Resonance Report ---
Brain MRI WITHOUT CONTRAST HISTORY: dysarthria TECHNIQUE: Multiplanar multisequence MRI of the brain was performed without the use of contrast. COMPARISON STUDY: Head CT 02/14/2023. Brain/pituitary MRI 10/24/2018. FINDINGS: No areas restricted diffusion to suggest an acute infarction. Scattered punctate foci of T2 hyperintensity seen within the periventricular and subcortical white matter of the supratentorial br ain. This is nonspecific but favors mild to moderate microvascular ischemic change. This is similar t o the prior study. 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 There is no hematoma or midline shift. The paranasal sinuses and mastoid air cells are clear. The major vascular flow-voids at the skull base are well-maintained. Prior bilateral lens replacement is noted. Stable 1.9 cm right middle cranial fossa extra-axial lesion likely representing a meningioma. Stable 2 cm pituitary mass . No new intracranial lesions identified. The ventricles are normal in size. IMPRESSION: 1. No acute infarct or intracranial hemorrhage. 2. Stable 2 cm pituitary mass and a stable 1.9 cm meningioma within the right middle cranial fossa. 3. Mild microvascular ischemic changes again noted. ACT 112: Negative or not required by law. Electronically signed by: Derian Kerns M.D. 02/14/2023 3:10 PM
--- NOTE | 2023-02-14 15:30 | Ultrasound Report ---
US carotid doppler BI CLINICAL HISTORY: 77 years-old Female with dysarthria. Acute strokelike symptoms COMPARISON: Brain MRI of same day TECHNIQUE: Multiple real time sonographic images of the carotid bifurcations were obtained assessing carrillo scale, color Doppler and spectral wave form appearance FINDINGS: RIGHT CAROTID: The peak systolic velocity measured within the right ICA is 65 cm/sec. The end diast olic velocity measured 17 cm/sec. The ICA to CCA ratio measured 1.1 which correlates with a stenosis of 0-50%. Moderate atherosclerotic plaque of the right carotid bulb. LEFT CAROTID: The peak systolic velocity measured within the left ICA is 97 cm/sec. The end diastol ic velocity measured 16 cm/sec. The ICA to CCA ratio measured 1.6 which correlates with a stenosis of 0-50%. Moderate atherosclerotic plaque of the left carotid bulb. There is normal antegrade vertebral flow bilaterally. IMPRESSION: 1. Atherosclerosis without hemodynamically significant stenosis. 2. Normal antegrade vertebral flow bilaterally. ACT 112: Negative or not required by law. The above report was generated using voice recognition software. It may contain grammatical, syntax o r spelling errors. Electronically signed by: Victor M Reyna M.D. 02/14/2023 3:29 PM
--- NOTE | 2023-02-14 15:30 | Magnetic Resonance Report ---
MR angio head wo con HISTORY: 77 years-old Female dysarthria acute stroke like symptoms COMPARISON: Brain MRI of same day TECHNIQUE: MRA of the head was obtained without the use of IV contrast utilizing 3-D [id number] equencing with reformats. FINDINGS: Motion degraded exam. No aneurysm, dissection, high-grade stenosis or arterial occlusion identified. Prominence of the pituitary gland incidentally noted. IMPRESSION: Unremarkable MRA. ACT 112: Negative or not required by law. The above report was generated using voice recognition software. It may contain grammatical, syntax o r spelling errors. Electronically signed by: Victor M Reyna M.D. 02/14/2023 3:29 PM
--- NOTE | 2023-02-14 16:18 | Hospitalist Progress Note ---
Date of Service February 14, 2023 Assessment & Plan (1) Hyperammonemia: (2) Generalized weakness: (3) 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 to alcohol: (4) Chronic kidney disease, stage III (moderate): (5) Chronic diastolic heart failure: (6) Diabetes mellitus with peripheral vascular disease: (7) Hypomagnesemia: Plan 77 y/o F presented with weakness which began at around 3 AM. She has had nausea and vomiting, lightheadedness, and dizziness. Family notes slurred speech on admission #Generalized weakness with slurred speech: - stroke work up neg. - sec to hyperammonemia/hypomag/less likely deconditioning #Hyperammonemia: - Ammonia level 181 02/14 - Continue Lactulose - has been compliant with doses. -Not able to tolerate higher doses in past. - Start Rifaximin - Recheck ammonia in AM #Cirrhosis: - Continue propranolol, spironolactone, lactulose, pepcid #Hypomag - On daily supplement 64mgs tid. Likely from diuretics. - Magnesium 1.4, repletion ordered - recheck Mag AM #Chronic diastolic heart failure - Furosemide put on hold on admission. - To avoid fluid overload- d/c IVF. - Will need to resume lasix in am. #A-Fib: - EKG: sinus rhythm with PVCs, QTc 512 - Telemetry monitoring - Continue Eliquis 2.5mg BID #DM: - sliding scale insulin ordered, goal BSG 100-140 #CKD III: - Creatinine 1.51 02/14, at baseline d/c IVF Apixaban Carb consistent diet DNR PT/OT Admission and Anticipated Discharge Date Admission Date: February 14, 2023 Supervising Physician Co-Signing Physician Notes Resident Physician Supervision Note: I independently interviewed and examined the patient and verified the almanzar history and physical, reviewed labs and image studies and agree with resident findings and care plan. Subjective Pt is a 77 year old female with PMHx significant for CHF, CKD, cirrhosis, chronic DVT s/p IVC filter presenting with generalized weakness and nausea/vo miting. Patient evaluated at bedside, states that she has been having intermittent nausea and vomiting for roughly the past week, particularly in the mornings. Patient notes that she began feeling generally weak last night but that it seemed significantly worse around 3AM, which led her to seek care. Per admission H&P, family also felt the patient was dysarthric, has exhibited slurred speech during past hospitalizations. Patient denies recent fevers, chills, headache, chest pain, shortness of breath, abdominal pain. Of note, patient has a history of cirrhosis, reports that she takes her lactulose consistently and has 3 soft bowel movements daily. Review of Systems Review of Systems: All systems reviewed & are unremarkable except as noted in HPI & below Physical Exam Constitutional: WD/WN, vitals as above not in distress Respiratory: normal respiratory effort, lungs clear to auscultation Cardiovascular: Regular rate and rhythm, systolic ejection murmur appreciated Gastrointestinal (Abdomen): normal bowel sounds, soft, nontender, no hepatosplenomegaly Skin: no rashes, warm and dry Neurologic: AOx4, Cranial nerves II-XII grossly intact, sensation intact, mild dysarthria but patient states that this is baseline, strength 4/5 in all four extremities Results & Data Results & Data Vital Signs (Past 12 Hours) Vital Signs Temp Pulse Pulse Resp BP BP Pulse Ox 02/14/23 07:30 63 16 178/84 H 100 02/14/23 07:02 36.9 C 65 17 175/70 H 97 02/14/23 06:31 60 20 181/89 H 96 02/14/23 06:00 69 20 162/115 H 98 02/14/23 05:30 71 17 178/103 H 98 02/14/23 05:01 66 17 169/98 H 93 02/14/23 04:34 36.9 C 66 20 195/111 H 94 02/14/23 04:28 64 O2 Del Method 02/14/23 07:30 Room Air 02/14/23 07:02 Room Air 02/14/23 06:31 Room Air 02/14/23 06:00 Room Air 02/14/23 05:30 Room Air 02/14/23 05:01 Room Air 02/14/23 04:34 Room Air 02/14/23 04:28 Resident Activity Tracking Resident Involvement: Resident Care Provided Care Provided: Adult Hospital Medicine
[2023-02-14] MEDS ORDERED: GLUCOSE 10 TAB/TUBE PO PRN (17:48)
[2023-02-14] MEDS ORDERED: GLUCAGON FOR INJ 1 MG VIAL SQ PRN (17:48)
[2023-02-14] MEDS ORDERED: DEXTROSE 50% 50 ML SYRINGE IV PRN (17:48)
[2023-02-14] MEDS ORDERED: GLUCOSE 40% GEL 15 GM TUBE PO PRN (17:48)
[2023-02-14] MEDS ORDERED: CARBOHYDRATES FOR HYPOGLYCEMIA PO PRN (17:48)
[2023-02-14] MEDS: LACTULOSE SYRUP 30 GM/45 ML UDP PO SCH (20:10)
[2023-02-14] MEDS: ATORVASTATIN 10 MG TAB PO SCH (20:10)
[2023-02-14] MEDS: INSULIN ASPART PER UNIT CHARGE SC SCH (20:11)
[2023-02-14] MEDS: rifAXIMin 550 MG TABLET PO SCH (20:50)
[2023-02-14] MEDS: ACETAMINOPHEN 325 MG TAB PO PRN (21:50)
[2023-02-15] MEDS: LEVOTHYROXINE SODIUM 75 MCG TABLET PO SCH (05:44)
[2023-02-15 06:38] LABS: Basophils # (auto) 0.03 K/uL (0-0.2); Basophils % (auto) 1.1 %; Eosinophils # (auto) 0.12 K/uL (0-0.50); Eosinophils % (auto) 4.5 %; Hematocrit (blood only) 36.8 % (37.0-47.0); Hemoglobin 11.5 g/dl (12.0-16.0); Immature Granulocytes # (auto) 0.03 K/uL (0.01-0.20); Immature Granulocytes % (auto) 1.1 %; Lymphocytes % (auto) 37.5 %; Mean Corpuscular Hemoglobin 31.3 pg (25.0-34.0); Mean Corpuscular Hgb Conc 31.3 g/dL (32.0-36.0); Mean Corpuscular Volume 100.3 fL (80.0-100.0); Mean Platelet Volume 11.3 fL (9.4-12.4); Monocytes # (auto) 0.36 K/uL (0.11-0.59); Monocytes % (auto) 13.5 %; Neutrophils # (auto) 1.13 K/uL (1.40-6.50); Neutrophils % (auto) 42.3 %; Platelet Count 66 K/uL (130-400); RDW Coefficient of Variation 15.2 % (11.5-14.5); RDW Standard Deviation 56.2 fL (36.4-46.3); Red Blood Count 3.67 M/uL (4.20-5.40); White Blood Count 2.67 K/ul (4.8-10.8)
--- NOTE | 2023-02-15 06:46 | Hospitalist Progress Note ---
Date of Service February 15, 2023 Assessment & Plan (1) Hyperammonemia: (2) Generalized weakness: (3) 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 to alcohol: (4) Chronic kidney disease, stage III (moderate): (5) Chronic diastolic heart failure: (6) Diabetes mellitus with peripheral vascular disease: (7) Hypomagnesemia: Plan 77 y/o F presented with weakness which began at around 3 AM. She has had nausea and vomiting, lightheadedness, and dizziness. Family notes slurred speech on admission #Generalized weakness with slurred speech: - stroke work up neg. - sec to hyperammonemia/hypomag/less likely deconditioning - Improving - Awaiting updated assessment from PT/OT #Hyperammonemia: - Ammonia level 181 on 02/14; 129 on 02/15 - Continue Lactulose - has been compliant with doses. -Not able to tolerate higher doses in past. - Continue Rifaximin - Recheck ammonia in AM #Cirrhosis: - Continue propranolol, spironolactone, lactulose, pepcid #Hypomag - On daily supplement 64mgs tid. Likely from diuretics. - Magnesium 1.8 02/15 - recheck Mag AM #Chronic diastolic heart failure - Furosemide put on hold on admission. - To avoid fluid overload- IVF discontinued 02/14 - Lasix resumed 02/15 #A-Fib: - EKG: sinus rhythm with PVCs, QTc 512 - Telemetry monitoring - Continue Eliquis 2.5mg BID #DM: - sliding scale insulin ordered, goal BSG 100-140 #CKD III: - Creatinine 1.42 on 02/15, at baseline d/c IVF Apixaban Carb consistent diet DNR PT/OT Admission and Anticipated Discharge Date Admission Date: February 14, 2023 Supervising Physician Co-Signing Physician Notes Resident Physician Supervision Note: I independently interviewed and examined the patient and verified the almanzar history and physical, reviewed labs and image studies and agree with resident findings and care plan. Subjective Patient evaluated at bedside, found in no apparent distress. She notes that she is feeling significantly stronger today, notes that she has been able to ambulate to the bathroom using a walker. Patient also reports that she and her family feel that her speech is clearer than it was yesterday. Bowel movements have been consistent and same consistency as at home, denies adverse effects since starting Rifaximin. Review of Systems Review of Systems: All systems reviewed & are unremarkable except as noted in HPI & below Physical Exam Constitutional: WD/WN, vitals as above not in distress Respiratory: normal respiratory effort, lungs clear to auscultation Cardiovascular: Regular rate and rhythm, systolic ejection murmur appreciated Gastrointestinal (Abdomen): normal bowel sounds, soft, nontender, no hepatosplenomegaly Musculoskeletal: Strength 4/5 in all four extremities, improved from yesterday Skin: no rashes, warm and dry Neurologic: AOx4, speech intact and improved from yesterday Results & Data Results & Data Vital Signs (Past 12 Hours) Vital Signs Temp Pulse Pulse Resp BP BP Pulse Ox 02/15/23 03:00 36.5 C 57 L 20 153/80 H 96 02/14/23 22:00 36.4 C L 62 20 177/83 H 94 02/14/23 23:19 54 L 02/14/23 22:18 02/14/23 19:00 36.3 C L 63 18 143/68 H 97 O2 Del Method 02/15/23 03:00 Room Air 02/14/23 22:00 Room Air 02/14/23 23:19 02/14/23 22:18 Room Air 02/14/23 19:00 Room Air Resident Activity Tracking Resident Involvement: Resident Care Provided Care Provided: Adult Hospital Medicine
[2023-02-15 06:48] LABS: Albumin Globulin Ratio 0.6 (0.9-2); Albumin Level 2.4 gm/dl (3.4-5.0); BUN Creatinine Ratio 30.3 (10-20); Bilirubin,Total 0.7 mg/dl (0.2-1.0); Calcium 8.8 mg/dl (8.6-10.3); Creatinine Clr Calc Pharmacy 34.7 ml/min; Est GFR (African American) 40.6 ml/min; Globulin 4.2 gm/dl (2.5-4.0); Magnesium 1.8 mg/dl (1.7-2.4); Total Protein 6.6 gm/dl (6.0-8.3)
[2023-02-15] MEDS: INSULIN ASPART PER UNIT CHARGE SC SCH ×4 (08:26→21:03)
[2023-02-15] MEDS: rifAXIMin 550 MG TABLET PO SCH ×2 (08:41→21:04)
[2023-02-15] MEDS: SPIRONOLACTONE 25 MG TAB PO SCH (08:42)
[2023-02-15] MEDS: LACTULOSE SYRUP 30 GM/45 ML UDP PO SCH ×2 (08:43→21:04)
[2023-02-15] MEDS: APIXABAN 2.5 MG TAB PO SCH ×2 (08:43→21:02)
[2023-02-15] MEDS: PANTOprazole 40 MG TAB PO SCH ×2 (08:44→21:03)
[2023-02-15] MEDS: MAGNESIUM CHLORIDE W/CALCIUM 64MG DELAYED REL TAB PO SCH ×3 (08:44→21:03)
[2023-02-15] MEDS: PROPRANOLOL HCL 10 MG TAB PO SCH ×3 (08:45→21:11)
[2023-02-15] MEDS ORDERED: FUROSEMIDE 20 MG TAB PO SCH (17:00)
[2023-02-15] MEDS: ATORVASTATIN 10 MG TAB PO SCH (21:03)
[2023-02-15] MEDS: ACETAMINOPHEN 325 MG TAB PO PRN (21:53)
[2023-02-16] MEDS: ACETAMINOPHEN 325 MG TAB PO PRN (01:54)
[2023-02-16] MEDS: LEVOTHYROXINE SODIUM 75 MCG TABLET PO SCH (05:47)
[2023-02-16 06:20] LABS: Basophils # (auto) 0.02 K/uL (0-0.2); Basophils % (auto) 0.5 %; Eosinophils # (auto) 0.14 K/uL (0-0.50); Eosinophils % (auto) 3.8 %; Hematocrit (blood only) 34.8 % (37.0-47.0); Immature Granulocytes # (auto) 0.01 K/uL (0.01-0.20); Immature Granulocytes % (auto) 0.3 %; Lymphocytes # (auto) 1.41 K/uL (1.2-3.4); Mean Corpuscular Hgb Conc 31.6 g/dL (32.0-36.0); Mean Platelet Volume 10.6 fL (9.4-12.4); Monocytes # (auto) 0.51 K/uL (0.11-0.59); Monocytes % (auto) 13.7 %; Neutrophils # (auto) 1.62 K/uL (1.40-6.50); Neutrophils % (auto) 43.7 %; Platelet Count 68 K/uL (130-400); RDW Coefficient of Variation 15.2 % (11.5-14.5); RDW Standard Deviation 54.7 fL (36.4-46.3); Red Blood Count 3.55 M/uL (4.20-5.40); White Blood Count 3.71 K/ul (4.8-10.8)
[2023-02-16 06:29] LABS: Albumin Globulin Ratio 0.5 (0.9-2); Albumin Level 2.4 gm/dl (3.4-5.0); BUN Creatinine Ratio 30.7 (10-20); Bilirubin,Total 0.7 mg/dl (0.2-1.0); Calcium 8.7 mg/dl (8.6-10.3); Creatinine Clr Calc Pharmacy 32.7 ml/min; Est GFR (Non-African American) 32.8 ml/min; Globulin 4.4 gm/dl (2.5-4.0); Magnesium 1.5 mg/dl (1.7-2.4); Potassium 5.1 mmol/L (3.5-5.1); Total Protein 6.8 gm/dl (6.0-8.3)
--- NOTE | 2023-02-16 07:14 | Hospitalist Progress Note ---
Date of Service February 16, 2023 Assessment & Plan (1) Hyperammonemia: (2) Generalized weakness: (3) 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 to alcohol: (4) Chronic kidney disease, stage III (moderate): (5) Chronic diastolic heart failure: (6) Diabetes mellitus with peripheral vascular disease: (7) Hypomagnesemia: Plan 77 y/o F presented with weakness which began at around 3 AM. She has had nausea and vomiting, lightheadedness, and dizziness. Family notes slurred speech on admission #Generalized weakness with slurred speech: - stroke work up neg. - sec to hyperammonemia/hypomag/less likely deconditioning - Improving - Awaiting updated assessment from PT/OT #Hyperammonemia: - Ammonia level 181 on 02/14; 129 on 02/15 - Continue Lactulose - has been compliant with doses. -Not able to tolerate higher doses in past. - Continue Rifaximin - Recheck ammonia in AM #Cirrhosis: - Continue propranolol, spironolactone, lactulose, pepcid #Hypomag - On daily supplement 64mgs tid. Likely from diuretics. - Magnesium 1.8 02/15 - recheck Mag AM #Chronic diastolic heart failure - Furosemide put on hold on admission. - To avoid fluid overload- IVF discontinued 02/14 - Lasix resumed 02/15 #A-Fib: - EKG: sinus rhythm with PVCs, QTc 512 - Telemetry monitoring - Continue Eliquis 2.5mg BID #DM: - sliding scale insulin ordered, goal BSG 100-140 #CKD III: - Creatinine 1.42 on 02/15, at baseline d/c IVF Apixaban Carb consistent diet DNR PT/OT Admission and Anticipated Discharge Date Admission Date: February 14, 2023 Results & Data Results & Data Vital Signs (Past 12 Hours) Vital Signs Temp Pulse Pulse Resp BP BP Pulse Ox 02/16/23 03:00 36.5 C 57 L 20 151/79 H 95 02/15/23 23:12 61 02/15/23 22:00 36.4 C L 64 20 113/71 98 02/15/23 22:14 O2 Del Method 02/16/23 03:00 Room Air 02/15/23 23:12 02/15/23 22:00 Room Air 02/15/23 22:14 Room Air
[2023-02-16] MEDS: PANTOprazole 40 MG TAB PO SCH (07:54)
[2023-02-16] MEDS: SPIRONOLACTONE 25 MG TAB PO SCH (07:54)
[2023-02-16] MEDS: MAGNESIUM CHLORIDE W/CALCIUM 64MG DELAYED REL TAB PO SCH ×2 (07:55→13:26)
[2023-02-16] MEDS: PROPRANOLOL HCL 10 MG TAB PO SCH ×2 (07:55→13:26)
[2023-02-16] MEDS: APIXABAN 2.5 MG TAB PO SCH (07:55)
[2023-02-16] MEDS: rifAXIMin 550 MG TABLET PO SCH (07:55)
[2023-02-16] MEDS: LACTULOSE SYRUP 30 GM/45 ML UDP PO SCH (07:56)
[2023-02-16] MEDS: INSULIN ASPART PER UNIT CHARGE SC SCH ×2 (07:59→12:13)
[2023-02-16] MEDS ORDERED: FUROSEMIDE 40 MG TAB PO SCH (09:00)
--- NOTE | 2023-02-16 13:08 | Discharge Summary ---
Date of Service February 16, 2023 Admission HPI Per Admitting Provider Rose Mary presents to the emergency department with weakness which began at around 3 AM. She has had nausea and vomiting, lightheadedness, and dizziness. Family notes slurred speech on admission. CTAs were deferred in ER due to CKD. At bedside assessment family reports that Rose Mary appears Seen at bedside with family. Last week muchmore nauseus in the mornings daily with dry heaves. Last night seemed worse than normal and rose mary was much more weak than usual. Denies focal weakness. Rose Mary and daughter reports she intermittent has slurred speech when tired and this was present this morning as well. She has been taking lactulose and going 3x per day at home. Has some low pelvic pelvic pain, feels 'not much, better than before just sore from dry heaving.' Weakness and speech feels similar to when she has been tired/low mag before. No chest pain, no chest pressure No Fevers L leg is a little swollen at baseline, no change per pt Latulose makes BMs runny, no change in this No vision change No dysuria/polyuria Eating and drinking normally th elast few days Creatinine is approximately 1.451.6 at baseline, admitting creatinine 1.5 BSG 140 Magnesium 1.4 UA uninfected appearing Platelet baseline [id number]. Admitting platelet 80 Medical History: Reviewed Medications: Reviewed Surgical History: Reviewed Family history: Reviewed Allergies: Reviewed Social History: Reviewed Code Status: DNR Admission Exam Per Admitting Provider General: A&Ox3. NAD. Cooperative. HEENT: Atraumatic, normocephalic. Vision/hearing grossly intact Pulm: CTAB A&P. -wheezes, -rales, -rhonchi. Symmetrical chest rise. No increased work of breathing. No respiratory distress. Cardiac: RRR, -mrg. Radial pulses intact and symmetrical. Abdominal: mild ttp in epigastrum, soft, no rebound, nondistended CRANIAL NERVES: II: Pupils equal and reactive, no relative afferent pupillary defect, no VF cuts III, IV, : EOM intact, no gaze preference or deviation, no nystagmus. V: normal sensation in V1, V2, and V3 segments bilaterally VII: no asymmetry, no nasolabial fold flattening VIII: normal hearing to speech IX, X: normal palatal elevation, no uvular deviation XI: 5/5 head turn and 5/5 shoulder shrug bilaterally XII: midline tongue protrusion MOTOR: RUE: 4-/5 Shoulder internal rotation, externa l rotation, flexion, extension, ab duction, adduction 4-/5 Elbow flexion/extension, wrist flex ion/extension 4-/5 director of psychology strength, finger flexion/exten tashi, interosseus LUE: 4-/5 Shoulder internal rotation, externa l rotation, flexion, extension, abduction, adduction 4-/5 Elbow flexion/extension, wrist flex ion/extension 4-/5 director of psychology strength, finger flexion/exten tashi, interosseus RLE: 4-/5 to hip flexion, ankle dorsiflexion/ plantarflexion LLE: 4-/5 to hip flexion, ankle dorsiflexion/ plantarflexion SENSORY: Normal to touch in upper and lower extremities without deficit or asymmetry Principal Diagnosis Generalized Weakness Discharge Exam Constitutional WD/WN, vitals as above no acute distress Respiratory normal respiratory effort, lungs clear to auscultation Cardiovascular Rate/Rhythm: regular rate and regular rhythm +systolic ejection murmur Gastrointestinal (Abdomen) bowel sounds intact, non-tender to palpation Musculoskeletal 5/5 strength in upper extremities, 4-/5 strength in lower extremities Skin no rashes, warm and dry Neurologic AOx4, speech intact, no focal neurologic deficits Discharge Data Allergies Allergy/AdvReac Type Severity Reaction Status Date / Time No Known Allergies Allergy Verified 02/14/23 08:48 Ordered Studies 02/14/23 04:36 CT head/brain wo con Stat 02/14/23 05:41 CT Abd and Pelvis [CT abd pelvis wo con] Stat 02/14/23 09:37 MR brain wo con Urgent MRI Angio Brain [MR angio head wo con] Routine US carotid doppler BI Routine Hospital Course (1) Hyperammonemia: 77 y/o F initially presented with weakness, nausea and vomiting, lightheadedness, and dizziness. Family noted slurred speech at the time of admission. Imaging workup was negative. Lab work up was significant for elevated ammonia and low magnesium. During hospitalization, patient was started on Rifaximin 550mg BID. Over the course of hospitalization, patient's ammonia level trended downward, she became stronger, and her speech clarity improved. #Generalized weakness with slurred speech: - stroke work up was negative - Weakness was likely secondary to hyperammonemia in conjunction with hypomagnesemia - Improved over the course of hospitalization - PT and OT evaluated patient during hospital stay, patient discharged with home health PT and OT #Hyperammonemia: - Ammonia level decreased over the course of hospitalization: 181, 129, 103 - Rifaximin started during hospitalization. Patient discharged on Rifaximin 550 mg BID - Continue Lactulose at current dose - Has not been able to tolerate increased dose of lactulose in the past. - Follow up with outpatient GI #Cirrhosis: - Continue propranolol, spironolactone, lactulose, pepcid - Follow up with outpatient GI #Hypomagnesemia - Mag 1.4 at time of admission, repleted - Continue Mag Cl 128mgs tid #Chronic diastolic heart failure - Furosemide held on admission for concern of hypovolemia -Received IVF. - Continue Lasix #CKD III: - Creatinine 1.42 on 02/15, baseline (2) Generalized weakness: (3) 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 to alcohol: (4) Chronic kidney disease, stage III (moderate): (5) Chronic diastolic heart failure: (6) Diabetes mellitus with peripheral vascular disease: (7) Hypomagnesemia: Total Time Total Time Spent Total Time Spent (In Minutes): see attending attestation Discharge Plan Discharge Items Patient Disposition: Home - Home Health Services Reason For Visit: WEAKNESS, HYPOMAGNESMIA Discharge Diagnosis: Generalized Weakness, Hypomagnesemia, Hyperammonemia Activity: Resume your previous activity Non-emergency contact: Primary Care Provider Call non-emergency contact if: you have any medication questions and your sympto ms worsen Follow-up/Referrals: Jian Pierce, [Primary Care Provider] - Diet: Carb Consistent or DM2 Addtl Attending Provider Instructions: You were admitted due to generalized weakness, nausea, and vomiting. During your hospital stay, lab workup showed elevated ammonia levels and low magnesium, which likely explains the symptoms you were experiencing. To address this, we added Rifaximin, a medication that helps lower ammonia levels. Upon discharge, take Rifaximin 550mg twice daily in addition to Lactulose twice daily. I also recommend that you have outpatient follow up with GI for ongoing cirrhosis management. Lastly, continue home health physical therapy and occupational therapy as directed. Pending Studies at Discharge: No Stand-Alone Forms: My [facility] [employer], Smoking Cessation Medications and DC Order Prescriptions: New Xifaxan 550 mg Tablet 550 mg PO BID 30 Days Qty: 60 3RF Continued levothyroxine 75 mcg tablet 75 mcg PO DAILY Qty: 90 3RF lactulose 10 gram/15 mL solution 30 g PO BID 90 Days Qty: 8100 5RF pantoprazole 40 mg tablet,delayed release (DR/EC) 40 mg PO BID Qty: 180 3RF Eliquis 2.5 mg tablet 2.5 mg PO BID Qty: 60 11RF propranolol 10 mg tablet 10 mg PO TID 90 Days Qty: 270 3RF coenzyme Q10 200 mg capsule 200 mg PO DAILY atorvastatin 10 mg tablet 10 mg PO HS Qty: 90 3RF magnesium chloride 64 mg tablet,delayed release (DR/EC) 128 mg PO TID Qty: 540 3RF spironolactone 25 mg tablet 25 mg PO DAILY Qty: 90 3RF Hold Instructions: high K cholecalciferol (vitamin D3) [Vitamin D3] 2,000 unit Capsule 2,000 unit PO QAM multivitamin Tablet 1 tab PO QAM vitamin E 400 unit capsule 400 unit PO QAM furosemide 40 mg tablet 40 mg PO QAM furosemide 40 mg tablet 20 mg PO QPM Discharge Orders: Discharge Order (Routine); Ordered 02/16/23 Ordered By: Ja Singh Admission Data Admit Date/Time: 02/14/23 06:56 Attending Provider: Alicja Vang Admit Provider: Dalton Yañez Primary Care Provider: Jian Pierce Other Providers: [facility],Home Healthcare Other Interventions: Discharge Summary Assessment (RN) Last Done: 02/16/23 15:58 Supervising Physician Co-Signing Physician Notes Resident Physician Supervision Note: I independently interviewed and examined the patient and verified the almanzar history and physical, reviewed labs and image studies and agree with resident findings and care plan. Home Health Attestation I certify that this patient is under my care and that I, or a physicians home health assistant working with me, had a face to-face encounter that meets the home health [id number] encounter requirements with this patient. The encounter with the patient was in whole, or in part, for the following medical condition, which is the primary reason for home health care (list medical condition): weakness; resumption of care I certify that, based on my findings, the following services are medically necessary home health services: Home Safety Assessment OT Assess ADL Status and Restore Function w ADLs PT Assessment for Endurance / Balance / Strength PT Eval for Safety and Mobility PT Eval for Safety, Gait Training, Assistive Devices PT Gait and Balance Training, Strengthening and Safety Safety My clinical findings support the need for the above services because:pt demonstrated improvement over the course of hospitalization with PT/OT, utilization of resources following discharge will help patient maintain mobility and prevent deconditioning Further, I certify that my clinical findings support that this patient is homebound (i.e. absences from home require considerable and taxing effort and are for medical reasons or [facility] or infrequently or of short duration when for other reasons) because: Transportation Assistance/Unable to Leave Home Unassisted Certification for Home Health Services: Based on the above findings, I certify that this patient is confined to the home and needs intermittent penitentiary care, physical therapy and/or speech therapy or continues to need occupational therapy. The patient is under my care, and I have initiated the establishment of the plan of care. This patient will be followed by a physician who will periodically review the plan of care. Resident Activity Tracking Resident Involvement: Resident Care Provided Care Provided: Adult [facility]
== END 2023-02-16 16:20 | disposition home health service (06) | DRG 642 ==
LOC: ED 04:13 → SUATTDRO 06:56 → 2N 06:56

== ENCOUNTER 2023-03-21 06:02 | Inpatient (IN) ==
[2023-03-21 06:34] LABS: Basophils # (auto) 0.02 K/uL (0.00-0.20); Basophils % (auto) 0.6 %; Eosinophils # (auto) 0.13 K/uL (0.00-0.50); Eosinophils % (auto) 3.7 %; Hematocrit (blood only) 35.4 % (37.0-47.0); Hemoglobin 11.5 g/dl (12.0-16.0); Lymphocytes # (auto) 1.14 K/uL (1.20-3.40); Lymphocytes % (auto) 32.6 %; Mean Corpuscular Hemoglobin 31.7 pg (25.0-34.0); Mean Corpuscular Hgb Conc 32.5 g/dL (32.0-36.0); Mean Corpuscular Volume 97.5 fL (80.0-100.0); Mean Platelet Volume 10.4 fL (9.4-12.4); Monocytes # (auto) 0.38 K/uL (0.11-0.59); Monocytes % (auto) 10.9 %; Neutrophils # (auto) 1.83 K/uL (1.40-6.50); Neutrophils % (auto) 52.2 %; Platelet Count 100 K/uL (130-400); RDW Coefficient of Variation 14.1 % (11.5-14.5); RDW Standard Deviation 50.5 fL (36.4-46.3); Red Blood Count 3.63 M/uL (4.20-5.40)
[2023-03-21 06:42] LABS: INR 1.2 (0.9-1.1)
--- NOTE | 2023-03-21 06:50 | XRay Report ---
XR chest 1V portable CLINICAL HISTORY: Chest pain, nonspecific COMPARISON STUDY: Chest radiograph February 14, 2023. Chest CT November 22, 2022. FINDINGS: No pneumothorax or pleural effusion is present. Moderate cardiomegaly is unchanged. There i s no evidence for pulmonary edema. There is no consolidation to suggest pneumonia. Minimal linear lef t basilar opacity favors atelectasis or scarring. IMPRESSION: No acute cardiopulmonary findings. Cardiomegaly. ACT 112: Negative or not required by law. Electronically signed by: Eris Friedman M.D. 03/21/2023 6:49 AM
[2023-03-21 06:52] LABS: Albumin Globulin Ratio 0.6 (0.9-2); Albumin Level 2.6 gm/dl (3.4-5.0); BUN Creatinine Ratio 31.1 (10-20); Bilirubin,Total 0.8 mg/dl (0.2-1.0); Calcium 8.2 mg/dl (8.6-10.3); Creatinine Clr Calc Pharmacy 31.1 ml/min; Est GFR (African American) 34.9 ml/min; Est GFR (Non-African American) 30.1 ml/min; Globulin 4.4 gm/dl (2.5-4.0); Magnesium 1.4 mg/dl (1.7-2.4); Potassium 4.1 mmol/L (3.5-5.1)
--- NOTE | 2023-03-21 06:56 | Emergency Department Note ---
Impression & Plan Generalized weakness, Hypomagnesemia, Nausea & vomiting, Hyperammonemia, Acute hepatic encephalopathy ED Provider Note ED Provider Note NAME: JEFFREY TOVAR AGE:77 SEX: Female : 1945 ARRIVES VIA: EMS INFORMANT: Patient, family ED PROVIDER(s): Cierra Jolley DO CHIEF COMPLAINT: Weakness, nausea vomiting HPI: This is a 77-year-old female who presents emergency department due to concern for nausea, vomiting, increased weakness that began overnight around 4 AM. Family and patient states this is similar to prior episodes that have ultimately been determined to be from either low magnesium or liver problems. Patient does have a history of liver problems and does take lactulose daily per family. No concern for foodborne illness, no known sick contacts, no other family members are sick in the household, no recent change in medications. Family also states they did notice that there was an extra dose of her evening medications missing. Patient swears she did not take any extra medications but family is unsure. Patient denies any abdominal pain, diarrhea, change in urine, headaches, chest pain, palpitations, or shortness of breath. No recent trauma. Patient does use anticoagulation due to history of A-fib. PAST MEDICAL HISTORY:See Below PAST SURGICAL HISTORY:See Below FAMILY HISTORY:See Below SOCIAL HISTORY:See Below HOME MEDICATIONS:See Below ALLERGIES:See Below VITALS:See Below PHYSICAL EXAMINATION: GENERAL: alert, well appearing, well nourished, no distress, non-toxic EYE EXAM: normal conjunctiva, PERRL and EOM's grossly intact OROPHARYNX: no exudate, no erythema, lips, buccal mucosa, and tongue normal and mucous membranes are moist NECK: supple, no nuchal rigidity, no adenopathy, non-tender LUNGS: Clear to auscultation. Normal chest wall mechanics, no w/r/r HEART: no murmurs, S1 normal and S2 normal ABDOMEN: abdomen soft, non-tender, normo-active bowel sounds, no masses, no rebound or guarding. BACK: Back is symmetrical on inspection and there is no deformity, no midline tenderness, no CVA tenderness. SKIN: no rashes, petechiae, orbruising UPPER EXTREMITIES: upper extremities are grossly normal. FROM, nml pulses b/l. LOWER EXTREMITIES: No pitting edema. FROM, nml pulses b/l. NEURO EXAM: Normal sensorium, cranial nerves II-XII grossly intact, normal speech, no facial droop,nogross weakness of arms, no gross weakness of legs. Gross sensation intact. No ataxia. Vital Signs: reviewed and remarkable Differential Diagnosis: Acute viral syndrome, medication ADR, dehydration, EMY, electrolyte abnormality, colitis, bowel obstruction, ACS, CVA, ICH, as well as others were considered MEDICAL DECISION MAKING: This is a 77-year-old female with complicated past medical history who presents with family bedside due to concern for nausea, vomiting, weakness, and i ntermittent confusion noted by family this morning. Patient afebrile and vital signs stable. Labs drawn and sent, IV established, EKG and x-ray performed at bedside interpreted by me patient monitored on telemetry. Labs revealed hypomagnesemia, as well as significantly elevated ammonia level. Patient has had similar episodes previously due to her history of cirrhosis. Patient's nausea vomiting did improve and she was started on gentle IV fluid hydration. Family denies she has missed any doses of her lactulose or rifaximin recently. Patient's urine also noted to be abnormal she does have a history of UTIs. After review of cultures, IV Rocephin was added as a precaution. While this was a suboptimal specimen with greater than 30 epithelial cells, patient is at increased risk. At this time I do not suspect pyelonephritis, obstructive uropathy, or bacteremia/sepsis. Creatinine elevated but stable compared to prior. Consultation(s): 0835: Discussed with Dr. Ibarra, [facility] hospitalist team. ER Treatment Provided: See below Diagnostics Interpreted By Me: -ECG: Normal sinus at 64, leftward axis, right bundle branch block, nonspecific ST/T wave changes -Cardiac Monitoring: An order was placed for continuous cardiac monitoring. The monitor shows a rate of 66 with normal sinus rhythm. -Laboratory studies: As stated above and show below. -Imaging studies: X-ray Chest: A single view study of the chest was reviewed and was negative for cardiomegaly, focal infiltrate, effusion, pulmonary edema, or wide mediastinum. Triage Nursing Note Reviewed Prior/Outside Records Reviewed prior discharge summary reviewed Past Med/Surg History Medical History Acute hyperkalemia Acute on chronic diastolic heart failure EMY (acute kidney injury) Chronic deep vein thrombosis (DVT) Cough Diverticular hemorrhage resolved Dizziness DVT (deep venous thrombosis) Elevated troponin Encephalopathy acute Esophageal varices determined by endoscopy Fever Generalized weakness GERD (gastroesophageal reflux disease) GI bleed none at present Hepatic encephalopathy Hypomagnesemia Lactate blood increase Migraine Monoclonal gammopathy Nausea & vomiting Nausea vomiting and diarrhea Osteoarthritis Presence of IVC filter Pulmonary embolism 2019 > no known cause > Filter to right groin Rhinovirus Stage 3b chronic kidney disease Thrombocytopenia Vertigo Volume overload Vomiting and diarrhea Weakness Wheezing Surgical History History of bilateral breast reduction surgery History of bilateral cataract extraction History of carpal tunnel release of both wrists History of section x3 History of colonoscopy History of dilatation and curettage History of esophagogastroduodenoscopy (EGD) History of laparoscopic cholecystectomy History of lumbar spinal fusion hardware in place History of tonsillectomy History of tooth extraction all teeth History of total left knee replacement (TKR) History of total right knee replacement (TKR) Family History Mother Family history of diabetes mellitus Brother Family history of diabetes mellitus 3 brothers Colorectal cancer Myocardial infarction x 2 Father Myocardial infarction Denies family history of Ovarian cancer Prostate cancer Breast cancer Social History Smoking Status: Former smoker Tobacco Type: Cigarettes Age Started Using Tobacco: 15; Age Quit Using Tobacco: 21; Cigarettes Per Day: stopped 55 years ago; Second Hand Exposure: No; Do You Dip or Chew Tobacco: No; Hx Alcohol Use: No Hx Substance Use: No Preferred Language: Mozambican Communication Ability: Effective Visual Impairment: Limited Hearing Ability: Normal 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: No Beliefs That Will Affect Care: None marital status: / Current Living Situation: Family Current Living Situation Comment: lives with niece current occupational status: retired How many Children do You have: 3 Other Information That Helps Us Care for You: No Feels Safe at Home: Yes Safety Concerns: Feels Safe At This Time Childhood Exposure to Second-Hand Smoke: Yes Diet: regular caffeine: Yes (tea) during the past year weight has: remained stable Dental Care, Regularly: No Physical Activity Frequency: Does not Exercise Seatbelt Use: always Sunscreen Use: No Do you think of yourself as: straight/heterosexual Gender Identity: Female Assistive Devices: None, Denture - Upper, Denture - Lower, Glasses and Walker Allergies Allergies Allergy/AdvReac Type Severity Reaction Status Date / Time No Known Allergies Allergy Verified 03/16/23 08:31 Home Meds Home Medications Medication Instructions Recorded Confirmed cholecalciferol (vitamin D3) 50 2,000 unit PO QAM 07/01/18 03/21/23 mcg (2,000 unit) capsule (Vitamin D3) multivitamin 1 tab PO QAM 10/14/19 03/21/23 vitamin E 268 mg (400 unit) capsule 400 unit PO QAM 08/14/20 03/21/23 coenzyme Q10 200 mg capsule 200 mg PO DAILY 11/01/21 03/21/23 furosemide 40 mg tablet 40 mg PO QAM 11/21/22 03/21/23 furosemide 40 mg tablet 20 mg PO QDL 12/28/22 03/21/23 Previous Rx's Medication Instructions Recorded atorvastatin 10 mg tablet 10 mg PO HS #90 tabs 09/08/22 magnesium chloride 64 mg 128 mg PO TID #540 tabs 09/08/22 (magnesium chloride) tablet,delayed release spironolactone 25 mg tablet 25 mg PO DAILY #90 tabs 12/06/22 propranolol 10 mg tablet 10 mg PO TID 90 days #270 tabs 01/23/23 lactulose 10 gram/15 mL oral 30 g (45 mL) PO BID 90 days #8,100 01/30/23 solution mL pantoprazole 40 mg tablet,delayed 40 mg PO BID #180 tabs 02/07/23 release apixaban 2.5 mg tablet (Eliquis) 2.5 mg PO BID #60 tabs 02/13/23 rifaximin 550 mg tablet (Xifaxan) 550 mg PO BID 30 days #60 tabs 02/16/23 levothyroxine 75 mcg tablet 75 mcg PO DAILY #90 tabs 03/01/23 Results & Data (ED) Vital Signs Vital Signs - 24 hr 03/21/23 06:06 03/21/23 06:19 03/21/23 06:10 Temperature 36.5 C Temperature Source Oral Pulse Rate 69 64 Pulse Rate [Apical] Pulse Rhythm [Apical] Respiratory Rate 20 Respiratory Effort / Characteristics Non-Labored Spontaneous Respiratory Depth Normal Respiratory Pattern Blood Pressure 159/69 H Blood Pressure [Right Arm] Blood Pressure Mean 99 Blood Pressure Mean [Right Arm] Pulse Oximetry 97 97 Oxygen Delivery Method Room Air Room Air Sepsis New/Unexplained Change in Mental Status N/A Sepsis Action Taken by Nursing No Action Required 03/21/23 06:30 03/21/23 08:00 Temperature Temperature Source Pulse Rate Pulse Rate [Apical] 63 79 Pulse Rhythm [Apical] Regular Respiratory Rate 20 20 Respiratory Effort / Characteristics Non-Labored Spontaneous Non-Labored Spontaneous Respiratory Depth Normal Normal Respiratory Pattern Regular Blood Pressure Blood Pressure [Right Arm] 153/113 H 192/154 H Blood Pressure Mean Blood Pressure Mean [Right Arm] 126 166 Pulse Oximetry 97 96 Oxygen Delivery Method Room Air Room Air Sepsis New/Unexplained Change in Mental Status Sepsis Action Taken by Nursing Laboratory Data 03/21/23 06:10 03/21/23 06:10 Lab Results 03/21/23 03/21/23 03/21/23 Range/Units 06:10 06:10 06:10 WBC 3.50 L (4.8-10.8) K/ul RBC 3.63 L (4.20-5.40) M/uL Hgb 11.5 L (12.0-16.0) g/dl Hct 35.4 L (37.0-47.0) % MCV 97.5 (80.0-100.0) fL MCH 31.7 (25.0-34.0) pg MCHC 32.5 (32.0-36.0) g/dL RDW Std Deviation 50.5 H (36.4-46.3) fL RDW Coeff of Leah 14.1 (11.5-14.5) % Plt Count 100 L (130-400) K/uL MPV 10.4 (9.4-12.4) fL Immature Gran % (Auto) 0.0 % Neut % (Auto) 52.2 % Lymph % (Auto) 32.6 % [place] % (Auto) 10.9 % Eos % (Auto) 3.7 % Baso % (Auto) 0.6 % Neut # (Auto) 1.83 (1.40-6.50) K/uL Lymph # (Auto) 1.14 L (1.20-3.40) K/uL [place] # (Auto) 0.38 (0.11-0.59) K/uL Eos # (Auto) 0.13 (0.00-0.50) K/uL Baso # (Auto) 0.02 (0.00-0.20) K/uL Immature Gran # (Auto) 0.00 L (0.01-0.20) K/uL PT 13.0 H (9.0-12.0) Seconds INR 1.2 H (0.9-1.1) Sodium 140 (136-145) mmol/L Potassium 4.1 (3.5-5.1) mmol/L Chloride 111 H (98-107) mmol/L Carbon Dioxide 22 (21-32) mmol/L Anion Gap 7 (3-11) BUN 50 H (6-23) mg/dl Creatinine 1.61 H (0.6-1.2) mg/dl Est Cr Clr Drug Dosing 31.1 ml/min Est GFR ( Amer) 34.9 ml/min Est GFR (Non-Af Amer) 30.1 ml/min BUN/Creatinine Ratio 31.1 H (10-20) Glucose 150 H (70-99(Fasting)) mg/dl Calcium 8.2 L (8.6-10.3) mg/dl Magnesium 1.4 L (1.7-2.4) mg/dl Total Bilirubin 0.8 (0.2-1.0) mg/dl AST 37 (13-39) U/L ALT 24 (7-52) U/L Alkaline Phosphatase 105 H (34-104) U/L Ammonia (18-72) umol/L Troponin I High Sens 11.6 (0-14) pg/ml Total Protein 7.0 (6.0-8.3) gm/dl Albumin 2.6 L (3.4-5.0) gm/dl Globulin 4.4 H (2.5-4.0) gm/dl Albumin/Globulin Ratio 0.6 L (0.9-2) Lipase 54 (11-82) U/L Urine Color Urine Appearance (Clear) Urine pH (4.5-7.5) Ur Specific [place] (1.000-1.030) Urine Protein (Negative) Urine Glucose (UA) (Negative) Urine Ketones (Negative) Urine Blood (Negative) Urine Nitrite (Negative) Urine Bilirubin (Negative) Urine Urobilinogen (Negative) Ur Leukocyte Esterase (Negative) Urine WBC (Auto) (0-5) /hpf Urine RBC (Auto) (0-4) /hpf U Hyaline Cast (Auto) (0-5) /lpf U Epithel Cells (Auto) (0-5) /lpf Urine Bacteria (Auto) (Negative) Urine Yeast 03/21/23 03/21/23 Range/Units 07:20 08:43 WBC (4.8-10.8) K/ul RBC (4.20-5.40) M/uL Hgb (12.0-16.0) g/dl Hct (37.0-47.0) % MCV (80.0-100.0) fL MCH (25.0-34.0) pg MCHC (32.0-36.0) g/dL RDW Std Deviation (36.4-46.3) fL RDW Coeff of Leah (11.5-14.5) % Plt Count (130-400) K/uL MPV (9.4-12.4) fL Immature Gran % (Auto) % Neut % (Auto) % Lymph % (Auto) % [place] % (Auto) % Eos % (Auto) % Baso % (Auto) % Neut # (Auto) (1.40-6.50) K/uL Lymph # (Auto) (1.20-3.40) K/uL [place] # (Auto) (0.11-0.59) K/uL Eos # (Auto) (0.00-0.50) K/uL Baso # (Auto) (0.00-0.20) K/uL Immature Gran # (Auto) (0.01-0.20) K/uL PT (9.0-12.0) Seconds INR (0.9-1.1) Sodium (136-145) mmol/L Potassium (3.5-5.1) mmol/L Chloride (98-107) mmol/L Carbon Dioxide (21-32) mmol/L Anion Gap (3-11) BUN (6-23) mg/dl Creatinine (0.6-1.2) mg/dl Est Cr Clr Drug Dosing ml/min Est GFR ( Amer) ml/min Est GFR (Non-Af Amer) ml/min BUN/Creatinine Ratio (10-20) Glucose (70-99(Fasting)) mg/dl Calcium (8.6-10.3) mg/dl Magnesium (1.7-2.4) mg/dl Total Bilirubin (0.2-1.0) mg/dl AST (13-39) U/L ALT (7-52) U/L Alkaline Phosphatase (34-104) U/L Ammonia 245.0 H (18-72) umol/L Troponin I High Sens (0-14) pg/ml Total Protein (6.0-8.3) gm/dl Albumin (3.4-5.0) gm/dl Globulin (2.5-4.0) gm/dl Albumin/Globulin Ratio (0.9-2) Lipase (11-82) U/L Urine Color Yellow Urine Appearance Cloudy A (Clear) Urine pH 5.5 (4.5-7.5) Ur Specific [place] 1.013 (1.000-1.030) Urine Protein 1+ H (Negative) Urine Glucose (UA) Negative (Negative) Urine Ketones Negative (Negative) Urine Blood 1+ H (Negative) Urine Nitrite Negative (Negative) Urine Bilirubin Negative (Negative) Urine Urobilinogen Negative (Negative) Ur Leukocyte Esterase 2+ H (Negative) Urine WBC (Auto) >30 H (0-5) /hpf Urine RBC (Auto) 0-4 (0-4) /hpf U Hyaline Cast (Auto) 1-5 (0-5) /lpf U Epithel Cells (Auto) >30 H (0-5) /lpf Urine Bacteria (Auto) 2+ H (Negative) Urine Yeast Not Reportable Administered Medications Doxycycline Hyclate (Doxycycline Hyclate 100 Mg Cap) 100 mg PO BID ARMANDO Stop: 03/31/23 13:59 Last Admin: 03/21/23 15:18 Dose: Not Given Documented By: KIERSTEN Furosemide (Furosemide 20 Mg Tab) 20 mg PO QDL ARMANDO Stop: 04/20/23 12:14 Last Admin: 03/21/23 12:48 Dose: 20 mg Documented By: KIERSTEN Ceftriaxone Sodium 2,000 mg/ (Dextrose) 70 mls @ 100 mls/hr IV Q24H ARMANDO; Pr otocol Stop: 03/23/23 09:59 Last Infusion: 03/21/23 13:12 Dose: 0 mls/hr Documented By: Admin: 03/21/23 12:25 Dose: 100 mls/hr Documented By: KIERSTEN Lactulose (Lactulose Syrup 30 Gm/45 Ml Udp) 30 gm PO TID ARMANDO Stop: 04/20/23 12:14 Last Admin: 03/21/23 14:54 Dose: Not Given Documented By: Admin: 03/21/23 12:51 Dose: 30 gm Documented By: KIERSTEN Magnesium Chloride (Magnesium Chloride W/Calcium 64mg Delayed Rel Tab) 128 mg PO TID ARMANDO Stop: 04/20/23 13:59 Last Admin: 03/21/23 12:49 Dose: 128 mg Documented By: KIERSTEN Propranolol HCl (Propranolol Hcl 10 Mg Tab) 10 mg PO TID ARMANDO Stop: 04/20/23 11:59 Last Admin: 03/21/23 14:55 Dose: Not Given Documented By: Admin: 03/21/23 12:47 Dose: Not Given Documented By: KIERSTEN Rifaximin (Rifaximin 550 Mg Tablet) 550 mg PO BID ARMANDO Stop: 04/20/23 11:59 Last Admin: 03/21/23 12:51 Dose: 550 mg Documented By: KIERSTEN Discontinued Medications Apixaban (Apixaban 2.5 Mg Tab) 2.5 mg PO ONE ONE Stop: 03/21/23 09:24 Last Admin: 03/21/23 09:58 Dose: 2.5 mg Documented By: MARYANNE Furosemide (Furosemide 40 Mg Tab) 40 mg PO NOW ONE Stop: 03/21/23 09:24 Last Admin: 03/21/23 09:58 Dose: 40 mg Documented By: MARYANNE Magnesium Sulfate/Dextrose (Magnesium Sulfate / D5w) 1 gm in 100 mls @ 100 mls/hr IV Q1H ARMANDO Stop: 03/21/23 09:01 Last Infusion: 03/21/23 09:54 Dose: 0 mls/hr Documented By: Admin: 03/21/23 08:42 Dose: 100 mls/hr Documented By: Infusion: 03/21/23 08:11 Dose: 100 mls/hr Documented By: Admin: 03/21/23 07:11 Dose: 100 mls/hr Documented By: AUREA Sodium Chloride (Nss 1000ml) 1,000 mls @ 125 mls/hr IV .Q8H ARMANDO Stop: 04/20/23 07:14 Last Infusion: 03/21/23 09:39 Dose: 0 mls/hr Documented By: Infusion: 03/21/23 09:15 Dose: 0 mls/hr Documented By: Admin: 03/21/23 07:15 Dose: 125 mls/hr Documented By: AUREA Ceftriaxone Sodium (Rocephin) 2,000 mg in 70 mls @ 140 mls/hr IV NOW STA Stop: 03/21/23 09:53 Last Admin: 03/21/23 09:51 Dose: Not Given Documented By: Pantoprazole Sodium 40 mg/ (Syringe) 10 mls @ 5 mls/min IV BID ARMANDO Stop: 04/20/23 12:14 Last Admin: 03/21/23 13:13 Dose: Not Given Documented By: CRIS Propranolol HCl (Propranolol Hcl 10 Mg Tab) 10 mg PO NOW STA Stop: 03/21/23 09:24 Last Admin: 03/21/23 10:11 Dose: Not Given Documented By: AUREA Spironolactone (Spironolactone 25 Mg Tab) 25 mg PO NOW ONE Stop: 03/21/23 09:24 Last Admin: 03/21/23 09:58 Dose: 25 mg Documented By: Imaging Data Radiologist's Impression: Chest X-Ray 03/21/23 06:03 XR chest 1V portable CLINICAL HISTORY: Chest pain, nonspecific COMPARISON STUDY: Chest radiograph February 14, 2023. Chest CT November 22, 2022. FINDINGS: No pneumothorax or pleural effusion is present. Moderate cardiomegaly is unchanged. There is no evidence for pulmonary edema. There is no co nsolidation to suggest pneumonia. Minimal linear left basilar opacity favors atelectasis or scarring. IMPRESSION: No acute cardiopulmonary findings. Cardiomegaly. ACT 112: Negative or not required by law. Electronically signed by: Eris Friedman M.D. 03/21/2023 6:49 AM Discharge Plan Visit Data Chief Complaint: Altered Mental Status Stated Complaint: Leaning to the left, Slurred Speech, N/V ED Provider: Cierra Jolley Discharge Problem: Generalized weakness, Hypomagnesemia, Nausea & vomiting, Hyperammonemia, Acute hepatic encephalopathy Patient Disposition: Admitted As Inpatient Discharge Instructions Interventions: ED Discharge Assessment Last Done: 03/21/23 10:34
[2023-03-21 06:58] LABS: Troponin I High Sensitivity 11.6 pg/ml (0-14)
[2023-03-21] MEDS: MAGNESIUM SULFATE / D5W 1 GM/100 ML BAG IV SCH ×2 (07:11→08:42)
[2023-03-21] MEDS ORDERED: SODIUM CHLORIDE 0.9% 1000ML 1,000 ML IV SCH (07:15)
--- NOTE | 2023-03-21 08:30 | History & Physical Report ---
Date of Service March 21, 2023 Assessment & Plan (1) Generalized weakness: Plan: Suspect similar to prior admissions w/ low mag/elevated ammonia -- see admission January 2023. MRI imaging negative for acute stroke (noting meningioma/enlargement of pituitary) Admit to med/tele given hx paroxysmal afib, now back on reduced dose eliquis 2.5mg BID Mag IV replacement ordered, monitor on repeat. Continue PO TID replacement as taking at home during this time as well PPI BID recently started given AM vomiting/reflux symptoms and could also be contributing. Consider checking for cdiff given such, denied any abdominal pain on exam. switch to IV BID in case of any further n/v Clear liquid diet ordered, advance as tolerated Antiemetics prn Lactulose 30mg increased to TID (monitor given prior intolerance to such) given ammonia 245 on labs, surprisingly mentation is quite good w/ this elevation DC further IVF, given hx CHF and prevention of volume overload. Starting to get some wheezes on exam, placed on NSS @ 125cc/hr on admission Continue lasix 40mg QAM, 20mg at noon, propranolol 10mg TID, spironolactone 25mg NOW dosing for AM lasix, propranolol, spironolactone NOW as didn't take her AM dosing, BP 192/154 GI consulted for further recs if req, follows [facility] group, last admission started on Rifaximin (reports compliance) Check TSH, scheduled Synthroid for HS as recently instructed to switch given AM vomiting/likely not absorbing such. Given back pain complaints, will check blood cultures (prior + strep bacteremia but has had prior negative blood cultures since that time -- imaging January w/ T8- T0 irregularity, discitis/osteo not excluded) but no fevers at home and will hold off abx. Check UA for additional cause of weakness, Lyme. B12/folate checked earlier this year in September and were not deficient (prior elevated MCV, elevated TSH noted) Monitor labs on repeat (2) Hyperammonemia: Plan: 245 on admission lactulose increased as above continues on rifaximin BID, started last admission. check level in AM (3) Hypomagnesemia: Plan: 1.4, IV replacement ordered. continue PO supplementation. Monitor levels on repeat (4) Hypothyroidism: Plan: Prior TSHs all elevated. Issues w/ n/v in AM, recently told to take in the evening after supper. Continue current dose 75mcg for now/check TSH as above (5) Nausea & vomiting: Plan: chronic issue, occuring in the AM but had increased weakness this morning as above. Recent stroke work up -- see admission January 2023 (6) Chronic diastolic heart failure: Plan: placed on IVF @ 125cc/hr given n/v on admission, trial ice chips/sips went well. Will dc further IVF to prevent overload, clear liquid diet and advance as tolerated resume lasix, first dose now, spironolactone. continue both as taking outpatient for now. checking TSH as above/monitor on tele for afib/elevated rates given hx paroxysmal, consider additional lasix as needed weight 102kg on admission, weight 03/16 was 97.9kg in system (unclear source for such, but 98.9kg on 02/23 as well) ECHO in November w/ severe TR, reduced RV function (appears chronic finding), dilated RV/RA. low normal EF 50%, MR, (at least moderate reported) hx aortic stenosis Monitor I&O, daily weights (7) Chronic kidney disease, stage III (moderate): Plan: BUN/Cr appearing around baseline Renal dose meds/avoid nephrotoxins as able Monitor renal function (8) PAF (paroxysmal atrial fibrillation): Plan: monitor on med/tele given hypomag IV mag replacement as above, monitor mag level on repeat continue mag chloride slow release 2 tablets TID as taking outpatient continue on eliquis 2.5 mg biD (hx GI bleeding, hgb level appears stable, denies bleeding) (9) Type 2 DM with CKD stage 4 and hypertension: Plan: Last A1c 6.0, not on any medications Glu 150 on admission labs Can monitor BSG AC/HS while inpatient, add SSI if needed (10) 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 to alcohol: Plan: noted, following with [facility], consulted as above continue spironolactone, lasix, lactulose, rifaximin as above check AFP as none prior in system for eval monitor repeat ammonia w/ am labs (11) Aortic stenosis: Plan: noted, monitor volume status (12) UTI (urinary tract infection): Plan: UA resulted later, while denies symptoms of frequency/burning, given weakness, decision to start empiric rocephin/monitor urine culture ENSURE BLOOD CULTURES DRAWN PRIOR TO STARTING ABX Plan DVT proph: Eliquis 2.5mg BID PT/OT consults to be undertaken Hopefully will be able to discharge in next 24-48 hours as patient would like to go home as soon as possible. History of Present Illness Chief Complaint: weakness, nausea, vomiting Primary Care Provider: Jian Pierce, DO 77yo female presented with CC weakness, nausea, vomiting and suspicion for low mag/liver problems given similar presentations with such in the past. Per ER, seemed well overnight but then nauseated, vomiting, fatigued, and a little more confused this morning and daughter suspected either something with her magnesium or ammonia/liver problems. PMHx significant for CHF, Cirrhosis, CKD III, GERD, PE (IVC filter in place), GI bleeding, afib, strep bacteremia in July 2022 (completed 6 weeks IV Rocephin, several blood cultures since that time negative). Evaluated in A2, daughter at bedside. Daughter reports patient had been using the bathroom but was too weak to get up and her sons boyfriend brought back the computer chair to help get her from the bathroom back to the living room. Trial ice chips/sips, no vomiting reported. Denied overt abdominal pain. She reports taking her synthroid in the morning in the past but with AM vomiting not sure how much absorption she is getting. They note that Dr Pierce has advised them to have Ms Dudley take this medication in the evening about an hour after she has eaten/finished her medications to see if improvement in absorption given chronic elevation in TSH. Per daughter, had been stopped on her Pepcid and put on a new medication -- review of medication list w/ protonix twice daily now. She is on mag-chloride 2 tablets three times a day for low magnesium and also on lactulose 30g BID for elevated ammonia. Had been restarted on her eliquis, reduced to 2.5mg BID. Denied any blood in stools. Reports she is not having any chest pain or shortness of breath, no urinary symptoms reported or fever/chills. Of note, she does endorse history of back surgery and chronic back pain but typically gets around alright with a walker. Discussed admission for mag replacement/treatment of ammonia and therapy evaluations. She is not thrilled about being in the hospital and would like to be home in her own bed. Discussed hopefully will be able to get her in/out as quickly as possible. Confirmed she is a DNR/DNI. ER Course; ammonia 245, mag 1.4. IV replacement for magnesium. UA pending CXR w/o acute finding, cardiomegaly noted. Allergies Allergy/AdvReac Type Severity Reaction Status Date / Time No Known Allergies Allergy Verified 03/16/23 08:31 Home Medications Medication Instructions Recorded Confirmed Type cholecalciferol (vitamin D3) 50 2,000 unit PO QAM 07/01/18 03/21/23 History mcg (2,000 unit) capsule (Vitamin D3) multivitamin 1 tab PO QAM 10/14/19 03/21/23 History vitamin E 268 mg (400 unit) capsule 400 unit PO QAM 08/14/20 03/21/23 History coenzyme Q10 200 mg capsule 200 mg PO DAILY 11/01/21 03/21/23 History atorvastatin 10 mg tablet 10 mg PO HS #90 tabs 09/08/22 03/21/23 Rx magnesium chloride 64 mg 128 mg PO TID #540 tabs 09/08/22 03/21/23 Rx (magnesium chloride) tablet,delayed release furosemide 40 mg tablet 40 mg PO QAM 11/21/22 03/21/23 History spironolactone 25 mg tablet 25 mg PO DAILY #90 tabs 12/06/22 03/21/23 Rx furosemide 40 mg tablet 20 mg PO QDL 12/28/22 03/21/23 History propranolol 10 mg tablet 10 mg PO TID 90 days #270 tabs 01/23/23 03/21/23 Rx lactulose 10 gram/15 mL oral 30 g (45 mL) PO BID 90 days #8,100 01/30/23 03/21/23 Rx solution mL pantoprazole 40 mg tablet,delayed 40 mg PO BID #180 tabs 02/07/23 03/21/23 Rx release apixaban 2.5 mg tablet (Eliquis) 2.5 mg PO BID #60 tabs 02/13/23 03/21/23 Rx rifaximin 550 mg tablet (Xifaxan) 550 mg PO BID 30 days #60 tabs 02/16/23 03/21/23 Rx levothyroxine 75 mcg tablet 75 mcg PO DAILY #90 tabs 03/01/23 03/21/23 Rx Past Med/Surg History Medical History Acute hyperkalemia Acute on chronic diastolic heart failure EMY (acute kidney injury) Chronic deep vein thrombosis (DVT) Cough Diverticular hemorrhage resolved Dizziness DVT (deep venous thrombosis) Elevated troponin Encephalopathy acute Esophageal varices determined by endoscopy Fever Generalized weakness GERD (gastroesophageal reflux disease) GI bleed none at present Hepatic encephalopathy Hypomagnesemia Lactate blood increase Migraine Monoclonal gammopathy Nausea & vomiting Nausea vomiting and diarrhea Osteoarthritis Presence of IVC filter Pulmonary embolism 2019 > no known cause > Filter to right groin Rhinovirus Stage 3b chronic kidney disease Thrombocytopenia Vertigo Volume overload Vomiting and diarrhea Weakness Wheezing Surgical History History of bilateral breast reduction surgery History of bilateral cataract extraction History of carpal tunnel release of both wrists History of section x3 History of colonoscopy History of dilatation and curettage History of esophagogastroduodenoscopy (EGD) History of laparoscopic cholecystectomy History of lumbar spinal fusion hardware in place History of tonsillectomy History of tooth extraction all teeth History of total left knee replacement (TKR) History of total right knee replacement (TKR) Family History Mother Family history of diabetes mellitus Brother Family history of diabetes mellitus 3 brothers Colorectal cancer Myocardial infarction x 2 Father Myocardial infarction Denies family history of Ovarian cancer Prostate cancer Breast cancer Social History Smoking Status: Former smoker Tobacco Type: Cigarettes Age Started Using Tobacco: 15; Age Quit Using Tobacco: 21; Cigarettes Per Day: stopped 55 years ago; Second Hand Exposure: No; Do You Dip or Chew Tobacco: No; Hx Alcohol Use: No Hx Substance Use: No Preferred Language: German Communication Ability: Effective Visual Impairment: Limited Hearing Ability: Normal It Assistant Required: No Beliefs That Will Affect Care: None marital status: / Current Living Situation: Family Current Living Situation Comment: lives with niece current occupational status: retired How many Children do You have: 3 Other Information That Helps Us Care for You: No Feels Safe at Home: Yes Safety Concerns: Feels Safe At This Time Childhood Exposure to Second-Hand Smoke: Yes Diet: regular caffeine: Yes (tea) during the past year weight has: remained stable Dental Care, Regularly: No Physical Activity Frequency: Does not Exercise Seatbelt Use: always Sunscreen Use: No Do you think of yourself as: straight/heterosexual Gender Identity: Female Assistive Devices: None, Denture - Upper, Denture - Lower, Glasses and Walker Review of Systems Review of Systems: All systems reviewed & are unremarkable except as noted in HPI & below Physical Exam Physical Exam: General: chronically ill appearing female resting in bed, covered in blankets, NAD, daughter at bedside, states she wishes she was in her own bed HEENT; head normocephalic, atraumatic, pupils equal in size, no scleral icterus Resp: faint expiratory wheezing, no crackles/rales, on room air CV: regular, (sinus arrhythmia on monitor) rates in 60s, +murmur (harsh to ANDREI B), also additional murmur w/ radiation to apex, S1/quiet S2, 1+ b/l LE edema, no calf tenderness GI: +BS, slight distension, nontender : no martino MSK/Neuro: answering questions appropriately, fatigued appearing alert/oriented to person/place/date & time, events, cooperative with exam follows commands, no facial droop slight tenderness to thoracic spine, no obvious lesion/rash/drainage/warmth (reports chronic back pain) dorsiflexion/plantar flexion intact generalized weakness, but no focal deficit Skin: no obvious lesions Results & Data Results & Data Vital Signs (Past 12 Hours) Vital Signs Temp Pulse Pulse Resp BP BP Pulse Ox 03/21/23 06:30 63 20 153/113 H 97 03/21/23 06:10 64 03/21/23 06:19 97 03/21/23 06:06 36.5 C 69 20 159/69 H 97 O2 Del Method 03/21/23 06:30 Room Air 03/21/23 06:10 03/21/23 06:19 Room Air 03/21/23 06:06 Room Air Laboratory Results 03/21/23 03/21/23 03/21/23 Range/Units 08:43 07:20 06:10 WBC (4.8-10.8) K/ul RBC (4.20-5.40) M/uL Hgb (12.0-16.0) g/dl Hct (37.0-47.0) % MCV (80.0-100.0) fL MCH (25.0-34.0) pg MCHC (32.0-36.0) g/dL RDW Std Deviation (36.4-46.3) fL RDW Coeff of Leah (11.5-14.5) % Plt Count (130-400) K/uL MPV (9.4-12.4) fL Immature Gran % (Auto) % Neut % (Auto) % Lymph % (Auto) % [place] % (Auto) % Eos % (Auto) % Baso % (Auto) % Neut # (Auto) (1.40-6.50) K/uL Lymph # (Auto) (1.20-3.40) K/uL [place] # (Auto) (0.11-0.59) K/uL Eos # (Auto) (0.00-0.50) K/uL Baso # (Auto) (0.00-0.20) K/uL Immature Gran # (Auto) (0.01-0.20) K/uL PT (9.0-12.0) Seconds INR (0.9-1.1) Sodium 140 (136-145) mmol/L Potassium 4.1 (3.5-5.1) mmol/L Chloride 111 H (98-107) mmol/L Carbon Dioxide 22 (21-32) mmol/L Anion Gap 7 (3-11) BUN 50 H (6-23) mg/dl Creatinine 1.61 H (0.6-1.2) mg/dl Est Cr Clr Drug Dosing 31.1 ml/min Est GFR ( Amer) 34.9 ml/min Est GFR (Non-Af Amer) 30.1 ml/min BUN/Creatinine Ratio 31.1 H (10-20) Glucose 150 H (70-99(Fasting)) mg/dl Calcium 8.2 L (8.6-10.3) mg/dl Magnesium 1.4 L (1.7-2.4) mg/dl Total Bilirubin 0.8 (0.2-1.0) mg/dl AST 37 (13-39) U/L ALT 24 (7-52) U/L Alkaline Phosphatase 105 H (34-104) U/L Ammonia 245.0 H (18-72) umol/L Troponin I High Sens 11.6 (0-14) pg/ml Total Protein 7.0 (6.0-8.3) gm/dl Albumin 2.6 L (3.4-5.0) gm/dl Globulin 4.4 H (2.5-4.0) gm/dl Albumin/Globulin Ratio 0.6 L (0.9-2) Lipase 54 (11-82) U/L Urine Color Yellow Urine Appearance Cloudy A (Clear) Urine pH 5.5 (4.5-7.5) Ur Specific [place] 1.013 (1.000-1.030) Urine Protein 1+ H (Negative) Urine Glucose (UA) Negative (Negative) Urine Ketones Negative (Negative) Urine Blood 1+ H (Negative) Urine Nitrite Negative (Negative) Urine Bilirubin Negative (Negative) Urine Urobilinogen Negative (Negative) Ur Leukocyte Esterase 2+ H (Negative) Urine WBC (Auto) >30 H (0-5) /hpf Urine RBC (Auto) 0-4 (0-4) /hpf U Hyaline Cast (Auto) 1-5 (0-5) /lpf U Epithel Cells (Auto) >30 H (0-5) /lpf Urine Bacteria (Auto) 2+ H (Negative) Urine Yeast Not Reportable 03/21/23 03/21/23 Range/Units 06:10 06:10 WBC 3.50 L (4.8-10.8) K/ul RBC 3.63 L (4.20-5.40) M/uL Hgb 11.5 L (12.0-16.0) g/dl Hct 35.4 L (37.0-47.0) % MCV 97.5 (80.0-100.0) fL MCH 31.7 (25.0-34.0) pg MCHC 32.5 (32.0-36.0) g/dL RDW Std Deviation 50.5 H (36.4-46.3) fL RDW Coeff of Leah 14.1 (11.5-14.5) % Plt Count 100 L (130-400) K/uL MPV 10.4 (9.4-12.4) fL Immature Gran % (Auto) 0.0 % Neut % (Auto) 52.2 % Lymph % (Auto) 32.6 % [place] % (Auto) 10.9 % Eos % (Auto) 3.7 % Baso % (Auto) 0.6 % Neut # (Auto) 1.83 (1.40-6.50) K/uL Lymph # (Auto) 1.14 L (1.20-3.40) K/uL [place] # (Auto) 0.38 (0.11-0.59) K/uL Eos # (Auto) 0.13 (0.00-0.50) K/uL Baso # (Auto) 0.02 (0.00-0.20) K/uL Immature Gran # (Auto) 0.00 L (0.01-0.20) K/uL PT 13.0 H (9.0-12.0) Seconds INR 1.2 H (0.9-1.1) Sodium (136-145) mmol/L Potassium (3.5-5.1) mmol/L Chloride (98-107) mmol/L Carbon Dioxide (21-32) mmol/L Anion Gap (3-11) BUN (6-23) mg/dl Creatinine (0.6-1.2) mg/dl Est Cr Clr Drug Dosing ml/min Est GFR ( Amer) ml/min Est GFR (Non-Af Amer) ml/min BUN/Creatinine Ratio (10-20) Glucose (70-99(Fasting)) mg/dl Calcium (8.6-10.3) mg/dl Magnesium (1.7-2.4) mg/dl Total Bilirubin (0.2-1.0) mg/dl AST (13-39) U/L ALT (7-52) U/L Alkaline Phosphatase (34-104) U/L Ammonia (18-72) umol/L Troponin I High Sens (0-14) pg/ml Total Protein (6.0-8.3) gm/dl Albumin (3.4-5.0) gm/dl Globulin (2.5-4.0) gm/dl Albumin/Globulin Ratio (0.9-2) Lipase (11-82) U/L Urine Color Urine Appearance (Clear) Urine pH (4.5-7.5) Ur Specific [place] (1.000-1.030) Urine Protein (Negative) Urine Glucose (UA) (Negative) Urine Ketones (Negative) Urine Blood (Negative) Urine Nitrite (Negative) Urine Bilirubin (Negative) Urine Urobilinogen (Negative) Ur Leukocyte Esterase (Negative) Urine WBC (Auto) (0-5) /hpf Urine RBC (Auto) (0-4) /hpf U Hyaline Cast (Auto) (0-5) /lpf U Epithel Cells (Auto) (0-5) /lpf Urine Bacteria (Auto) (Negative) Urine Yeast Diagnostic Findings Chest X-Ray 03/21/23 06:03 XR chest 1V portable CLINICAL HISTORY: Chest pain, nonspecific COMPARISON STUDY: Chest radiograph February 14, 2023. Chest CT November 22, 2022. FINDINGS: No pneumothorax or pleural effusion is present. Moderate cardiomegaly is unchanged. There is no evidence for pulmonary edema. There is no consolidation to suggest pneumonia. Minimal linear left basilar opacity favors atelectasis or scarring. IMPRESSION: No acute cardiopulmonary findings. Cardiomegaly. ACT 112: Negative or not required by law. Electronically signed by: Eris Friedman M.D. 03/21/2023 6:49 AM ECG Additional Comments: NSR w/ sinus arrhythmia Code Status & VTE Plan VTE Prophylaxis Plan VTE Prophylaxis will be ordered: Yes Supervising Physician Co-Signing Physician Notes PA Supervision Note: I personally saw and examined the patient. I verified all almanzar points and agree with EROS James with the following exceptions and/or additions: S-Pt here with weakness, mild confusion, no focal symptoms, some nausea. Workup revelaed low mag as usual fo rher and elevated NH3. No fevers or other symptoms or signs of infeciton. ALway shas urinary frequency but UA with evidence of UTI O- Vitals reviewed Gen: [AAOx3, NAD] HEENT: [anicteric sclerae, EOMI] CV: [RRR no mgr nl S1S2] Pulm: [CTAB no wcr] Abd: [+BS soft NT ND no masses or hernias] Ext: [trace edema, 2+ DP pulses] Skin: [no rashes, warm/dry] Neuro: [full strength throughout] A/P-77 yo female here with hepatic encephalopathy-mild, UTI, and nausea with generalized weakness. Improving already plan as noted above, ensure taking lactulose and moving bowels 2-3 times per day treat UTI with ceftriaxone, follow Ur cx follow BCxs Lyme IgM quivocal, IgG positive but has been positive previously-start doxy x 10 day course, follow WB PG Care Time/CCT Total # of Minutes Spent Total Time Spent with Patient: Total time spent is greater than 50% in coordination of care (as documented) at patient's floor/unit and/or counseling patient: Coding Level of Care Code 35479 INT INP/OBS CARE 3/75MIN Diagnoses Generalized weakness R53.1 Hyperammonemia E72.20 Hypomagnesemia E83.42 Hypothyroidism E03.9 Nausea & vomiting R11.2 Chronic diastolic heart failure I50.32 Chronic kidney disease, stage III (moderate) N18.30 PAF (paroxysmal atrial fibrillation) I48.0 Type 2 DM with CKD stage 4 and hypertension E11.22; I12.9; N18.4 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 to alcohol K74.60 Aortic stenosis I35.0 UTI (urinary tract infection) N39.0
[2023-03-21 08:59] LABS: Appearance Urine Cloudy (Clear); Bacteria Urine Automated 2+ (Negative); Bilirubin Urine Negative (Negative); Blood Urine 1+ (Negative); Color Urine Yellow; Epithelial Cell Urine Auto >30 /lpf (0-5); Glucose Urine UA Negative (Negative); Ketones Urine Negative (Negative); Leukocyte Esterase Urine 2+ (Negative); Nitrite Urine Negative (Negative); Protein Urine 1+ (Negative); Specific Gravity Urine 1.013 (1.000-1.030); Urobilinogen Urine Negative (Negative); WBC Urine Automated >30 /hpf (0-5); pH Urine 5.5 (4.5-7.5)
[2023-03-21 09:13] LABS: RBC Urine Automated 0-4 /hpf (0-4)
[2023-03-21] MEDS ORDERED: FUROSEMIDE 40 MG TAB PO ONE (09:23)
[2023-03-21] MEDS ORDERED: APIXABAN 2.5 MG TAB PO ONE (09:23)
[2023-03-21] MEDS ORDERED: SPIRONOLACTONE 25 MG TAB PO ONE (09:23)
[2023-03-21] MEDS ORDERED: PROPRANOLOL HCL 10 MG TAB PO STA (09:23)
[2023-03-21] MEDS ORDERED: cefTRIAXone SODIUM 2,000 MG/70 ML BAG IV STA (09:24)
[2023-03-21] MEDS ORDERED: ONDANSETRON INJ 2 MG/ML 2 ML VIAL IV PRN (11:24)
[2023-03-21] MEDS ORDERED: ACETAMINOPHEN 325 MG TAB PO PRN (11:24)
[2023-03-21] MEDS ORDERED: ALUMINUM/MAGNESIUM SUSP 30 ML UDC PO PRN (11:24)
[2023-03-21] MEDS ORDERED: PANTOprazole 40 MG in SYRINGE 0 ML IV SCH (12:15)
[2023-03-21] MEDS: cefTRIAXone SODIUM 2,000 MG in DEXTROSE 5% 50 ML IV SCH (12:25)
[2023-03-21] MEDS: PROPRANOLOL HCL 10 MG TAB PO SCH ×3 (12:47→20:35)
[2023-03-21] MEDS: FUROSEMIDE 20 MG TAB PO SCH (12:48)
[2023-03-21] MEDS: MAGNESIUM CHLORIDE W/CALCIUM 64MG DELAYED REL TAB PO SCH ×2 (12:49→21:03)
[2023-03-21] MEDS: LACTULOSE SYRUP 30 GM/45 ML UDP PO SCH ×3 (12:51→21:04)
[2023-03-21] MEDS: rifAXIMin 550 MG TABLET PO SCH ×2 (12:51→21:03)
[2023-03-21 13:10] LABS: Lyme Ab IgG w/WB Rflx Positive (Negative); Lyme Ab IgM w/WB Rflx Equivocal (Negative)
[2023-03-21] MEDS: DOXYCYCLINE HYCLATE 100 MG CAP PO SCH ×2 (15:18→21:03)
--- NOTE | 2023-03-21 15:29 | Gastrointestinal Consultation ---
Date of Consultation March 21, 2023 Assessment & Plan (1) Generalized weakness: She has an ammonia level of 245 on admit with weakness so she does have encephalopathy but it does seem mild. Usually we can find a cause for encephalopathy but she doesn't have obvious cause. She does have some white cells in her urine so perhaps she has a UTI which could cause this I guess. She seems to be compliant with her meds. Of note, elevated ammonia does not always correlate with encephalopathy but there is documentation of normal levels as well. Alpha fetoprotein level is pending and, if high, that would certainly explain it. Her asterixis is very mild as well. History of Present Illness Reason for Consultation: weakness Attending Physician: Viviana Ibarra MD History of Present Illness 77 year old female with known cirrhosis and battles with mild encephalopathy. She came to the hospital because she knew her numbers were off because she was feeling weak and slurring a little. She tells me she takes lactulose and has two to three bowel movements per day. She also says she takes her rifaxamin twice daily. She has not had fever or chills. She does not see blood in her stool. She does not take any meds for sleeping or for her nerves. Of note she has a lot of elevated ammonia levels but she also has had multiple normal ones. She is alert and oriented in all ways now. Allergies Allergy/AdvReac Type Severity Reaction Status Date / Time No Known Allergies Allergy Verified 03/16/23 08:31 Home Medications Medication Instructions Recorded Confirmed Type cholecalciferol (vitamin D3) 50 2,000 unit PO QAM 07/01/18 03/21/23 History mcg (2,000 unit) capsule (Vitamin D3) multivitamin 1 tab PO QAM 10/14/19 03/21/23 History vitamin E 268 mg (400 unit) capsule 400 unit PO QAM 08/14/20 03/21/23 History coenzyme Q10 200 mg capsule 200 mg PO DAILY 11/01/21 03/21/23 History atorvastatin 10 mg tablet 10 mg PO HS #90 tabs 09/08/22 03/21/23 Rx magnesium chloride 64 mg 128 mg PO TID #540 tabs 09/08/22 03/21/23 Rx (magnesium chloride) tablet,delayed release furosemide 40 mg tablet 40 mg PO QAM 11/21/22 03/21/23 History spironolactone 25 mg tablet 25 mg PO DAILY #90 tabs 12/06/22 03/21/23 Rx furosemide 40 mg tablet 20 mg PO QDL 12/28/22 03/21/23 History propranolol 10 mg tablet 10 mg PO TID 90 days #270 tabs 01/23/23 03/21/23 Rx lactulose 10 gram/15 mL oral 30 g (45 mL) PO BID 90 days #8,100 01/30/23 03/21/23 Rx solution mL pantoprazole 40 mg tablet,delayed 40 mg PO BID #180 tabs 02/07/23 03/21/23 Rx release apixaban 2.5 mg tablet (Eliquis) 2.5 mg PO BID #60 tabs 02/13/23 03/21/23 Rx rifaximin 550 mg tablet (Xifaxan) 550 mg PO BID 30 days #60 tabs 02/16/23 03/21/23 Rx levothyroxine 75 mcg tablet 75 mcg PO DAILY #90 tabs 03/01/23 03/21/23 Rx Patient History Medical History Acute hyperkalemia Acute on chronic diastolic heart failure EMY (acute kidney injury) Chronic deep vein thrombosis (DVT) Cough Diverticular hemorrhage resolved Dizziness DVT (deep venous thrombosis) Elevated troponin Encephalopathy acute Esophageal varices determined by endoscopy Fever Generalized weakness GERD (gastroesophageal reflux disease) GI bleed none at present Hepatic encephalopathy Hypomagnesemia Lactate blood increase Migraine Monoclonal gammopathy Nausea & vomiting Nausea vomiting and diarrhea Osteoarthritis Presence of IVC filter Pulmonary embolism 2018 > no known cause > Filter to right groin Rhinovirus Stage 3b chronic kidney disease Thrombocytopenia Vertigo Volume overload Vomiting and diarrhea Weakness Wheezing Surgical History History of bilateral breast reduction surgery History of bilateral cataract extraction History of carpal tunnel release of both wrists History of section x3 History of colonoscopy History of dilatation and curettage History of esophagogastroduodenoscopy (EGD) History of laparoscopic cholecystectomy History of lumbar spinal fusion hardware in place History of tonsillectomy History of tooth extraction all teeth History of total left knee replacement (TKR) History of total right knee replacement (TKR) Family History Mother Family history of diabetes mellitus Brother Family history of diabetes mellitus 3 brothers Colorectal cancer Myocardial infarction x 2 Father Myocardial infarction Denies family history of Ovarian cancer Prostate cancer Breast cancer Social History Smoking Status: Former smoker Tobacco Type: Cigarettes Age Started Using Tobacco: 15; Age Quit Using Tobacco: 21; Cigarettes Per Day: stopped 55 years ago; Second Hand Exposure: No; Do You Dip or Chew Tobacco: No; Hx Alcohol Use: No Hx Substance Use: No Preferred Language: Hebrew Communication Ability: Effective Visual Impairment: Limited Hearing Ability: Normal 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 Beliefs That Will Affect Care: None marital status: / Current Living Situation: Family Current Living Situation Comment: lives with niece current occupational status: retired How many Children do You have: 3 Other Information That Helps Us Care for You: No Feels Safe at Home: Yes Safety Concerns: Feels Safe At This Time Childhood Exposure to Second-Hand Smoke: Yes Diet: regular caffeine: Yes (tea) during the past year weight has: remained stable Dental Care, Regularly: No Physical Activity Frequency: Does not Exercise Seatbelt Use: always Sunscreen Use: No Do you think of yourself as: straight/heterosexual Gender Identity: Female Assistive Devices: None, Denture - Upper, Denture - Lower, Glasses and Walker Review of Systems Review of Systems: All systems reviewed & are unremarkable except as noted in HPI & below Physical Exam Constitutional: WD/WN, vitals as above no acute distress Eyes: PERRL, conjunctivae normal, anicteric sclerae ENMT: external ear and nose normal, oropharynx normal Neck: trachea midline, no thyromegaly Respiratory: normal respiratory effort, lungs clear to auscultation Cardiovascular: RRR, no murmur, no edema Gastrointestinal (Abdomen): normal bowel sounds, soft, nontender, no hepatosplenomegaly Musculoskeletal: Extremities: no cyanosis and no clubbing Skin: no rashes, warm and dry Neurologic: PERRL, EOMI, accommodation nl, no face palsy, no dysarthria Motor/Sensory: + asterixis Psychiatric: Orientation: alert and oriented x 3 Results & Data Vital Signs (Past 12 Hours) Vital Signs Temp Pulse Pulse Resp BP BP Pulse Ox 03/21/23 13:53 70 03/21/23 11:32 36.4 C L 64 16 164/79 H 100 03/21/23 10:34 58 L 12 176/92 H 99 03/21/23 09:30 58 L 14 128/66 96 03/21/23 08:00 79 20 192/154 H 96 03/21/23 06:30 63 20 153/113 H 97 03/21/23 06:10 64 03/21/23 06:19 97 03/21/23 06:06 36.5 C 69 20 159/69 H 97 O2 Del Method 03/21/23 13:53 03/21/23 11:32 Room Air 03/21/23 10:34 Room Air 03/21/23 09:30 Room Air 03/21/23 08:00 Room Air 03/21/23 06:30 Room Air 03/21/23 06:10 03/21/23 06:19 Room Air 03/21/23 06:06 Room Air Laboratory Results 03/21/23 03/21/23 03/21/23 Range/Units 12:00 11:32 11:32 WBC (4.8-10.8) K/ul RBC (4.20-5.40) M/uL Hgb (12.0-16.0) g/dl Hct (37.0-47.0) % MCV (80.0-100.0) fL MCH (25.0-34.0) pg MCHC (32.0-36.0) g/dL RDW Std Deviation (36.4-46.3) fL RDW Coeff of Leah (11.5-14.5) % Plt Count (130-400) K/uL MPV (9.4-12.4) fL Immature Gran % (Auto) % Neut % (Auto) % Lymph % (Auto) % [place] % (Auto) % Eos % (Auto) % Baso % (Auto) % Neut # (Auto) (1.40-6.50) K/uL Lymph # (Auto) (1.20-3.40) K/uL [place] # (Auto) (0.11-0.59) K/uL Eos # (Auto) (0.00-0.50) K/uL Baso # (Auto) (0.00-0.20) K/uL Immature Gran # (Auto) (0.01-0.20) K/uL PT (9.0-12.0) Seconds INR (0.9-1.1) Sodium (136-145) mmol/L Potassium (3.5-5.1) mmol/L Chloride (98-107) mmol/L Carbon Dioxide (21-32) mmol/L Anion Gap (3-11) BUN (6-23) mg/dl Creatinine (0.6-1.2) mg/dl Est Cr Clr Drug Dosing ml/min Est GFR ( Amer) ml/min Est GFR (Non-Af Amer) ml/min BUN/Creatinine Ratio (10-20) Glucose (70-99(Fasting)) mg/dl POC Glucose 144 H (70-99) mg/dl Calcium (8.6-10.3) mg/dl Magnesium (1.7-2.4) mg/dl Total Bilirubin (0.2-1.0) mg/dl AST (13-39) U/L ALT (7-52) U/L Alkaline Phosphatase (34-104) U/L Ammonia (18-72) umol/L Troponin I High Sens (0-14) pg/ml Total Protein (6.0-8.3) gm/dl Albumin (3.4-5.0) gm/dl Globulin (2.5-4.0) gm/dl Albumin/Globulin Ratio (0.9-2) Lipase (11-82) U/L Tumor Marker AFP Pending TSH (0.300-4.500) uIu/ml Urine Color Urine Appearance (Clear) Urine pH (4.5-7.5) Ur Specific [place] (1.000-1.030) Urine Protein (Negative) Urine Glucose (UA) (Negative) Urine Ketones (Negative) Urine Blood (Negative) Urine Nitrite (Negative) Urine Bilirubin (Negative) Urine Urobilinogen (Negative) Ur Leukocyte Esterase (Negative) Urine WBC (Auto) (0-5) /hpf Urine RBC (Auto) (0-4) /hpf U Hyaline Cast (Auto) (0-5) /lpf U Epithel Cells (Auto) (0-5) /lpf Urine Bacteria (Auto) (Negative) Urine Yeast Lyme Disease IgG Ab (Negative) Lyme IgG (Western Blot) Pending Lyme IgG 18 kDa Band Pending Lyme IgG 23 kDa Band Pending Lyme IgG 28 kDa Band Pending Lyme IgG 30 kDa Band Pending Lyme IgG 39 kDa Band Pending Lyme IgG 41 kDa Band Pending Lyme IgG 45 kDa Band Pending Lyme IgG 58 kDa Band Pending Lyme IgG 66 kDa Band Pending Lyme IgG 93 kDa Band Pending Lyme IgM Ab (WB) Pending Lyme Disease IgM Ab (Negative) Lyme IgM 23 kDa Band Pending Lyme IgM 39 kDa Band Pending Lyme IgM 41 kDa Band Pending 03/21/23 03/21/23 03/21/23 Range/Units 11:32 11:32 08:43 WBC (4.8-10.8) K/ul RBC (4.20-5.40) M/uL Hgb (12.0-16.0) g/dl Hct (37.0-47.0) % MCV (80.0-100.0) fL MCH (25.0-34.0) pg MCHC (32.0-36.0) g/dL RDW Std Deviation (36.4-46.3) fL RDW Coeff of Leah (11.5-14.5) % Plt Count (130-400) K/uL MPV (9.4-12.4) fL Immature Gran % (Auto) % Neut % (Auto) % Lymph % (Auto) % [place] % (Auto) % Eos % (Auto) % Baso % (Auto) % Neut # (Auto) (1.40-6.50) K/uL Lymph # (Auto) (1.20-3.40) K/uL [place] # (Auto) (0.11-0.59) K/uL Eos # (Auto) (0.00-0.50) K/uL Baso # (Auto) (0.00-0.20) K/uL Immature Gran # (Auto) (0.01-0.20) K/uL PT (9.0-12.0) Seconds INR (0.9-1.1) Sodium (136-145) mmol/L Potassium (3.5-5.1) mmol/L Chloride (98-107) mmol/L Carbon Dioxide (21-32) mmol/L Anion Gap (3-11) BUN (6-23) mg/dl Creatinine (0.6-1.2) mg/dl Est Cr Clr Drug Dosing ml/min Est GFR ( Amer) ml/min Est GFR (Non-Af Amer) ml/min BUN/Creatinine Ratio (10-20) Glucose (70-99(Fasting)) mg/dl POC Glucose (70-99) mg/dl Calcium (8.6-10.3) mg/dl Magnesium (1.7-2.4) mg/dl Total Bilirubin (0.2-1.0) mg/dl AST (13-39) U/L ALT (7-52) U/L Alkaline Phosphatase (34-104) U/L Ammonia (18-72) umol/L Troponin I High Sens (0-14) pg/ml Total Protein (6.0-8.3) gm/dl Albumin (3.4-5.0) gm/dl Globulin (2.5-4.0) gm/dl Albumin/Globulin Ratio (0.9-2) Lipase (11-82) U/L Tumor Marker AFP TSH 3.828 (0.300-4.500) uIu/ml Urine Color Yellow Urine Appearance Cloudy A (Clear) Urine pH 5.5 (4.5-7.5) Ur Specific [place] 1.013 (1.000-1.030) Urine Protein 1+ H (Negative) Urine Glucose (UA) Negative (Negative) Urine Ketones Negative (Negative) Urine Blood 1+ H (Negative) Urine Nitrite Negative (Negative) Urine Bilirubin Negative (Negative) Urine Urobilinogen Negative (Negative) Ur Leukocyte Esterase 2+ H (Negative) Urine WBC (Auto) >30 H (0-5) /hpf Urine RBC (Auto) 0-4 (0-4) /hpf U Hyaline Cast (Auto) 1-5 (0-5) /lpf U Epithel Cells (Auto) >30 H (0-5) /lpf Urine Bacteria (Auto) 2+ H (Negative) Urine Yeast Not Reportable Lyme Disease IgG Ab Positive A (Negative) Lyme IgG (Western Blot) Lyme IgG 18 kDa Band Lyme IgG 23 kDa Band Lyme IgG 28 kDa Band Lyme IgG 30 kDa Band Lyme IgG 39 kDa Band Lyme IgG 41 kDa Band Lyme IgG 45 kDa Band Lyme IgG 58 kDa Band Lyme IgG 66 kDa Band Lyme IgG 93 kDa Band Lyme IgM Ab (WB) Lyme Disease IgM Ab Equivocal A (Negative) Lyme IgM 23 kDa Band Lyme IgM 39 kDa Band Lyme IgM 41 kDa Band 03/21/23 03/21/23 03/21/23 Range/Units 07:20 06:10 06:10 WBC (4.8-10.8) K/ul RBC (4.20-5.40) M/uL Hgb (12.0-16.0) g/dl Hct (37.0-47.0) % MCV (80.0-100.0) fL MCH (25.0-34.0) pg MCHC (32.0-36.0) g/dL RDW Std Deviation (36.4-46.3) fL RDW Coeff of Leah (11.5-14.5) % Plt Count (130-400) K/uL MPV (9.4-12.4) fL Immature Gran % (Auto) % Neut % (Auto) % Lymph % (Auto) % [place] % (Auto) % Eos % (Auto) % Baso % (Auto) % Neut # (Auto) (1.40-6.50) K/uL Lymph # (Auto) (1.20-3.40) K/uL [place] # (Auto) (0.11-0.59) K/uL Eos # (Auto) (0.00-0.50) K/uL Baso # (Auto) (0.00-0.20) K/uL Immature Gran # (Auto) (0.01-0.20) K/uL PT 13.0 H (9.0-12.0) Seconds INR 1.2 H (0.9-1.1) Sodium 140 (136-145) mmol/L Potassium 4.1 (3.5-5.1) mmol/L Chloride 111 H (98-107) mmol/L Carbon Dioxide 22 (21-32) mmol/L Anion Gap 7 (3-11) BUN 50 H (6-23) mg/dl Creatinine 1.61 H (0.6-1.2) mg/dl Est Cr Clr Drug Dosing 31.1 ml/min Est GFR ( Amer) 34.9 ml/min Est GFR (Non-Af Amer) 30.1 ml/min BUN/Creatinine Ratio 31.1 H (10-20) Glucose 150 H (70-99(Fasting)) mg/dl POC Glucose (70-99) mg/dl Calcium 8.2 L (8.6-10.3) mg/dl Magnesium 1.4 L (1.7-2.4) mg/dl Total Bilirubin 0.8 (0.2-1.0) mg/dl AST 37 (13-39) U/L ALT 24 (7-52) U/L Alkaline Phosphatase 105 H (34-104) U/L Ammonia 245.0 H (18-72) umol/L Troponin I High Sens 11.6 (0-14) pg/ml Total Protein 7.0 (6.0-8.3) gm/dl Albumin 2.6 L (3.4-5.0) gm/dl Globulin 4.4 H (2.5-4.0) gm/dl Albumin/Globulin Ratio 0.6 L (0.9-2) Lipase 54 (11-82) U/L Tumor Marker AFP TSH (0.300-4.500) uIu/ml Urine Color Urine Appearance (Clear) Urine pH (4.5-7.5) Ur Specific [place] (1.000-1.030) Urine Protein (Negative) Urine Glucose (UA) (Negative) Urine Ketones (Negative) Urine Blood (Negative) Urine Nitrite (Negative) Urine Bilirubin (Negative) Urine Urobilinogen (Negative) Ur Leukocyte Esterase (Negative) Urine WBC (Auto) (0-5) /hpf Urine RBC (Auto) (0-4) /hpf U Hyaline Cast (Auto) (0-5) /lpf U Epithel Cells (Auto) (0-5) /lpf Urine Bacteria (Auto) (Negative) Urine Yeast Lyme Disease IgG Ab (Negative) Lyme IgG (Western Blot) Lyme IgG 18 kDa Band Lyme IgG 23 kDa Band Lyme IgG 28 kDa Band Lyme IgG 30 kDa Band Lyme IgG 39 kDa Band Lyme IgG 41 kDa Band Lyme IgG 45 kDa Band Lyme IgG 58 kDa Band Lyme IgG 66 kDa Band Lyme IgG 93 kDa Band Lyme IgM Ab (WB) Lyme Disease IgM Ab (Negative) Lyme IgM 23 kDa Band Lyme IgM 39 kDa Band Lyme IgM 41 kDa Band 08/29/23 Range/Units 06:10 WBC 3.50 L (4.8-10.8) K/ul RBC 3.63 L (4.20-5.40) M/uL Hgb 11.5 L (12.0-16.0) g/dl Hct 35.4 L (37.0-47.0) % MCV 97.5 (80.0-100.0) fL MCH 31.7 (25.0-34.0) pg MCHC 32.5 (32.0-36.0) g/dL RDW Std Deviation 50.5 H (36.4-46.3) fL RDW Coeff of Leah 14.1 (11.5-14.5) % Plt Count 100 L (130-400) K/uL MPV 10.4 (9.4-12.4) fL Immature Gran % (Auto) 0.0 % Neut % (Auto) 52.2 % Lymph % (Auto) 32.6 % [place] % (Auto) 10.9 % Eos % (Auto) 3.7 % Baso % (Auto) 0.6 % Neut # (Auto) 1.83 (1.40-6.50) K/uL Lymph # (Auto) 1.14 L (1.20-3.40) K/uL [place] # (Auto) 0.38 (0.11-0.59) K/uL Eos # (Auto) 0.13 (0.00-0.50) K/uL Baso # (Auto) 0.02 (0.00-0.20) K/uL Immature Gran # (Auto) 0.00 L (0.01-0.20) K/uL PT (9.0-12.0) Seconds INR (0.9-1.1) Sodium (136-145) mmol/L Potassium (3.5-5.1) mmol/L Chloride (98-107) mmol/L Carbon Dioxide (21-32) mmol/L Anion Gap (3-11) BUN (6-23) mg/dl Creatinine (0.6-1.2) mg/dl Est Cr Clr Drug Dosing ml/min Est GFR ( Amer) ml/min Est GFR (Non-Af Amer) ml/min BUN/Creatinine Ratio (10-20) Glucose (70-99(Fasting)) mg/dl POC Glucose (70-99) mg/dl Calcium (8.6-10.3) mg/dl Magnesium (1.7-2.4) mg/dl Total Bilirubin (0.2-1.0) mg/dl AST (13-39) U/L ALT (7-52) U/L Alkaline Phosphatase (34-104) U/L Ammonia (18-72) umol/L Troponin I High Sens (0-14) pg/ml Total Protein (6.0-8.3) gm/dl Albumin (3.4-5.0) gm/dl Globulin (2.5-4.0) gm/dl Albumin/Globulin Ratio (0.9-2) Lipase (11-82) U/L Tumor Marker AFP TSH (0.300-4.500) uIu/ml Urine Color Urine Appearance (Clear) Urine pH (4.5-7.5) Ur Specific [place] (1.000-1.030) Urine Protein (Negative) Urine Glucose (UA) (Negative) Urine Ketones (Negative) Urine Blood (Negative) Urine Nitrite (Negative) Urine Bilirubin (Negative) Urine Urobilinogen (Negative) Ur Leukocyte Esterase (Negative) Urine WBC (Auto) (0-5) /hpf Urine RBC (Auto) (0-4) /hpf U Hyaline Cast (Auto) (0-5) /lpf U Epithel Cells (Auto) (0-5) /lpf Urine Bacteria (Auto) (Negative) Urine Yeast Lyme Disease IgG Ab (Negative) Lyme IgG (Western Blot) Lyme IgG 18 kDa Band Lyme IgG 23 kDa Band Lyme IgG 28 kDa Band Lyme IgG 30 kDa Band Lyme IgG 39 kDa Band Lyme IgG 41 kDa Band Lyme IgG 45 kDa Band Lyme IgG 58 kDa Band Lyme IgG 66 kDa Band Lyme IgG 93 kDa Band Lyme IgM Ab (WB) Lyme Disease IgM Ab (Negative) Lyme IgM 23 kDa Band Lyme IgM 39 kDa Band Lyme IgM 41 kDa Band Diagnostic Findings 03/21/23 03/21/23 03/21/23 Range/Units 12:00 11:32 11:32 WBC (4.8-10.8) K/ul RBC (4.20-5.40) M/uL Hgb (12.0-16.0) g/dl Hct (37.0-47.0) % MCV (80.0-100.0) fL MCH (25.0-34.0) pg MCHC (32.0-36.0) g/dL RDW Std Deviation (36.4-46.3) fL RDW Coeff of Leah (11.5-14.5) % Plt Count (130-400) K/uL MPV (9.4-12.4) fL Immature Gran % (Auto) % Neut % (Auto) % Lymph % (Auto) % [place] % (Auto) % Eos % (Auto) % Baso % (Auto) % Neut # (Auto) (1.40-6.50) K/uL Lymph # (Auto) (1.20-3.40) K/uL [place] # (Auto) (0.11-0.59) K/uL Eos # (Auto) (0.00-0.50) K/uL Baso # (Auto) (0.00-0.20) K/uL Immature Gran # (Auto) (0.01-0.20) K/uL PT (9.0-12.0) Seconds INR (0.9-1.1) Sodium (136-145) mmol/L Potassium (3.5-5.1) mmol/L Chloride (98-107) mmol/L Carbon Dioxide (21-32) mmol/L Anion Gap (3-11) BUN (6-23) mg/dl Creatinine (0.6-1.2) mg/dl Est Cr Clr Drug Dosing ml/min Est GFR ( Amer) ml/min Est GFR (Non-Af Amer) ml/min BUN/Creatinine Ratio (10-20) Glucose (70-99(Fasting)) mg/dl POC Glucose 144 H (70-99) mg/dl Calcium (8.6-10.3) mg/dl Magnesium (1.7-2.4) mg/dl Total Bilirubin (0.2-1.0) mg/dl AST (13-39) U/L ALT (7-52) U/L Alkaline Phosphatase (34-104) U/L Ammonia (18-72) umol/L Troponin I High Sens (0-14) pg/ml Total Protein (6.0-8.3) gm/dl Albumin (3.4-5.0) gm/dl Globulin (2.5-4.0) gm/dl Albumin/Globulin Ratio (0.9-2) Lipase (11-82) U/L Tumor Marker AFP Pending TSH (0.300-4.500) uIu/ml Urine Color Urine Appearance (Clear) Urine pH (4.5-7.5) Ur Specific [place] (1.000-1.030) Urine Protein (Negative) Urine Glucose (UA) (Negative) Urine Ketones (Negative) Urine Blood (Negative) Urine Nitrite (Negative) Urine Bilirubin (Negative) Urine Urobilinogen (Negative) Ur Leukocyte Esterase (Negative) Urine WBC (Auto) (0-5) /hpf Urine RBC (Auto) (0-4) /hpf U Hyaline Cast (Auto) (0-5) /lpf U Epithel Cells (Auto) (0-5) /lpf Urine Bacteria (Auto) (Negative) Urine Yeast Lyme Disease IgG Ab (Negative) Lyme IgG (Western Blot) Pending Lyme IgG 18 kDa Band Pending Lyme IgG 23 kDa Band Pending Lyme IgG 28 kDa Band Pending Lyme IgG 30 kDa Band Pending Lyme IgG 39 kDa Band Pending Lyme IgG 41 kDa Band Pending Lyme IgG 45 kDa Band Pending Lyme IgG 58 kDa Band Pending Lyme IgG 66 kDa Band Pending Lyme IgG 93 kDa Band Pending Lyme IgM Ab (WB) Pending Lyme Disease IgM Ab (Negative) Lyme IgM 23 kDa Band Pending Lyme IgM 39 kDa Band Pending Lyme IgM 41 kDa Band Pending 03/21/23 03/21/23 03/21/23 Range/Units 11:32 11:32 08:43 WBC (4.8-10.8) K/ul RBC (4.20-5.40) M/uL Hgb (12.0-16.0) g/dl Hct (37.0-47.0) % MCV (80.0-100.0) fL MCH (25.0-34.0) pg MCHC (32.0-36.0) g/dL RDW Std Deviation (36.4-46.3) fL RDW Coeff of Leah (11.5-14.5) % Plt Count (130-400) K/uL MPV (9.4-12.4) fL Immature Gran % (Auto) % Neut % (Auto) % Lymph % (Auto) % [place] % (Auto) % Eos % (Auto) % Baso % (Auto) % Neut # (Auto) (1.40-6.50) K/uL Lymph # (Auto) (1.20-3.40) K/uL [place] # (Auto) (0.11-0.59) K/uL Eos # (Auto) (0.00-0.50) K/uL Baso # (Auto) (0.00-0.20) K/uL Immature Gran # (Auto) (0.01-0.20) K/uL PT (9.0-12.0) Seconds INR (0.9-1.1) Sodium (136-145) mmol/L Potassium (3.5-5.1) mmol/L Chloride (98-107) mmol/L Carbon Dioxide (21-32) mmol/L Anion Gap (3-11) BUN (6-23) mg/dl Creatinine (0.6-1.2) mg/dl Est Cr Clr Drug Dosing ml/min Est GFR ( Amer) ml/min Est GFR (Non-Af Amer) ml/min BUN/Creatinine Ratio (10-20) Glucose (70-99(Fasting)) mg/dl POC Glucose (70-99) mg/dl Calcium (8.6-10.3) mg/dl Magnesium (1.7-2.4) mg/dl Total Bilirubin (0.2-1.0) mg/dl AST (13-39) U/L ALT (7-52) U/L Alkaline Phosphatase (34-104) U/L Ammonia (18-72) umol/L Troponin I High Sens (0-14) pg/ml Total Protein (6.0-8.3) gm/dl Albumin (3.4-5.0) gm/dl Globulin (2.5-4.0) gm/dl Albumin/Globulin Ratio (0.9-2) Lipase (11-82) U/L Tumor Marker AFP TSH 3.828 (0.300-4.500) uIu/ml Urine Color Yellow Urine Appearance Cloudy A (Clear) Urine pH 5.5 (4.5-7.5) Ur Specific [place] 1.013 (1.000-1.030) Urine Protein 1+ H (Negative) Urine Glucose (UA) Negative (Negative) Urine Ketones Negative (Negative) Urine Blood 1+ H (Negative) Urine Nitrite Negative (Negative) Urine Bilirubin Negative (Negative) Urine Urobilinogen Negative (Negative) Ur Leukocyte Esterase 2+ H (Negative) Urine WBC (Auto) >30 H (0-5) /hpf Urine RBC (Auto) 0-4 (0-4) /hpf U Hyaline Cast (Auto) 1-5 (0-5) /lpf U Epithel Cells (Auto) >30 H (0-5) /lpf Urine Bacteria (Auto) 2+ H (Negative) Urine Yeast Not Reportable Lyme Disease IgG Ab Positive A (Negative) Lyme IgG (Western Blot) Lyme IgG 18 kDa Band Lyme IgG 23 kDa Band Lyme IgG 28 kDa Band Lyme IgG 30 kDa Band Lyme IgG 39 kDa Band Lyme IgG 41 kDa Band Lyme IgG 45 kDa Band Lyme IgG 58 kDa Band Lyme IgG 66 kDa Band Lyme IgG 93 kDa Band Lyme IgM Ab (WB) Lyme Disease IgM Ab Equivocal A (Negative) Lyme IgM 23 kDa Band Lyme IgM 39 kDa Band Lyme IgM 41 kDa Band 03/21/23 03/21/23 03/21/23 Range/Units 07:20 06:10 06:10 WBC (4.8-10.8) K/ul RBC (4.20-5.40) M/uL Hgb (12.0-16.0) g/dl Hct (37.0-47.0) % MCV (80.0-100.0) fL MCH (25.0-34.0) pg MCHC (32.0-36.0) g/dL RDW Std Deviation (36.4-46.3) fL RDW Coeff of Leah (11.5-14.5) % Plt Count (130-400) K/uL MPV (9.4-12.4) fL Immature Gran % (Auto) % Neut % (Auto) % Lymph % (Auto) % [place] % (Auto) % Eos % (Auto) % Baso % (Auto) % Neut # (Auto) (1.40-6.50) K/uL Lymph # (Auto) (1.20-3.40) K/uL [place] # (Auto) (0.11-0.59) K/uL Eos # (Auto) (0.00-0.50) K/uL Baso # (Auto) (0.00-0.20) K/uL Immature Gran # (Auto) (0.01-0.20) K/uL PT 13.0 H (9.0-12.0) Seconds INR 1.2 H (0.9-1.1) Sodium 140 (136-145) mmol/L Potassium 4.1 (3.5-5.1) mmol/L Chloride 111 H (98-107) mmol/L Carbon Dioxide 22 (21-32) mmol/L Anion Gap 7 (3-11) BUN 50 H (6-23) mg/dl Creatinine 1.61 H (0.6-1.2) mg/dl Est Cr Clr Drug Dosing 31.1 ml/min Est GFR ( Amer) 34.9 ml/min Est GFR (Non-Af Amer) 30.1 ml/min BUN/Creatinine Ratio 31.1 H (10-20) Glucose 150 H (70-99(Fasting)) mg/dl POC Glucose (70-99) mg/dl Calcium 8.2 L (8.6-10.3) mg/dl Magnesium 1.4 L (1.7-2.4) mg/dl Total Bilirubin 0.8 (0.2-1.0) mg/dl AST 37 (13-39) U/L ALT 24 (7-52) U/L Alkaline Phosphatase 105 H (34-104) U/L Ammonia 245.0 H (18-72) umol/L Troponin I High Sens 11.6 (0-14) pg/ml Total Protein 7.0 (6.0-8.3) gm/dl Albumin 2.6 L (3.4-5.0) gm/dl Globulin 4.4 H (2.5-4.0) gm/dl Albumin/Globulin Ratio 0.6 L (0.9-2) Lipase 54 (11-82) U/L Tumor Marker AFP TSH (0.300-4.500) uIu/ml Urine Color Urine Appearance (Clear) Urine pH (4.5-7.5) Ur Specific [place] (1.000-1.030) Urine Protein (Negative) Urine Glucose (UA) (Negative) Urine Ketones (Negative) Urine Blood (Negative) Urine Nitrite (Negative) Urine Bilirubin (Negative) Urine Urobilinogen (Negative) Ur Leukocyte Esterase (Negative) Urine WBC (Auto) (0-5) /hpf Urine RBC (Auto) (0-4) /hpf U Hyaline Cast (Auto) (0-5) /lpf U Epithel Cells (Auto) (0-5) /lpf Urine Bacteria (Auto) (Negative) Urine Yeast Lyme Disease IgG Ab (Negative) Lyme IgG (Western Blot) Lyme IgG 18 kDa Band Lyme IgG 23 kDa Band Lyme IgG 28 kDa Band Lyme IgG 30 kDa Band Lyme IgG 39 kDa Band Lyme IgG 41 kDa Band Lyme IgG 45 kDa Band Lyme IgG 58 kDa Band Lyme IgG 66 kDa Band Lyme IgG 93 kDa Band Lyme IgM Ab (WB) Lyme Disease IgM Ab (Negative) Lyme IgM 23 kDa Band Lyme IgM 39 kDa Band Lyme IgM 41 kDa Band 03/21/ Range/Units 06:10 WBC 3.50 L (4.8-10.8) K/ul RBC 3.63 L (4.20-5.40) M/uL Hgb 11.5 L (12.0-16.0) g/dl Hct 35.4 L (37.0-47.0) % MCV 97.5 (80.0-100.0) fL MCH 31.7 (25.0-34.0) pg MCHC 32.5 (32.0-36.0) g/dL RDW Std Deviation 50.5 H (36.4-46.3) fL RDW Coeff of Leah 14.1 (11.5-14.5) % Plt Count 100 L (130-400) K/uL MPV 10.4 (9.4-12.4) fL Immature Gran % (Auto) 0.0 % Neut % (Auto) 52.2 % Lymph % (Auto) 32.6 % [place] % (Auto) 10.9 % Eos % (Auto) 3.7 % Baso % (Auto) 0.6 % Neut # (Auto) 1.83 (1.40-6.50) K/uL Lymph # (Auto) 1.14 L (1.20-3.40) K/uL [place] # (Auto) 0.38 (0.11-0.59) K/uL Eos # (Auto) 0.13 (0.00-0.50) K/uL Baso # (Auto) 0.02 (0.00-0.20) K/uL Immature Gran # (Auto) 0.00 L (0.01-0.20) K/uL PT (9.0-12.0) Seconds INR (0.9-1.1) Sodium (136-145) mmol/L Potassium (3.5-5.1) mmol/L Chloride (98-107) mmol/L Carbon Dioxide (21-32) mmol/L Anion Gap (3-11) BUN (6-23) mg/dl Creatinine (0.6-1.2) mg/dl Est Cr Clr Drug Dosing ml/min Est GFR ( Amer) ml/min Est GFR (Non-Af Amer) ml/min BUN/Creatinine Ratio (10-20) Glucose (70-99(Fasting)) mg/dl POC Glucose (70-99) mg/dl Calcium (8.6-10.3) mg/dl Magnesium (1.7-2.4) mg/dl Total Bilirubin (0.2-1.0) mg/dl AST (13-39) U/L ALT (7-52) U/L Alkaline Phosphatase (34-104) U/L Ammonia (18-72) umol/L Troponin I High Sens (0-14) pg/ml Total Protein (6.0-8.3) gm/dl Albumin (3.4-5.0) gm/dl Globulin (2.5-4.0) gm/dl Albumin/Globulin Ratio (0.9-2) Lipase (11-82) U/L Tumor Marker AFP TSH (0.300-4.500) uIu/ml Urine Color Urine Appearance (Clear) Urine pH (4.5-7.5) Ur Specific [place] (1.000-1.030) Urine Protein (Negative) Urine Glucose (UA) (Negative) Urine Ketones (Negative) Urine Blood (Negative) Urine Nitrite (Negative) Urine Bilirubin (Negative) Urine Urobilinogen (Negative) Ur Leukocyte Esterase (Negative) Urine WBC (Auto) (0-5) /hpf Urine RBC (Auto) (0-4) /hpf U Hyaline Cast (Auto) (0-5) /lpf U Epithel Cells (Auto) (0-5) /lpf Urine Bacteria (Auto) (Negative) Urine Yeast Lyme Disease IgG Ab (Negative) Lyme IgG (Western Blot) Lyme IgG 18 kDa Band Lyme IgG 23 kDa Band Lyme IgG 28 kDa Band Lyme IgG 30 kDa Band Lyme IgG 39 kDa Band Lyme IgG 41 kDa Band Lyme IgG 45 kDa Band Lyme IgG 58 kDa Band Lyme IgG 66 kDa Band Lyme IgG 93 kDa Band Lyme IgM Ab (WB) Lyme Disease IgM Ab (Negative) Lyme IgM 23 kDa Band Lyme IgM 39 kDa Band Lyme IgM 41 kDa Band
[2023-03-21] MEDS ORDERED: LEVOTHYROXINE SODIUM 75 MCG TABLET PO SCH (18:00)
[2023-03-21] MEDS ORDERED: ATORVASTATIN 10 MG TAB PO SCH (21:00)
[2023-03-21] MEDS: APIXABAN 2.5 MG TAB PO SCH (21:04)
[2023-03-21] MEDS: PANTOprazole 40 MG TAB PO SCH (21:05)
[2023-03-22 08:13] LABS: Hematocrit (blood only) 38.7 % (37.0-47.0); Hemoglobin 12.7 g/dl (12.0-16.0); Mean Corpuscular Hemoglobin 32.2 pg (25.0-34.0); Mean Corpuscular Hgb Conc 32.8 g/dL (32.0-36.0); Mean Corpuscular Volume 98.2 fL (80.0-100.0); Mean Platelet Volume 10.7 fL (9.4-12.4); Platelet Count 94 K/uL (130-400); RDW Standard Deviation 50.7 fL (36.4-46.3); Red Blood Count 3.94 M/uL (4.20-5.40); White Blood Count 3.24 K/ul (4.8-10.8)
[2023-03-22 08:19] LABS: Albumin Globulin Ratio 0.6 (0.9-2); Albumin Level 2.8 gm/dl (3.4-5.0); BUN Creatinine Ratio 26.9 (10-20); Bilirubin,Total 0.8 mg/dl (0.2-1.0); Calcium 8.9 mg/dl (8.6-10.3); Creatinine Clr Calc Pharmacy 26.6 ml/min; Est GFR (African American) 30.1 ml/min; Globulin 4.7 gm/dl (2.5-4.0); Magnesium 1.6 mg/dl (1.7-2.4); Potassium 4.1 mmol/L (3.5-5.1); Total Protein 7.5 gm/dl (6.0-8.3)
--- NOTE | 2023-03-22 08:54 | Gastroenterology Progress Note ---
Supervising physician's note Case discussed with Anamika Baca NP. Chart reviewed. Patient not seen today She is stable. No further disorientation or weakness. Okay with us to go home Fawad Gibson Jr, MD, [facility] Date of Service March 22, 2023 Assessment & Plan (1) Generalized weakness: Plan: Generalized weakness: Patient admitted with ammonia level 245 with weakness and slurring of speech consistent with mild encephalopathy. She is back to her baseline this morning and ammonia level is 89. She reports compliance with lactulose and rifaximin at home. AFP pending. No barriers identified for discharge from GI perspective. Will arrange outpatient GI follow-up at discharge. Case reviewed with Dr. Gibson. Please refer to supervising physician addendum for further recommendations. I have spent 15 minutes of discrete time performing the activities of this visit which include but are not limited to review of the medical record, obtaining a history, physical exam, and entering information in the electronic record. Admission and Anticipated Discharge Date Admission Date: March 21, 2023 Subjective The patient is alert oriented to person place and time this morning. She has no voiced GI complaints. Reports that she has not had bowel movement since admission. Denies abdominal pain, nausea, vomiting. Out of bed ambulating with use of walker. Good appetite. Review of Systems Review of Systems: All systems reviewed & are unremarkable except as noted in Subjective Physical Exam Gastrointestinal (Abdomen): normal bowel sounds, soft, nontender, no h epatosplenomegaly Results & Data Vital Signs (Past 12 Hours) Vital Signs Temp Pulse Pulse Resp BP Pulse Ox O2 Del Method 03/22/23 07:17 36.5 C 52 L 18 143/77 H 96 Room Air 03/21/23 22:07 56 L 03/22/23 03:30 36.5 C 59 L 16 153/75 H 98 Room Air 03/21/23 21:00 Room Air 03/21/23 22:45 36.6 C 51 L 18 130/72 96 Room Air Laboratory Results Laboratory Results - last 24 hr 03/21/23 03/21/23 03/21/23 08:43 11:32 11:32 WBC RBC Hgb Hct MCV MCH MCHC RDW Std Deviation RDW Coeff of Leah Plt Count MPV Sodium Potassium Chloride Carbon Dioxide Anion Gap BUN Creatinine Est Cr Clr Drug Dosing Est GFR ( Amer) Est GFR (Non-Af Amer) BUN/Creatinine Ratio Glucose POC Glucose Calcium Magnesium Total Bilirubin AST ALT Alkaline Phosphatase Ammonia Total Protein Albumin Globulin Albumin/Globulin Ratio Tumor Marker AFP TSH 3.828 Urine Color Yellow Urine Appearance Cloudy A Urine pH 5.5 Ur Specific [place] 1.013 Urine Protein 1+ H Urine Glucose (UA) Negative Urine Ketones Negative Urine Blood 1+ H Urine Nitrite Negative Urine Bilirubin Negative Urine Urobilinogen Negative Ur Leukocyte Esterase 2+ H Urine WBC (Auto) >30 H Urine RBC (Auto) 0-4 U Hyaline Cast (Auto) 1-5 U Epithel Cells (Auto) >30 H Urine Bacteria (Auto) 2+ H Urine Yeast Not Reportable Lyme Disease IgG Ab Positive A Lyme IgG (Western Blot) Lyme IgG 18 kDa Band Lyme IgG 23 kDa Band Lyme IgG 28 kDa Band Lyme IgG 30 kDa Band Lyme IgG 39 kDa Band Lyme IgG 41 kDa Band Lyme IgG 45 kDa Band Lyme IgG 58 kDa Band Lyme IgG 66 kDa Band Lyme IgG 93 kDa Band Lyme IgM Ab (WB) Lyme Disease IgM Ab Equivocal A Lyme IgM 23 kDa Band Lyme IgM 39 kDa Band Lyme IgM 41 kDa Band 03/21/23 03/21/23 03/21/23 11:32 11:32 12:00 WBC RBC Hgb Hct MCV MCH MCHC RDW Std Deviation RDW Coeff of Leah Plt Count MPV Sodium Potassium Chloride Carbon Dioxide Anion Gap BUN Creatinine Est Cr Clr Drug Dosing Est GFR ( Amer) Est GFR (Non-Af Amer) BUN/Creatinine Ratio Glucose POC Glucose 144 H Calcium Magnesium Total Bilirubin AST ALT Alkaline Phosphatase Ammonia Total Protein Albumin Globulin Albumin/Globulin Ratio Tumor Marker AFP Pending TSH Urine Color Urine Appearance Urine pH Ur Specific [place] Urine Protein Urine Glucose (UA) Urine Ketones Urine Blood Urine Nitrite Urine Bilirubin Urine Urobilinogen Ur Leukocyte Esterase Urine WBC (Auto) Urine RBC (Auto) U Hyaline Cast (Auto) U Epithel Cells (Auto) Urine Bacteria (Auto) Urine Yeast Lyme Disease IgG Ab Lyme IgG (Western Blot) Pending Lyme IgG 18 kDa Band Pending Lyme IgG 23 kDa Band Pending Lyme IgG 28 kDa Band Pending Lyme IgG 30 kDa Band Pending Lyme IgG 39 kDa Band Pending Lyme IgG 41 kDa Band Pending Lyme IgG 45 kDa Band Pending Lyme IgG 58 kDa Band Pending Lyme IgG 66 kDa Band Pending Lyme IgG 93 kDa Band Pending Lyme IgM Ab (WB) Pending Lyme Disease IgM Ab Lyme IgM 23 kDa Band Pending Lyme IgM 39 kDa Band Pending Lyme IgM 41 kDa Band Pending 03/21/23 03/21/23 03/22/23 17:11 20:14 07:38 WBC 3.24 L RBC 3.94 L Hgb 12.7 Hct 38.7 MCV 98.2 MCH 32.2 MCHC 32.8 RDW Std Deviation 50.7 H RDW Coeff of Leah 14.0 Plt Count 94 L MPV 10.7 Sodium Potassium Chloride Carbon Dioxide Anion Gap BUN Creatinine Est Cr Clr Drug Dosing Est GFR ( Amer) Est GFR (Non-Af Amer) BUN/Creatinine Ratio Glucose POC Glucose 161 H 166 H Calcium Magnesium Total Bilirubin AST ALT Alkaline Phosphatase Ammonia Total Protein Albumin Globulin Albumin/Globulin Ratio Tumor Marker AFP TSH Urine Color Urine Appearance Urine pH Ur Specific [place] Urine Protein Urine Glucose (UA) Urine Ketones Urine Blood Urine Nitrite Urine Bilirubin Urine Urobilinogen Ur Leukocyte Esterase Urine WBC (Auto) Urine RBC (Auto) U Hyaline Cast (Auto) U Epithel Cells (Auto) Urine Bacteria (Auto) Urine Yeast Lyme Disease IgG Ab Lyme IgG (Western Blot) Lyme IgG 18 kDa Band Lyme IgG 23 kDa Band Lyme IgG 28 kDa Band Lyme IgG 30 kDa Band Lyme IgG 39 kDa Band Lyme IgG 41 kDa Band Lyme IgG 45 kDa Band Lyme IgG 58 kDa Band Lyme IgG 66 kDa Band Lyme IgG 93 kDa Band Lyme IgM Ab (WB) Lyme Disease IgM Ab Lyme IgM 23 kDa Band Lyme IgM 39 kDa Band Lyme IgM 41 kDa Band 03/22/23 03/22/23 03/22/23 07:38 07:38 08:22 WBC RBC Hgb Hct MCV MCH MCHC RDW Std Deviation RDW Coeff of Leah Plt Count MPV Sodium 139 Potassium 4.1 Chloride 107 Carbon Dioxide 28 Anion Gap 4 BUN 49 H Creatinine 1.82 H Est Cr Clr Drug Dosing 26.6 Est GFR ( Amer) 30.1 Est GFR (Non-Af Amer) 26.0 BUN/Creatinine Ratio 26.9 H Glucose 130 H POC Glucose 135 H Calcium 8.9 Magnesium 1.6 L Total Bilirubin 0.8 AST 40 H ALT 25 Alkaline Phosphatase 112 H Ammonia 89.0 H Total Protein 7.5 Albumin 2.8 L Globulin 4.7 H Albumin/Globulin Ratio 0.6 L Tumor Marker AFP TSH Urine Color Urine Appearance Urine pH Ur Specific [place] Urine Protein Urine Glucose (UA) Urine Ketones Urine Blood Urine Nitrite Urine Bilirubin Urine Urobilinogen Ur Leukocyte Esterase Urine WBC (Auto) Urine RBC (Auto) U Hyaline Cast (Auto) U Epithel Cells (Auto) Urine Bacteria (Auto) Urine Yeast Lyme Disease IgG Ab Lyme IgG (Western Blot) Lyme IgG 18 kDa Band Lyme IgG 23 kDa Band Lyme IgG 28 kDa Band Lyme IgG 30 kDa Band Lyme IgG 39 kDa Band Lyme IgG 41 kDa Band Lyme IgG 45 kDa Band Lyme IgG 58 kDa Band Lyme IgG 66 kDa Band Lyme IgG 93 kDa Band Lyme IgM Ab (WB) Lyme Disease IgM Ab Lyme IgM 23 kDa Band Lyme IgM 39 kDa Band Lyme IgM 41 kDa Band
[2023-03-22] MEDS ORDERED: NON-FORMULARY MEDICATION (Coenzyme Q10 200 mg capsule) PO SCH (09:00)
[2023-03-22] MEDS ORDERED: FUROSEMIDE 40 MG TAB PO SCH (09:00)
[2023-03-22] MEDS ORDERED: SPIRONOLACTONE 25 MG TAB PO SCH (09:00)
[2023-03-22] MEDS ORDERED: MULTIVITAMIN TAB PO SCH (09:00)
[2023-03-22] MEDS ORDERED: TOCOPHERYL, DL-ALPHA 400 UNITS 180 MG CAP PO SCH (09:00)
[2023-03-22] MEDS ORDERED: CHOLECALCIFEROL 1,000 UNITS 25 MCG TAB PO SCH (09:00)
[2023-03-22] MEDS: cefTRIAXone SODIUM 2,000 MG in DEXTROSE 5% 50 ML IV SCH (09:57)
[2023-03-22] MEDS: PANTOprazole 40 MG TAB PO SCH (10:41)
[2023-03-22] MEDS: MAGNESIUM SULFATE / D5W 1 GM/100 ML BAG IV SCH ×2 (10:41→13:14)
[2023-03-22] MEDS: APIXABAN 2.5 MG TAB PO SCH (10:42)
[2023-03-22] MEDS: PROPRANOLOL HCL 10 MG TAB PO SCH ×2 (10:42→14:24)
[2023-03-22] MEDS: rifAXIMin 550 MG TABLET PO SCH (10:42)
[2023-03-22] MEDS: DOXYCYCLINE HYCLATE 100 MG CAP PO SCH (10:43)
[2023-03-22] MEDS: FUROSEMIDE 20 MG TAB PO SCH (10:46)
[2023-03-22] MEDS: MAGNESIUM CHLORIDE W/CALCIUM 64MG DELAYED REL TAB PO SCH ×2 (10:52→14:23)
[2023-03-22] MEDS: LACTULOSE SYRUP 30 GM/45 ML UDP PO SCH ×2 (10:52→14:23)
--- NOTE | 2023-03-22 15:36 | Discharge Summary ---
Discharge Summary Date of Service March 22, 2023 Admission HPI Per Admitting Provider 77yo female presented with CC weakness, nausea, vomiting and suspicion for low mag/liver problems given similar presentations with such in the past. Per ER, seemed well overnight but then nauseated, vomiting, fatigued, and a little more confused this morning and daughter suspected either something with her magnesium or ammonia/liver problems. PMHx significant for CHF, Cirrhosis, CKD III, GERD, PE (IVC filter in place), GI bleeding, afib, strep bacteremia in July 2022 (completed 6 weeks IV Rocephin, several blood cultures since that time negative). Evaluated in A2, daughter at bedside. Daughter reports patient had been using the bathroom but was too weak to get up and her sons boyfriend brought back the computer chair to help get her from the bathroom back to the living room. Trial ice chips/sips, no vomiting reported. Denied overt abdominal pain. She reports taking her synthroid in the morning in the past but with AM vomiting not sure how much absorption she is getting. They note that Dr Pierce has advised them to have Ms Dudley take this medication in the evening about an hour after she has eaten/finished her medications to see if improvement in absorption given chronic elevation in TSH. Per daughter, had been stopped on her Pepcid and put on a new medication -- review of medication list w/ protonix twice daily now. She is on mag-chloride 2 tablets three times a day for low magnesium and also on lactulose 30g BID for elevated ammonia. Had been restarted on her eliquis, reduced to 2.5mg BID. Denied any blood in stools. Reports she is not having any chest pain or shortness of breath, no urinary symptoms reported or fever/chills. Of note, she does endorse history of back surgery and chronic back pain but typically gets around alright with a walker. Discussed admission for mag replacement/treatment of ammonia and therapy evaluations. She is not thrilled about being in the hospital and would like to be home in her own bed. Discussed hopefully will be able to get her in/out as quickly as possible. Confirmed she is a DNR/DNI. ER Course; ammonia 245, mag 1.4. IV replacement for magnesium. UA pending CXR w/o acute finding, cardiomegaly noted. Principal Dx & Hospital Course #1 = Principal Diagnosis (1) Generalized weakness: Suspect similar to prior admissions w/ low mag/elevated ammonia, UTI, hypomagnesemia -- see admission January 2023. MRI imaging negative for acute stroke (noting meningioma/enlargement of pituitary) Mag IV replacement ordered, Continue PO TID replacement as taking at home during this time as well Treated UTI and possible Lyme with antibiotics Gave lactulose and had multipl eBMs--> NH3 improved and mental status completely normal shortly after admission TSH normal Given back pain complaints, checked blood cultures (prior + strep bacteremia but has had prior negative blood cultures since that time -- imaging January w/ T8-T0 irregularity, discitis/osteo not excluded) but no fevers at home and Blood cxs remained no growth (2) Hyperammonemia: 245 on admission with hepatic encephalopathy-mild, now resolved continues on rifaximin BID, started last admission. (3) Hypomagnesemia: 2/2 Protonix use, lasix use replaced with IV and po consider reducing dose of Protonix and lasix as outpt--> defer to GI continue po tid supplement (4) Hypothyroidism: TSH normal continue home dose LT4 (5) Nausea & vomiting: chronic issue, occuring in the AM but had increased weakness this morning as above. Recent stroke work up -- see admission January 2023 tolerating reg diet (6) Chronic diastolic heart failure: ECHO in November w/ severe TR, reduced RV function (appears chronic finding), dilated RV/RA. low normal EF 50%, MR, (at least moderate reported) hx aortic stenosis Monitor I&O, daily weights continue lasix, aldactone, BP control (7) Chronic kidney disease, stage III (moderate): BUN/Cr appearing around baseline to slightly above at 1.8 on day of discharge Renal dose meds/avoid nephrotoxins as able Monitor renal function as outpt (8) PAF (paroxysmal atrial fibrillation): in NSR here continue on eliquis 2.5 mg biD (hx GI bleeding, hgb level appears stable, denies bleeding) (9) Type 2 DM with CKD stage 4 and hypertension: Last A1c 6.0, not on any medications Glu 150 on admission labs Can monitor BSG AC/HS while inpatient, add SSI if needed (10) 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 to alcohol: noted, following with [facility], consulted as above continue spironolactone, lasix, lactulose, rifaximin as above check AFP -> pending f/u GI after discharge (11) Aortic stenosis: noted, monitor volume status (12) UTI (urinary tract infection): UA abnormal but Ur cx mixed ora give 7 days of abx-had 2 doses ceftriaxone and now 5 more days of keflex on dc Plan DVT proph: Eliquis 2.5mg BID Dispo-dc to home discussed care with neice and data processing mechanic on phone Discharge Exam Constitutional WD/WN, vitals as above Respiratory normal respiratory effort, lungs clear to auscultation Cardiovascular Rate/Rhythm: regular rate and regular rhythm Heart Sounds: + murmur (2/6 SHAWN RUSB) Gastrointestinal (Abdomen) normal bowel sounds, soft, nontender, no hepatosplenomegaly Updated Medication List Medication Instructions Recorded Confirmed Type cholecalciferol (vitamin D3) 50 2,000 unit PO QAM 07/01/18 03/21/23 History mcg (2,000 unit) capsule (Vitamin D3) multivitamin 1 tab PO QAM 10/14/19 03/21/23 History vitamin E 268 mg (400 unit) capsule 400 unit PO QAM 08/14/20 03/21/23 History coenzyme Q10 200 mg capsule 200 mg PO DAILY 11/01/21 03/21/23 History atorvastatin 10 mg tablet 10 mg PO HS #90 tabs 09/08/22 03/21/23 Rx magnesium chloride 64 mg 128 mg PO TID #540 tabs 09/08/22 03/21/23 Rx (magnesium chloride) tablet,delayed release furosemide 40 mg tablet 40 mg PO QAM 11/21/22 03/21/23 History spironolactone 25 mg tablet 25 mg PO DAILY #90 tabs 12/06/22 03/21/23 Rx furosemide 40 mg tablet 20 mg PO QDL 12/28/22 03/21/23 History propranolol 10 mg tablet 10 mg PO TID 90 days #270 tabs 01/23/23 03/21/23 Rx lactulose 10 gram/15 mL oral 30 g (45 mL) PO BID 90 days #8,100 01/30/23 03/21/23 Rx solution mL pantoprazole 40 mg tablet,delayed 40 mg PO BID #180 tabs 02/07/23 03/21/23 Rx release apixaban 2.5 mg tablet (Eliquis) 2.5 mg PO BID #60 tabs 02/13/23 03/21/23 Rx rifaximin 550 mg tablet (Xifaxan) 550 mg PO BID 30 days #60 tabs 02/16/23 03/21/23 Rx levothyroxine 75 mcg tablet 75 mcg PO DAILY #90 tabs 03/01/23 03/21/23 Rx cephalexin 500 mg capsule 500 mg PO BID #10 caps 03/22/23 Rx doxycycline hyclate 100 mg capsule 100 mg PO BID #18 caps 03/22/23 Rx Hospital Stay Data Consultations 03/21/23 08:29 ED Decision to Admit Stat 03/21/23 11:24 Consult Gastroenterology Routine Pending Results Patient Have Any Pending Studies at Discharge: Yes (AFP) Discharge Instructions Given to Patient (Per Discharging Provider) Please continue on the antibiotic called cephalexin for your UTI for 5 more days. You had a blood test that was positive for Lyme disease but this may be from a previous Lyme infection. Regardless, you should take 9 more days of an an tibiotic called doxycycline twice a day for Lyme disease. Make sure you are moving your bowels at least 2-3 times per day to keep your ammonia levels down. Your magnesium levels remain low likely due to your furosemide use as well as Protonix (can keep you from absorbing magnesium). Continue taking the magnesium tablets and follow up with your PCP. You may need to have your furosemide dose reduced and your Protonix dose reduced. Total Time Total Time Spent Total Time Spent (In Minutes): 40 min Coding Level of Care Code 12281 INP/OBS DISCH >30 MIN Diagnoses Generalized weakness R53.1 Hyperammonemia E72.20 Hypomagnesemia E83.42 Hypothyroidism E03.9 Nausea & vomiting R11.2 Chronic diastolic heart failure I50.32 Chronic kidney disease, stage III (moderate) N18.30 PAF (paroxysmal atrial fibrillation) I48.0 Type 2 DM with CKD stage 4 and hypertension E11.22; I12.9; N18.4 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 to alcohol K74.60 Aortic stenosis I35.0 UTI (urinary tract infection) N39.0
--- NOTE | 2023-03-24 06:05 | Electrocardiogram Report ---
Test Reason : Blood Pressure : / mmHG Vent. Rate : 064 BPM Atrial Rate : 064 BPM P-R Int : 158 ms QRS Dur : 146 ms QT Int : 476 ms P-R-T Axes : 002 -49 -11 degrees QTc Int : 491 ms Sinus rhythm with marked sinus arrhythmia Right bundle branch block Left anterior fascicular block Bifascicular block Minimal voltage criteria for LVH, may be normal variant Abnormal ECG When compared with ECG of 14-FEB-2023 04:20, Premature ventricular complexes are no longer Present Inverted T waves have replaced nonspecific T wave abnormality in Inferior leads Confirmed by Elder Rodriguez [id number] on 03/24/2023 6:05:08 AM Referred By: Confirmed By:Elder Rodriguez
== END 2023-03-22 17:24 | disposition home or self-care (01) | DRG 690 ==
LOC: ED 06:02 → 2N 09:09

== ENCOUNTER 2023-06-17 21:17 | Inpatient (IN) ==
--- NOTE | 2023-06-17 21:42 | Emergency Department Note ---
History of Present Illness General Chief complaint: Weakness Time Seen by Provider: 06/17/23 21:25 History of Present Illness This 77-year-old female with a history of heart failure and [place] with a history of low magnesium presents the ER for increasing fatigue and weakness for the past 2 days. She is concerned her magnesium might be low again. Patient denies chest pain, dyspnea, fever, chills, cough, congestion, abdominal pain, vomiting, diarrhea, numbness, tingling. No other concerns per patient. She feels too weak to care for herself. Home Medications Medication Instructions Recorded Confirmed Type cholecalciferol (vitamin D3) 50 2,000 unit PO QAM 07/01/18 06/17/23 History mcg (2,000 unit) capsule (Vitamin D3) multivitamin 1 tab PO QAM 10/14/19 06/17/23 History vitamin E 268 mg (400 unit) capsule 400 unit PO QAM 08/14/20 06/17/23 History coenzyme Q10 200 mg capsule 200 mg PO DAILY 11/01/21 06/17/23 History atorvastatin 10 mg tablet 10 mg PO HS #90 tabs 09/08/22 06/17/23 Rx magnesium chloride 64 mg 128 mg (2 x 64 mg) PO TID #540 tabs 09/08/22 06/17/23 Rx (magnesium chloride) tablet,delayed release furosemide 40 mg tablet 40 mg PO QAM 11/21/22 06/17/23 History spironolactone 25 mg tablet 25 mg PO DAILY #90 tabs 12/06/22 06/17/23 Rx furosemide 40 mg tablet 20 mg PO QPM 12/28/22 06/17/23 History propranolol 10 mg tablet 10 mg PO TID 90 days #270 tabs 01/23/23 06/17/23 Rx lactulose 10 gram/15 mL oral 30 g (45 mL) PO BID 90 days #8,100 01/30/23 06/17/23 Rx solution mL apixaban 2.5 mg tablet (Eliquis) 2.5 mg PO BID #60 tabs 02/13/23 06/17/23 Rx levothyroxine 75 mcg tablet 75 mcg PO DAILY #90 tabs 03/01/23 06/17/23 Rx pantoprazole 40 mg tablet,delayed 40 mg PO BID 11/25/23 11/25/23 History release rifaximin 550 mg tablet (Xifaxan) 550 mg PO BID 06/17/23 06/17/23 History Allergies Allergy/AdvReac Type Severity Reaction Status Date / Time No Known Allergies Allergy Verified 06/17/23 23:34 Past Med/Surg History Medical History Rectal bleeding Hypomagnesemia Generalized weakness Stage 3b chronic kidney disease Nausea vomiting and diarrhea Dizziness Acute hyperkalemia Encephalopathy acute Nausea & vomiting Rhinovirus Acute on chronic diastolic heart failure Volume overload Hepatic encephalopathy Lactate blood increase Vomiting and diarrhea Cough Wheezing Weakness DVT (deep venous thrombosis) Presence of IVC filter Elevated troponin EMY (acute kidney injury) Thrombocytopenia Chronic deep vein thrombosis (DVT) Fever Pulmonary embolism 2018 > no known cause > Filter to right groin Diverticular hemorrhage resolved GI bleed none at present Esophageal varices determined by endoscopy Monoclonal gammopathy Osteoarthritis GERD (gastroesophageal reflux disease) Migraine Vertigo Surgical History History of laparoscopic cholecystectomy History of section x3 History of bilateral breast reduction surgery History of dilatation and curettage History of carpal tunnel release of both wrists History of total left knee replacement (TKR) History of total right knee replacement (TKR) History of lumbar spinal fusion hardware in place History of colonoscopy History of esophagogastroduodenoscopy (EGD) History of tooth extraction all teeth History of tonsillectomy History of bilateral cataract extraction Family History Mother Family history of diabetes mellitus Brother Family history of diabetes mellitus 3 brothers Colorectal cancer Myocardial infarction x 2 Father Myocardial infarction Denies family history of Ovarian cancer Prostate cancer Breast cancer Social History Smoking Status: Never smoker Tobacco Type: Cigarettes Age Started Using Tobacco: 15; Age Quit Using Tobacco: 21; Cigarettes Per Day: stopped 55 years ago; Second Hand Exposure: No; Do You Dip or Chew Tobacco: No; Hx Alcohol Use: No Hx Substance Use: No Preferred Language: Serbian Communication Ability: Effective Visual Impairment: Limited Hearing Ability: Normal Scratcher Required: No Beliefs That Will Affect Care: None marital status: / Current Living Situation: Family Current Living Situation Comment: lives with niece current occupational status: retired How many Children do You have: 3 Feels Safe at Home: Yes Childhood Exposure to Second-Hand Smoke: Yes Diet: regular caffeine: Yes (tea) during the past year weight has: remained stable Dental Care, Regularly: No Physical Activity Frequency: Does not Exercise Seatbelt Use: always Sunscreen Use: No Do you think of yourself as: straight/heterosexual Gender Identity: Female Assistive Devices: Hospital Bed, Walker and Other Review of Systems A total of 10 systems reviewed and were otherwise negative Physical Exam Vital Signs Vital Signs - 24 hr 06/17/23 21:19 06/17/23 21:28 06/17/23 21:38 Temperature 37.4 C Temperature Source Oral Pulse Rate 99 H Pulse Rate [Apical] Respiratory Rate 23 Respiratory Effort / Characteristics Non-Labored Spontaneous Respiratory Depth Normal Respiratory Pattern Regular Blood Pressure 146/86 H Blood Pressure [Right Arm] Blood Pressure Mean 106 Blood Pressure Mean [Right Arm] Blood Pressure Position Semi-fowlers Blood Pressure Position [Right Arm] Pulse Oximetry 97 97 Oxygen Delivery Method Room Air Room Air Room Air Sepsis Recent Fever Within 48 Hours No Sepsis New/Unexplained Change in Mental Status No Sepsis Action Taken by Nursing No Action Required 06/17/23 21:38 06/17/23 23:01 Temperature Temperature Source Pulse Rate 89 Pulse Rate [Apical] 66 Respiratory Rate 22 Respiratory Effort / Characteristics Non-Labored Spontaneous Respiratory Depth Normal Respiratory Pattern Regular Blood Pressure Blood Pressure [Right Arm] 130/74 Blood Pressure Mean Blood Pressure Mean [Right Arm] 92 Blood Pressure Position Blood Pressure Position [Right Arm] Semi-fowlers Pulse Oximetry 97 Oxygen Delivery Method Room Air Sepsis Recent Fever Within 48 Hours Sepsis New/Unexplained Change in Mental Status Sepsis Action Taken by Nursing VITALS: Vitals are noted on the nurse's note and reviewed by myself. Vital signs stable. GENERAL: Pleasant elderly female following commands, in no acute distress, nondiaphoretic, well-developed well-nourished. SKIN: The skin was without rashes, erythema, edema, or bruising. There is no tenting of the skin. Capillary reflex less than 2 seconds. HEAD: Normocephalic atraumatic. EARS: External auditory canals clear, EYES: Pupils equal round and reactive to light and accommodation. Conjunctivae without injection, sclerae without icterus. Extraocular movements intact. NOSE: Patent, turbinates without inflammation or discharge. MOUTH: Mucous membranes moist. Pharynx without erythema or exudate. Uvula midline. Airway patent. Tongue does not deviate. NECK: Supple without nuchal rigidity. No lymphadenopathy. No thyromegaly. Cervical spine is nontender. No JVD. HEART: Regular rate and rhythm LUNGS: Clear to auscultation bilaterally without wheezes, rales or rhonchi. No retractions or accessory muscle use. ABDOMEN: Positive bowel sounds x 4. Normal tympanic percussion. Soft, nontender, without masses or organomegaly. Graff sign negative. No guarding or rebound tenderness. No CVA tenderness MUSCULOSKELETAL: No muscle atrophy, erythema noted. NEURO: Patient was alert and oriented to person place and time. Normal sensation to light and sharp touch. No focal neurological deficits. Course Administered Medications Discontinued Medications Magnesium Sulfate/Dextrose (Magnesium Sulfate / D5w) 1 gm in 100 mls @ 100 mls/hr IV Q1H ARMANDO Stop: 06/18/23 00:37 Last Infusion: 06/18/23 01:14 Dose: Infused Documented By: Admin: 06/18/23 00:10 Dose: 100 mls/hr Documented By: Infusion: 06/18/23 00:04 Dose: Infused Documented By: Admin: 06/17/23 23:04 Dose: 100 mls/hr Documented By: AARON Medical Decision Making Medical Records Attestation: I reviewed the patient's medical records. Home Medications Current Medication List: was personally reviewed by me Laboratory Data Attestation: I reviewed the patient's lab results. 06/17/23 21:32 06/17/23 21:32 Lab Results 06/17/23 06/17/23 06/17/23 Range/Units 21:32 22:00 22:50 WBC 8.06 (4.8-10.8) K/ul RBC 3.99 L (4.20-5.40) M/uL Hgb 12.9 (12.0-16.0) g/dl Hct 38.5 (37.0-47.0) % MCV 96.5 (80.0-100.0) fL MCH 32.3 (25.0-34.0) pg MCHC 33.5 (32.0-36.0) g/dL RDW Std Deviation 45.6 (36.4-46.3) fL RDW Coeff of Leah 12.8 (11.5-14.5) % Plt Count 89 L (130-400) K/uL MPV 11.3 (9.4-12.4) fL Immature Gran % (Auto) 0.2 % Neut % (Auto) 81.3 % Lymph % (Auto) 5.8 % [place] % (Auto) 10.3 % Eos % (Auto) 2.0 % Baso % (Auto) 0.4 % Neut # (Auto) 6.55 H (1.40-6.50) K/uL Lymph # (Auto) 0.47 L (1.20-3.40) K/uL Franklin # (Auto) 0.83 H (0.11-0.59) K/uL Eos # (Auto) 0.16 (0.00-0.50) K/uL Baso # (Auto) 0.03 (0.00-0.20) K/uL Immature Gran # (Auto) 0.02 (0.01-0.20) K/uL Sodium 134 L (136-145) mmol/L Potassium 4.3 (3.5-5.1) mmol/L Chloride 105 (98-107) mmol/L Carbon Dioxide 23 (21-32) mmol/L Anion Gap 6 (3-11) BUN 41 H (6-23) mg/dl Creatinine 1.52 H (0.6-1.2) mg/dl Est Cr Clr Drug Dosing 31.3 ml/min Est GFR ( Amer) 37.4 ml/min Est GFR (Non-Af Amer) 32.3 ml/min BUN/Creatinine Ratio 27.0 H (10-20) Glucose 190 H (70-99(Fasting)) mg/dl Calcium 9.4 (8.6-10.3) mg/dl Magnesium 1.5 L (1.7-2.4) mg/dl Total Bilirubin 1.0 (0.2-1.0) mg/dl AST 36 (13-39) U/L ALT 20 (7-52) U/L Alkaline Phosphatase 97 (34-104) U/L Total Creatine Kinase 39 (26-192) U/L Troponin I High Sens 13.8 (0-14) pg/ml Total Protein 8.0 (6.0-8.3) gm/dl Albumin 3.1 L (3.4-5.0) gm/dl Globulin 4.9 H (2.5-4.0) gm/dl Albumin/Globulin Ratio 0.6 L (0.9-2) TSH 2.983 (0.300-4.500) uIu/ml Urine Color Yellow Urine Appearance Clear (Clear) Urine pH 5.0 (4.5-7.5) Ur Specific [place] 1.013 (1.000-1.030) Urine Protein 1+ H (Negative) Urine Glucose (UA) Negative (Negative) Urine Ketones Negative (Negative) Urine Blood 1+ H (Negative) Urine Nitrite Negative (Negative) Urine Bilirubin Negative (Negative) Urine Urobilinogen Negative (Negative) Ur Leukocyte Esterase Negative (Negative) Urine WBC (Auto) 1-5 (0-5) /hpf Urine RBC (Auto) 0-4 (0-4) /hpf U Hyaline Cast (Auto) 10-30 H (0-5) /lpf U Epithel Cells (Auto) 10-20 H (0-5) /lpf Urine Bacteria (Auto) Negative (Negative) Adenovirus (PCR) Not Detected (NotDetected) B. pertussis DNA (PCR) Not Detected (NotDetected) B.parapertussis DNA PCR Not Detected (NotDetected) C. pneumoniae DNA (PCR) Not Detected (NotDetected) Coronavirus OC43 (PCR) Not Detected (NotDetected) Coronavirus HKU1 (PCR) Not Detected (NotDetected) Coronavirus 229E (PCR) Not Detected (NotDetected) SARS-CoV-2 (PCR) Not Detected (NotDetected) Coronavirus NL63 (PCR) Not Detected (NotDetected) Human Metapneumovir PCR Not Detected (NotDetected) Influenza Type A (PCR) Not Detected (NotDetected) Influenza Type B (PCR) Not Detected (NotDetected) M. pneumoniae (PCR) Not Detected (NotDetected) Parainfluenza 1 (PCR) Not Detected (NotDetected) Parainfluenza 2 (PCR) Not Detected (NotDetected) Parainfluenza 3 (PCR) Not Detected (NotDetected) Parainfluenza 4 (PCR) Not Detected (NotDetected) RSV (PCR) Not Detected (NotDetected) Entero/Rhino (PCR) Not Detected (NotDetected) Imaging Data Attestation: I personally reviewed and interpreted this imaging study as follows: MDM Narrative Prior records/ancillary studies reviewed and summarized above. Nursing notes reviewed. Additional history obtained from family. The patient's history was concerning for increasing weakness. Differential diagnosis: Etiologies such as metabolic, infection, hypo/hyperglycemia, electrolyte abnormalities, cardiac sources, intracerebral event, toxicologic, neurologic, as well as others were entertained. Physical examination: As above. ER treatment provided: IV Lock An order was placed for continuous cardiac monitoring. The monitor shows a rate of 60-100 with a sinus rhythm per my interpretation. Magnesium was ordered On reassessment the patient felt better. Diagnostics interpretation by me: ECG: Ordered for weakness EKG: Normal sinus, right bundle branch block, left anterior fascicular block, poor baseline, no acute ST-T wave changes, rate of 93. Impression normal sinus rhythm right bundle branch block with a left anterior fascicular block independently interpreted by myself The labs Independently Interpreted by myself revealed low magnesium and since replaced intravenously. Negative urine. Negative troponin Euthyroid Imaging studies: Chest x-ray with no acute consolidation, pneumothorax or free air per my independent interpretation Consultation: A consultation was placed with the hospitalist. The case was discussed and diagnostics were reviewed. The patient was evaluated in the ER for further treatment. Exam and history seem consistent with increasing weakness with low magnesium. Patient felt too weak to go home. Electrolytes were replaced as above. Medicine was consulted and case was discussed. Patient admitted to the medical service for further evaluation and treatment. Patient is agreeable. Negative urine. No pneumonia on x-ray. By the evaluation outlined above emergent etiologies such as infection, cardiac sources, intracerebral event, toxologic, neurologic, abnormalities blood glucose, metabolic, as well as others were deemed relatively unlikely. The pt informed about the findings as listed above. All questions were answered and pleased with the treatment. The chart was completed utilizing [employer] voice recognition software. Grammatical errors, random word insertions, pronoun errors, and incomplete sentences are an occassional consequence of this system due to software limitations, ambient noise, and hardware issues. Any formal questions or concerns about the content, text, or information contained within the body of this dictation should be directly addressed to the physician sales assistant entertainment and media for clarification. Impression & Plan Hypomagnesemia, Weakness Discharge Plan Visit Data Chief Complaint: Weakness ED Provider: Rell Hamilton ED Midlevel Provider: Fabiola Rhodes Discharge Problem: Hypomagnesemia, Weakness Patient Disposition: Admitted As Inpatient Condition: Fair Discharge Instructions Interventions: ED Discharge Assessment Last Done: 06/18/23 01:22
[2023-06-17 22:20] LABS: Basophils # (auto) 0.03 K/uL (0.00-0.20); Basophils % (auto) 0.4 %; Eosinophils # (auto) 0.16 K/uL (0.00-0.50); Hematocrit (blood only) 38.5 % (37.0-47.0); Hemoglobin 12.9 g/dl (12.0-16.0); Immature Granulocytes # (auto) 0.02 K/uL (0.01-0.20); Immature Granulocytes % (auto) 0.2 %; Lymphocytes # (auto) 0.47 K/uL (1.20-3.40); Lymphocytes % (auto) 5.8 %; Mean Corpuscular Hemoglobin 32.3 pg (25.0-34.0); Mean Corpuscular Hgb Conc 33.5 g/dL (32.0-36.0); Mean Corpuscular Volume 96.5 fL (80.0-100.0); Mean Platelet Volume 11.3 fL (9.4-12.4); Monocytes # (auto) 0.83 K/uL (0.11-0.59); Monocytes % (auto) 10.3 %; Neutrophils # (auto) 6.55 K/uL (1.40-6.50); Neutrophils % (auto) 81.3 %; Platelet Count 89 K/uL (130-400); RDW Coefficient of Variation 12.8 % (11.5-14.5); RDW Standard Deviation 45.6 fL (36.4-46.3); Red Blood Count 3.99 M/uL (4.20-5.40); White Blood Count 8.06 K/ul (4.8-10.8)
[2023-06-17 22:36] LABS: Albumin Globulin Ratio 0.6 (0.9-2); Albumin Level 3.1 gm/dl (3.4-5.0); Calcium 9.4 mg/dl (8.6-10.3); Creatinine Clr Calc Pharmacy 31.3 ml/min; Est GFR (African American) 37.4 ml/min; Est GFR (Non-African American) 32.3 ml/min; Globulin 4.9 gm/dl (2.5-4.0); Magnesium 1.5 mg/dl (1.7-2.4); Potassium 4.3 mmol/L (3.5-5.1); Troponin I High Sensitivity 13.8 pg/ml (0-14)
[2023-06-17 22:38] LABS: Thyroid Stimulating Hormone 2.983 uIu/ml (0.300-4.500)
[2023-06-17] MEDS: MAGNESIUM SULFATE / D5W 1 GM/100 ML BAG IV SCH (23:04)
[2023-06-17 23:07] LABS: Adenovirus PCR Not Detected (NotDetected); Bordetella parapertussis PCR Not Detected (NotDetected); Bordetella pertussis PCR Not Detected (NotDetected); Chlamydia pneumoniae PCR Not Detected (NotDetected); Coronavirus 229E PCR Not Detected (NotDetected); Coronavirus CoV-2 (COVID19)PCR Not Detected (NotDetected); Coronavirus HKU1 PCR Not Detected (NotDetected); Coronavirus NL63 PCR Not Detected (NotDetected); Coronavirus OC43PCR Not Detected (NotDetected); Human Metapneumovirus PCR Not Detected (NotDetected); Influenza A PCR Not Detected (NotDetected); Influenza B PCR Not Detected (NotDetected); Mycoplasma pneumoniae PCR Not Detected (NotDetected); Parainfluenza Virus 1 PCR Not Detected (NotDetected); Parainfluenza Virus 2 PCR Not Detected (NotDetected); Parainfluenza Virus 3 PCR Not Detected (NotDetected); Parainfluenza Virus 4 PCR Not Detected (NotDetected); Respiratory Syncytial VirusPCR Not Detected (NotDetected); Rhinovirus/Enterovirus PCR Not Detected (NotDetected)
[2023-06-17 23:12] LABS: Appearance Urine Clear (Clear); Bacteria Urine Automated Negative (Negative); Bilirubin Urine Negative (Negative); Blood Urine 1+ (Negative); Color Urine Yellow; Glucose Urine UA Negative (Negative); Ketones Urine Negative (Negative); Leukocyte Esterase Urine Negative (Negative); Nitrite Urine Negative (Negative); Protein Urine 1+ (Negative); RBC Urine Automated 0-4 /hpf (0-4); Specific Gravity Urine 1.013 (1.000-1.030); Urobilinogen Urine Negative (Negative)
--- NOTE | 2023-06-17 23:54 | History & Physical Report ---
Date of Service June 17, 2023 Assessment & Plan (1) Weakness: (2) Hypomagnesemia: (3) Anticoagulant long-term use: (4) Hypothyroidism: (5) Stage 3b chronic kidney disease: (6) PAF (paroxysmal atrial fibrillation): (7) Atrial fibrillation with rapid ventricular response: (8) Aortic stenosis: (9) Pituitary macroadenoma: (10) ROSALES (obstructive sleep apnea): (11) Diabetes mellitus with peripheral vascular disease: Plan Hypomagnesemia- Magnesium 1.5 on admission, and frequently test on a 1.3-1.6 range, but was up to 1.9 after repletion on 04/07/2023. Patient reports a usual diet She does take Protonix 40 mg p.o. twice daily and is on furosemide twice daily which may be a large part of the cause Change reflux medications and then check laboratories every morning Continue furosemide at current dosing, and continue Slow-Mag with calcium 120 mg p.o. 3 times daily GERD- Change pantoprazole 40 mg p.o. twice daily to 40 mg every morning, and add famotidine 20 mg p.o. 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 twice daily, propranolol, rifaximin and spironolactone Check an ammonia level Atrial fibrillation/CHF/long-term anticoagulant use- Continue apixaban, furosemide, magnesium chloride, propranolol CKD stage III- Creatinine 1.5 to, with base range 1.46-1.85 Follow serially Generalized fatigue- Patient has multiple likely contributing factors as above History of Present Illness Chief Complaint: The patient presents to the emergency department with complaint of generalized weakness and worsening fatigue over the past 2 days, similarly to when her magnesium has been low in the past Primary Care Provider: Jian Pierce, DO The patient is a 77-year-old female with a past medical history including hypomagnesemia, UTI, chronic diastolic heart failure, CKD stage IV, morbid obesity, PAF, diabetes mellitus, atrial fibrillation with RVR, infective endocarditis, aortic stenosis, MGUS, ROSALES and pituitary macroadenoma. Patient reports that she has had chronic issues with low magnesium, and when it becomes and particularly low, she develops symptoms that she has now. Significant laboratories: Magnesium 1.5, albumin 3.1, glucose 190, creatinine 1.52, platelets 89 [employer] testing negative From the ED patient received magnesium sulfate 2 g IV Allergies Allergy/AdvReac Type Severity Reaction Status Date / Time No Known Allergies Allergy Verified 06/17/23 23:34 Home Medications Medication Instructions Recorded Confirmed Type cholecalciferol (vitamin D3) 50 2,000 unit PO QAM 07/01/18 06/17/23 History mcg (2,000 unit) capsule (Vitamin D3) multivitamin 1 tab PO QAM 10/14/19 06/17/23 History vitamin E 268 mg (400 unit) capsule 400 unit PO QAM 08/14/20 06/17/23 History coenzyme Q10 200 mg capsule 200 mg PO DAILY 11/01/21 06/17/23 History atorvastatin 10 mg tablet 10 mg PO HS #90 tabs 09/08/22 06/17/23 Rx magnesium chloride 64 mg 128 mg (2 x 64 mg) PO TID #540 tabs 09/08/22 06/17/23 Rx (magnesium chloride) tablet,delayed release furosemide 40 mg tablet 40 mg PO QAM 11/21/22 06/17/23 History spironolactone 25 mg tablet 25 mg PO DAILY #90 tabs 12/06/22 06/17/23 Rx furosemide 40 mg tablet 20 mg PO QPM 12/28/22 06/17/23 History propranolol 10 mg tablet 10 mg PO TID 90 days #270 tabs 01/23/23 06/17/23 Rx lactulose 10 gram/15 mL oral 30 g (45 mL) PO BID 90 days #8,100 01/30/23 06/17/23 Rx solution mL apixaban 2.5 mg tablet (Eliquis) 2.5 mg PO BID #60 tabs 02/13/23 06/17/23 Rx levothyroxine 75 mcg tablet 75 mcg PO DAILY #90 tabs 03/01/23 06/17/23 Rx pantoprazole 40 mg tablet,delayed 40 mg PO BID 06/17/23 06/17/23 History release rifaximin 550 mg tablet (Xifaxan) 550 mg PO BID 06/17/23 06/17/23 History Past Med/Surg History Medical History Rectal bleeding Hypomagnesemia Generalized weakness Stage 3b chronic kidney disease Nausea vomiting and diarrhea Dizziness Acute hyperkalemia Encephalopathy acute Nausea & vomiting Rhinovirus Acute on chronic diastolic heart failure Volume overload Hepatic encephalopathy Lactate blood increase Vomiting and diarrhea Cough Wheezing Weakness DVT (deep venous thrombosis) Presence of IVC filter Elevated troponin EMY (acute kidney injury) Thrombocytopenia Chronic deep vein thrombosis (DVT) Fever Pulmonary embolism 2018 > no known cause > Filter to right groin Diverticular hemorrhage resolved GI bleed none at present Esophageal varices determined by endoscopy Monoclonal gammopathy Osteoarthritis GERD (gastroesophageal reflux disease) Migraine Vertigo Surgical History History of laparoscopic cholecystectomy History of section x3 History of bilateral breast reduction surgery History of dilatation and curettage History of carpal tunnel release of both wrists History of total left knee replacement (TKR) History of total right knee replacement (TKR) History of lumbar spinal fusion hardware in place History of colonoscopy History of esophagogastroduodenoscopy (EGD) History of tooth extraction all teeth History of tonsillectomy History of bilateral cataract extraction Family History Mother Family history of diabetes mellitus Brother Family history of diabetes mellitus 3 brothers Colorectal cancer Myocardial infarction x 2 Father Myocardial infarction Denies family history of Ovarian cancer Prostate cancer Breast cancer Social History Smoking Status: Never smoker Tobacco Type: Cigarettes Age Started Using Tobacco: 15; Age Quit Using Tobacco: 21; Cigarettes Per Day: stopped 55 years ago; Second Hand Exposure: No; Do You Dip or Chew Tobacco: No; Hx Alcohol Use: No Hx Substance Use: No Preferred Language: Albanian Communication Ability: Effective Visual Impairment: Limited Hearing Ability: Normal Car Repossessor Required: No Beliefs That Will Affect Care: None marital status: / Current Living Situation: Family Current Living Situation Comment: Lives with neice current occupational status: retired How many Children do You have: 3 Other Information That Helps Us Care for You: No Feels Safe at Home: Yes Safety Concerns: Feels Safe At This Time Childhood Exposure to Second-Hand Smoke: Yes Diet: regular caffeine: Yes (tea) during the past year weight has: remained stable Dental Care, Regularly: No Physical Activity Frequency: Does not Exercise Seatbelt Use: always Sunscreen Use: No Do you think of yourself as: straight/heterosexual Gender Identity: Female Assistive Devices: Denture - Upper, Denture - Lower, Glasses and Walker Assistive Devices Comment: dentures at home Review of Systems Review of Systems: The patient denies chest pain, palpitations, cough, lower extremity swelling, sore throat, fevers, chills, sweats, vomiting, diarrhea , constipation, abdominal pain, pelvic pain, blood in urine or stool, dysuria, urinary frequency or urgency, headache, memory loss, loss of consciousness, rash, abnormal bruising or bleeding, focal weakness, numbness or tingling in arms or legs, generalized arthralgias or myalgias, back or neck pain, or night sweats. The review of systems is otherwise negative other than for that already noted above, and at least 10 systems have been reviewed. Physical Exam Physical Exam: The patient is awake, alert and oriented 3, looks very fatigued, normocephalic and atraumatic, lying in bed and in no acute distress. HEENT--PERRL, EOMI, mucous membranes and oropharynx dry. Neck--supple. No JVD. No bruits. Thyroid normal, trachea midline, no adenopathy. Heart--normal S1 and S2. No murmurs, rubs or gallops. Lungs--clear bilaterally, no respiratory distress, no accessory muscle use. Abdomen--normal bowel sounds and soft. Nontender. Nondistended, no hernias or masses, no organomegaly. Extremities--no cyanosis or clubbing. No edema. Dermatologic--normal skin turgor, normal color, no abnormal lymph nodes, no rash. Neurologic--cranial nerves II through XII grossly intact. Rheumatologic--normal range of motion. Psychiatric--very fatigued but interactive Results & Data Results & Data Vital Signs (Past 12 Hours) Vital Signs Temp Pulse Pulse Resp BP BP Pulse Ox 06/17/23 23:01 66 22 130/74 97 06/17/23 21:38 89 06/17/23 21:38 97 06/17/23 21:28 06/17/23 21:19 37.4 C 99 H 23 146/86 H 97 O2 Del Method 06/17/23 23:01 Room Air 06/17/23 21:38 11/25/23 21:38 Room Air 06/17/23 21:28 Room Air 06/17/23 21:19 Room Air Laboratory Results Laboratory Results WBC 8.06 K/ul (4.8-10.8) 06/17/23 21: RBC 3.99 M/uL (4.20-5.40) L 06/17/23 21: Hgb 12.9 g/dl (12.0-16.0) 06/17/23 21: Hct 38.5 % (37.0-47.0) 06/17/23 21: MCV 96.5 fL (80.0-100.0) 06/17/23: MCH 32.3 pg (25.0-34.0) 06/17/23: MCHC 33.5 g/dL (32.0-36.0) 06/17/23: RDW Std Deviation 45.6 fL (36.4-46.3) 06/17/23: RDW Coeff of Leah 12.8 % (11.5-14.5) 06/17/23: Plt Count 89 K/uL (130-400) L 06/17/23: MPV 11.3 fL (9.4-12.4) 06/17/23: Immature Gran % (Auto) 0.2 % 06/17/23: Neut % (Auto) 81.3 % 06/17/23: Lymph % (Auto) 5.8 % 06/17/23: Stanley % (Auto) 10.3 % 06/17/23: Eos % (Auto) 2.0 % 06/17/23: Baso % (Auto) 0.4 % 06/17/23: Neut # (Auto) 6.55 K/uL (1.40-6.50) H 06/17/23: Lymph # (Auto) 0.47 K/uL (1.20-3.40) L 06/17/23: Stanley # (Auto) 0.83 K/uL (0.11-0.59) H 06/17/23: Eos # (Auto) 0.16 K/uL (0.00-0.50) 06/17/23 21:32 Baso # (Auto) 0.03 K/uL (0.00-0.20) 06/17/23 21:32 Immature Gran # (Auto) 0.02 K/uL (0.01-0.20) 06/17/23 21:32 Sodium 134 mmol/L (136-145) L 06/17/23 21:32 Potassium 4.3 mmol/L (3.5-5.1) 06/17/23 21: Chloride 105 mmol/L (98-107) 06/17/23 21: Carbon Dioxide 23 mmol/L (21-32) 06/17/23 21:32 Anion Gap 6 (3-11) 06/17/23 21: BUN 41 mg/dl (6-23) H 06/17/23 21: Creatinine 1.52 mg/dl (0.6-1.2) H 06/17/23 21:32 Est Cr Clr Drug Dosing 31.3 ml/min 06/17/23 21:32 Est GFR ( Amer) 37.4 ml/min 06/17/23 21: Est GFR (Non-Af Amer) 32.3 ml/min 06/17/23 21:32 BUN/Creatinine Ratio 27.0 (10-20) H 06/17/23 21: Glucose 190 mg/dl (70-99(Fasting)) H 06/17/23 21: Calcium 9.4 mg/dl (8.6-10.3) 06/17/23 21: Magnesium 1.5 mg/dl (1.7-2.4) L 06/17/23 21: Total Bilirubin 1.0 mg/dl (0.2-1.0) 06/17/23 21: AST 36 U/L (13-39) 06/17/23 21: ALT 20 U/L (7-52) 06/17/23 21:32 Alkaline Phosphatase 97 U/L (34-104) 06/17/23 21: Total Creatine Kinase 39 U/L (26-192) 06/17/23 21:32 Troponin I High Sens 13.8 pg/ml (0-14) 06/17/23 21: Total Protein 8.0 gm/dl (6.0-8.3) 06/17/23 21:32 Albumin 3.1 gm/dl (3.4-5.0) L 06/17/23 21:32 Globulin 4.9 gm/dl (2.5-4.0) H 06/17/23 21: Albumin/Globulin Ratio 0.6 (0.9-2) L 06/17/23 21:32 TSH 2.983 uIu/ml (0.300-4.500) 06/17/23 21:32 Urine Color Yellow 06/17/23 22:50 Urine Appearance Clear (Clear) 06/17/23 22:50 Urine pH 5.0 (4.5-7.5) 06/17/23 22:50 Ur Specific [place] 1.013 (1.000-1.030) 06/17/23 22:50 Urine Protein 1+ (Negative) H 06/17/23 22:50 Urine Glucose (UA) Negative (Negative) 06/17/23 22:50 Urine Ketones Negative (Negative) 06/17/23 22:50 Urine Blood 1+ (Negative) H 06/17/23 22:50 Urine Nitrite Negative (Negative) 06/17/23 22:50 Urine Bilirubin Negative (Negative) 06/17/23 22:50 Urine Urobilinogen Negative (Negative) 06/17/23 22:50 Ur Leukocyte Esterase Negative (Negative) 06/17/23 22:50 Urine WBC (Auto) 1-5 /hpf (0-5) 06/17/23 22:50 Urine RBC (Auto) 0-4 /hpf (0-4) 06/17/23 22:50 U Hyaline Cast (Auto) 10-30 /lpf (0-5) H 06/17/23 22:50 U Epithel Cells (Auto) 10-20 /lpf (0-5) H 06/17/23 22:50 Urine Bacteria (Auto) Negative (Negative) 06/17/23 22:50 Adenovirus (PCR) Not Detected (NotDetected) 06/17/23 22:00 B. pertussis DNA (PCR) Not Detected (NotDetected) 06/17/23 22:00 B.parapertussis DNA PCR Not Detected (NotDetected) 06/17/23 22:00 C. pneumoniae DNA (PCR) Not Detected (NotDetected) 06/17/23 22:00 Coronavirus OC43 (PCR) Not Detected (NotDetected) 06/17/23 22:00 Coronavirus HKU1 (PCR) Not Detected (NotDetected) 06/17/23 22:00 Coronavirus 229E (PCR) Not Detected (NotDetected) 06/17/23 22:00 SARS-CoV-2 (PCR) Not Detected (NotDetected) 06/17/23 22:00 Coronavirus NL63 (PCR) Not Detected (NotDetected) 06/17/23 22:00 Human Metapneumovir PCR Not Detected (NotDetected) 06/17/23 22:00 Influenza Type A (PCR) Not Detected (NotDetected) 06/17/23 22:00 Influenza Type B (PCR) Not Detected (NotDetected) 06/17/23 22:00 M. pneumoniae (PCR) Not Detected (NotDetected) 06/17/23 22:00 Parainfluenza 1 (PCR) Not Detected (NotDetected) 06/17/23 22:00 Parainfluenza 2 (PCR) Not Detected (NotDetected) 06/17/23 22:00 Parainfluenza 3 (PCR) Not Detected (NotDetected) 06/17/23 22:00 Parainfluenza 4 (PCR) Not Detected (NotDetected) 06/17/23 22:00 RSV (PCR) Not Detected (NotDetected) 06/17/23 22:00 Entero/Rhino (PCR) Not Detected (NotDetected) 06/17/23 22:00 Code Status & VTE Plan Code Status Full code VTE Prophylaxis Plan VTE Prophylaxis will be ordered: Yes PG Care Time/CCT Total # of Minutes Spent Total Time Spent with Patient: Total time spent is greater than 50% in coordination of care (as documented) at patient's floor/unit and/or counseling patient: Coding Level of Care Code 98596 INT INP/OBS CARE 3/75MIN Diagnoses Weakness R53.1 Hypomagnesemia E83.42 Anticoagulant long-term use Z79.01 Hypothyroidism E03.9 Stage 3b chronic kidney disease N18.32 PAF (paroxysmal atrial fibrillation) I48.0 Atrial fibrillation with rapid ventricular response I48.91 Aortic stenosis I35.0 Pituitary macroadenoma D35.2 ROSALES (obstructive sleep apnea) G47.33 Diabetes mellitus with peripheral vascular disease E11.51
[2023-06-18] MEDS: MAGNESIUM SULFATE / D5W 1 GM/100 ML BAG IV SCH (00:10)
[2023-06-18] MEDS ORDERED: GLUCOSE 10 TAB/TUBE PO PRN (01:22)
[2023-06-18] MEDS ORDERED: CARBOHYDRATES FOR HYPOGLYCEMIA PO PRN (01:22)
[2023-06-18] MEDS ORDERED: GLUCOSE 40% GEL 15 GM TUBE PO PRN (01:22)
[2023-06-18] MEDS ORDERED: ACETAMINOPHEN 325 MG TAB PO PRN (01:22)
[2023-06-18] MEDS ORDERED: ONDANSETRON INJ 2 MG/ML 2 ML VIAL IV PRN (01:22)
[2023-06-18] MEDS ORDERED: DEXTROSE 50% 50 ML SYRINGE IV PRN (01:22)
[2023-06-18] MEDS ORDERED: GLUCAGON FOR INJ 1 MG VIAL SQ PRN (01:22)
--- NOTE | 2023-06-18 01:52 | Emergency Department Note ---
ED Visit Note I have personally evaluated this patient examined her and reviewed the pertinent labs and data. I have discussed the case with Ratna Rhodes, the physician field administrative assistant and agree with the plan. Please refer to the PA note. This patient has a very complex medical history comes in complaining of feeling weak. On my exam she says her legs hurt and she feels weak. She is it is more of a diffuse weakness rather than focal. Labs were obtained. She does not feel she can go home we will admit her for further treatment and evaluation. .
[2023-06-18] MEDS: LEVOTHYROXINE SODIUM 75 MCG TABLET PO SCH (06:43)
--- NOTE | 2023-06-18 08:03 | Electrocardiogram Report ---
Test Reason : Blood Pressure : / mmHG Vent. Rate : 093 BPM Atrial Rate : 093 BPM P-R Int : 158 ms QRS Dur : 144 ms QT Int : 410 ms P-R-T Axes : 031 -60 026 degrees QTc Int : 509 ms Normal sinus rhythm with Premature atrial complexes Right bundle branch block Left anterior fascicular block Left ventricular hypertrophy with QRS widening Abnormal ECG When compared with ECG of 06-APR-2023 09:16, Vent. rate has increased BY 33 BPM Confirmed by Hayden Benavides ([id number]) on 06/18/2023 8:03:05 AM Referred By: REFERRED SELF Confirmed By:Hayden Benavides
[2023-06-18] MEDS: SPIRONOLACTONE 25 MG TAB PO SCH (08:51)
[2023-06-18] MEDS: PROPRANOLOL HCL 10 MG TAB PO SCH ×3 (08:51→21:16)
[2023-06-18] MEDS: rifAXIMin 550 MG TABLET PO SCH ×2 (08:51→21:15)
[2023-06-18] MEDS: TOCOPHERYL, DL-ALPHA 400 UNITS 180 MG CAP PO SCH (08:52)
[2023-06-18] MEDS: APIXABAN 2.5 MG TAB PO SCH ×2 (08:52→21:15)
[2023-06-18] MEDS: MAGNESIUM CHLORIDE W/CALCIUM 64MG DELAYED REL TAB PO SCH ×3 (08:52→21:15)
[2023-06-18] MEDS: PANTOprazole 40 MG TAB PO SCH (08:52)
[2023-06-18] MEDS: LACTULOSE SYRUP 30 GM/45 ML UDP PO SCH ×2 (08:52→21:16)
[2023-06-18] MEDS: CHOLECALCIFEROL 1,000 UNITS 25 MCG TAB PO SCH (08:52)
[2023-06-18] MEDS: FUROSEMIDE 40 MG TAB PO SCH (08:52)
[2023-06-18] MEDS: MULTIVITAMIN TAB PO SCH (08:52)
[2023-06-18] MEDS ORDERED: NON-FORMULARY MEDICATION (Coenzyme Q10 200 mg capsule) PO SCH (09:00)
[2023-06-18] MEDS: traMADol HCL 50 MG TABLET PO PRN (09:05)
[2023-06-18] MEDS: INSULIN ASPART PER UNIT CHARGE SC SCH ×4 (09:05→21:14)
--- NOTE | 2023-06-18 09:49 | XRay Report ---
XR chest 1V portable CLINICAL HISTORY: weakness TECHNIQUE: Single frontal radiograph of the chest was obtained. Comparison: Comparison is made to chest radiograph 03/21/2023 FINDINGS: No lines and tubes are seen. The cardiomediastinal silhouette is stable. The lungs are clear. No evid ence of pleural effusion or pneumothorax. IMPRESSION: No acute chest disease. ACT 112: Negative or not required by law. Electronically signed by: Cory Wolff M.D. 06/18/2023 9:48 AM
[2023-06-18] MEDS: FAMOTIDINE 20 MG in SYRINGE 3 ML IV SCH ×2 (10:43→22:02)
--- NOTE | 2023-06-18 13:29 | Hospitalist Progress Note ---
Date of Service June 18, 2023 Assessment & Plan (1) Hepatic encephalopathy: Plan: elevated ammonia level >150 at admission improved today biochemically but still very sleepy, altered, and with ongoing asterixis cont rifaximin cont lactulose - increase to TID dosing (2) Right leg pain: Plan: obtain x-rays of R hip, R knee, R tib-fib, R ankle by report she was so weak that she was about to fall and her family lowered her to the ground however, also by report, her leg got twisted during this semi-controlled fall thus - r/o bony injury; r/o hardware issue R knee pain could also be cellulitis (early) consider doppler - r/o DVT - she should really be on 5mg BID of Eliquis based on age and body weight (only taking 2.5mg BID) (3) Cellulitis of right leg: Plan: suspected/possible start rocephin + daptomycin IV re-eval tomorrow consider doppler (4) Weakness: Plan: multifactorial - #1, #3, #5, etc (5) Hypomagnesemia: Plan: replaced resolved likely 2nd to chronic lasix usage (6) Hypothyroidism: Plan: TSH compensated cont synthroid (7) Stage 3b chronic kidney disease: Plan: creatinine stable, but looks intra-vascularly volume depleted NS x 1 liter hold lasix today BMP am (8) Morbid obesity: Plan: BMI 42 (9) PAF (paroxysmal atrial fibrillation): Plan: in NSR cont eliquis cont inderal TID (10) 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 to alcohol: Plan: GREGORY cirrhosis now with #1 - see above cont inderal hold diuretics - looks dehydrated re-eval tomorrow does not look decompensated (11) Aortic stenosis: Plan: moderate on echo 2022 (12) 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 (13) History of DVT (deep vein thrombosis): Plan: RLE chronic - popliteal vein patient's leg is warm & painful today - although this may be early cellulitis - in light of only Eliquis 2.5mg BID will repeat a doppler to r/o Acute DVT (14) Diabetes mellitus with peripheral vascular disease: Plan: novolog SSI Hba1c 7.3% (15) Chronic right-sided congestive heart failure: Plan: previous echo with cor [place] EF 50-55% diastolic dysfunction as well looks volume contracted today see above Plan will need PT/OT Admission and Anticipated Discharge Date Admission Date: June 17, 2023 Subjective patient very tired/sleepy during the visit in fact at 1 point she fell asleep while talking talking very slowly states her right knee area hurts, then she stated it didn't hurt, then again said it was bothering her she also says "my right leg feels warm" she denied any dyspnea denied cp denied nausea/emesis Review of Systems Review of Systems: gen - no fevers, sleepy, tired, appetite is ok cv - no orthopnea pulm - no dyspnea or cough GI - no abd pain Physical Exam Physical Exam: gen - obese, sleepy, mildly confused mouth - MM very dry neck - no JVD heart - RRR, s1 s2, 2/6 systolic murmur RUSB lungs - CTA b/l abd - soft NT ND BS+ ext - right leg 1+ edema from right knee down to foot, minimal edema left leg; pulses 2+ b/l musculo - right knee total replacement scar present; passive ROM causes mild pain over tibial plateau region; tender along the linder to palpation; tender over the R ankle with palpation but passive ROM did not elicit pain; passive ROM of right hip w/o pain skin - mild warm erythema of entire right linder but nothing over the R knee or R ankle or R foot neuro - positive asterixis Results & Data Results & Data Vital Signs (Past 12 Hours) Vital Signs Temp Pulse Pulse Pulse Resp BP BP 06/18/23 11:30 36.7 C 60 16 117/72 06/18/23 09:24 62 06/18/23 08:09 36.7 C 65 16 146/73 H 06/18/23 07:09 65 06/18/23 04:18 06/18/23 04:00 67 19 06/18/23 03:31 60 17 141/66 H 06/18/23 02:00 69 18 142/64 H Pulse Ox O2 Del Method 06/18/23 11:30 97 Room Air 06/18/23 09:24 06/18/23 08:09 98 Room Air 06/18/23 07:09 06/18/23 04:18 Room Air 06/18/23 04:00 99 Room Air 06/18/23 03:31 98 Room Air 06/18/23 02:00 96 Room Air Laboratory Results Laboratory Results - last 24 hr 06/17/23 06/17/23 06/17/23 21:32 22:00 22:50 WBC 8.06 RBC 3.99 L Hgb 12.9 Hct 38.5 MCV 96.5 MCH 32.3 MCHC 33.5 RDW Std Deviation 45.6 RDW Coeff of Leah 12.8 Plt Count 89 L MPV 11.3 Immature Gran % (Auto) 0.2 Neut % (Auto) 81.3 Lymph % (Auto) 5.8 Pender % (Auto) 10.3 Eos % (Auto) 2.0 Baso % (Auto) 0.4 Neut # (Auto) 6.55 H Lymph # (Auto) 0.47 L Pender # (Auto) 0.83 H Eos # (Auto) 0.16 Baso # (Auto) 0.03 Immature Gran # (Auto) 0.02 Sodium 134 L Potassium 4.3 Chloride 105 Carbon Dioxide 23 Anion Gap 6 BUN 41 H Creatinine 1.52 H Est Cr Clr Drug Dosing 31.3 Est GFR ( Amer) 37.4 Est GFR (Non-Af Amer) 32.3 BUN/Creatinine Ratio 27.0 H Glucose 190 H POC Glucose Estimat Average Glucose Hemoglobin A1c Calcium 9.4 Magnesium 1.5 L Total Bilirubin 1.0 AST 36 ALT 20 Alkaline Phosphatase 97 Ammonia Total Creatine Kinase 39 Troponin I High Sens 13.8 Total Protein 8.0 Albumin 3.1 L Globulin 4.9 H Albumin/Globulin Ratio 0.6 L TSH 2.983 Urine Color Yellow Urine Appearance Clear Urine pH 5.0 Ur Specific [place] 1.013 Urine Protein 1+ H Urine Glucose (UA) Negative Urine Ketones Negative Urine Blood 1+ H Urine Nitrite Negative Urine Bilirubin Negative Urine Urobilinogen Negative Ur Leukocyte Esterase Negative Urine WBC (Auto) 1-5 Urine RBC (Auto) 0-4 U Hyaline Cast (Auto) 10-30 H U Epithel Cells (Auto) 10-20 H Urine Bacteria (Auto) Negative Adenovirus (PCR) Not Detected B. pertussis DNA (PCR) Not Detected B.parapertussis DNA PCR Not Detected C. pneumoniae DNA (PCR) Not Detected Coronavirus OC43 (PCR) Not Detected Coronavirus HKU1 (PCR) Not Detected Coronavirus 229E (PCR) Not Detected SARS-CoV-2 (PCR) Not Detected Coronavirus NL63 (PCR) Not Detected Human Metapneumovir PCR Not Detected Influenza Type A (PCR) Not Detected Influenza Type B (PCR) Not Detected M. pneumoniae (PCR) Not Detected Parainfluenza 1 (PCR) Not Detected Parainfluenza 2 (PCR) Not Detected Parainfluenza 3 (PCR) Not Detected Parainfluenza 4 (PCR) Not Detected RSV (PCR) Not Detected Entero/Rhino (PCR) Not Detected 06/18/23 06/18/23 06/18/23 07:29 08:24 12:17 WBC RBC Hgb Hct MCV MCH MCHC RDW Std Deviation RDW Coeff of Leah Plt Count MPV Immature Gran % (Auto) Neut % (Auto) Lymph % (Auto) Pender % (Auto) Eos % (Auto) Baso % (Auto) Neut # (Auto) Lymph # (Auto) Pender # (Auto) Eos # (Auto) Baso # (Auto) Immature Gran # (Auto) Sodium Potassium Chloride Carbon Dioxide Anion Gap BUN Creatinine Est Cr Clr Drug Dosing Est GFR ( Amer) Est GFR (Non-Af Amer) BUN/Creatinine Ratio Glucose POC Glucose 152 H 195 H Estimat Average Glucose Hemoglobin A1c Calcium Magnesium 1.8 Total Bilirubin AST ALT Alkaline Phosphatase Ammonia 82.0 H Total Creatine Kinase Troponin I High Sens Total Protein Albumin Globulin Albumin/Globulin Ratio TSH Urine Color Urine Appearance Urine pH Ur Specific [place] Urine Protein Urine Glucose (UA) Urine Ketones Urine Blood Urine Nitrite Urine Bilirubin Urine Urobilinogen Ur Leukocyte Esterase Urine WBC (Auto) Urine RBC (Auto) U Hyaline Cast (Auto) U Epithel Cells (Auto) Urine Bacteria (Auto) Adenovirus (PCR) B. pertussis DNA (PCR) B.parapertussis DNA PCR C. pneumoniae DNA (PCR) Coronavirus OC43 (PCR) Coronavirus HKU1 (PCR) Coronavirus 229E (PCR) SARS-CoV-2 (PCR) Coronavirus NL63 (PCR) Human Metapneumovir PCR Influenza Type A (PCR) Influenza Type B (PCR) M. pneumoniae (PCR) Parainfluenza 1 (PCR) Parainfluenza 2 (PCR) Parainfluenza 3 (PCR) Parainfluenza 4 (PCR) RSV (PCR) Entero/Rhino (PCR) 06/18/23 Unknown WBC RBC Hgb Hct MCV MCH MCHC RDW Std Deviation RDW Coeff of Leah Plt Count MPV Immature Gran % (Auto) Neut % (Auto) Lymph % (Auto) Pender % (Auto) Eos % (Auto) Baso % (Auto) Neut # (Auto) Lymph # (Auto) Pender # (Auto) Eos # (Auto) Baso # (Auto) Immature Gran # (Auto) Sodium Potassium Chloride Carbon Dioxide Anion Gap BUN Creatinine Est Cr Clr Drug Dosing Est GFR ( Amer) Est GFR (Non-Af Amer) BUN/Creatinine Ratio Glucose POC Glucose Estimat Average Glucose Pending Hemoglobin A1c Pending Calcium Magnesium Total Bilirubin AST ALT Alkaline Phosphatase Ammonia Total Creatine Kinase Troponin I High Sens Total Protein Albumin Globulin Albumin/Globulin Ratio TSH Urine Color Urine Appearance Urine pH Ur Specific [place] Urine Protein Urine Glucose (UA) Urine Ketones Urine Blood Urine Nitrite Urine Bilirubin Urine Urobilinogen Ur Leukocyte Esterase Urine WBC (Auto) Urine RBC (Auto) U Hyaline Cast (Auto) U Epithel Cells (Auto) Urine Bacteria (Auto) Adenovirus (PCR) B. pertussis DNA (PCR) B.parapertussis DNA PCR C. pneumoniae DNA (PCR) Coronavirus OC43 (PCR) Coronavirus HKU1 (PCR) Coronavirus 229E (PCR) SARS-CoV-2 (PCR) Coronavirus NL63 (PCR) Human Metapneumovir PCR Influenza Type A (PCR) Influenza Type B (PCR) M. pneumoniae (PCR) Parainfluenza 1 (PCR) Parainfluenza 2 (PCR) Parainfluenza 3 (PCR) Parainfluenza 4 (PCR) RSV (PCR) Entero/Rhino (PCR) PG Care Time/CCT Total # of Minutes Spent Total Time Spent with Patient: Total time spent is greater than 50% in coordination of care (as documented) at patient's floor/unit and/or counseling patient: Coding Level of Care Code 14576 SUB INP/OBS CARE 3/50MIN Diagnoses Hepatic encephalopathy K76.82 Right leg pain M79.604 Cellulitis of right leg L03.115 Weakness R53.1 Hypomagnesemia E83.42 Hypothyroidism E03.9 Stage 3b chronic kidney disease N18.32 Morbid obesity E66.01 PAF (paroxysmal atrial fibrillation) I48.0 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 to alcohol K74.60 Aortic stenosis I35.0 Presence of IVC filter Z95.828 History of DVT (deep vein thrombosis) Z86.718 Diabetes mellitus with peripheral vascular disease E11.51 Chronic right-sided congestive heart failure I50.812
[2023-06-18] MEDS ORDERED: SODIUM CHLORIDE 0.9% 1,000 ML IV SCH (13:30)
[2023-06-18] MEDS ORDERED: LACTULOSE SYRUP 20 GM/30 ML UDC PO ONE ×2 (14:00)
--- NOTE | 2023-06-18 14:16 | XRay Report ---
XR ankle RT min 3V routine, XR tibia fibula RT 2V, XR knee RT 1 or 2V routine CLINICAL HISTORY: R ankle pain s/p fall TECHNIQUE: 3 views of the right ankle, 2 views of the right tibia and fibula, and 2 views of the righ t knee were obtained. Comparison: Comparison is made to CT tibia and fibula 10/03/2021 FINDINGS: No definite fracture. Irregularity of the distal medial malleolus on AP view only may be degenerative , correlation with point tenderness is recommended. Total knee arthroplasty is seen. The ankle mortis e is intact. Vascular calcifications are seen. Soft tissue swelling is seen. IMPRESSION: Soft tissue swelling is seen without definite evidence of underlying bony abnormality. Correlation wi th point tenderness is recommended to exclude medial malleolus fracture. ACT 112: Negative or not required by law. Electronically signed by: Cory Wolff M.D. 06/18/2023 2:13 PM
--- NOTE | 2023-06-18 14:17 | XRay Report ---
XR hip RT 2V w pelvis CLINICAL HISTORY: fall, right hip/thigh pain TECHNIQUE: 2 views of the right hip and single frontal view of the pelvis were obtained. Comparison: Comparison is made to CT abdomen pelvis 04/06/2023 FINDINGS: There is no evidence of an acute fracture. Posterior fixation hardware is seen in the spine. Vascula r calcifications are noted. IMPRESSION: No evidence of acute osseous injury. ACT 112: Negative or not required by law. Electronically signed by: Cory Wolff M.D. 06/18/2023 2:16 PM
[2023-06-18] MEDS: cefTRIAXone SODIUM 2,000 MG in DEXTROSE 5 % MINI-B 50 ML IV SCH (15:49)
[2023-06-18] MEDS: DAPTOmycin 275 MG in SYRINGE 0 ML IV SCH (16:58)
[2023-06-18] MEDS ORDERED: ATORVASTATIN 10 MG TAB PO SCH (21:00)
[2023-06-18] MEDS ORDERED: FUROSEMIDE 20 MG TAB PO SCH (21:00)
[2023-06-19] MEDS: traMADol HCL 50 MG TABLET PO PRN (03:09)
[2023-06-19] MEDS: LEVOTHYROXINE SODIUM 75 MCG TABLET PO SCH (05:38)
[2023-06-19 07:12] LABS: Estimated Average Glucose 163 mg/dl; Hemoglobin A1C 7.3 % (4.5-5.6)
[2023-06-19 07:55] LABS: Hematocrit (blood only) 32.6 % (37.0-47.0); Hemoglobin 10.6 g/dl (12.0-16.0); Mean Corpuscular Hemoglobin 31.7 pg (25.0-34.0); Mean Corpuscular Hgb Conc 32.5 g/dL (32.0-36.0); Mean Corpuscular Volume 97.6 fL (80.0-100.0); Mean Platelet Volume 11.4 fL (9.4-12.4); Platelet Count 59 K/uL (130-400); RDW Standard Deviation 46.1 fL (36.4-46.3); Red Blood Count 3.34 M/uL (4.20-5.40); White Blood Count 6.78 K/ul (4.8-10.8)
[2023-06-19 08:11] LABS: Calcium 8.3 mg/dl (8.6-10.3); Creatinine Clr Calc Pharmacy 30.5 ml/min; Potassium 3.9 mmol/L (3.5-5.1)
[2023-06-19] MEDS: LACTULOSE SYRUP 30 GM/45 ML UDP PO SCH ×4 (09:25→21:50)
[2023-06-19] MEDS: PROPRANOLOL HCL 10 MG TAB PO SCH ×3 (09:25→21:46)
[2023-06-19] MEDS: MAGNESIUM CHLORIDE W/CALCIUM 64MG DELAYED REL TAB PO SCH ×3 (09:26→21:47)
[2023-06-19] MEDS: CHOLECALCIFEROL 1,000 UNITS 25 MCG TAB PO SCH (09:26)
[2023-06-19] MEDS: rifAXIMin 550 MG TABLET PO SCH ×2 (09:26→21:46)
[2023-06-19] MEDS: APIXABAN 2.5 MG TAB PO SCH ×2 (09:26→21:47)
[2023-06-19] MEDS: SPIRONOLACTONE 25 MG TAB PO SCH (09:27)
[2023-06-19] MEDS: PANTOprazole 40 MG TAB PO SCH (09:27)
[2023-06-19] MEDS: MULTIVITAMIN TAB PO SCH (09:27)
[2023-06-19] MEDS: TOCOPHERYL, DL-ALPHA 400 UNITS 180 MG CAP PO SCH (09:27)
[2023-06-19] MEDS: INSULIN ASPART PER UNIT CHARGE SC SCH ×4 (09:33→21:51)
[2023-06-19] MEDS: FAMOTIDINE 20 MG in SYRINGE 3 ML IV SCH ×2 (09:34→21:54)
--- NOTE | 2023-06-19 11:02 | Ultrasound Report ---
ULTRASOUND RIGHT LOWER EXTREMITY VENOUS CLINICAL HISTORY: Right leg pain and swelling. Cellulitis COMPARISON STUDY: Right lower extremity venous ultrasound dated 04/06/2023. TECHNIQUE: Real-time, grayscale, and color Doppler sonography of the deep veins of the right lower ex tremity was performed from the inguinal crease to the calf. Compression and augmentation were utilize d. FINDINGS: There is no sonographic evidence of deep venous thrombosis identified in the right lower ex tremity. The common femoral, superficial femoral, and popliteal veins are patent and normally quintin sible. The greater saphenous vein and the profunda femoris vein at the junction with the common femor al vein are clear. The visualized calf veins are patent. Soft tissue edema is present in the calf. Ch ronic thrombus in the popliteal vein seen on 04/06/2023 was not visualized on today's examination. IMPRESSION: There is no sonographic evidence of deep venous thrombosis identified in the right lower extremity. ACT 112: Negative or not required by law. Electronically signed by: Kenny Jung M.D. 06/19/2023 11:00 AM
--- NOTE | 2023-06-19 12:55 | CT Scan Report ---
CT ankle RT wo con HISTORY: 77 years-old Female ?medial malleolar fracture? Acute pain of the right ankle with possible fracture COMPARISON: Ankle radiographs 06/18/2023, right tibia and fibula radiographs 10/03/2021 TECHNIQUE: Multiple axial CT images of the right ankle were obtained without the use of IV contrast. A dose lowering technique was used consistent with the principals of ALARA. FINDINGS: Demineralized appearance of the bones. There is moderate osteoarthritis of the ankle with mild to mod erate osteoarthritis throughout the imaged foot. No acute fracture or dislocation identified. Cortica derek bone fragments adjacent to the medial malleolus again noted with a few loose bodies within the me dial clear space measuring up to 7 mm. No osteochondral defect. Arterial calcifications. Tendons and ligaments are not well evaluated by CT technique. Mild to modera te diffuse subcutaneous edema. Moderate-sized calcaneal enthesophytes. Mild thickening of the distal Achilles tendon suggestive of chronic tendinosis. IMPRESSION: 1. No acute fracture or dislocation. 2. Moderate osteoarthritis of the ankle with unchanged corticated bone fragments adjacent to the medi al malleolus including medial clear space loose bodies. ACT 112: Negative or not required by law. The above report was generated using voice recognition software. It may contain grammatical, syntax o r spelling errors. Electronically signed by: Victor M Reyna M.D. 06/19/2023 12:53 PM
[2023-06-19] MEDS: cefTRIAXone SODIUM 2,000 MG in DEXTROSE 5 % MINI-B 50 ML IV SCH (16:10)
[2023-06-19] MEDS: DAPTOmycin 275 MG in SYRINGE 0 ML IV SCH (16:12)
--- NOTE | 2023-06-19 21:32 | Hospitalist Progress Note ---
Date of Service June 19, 2023 Assessment & Plan (1) Hepatic encephalopathy: Plan: elevated ammonia level >150 at admission again improved today cont rifaximin cont lactulose - I have increased to TID dosing (usually takes BID at home) to achieve at least 3 BMs/day suspect this was the main culprit in her presentation (2) Right leg pain: Plan: obtained x-rays of R hip, R knee, R tib-fib, R ankle by report she was so weak that she was about to fall and her family lowered her to the ground however, also by report, her leg got twisted during this semi-controlled fall no obvious fractures on any of the above films due to ongoing R ankle pain and some abnormality seen on the x-rays over the medial malleolus I obtained CT ankle this showed considerable arthritic changes and loose bodies but no acute fracture suspect ligamentous or tendon injury of the ankle - anterior tibialis tendon injury?? I don't see any gout or pseudogout of the ankle on exam doppler of RLE obtained and was negative for DVT plan - place on tylenol 500mg QID (pt with cirrhosis - max 2gm/day) voltaren gel 4 grams QID to right ankle if pain persists consider ortho consult - need for brace or boot and/or MRI ankle? (3) Cellulitis of right leg: Plan: right linder improved today with ongoing use of rocephin + daptomycin IV re-eval tomorrow very well may have contributed to her hepatic encephalopathy hold statin while on daptomycin (4) Weakness: Plan: multifactorial - #1, #3, #5, etc PT, OT evals appreciated treat individual components (5) Hypomagnesemia: Plan: replaced resolved likely 2nd to chronic lasix usage repeat level in am (6) Hypothyroidism: Plan: TSH compensated cont synthroid (7) Stage 3b chronic kidney disease: Plan: creatinine stable hold lasix again today BMP am re-eval tomorrow for resumption of lasix (8) Morbid obesity: Plan: BMI 42-44 (9) PAF (paroxysmal atrial fibrillation): Plan: in NSR cont eliquis -- however, platelets are in the 50s; any lower strongly consider temporary holding of such cont inderal TID - also being used I suspect for portal HTN (10) 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 to alcohol: Plan: GREGORY cirrhosis now with #1 - see above cont inderal hold diuretics 1 more day - appetite/intake just starting to improve today re-eval tomorrow does not look decompensated from cirrhosis standpoint (11) Aortic stenosis: Plan: moderate on echo 2022 (12) 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 (13) History of DVT (deep vein thrombosis): Plan: RLE chronic - popliteal vein on Eliquis 2.5mg BID - uncertain why she is not on standard dosing at 5mg BID doppler RLE without Acute DVT (14) Diabetes mellitus with peripheral vascular disease: Plan: novolog SSI Hba1c 7.3% (15) Chronic right-sided congestive heart failure: Plan: previous echo with cor [place] EF 50-55% diastolic dysfunction as well re-eval tomorrow to determine whether to resume diuretics tomorrow no evidence of decompensated CHF today Plan appreciate PT/OT evals progressing updated pt's son by phone today Admission and Anticipated Discharge Date Admission Date: June 18, 2023 Subjective received message relatively early this am that when patient worked with PT she complained of pain in her right ankle therapist felt it was worst medially due to the abnormal ankle x-rays I ordered CT of ankle - this showed arthritic changes but no acute fracture when I came to see her she was sitting in the chair she was much more awake/alert today she reports 2 BMs today at home she states she usually has 3 BMs prior to admission she admitted she wasn't going that much asked her if she misses her lactulose at times and she said it was possible she lives with her nephew other than the right ankle she reports the right linder feels better today appetite improved tele overnight with NSR Review of Systems Review of Systems: gen - no fevers cv - no chest pain pulm - no dyspnea GI - no abd pain, nausea, or emesis Physical Exam Physical Exam: gen - obese, looks better today; more awake/alert mouth - MM more moist today neck - no JVD heart - RRR, s1 s2, 2/6 systolic murmur RUSB lungs - CTA b/l abd - soft NT ND BS+ ext - right leg 1+ edema from right knee down to foot, minimal edema left leg; pulses 2+ b/l musculo - right knee total replacement scar present; right ankle - no tenderness laterally; mild pain to palpation over medial malleolus area; no synovitis of right ankle; passive ROM of right ankle does not reproduce any pain; no mid-foot pain or swelling skin - mild warm erythema of entire right linder is improved today; this is on a background of stasis changes neuro - asterixis still present but improved from yesterday Results & Data Results & Data Vital Signs (Past 12 Hours) Vital Signs Temp Pulse Pulse Resp BP Pulse Ox O2 Del Method 06/19/23 20:15 36.2 C L 57 L 14 111/66 99 Room Air 06/19/23 18:30 60 06/19/23 16:11 36.5 C 57 L 20 122/70 99 Room Air 06/19/23 12:07 36.5 C 20 143/68 H 97 Room Air Laboratory Results Laboratory Results - last 24 hr 06/18/23 06/19/23 06/19/23 Unknown 07:03 08:25 WBC 6.78 RBC 3.34 L Hgb 10.6 L Hct 32.6 L MCV 97.6 MCH 31.7 MCHC 32.5 RDW Std Deviation 46.1 RDW Coeff of Leah 13.0 Plt Count 59 L MPV 11.4 Sodium 134 L Potassium 3.9 Chloride 106 Carbon Dioxide 22 Anion Gap 6 BUN 44 H Creatinine 1.57 H Est Cr Clr Drug Dosing 30.5 Est GFR ( Amer) 36.0 Est GFR (Non-Af Amer) 31.0 BUN/Creatinine Ratio 28.0 H Glucose 136 H POC Glucose 124 H Estimat Average Glucose 163 Hemoglobin A1c 7.3 H Calcium 8.3 L 06/19/23 06/19/23 12:23 17:10 WBC RBC Hgb Hct MCV MCH MCHC RDW Std Deviation RDW Coeff of Leah Plt Count MPV Sodium Potassium Chloride Carbon Dioxide Anion Gap BUN Creatinine Est Cr Clr Drug Dosing Est GFR ( Amer) Est GFR (Non-Af Amer) BUN/Creatinine Ratio Glucose POC Glucose 183 H 122 H Estimat Average Glucose Hemoglobin A1c Calcium PG Care Time/CCT Total # of Minutes Spent Total Time Spent with Patient: Total time spent is greater than 50% in coordination of care (as documented) at patient's floor/unit and/or counseling patient: Coding Level of Care Code 65019 SUB INP/OBS CARE 3/50MIN Diagnoses Hepatic encephalopathy K76.82 Right leg pain M79.604 Cellulitis of right leg L03.115 Weakness R53.1 Hypomagnesemia E83.42 Hypothyroidism E03.9 Stage 3b chronic kidney disease N18.32 Morbid obesity E66.01 PAF (paroxysmal atrial fibrillation) I48.0 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 to alcohol K74.60 Aortic stenosis I35.0 Presence of IVC filter Z95.828 History of DVT (deep vein thrombosis) Z86.718 Diabetes mellitus with peripheral vascular disease E11.51 Chronic right-sided congestive heart failure I50.812
[2023-06-20] MEDS: LEVOTHYROXINE SODIUM 75 MCG TABLET PO SCH (05:28)
[2023-06-20 07:31] LABS: Basophils # (auto) 0.03 K/uL (0.00-0.20); Basophils % (auto) 0.6 %; Eosinophils % (auto) 4.3 %; Hemoglobin 11.1 g/dl (12.0-16.0); Immature Granulocytes # (auto) 0.02 K/uL (0.01-0.20); Immature Granulocytes % (auto) 0.4 %; Lymphocytes % (auto) 30.2 %; Mean Corpuscular Hemoglobin 31.8 pg (25.0-34.0); Mean Corpuscular Hgb Conc 32.6 g/dL (32.0-36.0); Mean Corpuscular Volume 97.4 fL (80.0-100.0); Mean Platelet Volume 10.9 fL (9.4-12.4); Monocytes # (auto) 0.61 K/uL (0.11-0.59); Monocytes % (auto) 13.1 %; Neutrophils # (auto) 2.38 K/uL (1.40-6.50); Neutrophils % (auto) 51.4 %; Platelet Count 79 K/uL (130-400); RDW Coefficient of Variation 12.9 % (11.5-14.5); RDW Standard Deviation 46.5 fL (36.4-46.3); Red Blood Count 3.49 M/uL (4.20-5.40); White Blood Count 4.64 K/ul (4.8-10.8)
[2023-06-20 07:52] LABS: BUN Creatinine Ratio 28.4 (10-20); Calcium 8.3 mg/dl (8.6-10.3); Creatinine Clr Calc Pharmacy 30.5 ml/min; Est GFR (African American) 34.6 ml/min; Est GFR (Non-African American) 29.9 ml/min; Magnesium 1.8 mg/dl (1.7-2.4); Potassium 4.2 mmol/L (3.5-5.1)
[2023-06-20 08:03] LABS: INR 1.1 (0.9-1.1); Prothrombin Time 12.4 Seconds (9.0-12.0)
[2023-06-20] MEDS: LACTULOSE SYRUP 30 GM/45 ML UDP PO SCH ×3 (08:41→20:27)
[2023-06-20] MEDS: PROPRANOLOL HCL 10 MG TAB PO SCH ×3 (08:41→20:27)
[2023-06-20] MEDS: TOCOPHERYL, DL-ALPHA 400 UNITS 180 MG CAP PO SCH (08:41)
[2023-06-20] MEDS: PANTOprazole 40 MG TAB PO SCH (08:41)
[2023-06-20] MEDS: MULTIVITAMIN TAB PO SCH (08:42)
[2023-06-20] MEDS: CHOLECALCIFEROL 1,000 UNITS 25 MCG TAB PO SCH (08:43)
[2023-06-20] MEDS: SPIRONOLACTONE 25 MG TAB PO SCH (08:43)
[2023-06-20] MEDS: rifAXIMin 550 MG TABLET PO SCH ×2 (08:43→20:25)
[2023-06-20] MEDS: MAGNESIUM CHLORIDE W/CALCIUM 64MG DELAYED REL TAB PO SCH ×3 (08:44→20:25)
[2023-06-20] MEDS: APIXABAN 2.5 MG TAB PO SCH ×2 (08:44→20:21)
[2023-06-20] MEDS: INSULIN ASPART PER UNIT CHARGE SC SCH ×4 (08:45→20:47)
[2023-06-20] MEDS: FAMOTIDINE 20 MG in SYRINGE 3 ML IV SCH ×2 (08:49→20:34)
[2023-06-20] MEDS: ACETAMINOPHEN 500 MG TAB PO SCH ×4 (08:50→20:50)
[2023-06-20] MEDS: DICLOFENAC SOD 1% GEL 100 GM TUBE EXT SCH ×4 (13:01→20:22)
[2023-06-20] MEDS: cefTRIAXone SODIUM 2,000 MG in DEXTROSE 5 % MINI-B 50 ML IV SCH (15:20)
[2023-06-20] MEDS: DAPTOmycin 275 MG in SYRINGE 0 ML IV SCH (15:24)
--- NOTE | 2023-06-20 17:21 | Hospitalist Progress Note ---
Date of Service June 20, 2023 Assessment & Plan (1) Hepatic encephalopathy: Plan: elevated ammonia level >150 at admission continues to improve cont rifaximin cont lactulose - I have increased to TID dosing (usually takes BID at home) to achieve at least 3 BMs/day discussed as needed use of lactulose with her, will discuss with family suspect this was the main culprit in her presentation (2) Right leg pain: Plan: obtained x-rays of R hip, R knee, R tib-fib, R ankle by report she was so weak that she was about to fall and her family lowered her to the ground however, also by report, her leg got twisted during this semi-controlled fall no obvious fractures on any of the above films due to ongoing R ankle pain and some abnormality seen on the x-rays over the medial malleolus I obtained CT ankle this showed considerable arthritic changes and loose bodies but no acute fracture suspect ligamentous or tendon injury of the ankle - anterior tibialis tendon injury?? I don't see any gout or pseudogout of the ankle on exam doppler of RLE obtained and was negative for DVT plan - place on tylenol 500mg QID (pt with cirrhosis - max 2gm/day) voltaren gel 4 grams QID to right ankle - right ankle pain seems to be resolved as of 06/20 possibly this was related to the leg cellulitis (3) Cellulitis of right leg: Plan: right linder improved today initially treated with rocephin + daptomycin IV - changed to oral Keflex 06/20, not purulent so MRSA infection unlikely very well may have contributed to her hepatic encephalopathy (4) Weakness: Plan: multifactorial - #1, #3, #5, etc PT, OT meg appreciated - recommended home health which she declined today treat individual components (5) Hypomagnesemia: Plan: replaced resolved likely 2nd to chronic lasix usage magnesium level normal 06/20 (6) Hypothyroidism: Plan: TSH compensated cont synthroid (7) Stage 3b chronic kidney disease: Plan: creatinine stable at 1.6 resume oral furosemide (8) Morbid obesity: Plan: BMI 42-44 (9) PAF (paroxysmal atrial fibrillation): Plan: in NSR cont eliquis -- platelets improved to 79 cont inderal TID - also being used I suspect for portal HTN (10) 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 to alcohol: Plan: GREGORY cirrhosis now with #1 - see above cont inderal resume spironolactone and Lasix (11) Aortic stenosis: Plan: moderate on echo 2022 (12) 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 (13) History of DVT (deep vein thrombosis): Plan: RLE chronic - popliteal vein on low-dose Eliquis 2.5mg BID - high bleeding risk with cirrhosis and chronic thrombocytopenia doppler RLE without Acute DVT (14) Diabetes mellitus with peripheral vascular disease: Plan: novolog SSI Hba1c 7.3% (15) Chronic right-sided congestive heart failure: Plan: previous echo with cor pumonale EF 50-55% diastolic dysfunction as well remains well compensated resume diuretics Plan appreciate PT/OT evals progressing updated pt's son by phone 06/19 Admission and Anticipated Discharge Date Admission Date: June 18, 2023 Subjective up sitting in chair states she is doing well, having 23 BMs per day, right ankle/linder pain seems to have resolved with treatment for cellulitis she says the redness and pain is improved Review of Systems 2 Review of Systems: PHYSICAL EXAMINATION Last 24h vital signs reviewed, see documentation in flowsheet General: pleasant woman sitting up in the chair comfortable appearing, no distress HEENT: Normocephalic, atraumatic, pupils round and equal, sclerae anicteric, no conjunctival injection, moist mucus membranes Lungs: Normal respiratory effort. Clear to auscultation bilaterally. No RRW Heart: Regular rate and rhythm, no murmurs. No JVD Abdomen: Soft, nontender, nondistended. Bowel sounds present. Extremities: Warm, dry, well-perfused. 1-2+ extremity edema. right lower linder is erythematous which has been darkening has receded a lot from markings, no longer warm no induration Neuro: Alert and oriented x 4, face symmetric, moves 4 extremities well, no asterixis or tremor Psych: Normal affect and behavior Results & Data Results & Data Vital Signs (Past 12 Hours) Vital Signs Temp Pulse Pulse Resp BP Pulse Ox O2 Del Method 06/20/23 16:28 52 L 06/20/23 15:45 36.3 C L 58 L 16 151/66 H 99 Room Air 06/20/23 08:00 Room Air 06/20/23 07:57 36.3 C L 55 L 16 147/72 H 98 Room Air 06/20/23 07:51 67 Laboratory Results 06/20/23 07:06 06/20/23 07:06 PG Care Time/CCT Total # of Minutes Spent Total Time Spent with Patient: Total time spent is greater than 50% in coordination of care (as documented) at patient's floor/unit and/or counseling patient: Coding Level of Care Code 93159 SUB INP/OBS CARE 2/35MIN Diagnoses Hepatic encephalopathy K76.82 Right leg pain M79.604 Cellulitis of right leg L03.115 Weakness R53.1 Hypomagnesemia E83.42 Hypothyroidism E03.9 Stage 3b chronic kidney disease N18.32 Morbid obesity E66.01 PAF (paroxysmal atrial fibrillation) I48.0 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 to alcohol K74.60 Aortic stenosis I35.0 Presence of IVC filter Z95.828 History of DVT (deep vein thrombosis) Z86.718 Diabetes mellitus with peripheral vascular disease E11.51 Chronic right-sided congestive heart failure I50.812
[2023-06-20] MEDS: cephALEXin 500 MG CAP PO SCH (20:42)
[2023-06-20] MEDS: traMADol HCL 50 MG TABLET PO PRN (23:12)
[2023-06-21] MEDS: LEVOTHYROXINE SODIUM 75 MCG TABLET PO SCH (05:58)
[2023-06-21] MEDS: APIXABAN 2.5 MG TAB PO SCH (08:49)
[2023-06-21] MEDS: CHOLECALCIFEROL 1,000 UNITS 25 MCG TAB PO SCH (08:49)
[2023-06-21] MEDS: MAGNESIUM CHLORIDE W/CALCIUM 64MG DELAYED REL TAB PO SCH ×2 (08:49→14:01)
[2023-06-21] MEDS: MULTIVITAMIN TAB PO SCH (08:49)
[2023-06-21] MEDS: ACETAMINOPHEN 500 MG TAB PO SCH ×2 (08:50→12:58)
[2023-06-21] MEDS: SPIRONOLACTONE 25 MG TAB PO SCH (08:50)
[2023-06-21] MEDS: cephALEXin 500 MG CAP PO SCH ×2 (08:51→12:58)
[2023-06-21] MEDS: PANTOprazole 40 MG TAB PO SCH (08:51)
[2023-06-21] MEDS: TOCOPHERYL, DL-ALPHA 400 UNITS 180 MG CAP PO SCH (08:51)
[2023-06-21] MEDS: rifAXIMin 550 MG TABLET PO SCH (08:54)
[2023-06-21] MEDS: PROPRANOLOL HCL 10 MG TAB PO SCH ×2 (08:54→14:01)
[2023-06-21] MEDS: DICLOFENAC SOD 1% GEL 100 GM TUBE EXT SCH ×2 (08:55→12:58)
[2023-06-21] MEDS: INSULIN ASPART PER UNIT CHARGE SC SCH ×2 (08:58→13:00)
[2023-06-21] MEDS: FAMOTIDINE 20 MG in SYRINGE 3 ML IV SCH (08:59)
[2023-06-21] MEDS: FUROSEMIDE 40 MG TAB PO SCH (09:00)
[2023-06-21] MEDS: LACTULOSE SYRUP 30 GM/45 ML UDP PO SCH ×2 (10:52→14:03)
--- NOTE | 2023-06-21 19:44 | Discharge Summary ---
Date of Service June 21, 2023 Admission HPI Per Admitting Provider The patient is a 77-year-old female with a past medical history including hypomagnesemia, UTI, chronic diastolic heart failure, CKD stage IV, morbid obesity, PAF, diabetes mellitus, atrial fibrillation with RVR, infective endocarditis, aortic stenosis, MGUS, ROSALES and pituitary macroadenoma. Patient reports that she has had chronic issues with low magnesium, and when it becomes and particularly low, she develops symptoms that she has now. Significant laboratories: Magnesium 1.5, albumin 3.1, glucose 190, creatinine 1.52, platelets 89 [employer] testing negative From the ED patient received magnesium sulfate 2 g IV Principal Diagnosis Right lower extremity cellulitis, acute on chronic hepatic encephalopathy Discharge Exam PHYSICAL EXAMINATION Last 24h vital signs reviewed, see documentation in flowsheet General: comfortable appearing, no distress, sitting in chair HEENT: Normocephalic, atraumatic, pupils round and equal, sclerae anicteric, no conjunctival injection, moist mucus membranes Lungs: Normal respiratory effort. Clear to auscultation bilaterally. No RRW Heart: Regular rate and rhythm, no murmurs. No JVD Abdomen: Soft, nontender, nondistended. Bowel sounds present. Extremities: Warm, dry, well-perfused. 2+ extremity edema with some cobblestoning and chronic darkening of the skin consistent with venous stasis disease. Mild warmth and erythema of right linder persists relatively unchanged from yesterday but significantly receded from previous marker lines made on presentation Neuro: Alert and oriented x 4, face symmetric, moves 4 extremities well, no asterixis Psych: Normal affect and behavior Discharge Data Allergies Allergy/AdvReac Type Severity Reaction Status Date / Time No Known Allergies Allergy Verified 06/17/23 23:34 Consultations 06/17/23 22:38 ED Decision to Admit Stat Ordered Studies 06/19/23 07:41 US venous doppler LE RT Routine 06/19/23 10:41 CT ankle RT wo con Routine Chest X-Ray 06/17/23 21:38 XR chest 1V portable CLINICAL HISTORY: weakness TECHNIQUE: Single frontal radiograph of the chest was obtained. Comparison: Comparison is made to chest radiograph 03/21/2023 FINDINGS: No lines and tubes are seen. The cardiomediastinal silhouette is stable. The lungs are clear. No evidence of pleural effusion or pneumothorax. IMPRESSION: No acute chest disease. ACT 112: Negative or not required by law. Electronically signed by: Cory Wolff M.D. 06/18/2023 9:48 AM Ankle X-Ray 06/18/23 13:26 XR ankle RT min 3V routine, XR tibia fibula RT 2V, XR knee RT 1 or 2V routine CLINICAL HISTORY: R ankle pain s/p fall TECHNIQUE: 3 views of the right ankle, 2 views of the right tibia and fibula, and 2 views of the right knee were obtained. Comparison: Comparison is made to CT tibia and fibula 10/03/2021 FINDINGS: No definite fracture. Irregularity of the distal medial malleolus on AP view only may be degenerative, correlation with point tenderness is recommended. Total knee arthroplasty is seen. The ankle mortise is intact. Vascular calcifications are seen. Soft tissue swelling is seen. IMPRESSION: Soft tissue swelling is seen without definite evidence of underlying bony abnormality. Correlation with point tenderness is recommended to exclude medial malleolus fracture. ACT 112: Negative or not required by law. Electronically signed by: Cory Wolff M.D. 06/18/2023 2:13 PM Hip/Pelvis X-Ray 06/18/23 13:26 XR hip RT 2V w pelvis CLINICAL HISTORY: fall, right hip/thigh pain TECHNIQUE: 2 views of the right hip and single frontal view of the pelvis were obtained. Comparison: Comparison is made to CT abdomen pelvis 04/06/2023 FINDINGS: There is no evidence of an acute fracture. Posterior fixation hardware is seen in the spine. Vascular calcifications are noted. IMPRESSION: No evidence of acute osseous injury. ACT 112: Negative or not required by law. Electronically signed by: Cory Wolff M.D. 06/18/2023 2:16 PM Knee X-Ray 06/18/23 13:26 XR ankle RT min 3V routine, XR tibia fibula RT 2V, XR knee RT 1 or 2V routine CLINICAL HISTORY: R ankle pain s/p fall TECHNIQUE: 3 views of the right ankle, 2 views of the right tibia and fibula, and 2 views of the right knee were obtained. Comparison: Comparison is made to CT tibia and fibula 10/03/2021 FINDINGS: No definite fracture. Irregularity of the distal medial malleolus on AP view only may be degenerative, correlation with point tenderness is recommended. Total knee arthroplasty is seen. The ankle mortise is intact. Vascular calcifications are seen. Soft tissue swelling is seen. IMPRESSION: Soft tissue swelling is seen without definite evidence of underlying bony abnormality. Correlation with point tenderness is recommended to exclude medial malleolus fracture. ACT 112: Negative or not required by law. Electronically signed by: Cory Wolff M.D. 06/18/2023 2:13 PM Tibia/Fibula X-Ray 06/18/23 13:26 XR ankle RT min 3V routine, XR tibia fibula RT 2V, XR knee RT 1 or 2V routine CLINICAL HISTORY: R ankle pain s/p fall TECHNIQUE: 3 views of the right ankle, 2 views of the right tibia and fibula, and 2 views of the right knee were obtained. Comparison: Comparison is made to CT tibia and fibula 10/03/2021 FINDINGS: No definite fracture. Irregularity of the distal medial malleolus on AP view only may be degenerative, correlation with point tenderness is recommended. Total knee arthroplasty is seen. The ankle mortise is intact. Vascular calcifications are seen. Soft tissue swelling is seen. IMPRESSION: Soft tissue swelling is seen without definite evidence of underlying bony abnormality. Correlation with point tenderness is recommended to exclude medial malleolus fracture. ACT 112: Negative or not required by law. Electronically signed by: Cory Wolff M.D. 06/18/2023 2:13 PM Venous Doppler Study 06/19/23 07:41 ULTRASOUND RIGHT LOWER EXTREMITY VENOUS CLINICAL HISTORY: Right leg pain and swelling. Cellulitis COMPARISON STUDY: Right lower extremity venous ultrasound dated 04/06/2023. TECHNIQUE: Real-time, grayscale, and color Doppler sonography of the deep veins of the right lower extremity was performed from the inguinal crease to the calf. Compression and augmentation were utilized. FINDINGS: There is no sonographic evidence of deep venous thrombosis identified in the right lower extremity. The common femoral, superficial femoral, and popliteal veins are patent and normally compressible. The greater saphenous vein and the profunda femoris vein at the junction with the common femoral vein are clear. The visualized calf veins are patent. Soft tissue edema is present in the calf. Chronic thrombus in the popliteal vein seen on 04/06/2023 was not visualized on today's examination. IMPRESSION: There is no sonographic evidence of deep venous thrombosis identified in the right lower extremity. ACT 112: Negative or not required by law. Electronically signed by: Kenny Jung M.D. 06/19/2023 11:[address] 06/19/23 10:41 CT ankle RT wo con HISTORY: 77 years-old Female ?medial malleolar fracture? Acute pain of the right ankle with possible fracture COMPARISON: Ankle radiographs 06/18/2023, right tibia and fibula radiographs 10/03/2021 TECHNIQUE: Multiple axial CT images of the right ankle were obtained without the use of IV contrast. A dose lowering technique was used consistent with the principals of ALARA. FINDINGS: Demineralized appearance of the bones. There is moderate osteoarthritis of the ankle with mild to moderate osteoarthritis throughout the imaged foot. No acute fracture or dislocation identified. Corticated bone fragments adjacent to the medial malleolus again noted with a few loose bodies within the medial clear space measuring up to 7 mm. No osteochondral defect. Arterial calcifications. Tendons and ligaments are not well evaluated by CT technique. Mild to moderate diffuse subcutaneous edema. Moderate-sized calcaneal enthesophytes. Mild thickening of the distal Achilles tendon suggestive of chronic tendinosis. IMPRESSION: 1. No acute fracture or dislocation. 2. Moderate osteoarthritis of the ankle with unchanged corticated bone fragments adjacent to the medial malleolus including medial clear space loose bodies. ACT 112: Negative or not required by law. The above report was generated using voice recognition software. It may contain grammatical, syntax or spelling errors. Electronically signed by: Victor M Reyna M.D. 06/19/2023 12:53 PM Hospital Course (1) Hepatic encephalopathy: elevated ammonia level >150 at admission. may have been precipitated by her cellulitis resolved on increase in lactulose to 3 times daily and continuation of rifaximin which she has at home discussed titration of lactulose with the patient and her niece who manages her medications, need to take enough lactulose to have 3 bowel movements per day, extra dose(s) of lactulose if needed to provoke a bowel movement or if sleepiness/lethargy develops. recommended she increase her lactulose to 3 times a day at discharge (2) Cellulitis of right leg: right linder initially treated with rocephin + daptomycin IV, improved - changed to oral Keflex 06/20, not purulent so MRSA infection unlikely - complete 1 week of Keflex or cefadroxil on discharge (3) Right leg pain: obtained x-rays of R hip, R knee, R tib-fib, R ankle by report she was so weak that she was about to fall and her family lowered her to the ground however, also by report, her leg got twisted during this semi-controlled fall no obvious fractures on any of the above films due to ongoing R ankle pain and some abnormality seen on the x-rays over the medial malleolus I obtained CT ankle this showed considerable arthritic changes and loose bodies but no acute fra cture I don't see any gout or pseudogout of the ankle on exam doppler of RLE obtained and was negative for DVT - right ankle pain seems to be resolving as of 06/20 possibly this pain was related to the leg cellulitis (4) Weakness: multifactorial - #1, #3, #5, etc PT, OT meg appreciated - recommended home health which she declined, I also discussed this with her niece. they have frequently had home health recently and do not see any additional benefit (5) Hypomagnesemia: replaced, resolved - continue her chronic maximum oral dose magnesium supplements - proton pump inhibitor was decreased to daily, this may help with some of her magnesium absorption - she does need ongoing GERD treatment, however, Pepcid previously discontinued presumably because of her poor renal function (6) Hypothyroidism: TSH compensated cont synthroid (7) Stage 3b chronic kidney disease: creatinine stable at 1.6 resumed oral furosemide (8) Morbid obesity: BMI 42-44 (9) PAF (paroxysmal atrial fibrillation): in NSR cont eliquis -- platelets improved to 79 cont inderal TID - also being used I suspect for portal HTN (10) 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 to alcohol: GREGORY cirrhosis, complicated by chronic hepatic encephalopathy and edema cont inderal resumed spironolactone and Lasix (11) Aortic stenosis: moderate on echo 2022 (12) Presence of IVC filter: due to prior DVTs/PEs (13) History of DVT (deep vein thrombosis): RLE chronic - popliteal vein on low-dose Eliquis 2.5mg BID - high bleeding risk with cirrhosis and chronic thrombocytopenia doppler RLE without Acute DVT (14) Diabetes mellitus with peripheral vascular disease: Hba1c 7.3% this is an increase from multiple previous A1c checks where her range is usually between 6 and 7. This has just crossed into the range where therapy is indicated. She previously used to be on metformin which was discontinued because of poor renal and liver function. I discussed diabetic control with the patient and her niece at this point they will attempt to improve her diet by reducing her starches and replacing with vegetables and proteins. She already avoids sugars and sugar containing drinks. She will continue to monitor her blood sugar several mornings per week and keep a log. She will follow-up in primary care and consider initiation of medication if not improving (15) Chronic right-sided congestive heart failure: previous echo with janet bennettanalisa EF 50-55% diastolic dysfunction as well remains well compensated resumed diuretics Plan I updated her niece and caregiver Rosalind anderson 20 minutes by phone on day of discharge Total Time Total Time Spent Total Time Spent (In Minutes): 50 minutes coordinating care for discharge Discharge Plan Discharge Items Patient Disposition: Home - Self-Care Reason For Visit: RLE CELLULITIS, HEPATIC ENCEPHALOPATHY Discharge Diagnosis: Right leg cellulitis, hepatic encephalopathy Condition on Discharge: Fair Activity: Resume your previous activity Non-emergency contact: Primary Care Provider Call non-emergency contact if: you have any medication questions and your symptoms worsen Follow-up/Referrals: Jian Pierce DO [Primary Care Provider] - 06/28/23 10:00 am Diet: Carb Consistent or DM2 Addtl Attending Provider Instructions: Dear Ms. Dudley, You were treated for skin infection of your right leg, low magnesium, and flare- up of hepatic encephalopathy -take the antibiotics for a week until they run out -keep your legs elevated when you are resting - this will prevent vein blood from pooling in your legs and causing redness and swelling -continue your magnesium supplement -try to eat magnesium rich foods. peanut butter has a good amount of magnesium -for your hepatic encephalopathy try increasing your lactulose to three doses a day -you need to be having three BMs a day -if you only have one or two BMs, take an extra dose of lactulose -if you have increased sleepiness, confusion, or slurring of your words take an extra dose of lactulose every 1 to 2 hours until you have a big BM. If your mental status clears after that then you are ok. If you keep getting worse despite extra doses of lactulose seek medical attention because you could be having an infection or a different problem -keep taking the rifaximin -your blood sugar is in the diabetic level -metformin is not a good option because of your liver and kidney function -try reducing the starch in your diet (eat less pasta, cereals, breads, potato etc) and replace with more protein and vegetables -keep a log of your blood sugar you can check it a few mornings a week prior to breakfast -follow up with Dr. Pierce for this, if your blood sugar does not improve with some diet changes then you may need to go on a diabetic medication It was a pleasure taking care of you in the hospital, Mag Little MD Pending Studies at Discharge: No Stand-Alone Forms: My [facility], Smoking Cessation Medications and DC Order Prescriptions: New pantoprazole 40 mg Tablet,Delayed Release (Dr/Ec) 40 mg PO QAM Qty: 0 0RF lactulose 10 gram/15 mL (15 mL) Solution 30 g PO TID Qty: 0 0RF cefadroxil 500 mg capsule 500 mg PO BID Qty: 14 0RF Continued Eliquis 2.5 mg tablet 2.5 mg PO BID Qty: 60 11RF Hold Instructions: Resume on 04/17/23. HOLD until your PCP tells you it is safe to resume. levothyroxine 75 mcg tablet 75 mcg PO DAILY Qty: 90 3RF propranolol 10 mg tablet 10 mg PO TID 90 Days Qty: 270 3RF coenzyme Q10 200 mg capsule 200 mg PO DAILY atorvastatin 10 mg tablet 10 mg PO HS Qty: 90 3RF magnesium chloride 64 mg tablet,delayed release (DR/EC) 128 mg PO TID Qty: 540 3RF spironolactone 25 mg tablet 25 mg PO DAILY Qty: 90 3RF Hold Instructions: high K cholecalciferol (vitamin D3) [Vitamin D3] 2,000 unit Capsule 2,000 unit PO QAM multivitamin Tablet 1 tab PO QAM vitamin E 400 unit capsule 400 unit PO QAM furosemide 40 mg tablet 40 mg PO QAM Xifaxan 550 mg tablet 550 mg PO BID furosemide 40 mg tablet 20 mg PO QPM Rx Instructions: at noon Discontinued lactulose 10 gram/15 mL solution 30 g PO BID 90 Days Qty: 8100 5RF pantoprazole 40 mg tablet,delayed release (DR/EC) 40 mg PO BID Discharge Orders: Discharge Order (Routine); Ordered 06/21/23 Ordered By: Mag Hodge/Other Patient Handouts: Managing Type 2 Diabetes Admission Data Admit Date/Time: 06/18/23 20:13 Attending Provider: Mag Little Admit Provider: Dru Becerra Primary Care Provider: Jian Pierce Other Providers: Dru Beecrra Other Interventions: Discharge Summary Assessment (RN) Last Done: 06/21/23 13:48 Coding Level of Care Code 53267 INP/OBS DISCH >30 MIN Diagnoses Hepatic encephalopathy K76.82 Cellulitis of right leg L03.115 Right leg pain M79.604 Weakness R53.1 Hypomagnesemia E83.42 Hypothyroidism E03.9 Stage 3b chronic kidney disease N18.32 Morbid obesity E66.01 PAF (paroxysmal atrial fibrillation) I48.0 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 to alcohol K74.60 Aortic stenosis I35.0 Presence of IVC filter Z95.828 History of DVT (deep vein thrombosis) Z86.718 Diabetes mellitus with peripheral vascular disease E11.51 Chronic right-sided congestive heart failure I50.812
== END 2023-06-21 16:59 | disposition home or self-care (01) | DRG 641 ==
LOC: EDINP 21:17 → ED 21:17 → SUATTDRO 23:53 → 2N 06-18 01:22 → SUATTDRO 06-18 20:13

== ENCOUNTER 2023-07-24 07:06 | Inpatient (IN) ==
[2023-07-24] MEDS ORDERED: SODIUM CHLORIDE 0.9% 500 ML IV ONE (07:17)
--- NOTE | 2023-07-24 07:21 | Emergency Department Note ---
Impression & Plan Altered mental status, Hyperammonemia, Slurred speech, Liver disease, Hypertension ED Provider Note NAME: JEFFREY TOVAR AGE: 77 SEX: F : 1945 ARRIVES VIA: Ambulance INFORMANT: [Patient][ems] ED PROVIDER(S): [Kenny Medina MD] CHIEF COMPLAINT: Stroke symptoms HISTORY OF PRESENT ILLNESS: The patient is a 77-year-old female who was found by family this morning 4 hours ago, at 3 AM, weak and slurring her speech. She has a history of a similar presentations with UTI. She also has a history of a low magnesium which oftentimes leads to weakness. The patient is on Eliquis. She denies fall, there is no headache. She is not short of breath. No abdominal pain, no nausea. She just feels weak and washed out. PMHx/PSHx/Social Hx: See Below PHYSICAL EXAM: GENERAL: Patient is in no acute distress. HEENT: No acute trauma, normocephalic atraumatic, mucous membranes moist, no nasal congestion. NECK: No stridor, no adenopathy, no meningismus, trachea is midline. LUNGS: Clear to auscultation bilaterally when listening anterior, no wheeze, no rhonchi, breath sounds equal. HEART: 2/6 systolic murmur, regular rate and rhythm. ABDOMEN: Soft, nontender, no peritonitis. EXTREMITIES: No cyanosis, full range of motion of all the joints without pain or difficulty. NEUROLOGIC: Oriented x 3, equal hand grasp. Slight speech slur, excellent historian. Does move all extremities. SKIN: No jaundice, no diaphoresis. Cool to the touch. DIFFERENTIAL DIAGNOSIS: UTI, bacteremia or sepsis, pneumonia, intracranial bleed, stroke, electrolyte imbalance, dehydration, renal or liver failure, among others. EMERGENCY DEPARTMENT PROCEDURES: MEDICAL DECISION MAKING: There is no leukocytosis. There is no anemia. Platelet count is low but this is baseline when looking back at previous testing. INR slightly elevated at 1.2. There was an elevation to the creatinine at 1.61, this was baseline for the patient. Lactic acid level was not not elevated making severe sepsis less likely. Magnesium was low at 1.6. The patient appeared to be in a euthyroid state. No concerning liver enzyme elevation. Ammonia level was quite high at 132. ECG showed a normal sinus rhythm, no ischemia. Cardiac enzyme testing x 2 is slightly elevated but the rise is not indicative of acute cardiac injury. Urinalysis does not show infection. COVID, influenza and RSV test were negative. Chest film did not show pneumonia or CHF. Brain CT showed no acute bleed or mass effect. On exam, the patient did not have any focal neurologic findings. She did have some somnolence and speech slurring. The patient appears to have a high ammonia level, this has led to her presentation. The patient received a 500 cc saline bolus. She was given a dose of oral lactulose. She was given IV magnesium. She received IV labetalol for a persistently higher blood pressure. Patient is resting comfortably. She is not in distress. Her blood pressure is improved since being medicated. The patient is in need of a hospital stay. I did speak with case management, the on-call hospitalist was consulted. Of note, patient's presentation does not suggest acute CVA. She would not be a candidate for TNK as she is on Eliquis and the symptoms have been ongoing for over 4 hours. Prior/Outside records/notes reviewed: Discharge summary from 06/21/2023 discussing her admission for cellulitis and discussing her chronic hepatic encephalopathy. ECG per my interpretation: Indication was possible stroke. The ECG shows a normal sinus rhythm with a rate of 76. There is a right bundle branch block. There is LVH present. There is no concerning ST elevation, no PVCs. The QTc is 483. Continuous Cardiac Monitoring per my interpretation: An order was placed for continuous cardiac monitoring. The monitor shows a rate of 82 with normal sinus rhythm. Imaging/x-ray results per my interpretation: Chest x-ray does not show mediastinal widening, pneumonia or pneumothorax. Chronic Medical/Social conditions affecting care: Advanced age. Care/Management discussed with: Case management, the on-call hospitalist. Level of care consideration(s): After review of the information above and other included data: --I believe the patient requires escalation of care to admission Critical Care Note: I have personally spent 50 minutes of critical care time in the direct management of this patient. This includes bedside care, interpretation of diagnostic studies, and testing, discussion with consultants, patient, and family members, and other required patient management activities. This 50 minutes is in excess of all separately billable procedures. DISPOSITION: Admission Past Med/Surg History Medical History Aortic stenosis Hepatic encephalopathy Presence of IVC filter Rectal bleeding Hypomagnesemia Generalized weakness Stage 3b chronic kidney disease Nausea vomiting and diarrhea Dizziness Acute hyperkalemia Encephalopathy acute Nausea & vomiting Rhinovirus Acute on chronic diastolic heart failure Volume overload Lactate blood increase Vomiting and diarrhea Cough Wheezing Weakness DVT (deep venous thrombosis) Elevated troponin EMY (acute kidney injury) Thrombocytopenia Chronic deep vein thrombosis (DVT) Fever Pulmonary embolism 2018 > no known cause > Filter to right groin Diverticular hemorrhage resolved GI bleed none at present Esophageal varices determined by endoscopy Monoclonal gammopathy Osteoarthritis GERD (gastroesophageal reflux disease) Migraine Vertigo Surgical History History of laparoscopic cholecystectomy History of section x3 History of bilateral breast reduction surgery History of dilatation and curettage History of carpal tunnel release of both wrists History of total left knee replacement (TKR) History of total right knee replacement (TKR) History of lumbar spinal fusion hardware in place History of colonoscopy History of esophagogastroduodenoscopy (EGD) History of tooth extraction all teeth History of tonsillectomy History of bilateral cataract extraction Family History Mother Family history of diabetes mellitus Brother Family history of diabetes mellitus 3 brothers Colorectal cancer Myocardial infarction x 2 Father Myocardial infarction Denies family history of Ovarian cancer Prostate cancer Breast cancer Social History Smoking Status: Former smoker Tobacco Type: Cigarettes Age Started Using Tobacco: 15; Age Quit Using Tobacco: 21; Cigarettes Per Day: stopped 55 years ago; Second Hand Exposure: No; Do You Dip or Chew Tobacco: No; Hx Alcohol Use: No Hx Substance Use: No Preferred Language: Yi Communication Ability: Effective Visual Impairment: Limited Hearing Ability: Normal Conveyancer Required: No Beliefs That Will Affect Care: None marital status: / Current Living Situation: Family Current Living Situation Comment: Lives with neice current occupational status: retired How many Children do You have: 3 Feels Safe at Home: Yes Childhood Exposure to Second-Hand Smoke: Yes Diet: regular caffeine: Yes (tea) during the past year weight has: remained stable Dental Care, Regularly: No Physical Activity Frequency: Does not Exercise Seatbelt Use: always Sunscreen Use: No Do you think of yourself as: straight/heterosexual Gender Identity: Female Assistive Devices: Hospital Bed and Walker Allergies Allergies Allergy/AdvReac Type Severity Reaction Status Date / Time No Known Allergies Allergy Verified 07/24/23 10:07 Home Meds Home Medications Medication Instructions Recorded Confirmed cholecalciferol (vitamin D3) 50 2,000 unit PO QAM 07/01/18 07/24/23 mcg (2,000 unit) capsule (Vitamin D3) multivitamin 1 tab PO QAM 10/14/19 07/24/23 vitamin E 268 mg (400 unit) capsule 400 unit PO QAM 08/14/20 07/24/23 coenzyme Q10 200 mg capsule 200 mg PO DAILY 11/01/21 07/24/23 furosemide 40 mg tablet See Rx Instructions .Route .COMPLEX 11/21/22 07/24/23 Previous Rx's Medication Instructions Recorded atorvastatin 10 mg tablet 10 mg PO HS #90 tabs 09/08/22 magnesium chloride 64 mg 128 mg (2 x 64 mg) PO TID #540 tabs 09/08/22 (magnesium chloride) tablet,delayed release spironolactone 25 mg tablet 25 mg PO DAILY #90 tabs 12/06/22 propranolol 10 mg tablet 10 mg PO TID 90 days #270 tabs 01/23/23 apixaban 2.5 mg tablet (Eliquis) 2.5 mg PO BID #60 tabs 02/13/23 levothyroxine 75 mcg tablet 75 mcg PO DAILY #90 tabs 03/01/23 lactulose 10 gram/15 mL (15 mL) 30 g (45 mL) PO TID #0 mL 06/21/23 oral solution pantoprazole 40 mg tablet,delayed 40 mg PO QAM #0 tabs 06/21/23 release rifaximin 550 mg tablet (Xifaxan) 550 mg PO BID #60 tabs 07/14/23 Results & Data (ED) Vital Signs Vital Signs - 24 hr 07/24/23 07:11 07/24/23 08:12 07/24/23 08:23 Temperature 36.4 C L Temperature Source Oral Pulse Rate 78 73 Pulse Rate from SpO2 Sensor Pulse Rhythm Regular Pulse Strength Normal Respiratory Rate 16 Respiratory Effort / Characteristics Non-Labored Spontaneous Respiratory Depth Normal Respiratory Pattern Regular Blood Pressure 149/120 H Blood Pressure Mean 129 Blood Pressure Position Sitting Pulse Oximetry 100 100 Oxygen Delivery Method Room Air Room Air Oxygen Flow Rate 0 Sepsis Recent Fever Within 48 Hours No Sepsis New/Unexplained Change in Mental Status No Sepsis Action Taken by Nursing No Action Required 07/24/23 08:33 07/24/23 09:02 07/24/23 09:30 Temperature Temperature Source Pulse Rate 75 72 67 Pulse Rate from SpO2 Sensor 75 67 Pulse Rhythm Pulse Strength Respiratory Rate 16 18 16 Respiratory Effort / Characteristics Respiratory Depth Respiratory Pattern Blood Pressure 150/107 H 151/111 H 122/81 Blood Pressure Mean 121 124 94 Blood Pressure Position Pulse Oximetry 99 97 96 Oxygen Delivery Method Room Air Room Air Room Air Oxygen Flow Rate Sepsis Recent Fever Within 48 Hours Sepsis New/Unexplained Change in Mental Status Sepsis Action Taken by Nursing 07/24/23 10:01 07/24/23 10:23 Temperature Temperature Source Pulse Rate 76 71 Pulse Rate from SpO2 Sensor Pulse Rhythm Pulse Strength Respiratory Rate 14 Respiratory Effort / Characteristics Respiratory Depth Respiratory Pattern Blood Pressure 194/77 H 194/77 H Blood Pressure Mean 116 Blood Pressure Position Pulse Oximetry 97 Oxygen Delivery Method Room Air Oxygen Flow Rate Sepsis Recent Fever Within 48 Hours Sepsis New/Unexplained Change in Mental Status Sepsis Action Taken by [facility] Medications Current Medication List: was personally reviewed by me Laboratory Data Attestation: I reviewed the patient's lab results. 07/24/23 07:16 07/24/23 07:16 Lab Results 07/24/23 07/24/23 07/24/23 Range/Units 07:16 07:30 07:32 WBC 4.39 L (4.8-10.8) K/ul RBC 4.24 (4.20-5.40) M/uL Hgb 13.4 (12.0-16.0) g/dl Hct 39.9 (37.0-47.0) % MCV 94.1 (80.0-100.0) fL MCH 31.6 (25.0-34.0) pg MCHC 33.6 (32.0-36.0) g/dL RDW Std Deviation 45.4 (36.4-46.3) fL RDW Coeff of Leah 13.3 (11.5-14.5) % Plt Count 92 L (130-400) K/uL MPV 11.2 (9.4-12.4) fL Immature Gran % (Auto) 0.2 % Neut % (Auto) 53.8 % Lymph % (Auto) 34.4 % [place] % (Auto) 8.4 % Eos % (Auto) 2.7 % Baso % (Auto) 0.5 % Neut # (Auto) 2.36 (1.40-6.50) K/uL Lymph # (Auto) 1.51 (1.20-3.40) K/uL [place] # (Auto) 0.37 (0.11-0.59) K/uL Eos # (Auto) 0.12 (0.00-0.50) K/uL Baso # (Auto) 0.02 (0.00-0.20) K/uL Immature Gran # (Auto) 0.01 (0.01-0.20) K/uL PT 12.6 H (9.0-12.0) Seconds INR 1.2 H (0.9-1.1) APTT 27 (21-31) Seconds PTT Ratio 1.0 Sodium 136 (136-145) mmol/L Potassium 4.5 (3.5-5.1) mmol/L Chloride 106 (98-107) mmol/L Carbon Dioxide 22 (21-32) mmol/L Anion Gap 8 (3-11) BUN 47 H (6-23) mg/dl Creatinine 1.61 H (0.6-1.2) mg/dl Est Cr Clr Drug Dosing 30.5 ml/min Est GFR ( Amer) 34.9 ml/min Est GFR (Non-Af Amer) 30.1 ml/min BUN/Creatinine Ratio 29.2 H (10-20) Glucose 203 H (70-99(Fasting)) mg/dl Lactate (0.4-2.0) mmol/L Calcium 9.1 (8.6-10.3) mg/dl Magnesium 1.6 L (1.7-2.4) mg/dl Total Bilirubin 0.9 (0.2-1.0) mg/dl AST 34 (13-39) U/L ALT 20 (7-52) U/L Alkaline Phosphatase 100 (34-104) U/L Ammonia (18-72) umol/L Troponin I High Sens 20.5 H (0-14) pg/ml Total Protein 7.9 (6.0-8.3) gm/dl Albumin 3.2 L (3.4-5.0) gm/dl Globulin 4.7 H (2.5-4.0) gm/dl Albumin/Globulin Ratio 0.7 L (0.9-2) TSH 2.137 (0.300-4.500) uIu/ml Urine Color Yellow Urine Appearance Clear (Clear) Urine pH 5.5 (4.5-7.5) Ur Specific [place] 1.014 (1.000-1.030) Urine Protein 1+ H (Negative) Urine Glucose (UA) Negative (Negative) Urine Ketones Negative (Negative) Urine Blood Trace H (Negative) Urine Nitrite Negative (Negative) Urine Bilirubin Negative (Negative) Urine Urobilinogen Negative (Negative) Ur Leukocyte Esterase Negative (Negative) Urine WBC (Auto) 1-5 (0-5) /hpf Urine RBC (Auto) 0-4 (0-4) /hpf U Hyaline Cast (Auto) 5-10 H (0-5) /lpf U Epithel Cells (Auto) 20-30 H (0-5) /lpf Urine Bacteria (Auto) Negative (Negative) SARS-CoV-2 (PCR) NEGATIVE (Negative) Influenza Type A (PCR) Negative (Neg) Influenza Type B (PCR) Negative (Neg) RSV (RT-PCR) Negative (Neg) 07/24/23 07/24/23 07/24/23 Range/Units 07:38 09:15 09:59 WBC (4.8-10.8) K/ul RBC (4.20-5.40) M/uL Hgb (12.0-16.0) g/dl Hct (37.0-47.0) % MCV (80.0-100.0) fL MCH (25.0-34.0) pg MCHC (32.0-36.0) g/dL RDW Std Deviation (36.4-46.3) fL RDW Coeff of Leah (11.5-14.5) % Plt Count (130-400) K/uL MPV (9.4-12.4) fL Immature Gran % (Auto) % Neut % (Auto) % Lymph % (Auto) % [place] % (Auto) % Eos % (Auto) % Baso % (Auto) % Neut # (Auto) (1.40-6.50) K/uL Lymph # (Auto) (1.20-3.40) K/uL [place] # (Auto) (0.11-0.59) K/uL Eos # (Auto) (0.00-0.50) K/uL Baso # (Auto) (0.00-0.20) K/uL Immature Gran # (Auto) (0.01-0.20) K/uL PT (9.0-12.0) Seconds INR (0.9-1.1) APTT (21-31) Seconds PTT Ratio Sodium (136-145) mmol/L Potassium (3.5-5.1) mmol/L Chloride (98-107) mmol/L Carbon Dioxide (21-32) mmol/L Anion Gap (3-11) BUN (6-23) mg/dl Creatinine (0.6-1.2) mg/dl Est Cr Clr Drug Dosing ml/min Est GFR ( Amer) ml/min Est GFR (Non-Af Amer) ml/min BUN/Creatinine Ratio (10-20) Glucose (70-99(Fasting)) mg/dl Lactate 1.5 (0.4-2.0) mmol/L Calcium (8.6-10.3) mg/dl Magnesium (1.7-2.4) mg/dl Total Bilirubin (0.2-1.0) mg/dl AST (13-39) U/L ALT (7-52) U/L Alkaline Phosphatase (34-104) U/L Ammonia 132.0 H (18-72) umol/L Troponin I High Sens 23.1 H (0-14) pg/ml Total Protein (6.0-8.3) gm/dl Albumin (3.4-5.0) gm/dl Globulin (2.5-4.0) gm/dl Albumin/Globulin Ratio (0.9-2) TSH (0.300-4.500) uIu/ml Urine Color Urine Appearance (Clear) Urine pH (4.5-7.5) Ur Specific [place] (1.000-1.030) Urine Protein (Negative) Urine Glucose (UA) (Negative) Urine Ketones (Negative) Urine Blood (Negative) Urine Nitrite (Negative) Urine Bilirubin (Negative) Urine Urobilinogen (Negative) Ur Leukocyte Esterase (Negative) Urine WBC (Auto) (0-5) /hpf Urine RBC (Auto) (0-4) /hpf U Hyaline Cast (Auto) (0-5) /lpf U Epithel Cells (Auto) (0-5) /lpf Urine Bacteria (Auto) (Negative) SARS-CoV-2 (PCR) (Negative) Influenza Type A (PCR) (Neg) Influenza Type B (PCR) (Neg) RSV (RT-PCR) (Neg) Administered Medications Discontinued Medications Apixaban (Apixaban 2.5 Mg Tab) 2.5 mg PO NOW STA Stop: 07/24/23 10:51 Last Admin: 07/24/23 11:18 Dose: 2.5 mg Documented By: JOS Furosemide (Furosemide 40 Mg Tab) 40 mg PO NOW ONE Stop: 07/24/23 10:51 Last Admin: 07/24/23 11:18 Dose: 40 mg Documented By: JOS Sodium Chloride (Nss) 500 mls @ 999 mls/hr IV .Q31M ONE Stop: 07/24/23 07:47 Last Infusion: 07/24/23 10:55 Dose: Infused Documented By: Admin: 07/24/23 07:47 Dose: 999 mls/hr Documented By: ROHITH Magnesium Sulfate/Dextrose (Magnesium Sulfate / D5w) 1 gm in 100 mls @ 100 mls/hr IV NOW STA Stop: 07/24/23 09:39 Last Infusion: 07/24/23 11:23 Dose: Infused Documented By: Admin: 07/24/23 10:23 Dose: 100 mls/hr Documented By: ROHITH Magnesium Sulfate/Dextrose (Magnesium Sulfate / D5w) 1 gm in 100 mls @ 100 mls/hr IV Q1H ARMANDO Stop: 07/24/23 12:59 Last Infusion: 07/24/23 13:45 Dose: Infused Documented By: Admin: 07/24/23 12:23 Dose: 100 mls/hr Documented By: Infusion: 07/24/23 12:23 Dose: Infused Documented By: Admin: 07/24/23 11:18 Dose: 100 mls/hr Documented By: JOS Labetalol HCl (Labetalol Hcl Iv 5 Mg/Ml 20ml) 10 mg IV NOW STA Stop: 07/24/23 08:42 Last Admin: 07/24/23 10:23 Dose: 10 mg Documented By: ROHITH Co-signed By: JAYLIN Lactulose (Lactulose Syrup 30 Gm/45 Ml Udp) 30 gm PO NOW STA Stop: 07/24/23 09:45 Last Admin: 07/24/23 10:23 Dose: 30 gm Documented By: ROHITH Propranolol HCl (Propranolol Hcl 10 Mg Tab) 10 mg PO NOW STA Stop: 07/24/23 10:49 Last Admin: 07/24/23 11:17 Dose: 10 mg Documented By: JOS Rifaximin (Rifaximin 550 Mg Tablet) 550 mg PO NOW STA Stop: 07/24/23 10:49 Last Admin: 07/24/23 11:18 Dose: 550 mg Documented By: JOS Spironolactone (Spironolactone 25 Mg Tab) 25 mg PO NOW ONE Stop: 07/24/23 10:49 Last Admin: 07/24/23 11:18 Dose: 25 mg Documented By: JOS Imaging Data Radiologist's Impression: Chest X-Ray 07/24/23 07:17 XR chest 1V portable CLINICAL HISTORY: weakness COMPARISON STUDY: Chest radiograph July 13, 2023. Chest CT November 22, 2022. FINDINGS: Low lung volumes are again noted. There is no pneumothorax or pleural effusion. Moderate cardiomegaly is unchanged. There is pulmonary vascular congestion without overt pulmonary edema. No consolidation to suggest pneumonia. IMPRESSION: Cardiomegaly with pulmonary vascular congestion, similar to prior chest radiograph. ACT 112: Negative or not required by law. Electronically signed by: Eris Friedman M.D. 07/24/2023 8:[address] 07/24/23 07:18 CT OF THE HEAD WITHOUT CONTRAST CLINICAL HISTORY: slurring COMPARISON STUDY: MRI of the brain February 14, 2023. Head CT July 13, 2023. CT DOSE: 625.8 mGy.cm TECHNIQUE: Helical axial images of the head were obtained without IV contrast. Automated exposure control was utilized for the study. A dose lowering technique was utilized adhering to the principles of ALARA. FINDINGS: This study is mildly compromised by motion artifact. No acute intracranial hemorrhage, midline shift or mass effect is present. Right middle cranial fossa meningioma is unchanged. Ventricular system is stable. Basal cisterns are patent. There are no extra-axial collections. White matter hypodensity suggests small vessel disease. There are no findings to suggest acute dural sinus thrombosis or acute territorial infarct. There are no calvarial fractures. IMPRESSION: 1. No acute intracranial findings. No change in appearance of the brain. 2. Exam mildly compromised by motion artifact. ACT 112: Negative or not required by law. Electronically signed by: Eris Friedman M.D. 07/24/2023 8:46 AM Discharge Plan Visit Data Chief Complaint: Stroke/CVA Symptoms Stated Complaint: STROKE SX ED Provider: Kenny Medina Discharge Problem: Altered mental status, Hyperammonemia, Slurred speech, Liver disease, Hypertension Patient Disposition: Admitted As Inpatient Condition: Fair Discharge Instructions Interventions: ED Discharge Assessment Last Done: 07/24/23 13:01 Discharge Problem: Altered mental status Qualifiers: Altered mental status type: somnolence Qualified Code(s): R40.0 - Somnolence Hypertension Qualifiers: Hypertension type: unspecified Qualified Code(s): I10 - Essential (primary) hypertension
[2023-07-24 08:08] LABS: Appearance Urine Clear (Clear); Bacteria Urine Automated Negative (Negative); Bilirubin Urine Negative (Negative); Blood Urine Trace (Negative); Color Urine Yellow; Epithelial Cell Urine Auto 20-30 /lpf (0-5); Glucose Urine UA Negative (Negative); Ketones Urine Negative (Negative); Leukocyte Esterase Urine Negative (Negative); Nitrite Urine Negative (Negative); Protein Urine 1+ (Negative); RBC Urine Automated 0-4 /hpf (0-4); Specific Gravity Urine 1.014 (1.000-1.030); Urobilinogen Urine Negative (Negative); pH Urine 5.5 (4.5-7.5)
[2023-07-24 08:14] LABS: Basophils # (auto) 0.02 K/uL (0.00-0.20); Basophils % (auto) 0.5 %; Eosinophils # (auto) 0.12 K/uL (0.00-0.50); Eosinophils % (auto) 2.7 %; Hematocrit (blood only) 39.9 % (37.0-47.0); Hemoglobin 13.4 g/dl (12.0-16.0); Immature Granulocytes # (auto) 0.01 K/uL (0.01-0.20); Immature Granulocytes % (auto) 0.2 %; Lymphocytes # (auto) 1.51 K/uL (1.20-3.40); Lymphocytes % (auto) 34.4 %; Mean Corpuscular Hemoglobin 31.6 pg (25.0-34.0); Mean Corpuscular Hgb Conc 33.6 g/dL (32.0-36.0); Mean Corpuscular Volume 94.1 fL (80.0-100.0); Mean Platelet Volume 11.2 fL (9.4-12.4); Monocytes # (auto) 0.37 K/uL (0.11-0.59); Monocytes % (auto) 8.4 %; Neutrophils # (auto) 2.36 K/uL (1.40-6.50); Neutrophils % (auto) 53.8 %; Platelet Count 92 K/uL (130-400); RDW Coefficient of Variation 13.3 % (11.5-14.5); RDW Standard Deviation 45.4 fL (36.4-46.3); Red Blood Count 4.24 M/uL (4.20-5.40); White Blood Count 4.39 K/ul (4.8-10.8)
--- NOTE | 2023-07-24 08:14 | XRay Report ---
XR chest 1V portable CLINICAL HISTORY: weakness COMPARISON STUDY: Chest radiograph July 13, 2023. Chest CT November 22, 2022. FINDINGS: Low lung volumes are again noted. There is no pneumothorax or pleural effusion. Moderate ca rdiomegaly is unchanged. There is pulmonary vascular congestion without overt pulmonary edema. No con solidation to suggest pneumonia. IMPRESSION: Cardiomegaly with pulmonary vascular congestion, similar to prior chest radiograph. ACT 112: Negative or not required by law. Electronically signed by: Eris Friedman M.D. 07/24/2023 8:13 AM
[2023-07-24 08:29] LABS: Albumin Globulin Ratio 0.7 (0.9-2); Albumin Level 3.2 gm/dl (3.4-5.0); BUN Creatinine Ratio 29.2 (10-20); Bilirubin,Total 0.9 mg/dl (0.2-1.0); Calcium 9.1 mg/dl (8.6-10.3); Creatinine Clr Calc Pharmacy 30.5 ml/min; Est GFR (African American) 34.9 ml/min; Est GFR (Non-African American) 30.1 ml/min; Globulin 4.7 gm/dl (2.5-4.0); Magnesium 1.6 mg/dl (1.7-2.4); Potassium 4.5 mmol/L (3.5-5.1); Total Protein 7.9 gm/dl (6.0-8.3)
[2023-07-24 08:34] LABS: Troponin I High Sensitivity 20.5 pg/ml (0-14)
[2023-07-24 08:40] LABS: INR 1.2 (0.9-1.1); Partial Thromboplastin Time 27 Seconds (21-31); Prothrombin Time 12.6 Seconds (9.0-12.0)
[2023-07-24] MEDS ORDERED: MAGNESIUM SULFATE / D5W 1 GM/100 ML BAG IV STA (08:40)
[2023-07-24] MEDS ORDERED: LABETALOL HCL IV 5 MG/ML 20ML IV STA (08:41)
[2023-07-24 08:43] LABS: Influenza A virus by PCR Negative (Neg); Influenza B virus by PCR Negative (Neg); RSV by PCR Negative (Neg); SARS CoV2 RNA(COVID-19) Ceph NEGATIVE (Negative)
[2023-07-24 08:43] LABS: Thyroid Stimulating Hormone 2.137 uIu/ml (0.300-4.500)
--- NOTE | 2023-07-24 08:49 | CT Scan Report ---
CT OF THE HEAD WITHOUT CONTRAST CLINICAL HISTORY: slurring COMPARISON STUDY: MRI of the brain February 14, 2023. Head CT July 13, 2023. CT DOSE: 625.8 mGy.cm TECHNIQUE: Helical axial images of the head were obtained without IV contrast. Automated exposure con trol was utilized for the study. A dose lowering technique was utilized adhering to the principles o f ALARA. FINDINGS: This study is mildly compromised by motion artifact. No acute intracranial hemorrhage, midl ine shift or mass effect is present. Right middle cranial fossa meningioma is unchanged. Ventricular system is stable. Basal cisterns are patent. There are no extra-axial collections. White matter hypod ensity suggests small vessel disease. There are no findings to suggest acute dural sinus thrombosis o r acute territorial infarct. There are no calvarial fractures. IMPRESSION: 1. No acute intracranial findings. No change in appearance of the brain. 2. Exam mildly compromised by motion artifact. ACT 112: Negative or not required by law. Electronically signed by: Eris Friedman M.D. 07/24/2023 8:46 AM
[2023-07-24] MEDS ORDERED: LACTULOSE SYRUP 30 GM/45 ML UDP PO STA (09:44)
--- NOTE | 2023-07-24 10:26 | History & Physical Report ---
Date of Service July 24, 2023 Assessment & Plan (1) Weakness: Plan: -Admit to med/tele -Currently hemodynamically stable and stable on RA -Patient presented to the ED with increased weakness and slurred speech which began last night per family -CT of the head/brain negative for acute findings -Ammonia elevated at 132 -At this time the patient's generalized weakness and slurred speech are most likely due to acute hepatic encephalopathy -No other focal neuro defects on exam -Patient and niece confirm that she typically presents like this when her ammonia is elevated -Will obtain stat VBG to monitor her CO2 with her history of ROSALES and hx of noncompliance with HS CPAP in the past -S/P 30 mg PO Lactulose in the ED -Will give her am medications, including her am dose of BID Rifaximin -Will re-evaluate that patient in a few hours, if not clinically improving will obtain MRI of the brain -Has been afebrile, WBC WNL, CXR negative for consolidation, UA negative for infection -Will obtain stool studies to rule out infective gastroenteritis with recent increased diarrheal episodes -Continue Eliquis for DVT PPX -HH/DMII diet with 2 gram sodium restriction -Fall/aspiration precautions -AM CBC, CMP, mag, PT/INR (2) Hepatic encephalopathy: Plan: -Ammonia elevated at 132 -All LFT's are WNL -INR of 1.2 -Unsure of the inciting event at this time, could be gastroenteritis with her recent episodes of diarrhea and vomiting -Monitor clinically for improvement -Follow stool studies -Continue lasix, spironolactone, Lactulose, and Rifaximin -Monitor that patient has 3-4 loose BM's daily (3) Diarrhea: Plan: -Denies bloody BM's -Follow stool studies (4) Nausea & vomiting: Plan: -One episode of non-bloody emesis this am (5) Type 2 DM with CKD stage 4 and hypertension: Plan: -Has been diet controlled -Last A1c on 06/18 was 7.3 -Monitor BSG ACHS goal is 1101-40 -Start CF of 50 ACHS for now -Monitor BSG moving forward and adjust regimen as needed -Patient was previously on metformin but this was stopped with stable A1c and decreased renal and liver function -HH/DMII diet (6) Hypomagnesemia: Plan: -Noted to be 1.6 this am -Is a chronic problem likely exacerbated with recent vomiting and diarrhea -S/P 1 dose of 1gm IV mag-sulfate in the ED -Will give an additional 2gm IV mag sulfate on admission -Continue home mag supplement -Monitor am mag level (7) PAF (paroxysmal atrial fibrillation): Plan: -Currently in NSR -Continue Eliquis, (8) Hypothyroidism: Plan: -TSH WNL today -Continue levothyroxine (9) ROSALES (obstructive sleep apnea): Plan: -HS CPAP ordered Plan The patient was discussed with Dr. Lucero at the time of the admission History of Present Illness Chief Complaint: Stroke-Like Symptoms Primary Care Provider: Jian Pierce DO Boyer is a 77 year old female GREGORY cirrhosis, strep bacteremia and infective endocarditis, afib on Eliquis, HTN, stage 3 CKD, chronic DVT with IVC filter, aortic stenosis, HFpEF, MGUS, DM2, HLD, ROSALES on CPAP, and chronic back who presents to the [facility] ED on 07/24 who presented to the [facility] ED via EMS with generalized weakness and slurred speech at approximately 0400 this am. She remained stable in the ED. Labs were significant for an INR of 1.2, mag of 1.6, ammonia of 132, initial high sen trop of 20, UA no indicative of UTI, and Covid 19/Influenza/RSV negative. CT of the head/brain wo con was read as "1. No acute intracranial findings. No change in appearance of the brain. 2. Exam mildly compromised by motion artifact.". Chest xray was read as " Cardiomegaly with pulmonary vascular congestion, similar to prior chest radiograph. ". Prior to admission the patient was given 10 mg IV labetalol, 30 mg PO lactulose, 1gm IV mag sulfate, and 500 mL NSS. At the time of the exam the patient was sitting in bed in no acute distress. She is awake and alert but is mildly fatigued at the time of the exam. She just took a dose of PO lactulose prior to my exam. She states that she currently feels fine and has no complaints. She confirms that she often slurs her words when her ammonia is elevated. Denies an new neurologic symptoms, fever, chills, chest pain, SOB, cough, abd pain, dysuria, hematuria, melena, new LE swelling, and recent trauma. She did have an episode of nausea and vomiting this am prior to EMS arrival. She states that she has been taking her lactulose and rifaximin as prescribed and has been having at least 3 loose BM's daily. She states that she had approximately 8 bowel movements two days ago. I called and spoke to her Niece/primary caregiver, Rosalind Joel, whom the patient also lives with. She confirms that the patient has been taking her medications as prescribed, had increased diarrhea approximately 48 hours, had the nausea and vomiting this am, and started to act more weak and confused yesterday. Her Niece states that they wanted to bring her to the ED yesterday but the patient continued to refuse until around 0700 this am. She confirms that the patient did not have her am medications prior to EMS arrival. She also confirms that the patient slurs her words and is more fatigued when her ammonia is elevated. The patient is a DNR/DNI. Please refer to Dr. Lucero's attestation for any changes to the treatment plan Allergies Allergy/AdvReac Type Severity Reaction Status Date / Time No Known Allergies Allergy Verified 07/24/23 10:07 Home Medications Medication Instructions Recorded Confirmed Type cholecalciferol (vitamin D3) 50 2,000 unit PO QAM 07/01/18 07/24/23 History mcg (2,000 unit) capsule (Vitamin D3) multivitamin 1 tab PO QAM 10/14/19 07/24/23 History vitamin E 268 mg (400 unit) capsule 400 unit PO QAM 08/14/20 07/24/23 History coenzyme Q10 200 mg capsule 200 mg PO DAILY 11/01/21 07/24/23 History atorvastatin 10 mg tablet 10 mg PO HS #90 tabs 09/08/22 07/24/23 Rx magnesium chloride 64 mg 128 mg (2 x 64 mg) PO TID #540 tabs 09/08/22 07/24/23 Rx (magnesium chloride) tablet,delayed release furosemide 40 mg tablet See Rx Instructions .Route .COMPLEX 11/21/22 07/24/23 History spironolactone 25 mg tablet 25 mg PO DAILY #90 tabs 12/06/22 07/24/23 Rx propranolol 10 mg tablet 10 mg PO TID 90 days #270 tabs 01/23/23 07/24/23 Rx apixaban 2.5 mg tablet (Eliquis) 2.5 mg PO BID #60 tabs 02/13/23 07/24/23 Rx levothyroxine 75 mcg tablet 75 mcg PO DAILY #90 tabs 03/01/23 07/24/23 Rx lactulose 10 gram/15 mL (15 mL) 30 g (45 mL) PO TID #0 mL 06/21/23 07/24/23 Rx oral solution pantoprazole 40 mg tablet,delayed 40 mg PO QAM #0 tabs 06/21/23 07/24/23 Rx release rifaximin 550 mg tablet (Xifaxan) 550 mg PO BID #60 tabs 07/14/23 07/24/23 Rx Past Med/Surg History Medical History Aortic stenosis Hepatic encephalopathy Presence of IVC filter Rectal bleeding Hypomagnesemia Generalized weakness Stage 3b chronic kidney disease Nausea vomiting and diarrhea Dizziness Acute hyperkalemia Encephalopathy acute Nausea & vomiting Rhinovirus Acute on chronic diastolic heart failure Volume overload Lactate blood increase Vomiting and diarrhea Cough Wheezing Weakness DVT (deep venous thrombosis) Elevated troponin EMY (acute kidney injury) Thrombocytopenia Chronic deep vein thrombosis (DVT) Fever Pulmonary embolism 2018 > no known cause > Filter to right groin Diverticular hemorrhage resolved GI bleed none at present Esophageal varices determined by endoscopy Monoclonal gammopathy Osteoarthritis GERD (gastroesophageal reflux disease) Migraine Vertigo Surgical History History of laparoscopic cholecystectomy History of section x3 History of bilateral breast reduction surgery History of dilatation and curettage History of carpal tunnel release of both wrists History of total left knee replacement (TKR) History of total right knee replacement (TKR) History of lumbar spinal fusion hardware in place History of colonoscopy History of esophagogastroduodenoscopy (EGD) History of tooth extraction all teeth History of tonsillectomy History of bilateral cataract extraction Family History Mother Family history of diabetes mellitus Brother Family history of diabetes mellitus 3 brothers Colorectal cancer Myocardial infarction x 2 Father Myocardial infarction Denies family history of Ovarian cancer Prostate cancer Breast cancer Social History Smoking Status: Former smoker Tobacco Type: Cigarettes Age Started Using Tobacco: 15; Age Quit Using Tobacco: 21; Cigarettes Per Day: stopped 55 years ago; Second Hand Exposure: No; Do You Dip or Chew Tobacco: No; Hx Alcohol Use: No Hx Substance Use: No Preferred Language: Pakistani Communication Ability: Effective Visual Impairment: Limited Hearing Ability: Normal [employer] Required: No Beliefs That Will Affect Care: None marital status: / Current Living Situation: Family Current Living Situation Comment: Lives with nesarah current occupational status: retired How many Children do You have: 3 Feels Safe at Home: Yes Childhood Exposure to Second-Hand Smoke: Yes Diet: regular caffeine: Yes (tea) during the past year weight has: remained stable Dental Care, Regularly: No Physical Activity Frequency: Does not Exercise Seatbelt Use: always Sunscreen Use: No Do you think of yourself as: straight/heterosexual Gender Identity: Female Assistive Devices: Hospital Bed and Walker Physical Exam Physical Exam: Physical Exam: General: In no acute distress, stated age, well-nourished, good hygiene, non- toxic appearing HEENT: Normocephalic, atraumatic, no scleral icterus, pupils around round, symmetrical, and reactive to light, moist mucus membranes, trachea midline, no thyromegaly Chest/Pulm: No respiratory distress, symmetrical chest expansion, clear breath sounds throughout Cardiac: RRR, 3/6 systolic murmur noted Abdomen: Negative for ascites and bruising, normoactive bowel sounds, soft, non-tender to palpation throughout Musculoskeletal: Symmetrical and without signs of acute trauma, upper and lower extremities with full ROM, no atrophy, spasticity, or flaccidity Extremities: Radial, dorsalis pedis, and posterior tibial pulses are intact and symmetrical, LLE chronically more swollen than right per patient Skin: Warm, dry, no rashes , lesions, or scars noted Neuro: Alert and oriented to person, place, month, year, and president, patient currently slurring words but otherwise no focal defects, CN II-XII tested and intact, negative BL pronator drift and cerebellar testing, no tremors noted Psych: No acute distress, fatigued but not agitated or confused, calm and cooperative during the exam Results & Data Results & Data Vital Signs (Past 12 Hours) Vital Signs Temp Pulse Resp BP Pulse Ox O2 Del Method O2 Flow Rate 07/24/23 08:23 100 Room Air 0 07/24/23 08:12 73 07/24/23 07:11 36.4 C L 78 16 149/120 H 100 Room Air Laboratory Results Abnormal lab results 07/24/23 07/24/23 07/24/23 Range/Units 07:16 07:30 09:15 WBC 4.39 L (4.8-10.8) K/ul Plt Count 92 L (130-400) K/uL PT 12.6 H (9.0-12.0) Seconds INR 1.2 H (0.9-1.1) BUN 47 H (6-23) mg/dl Creatinine 1.61 H (0.6-1.2) mg/dl BUN/Creatinine Ratio 29.2 H (10-20) Glucose 203 H (70-99(Fasting)) mg/dl Magnesium 1.6 L (1.7-2.4) mg/dl Ammonia 132.0 H (18-72) umol/L Troponin I High Sens 20.5 H (0-14) pg/ml Albumin 3.2 L (3.4-5.0) gm/dl Globulin 4.7 H (2.5-4.0) gm/dl Albumin/Globulin Ratio 0.7 L (0.9-2) Urine Protein 1+ H (Negative) Urine Blood Trace H (Negative) U Hyaline Cast (Auto) 5-10 H (0-5) /lpf U Epithel Cells (Auto) 20-30 H (0-5) /lpf 07/24/23 Range/Units 09:59 WBC (4.8-10.8) K/ul Plt Count (130-400) K/uL PT (9.0-12.0) Seconds INR (0.9-1.1) BUN (6-23) mg/dl Creatinine (0.6-1.2) mg/dl BUN/Creatinine Ratio (10-20) Glucose (70-99(Fasting)) mg/dl Magnesium (1.7-2.4) mg/dl Ammonia (18-72) umol/L Troponin I High Sens 23.1 H (0-14) pg/ml Albumin (3.4-5.0) gm/dl Globulin (2.5-4.0) gm/dl Albumin/Globulin Ratio (0.9-2) Urine Protein (Negative) Urine Blood (Negative) U Hyaline Cast (Auto) (0-5) /lpf U Epithel Cells (Auto) (0-5) /lpf Diagnostic Findings Chest X-Ray 07/24/23 07:17 XR chest 1V portable CLINICAL HISTORY: weakness COMPARISON STUDY: Chest radiograph July 13, 2023. Chest CT November 22, 2022. FINDINGS: Low lung volumes are again noted. There is no pneumothorax or pleural effusion. Moderate cardiomegaly is unchanged. There is pulmonary vascular congestion without overt pulmonary edema. No consolidation to suggest pneumonia. IMPRESSION: Cardiomegaly with pulmonary vascular congestion, similar to prior chest radiograph. ACT 112: Negative or not required by law. Electronically signed by: Eris Friedman M.D. 07/24/2023 8:[address] 07/24/23 07:18 CT OF THE HEAD WITHOUT CONTRAST CLINICAL HISTORY: slurring COMPARISON STUDY: MRI of the brain February 14, 2023. Head CT July 13, 2023. CT DOSE: 625.8 mGy.cm TECHNIQUE: Helical axial images of the head were obtained without IV contrast. Automated exposure control was utilized for the study. A dose lowering technique was utilized adhering to the principles of ALARA. FINDINGS: This study is mildly compromised by motion artifact. No acute int racranial hemorrhage, midline shift or mass effect is present. Right middle cranial fossa meningioma is unchanged. Ventricular system is stable. Basal cisterns are patent. There are no extra-axial collections. White matter hypodensity suggests small vessel disease. There are no findings to suggest acute dural sinus thrombosis or acute territorial infarct. There are no calvarial fractures. IMPRESSION: 1. No acute intracranial findings. No change in appearance of the brain. 2. Exam mildly compromised by motion artifact. ACT 112: Negative or not required by law. Electronically signed by: Eris Friedman M.D. 07/24/2023 8:46 AM ECG Additional Comments: Normal sinus rhythm Right bundle branch block Left anterior fascicular block Bifascicular block Minimal voltage criteria for LVH, may be normal variant ( R in aVL ) Abnormal ECG When compared with ECG of 13-JUL-2023 07:04, No signific ant change was found Code Status & VTE Plan Code Status DNR/DNI VTE Prophylaxis Plan VTE Prophylaxis will be ordered: Yes Supervising Physician Co-Signing Physician Notes Patient was seen and examined independently I discussed the case with Tristan CARTER I reviewed pertinent past medical social family history and also the plan of care and agree with the plan of care. Patient presents with toxic encephalopathy from hepatic encephalopathy with elevated ammonia. She has a history of the same likely from GREGORY. Patient denies any dietary or medication indiscretion. Did have some voluminous diarrhea earlier in the week with some alteration of her medication. She currently is with some slurred speech but she is oriented to place and time she denies any abdominal pain she does not any urinary symptoms denies any recent paracentesis she says she is only had 1 paracentesis in her life. Examination reveals her to be conversant awake vital signs are stable Cardiopulmonary exam is stable at this time Abdomen is obese NABS soft no fluid wave Extremities are without edema hepatic encephalopathy undetermined event that spurred this we will continue to treat as such evaluate and for secondary infectious etiologies to may have created this issue. hyperammonemia, continue lactulose and rifamixin and monitor pending stool studies GREGORY, continue lastulose, rifamixin, lasix and spironolactone Diabetes, controlled and chronic basal bolus insulin PAF, rate controled and in NSR with propranolol( prob for reducing variceal pressure) , AC with Eliquis ROSALES on cpap hs Any exceptions will be noted below PG Care Time/CCT Total # of Minutes Spent Total Time Spent with Patient: Total time spent is greater than 50% in coordination of care (as documented) at patient's floor/unit and/or counseling patient: Coding [place] [address] INT INP/OBS CARE 3/75MIN Patient Type Established History Comprehensive Exam Comprehensive Medical Decision Making High Complexity Diagnoses Weakness R53.1 Hepatic encephalopathy K76.82 Diarrhea R19.7 Nausea & vomiting R11.2 Type 2 DM with CKD stage 4 and hypertension E11.22; I12.9; N18.4 Hypomagnesemia E83.42 PAF (paroxysmal atrial fibrillation) I48.0 Hypothyroidism E03.9 ROSALES (obstructive sleep apnea) G47.33
[2023-07-24] MEDS ORDERED: rifAXIMin 550 MG TABLET PO STA (10:48)
[2023-07-24] MEDS ORDERED: PROPRANOLOL HCL 10 MG TAB PO STA (10:48)
[2023-07-24] MEDS ORDERED: SPIRONOLACTONE 25 MG TAB PO ONE (10:48)
[2023-07-24] MEDS ORDERED: FUROSEMIDE 40 MG TAB PO ONE (10:50)
[2023-07-24] MEDS ORDERED: APIXABAN 2.5 MG TAB PO STA (10:50)
[2023-07-24] MEDS: MAGNESIUM SULFATE / D5W 1 GM/100 ML BAG IV SCH ×2 (11:18→12:23)
[2023-07-24] MEDS ORDERED: GLUCOSE 10 TAB/TUBE PO PRN (11:22)
[2023-07-24] MEDS ORDERED: GLUCOSE 40% GEL 15 GM TUBE PO PRN (11:22)
[2023-07-24] MEDS ORDERED: CARBOHYDRATES FOR HYPOGLYCEMIA PO PRN (11:22)
[2023-07-24] MEDS ORDERED: DEXTROSE 50% 50 ML SYRINGE IV PRN (11:22)
[2023-07-24] MEDS ORDERED: GLUCAGON FOR INJ 1 MG VIAL SQ PRN (11:22)
[2023-07-24 12:00] LABS: HCO3 VBG 24 mmol/L; Oxygen Saturation VBG 66.8 %; PCO2 VBG 46 mmHg (38-50); PO2 VBG 43 mmHg; pH VBG 7.33 (7.36-7.41)
[2023-07-24] MEDS ORDERED: FUROSEMIDE 40 MG TAB PO SCH (13:00)
--- NOTE | 2023-07-24 14:43 | Electrocardiogram Report ---
Test Reason : Blood Pressure : / mmHG Vent. Rate : 076 BPM Atrial Rate : 076 BPM P-R Int : 130 ms QRS Dur : 134 ms QT Int : 430 ms P-R-T Axes : 080 -49 002 degrees QTc Int : 483 ms Normal sinus rhythm Right bundle branch block Left anterior fascicular block Minimal voltage criteria for LVH, may be normal variant ( R in aVL ) Abnormal ECG When compared with ECG of 13-JUL-2023 07:04, No significant change was found Confirmed by Hayden Benavides ([id number]) on 07/24/2023 2:42:36 PM Referred By: REFERRED SELF Confirmed By:Hayden Benavides
[2023-07-24] MEDS: INSULIN ASPART PER UNIT CHARGE SC SCH ×3 (14:47→20:31)
[2023-07-24] MEDS: MAGNESIUM CHLORIDE W/CALCIUM 64MG DELAYED REL TAB PO SCH ×2 (16:12→20:32)
[2023-07-24] MEDS: LACTULOSE SYRUP 30 GM/45 ML UDP PO SCH ×2 (16:12→20:32)
[2023-07-24] MEDS: PROPRANOLOL HCL 10 MG TAB PO SCH ×2 (16:12→20:32)
[2023-07-24] MEDS ORDERED: ONDANSETRON 4 MG OD TAB PO PRN (19:43)
[2023-07-24] MEDS: rifAXIMin 550 MG TABLET PO SCH (20:32)
[2023-07-24] MEDS: APIXABAN 2.5 MG TAB PO SCH (20:32)
[2023-07-24] MEDS: ATORVASTATIN 10 MG TAB PO SCH (20:32)
[2023-07-25] MEDS: LEVOTHYROXINE SODIUM 75 MCG TABLET PO SCH (05:00)
[2023-07-25 05:11] LABS: A calco-baum cmplx NotReported Not Detected (NotDetected); Bact fragilis Not Reported Not Detected (NotDetected); Blood Culture Id Panel See PCR Comment (NotDetected); C auris Not Reported Not Detected (NotDetected); Calbicans Not Reported Not Detected (NotDetected); Candida glabrata Not Reported Not Detected (NotDetected); Candida krusei Not Reported Not Detected (NotDetected); Cneoformans/gatti Not Reported Not Detected (NotDetected); Cparapsilosis Not Reported Not Detected (NotDetected); E cloacae compx Not Reported Not Detected (NotDetected); Efaecalis Not Reported Not Detected (NotDetected); Efaecium Not Reported Not Detected (NotDetected); Enterobacterales Not Reported Not Detected (NotDetected); Escherichia coli Not Reported Not Detected (NotDetected); H influenzae Not Reported Not Detected (NotDetected); K aerogenes Not Reported Not Detected (NotDetected); Koxytoca Not Reported Not Detected (NotDetected); Kpneumoniae grp Not Reported Not Detected (NotDetected); Lmonocyt Not Reported Not Detected (NotDetected); N meningitidis Not Reported Not Detected (NotDetected); P aeruginosa Not Reported Not Detected (NotDetected); Proteus spp Not Reported Not Detected (NotDetected); Salmonella spp Not Reported Not Detected (NotDetected); Smarcescens Not Reported Not Detected (NotDetected); Staph lugdunensis Not Reported Not Detected (NotDetected); Staph spp. Not Reported DETECTED (NotDetected); Staphaureus Not Reported Not Detected (NotDetected); Staphepi Not Reported DETECTED (NotDetected); Staphylococcus spp. DETECTED (NotDetected); Stenmaltophilia Not Reported Not Detected (NotDetected); Strep agal(GrpB) Not Reported Not Detected (NotDetected); Strep pneum Not Reported Not Detected (NotDetected); Strep pyog (GrpA) Not Reported Not Detected (NotDetected); Strep spp Not Reported Not Detected (NotDetected); mecAC Resistant Gene DETECTED (NotDetected)
[2023-07-25 05:35] LABS: Staphylococcus epidermidis DETECTED (NotDetected)
[2023-07-25] MEDS: INSULIN ASPART PER UNIT CHARGE SC SCH ×5 (08:05→20:51)
[2023-07-25] MEDS: PROPRANOLOL HCL 10 MG TAB PO SCH ×3 (08:19→20:38)
[2023-07-25] MEDS: SPIRONOLACTONE 25 MG TAB PO SCH (08:19)
[2023-07-25] MEDS: PANTOprazole 40 MG TAB PO SCH (08:19)
[2023-07-25] MEDS: MAGNESIUM CHLORIDE W/CALCIUM 64MG DELAYED REL TAB PO SCH ×3 (08:20→20:38)
[2023-07-25] MEDS: FUROSEMIDE 40 MG TAB PO SCH (08:20)
[2023-07-25] MEDS: LACTULOSE SYRUP 30 GM/45 ML UDP PO SCH ×3 (08:20→20:37)
[2023-07-25] MEDS: APIXABAN 2.5 MG TAB PO SCH ×2 (08:20→20:37)
[2023-07-25] MEDS: rifAXIMin 550 MG TABLET PO SCH ×2 (09:58→20:37)
[2023-07-25 10:22] LABS: Hematocrit (blood only) 38.4 % (37.0-47.0); Hemoglobin 12.2 g/dl (12.0-16.0); Mean Corpuscular Hemoglobin 30.9 pg (25.0-34.0); Mean Corpuscular Hgb Conc 31.8 g/dL (32.0-36.0); Mean Corpuscular Volume 97.2 fL (80.0-100.0); Mean Platelet Volume 11.1 fL (9.4-12.4); Platelet Count 97 K/uL (130-400); RDW Coefficient of Variation 13.8 % (11.5-14.5); RDW Standard Deviation 49.8 fL (36.4-46.3); Red Blood Count 3.95 M/uL (4.20-5.40); White Blood Count 4.08 K/ul (4.8-10.8)
[2023-07-25 10:46] LABS: Albumin Globulin Ratio 0.7 (0.9-2); Albumin Level 2.8 gm/dl (3.4-5.0); BUN Creatinine Ratio 27.9 (10-20); Bilirubin,Total 0.8 mg/dl (0.2-1.0); Calcium 8.8 mg/dl (8.6-10.3); Creatinine Clr Calc Pharmacy 28.6 ml/min; Est GFR (African American) 32.2 ml/min; Est GFR (Non-African American) 27.8 ml/min; Globulin 4.2 gm/dl (2.5-4.0); Magnesium 1.9 mg/dl (1.7-2.4); Potassium 3.6 mmol/L (3.5-5.1)
[2023-07-25] MEDS: DAPTOmycin 500 MG in SYRINGE 0 ML IV SCH (10:59)
[2023-07-25] MEDS: FUROSEMIDE 20 MG TAB PO SCH (12:50)
[2023-07-25] MEDS: ACETAMINOPHEN 500 MG TAB PO PRN ×2 (14:25→20:36)
--- NOTE | 2023-07-25 15:09 | Hospitalist Progress Note ---
Date of Service July 25, 2023 Assessment & Plan (1) Hepatic encephalopathy: Plan: elevated ammonia level, asterixis, confusion, etc all c/w acute HE by report she had 10+ stools at home, but that would typically protect against the development of HE - so odd presentation despite multiple doses of lactulose since admission she has yet to have a bowel movement here needs 3-4 BMs/day may need lactulose enema(s) cont rifaximin BID she is having abdominal pain in the LLQ - plan to perform CT a/p to r/o diverticulitis, kidney stone, etc that could have instigated this acute HE episode (2) LLQ abdominal pain: Plan: prior imaging showed sigmoid diverticulosis will obtain CT a/p to r/o diverticulitis r/o other pathology causing the pain (3) Slurred speech: Plan: likely 2nd to #[address] head 07/24/23 - no acute findings; no change in meningioma (4) Hypomagnesemia: Plan: replaced with IV mag resolved 2nd to chronic lasix use cont mag chloride 128mg TID (home dosing) (5) Weakness: Plan: 2nd to #1, low mag, ?infectious process, combo of factors, etc PT, OT evals requested (6) Chronic right-sided congestive heart failure: Plan: follows with [facility] looks volume contracted today consider 1 liter of isotonic fluids hold am lasix tomorrow (7) History of DVT (deep vein thrombosis): Plan: noted with IVC filter in place she takes Eliquis 2.5mg BID chronically (8) Presence of IVC filter: (9) Hypothyroidism: Plan: TSH 2.1 cont synthroid (10) Stage 3b chronic kidney disease: Plan: Cr baseline 1.5 to 1.7 BMP in am (11) Morbid obesity: Plan: BMI 44 (12) PAF (paroxysmal atrial fibrillation): Plan: in sinus rhythm at this time cont Eliquis (13) 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 to alcohol: Plan: GREGORY cirrhosis does not appear decompensated from volume standpoint but now with acute HE as in #1 above cont lactulose cont rifaximin (14) Infective endocarditis: Plan: 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 s/p prolonged course of abx at that time November 2022 - echo showed valves w/o vegetations (15) ROSALES (obstructive sleep apnea): (16) Inflammatory arthritis: Plan: uric acid level in 04/2023 was 8.7 R 2nd toe and L mid-foot could be acute gouty arthritis her pain came on suddenly today obtain x-rays both feet - r/o fracture, r/o CPPD changes prednisone 10mg po x 1 now re-eval tomorrow for ongoing low-dose prednisone (17) Positive blood culture: Plan: 2 out of 4 admission blood cx's + for GPC clusters repeat blood cx's obtained started on daptomycin empirically although likely to be contamination, in light of prior bacteremia/endocarditis in 07/2022, will cover with antibiotics while following cultures Plan will need PT/OT Admission and Anticipated Discharge Date Admission Date: July 24, 2023 Subjective patient confused during the visit, stating she had come into the hospital "the day after " per staff she has not had a BM since admission Ms Dudley c/o LLQ abd pain during the visit she cannot tell me when it started she also c/o b/l foot pain that started abruptly this afternoon R 2nd toe also hurts by report she had a "controlled fall" in the ER prior to coming to the floor tele - sinus since admission Review of Systems Review of Systems: gen - fatigued/tired but no fevers or chills cv - no chest pain, no orthopnea pulm - no dyspnea GI - no nausea/vomiting Physical Exam Physical Exam: gen - morbidly obese, NAD, confused mouth - MM dry neck - no JVD heart - RRR (borderline bradycardic), s1 s2, no murmur lungs - CTA b/l abd - tender LLQ, BS+, no ascites, nondistended, no HSM ext - no edema, pulses 2+ b/l skin - stasis changes b/l shins musculo - right mid-foot without tenderness to palpation; R 2nd toe with s ynovitis (tender, warm, mild erythema); left mid-foot - tender to palpation; b/l ankles without synovitis neuro - positive for asterixis psych - a/o x 2 only Results & Data Results & Data Vital Signs (Past 12 Hours) Vital Signs Temp Pulse Pulse Resp BP Pulse Ox Pulse Ox 07/25/23 15:05 59 L 07/25/23 13:00 95 07/25/23 11:40 36.5 C 59 L 20 116/65 97 07/25/23 07:50 36.5 C 67 20 117/63 97 07/25/23 07:08 69 07/25/23 04:10 36.7 C 63 18 106/65 96 O2 Del Method O2 Del Method 07/25/23 15:05 07/25/23 13:00 Room Air 07/25/23 11:40 Room Air 07/25/23 07:50 Room Air 07/25/23 07:08 07/25/23 04:10 Room Air Laboratory Results Laboratory Results - last 24 hr 07/24/23 07/25/23 07/25/23 07:41 08:01 09:53 WBC 4.08 L RBC 3.95 L Hgb 12.2 Hct 38.4 MCV 97.2 MCH 30.9 MCHC 31.8 L RDW Std Deviation 49.8 H RDW Coeff of Leah 13.8 Plt Count 97 L MPV 11.1 Sodium 137 Potassium 3.6 Chloride 106 Carbon Dioxide 22 Anion Gap 9 BUN 48 H Creatinine 1.72 H Est Cr Clr Drug Dosing 28.6 Est GFR ( Amer) 32.2 Est GFR (Non-Af Amer) 27.8 BUN/Creatinine Ratio 27.9 H Glucose 216 H POC Glucose 125 H Calcium 8.8 Magnesium 1.9 Total Bilirubin 0.8 AST 33 ALT 18 Alkaline Phosphatase 92 Total Protein 7.0 Albumin 2.8 L Globulin 4.2 H Albumin/Globulin Ratio 0.7 L Stl C. cayetanensis PCR Stool Rotavirus A PCR Stl Adenov F 40/41 PCR Stool Astrovirus (PCR) Stool Campylobacter PCR Stl C. diff Tox B Gene Stool Cryptosporidium PCR Stl E.coli Shiga Tox PCR Stl Enterotoxigenic E PCR Stool EPEC (PCR) Stool EAEC (PCR) Stl E. histolytica PCR Stool Giardia Lamblia PCR Stool Salmonella PCR Stool Sapovirus (PCR) Stl P. shigelloides PCR Stl Shigella/EIEC PCR St Y.enterocolitica PCR Stool Vibrio (PCR) Stl Vibrio cholerae PCR Stl Norovirus GI/GII PCR Staphylococcus sp PCR DETECTED A mecA/C-Methicil Resis Gene DETECTED A Staph epidermidis (PCR) DETECTED A Bld Cult ID Panel PCR See PCR Comment 07/25/23 07/25/23 07/25/23 12:07 17:03 20:26 WBC RBC Hgb Hct MCV MCH MCHC RDW Std Deviation RDW Coeff of Leah Plt Count MPV Sodium Potassium Chloride Carbon Dioxide Anion Gap BUN Creatinine Est Cr Clr Drug Dosing Est GFR ( Amer) Est GFR (Non-Af Amer) BUN/Creatinine Ratio Glucose POC Glucose 253 H 139 H 190 H Calcium Magnesium Total Bilirubin AST ALT Alkaline Phosphatase Total Protein Albumin Globulin Albumin/Globulin Ratio Stl C. cayetanensis PCR Stool Rotavirus A PCR Stl Adenov F 40 PCR Stool Astrovirus (PCR) Stool Campylobacter PCR Stl C. diff Tox B Gene Stool Cryptosporidium PCR Stl E.coli Shiga Tox PCR Stl Enterotoxigenic E PCR Stool EPEC (PCR) Stool EAEC (PCR) Stl E. histolytica PCR Stool Giardia Lamblia PCR Stool Salmonella PCR Stool Sapovirus (PCR) Stl P. shigelloides PCR Stl Shigella/EIEC PCR St Y.enterocolitica PCR Stool Vibrio (PCR) Stl Vibrio cholerae PCR Stl Norovirus GI/GII PCR Staphylococcus sp PCR mecA/C-Methicil Resis Gene Staph epidermidis (PCR) Bld Cult ID Panel PCR 07/25/23 Unknown WBC RBC Hgb Hct MCV MCH MCHC RDW Std Deviation RDW Coeff of Leah Plt Count MPV Sodium Potassium Chloride Carbon Dioxide Anion Gap BUN Creatinine Est Cr Clr Drug Dosing Est GFR ( Amer) Est GFR (Non-Af Amer) BUN/Creatinine Ratio Glucose POC Glucose Calcium Magnesium Total Bilirubin AST ALT Alkaline Phosphatase Total Protein Albumin Globulin Albumin/Globulin Ratio Stl C. cayetanensis PCR Not Detected Stool Rotavirus A PCR Not Detected Stl Adenov F PCR Not Detected Stool Astrovirus (PCR) Not Detected Stool Campylobacter PCR Not Detected Stl C. diff Tox B Gene Negative Cdiff Gene Stool Cryptosporidium PCR Not Detected Stl E.coli Shiga Tox PCR Not Detected Stl Enterotoxigenic E PCR Not Detected Stool EPEC (PCR) Not Detected Stool EAEC (PCR) Not Detected Stl E. histolytica PCR Not Detected Stool Giardia Lamblia PCR Not Detected Stool Salmonella PCR Not Detected Stool Sapovirus (PCR) Not Detected Stl P. shigelloides PCR Not Detected Stl Shigella/EIEC PCR Not Detected St Y.enterocolitica PCR Not Detected Stool Vibrio (PCR) Not Detected Stl Vibrio cholerae PCR Not Detected Stl Norovirus GI/GII PCR Not Detected Staphylococcus sp PCR mecA/C-Methicil Resis Gene Staph epidermidis (PCR) Bld Cult ID Panel PCR PG Care Time/CCT Total # of Minutes Spent Total Time Spent with Patient: Total time spent is greater than 50% in coordination of care (as documented) at patient's floor/unit and/or counseling patient: Coding Level of Care Code 80194 SUB INP/OBS CARE 3/50MIN Diagnoses Hepatic encephalopathy K76.82 LLQ abdominal pain R10.32 Slurred speech R47.81 Hypomagnesemia E83.42 Weakness R53.1 Chronic right-sided congestive heart failure I50.812 History of DVT (deep vein thrombosis) Z86.718 Presence of IVC filter Z95.828 Hypothyroidism E03.9 Stage 3b chronic kidney disease N18.32 Morbid obesity E66.01 PAF (paroxysmal atrial fibrillation) I48.0 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 to alcohol K74.60 Infective endocarditis I33.0 ROSALES (obstructive sleep apnea) G47.33 Inflammatory arthritis M19.90 Positive blood culture R78.81
[2023-07-25] MEDS: POLYETHYLENE (MIRALAX) 17 GM PACK PO SCH (15:18)
--- NOTE | 2023-07-25 15:52 | XRay Report ---
LEFT FOOT 2 VIEWS CLINICAL HISTORY: Midfoot pain. FINDINGS: AP and lateral views of the left foot are obtained. No prior studies are available for nile boss at the time of dictation. The skeletal structures are heterogeneously osteopenic. There is no radiographic evidence of acute fracture on this two-view examination. Mild osteoarthritic change is s een throughout the foot, greatest at the first metatarsophalangeal joint. There are dorsal and planta r heel spurs. Mild degenerative spurring is seen along the dorsal aspect of the tarsal bones. The ove rlying soft tissues are within normal limits. There is atherosclerotic calcification is observed in t he regional arteries. Linear calcifications are seen along the course of the plantar fascia. IMPRESSION: 1. No acute bony abnormality is identified. 2. Osteopenia with mild degenerative change and heel spurs as above. Electronically signed by: Kenny Jung M.D. 07/25/2023 3:50 PM
--- NOTE | 2023-07-25 16:42 | CT Scan Report ---
CT OF THE ABDOMEN AND PELVIS WITHOUT CONTRAST CLINICAL HISTORY: LLQ abd pain; diverticulitis? COMPARISON STUDY: CT of the abdomen and pelvis April 06, 2023. Right upper quadrant ultrasound N ovember 2022. TECHNIQUE: Axial images of the abdomen and pelvis were obtained without IV contrast. Images were revi ewed in the axial, sagittal, and coronal planes. Automated exposure control was utilized for the kyle dy. A dose lowering technique was utilized adhering to the principles of ALARA. FINDINGS: No renal, ureteral or bladder calculi are present. There is no hydronephrosis or hydrourete r. Bladder is moderately distended. Evaluation of the remainder of the abdomen and pelvis is suboptim al on this unenhanced exam. The liver is cirrhotic. Sensitivity for detection of hepatic lesions is d iminished on this unenhanced exam but none are identified. There is no significant biliary ductal dil atation status post cholecystectomy. Upper abdominal collaterals are again noted. Spleen, adrenal gla nds and pancreas are unremarkable. The appendix is normal. Moderate amount of stool within the colon and rectum is present. There is sigmoid diverticulosis without evidence for acute diverticulitis. No lymphadenopathy is present. IVC filter is in place. Postoperative findings within the spine are prese nt. There are no acute fractures within the visualized skeletal structures. Disc space narrowing with endplate irregularity centered at the T8-T9 level with paravertebral stranding is similar to prior C T. This is likely degenerative. IMPRESSION: 1. Sigmoid diverticulosis. No evidence for acute diverticulitis. No bowel obstruction. 2. Moderate amount of stool within the colon and rectum. 3. No urinary calculi or hydronephrosis. Moderately distended bladder. ACT 112: Negative or not required by law. Electronically signed by: Eris Friedman M.D. 07/25/2023 4:41 PM
--- NOTE | 2023-07-25 16:46 | XRay Report ---
XR foot RT 2V CLINICAL HISTORY: right 2nd toe pain/inflammation; CPPD? fx? COMPARISON: Right ankle CT June 19, 2023. FINDINGS: Alignment of the right foot is anatomic. Tarsometatarsal joints are intact. No acute fract ure within the right foot is noted. There is severe joint space narrowing with osteophytosis within m ultiple interphalangeal joints, most pronounced within the right second PIP joint. No foci of bony de struction are present. There is moderate vascular calcification. IMPRESSION: 1. No acute fractures within the right foot. 2. 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 Moderate osteoarthritis wi thin several additional distal interphalangeal joints. ACT 112: Negative or not required by law. Electronically signed by: Eris Friedman M.D. 07/25/2023 4:44 PM
[2023-07-25] MEDS ORDERED: predniSONE 10 MG TABLET PO STA (17:19)
[2023-07-25] MEDS ORDERED: LACTULOSE 200GM/700ML WTR ENEMA PR ONE (17:20)
[2023-07-25] MEDS ORDERED: LACTATED RINGER'S 1,000 ML IV SCH (17:30)
[2023-07-25 20:21] LABS: Adenovirus F 40/41 PCR Not Detected (NotDetected); Astrovirus PCR Not Detected (NotDetected); Campylobacter PCR Not Detected (NotDetected); Cryptosporidium PCR Not Detected (NotDetected); Cyclospora cayetanensis PCR Not Detected (NotDetected); Entamoeba histolytica PCR Not Detected (NotDetected); Enteroaggregative E.coli(EAEC) Not Detected (NotDetected); Enteropathogenic E.coli (EPEC) Not Detected (NotDetected); Enterotoxigenic E.coli (ETEC) Not Detected (NotDetected); Giardia lamblia PCR Not Detected (NotDetected); Norovirus GI/GII PCR Not Detected (NotDetected); Plesiomonas shigelloides PCR Not Detected (NotDetected); Rotavirus A PCR Not Detected (NotDetected); Salmonella PCR Not Detected (NotDetected); Sapovirus PCR Not Detected (NotDetected); Shiga-like Toxin E.coli (STEC) Not Detected (NotDetected); Shigella/Enteroinvasive E.coli Not Detected (NotDetected); Vibrio cholerae PCR Not Detected (NotDetected); Vibrio species PCR Not Detected (NotDetected); Yersinia enterocolitica PCR Not Detected (NotDetected)
[2023-07-25] MEDS: ATORVASTATIN 10 MG TAB PO SCH (20:37)
[2023-07-26] MEDS: LEVOTHYROXINE SODIUM 75 MCG TABLET PO SCH (05:14)
[2023-07-26 07:50] LABS: Hematocrit (blood only) 32.8 % (37.0-47.0); Hemoglobin 10.8 g/dl (12.0-16.0); Mean Corpuscular Hemoglobin 31.3 pg (25.0-34.0); Mean Corpuscular Hgb Conc 32.9 g/dL (32.0-36.0); Mean Corpuscular Volume 95.1 fL (80.0-100.0); Mean Platelet Volume 11.4 fL (9.4-12.4); Platelet Count 66 K/uL (130-400); RDW Coefficient of Variation 13.4 % (11.5-14.5); RDW Standard Deviation 46.9 fL (36.4-46.3); Red Blood Count 3.45 M/uL (4.20-5.40); White Blood Count 4.18 K/ul (4.8-10.8)
[2023-07-26 08:13] LABS: Albumin Globulin Ratio 0.7 (0.9-2); Albumin Level 2.4 gm/dl (3.4-5.0); BUN Creatinine Ratio 28.8 (10-20); Bilirubin,Total 0.7 mg/dl (0.2-1.0); Calcium 8.2 mg/dl (8.6-10.3); Creatinine Clr Calc Pharmacy 30.9 ml/min; Est GFR (African American) 35.2 ml/min; Est GFR (Non-African American) 30.3 ml/min; Globulin 3.6 gm/dl (2.5-4.0); Magnesium 1.6 mg/dl (1.7-2.4); Potassium 4.1 mmol/L (3.5-5.1)
[2023-07-26] MEDS: INSULIN ASPART PER UNIT CHARGE SC SCH ×4 (09:30→22:22)
[2023-07-26] MEDS: MAGNESIUM SULFATE / D5W 1 GM/100 ML BAG IV SCH ×2 (09:31→11:47)
[2023-07-26] MEDS: FUROSEMIDE 20 MG TAB PO SCH (09:31)
[2023-07-26] MEDS: PANTOprazole 40 MG TAB PO SCH (09:31)
[2023-07-26] MEDS: APIXABAN 2.5 MG TAB PO SCH ×2 (09:31→22:10)
[2023-07-26] MEDS: rifAXIMin 550 MG TABLET PO SCH ×2 (09:31→22:08)
[2023-07-26] MEDS: POLYETHYLENE (MIRALAX) 17 GM PACK PO SCH (09:32)
[2023-07-26] MEDS: PROPRANOLOL HCL 10 MG TAB PO SCH ×3 (09:32→22:09)
[2023-07-26] MEDS: MAGNESIUM CHLORIDE W/CALCIUM 64MG DELAYED REL TAB PO SCH ×3 (09:32→22:09)
[2023-07-26] MEDS: SPIRONOLACTONE 25 MG TAB PO SCH (09:32)
[2023-07-26] MEDS: LACTULOSE SYRUP 30 GM/45 ML UDP PO SCH ×3 (09:33→22:08)
[2023-07-26] MEDS: DAPTOmycin 500 MG in SYRINGE 0 ML IV SCH (11:47)
[2023-07-26] MEDS ORDERED: predniSONE 5 MG TAB PO ONE (14:51)
[2023-07-26] MEDS ORDERED: bisacodyL 10 MG SUPP PR STA (14:52)
--- NOTE | 2023-07-26 14:53 | Hospitalist Progress Note ---
Date of Service July 26, 2023 Assessment & Plan (1) Neck pain: Plan: obtained CT neck - no fractures considerable DJD particularly C4-C7 voltaren gel qid k-pad heat tylenol prn (2) Hepatic encephalopathy: Plan: improving cont lactulose TID give dulcolax suppos today - oddly she has had only 1 BM since admission cont miralax may need lactulose enema(s) if BMs remain stubborn cont rifaximin BID of note - CT abd/pelvis with moderate constipation noted despite her TID lactulose at home (3) LLQ abdominal pain: Plan: 2nd constipation no other pathology seen on CT abd/pelvis (4) Slurred speech: Plan: likely 2nd to #[address] head 07/24/23 - no acute findings; no change in meningioma (5) Hypomagnesemia: Plan: replace again with IV mag repeat level am 2nd to chronic lasix use cont mag chloride 128mg TID (home dosing) (6) Weakness: Plan: 2nd to #1, low mag, etc PT, OT evals requested and appreciated (7) Chronic right-sided congestive heart failure: Plan: follows with [facility] looked volume contracted yesterday; gave 1 liter of isotonic fluids hold am lasix today then resume such tomorrow (8) History of DVT (deep vein thrombosis): Plan: noted with IVC filter in place she takes Eliquis 2.5mg BID chronically (9) Presence of IVC filter: (10) Hypothyroidism: Plan: TSH 2.1 cont synthroid (11) Stage 3b chronic kidney disease: Plan: Cr baseline 1.5 to 1.7 BMP today stable (12) Morbid obesity: Plan: BMI 44 (13) PAF (paroxysmal atrial fibrillation): Plan: in sinus rhythm at this time cont Eliquis (14) 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 to alcohol: Plan: GREGORY cirrhosis does not appear decompensated from volume standpoint but now with acute HE as in #1 above cont lactulose cont rifaximin (15) Infective endocarditis: Plan: 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 s/p prolonged course of abx at that time November 2022 - echo showed valves w/o vegetations (16) ROSALES (obstructive sleep apnea): (17) Inflammatory arthritis: Plan: uric acid level in 04/2023 was 8.7 R 2nd toe and L mid-foot could be acute gouty arthritis her pain came on suddenly yestserday obtain x-rays both feet - NO fracture, NO CPPD changes prednisone 10mg po x 1 yesterday with improvement in exam findings will give 5mg today and continue such a few more days re-eval tomorrow (18) Positive blood culture: Plan: 2 out of 4 admission blood cx's + for GPC clusters ultimately identified as [employer] repeat blood cx's remain negative started on daptomycin empirically yesterday if all other culture vials remain negative this is likely contamination re-eval tomorrow Plan PT, OT updated pt's son by phone this evening Admission and Anticipated Discharge Date Admission Date: July 24, 2023 Subjective patient states that when she tried to work with physical therapy today she had b/l foot pain (mid-foot) hard to weight bear she also c/o posterior neck pain at the base of the neck - thinks she "slept wrong" on it denies any weakness in her arms denies numbness/paresthesias in her arms denies a fall with trauma to the head/neck prior to admission confusion/slurry speech improved did have large BM last pm but none since passing "lots of gas" eating well tele overnight wnl Review of Systems Review of Systems: gen - no fevers cv - no orthopnea, no chest pain pulm - no dyspnea or cough GI - no nausea or vomiting Physical Exam Physical Exam: gen - morbidly obese, NAD, confusion resolved mouth - MMM today neck - no JVD; posterior neck - tender base of neck at expected location of C5- C7; no paraspinal muscle pain to palpation heart - RRR, s1 s2, 2/6 systolic murmur RUSB lungs - CTA b/l abd - mildly distended (gassy, tympanic to percussion); BS+; nontender today; no HSM ext - no edema, pulses 2+ b/l skin - stasis changes b/l shins musculo - right mid-foot without tenderness to palpation; R 2nd toe with synovi tis but IMPROVED today (less warm, less redness); left mid-foot - less tenderness to palpation today; b/l ankles without synovitis neuro - asterixis resolved ; strength b/l arms 5/5 psych - a/o x 3 Results & Data Results & Data Vital Signs (Past 12 Hours) Vital Signs Temp Pulse Pulse Resp BP Pulse Ox O2 Del Method 07/26/23 11:34 36.3 C L 62 16 112/64 99 Room Air 07/26/23 08:00 36.4 C L 77 16 126/73 97 Room Air 07/26/23 07:42 62 07/26/23 07:42 Room Air Laboratory Results Laboratory Results - last 48 hr 07/25/23 07/25/23 07/25/23 09:53 12:07 17:03 WBC 4.08 L RBC 3.95 L Hgb 12.2 Hct 38.4 MCV 97.2 MCH 30.9 MCHC 31.8 L RDW Std Deviation 49.8 H RDW Coeff of Leah 13.8 Plt Count 97 L MPV 11.1 Sodium 137 Potassium 3.6 Chloride 106 Carbon Dioxide 22 Anion Gap 9 BUN 48 H Creatinine 1.72 H Est Cr Clr Drug Dosing 28.6 Est GFR ( Amer) 32.2 Est GFR (Non-Af Amer) 27.8 BUN/Creatinine Ratio 27.9 H Glucose 216 H POC Glucose 253 H 139 H Calcium 8.8 Magnesium 1.9 Total Bilirubin 0.8 AST 33 ALT 18 Alkaline Phosphatase 92 Total Creatine Kinase Total Protein 7.0 Albumin 2.8 L Globulin 4.2 H Albumin/Globulin Ratio 0.7 L Stl C. cayetanensis PCR Stool Rotavirus A PCR Stl Adenov F 40/41 PCR Stool Astrovirus (PCR) Stool Campylobacter PCR Stl C. diff Tox B Gene Stool Cryptosporidium PCR Stl E.coli Shiga Tox PCR Stl Enterotoxigenic E PCR Stool EPEC (PCR) Stool EAEC (PCR) Stl E. histolytica PCR Stool Giardia Lamblia PCR Stool Salmonella PCR Stool Sapovirus (PCR) Stl P. shigelloides PCR Stl Shigella/EIEC PCR St Y.enterocolitica PCR Stool Vibrio (PCR) Stl Vibrio cholerae PCR Stl Norovirus GI/GII PCR 07/25/23 07/25/23 07/26/23 20:26 Unknown 07:14 WBC 4.18 L RBC 3.45 L Hgb 10.8 L Hct 32.8 L MCV 95.1 MCH 31.3 MCHC 32.9 RDW Std Deviation 46.9 H RDW Coeff of Leah 13.4 Plt Count 66 L MPV 11.4 Sodium 136 Potassium 4.1 Chloride 106 Carbon Dioxide 24 Anion Gap 6 BUN 46 H Creatinine 1.60 H Est Cr Clr Drug Dosing 30.9 Est GFR ( Amer) 35.2 Est GFR (Non-Af Amer) 30.3 BUN/Creatinine Ratio 28.8 H Glucose 137 H POC Glucose 190 H Calcium 8.2 L Magnesium 1.6 L Total Bilirubin 0.7 AST 26 ALT 15 Alkaline Phosphatase 75 Total Creatine Kinase 27 Total Protein 6.0 Albumin 2.4 L Globulin 3.6 Albumin/Globulin Ratio 0.7 L Stl C. cayetanensis PCR Not Detected Stool Rotavirus A PCR Not Detected Stl Adenov F 40/41 PCR Not Detected Stool Astrovirus (PCR) Not Detected Stool Campylobacter PCR Not Detected Stl C. diff Tox B Gene Negative Cdiff Gene Stool Cryptosporidium PCR Not Detected Stl E.coli Shiga Tox PCR Not Detected Stl Enterotoxigenic E PCR Not Detected Stool EPEC (PCR) Not Detected Stool EAEC (PCR) Not Detected Stl E. histolytica PCR Not Detected Stool Giardia Lamblia PCR Not Detected Stool Salmonella PCR Not Detected Stool Sapovirus (PCR) Not Detected Stl P. shigelloides PCR Not Detected Stl Shigella/EIEC PCR Not Detected St Y.enterocolitica PCR Not Detected Stool Vibrio (PCR) Not Detected Stl Vibrio cholerae PCR Not Detected Stl Norovirus GI/GII PCR Not Detected 07/26/23 07/26/23 07/26/23 08:12 11:53 11:54 WBC RBC Hgb Hct MCV MCH MCHC RDW Std Deviation RDW Coeff of Leah Plt Count MPV Sodium Potassium Chloride Carbon Dioxide Anion Gap BUN Creatinine Est Cr Clr Drug Dosing Est GFR ( Amer) Est GFR (Non-Af Amer) BUN/Creatinine Ratio Glucose POC Glucose 142 H 345 H* 318 H* Calcium Magnesium Total Bilirubin AST ALT Alkaline Phosphatase Total Creatine Kinase Total Protein Albumin Globulin Albumin/Globulin Ratio Stl C. cayetanensis PCR Stool Rotavirus A PCR Stl Adenov F 40/41 PCR Stool Astrovirus (PCR) Stool Campylobacter PCR Stl C. diff Tox B Gene Stool Cryptosporidium PCR Stl E.coli Shiga Tox PCR Stl Enterotoxigenic E PCR Stool EPEC (PCR) Stool EAEC (PCR) Stl E. histolytica PCR Stool Giardia Lamblia PCR Stool Salmonella PCR Stool Sapovirus (PCR) Stl P. shigelloides PCR Stl Shigella/EIEC PCR St Y.enterocolitica PCR Stool Vibrio (PCR) Stl Vibrio cholerae PCR Stl Norovirus GI/GII PCR 07/26/23 17:30 WBC RBC Hgb Hct MCV MCH MCHC RDW Std Deviation RDW Coeff of Leah Plt Count MPV Sodium Potassium Chloride Carbon Dioxide Anion Gap BUN Creatinine Est Cr Clr Drug Dosing Est GFR ( Amer) Est GFR (Non-Af Amer) BUN/Creatinine Ratio Glucose POC Glucose 118 H Calcium Magnesium Total Bilirubin AST ALT Alkaline Phosphatase Total Creatine Kinase Total Protein Albumin Globulin Albumin/Globulin Ratio Stl C. cayetanensis PCR Stool Rotavirus A PCR Stl Adenov F 40/41 PCR Stool Astrovirus (PCR) Stool Campylobacter PCR Stl C. diff Tox B Gene Stool Cryptosporidium PCR Stl E.coli Shiga Tox PCR Stl Enterotoxigenic E PCR Stool EPEC (PCR) Stool EAEC (PCR) Stl E. histolytica PCR Stool Giardia Lamblia PCR Stool Salmonella PCR Stool Sapovirus (PCR) Stl P. shigelloides PCR Stl Shigella/EIEC PCR St Y.enterocolitica PCR Stool Vibrio (PCR) Stl Vibrio cholerae PCR Stl Norovirus GI/GII PCR Diagnostic Findings Cervical Spine CT 07/26/23 14:52 CT SCAN OF THE CERVICAL SPINE CLINICAL HISTORY: Neck pain. Possible fall. COMPARISON STUDY: Cervical spine radiographs dated 01/03/2018. TECHNIQUE: CT scan of the cervical spine is performed from the skull base to the upper thoracic spine. Images are reviewed in the axial, sagittal, and coronal planes. IV contrast was not administered for this examination. A dose lowering technique was utilized adhering to the principles of ALARA. The examination is degraded by suboptimal positioning within the CT gantry. FINDINGS: Skeletal structures: The skeletal structures are osteopenic. There is no evidence of fracture or subluxation involving the cervical spine. Vertebral body height and alignment are maintained. Anterior osteophytes are seen throughout. The odontoid process and lateral masses are intact. The atlantoaxial articulation is preserved noting productive degenerative change. The spinous processes appear intact. There is mild multilevel facet arthropathy. Intervertebral discs: There is moderate disc space narrowing at C5-C6 and C6-C7. Mild narrowing is noted at the remaining cervical levels. Central canal: Posterior disc osteophyte complexes at C4-C5, C5-C6, and C6-C7 likely contribute to multilevel acquired compromise of the central canal. Soft tissues: The prevertebral and paraspinous soft tissues are within normal limits. There is atherosclerotic calcification of the carotid bulbs. Calvarium: The visualized calvarium at the skull base appears intact. Brain parenchyma: Partially visualized brain parenchyma at the skull base is w ithin normal limits. Sinuses and mastoids: The visualized paranasal sinuses are clear. The mastoid air cells are well pneumatized. Lung apices: Clear as visualized. IMPRESSION: 1. There is no evidence of fracture or subluxation involving the cervical spine. 2. Osteopenia and spondylotic change as above. ACT 112: Negative or not required by law. Electronically signed by: Kenny Jung M.D. 07/26/2023 4:44 PM PG Care Time/CCT Total # of Minutes Spent Total Time Spent with Patient: Total time spent is greater than 50% in coordination of care (as documented) at patient's floor/unit and/or counseling patient: Coding Level of Care Code 98614 SUB INP/OBS CARE 3/50MIN Diagnoses Neck pain M54.2 Hepatic encephalopathy K76.82 LLQ abdominal pain R10.32 Slurred speech R47.81 Hypomagnesemia E83.42 Weakness R53.1 Chronic right-sided congestive heart failure I50.812 History of DVT (deep vein thrombosis) Z86.718 Presence of IVC filter Z95.828 Hypothyroidism E03.9 Stage 3b chronic kidney disease N18.32 Morbid obesity E66.01 PAF (paroxysmal atrial fibrillation) I48.0 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 to alcohol K74.60 Infective endocarditis I33.0 ROSALES (obstructive sleep apnea) G47.33 Inflammatory arthritis M19.90 Positive blood culture R78.81
--- NOTE | 2023-07-26 16:46 | CT Scan Report ---
CT SCAN OF THE CERVICAL SPINE CLINICAL HISTORY: Neck pain. Possible fall. COMPARISON STUDY: Cervical spine radiographs dated 01/03/2018. TECHNIQUE: CT scan of the cervical spine is performed from the skull base to the upper thoracic spine . Images are reviewed in the axial, sagittal, and coronal planes. IV contrast was not administered fo r this examination. A dose lowering technique was utilized adhering to the principles of ALARA. The examination is degraded by suboptimal positioning within the CT gantry. FINDINGS: Skeletal structures: The skeletal structures are osteopenic. There is no evidence of fracture or subl uxation involving the cervical spine. Vertebral body height and alignment are maintained. Anterior os teophytes are seen throughout. The odontoid process and lateral masses are intact. The atlantoaxial a rticulation is preserved noting productive degenerative change. The spinous processes appear intact. There is mild multilevel facet arthropathy. Intervertebral discs: There is moderate disc space narrowing at C5-C6 and C6-C7. Mild narrowing is no derek at the remaining cervical levels. Central canal: Posterior disc osteophyte complexes at C4-C5, C5-C6, and C6-C7 likely contribute to mu ltilevel acquired compromise of the central canal. Soft tissues: The prevertebral and paraspinous soft tissues are within normal limits. There is athero sclerotic calcification of the carotid bulbs. Calvarium: The visualized calvarium at the skull base appears intact. Brain parenchyma: Partially visualized brain parenchyma at the skull base is within normal limits. Sinuses and mastoids: The visualized paranasal sinuses are clear. The mastoid air cells are well pneu matized. Lung apices: Clear as visualized. IMPRESSION: 1. There is no evidence of fracture or subluxation involving the cervical spine. 2. Osteopenia and spondylotic change as above. ACT 112: Negative or not required by law. Electronically signed by: Kenny Jung M.D. 07/26/2023 4:44 PM
[2023-07-26] MEDS: DICLOFENAC SOD 1% GEL 100 GM TUBE EXT SCH ×2 (18:06→22:11)
[2023-07-26] MEDS: ATORVASTATIN 10 MG TAB PO SCH (22:10)
[2023-07-27] MEDS: LEVOTHYROXINE SODIUM 75 MCG TABLET PO SCH (06:11)
[2023-07-27 06:58] LABS: Hematocrit (blood only) 32.8 % (37.0-47.0); Hemoglobin 10.8 g/dl (12.0-16.0); Mean Corpuscular Hemoglobin 31.2 pg (25.0-34.0); Mean Corpuscular Hgb Conc 32.9 g/dL (32.0-36.0); Mean Corpuscular Volume 94.8 fL (80.0-100.0); Mean Platelet Volume 10.8 fL (9.4-12.4); Platelet Count 57 K/uL (130-400); RDW Coefficient of Variation 13.3 % (11.5-14.5); RDW Standard Deviation 45.8 fL (36.4-46.3); Red Blood Count 3.46 M/uL (4.20-5.40)
[2023-07-27 07:13] LABS: Albumin Globulin Ratio 0.6 (0.9-2); Albumin Level 2.4 gm/dl (3.4-5.0); BUN Creatinine Ratio 32.1 (10-20); Bilirubin,Total 0.8 mg/dl (0.2-1.0); Calcium 8.3 mg/dl (8.6-10.3); Creatinine Clr Calc Pharmacy 31.5 ml/min; Est GFR (African American) 36.2 ml/min; Est GFR (Non-African American) 31.3 ml/min; Globulin 3.9 gm/dl (2.5-4.0); Magnesium 2.1 mg/dl (1.7-2.4); Potassium 4.3 mmol/L (3.5-5.1); Total Protein 6.3 gm/dl (6.0-8.3)
[2023-07-27] MEDS: APIXABAN 2.5 MG TAB PO SCH ×2 (09:07→21:18)
[2023-07-27] MEDS: PROPRANOLOL HCL 10 MG TAB PO SCH ×3 (09:07→21:17)
[2023-07-27] MEDS: SPIRONOLACTONE 25 MG TAB PO SCH (09:11)
[2023-07-27] MEDS: PANTOprazole 40 MG TAB PO SCH (09:11)
[2023-07-27] MEDS: MAGNESIUM CHLORIDE W/CALCIUM 64MG DELAYED REL TAB PO SCH ×3 (09:12→21:18)
[2023-07-27] MEDS: rifAXIMin 550 MG TABLET PO SCH ×2 (09:12→21:17)
[2023-07-27] MEDS: DICLOFENAC SOD 1% GEL 100 GM TUBE EXT SCH ×4 (09:13→21:19)
[2023-07-27] MEDS: LACTULOSE SYRUP 30 GM/45 ML UDP PO SCH ×3 (09:13→16:53)
[2023-07-27] MEDS: POLYETHYLENE (MIRALAX) 17 GM PACK PO SCH (09:13)
[2023-07-27] MEDS: INSULIN ASPART PER UNIT CHARGE SC SCH ×4 (09:22→22:00)
[2023-07-27] MEDS: predniSONE 5 MG TAB PO SCH (11:12)
[2023-07-27] MEDS: FUROSEMIDE 40 MG TAB PO SCH (11:12)
[2023-07-27] MEDS: FUROSEMIDE 20 MG TAB PO SCH (13:15)
[2023-07-27] MEDS ORDERED: LACTULOSE 200GM/700ML WTR ENEMA PR ONE (16:43)
--- NOTE | 2023-07-27 20:28 | Hospitalist Progress Note ---
Date of Service July 27, 2023 Assessment & Plan (1) Neck pain: Plan: obtained CT neck - no fractures considerable DJD particularly C4-C7 voltaren gel qid has resolved the pain tylenol prn (2) Hepatic encephalopathy: Plan: resolved clinically cont lactulose TID but hold tonight's dose; planning to give lactulose enema in raj of that po dose cont miralax cont rifaximin BID of note - CT abd/pelvis with moderate constipation noted despite her TID lactulose at home noncompliance? just has bad constipation and needs additional agents on top of lactulose? (3) LLQ abdominal pain: Plan: 2nd constipation no other pathology seen on CT abd/pelvis (4) Slurred speech: Plan: likely 2nd to #[address] head 07/24/23 - no acute findings; no change in meningioma (5) Hypomagnesemia: Plan: replaced resolved 2nd to chronic lasix use cont mag chloride 128mg TID (home dosing) (6) Weakness: Plan: 2nd to #1, low mag, etc PT, OT evals requested and appreciated (7) Chronic right-sided congestive heart failure: Plan: [place] [facility] [place] cont lasix BID cont inderal TID cont aldactone (8) History of DVT (deep vein thrombosis): Plan: noted with IVC filter in place she takes Eliquis 2.5mg BID chronically (9) Presence of IVC filter: (10) Hypothyroidism: Plan: TSH 2.1 cont synthroid (11) Stage 3b chronic kidney disease: Plan: Cr baseline 1.5 to 1.7 BMP today stable (12) Morbid obesity: Plan: BMI 43 (13) PAF (paroxysmal atrial fibrillation): Plan: in sinus rhythm at this time cont Eliquis (14) 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 to alcohol: Plan: GREGORY cirrhosis does not appear decompensated from volume standpoint cont lactulose cont rifaximin cont inderal TID cont aldactone (15) Infective endocarditis: Plan: 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 s/p prolonged course of abx at that time November 2022 - echo showed valves w/o vegetations (16) ROSALES (obstructive sleep apnea): (17) Inflammatory arthritis: Plan: uric acid level in 04/2023 was 8.7 R 2nd toe and L mid-foot likely acute gouty arthritis her pain came on suddenly during the stay obtain x-rays both feet - NO fracture, NO CPPD changes improving/resolving with low-dose prednisone cont 5mg daily for another few days R 2nd toe synovitis nearly resolved on exam (18) Positive blood culture: Plan: 2 out of 4 admission blood cx's + for GPC clusters 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 repeat blood cx's have remained negative started on daptomycin empirically but since this is likely contamination will d/c dapto no signs/symptoms of bacteremia Plan PT, OT updated pt's son by phone last evening needs to move bowels 3-4 x's daily and work with PT/OT prior to d/c home Admission and Anticipated Discharge Date Admission Date: July 24, 2023 Subjective tele stable overnight neck pain resolved w/ zulay has not had a stool since yesterday despite TID lactulose + miralax she is very gassy and bloated and uncomfortable despite such able to eat nearly 100% of meals; no vomiting passing copious flatus foot pain b/l improved Review of Systems Review of Systems: cv - no orthopnea, no PND pulm - no dyspnea GI - no nausea gen - no fevers neuro - no tremors psych - fogginess resolved Physical Exam Physical Exam: gen - morbidly obese, NAD, confusion resolved, a little uncomfortable because of abdominal bloating mouth - MMM today neck - no JVD heart - RRR, s1 s2, 2/6 systolic murmur RUSB lungs - CTA b/l abd - mod - severe distension (gas - tympanic to percussion); BS+; a little tender centrally; no HSM ext - no edema, pulses 2+ b/l skin - stasis changes b/l shins musculo - right mid-foot without tenderness to palpation; R 2nd toe with nearly resolved synovitis; left mid-foot - no tenderness to palpation today; b/l ankles without synovitis neuro - asterixis resolved psych - a/o x 3 Results & Data Results & Data Vital Signs (Past 12 Hours) Vital Signs Temp Pulse Pulse Resp BP BP Pulse Ox 07/27/23 19:00 36.6 C 60 20 146/73 H 96 07/27/23 15:51 36.5 C 57 L 18 109/65 97 07/27/23 15:30 58 L 07/27/23 13:00 07/27/23 11:07 36.5 C 62 18 105/51 L 98 07/27/23 10:53 07/27/23 09:00 62 Pulse Ox O2 Del Method O2 Del Method 07/27/23 19:00 Room Air 07/27/23 15:51 Room Air 07/27/23 15:30 07/27/23 13:00 98 Room Air 07/27/23 11:07 Room Air 07/27/23 10:53 Room Air 07/27/23 09:00 Laboratory Results Laboratory Results - last 24 hr 07/26/23 07/27/23 07/27/23 20:39 06:06 08:25 WBC 5.60 RBC 3.46 L Hgb 10.8 L Hct 32.8 L MCV 94.8 MCH 31.2 MCHC 32.9 RDW Std Deviation 45.8 RDW Coeff of Leah 13.3 Plt Count 57 L MPV 10.8 Sodium 133 L Potassium 4.3 Chloride 105 Carbon Dioxide 22 Anion Gap 6 BUN 50 H Creatinine 1.56 H Est Cr Clr Drug Dosing 31.5 Est GFR ( Amer) 36.2 Est GFR (Non-Af Amer) 31.3 BUN/Creatinine Ratio 32.1 H Glucose 125 H POC Glucose 160 H 116 H Calcium 8.3 L Magnesium 2.1 Total Bilirubin 0.8 AST 26 ALT 16 Alkaline Phosphatase 80 Total Protein 6.3 Albumin 2.4 L Globulin 3.9 Albumin/Globulin Ratio 0.6 L 07/27/23 07/27/23 07/27/23 12:33 17:28 20:18 WBC RBC Hgb Hct MCV MCH MCHC RDW Std Deviation RDW Coeff of Leah Plt Count MPV Sodium Potassium Chloride Carbon Dioxide Anion Gap BUN Creatinine Est Cr Clr Drug Dosing Est GFR ( Amer) Est GFR (Non-Af Amer) BUN/Creatinine Ratio Glucose POC Glucose 184 H 134 H 209 H Calcium Magnesium Total Bilirubin AST ALT Alkaline Phosphatase Total Protein Albumin Globulin Albumin/Globulin Ratio PG Care Time/CCT Total # of Minutes Spent Total Time Spent with Patient: Total time spent is greater than 50% in coordination of care (as documented) at patient's floor/unit and/or counseling patient: Coding Level of Care Code 92502 SUB INP/OBS CARE 2/35MIN Diagnoses Neck pain M54.2 Hepatic encephalopathy K76.82 LLQ abdominal pain R10.32 Slurred speech R47.81 Hypomagnesemia E83.42 Weakness R53.1 Chronic right-sided congestive heart failure I50.812 History of DVT (deep vein thrombosis) Z86.718 Presence of IVC filter Z95.828 Hypothyroidism E03.9 Stage 3b chronic kidney disease N18.32 Morbid obesity E66.01 PAF (paroxysmal atrial fibrillation) I48.0 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 to alcohol K74.60 Infective endocarditis I33.0 ROSALES (obstructive sleep apnea) G47.33 Inflammatory arthritis M19.90 Positive blood culture R78.81
[2023-07-27] MEDS: ATORVASTATIN 10 MG TAB PO SCH (21:17)
[2023-07-28] MEDS: LEVOTHYROXINE SODIUM 75 MCG TABLET PO SCH (05:53)
[2023-07-28] MEDS: LACTULOSE SYRUP 30 GM/45 ML UDP PO SCH ×2 (08:40→13:01)
[2023-07-28] MEDS: POLYETHYLENE (MIRALAX) 17 GM PACK PO SCH (08:40)
[2023-07-28] MEDS: INSULIN ASPART PER UNIT CHARGE SC SCH ×4 (08:43→21:13)
[2023-07-28] MEDS: DICLOFENAC SOD 1% GEL 100 GM TUBE EXT SCH ×4 (08:44→21:08)
[2023-07-28] MEDS: MAGNESIUM CHLORIDE W/CALCIUM 64MG DELAYED REL TAB PO SCH ×3 (08:44→21:08)
[2023-07-28] MEDS: SPIRONOLACTONE 25 MG TAB PO SCH (08:45)
[2023-07-28] MEDS: rifAXIMin 550 MG TABLET PO SCH ×2 (08:45→21:08)
[2023-07-28] MEDS: APIXABAN 2.5 MG TAB PO SCH ×2 (08:45→21:08)
[2023-07-28] MEDS: PANTOprazole 40 MG TAB PO SCH (08:45)
[2023-07-28] MEDS: PROPRANOLOL HCL 10 MG TAB PO SCH ×3 (08:45→21:08)
[2023-07-28] MEDS: predniSONE 5 MG TAB PO SCH (08:45)
[2023-07-28] MEDS: FUROSEMIDE 40 MG TAB PO SCH (08:46)
[2023-07-28 10:31] LABS: Hematocrit (blood only) 32.9 % (37.0-47.0); Hemoglobin 11.1 g/dl (12.0-16.0); Mean Corpuscular Hgb Conc 33.7 g/dL (32.0-36.0); Mean Corpuscular Volume 94.8 fL (80.0-100.0); Mean Platelet Volume 11.3 fL (9.4-12.4); Platelet Count 80 K/uL (130-400); RDW Coefficient of Variation 13.4 % (11.5-14.5); RDW Standard Deviation 46.2 fL (36.4-46.3); Red Blood Count 3.47 M/uL (4.20-5.40); White Blood Count 4.54 K/ul (4.8-10.8)
[2023-07-28 10:39] LABS: BUN Creatinine Ratio 29.9 (10-20); Calcium 8.3 mg/dl (8.6-10.3); Est GFR (African American) 31.8 ml/min; Est GFR (Non-African American) 27.4 ml/min; Magnesium 1.8 mg/dl (1.7-2.4); Potassium 4.2 mmol/L (3.5-5.1)
[2023-07-28] MEDS: FUROSEMIDE 20 MG TAB PO SCH (12:01)
--- NOTE | 2023-07-28 14:07 | Hospitalist Progress Note ---
Date of Service July 28, 2023 Assessment & Plan (1) Hepatic encephalopathy: Plan: resolved clinically cont lactulose TID but increase to 45gm TID as she is not having 3+ BMs/day with use of such fortunately she had EXCELLENT results to the lactulose enema yesterday cont miralax cont rifaximin BID of note - CT abd/pelvis with moderate constipation noted despite her TID lactulose at home noncompliance? or just has bad constipation and needs additional agents on top of lactulose? (2) Inflammatory arthritis: Plan: uric acid level in 04/2023 was 8.7 R 2nd toe and L mid-foot likely acute gouty arthritis her pain came on suddenly during the stay obtain x-rays both feet - NO fracture, NO CPPD changes 2nd toe with erosive changes which would support dx of gout resolving with low-dose prednisone cont 5mg daily for another few days R 2nd toe synovitis nearly resolved on exam (3) Constipation: Plan: clinically & radiographically increase lactulose to 45gm TID cont miralax 3+ BMs needed each day for prevention of HE (4) Positive blood culture: Plan: 2 out of 4 admission blood cx's + for GPC clusters 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 repeat blood cx's have remained negative started on daptomycin empirically but since this is likely contamination the dapto was stopped no signs/symptoms of bacteremia (5) Neck pain: Plan: obtained CT neck - no fractures considerable DJD particularly C4-C7 voltaren gel qid has resolved the pain tylenol prn (6) LLQ abdominal pain: Plan: 2nd constipation no other pathology seen on CT abd/pelvis pain resolved (7) Slurred speech: Plan: likely 2nd to #[address] head 07/24/23 - no acute findings; no change in meningioma (8) Hypomagnesemia: Plan: replaced resolved 2nd to chronic lasix use cont mag chloride 128mg TID (home dosing) mag level today normal at 1.8 (9) Weakness: Plan: 2nd to #1, low mag, etc PT, OT evals requested and appreciated rehab advised post-d/c, but patient adamantly refusing such wants home PT/OT (10) Chronic right-sided congestive heart failure: Plan: [place] [facility] [place] cont lasix BID cont inderal TID cont aldactone (11) History of DVT (deep vein thrombosis): Plan: noted with IVC filter in place she takes Eliquis 2.5mg BID chronically (12) Presence of IVC filter: (13) Hypothyroidism: Plan: TSH 2.1 cont synthroid (14) Stage 3b chronic kidney disease: Plan: Cr baseline 1.5 to 1.7 BMP again stable (15) Morbid obesity: Plan: BMI 43 (16) PAF (paroxysmal atrial fibrillation): Plan: in sinus rhythm at this time cont Eliquis (17) 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 to alcohol: Plan: GREGORY cirrhosis does not appear decompensated from volume standpoint cont lactulose cont rifaximin cont inderal TID cont aldactone (18) Infective endocarditis: Plan: 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 s/p prolonged course of abx at that time November 2022 - echo showed valves w/o vegetations (19) ROSALES (obstructive sleep apnea): Plan cont PT, OT updated pt's son by phone 2 days ago updated pt's niece with whom she lives (Rosalind) pt can likely d/c home in am if labs stable, moving bowels, etc Admission and Anticipated Discharge Date Admission Date: July 24, 2023 Subjective tele stable overnight no new issues MULTIPLE BMs yesterday s/p lactulose enema "I feel so much better" [with respect to constipation and abdominal bloating] denies abd pain, nausea, emesis eating 100% of meals able to transfer to chair today we discussed the possibility of rehab and she immediately stated she would not go thinks rehab is not worth the time wants home with PT/OT Review of Systems Review of Systems: gen - no fevers or chills cv - no chest pain, no orthopnea, no edema musculo - right 2nd toe pain much improved; left foot pain resolved pulm - no dyspnea Physical Exam Physical Exam: gen - morbidly obese, NAD, sitting in chair - looks well mouth - MMM neck - no JVD heart - RRR, s1 s2, 2/6 systolic murmur RUSB lungs - CTA b/l abd - distension resolved; BS+; nontender; no HSM ext - no edema, pulses 2+ b/l skin - stasis changes b/l shins musculo - right mid-foot without tenderness to palpation; R 2nd toe with nearly resolved synovitis; left mid-foot - no tenderness to palpation; b/l ankles without synovitis neuro - NO asterixis; speech clear; no dysarthria or slurred speech psych - a/o x 3 Results & Data Results & Data Vital Signs (Past 12 Hours) Vital Signs Temp Pulse Pulse Resp BP BP Pulse Ox 07/28/23 11:18 36.4 C L 50 L 12 108/63 97 07/28/23 08:01 36.6 C 63 16 139/72 97 07/28/23 07:40 07/28/23 05:58 58 L 07/28/23 03:31 36.5 C 60 20 145/76 H 97 O2 Del Method 07/28/23 11:18 Room Air 07/28/23 08:01 Room Air 07/28/23 07:40 Room Air 07/28/23 05:58 07/28/23 03:31 Room Air Laboratory Results Laboratory Results - last 24 hr 07/28/23 07/28/23 07/28/23 08:17 09:45 11:57 WBC 4.54 L RBC 3.47 L Hgb 11.1 L Hct 32.9 L MCV 94.8 MCH 32.0 MCHC 33.7 RDW Std Deviation 46.2 RDW Coeff of Leah 13.4 Plt Count 80 L MPV 11.3 Sodium 135 L Potassium 4.2 Chloride 106 Carbon Dioxide 23 Anion Gap 6 BUN 52 H Creatinine 1.74 H Est Cr Clr Drug Dosing 28.0 Est GFR ( Amer) 31.8 Est GFR (Non-Af Amer) 27.4 BUN/Creatinine Ratio 29.9 H Glucose 206 H POC Glucose 111 H 176 H Calcium 8.3 L Magnesium 1.8 07/28/23 07/28/23 16:54 20:43 WBC RBC Hgb Hct MCV MCH MCHC RDW Std Deviation RDW Coeff of Leah Plt Count MPV Sodium Potassium Chloride Carbon Dioxide Anion Gap BUN Creatinine Est Cr Clr Drug Dosing Est GFR ( Amer) Est GFR (Non-Af Amer) BUN/Creatinine Ratio Glucose POC Glucose 155 H 164 H Calcium Magnesium PG Care Time/CCT Total # of Minutes Spent Total Time Spent with Patient: Total time spent is greater than 50% in coordination of care (as documented) at patient's floor/unit and/or counseling patient: Coding Level of Care Code 69192 SUB INP/OBS CARE 2/35MIN Diagnoses Hepatic encephalopathy K76.82 Inflammatory arthritis M19.90 Constipation K59.00 Positive blood culture R78.81 Neck pain M54.2 LLQ abdominal pain R10.32 Slurred speech R47.81 Hypomagnesemia E83.42 Weakness R53.1 Chronic right-sided congestive heart failure I50.812 History of DVT (deep vein thrombosis) Z86.718 Presence of IVC filter Z95.828 Hypothyroidism E03.9 Stage 3b chronic kidney disease N18.32 Morbid obesity E66.01 PAF (paroxysmal atrial fibrillation) I48.0 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 to alcohol K74.60 Infective endocarditis I33.0 ROSALES (obstructive sleep apnea) G47.33
[2023-07-28] MEDS ORDERED: LACTULOSE SYRUP 30 GM/45 ML UDP PO STA (14:09)
[2023-07-28] MEDS ORDERED: LACTULOSE SYRUP 10 GM/15 ML BTL 960 ML PO ONE (15:00)
[2023-07-28] MEDS: LACTULOSE SYRUP 10 GM/15 ML BTL 960 ML PO SCH (21:08)
[2023-07-28] MEDS: ATORVASTATIN 10 MG TAB PO SCH (21:08)
[2023-07-29] MEDS: LEVOTHYROXINE SODIUM 75 MCG TABLET PO SCH (05:47)
[2023-07-29 07:21] LABS: Hematocrit (blood only) 33.7 % (37.0-47.0); Mean Corpuscular Hemoglobin 31.7 pg (25.0-34.0); Mean Corpuscular Hgb Conc 32.6 g/dL (32.0-36.0); Mean Corpuscular Volume 97.1 fL (80.0-100.0); Mean Platelet Volume 11.4 fL (9.4-12.4); Platelet Count 76 K/uL (130-400); RDW Coefficient of Variation 13.6 % (11.5-14.5); RDW Standard Deviation 48.3 fL (36.4-46.3); Red Blood Count 3.47 M/uL (4.20-5.40); White Blood Count 4.58 K/ul (4.8-10.8)
[2023-07-29 07:33] LABS: BUN Creatinine Ratio 28.4 (10-20); Calcium 8.4 mg/dl (8.6-10.3); Creatinine Clr Calc Pharmacy 25.2 ml/min; Est GFR (African American) 27.8 ml/min; Potassium 4.2 mmol/L (3.5-5.1)
[2023-07-29] MEDS: DICLOFENAC SOD 1% GEL 100 GM TUBE EXT SCH ×4 (08:03→20:52)
[2023-07-29] MEDS: POLYETHYLENE (MIRALAX) 17 GM PACK PO SCH (08:04)
[2023-07-29] MEDS: PROPRANOLOL HCL 10 MG TAB PO SCH ×3 (08:05→20:51)
[2023-07-29] MEDS: MAGNESIUM CHLORIDE W/CALCIUM 64MG DELAYED REL TAB PO SCH ×3 (08:05→20:51)
[2023-07-29] MEDS: rifAXIMin 550 MG TABLET PO SCH ×2 (08:05→20:52)
[2023-07-29] MEDS: LACTULOSE SYRUP 10 GM/15 ML BTL 960 ML PO SCH ×3 (08:05→21:24)
[2023-07-29] MEDS: APIXABAN 2.5 MG TAB PO SCH ×2 (08:05→20:50)
[2023-07-29] MEDS: PANTOprazole 40 MG TAB PO SCH (08:06)
[2023-07-29] MEDS: predniSONE 5 MG TAB PO SCH (08:06)
[2023-07-29] MEDS: INSULIN ASPART PER UNIT CHARGE SC SCH ×4 (09:08→20:51)
[2023-07-29] MEDS: FUROSEMIDE 20 MG TAB PO SCH (11:59)
--- NOTE | 2023-07-29 18:59 | Hospitalist Progress Note ---
Date of Service July 29, 2023 Assessment & Plan (1) Hepatic encephalopathy: Plan: much improved asterixis resolved cont lactulose TID 45gm TID - needs minimum 3 BMs/day cont miralax cont rifaximin BID of note - CT abd/pelvis with moderate constipation noted despite her TID lactulose at home noncompliance? or just has bad constipation and needs additional agents on top of lactulose? 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 repeat blood cx's have remained negative started on daptomycin empirically but since this is likely contamination the dapto was stopped no signs/symptoms of bacteremia (5) Neck pain: Plan: obtained CT neck - no fractures considerable DJD particularly C4-C7 voltaren gel qid has resolved the pain tylenol prn (6) LLQ abdominal pain: Plan: 2nd constipation no other pathology seen on CT abd/pelvis pain resolved (7) Slurred speech: Plan: likely 2nd to #[address] head 07/24/23 - no acute findings; no change in meningioma (8) Hypomagnesemia: Plan: replaced resolved 2nd to chronic lasix use cont mag chloride 128mg TID (home dosing) (9) Weakness: Plan: 2nd to #1, low mag, etc PT, OT evals requested and appreciated rehab advised post-d/c, but patient adamantly refusing such wants home PT/OT (10) Chronic right-sided congestive heart failure: Plan: [place] [facility] [place] creatinine trended up overnight - hold lasix and aldactone cont inderal TID repeat BMP am (11) History of DVT (deep vein thrombosis): Plan: noted with IVC filter in place she takes Eliquis 2.5mg BID chronically (12) Presence of IVC filter: (13) Hypothyroidism: Plan: TSH 2.1 cont synthroid (14) Stage 3b chronic kidney disease: Plan: Cr baseline 1.5 to 1.7 Cr 1.9 today - perhaps mild volume depletion from all the stooling yesterday/overnight hold diuretics today repeat BMP am (15) Morbid obesity: Plan: BMI 43 (16) PAF (paroxysmal atrial fibrillation): Plan: in sinus rhythm at this time cont Eliquis (17) 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 to alcohol: Plan: GREGORY cirrhosis does not appear decompensated from volume standpoint cont lactulose cont rifaximin cont inderal TID holding diuretics for now - see above (18) Infective endocarditis: Plan: 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 s/p prolonged course of abx at that time November 2022 - echo showed valves w/o vegetations (19) ROSALES (obstructive sleep apnea): Plan: dx years ago but not on therapy at home (20) Pancytopenia: Plan: 2nd to cirrhosis stable cell lines Plan cont PT, OT updated pt's son by phone this week left message for pt's niece Rosalind (patient lives with Rosalind) on her [place] this evening pt can likely d/c home in am if labs stable Admission and Anticipated Discharge Date Admission Date: July 24, 2023 Subjective no issues today feels well no neck pain foot pain b/l resolved denies dyspnea sitting in chair a few times daily since starting the 45gm doses of lactulose her stooling has been MUCH better tele overnight wnl - NSR Review of Systems Review of Systems: gen - no fevers or chills cv - no orthopnea or chest pain pulm - no dyspnea or [place] GI - no abd pain; bloating resolved Physical Exam Physical Exam: gen - morbidly obese, NAD mouth - MMM neck - no JVD heart - RRR, s1 s2, 2/6 systolic murmur RUSB lungs - CTA b/l abd - soft, NT, ND, BS+, no HSM ext - no edema, pulses 2+ b/l skin - stasis changes b/l shins musculo - R 2nd toe synovitis nearly resolved; no pain in any location either foot neuro - NO asterixis; speech clear; no dysarthria psych - a/o x 3 Results & Data Results & Data Vital Signs (Past 12 Hours) Vital Signs Temp Pulse Pulse Resp BP Pulse Ox O2 Del Method 07/29/23 15:08 36.3 C L 55 L 18 119/80 97 Room Air 07/29/23 14:06 55 L 07/29/23 13:06 60 07/29/23 11:38 36.3 C L 54 L 18 152/95 H 97 Room Air 07/29/23 07:52 Room Air 07/29/23 07:45 36.5 C 70 18 151/69 H 97 Room Air Laboratory Results Laboratory Results - last 24 hr 07/28/23 07/29/23 07/29/23 20:43 06:13 08:08 WBC 4.58 L RBC 3.47 L Hgb 11.0 L Hct 33.7 L MCV 97.1 MCH 31.7 MCHC 32.6 RDW Std Deviation 48.3 H RDW Coeff of Leah 13.6 Plt Count 76 L MPV 11.4 Sodium 136 Potassium 4.2 Chloride 107 Carbon Dioxide 22 Anion Gap 7 BUN 55 H Creatinine 1.94 H Est Cr Clr Drug Dosing 25.2 Est GFR ( Amer) 27.8 Est GFR (Non-Af Amer) 24.0 BUN/Creatinine Ratio 28.4 H Glucose 115 H POC Glucose 164 H 109 H Calcium 8.4 L 07/29/23 07/29/23 11:55 17:02 WBC RBC Hgb Hct MCV MCH MCHC RDW Std Deviation RDW Coeff of Leah Plt Count MPV Sodium Potassium Chloride Carbon Dioxide Anion Gap BUN Creatinine Est Cr Clr Drug Dosing Est GFR ( Amer) Est GFR (Non-Af Amer) BUN/Creatinine Ratio Glucose POC Glucose 169 H 133 H Calcium PG Care Time/CCT Total # of Minutes Spent Total Time Spent with Patient: Total time spent is greater than 50% in coordination of care (as documented) at patient's floor/unit and/or counseling patient: Coding Level of Care Code 79811 SUB INP/OBS CARE 2/35MIN Diagnoses Hepatic encephalopathy K76.82 Inflammatory arthritis M19.90 Constipation K59.00 Positive blood culture R78.81 Neck pain M54.2 LLQ abdominal pain R10.32 Slurred speech R47.81 Hypomagnesemia E83.42 Weakness R53.1 Chronic right-sided congestive heart failure I50.812 History of DVT (deep vein thrombosis) Z86.718 Presence of IVC filter Z95.828 Hypothyroidism E03.9 Stage 3b chronic kidney disease N18.32 Morbid obesity E66.01 PAF (paroxysmal atrial fibrillation) I48.0 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 to alcohol K74.60 Infective endocarditis I33.0 ROSALES (obstructive sleep apnea) G47.33 Pancytopenia D61.818
[2023-07-29] MEDS: ATORVASTATIN 10 MG TAB PO SCH (20:51)
[2023-07-30] MEDS: LEVOTHYROXINE SODIUM 75 MCG TABLET PO SCH (05:43)
[2023-07-30 06:41] LABS: BUN Creatinine Ratio 36.4 (10-20); Calcium 8.7 mg/dl (8.6-10.3); Creatinine Clr Calc Pharmacy 30.1 ml/min; Est GFR (African American) 34.6 ml/min; Est GFR (Non-African American) 29.9 ml/min; Magnesium 1.7 mg/dl (1.7-2.4); Potassium 4.5 mmol/L (3.5-5.1)
[2023-07-30] MEDS: PANTOprazole 40 MG TAB PO SCH (08:52)
[2023-07-30] MEDS: APIXABAN 2.5 MG TAB PO SCH ×2 (08:53→20:29)
[2023-07-30] MEDS: MAGNESIUM CHLORIDE W/CALCIUM 64MG DELAYED REL TAB PO SCH ×3 (08:53→20:30)
[2023-07-30] MEDS: PROPRANOLOL HCL 10 MG TAB PO SCH ×3 (08:53→20:30)
[2023-07-30] MEDS: rifAXIMin 550 MG TABLET PO SCH ×2 (08:54→20:30)
[2023-07-30] MEDS: POLYETHYLENE (MIRALAX) 17 GM PACK PO SCH (08:54)
[2023-07-30] MEDS: predniSONE 5 MG TAB PO SCH (08:54)
[2023-07-30] MEDS: LACTULOSE SYRUP 10 GM/15 ML BTL 960 ML PO SCH ×2 (08:55→20:30)
[2023-07-30] MEDS: DICLOFENAC SOD 1% GEL 100 GM TUBE EXT SCH ×4 (08:56→20:29)
[2023-07-30] MEDS: INSULIN ASPART PER UNIT CHARGE SC SCH ×4 (08:59→20:29)
[2023-07-30 12:45] LABS: Base Excess VBG -2.9 mEq/L; HCO3 VBG 24 mmol/L; Oxygen Saturation VBG 60.5 %; PCO2 VBG 47 mmHg (38-50); PO2 VBG 35 mmHg; pH VBG 7.31 (7.36-7.41)
[2023-07-30 16:41] LABS: Appearance Urine Clear (Clear); Bacteria Urine Automated Negative (Negative); Bilirubin Urine Negative (Negative); Blood Urine Negative (Negative); Color Urine Yellow; Epithelial Cell Urine Auto >30 /lpf (0-5); Glucose Urine UA Negative (Negative); Ketones Urine Negative (Negative); Leukocyte Esterase Urine Trace (Negative); Nitrite Urine Negative (Negative); Protein Urine Negative (Negative); RBC Urine Automated 0-4 /hpf (0-4); Specific Gravity Urine 1.019 (1.000-1.030); Urobilinogen Urine Negative (Negative); pH Urine 5.5 (4.5-7.5)
--- NOTE | 2023-07-30 20:08 | Hospitalist Progress Note ---
Date of Service July 30, 2023 Assessment & Plan (1) Fatigue: Plan: remains very tired/fatigued, sleeping much of the day ammonia rechecked and still very high ammonia levels often do not correlate with the severity of hepatic encephalopathy however the level does seem to correspond to her level of alertness today with that said she has no asterixis on exam VBG with mild hypercapnia obtained u/a and urine cx to ensure no UTI TSH 2 B12 933 in 2022 stool biofire negative stool c diff negative did not have COVID or flu testing upon admission - will check such treat hypercapnia (has known ROSALES but does not use CPAP or BIPAP) tonight with BIPAP - can try nasal pillows for comfort recheck ammonia level am (2) Hepatic encephalopathy: Plan: asterixis resolved NUMEROUS BMs last 2-3 days in fact had to cut back due to severe stooling from lactulose TID 45gm to BID dosing cont miralax cont rifaximin BID of note - CT abd/pelvis with moderate constipation noted despite her TID lactulose at home noncompliance? or just has bad constipation and needs additional agents on top of lactulose? (3) Inflammatory arthritis: Plan: uric acid level in 04/2023 was 8.7 R 2nd toe and L mid-foot likely acute gouty arthritis her pain came on suddenly during the stay obtain x-rays both feet - NO fracture, NO CPPD changes 2nd toe with erosive changes which would support dx of gout nearly resolved with low-dose prednisone cont 5mg daily until tomorrow then stop (4) Constipation: Plan: clinically & radiographically cont lactulose 45gm BID cont miralax 3+ BMs needed each day for prevention of HE -- certainly having more than this (5) Positive blood culture: Plan: 2 out of 4 admission blood cx's + for GPC clusters ultimately identified as [employer]ODUCT SUPPORT [employer] repeat blood cx's have remained negative started on daptomycin empirically but since this is likely contamination the dapto was stopped no signs/symptoms of bacteremia (6) Neck pain: Plan: obtained CT neck - no fractures considerable DJD particularly C4-C7 voltaren gel qid has resolved the pain tylenol prn (7) LLQ abdominal pain: Plan: 2nd constipation no other pathology seen on CT abd/pelvis pain resolved with Rx of constipation (8) Slurred speech: Plan: likely 2nd to #[address] head 07/24/23 - no acute findings; no change in meningioma (9) Hypomagnesemia: Plan: replaced resolved 2nd to chronic lasix use cont mag chloride 128mg TID (home dosing) (10) Weakness: Plan: 2nd to #1, low mag, etc PT, OT zachals requested and appreciated rehab advised post-d/c, but patient adamantly refusing such wants home PT/OT (11) Chronic right-sided congestive heart failure: Plan: follows with [facility] Cardiology creatinine trended up when she was having copious stools - holding lasix and aldactone cont inderal TID repeat BMP am (12) History of DVT (deep vein thrombosis): Plan: noted with IVC filter in place she takes Eliquis 2.5mg BID chronically (13) Presence of IVC filter: (14) Hypothyroidism: Plan: TSH 2.1 cont synthroid (15) Stage 3b chronic kidney disease: Plan: Cr baseline 1.5 to 1.7 Cr trended to 1.9 yesterday - perhaps mild volume depletion from all the st ooling Cr improved today but still looks slightly behind on fluids hold diuretics again today repeat BMP am (16) Morbid obesity: Plan: BMI 43 (17) PAF (paroxysmal atrial fibrillation): Plan: in sinus rhythm at this time cont Eliquis (18) 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 to alcohol: Plan: GREGORY cirrhosis does not appear decompensated from volume standpoint cont lactulose cont rifaximin cont inderal TID holding diuretics for now - see above (19) Infective endocarditis: Plan: 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 s/p prolonged course of abx at that time November 2022 - echo showed valves w/o vegetations (20) ROSALES (obstructive sleep apnea): Plan: dx years ago but not on therapy at home (21) Pancytopenia: Plan: 2nd to cirrhosis stable cell lines Plan cont PT, OT updated pt's son by phone this past week spoke with pt's niece Rosalind (patient lives with Rosalind) this evening d/c depends on improvement in fatigue/weakness, labs, etc Admission and Anticipated Discharge Date Admission Date: July 24, 2023 Subjective tele overnight wnl only complaint is that she is tired otherwise eating 100% of meals NUMEROUS stools no abd pain/nausea/emesis Review of Systems Review of Systems: gen - fatigue and tired but eating well; no fevers cv - no chest pain, no orthopnea, no edema musculo - no R or L foot pain pulm - no dyspnea at rest, no dyspnea w/ walking to chair/bathroom Physical Exam Physical Exam: gen - morbidly obese, NAD, sitting in chair, looks tired mouth - MMM neck - no JVD heart - RRR, s1 s2, 2/6 systolic murmur RUSB lungs - CTA b/l abd - soft, NT, ND, BS+, no HSM ext - no edema, pulses 2+ b/l skin - stasis changes b/l shins musculo - R 2nd toe synovitis resolved; no pain in any location either foot neuro - NO asterixis; speech slightly slurred but this seems to be baseline psych - a/o x 3 Results & Data Results & Data Vital Signs (Past 12 Hours) Vital Signs Temp Pulse Pulse Resp BP Pulse Ox O2 Del Method 07/30/23 16:29 51 L 07/30/23 15:39 36.3 C L 54 L 18 136/76 96 Room Air 07/30/23 11:24 36.5 C 57 L 18 152/82 H 98 Room Air 07/30/23 10:01 Room Air Laboratory Results Laboratory Results - last 24 hr 07/29/23 07/30/23 07/30/23 20:11 05:54 08:11 VBG pH VBG pCO2 VBG pO2 VBG HCO3 VBG O2 Saturation VBG Base Excess Sodium 136 Potassium 4.5 Chloride 108 H Carbon Dioxide 22 Anion Gap 6 BUN 59 H Creatinine 1.62 H D Est Cr Clr Drug Dosing 30.1 Est GFR ( Amer) 34.6 Est GFR (Non-Af Amer) 29.9 BUN/Creatinine Ratio 36.4 H Glucose 115 H POC Glucose 140 H 110 H Calcium 8.7 Magnesium 1.7 Ammonia Urine Color Urine Appearance Urine pH Ur Specific [place] Urine Protein Urine Glucose (UA) Urine Ketones Urine Blood Urine Nitrite Urine Bilirubin Urine Urobilinogen Ur Leukocyte Esterase Urine WBC (Auto) Urine RBC (Auto) U Hyaline Cast (Auto) U Epithel Cells (Auto) Urine Bacteria (Auto) 07/30/23 07/30/23 07/30/23 12:11 12:32 16:15 VBG pH 7.31 L VBG pCO2 47 VBG pO2 35 VBG HCO3 24 VBG O2 Saturation 60.5 VBG Base Excess -2.9 Sodium Potassium Chloride Carbon Dioxide Anion Gap BUN Creatinine Est Cr Clr Drug Dosing Est GFR ( Amer) Est GFR (Non-Af Amer) BUN/Creatinine Ratio Glucose POC Glucose 161 H Calcium Magnesium Ammonia 163.0 H Urine Color Yellow Urine Appearance Clear Urine pH 5.5 Ur Specific [place] 1.019 Urine Protein Negative Urine Glucose (UA) Negative Urine Ketones Negative Urine Blood Negative Urine Nitrite Negative Urine Bilirubin Negative Urine Urobilinogen Negative Ur Leukocyte Esterase Trace H Urine WBC (Auto) 1-5 Urine RBC (Auto) 0-4 U Hyaline Cast (Auto) 5-10 H U Epithel Cells (Auto) >30 H Urine Bacteria (Auto) Negative 07/30/23 07/30/23 17:12 19:41 VBG pH VBG pCO2 VBG pO2 VBG HCO3 VBG O2 Saturation VBG Base Excess Sodium Potassium Chloride Carbon Dioxide Anion Gap BUN Creatinine Est Cr Clr Drug Dosing Est GFR ( Amer) Est GFR (Non-Af Amer) BUN/Creatinine Ratio Glucose POC Glucose 116 H 140 H Calcium Magnesium Ammonia Urine Color Urine Appearance Urine pH Ur Specific [place] Urine Protein Urine Glucose (UA) Urine Ketones Urine Blood Urine Nitrite Urine Bilirubin Urine Urobilinogen Ur Leukocyte Esterase Urine WBC (Auto) Urine RBC (Auto) U Hyaline Cast (Auto) U Epithel Cells (Auto) Urine Bacteria (Auto) PG Care Time/CCT Total # of Minutes Spent Total Time Spent with Patient: Total time spent is greater than 50% in coordination of care (as documented) at patient's floor/unit and/or counseling patient: Coding Level of Care Code 62279 SUB INP/OBS CARE 235MIN Diagnoses Fatigue R53.83 Hepatic encephalopathy K76.82 Inflammatory arthritis M19.90 Constipation K59.00 Positive blood culture R78.81 Neck pain M54.2 LLQ abdominal pain R10.32 Slurred speech R47.81 Hypomagnesemia E83.42 Weakness R53.1 Chronic right-sided congestive heart failure I50.812 History of DVT (deep vein thrombosis) Z86.718 Presence of IVC filter Z95.828 Hypothyroidism E03.9 Stage 3b chronic kidney disease N18.32 Morbid obesity E66.01 PAF (paroxysmal atrial fibrillation) I48.0 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 to alcohol K74.60 Infective endocarditis I33.0 ROSALES (obstructive sleep apnea) G47.33 Pancytopenia D61.818
[2023-07-30] MEDS: ATORVASTATIN 10 MG TAB PO SCH (20:29)
[2023-07-30] MEDS ORDERED: LACTULOSE SYRUP 10 GM/15 ML BTL 960 ML PO SCH (21:00)
[2023-07-31] MEDS: LEVOTHYROXINE SODIUM 75 MCG TABLET PO SCH (05:37)
[2023-07-31 07:29] LABS: Calcium 8.5 mg/dl (8.6-10.3); Creatinine Clr Calc Pharmacy 24.3 ml/min; Est GFR (African American) 26.8 ml/min; Est GFR (Non-African American) 23.2 ml/min; Potassium 4.3 mmol/L (3.5-5.1)
[2023-07-31] MEDS ORDERED: LACTATED RINGER'S 1,000 ML IV SCH (08:15)
[2023-07-31] MEDS: DICLOFENAC SOD 1% GEL 100 GM TUBE EXT SCH ×3 (08:16→17:34)
[2023-07-31] MEDS: POLYETHYLENE (MIRALAX) 17 GM PACK PO SCH (08:17)
[2023-07-31] MEDS: LACTULOSE SYRUP 10 GM/15 ML BTL 960 ML PO SCH (08:19)
[2023-07-31] MEDS: rifAXIMin 550 MG TABLET PO SCH (08:19)
[2023-07-31] MEDS: MAGNESIUM CHLORIDE W/CALCIUM 64MG DELAYED REL TAB PO SCH ×2 (08:19→13:15)
[2023-07-31] MEDS: PROPRANOLOL HCL 10 MG TAB PO SCH ×2 (08:19→13:15)
[2023-07-31] MEDS: predniSONE 5 MG TAB PO SCH (08:19)
[2023-07-31] MEDS: APIXABAN 2.5 MG TAB PO SCH (08:20)
[2023-07-31] MEDS: PANTOprazole 40 MG TAB PO SCH (08:20)
[2023-07-31] MEDS: INSULIN ASPART PER UNIT CHARGE SC SCH ×3 (08:57→18:06)
[2023-07-31 09:32] LABS: Influenza A virus by PCR Negative (Neg); Influenza B virus by PCR Negative (Neg); RSV by PCR Negative (Neg); SARS CoV2 RNA(COVID-19) Ceph NEGATIVE (Negative)
[2023-07-31 16:48] LABS: Creatinine Clr Calc Pharmacy 25.3 ml/min; Est GFR (African American) 28.2 ml/min; Est GFR (Non-African American) 24.3 ml/min
--- NOTE | 2023-07-31 18:07 | Discharge Summary ---
Date of Service July 31, 2023 Admission HPI Per Admitting Provider Rosalind is a 77 year old female GREGORY cirrhosis, strep bacteremia and infective endocarditis, afib on Eliquis, HTN, stage 3 CKD, chronic DVT with IVC filter, aortic stenosis, HFpEF, MGUS, DM2, HLD, ROSALES on CPAP, and chronic back who presents to the [facility] ED on 07/[address] [facility] ED via EMS with generalized weakness and slurred speech at approximately 0400 this am. She remained stable in the ED. Labs were significant for an INR of 1.2, mag of 1.6, ammonia of 132, initial high sen trop of 20, UA no indicative of UTI, and Covid 19/Influenza/RSV negative. CT of the head/brain wo con was read as "1. No acute intracranial findings. No change in appearance of the brain. 2. Exam mildly compromised by motion artifact.". Chest xray was read as " Cardiomegaly with pulmonary vascular congestion, similar to prior chest radiograph. ". Prior to admission the patient was given 10 mg IV labetalol, 30 mg PO lactulose, 1gm IV mag sulfate, and 500 mL NSS. At the time of the exam the patient was sitting in bed in no acute distress. She is awake and alert but is mildly fatigued at the time of the exam. She just took a dose of PO lactulose prior to my exam. She states that she currently feels fine and has no complaints. She confirms that she often slurs her words when her ammonia is elevated. Denies an new neurologic symptoms, fever, chills, chest pain, SOB, cough, abd pain, dysuria, hematuria, melena, new LE swelling, and recent trauma. She did have an episode of nausea and vomiting this am prior to EMS arrival. She states that she has been taking her lactulose and rifaximin as prescribed and has been having at least 3 loose BM's daily. She states that she had approximately 8 bowel movements two days ago. I called and spoke to her Niece/primary caregiver, Rosalind Joel, whom the patient also lives with. She confirms that the patient has been taking her medications as prescribed, had increased diarrhea approximately 48 hours, had the nausea and vomiting this am, and started to act more weak and confused yesterday. Her Niece states that they wanted to bring her to the ED yesterday but the patient continued to refuse until around 0700 this am. She confirms that the patient did not have her am medications prior to EMS arrival. She also confirms that the patient slurs her words and is more fatigued when her ammonia is elevated. The patient is a DNR/DNI. Please refer to Dr. Lucero's attestation for any changes to the treatment plan Discharge Exam gen - morbidly obese, NAD, sitting in chair, looks tired mouth - MMM neck - no JVD heart - RRR, s1 s2, 2/6 systolic murmur RUSB lungs - CTA b/l abd - soft, NT, ND, BS+, no HSM ext - no edema, pulses 2+ b/l skin - stasis changes b/l shins musculo - R 2nd toe synovitis resolved; no pain in any location either foot neuro - NO asterixis; speech slightly slurred but this seems to be baseline psych - a/o x 3 Discharge Data Allergies Allergy/AdvReac Type Severity Reaction Status Date / Time No Known Allergies Allergy Verified 07/24/23 10:07 Consultations 07/24/23 09:49 ED Decision to Admit Stat 07/24/23 10:39 ED Decision to Admit Stat Ordered Studies 07/24/23 07:18 CT head/brain wo con Stat 07/25/23 15:08 CT Abd and Pelvis [CT abd pelvis wo con] Urgent 07/26/23 14:52 CT cervical spine wo con Routine Hospital Course (1) Fatigue: remains very tired/fatigued, sleeping much of the day ammonia rechecked and still very high ammonia levels often do not correlate with the severity of hepatic encephalopathy however the level does seem to correspond to her level of alertness today with that said she has no asterixis on exam VBG with mild hypercapnia obtained u/a and urine cx to ensure no UTI TSH 2 B12 933 in 2022 stool biofire negative stool c diff negative did not have COVID or flu testing upon admission - will check such treat hypercapnia (has known ROSALES but does not use CPAP or BIPAP) tonight with BIPAP - can try nasal pillows for comfort recheck ammonia level am (2) Hepatic encephalopathy: asterixis resolved NUMEROUS BMs last 2-3 days in fact had to cut back due to severe stooling from lactulose TID 45gm to BID dosing cont miralax cont rifaximin BID of note - CT abd/pelvis with moderate constipation noted despite her TID lactu lose at home noncompliance? or just has bad constipation and needs additional agents on top of lactulose? (3) Inflammatory arthritis: uric acid level in 04/2023 was 8.7 R 2nd toe and L mid-foot likely acute gouty arthritis her pain came on suddenly during the stay obtain x-rays both feet - NO fracture, NO CPPD changes 2nd toe with erosive changes which would support dx of gout nearly resolved with low-dose prednisone cont 5mg daily until tomorrow then stop (4) Constipation: clinically & radiographically cont lactulose 45gm BID cont miralax 3+ BMs needed each day for prevention of HE -- certainly having more than this (5) Positive blood culture: 2 out of 4 admission blood cx's + for GPC clusters ultimately identified as [employer] repeat blood cx's have remained negative started on daptomycin empirically but since this is likely contamination the dapto was stopped no signs/symptoms of bacteremia (6) Neck pain: obtained CT neck - no fractures considerable DJD particularly C4-C7 voltaren gel qid has resolved the pain tylenol prn (7) LLQ abdominal pain: 2nd constipation no other pathology seen on CT abd/pelvis pain resolved with Rx of constipation (8) Slurred speech: likely 2nd to #[address] head 07/24/23 - no acute findings; no change in meningioma (9) Hypomagnesemia: replaced resolved 2nd to chronic lasix use cont mag chloride 128mg TID (home dosing) (10) Weakness: 2nd to #1, low mag, etc PT, OT evals requested and appreciated rehab advised post-d/c, but patient adamantly refusing such wants home PT/OT (11) Chronic right-sided congestive heart failure: follows with [facility] Cardiology creatinine trended up when she was having copious stools - holding lasix and aldactone cont inderal TID repeat BMP am (12) History of DVT (deep vein thrombosis): noted with IVC filter in place she takes Eliquis 2.5mg BID chronically (13) Presence of IVC filter: (14) Hypothyroidism: TSH 2.1 cont synthroid (15) Stage 3b chronic kidney disease: Cr baseline 1.5 to 1.7 Cr trended to 1.9 yesterday - perhaps mild volume depletion from all the stooling Cr improved today but still looks slightly behind on fluids hold diuretics again today repeat BMP am (16) Morbid obesity: BMI 43 (17) PAF (paroxysmal atrial fibrillation): in sinus rhythm at this time cont Eliquis (18) 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 to alcohol: GREGORY cirrhosis does not appear decompensated from volume standpoint cont lactulose cont rifaximin cont inderal TID holding diuretics for now - see above (19) Infective endocarditis: 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 s/p prolonged course of abx at that time November 2022 - echo showed valves w/o vegetations (20) ROSALES (obstructive sleep apnea): dx years ago but not on therapy at home (21) Pancytopenia: 2nd to cirrhosis stable cell lines Plan cont PT, OT updated pt's son by phone this past week spoke with pt's niece Rosalind (patient lives with Rosalind) this evening d/c depends on improvement in fatigue/weakness, labs, etc Home Health Attestation I certify that this patient is under my care and that I, or a physicians social human services assistants working with me, had a face to-face encounter that meets the home health [id number] encounter requirements with this patient. The encounter with the patient was in whole, or in part, for the following medical condition, which is the primary reason for home health care (list medical condition): I certify that, based on my findings, the following services are medically necessary home health services: My clinical findings support the need for the above services because: OT Assess ADL Status and Restore Function w ADLs PT Gait and Balance Training, Strengthening and Safety Skilled Nsg Assessment Further, I certify that my clinical findings support that this patient is homebound (i.e. absences from home require considerable and taxing effort and are for medical reasons or restoration services or infrequently or of short durat ion when for other reasons) because: Certification for Home Health Services: Based on the above findings, I certify that this patient is confined to the home and needs intermittent longterm care, physical therapy and/or speech therapy or continues to need occupational therapy. The patient is under my care, and I have initiated the establishment of the plan of care. This patient will be followed by a physician who will periodically review the plan of care. Discharge Plan Discharge Items Patient Disposition: Home - Home Health Services Reason For Visit: SLURRED SPEECH,WEAKNESS,HEPATIC ENCEPHALOPATHY Discharge Diagnosis: 1. hepatic encephalopathy (elevated ammonia due to cirrhosis) - improved; slurred speech resolved; weakness resolved 2. severe constipation - resolved 3. gout attack - left ankle/foot and right 2nd toe - resolved 4. cirrhosis 5. chronic congestive heart failure 6. chronic kidney disease 7. past history of blood clots 8. neck pain - due to arthritis Activity: Resume your previous activity Activity Comment: as tolerated Non-emergency contact: Primary Care Provider Call non-emergency contact if: you have any medication questions, your symptoms worsen and you have a fever Follow-up/Referrals: Kate Garcia PA-C [Physician Shipyard Laborer] - (within 1 week) Jian Pierce DO [Primary Care Provider] - (within 1 week) Diet: Carb Consistent or DM2 and Low Sodium (2gm) Addtl Attending Provider Instructions: Mrs Dudley, You were hospitalized due to weakness and slurry speech. This was due to elevated ammonia from your cirrhosis. You complained of abdominal pain & bloating and a CT scan of your abdomen showed significant constipation. Stool studies did NOT show any infection of the stool. You required LARGE amounts of lactulose as well as lactulose enemas to resolve the constipation. You are now having 3-4 bowel movements or more each day with increased lactulose. You worked with PT and OT and made nice progress with your walking and mobility. During the stay you had a gout attack of your right 2nd toe and your left foot/ankle. The attack resolved with prednisone. I suspect that the constipation as well as the stress of the gout attack led to your ammonia levels rising. Of note - a COVID & flu test was negative while here. Recommendations - 1. lactulose - * increase your morning lactulose to 45 grams - start this tomorrow * leave your evening dose of lactulose at 30 grams as previous * if you are not having at least 3 bowel movements each day please increase your evening lactulose to 45 grams 2. stools - if there is just a smear of stool or just very little amounts please do not count that towards your bowel movement count. Be sure the stools are of at least moderate amount/size. 3. please HOLD your spironolactone until you see either Dr Pierce or Ms Garcia 4. resume your usual furosemide (water pill) on 08/01/23 5. please avoid "gouty foods" that cause cause gout attacks (see the handout that I gave you) 6. if you keep getting gout attacks you may need a medicine called "allopurinol" to prevent gout attacks from occurring 7. a urine culture to ensure you don't have a urinary infection is pending; if it grows a bacterium that requires an antibiotic I will call you at your home & let you know 8. continue PT/OT at home; please use a walker at all times Follow-up - see separate section Return to [facility] if - * you have fever over 100 degrees * you have worsening shortness of breath or chest pains * you have severe weakness, fatigue, or feel lethargic * you feel confused * any other concerns It was our pleasure to care for you! Pending Studies at Discharge: Yes (urine culture but thus far negative ) Stand-Alone Forms: My [facility], Smoking Cessation Medications and DC Order Prescriptions: Continued Eliquis 2.5 mg tablet 2.5 mg PO BID Qty: 60 11RF Hold Instructions: Resume on 04/17/23. HOLD until your PCP tells you it is safe to resume. levothyroxine 75 mcg tablet 75 mcg PO DAILY Qty: 90 3RF Xifaxan 550 mg tablet 550 mg PO BID Qty: 60 2RF propranolol 10 mg tablet 10 mg PO TID 90 Days Qty: 270 3RF coenzyme Q10 200 mg capsule 200 mg PO DAILY atorvastatin 10 mg tablet 10 mg PO HS Qty: 90 3RF magnesium chloride 64 mg tablet,delayed release (DR/EC) 128 mg PO TID Qty: 540 3RF cholecalciferol (vitamin D3) [Vitamin D3] 2,000 unit Capsule 2,000 unit PO QAM multivitamin Tablet 1 tab PO QAM vitamin E 400 unit capsule 400 unit PO QAM furosemide 40 mg tablet See Rx Instructions .ROUTE .COMPLEX Rx Instructions: Patient takes 40mg in the morning and 20mg at noon. pantoprazole 40 mg Tablet,Delayed Release (Dr/Ec) 40 mg PO QAM Qty: 0 0RF Changed lactulose 10 gram/15 mL (15 mL) Solution See Rx Instructions .ROUTE .COMPLEX Qty: 1440 0RF Rx Instructions: 45 grams in the morning and 30 grams in the evening; if you are not having at least 3 bowel movements/day please increase your evening dose to 45 grams. Held spironolactone 25 mg tablet 25 mg PO DAILY Qty: 90 3RF Hold Instructions: high K Discharge Orders: Discharge Order (Routine); Ordered 07/31/23 Ordered By: Joni Hermosillo Admission Data Admit Date/Time: 07/24/23 10:29 Attending Provider: Joni Hermosillo Admit Provider: Antwan Lucero Primary Care Provider: Jian Pierce Other Providers: George Camacho; Antwan Lucero; [facility] Coding Diagnoses Fatigue R53.83 Hepatic encephalopathy K76.82 Inflammatory arthritis M19.90 Constipation K59.00 Positive blood culture R78.81 Neck pain M54.2 LLQ abdominal pain R10.32 Slurred speech R47.81 Hypomagnesemia E83.42 Weakness R53.1 Chronic right-sided congestive heart failure I50.812 History of DVT (deep vein thrombosis) Z86.718 Presence of IVC filter Z95.828 Hypothyroidism E03.9 Stage 3b chronic kidney disease N18.32 Morbid obesity E66.01 PAF (paroxysmal atrial fibrillation) I48.0 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 to alcohol K74.60 Infective endocarditis I33.0 ROSALES (obstructive sleep apnea) G47.33 Pancytopenia D61.818
== END 2023-07-31 19:05 | disposition home health service (06) | DRG 441 ==
LOC: ED 07:06 → SUATTDRO 10:29 → EDINP 10:29 → 2N 13:01

== ENCOUNTER 2023-12-06 11:59 | Observation (INO) ==
--- NOTE | 2023-12-06 12:29 | Emergency Department Note ---
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 She threw up once today. She notes she feels very weak and rundown. This feels like her previous bouts when her magnesium is low. She denies any headache or change in vision. No chest pain or shortness of breath. No dysuria urgency or frequency. No other exacerbating or remitting factors. ADDITIONAL HISTORY OBTAINED: Per HPI Chronic Medical/Social Conditions Affecting Care: Per HPI PAST MEDICAL HISTORY:See Below PAST SURGICAL HISTORY:See Below FAMILY HISTORY:See Below SOCIAL HISTORY:See Below HOME MEDICATIONS:See Below ALLERGIES:See Below VITALS:See Below PHYSICAL EXAMINATION: GENERAL: Sitting up in bed, alert, morbidly obese, disheveled EYE EXAM: normal conjunctiva. PERRL and EOM's intact. OROPHARYNX: no exudate, no erythema, lips, buccal mucosa, and tongue normal and mucous membranes are moist NECK: supple, no nuchal rigidity, no adenopathy, non-tender LUNGS: Clear to auscultation. Normal chest wall mechanics HEART: no murmurs, S1 normal and S2 normal ABDOMEN: abdomen soft, non-tender, normo-active bowel sounds, no masses, no rebound or guarding. BACK: Back is symmetrical on inspection and there is no deformity, no midline tenderness, no CVA tenderness. SKIN: no rashes and no bruising UPPER EXTREMITIES: upper extremities are grossly normal. LOWER EXTREMITIES: No pitting edema. NEURO EXAM: Normal sensorium, cranial nerves II-XII intact, normal speech, no weakness of arms, no weakness of legs. No drift. Finger to nose intact. Gross sensation intact. MEDICAL DECISION MAKING: Patient is an 78-year-old female who presents ER for confusion and weakness. IV was established blood work was obtained. Labs show mild leukopenia at 3.1 thousand. Mild anemia 11. Thrombocytopenia 79 likely secondary to cirrhosis. BMP with creatinine 1.5 fairly consistent with previous. Mag low at 1.6. Ammonia significantly elevated at 140. UA was contaminated. Patient was initially hypertensive and given IV hydralazine as well as lactulose and IV fluids. She was updated bedside. CT head was negative and chest x-ray was unremarkable. She was discussed case with the hospitalist admitted for further workup Consults/Care Managements Discussions: Per [facility] Triage Nursing notes reviewed. Limited review of prior medical records performed Vital Signs: reviewed and remarkable for hypertension Differential diagnosis: Differential Diagnosis includes but is not limited to ischemic Stroke, hemorrhagic stroke, bells palsy, mass, neoplasm, migraine headache, seizure, subarachnoid hemorrhage, TIA, and transient global amnesia. ER treatment provided: See below Diagnostics interpreted by me include EKG and cardiac monitoring as listed below: -Cardiac Monitoring: An order was placed for continuous cardiac monitoring. The monitor shows a rate of 70 with sinus rhythm. -ECG: Sinus rhythm rate of 72 Left axis Right bundle branch block QTc 481 -Laboratory studies:Interpreted by me as stated above in MDM and shown below. Imaging studies: Xrays: As interpreted by me: Portable AP upright 1 view the chest shows no focal CTs show: CT of the head was neg Procedures:none Critical Care: None Past Med/Surg History Problem List (Updated 12/06/23 @ 18:17 by Arsh King DO) HTN (hypertension) (Acute) Leukopenia (Acute) Anemia (Acute) Hypomagnesemia (Acute) Acute hepatic encephalopathy (Acute) Hypertensive urgency Fatigue Pancytopenia LLQ abdominal pain Inflammatory arthritis Hypertension (Acute) Slurred speech (Acute) Hyperammonemia (Acute) Altered mental status (Acute) Aortic stenosis Chronic right-sided congestive heart failure History of DVT (deep vein thrombosis) Presence of IVC filter Right leg pain Hepatic encephalopathy Weakness (Acute) Hypomagnesemia (Acute) Anticoagulant long-term use (Acute) Hypothyroidism UTI (urinary tract infection) Chronic diastolic heart failure Stage 3b chronic kidney disease Hyperammonemia Cor pulmonale Chronic kidney disease, stage III (moderate) CHF (congestive heart failure) (Acute) Morbid obesity PAF (paroxysmal atrial fibrillation) 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) Diastolic dysfunction Atrial fibrillation with rapid ventricular response Chronic back pain Anemia (Acute) Rectal bleeding Abnormal mammogram of left breast Left breast lump Hematuria Encounter for examination following treatment at hospital Fall (Acute) Diarrhea Lower leg edema Proteinuria Right knee pain Lumbar stenosis with neurogenic claudication MGUS (monoclonal gammopathy of unknown significance) (Chronic ~02/2015) Meningioma (Acute) Vitamin D deficiency (Acute) Pituitary macroadenoma (Acute) Mitral regurgitation (Acute) Microalbuminuria (Acute) Hypercholesterolemia (Acute) Diabetes mellitus with peripheral vascular disease (Acute) Cervical spondylosis (Acute) Thickened endometrium Obesity, diabetes, and hypertension syndrome Bilateral lower extremity edema (Acute) Age-related physical debility Medical History (Updated 12/06/23 @ 18:17 by Arsh King DO) Infective endocarditis Streptococcal bacteremia ROSALES (obstructive sleep apnea) Rectal bleeding Hypomagnesemia Generalized weakness Nausea vomiting and diarrhea Dizziness Acute hyperkalemia Encephalopathy acute Nausea & vomiting Rhinovirus Acute on chronic diastolic heart failure Volume overload Lactate blood increase Vomiting and diarrhea Wheezing Weakness DVT (deep venous thrombosis) Elevated troponin EMY (acute kidney injury) Thrombocytopenia Chronic deep vein thrombosis (DVT) Fever Pulmonary embolism 2018 > no known cause > Filter to right groin Diverticular hemorrhage resolved GI bleed none at present Esophageal varices determined by endoscopy Monoclonal gammopathy Osteoarthritis GERD (gastroesophageal reflux disease) Migraine Vertigo Surgical History (Updated 12/06/23 @ 16:26 by Joni Hopkins MD) Status post lumbar surgery History of laparoscopic cholecystectomy History of section x3 History of bilateral breast reduction surgery History of dilatation and curettage History of carpal tunnel release of both wrists History of total left knee replacement (TKR) History of total right knee replacement (TKR) History of lumbar spinal fusion hardware in place History of colonoscopy History of esophagogastroduodenoscopy (EGD) History of tooth extraction all teeth History of tonsillectomy History of bilateral cataract extraction Family History Mother Family history of diabetes mellitus Brother Family history of diabetes mellitus 3 brothers Colorectal cancer Myocardial infarction x 2 Father Myocardial infarction Denies family history of Ovarian cancer Prostate cancer Breast cancer Social History Smoking Status: Former smoker Tobacco Type: Cigarettes Age Started Using Tobacco: 15; Age Quit Using Tobacco: 21; Cigarettes Per Day: stopped 55 years ago; Second Hand Exposure: No; Do You Dip or Chew Tobacco: No; Hx Alcohol Use: No Hx Substance Use: No Preferred Language: Citizen Of [place] Communication Ability: Effective Visual Impairment: Limited Hearing Ability: Normal Lab Analyst Required: No Beliefs That Will Affect Care: None marital status: / Current Living Situation: Family Current Living Situation Comment: Lives with malika current occupational status: retired How many Children do You have: 3 Feels Safe at Home: Yes Childhood Exposure to Second-Hand Smoke: Yes Diet: regular caffeine: Yes (tea) during the past year weight has: remained stable Dental Care, Regularly: No Physical Activity Frequency: Does not Exercise Seatbelt Use: always Sunscreen Use: No Do you think of yourself as: straight/heterosexual Gender Identity: Female Assistive Devices: Glasses, Hospital Bed and Walker Allergies Allergies Allergy/AdvReac Type Severity Reaction Status Date / Time No Known Allergies Allergy Verified 12/06/23 14:34 Home Meds Home Medications Medication Instructions Recorded Confirmed cholecalciferol (vitamin D3) 50 2,000 unit PO QAM 07/01/18 12/06/23 mcg (2,000 unit) capsule (Vitamin D3) multivitamin 1 tab PO QAM 10/14/19 12/06/23 vitamin E 268 mg (400 unit) capsule 400 unit PO QAM 08/14/20 12/06/23 coenzyme Q10 200 mg capsule 200 mg PO DAILY 11/01/21 12/06/23 furosemide 40 mg tablet 0 mg PO BID 12/06/23 12/06/23 spironolactone 25 mg tablet 25 mg PO QAM 12/06/23 12/06/23 Previous Rx's Medication Instructions Recorded magnesium chloride 64 mg 128 mg (2 x 64 mg) PO TID #540 tabs 09/08/22 (magnesium chloride) tablet,delayed release propranolol 10 mg tablet 10 mg PO TID 90 days #270 tabs 01/23/23 apixaban 2.5 mg tablet (Eliquis) 2.5 mg PO BID #60 tabs 02/13/23 levothyroxine 75 mcg tablet 75 mcg PO DAILY #90 tabs 03/01/23 pantoprazole 40 mg tablet,delayed 40 mg PO QAM #0 tabs 06/21/23 release rifaximin 550 mg tablet (Xifaxan) 550 mg PO BID #60 tabs 07/14/23 lactulose 10 gram/15 mL (15 mL) See Rx Instructions .Route 07/31/23 oral solution .COMPLEX #1,440 mL atorvastatin 10 mg tablet 10 mg PO HS #90 tabs 10/27/23 blood-glucose meter,continuous #1 ea 11/15/23 (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 [employer]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) blood-glucose sensor (Dexcom G7 #1 ea 11/15/23 Sensor device) insulin glargine 100 unit/mL (3 5 unit (0.05 mL) subcut QAM #15 mL 11/15/23 mL) subcutaneous pen (Lantus Solostar U-100 Insulin) pen needle, diabetic 31 gauge x #100 ea 11/15/23 5/16" (BD Ultra-Fine Short Pen Needle) Results & Data (ED) Vital Signs Vital Signs - 24 hr 12/06/23 12:02 12/06/23 12:26 12/06/23 12:29 Temperature 36.1 C L Temperature Source Temporal Artery Scan Pulse Rate 68 109 H 72 Pulse Rate [Apical] Pulse Rate from SpO2 Sensor 68 Respiratory Rate 20 16 16 Respiratory Effort / Characteristics Non-Labored Spontaneous Respiratory Depth Normal Blood Pressure 222/101 H Blood Pressure [Left Arm] Blood Pressure Mean 141 Blood Pressure Mean [Left Arm] Pulse Oximetry 97 94 96 Oxygen Delivery Method Room Air Room Air Sepsis Recent Fever Within 48 Hours No Sepsis New/Unexplained Change in Mental Status N/A Sepsis Action Taken by Nursing No Action Required 12/06/23 12:29 12/06/23 12:29 12/06/23 12:30 Temperature Temperature Source Pulse Rate 63 63 Pulse Rate [Apical] Pulse Rate from SpO2 Sensor 62 63 Respiratory Rate 12 17 Respiratory Effort / Characteristics Respiratory Depth Blood Pressure 216/93 H Blood Pressure [Left Arm] Blood Pressure Mean 138 Blood Pressure Mean [Left Arm] Pulse Oximetry 92 94 Oxygen Delivery Method Sepsis Recent Fever Within 48 Hours Sepsis New/Unexplained Change in Mental Status Sepsis Action Taken by Nursing 12/06/23 12:31 12/06/23 12:31 12/06/23 12:40 Temperature Temperature Source Pulse Rate 63 122 H Pulse Rate [Apical] 64 Pulse Rate from SpO2 Sensor 61 Respiratory Rate 16 13 Respiratory Effort / Characteristics Respiratory Depth Blood Pressure Blood Pressure [Left Arm] 216/93 H Blood Pressure Mean Blood Pressure Mean [Left Arm] 134 Pulse Oximetry 95 93 Oxygen Delivery Method Room Air Sepsis Recent Fever Within 48 Hours Sepsis New/Unexplained Change in Mental Status Sepsis Action Taken by Nursing 12/06/23 12:50 12/06/23 13:11 12/06/23 13:20 Temperature Temperature Source Pulse Rate 125 H 72 128 H Pulse Rate [Apical] Pulse Rate from SpO2 Sensor 79 69 Respiratory Rate 18 17 19 Respiratory Effort / Characteristics Respiratory Depth Blood Pressure Blood Pressure [Left Arm] Blood Pressure Mean Blood Pressure Mean [Left Arm] Pulse Oximetry 89 L 89 L 99 Oxygen Delivery Method Sepsis Recent Fever Within 48 Hours Sepsis New/Unexplained Change in Mental Status Sepsis Action Taken by Nursing 12/06/23 13:30 12/06/23 13:40 12/06/23 13:50 Temperature Temperature Source Pulse Rate 135 H 129 H 99 H Pulse Rate [Apical] Pulse Rate from SpO2 Sensor 68 69 66 Respiratory Rate 20 17 18 Respiratory Effort / Characteristics Respiratory Depth Blood Pressure Blood Pressure [Left Arm] Blood Pressure Mean Blood Pressure Mean [Left Arm] Pulse Oximetry 99 99 99 Oxygen Delivery Method Sepsis Recent Fever Within 48 Hours Sepsis New/Unexplained Change in Mental Status Sepsis Action Taken by Nursing 12/06/23 14:00 12/06/23 14:22 12/06/23 14:22 Temperature Temperature Source Pulse Rate 113 H 74 Pulse Rate [Apical] Pulse Rate from SpO2 Sensor 65 Respiratory Rate 12 15 Respiratory Effort / Characteristics Respiratory Depth Blood Pressure 186/81 H Blood Pressure [Left Arm] Blood Pressure Mean 119 Blood Pressure Mean [Left Arm] Pulse Oximetry 98 Oxygen Delivery Method Sepsis Recent Fever Within 48 Hours Sepsis New/Unexplained Change in Mental Status Sepsis Action Taken by Nursing 12/06/23 14:30 12/06/23 14:40 12/06/23 14:50 Temperature Temperature Source Pulse Rate 62 62 62 Pulse Rate [Apical] Pulse Rate from SpO2 Sensor 62 63 62 Respiratory Rate 18 18 14 Respiratory Effort / Characteristics Respiratory Depth Blood Pressure Blood Pressure [Left Arm] Blood Pressure Mean Blood Pressure Mean [Left Arm] Pulse Oximetry 99 99 99 Oxygen Delivery Method Sepsis Recent Fever Within 48 Hours Sepsis New/Unexplained Change in Mental Status Sepsis Action Taken by Nursing 12/06/23 15:00 12/06/23 15:10 12/06/23 15:20 Temperature Temperature Source Pulse Rate 63 66 70 Pulse Rate [Apical] Pulse Rate from SpO2 Sensor 63 66 70 Respiratory Rate 16 14 14 Respiratory Effort / Characteristics Respiratory Depth Blood Pressure Blood Pressure [Left Arm] Blood Pressure Mean Blood Pressure Mean [Left Arm] Pulse Oximetry 97 99 99 Oxygen Delivery Method Sepsis Recent Fever Within 48 Hours Sepsis New/Unexplained Change in Mental Status Sepsis Action Taken by Nursing 12/06/23 15:30 12/06/23 15:40 Temperature Temperature Source Pulse Rate 70 73 Pulse Rate [Apical] Pulse Rate from SpO2 Sensor 70 72 Respiratory Rate 17 16 Respiratory Effort / Characteristics Respiratory Depth Blood Pressure Blood Pressure [Left Arm] Blood Pressure Mean Blood Pressure Mean [Left Arm] Pulse Oximetry 100 98 Oxygen Delivery Method Sepsis Recent Fever Within 48 Hours Sepsis New/Unexplained Change in Mental Status Sepsis Action Taken by Nursing Laboratory Data 12/06/23 12:33 12/06/23 12:33 Lab Results 12/06/23 12/06/23 12/06/23 Range/Units 12:33 12:34 13:32 WBC 3.13 L (4.8-10.8) K/ul RBC 3.85 L (4.20-5.40) M/uL Hgb 11.9 L (12.0-16.0) g/dl Hct 35.9 L (37.0-47.0) % MCV 93.2 (80.0-100.0) fL MCH 30.9 (25.0-34.0) pg MCHC 33.1 (32.0-36.0) g/dL RDW Std Deviation 44.5 (36.4-46.3) fL RDW Coeff of Leah 13.1 (11.5-14.5) % Plt Count 79 L (130-400) K/uL MPV 10.9 (9.4-12.4) fL Immature Gran % (Auto) 0.3 % Neut % (Auto) 53.7 % Lymph % (Auto) 31.6 % Mower % (Auto) 9.3 % Eos % (Auto) 4.5 % Baso % (Auto) 0.6 % Neut # (Auto) 1.68 (1.40-6.50) K/uL Lymph # (Auto) 0.99 L (1.20-3.40) K/uL Mower # (Auto) 0.29 (0.11-0.59) K/uL Eos # (Auto) 0.14 (0.00-0.50) K/uL Baso # (Auto) 0.02 (0.00-0.20) K/uL Immature Gran # (Auto) 0.01 (0.01-0.20) K/uL Sodium 138 (136-145) mmol/L Potassium 4.6 (3.5-5.1) mmol/L Chloride 107 (98-107) mmol/L Carbon Dioxide 25 (21-32) mmol/L Anion Gap 6 (3-11) BUN 51 H (6-23) mg/dl Creatinine 1.56 H (0.6-1.2) mg/dl Est Cr Clr Drug Dosing Not Reportable Est GFR ( Amer) 36.0 ml/min Est GFR (Non-Af Amer) 31.1 ml/min BUN/Creatinine Ratio 32.7 H (10-20) Glucose 246 H (70-99(Fasting)) mg/dl Calcium 8.8 (8.6-10.3) mg/dl Magnesium 1.6 L (1.7-2.4) mg/dl Total Bilirubin 0.7 (0.2-1.0) mg/dl AST 27 (13-39) U/L ALT 14 (7-52) U/L Alkaline Phosphatase 85 (34-104) U/L Ammonia 140.0 H (18-72) umol/L Troponin I High Sens 14.0 (0-14) pg/ml Total Protein 7.3 (6.0-8.3) gm/dl Albumin 3.0 L (3.4-5.0) gm/dl Globulin 4.3 H (2.5-4.0) gm/dl Albumin/Globulin Ratio 0.7 L (0.9-2) Lipase 55 (11-82) U/L Urine Color Yellow Urine Appearance Cloudy A (Clear) Urine pH 5.5 (4.5-7.5) Ur Specific [place] 1.016 (1.000-1.030) Urine Protein 1+ H (Negative) Urine Glucose (UA) Negative (Negative) Urine Ketones Negative (Negative) Urine Blood Trace H (Negative) Urine Nitrite Negative (Negative) Urine Bilirubin Negative (Negative) Urine Urobilinogen Negative (Negative) Ur Leukocyte Esterase 2+ H (Negative) Urine WBC (Auto) 21-50 H (0-5) /hpf Urine RBC (Auto) 3-5 H (0-2) /hpf U Hyaline Cast (Auto) 0-2 (0-2) /lpf U Epithel Cells (Auto) 3-5 H (0-2) /hpf Urine Bacteria (Auto) 4+ H (None Seen) Administered Medications Discontinued Medications Hydralazine HCl (Hydralazine Hcl 20 Mg/Ml Vial) 10 mg IV NOW STA Stop: 12/06/23 14:16 Last Admin: 12/06/23 14:23 Dose: 10 mg Documented By: KV Sodium Chloride (Nss) 1,000 mls @ 999 mls/hr IV .Q1H1M ONE Stop: 12/06/23 13:24 Last Infusion: 12/06/23 15:35 Dose: Infused Documented By: Admin: 12/06/23 12:44 Dose: 999 mls/hr Documented By: KV Sodium Chloride (Nss) 1,000 mls @ 999 mls/hr IV .Q1H1M ONE Stop: 12/06/23 15:34 Last Admin: 12/06/23 16:06 Dose: 999 mls/hr Documented By: KV Lactulose (Lactulose Syrup 30 Gm/45 Ml Udp) 30 gm PO NOW STA Stop: 12/06/23 14:35 Last Admin: 12/06/23 16:06 Dose: 30 gm Documented By: KV Propranolol HCl (Propranolol Hcl 10 Mg Tab) 10 mg PO NOW STA Stop: 12/06/23 15:43 Last Admin: 12/06/23 16:05 Dose: 10 mg Documented By: KV Spironolactone (Spironolactone 25 Mg Tab) 25 mg PO NOW ONE Stop: 12/06/23 12:46 Last Admin: 12/06/23 13:27 Dose: 25 mg Documented By: EMLISSA Imaging Data Radiologist's Impression: Chest X-Ray 12/06/23 12:07 SINGLE VIEW CHEST CLINICAL HISTORY: Atypical chest pain FINDINGS: An AP, portable, upright chest radiograph is compared to study dated 07/24/2023. The examination is degraded by portable technique and apical lordotic positioning. The heart is enlarged noting atherosclerotic calcification of the thoracic aorta. The pulmonary vasculature is noncongested. Chronic interstitial thickening is similar to previous. There is bibasilar scarring/atelectasis. The lungs and pleural spaces are otherwise clear. No pneumothorax is seen. The skeletal structures are osteopenic. The bony thorax is grossly intact. Cholecystectomy clips are seen in the right upper quadrant. IMPRESSION: Cardiomegaly with no acute cardiopulmonary abnormality identified. ACT 112: Negative or not required by law. Electronically signed by: Kenny Jung M.D. 12/06/2023 1:[address] 12/06/23 12:24 CT SCAN OF THE BRAIN WITHOUT IV CONTRAST CLINICAL HISTORY: Slurred speech. COMPARISON STUDY: CT of the brain dated 07/24/2023. TECHNIQUE: Unenhanced axial CT scan of the brain is performed from the vertex to the skull base. A dose lowering technique was utilized adhering to the principles of ALARA. CT DOSE: 551.8 mGy.cm FINDINGS: Brain parenchyma: There is age-related involutional change noting [id number] subcortical and periventricular microangiopathic disease. There is no hemorrhage, mass effect, or evidence of acute territorial ischemia by CT criteria. A 1.9 cm calcified meningioma along the right temporal convexity is unchanged. Stein-white matter differentiation is preserved. No extra-axial fluid collection is seen. Ventricles, sulci, cisterns: Prominent secondary to involutional change. Intracranial vasculature: There is atherosclerotic calcification of the cavernous carotid arteries. Calvarium: Unremarkable. Sinuses and mastoids: The visualized paranasal sinuses are clear. The mastoid air cells are well pneumatized. Orbits: The bony orbits are grossly intact. There are bilateral ocular lens implants. IMPRESSION: There is no hemorrhage, mass effect, or evidence of acute territorial ischemia by CT criteria. ACT 112: Negative or not required by law. Electronically signed by: Kenny Jung M.D. 12/06/2023 1:20 PM Discharge Plan Visit Data Chief Complaint: Abnormal Labs/Diagnostic Testing Stated Complaint: LOW MAGNESIUM ED Provider: Arsh King Discharge Problem: Acute hepatic encephalopathy, Hypomagnesemia, Anemia, Leukopenia, HTN (hypertension) Patient Disposition: Admitted As Inpatient Discharge Instructions Interventions: ED Discharge Assessment Last Done: 12/06/23 16:41 Discharge Problem: Anemia Qualifiers: Anemia type: unspecified type Qualified Code(s): D64.9 - Anemia, unspecified Leukopenia Qualifiers: Leukopenia type: unspecified Qualified Code(s): D72.819 - Decreased white blood cell count, unspecified HTN (hypertension) Qualifiers: Hypertension type: unspecified Qualified Code(s): I10 - Essential (primary) hypertension
[2023-12-06] MEDS: SODIUM CHLORIDE 0.9% 1,000 ML IV ONE ×2 (12:44→16:06)
[2023-12-06 13:06] LABS: Alanine Aminotransferase 14 U/L (7-52); Albumin Globulin Ratio 0.7 (0.9-2); Alkaline Phosphatase 85 U/L (34-104); Anion Gap 6 (3-11); Aspartate Aminotransferase 27 U/L (13-39); BUN Creatinine Ratio 32.7 (10-20); Bilirubin,Total 0.7 mg/dl (0.2-1.0); Blood Urea Nitrogen 51 mg/dl (6-23); Calcium 8.8 mg/dl (8.6-10.3); Carbon Dioxide 25 mmol/L (21-32); Chloride 107 mmol/L (98-107); Est GFR (Non-African American) 31.1 ml/min; Globulin 4.3 gm/dl (2.5-4.0); Glucose 246 mg/dl (70-99(Fasting)); Lipase 55 U/L (11-82); Magnesium 1.6 mg/dl (1.7-2.4); Potassium 4.6 mmol/L (3.5-5.1); Sodium 138 mmol/L (136-145); Total Protein 7.3 gm/dl (6.0-8.3)
[2023-12-06 13:12] LABS: Basophils # (auto) 0.02 K/uL (0.00-0.20); Basophils % (auto) 0.6 %; Eosinophils # (auto) 0.14 K/uL (0.00-0.50); Eosinophils % (auto) 4.5 %; Hematocrit (blood only) 35.9 % (37.0-47.0); Hemoglobin 11.9 g/dl (12.0-16.0); Immature Granulocytes # (auto) 0.01 K/uL (0.01-0.20); Immature Granulocytes % (auto) 0.3 %; Lymphocytes # (auto) 0.99 K/uL (1.20-3.40); Lymphocytes % (auto) 31.6 %; Mean Corpuscular Hemoglobin 30.9 pg (25.0-34.0); Mean Corpuscular Hgb Conc 33.1 g/dL (32.0-36.0); Mean Corpuscular Volume 93.2 fL (80.0-100.0); Mean Platelet Volume 10.9 fL (9.4-12.4); Monocytes # (auto) 0.29 K/uL (0.11-0.59); Monocytes % (auto) 9.3 %; Neutrophils # (auto) 1.68 K/uL (1.40-6.50); Neutrophils % (auto) 53.7 %; Platelet Count 79 K/uL (130-400); RDW Coefficient of Variation 13.1 % (11.5-14.5); RDW Standard Deviation 44.5 fL (36.4-46.3); Red Blood Count 3.85 M/uL (4.20-5.40); White Blood Count 3.13 K/ul (4.8-10.8)
[2023-12-06 13:14] LABS: Appearance Urine Cloudy (Clear); Bacteria Urine Automated 4+ (None Seen); Bilirubin Urine Negative (Negative); Blood Urine Trace (Negative); Cast Urine Automated 0-2 /lpf (0-2); Color Urine Yellow; Glucose Urine UA Negative (Negative); Ketones Urine Negative (Negative); Leukocyte Esterase Urine 2+ (Negative); Nitrite Urine Negative (Negative); Protein Urine 1+ (Negative); Specific Gravity Urine 1.016 (1.000-1.030); Urobilinogen Urine Negative (Negative); WBC Urine Automated 21-50 /hpf (0-5); pH Urine 5.5 (4.5-7.5)
--- NOTE | 2023-12-06 13:22 | CT Scan Report ---
CT SCAN OF THE BRAIN WITHOUT IV CONTRAST CLINICAL HISTORY: Slurred speech. COMPARISON STUDY: CT of the brain dated 07/24/2023. TECHNIQUE: Unenhanced axial CT scan of the brain is performed from the vertex to the skull base. A do se lowering technique was utilized adhering to the principles of ALARA. CT DOSE: 551.8 mGy.cm FINDINGS: Brain parenchyma: There is age-related involutional change noting [id number] subcortical and pe riventricular microangiopathic disease. There is no hemorrhage, mass effect, or evidence of acute ter ritorial ischemia by CT criteria. A 1.9 cm calcified meningioma along the right temporal convexity is unchanged. Stein-white matter differentiation is preserved. No extra-axial fluid collection is seen. Ventricles, sulci, cisterns: Prominent secondary to involutional change. Intracranial vasculature: There is atherosclerotic calcification of the cavernous carotid arteries. Calvarium: Unremarkable. Sinuses and mastoids: The visualized paranasal sinuses are clear. The mastoid air cells are well pneu matized. Orbits: The bony orbits are grossly intact. There are bilateral ocular lens implants. IMPRESSION: There is no hemorrhage, mass effect, or evidence of acute territorial ischemia by CT tomy [place]. ACT 112: Negative or not required by law. Electronically signed by: Kenny Jung M.D. 12/06/2023 1:20 PM
--- NOTE | 2023-12-06 13:23 | XRay Report ---
SINGLE VIEW CHEST CLINICAL HISTORY: Atypical chest pain FINDINGS: An AP, portable, upright chest radiograph is compared to study dated 07/24/2023. The examinat ion is degraded by portable technique and apical lordotic positioning. The heart is enlarged noting a therosclerotic calcification of the thoracic aorta. The pulmonary vasculature is noncongested. Chroni c interstitial thickening is similar to previous. There is bibasilar scarring/atelectasis. The lungs and pleural spaces are otherwise clear. No pneumothorax is seen. The skeletal structures are osteopen ic. The bony thorax is grossly intact. Cholecystectomy clips are seen in the right upper quadrant. IMPRESSION: Cardiomegaly with no acute cardiopulmonary abnormality identified. ACT 112: Negative or not required by law. Electronically signed by: Kenny Jung M.D. 12/06/2023 1:21 PM
[2023-12-06] MEDS: SPIRONOLACTONE 25 MG TAB PO ONE (13:27)
[2023-12-06] MEDS: hydrALAZINE HCL 20 MG/ML VIAL IV STA (14:23)
--- NOTE | 2023-12-06 14:32 | History & Physical Report ---
Date of Service December 06, 2023 Assessment & Plan (1) Hepatic encephalopathy: Plan: Similar presentation secondary to hepatic encephalopathy Lactulose 45 g PO BID Rifaximin 550 mg p.o. BID (2) Generalized weakness: Plan: Suspect secondary to hepatic encephalopathy UA pending PT/OT evals (3) Nausea & vomiting: Plan: Patient reports repeated episodes of this, currently resolved, monitor for recurrence Ondansetron PRN (4) Hypomagnesemia: Plan: Continue magnesium supplement with 2 g mag sulfate IV Repeat level in a.m. (5) Hypertensive urgency: Plan: Due to missing her usual morning medications from nausea and vomiting Restart her usual medications with Lasix, spironolactone, propranolol (6) 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 to alcohol: Plan: No INR to calculate MELD score, will get INR with a.m. labs No prior ascites on CT in Jul 2022 Continue usual diuretics with furosemide and spironolactone (7) Aortic stenosis: Plan: Suspected cause of her murmur on exam Moderate per echocardiogram in November 2022, no current symptoms to suggest need to repeat, follow-up outpatient (8) Hypothyroidism: Plan: TSH 2.137 in July 2023 Continue levothyroxine (9) PAF (paroxysmal atrial fibrillation): Plan: Currently normal sinus rhythm Continue Eliquis for anticoagulation (10) Diabetes mellitus with peripheral vascular disease: Plan: HbA1c 7.3 in May Repeat HbA1c in a.m. Continue Lantus 5 units daily NovoLog: --Goal BSG Range: Low 110 mg/dL, High 140 mg/dL --Correction Factor: 45 mg/dL/unit --Carbohydrate ratio = 15 g/unit --BSGs ACHS if eating, q6h if npo Plan VTE Prophylaxis - Eliquis Diet - low-sodium, Disposition - observation to [facility] Admission and Anticipated Discharge Date Admission Date: December 06, 2023 History of Present Illness Chief Complaint: Generalized weakness, fatigue Primary Care Provider: Jian Pierce DO Rosalind Dudley is an 78 year old female who presents to the ER with generalized fatigue, confusion, nausea and vomiting. She isn't clear about her duration of symptoms but reports feeling generally unwell starting around Satur (4 days ago). She reports this is similar to per prior presentations for hepatic encephalopathy or low potassium/magnesium with no clear diagnosis regarding her nausea and vomiting. She denies any abdominal pain, change in bowels, melena, hematochezia, hematemesis. No chest pain or reflux symptoms. She denies any current nausea or vomiting while in the emergency room and is already feeling improved. She reports taking lactulose as prescribed and does have diarrhea but cannot tell me how many bowel movements a day. No unilateral weakness, change in vision or hearing. She does note some slurred speech which is not unusual for her with hepatic encephalopathy. She denies any fever, chills, respiratory or u rinary symptoms. Allergies Allergy/AdvReac Type Severity Reaction Status Date / Time No Known Allergies Allergy Verified 12/06/23 14:34 Home Medications Medication Instructions Recorded Confirmed Type cholecalciferol (vitamin D3) 50 2,000 unit PO QAM 07/01/18 12/06/23 History mcg (2,000 unit) capsule (Vitamin D3) multivitamin 1 tab PO QAM 10/14/19 12/06/23 History vitamin E 268 mg (400 unit) capsule 400 unit PO QAM 08/14/20 12/06/23 History coenzyme Q10 200 mg capsule 200 mg PO DAILY 11/01/21 12/06/23 History magnesium chloride 64 mg 128 mg (2 x 64 mg) PO TID #540 tabs 09/08/22 12/06/23 Rx (magnesium chloride) tablet,delayed release propranolol 10 mg tablet 10 mg PO TID 90 days #270 tabs 01/23/23 12/06/23 Rx apixaban 2.5 mg tablet (Eliquis) 2.5 mg PO BID #60 tabs 02/13/23 12/06/23 Rx levothyroxine 75 mcg tablet 75 mcg PO DAILY #90 tabs 03/01/23 12/06/23 Rx pantoprazole 40 mg tablet,delayed 40 mg PO QAM #0 tabs 06/21/23 12/06/23 Rx release rifaximin 550 mg tablet (Xifaxan) 550 mg PO BID #60 tabs 07/14/23 12/06/23 Rx lactulose 10 gram/15 mL (15 mL) See Rx Instructions .Route 07/31/23 12/06/23 Rx oral solution .COMPLEX #1,440 mL atorvastatin 10 mg tablet 10 mg PO HS #90 tabs 10/27/23 12/06/23 Rx blood-glucose meter,continuous #1 ea 11/15/23 11/21/23 Rx (Dexcom G7 Vacuum Tester Cans) blood-glucose sensor (Dexcom G7 #1 ea 11/15/23 11/21/23 Rx Sensor device) insulin glargine 100 unit/mL (3 5 unit (0.05 mL) subcut QAM #15 mL 11/15/23 12/06/23 Rx mL) subcutaneous pen (Lantus Solostar U-100 Insulin) pen needle, diabetic 31 gauge x #100 ea 11/15/23 11/21/23 Rx 5/16" (BD Ultra-Fine Short Pen Needle) furosemide 40 mg tablet 0 mg PO BID 12/06/23 12/06/23 History spironolactone 25 mg tablet 25 mg PO QAM 12/06/23 12/06/23 History Past Med/Surg History Problem List (Updated 12/07/23 @ 06:39 by Joni Hopkins MD) Generalized weakness HTN (hypertension) (Acute) Leukopenia (Acute) Anemia (Acute) Hypomagnesemia (Acute) Acute hepatic encephalopathy (Acute) Hypertensive urgency Fatigue Pancytopenia LLQ abdominal pain Inflammatory arthritis Hypertension (Acute) Slurred speech (Acute) Hyperammonemia (Acute) Altered mental status (Acute) Aortic stenosis Chronic right-sided congestive heart failure History of DVT (deep vein thrombosis) Presence of IVC filter Right leg pain Hepatic encephalopathy Weakness (Acute) Hypomagnesemia (Acute) Anticoagulant long-term use (Acute) Hypothyroidism UTI (urinary tract infection) Chronic diastolic heart failure Stage 3b chronic kidney disease Hyperammonemia Cor pulmonale Chronic kidney disease, stage III (moderate) CHF (congestive heart failure) (Acute) Morbid obesity PAF (paroxysmal atrial fibrillation) 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) Diastolic dysfunction Atrial fibrillation with rapid ventricular response Chronic back pain Anemia (Acute) Rectal bleeding Abnormal mammogram of left breast Left breast lump Hematuria Encounter for examination following treatment at hospital Fall (Acute) Diarrhea Lower leg edema Proteinuria Right knee pain Lumbar stenosis with neurogenic claudication MGUS (monoclonal gammopathy of unknown significance) (Chronic ~02/2015) Meningioma (Acute) Vitamin D deficiency (Acute) Pituitary macroadenoma (Acute) Mitral regurgitation (Acute) Microalbuminuria (Acute) Hypercholesterolemia (Acute) Diabetes mellitus with peripheral vascular disease (Acute) Cervical spondylosis (Acute) Thickened endometrium Obesity, diabetes, and hypertension syndrome Bilateral lower extremity edema (Acute) Age-related physical debility Medical History (Updated 12/07/23 @ 06:39 by Joni Hopkins MD) Infective endocarditis Streptococcal bacteremia ROSALES (obstructive sleep apnea) Rectal bleeding Hypomagnesemia Nausea vomiting and diarrhea Dizziness Acute hyperkalemia Encephalopathy acute Nausea & vomiting Rhinovirus Acute on chronic diastolic heart failure Volume overload Lactate blood increase Vomiting and diarrhea Wheezing Weakness DVT (deep venous thrombosis) Elevated troponin EMY (acute kidney injury) Thrombocytopenia Chronic deep vein thrombosis (DVT) Fever Pulmonary embolism 2018 > no known cause > Filter to right groin Diverticular hemorrhage resolved GI bleed none at present Esophageal varices determined by endoscopy Monoclonal gammopathy Osteoarthritis GERD (gastroesophageal reflux disease) Migraine Vertigo Surgical History (Updated 12/06/23 @ 16:26 by Joni Hopkins MD) Status post lumbar surgery History of laparoscopic cholecystectomy History of section x3 History of bilateral breast reduction surgery History of dilatation and curettage History of carpal tunnel release of both wrists History of total left knee replacement (TKR) History of total right knee replacement (TKR) History of lumbar spinal fusion hardware in place History of colonoscopy History of esophagogastroduodenoscopy (EGD) History of tooth extraction all teeth History of tonsillectomy History of bilateral cataract extraction Family History Mother Family history of diabetes mellitus Brother Family history of diabetes mellitus 3 brothers Colorectal cancer Myocardial infarction x 2 Father Myocardial infarction Denies family history of Ovarian cancer Prostate cancer Breast cancer Social History Smoking Status: Former smoker Tobacco Type: Cigarettes Age Started Using Tobacco: 15; Age Quit Using Tobacco: 21; Cigarettes Per Day: stopped 55 years ago; Second Hand Exposure: No; Do You Dip or Chew Tobacco: No; Hx Alcohol Use: No Hx Substance Use: No Preferred Language: Czech Communication Ability: Effective Visual Impairment: Limited Hearing Ability: Normal Fiscal Officer Required: No Beliefs That Will Affect Care: None marital status: / Current Living Situation: Family Current Living Situation Comment: Lives with neice current occupational status: retired How many Children do You have: 3 Feels Safe at Home: Yes Childhood Exposure to Second-Hand Smoke: Yes Diet: regular caffeine: Yes (tea) during the past year weight has: remained stable Dental Care, Regularly: No Physical Activity Frequency: Does not Exercise Seatbelt Use: always Sunscreen Use: No Do you think of yourself as: straight/heterosexual Gender Identity: Female Assistive Devices: Denture - Upper, Denture - Lower and Walker Review of Systems Review of Systems: All systems reviewed & are unremarkable except as noted in HPI & below Physical Exam Constitutional: WD/WN, vitals as above Eyes: PERRL, conjunctivae normal, anicteric sclerae ENMT: external ear and nose normal, oropharynx normal Respiratory: normal respiratory effort, lungs clear to auscultation Cardiovascular: RRR, no murmur, no edema Musculoskeletal: no cyanosis or clubbing, extremities motor strength 5/5 Skin: no rashes, warm and dry Neurologic: moves all extremities and awake; no focal motor deficits and not confused Speech / Cognition: normal speech Motor/Sensory: no tremor and no pronator drift Cranial Nerves: PERRL, EOM intact bilaterally, normal facial strength, tongue midline, able to rotate head bilaterally, able to elevate shoulders bilaterally, no nystagmus and symmetric palate elevation Coordination: normal [id number] test Psychiatric: Orientation: alert, oriented to person and oriented to place; + not oriented to time Genitourinary: no CVA tenderness Results & Data Results & Data Vital Signs (Past 12 Hours) Vital Signs Temp Pulse Pulse Resp BP BP Pulse Ox 12/06/23 14:00 113 H 12 98 12/06/23 13:50 99 H 18 99 12/06/23 13:40 129 H 17 99 12/06/23 13:30 135 H 20 99 12/06/23 13:20 128 H 19 99 12/06/23 13:11 72 17 89 L 12/06/23 12:50 125 H 18 89 L 12/06/23 12:40 122 H 13 93 12/06/23 12:31 63 12/06/23 12:31 64 16 216/93 H 95 12/06/23 12:30 63 17 94 12/06/23 12:29 63 12 92 12/06/23 12:29 216/93 H 12/06/23 12:29 72 16 96 12/06/23 12:26 109 H 16 94 05/15/24 12:02 36.1 C L 68 20 222/101 H 97 O2 Del Method 12/06/23 14:00 12/06/23 13:50 12/06/23 13:40 12/06/23 13:30 12/06/23 13:20 12/06/23 13:11 12/06/23 12:50 12/06/23 12:40 12/06/23 12:31 12/06/23 12:31 Room Air 12/06/23 12:30 12/06/23 12:29 12/06/23 12:29 12/06/23 12:29 Room Air 12/06/23 12:26 12/06/23 12:02 Room Air Laboratory Results Abnormal lab results 12/06/23 12/06/23 Range/Units 12:33 13:32 WBC 3.13 L (4.8-10.8) K/ul RBC 3.85 L (4.20-5.40) M/uL Hgb 11.9 L (12.0-16.0) g/dl Hct 35.9 L (37.0-47.0) % Plt Count 79 L (130-400) K/uL Lymph # (Auto) 0.99 L (1.20-3.40) K/uL BUN 51 H (6-23) mg/dl Creatinine 1.56 H (0.6-1.2) mg/dl BUN/Creatinine Ratio 32.7 H (10-20) Glucose 246 H (70-99(Fasting)) mg/dl POC Glucose (70-99) mg/dl Magnesium 1.6 L (1.7-2.4) mg/dl Ammonia 140.0 H (18-72) umol/L Albumin 3.0 L (3.4-5.0) gm/dl Globulin 4.3 H (2.5-4.0) gm/dl Albumin/Globulin Ratio 0.7 L (0.9-2) Diagnostic Findings CT SCAN OF THE BRAIN WITHOUT IV CONTRAST CLINICAL HISTORY: Slurred speech. COMPARISON STUDY: CT of the brain dated 07/24/2023. TECHNIQUE: Unenhanced axial CT scan of the brain is performed from the vertex to the skull base. A dose lowering technique was utilized adhering to the principles of ALARA. CT DOSE: 551.8 mGy.cm FINDINGS: Brain parenchyma: There is age-related involutional change noting [id number] subcortical and periventricular microangiopathic disease. There is no hemorrhage, mass effect, or evidence of acute territorial ischemia by CT criteria. A 1.9 cm calcified meningioma along the right temporal convexity is unchanged. Stein-white matter differentiation is preserved. No extra-axial fluid collection is seen. Ventricles, sulci, cisterns: Prominent secondary to involutional change. Intracranial vasculature: There is atherosclerotic calcification of the cavernous carotid arteries. Calvarium: Unremarkable. Sinuses and mastoids: The visualized paranasal sinuses are clear. The mastoid air cells are well pneumatized. Orbits: The bony orbits are grossly intact. There are bilateral ocular lens implants. IMPRESSION: There is no hemorrhage, mass effect, or evidence of acute territorial ischemia by CT criteria. SINGLE VIEW CHEST CLINICAL HISTORY: Atypical chest pain FINDINGS: An AP, portable, upright chest radiograph is compared to study dated 07/24/2023. The examination is degraded by portable technique and apical lordotic positioning. The heart is enlarged noting atherosclerotic calcification of the thoracic aorta. The pulmonary vasculature is noncongested. Chronic interstitial thickening is similar to previous. There is bibasilar scarring/atelectasis. The lungs and pleural spaces are otherwise clear. No pneumothorax is seen. The skeletal structures are osteopenic. The bony thorax is grossly intact. Cholecystectomy clips are seen in the right upper quadrant. IMPRESSION: Cardiomegaly with no acute cardiopulmonary abnormality identified. Medications Administered ER Medications Given: Normal saline 1L bolus Spironolactone 25mg PO Hydralazine 10mg IV Lactulose 30g PO Normal saline 1L bolus ECG Rate (beats per minute): 72 Rhythm: normal sinus Findings: + RBBB and + left axis deviation Comparison ECG Date: from (Jul 24, 2023) Change: no significant change Code Status & VTE Plan Code Status DNR/DNI VTE Prophylaxis Plan VTE Prophylaxis will be ordered: Yes PG Care Time/CCT Total # of Minutes Spent Total Time Spent with Patient: Total time spent is greater than 50% in coordination of care (as documented) at patient's floor/unit and/or counseling patient: Coding Level of Care Code 39643 INT INP/OBS CARE 3/75MIN Diagnoses Hepatic encephalopathy K76.82 Generalized weakness R53.1 Nausea & vomiting R11.2 Hypomagnesemia E83.42 Hypertensive urgency I16.0 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 to alcohol K74.60 Aortic stenosis I35.0 Hypothyroidism E03.9 PAF (paroxysmal atrial fibrillation) I48.0 Diabetes mellitus with peripheral vascular disease E11.51
[2023-12-06] MEDS: PROPRANOLOL HCL 10 MG TAB PO STA (16:05)
[2023-12-06] MEDS: LACTULOSE SYRUP 30 GM/45 ML UDP PO STA (16:06)
--- NOTE | 2023-12-06 16:49 | Electrocardiogram Report ---
Test Reason : Blood Pressure : / mmHG Vent. Rate : 072 BPM Atrial Rate : 072 BPM P-R Int : 124 ms QRS Dur : 136 ms QT Int : 440 ms P-R-T Axes : 055 -67 029 degrees QTc Int : 481 ms Normal sinus rhythm Left axis deviation Right bundle branch block Abnormal ECG When compared with ECG of 24-JUL-2023 07:12, QRS voltage has decreased Confirmed by Wesley Sanders ([id number]) on 12/06/2023 4:48:54 PM Referred By: Confirmed By:Yobany Sanders
[2023-12-06] MEDS ORDERED: GLUCOSE 10 TAB/TUBE PO PRN (17:48)
[2023-12-06] MEDS ORDERED: ONDANSETRON INJ 2 MG/ML 2 ML VIAL IV PRN (17:48)
[2023-12-06] MEDS ORDERED: DEXTROSE 50% 50 ML SYRINGE IV PRN (17:48)
[2023-12-06] MEDS ORDERED: GLUCOSE 40% GEL 15 GM TUBE PO PRN (17:48)
[2023-12-06] MEDS ORDERED: GLUCAGON FOR INJ 1 MG VIAL SQ PRN (17:48)
[2023-12-06] MEDS ORDERED: CARBOHYDRATES FOR HYPOGLYCEMIA PO PRN (17:48)
[2023-12-06] MEDS ORDERED: ACETAMINOPHEN 325 MG TAB PO PRN (17:48)
[2023-12-06] MEDS: Patient's HEIGHT &/or WEIGHT Needed SCH (18:16)
[2023-12-06] MEDS: MAGNESIUM SULFATE / D5W 1 GM/100 ML BAG IV SCH (18:38)
[2023-12-06] MEDS: FUROSEMIDE 40 MG TAB PO SCH (20:08)
[2023-12-06] MEDS: MAGNESIUM CHLORIDE W/CALCIUM 64MG DELAYED REL TAB PO SCH (20:10)
[2023-12-06] MEDS: LACTULOSE SYRUP 10 GM/15 ML BTL 960 ML PO SCH (20:10)
[2023-12-06] MEDS: rifAXIMin 550 MG TABLET PO SCH (20:10)
[2023-12-06] MEDS: PROPRANOLOL HCL 10 MG TAB PO SCH (20:10)
[2023-12-06] MEDS: APIXABAN 2.5 MG TAB PO SCH (20:11)
[2023-12-06] MEDS: ATORVASTATIN 10 MG TAB PO SCH (20:11)
[2023-12-06] MEDS: INSULIN ASPART PER UNIT CHARGE SC SCH (21:06)
[2023-12-06] MEDS ORDERED: Nursing to Pharmacy Communication SCH (23:00)
[2023-12-06] MEDS: INSULIN ASPART PER UNIT CHARGE SC STA (23:07)
[2023-12-07] MEDS: LEVOTHYROXINE SODIUM 75 MCG TABLET PO SCH (05:48)
[2023-12-07 06:49] LABS: Basophils # (auto) 0.03 K/uL (0.00-0.20); Basophils % (auto) 0.8 %; Eosinophils # (auto) 0.18 K/uL (0.00-0.50); Hemoglobin 11.5 g/dl (12.0-16.0); Immature Granulocytes # (auto) 0.01 K/uL (0.01-0.20); Immature Granulocytes % (auto) 0.3 %; Lymphocytes # (auto) 1.04 K/uL (1.20-3.40); Lymphocytes % (auto) 29.1 %; Mean Corpuscular Hemoglobin 31.3 pg (25.0-34.0); Mean Corpuscular Hgb Conc 32.9 g/dL (32.0-36.0); Mean Corpuscular Volume 95.1 fL (80.0-100.0); Mean Platelet Volume 10.8 fL (9.4-12.4); Monocytes # (auto) 0.37 K/uL (0.11-0.59); Monocytes % (auto) 10.4 %; Neutrophils # (auto) 1.94 K/uL (1.40-6.50); Neutrophils % (auto) 54.4 %; Platelet Count 73 K/uL (130-400); RDW Coefficient of Variation 13.3 % (11.5-14.5); RDW Standard Deviation 46.5 fL (36.4-46.3); Red Blood Count 3.68 M/uL (4.20-5.40); White Blood Count 3.57 K/ul (4.8-10.8)
[2023-12-07 07:07] LABS: Albumin Globulin Ratio 0.7 (0.9-2); Albumin Level 2.8 gm/dl (3.4-5.0); Bilirubin,Total 0.8 mg/dl (0.2-1.0); Calcium 8.8 mg/dl (8.6-10.3); Creatinine Clr Calc Pharmacy 30.5 ml/min; Est GFR (African American) 35.4 ml/min; Est GFR (Non-African American) 30.6 ml/min; Globulin 3.9 gm/dl (2.5-4.0); Magnesium 1.9 mg/dl (1.7-2.4); Potassium 3.9 mmol/L (3.5-5.1); Total Protein 6.7 gm/dl (6.0-8.3)
[2023-12-07 07:12] LABS: INR 1.1 (0.9-1.1); Prothrombin Time 12.1 Seconds (9.0-12.0)
[2023-12-07 07:35] LABS: Estimated Average Glucose 223 mg/dl; Hemoglobin A1C 9.4 % (4.5-5.6)
[2023-12-07] MEDS ORDERED: NON-FORMULARY MEDICATION (Coenzyme Q10 200 mg capsule) PO SCH (09:00)
[2023-12-07] MEDS: LANTUS PER UNIT CHARGE SQ SCH (09:06)
[2023-12-07] MEDS: CHOLECALCIFEROL 25 MCG (1000 UNITS) TAB PO SCH (09:13)
[2023-12-07] MEDS: SPIRONOLACTONE 25 MG TAB PO SCH (09:14)
[2023-12-07] MEDS: PANTOprazole 40 MG TAB PO SCH (09:14)
[2023-12-07] MEDS: MULTIVITAMIN TAB PO SCH (09:14)
[2023-12-07] MEDS: cefTRIAXone SODIUM 2,000 MG/50 ML BAG IV SCH (09:17)
--- NOTE | 2023-12-07 09:36 | Hospitalist Progress Note ---
Date of Service December 07, 2023 Assessment & Plan (1) Hepatic encephalopathy: Plan: * Similar presentation secondary to liver cirrhosis and UTI given urine culture growing gram negative bacilli * Lactulose 45 g PO BID * Rifaximin 550 mg p.o. 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: Plan: * 12 points MELD score; 6.0% estimated 3-month mortality * No prior ascites on CT in Jul 2022 * Continue usual diuretics with furosemide and spironolactone (7) Aortic stenosis: Plan: * Suspected cause of her murmur on exam * Moderate per echocardiogram in November 2022, no current symptoms to suggest need to repeat, follow-up outpatient (8) Hypothyroidism: Plan: * TSH 2.137 in July 2023 * Continue levothyroxine (9) PAF (paroxysmal atrial fibrillation): Plan: * Currently normal sinus rhythm * Continue Eliquis for anticoagulation (10) Diabetes mellitus with peripheral vascular disease: Plan: * HbA1c 7.3 in May * Repeat HbA1c in a.m. * Continue Lantus 5 units daily * NovoLog: * Goal BSG Range: Low 110 mg/dL, High 140 mg/dL * Correction Factor: 45 mg/dL/unit * Carbohydrate ratio = 15 g/unit * BSGs ACHS if eating, q6h if npo Plan VTE Prophylaxis - Eliquis Diet - low-sodium, Disposition - observation to [facility] Admission and Anticipated Discharge Date Admission Date: December 06, 2023 Supervising Physician Co-Signing Physician Notes I personally examined the patient and verified almanzar points of history and exam, discussed case, and agree with decision making and plan documented by Cale LOONEY with contribution by Dr. Rios. Patient with clinical improvement. Awaiting PT recommendations. Niece at bedside. Subjective Today, she reports doing much better and states that she is almost at her baseline. Patient denies chest pain, nausea, vomiting, abdominal pain, dysuria, hematuria, and any confusion.She states that she was able to move her bowels following the lactulose yesterday and this helped her feel better. Review of Systems Review of Systems: All systems reviewed & are unremarkable except as noted in HPI & below. Physical Exam Physical Exam: General: awake, alert, no acute distress Head: Normocephalic, atraumatic ENT: PERRL, EOMI, neck supple; no lymphadenopathy Neuro: alert and oriented to person and place, not oriented to time; normal mood and affect; normal speech; moves all extremities and awake CV: RRR; S1/S2 normal; midsystolic aortic murmur present; pulses intact and symmetric at radial, DP, and PT Lungs: no acute respiratory distress; symmetrical chest wall expansion; clear breath sounds across all lung neely; no wheezing GI: bowel sounds present; Soft; nondistended; no ascites; no rebound/guarding : no CVA tenderness Skin: no rashes, warm and dry Psych: Normal mood and affect Results & Data Results & Data Vital Signs (Past 12 Hours) Vital Signs Temp Pulse Resp BP Pulse Ox O2 Del Method 12/07/23 07:47 36.7 C 68 16 163/71 H 97 Room Air Laboratory Results 12/07/23 12/07/23 12/07/23 07:16 06:12 00:09 WBC 3.57 L RBC 3.68 L Hgb 11.5 L Hct 35.0 L MCV 95.1 MCH 31.3 MCHC 32.9 RDW Std Deviation 46.5 H RDW Coeff of Leah 13.3 Plt Count 73 L MPV 10.8 Immature Gran % (Auto) 0.3 Neut % (Auto) 54.4 Lymph % (Auto) 29.1 Haywood % (Auto) 10.4 Eos % (Auto) 5.0 Baso % (Auto) 0.8 Neut # (Auto) 1.94 Lymph # (Auto) 1.04 L Haywood # (Auto) 0.37 Eos # (Auto) 0.18 Baso # (Auto) 0.03 Immature Gran # (Auto) 0.01 PT 12.1 H INR 1.1 Sodium 139 Potassium 3.9 Chloride 107 Carbon Dioxide 24 Anion Gap 8 BUN 49 H Creatinine 1.58 H Est Cr Clr Drug Dosing 30.5 Est GFR ( Amer) 35.4 Est GFR (Non-Af Amer) 30.6 BUN/Creatinine Ratio 31.0 H Glucose 126 H POC Glucose 124 H 160 H Estimat Average Glucose 223 Hemoglobin A1c 9.4 H Calcium 8.8 Magnesium 1.9 Total Bilirubin 0.8 AST 26 ALT 13 Alkaline Phosphatase 76 Ammonia Troponin I High Sens Total Protein 6.7 Albumin 2.8 L Globulin 3.9 Albumin/Globulin Ratio 0.7 L Lipase Urine Color Urine Appearance Urine pH Ur Specific [place] Urine Protein Urine Glucose (UA) Urine Ketones Urine Blood Urine Nitrite Urine Bilirubin Urine Urobilinogen Ur Leukocyte Esterase Urine WBC (Auto) Urine RBC (Auto) U Hyaline Cast (Auto) U Epithel Cells (Auto) Urine Bacteria (Auto) 12/06/23 12/06/23 12/06/23 22:01 20:14 17:33 WBC RBC Hgb Hct MCV MCH MCHC RDW Std Deviation RDW Coeff of Leah Plt Count MPV Immature Gran % (Auto) Neut % (Auto) Lymph % (Auto) Haywood % (Auto) Eos % (Auto) Baso % (Auto) Neut # (Auto) Lymph # (Auto) Haywood # (Auto) Eos # (Auto) Baso # (Auto) Immature Gran # (Auto) PT INR Sodium Potassium Chloride Carbon Dioxide Anion Gap BUN Creatinine Est Cr Clr Drug Dosing Est GFR ( Amer) Est GFR (Non-Af Amer) BUN/Creatinine Ratio Glucose POC Glucose 291 H 342 H* 196 H Estimat Average Glucose Hemoglobin A1c Calcium Magnesium Total Bilirubin AST ALT Alkaline Phosphatase Ammonia Troponin I High Sens Total Protein Albumin Globulin Albumin/Globulin Ratio Lipase Urine Color Urine Appearance Urine pH Ur Specific [place] Urine Protein Urine Glucose (UA) Urine Ketones Urine Blood Urine Nitrite Urine Bilirubin Urine Urobilinogen Ur Leukocyte Esterase Urine WBC (Auto) Urine RBC (Auto) U Hyaline Cast (Auto) U Epithel Cells (Auto) Urine Bacteria (Auto) 12/06/23 12/06/23 12/06/23 13:32 12:34 12:33 WBC 3.13 L RBC 3.85 L Hgb 11.9 L Hct 35.9 L MCV 93.2 MCH 30.9 MCHC 33.1 RDW Std Deviation 44.5 RDW Coeff of Leah 13.1 Plt Count 79 L MPV 10.9 Immature Gran % (Auto) 0.3 Neut % (Auto) 53.7 Lymph % (Auto) 31.6 Haywood % (Auto) 9.3 Eos % (Auto) 4.5 Baso % (Auto) 0.6 Neut # (Auto) 1.68 Lymph # (Auto) 0.99 L Haywood # (Auto) 0.29 Eos # (Auto) 0.14 Baso # (Auto) 0.02 Immature Gran # (Auto) 0.01 PT INR Sodium 138 Potassium 4.6 Chloride 107 Carbon Dioxide 25 Anion Gap 6 BUN 51 H Creatinine 1.56 H Est Cr Clr Drug Dosing Not Reportable Est GFR ( Amer) 36.0 Est GFR (Non-Af Amer) 31.1 BUN/Creatinine Ratio 32.7 H Glucose 246 H POC Glucose Estimat Average Glucose Hemoglobin A1c Calcium 8.8 Magnesium 1.6 L Total Bilirubin 0.7 AST 27 ALT 14 Alkaline Phosphatase 85 Ammonia 140.0 H Troponin I High Sens 14.0 Total Protein 7.3 Albumin 3.0 L Globulin 4.3 H Albumin/Globulin Ratio 0.7 L Lipase 55 Urine Color Yellow Urine Appearance Cloudy A Urine pH 5.5 Ur Specific [place] 1.016 Urine Protein 1+ H Urine Glucose (UA) Negative Urine Ketones Negative Urine Blood Trace H Urine Nitrite Negative Urine Bilirubin Negative Urine Urobilinogen Negative Ur Leukocyte Esterase 2+ H Urine WBC (Auto) 21-50 H Urine RBC (Auto) 3-5 H U Hyaline Cast (Auto) 0-2 U Epithel Cells (Auto) 3-5 H Urine Bacteria (Auto) 4+ H Diagnostic Findings Chest X-Ray 12/06/23 12:07 SINGLE VIEW CHEST CLINICAL HISTORY: Atypical chest pain FINDINGS: An AP, portable, upright chest radiograph is compared to study dated 07/24/2023. The examination is degraded by portable technique and apical lordotic positioning. The heart is enlarged noting atherosclerotic calcification of the thoracic aorta. The pulmonary vasculature is noncongested. Chronic interstitial thickening is similar to previous. There is bibasilar scarring/atelectasis. The lungs and pleural spaces are otherwise clear. No pneumothorax is seen. The skeletal structures are osteopenic. The bony thorax is grossly intact. Cholecystectomy clips are seen in the right upper quadrant. IMPRESSION: Cardiomegaly with no acute cardiopulmonary abnormality identified. ACT 112: Negative or not required by law. Electronically signed by: Kenny Jung M.D. 12/06/2023 1:[address] 12/06/23 12:24 CT SCAN OF THE BRAIN WITHOUT IV CONTRAST CLINICAL HISTORY: Slurred speech. COMPARISON STUDY: CT of the brain dated 07/24/2023. TECHNIQUE: Unenhanced axial CT scan of the brain is performed from the vertex to the skull base. A dose lowering technique was utilized adhering to the principles of ALARA. CT DOSE: 551.8 mGy.cm FINDINGS: Brain parenchyma: There is age-related involutional change noting [id number] subcortical and periventricular microangiopathic disease. There is no hemorrhage, mass effect, or evidence of acute territorial ischemia by CT criteria. A 1.9 cm calcified meningioma along the right temporal convexity is unchanged. Stein-white matter differentiation is preserved. No extra-axial fluid collection is seen. Ventricles, sulci, cisterns: Prominent secondary to involutional change. Intracranial vasculature: There is atherosclerotic calcification of the cavernous carotid arteries. Calvarium: Unremarkable. Sinuses and mastoids: The visualized paranasal sinuses are clear. The mastoid air cells are well pneumatized. Orbits: The bony orbits are grossly intact. There are bilateral ocular lens implants. IMPRESSION: There is no hemorrhage, mass effect, or evidence of acute territorial ischemia by CT criteria. ACT 112: Negative or not required by law. Electronically signed by: Kenny Jung M.D. 12/06/2023 1:20 PM
--- NOTE | 2023-12-07 15:28 | Discharge Summary ---
Date of Service December 07, 2023 Admission HPI Per Admitting Provider Rosalind Dudley is an 78 year old female who presents to the ER with generalized fatigue, confusion, nausea and vomiting. She isn't clear about her duration of symptoms but reports feeling generally unwell starting around Monday (4 days ago). She reports this is similar to per prior presentations for hepatic encephalopathy or low potassium/magnesium with no clear diagnosis regarding her nausea and vomiting. She denies any abdominal pain, change in bowels, melena, hematochezia, hematemesis. No chest pain or reflux symptoms. She denies any current nausea or vomiting while in the emergency room and is already feeling improved. She reports taking lactulose as prescribed and does have diarrhea but cannot tell me how many bowel movements a day. No unilateral weakness, change in vision or hearing. She does note some slurred speech which is not unusual for her with hepatic encephalopathy. She denies any fever, chills, respiratory or urinary symptoms. Principal Diagnosis UTI hepatic encephalopathy Discharge Exam General: awake, alert, no acute distress Head: Normocephalic, atraumatic MMM ENT: PERRL, EOMI Neuro: alert and oriented, pleasant, interactive, normal speech; moves all extremities CV: RRR; S1/S2 normal; midsystolic aortic murmur present; clinically well perfused Lungs: no acute respiratory distress; symmetrical chest wall expansion; clear breath sounds across all lung neely; no wheezing GI: soft; nondistended; no ascites : no CVA tenderness Skin: no rashes, warm and dry Psych: Normal mood and affect Discharge Data Allergies Allergy/AdvReac Type Severity Reaction Status Date / Time No Known Allergies Allergy Verified 12/06/23 14:34 Consultations 12/06/23 14:34 ED Decision to Admit Stat Ordered Studies Chest X-Ray 12/06/23 12:07 FINDINGS: An AP, portable, upright chest radiograph is compared to study dated 07/24/2023. The examination is degraded by portable technique and apical lordotic positioning. The heart is enlarged noting atherosclerotic calcification of the thoracic aorta. The pulmonary vasculature is noncongested. Chronic interstitial thickening is similar to previous. There is bibasilar scarring/atelectasis. The lungs and pleural spaces are otherwise clear. No pneumothorax is seen. The skeletal structures are osteopenic. The bony thorax is grossly intact. Cholecystectomy clips are seen in the right upper quadrant. IMPRESSION: Cardiomegaly with no acute cardiopulmonary abnormality identified. Head CT 12/06/23 12:24 FINDINGS: Brain parenchyma: There is age-related involutional change noting [id number] subcortical and periventricular microangiopathic disease. There is no hemorrhage, mass effect, or evidence of acute territorial ischemia by CT criteria. A 1.9 cm calcified meningioma along the right temporal convexity is unchanged. Stein-white matter differentiation is preserved. No extra-axial fluid collection is seen. Ventricles, sulci, cisterns: Prominent secondary to involutional change. Intracranial vasculature: There is atherosclerotic calcification of the cavernous carotid arteries. Calvarium: Unremarkable. Sinuses and mastoids: The visualized paranasal sinuses are clear. The mastoid air cells are well pneumatized. Orbits: The bony orbits are grossly intact. There are bilateral ocular lens implants. IMPRESSION: There is no hemorrhage, mass effect, or evidence of acute territorial ischemia by CT criteria. Diabetes Follow up Diabetes Follow-up Needed for HgbA1c >9% Hospital Course (1) Hepatic encephalopathy: Similar presentation secondary to liver cirrhosis and UTI given urine culture growing gram negative bacilli - treat with abx. Sensitivities pending * Lactulose 45 g PO BID * Rifaximin 550 mg p.o. BID * CTX --> cefdinir (2) UTI (urinary tract infection): Likely precipitating acute encephalopathy. Treat with CTX --> cefdinir x5 days total. (3) Generalized weakness: Suspect secondary to hepatic encephalopathy * PT/OT evals (4) Nausea & vomiting: Currently resolved, monitor for recurrence (5) Hypomagnesemia: Resolved with magnesium supplement of 2 g mag sulfate IV, currently at 1.9 and within normal range (6) Hypertensive urgency: BP stabilized * Continue her usual medications with Lasix, spironolactone, propranolol (7) 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 to alcohol: 12 points MELD score; 6.0% estimated 3-month mortality. No prior ascites on CT in Jul 2022 * Continue usual diuretics with furosemide and spironolactone (8) Aortic stenosis: Moderate per echocardiogram in November 2022, no current symptoms to suggest need to repeat, follow-up outpatient (9) Hypothyroidism: TSH 2.137 in July 2023 * Continue levothyroxine (10) PAF (paroxysmal atrial fibrillation): * Currently normal sinus rhythm * Continue Eliquis for anticoagulation (11) Diabetes mellitus with peripheral vascular disease: HbA1c 9.4. Currently on 5 U Lantus QAM. SSI while inpatient. Suboptimal blood sugar control. Increase to 7 unit QAM on discharge. f/u with PCP Plan VTE Prophylaxis - Eliquis Diet - low-sodium, Disposition - observation to [facility] Total Time Total Time Spent Total Time Spent (In Minutes): See attending attestation Discharge Plan Discharge Items Patient Disposition: Home - Self-Care Reason For Visit: GENERALIZED FATIGUE, WEAKNESS, HEPATIC ENCEPHALOPA Discharge Diagnosis: hepatic encephalopathy, UTI Activity: Per Instructions section Non-emergency contact: Primary Care Provider Call non-emergency contact if: your temperature is above 101 Follow-up/Referrals: Jian Pierce, [Primary Care Provider] - 12/12/23 3:00 pm (Mitzi Daigle ) Diet: Heart Healthy Addtl Attending Provider Instructions: You were brought into the hospital for nausea, vomiting, and generally feeling unwell. You were found to have bacteria in your urine. We started your on antibiotics. We will continue these for 5 days total. Otherwise continue your home meds as prescribed. Pending Studies at Discharge: Yes Studies:: urine culture Stand-Alone Forms: My [facility] [employer], Smoking Cessation Medications and DC Order Prescriptions: New insulin glargine [Lantus U-100 Insulin] 100 unit/mL Solution 7 unit subcut QAM Qty: 20 0RF cefdinir 300 mg capsule 300 mg PO BID 5 Days Qty: 10 0RF Continued Eliquis 2.5 mg tablet 2.5 mg PO BID Qty: 60 11RF Hold Instructions: Resume on 04/17/23. HOLD until your PCP tells you it is safe to resume. levothyroxine 75 mcg tablet 75 mcg PO DAILY Qty: 90 3RF Xifaxan 550 mg tablet 550 mg PO BID Qty: 60 2RF atorvastatin 10 mg tablet 10 mg PO HS Qty: 90 3RF propranolol 10 mg tablet 10 mg PO TID 90 Days Qty: 270 3RF coenzyme Q10 200 mg capsule 200 mg PO DAILY magnesium chloride 64 mg tablet,delayed release (DR/EC) 128 mg PO TID Qty: 540 3RF insulin glargine [Lantus Solostar U-100 Insulin] 100 unit/mL (3 mL) insulin pen 5 unit subcut QAM Qty: 15 3RF (DME) Dexcom G7 Sensor Device See Rx Instructions .Route Qty: 1 6RF Rx Instructions: continuous glucose monitor (DME) Dexcom G7 Avionic Technician Misc See Rx Instructions .Route Qty: 1 0RF Rx Instructions: continuous use (DME) pen needle, diabetic [BD Ultra-Fine Short Pen Needle] 31 gauge x 5/16" needle See Rx Instructions .ROUTE .MEDSUPPLY Qty: 100 3RF Rx Instructions: Use once daily for Lantus injection cholecalciferol (vitamin D3) [Vitamin D3] 2,000 unit Capsule 2,000 unit PO QAM multivitamin Tablet 1 tab PO QAM vitamin E 400 unit capsule 400 unit PO QAM pantoprazole 40 mg Tablet,Delayed Release (Dr/Ec) 40 mg PO QAM Qty: 0 0RF lactulose 10 gram/15 mL (15 mL) Solution See Rx Instructions .ROUTE .COMPLEX Qty: 1440 0RF Rx Instructions: 45 grams in the morning and 30 grams in the evening; if you are not having at least 3 bowel movements/day please increase your evening dose to 45 grams. furosemide 40 mg tablet 0 mg PO BID Rx Instructions: Take 40mg by mouth in the morning and 20mg-40mg at noon time depending on weight gain. spironolactone 25 mg tablet 25 mg PO QAM Discharge Orders: Discharge Order (Routine); Ordered 12/07/23 Ordered By: Kenia Hodge/Other Patient Handouts: High Blood Sugar (Hyperglycemia), Managing Type 2 Diabetes Admission Data Admit Date/Time: 12/06/23 15:48 Attending Provider: Rain Lopez Admit Provider: Joni Hopkins Primary Care Provider: Jian Pierce Other Providers: Joni Hopkins Other Interventions: Discharge Summary Assessment (RN) Last Done: 12/07/23 15:31 Supervising Physician Co-Signing Physician Notes I personally examined the patient and verified almanzar points of history and exam, discussed case, and agree with decision making and plan documented by Dr. Solorzano. Evaluated patient at bedside with her niece Rosalind with whom she lives. Patient with much clinical improvement. Niece confirms this. Patient presented encephalopathic with elevated ammonia levels. We reviewed the importance of t itrating bowel movements with lactulose to 2 - 3/day. Rates have been stable. We also reviewed elevated A1c which is now 9.4%. Thankfully, patient was able to meet with wheat farmer today, will be discharged home on insulin. Patient did well ambulating with physical therapy. Patient appears comfortable, lungs clear b/l to auscultation, regular rate and rhythm, no acute distress. Vital signs are stable. Patient will schedule follow-up with PCP and maintain specialist appts as scheduled. Resident Activity Tracking Resident Involvement: Resident Care Provided Care Provided: Adult Hospital Medicine
--- OUTSIDE RECORDS SUMMARY | 2023-12-07 21:54 | External Medical Summary | Continuity of Care Document ---
Author Name Unknown Organization [address] Address [address] [place], [place] [id number] Care Team Providers Care Energy Control Officer Name Role Phone PierceJian Stallworth Primary Care Physician [phone] Encounter [facility] [id number] Date(s): 11/28/23 - 11/28/[address] [address] [phone] Encounter Diagnosis Cirrhosis of liver(Discharge Diagnosis) - 11/27/23 Discharge Disposition: Home or Self Care Attending Physician: JEFF Grier Kelli Jo Referring Physician: JEFF Grier Kelli Jo Allergies, Adverse Reactions, Alerts No Known Allergies Assessment and Plan Extracted from: Title:Office Visit Note Author:JEFF Grier Kell i Jo Date:11/28/23 Cirrhosis of liver - Continue q6m AFP, LFTs and Liver imaging. Due 04/2024 labs were ordered todayand markedto be faxed to [facility] physician [facility] for completion. She has had extensive serologic work-up in the past demonstrating no concerns for hepatitis A, B, C; alpha-1 antitrypsin deficiency; autoimmune liver disease; primary biliary cholangitis Most recent EGD for variceal surveillance was obtained 07/29/2022 demonstrating no evidence of esophageal varices She has had vaccination for both hepatitis A and B in the past. Current regimen includes Lasix 20 mgat night and 40 mg in the morning,propanolol 10 mg 3 times daily, and spironolactone 25 mg daily She is taking lactulose approximately 2 times daily as she has had elevated ammonia levels in the past with concerns for hepatic encephalopathy CRC screenin02/2018 colonoscopy demonstrating diverticulosis in the sigmoid colon, nonbleeding internal hemorrhoids without specimens collected Due to multiple comorbidities, would not recommend repeat colonoscopy at this time GI follow up in6 months, sooner if needed. I have spent38 minutes in evaluation, education and documentation of this pt in both face to face and non-face to face activities. Immunizations Given and Recorded Vaccine Date Status Refusal Reason SARS-CoV-2 mRNA (Pfizer 12+) bivalent 1 04/12/22 R ecorded SARS-CoV-2 (COVID-19) mRNA BNT-162b2 vax 2 12/07/21 Recorded SARS-CoV-2 (COVID-19) mRNA BNT-162b2 vax 3 04/26/21 Recorded SARS-CoV-2 (COVID-19) mRNA BNT-162b2 vax 4 04/05/21 Recorded hepatitis A adult vaccine 07/29/19 Given hepatitis A adult vaccine 02/07/19 Given hepatitis B adult vaccine 07/29/19 Given hepatitis B adult vaccine 03/28/19 Given hepatitis B adult vaccine 02/07/19 Given pneumococcal 13-valent vaccine 5 09/16/14 Recorded pneumococcal 23-valent vaccine 6 07/05/13 Recorded tetanus/diphtheria/pertuss, acel (Tdap) 7 03/10/08 Recorded 1Result Comment: 2022-12-12: Historical information-source unspecified 2Result Comment: 2022-12-12: Historical information-source unspecified 3Result Comment: 2022-12-12: Historical information-source unspecified 4Result Comment: 2022-12-12: Historical information-source unspecified 5Result Comment: 2022-12-12: Historical information-source unspecified 6Result Comment: 2022-12-12: Historical information-source unspecified 7Result Comment: 2022-12-12: Historical information-source unspecified Medications Co-Q10 200 mg oral capsule Start: 11/28/22 14:43:00 EDT, 200 mg =, PO, Daily Start Date: 11/28/22 Status: Ordered Eliquis 2.5 mg oral tablet TAKE 1 TABLET BY MOUTH TWICE DAILY Start Date: 02/27/23 Status: Ordered Enulose 10 g/15 mL oral and rectal liquid Start: 11/28/22 14:22:00 EDT, 30 mL, PO, bid Start Date: 11/28/22 Status: Ordered furosemide 20 mg oral tablet Start: 11/28/22 14:19:00 EDT, 1 tab, PO, qPM Start Date: 11/28/22 Status: Ordered furosemide 40 mg oral tablet Start: 02/27/23 13:47:00 EDT, 1 tab, PO, qAM Start Date: 02/27/23 Status: Ordered furosemide 40 mg oral tablet Start: 11/28/22 14:19:00 EDT, 1 tab, PO, Daily Start Date: 11/28/22 Status: Ordered levothyroxine 75 mcg (0.075 mg) oral tablet Start: 11/28/22 14:19:00 EDT, 1 tab, PO, Daily Start Date: 11/28/22 Status: Ordered Lipitor Start: 10/21/15 11:28:00 EDT, 10 mg =, PO, qhs Start Date: 10/21/15 Status: Ordered magnesium chloride Start: 11/28/22 14:44:00 EDT, See Instructions, 64 mg tablets: 2 tabs po TID Start Date: 11/28/22 Status: Ordered Multiple Vitamins oral capsule Start: 02/07/19 11:50:00 EDT, 1 cap, PO, Daily, Disp# 100 cap, Refills: 5, other Start Date: 02/07/19 Status: Ordered pantoprazole 40 mg oral delayed release tablet TAKE 1 TABLET BY MOUTH TWICE DAILY Start Date: 02/27/23 Status: Ordered propranolol 10 mg oral tablet Start: 11/28/22 14:20:00 EDT, 1 tab, PO, tid Start Date: 11/28/22 Status: Ordered Sodium Chloride 1 g oral tablet Start: 11/28/22 14:44:00 EDT, See Instructions, 1 tab po daily Start Date: 11/28/22 Status: Ordered spironolactone 25 mg oral tablet Start: 11/28/22 14:20:00 EDT, 1 tab, PO, Daily Start Date: 11/28/22 Status: Ordered Vitamin D3 2000 intl units oral capsule Start: 04/02/18 15:23:00 EDT, 1 cap, PO, Daily Start Date: 04/02/18 Status: Ordered vitamin E 400 intl units oral capsule Start: 02/07/19 11:51:00 EDT, 1 cap, PO, Daily, Disp# 100 cap, Refills: 5, other Start Date: 02/07/19 Status: Ordered Xifaxan 550 mg oral tablet Start: 11/28/23 10:08:00 EDT, 1 tab, PO, bid, Disp# 180 tab, Refills: 1, [facility]acy: [id number] Start Date: 11/28/23 Stop Date: 05/26/24 Status: Ordered Mental Status 11/28/23 Barriers to Learning one year None evide nt Mandatory Health Literacy Documentation Yes Health Literacy Communication Barriers N ever Primary Language Slovak Problem List Condition Confirmation Course Effective Dates Status H ealth Status Informant Meningioma Confirmed Active Cellulitis Confirmed Active Cervical spondylosis Confirmed Active Cirrhosis of liver Confirmed Active Confusion Confirmed Active Diabetes mellitus Confirmed Active Headache Confirmed Active Menopause Confirmed Active Mitral regurgitation Confirmed Active Obesity Confirmed Active Pituitary macroadenoma Confirmed Active Vision disturbance Confirmed Active Vitamin D deficiency Confirmed Active Diagnosis Diagnosis Type Effective Dates Health Status Cl inical Service Informant Cirrhosis of liver Discharge Diagnosis 11/27/23 Procedures Procedure Date Related Diagnosis Body Site Status CT of abdomen and pelvis 1 02/14/23 Completed Ultrasound 2 12/26/[address] angiography of chest with contrast 3 11/21/22 Completed Upper GI endoscopy 4 12/01/20 Comp leted Ultrasound 5 11/13/[address] angiography of chest with contrast 6 10/14/[address] of abdomen, pelvis and lo wer limb with contrast 7 10/14/19 Completed IVC - Insertion of inferior vena caval filter 10/14/19 Completed Upper GI endoscopy 8 10/14/19 Comp leted Upper GI endoscopy 9 08/20/18 Comp leted Upper GI endoscopy 10 03/13/18 Com pleted Procedure--Meckles scan 11 03/12/18 Completed Colonoscopy 12 03/10/18 Completed Colonoscopy 13 03/10/18 Completed Capsule endoscopy 14 02/13/18 Comp leted Enteroscopy--small bowel 15 01/12/18 Completed Upper GI endoscopy 16 12/28/17 Com pleted Colonoscopy 17 06/05/17 Completed section Complete d Gallbladder Completed Knee Completed Leg Completed 11) No acute process within the abdomen or pelvis on unenhanced exam. 2) Cirrhosis. Splenomegaly and varices formation. 3) No bowel obstruction. Sigmoid diverticulosis. No evidence for acute diverticulitis. No bowel wall thickening on unenhanced exam. 4) No change in endplate irregularity paravertebral soft tissue swelling at the T8-T9 level. This could be due to chronic degenerative changes. A discitis/osteomyelitis is not excluded although considered less likely 2Impression: Cirrhosis without hepatic mass identified. Trace perihepatic ascites Cholecystectomy 31) No acute pulmonary embolism 2) No focal infiltrate, pleural effusion or pneumothorax 3) Anasarca. Hepatic cirrhosis. Abdominal ascites. Cholecystectomy 4Impression: Z-line regular, 39 cm for the incisors. Normal stomach. Normal examined duodenum. No specimens collected. Repeat upper endoscopy in 2 years for surveillance. 5ultrasound of rt upper quadrant impression the liver is olrrhotio in morphology and heterogeneous in echotexture status post cholecystectomy. 61. CT angiogram confirms the presence of a segmental pulmonary embolus within a branch of the rightlower lobe pulmonary artery. 2. No additional pulmonary emboli are identified. 3. There is no airspace consolidation or pleural effusion. 71. There is a filling defect suggested within a branch of the right lower lobe pulmonary artery which is concerning for pulmonary embolus. Correlation with a CT angiogram of the chest is recommended for further assessment. 2. Cirrhotic liver morphology. 3. There are fluid-filled loops of distal small bowel. This is of indeterminate significance and could be seen in the setting of a mild nonspecific enteritis. Clinical correlation will be required. 4. Mild/moderate colonic diverticulosis without Ct evidence of acute diverticulitis. 5. The endometrium is thickened for age measuring up to 1.7 cm. This is not well assessed by CT. 8Z-line regular, 39 cm from the incisors. Normal stomach. Normal examined duodenum. No specimens collected. 9Z-line regular, 36 cm from the incisors. Normal stomach. Normal examined duodenum. No specimens collected. 10Grade I esophageal varices. Z-line regular, 38 cm from the incisors. Normal stomach. No specimens collected. 111) No evidence of meckel's diverticulum. 2) Moving focus of mild radiotracer uptake within the abdominal left upper quadrant suggests uptakewithin a small bowel loop. With history of GI bleed, this is concerning for area of acute small bowel hemorrhage with infectious or inflammatory enteritis also in the differential 12Diverticulosis in the sigmoid colon. Non-bleeding internal hemorrhoids. Foreign body in the cecum. The examined portion of the ileum was normal The examination was otherwise normal. No specimens collected. 13Impression: Diverticulosis in the sigmoid colon, non-bleeding internal hemorrhoids, foreign body in the cecum, the examined portion of the ileum was normal, the examination was otherwise normal, no specimens collected, [facility]. 14No additional sources of GI bleeding identified in the stomach/SB. Previously placed clips detectedat prior AVM sites. Follw Hb serially for stability. IV iron as needed. Consider repeat pust enteroscopy if rebleeding is suspected. 15Normal upper third of esophagus and middle third of esophagus. Grade I esophageal varices. Gastritis. Duodenal foreign body. The examined portion of the jejunum was normal. Jejunal polyp. clips were placed. No specimens collected. 16Normal esophagus and stomach. A few bleeding angiodysplastic lesions in the duodenum. Treated with bipolar cautery. A single non-bleeding angiodysplastic lesion in the jejunum. Treated with bipolar cautery. The examination was otherwise normal. No specimens collected. 17The entire examined colon is normal. Diverticulosis in the sigmoid colon. Non-bleeding internal hemorrhoids. No specimen collected. Repeat in 5 years. Vital Signs Most recent to oldest [Reference Range]: 1 Patient Weight 104.2 kg (11/28/23 10:01 AM) Heart Rate 64 bpm (11/28/23 10:01 AM) Respiratory Rate 18 br/min (11/28/23 10:01 AM) Blood Pressure 120/68mmHg (11/28/23 10:01 AM) Cuff Pulse Pressure 52 mmHg (11/28/23 10:01 AM) Social History Social History Type Response Smoking Status Former Smoker, quit > 1 yr Sex Female Gastroenterology Outpatient Note * JEFF Grier, Daly Renae: PERFORM Event Display: Gastroenterology Outpt Note Authored Date: Chief Complaint follow up. just check stomach. no concerns Accompanied by:niece History of Present Illness The patient is a pleasant [id number] presents today forfollow-up evaluation ofcirrhosis.[facility],and past medical historyreviewed. PMH: recent strep bacteremia and infective endocarditis, new-onset afib, HTN, stage 3 CKD, chronic DVT with IVC filter, aortic stenosis, HFpEF, MGUS, cirrhosis, DM2, HLD, ROSALES on CPAP, chronic back pain Abdominal surgical history: x3, laparoscopic cholecystectomy Prior records: 03/10/2018: Colonoscopy notes are reviewed and demonstrated diverticulosis in the sigmoid colon, nonbleeding internal hemorrhoids, there was a foreign body in the cecum, eating portion of ileum was normal, exam otherwise normal. There were no specimens collected. 08/21/2018: GI office visit notes reviewed from Dr. Garcia. New patient to the clinic with new diagnosis of cirrhosis. Patient had been admitted to [facility] for evaluation of GI bleeding. She had an extended small bowel exam was found to have some lesions in the jejunum she alsohad some esophageal varices which were banded. She did have an ultrasound while inpatient demonstr ating nodular liver consistent with cirrhosis. Her test were within normal limits and no symptomsat that time. Multiple tests including serologic test for hepatitis A, B, C; alpha-1 antitrypsin deficiency; autoimmune liver disease; primary biliary cholangitis; varices for which were negative. She does have a history of metabolic syndrome. Repeat EGD 08/20/2018 demonstrated no evidence of esophageal varices. 10/14/2019: EGD was obtained which demonstrated a regular Z-line 39 cm from the incisors; normal stomach; normal examined duodenum; specimens were collected. 11/11/2019: GI visit notes reviewed with Dr. Garcia for ongoing care for cirrhosis. Patient cirrhosis stable compensated with h/o esophageal varices that have been obliterated. Plan for follow-up outpatient is yearly screening for liver cancer. Continue vitamin E 400 units. Has completed vaccination series for hepatitis A and B. 10/28/2020 GI OV: On exam/interview today, the patient reports she is doing well today. She has not had any difficulty since her last office visit. Denies any nausea or vomiting. Denies normalpain. She does note some intermittent generalized body aches which is normal for her. She states she has gained about 21 pounds last for 5 months. She reports thatweight has any demonstrated.She does not noteincreased abdominal girth. She has nottaken the colon estimation she has had previous difficulty with yearly influenza vaccinations. She has no complaints today. 12/01/2020: EGD notes are reviewed performed for follow-up of esophageal varices demonstrated irregular Z-line found 39 cm from the incisors. There were no varices. Examined stomach was normal. Examined duodenum was normal. Recommend repeat EGD in 2 years for surveillance. 07/29/2022: EGD notes are reviewed performed due to history of hematochezia demonstrated normal examined esophagus, normal examined stomach, duodenal bulb and second portion of the duodenum were normal. No evidence of varices, ulcers, blood 08/12/2022: Abdomen and pelvis CT without contrast was obtained due to worsening abdominal distention, history of cirrhosis which demonstrated 1. Mildly dilated gas and fluid-filled loops of large andsmall bowel are seen throughout the abdomen. No clear transition point to suggest obstruction. Therefore, this favors an ileus. 2. Cirrhotic liver with a small amount of ascites. 3. Moderate body wall edema. 4. A few prominent upper abdominal lymph nodes remain stable. This may related to the patient's underlying cirrhosis. 5. Small right and trace left pleural effusions 11/21/2022 - 11/27/2022: Inpatient admission notes and [facility] reviewed for acute on chronic heart failure 12/05/2022: Hemoglobin 10.8, hematocrit 34.9, chloride 111, BUN 60, creatinine 1.37, glucose 116, LFTs normal, BN P747, albumin 2.6, SPEP, UPEP obtained. 12/06/2022: Reviewed heart failure clinic notes from [facility] physician group. Patient with history of paroxysmal atrial fibrillation currently not on anticoagulation due to recurrent GI bleed which was very serious. Recommending renally dose anticoagulation once cleared by GI. Diuretic changes due to acute on chronic diastolic heart failure, cor pulmonale. 12/12/2022 GI OV:[facility] of [facility]. She is accompanied by her granddaughter, Tuyet. She lives with her son Kiko who may alsoaccompany her to appointments in the future. She is no longer able to drive. Denies abdominal pain. Having 3-5 bowel movements daily. Using the lactulose twice daily. She does have infrequent intermittent confusionper the granddaughter. She follows with nephrology due to advanced kidney disease. She denies any complaints of melena or hematocheziawith bowel movements. She is unable to wear lower extremitycompression stockings that she is unable to get them on her legs but she does haveserousseepage noted from lower extremities as well aswound covered with a bandage. Sheis alert and oriented in the clinic today. 05/30/2023 OV ([place]): Patient returns today for routine follow-up 6. Her medical management is currentlycompleted bycardiology andnephrology. She reports compliance with her medicationsand states that she is doing well. She denies abdominal pain, nausea, vomiting, heartburn. She presents today with her niece who she lives with,she states that the patient has had no bouts of confusion and has been doing wellat home. Denies any recent falls. Does exercise regularly. Unfortunately does report some midline low back painwith a history of back surgery in the past. Patient continues on her lactulose and Xifaxan twice dailyand has 3-8 bowel movements per day that are Arnold type or VII. 07/2023 CT Abd/Pel: FINDINGS: No renal, ureteral or bladder calculi are present. There is no hydronephrosis or hydroureter. Bladder is moderately distended. Evaluation of the remainder of the abdomen and pelvis is suboptimal on this unenhanced exam. The liver is cirrhotic. Sensitivity for detection of hepatic lesions is diminished on this unenhanced exam but none are identified. There is no significant biliary ductal dilatation status post cholecystectomy. Upper abdominal collaterals are again noted. Spleen, adrenal glands and pancreas are unremarkable. The appendix is normal. Moderate amount of stool within the colon and rectum is present. There is sigmoid diverticulosis without evidence for acute diverticulitis. No lymphadenopathy is present. IVC filter is in place. Postoperative findings within the spine are present. There are no acute fractures within the visualized skeletal structures. Disc space narrowing with endplate irregularity centered at the T8-T9 level with paravertebral stranding is similar to prior CT. This is likely degenerative. IMPRESSION: 1. Sigmoid diverticulosis. No evidence for acute diverticulitis. No bowel obstruction. 2. Moderate amount of stool within the colon and rectum. 3. No urinary calculi or hydronephrosis. Moderately distended bladder. 11/06- labs: WBC 3.66, H&H 12.0/36.2, PLT 107, BUNs/CR 45/1.86, glucose 295, magnesium 1.7, ferritin 38.6, T. bili 0.7, AST 28, ALT 14, alk phos 93, LDH 176, AFP 3.5, vitamin D 44.5, PTH 52.1 11/27/2023 OV ([place]): Patient returns todayfor routine 6-month followup. She states that she has not been in the emergency roomhospital since her last appointment and is very happy about that. She does state that she was recently given a Dexcom as her sugars have been out of control. She has an appointment next week with the diabetic clinicto manage this more closely. She is currently on 5 units of long-acting insulin. She states aside fromsome dietarycausesshe has had no nausea, vomiting, abdominal pain. She most often will have a Arnold type V bowel movement anywhere from 3-4 times daily. On occasion she will see a Arnold type VII. She denies pruritus, i cterus or jaundice. She does note easy bruising with her thin skin. She often gets bruised and scratched by her pets at home as well. She monitors her weight and blood pressure daily and increase his Lasix according toher heart failure clinic guidelines. Liverhistory Diagnosis:Liver cirrhosis, likely secondary to metabolic syndrome FibroTest:12/25/2018F3F4, A0 Liver biopsy: n/a Paracentesis: n/a Diuretics:Spironolactone 25 mg daily,furosemide 20 mgevery afternoon, furosemide 40 mg every morning Other livermedications: lactulose,propranolol 10 mg p.o. 3 times daily, Alcohol use:Denies Vaccinations:Hepatitis a and Bvaccination series completed HCC surveillance EGD:Most recent 07/29/2022 AFP:10/2023 3.5 Liver US:CT abdomen pelvis 07/2023 Social history: The patient is a lifetime non-smoker. She denies any use of alcohol or recreational drugs including marijuana. She isretired from [employer] where she worked in [employer]. She is a . Her 2014due to cancer. She lives with blossom and has multiple grea t-grandchildren. No further complaints or concerns today. Physical Exam Vitals & Measurements HR:64(Monitored) RR:18 BP:120/68 SpO2:93% WT:104.200kg(Dosing) WT:104.2kg General:Alert and oriented, No acute distress, appears stated age HENT:Normocephalic, normal hearing Respiratory: Respiration are non-labored, pt speaking in complete sentences,and no evidence of respiratory distress is noted Integumentary:Exposed skin viewable is dry and intact Psychiatric:Cooperative, appropriate mood & affect, Normal judgement Assessment/Plan Cirrhosis of liver - Continue q6m AFP, LFTs and Liver imaging. Due 04/2024 labs were ordered todayand markedto be faxed to [facility] for completion. She has had extensive serologic work-up in the past demonstrating no concerns for hepatitis A, B, C; alpha-1 antitrypsin deficiency; autoimmune liver disease; primary biliary cholangitis Most recent EGD for variceal surveillance was obtained 07/29/2022 demonstrating no evidence of esophageal varices She has had vaccination for both hepatitis A and B in the past. Current regimen includes Lasix 20 mgat night and 40 mg in the morning,propanolol 10 mg 3 times daily, and spironolactone 25 mg daily She is taking lactulose approximately 2 times daily as she has had elevated ammonia levels in the past with concerns for hepatic encephalopathy CRC screenin02/2018 colonoscopy demonstrating diverticulosis in the sigmoid colon, nonbleeding internal hemorrhoids without specimens collected Due to multiple comorbidities, would not recommend repeat colonoscopy at this time GI follow up in6 months, sooner if needed. I have spent38 minutes in evaluation, education and documentation of this pt in both face to face and non-face to face activities. Problem List/Past Medical History Ongoing Cellulitis Cervical spondylosis Cirrhosis of liver Confusion Diabetes mellitus Headache Meningioma Menopause Mitral regurgitation Obesity Pituitary macroadenoma Vision disturbance Vitamin D deficiency Procedure/Surgical History CT of abdomen and pelvis| Service Date: 02/14/2023Ultrasound| Service Date: 3CT angiography of chest with contrast| Service Date: 11/21/2022Upper GI endoscopy| Service Date: 12/01/2020Ultrasound| Service Date: 11/13/2020IVC - Insertion of inferior vena caval filter| Service Date: 10/14/2019Upper GI endoscopy| Service Date: 10/14/2019CT of abdomen, pelvis and lowerlimb with contrast| Service Date: 10/14/2019CT angiography of chest with contrast| Service Date:10/14/2019Upper GI endoscopy| Service Date: 08/20/2018Upper GI endoscopy| Service Date: 03/13/2018Procedure--Meckles scan| Service Date: 03/12/2018Colonoscopy| Service Date: 03/10/2018C olonoscopy| Service Date: 03/10/2018Capsule endoscopy| Service Date: 02/13/2018Enteroscopy--small bowel| Service Date: 01/12/2018Upper GI endoscopy| Service Date: 12/28/2017Colonoscopy| Service Date: 06/05/2017KneeCesarean sectionLegGallbladder Medications apixaban(Eliquis 2.5 mg oral tablet) atorvastatin(Lipitor), 10 mg, PO, qhs cholecalciferol(Vitamin D3 2000 intl units oral capsule), 2000 Int_Unit= 1 cap, PO, Daily furosemide(furosemide 40 mg oral tablet), 40 mg= 1 tab, PO, qAM furosemide(furosemide 40 mg oral tablet), 40 mg= 1 tab, PO, Daily furosemide(furosemide 20 mg oral tablet), 20 mg= 1 tab, PO, qPM lactulose(Enulose 10 g/15 mL oral and rectal liquid), 20 g= 30 mL, PO, bid levothyroxine(levothyroxine 75 mcg (0.075 mg) oral tablet), 75 mcg= 1 tab, PO, Daily magnesium chloride, See Instructions multivitamin(Multiple Vitamins oral capsule), 1 cap, PO, Daily, 5 refills pantoprazole(pantoprazole 40 mg oral delayed release tablet) propranolol(propranolol 10 mg oral tablet), 10 mg= 1 tab, PO, tid rifAXIMin(Xifaxan 550 mg oral tablet), 550 mg= 1 tab, PO, bid, 1 refills sodium chloride(Sodium Chloride 1 g oral tablet), See Instructions spironolactone(spironolactone 25 mg oral tablet), 25 mg= 1 tab, PO, Daily ubiquinone(Co-Q10 200 mg oral capsule), 200 mg, PO, Daily vitamin E(vitamin E 400 intl units oral capsule), 400 Int_Unit= 1 cap, PO, Daily, 5 refills Allergies NKA Social History Smoking Status Former Smoker, quit > 1 yr Family History Family history is negative Immunizations Vaccine Date Status SARS-CoV-2 mRNA (Pfizer 12+) bivalent 04/12/2022 Recorded Comments : 2022-12-12: Historical information-source unspecified SARS-CoV-2 (COVID-19) mRNA BNT-162b2 vax 12/07/2021 Recorded Comments : 2022-12-12: Historical information-source unspecified SARS-CoV-2 (COVID-19) mRNA BNT-162b2 vax 04/26/2021 Recorded Comments : 2022-12-12: Historical information-source unspecified SARS-CoV-2 (COVID-19) mRNA BNT-162b2 vax 04/05/2021 Recorded Comments : 2022-12-12: Historical information-source unspecified hepatitis A adult vaccine 07/29/2019 Given hepatitis B adult vaccine 07/29/2019 Given hepatitis B adult vaccine 03/28/2019 Given hepatitis A adult vaccine 02/07/2019 Given hepatitis B adult vaccine 02/07/2019 Given pneumococcal 13-valent vaccine 09/16/2014 Recorded Comments : 2022-12-12: Historical information-source unspecified pneumococcal 23-valent vaccine 07/05/2013 Recorded Comments : 2022-12-12: Historical information-source unspecified tetanus/diphtheria/pertuss, acel (Tdap) 03/10/2008 Recorded Comments : 2022-12-12: Historical information-source unspecified Recommendations Health Maintenance Pending(in the next year) OverDue Adult Influenza Vaccine due01/20/23and every 1year Due Adult COVID-19 Vaccination due11/28/23Unknown Frequency Adult Social Determinants of Health Screening due11/28/23Unknown Frequency Adult Tdap/Td Vaccine due11/28/23Unknown Frequency Diabetes Management A1c due11/28/23Unknown Frequency Diabetic Eye Exam due11/28/23Unknown Frequency Medicare Annual Wellness Visit due11/28/23and every 1year Osteoporosis Screening due11/28/23One-time only Shingles Vaccine due11/28/23One-time only Satisfied(in the past 1 year) Satisfied Body Mass Index on02/27/23.Satisfied by IGLESIA Rausch Erin Electronic Signature on File CC: Jian Pierce DO [facility] [address] [place] [facility] [place] [address] * CC: ANDREW Marcelo [address] [place] [address] Electronically Reviewed/Signed by: Daly Grier PA-C Author Signature Dt/Tm:11/28/2023 10:39 AM Division of Gastroenterology Electronically Reviewed/Signed by: Fawad Gibson M.D. Cosigner Signature Dt/Tm: 11/29/2023 07:25 AM Division of Gastroenterology JHONATAN Patient Care team information Care Team Personnel Name: ANDREW Roach Tara Position: Nurse Pract - Family Med Member Role: Lifetime Relationship Address: Address: [address] [place] [address], [place] [address] Name: DO Pierce William Price Position: Referring Member Role: Primary Care Provider Address: Address: [address] [place] [address] Care Team Related Persons Name: JEFFREY WARD Address: home [address] [place] [address]"
== END 2023-12-07 16:16 | disposition home or self-care (01) ==
LOC: 3N 11:59 → ED 11:59 → SUATTDRO 15:48 → 3N 16:41

== ENCOUNTER 2024-02-15 02:01 | Inpatient (IN) ==
--- NOTE | 2024-02-15 02:22 | Emergency Department Note ---
Impression & Plan Weakness, SOB (shortness of breath), Wheezing, Pneumonia, Rhinovirus infection, Hypomagnesemia, Acute hyponatremia ED Provider Note NAME: JEFFREY TOVAR AGE: 78 SEX: F : 1945 ARRIVES VIA: Ambulance INFORMANT: [Patient][ems] ED PROVIDER(S): [Kenny Medina MD] CHIEF COMPLAINT: Cough HISTORY OF PRESENT ILLNESS: The patient is an 78-year-old female who has been ill for about 2 weeks. Apparently, she has had some sick exposures, 1 person required a hospital stay. The patient states that she has been coughing, she feels short of breath with exertion. There has been no fever. No vomiting or diarrhea. The patient did have a physician outpatient evaluation 2 to 3 days ago. She was diagnosed with sinusitis and placed on cefdinir daily for 10 days. She has had no relief with the cefdinir. Tonight, the patient was coughing a lot and was so tired that she could not stand. She felt quite weak. The ambulance was called. In route, patient was given 125 milligrams of IV Solu-Medrol, she was given 1 DuoNeb. PMHx/PSHx/Social Hx: See Below PHYSICAL EXAM: GENERAL: Patient is in no acute distress. HEENT: No acute trauma, normocephalic atraumatic, mucous membranes moist, no nasal congestion. NECK: No stridor, no adenopathy, no meningismus, trachea is midline. LUNGS: Diminished breath sounds bilaterally with wheezing bilaterally. Moist cough noted. No obvious respiratory distress. No crackles. HEART: 2/6 systolic murmur heard best at the left sternal border, regular rate and rhythm. ABDOMEN: Soft, nontender, no peritonitis. EXTREMITIES: No cyanosis, full range of motion of all the joints without pain or difficulty. There is a skin tear to the left anterior mid tib-fib--no findings of cellulitis. NEUROLOGIC: Oriented x 3, no acute motor or sensory deficits, no focal weakness. SKIN: No jaundice, no diaphoresis. DIFFERENTIAL DIAGNOSIS: Bronchitis or pneumonia, CHF, viral illness, anemia, electrolyte imbalance, dehydration, cardiac ischemia, among others. EMERGENCY DEPARTMENT PROCEDURES: MEDICAL DECISION MAKING: There is no leukocytosis or concerning anemia. There is a normal platelet count. Lactic acid level is not elevated making severe sepsis unlikely. BNP was slightly elevated, the patient does have a history of an elevation to the BNP, today's value is lower than some previous readings. ECG showed a normal sinus rhythm, there was a right bundle branch block, no obvious acute ischemia. Cardiac enzyme testing x 1 is slightly elevated, this troponin elevation could be secondary to cardiac injury or just mismatch given her dyspnea. Respiratory bio fire was positive for rhinovirus. Chest x-ray does show patchy bilateral infiltrates worse on the right, the x-ray findings are consistent with pneumonia. There was renal insufficiency seen, this is baseline looking back at previous testing. Sodium somewhat low at 131, magnesium low at 1.5. No concerning liver enzyme elevation. On exam, the patient was wheezing and had a wet cough. She was not hypoxic or hypotensive. The patient had received a DuoNeb in route, she had received IV Solu-Medrol 125 mg in route. In the ED, the patient was given a second DuoNeb, she was given IV Zithromax and IV cefepime. She received a 500 cc saline bolus for hydration purposes. She received a gram of IV magnesium. The patient is in need of a hospital stay. She likely started with a rhinovirus infection, she then developed pneumonia. I did speak with the patient and case management, the on-call hospitalist was consulted. Prior/Outside records/notes reviewed: Today's EMS notes describing her presentation and transport to this hospital. ECG per my interpretation: Indication was shortness of breath. The ECG shows a normal sinus rhythm with a rate of 76. There is a right bundle branch block. There is some LVH present. There is no acute ST elevation, no PVCs. The QTc is 501. Continuous Cardiac Monitoring per my interpretation: An order was placed for continuous cardiac monitoring. The monitor shows a rate of 77 with normal sinus rhythm. Imaging/x-ray results per my interpretation: Chest x-ray shows patchy bilateral infiltrates, worse on the right. There was no pneumothorax. Chronic Medical/Social conditions affecting care: Advanced age. Care/Management discussed with: Case management, the on-call hospitalist. Level of care consideration(s): After review of the information above and other included data: --I believe the patient requires escalation of care to admission DISPOSITION: Admission Past Med/Surg History Problem List (Updated 02/15/24 @ 04:18 by Kenny Medina MD) Acute hyponatremia (Acute) Hypomagnesemia (Acute) Rhinovirus infection (Acute) Pneumonia (Acute) Wheezing (Acute) SOB (shortness of breath) (Acute) Weakness (Acute) Generalized weakness HTN (hypertension) (Acute) Leukopenia (Acute) Anemia (Acute) Hypomagnesemia (Acute) Acute hepatic encephalopathy (Acute) Fatigue Pancytopenia LLQ abdominal pain Inflammatory arthritis Hypertension (Acute) Slurred speech (Acute) Hyperammonemia (Acute) Altered mental status (Acute) Aortic stenosis Chronic right-sided congestive heart failure History of DVT (deep vein thrombosis) Presence of IVC filter Right leg pain Weakness (Acute) Anticoagulant long-term use (Acute) Hypothyroidism UTI (urinary tract infection) Chronic diastolic heart failure Stage 3b chronic kidney disease Hyperammonemia Cor pulmonale Chronic kidney disease, stage III (moderate) CHF (congestive heart failure) (Acute) Morbid obesity PAF (paroxysmal atrial fibrillation) 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) Diastolic dysfunction Atrial fibrillation with rapid ventricular response Chronic back pain Anemia (Acute) Rectal bleeding Abnormal mammogram of left breast Left breast lump Hematuria Encounter for examination following treatment at hospital Fall (Acute) Diarrhea Lower leg edema Proteinuria Right knee pain Lumbar stenosis with neurogenic claudication MGUS (monoclonal gammopathy of unknown significance) (Chronic ~02/2015) Meningioma (Acute) Vitamin D deficiency (Acute) Pituitary macroadenoma (Acute) Mitral regurgitation (Acute) Microalbuminuria (Acute) Hypercholesterolemia (Acute) Diabetes mellitus with peripheral vascular disease (Acute) Cervical spondylosis (Acute) Thickened endometrium Obesity, diabetes, and hypertension syndrome Bilateral lower extremity edema (Acute) Age-related physical debility Medical History Infective endocarditis Streptococcal bacteremia ROSALES (obstructive sleep apnea) Rectal bleeding Hypomagnesemia Nausea vomiting and diarrhea Dizziness Acute hyperkalemia Encephalopathy acute Nausea & vomiting Rhinovirus Acute on chronic diastolic heart failure Volume overload Lactate blood increase Vomiting and diarrhea Wheezing Weakness DVT (deep venous thrombosis) Elevated troponin EMY (acute kidney injury) Thrombocytopenia Chronic deep vein thrombosis (DVT) Fever Pulmonary embolism 2019 > no known cause > Filter to right groin Diverticular hemorrhage resolved GI bleed none at present Esophageal varices determined by endoscopy Monoclonal gammopathy Osteoarthritis GERD (gastroesophageal reflux disease) Migraine Vertigo Surgical History Status post lumbar surgery History of laparoscopic cholecystectomy History of section History of bilateral breast reduction surgery History of dilatation and curettage History of carpal tunnel release of both wrists History of total left knee replacement (TKR) History of total right knee replacement (TKR) History of lumbar spinal fusion History of colonoscopy History of esophagogastroduodenoscopy (EGD) History of tooth extraction History of tonsillectomy History of bilateral cataract extraction Family History Mother Family history of diabetes mellitus Brother Family history of diabetes mellitus 3 brothers Colorectal cancer Myocardial infarction x 2 Father Myocardial infarction Denies family history of Ovarian cancer Prostate cancer Breast cancer Social History Smoking Status: Never smoker Tobacco Type: Cigarettes Age Started Using Tobacco: 15; Age Quit Using Tobacco: 21; Cigarettes Per Day: stopped 55 years ago; Second Hand Exposure: No; Do You Dip or Chew Tobacco: No; Hx Alcohol Use: No Hx Substance Use: No Preferred Language: Marshallese Communication Ability: Effective Visual Impairment: Limited Hearing Ability: Normal Weight Shifter Required: No Beliefs That Will Affect Care: None marital status: / Current Living Situation: Family Current Living Situation Comment: Lives with neice current occupational status: retired How many Children do You have: 3 Feels Safe at Home: Yes Childhood Exposure to Second-Hand Smoke: Yes Diet: regular caffeine: Yes (tea) during the past year weight has: remained stable Dental Care, Regularly: No Physical Activity Frequency: Does not Exercise Seatbelt Use: always Sunscreen Use: No Do you think of yourself as: straight/heterosexual Gender Identity: Female Assistive Devices: Walker and Other Allergies Allergies Allergy/AdvReac Type Severity Reaction Status Date / Time No Known Allergies Allergy Verified 02/15/24 02:39 Home Meds Home Medications Medication Instructions Recorded Confirmed cholecalciferol (vitamin D3) 50 2,000 unit PO QAM 07/01/18 02/15/24 mcg (2,000 unit) capsule (Vitamin D3) multivitamin 1 tab PO QAM 10/14/19 02/15/24 vitamin E 268 mg (400 unit) capsule 400 unit PO QAM 08/14/20 02/15/24 coenzyme Q10 200 mg capsule 200 mg PO DAILY 04/11/22 07/25/24 spironolactone 25 mg tablet 25 mg PO QAM 12/06/23 02/15/24 insulin glargine 100 unit/mL 7 unit subcut QAM 12/26/23 02/15/24 subcutaneous solution (Lantus U-100 Insulin) furosemide 40 mg tablet 40 mg PO BID 01/18/24 02/15/24 insulin aspart U-100 100 unit/mL 5 unit subcut BIDM 02/15/24 02/15/24 (3 mL) subcutaneous pen (Novolog FlexPen U-100 Insulin aspart) Previous Rx's Medication Instructions Recorded magnesium chloride 64 mg 128 mg (2 x 64 mg) PO TID #540 tabs 09/08/22 (magnesium chloride) tablet,delayed release propranolol 10 mg tablet 10 mg PO TID 90 days #270 tabs 01/23/23 apixaban 2.5 mg tablet (Eliquis) 2.5 mg PO BID #60 tabs 02/13/23 levothyroxine 75 mcg tablet 75 mcg PO DAILY #90 tabs 03/01/23 pantoprazole 40 mg tablet,delayed 40 mg PO QAM #0 tabs 06/21/23 release rifaximin 550 mg tablet (Xifaxan) 550 mg PO BID #60 tabs 07/14/23 lactulose 10 gram/15 mL (15 mL) See Rx Instructions .Route 07/31/23 oral solution .COMPLEX #1,440 mL atorvastatin 10 mg tablet 10 mg PO HS #90 tabs 10/27/23 blood-glucose meter,continuous #1 ea 11/15/23 (Dexcom G7 Buttermaker Helper) blood-glucose sensor (Dexcom G7 #1 ea 11/15/23 Sensor device) pen needle, diabetic 31 gauge x #100 ea 11/15/23 5/16" (BD Ultra-Fine Short Pen Needle) cefdinir 300 mg capsule 300 mg PO DAILY #10 caps 02/12/24 Results & Data (ED) Vital Signs Vital Signs - 24 hr 02/15/24 02:07 02/15/24 02:14 02/15/24 02:14 Temperature 36.8 C Temperature Source Oral Pulse Rate 79 77 Pulse Rate [Apical] 77 Respiratory Rate 18 19 23 Respiratory Effort / Characteristics Non-Labored Spontaneous Respiratory Depth Normal Blood Pressure 163/82 H Blood Pressure [Right Arm] 163/82 H Blood Pressure Mean 109 Blood Pressure Mean [Right Arm] 109 Pulse Oximetry 94 94 94 Oxygen Delivery Method Room Air Room Air Room Air Sepsis Recent Fever Within 48 Hours No Sepsis New/Unexplained Change in Mental Status N/A Sepsis Action Taken by Nursing No Action Required 02/15/24 02:17 Temperature Temperature Source Pulse Rate 77 Pulse Rate [Apical] Respiratory Rate Respiratory Effort / Characteristics Respiratory Depth Blood Pressure Blood Pressure [Right Arm] Blood Pressure Mean Blood Pressure Mean [Right Arm] Pulse Oximetry Oxygen Delivery Method Sepsis Recent Fever Within 48 Hours Sepsis New/Unexplained Change in Mental Status Sepsis Action Taken by Long-Term Medications Current Medication List: was personally reviewed by me Laboratory Data Attestation: I reviewed the patient's lab results. 02/15/24 02:15 02/15/24 03:41 Lab Results 02/15/24 02/15/24 Range/Units 02:15 03:41 WBC 9.53 (4.8-10.8) K/ul RBC 3.93 L (4.20-5.40) M/uL Hgb 12.0 (12.0-16.0) g/dl Hct 36.3 L (37.0-47.0) % MCV 92.4 (80.0-100.0) fL MCH 30.5 (25.0-34.0) pg MCHC 33.1 (32.0-36.0) g/dL RDW Std Deviation 45.7 (36.4-46.3) fL RDW Coeff of Leah 13.4 (11.5-14.5) % Plt Count 163 (130-400) K/uL MPV 10.6 (9.4-12.4) fL Immature Gran % (Auto) 1.4 % Neut % (Auto) 65.4 % Lymph % (Auto) 19.8 % [place] % (Auto) 12.1 % Eos % (Auto) 1.0 % Baso % (Auto) 0.3 % Neut # (Auto) 6.23 (1.40-6.50) K/uL Lymph # (Auto) 1.89 (1.20-3.40) K/uL [place] # (Auto) 1.15 H (0.11-0.59) K/uL Eos # (Auto) 0.10 (0.00-0.50) K/uL Baso # (Auto) 0.03 (0.00-0.20) K/uL Immature Gran # (Auto) 0.13 (0.01-0.20) K/uL PT Cancelled INR Cancelled APTT Cancelled PTT Ratio Cancelled Sodium Cancelled 131 L Potassium Cancelled 4.6 Chloride Cancelled 102 Carbon Dioxide Cancelled 22 Anion Gap Cancelled 7 BUN Cancelled 47 H Creatinine Cancelled 1.97 H Est Cr Clr Drug Dosing Cancelled 25.2 Est GFR ( Amer) Cancelled 27.1 Est GFR (Non-Af Amer) Cancelled 23.4 BUN/Creatinine Ratio Cancelled 23.9 H Glucose Cancelled 193 H Lactate 1.2 (0.4-2.0) mmol/L Calcium Cancelled 9.3 Magnesium Cancelled 1.5 L Total Bilirubin Cancelled 0.8 AST Cancelled 39 ALT Cancelled 19 Alkaline Phosphatase Cancelled 134 H Troponin I High Sens 28.4 H (0-14) pg/ml B-Natriuretic Peptide 398 H (0-100) pg/ml Total Protein Cancelled 7.5 Albumin Cancelled 2.9 L Globulin Cancelled 4.6 H Albumin/Globulin Ratio Cancelled 0.6 L Adenovirus (PCR) Not Detected (NotDetected) B. pertussis DNA (PCR) Not Detected (NotDetected) B.parapertussis DNA PCR Not Detected (NotDetected) C. pneumoniae DNA (PCR) Not Detected (NotDetected) Coronavirus OC43 (PCR) Not Detected (NotDetected) Coronavirus HKU1 (PCR) Not Detected (NotDetected) Coronavirus 229E (PCR) Not Detected (NotDetected) SARS-CoV-2 (PCR) Not Detected (NotDetected) Coronavirus NL63 (PCR) Not Detected (NotDetected) Human Metapneumovir PCR Not Detected (NotDetected) Influenza Type A (PCR) Not Detected (NotDetected) Influenza Type B (PCR) Not Detected (NotDetected) M. pneumoniae (PCR) Not Detected (NotDetected) Parainfluenza 1 (PCR) Not Detected (NotDetected) Parainfluenza 2 (PCR) Not Detected (NotDetected) Parainfluenza 3 (PCR) Not Detected (NotDetected) Parainfluenza 4 (PCR) Not Detected (NotDetected) RSV (PCR) Not Detected (NotDetected) Entero/Rhino (PCR) DETECTED A (NotDetected) Administered Medications Azithromycin 500 mg/ Dextrose 255 mls @ 125 mls/hr IV NOW ONE Stop: 02/15/24 04:50 Last Admin: 02/15/24 03:04 Dose: 125 mls/hr Documented By: DLBigg Discontinued Medications Albuterol (Albut/Ipratrop 3mg/0.5mg Neb 3 Ml Vial) 3 ml NEB NOW STA; Protocol Stop: 02/15/24 02:14 Last Admin: 02/15/24 02:28 Dose: 3 ml Documented By: DENA Cefepime HCl (Maxipime) 2,000 mg in 20 mls @ 5 mls/min IV NOW STA; Protocol Stop: 02/15/24 02:16 Last Admin: 02/15/24 02:29 Dose: 5 mls/min Documented By: DENA Discharge Plan Visit Data Chief Complaint: Cough Stated Complaint: COUGH, CONGESTION ED Provider: Kenny Medina Discharge Problem: Weakness, SOB (shortness of breath), Wheezing, Pneumonia, Rhinovirus infection, Hypomagnesemia, Acute hyponatremia Patient Disposition: Admitted As Inpatient Condition: Fair Forms Stand Alone Forms: My [facility] Prescriptions Prescriptions: No Action Eliquis 2.5 mg tablet 2.5 mg PO BID Qty: 60 11RF Hold Instructions: Resume on 04/17/23. HOLD until your PCP tells you it is safe to resume. levothyroxine 75 mcg tablet 75 mcg PO DAILY Qty: 90 3RF Xifaxan 550 mg tablet 550 mg PO BID Qty: 60 2RF atorvastatin 10 mg tablet 10 mg PO HS Qty: 90 3RF propranolol 10 mg tablet 10 mg PO TID 90 Days Qty: 270 3RF coenzyme Q10 200 mg capsule 200 mg PO DAILY magnesium chloride 64 mg tablet,delayed release (DR/EC) 128 mg PO TID Qty: 540 3RF insulin glargine [Lantus U-100 Insulin] 100 unit/mL solution 7 unit subcut QAM furosemide 40 mg tablet 40 mg PO BID cefdinir 300 mg capsule 300 mg PO DAILY Qty: 10 0RF Rx Instructions: STARTED 02/12/24 FOR 5 DAYS (DME) Dexcom G7 Sensor Device See Rx Instructions .Route Qty: 1 6RF Rx Instructions: continuous glucose monitor (DME) Dexcom G7 Buttermaker Helper Misc See Rx Instructions .Route Qty: 1 0RF Rx Instructions: continuous use (DME) pen needle, diabetic [BD Ultra-Fine Short Pen Needle] 31 gauge x 5/16" needle See Rx Instructions .ROUTE .MEDSUPPLY Qty: 100 3RF Rx Instructions: Use once daily for Lantus injection cholecalciferol (vitamin D3) [Vitamin D3] 2,000 unit Capsule 2,000 unit PO QAM multivitamin Tablet 1 tab PO QAM vitamin E 400 unit capsule 400 unit PO QAM pantoprazole 40 mg Tablet,Delayed Release (Dr/Ec) 40 mg PO QAM Qty: 0 0RF lactulose 10 gram/15 mL (15 mL) Solution See Rx Instructions .ROUTE .COMPLEX Qty: 1440 0RF Rx Instructions: 45 grams in the morning and 30 grams in the evening; if you are not having at least 3 bowel movements/day please increase your evening dose to 45 grams. spironolactone 25 mg tablet 25 mg PO QAM insulin aspart U-100 [Novolog FlexPen U-100 Insulin] 100 unit/mL (3 mL) insulin pen 5 unit subcut BIDM Rx Instructions: administer 5 units at beginning of meals Breakfast and Dinner Referrals Referrals: Jian Pierce DO [Primary Care Provider] - Discharge Problem: Pneumonia Qualifiers: Pneumonia type: due to unspecified organism Laterality: bilateral Lung location: unspecified part of lung Qualified Code(s): J18.9 - Pneumonia, unspecified organism
[2024-02-15] MEDS: ALBUT/IPRATROP 3MG/0.5MG NEB 3 ML VIAL NEB STA (02:28)
[2024-02-15] MEDS: CEFEPIME 2,000 MG/20 ML VIAL IV STA (02:29)
[2024-02-15 02:52] LABS: Basophils # (auto) 0.03 K/uL (0.00-0.20); Basophils % (auto) 0.3 %; Hematocrit (blood only) 36.3 % (37.0-47.0); Immature Granulocytes # (auto) 0.13 K/uL (0.01-0.20); Immature Granulocytes % (auto) 1.4 %; Lymphocytes # (auto) 1.89 K/uL (1.20-3.40); Lymphocytes % (auto) 19.8 %; Mean Corpuscular Hemoglobin 30.5 pg (25.0-34.0); Mean Corpuscular Hgb Conc 33.1 g/dL (32.0-36.0); Mean Corpuscular Volume 92.4 fL (80.0-100.0); Mean Platelet Volume 10.6 fL (9.4-12.4); Monocytes # (auto) 1.15 K/uL (0.11-0.59); Monocytes % (auto) 12.1 %; Neutrophils # (auto) 6.23 K/uL (1.40-6.50); Neutrophils % (auto) 65.4 %; Platelet Count 163 K/uL (130-400); RDW Coefficient of Variation 13.4 % (11.5-14.5); RDW Standard Deviation 45.7 fL (36.4-46.3); Red Blood Count 3.93 M/uL (4.20-5.40); White Blood Count 9.53 K/ul (4.8-10.8)
[2024-02-15] MEDS: AZITHROMYCIN 500 MG in DEXTROSE 5% 250 ML IV ONE (03:04)
[2024-02-15 03:34] LABS: Adenovirus PCR Not Detected (NotDetected); Bordetella parapertussis PCR Not Detected (NotDetected); Bordetella pertussis PCR Not Detected (NotDetected); Chlamydia pneumoniae PCR Not Detected (NotDetected); Coronavirus 229E PCR Not Detected (NotDetected); Coronavirus CoV-2 (COVID19)PCR Not Detected (NotDetected); Coronavirus HKU1 PCR Not Detected (NotDetected); Coronavirus NL63 PCR Not Detected (NotDetected); Coronavirus OC43PCR Not Detected (NotDetected); Human Metapneumovirus PCR Not Detected (NotDetected); Influenza A PCR Not Detected (NotDetected); Influenza B PCR Not Detected (NotDetected); Mycoplasma pneumoniae PCR Not Detected (NotDetected); Parainfluenza Virus 1 PCR Not Detected (NotDetected); Parainfluenza Virus 2 PCR Not Detected (NotDetected); Parainfluenza Virus 3 PCR Not Detected (NotDetected); Parainfluenza Virus 4 PCR Not Detected (NotDetected); Respiratory Syncytial VirusPCR Not Detected (NotDetected); Rhinovirus/Enterovirus PCR DETECTED (NotDetected)
--- NOTE | 2024-02-15 04:10 | History & Physical Report ---
Date of Service February 15, 2024 Assessment & Plan (1) Rhinovirus infection: Plan: 78yo female with history of cirrhosis, HFpEF and DM presenting with 2.5 weeks of persistent cough, weakness today. Afebrile, HD stable, adequate oxygenation on room air. No leukocytosis. +Enterovirus. CXR with bilateral airspace opacities possible PNA -Admit to medical -Maintain isolation precautions -Check Procalcitonin -Follow cultures -Albuterol PRN -Tylenol PRN -Tessalon TID (2) Pneumonia: Plan: Patient afebrile, HD stable, saturating well on RA. Bilateral airspace opacities - likely PNA. No leukocytosis. Consider viral etiology - +Enterovirus. -Check Procalcitonin -Follow cultures -Empiric Ceftriaxone and Azithromycin for CAP -Tylenol PRN -Zofran PRN -Tessalon Plan Chronic Medical Conditions: Prior VTE: -Continue home Eliquis 2.5mg po BID HFpEF: Patient appears mildly hypovolemic -1L NSS ordered in ER -Hold Lasix for now -Hold Spironolactone for now -Repeat chemistry Cirrhosis: Stable, compensated -Continue Rifaximin -Continue Lactulose -Continue Propranolol Hypothyroidism: Stable -Continue Synthroid Diabetes: Chronic. 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 Patient's symptoms began approximately 2.5 weeks ago. Her family has been ill with similar symptoms. She has had persistent cough and congestion. Her daughter has been giving her Nyquil and Dayquil with little relief. She had an appointment with her PCP on 02/11 and was prescribed Cefdinir for presumed sinusitis. Over the last several days her cough has become more productive for thick, brown sputum. This AM around 01:30 patient started feeling more weak and tired and requested that she come to the ER. She has persistent cough productive for brown sputum. Some mild KILGORE. No chest pain or palpitations. No abdominal pain, nausea or vomiting. She has loose stools at baseline due to Lactulose - no changes in bowel movements. No additional complaints. In the ER she is afebrile, HD stable, adequate oxygenation on room air. ER Course: Nebs x 2 Cefepime Azithromycin Allergies Allergy/AdvReac Type Severity Reaction Status Date / Time No Known Allergies Allergy Verified 02/15/24 02:39 Home Medications Medication Instructions Recorded Confirmed Type cholecalciferol (vitamin D3) 50 2,000 unit PO QAM 07/01/18 02/15/24 History mcg (2,000 unit) capsule (Vitamin D3) multivitamin 1 tab PO QAM 10/14/19 02/15/24 History vitamin E 268 mg (400 unit) capsule 400 unit PO QAM 08/14/20 02/15/24 History coenzyme Q10 200 mg capsule 200 mg PO DAILY 11/01/21 02/15/24 History magnesium chloride 64 mg 128 mg (2 x 64 mg) PO TID #540 tabs 09/08/22 02/15/24 Rx (magnesium chloride) tablet,delayed release propranolol 10 mg tablet 10 mg PO TID 90 days #270 tabs 01/23/23 02/15/24 Rx apixaban 2.5 mg tablet (Eliquis) 2.5 mg PO BID #60 tabs 02/13/23 02/15/24 Rx levothyroxine 75 mcg tablet 75 mcg PO DAILY #90 tabs 03/01/23 02/15/24 Rx pantoprazole 40 mg tablet,delayed 40 mg PO QAM #0 tabs 06/21/23 02/15/24 Rx release rifaximin 550 mg tablet (Xifaxan) 550 mg PO BID #60 tabs 07/14/23 02/15/24 Rx lactulose 10 gram/15 mL (15 mL) See Rx Instructions .Route 07/31/23 02/15/24 Rx oral solution .COMPLEX #1,440 mL atorvastatin 10 mg tablet 10 mg PO HS #90 tabs 10/27/23 02/15/24 Rx blood-glucose meter,continuous #1 ea 11/15/23 01/18/24 Rx (Dexcom G7 [employer]) blood-glucose sensor (Dexcom G7 #1 ea 11/15/23 01/18/24 Rx Sensor device) pen needle, diabetic 31 gauge x #100 ea 11/15/23 01/18/24 Rx 5/16" (BD Ultra-Fine Short Pen Needle) spironolactone 25 mg tablet 25 mg PO QAM 12/06/23 02/15/24 History insulin glargine 100 unit/mL 7 unit subcut QAM 12/26/23 02/15/24 History subcutaneous solution (Lantus U-100 Insulin) furosemide 40 mg tablet 40 mg PO BID 01/18/24 02/15/24 History cefdinir 300 mg capsule 300 mg PO DAILY #10 caps 02/12/24 02/15/24 Rx insulin aspart U-100 100 unit/mL 5 unit subcut BIDM 02/15/24 02/15/24 History (3 mL) subcutaneous pen (Novolog FlexPen U-100 Insulin aspart) Past Med/Surg History Problem List Acute hyponatremia (Acute) Hypomagnesemia (Acute) Rhinovirus infection (Acute) Pneumonia (Acute) Wheezing (Acute) SOB (shortness of breath) (Acute) Weakness (Acute) Generalized weakness HTN (hypertension) (Acute) Leukopenia (Acute) Anemia (Acute) Hypomagnesemia (Acute) Acute hepatic encephalopathy (Acute) Fatigue Pancytopenia LLQ abdominal pain Inflammatory arthritis Hypertension (Acute) Slurred speech (Acute) Hyperammonemia (Acute) Altered mental status (Acute) Aortic stenosis Chronic right-sided congestive heart failure History of DVT (deep vein thrombosis) Presence of IVC filter Right leg pain Weakness (Acute) Anticoagulant long-term use (Acute) Hypothyroidism UTI (urinary tract infection) Chronic diastolic heart failure Stage 3b chronic kidney disease Hyperammonemia Cor pulmonale Chronic kidney disease, stage III (moderate) CHF (congestive heart failure) (Acute) Morbid obesity PAF (paroxysmal atrial fibrillation) 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) Diastolic dysfunction Atrial fibrillation with rapid ventricular response Chronic back pain Anemia (Acute) Rectal bleeding Abnormal mammogram of left breast Left breast lump Hematuria Encounter for examination following treatment at hospital Fall (Acute) Diarrhea Lower leg edema Proteinuria Right knee pain Lumbar stenosis with neurogenic claudication MGUS (monoclonal gammopathy of unknown significance) (Chronic ~02/2015) Meningioma (Acute) Vitamin D deficiency (Acute) Pituitary macroadenoma (Acute) Mitral regurgitation (Acute) Microalbuminuria (Acute) Hypercholesterolemia (Acute) Diabetes mellitus with peripheral vascular disease (Acute) Cervical spondylosis (Acute) Thickened endometrium Obesity, diabetes, and hypertension syndrome Bilateral lower extremity edema (Acute) Age-related physical debility Medical History Infective endocarditis Streptococcal bacteremia ROSALES (obstructive sleep apnea) Rectal bleeding Hypomagnesemia Nausea vomiting and diarrhea Dizziness Acute hyperkalemia Encephalopathy acute Nausea & vomiting Rhinovirus Acute on chronic diastolic heart failure Volume overload Lactate blood increase Vomiting and diarrhea Wheezing Weakness DVT (deep venous thrombosis) Elevated troponin EMY (acute kidney injury) Thrombocytopenia Chronic deep vein thrombosis (DVT) Fever Pulmonary embolism 2018 > no known cause > Filter to right groin Diverticular hemorrhage resolved GI bleed none at present Esophageal varices determined by endoscopy Monoclonal gammopathy Osteoarthritis GERD (gastroesophageal reflux disease) Migraine Vertigo Surgical History Status post lumbar surgery History of laparoscopic cholecystectomy History of section x3 History of bilateral breast reduction surgery History of dilatation and curettage History of carpal tunnel release of both wrists History of total left knee replacement (TKR) History of total right knee replacement (TKR) History of lumbar spinal fusion hardware in place History of colonoscopy History of esophagogastroduodenoscopy (EGD) History of tooth extraction all teeth History of tonsillectomy History of bilateral cataract extraction Family History Mother Family history of diabetes mellitus Brother Family history of diabetes mellitus 3 brothers Colorectal cancer Myocardial infarction x 2 Father Myocardial infarction Denies family history of Ovarian cancer Prostate cancer Breast cancer Social History Smoking Status: Never smoker Tobacco Type: Cigarettes Age Started Using Tobacco: 15; Age Quit Using Tobacco: 21; Cigarettes Per Day: stopped 55 years ago; Second Hand Exposure: No; Do You Dip or Chew Tobacco: No; Hx Alcohol Use: No Hx Substance Use: No Preferred Language: Pakistani Communication Ability: Effective Visual Impairment: Limited Hearing Ability: Normal Admission Discharge Rn Required: No Beliefs That Will Affect Care: None marital status: / Current Living Situation: Family Current Living Situation Comment: Lives with malika current occupational status: retired How many Children do You have: 3 Feels Safe at Home: Yes Childhood Exposure to Second-Hand Smoke: Yes Diet: regular caffeine: Yes (tea) during the past year weight has: remained stable Dental Care, Regularly: No Physical Activity Frequency: Does not Exercise Seatbelt Use: always Sunscreen Use: No Do you think of yourself as: straight/heterosexual Gender Identity: Female Assistive Devices: Walker and Other Review of Systems Review of Systems: All systems reviewed & are unremarkable except as noted in HPI & below Physical Exam Physical Exam: General: patient resting comfortably, NAD, non-toxic in appearance, AA&O x 4, appears tired Skin: small skin tear on left leg with bandage in place HEENT: NC/AT, PERRL, EOMI, anicteric sclera, conjunctiva without injection, external ear normal to inspection and nontender, nares patent, moist mucus membranes, dentition intact, no oropharyngeal lesions, neck supple, trachea midline, no LAD, no thyromegaly, no JVD Heart: +S1/S2, regular, no m/r/g Lungs: equal air entry bilaterally, no rales/rhonchi/wheezes, persistent cough Abd: +BS, soft, NT/ND, no masses/organomegaly/ascites Ext: warm, 2+ pulses in UE/LE bilaterally, no clubbing/cyanosis or edema Neuro: nonfocal, patient AA&O x 4, speech intact, no facial droop, moving all extremities on command with equal strength 5/5 Results & Data Results & Data Vital Signs (Past 12 Hours) Vital Signs Temp Pulse Pulse Resp BP BP Pulse Ox 02/15/24 02:17 77 02/15/24 02:14 77 23 94 02/15/24 02:14 77 19 163/82 H 94 02/15/24 02:07 36.8 C 79 18 163/82 H 94 O2 Del Method 02/15/24 02:17 02/15/24 02:14 Room Air 02/15/24 02:14 Room Air 02/15/24 02:07 Room Air Laboratory Results Laboratory Results WBC 9.53 K/ul (4.8-10.8) 02/15/24 02:15 RBC 3.93 M/uL (4.20-5.40) L 02/15/24 02:15 Hgb 12.0 g/dl (12.0-16.0) 02/15/24 02:15 Hct 36.3 % (37.0-47.0) L 02/15/24 02:15 MCV 92.4 fL (80.0-100.0) 02/15/24 02:15 MCH 30.5 pg (25.0-34.0) 02/15/24 02:15 MCHC 33.1 g/dL (32.0-36.0) 02/15/24 02:15 RDW Std Deviation 45.7 fL (36.4-46.3) 02/15/24 02:15 RDW Coeff of Leah 13.4 % (11.5-14.5) 02/15/24 02:15 Plt Count 163 K/uL (130-400) 02/15/24 02:15 MPV 10.6 fL (9.4-12.4) 02/15/24 02:15 Immature Gran % (Auto) 1.4 % 02/15/24 02:15 Neut % (Auto) 65.4 % 02/15/24 02:15 Lymph % (Auto) 19.8 % 02/15/24 02:15 Pope % (Auto) 12.1 % 02/15/24 02:15 Eos % (Auto) 1.0 % 02/15/24 02:15 Baso % (Auto) 0.3 % 02/15/24 02:15 Neut # (Auto) 6.23 K/uL (1.40-6.50) 02/15/24 02:15 Lymph # (Auto) 1.89 K/uL (1.20-3.40) 02/15/24 02:15 Pope # (Auto) 1.15 K/uL (0.11-0.59) H 02/15/24 02:15 Eos # (Auto) 0.10 K/uL (0.00-0.50) 02/15/24 02:15 Baso # (Auto) 0.03 K/uL (0.00-0.20) 02/15/24 02:15 Immature Gran # (Auto) 0.13 K/uL (0.01-0.20) 02/15/24 02:15 PT 12.6 Seconds (9.0-12.0) H 02/15/24 03:41 INR 1.2 (0.9-1.1) H 02/15/24 03:41 APTT 32 Seconds (21-31) H 02/15/24 03:41 PTT Ratio 1.2 02/15/24 03:41 Sodium 131 mmol/L (136-145) L 02/15/24 03:41 Potassium 4.6 mmol/L (3.5-5.1) 02/15/24 03:41 Chloride 102 mmol/L (98-107) 02/15/24 03:41 Carbon Dioxide 22 mmol/L (21-32) 02/15/24 03:41 Anion Gap 7 (3-11) 02/15/24 03:41 BUN 47 mg/dl (6-23) H 02/15/24 03:41 Creatinine 1.97 mg/dl (0.6-1.2) H 02/15/24 03:41 Est Cr Clr Drug Dosing 25.2 ml/min 02/15/24 03:41 Est GFR ( Amer) 27.1 ml/min 02/15/24 03:41 Est GFR (Non-Af Amer) 23.4 ml/min 02/15/24 03:41 BUN/Creatinine Ratio 23.9 (10-20) H 02/15/24 03:41 Glucose 193 mg/dl (70-99(Fasting)) H 02/15/24 03:41 Lactate 1.2 mmol/L (0.4-2.0) 02/15/24 02:15 Calcium 9.3 mg/dl (8.6-10.3) 02/15/24 03:41 Magnesium 1.5 mg/dl (1.7-2.4) L 02/15/24 03:41 Total Bilirubin 0.8 mg/dl (0.2-1.0) 02/15/24 03:41 AST 39 U/L (13-39) 02/15/24 03:41 ALT 19 U/L (7-52) 02/15/24 03:41 Alkaline Phosphatase 134 U/L (34-104) H 02/15/24 03:41 Troponin I High Sens 26.9 pg/ml (0-14) H 02/15/24 03:41 B-Natriuretic Peptide 398 pg/ml (0-100) H 02/15/24 02:15 Total Protein 7.5 gm/dl (6.0-8.3) 02/15/24 03:41 Albumin 2.9 gm/dl (3.4-5.0) L 02/15/24 03:41 Globulin 4.6 gm/dl (2.5-4.0) H 02/15/24 03:41 Albumin/Globulin Ratio 0.6 (0.9-2) L 02/15/24 03:41 Adenovirus (PCR) Not Detected (NotDetected) 02/15/24 02:15 B. pertussis DNA (PCR) Not Detected (NotDetected) 02/15/24 02:15 B.parapertussis DNA PCR Not Detected (NotDetected) 02/15/24 02:15 C. pneumoniae DNA (PCR) Not Detected (NotDetected) 02/15/24 02:15 Coronavirus OC43 (PCR) Not Detected (NotDetected) 02/15/24 02:15 Coronavirus HKU1 (PCR) Not Detected (NotDetected) 02/15/24 02:15 Coronavirus 229E (PCR) Not Detected (NotDetected) 02/15/24 02:15 SARS-CoV-2 (PCR) Not Detected (NotDetected) 02/15/24 02:15 Coronavirus NL63 (PCR) Not Detected (NotDetected) 02/15/24 02:15 Human Metapneumovir PCR Not Detected (NotDetected) 02/15/24 02:15 Influenza Type A (PCR) Not Detected (NotDetected) 02/15/24 02:15 Influenza Type B (PCR) Not Detected (NotDetected) 02/15/24 02:15 M. pneumoniae (PCR) Not Detected (NotDetected) 02/15/24 02:15 Parainfluenza 1 (PCR) Not Detected (NotDetected) 02/15/24 02:15 Parainfluenza 2 (PCR) Not Detected (NotDetected) 02/15/24 02:15 Parainfluenza 3 (PCR) Not Detected (NotDetected) 02/15/24 02:15 Parainfluenza 4 (PCR) Not Detected (NotDetected) 02/15/24 02:15 RSV (PCR) Not Detected (NotDetected) 02/15/24 02:15 Entero/Rhino (PCR) DETECTED (NotDetected) A 02/15/24 02:15 Diagnostic Findings CXR - appears to show bilateral pulmonary airspace opacities R > L ECG Additional Comments: No acute ischemic changes Code Status & VTE Plan VTE Prophylaxis Plan VTE Prophylaxis will be ordered: Yes PG Care Time/CCT Total # of Minutes Spent Total Time Spent with Patient: Total time spent is greater than 50% in coordination of care (as documented) at patient's floor/unit and/or counseling patient: Coding Level of Care Code 83586 INT INP/OBS CARE 3/75MIN Diagnoses Rhinovirus infection B34.8 Pneumonia J18.9 Laterality: bilateral Lung location: unspecified part of lung Pneumonia type: due to unspecified organism (2) Pneumonia Laterality: bilateral Lung location: unspecified part of lung Pneumonia type: due to unspecified organism Qualified Code(s): J18.9 - Pneumonia, unspecified organism
[2024-02-15 04:11] LABS: Albumin Globulin Ratio 0.6 (0.9-2); Albumin Level 2.9 gm/dl (3.4-5.0); BUN Creatinine Ratio 23.9 (10-20); Bilirubin,Total 0.8 mg/dl (0.2-1.0); Calcium 9.3 mg/dl (8.6-10.3); Creatinine Clr Calc Pharmacy 25.2 ml/min; Est GFR (African American) 27.1 ml/min; Est GFR (Non-African American) 23.4 ml/min; Globulin 4.6 gm/dl (2.5-4.0); Magnesium 1.5 mg/dl (1.7-2.4); Potassium 4.6 mmol/L (3.5-5.1); Total Protein 7.5 gm/dl (6.0-8.3)
[2024-02-15 04:30] LABS: INR 1.2 (0.9-1.1); Partial Thromboplastin Ratio 1.2; Partial Thromboplastin Time 32 Seconds (21-31); Prothrombin Time 12.6 Seconds (9.0-12.0)
[2024-02-15 04:34] LABS: Troponin I High Sensitivity 26.9 pg/ml (0-14)
[2024-02-15] MEDS: SODIUM CHLORIDE 0.9% 500 ML IV ONE (05:18)
[2024-02-15] MEDS: MAGNESIUM SULFATE / D5W 1 GM/100 ML BAG IV STA (05:18)
[2024-02-15] MEDS ORDERED: GLUCOSE 40% GEL 15 GM TUBE PO PRN (06:47)
[2024-02-15] MEDS ORDERED: CARBOHYDRATES FOR HYPOGLYCEMIA PO PRN (06:47)
[2024-02-15] MEDS ORDERED: GLUCAGON FOR INJ 1 MG VIAL SQ PRN (06:47)
[2024-02-15] MEDS ORDERED: ONDANSETRON INJ 2 MG/ML 2 ML VIAL IV PRN (06:47)
[2024-02-15] MEDS ORDERED: DEXTROSE 50% 50 ML SYRINGE IV PRN (06:47)
[2024-02-15] MEDS ORDERED: GLUCOSE 10 TAB/TUBE PO PRN (06:47)
--- NOTE | 2024-02-15 07:08 | XRay Report ---
XR chest 1V portable CLINICAL HISTORY: Dyspnea TECHNIQUE: Single frontal radiograph of the chest was obtained. Comparison: Comparison is made to chest radiograph 12/06/2023 FINDINGS: No lines and tubes are seen. Cardiomegaly is noted. The aortic arch is calcified. There is prominence and cephalization of the vasculature with Ana B lines seen. No evidence of pleural effusion or pn eumothorax. IMPRESSION: Cardiomegaly and moderate pulmonary edema. ACT 112: Negative or not required by law. Electronically signed by: Cory Wolff M.D. 02/15/2024 7:07 AM
--- NOTE | 2024-02-15 08:56 | Electrocardiogram Report ---
Test Reason : Blood Pressure : / mmHG Vent. Rate : 076 BPM Atrial Rate : 076 BPM P-R Int : 142 ms QRS Dur : 126 ms QT Int : 446 ms P-R-T Axes : 022 -51 -17 degrees QTc Int : 501 ms Normal sinus rhythm Right bundle branch block Left anterior fascicular block Minimal voltage criteria for LVH, may be normal variant ( R in aVL ) Nonspecific T wave abnormality Anterior leads Abnormal ECG When compared with ECG of 06-DEC-2023 12:18, No significant change Confirmed by Hayden Benavides [id number] on 02/15/2024 8:56:17 AM Referred By: REFERRED SELF Confirmed By:Hayden Benavides
[2024-02-15] MEDS: rifAXIMin 550 MG TABLET PO SCH (09:38)
[2024-02-15] MEDS: PROPRANOLOL HCL 10 MG TAB PO SCH (09:38)
[2024-02-15] MEDS: PANTOprazole 40 MG TAB PO SCH (09:39)
[2024-02-15] MEDS: BENZONATATE 100 MG CAPSULE PO SCH ×2 (09:40→20:33)
[2024-02-15] MEDS: LEVOTHYROXINE SODIUM 75 MCG TABLET PO SCH (09:41)
[2024-02-15] MEDS: APIXABAN 2.5 MG TAB PO SCH (09:41)
[2024-02-15] MEDS: LACTULOSE SYRUP 10 GM/15 ML BTL 960 ML PO SCH ×2 (09:42→20:34)
[2024-02-15] MEDS: cefTRIAXone SODIUM 2,000 MG/50 ML BAG IV SCH (09:44)
[2024-02-15] MEDS: INSULIN ASPART PER UNIT CHARGE SC SCH (09:49)
[2024-02-15] MEDS: LANTUS PER UNIT CHARGE SQ SCH (09:49)
[2024-02-15] MEDS: MAGNESIUM SULFATE / D5W 1 GM/100 ML BAG IV SCH (11:45)
[2024-02-15] MEDS: ALBUTEROL 0.5% NEB SOLN 2.5 MG/0.5 ML VIAL NEB PRN (14:28)
--- NOTE | 2024-02-15 16:38 | History & Physical Bridge Note ---
Date of Service February 15, 2024 History & Physical Bridge Note I have examined the patient, reviewed the History & Physical and in the interval since the performance of the History & Physical I have noted the following changes of clinical significance: Pt continues to have significant dry cough and diffuse exp wheezes since admission. Vital sreviewed NAD, AAOx3 diffuse exp wheezing bilat RRR no mgr Abd +BS soft NT ND Ext no edema Hypomagnesemia-give a total of 3 grams IV mag-ordered 2 more grams, follow level in AM PNA/Rhinovirus--> increase tessalon perles to 200mg tid and add on guaifenesin DM prn Add on scheduled DUonebs Continue abx, supprotive care
[2024-02-15] MEDS: ALBUT/IPRATROP 3MG/0.5MG NEB 3 ML VIAL NEB SCH (16:44)
[2024-02-15] MEDS: LANTUS PER UNIT CHARGE SQ ONE (17:47)
[2024-02-15] MEDS: ATORVASTATIN 10 MG TAB PO SCH (20:33)
[2024-02-15] MEDS: MAGNESIUM CHLORIDE W/CALCIUM 64MG DELAYED REL TAB PO SCH (20:34)
[2024-02-15] MEDS: guaiFENesin/DEXTROM SYRUP 200MG/20MG 10ML UDC PO PRN (20:34)
[2024-02-15] MEDS: FUROSEMIDE 40 MG TAB PO SCH (20:34)
[2024-02-16] MEDS: AZITHROMYCIN 250 MG in DEXTROSE 5% 250 ML IV SCH (05:19)
[2024-02-16 07:44] LABS: Hematocrit (blood only) 36.1 % (37.0-47.0); Hemoglobin 11.5 g/dl (12.0-16.0); Mean Corpuscular Hemoglobin 30.3 pg (25.0-34.0); Mean Corpuscular Hgb Conc 31.9 g/dL (32.0-36.0); Mean Platelet Volume 10.4 fL (9.4-12.4); Platelet Count 143 K/uL (130-400); RDW Coefficient of Variation 13.4 % (11.5-14.5); RDW Standard Deviation 47.6 fL (36.4-46.3); White Blood Count 10.09 K/ul (4.8-10.8)
[2024-02-16] MEDS: MULTIVITAMIN TAB PO SCH (08:32)
[2024-02-16] MEDS: SPIRONOLACTONE 25 MG TAB PO SCH (08:32)
[2024-02-16] MEDS: LANTUS PER UNIT CHARGE SQ SCH (08:38)
[2024-02-16 08:51] LABS: BUN Creatinine Ratio 24.4 (10-20); Creatinine Clr Calc Pharmacy 22.4 ml/min; Est GFR (African American) 23.6 ml/min; Est GFR (Non-African American) 20.4 ml/min; Magnesium 2.2 mg/dl (1.7-2.4); Potassium 4.4 mmol/L (3.5-5.1)
[2024-02-16] MEDS: LANTUS PER UNIT CHARGE SQ ONE (13:36)
--- NOTE | 2024-02-16 17:33 | Hospitalist Progress Note ---
Date of Service February 16, 2024 Assessment & Plan (1) Rhinovirus infection: Plan: 78yo female with history of cirrhosis, HFpEF and DMII presenting with 2.5 weeks of persistent cough, weakness, SOB Afebrile, HD stable, adequate oxygenation on room air. No leukocytosis. + Rhinovirus/enterovirus. CXR with bilateral airspace opacities possible PNA. Procalcitonin is negative but will treat for secondary bacterial pneumonia With diffuse wheezing, no history of chronic lung disease -Continue ceftriaxone and azithromycin -Maintain isolation precautions -Follow blood cultures -Continue scheduled DuoNebs -Continue Tessalon TID and guaifenesin DM as needed -Supportive care, weakness is improving (2) Pneumonia: Plan: Patient afebrile, HD stable, saturating well on RA. Bilateral airspace opacities - likely PNA. No leukocytosis. Consider viral etiology - +Enterovirus, but could be superimposed bacterial pneumonia Continue antibiotics as above Follow chest x-ray to resolution (3) Chronic diastolic heart failure: Plan: Chronic HFpEF: Patient appeared mildly hypovolemic on admission-1L NSS ordered in ER, but then restarted home Lasix and spironolactone BUN/creatinine bumped slightly on 02/15 -Hold Lasix and spironolactone for now, but resume if creatinine improves and develops peripheral edema -Follow BMP (4) Diabetes mellitus type 2 in obese: Plan: Chronic and with hyperglycemia here and at home-average blood sugars at home are in the mid 300s She reports her blood sugars have increased since being on lactulose Continue to titrate up on Lantus to 15 units twice daily, tighten down NovoLog sliding scale correction factor Follow blood sugars and check hemoglobin A1c in the morning Plan Chronic Medical Conditions: Prior VTE: -Continue home Eliquis 2.5mg po BID Cirrhosis: Stable, compensated -Continue Rifaximin -Continue Lactulose-she is moving her bowels daily -Continue Propranolol Hypothyroidism: Stable -Continue Synthroid DVT Ppx - Continue Apixaban Code - DNR/DNI per discussion with patient Dispo -continued stay on medical with telemetry, PT/OT consults placed but she will most likely be able to return home Will call her niece with an update on 02/15 Admission and Anticipated Discharge Date Admission Date: February 15, 2024 Subjective Patient moving her bowels today. Blood sugars remain quite elevated but she reports that at home they are always in the mid 300 range. Her cough is better today but still feels short of breath at times although overall improved Telemetry with normal sinus rhythm, PACs and PVCs, IVCD, rates in the 60s to 70s Physical Exam Constitutional: WD/WN, vitals as above Respiratory: normal respiratory effort and + cough Auscultation: + rhonchi (Bilateral) and + wheezes (Bilateral expiratory wheezes, improved from previous); no crackles Cardiovascular: RRR, no murmur, no edema Gastrointestinal (Abdomen): normal bowel sounds, soft, nontender, no hepatosplenomegaly Psychiatric: A+Ox3, euthymic affect Results & Data Results & Data Vital Signs (Past 12 Hours) Vital Signs Temp Pulse Pulse Pulse Resp BP Pulse Ox 02/16/24 16:07 67 21 96 02/16/24 14:22 36.4 C L 72 18 125/76 96 02/16/24 13:54 64 02/16/24 11:43 36.3 C L 73 18 148/71 H 95 02/16/24 11:38 74 14 97 02/16/24 09:51 02/16/24 07:39 36.4 C L 72 18 125/75 100 02/16/24 07:37 65 18 96 02/16/24 07:19 69 O2 Del Method FiO2 02/16/24 16:07 Room Air 21 02/16/24 14:22 Room Air 02/16/24 13:54 02/16/24 11:43 Room Air 02/16/24 11:38 Room Air 02/16/24 09:51 Nasal Cannula 02/16/24 07:39 Room Air, Other 02/16/24 07:37 Room Air 02/16/24 07:19 Laboratory Results CBC, BMP, magnesium, blood cultures reviewed PG Care Time/CCT Total # of Minutes Spent Total Time Spent with Patient: Total time spent is greater than 50% in coordination of care (as documented) at patient's floor/unit and/or counseling patient: Coding Level of Care Code 48874 SUB INP/OBS CARE 3/50MIN Diagnoses Rhinovirus infection B34.8 Pneumonia J18.9 Laterality: bilateral Lung location: unspecified part of lung Pneumonia type: due to unspecified organism Chronic diastolic heart failure I50.32 Diabetes mellitus type 2 in obese E11.69; E66.9 (2) Pneumonia Laterality: bilateral Lung location: unspecified part of lung Pneumonia type: due to unspecified organism Qualified Code(s): J18.9 - Pneumonia, unspecified organism
[2024-02-17 07:47] LABS: Basophils # (auto) 0.02 K/uL (0.00-0.20); Basophils % (auto) 0.2 %; Hematocrit (blood only) 34.9 % (37.0-47.0); Hemoglobin 11.2 g/dl (12.0-16.0); Immature Granulocytes # (auto) 0.18 K/uL (0.01-0.20); Immature Granulocytes % (auto) 1.6 %; Lymphocytes # (auto) 0.69 K/uL (1.20-3.40); Lymphocytes % (auto) 6.2 %; Mean Corpuscular Hemoglobin 30.3 pg (25.0-34.0); Mean Corpuscular Hgb Conc 32.1 g/dL (32.0-36.0); Mean Corpuscular Volume 94.3 fL (80.0-100.0); Mean Platelet Volume 10.2 fL (9.4-12.4); Monocytes # (auto) 0.62 K/uL (0.11-0.59); Monocytes % (auto) 5.5 %; Neutrophils # (auto) 9.69 K/uL (1.40-6.50); Neutrophils % (auto) 86.5 %; Platelet Count 143 K/uL (130-400); RDW Coefficient of Variation 13.7 % (11.5-14.5); RDW Standard Deviation 46.6 fL (36.4-46.3)
[2024-02-17 08:04] LABS: Estimated Average Glucose 189 mg/dl; Hemoglobin A1C 8.2 % (4.5-5.6)
[2024-02-17 08:09] LABS: BUN Creatinine Ratio 23.8 (10-20); Calcium 8.8 mg/dl (8.6-10.3); Est GFR (African American) 20.6 ml/min; Est GFR (Non-African American) 17.7 ml/min; Potassium 4.1 mmol/L (3.5-5.1)
[2024-02-17] MEDS ORDERED: LANTUS PER UNIT CHARGE SQ SCH (09:00)
[2024-02-17] MEDS: LANTUS PER UNIT CHARGE SQ SCH (09:13)
--- NOTE | 2024-02-17 12:34 | Hospitalist Progress Note ---
Date of Service February 17, 2024 Assessment & Plan (1) Rhinovirus infection: Plan: 78yo female with history of cirrhosis, HFpEF and DMII presenting with 2.5 weeks of persistent cough, weakness, SOB Tested positive for Rhinovirus/enterovirus. CXR with bilateral airspace opacities possible PNA. Procalcitonin is negative but will treat for secondary bacterial pneumonia Much improved wheeze on exam today -Culture still negative -Continue ceftriaxone and azithromycin -Maintain isolation precautions -Continue scheduled DuoNebs -Continue Tessalon TID and guaifenesin DM as needed -Supportive care, weakness is improving (2) Pneumonia: Plan: Patient afebrile, HD stable, saturating well on RA. Bilateral airspace opacities - likely PNA. No leukocytosis. Consider viral etiology - +Enterovirus, but could be superimposed bacterial pneumonia Continue antibiotics as above Follow chest x-ray to resolution (3) Chronic diastolic heart failure: Plan: Chronic HFpEF: Patient appeared mildly hypovolemic on admission-1L NSS ordered in ER, but then restarted home Lasix and spironolactone Due to worsening renal function Lasix and spironolactone currently on hold. Patient appears compensated (4) Diabetes mellitus type 2 in obese: Plan: Chronic and with hyperglycemia here and at home-average blood sugars at home are in the mid 300s She reports her blood sugars have increased since being on lactulose Continue to titrate up on Lantus to 15 units twice daily, tighten down NovoLog sliding scale correction factor Follow blood sugars and check hemoglobin A1c in the morning Plan Chronic Medical Conditions: Prior VTE: -Continue home Eliquis 2.5mg po BID Cirrhosis: Stable, compensated -Continue Rifaximin -Continue Lactulose-she is moving her bowels daily -Continue Propranolol Hypothyroidism: Stable -Continue Synthroid DVT Ppx - Continue Apixaban Code - DNR/DNI per discussion with patient Dispo -continued stay on medical with telemetry, PT/OT consults placed but she will most likely be able to return home Admission and Anticipated Discharge Date Admission Date: February 15, 2024 Subjective Patient seen and examined, sitting up in the chair, states she gets a little bit short of breath still when she walks around. Review of Systems Review of Systems: All systems reviewed are negative, apart from the ones contained in the history. Physical Exam Physical Exam: The patient is awake, alert and oriented 3, well developed and well nourished, normocephalic and atraumatic, lying in bed and in no acute distress. HEENT--PERRL, EOMI, mucous membranes and oropharynx mildly dry Neck--supple. No JVD. No bruits. Thyroid normal, trachea midline, no adenopathy. Heart--normal S1 and S2. No murmurs, rubs or gallops. Lungs--clear bilaterally, no respiratory distress, no accessory muscle use. Abdomen--normal bowel sounds and soft. Extremities--no cyanosis or clubbing. No edema. Dermatologic--normal skin turgor, normal color, no abnormal lymph nodes, no rash. Neurologic--cranial nerves II through XII grossly intact. Rheumatologic--normal range of motion. Psychiatric--normal affect. Results & Data Results & Data Vital Signs (Past 12 Hours) Vital Signs Temp Pulse Resp BP Pulse Ox O2 Del Method FiO2 02/17/24 11:51 97.3 F L 71 16 129/76 93 Room Air 02/17/24 11:33 75 12 93 Room Air 21 02/17/24 11:30 Room Air 02/17/24 08:27 97.3 F L 64 16 136/66 94 Room Air 02/17/24 07:45 63 14 94 Room Air 21 02/17/24 04:00 97.3 F L 74 18 127/74 91 Room Air PG Care Time/CCT Total # of Minutes Spent Total Time Spent with Patient: Total time spent is greater than 50% in coordination of care (as documented) at patient's floor/unit and/or counseling patient: Coding Level of Care Code 50715 SUB INP/OBS CARE 2/35MIN Diagnoses Rhinovirus infection B34.8 Pneumonia J18.9 Laterality: bilateral Lung location: unspecified part of lung Pneumonia type: due to unspecified organism Chronic diastolic heart failure I50.32 Diabetes mellitus type 2 in obese E11.69; E66.9 Time Spent (min) 35 (2) Pneumonia Laterality: bilateral Lung location: unspecified part of lung Pneumonia type: due to unspecified organism Qualified Code(s): J18.9 - Pneumonia, unspecified organism
[2024-02-18] MEDS: ACETAMINOPHEN 325 MG TAB PO PRN (04:36)
[2024-02-18 06:43] LABS: Hematocrit (blood only) 35.6 % (37.0-47.0); Hemoglobin 11.3 g/dl (12.0-16.0); Mean Corpuscular Hemoglobin 30.2 pg (25.0-34.0); Mean Corpuscular Hgb Conc 31.7 g/dL (32.0-36.0); Mean Corpuscular Volume 95.2 fL (80.0-100.0); Platelet Count 129 K/uL (130-400); RDW Coefficient of Variation 13.9 % (11.5-14.5); RDW Standard Deviation 48.6 fL (36.4-46.3); Red Blood Count 3.74 M/uL (4.20-5.40); White Blood Count 8.61 K/ul (4.8-10.8)
[2024-02-18 06:58] LABS: BUN Creatinine Ratio 28.6 (10-20); Calcium 8.8 mg/dl (8.6-10.3); Creatinine Clr Calc Pharmacy 21.8 ml/min; Est GFR (African American) 22.9 ml/min; Est GFR (Non-African American) 19.7 ml/min
--- NOTE | 2024-02-18 11:45 | Discharge Summary ---
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 Patient's symptoms began approximately 2.5 weeks ago. Her family has been ill with similar symptoms. She has had persistent cough and congestion. Her daughter has been giving her Nyquil and Dayquil with little relief. She had an appointment with her PCP on 02/11 and was prescribed Cefdinir for presumed sinusitis. Over the last several days her cough has become more productive for thick, brown sputum. This AM around 01:30 patient started feeling more weak and tired and requested that she come to the ER. She has persistent cough productive for brown sputum. Some mild KIL[place]ORE. No chest pain or palpitations. No abdominal pain, nausea or vomiting. She has loose stools at baseline due to Lactulose - no changes in bowel movements. No additional complaints. In the ER she is afebrile, HD stable, adequate oxygenation on room air. ER Course: Nebs x 2 Cefepime Azithromycin Admission Exam (Per Admitting) Constitutional The patient is awake, alert and oriented 3, well developed and well nourished, normocephalic and atraumatic, lying in bed and in no acute distress. HEENT--PERRL, EOMI, mucous membranes and oropharynx mildly dry Neck--supple. No JVD. No bruits. Thyroid normal, trachea midline, no adenopathy. Heart--normal S1 and S2. No murmurs, rubs or gallops. Lungs--clear bilaterally, no respiratory distress, no accessory muscle use. Abdomen--normal bowel sounds and soft. Extremities--no cyanosis or clubbing. No edema. Dermatologic--normal skin turgor, normal color, no abnormal lymph nodes, no rash. Neurologic--cranial nerves II through XII grossly intact. Rheumatologic--normal range of motion. Psychiatric--normal affect. Discharge Data Consultations 02/15/24 03:45 ED Decision to Admit Stat Hospital Course (1) Rhinovirus infection: 78yo female with history of cirrhosis, HFpEF and DMII presenting with 2.5 weeks of persistent cough, weakness, SOB Tested positive for Rhinovirus/enterovirus. CXR with bilateral airspace opacities possible PNA. Procalcitonin is negative but will treat for secondary bacterial pneumonia Much improved wheeze on exam today -Culture still negative -Continue ceftriaxone and azithromycin -Maintain isolation precautions -Continue scheduled DuoNebs -Continue Tessalon TID and guaifenesin DM as needed -Supportive care, weakness is improving (2) Pneumonia: Patient afebrile, HD stable, saturating well on RA. Bilateral airspace opacities - likely PNA. No leukocytosis. Consider viral etiology - +Enterovirus, but could be superimposed bacterial pneumonia Continue antibiotics as above Follow chest x-ray to resolution (3) Chronic diastolic heart failure: Chronic HFpEF: Patient appeared mildly hypovolemic on admission-1L NSS ordered in ER, but then restarted home Lasix and spironolactone Due to worsening renal function Lasix and spironolactone currently on hold. Patient appears compensated (4) Diabetes mellitus type 2 in obese: Chronic and with hyperglycemia here and at home-average blood sugars at home are in the mid 300s She reports her blood sugars have increased since being on lactulose Continue to titrate up on Lantus to 15 units twice daily, tighten down NovoLog sliding scale correction factor Follow blood sugars and check hemoglobin A1c in the morning Plan Chronic Medical Conditions: Prior VTE: -Continue home Eliquis 2.5mg po BID Cirrhosis: Stable, compensated -Continue Rifaximin -Continue Lactulose-she is moving her bowels daily -Continue Propranolol Hypothyroidism: Stable -Continue Synthroid DVT Ppx - Continue Apixaban Code - DNR/DNI per discussion with patient Dispo -continued stay on medical with telemetry, PT/OT consults placed but she will most likely be able to return home Coding Level of Care Code 47452 INP/OBS DISCH >30 MIN Diagnoses Rhinovirus infection B34.8 Pneumonia J18.9 Laterality: bilateral Lung location: unspecified part of lung Pneumonia type: due to unspecified organism Chronic diastolic heart failure I50.32 Diabetes mellitus type 2 in obese E11.69; E66.9 Time Spent (min) 35
== END 2024-02-18 13:12 | disposition home or self-care (01) | DRG 194 ==
LOC: ED 02:01 → EDINP 04:09 → SUATTDRO 04:09 → 2W 06:37

== ENCOUNTER 2024-04-27 07:01 | Inpatient (IN) ==
--- NOTE | 2024-04-27 07:31 | Emergency Department Note ---
History of Present Illness General Chief complaint: Hip Pain Stated complaint: R HIP AND LEG PAIN Time Seen by Provider: 04/27/24 07:08 History of Present Illness Maximum Pain Intensity: 8 This 78-year-old female presents today by BLS ambulance, for evaluation of right-sided hip and leg pain that has been present for most of the week. She has had difficulty ambulating at home. She felt this morning that she could not walk. EMS was called for transport to the hospital. She has a history of chronic back pain. She has a history of arthritis. She denies any recent falls or injury. No trauma. She also notes some right-sided abdominal pain and some small bouts of blood in her stools intermittently. This is not unusual for her. She is on Eliquis. She is a poor historian. Denies any chest pain, shortness of breath, nausea, vomiting, or UTI symptoms. PCP is Dr. Pierce. She has a history of bilateral total knee arthroplasties by Dr. Grayson, but is unsure of the date. She states her spinal surgery was done by Dr. Santacruz, but does not know the date. She is visibly uncomfortable. She lives at home with her niece. Home Medications Medication Instructions Recorded Confirmed Type cholecalciferol (vitamin D3) 50 2,000 unit PO QAM 07/01/18 03/07/24 History mcg (2,000 unit) capsule (Vitamin D3) multivitamin 1 tab PO QAM 10/14/19 03/07/24 History vitamin E 268 mg (400 unit) capsule 400 unit PO QAM 08/14/20 03/07/24 History coenzyme Q10 200 mg capsule 200 mg PO DAILY 11/01/21 03/07/24 History magnesium chloride 64 mg 128 mg (2 x 64 mg) PO TID #540 tabs 09/08/22 03/07/24 Rx (magnesium chloride) tablet,delayed release rifaximin 550 mg tablet (Xifaxan) 550 mg PO BID #60 tabs 07/14/23 03/07/24 Rx atorvastatin 10 mg tablet 10 mg PO HS #90 tabs 10/27/23 03/07/24 Rx blood-glucose meter,continuous #1 ea 11/15/23 03/07/24 Rx (Dexcom G7 Content Editor) blood-glucose sensor (Dexcom G7 #1 ea 11/15/23 03/07/24 Rx Sensor device) pen needle, diabetic 31 gauge x #100 ea 11/15/23 03/07/24 Rx 5/16" (BD Ultra-Fine Short Pen Needle) spironolactone 25 mg tablet 25 mg PO QAM 12/06/23 03/07/24 History furosemide 40 mg tablet 40 mg PO BID 01/18/24 03/07/24 History insulin aspart U-100 100 unit/mL 5 unit subcut BIDM 02/15/24 03/07/24 History (3 mL) subcutaneous pen (Novolog FlexPen U-100 Insulin aspart) dextromethorphan-guaifenesin 5 10 ml PO Q6H PRN cough #500 mL 02/18/24 03/07/24 Rx mg-100 mg/5 mL oral liquid (Robitussin Cough-Chest Congestion DM) propranolol 10 mg tablet 10 mg PO TID 90 days #270 tabs 02/26/24 03/07/24 Rx apixaban 2.5 mg tablet (Eliquis) 2.5 mg PO BID #60 tabs 03/04/24 03/07/24 Rx benzonatate 100 mg capsule 100 mg PO TID PRN cough #20 caps 03/07/24 03/07/24 Rx silver sulfadiazine 1 % topical 1 applic topical DAILY 03/07/24 03/07/24 History cream (SSD) levothyroxine 75 mcg tablet 75 mcg PO DAILY #90 tabs 03/27/24 Rx insulin glargine 100 unit/mL (3 7 unit (0.07 mL) subcut QAM #6 mL 04/04/24 Rx mL) subcutaneous pen (Lantus Solostar U-100 Insulin) lactulose 10 gram/15 mL (15 mL) See Rx Instructions .Route 04/04/24 Rx oral solution .COMPLEX #1,440 mL pantoprazole 40 mg tablet,delayed 40 mg PO QAM #90 tabs 04/18/24 Rx release Allergies Allergy/AdvReac Type Severity Reaction Status Date / Time No Known Allergies Allergy Verified 02/15/24 02:39 Past Med/Surg History Problem List (Updated 05/03/24 @ 08:08 by Enrike Quick PA-C) Ischemic bowel disease (Acute) Acute kidney injury superimposed on stage 4 chronic kidney disease Shock circulatory Acute kidney injury superimposed on stage 3b chronic kidney disease Cirrhosis Hypokalemia Obesity Ischemia, bowel Abdominal pain EMY (acute kidney injury) Diabetes mellitus type 2 in obese Acute hyponatremia (Acute) Hypomagnesemia (Acute) Rhinovirus infection (Acute) Pneumonia (Acute) Wheezing (Acute) SOB (shortness of breath) (Acute) Weakness (Acute) Generalized weakness HTN (hypertension) (Acute) Leukopenia (Acute) Anemia (Acute) Hypomagnesemia (Acute) Acute hepatic encephalopathy (Acute) Fatigue Pancytopenia LLQ abdominal pain Inflammatory arthritis Hypertension (Acute) Slurred speech (Acute) Hyperammonemia (Acute) Altered mental status (Acute) Aortic stenosis Chronic right-sided congestive heart failure History of DVT (deep vein thrombosis) Presence of IVC filter Right leg pain Weakness (Acute) Anticoagulant long-term use (Acute) Hypothyroidism UTI (urinary tract infection) Chronic diastolic heart failure Stage 3b chronic kidney disease Hyperammonemia Cor pulmonale Chronic kidney disease, stage III (moderate) CHF (congestive heart failure) (Acute) Morbid obesity PAF (paroxysmal atrial fibrillation) 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) Diastolic dysfunction Atrial fibrillation with rapid ventricular response Chronic back pain Anemia (Acute) Rectal bleeding Abnormal mammogram of left breast Left breast lump Hematuria Encounter for examination following treatment at hospital Fall (Acute) Diarrhea Lower leg edema Proteinuria Right knee pain Lumbar stenosis with neurogenic claudication MGUS (monoclonal gammopathy of unknown significance) (Chronic ~02/2015) Meningioma (Acute) Vitamin D deficiency (Acute) Pituitary macroadenoma (Acute) Mitral regurgitation (Acute) Microalbuminuria (Acute) Hypercholesterolemia (Acute) Diabetes mellitus with peripheral vascular disease (Acute) Cervical spondylosis (Acute) Thickened endometrium Obesity, diabetes, and hypertension syndrome Bilateral lower extremity edema (Acute) Age-related physical debility Medical History Infective endocarditis Streptococcal bacteremia ROSALES (obstructive sleep apnea) Rectal bleeding Hypomagnesemia Nausea vomiting and diarrhea Dizziness Acute hyperkalemia Encephalopathy acute Nausea & vomiting Rhinovirus Acute on chronic diastolic heart failure Volume overload Lactate blood increase Vomiting and diarrhea Wheezing Weakness DVT (deep venous thrombosis) Elevated troponin Thrombocytopenia Chronic deep vein thrombosis (DVT) Fever Pulmonary embolism 2018 > no known cause > Filter to right groin Diverticular hemorrhage resolved GI bleed none at present Esophageal varices determined by endoscopy Monoclonal gammopathy Osteoarthritis GERD (gastroesophageal reflux disease) Migraine Vertigo Surgical History H/O exploratory laparotomy (04/27/24) p Exploratory Laparotomy(Not Applicable) - Arie Melchor MD, FACS s Bowel Resection, creation of illiostomy(Not Applicable) - Arie Melchor MD, FACS Status post lumbar surgery History of laparoscopic cholecystectomy History of section x3 History of bilateral breast reduction surgery History of dilatation and curettage History of carpal tunnel release of both wrists History of total left knee replacement (TKR) History of total right knee replacement (TKR) History of lumbar spinal fusion hardware in place History of colonoscopy History of esophagogastroduodenoscopy (EGD) History of tooth extraction all teeth History of tonsillectomy History of bilateral cataract extraction Family History Mother Family history of diabetes mellitus Brother Family history of diabetes mellitus 3 brothers Colorectal cancer Myocardial infarction x 2 Father Myocardial infarction Denies family history of Ovarian cancer Prostate cancer Breast cancer Social History Smoking Status: Former smoker Tobacco Type: Cigarettes Age Started Using Tobacco: 15; Age Quit Using Tobacco: 21; Cigarettes Per Day: stopped 55 years ago; Second Hand Exposure: No; Do You Dip or Chew Tobacco: No; Hx Alcohol Use: No Hx Substance Use: No Preferred Language: Mongolian Communication Ability: Impaired Visual Impairment: Limited Hearing Ability: Normal Windows Admin Required: No Beliefs That Will Affect Care: None marital status: / Current Living Situation: Family Current Living Situation Comment: lives with niece Rosalind current occupational status: retired How many Children do You have: 3 Feels Safe at Home: Yes Childhood Exposure to Second-Hand Smoke: Yes Diet: regular caffeine: Yes (tea) during the past year weight has: remained stable Dental Care, Regularly: No Physical Activity Frequency: Does not Exercise Seatbelt Use: always Sunscreen Use: No Do you think of yourself as: straight/heterosexual Gender Identity: Female Assistive Devices: CPAP and Walker Review of Systems A total of 10 systems reviewed and were otherwise negative Physical Exam Vital Signs Vital Signs - 24 hr 04/27/24 07:12 04/27/24 07:35 04/27/24 08:45 Temperature Temperature Source Pulse Rate 63 57 L 63 Pulse Rate from SpO2 Sensor Pulse Rhythm Regular Pulse Strength Normal Respiratory Rate 14 18 Respiratory Effort / Characteristics Non-Labored Spontaneous Respiratory Depth Normal Respiratory Pattern Regular Blood Pressure 106/63 Blood Pressure Mean 77 Blood Pressure Position Lying Pulse Oximetry 99 97 Oxygen Delivery Method Room Air Room Air Sepsis Recent Fever Within 48 Hours No Sepsis New/Unexplained Change in Mental Status N/A Sepsis Action Taken by Nursing No Action Required 04/27/24 08:50 04/27/24 09:33 04/27/24 09:35 Temperature Temperature Source Pulse Rate 63 Pulse Rate from SpO2 Sensor 62 Pulse Rhythm Pulse Strength Respiratory Rate 14 Respiratory Effort / Characteristics Respiratory Depth Respiratory Pattern Blood Pressure 101/56 L 88/51 L Blood Pressure Mean 82 64 Blood Pressure Position Pulse Oximetry 97 Oxygen Delivery Method Room Air Sepsis Recent Fever Within 48 Hours Sepsis New/Unexplained Change in Mental Status Sepsis Action Taken by Nursing 04/27/24 09:48 04/27/24 09:50 Temperature 36.7 C Temperature Source Oral Pulse Rate Pulse Rate from SpO2 Sensor Pulse Rhythm Pulse Strength Respiratory Rate Respiratory Effort / Characteristics Respiratory Depth Respiratory Pattern Blood Pressure 95/43 L Blood Pressure Mean 77 Blood Pressure Position Pulse Oximetry Oxygen Delivery Method Sepsis Recent Fever Within 48 Hours Sepsis New/Unexplained Change in Mental Status Sepsis Action Taken by Nursing General: Well-developed, well-nourished, elderly female, in no acute distress. Lying in bed. Alert. Occasionally slurring her words. Morbidly obese. Poor historian. Skin: Warm and dry with good turgor. No rashes. Ecchymosis present on her abdomen. No intra-articular effusions at her knees or ankles. Postsurgical scars are present on her knees. HEENT: Normocephalic atraumatic. Eyes PERRLA, EOMI. No conjunctiva or scleral injection. Ears TMs intact bilaterally with good light reflexes. No erythema or bulging. No hemotympanum. Canals are patent. Nares patent bilaterally without turbinate enlargement. No significant drainage. No epistaxis. Oropharynx without erythema or exudate. Uvula midline, oral mucosa mildly dry. No lesions present. Dentures are noted. heart: 3/6 systolic ejection murmur noted. No gallops or rubs. Peripheral pulses are 2+. Lungs: Clear to auscultation bilaterally. No crackles, rhonchi, or wheezing. Fair air movement. Abdomen: Morbidly obese. Bowel sounds present x 4 but very infrequent. Soft, Right upper and lower quadrant discomfort with palpation. No suprapubic discomfort. Musculoskeletal: Lower extremity evaluation reveals no obvious asymmetry or deformity. She has trochanteric discomfort and IT band discomfort from origin to insertion with palpation. There is also discomfort with palpation over her quadriceps as well as her lower leg. Logrolling of the hip does not cause any groin pain. Flexion of the hip causes quadriceps pain. Motor function of the upper extremities is unremarkable. Neurologic: Gross sensation is intact across the lower extremities by soft touch. Course Administered Medications Enteral Nutritional Formula (Peptamen 1.5 Polo 1,000 Ml Bag) 1,000 ml OG .See Protocol ARMANDO; Protocol Stop: 05/30/24 10:29 Last Admin: 04/30/24 13:53 Dose: 1,000 ml Documented By: PITA Fentanyl Citrate (Fentanyl Bolus From Bag) 50 mcg IV Q60M PRN PRN Reason: Pain or Agitation Stop: 05/11/24 19:10 Last Admin: 05/02/24 22:00 Dose: 50 mcg Documented By: CF Co-signed By: CHASITY Admin: 05/02/24 21:00 Dose: 50 mcg Documented By: CF Co-signed By: LLP Admin: 05/02/24 20:00 Dose: 50 mcg Documented By: CF Co-signed By: LLP Admin: 05/02/24 11:42 Dose: 50 mcg Documented By: CB Co-signed By: PITA Admin: 05/01/24 06:44 Dose: 50 mcg Documented By: ESG Co-signed By: NMS Admin: 04/30/24 19:30 Dose: 50 mcg Documented By: ESG Co-signed By: TP Admin: 04/30/24 04:33 Dose: 50 mcg Documented By: ESG Co-signed By: TP Pantoprazole Sodium 40 mg/ (Syringe) 10 mls @ 5 mls/min IV BID ARMANDO Stop: 05/27/24 20:59 Last Admin: 05/03/24 08:50 Dose: 5 mls/min Documented By: Admin: 05/02/24 20:12 Dose: 5 mls/min Documented By: Admin: 05/02/24 09:22 Dose: 5 mls/min Documented By: Admin: 05/01/24 20:04 Dose: 5 mls/min Documented By: Admin: 05/01/24 09:59 Dose: 5 mls/min Documented By: Admin: 04/30/24 21:14 Dose: 5 mls/min Documented By: Admin: 04/30/24 08:51 Dose: 5 mls/min Documented By: Admin: 04/29/24 21:40 Dose: 5 mls/min Documented By: Admin: 04/29/24 08:35 Dose: 5 mls/min Documented By: Admin: 04/28/24 21:11 Dose: 5 mls/min Documented By: Admin: 04/28/24 08:17 Dose: 5 mls/min Documented By: Admin: 04/27/24 21:04 Dose: 5 mls/min Documented By: SG Norepinephrine Bitartrate (Levophed/D5w) 4 mg in 250 mls @ 0 mls/hr IV .Q0M ARMANDO; Protocol Stop: 05/27/24 18:59 Last Titration: 05/02/24 07:22 Dose: 0 mcg/kg/min, 0 mls/hr Documented By: PITA Co-signed By: IZA Admin: 05/01/24 10:02 Dose: Not Given Documented By: Titration: 05/01/24 10:00 Dose: 0 mcg/kg/min, 0 mls/hr Documented By: ESG(2) Titration: 05/01/24 08:49 Dose: 0.02 mcg/kg/min, 8.4 mls/hr Documented By: ESG(2) Titration: 05/01/24 06:56 Dose: 0.04 mcg/kg/min, 16.7 mls/hr Documented By: ESG Co-signed By: PITA Titration: 04/30/24 20:58 Dose: 0.02 mcg/kg/min, 8.4 mls/hr Documented By: Admin: 04/30/24 13:10 Dose: Not Given Documented By: ESG(2) Titration: 04/30/24 13:06 Dose: 0 mcg/kg/min, 0 mls/hr Documented By: ESG(2) Admin: 04/30/24 08:22 Dose: 0.02 mcg/kg/min, 8.4 mls/hr Documented By: NMS Co-signed By: AMB Titration: 04/30/24 08:08 Dose: Infused Documented By: NMS Co-signed By: AMB Admin: 04/30/24 07:53 Dose: Not Given Documented By: ESG(2) Titration: 04/30/24 07:03 Dose: 0.02 mcg/kg/min, 8.4 mls/hr Documented By: NMS Co-signed By: ESG Titration: 04/30/24 04:05 Dose: 0.02 mcg/kg/min, 8.4 mls/hr Documented By: Admin: 04/30/24 02:50 Dose: Not Given Documented By: Admin: 04/30/24 02:50 Dose: Not Given Documented By: Titration: 04/30/24 02:36 Dose: 0.04 mcg/kg/min, 16.7 mls/hr Documented By: Titration: 04/29/24 23:03 Dose: 0.06 mcg/kg/min, 25.1 mls/hr Documented By: Titration: 04/29/24 22:00 Dose: 0.08 mcg/kg/min, 33.5 mls/hr Documented By: Admin: 04/29/24 20:24 Dose: 0.1 mcg/kg/min, 41.9 mls/hr Documented By: ESG Co-signed By: CLC Titration: 04/29/24 20:20 Dose: Infused Documented By: ESG Co-signed By: CLC Titration: 04/29/24 19:03 Dose: 0.1 mcg/kg/min, 41.9 mls/hr Documented By: CHUY Co-signed By: ESG Titration: 04/29/24 14:58 Dose: 0.1 mcg/kg/min, 41.9 mls/hr Documented By: ESG(2) Titration: 04/29/24 14:44 Dose: 0.08 mcg/kg/min, 33.5 mls/hr Documented By: ESG(2) Admin: 04/29/24 14:24 Dose: Not Given Documented By: ESG(2) Admin: 04/29/24 14:19 Dose: 0.1 mcg/kg/min, 41.9 mls/hr Documented By: CHUY Co-signed By: EDGARDO(2) Titration: 04/29/24 13:26 Dose: Infused Documented By: Titration: 04/29/24 11:00 Dose: 0.15 mcg/kg/min, 62.8 mls/hr Documented By: Admin: 04/29/24 10:56 Dose: Not Given Documented By: EDGARDO(2) Admin: 04/29/24 10:56 Dose: Not Given Documented By: EDGARDO(2) Titration: 04/29/24 10:35 Dose: 0.17 mcg/kg/min, 71.1 mls/hr Documented By: Admin: 04/29/24 09:34 Dose: 0.19 mcg/kg/min, 79.5 mls/hr Documented By: CHUY Co-signed By: EDGARDO(2) Titration: 04/29/24 09:29 Dose: Infused Documented By: CHUY Co-signed By: EDGARDO(2) Titration: 04/29/24 07:03 Dose: 0.19 mcg/kg/min, 79.5 mls/hr Documented By: CHUY Co-signed By: EDGARDO Admin: 04/29/24 06:20 Dose: 0.19 mcg/kg/min, 79.5 mls/hr Documented By: EDGARDO Co-signed By: MPC Titration: 04/29/24 06:20 Dose: Infused Documented By: EDGARDO Co-signed By: MPC Titration: 04/29/24 05:26 Dose: 0.19 mcg/kg/min, 79.5 mls/hr Documented By: Admin: 04/29/24 03:10 Dose: Not Given Documented By: Admin: 04/29/24 03:10 Dose: Not Given Documented By: Admin: 04/29/24 03:07 Dose: 0.17 mcg/kg/min, 71.1 mls/hr Documented By: EDGARDO Co-signed By: CP Titration: 04/29/24 03:02 Dose: Infused Documented By: EDGARDO Co-signed By: CP Titration: 04/29/24 02:30 Dose: 0.17 mcg/kg/min, 71.1 mls/hr Documented By: Titration: 04/28/24 23:43 Dose: 0.15 mcg/kg/min, 62.8 mls/hr Documented By: ESG Co-signed By: KJL Admin: 04/28/24 23:07 Dose: 0.15 mcg/kg/min, 62.8 mls/hr Documented By: KYLAH Co-signed By: CP Titration: 04/28/24 23:07 Dose: Infused Documented By: KYLAH Co-signed By: CP Titration: 04/28/24 22:04 Dose: 0.15 mcg/kg/min, 62.8 mls/hr Documented By: Admin: 04/28/24 19:59 Dose: 0.17 mcg/kg/min, 71.1 mls/hr Documented By: KYLAH Co-signed By: CP Titration: 04/28/24 18:45 Dose: Infused Documented By: KYLAH Co-signed By: CP Titration: 04/28/24 16:17 Dose: 0.15 mcg/kg/min, 62.8 mls/hr Documented By: Admin: 04/28/24 14:56 Dose: 0.17 mcg/kg/min, 71.1 mls/hr Documented By: KYLAH Co-signed By: MTP Titration: 04/28/24 13:52 Dose: Infused Documented By: KYLAH Co-signed By: MTP Titration: 04/28/24 11:15 Dose: 0.17 mcg/kg/min, 71.1 mls/hr Documented By: Admin: 04/28/24 10:13 Dose: 0.15 mcg/kg/min, 62.8 mls/hr Documented By: CAMILAL Co-signed By: MTP Titration: 04/28/24 09:28 Dose: Infused Documented By: KYLAH Co-signed By: MTP Titration: 04/28/24 08:28 Dose: 0.15 mcg/kg/min, 62.8 mls/hr Documented By: Titration: 04/28/24 07:06 Dose: 0.13 mcg/kg/min, 54.4 mls/hr Documented By: MNM Co-signed By: KYLAH Admin: 04/28/24 06:31 Dose: Not Given Documented By: Titration: 04/28/24 05:30 Dose: 0.13 mcg/kg/min, 54.4 mls/hr Documented By: Titration: 04/28/24 05:15 Dose: 0.15 mcg/kg/min, 62.8 mls/hr Documented By: Titration: 04/28/24 05:06 Dose: Infused Documented By: MNM Co-signed By: CLC Admin: 04/28/24 05:06 Dose: 0.17 mcg/kg/min, 71.1 mls/hr Documented By: MNM Co-signed By: CLC Titration: 04/28/24 02:30 Dose: 0.17 mcg/kg/min, 71.1 mls/hr Documented By: Titration: 04/28/24 02:15 Dose: 0.15 mcg/kg/min, 62.8 mls/hr Documented By: Titration: 04/28/24 02:06 Dose: Infused Documented By: MNM Co-signed By: CP Admin: 04/28/24 02:06 Dose: 0.13 mcg/kg/min, 54.4 mls/hr Documented By: MNM Co-signed By: CP Titration: 04/28/24 01:00 Dose: 0.13 mcg/kg/min, 54.4 mls/hr Documented By: Admin: 04/28/24 00:20 Dose: Not Given Documented By: Titration: 04/28/24 00:15 Dose: 0.11 mcg/kg/min, 46 mls/hr Documented By: Titration: 04/28/24 00:00 Dose: 0.09 mcg/kg/min, 37.7 mls/hr Documented By: Titration: 04/27/24 23:10 Dose: 0.07 mcg/kg/min, 29.3 mls/hr Documented By: Titration: 04/27/24 23:00 Dose: 0.09 mcg/kg/min, 37.7 mls/hr Documented By: Titration: 04/27/24 22:50 Dose: 0.11 mcg/kg/min, 46 mls/hr Documented By: Admin: 04/27/24 22:40 Dose: 0.13 mcg/kg/min, 54.4 mls/hr Documented By: MNM Co-signed By: CLC Titration: 04/27/24 22:40 Dose: Infused Documented By: MNM Co-signed By: CLC Titration: 04/27/24 19:30 Dose: 0.13 mcg/kg/min, 54.4 mls/hr Documented By: MNM Co-signed By: CLC Titration: 04/27/24 19:20 Dose: 0.11 mcg/kg/min, 46 mls/hr Documented By: MNM Co-signed By: CLC Titration: 04/27/24 19:10 Dose: 0.09 mcg/kg/min, 37.7 mls/hr Documented By: MNM Co-signed By: CLC Titration: 04/27/24 19:00 Dose: 0.07 mcg/kg/min, 29.3 mls/hr Documented By: MNM Co-signed By: CLC Admin: 04/27/24 18:30 Dose: 0.05 mcg/kg/min, 20.9 mls/hr Documented By: LAF Co-signed By: JENNA Vasopressin 20 units/ Sodium (Chloride) 101 mls @ 0 mls/hr IV .Q0M ARMANDO Stop: 05/27/24 19:29 Last Infusion: 05/02/24 10:07 Dose: 0 unit/min, 0 mls/hr Documented By: CB Co-signed By: NMS Infusion: 05/02/24 07:22 Dose: 0.04 unit/min, 12.1 mls/hr Documented By: NMS Co-signed By: IZA Admin: 05/02/24 03:56 Dose: 0.04 unit/min, 12.1 mls/hr Documented By: IZA Co-signed By: AMW Infusion: 05/02/24 03:56 Dose: Infused Documented By: IZA Co-signed By: AMW Admin: 05/01/24 20:06 Dose: 0.04 unit/min, 12.1 mls/hr Documented By: IZA Co-signed By: AEV Infusion: 05/01/24 20:06 Dose: Infused Documented By: IZA Co-signed By: AEV Infusion: 05/01/24 19:10 Dose: 0.04 unit/min, 12.1 mls/hr Documented By: NMS Co-signed By: IZA Infusion: 05/01/24 12:00 Dose: 0.04 unit/min, 12.1 mls/hr Documented By: AMBIKAG(2) Co-signed By: PITA Infusion: 05/01/24 10:30 Dose: 0 unit/min, 0 mls/hr Documented By: AMBIKAG(2) Co-signed By: PITA Admin: 05/01/24 10:29 Dose: 0.04 unit/min, 12.1 mls/hr Documented By: PITA Co-signed By: JANELLE Infusion: 05/01/24 10:29 Dose: Infused Documented By: PITA Co-signed By: JANELLE Infusion: 05/01/24 06:56 Dose: 0.04 unit/min, 12.1 mls/hr Documented By: EDGARDO Co-signed By: PITA Admin: 05/01/24 03:09 Dose: 0.04 unit/min, 12.1 mls/hr Documented By: EDGARDO Co-signed By: CLC Infusion: 05/01/24 03:00 Dose: Infused Documented By: EDGARDO Co-signed By: CLC Infusion: 04/30/24 19:05 Dose: 0.04 unit/min, 12.1 mls/hr Documented By: PITA Co-signed By: ESG Admin: 04/30/24 18:39 Dose: 0.04 unit/min, 12.1 mls/hr Documented By: PITA Co-signed By: EDGARDO(2) Infusion: 04/30/24 18:39 Dose: Infused Documented By: PITA Co-signed By: AMBIKAG(2) Admin: 04/30/24 10:33 Dose: 0.04 unit/min, 12.1 mls/hr Documented By: PITA Co-signed By: CB Infusion: 04/30/24 09:28 Dose: Infused Documented By: PITA Co-signed By: CB Infusion: 04/30/24 07:03 Dose: 0.04 unit/min, 12.1 mls/hr Documented By: PITA Co-signed By: AMBIKAG Admin: 04/30/24 01:07 Dose: 0.04 unit/min, 12.1 mls/hr Documented By: EDGARDO Co-signed By: CLC Infusion: 04/30/24 00:53 Dose: Infused Documented By: EDGARDO Co-signed By: CLC Infusion: 04/29/24 19:03 Dose: 0.04 unit/min, 12.1 mls/hr Documented By: CHUY Co-signed By: EDGARDO Admin: 04/29/24 16:32 Dose: 0.04 unit/min, 12.1 mls/hr Documented By: CHUY Co-signed By: EDGARDO(2) Infusion: 04/29/24 16:25 Dose: Infused Documented By: CHUY Co-signed By: AMBIKAG(2) Admin: 04/29/24 08:04 Dose: 0.04 unit/min, 12.1 mls/hr Documented By: CHUY Co-signed By: AMBIKAG(2) Infusion: 04/29/24 08:04 Dose: Infused Documented By: CHUY Co-signed By: ESG(2) Infusion: 04/29/24 07:03 Dose: 0.04 unit/min, 12.1 mls/hr Documented By: CHUY Co-signed By: ESG Admin: 04/28/24 23:58 Dose: 0.04 unit/min, 12.1 mls/hr Documented By: EDGARDO Co-signed By: CP Infusion: 04/28/24 23:58 Dose: Infused Documented By: EDGARDO Co-signed By: CP Infusion: 04/28/24 23:43 Dose: 0.04 unit/min, 12.1 mls/hr Documented By: EDGARDO Co-signed By: KJRodri Admin: 04/28/24 16:38 Dose: 0.04 unit/min, 12.1 mls/hr Documented By: MTP Co-signed By: KJL Infusion: 04/28/24 16:38 Dose: Infused Documented By: MTP Co-signed By: KJL Admin: 04/28/24 08:18 Dose: 0.04 unit/min, 12.1 mls/hr Documented By: CAMILAL Co-signed By: MTP Infusion: 04/28/24 08:18 Dose: Infused Documented By: KYLAH Co-signed By: MTP Infusion: 04/28/24 07:06 Dose: 0.04 unit/min, 12.1 mls/hr Documented By: MNM Co-signed By: KJL Infusion: 04/28/24 04:53 Dose: 0.04 unit/min, 12.1 mls/hr Documented By: MNM Co-signed By: HSM Infusion: 04/27/24 23:35 Dose: 0 unit/min, 0 mls/hr Documented By: MNM Co-signed By: CLC Admin: 04/27/24 19:50 Dose: 0.04 unit/min, 12.1 mls/hr Documented By: SG Co-signed By: CLC Fentanyl Citrate (Fentanyl Citrate) 2,500 mcg in 250 mls @ 7.5 mls/hr IV .[id number] [facility]; Protocol Stop: 05/11/24 19:14 Last Titration: 05/02/24 19:02 Dose: 75 mcg/hr, 7.5 mls/hr Documented By: CF Co-signed By: CB Admin: 05/02/24 15:47 Dose: 75 mcg/hr, 7.5 mls/hr Documented By: PITA Co-signed By: TRAMAINE Titration: 05/02/24 15:47 Dose: Infused Documented By: NMS Co-signed By: JLM Admin: 05/02/24 15:36 Dose: Not Given Documented By: Admin: 05/02/24 15:35 Dose: Not Given Documented By: Admin: 05/02/24 15:35 Dose: Not Given Documented By: Titration: 05/02/24 11:42 Dose: 75 mcg/hr, 7.5 mls/hr Documented By: CB Co-signed By: NMS Titration: 05/02/24 07:22 Dose: 50 mcg/hr, 5 mls/hr Documented By: NMS Co-signed By: IZA Titration: 05/01/24 19:13 Dose: 50 mcg/hr, 5 mls/hr Documented By: NMS Co-signed By: IZA Admin: 05/01/24 12:38 Dose: Not Given Documented By: ESG(2) Titration: 05/01/24 06:56 Dose: 50 mcg/hr, 5 mls/hr Documented By: ESG Co-signed By: NMS Titration: 04/30/24 20:58 Dose: 50 mcg/hr, 5 mls/hr Documented By: ESG Co-signed By: [id number] Titration: 04/30/24 19:05 Dose: 25 mcg/hr, 2.5 mls/hr Documented By: NMS Co-signed By: ESG Admin: 04/30/24 15:13 Dose: Not Given Documented By: ESG(2) Admin: 04/30/24 13:55 Dose: 25 mcg/hr, 2.5 mls/hr Documented By: NMS Co-signed By: ESG(2) Titration: 04/30/24 10:15 Dose: Infused Documented By: ESG(2) Co-signed By: NMS Titration: 04/30/24 09:00 Dose: Infused Documented By: ESG(2) Co-signed By: NMS Admin: 04/30/24 07:53 Dose: Not Given Documented By: ESG(2) Admin: 04/30/24 07:52 Dose: Not Given Documented By: ESG(2) Titration: 04/30/24 07:03 Dose: Infused Documented By: NMS Co-signed By: ESG Titration: 04/30/24 04:10 Dose: 100 mcg/hr, 10 mls/hr Documented By: ESG Co-signed By: TP Titration: 04/29/24 20:20 Dose: 75 mcg/hr, 7.5 mls/hr Documented By: ESG Co-signed By: CLC Titration: 04/29/24 07:03 Dose: 125 mcg/hr, 12.5 mls/hr Documented By: CHUY Co-signed By: ESG Admin: 04/29/24 06:16 Dose: 125 mcg/hr, 12.5 mls/hr Documented By: ESG Co-signed By: CP Titration: 04/29/24 06:13 Dose: Infused Documented By: ESG Co-signed By: CP Titration: 04/28/24 23:43 Dose: 125 mcg/hr, 12.5 mls/hr Documented By: ESG Co-signed By: KJL Admin: 04/28/24 10:12 Dose: 125 mcg/hr, 12.5 mls/hr Documented By: KJL Co-signed By: MTP Titration: 04/28/24 10:12 Dose: Infused Documented By: KJL Co-signed By: MTP Titration: 04/28/24 07:06 Dose: 125 mcg/hr, 12.5 mls/hr Documented By: MNM Co-signed By: KJL Titration: 04/27/24 23:50 Dose: 125 mcg/hr, 12.5 mls/hr Documented By: MNM Co-signed By: CLC Titration: 04/27/24 22:50 Dose: 100 mcg/hr, 10 mls/hr Documented By: MNM Co-signed By: CLC Titration: 04/27/24 21:50 Dose: 75 mcg/hr, 7.5 mls/hr Documented By: JENNA Co-signed By: CLC Titration: 04/27/24 20:50 Dose: 50 mcg/hr, 5 mls/hr Documented By: MIGUEL A Co-signed By: SKS Admin: 04/27/24 19:43 Dose: 25 mcg/hr, 2.5 mls/hr Documented By: SG Co-signed By: CLC Levothyroxine Sodium 50 mcg/ (Syringe) 2.5 mls @ 2 mls/min IV Q72H ARMANDO Stop: 05/29/24 10:14 Last Admin: 05/02/24 10:42 Dose: 2 mls/min Documented By: Admin: 04/29/24 11:39 Dose: 2 mls/min Documented By: CHUY Piperacillin Sod/Tazobactam Sod (Zosyn) 4.5 gm in 100 mls @ 25 mls/hr IV Q12H ARMANDO; Protocol Stop: 05/03/24 23:59 Last Infusion: 05/03/24 12:09 Dose: Infused Documented By: Admin: 05/03/24 04:43 Dose: 25 mls/hr Documented By: Infusion: 05/02/24 20:24 Dose: Infused Documented By: Admin: 05/02/24 15:50 Dose: 25 mls/hr Documented By: Infusion: 05/02/24 08:03 Dose: Infused Documented By: Admin: 05/02/24 03:56 Dose: 25 mls/hr Documented By: Infusion: 05/01/24 20:45 Dose: Infused Documented By: Admin: 05/01/24 16:45 Dose: 25 mls/hr Documented By: Infusion: 05/01/24 08:10 Dose: Infused Documented By: Admin: 05/01/24 04:13 Dose: 25 mls/hr Documented By: Infusion: 04/30/24 20:39 Dose: Infused Documented By: Admin: 04/30/24 15:46 Dose: 25 mls/hr Documented By: Infusion: 04/30/24 08:35 Dose: Infused Documented By: Admin: 04/30/24 04:34 Dose: 25 mls/hr Documented By: Infusion: 04/29/24 21:54 Dose: Infused Documented By: Admin: 04/29/24 17:59 Dose: 25 mls/hr Documented By: CHUY Insulin Human Regular 250 (units/ Sodium Chloride) 250 mls @ 2 mls/hr IV .Q24H [facility]; Protocol Stop: 05/29/24 13:59 Last Titration: 05/02/24 20:07 Dose: 2 units/hr, 2 mls/hr Documented By: CF Co-signed By: LLP Titration: 05/02/24 18:04 Dose: 2 units/hr, 2 mls/hr Documented By: NMS Co-signed By: JLM Titration: 05/02/24 16:17 Dose: 2 units/hr, 2 mls/hr Documented By: NMS Co-signed By: CB Titration: 05/02/24 14:52 Dose: 2 units/hr, 2 mls/hr Documented By: NMS Co-signed By: CB Admin: 05/02/24 14:35 Dose: Not Given Documented By: Titration: 05/02/24 14:07 Dose: 2 units/hr, 2 mls/hr Documented By: CB Co-signed By: AJB Titration: 05/02/24 13:06 Dose: 2 units/hr, 2 mls/hr Documented By: NMS Co-signed By: CB Admin: 05/02/24 12:59 Dose: 1.7 units/hr, 1.7 mls/hr Documented By: CB Co-signed By: NMS Titration: 05/02/24 12:59 Dose: Infused Documented By: CB Co-signed By: NMS Titration: 05/02/24 12:22 Dose: 1.7 units/hr, 1.7 mls/hr Documented By: NMS Co-signed By: CB Titration: 05/02/24 10:17 Dose: 1.4 units/hr, 1.4 mls/hr Documented By: NMS Co-signed By: CB Titration: 05/02/24 08:06 Dose: 1.4 units/hr, 1.4 mls/hr Documented By: NMS Co-signed By: CB Titration: 05/02/24 07:22 Dose: 1.4 units/hr, 1.4 mls/hr Documented By: NMS Co-signed By: IZA Titration: 05/01/24 19:10 Dose: 1.4 units/hr, 1.4 mls/hr Documented By: NMS Co-signed By: IZA Titration: 05/01/24 18:54 Dose: 1.4 units/hr, 1.4 mls/hr Documented By: NMS Co-signed By: ESG(2) Titration: 05/01/24 17:48 Dose: 1.4 units/hr, 1.4 mls/hr Documented By: NMS Co-signed By: ESG(2) Titration: 05/01/24 16:50 Dose: 1.4 units/hr, 1.4 mls/hr Documented By: NMS Co-signed By: ESG(2) Titration: 05/01/24 15:38 Dose: 1.4 units/hr, 1.4 mls/hr Documented By: NMS Co-signed By: ESG(2) Titration: 05/01/24 13:27 Dose: 0 units/hr, 0 mls/hr Documented By: NMS Co-signed By: ESG(2) Titration: 05/01/24 12:31 Dose: 0 units/hr, 0 mls/hr Documented By: ESG(2) Co-signed By: NMS Titration: 05/01/24 10:02 Dose: 2.8 units/hr, 2.8 mls/hr Documented By: NMS Co-signed By: ESG(2) Titration: 05/01/24 08:45 Dose: 2.8 units/hr, 2.8 mls/hr Documented By: NMS Co-signed By: ESG(2) Titration: 05/01/24 06:56 Dose: 2.8 units/hr, 2.8 mls/hr Documented By: ESG Co-signed By: NMS Titration: 05/01/24 04:10 Dose: 2.8 units/hr, 2.8 mls/hr Documented By: ESG Co-signed By: CP Titration: 05/01/24 03:12 Dose: 2.8 units/hr, 2.8 mls/hr Documented By: ESG Co-signed By: CLC Titration: 05/01/24 02:08 Dose: 2.8 units/hr, 2.8 mls/hr Documented By: ESG Co-signed By: TP Titration: 05/01/24 01:08 Dose: 2.8 units/hr, 2.8 mls/hr Documented By: ESG Co-signed By: [id number] Titration: 05/01/24 00:15 Dose: 2.8 units/hr, 2.8 mls/hr Documented By: ESG Co-signed By: [id number] Admin: 04/30/24 23:57 Dose: Not Given Documented By: Titration: 04/30/24 23:16 Dose: 2.8 units/hr, 2.8 mls/hr Documented By: ESG Co-signed By: [id number] Titration: 04/30/24 22:13 Dose: 3.5 units/hr, 3.5 mls/hr Documented By: ESG Co-signed By: [id number] Titration: 04/30/24 20:46 Dose: 4.4 units/hr, 4.4 mls/hr Documented By: ESG Co-signed By: [id number] Titration: 04/30/24 07:03 Dose: 0 units/hr, 0 mls/hr Documented By: PITA Co-signed By: ESG Titration: 04/30/24 02:28 Dose: 0 units/hr, 0 mls/hr Documented By: ESG Co-signed By: CLC Titration: 04/30/24 01:20 Dose: 2.5 units/hr, 2.5 mls/hr Documented By: EDGARDO Co-signed By: CP Titration: 04/29/24 19:03 Dose: 4.2 units/hr, 4.2 mls/hr Documented By: CHUY Co-signed By: EDGARDO Admin: 04/29/24 14:23 Dose: 4.2 units/hr, 4.2 mls/hr Documented By: CHUY Co-signed By: SHO Bumetanide 2 mg/ Syringe 8 mls @ 4 mls/min IV BID@0900,1700 ARMANDO Stop: 05/30/24 08:59 Last Admin: 05/03/24 08:51 Dose: 4 mls/min Documented By: Admin: 05/02/24 15:51 Dose: 4 mls/min Documented By: Admin: 05/02/24 09:21 Dose: 4 mls/min Documented By: Admin: 05/01/24 16:47 Dose: 4 mls/min Documented By: Admin: 05/01/24 09:59 Dose: 4 mls/min Documented By: Admin: 04/30/24 15:46 Dose: 4 mls/min Documented By: Admin: 04/30/24 08:53 Dose: 4 mls/min Documented By: PITA Potassium Chloride (K Gerard / Wtr) 20 meq in 100 mls @ 50 mls/hr IV Q2H [facility]ANDO Stop: 05/03/24 14:14 Last Admin: 05/03/24 12:34 Dose: 50 mls/hr Documented By: MTP Co-signed By: RELL Infusion: 05/03/24 12:34 Dose: Infused Documented By: MTP Co-signed By: RELL Admin: 05/03/24 11:29 Dose: 50 mls/hr Documented By: MTP Co-signed By: RELL Infusion: 05/03/24 10:43 Dose: Infused Documented By: MTP Co-signed By: RELL Admin: 05/03/24 08:43 Dose: 50 mls/hr Documented By: MTP Co-signed By: RUBEN Insulin Aspart (Insulin Aspart Per Unit Charge) 0 units SC Q6 ARMANDO Stop: 06/02/24 11:59 Last Admin: 05/03/24 12:29 Dose: Not Given Documented By: MTP Midodrine (Midodrine Hcl 2.5 Mg Tab) 5 mg PO TID@0800,1200,1700 ARMANDO Stop: 05/31/24 11:59 Last Admin: 05/02/24 15:51 Dose: 5 mg Documented By: Admin: 05/02/24 12:14 Dose: 5 mg Documented By: Admin: 05/02/24 09:20 Dose: 5 mg Documented By: Admin: 05/01/24 16:46 Dose: 5 mg Documented By: Admin: 05/01/24 10:31 Dose: 5 mg Documented By: PITA Octreotide Acetate (Octreotide Acetate 100 Mcg/Ml Vial) 100 mcg SQ Q8H ARMANDO Stop: 05/31/24 08:59 Last Admin: 05/03/24 10:49 Dose: 100 mcg Documented By: Admin: 05/03/24 03:11 Dose: 100 mcg Documented By: Admin: 05/02/24 15:53 Dose: 100 mcg Documented By: Admin: 05/02/24 09:31 Dose: 100 mcg Documented By: Admin: 05/02/24 01:21 Dose: 100 mcg Documented By: Admin: 05/01/24 16:45 Dose: 100 mcg Documented By: Admin: 05/01/24 10:28 Dose: 100 mcg Documented By: PITA Sterile Water (Tube Feeding Water Flush) 30 ml OG Q4H ARMANDO Stop: 05/30/24 10:29 Last Admin: 05/03/24 10:50 Dose: 30 ml Documented By: Admin: 05/03/24 06:05 Dose: 30 ml Documented By: Admin: 05/03/24 02:51 Dose: 30 ml Documented By: Admin: 05/02/24 23:30 Dose: 30 ml Documented By: Admin: 05/02/24 18:12 Dose: 30 ml Documented By: Admin: 05/02/24 15:20 Dose: 30 ml Documented By: Admin: 05/02/24 10:17 Dose: Not Given Documented By: Admin: 05/02/24 05:23 Dose: 30 ml Documented By: Admin: 05/02/24 03:08 Dose: 30 ml Documented By: Admin: 05/01/24 22:40 Dose: 30 ml Documented By: Admin: 05/01/24 18:53 Dose: 30 ml Documented By: Admin: 05/01/24 12:37 Dose: 30 ml Documented By: ESG(2) Admin: 05/01/24 10:02 Dose: 30 ml Documented By: Admin: 05/01/24 07:16 Dose: 30 ml Documented By: Admin: 05/01/24 02:22 Dose: 30 ml Documented By: Admin: 04/30/24 22:12 Dose: 30 ml Documented By: Admin: 04/30/24 18:40 Dose: 30 ml Documented By: Admin: 04/30/24 15:42 Dose: Not Given Documented By: Admin: 04/30/24 13:53 Dose: 30 ml Documented By: PITA Discontinued Medications Bupivacaine HCl (Bupivacaine 0.5 % 5 Mg/1 Ml Mpf 30ml Vial) Confirm Administered Dose 30 ml .ROUTE .STK-MED ONE Stop: 04/27/24 13:26 Last Admin: 04/27/24 17:57 Dose: Not Given Documented By: BEW Fentanyl Citrate (Fentanyl Citrate 2,500 Mcg/250 Ml Bag) Confirm Administered Dose 2,500 mcg IV .STK-MED ONE Stop: 04/27/24 19:14 Last Admin: 04/27/24 19:50 Dose: Not Given Documented By: MIGUEL A Furosemide (Furosemide 40 Mg/4 Ml Vial) 40 mg IV ONE ONE Stop: 04/28/24 19:26 Last Admin: 04/28/24 19:30 Dose: 40 mg Documented By: KYLAH Gelatin (Gelatin Sponge Sz 100) Confirm Administered Dose 1 each .ROUTE .STK-MED ONE Stop: 04/27/24 16:50 Last Admin: 04/27/24 17:56 Dose: 1 each Documented By: ABBIE Heparin Sodium (Beef Lung) (Heparin 10 Unit/Ml 5 Ml Flush) Confirm Administered Dose 15 ml FLUSH .STK-MED ONE Stop: 04/30/24 21:20 Last Admin: 04/30/24 21:25 Dose: 5 ml Documented By: EDGARDO Acetaminophen (Ofirmev) 1,000 mg in 100 mls @ 400 mls/hr IV Q8H PRN PRN Reason: Pain Stop: 04/30/24 08:18 Last Infusion: 04/27/24 09:09 Dose: Infused Documented By: Admin: 04/27/24 08:43 Dose: 400 mls/hr Documented By: KENYA Piperacillin Sod/Tazobactam Sod (Zosyn) 4.5 gm in 100 mls @ 200 mls/hr IV NOW ONE; Protocol Stop: 04/27/24 10:02 Last Infusion: 04/27/24 10:47 Dose: Infused Documented By: Admin: 04/27/24 09:46 Dose: 200 mls/hr Documented By: KENYA Potassium Chloride/Sodium Chloride (Normal Saline W/20 Meq Kcl) 20 meq in 1,000 mls @ 100 mls/hr IV .Q10H [facility]O Stop: 04/27/24 20:30 Last Admin: 04/28/24 00:14 Dose: Not Given Documented By: Infusion: 04/27/24 20:31 Dose: Infused Documented By: MIGUEL A Admin: 04/27/24 10:22 Dose: 100 mls/hr Documented By: KENYA Piperacillin Sod/Tazobactam Sod (Zosyn) 4.5 gm in 100 mls @ 25 mls/hr IV Q8H [facility]; Protocol Stop: 05/07/24 17:59 Last Infusion: 04/29/24 10:15 Dose: Infused Documented By: EDGARDO(2) Admin: 04/29/24 05:26 Dose: 25 mls/hr Documented By: Infusion: 04/29/24 00:57 Dose: Infused Documented By: Admin: 04/28/24 20:41 Dose: 25 mls/hr Documented By: Infusion: 04/28/24 16:46 Dose: Infused Documented By: Admin: 04/28/24 12:42 Dose: 25 mls/hr Documented By: Infusion: 04/28/24 08:56 Dose: Infused Documented By: Admin: 04/28/24 04:56 Dose: 25 mls/hr Documented By: Infusion: 04/28/24 00:19 Dose: Infused Documented By: Admin: 04/27/24 20:53 Dose: 25 mls/hr Documented By: MIGUEL A Potassium Chloride/Sodium Chloride (Normal Saline W/20 Meq Kcl) 20 meq in 1,000 mls @ 100 mls/hr IV .Q10H ARMANDO Stop: 05/27/24 18:14 Last Infusion: 04/28/24 00:16 Dose: Infused Documented By: Admin: 04/27/24 19:15 Dose: 100 mls/hr Documented By: JENNA Propofol (Diprivan) 1,000 mg in 100 mls @ 13.392 mls/hr IV .Q7H29M ARMANDO; Protocol Stop: 04/30/24 19:14 Last Admin: 04/27/24 23:43 Dose: Not Given Documented By: JENNA Potassium Chloride (K Gerard / Wtr) 20 meq in 100 mls @ 50 mls/hr IV ONE ONE Stop: 04/27/24 21:59 Last Infusion: 04/27/24 23:09 Dose: Infused Documented By: JENNA Co-signed By: MIGUEL A Admin: 04/27/24 20:10 Dose: 50 mls/hr Documented By: MIGUEL A Co-signed By: JENNA Midazolam HCl (Versed) 125 mg in 250 mls @ 3 mls/hr IV .[id number] [facility]ANDO; Protocol Stop: 05/27/24 20:14 Last Titration: 04/30/24 14:14 Dose: Infused Documented By: NMS Co-signed By: ESG(2) Titration: 04/30/24 08:29 Dose: 0 mg/hr, 0 mls/hr Documented By: NMS Co-signed By: ESG(2) Titration: 04/30/24 07:03 Dose: 1.5 mg/hr, 3 mls/hr Documented By: NMS Co-signed By: ESG Titration: 04/30/24 04:34 Dose: 1.5 mg/hr, 3 mls/hr Documented By: ESG Co-signed By: CLC Titration: 04/30/24 04:10 Dose: 1 mg/hr, 2 mls/hr Documented By: ESG Co-signed By: TP Titration: 04/29/24 19:03 Dose: 0.25 mg/hr, 0.5 mls/hr Documented By: CHUY Co-signed By: ESG Titration: 04/29/24 09:35 Dose: 0.5 mg/hr, 1 mls/hr Documented By: CHUY Co-signed By: ESG(2) Titration: 04/29/24 07:03 Dose: 1 mg/hr, 2 mls/hr Documented By: CHUY Co-signed By: ESG Titration: 04/29/24 06:16 Dose: 1 mg/hr, 2 mls/hr Documented By: ESG Co-signed By: MPC Titration: 04/29/24 00:57 Dose: 1.5 mg/hr, 3 mls/hr Documented By: ESG Co-signed By: MPC Titration: 04/28/24 23:43 Dose: 2 mg/hr, 4 mls/hr Documented By: ESG Co-signed By: KJL Titration: 04/28/24 07:06 Dose: 2 mg/hr, 4 mls/hr Documented By: MNM Co-signed By: KJL Titration: 04/27/24 21:09 Dose: 2 mg/hr, 4 mls/hr Documented By: SG Co-signed By: SKS Titration: 04/27/24 21:07 Dose: 2 mg/hr, 4 mls/hr Documented By: SG Co-signed By: SKS Admin: 04/27/24 20:11 Dose: 1 mg/hr, 2 mls/hr Documented By: SG Co-signed By: JENNA Prothrombin Complex Concent ( (Human) 2,000 units/ Syringe) 80 mls @ 10 mls/min IV NOW ONE; Protocol Stop: 04/27/24 21:07 Last Admin: 04/27/24 20:54 Dose: 10 mls/min Documented By: MIGUEL A Parenteral Electrolytes (Plasma-Lyte A Ph 7.4) 1,000 mls @ 80 mls/hr IV .[id number] ARMANDO Stop: 05/27/24 20:59 Last Infusion: 04/28/24 23:09 Dose: Infused Documented By: Admin: 04/28/24 16:38 Dose: 125 mls/hr Documented By: Infusion: 04/28/24 16:38 Dose: Infused Documented By: Admin: 04/28/24 09:20 Dose: 125 mls/hr Documented By: Infusion: 04/28/24 09:04 Dose: Infused Documented By: Admin: 04/28/24 01:04 Dose: 125 mls/hr Documented By: Infusion: 04/28/24 01:04 Dose: Infused Documented By: Admin: 04/27/24 20:56 Dose: 125 mls/hr Documented By: MIGUEL A Magnesium Sulfate/Dextrose (Magnesium Sulfate / D5w) 1 gm in 100 mls @ 50 mls/hr IV Q2H [facility] Stop: 04/28/24 06:29 Last Infusion: 04/28/24 06:50 Dose: Infused Documented By: Admin: 04/28/24 04:44 Dose: 50 mls/hr Documented By: Infusion: 04/28/24 04:44 Dose: Infused Documented By: Admin: 04/28/24 02:44 Dose: 50 mls/hr Documented By: Infusion: 04/28/24 02:43 Dose: Infused Documented By: Admin: 04/28/24 00:43 Dose: 50 mls/hr Documented By: Infusion: 04/28/24 00:43 Dose: Infused Documented By: Admin: 04/27/24 23:13 Dose: 50 mls/hr Documented By: JENNA Potassium Chloride (K Gerard / Wtr) 20 meq in 100 mls @ 50 mls/hr IV Q2H ARMANDO Stop: 04/28/24 04:29 Last Infusion: 04/28/24 05:03 Dose: Infused Documented By: JENNA Co-signed By: CLC Admin: 04/28/24 02:06 Dose: 50 mls/hr Documented By: JENNA Co-signed By: CP Infusion: 04/28/24 02:06 Dose: Infused Documented By: MNKrish Co-signed By: CP Admin: 04/28/24 00:16 Dose: 50 mls/hr Documented By: MNKrish Co-signed By: CLC Infusion: 04/28/24 00:16 Dose: Infused Documented By: MNKrish Co-signed By: CLC Admin: 04/27/24 22:39 Dose: 50 mls/hr Documented By: JENNA Co-signed By: CLC Calcium Chloride 1,000 mg/ (Dextrose) 60 mls @ 240 mls/hr IV NOW STA Stop: 04/27/24 22:35 Last Infusion: 04/27/24 23:28 Dose: Infused Documented By: Admin: 04/27/24 23:08 Dose: 240 mls/hr Documented By: JENNA Sodium Bicarbonate 150 meq/ (Sterile Water) 1,150 mls @ 115 mls/hr IV .Q10H ARMANDO Stop: 05/29/24 05:59 Last Infusion: 04/30/24 07:03 Dose: Infused Documented By: Infusion: 04/30/24 06:28 Dose: 0 mls/hr Documented By: Admin: 04/30/24 02:36 Dose: 115 mls/hr Documented By: Infusion: 04/30/24 02:31 Dose: Infused Documented By: Admin: 04/29/24 16:31 Dose: 115 mls/hr Documented By: Infusion: 04/29/24 16:25 Dose: Infused Documented By: Admin: 04/29/24 06:25 Dose: 115 mls/hr Documented By: EDGARDO Hydrocortisone Sodium (Succinate 100 mg/ Syringe) 2 mls @ 4 mls/min IV NOW STA Stop: 04/29/24 08:34 Last Admin: 04/29/24 09:35 Dose: 4 mls/min Documented By: CHUY Bumetanide 2 mg/ Syringe 8 mls @ 4 mls/min IV BID@0900,1700 ARMANDO Stop: 04/29/24 10:31 Last Admin: 04/29/24 11:39 Dose: 4 mls/min Documented By: CHUY Hydrocortisone Sodium (Succinate 50 mg/ Syringe) 1 mls @ 4 mls/min IV Q6H ARMANDO Stop: 05/29/24 15:59 Last Admin: 05/01/24 04:02 Dose: 4 mls/min Documented By: Admin: 04/30/24 22:12 Dose: 4 mls/min Documented By: Admin: 04/30/24 15:45 Dose: 4 mls/min Documented By: Admin: 04/30/24 08:51 Dose: 4 mls/min Documented By: Admin: 04/30/24 04:06 Dose: 4 mls/min Documented By: Admin: 04/29/24 21:55 Dose: 4 mls/min Documented By: Admin: 04/29/24 16:44 Dose: 4 mls/min Documented By: CHUY Potassium Chloride (K Gerard / Wtr) 20 meq in 100 mls @ 50 mls/hr IV Q2H ARMANDO Stop: 04/30/24 12:14 Last Infusion: 04/30/24 12:31 Dose: Infused Documented By: PITA Co-signed By: EDGARDO(2) Admin: 04/30/24 10:21 Dose: 50 mls/hr Documented By: PITA Co-signed By: EDGARDO(2) Infusion: 04/30/24 10:21 Dose: Infused Documented By: PITA Co-signed By: EDGARDO(2) Admin: 04/30/24 08:50 Dose: 50 mls/hr Documented By: PITA Co-signed By: EDGARDO(2) Calcium Gluconate () 1,000 mg in 60 mls @ 240 mls/hr IV NOW STA Stop: 04/30/24 10:10 Last Infusion: 04/30/24 11:34 Dose: Infused Documented By: EDGARDO(2) Admin: 04/30/24 11:12 Dose: 240 mls/hr Documented By: PITA Bumetanide 2 mg/ Syringe 8 mls @ 4 mls/min IV ONE ONE Stop: 05/01/24 00:16 Last Admin: 05/01/24 00:24 Dose: 4 mls/min Documented By: EDGARDO Albumin Human (Albumin 25%) 25 gm in 100 mls @ 50 mls/hr IV Q6H [facility]O Stop: 05/03/24 08:59 Last Infusion: 05/03/24 05:18 Dose: Infused Documented By: Admin: 05/03/24 03:14 Dose: 50 mls/hr Documented By: Infusion: 05/02/24 22:30 Dose: Infused Documented By: Admin: 05/02/24 20:11 Dose: 50 mls/hr Documented By: Infusion: 05/02/24 17:33 Dose: Infused Documented By: Admin: 05/02/24 15:20 Dose: 50 mls/hr Documented By: Infusion: 05/02/24 11:29 Dose: Infused Documented By: Admin: 05/02/24 09:21 Dose: 50 mls/hr Documented By: Infusion: 05/02/24 05:08 Dose: Infused Documented By: Admin: 05/02/24 03:08 Dose: 50 mls/hr Documented By: Infusion: 05/01/24 22:05 Dose: Infused Documented By: Admin: 05/01/24 20:05 Dose: 50 mls/hr Documented By: Infusion: 05/01/24 17:40 Dose: Infused Documented By: ESG(2) Admin: 05/01/24 15:41 Dose: 50 mls/hr Documented By: Infusion: 05/01/24 12:32 Dose: Infused Documented By: ESG(2) Admin: 05/01/24 09:58 Dose: 50 mls/hr Documented By: PITA Hydrocortisone Sodium (Succinate 50 mg/ Syringe) 1 mls @ 4 mls/min IV Q8H ARMANDO Stop: 05/29/24 15:59 Last Admin: 05/03/24 03:11 Dose: 4 mls/min Documented By: Admin: 05/02/24 20:09 Dose: 4 mls/min Documented By: Admin: 05/02/24 12:14 Dose: 4 mls/min Documented By: Admin: 05/02/24 03:55 Dose: 4 mls/min Documented By: Admin: 05/01/24 20:19 Dose: 4 mls/min Documented By: Admin: 05/01/24 10:02 Dose: 4 mls/min Documented By: PITA Insulin Aspart (Insulin Aspart Per Unit Charge) 0 units SC Q4 ARMANDO Stop: 05/28/24 00:00 Last Admin: 04/29/24 13:07 Dose: 5 units Documented By: CHUY Co-signed By: EDGARDO(2) Admin: 04/29/24 09:55 Dose: 5 units Documented By: CHUY Co-signed By: EDGARDO(2) Admin: 04/29/24 04:12 Dose: 2 units Documented By: EDGARDO Co-signed By: MASSIEL Admin: 04/29/24 00:30 Dose: 3 units Documented By: EDGARDO Co-signed By: [id number] Admin: 04/28/24 20:41 Dose: 2 units Documented By: KYLAH Co-signed By: NOEMÍ Admin: 04/28/24 16:37 Dose: 2 units Documented By: SHO Co-signed By: KYLAH Admin: 04/28/24 12:50 Dose: 2 units Documented By: KYLAH Co-signed By: UZMA Admin: 04/28/24 08:17 Dose: 1 units Documented By: KYLAH Co-signed By: SHO Admin: 04/28/24 05:06 Dose: 1 units Documented By: JENNA Co-signed By: PB Admin: 04/28/24 00:25 Dose: 1 units Documented By: JENNA Co-signed By: MIGUEL A Insulin Aspart (Insulin Aspart Per Unit Charge) 0 units SC ACHS ARMANDO Stop: 05/29/24 16:29 Last Admin: 05/01/24 09:07 Dose: Not Given Documented By: EDGARDO(2) Admin: 04/30/24 20:59 Dose: Not Given Documented By: EDGARDO Co-signed By: [id number] Admin: 04/30/24 16:58 Dose: Not Given Documented By: EDGARDO(2) Admin: 04/30/24 12:07 Dose: Not Given Documented By: EDGARDO(2) Admin: 04/30/24 07:53 Dose: Not Given Documented By: EDGARDO(2) Admin: 04/29/24 21:40 Dose: Not Given Documented By: Admin: 04/29/24 16:44 Dose: Not Given Documented By: CUHY Insulin Aspart (Insulin Aspart Per Unit Charge) 0 units SC Q6 ARMANDO Stop: 05/29/24 16:29 Last Admin: 05/03/24 05:18 Dose: Not Given Documented By: Admin: 05/03/24 01:38 Dose: Not Given Documented By: Admin: 05/02/24 18:11 Dose: Not Given Documented By: Admin: 05/02/24 14:04 Dose: Not Given Documented By: Admin: 05/02/24 05:22 Dose: Not Given Documented By: Admin: 05/02/24 01:19 Dose: Not Given Documented By: Admin: 05/01/24 18:49 Dose: Not Given Documented By: Admin: 05/01/24 12:31 Dose: Not Given Documented By: ESG(2) Insulin Glargine (Lantus Per Unit Charge) 10 units SC NOW ONE Stop: 05/03/24 10:46 Last Admin: 05/03/24 10:50 Dose: 10 units Documented By: MTP Co-signed By: WS Insulin Human Regular (Novolin-R Bolus From Bag) 4.5 units IV ONE ONE Stop: 04/30/24 20:38 Last Admin: 04/30/24 20:58 Dose: 4.5 units Documented By: ESG Co-signed By: [id number] Midazolam HCl (Midazolam Hcl 125mg/250ml D5w) Confirm Administered Dose 125 mg IV .STK-MED ONE Stop: 04/27/24 19:15 Last Admin: 04/27/24 19:50 Dose: Not Given Documented By: SG Miscellaneous (Surgicel Absorb Hemostat 2in X 14in) 1 each TOP ONCE ONE Stop: 04/27/24 17:58 Last Admin: 04/27/24 17:57 Dose: 1 each Documented By: SSR Morphine Sulfate (Morphine Sulfate 4 Mg/Ml 1 Ml Carp\\Vial) 4 mg IV NOW STA Stop: 04/27/24 08:20 Last Admin: 04/27/24 08:44 Dose: 4 mg Documented By: KMO Norepinephrine Bitartrate (Norepinephrine/D5w 4 Mg/250 Ml) Confirm Administered Dose 4 mg IV .STK-MED ONE Stop: 04/27/24 18:25 Last Admin: 04/27/24 19:13 Dose: Not Given Documented By: LAF Ondansetron HCl (Ondansetron Inj 2 Mg/Ml 2 Ml Vial) 4 mg IV NOW STA Stop: 04/27/24 08:20 Last Admin: 04/27/24 08:44 Dose: 4 mg Documented By: KMO Potassium Chloride/Sodium Chloride (Nss+Kcl 20 Meq 1000ml) Confirm Administered Dose 20 meq IV .STK-MED ONE Stop: 04/27/24 09:46 Last Admin: 04/27/24 09:51 Dose: Not Given Documented By: KMO Sodium Bicarbonate (Sodium Bicarb 8.4% Inj 50 Meq/50 Ml Syr) 50 meq IV NOW STA Stop: 04/27/24 19:14 Last Admin: 04/27/24 19:41 Dose: 50 meq Documented By: SG Sodium Bicarbonate (Sodium Bicarb 8.4% Inj 50 Meq/50 Ml Syr) 50 meq IV NOW STA Stop: 04/27/24 19:15 Last Admin: 04/27/24 19:41 Dose: 50 meq Documented By: SG Sodium Bicarbonate (Sodium Bicarb 8.4% Inj 50 Meq/50 Ml Syr) Confirm Administered Dose 100 meq IV .STK-MED ONE Stop: 04/27/24 19:18 Last Admin: 04/27/24 19:46 Dose: Not Given Documented By: SG Sodium Bicarbonate (Sodium Bicarb 8.4% Inj 50 Meq/50 Ml Syr) 50 meq IV NOW STA Stop: 04/29/24 10:05 Last Admin: 04/29/24 10:25 Dose: 50 meq Documented By: CHUY Medical Decision Making Differential Diagnosis Hip DJD, lumbar radiculopathy, cholecystitis, appendicitis, colitis, ischemic bowel, muscle strain, kidney stones Medical Records Attestation: I reviewed the patient's medical records. Home Medications Current Medication List: was personally reviewed by me Laboratory Data CBC obtained today shows a white count of 7.06. H&H of 10.5 and 32.5. Low platelets at 127,000. PRP shows sodium 139, potassium 3.1, chloride 115. BUN of 56 with creatinine 2.69. This is consistent with her previous values. Glucose today 136. Lactate 1.0. LFTs are unremarkable. 05/03/24 03:58 05/03/24 03:58 Lab Results 04/27/24 04/27/24 04/27/24 Range/Units 07:35 08:18 12:29 WBC 7.06 (4.8-10.8) K/ul RBC 3.55 L (4.20-5.40) M/uL Hgb 10.5 L (12.0-16.0) g/dl Hct 32.5 L (37.0-47.0) % MCV 91.5 (80.0-100.0) fL MCH 29.6 (25.0-34.0) pg MCHC 32.3 (32.0-36.0) g/dL RDW Std Deviation 53.1 H (36.4-46.3) fL RDW Coeff of Leah 16.0 H (11.5-14.5) % Plt Count 127 L (130-400) K/uL MPV 11.4 (9.4-12.4) fL Immature Gran % (Auto) 0.4 % Neut % (Auto) 69.9 % Lymph % (Auto) 13.7 % Prentiss % (Auto) 10.6 % Eos % (Auto) 5.1 % Baso % (Auto) 0.3 % Neut # (Auto) 4.93 (1.40-6.50) K/uL Lymph # (Auto) 0.97 L (1.20-3.40) K/uL Prentiss # (Auto) 0.75 H (0.11-0.59) K/uL Eos # (Auto) 0.36 (0.00-0.50) K/uL Baso # (Auto) 0.02 (0.00-0.20) K/uL Immature Gran # (Auto) 0.03 (0.01-0.20) K/uL Sodium 139 (136-145) mmol/L Potassium 3.1 L (3.5-5.1) mmol/L Chloride 115 H (98-107) mmol/L Carbon Dioxide 15 L (21-32) mmol/L Anion Gap 9 (3-11) BUN 56 H (6-23) mg/dl Creatinine 2.69 H (0.6-1.2) mg/dl Est Cr Clr Drug Dosing 18.9 ml/min eGFR 17.37 BUN/Creatinine Ratio 20.8 H (10-20) Glucose 136 H (70-99(Fasting)) mg/dl Lactate 1.0 (0.4-2.0) mmol/L Calcium 8.4 L (8.6-10.3) mg/dl Total Bilirubin 0.6 (0.2-1.0) mg/dl Direct Bilirubin 0.2 (0-0.2) mg/dl AST 25 (13-39) U/L ALT 17 (7-52) U/L Alkaline Phosphatase 107 H (34-104) U/L Total Protein 5.8 L (6.0-8.3) gm/dl Albumin 2.7 L (3.4-5.0) gm/dl Globulin 3.1 (2.5-4.0) gm/dl Albumin/Globulin Ratio 0.9 (0.9-2) Blood Type A Negative Antibody Screen NEGATIVE Crossmatch See Detail Imaging Data My Impression: CT scan imaging of the abdomen pelvis without contrast was obtained given her abdominal discomfort. She has extensive pneumatosis involving the colon and rectum with extraluminal gas. It is worrisome for bowel ischemia. No bowel obstruction. Radiographic imaging obtained today of the pelvis and hips was also interpreted by me and read by radiology. No evidence of fracture. Mild to moderate osteoarthritis. Lumbar spine films obtained today were also interpreted by me and read by radiology. No evidence of fracture. Hardware is present consistent with her previous L4-S1 decompression and fusion. Mild disc space narrowing and osteophytes at multiple levels but no distinct impingement. Radiologist's Impression: Abdomen/Pelvis CT 04/27/24 07:24 CT OF THE ABDOMEN AND PELVIS WITHOUT CONTRAST CLINICAL HISTORY: Right-sided abdominal pain. COMPARISON STUDY: CT of the abdomen and pelvis July 25, 2023. Renal ultrasound November 10, 2023. TECHNIQUE: Axial images of the abdomen and pelvis were obtained without IV contrast. Images were reviewed in the axial, sagittal, and coronal planes. Automated exposure control was utilized for the study. A dose lowering technique was utilized adhering to the principles of ALARA. FINDINGS: The heart is enlarged. The liver is cirrhotic. Although sensitivity is diminished on this unenhanced exam, no hepatic lesions are identified. The gallbladder surgically absent. Size of the spleen is normal. There is trace perihepatic ascites. Upper abdominal varices are again noted. IVC filter is in place. There is no evidence for a bowel obstruction. Of note, there is extensive pneumatosis involving the majority of the colon as well as rectal involvement. Gas extending into the mesentery and adjacent soft tissues is present. There are no fluid collections. Evaluation of the abdomen and pelvis is suboptimal on this unenhanced examination. There is no hydronephrosis. The bladder is distended. Postoperative findings within the spine are noted. There are no acute fractures within the visualized skeletal structures. IMPRESSION: 1. Extensive pneumatosis involving the majority of the colon and rectum with extraluminal gas extending into the mesentery and adjacent soft tissues. Trace associated infiltration and ascites. Pneumatosis represents a nonspecific finding although is worrisome for bowel ischemia. Correlation with clinical evidence for ischemia is recommended. 2. Cirrhotic liver. Trace perihepatic ascites. Redemonstration of upper abdominal varices indicative of portal hypertension. 3. No bowel obstruction. ACT 112: Negative or not required by law. Electronically signed by: Eris Friedman M.D. 04/27/2024 8:11 AM Hip/Pelvis X-Ray 04/27/24 07:24 XR hip RT 2V w pelvis CLINICAL HISTORY: Right hip pain. COMPARISON: CT of the abdomen and pelvis July 25, 2023. Pelvis and right hip radiographs June 18, 2023. FINDINGS: Postoperative findings within the spine are better depicted on the lumbar spine radiographs which will be reported separately. There are no fractures within the pelvis or hips. Hip joint spaces are preserved. There is mild to moderate bilateral hip osteophytosis. There is no evidence for avascular necrosis of the femoral heads. A calcific density superior to the right hip suggests an old avulsion injury. Partially visualized healed right femoral diaphyseal fracture is present. IMPRESSION: 1. No fractures within the pelvis or hips. 2. Mild to moderate bilateral hip osteoarthritis. ACT 112: Negative or not required by law. Electronically signed by: Eris Friedman M.D. 04/27/2024 8:24 AM Lumbar Spine X-Ray 04/27/24 07:24 XR lumbar spine min 4V routine CLINICAL HISTORY: Right leg radiculopathy, hx of spine surgery COMPARISON STUDY: Lumbar spine MRI August 17, 2022. Lumbar spine radiographs December 22, 2022. FINDINGS: Incidental note is made of colonic pneumatosis, better depicted on the abdominal CT. There are cholecystectomy clips. IVC filter is in place. No lumbar spine fractures are present. Status post L4-S1 decompression and fusion. Hardware is intact. There is mild disc space narrowing and osteophytosis within the lumbar spine with moderate facet arthrosis. IMPRESSION: 1. No lumbar spine fractures. 2. Stable findings following L4-S1 decompression and fusion. ACT 112: Negative or not required by law. Electronically signed by: Eris Friedman M.D. 04/27/2024 8:25 AM ECG Data Additional Comments: EKG obtained today shows a normal sinus rhythm with a rate of 60. Right bundle branch block is present. She also has a left anterior fascicular block. This was reviewed with Dr. Zavala. When compared to the EKG from February 15, 2024, there is no significant change. Blood Pressure Blood Pressure Findings: Normal blood pressure MDM Narrative The patient was evaluated in room A12. Conservative care measures were discussed. She was placed on a acetylene cylinder packing mixer and remained in sinus rhythm with a rate in the 80s. No ectopy or acute ST wave changes were noted. IV was established. Labs were obtained. Imaging of the lumbar spine, pelvis, right hip, and abdomen/pelvis was obtained. Her labs are not suggestive of significant infection. She does appear dry but has a history of renal disease. Lab values are not too far off from normal. Her imaging studies do not suggest that her symptoms are coming from her hip. CT scan is concerning for ischemic bowel with pneumatosis. I suspect that this is likely her source of abdominal discomfort, with radiation to the right hip area. This was discussed at length with the patient. She was administered morphine 4 mg IV and Zofran 4 mg IV for pain control. She was also given Ofirmev 1 g IV. She was hydrated gently using 1 L normal sterile saline at 80 mL/hour. Consultation was obtained from general surgery. Please see that dictation for final management. They suggested that the hospitalist team admit with general surgery consult. Hospitalist team was consulted and I spoke with Dr. Camacho. He will admit the patient. She was started with Zosyn 4.5 g IV for antibiotic coverage. The patient was seen in conjunction with Dr. Zavala, who also evaluated the patient and concurred with today's diagnosis and treatment plan. Impression & Plan Ischemic bowel disease Discharge Plan Visit Data Chief Complaint: Hip Pain Stated Complaint: R HIP AND LEG PAIN ED Provider: Dmitriy Zavala ED Midlevel Provider: Enrike Quick Discharge Problem: Ischemic bowel disease Patient Disposition: Admitted As Inpatient Discharge Instructions Interventions: ED Discharge Assessment Last Done: 04/27/24 13:31
[2024-04-27 08:07] LABS: Basophils # (auto) 0.02 K/uL (0.00-0.20); Basophils % (auto) 0.3 %; Eosinophils # (auto) 0.36 K/uL (0.00-0.50); Eosinophils % (auto) 5.1 %; Hematocrit (blood only) 32.5 % (37.0-47.0); Hemoglobin 10.5 g/dl (12.0-16.0); Immature Granulocytes # (auto) 0.03 K/uL (0.01-0.20); Immature Granulocytes % (auto) 0.4 %; Lymphocytes # (auto) 0.97 K/uL (1.20-3.40); Lymphocytes % (auto) 13.7 %; Mean Corpuscular Hemoglobin 29.6 pg (25.0-34.0); Mean Corpuscular Hgb Conc 32.3 g/dL (32.0-36.0); Mean Corpuscular Volume 91.5 fL (80.0-100.0); Mean Platelet Volume 11.4 fL (9.4-12.4); Monocytes # (auto) 0.75 K/uL (0.11-0.59); Monocytes % (auto) 10.6 %; Neutrophils # (auto) 4.93 K/uL (1.40-6.50); Neutrophils % (auto) 69.9 %; Platelet Count 127 K/uL (130-400); RDW Standard Deviation 53.1 fL (36.4-46.3); Red Blood Count 3.55 M/uL (4.20-5.40); White Blood Count 7.06 K/ul (4.8-10.8)
--- NOTE | 2024-04-27 08:13 | CT Scan Report ---
CT OF THE ABDOMEN AND PELVIS WITHOUT CONTRAST CLINICAL HISTORY: Right-sided abdominal pain. COMPARISON STUDY: CT of the abdomen and pelvis July 25, 2023. Renal ultrasound November 10, 2023. TECHNIQUE: Axial images of the abdomen and pelvis were obtained without IV contrast. Images were revi ewed in the axial, sagittal, and coronal planes. Automated exposure control was utilized for the kyle dy. A dose lowering technique was utilized adhering to the principles of ALARA. FINDINGS: The heart is enlarged. The liver is cirrhotic. Although sensitivity is diminished on this u nenhanced exam, no hepatic lesions are identified. The gallbladder surgically absent. Size of the spl een is normal. There is trace perihepatic ascites. Upper abdominal varices are again noted. IVC filte r is in place. There is no evidence for a bowel obstruction. Of note, there is extensive pneumatosis involving the majority of the colon as well as rectal involvement. Gas extending into the mesentery a nd adjacent soft tissues is present. There are no fluid collections. Evaluation of the abdomen and pe lvis is suboptimal on this unenhanced examination. There is no hydronephrosis. The bladder is distend ed. Postoperative findings within the spine are noted. There are no acute fractures within the visual ized skeletal structures. IMPRESSION: 1. Extensive pneumatosis involving the majority of the colon and rectum with extraluminal gas extendi ng into the mesentery and adjacent soft tissues. Trace associated infiltration and ascites. Pneumatos is represents a nonspecific finding although is worrisome for bowel ischemia. Correlation with clinic al evidence for ischemia is recommended. 2. Cirrhotic liver. Trace perihepatic ascites. Redemonstration of upper abdominal varices indicative of portal hypertension. 3. No bowel obstruction. ACT 112: Negative or not required by law. Electronically signed by: Eris Friedman M.D. 04/27/2024 8:11 AM
--- NOTE | 2024-04-27 08:25 | XRay Report ---
XR hip RT 2V w pelvis CLINICAL HISTORY: Right hip pain. COMPARISON: CT of the abdomen and pelvis July 25, 2023. Pelvis and right hip radiographs May 252022. FINDINGS: Postoperative findings within the spine are better depicted on the lumbar spine radiograph s which will be reported separately. There are no fractures within the pelvis or hips. Hip joint spac es are preserved. There is mild to moderate bilateral hip osteophytosis. There is no evidence for debra scular necrosis of the femoral heads. A calcific density superior to the right hip suggests an old av ulsion injury. Partially visualized healed right femoral diaphyseal fracture is present. IMPRESSION: 1. No fractures within the pelvis or hips. 2. Mild to moderate bilateral hip osteoarthritis. ACT 112: Negative or not required by law. Electronically signed by: Eris Friedman M.D. 04/27/2024 8:24 AM
--- NOTE | 2024-04-27 08:26 | XRay Report ---
XR lumbar spine min 4V routine CLINICAL HISTORY: Right leg radiculopathy, hx of spine surgery COMPARISON STUDY: Lumbar spine MRI August 17, 2022. Lumbar spine radiographs December 22, 2022. FINDINGS: Incidental note is made of colonic pneumatosis, better depicted on the abdominal CT. There are cholecystectomy clips. IVC filter is in place. No lumbar spine fractures are present. Status post L4-S1 decompression and fusion. Hardware is intact. There is mild disc space narrowing and osteophyt osis within the lumbar spine with moderate facet arthrosis. IMPRESSION: 1. No lumbar spine fractures. 2. Stable findings following L4-S1 decompression and fusion. ACT 112: Negative or not required by law. Electronically signed by: Eris Friedman M.D. 04/27/2024 8:25 AM
[2024-04-27 08:30] LABS: Albumin Globulin Ratio 0.9 (0.9-2); Albumin Level 2.7 gm/dl (3.4-5.0); BUN Creatinine Ratio 20.8 (10-20); Bilirubin Direct 0.2 mg/dl (0-0.2); Bilirubin,Total 0.6 mg/dl (0.2-1.0); Calcium 8.4 mg/dl (8.6-10.3); Creatinine Clr Calc Pharmacy 18.9 ml/min; Globulin 3.1 gm/dl (2.5-4.0); Potassium 3.1 mmol/L (3.5-5.1); Total Protein 5.8 gm/dl (6.0-8.3)
[2024-04-27] MEDS: ACETAMINOPHEN 1,000 MG/100 ML VIAL IV PRN (08:43)
[2024-04-27] MEDS: ONDANSETRON INJ 2 MG/ML 2 ML VIAL IV STA (08:44)
[2024-04-27] MEDS: MoRPHine SULFATE 4 MG/ML 1 ML CARP\\VIAL IV STA (08:44)
[2024-04-27] MEDS: PIPERACILLIN/TAZOBACTAM 4.5 GM/100 ML BAG IV ONE (09:46)
[2024-04-27] MEDS: NSS+KCL 20 MEQ 1000ML IV ONE (09:51)
--- NOTE | 2024-04-27 09:52 | Surgery Consultation ---
Date of Consultation April 27, 2024 Assessment & Plan (1) Abdominal pain: (2) Ischemia, bowel: Patient seen and examined with Dr. Melchor. 78-year-old female with 7-10 day history of abdominal pain, bloody bowel movements for the last 3-4 days. She is on daily Eliquis. Concern for possible bowel ischemia on CT scan- Rosalind is very tender with abdominal exam. Dr. Melchor discussed possible surgical intervention vs observation with antibiotic treatment with Rosalind's niece, who is also her POA. Rosalind is a very high surgical risk. She is aware that she would need a colostomy, which her did have prior to his . Rosalind has requested that her son be called to come to the hospital so that they can discuss possibly moving forward with surgery. Medicine will admit. General Surgery to be called when patient's son arrives to the hospital. Supervising Physician Co-Signing Physician Notes As per Trudy Molina physician library serials assistant The patient has had a history last week or so with some abdominal discomfort and progressed in the last 24 hours where she has some nausea and some dark thick rectal bleeding with associated lower abdominal discomfort Radiographic CAT scan shows extensive pneumatosis the laboratory and Images were reviewed Discussed the situation with the son and power of commonwealth attorney and the patient physical findings she is extremely tender most so in the upper quadrant and rebound tenderness and decision was made to proceed with surgery well-recognized with likely subtotal colectomy with end ileostomy and also extremely high risk for other complications including They would like to proceed with surgery including the patient who is alert and coherent at this time and she is aware what a colostomy bag or colostomy bag is since her had 1 All question answered permit signed History of Present Illness Reason for Consultation: abdominal pain- ischemic bowel? History of Present Illness Rosalind presented to [facility] via ambulance after increase in abdominal pain. History obtained from family member at bedside. She reports that Rosalind had been complaining of, what she thought, was right-sided hip pain for the last 1 week. Rosalind also notes several episodes of bloody diarrhea over the last 3-4 days. Rosalind believed that it was her hemorrhoids causing the bleeding. She is on daily Eliquis. She denies any nausea or vomiting. Rosalind's family member states that she made an appointment for her aunt's PCP for Monday, but when Rosalind woke up early this morning, she was having trouble walking and the pain had increased. CT scan of abdomen in ED reveals 1. Extensive pneumatosis involving the majority of the colon and rectum with extraluminal gas extending into the mesentery and adjacent soft tissues. Trace associated infiltration and ascites. Pneumatosis represents a nonspecific finding although is worrisome for bowel ischemia. Correlation with clinical evidence for ischemia is recommended. 2. Cirrhotic liver. Trace perihepatic ascites. Re-demonstration of upper abdominal varices indicative of portal hypertension. 3. No bowel obstruction. Currently, she is afebrile. Vital signs stable. WBC within normal limits, lactate 1.0 Allergies Allergy/AdvReac Type Severity Reaction Status Date / Time No Known Allergies Allergy Verified 02/15/24 02:39 Home Medications Medication Instructions Recorded Confirmed Type cholecalciferol (vitamin D3) 50 2,000 unit PO QAM 07/01/18 03/07/24 History mcg (2,000 unit) capsule (Vitamin D3) multivitamin 1 tab PO QAM 10/14/19 03/07/24 History vitamin E 268 mg (400 unit) capsule 400 unit PO QAM 08/14/20 03/07/24 History coenzyme Q10 200 mg capsule 200 mg PO DAILY 11/01/21 03/07/24 History magnesium chloride 64 mg 128 mg (2 x 64 mg) PO TID #540 tabs 09/08/22 03/07/24 Rx (magnesium chloride) tablet,delayed release rifaximin 550 mg tablet (Xifaxan) 550 mg PO BID #60 tabs 07/14/23 03/07/24 Rx atorvastatin 10 mg tablet 10 mg PO HS #90 tabs 10/27/23 03/07/24 Rx blood-glucose meter,continuous #1 ea 11/15/23 03/07/24 Rx (Dexcom G7 Grooving Lathe Tender) blood-glucose sensor (Dexcom G7 #1 ea 11/15/23 03/07/24 Rx Sensor device) pen needle, diabetic 31 gauge x #100 ea 11/15/23 03/07/24 Rx 5/16" (BD Ultra-Fine Short Pen Needle) spironolactone 25 mg tablet 25 mg PO QAM 12/06/23 03/07/24 History furosemide 40 mg tablet 40 mg PO BID 01/18/24 03/07/24 History insulin aspart U-100 100 unit/mL 5 unit subcut BIDM 02/15/24 03/07/24 History (3 mL) subcutaneous pen (Novolog FlexPen U-100 Insulin aspart) dextromethorphan-guaifenesin 5 10 ml PO Q6H PRN cough #500 mL 02/18/24 03/07/24 Rx mg-100 mg/5 mL oral liquid (Robitussin Cough-Chest Congestion DM) propranolol 10 mg tablet 10 mg PO TID 90 days #270 tabs 02/26/24 03/07/24 Rx apixaban 2.5 mg tablet (Eliquis) 2.5 mg PO BID #60 tabs 03/04/24 03/07/24 Rx benzonatate 100 mg capsule 100 mg PO TID PRN cough #20 caps 03/07/24 03/07/24 Rx silver sulfadiazine 1 % topical 1 applic topical DAILY 03/07/24 03/07/24 History cream (SSD) levothyroxine 75 mcg tablet 75 mcg PO DAILY #90 tabs 03/27/24 Rx insulin glargine 100 unit/mL (3 7 unit (0.07 mL) subcut QAM #6 mL 04/04/24 Rx mL) subcutaneous pen (Lantus Solostar U-100 Insulin) lactulose 10 gram/15 mL (15 mL) See Rx Instructions .Route 04/04/24 Rx oral solution .COMPLEX #1,440 mL pantoprazole 40 mg tablet,delayed 40 mg PO QAM #90 tabs 04/18/24 Rx release Patient History Medical History Infective endocarditis Streptococcal bacteremia ROSALES (obstructive sleep apnea) Rectal bleeding Hypomagnesemia Nausea vomiting and diarrhea Dizziness Acute hyperkalemia Encephalopathy acute Nausea & vomiting Rhinovirus Acute on chronic diastolic heart failure Volume overload Lactate blood increase Vomiting and diarrhea Wheezing Weakness DVT (deep venous thrombosis) Elevated troponin Thrombocytopenia Chronic deep vein thrombosis (DVT) Fever Pulmonary embolism 2018 > no known cause > Filter to right groin Diverticular hemorrhage resolved GI bleed none at present Esophageal varices determined by endoscopy Monoclonal gammopathy Osteoarthritis GERD (gastroesophageal reflux disease) Migraine Vertigo Surgical History Status post lumbar surgery History of laparoscopic cholecystectomy History of section x3 History of bilateral breast reduction surgery History of dilatation and curettage History of carpal tunnel release of both wrists History of total left knee replacement (TKR) History of total right knee replacement (TKR) History of lumbar spinal fusion hardware in place History of colonoscopy History of esophagogastroduodenoscopy (EGD) History of tooth extraction all teeth History of tonsillectomy History of bilateral cataract extraction Family History Mother Family history of diabetes mellitus Brother Family history of diabetes mellitus 3 brothers Colorectal cancer Myocardial infarction x 2 Father Myocardial infarction Denies family history of Ovarian cancer Prostate cancer Breast cancer Social History Smoking Status: Former smoker Tobacco Type: Cigarettes Age Started Using Tobacco: 15; Age Quit Using Tobacco: 21; Cigarettes Per Day: stopped 55 years ago; Second Hand Exposure: No; Do You Dip or Chew Tobacco: No; Hx Alcohol Use: No Hx Substance Use: No Preferred Language: [place] Communication Ability: Effective Visual Impairment: Limited Hearing Ability: Normal Security Door Installer Required: No Beliefs That Will Affect Care: None marital status: / Current Living Situation: Family Current Living Situation Comment: Niece @ home current occupational status: retired How many Children do You have: 3 Feels Safe at Home: Yes Childhood Exposure to Second-Hand Smoke: Yes Diet: regular caffeine: Yes (tea) during the past year weight has: remained stable Dental Care, Regularly: No Physical Activity Frequency: Does not Exercise Seatbelt Use: always Sunscreen Use: No Do you think of yourself as: straight/heterosexual Gender Identity: Female Assistive Devices: Walker Review of Systems Constitutional: as per Subjective / HPI; no fever and no chills Respiratory: no dyspnea Cardiovascular: no chest pain and no dyspnea Gastrointestinal: + abdominal pain, + diarrhea/loose stool s and + blood in stools; no nausea and no vomiting Physical Exam Constitutional: WD/WN, vitals as above Respiratory: normal respiratory effort; no respiratory distress and no labored breathing Gastrointestinal (Abdomen): Inspection/Auscultation: + abdomen distended and + abdominal edema Percussion/Palpation: + abdomen tender (right and left upper abdomen.) Results & Data Vital Signs (Past 12 Hours) Vital Signs Pulse Resp BP Pulse Ox O2 Del Method 04/27/24 09:35 88/51 L 04/27/24 09:33 63 14 97 Room Air 04/27/24 08:50 101/56 L 04/27/24 08:45 63 18 97 Room Air 04/27/24 07:35 57 L 04/27/24 07:12 63 14 106/63 99 Room Air PG Care Time/CCT Total # of Minutes Spent Total Time Spent with Patient: Total time spent is greater than 50% in coordination of care (as documented) at patient's floor/unit and/or counseling patient: Coding Level of Care Code 60912 INT INP/OBS CARE 2/55MIN Diagnoses Abdominal pain R10.9 Ischemia, bowel K55.9
--- NOTE | 2024-04-27 10:19 | History & Physical Report ---
Date of Service April 27, 2024 Assessment & Plan (1) Ischemia, bowel: Plan: Suspected on admission. Diffuse colonic pneumatosis seen on CT scan. Appreciate general surgery consultation and recommendations. She will be kept n.p.o. with IV fluids and pain control measures. IV Zosyn ordered. (2) Diabetes mellitus type 2 in obese: Plan: Currently NPO. Sliding scale coverage ordered (3) Hypomagnesemia: Plan: Magnesium replacement ordered. Serial labs (4) HTN (hypertension): Plan: Oral antihypertensive medications are on hold. Will follow (5) Obesity: Plan: Morbidly obese. BMI is greater than 40. (6) Hypokalemia: Plan: Parenteral replacement. Serial labs Plan Very poor prognosis. DNR. Anticipate need for palliative care consultation and eventual comfort measures only History of Present Illness Chief Complaint: Abdominal pain Primary Care Provider: Jian Pierce DO 78-year-old female with several days of abdominal pain. She has associated weakness and not feeling well. She presented to the ED for evaluation. CT scan of the abdomen reveals diffuse pneumatosis of the colon highly suspicious for ischemic bowel. She is diffusely tender in the abdomen and bowel sounds are absent. She has been seen by general surgery. She is a DNR patient. She has been started on Zosyn along with IV fluids and been given morphine for pain control measures. She will be admitted for further evaluation and management Allergies Allergy/AdvReac Type Severity Reaction Status Date / Time No Known Allergies Allergy Verified 02/15/24 02:39 Home Medications Medication Instructions Recorded Confirmed Type cholecalciferol (vitamin D3) 50 2,000 unit PO QAM 07/01/18 03/07/24 History mcg (2,000 unit) capsule (Vitamin D3) multivitamin 1 tab PO QAM 10/14/19 03/07/24 History vitamin E 268 mg (400 unit) capsule 400 unit PO QAM 08/14/20 03/07/24 History coenzyme Q10 200 mg capsule 200 mg PO DAILY 11/01/21 03/07/24 History magnesium chloride 64 mg 128 mg (2 x 64 mg) PO TID #540 tabs 09/08/22 03/07/24 Rx (magnesium chloride) tablet,delayed release rifaximin 550 mg tablet (Xifaxan) 550 mg PO BID #60 tabs 07/14/23 03/07/24 Rx atorvastatin 10 mg tablet 10 mg PO HS #90 tabs 10/27/23 03/07/24 Rx blood-glucose meter,continuous #1 ea 11/15/23 03/07/24 Rx (Dexcom G7 Cosmetic Maker) blood-glucose sensor (Dexcom G7 #1 ea 11/15/23 03/07/24 Rx Sensor device) pen needle, diabetic 31 gauge x #100 ea 11/15/23 03/07/24 Rx 5/16" (BD Ultra-Fine Short Pen Needle) spironolactone 25 mg tablet 25 mg PO QAM 12/06/23 03/07/24 History furosemide 40 mg tablet 40 mg PO BID 01/18/24 03/07/24 History insulin aspart U-100 100 unit/mL 5 unit subcut BIDM 02/15/24 03/07/24 History (3 mL) subcutaneous pen (Novolog FlexPen U-100 Insulin aspart) dextromethorphan-guaifenesin 5 10 ml PO Q6H PRN cough #500 mL 02/18/24 03/07/24 Rx mg-100 mg/5 mL oral liquid (Robitussin Cough-Chest Congestion DM) propranolol 10 mg tablet 10 mg PO TID 90 days #270 tabs 02/26/24 03/07/24 Rx apixaban 2.5 mg tablet (Eliquis) 2.5 mg PO BID #60 tabs 03/04/24 03/07/24 Rx benzonatate 100 mg capsule 100 mg PO TID PRN cough #20 caps 03/07/24 03/07/24 Rx silver sulfadiazine 1 % topical 1 applic topical DAILY 03/07/24 03/07/24 History cream (SSD) levothyroxine 75 mcg tablet 75 mcg PO DAILY #90 tabs 03/27/24 Rx insulin glargine 100 unit/mL (3 7 unit (0.07 mL) subcut QAM #6 mL 04/04/24 Rx mL) subcutaneous pen (Lantus Solostar U-100 Insulin) lactulose 10 gram/15 mL (15 mL) See Rx Instructions .Route 04/04/24 Rx oral solution .COMPLEX #1,440 mL pantoprazole 40 mg tablet,delayed 40 mg PO QAM #90 tabs 04/18/24 Rx release Past Med/Surg History Problem List (Updated 04/27/24 @ 10:17 by George Camacho MD) Hypokalemia Obesity Ischemia, bowel Abdominal pain EMY (acute kidney injury) Diabetes mellitus type 2 in obese Acute hyponatremia (Acute) Hypomagnesemia (Acute) Rhinovirus infection (Acute) Pneumonia (Acute) Wheezing (Acute) SOB (shortness of breath) (Acute) Weakness (Acute) Generalized weakness HTN (hypertension) (Acute) Leukopenia (Acute) Anemia (Acute) Hypomagnesemia (Acute) Acute hepatic encephalopathy (Acute) Fatigue Pancytopenia LLQ abdominal pain Inflammatory arthritis Hypertension (Acute) Slurred speech (Acute) Hyperammonemia (Acute) Altered mental status (Acute) Aortic stenosis Chronic right-sided congestive heart failure History of DVT (deep vein thrombosis) Presence of IVC filter Right leg pain Weakness (Acute) Anticoagulant long-term use (Acute) Hypothyroidism UTI (urinary tract infection) Chronic diastolic heart failure Stage 3b chronic kidney disease Hyperammonemia Cor pulmonale Chronic kidney disease, stage III (moderate) CHF (congestive heart failure) (Acute) Morbid obesity PAF (paroxysmal atrial fibrillation) 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) Diastolic dysfunction Atrial fibrillation with rapid ventricular response Chronic back pain Anemia (Acute) Rectal bleeding Abnormal mammogram of left breast Left breast lump Hematuria Encounter for examination following treatment at hospital Fall (Acute) Diarrhea Lower leg edema Proteinuria Right knee pain Lumbar stenosis with neurogenic claudication MGUS (monoclonal gammopathy of unknown significance) (Chronic ~02/2015) Meningioma (Acute) Vitamin D deficiency (Acute) Pituitary macroadenoma (Acute) Mitral regurgitation (Acute) Microalbuminuria (Acute) Hypercholesterolemia (Acute) Diabetes mellitus with peripheral vascular disease (Acute) Cervical spondylosis (Acute) Thickened endometrium Obesity, diabetes, and hypertension syndrome Bilateral lower extremity edema (Acute) Age-related physical debility Medical History Infective endocarditis Streptococcal bacteremia ROSALES (obstructive sleep apnea) Rectal bleeding Hypomagnesemia Nausea vomiting and diarrhea Dizziness Acute hyperkalemia Encephalopathy acute Nausea & vomiting Rhinovirus Acute on chronic diastolic heart failure Volume overload Lactate blood increase Vomiting and diarrhea Wheezing Weakness DVT (deep venous thrombosis) Elevated troponin Thrombocytopenia Chronic deep vein thrombosis (DVT) Fever Pulmonary embolism 2018 > no known cause > Filter to right groin Diverticular hemorrhage resolved GI bleed none at present Esophageal varices determined by endoscopy Monoclonal gammopathy Osteoarthritis GERD (gastroesophageal reflux disease) Migraine Vertigo Surgical History Status post lumbar surgery History of laparoscopic cholecystectomy History of section x3 History of bilateral breast reduction surgery History of dilatation and curettage History of carpal tunnel release of both wrists History of total left knee replacement (TKR) History of total right knee replacement (TKR) History of lumbar spinal fusion hardware in place History of colonoscopy History of esophagogastroduodenoscopy (EGD) History of tooth extraction all teeth History of tonsillectomy History of bilateral cataract extraction Family History Mother Family history of diabetes mellitus Brother Family history of diabetes mellitus 3 brothers Colorectal cancer Myocardial infarction x 2 Father Myocardial infarction Denies family history of Ovarian cancer Prostate cancer Breast cancer Social History Smoking Status: Former smoker Tobacco Type: Cigarettes Age Started Using Tobacco: 15; Age Quit Using Tobacco: 21; Cigarettes Per Day: stopped 55 years ago; Second Hand Exposure: No; Do You Dip or Chew Tobacco: No; Hx Alcohol Use: No Hx Substance Use: No Preferred Language: Ukrainian Communication Ability: Effective Visual Impairment: Limited Hearing Ability: Normal Telegraphic Service Dispatcher Required: No Beliefs That Will Affect Care: None marital status: / Current Living Situation: Family Current Living Situation Comment: Niece @ home current occupational status: retired How many Children do You have: 3 Feels Safe at Home: Yes Childhood Exposure to Second-Hand Smoke: Yes Diet: regular caffeine: Yes (tea) during the past year weight has: remained stable Dental Care, Regularly: No Physical Activity Frequency: Does not Exercise Seatbelt Use: always Sunscreen Use: No Do you think of yourself as: straight/heterosexual Gender Identity: Female Assistive Devices: Walker Review of Systems 2 Review of Systems: Constitutionalno fever or chills. ENTno blurred vision, no double vision, no epistaxis, no sore throat Respiratoryno cough, no wheezing, no shortness of breath Cardiacno palpitations, no chest pain, no syncope GIdiffuse abdominal pain, more pronounced on the right side. Some nausea. No vomiting. She denies melena or hematochezia GUno urinary retention, no urinary incontinence, no dysuria, no hematuria Musculoskeletalno joint pain, no muscle tenderness Skinno bruising, no rashes, no pruritus Neurono isolated weakness, no paresthesia. Generalized weakness Psychno depression, no anxiety Physical Exam 2 Physical Exam: General-alert and oriented x3, no fever. Obese HEENT-head atraumatic and normocephalic, pupils equal and reactive to light, extraocular muscles intact Neck-no lymphadenopathy or thyromegaly, trachea midline Chest-clear to auscultation. No rales, wheezing or rhonchi Cardiac-regular rate and rhythm, normal S1 and S2 Abdomen-diffusely tender. Absent bowel sounds. No rebound or guarding. Extremities-chronic appearing nonpitting edema bilateral lower extremities below the knees Neuro-cranial nerves II through XII intact, motor and sensory function within normal limits, strength symmetrical with generalized weakness, no focal deficits Psych-normal affect, normal mood Results & Data Results & Data Vital Signs (Past 12 Hours) Vital Signs Temp Pulse Resp BP Pulse Ox O2 Del Method 04/27/24 09:50 36.7 C 04/27/24 09:48 95/43 L 04/27/24 09:35 88/51 L 04/27/24 09:33 63 14 97 Room Air 04/27/24 08:50 101/56 L 04/27/24 08:45 63 18 97 Room Air 04/27/24 07:35 57 L 04/27/24 07:12 63 14 106/63 99 Room Air Laboratory Results 04/27/24 07:35 04/27/24 07:35 Code Status & VTE Plan Code Status DNR PG Care Time/CCT Total # of Minutes Spent Total Time Spent with Patient: Total time spent is greater than 50% in coordination of care (as documented) at patient's floor/unit and/or counseling patient: Coding Level of Care Code 42699 INT INP/OBS CARE 3/75MIN Diagnoses Ischemia, bowel K55.9 Diabetes mellitus type 2 in obese E11.69; E66.9 Hypomagnesemia E83.42 HTN (hypertension) I10 Hypertension type: unspecified Obesity E66.9 Hypokalemia E87.6 (4) HTN (hypertension) Hypertension type: unspecified Qualified Code(s): I10 - Essential (primary) hypertension
[2024-04-27] MEDS: NSS + 20MEQ KCL 20 MEQ/1,000 ML BAG IV SCH ×2 (10:22→19:15)
--- NOTE | 2024-04-27 11:51 | Anesthesiology Consultation ---
Date of Service April 27, 2024 Assessment & Plan Chart Review Chart Review: Acceptable Risk for Surgery and Patient NOT seen in Pre Admission Testing Consults Requested none ASA [id number] Proposed Anesthesia Anesthesia Type: General Anesthesia Line Insertion: Arterial line and Central Venous Catheter History Surgery Operation Date: 04/27/24 11:40 Proposed Procedures p Exploratory Laparotomy - Arie Melchor MD, FACS s Bowel Resection - Arie Melchor MD, FACS Height/Weight Height: 5 ft Weight: 111.6 kg Allergies Allergy/AdvReac Type Severity Reaction Status Date / Time No Known Allergies Allergy Verified 02/15/24 02:39 Medications Home Medications Medication Instructions Recorded Confirmed Last Taken cholecalciferol (vitamin D3) 50 2,000 unit PO QAM 07/01/18 03/07/24 02/14/24 mcg (2,000 unit) capsule (Vitamin D3) multivitamin 1 tab PO QAM 10/14/19 03/07/24 02/14/24 vitamin E 268 mg (400 unit) capsule 400 unit PO QAM 08/14/20 03/07/24 02/14/24 coenzyme Q10 200 mg capsule 200 mg PO DAILY 11/01/21 03/07/24 02/14/24 magnesium chloride 64 mg 128 mg (2 x 64 mg) PO TID #540 tabs 09/08/22 03/07/24 02/14/24 (magnesium chloride) tablet,delayed release rifaximin 550 mg tablet (Xifaxan) 550 mg PO BID #60 tabs 07/14/23 03/07/24 02/14/24 atorvastatin 10 mg tablet 10 mg PO HS #90 tabs 10/27/23 03/07/24 02/14/24 blood-glucose meter,continuous #1 ea 11/15/23 03/07/24 Unknown (Dexcom G7 Negative Spotter) blood-glucose sensor (Dexcom G7 #1 ea 11/15/23 03/07/24 Unknown Sensor device) pen needle, diabetic 31 gauge x #100 ea 11/15/23 03/07/24 Unknown 16" (BD Ultra-Fine Short Pen Needle) spironolactone 25 mg tablet 25 mg PO QAM 12/06/23 03/07/24 02/14/24 furosemide 40 mg tablet 40 mg PO BID 01/18/24 03/07/24 02/14/24 insulin aspart U-100 100 unit/mL 5 unit subcut BIDM 02/15/24 03/07/24 02/14/24 (3 mL) subcutaneous pen (Novolog FlexPen U-100 Insulin aspart) dextromethorphan-guaifenesin 5 10 ml PO Q6H PRN cough #500 mL 02/18/24 03/07/24 Unknown mg-100 mg/5 mL oral liquid (Robitussin Cough-Chest Congestion DM) propranolol 10 mg tablet 10 mg PO TID 90 days #270 tabs 02/26/24 03/07/24 Unknown apixaban 2.5 mg tablet (Eliquis) 2.5 mg PO BID #60 tabs 03/04/24 03/07/24 Unknown benzonatate 100 mg capsule 100 mg PO TID PRN cough #20 caps 03/07/24 03/07/24 Unknown silver sulfadiazine 1 % topical 1 applic topical DAILY 03/07/24 03/07/24 Unknown cream (SSD) levothyroxine 75 mcg tablet 75 mcg PO DAILY #90 tabs 03/27/24 Unknown insulin glargine 100 unit/mL (3 7 unit (0.07 mL) subcut QAM #6 mL 04/04/24 Unknown mL) subcutaneous pen (Lantus Solostar U-100 Insulin) lactulose 10 gram/15 mL (15 mL) See Rx Instructions .Route 04/04/24 Unknown oral solution .COMPLEX #1,440 mL pantoprazole 40 mg tablet,delayed 40 mg PO QAM #90 tabs 04/18/24 Unknown release Active Medications Generic Name Dose Route Start Last Admin Trade Name Freq PRN Reason Stop Dose Admin Acetaminophen 1,000 mg in 100 mls @ 400 mls/hr 04/27/24 08:19 04/27/24 09:09 Ofirmev IV 04/30/24 08:18 Infused Q8H PRN Infusion Pain Potassium Chloride/Sodium Chloride 20 meq in 1,000 mls @ 100 mls/hr 04/27/24 10:30 04/27/24 10:22 Normal Saline W/20 Meq Kcl IV 05/27/24 10:29 100 mls/hr .Q10H ARMANDO Administration Past Medical History Medical History Infective endocarditis Streptococcal bacteremia ROSALES (obstructive sleep apnea) Rectal bleeding Hypomagnesemia Nausea vomiting and diarrhea Dizziness Acute hyperkalemia Encephalopathy acute Nausea & vomiting Rhinovirus Acute on chronic diastolic heart failure Volume overload Lactate blood increase Vomiting and diarrhea Wheezing Weakness DVT (deep venous thrombosis) Elevated troponin Thrombocytopenia Chronic deep vein thrombosis (DVT) Fever Pulmonary embolism 2018 > no known cause > Filter to right groin Diverticular hemorrhage resolved GI bleed none at present Esophageal varices determined by endoscopy Monoclonal gammopathy Osteoarthritis GERD (gastroesophageal reflux disease) Migraine Vertigo CKD3 Morbid Obesity Chronic Right Heart failure -mod.-severe TR severe MR-mod. ASCVD AO Exercise / Class Metabolic Activity III < 4 Walking/Shop/Light housework Past Family History Family History Mother Family history of diabetes mellitus Brother Family history of diabetes mellitus 3 brothers Colorectal cancer Myocardial infarction x 2 Father Myocardial infarction Denies family history of Ovarian cancer Prostate cancer Breast cancer Past Surgical History Surgical History Status post lumbar surgery History of laparoscopic cholecystectomy History of section x3 History of bilateral breast reduction surgery History of dilatation and curettage History of carpal tunnel release of both wrists History of total left knee replacement (TKR) History of total right knee replacement (TKR) History of lumbar spinal fusion hardware in place History of colonoscopy History of esophagogastroduodenoscopy (EGD) History of tooth extraction all teeth History of tonsillectomy History of bilateral cataract extraction Past Anesthesia History No Hx of Anesthesia Complications and No Family Hx of Anesthesia Complications History of PONV No Hx of PONV and No Hx of Motion Sickness Social History Smoking Status: Former smoker tobacco type: cigarettes Smoking cigarettes per day: stopped 55 years ago Do You Dip or Chew Tobacco: No Hx Alcohol Use: No Alcohol type: other alcohol intake frequency: holidays/special occasions only Hx Substance Use: No substance use type: does not use Physical Exam Vital Signs Last Vital Signs Temp 36.7 C 04/27/24 09:50 Pulse 62 04/27/24 11:04 Resp 16 04/27/24 11:04 BP 107/50 L 04/27/24 11:37 Pulse Ox 99 04/27/24 11:04 O2 Del Method Room Air 04/27/24 11:04 O2 Flow Rate 2 04/27/24 11:04 Testing Laboratory Results 04/27/24 07:35 04/27/24 07:35 Electrocardiogram Date: 04/27/24 Findings: + NSR @ (@ 60;LAFB) and + RBBB Echocardiogram Date: 11/22/22 EF: 50% LV Function: normal RWMA: + none Other Findings: + atrial enlargement (Biatrial severe enlargement) and + LVH (mod.) Valvular Disease: + (mod-severe) and + MR (mod.) TR-severe RV function-mod. decreased;dilated RV Other Testing 02/14/2023-Carotid U/S-no H/D sig. stenoses
[2024-04-27] MEDS ORDERED: SODIUM CHLORIDE 0.9% 250 ML IV PRN ×3 (11:52→22:15)
--- NOTE | 2024-04-27 11:54 | Communication Note ---
Date of Service: April 27, 2024 02/15/[id number] Ao;cardiomegaly;mod. pulm vasc. congestion
--- NOTE | 2024-04-27 12:17 | XRay Report ---
XR chest 1V portable CLINICAL HISTORY: Congestive heart failure. COMPARISON STUDY: Chest radiograph February 15, 2024. Chest CT November 22, 2022. FINDINGS: There is no pneumothorax or pleural effusion. There is no consolidation to suggest pneumoni a. Linear left basilar densities represent atelectasis or scarring. There is no evidence for pulmonar y edema. Cardiomegaly is unchanged. IMPRESSION: No acute cardiopulmonary findings. Cardiomegaly. ACT 112: Negative or not required by law. Electronically signed by: Eris Friedman M.D. 04/27/2024 12:15 PM
[2024-04-27] MEDS ORDERED: SUCCINYLCHOLINE 100MG/5ML SYR IV ONE (13:38)
[2024-04-27] MEDS ORDERED: LIDOCAINE 2% 2 ML VIAL/AMP(20MG/ML) INFIL ONE (13:38)
[2024-04-27] MEDS ORDERED: fentaNYL citrate PF 100 MCG/2 ML VIAL ONE (13:38)
[2024-04-27] MEDS ORDERED: ETOMIDATE 2 MG/ML 20 ML VIAL IV ONE (13:38)
[2024-04-27] MEDS ORDERED: PROPOFOL IV EMULSION 10 MG/ML 20 ML VIAL IV ONE (13:38)
[2024-04-27] MEDS ORDERED: KETAMINE HCL 10MG/ML SYR ONE (13:42)
[2024-04-27] MEDS ORDERED: GLYCOPYRROLATE 0.2 MG/ML VIAL ONE (14:39)
[2024-04-27] MEDS ORDERED: ePHEDrine sulfate 50 MG/ML AMP ONE (14:39)
[2024-04-27] MEDS ORDERED: ALBUMIN HUMAN 5% 12.5 GM/250 ML VIAL IV ONE (14:49)
[2024-04-27] MEDS ORDERED: VASOPRESSIN 20 UNIT/ML VIAL ONE ×2 (15:25→18:10)
[2024-04-27] MEDS ORDERED: PHENYLEPHRINE HCL 10 MG/ML VIAL ONE (15:25)
[2024-04-27] MEDS ORDERED: CISATRACURIUM BESYLATE IV SOLN 2 MG/ML 10 ML VIAL IV ONE ×2 (15:25→16:33)
[2024-04-27] MEDS ORDERED: MoRPHine SULFATE 2 MG/ML CARP IV PRN (17:52)
[2024-04-27] MEDS ORDERED: ONDANSETRON INJ 2 MG/ML 2 ML VIAL IV PRN (17:52)
[2024-04-27] MEDS: GELATIN SPONGE SZ 100 ONE (17:56)
[2024-04-27] MEDS: SURGICEL ABSORB HEMOSTAT 2IN X 14IN TOP ONE (17:57)
[2024-04-27] MEDS: BUPIVACAINE 0.5 % 5 MG/1 ML MPF 30ML VIAL ONE (17:57)
--- NOTE | 2024-04-27 17:58 | Critical Care Consultation ---
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 Critical care indication:Need for pressor support, mechanically ventilated post-operatively Plan: Neurologic pt is currently post-op intubated and on ventilator Cardiac Hypotension in the setting of acute bowel ischemia pt required pressor support throughout surgery will start on levophed HTN Aortic stenosis HFpEF with diastolic dysfunction last EF 50-55% on echo 11/2022 home eliquis, furosemide, spironolactone, propranolol all held in the setting of hypotension Respiratory hx ROSALES on mechanical ventilation postoperatively Gastrointestinal Diet: NPOpost-op bowel resection Bowel ischemia CT abd 04/27; extensive pneumatosis involving majority of colon and rectum, extraluminal gas, cirrhotic liver, trace ascites s/p bowel resection with ileostomy on 04/27 Renal/electrolytes CKD stage 3b baseline Cr appears to be 1.7-1.9 EMY Cr on admission 2.69 will replete electrolytes as needed received 2L IVF during operative period, will hold off on more fluids at this time Genitourinary No acute concerns at this time Martino catheter draining normal-appearing urine at this time Strict I/O's Endocrine DMT2, insulin dependent last HA1c in January 2024; 8.2% Continue ISS per protocol Hypothyroidism continue home levothyroxine as soon as able Hematologic Chronic anemia MGUS baseline hgb appears to be 10-11 Hgb 10.5 this morning, EBL noted to be ~500 mL pt noted to need particular blood, so blood must come from an outside facility if transfusions needed, will obtain and hold some here in case transfusion need arises Infectious disease Afebrile since admission on zosyn for empiric coverage given bowel ischemia and s/p bowel resection Integumentary Some bruises noted on skin, pt is on blood thinner at home Lines/access PIVs intact, arterial line, EJ line in place martino Prophylaxis DVT ppx: deferred in the immediate post-op period due to risk of bleeding GI ppx: protonix IV Thank you the opportunity to participate in this patient's care. Please see attending documentation for further recommendations. Supervising Physician Co-Signing Physician Notes Dr. Ayers was resident physician during care of patient. I discussed the case with the resident. I generally agree with the findings and plan. Patient with high perioperative mortality risk factors. Continue mechanical ventilation and vasoactive medications. Close monitor of bleeding. History of Present Illness Reason for Consultation: Post-op colectomy Requesting Physician: Dr. 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 Pt evaluated immediately post-op. She is sedated still, intubated and sedated. No acute respiratory distress. Allergies Allergy/AdvReac Type Severity Reaction Status Date / Time No Known Allergies Allergy Verified 02/15/24 02:39 Home Medications Medication Instructions Recorded Confirmed Type cholecalciferol (vitamin D3) 50 2,000 unit PO QAM 07/01/18 03/07/24 History mcg (2,000 unit) capsule (Vitamin D3) multivitamin 1 tab PO QAM 10/14/19 03/07/24 History vitamin E 268 mg (400 unit) capsule 400 unit PO QAM 08/14/20 03/07/24 History coenzyme Q10 200 mg capsule 200 mg PO DAILY 11/01/21 03/07/24 History magnesium chloride 64 mg 128 mg (2 x 64 mg) PO TID #540 tabs 09/08/22 03/07/24 Rx (magnesium chloride) tablet,delayed release rifaximin 550 mg tablet (Xifaxan) 550 mg PO BID #60 tabs 07/14/23 03/07/24 Rx atorvastatin 10 mg tablet 10 mg PO HS #90 tabs 10/27/23 03/07/24 Rx blood-glucose meter,continuous #1 ea 11/15/23 03/07/24 Rx (Dexcom G7 Aircraft Tool Maker) blood-glucose sensor (Dexcom G7 #1 ea 11/15/23 03/07/24 Rx Sensor device) pen needle, diabetic 31 gauge x #100 ea 11/15/23 03/07/24 Rx 5/16" (BD Ultra-Fine Short Pen Needle) spironolactone 25 mg tablet 25 mg PO QAM 12/06/23 03/07/24 History furosemide 40 mg tablet 40 mg PO BID 01/18/24 03/07/24 History insulin aspart U-100 100 unit/mL 5 unit subcut BIDM 02/15/24 03/07/24 History (3 mL) subcutaneous pen (Novolog FlexPen U-100 Insulin aspart) dextromethorphan-guaifenesin 5 10 ml PO Q6H PRN cough #500 mL 02/18/24 03/07/24 Rx mg-100 mg/5 mL oral liquid (Robitussin Cough-Chest Congestion DM) propranolol 10 mg tablet 10 mg PO TID 90 days #270 tabs 02/26/24 03/07/24 Rx apixaban 2.5 mg tablet (Eliquis) 2.5 mg PO BID #60 tabs 03/04/24 03/07/24 Rx benzonatate 100 mg capsule 100 mg PO TID PRN cough #20 caps 03/07/24 03/07/24 Rx silver sulfadiazine 1 % topical 1 applic topical DAILY 03/07/24 03/07/24 History cream (SSD) levothyroxine 75 mcg tablet 75 mcg PO DAILY #90 tabs 03/27/24 Rx insulin glargine 100 unit/mL (3 7 unit (0.07 mL) subcut QAM #6 mL 04/04/24 Rx mL) subcutaneous pen (Lantus Solostar U-100 Insulin) lactulose 10 gram/15 mL (15 mL) See Rx Instructions .Route 04/04/24 Rx oral solution .COMPLEX #1,440 mL pantoprazole 40 mg tablet,delayed 40 mg PO QAM #90 tabs 04/18/24 Rx release Patient History Medical History Infective endocarditis Streptococcal bacteremia ROSALES (obstructive sleep apnea) Rectal bleeding Hypomagnesemia Nausea vomiting and diarrhea Dizziness Acute hyperkalemia Encephalopathy acute Nausea & vomiting Rhinovirus Acute on chronic diastolic heart failure Volume overload Lactate blood increase Vomiting and diarrhea Wheezing Weakness DVT (deep venous thrombosis) Elevated troponin Thrombocytopenia Chronic deep vein thrombosis (DVT) Fever Pulmonary embolism 2018 > no known cause > Filter to right groin Diverticular hemorrhage resolved GI bleed none at present Esophageal varices determined by endoscopy Monoclonal gammopathy Osteoarthritis GERD (gastroesophageal reflux disease) Migraine Vertigo Surgical History Status post lumbar surgery History of laparoscopic cholecystectomy History of section x3 History of bilateral breast reduction surgery History of dilatation and curettage History of carpal tunnel release of both wrists History of total left knee replacement (TKR) History of total right knee replacement (TKR) History of lumbar spinal fusion hardware in place History of colonoscopy History of esophagogastroduodenoscopy (EGD) History of tooth extraction all teeth History of tonsillectomy History of bilateral cataract extraction Family History Mother Family history of diabetes mellitus Brother Family history of diabetes mellitus 3 brothers Colorectal cancer Myocardial infarction x 2 Father Myocardial infarction Denies family history of Ovarian cancer Prostate cancer Breast cancer Social History Smoking Status: Former smoker Tobacco Type: Cigarettes Age Started Using Tobacco: 15; Age Quit Using Tobacco: 21; Cigarettes Per Day: stopped 55 years ago; Second Hand Exposure: No; Do You Dip or Chew Tobacco: No; Hx Alcohol Use: No Hx Substance Use: No Preferred Language: Welsh Communication Ability: Effective Visual Impairment: Limited Hearing Ability: Normal Assurance Senior Manager Insurance Required: No Beliefs That Will Affect Care: None marital status: / Current Living Situation: Family Current Living Situation Comment: lives with niece Rosalind current occupational status: retired How many Children do You have: 3 Feels Safe at Home: Yes Childhood Exposure to Second-Hand Smoke: Yes Diet: regular caffeine: Yes (tea) during the past year weight has: remained stable Dental Care, Regularly: No Physical Activity Frequency: Does not Exercise Seatbelt Use: always Sunscreen Use: No Do you think of yourself as: straight/heterosexual Gender Identity: Female Assistive Devices: Walker Review of Systems Review of Systems: Other (Unable to obtain due to post-operative state. ) Physical Exam Physical Exam: General: Intubated, sedated at this junction Resp: Intubated and on ventilator, lungs clear to auscultation from anterior auscultation, unable to position patient due to ventilator status Cardio: Irregular rhythm, rate in the 60s Skin: Dry, pale appearing Results & Data Results & Data Vital Signs (Past 12 Hours) Vital Signs Temp Pulse Pulse Resp BP BP Pulse Ox 04/27/24 12:31 57 L 18 127/91 97 04/27/24 12:00 57 L 04/27/24 11:37 107/50 L 04/27/24 11:04 62 16 97/42 L 99 04/27/24 10:30 101/48 L 04/27/24 10:21 55 L 19 98 04/27/24 10:19 94/44 L 04/27/24 10:15 88 L 04/27/24 09:50 36.7 C 04/27/24 09:48 95/43 L 04/27/24 09:35 88/51 L 04/27/24 09:33 63 14 97 04/27/24 08:50 101/56 L 04/27/24 08:45 63 18 97 04/27/24 07:35 57 L 04/27/24 07:12 63 14 106/63 99 O2 Del Method O2 Flow Rate 04/27/24 12:31 Nasal Cannula 2 04/27/24 12:00 04/27/24 11:37 04/27/24 11:04 Room Air 2 04/27/24 10:30 04/27/24 10:21 Nasal Cannula 2 04/27/24 10:19 04/27/24 10:15 Room Air 04/27/24 09:50 04/27/24 09:48 04/27/24 09:35 04/27/24 09:33 Room Air 04/27/24 08:50 04/27/24 08:45 Room Air 04/27/24 07:35 04/27/24 07:12 Room Air Resident Activity Tracking Resident Involvement: Resident Care Provided Care Provided: Adult Hospital Medicine (4) HTN (hypertension) Hypertension type: unspecified Qualified Code(s): I10 - Essential (primary) hypertension
--- NOTE | 2024-04-27 17:58 | Post Operative Brief Note ---
Immediate Post Op Note Date of Surgery April 27, 2024 Pre & Post Diagnosis Operation Date: 04/27/24 11:40 Pre-Op Diagnosis: bowel Ischemia Post-Op Diagnosis: bowel Ischemia I identified the patient and participated in the time-out.: Yes Procedure Operation Date: 04/27/24 11:40 Actual Procedures p Exploratory Laparotomy(Not Applicable) - Arie Melchor MD, FACS s Bowel Resection, creation of illiostomy(Not Applicable) - Arie Melchor MD, FACS Surgeon Arie Melchor MD, FACS Director [employer] Krish COONEY Estimated Blood Loss 500 Findings Consistent with Post-Op Diagnosis dense adhesions marked dilated colon no gross ischemia Drains Juvenal Drain (19fr with 500ml evacuator), Lynn Catheter and Gheens Drain (0.5 inch)
[2024-04-27] MEDS ORDERED: POTASSIUM CHLORIDE / WTR 10 MEQ/100 ML PLCT IV SCH (18:00)
[2024-04-27] MEDS: NOREPINEPHRINE/D5W 4 MG/250 ML PLCT IV SCH (18:30)
--- NOTE | 2024-04-27 18:36 | Operative Report ---
[facility] Post Operative Report Pre & Post Diagnosis Operation Date: 04/27/24 11:40 Pre-Op Diagnosis: bowel Ischemia Post-Op Diagnosis: bowel Ischemia pneumatosis intestinalis of colon I identified the patient and participated in the time-out.: Yes Procedure Operation Date: 04/27/24 11:40 Actual Procedures p Exploratory Laparotomy(Not Applicable) - Arie Melchor MD, FACS s Bowel Resection, creation of illiostomy(Not Applicable) - Arie Melchor MD, FACS The patient was brought into the operating theater general endotracheal anesthes ia arterial line placed by anesthesia Lynn catheter inserted the abdomen was prepped Betadine solution properly draped a timeout was had the patient was identified made an incision above and below the umbilicus extending approximately 20 cm deep into subcutaneous tissue through the old scar into the abdomen once we entered the abdomen was seen markedly dilated transverse colon although no gross ischemic changes was noted on the outside there is no crepitation appreciated we then extended the incision distally and proximally to get better access for the markedly dilated colon which pretty much closed from the ileocecal valve to the descending colon the patient had previous abdominal surgery including an open cholecystectomy hysterectomy and a history of cirrhosis and portal hypertension we started our dissection to free up the right colon were met the significant adhesions underneath the liver and hepatic flexure took a while to free this up from the liver and the surrounding tissue ligating any adhesion and mobilizing the right colon so we could deliver it to the well and we continue to towards the transverse colon were divided the greater omentum and a plane of dissection within the stomach and the colon was identified with continued then for the splenic flexure it 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 No marked edema was appreciated in the after having accomplished this then we divided the mesentery to the transverse colon using a ligature and circumferentially around completely around 2 we were able to deliver the colon from the terminal ileum and down to the sigmoid rectal junction once this had be en completed we then divided the terminal ileum approximately 10 cm from the ileocecal valve using a CHRISTINE similarly used the CHRISTINE to divide the descending colon sigmoid rectal junction once the specimen was removed we will check to have the for hemostasis there was some oozing as stated generalized to be controlled with Surgicel patient towards the splenic area placing some Gelfoam and pressure irrigated the abdomen 1 more through the hemostasis was fairly under control. This point placed the left lower quadrant stab wound a Juvenal drain down in the cul-de-sac attaching the skin edge with 2-0 silk suture we mobilized the terminal ileum sufficiently so that we could deliver make an ileostomy there was hard to palpate the anterior superior iliac crest on the patient but we were not along the umbilicus and just above it when we elevated skin and subcutaneous tissue circumferentially around it created a opening approximately 3 cm dissecting subcutaneous tissue anterior and anterior abdominal wall but we made a cruciate ligaments and we were out of the rectus abdominis muscle fascia we then dilated went into the abdomen using 2 fingers to dilate the tract the terminal ileum but we had mobilized significant with brought out through the opening in the abdominal wall using 3-0 silk intra- abdominal he took 3 stitches of interrupted silk from the terminal ileum as it entered the abdominal wall and attached about the abdominal wall to avoid any rotation similarly we have oriented the ileum as it came out with a suture of silk to justify and avoid any torsion once has been completed we cannot make sure if at this time we irrigated again copiously the abdomen making sure there is no active bleeding and appears satisfactory we then closed the abdomen using an 0 PDS starting 1 cephalad and 1 caudad subcutaneous tissue half-inch Leroy drain was placed and dionne appreciated the ileostomy was then matured using 2- 0 chromic suture taking bites of the skin subcutaneous tissue down to the wall of the diameter all the way to the open area where we had amputated the staple line trying to make a row set the initial bleeding it made to create urostomy was bigger than the ileostomy itself therefore laterally we closed the subcutaneous tissue with chromic suture the ileostomy was viable and inserted a finger without any tension appreciated a colostomy bag was applied the procedure was tolerated well by the patient estimated blood loss 500 cc Addendum Trudy Molina physician mechanic assistant was present throughout the case and after retraction exposure wound closure I spoke with her son and power of staff attorney in the waiting area Surgeon Arie Melchor MD, FACS Habilitation Training Specialist Krish COONEY Estimated Blood Loss 500 Findings Consistent with Post-Op Diagnosis Markedly dilated colon no evidence of ischemia externally on the colon Specimens Subtotal colectomy Drains Half-inch Leroy in the subcu incision Complications None Indications Pneumatosis intestinalis of the colon with acute abdomen Description of Procedure merda I attest to the content of the Intraoperative Record and any orders documented therein. Any exceptions are noted below.
[2024-04-27] MEDS ORDERED: STAT IV Infusion **Titration per Protocol STA ×3 (18:53→20:04)
--- NOTE | 2024-04-27 18:55 | Anesthesiology Progress Note ---
Date of Service April 27, 2024 Anesthesia Post Procedure Vital Signs Vital Signs: Temp Pulse Pulse Resp BP BP Pulse Ox 04/27/24 18:34 63 20 100 04/27/24 12:31 57 L 18 127/91 97 04/27/24 12:00 57 L 04/27/24 11:37 107/50 L 04/27/24 11:04 62 16 97/42 L 99 04/27/24 10:30 101/48 L 04/27/24 10:21 55 L 19 98 04/27/24 10:19 94/44 L 04/27/24 10:15 88 L 04/27/24 09:50 36.7 C 04/27/24 09:48 95/43 L 04/27/24 09:35 88/51 L 04/27/24 09:33 63 14 97 04/27/24 08:50 101/56 L 04/27/24 08:45 63 18 97 04/27/24 07:35 57 L 04/27/24 07:12 63 14 106/63 99 O2 Del Method O2 Flow Rate FiO2 04/27/24 18:34 70 04/27/24 12:31 Nasal Cannula 2 04/27/24 12:00 04/27/24 11:37 04/27/24 11:04 Room Air 2 04/27/24 10:30 04/27/24 10:21 Nasal Cannula 2 04/27/24 10:19 04/27/24 10:15 Room Air 04/27/24 09:50 04/27/24 09:48 04/27/24 09:35 04/27/24 09:33 Room Air 04/27/24 08:50 04/27/24 08:45 Room Air 04/27/24 07:35 04/27/24 07:12 Room Air Pain Intensity Right Hip: Pain Intensity: 8 Notes Mental Status: see notes below Nausea / Vomiting: see Notes below Pain: see Notes below Airway Patency, RR, SpO2: see Notes below BP & HR: see Notes below Hydration State: see Notes below Anesthetic Complications: no major complications apparent and see Notes below Notes: Pt. had exploratory laparotomy. Pt has multiple co-morbidities. Pt remains intubated transferred to ICU and placed on mechanical ventilator as per ICU protocol. Pt. last took apixaban yesterday,is thrombocytopenic and has an unusual blood antibody requiring PRBC's from [place],that have yet to arrive. Pt is requiring vasoactive agent for BP,which is soft. ICU is starting norepinephrine via a left EJ vein catheter.Pt is likely to require PRBC transfusion. Pt is critical. Report was given to ICU team.
--- NOTE | 2024-04-27 19:10 | XRay Report ---
PORTABLE SUPINE AP CHEST RADIOGRAPH CLINICAL HISTORY: post op intubation COMPARISON STUDY: Chest radiograph performed earlier today. FINDINGS: Tip of endotracheal tube is 2.8 cm above the dejan. There is no pneumothorax or pleural ef fusion. Moderate cardiomegaly is again noted. There is no evidence for pulmonary edema. Apparent hazy left basilar opacity is likely artifactual. IMPRESSION: 1. Satisfactory positioning of the endotracheal tube 2. Cardiomegaly. No evidence for pulmonary edema. ACT 112: Negative or not required by law. Electronically signed by: Eris Friedman M.D. 04/27/2024 7:07 PM
[2024-04-27] MEDS ORDERED: PROPOFOL BOLUS FROM BAG IV PRN (19:11)
[2024-04-27] MEDS: NOREPINEPHRINE/D5W 4 MG/250 ML IV ONE (19:13)
[2024-04-27 19:26] LABS: iSTAT Art Bld Gas pCO2 Correct 22 mmHg (35-46); iSTAT Art Bld Gas pH Corrected 7.247 (7.35-7.45); iSTAT Arterial Blood Gas HCO3 10 meg/L (19-24); iSTAT Arterial Blood Gas pCO2 25 mmHg (35-46); iSTAT Arterial Blood Gas pH 7.22 (7.35-7.45); iSTAT Arterial Blood Gas pO2 384 mmHg (80-95); iSTAT Arterial Blood Gas pO2 C 371; iSTAT Carbon Dioxide 11 mmol/L (24-31); iSTAT FiO2 70 %; iSTAT Hematocrit 20 % (37-47); iSTAT Hemoglobin 6.8 g/dl (12.0-16.0); iSTAT Potassium 3.2 mmol/L (3.3-5.0); iSTAT Site Art Line; iSTAT Sodium 142 mmol/L (135-144)
[2024-04-27] MEDS: SODIUM BICARB 8.4% INJ 50 MEQ/50 ML SYR IV STA ×2 (19:41)
[2024-04-27] MEDS: fentaNYL citrate 2,500 MCG/250 ML BAG IV SCH (19:43)
[2024-04-27] MEDS: SODIUM BICARB 8.4% INJ 50 MEQ/50 ML SYR IV ONE (19:46)
[2024-04-27] MEDS: VASOPRESSIN 20 UNITS in SODIUM CHLORIDE 0.9% 100 ML IV SCH (19:50)
[2024-04-27] MEDS: MIDAZOLAM HCL 125MG/250ML D5W IV ONE (19:50)
[2024-04-27] MEDS: fentaNYL citrate 2,500 MCG/250 ML BAG IV ONE (19:50)
--- NOTE | 2024-04-27 19:57 | Procedure Note ---
Procedure Note Date of Service April 27, 2024 INTERNAL JUGULAR CENTRAL LINE PROCEDURE NOTE: Procedure: Internal Jugular Central Line Placement Attending: Dr. Rell Goetz Provider: ANDREW Aguilar Indication: Central Drug Administration, Poor Venous Access, Multiple Lab Draws Necessary, etc. Anesthesia: Lidocaine 1% Line placed emergently in the setting of septic shock requiring vasopressor support and mechanically ventilated patient postop. A time-out was completed verifying correct patient, procedure, site, positioning, and implants(s) or special equipment if applicable. Patient's right Neck was cleansed and draped in the typical sterile fashion using Chloraprep. The Internal Jugular Vein and Carotid Artery were identified using ultrasound. The superficial tissue was anesthetized using 3 mL of 1% lidocaine without epinephrine under direct visualization with the ultrasound. After adequate anesthetization was achieved, the Internal Jugular vein was cannulated under direct ultrasound guidance using an introducer needle on a syringe. Good venous blood return was maintained prior to removal of syringe from introducer needle. Using Seldinger Technique, a guide wire was advanced through the introducer needle without resistance. The introducer needle was removed and ultrasound images were obtained of the guide wire within the Internal Jugular Vein and saved to the patient's medical record. A small incision was made in penetrating fashion at the guide wire insertion site utilizing an 11 blade scalpel. The dilator was advanced to the vessel without resistance. The dilator was exchanged for the triple lumen catheter which was advanced into the vessel without resistance. The guide wire was removed intact from the catheter without issue. Claves were placed on each catheter tip with confirmation of good blood flow from each lumen. Each port was easily flushed with sterile saline. The catheter was placed at 16 cm and sutured in place. BioPatch was applied to the catheter and a sterile Tegaderm dressing was applied over the catheter with careful attention to sterility. Patient tolerated procedure well. No immediate complications were met. Post procedure x-ray was completed, placement was appropriate and no pneumothorax was noted. Procedural Ultrasound Guidance: Procedure Date: 04/27/2024 Indication: CVC Insertion Attending: Dr. Rell Goetz Provider: ANDREW Aguilar Artery AND Vein visualized: yes Compressible Vein: yes Guidewire or Short Catheter seen in vein prior to dilation: yes Line confirmed in Vein with ultrasound: yes [facility] Procedure Codes (Charges) Tubes, Drains, and Vasc Access Procedure 1: Tubes, Drains, and Vasc Access: [id number] Insertion Of Non-tunneled Catheter Age 3 Yrs> Procedure 2: Tubes, Drains, and Vasc Access: [id number] Ultrasound Guidance For Vascular Coding CPT Codes Tubes, Drains, and Vasc Access - Tubes, Drains, and Vasc Access: [id number] Insertion Of Non-tunneled Catheter Age 3 Yrs> ([id number]) Tubes, Drains, and Vasc Access - Tubes, Drains, and Vasc Access: [id number] Ultrasound Guidance For Vascular ([id number]) Additional Codes Date of Service ([email or web address])
[2024-04-27] MEDS ORDERED: MIDAZOLAM BOLUS FROM BAG IV PRN (20:04)
[2024-04-27] MEDS: POTASSIUM CHLORIDE / WTR 20 MEQ/100 ML PLCT IV ONE (20:10)
[2024-04-27] MEDS: MIDAZOLAM HCL 125 MG/250 ML BAG IV SCH (20:11)
[2024-04-27 20:15] LABS: Hematocrit (blood only) 16.9 % (37.0-47.0); Hemoglobin 5.5 g/dl (12.0-16.0); Mean Corpuscular Hemoglobin 29.9 pg (25.0-34.0); Mean Corpuscular Hgb Conc 32.5 g/dL (32.0-36.0); Mean Corpuscular Volume 91.8 fL (80.0-100.0); Mean Platelet Volume 11.4 fL (9.4-12.4); Nucleated RBC # (auto) 0.02 K/uL (0.00-0.12); Nucleated RBC % (auto) 0.4 %; Platelet Count 116 K/uL (130-400); RDW Coefficient of Variation 16.2 % (11.5-14.5); RDW Standard Deviation 54.4 fL (36.4-46.3); Red Blood Count 1.84 M/uL (4.20-5.40); White Blood Count 5.28 K/ul (4.8-10.8)
[2024-04-27 20:26] LABS: Basophils # (auto) 0.01 K/uL (0.00-0.20); Basophils % (auto) 0.2 %; Eosinophils # (auto) 0.17 K/uL (0.00-0.50); Eosinophils % (auto) 3.2 %; Immature Granulocytes # (auto) 0.03 K/uL (0.01-0.20); Immature Granulocytes % (auto) 0.6 %; Lymphocytes # (auto) 0.98 K/uL (1.20-3.40); Lymphocytes % (auto) 18.6 %; Monocytes # (auto) 0.41 K/uL (0.11-0.59); Monocytes % (auto) 7.8 %; Neutrophils # (auto) 3.68 K/uL (1.40-6.50); Neutrophils % (auto) 69.6 %; Polychromasia 1+
[2024-04-27 20:48] LABS: Albumin Globulin Ratio 1.3 (0.9-2); Albumin Level 1.8 gm/dl (3.4-5.0); BUN Creatinine Ratio 21.4 (10-20); Bilirubin,Total 0.8 mg/dl (0.2-1.0); Calcium 6.5 mg/dl (8.6-10.3); Creatinine Clr Calc Pharmacy 21.8 ml/min; Globulin 1.4 gm/dl (2.5-4.0); Magnesium 1.6 mg/dl (1.7-2.4); Phosphorus 5.2 mg/dl (2.5-4.9); Total Protein 3.2 gm/dl (6.0-8.3)
[2024-04-27] MEDS: PIPERACILLIN/TAZOBACTAM 4.5 GM/100 ML BAG IV SCH (20:53)
[2024-04-27] MEDS: KCENTRA (500unit vial) 2000 units IVP IV ONE (20:54)
[2024-04-27] MEDS: PLASMA-LYTE A 1,000 ML IV SCH (20:56)
[2024-04-27] MEDS: PANTOprazole 40 MG in SYRINGE 0 ML IV SCH (21:04)
[2024-04-27] MEDS: POTASSIUM CHLORIDE / WTR 20 MEQ/100 ML PLCT IV SCH (22:39)
[2024-04-27] MEDS: CALCIUM CHLORIDE 10% 1,000 MG in DEXTROSE 5% 50 ML IV STA (23:08)
[2024-04-27] MEDS: MAGNESIUM SULFATE / D5W 1 GM/100 ML BAG IV SCH (23:13)
[2024-04-27] MEDS ORDERED: GLUCAGON FOR INJ 1 MG VIAL SQ PRN (23:30)
[2024-04-27] MEDS ORDERED: GLUCOSE 40% GEL 15 GM TUBE PO PRN (23:30)
[2024-04-27] MEDS ORDERED: GLUCOSE 10 TAB/TUBE PO PRN (23:30)
[2024-04-27] MEDS ORDERED: DEXTROSE 50% 50 ML SYRINGE IV PRN (23:30)
[2024-04-27] MEDS ORDERED: CARBOHYDRATES FOR HYPOGLYCEMIA PO PRN (23:30)
[2024-04-27] MEDS ORDERED: PHARMACY GLYCEMIC MGMT CONSULT PRN (23:30)
[2024-04-27] MEDS: propofoL 1,000 MG/100 ML VIAL IV SCH (23:43)
[2024-04-28] MEDS: INSULIN ASPART PER UNIT CHARGE SC SCH (00:25)
[2024-04-28 00:29] LABS: Hemoglobin 8.4 g/dl (12.0-16.0); Mean Corpuscular Hgb Conc 33.6 g/dL (32.0-36.0); Mean Corpuscular Volume 89.3 fL (80.0-100.0); Mean Platelet Volume 10.8 fL (9.4-12.4); Platelet Count 96 K/uL (130-400); RDW Coefficient of Variation 15.1 % (11.5-14.5); RDW Standard Deviation 49.1 fL (36.4-46.3); White Blood Count 10.71 K/ul (4.8-10.8)
[2024-04-28 04:02] LABS: Basophils # (auto) 0.03 K/uL (0.00-0.20); Basophils % (auto) 0.2 %; Eosinophils % (auto) 2.4 %; Hematocrit (blood only) 24.9 % (37.0-47.0); Hemoglobin 8.4 g/dl (12.0-16.0); Immature Granulocytes # (auto) 0.04 K/uL (0.01-0.20); Immature Granulocytes % (auto) 0.3 %; Lymphocytes # (auto) 1.25 K/uL (1.20-3.40); Lymphocytes % (auto) 9.9 %; Mean Corpuscular Hemoglobin 29.9 pg (25.0-34.0); Mean Corpuscular Hgb Conc 33.7 g/dL (32.0-36.0); Mean Corpuscular Volume 88.6 fL (80.0-100.0); Mean Platelet Volume 11.2 fL (9.4-12.4); Monocytes # (auto) 1.16 K/uL (0.11-0.59); Monocytes % (auto) 9.1 %; Neutrophils # (auto) 9.91 K/uL (1.40-6.50); Neutrophils % (auto) 78.1 %; Nucleated RBC # (auto) 0.02 K/uL (0.00-0.12); Nucleated RBC % (auto) 0.2 %; Platelet Count 114 K/uL (130-400); RDW Coefficient of Variation 15.6 % (11.5-14.5); RDW Standard Deviation 50.3 fL (36.4-46.3); Red Blood Count 2.81 M/uL (4.20-5.40); White Blood Count 12.69 K/ul (4.8-10.8)
[2024-04-28 04:19] LABS: iSTAT Art Bld Gas pCO2 Correct 29 mmHg (35-46); iSTAT Art Bld Gas pH Corrected 7.245 (7.35-7.45); iSTAT Arterial Blood Gas HCO3 13 meg/L (19-24); iSTAT Arterial Blood Gas pCO2 30 mmHg (35-46); iSTAT Arterial Blood Gas pH 7.24 (7.35-7.45); iSTAT Arterial Blood Gas pO2 131 mmHg (80-95); iSTAT Arterial Blood Gas pO2 C 126; iSTAT Carbon Dioxide 14 mmol/L (24-31); iSTAT FiO2 30 %; iSTAT Hematocrit 25 % (37-47); iSTAT Hemoglobin 8.5 g/dl (12.0-16.0); iSTAT Potassium 3.6 mmol/L (3.3-5.0); iSTAT Site Art Line; iSTAT Sodium 141 mmol/L (135-144)
[2024-04-28 04:37] LABS: Albumin Globulin Ratio 1.4 (0.9-2); Albumin Level 2.3 gm/dl (3.4-5.0); Bilirubin,Total 1.6 mg/dl (0.2-1.0); Calcium 7.6 mg/dl (8.6-10.3); Creatinine Clr Calc Pharmacy 20.1 ml/min; Globulin 1.6 gm/dl (2.5-4.0); Magnesium 2.4 mg/dl (1.7-2.4); Phosphorus 3.5 mg/dl (2.5-4.9); Potassium 3.6 mmol/L (3.5-5.1); Total Protein 3.9 gm/dl (6.0-8.3)
--- NOTE | 2024-04-28 07:10 | Critical Care Progress Note ---
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 Critical care indication:Need for pressor support, mechanically ventilated post-operatively Plan: Neurologic pt is currently post-op intubated and on ventilator Cardiac Hypotension in the setting of acute bowel ischemia pt required pressor support throughout surgery on levophed and vasopressin, wean as tolerated HTN Aortic stenosis HFpEF with diastolic dysfunction last EF 50-55% on echo 11/2022 home eliquis, furosemide, spironolactone, propranolol all held in the setting of hypotension Respiratory hx ROSALES on mechanical ventilation postoperatively plan to attempt SBT tomorrow Gastrointestinal Diet: NPOpost-op bowel resection Bowel ischemia CT abd 04/27; extensive pneumatosis involving majority of colon and rectum, extraluminal gas, cirrhotic liver, trace ascites s/p bowel resection with ileostomy on 04/27 Renal/electrolytes CKD stage 3b baseline Cr appears to be 1.7-1.9 EMY Cr on admission 2.69, now 2.43 will replete electrolytes as needed ionized calcium level wnl received 2L IVF during operative period, now on plasmalyte 80/hr Genitourinary No acute concerns at this time Martino catheter draining normal-appearing urine at this time Strict I/O's Endocrine DMT2, insulin dependent last HA1c in January 2024; 8.2% Continue ISS per protocol Hypothyroidism continue home levothyroxine as soon as able Hematologic Chronic anemia MGUS baseline hgb appears to be 10-11 EBL noted to be ~500 mL from resection on 04/27 s/p 2 units blood 04/27 for hemoglobin drop 10.5 preop -> 5.5 postop fibrinogen level wnl stable at 8.3 Infectious disease Afebrile since admission WBC 10 -> 12.7 today on zosyn for empiric coverage given bowel ischemia and s/p bowel resection Integumentary Some bruises noted on skin, pt is on blood thinner at home Lines/access PIVs intact, arterial line, EJ line in place, IJ line in place martino Prophylaxis DVT ppx: deferred in the immediate post-op period due to risk of bleeding GI ppx: protonix IV Thank you the opportunity to participate in this patient's care. Please see attending documentation for further recommendations. Admission and Anticipated Discharge Date Admission Date: April 27, 2024 Supervising Physician Co-Signing Physician Notes Dr. Ayers was resident physician during care of patient. I separately evaluated patient for almanzar portions of the history and the exam. I was present during the critical portion of medical decision making, and I discussed the case with the resident. I generally agree with the findings and plan. Discussed case with general surgery. Repeating labs. At risk for ongoing blood loss, we have 2 units of typed and crossed red cells given her inhibitor history. Contraindicated from systemic anticoagulation, rechecking coagulation profile and ionized calcium. Monitoring total fluid. Patient DNR in event of cardiac arrest. Subjective Today, pt is still ventilated and sedated. No signs of acute distress. Does not awake to verbal stimuli or touch. Review of Systems Review of Systems: Unobtainable due to endotracheal tube Physical Exam Physical Exam: General: Intubated, sedated but no acute distress apparent Resp: Intubated and on ventilator, lungs clear to auscultation from anterior auscultation, unable to position patient due to ventilator status Cardio: Irregular rhythm, rate in the 60s GI: Ileostomy in place with blood in bag, drain on L side abdomen draining bloody fluid Skin: Dry, pale appearing Results & Data Results & Data Vital Signs (Past 12 Hours) Vital Signs Temp Pulse Resp BP Pulse Ox FiO2 04/28/24 06:16 128/44 L 04/28/24 06:16 128/44 L 04/28/24 06:15 36.7 C 61 20 100 04/28/24 06:03 36.7 C 63 20 100 04/28/24 06:01 122/40 L 04/28/24 06:01 122/40 L 04/28/24 06:01 122/40 L 04/28/24 06:01 122/40 L 04/28/24 06:00 36.7 C 64 19 100 04/28/24 05:46 123/42 L 04/28/24 05:45 36.6 C 63 20 100 04/28/24 05:31 136/55 L 04/28/24 05:31 136/55 L 04/28/24 05:30 36.5 C 64 18 100 04/28/24 05:09 36.4 C L 65 20 100 04/28/24 04:46 111/36 L 04/28/24 04:45 36.3 C L 67 17 100 04/28/24 04:31 119/53 L 04/28/24 04:30 36.4 C L 68 17 100 04/28/24 04:24 36.4 C L 69 18 100 04/28/24 04:16 117/47 L 04/28/24 04:13 68 18 100 30 04/28/24 04:06 36.4 C L 68 18 100 04/28/24 04:01 116/48 L 04/28/24 04:01 116/48 L 04/28/24 04:00 30 04/28/24 03:57 36.3 C L 69 19 100 04/28/24 03:46 113/68 04/28/24 03:46 113/68 04/28/24 03:46 113/68 04/28/24 03:46 113/68 04/28/24 03:45 36.2 C L 67 17 100 04/28/24 03:36 36.1 C L 69 18 100 04/28/24 03:31 115/45 L 04/28/24 03:27 36.0 C L 69 17 100 04/28/24 03:17 123/44 L 04/28/24 03:09 35.9 C L 69 17 100 04/28/24 03:01 97/50 L 04/28/24 02:57 35.7 C L 70 17 100 04/28/24 02:48 35.7 C L 69 17 100 04/28/24 02:46 117/51 L 04/28/24 02:46 117/51 L 04/28/24 02:46 117/51 L 04/28/24 02:46 117/51 L 04/28/24 02:46 117/51 L 04/28/24 02:31 110/45 L 04/28/24 02:31 110/45 L 04/28/24 02:27 35.5 C L 67 19 100 04/28/24 02:18 35.4 C L 67 20 100 04/28/24 02:16 113/55 L 04/28/24 02:01 122/39 L 04/28/24 02:00 35.2 C L 70 18 100 04/28/24 01:46 103/47 L 04/28/24 01:46 103/47 L 04/28/24 01:42 35.1 C L 70 15 100 04/28/24 01:33 35.1 C L 67 15 100 04/28/24 01:31 114/74 04/28/24 01:31 114/74 04/28/24 01:17 121/53 L 04/28/24 01:17 121/53 L 04/28/24 01:12 35.0 C L 69 15 100 04/28/24 01:01 80/36 L 04/28/24 01:01 80/36 L 04/28/24 01:01 80/36 L 04/28/24 01:00 35.0 C L 78 15 100 04/28/24 00:46 121/43 L 04/28/24 00:45 34.9 C L 71 16 100 04/28/24 00:36 34.8 C L 72 19 100 04/28/24 00:31 115/74 04/28/24 00:27 34.7 C L 70 21 100 04/28/24 00:18 34.7 C L 67 18 100 04/28/24 00:16 119/57 L 04/28/24 00:09 34.6 C L 70 18 99 04/28/24 00:00 82 04/28/24 00:00 30 04/27/24 23:15 34.5 C L 70 18 100 04/27/24 23:05 78 17 100 30 04/27/24 23:03 34.5 C L 68 17 133/53 L 100 04/27/24 23:00 34.5 C L 75 17 100 04/27/24 22:57 34.5 C L 70 17 100 04/27/24 22:53 34.5 C L 70 17 132/54 L 100 04/27/24 22:46 128/68 04/27/24 22:46 128/68 04/27/24 22:46 128/68 04/27/24 22:39 34.4 C L 80 18 100 04/27/24 22:31 124/63 04/27/24 22:27 34.4 C L 72 18 99 04/27/24 22:24 34.3 C L 76 19 99 04/27/24 22:21 34.3 C L 75 19 130/56 L 99 04/27/24 22:16 126/54 L 04/27/24 22:09 34.3 C L 77 18 100 04/27/24 22:06 34.3 C L 72 19 100 04/27/24 22:01 132/79 04/27/24 22:01 132/79 04/27/24 21:53 34.2 C L 75 19 137/54 L 100 04/27/24 21:46 121/51 L 04/27/24 21:42 34.2 C L 75 19 100 04/27/24 21:31 113/65 04/27/24 21:27 34.2 C L 71 19 100 04/27/24 21:23 34.2 C L 71 19 124/53 L 100 04/27/24 21:18 34.2 C L 73 19 99 04/27/24 21:16 111/76 04/27/24 21:16 111/76 04/27/24 21:16 111/76 04/27/24 21:16 111/76 04/27/24 21:08 34.2 C L 73 19 110/57 L 99 04/27/24 21:02 110/57 L 04/27/24 20:52 34.2 C L 66 18 127/53 L 99 04/27/24 20:50 34.2 C L 71 19 130/70 100 04/27/24 20:48 34.2 C L 71 20 100 04/27/24 20:46 130/70 04/27/24 20:33 34.2 C L 67 21 100 04/27/24 20:31 117/58 L 04/27/24 20:29 34.2 C L 66 20 117/58 L 100 04/27/24 20:24 34.2 C L 70 20 100 04/27/24 20:15 34.2 C L 70 18 94 04/27/24 20:14 34.2 C L 67 17 98/55 L 91 04/27/24 20:12 98/55 L 04/27/24 20:12 98/55 L 04/27/24 20:12 98/55 L 04/27/24 20:12 98/55 L 04/27/24 20:00 40 04/27/24 19:57 34.2 C L 71 24 100 04/27/24 19:57 34.2 C L 65 21 130/49 L 100 04/27/24 19:54 34.2 C L 64 23 78 L 04/27/24 19:30 34.4 C L 67 22 86 L 04/27/24 19:15 34.6 C L 80 21 79 L Critical Care Time I have personally spent 60 minutes of critical care time in the direct management of this patient. This is a life/limb threatening event. This includes time spent evaluating patient, direct bedside care, chart review, placing orders, interpretation of diagnostic studies, discussion with consultants, patient, and/or family members regarding treatment decisions, as well as other required patient management activities. This time is exclusive of all separately billable procedures, and teaching time and separate from and in addition to any other critical care service time. (4) HTN (hypertension) Hypertension type: unspecified Qualified Code(s): I10 - Essential (primary) hypertension
--- NOTE | 2024-04-28 07:21 | Billing Data ---
Date of Service April 28, 2024 Coding Level of Care Code 79758 CRITICAL CARE
--- NOTE | 2024-04-28 07:54 | XRay Report ---
XR chest 1V portable CLINICAL HISTORY: central line placement COMPARISON STUDY: Chest radiograph April 27, 2024 at 6:55 PM. FINDINGS: There is no pneumothorax following placement of a right internal jugular central line. Cath eter tip projects over the distal SVC. Tip of endotracheal tube is 3 cm above the dejan. Cardiomegal y is again noted. There are suspected trace bilateral pleural effusions. No vascular congestion is no derek. There is left basilar opacity. IMPRESSION: 1. No pneumothorax. Placement of a right internal jugular central line. 2. Appropriately positioned endotracheal tube. 3. Cardiomegaly with pulmonary vascular congestion. 4. Left basilar airspace opacity. This could reflect atelectasis or pneumonia/aspiration pneumonitis. ACT 112: Negative or not required by law. Electronically signed by: Eris Friedman M.D. 04/28/2024 7:52 AM
[2024-04-28 08:15] LABS: Hematocrit (blood only) 24.3 % (37.0-47.0); Hemoglobin 8.3 g/dl (12.0-16.0)
[2024-04-28 08:41] LABS: Fibrinogen 189 mg/dl (184-400); INR 1.1 (0.9-1.1); Partial Thromboplastin Ratio 1.1; Partial Thromboplastin Time 29 Seconds (21-31); Prothrombin Time 11.9 Seconds (9.0-12.0)
--- NOTE | 2024-04-28 09:01 | Surgery Progress Note ---
Date of Service April 28, 2024 Assessment & Plan (1) Ischemia, bowel: Plan: Patient is 12 hours postop subtotal colectomy ileostomy for extensive pneumatosis intestinalis At this time still on pressors intubated Hemoglobin appears stable renal function the same Discussed the operative findings and present therapy with the wallpaperer Nutritional status will be addressed within 24 hours Admission and Anticipated Discharge Date Admission Date: April 27, 2024 Subjective Patient presently remains intubated on vasopressors Physical Exam Physical Exam: The abdomen distended abdominal incision intact ileostomy viable with minimal o utput Results & Data Vital Signs (Past 12 Hours) Vital Signs Temp Pulse Resp BP BP Pulse Ox FiO2 04/28/24 08:27 110/37 L 04/28/24 08:07 60 20 100 30 04/28/24 06:16 128/44 L 04/28/24 06:16 128/44 L 04/28/24 06:15 36.7 C 61 20 100 04/28/24 06:03 36.7 C 63 20 100 04/28/24 06:01 122/40 L 04/28/24 06:01 122/40 L 04/28/24 06:01 122/40 L 04/28/24 06:01 122/40 L 04/28/24 06:00 36.7 C 64 19 100 04/28/24 05:46 123/42 L 04/28/24 05:45 36.6 C 63 20 100 04/28/24 05:31 136/55 L 04/28/24 05:31 136/55 L 04/28/24 05:30 36.5 C 64 18 100 04/28/24 05:09 36.4 C L 65 20 100 04/28/24 04:46 111/36 L 04/28/24 04:45 36.3 C L 67 17 100 04/28/24 04:31 119/53 L 04/28/24 04:30 36.4 C L 68 17 100 04/28/24 04:24 36.4 C L 69 18 100 04/28/24 04:16 117/47 L 04/28/24 04:13 68 18 100 30 04/28/24 04:06 36.4 C L 68 18 100 04/28/24 04:01 116/48 L 04/28/24 04:01 116/48 L 04/28/24 04:00 30 04/28/24 03:57 36.3 C L 69 19 100 04/28/24 03:46 113/68 04/28/24 03:46 113/68 04/28/24 03:46 113/68 04/28/24 03:46 113/68 04/28/24 03:45 36.2 C L 67 17 100 04/28/24 03:36 36.1 C L 69 18 100 04/28/24 03:31 115/45 L 04/28/24 03:27 36.0 C L 69 17 100 04/28/24 03:17 123/44 L 04/28/24 03:09 35.9 C L 69 17 100 04/28/24 03:01 97/50 L 04/28/24 02:57 35.7 C L 70 17 100 04/28/24 02:48 35.7 C L 69 17 100 04/28/24 02:46 117/51 L 04/28/24 02:46 117/51 L 04/28/24 02:46 117/51 L 04/28/24 02:46 117/51 L 04/28/24 02:46 117/51 L 04/28/24 02:31 110/45 L 04/28/24 02:31 110/45 L 04/28/24 02:27 35.5 C L 67 19 100 04/28/24 02:18 35.4 C L 67 20 100 04/28/24 02:16 113/55 L 04/28/24 02:01 122/39 L 04/28/24 02:00 35.2 C L 70 18 100 04/28/24 01:46 103/47 L 04/28/24 01:46 103/47 L 04/28/24 01:42 35.1 C L 70 15 100 04/28/24 01:33 35.1 C L 67 15 100 04/28/24 01:31 114/74 04/28/24 01:31 114/74 04/28/24 01:17 121/53 L 04/28/24 01:17 121/53 L 04/28/24 01:12 35.0 C L 69 15 100 04/28/24 01:01 80/36 L 04/28/24 01:01 80/36 L 04/28/24 01:01 80/36 L 04/28/24 01:00 35.0 C L 78 15 100 04/28/24 00:46 121/43 L 04/28/24 00:45 34.9 C L 71 16 100 04/28/24 00:36 34.8 C L 72 19 100 04/28/24 00:31 115/74 04/28/24 00:27 34.7 C L 70 21 100 04/28/24 00:18 34.7 C L 67 18 100 04/28/24 00:16 119/57 L 04/28/24 00:09 34.6 C L 70 18 99 04/28/24 00:00 82 04/28/24 00:00 30 04/27/24 23:15 34.5 C L 70 18 100 04/27/24 23:05 78 17 100 30 04/27/24 23:03 34.5 C L 68 17 133/53 L 100 04/27/24 23:00 34.5 C L 75 17 100 04/27/24 22:57 34.5 C L 70 17 100 04/27/24 22:53 34.5 C L 70 17 132/54 L 100 04/27/24 22:46 128/68 04/27/24 22:46 128/68 04/27/24 22:46 128/68 04/27/24 22:39 34.4 C L 80 18 100 04/27/24 22:31 124/63 04/27/24 22:27 34.4 C L 72 18 99 04/27/24 22:24 34.3 C L 76 19 99 04/27/24 22:21 34.3 C L 75 19 130/56 L 99 04/27/24 22:16 126/54 L 04/27/24 22:09 34.3 C L 77 18 100 04/27/24 22:06 34.3 C L 72 19 100 04/27/24 22:01 132/79 04/27/24 22:01 132/79 04/27/24 21:53 34.2 C L 75 19 137/54 L 100 04/27/24 21:46 121/51 L 04/27/24 21:42 34.2 C L 75 19 100 04/27/24 21:31 113/65 04/27/24 21:27 34.2 C L 71 19 100 04/27/24 21:23 34.2 C L 71 19 124/53 L 100 04/27/24 21:18 34.2 C L 73 19 99 04/27/24 21:16 111/76 04/27/24 21:16 111/76 04/27/24 21:16 111/76 04/27/24 21:16 111/76 04/27/24 21:08 34.2 C L 73 19 110/57 L 99 04/27/24 21:02 110/57 L Laboratory Results Noted hemoglobin stable at this time received 2 units postoperative
--- NOTE | 2024-04-28 11:48 | Hospitalist Progress Note ---
Date of Service April 28, 2024 Assessment & Plan (1) Ischemia, bowel: Plan: Suspected on admission. Diffuse colonic pneumatosis seen on CT scan. Appreciate general surgery consultation and recommendations. She underwent total colectomy with ileostomy formation yesterday, April 27. She is currently in the ICU postoperatively on ventilator support and pressure support. Continue intravenous antibiotics for now (2) Diabetes mellitus type 2 in obese: Plan: Currently NPO. Sliding scale coverage ordered (3) Hypomagnesemia: Plan: Treated with parenteral replacement. Serial labs (4) HTN (hypertension): Plan: Oral antihypertensive medications are on hold. Currently requiring pressor support with Levophed and vasopressin (5) Obesity: Plan: Morbidly obese. BMI is greater than 40. Significant weight loss recommended (6) Hypokalemia: Plan: Corrected with parenteral replacement. Serial labs (7) Cirrhosis: Plan: History of Rothman cirrhosis and portal hypertension. Supportive care. Serial labs (8) Acute kidney injury superimposed on stage 3b chronic kidney disease: Plan: Monitor intake and output. Serial labs Plan To be determined. DNR. Admission and Anticipated Discharge Date Admission Date: April 27, 2024 Subjective The patient underwent total colectomy April 27 with ostomy placement. She is intubated and sedated. She is requiring pressure support with Levophed and vasopressin. 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 Obese HEENT-head atraumatic and normocephalic. ETT and OG tubes in place Neck-no lymphadenopathy or thyromegaly, trachea midline Chest-clear to auscultation anteriorly. No rales, wheezing or rhonchi Cardiac-regular rate and rhythm, normal S1 and S2 Abdomen-absent bowel sounds postoperatively. Midline upper abdomen ostomy is in place with no contents in the bag. Extremities-chronic appearing nonpitting edema bilateral lower extremities below the knees Neuro-sedated. Cannot assess Psych-sedated. Cannot assess Results & Data Results & Data Vital Signs (Past 12 Hours) Vital Signs Temp Pulse Resp BP BP Pulse Ox FiO2 04/28/24 11:15 125/36 L 04/28/24 09:16 114/80 04/28/24 09:16 114/80 04/28/24 09:15 36.8 C 59 L 20 100 04/28/24 09:01 149/45 H 04/28/24 09:01 149/45 H 04/28/24 09:01 149/45 H 04/28/24 09:00 36.8 C 61 19 100 04/28/24 08:31 132/39 L 04/28/24 08:27 110/37 L 04/28/24 08:24 36.8 C 58 L 20 100 04/28/24 08:16 120/42 L 04/28/24 08:07 60 20 100 30 04/28/24 08:03 36.8 C 60 17 100 04/28/24 08:01 119/65 04/28/24 08:01 119/65 04/28/24 08:01 119/65 04/28/24 08:01 119/65 04/28/24 08:01 119/65 04/28/24 08:00 30 04/28/24 08:00 60 04/28/24 08:00 62 04/28/24 07:46 123/71 04/28/24 07:46 123/71 04/28/24 07:42 36.9 C 60 19 100 04/28/24 07:31 140/69 04/28/24 07:16 126/78 04/28/24 07:15 36.9 C 60 20 100 04/28/24 07:00 36.8 C 60 19 100 04/28/24 06:16 128/44 L 04/28/24 06:16 128/44 L 04/28/24 06:15 36.7 C 61 20 100 04/28/24 06:03 36.7 C 63 20 100 04/28/24 06:01 122/40 L 04/28/24 06:01 122/40 L 04/28/24 06:01 122/40 L 04/28/24 06:01 122/40 L 04/28/24 06:00 36.7 C 64 19 100 04/28/24 05:46 123/42 L 04/28/24 05:45 36.6 C 63 20 100 04/28/24 05:31 136/55 L 04/28/24 05:31 136/55 L 04/28/24 05:30 36.5 C 64 18 100 04/28/24 05:09 36.4 C L 65 20 100 04/28/24 04:46 111/36 L 04/28/24 04:45 36.3 C L 67 17 100 04/28/24 04:31 119/53 L 04/28/24 04:30 36.4 C L 68 17 100 04/28/24 04:24 36.4 C L 69 18 100 04/28/24 04:16 117/47 L 04/28/24 04:13 68 18 100 30 04/28/24 04:06 36.4 C L 68 18 100 04/28/24 04:01 116/48 L 04/28/24 04:01 116/48 L 04/28/24 04:00 30 04/28/24 03:57 36.3 C L 69 19 100 04/28/24 03:46 113/68 04/28/24 03:46 113/68 04/28/24 03:46 113/68 04/28/24 03:46 113/68 04/28/24 03:45 36.2 C L 67 17 100 04/28/24 03:36 36.1 C L 69 18 100 04/28/24 03:31 115/45 L 04/28/24 03:27 36.0 C L 69 17 100 04/28/24 03:17 123/44 L 04/28/24 03:09 35.9 C L 69 17 100 04/28/24 03:01 97/50 L 04/28/24 02:57 35.7 C L 70 17 100 04/28/24 02:48 35.7 C L 69 17 100 04/28/24 02:46 117/51 L 04/28/24 02:46 117/51 L 04/28/24 02:46 117/51 L 04/28/24 02:46 117/51 L 04/28/24 02:46 117/51 L 04/28/24 02:31 110/45 L 04/28/24 02:31 110/45 L 04/28/24 02:27 35.5 C L 67 19 100 04/28/24 02:18 35.4 C L 67 20 100 04/28/24 02:16 113/55 L 04/28/24 02:01 122/39 L 04/28/24 02:00 35.2 C L 70 18 100 04/28/24 01:46 103/47 L 04/28/24 01:46 103/47 L 04/28/24 01:42 35.1 C L 70 15 100 04/28/24 01:33 35.1 C L 67 15 100 04/28/24 01:31 114/74 04/28/24 01:31 114/74 04/28/24 01:17 121/53 L 04/28/24 01:17 121/53 L 04/28/24 01:12 35.0 C L 69 15 100 04/28/24 01:01 80/36 L 04/28/24 01:01 80/36 L 04/28/24 01:01 80/36 L 04/28/24 01:00 35.0 C L 78 15 100 04/28/24 00:46 121/43 L 04/28/24 00:45 34.9 C L 71 16 100 04/28/24 00:36 34.8 C L 72 19 100 04/28/24 00:31 115/74 04/28/24 00:27 34.7 C L 70 21 100 04/28/24 00:18 34.7 C L 67 18 100 04/28/24 00:16 119/57 L 04/28/24 00:09 34.6 C L 70 18 99 04/28/24 00:00 82 04/28/24 00:00 30 Laboratory Results Abnormal lab results 04/27/24 04/27/24 04/27/24 Range/Units 12:29 19:00 19:15 WBC (4.8-10.8) K/ul RBC 1.84 L (4.20-5.40) M/uL Hgb 5.5 L* D (12.0-16.0) g/dl POC Hgb 6.8 L* (12.0-16.0) g/dl Hct 16.9 L* (37.0-47.0) % POC Hct 20 L* (37-47) % RDW Std Deviation 54.4 H (36.4-46.3) fL RDW Coeff of Leah 16.2 H (11.5-14.5) % Plt Count 116 L (130-400) K/uL Neut # (Auto) (1.40-6.50) K/uL Lymph # (Auto) 0.98 L (1.20-3.40) K/uL Pettis # (Auto) (0.11-0.59) K/uL POC pH 7.22 L (7.35-7.45) POC pCO2 25 L (35-46) mmHg POC pO2 384 H (80-95) mmHg POC HCO3 10 L (19-24) michelle/L POC Total CO2 11 L (24-31) mmol/L POC Base Excess -18.0 L (-9-1.8) michelle/L ABG pH (Temp Correct) 7.247 L (7.35-7.45) ABG pCO2 (Temp Corrct 22 L (35-46) mmHg POC ABG O2 Sat 100.0 H (90-95) % POC Potassium 3.2 L (3.3-5.0) mmol/L Potassium 3.0 L (3.5-5.1) mmol/L Chloride 118 H (98-107) mmol/L Carbon Dioxide 15 L (21-32) mmol/L BUN 50 H (6-23) mg/dl Creatinine 2.34 H D (0.6-1.2) mg/dl BUN/Creatinine Ratio 21.4 H (10-20) Glucose 178 H (70-99(Fasting)) mg/dl POC Glucose (other) (70-99) mg/dl Lactate (0.4-2.0) mmol/L Calcium 6.5 L (8.6-10.3) mg/dl Phosphorus 5.2 H (2.5-4.9) mg/dl Magnesium 1.6 L (1.7-2.4) mg/dl Total Bilirubin (0.2-1.0) mg/dl Total Protein 3.2 L D (6.0-8.3) gm/dl Albumin 1.8 L (3.4-5.0) gm/dl Globulin 1.4 L (2.5-4.0) gm/dl Crossmatch See Detail 04/27/24 04/27/24 04/28/24 Range/Units 21:49 23:28 00:12 WBC (4.8-10.8) K/ul RBC 2.80 L (4.20-5.40) M/uL Hgb 8.4 L D (12.0-16.0) g/dl POC Hgb (12.0-16.0) g/dl Hct 25.0 L (37.0-47.0) % POC Hct (37-47) % RDW Std Deviation 49.1 H (36.4-46.3) fL RDW Coeff of Leah 15.1 H (11.5-14.5) % Plt Count 96 L (130-400) K/uL Neut # (Auto) (1.40-6.50) K/uL Lymph # (Auto) (1.20-3.40) K/uL Pettis # (Auto) (0.11-0.59) K/uL POC pH (7.35-7.45) POC pCO2 (35-46) mmHg POC pO2 (80-95) mmHg POC HCO3 (19-24) michelle/L POC Total CO2 (24-31) mmol/L POC Base Excess (-9-1.8) michelle/L ABG pH (Temp Correct) (7.35-7.45) ABG pCO2 (Temp Corrct (35-46) mmHg POC ABG O2 Sat (90-95) % POC Potassium (3.3-5.0) mmol/L Potassium (3.5-5.1) mmol/L Chloride (98-107) mmol/L Carbon Dioxide (21-32) mmol/L BUN (6-23) mg/dl Creatinine (0.6-1.2) mg/dl BUN/Creatinine Ratio (10-20) Glucose (70-99(Fasting)) mg/dl POC Glucose (other) 199 H (70-99) mg/dl Lactate 3.1 H* 2.8 H* (0.4-2.0) mmol/L Calcium (8.6-10.3) mg/dl Phosphorus (2.5-4.9) mg/dl Magnesium (1.7-2.4) mg/dl Total Bilirubin (0.2-1.0) mg/dl Total Protein (6.0-8.3) gm/dl Albumin (3.4-5.0) gm/dl Globulin (2.5-4.0) gm/dl Crossmatch 04/28/24 04/28/24 04/28/24 Range/Units 03:42 04:10 07:48 WBC 12.69 H (4.8-10.8) K/ul RBC 2.81 L (4.20-5.40) M/uL Hgb 8.4 L 8.3 L (12.0-16.0) g/dl POC Hgb 8.5 L (12.0-16.0) g/dl Hct 24.9 L 24.3 L (37.0-47.0) % POC Hct 25 L (37-47) % RDW Std Deviation 50.3 H (36.4-46.3) fL RDW Coeff of Leah 15.6 H (11.5-14.5) % Plt Count 114 L (130-400) K/uL Neut # (Auto) 9.91 H (1.40-6.50) K/uL Lymph # (Auto) (1.20-3.40) K/uL Pettis # (Auto) 1.16 H (0.11-0.59) K/uL POC pH 7.24 L (7.35-7.45) POC pCO2 30 L (35-46) mmHg POC pO2 131 H (80-95) mmHg POC HCO3 13 L (19-24) michelle/L POC Total CO2 14 L (24-31) mmol/L POC Base Excess -15.0 L (-9-1.8) michelle/L ABG pH (Temp Correct) 7.245 L (7.35-7.45) ABG pCO2 (Temp Corrct 29 L (35-46) mmHg POC ABG O2 Sat 98.0 H (90-95) % POC Potassium (3.3-5.0) mmol/L Potassium (3.5-5.1) mmol/L Chloride 116 H (98-107) mmol/L Carbon Dioxide 13 L (21-32) mmol/L BUN 51 H (6-23) mg/dl Creatinine 2.43 H (0.6-1.2) mg/dl BUN/Creatinine Ratio 21.0 H (10-20) Glucose 200 H (70-99(Fasting)) mg/dl POC Glucose (other) (70-99) mg/dl Lactate (0.4-2.0) mmol/L Calcium 7.6 L (8.6-10.3) mg/dl Phosphorus (2.5-4.9) mg/dl Magnesium (1.7-2.4) mg/dl Total Bilirubin 1.6 H D (0.2-1.0) mg/dl Total Protein 3.9 L (6.0-8.3) gm/dl Albumin 2.3 L (3.4-5.0) gm/dl Globulin 1.6 L (2.5-4.0) gm/dl Crossmatch 04/28/24 07:48 04/28/24 03:42 PG Care Time/CCT Total # of Minutes Spent Total Time Spent with Patient: Total time spent is greater than 50% in coordination of care (as documented) at patient's floor/unit and/or counseling patient: Coding Level of Care Code 81437 SUB INP/OBS CARE 3/50MIN Diagnoses Ischemia, bowel K55.9 Diabetes mellitus type 2 in obese E11.69; E66.9 Hypomagnesemia E83.42 HTN (hypertension) I10 Hypertension type: unspecified Obesity E66.9 Hypokalemia E87.6 Cirrhosis K74.60 Acute kidney injury superimposed on stage 3b chronic kidney disease N17.9; N18.32 (4) HTN (hypertension) Hypertension type: unspecified Qualified Code(s): I10 - Essential (primary) hypertension
--- NOTE | 2024-04-28 13:50 | Pharmacy Report ---
Pharmacy Glycemic Short Note 2 - Date of Service April 28, 2024 - Glycemic Short BSG Results (Last 24 hours): 04/27/24 04/27/24 04/28/24 19:00 23:28 03:42 Glucose 178 H 200 H POC Glucose (other) 199 H OUTPATIENT ANTIDIABETIC REGIMEN: * Lantus 7 units SC QAM * Novolog 5 units SC BID with meals * HbA1c = 8.2% on 02/17/24 ASSESSMENT: * 78 y/o F admitted for ischemic bowel s/p resection on 04/27. Patient has history of Type 2 diabetes on low doses of basal and bolus insulins at home. * Also with history of CKD stage 3. * Post op yesterday patient needed pressure support. Currently intubated and on vasopressors. Pharmacy glycemic consult initiated due to higher blood sugars. * Novolog was started yesterday with stress of 1 parameters and goal range of 140-180 mg/dl. Blood sugars currently being checked q4h and reasonably stable around 200 mg/dl. PLAN FOR INPATIENT GLYCEMIC CONTROL: * Basal insulin * Hold for now * Bolus insulin * NovoLog per scale q4h while NPO * Goal Range: Low 140 mg/dL - High 140 mg/dL * Correction Factor: 20 mg/dL/unit * Nutritional / Prandial insulin per carb ratio of 1 unit per 15 grams CHO consumed
[2024-04-28 14:10] LABS: Hematocrit (blood only) 25.5 % (37.0-47.0); Hemoglobin 8.5 g/dl (12.0-16.0)
[2024-04-28] MEDS: FUROSEMIDE 40 MG/4 ML VIAL IV ONE (19:30)
--- NOTE | 2024-04-28 19:42 | XRay Report ---
SINGLE VIEW CHEST CLINICAL HISTORY: Respiratory failure. FINDINGS: An AP, portable, upright chest radiograph is compared to study dated 04/27/2024. The examina tion is degraded by portable technique and patient rotation. An endotracheal tube and a right interna l jugular central venous catheter are unchanged in position. Correlation is made with chest CT dated 11/22/2022. The heart is enlarged. The pulmonary vasculature is noncongested. Atelectasis is noted at both lung bases. No large pleural effusion or pneumothorax is seen. The skeletal structures are osteo penic. The bony thorax is grossly intact. Cholecystectomy clips are seen in the right upper quadrant. Intraperitoneal free air is seen below the right hemidiaphragm. IMPRESSION: 1. Intraperitoneal free air is seen in below the right hemidiaphragm. This may be related to pneumato sis intestinalis throughout the colon seen on yesterday's abdominal CT. Correlate clinically for evid ence of visceral perforation. 2. Cardiomegaly without radiographic evidence of congestive failure. 3. Stable lines and tubes. 4. No airspace consolidation or large pleural effusion is identified. Findings were reported to nurse practitioner Jayy at the time of interpretation. ACT 112: Negative or not required by law. Electronically signed by: Kenny Jung M.D. 04/28/2024 7:40 PM
--- NOTE | 2024-04-28 20:28 | Electrocardiogram Report ---
Test Reason : Blood Pressure : */* mmHG Vent. Rate : 60 BPM Atrial Rate : 60 BPM P-R Int : 144 ms QRS Dur : 150 ms QT Int : 468 ms P-R-T Axes : 58 -61 11 degrees QTcB Int : 468 ms Normal sinus rhythm Right bundle branch block Left anterior fascicular block Bifascicular block Abnormal ECG When compared with ECG of 15-Feb-2024 02:33, QRS duration has increased T wave inversion now evident in Anterior leads Confirmed by Raul Terrazas ([id number]) on 04/28/2024 8:28:09 PM Referred By: REFERRED SELF Confirmed By: Raul Terrazas
--- NOTE | 2024-04-29 01:02 | Procedure Note ---
Procedure Note Date of Service April 29, 2024 ARTERIAL LINE PROCEDURE NOTE: Procedure: Arterial Line Placement Proceduralist: Ilya MORALES ([facility]-) Attending: Dr. Goetz Indication: Monitoring on Pressors- failure of left radial arterial line Anesthesia: Fentanyl and Versed infusions Emergent consent was implied as patient is intubated on vasopressor agents and with arterial line in place already, she is with increasing vasopressor requirements and need for frequent blood draws. A time-out was completed verifying correct patient, procedure, site, positioning, and implant(s) or special equipment if applicable. Allens test was performed to ensure adequate perfusion. Patients RIGHT wrist was prepped and draped in the usual sterile fashion. Ultrasound guidance was used to engineering and scientific programmer the vessel and aid needle placement. Once adequate target was identified, a 20g Arrow arterial line was introduced into the RIGHT RADIAL artery x1 attempt. Brisk blood return was noted, the wire was advanced without resistance, and the catheter was threaded without resistance. The needle was removed with appropriate blood return and attached to pressure tubing, a good arterial waveform was observed. The patient tolerated the procedure well, no immediate complications noted. Blood Loss: Minimal Complications: None immediate Artery Identified: YES Complications: NONE Patient tolerated procedure: WELL Attempts x1 [facility] Procedure Codes (Charges) Tubes, Drains, and Vasc Access Procedure 1: Tubes, Drains, and Vasc Access: [id number] Arterial Cath/Cannulation Sampling/Monitoring/Transfusion Coding CPT Codes Tubes, Drains, and Vasc Access - Tubes, Drains, and Vasc Access: [id number] Arterial Cath/Cannulation Sampling/Monitoring/Transfusion ([id number]) Additional Codes Date of Service ([facility].SURGERY)
[2024-04-29 04:55] LABS: Basophils # (auto) 0.05 K/uL (0.00-0.20); Basophils % (auto) 0.2 %; Eosinophils # (auto) 0.65 K/uL (0.00-0.50); Eosinophils % (auto) 3.2 %; Hemoglobin 8.5 g/dl (12.0-16.0); Immature Granulocytes # (auto) 0.11 K/uL (0.01-0.20); Immature Granulocytes % (auto) 0.5 %; Lymphocytes # (auto) 1.77 K/uL (1.20-3.40); Lymphocytes % (auto) 8.8 %; Mean Corpuscular Hemoglobin 30.4 pg (25.0-34.0); Mean Corpuscular Volume 89.3 fL (80.0-100.0); Mean Platelet Volume 11.1 fL (9.4-12.4); Neutrophils # (auto) 15.45 K/uL (1.40-6.50); Neutrophils % (auto) 77.3 %; Nucleated RBC # (auto) 0.06 K/uL (0.00-0.12); Nucleated RBC % (auto) 0.3 %; Platelet Count 123 K/uL (130-400); RDW Coefficient of Variation 16.3 % (11.5-14.5); RDW Standard Deviation 52.3 fL (36.4-46.3); White Blood Count 20.03 K/ul (4.8-10.8)
[2024-04-29 05:04] LABS: Albumin Globulin Ratio 1.1 (0.9-2); Albumin Level 2.1 gm/dl (3.4-5.0); BUN Creatinine Ratio 18.4 (10-20); Bilirubin,Total 0.9 mg/dl (0.2-1.0); Calcium 7.2 mg/dl (8.6-10.3); Creatinine Clr Calc Pharmacy 18.4 ml/min; Magnesium 2.5 mg/dl (1.7-2.4); Phosphorus 4.6 mg/dl (2.5-4.9); Potassium 3.9 mmol/L (3.5-5.1); Total Protein 4.1 gm/dl (6.0-8.3)
[2024-04-29 05:09] LABS: iSTAT Art Bld Gas pCO2 Correct 31 mmHg (35-46); iSTAT Art Bld Gas pH Corrected 7.214 (7.35-7.45); iSTAT Arterial Blood Gas HCO3 13 meg/L (19-24); iSTAT Arterial Blood Gas pCO2 31 mmHg (35-46); iSTAT Arterial Blood Gas pH 7.21 (7.35-7.45); iSTAT Arterial Blood Gas pO2 102 mmHg (80-95); iSTAT Arterial Blood Gas pO2 C 100; iSTAT Carbon Dioxide 13 mmol/L (24-31); iSTAT FiO2 28 %; iSTAT Hematocrit 26 % (37-47); iSTAT Hemoglobin 8.8 g/dl (12.0-16.0); iSTAT Potassium 3.8 mmol/L (3.3-5.0); iSTAT Site Art Line; iSTAT Sodium 135 mmol/L (135-144)
[2024-04-29] MEDS: SODIUM BICARBONATE 8.4% 150 MEQ in WATER, STERILE 1,000 ML IV SCH (06:25)
--- NOTE | 2024-04-29 07:36 | Critical Care Progress Note ---
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 Critical care indication:Need for pressor support, mechanically ventilated post-operatively Plan: Neurologic pt is currently post-op intubated and on ventilator, POD #2 Cardiac Hypotension in the setting of acute bowel ischemia pt required pressor support throughout surgery on levophed and vasopressin, wean as tolerated HTN Aortic stenosis HFpEF with diastolic dysfunction last EF 50-55% on echo 11/2022 home eliquis, furosemide, spironolactone, propranolol all held in the setting of hypotension Respiratory hx ROSALES on mechanical ventilation postoperatively Gastrointestinal Diet: NPOpost-op bowel resection Bowel ischemia CT abd 04/27; extensive pneumatosis involving majority of colon and rectum, extraluminal gas, cirrhotic liver, trace ascites s/p bowel resection with ileostomy on 04/27 Renal/electrolytes CKD stage 3b baseline Cr appears to be 1.7-1.9 EMY Cr on admission 2.69, now 2.43 will replete electrolytes as needed ionized calcium level wnl received 2L IVF during operative period, now on plasmalyte 80/hr positive 10L fluids since hospital stay, will diurese today Genitourinary No acute concerns at this time Martino catheter draining normal-appearing urine at this time Strict I/O's Endocrine DMT2, insulin dependent last HA1c in January 2024; 8.2% Continue ISS per protocol Hypothyroidism will do IV thyroid hormone will do dose of hydrocortisone today as well Hematologic Chronic anemia MGUS baseline hgb appears to be 10-11 EBL noted to be ~500 mL from resection on 04/27 s/p 2 units blood 04/27 for hemoglobin drop 10.5 preop -> 5.5 postop fibrinogen level wnl stable at 8.5 Infectious disease Afebrile since admission WBC 10 -> 12.7 today on zosyn for empiric coverage given bowel ischemia and s/p bowel resection Integumentary Some bruises noted on skin, pt is on blood thinner at home Lines/access PIVs intact, arterial line, EJ line in place, IJ line in place martino Prophylaxis DVT ppx: SCDs, deferred chemical prophylaxis in the immediate post-op period due to risk of bleeding GI ppx: protonix IV Thank you the opportunity to participate in this patient's care. Please see attending documentation for further recommendations. Admission and Anticipated Discharge Date Admission Date: April 27, 2024 Supervising Physician Co-Signing Physician Notes Dr. Ayers was the resident-physician during care of patient. I separately evaluated patient for almanzar portions of the history and the exam. I was present during the critical portion of medical decision making, and I discussed the case with the resident. I generally agree with the findings and plan except for any additions/exceptions noted. Patient seen and examined at bedside. No acute distress, no adverse events overnight. She was on 1 of midazolam and 125 of fentanyl at the time of examination. She was RASS -2, breathing with the vent Has been afebrile Still acidotic metabolically Patient was on 0.19 of Levophed and 0.04 of vasopressin Constitutional: No acute distress HEENT: PERRLA Respiratory system: Good air entry bilaterally, no wheeze, no rhonchi, mild crackles bilateral lower lobes CVS: S1-S2 positive, no murmurs or gallops Abdomen: Soft, nontender, nondistended, positive bowel sounds x4, obese, CRIS drain in place, incision site and dionne clean Extremities: +2 pulses bilaterally radialis/ dorsalis pedis, no cyanosis, +1 pitting edema bilateral lower extremity Neuro: RASS -2, breathing with the vent Psych: Unable to assess G/U: Positive Martino --Prophylaxis VTE: IPC given the history of bleeding GI: Pantoprazole Lines: Right IJ, Martino Diet: N.p.o. Plan: In/out: Positive for liters, urine output 1071, +10 L since coming to the hospital AB.21// on 28% Random cortisol the patient is 18.41, I will start the patient on hydrocortisone Continue with bicarb drip given the metabolic acidosis. Repeat lactate is negative. I ordered UA to see if there are ketones in it. Will give a push of bicarb as well. Levothyroxine to be resumed IV today Unfortunately patient's creatinine is going up. This could be hepatorenal syndrome along with hypotension Will give 2 mg of Bumex, try to keep MAP greater than 65 Will likely resume spironolactone Patient's critical condition was discussed in depth with the family at bedside. All questions and queries were answered in depth I have personally spent 50 minutes of critical care time in the direct management of this patient. This is a life/limb threatening event. This includes time spent evaluating patient, direct bedside care, chart review, placing orders, interpretation of diagnostic studies, discussion with consultants, patient, and/or family members regarding treatment decisions, as well as other required patient management activities. This time is exclusive of all separately billable procedures, and teaching time and separate from and in addition to any other critical care service time. Review of Systems Review of Systems: Unobtainable due to endotracheal tube Physical Exam Physical Exam: General: Intubated, sedated but no acute distress apparent Resp: Intubated and on ventilator, lungs clear to auscultation today Cardio: Irregular rhythm, rate in the 60s GI: Ileostomy in place with green stool in bag, drain on L side abdomen draining bloody fluid Skin: Dry, pale appearing but warm Results & Data Results & Data Vital Signs (Past 12 Hours) Vital Signs Temp Pulse Resp BP BP Pulse Ox O2 Del Method 04/29/24 04:30 50 L 16 96 04/29/24 04:30 36.7 C 67 16 130/41 L 100 04/29/24 04:00 36.7 C 63 16 124/44 L 99 04/29/24 04:00 04/29/24 04:00 62 117/41 L 04/29/24 03:30 36.6 C 64 16 142/58 H 100 04/29/24 03:00 36.5 C 63 16 132/54 L 100 04/29/24 02:39 36.5 C 62 16 100 04/29/24 02:13 36.5 C 61 16 114/69 100 Mechanical Vent 04/29/24 01:15 36.4 C L 64 16 100 04/29/24 00:27 36.3 C L 61 14 123/54 L 100 04/29/24 00:21 36.3 C L 60 14 116/49 L 100 04/29/24 00:00 36.3 C L 59 L 14 100 04/29/24 00:00 Mechanical Vent 04/29/24 00:00 04/29/24 00:00 61 117/39 L 04/29/24 00:00 60 04/28/24 23:33 36.3 C L 61 17 100 04/28/24 23:00 58 L 16 100 04/28/24 22:04 150/44 H 04/28/24 22:00 36.1 C L 61 16 100 04/28/24 21:00 36.1 C L 59 L 16 100 04/28/24 20:00 36.2 C L 61 16 94 04/28/24 20:00 60 04/28/24 20:00 04/28/24 20:00 65 04/28/24 20:00 117/36 L FiO2 04/29/24 04:30 28 04/29/24 04:30 04/29/24 04:00 04/29/24 04:00 28 04/29/24 04:00 04/29/24 03:30 04/29/24 03:00 04/29/24 02:39 04/29/24 02:13 30 04/29/24 01:15 04/29/24 00:27 04/29/24 00:21 04/29/24 00:00 04/29/24 00:00 04/29/24 00:00 30 04/29/24 00:00 04/29/24 00:00 04/28/24 23:33 04/28/24 23:00 30 04/28/24 22:04 04/28/24 22:00 04/28/24 21:00 04/28/24 20:00 04/28/24 20:00 04/28/24 20:00 60 04/28/24 20:00 04/28/24 20:00 Resident Activity Tracking Resident Involvement: Resident Care Provided Care Provided: Adult Hospital Medicine (4) HTN (hypertension) Hypertension type: unspecified Qualified Code(s): I10 - Essential (primary) hypertension
--- NOTE | 2024-04-29 07:44 | XRay Report ---
SINGLE VIEW CHEST CLINICAL HISTORY: Respiratory failure. FINDINGS: 2 AP, portable, upright chest radiographs are compared to study dated 04/28/2024. The examin ation is degraded by portable technique and patient rotation. An endotracheal tube and a right communications intern al jugular central venous catheter are unchanged in position. Correlation is made with chest CT dated 11/22/2022. The heart is enlarged. The pulmonary vasculature is noncongested. There are increasing de pendent airspace opacities. Small pleural effusions are suspected. No pneumothorax is seen. The skele jhoana structures are osteopenic. The bony thorax is grossly intact. Cholecystectomy clips are seen in t he right upper quadrant. Intraperitoneal free air seen below the right hemidiaphragm on yesterday's e xamination is no longer apparent. IMPRESSION: 1. Cardiomegaly without radiographic evidence of congestive failure. 2. Stable lines and tubes. 3. There are increasing dependent airspace opacities which could represent progressive atelectasis ve rsus a developing pneumonia/aspiration pneumonitis. Clinical correlation will be required. 4. Suspect small pleural effusions. ACT 112: Negative or not required by law. Electronically signed by: Kenny Jung M.D. 04/29/2024 7:41 AM
--- NOTE | 2024-04-29 07:53 | Surgery Progress Note ---
Date of Service April 29, 2024 Assessment & Plan (1) Ischemia, bowel: Plan: 04/29/2024 #2 POD status post subtotal colectomy with end ileostomy Patient remains on vasopressors and intubation (Point white count 20.03 with significant left shift and rising Hemoglobin 8.5 but stable, creatinine 2.66 slightly increased Patient has on average 30 to 50 cc through the Juvenal drain position in the pelvis (patient had ascitic fluid preoperatively due to her cirrhosis) Discussed with the academic support assistant patient started to start enteral feed since the ileostomy started to have output in her abdomen benign Overall prognosis guarded Admission and Anticipated Discharge Date Admission Date: April 27, 2024 Subjective Patient remains intubated on vasopressors Physical Exam Physical Exam: Abdominal exam the abdomen without any distention midline incision free of any drainage, dionne intact subcutaneous Ohiopyle in place Ileostomy right lower quadrant with liquid dark output appreciated Results & Data Vital Signs (Past 12 Hours) Vital Signs Temp Pulse Resp BP BP Pulse Ox O2 Del Method 04/29/24 04:30 50 L 16 96 04/29/24 04:30 36.7 C 67 16 130/41 L 100 04/29/24 04:00 36.7 C 63 16 124/44 L 99 04/29/24 04:00 04/29/24 04:00 62 117/41 L 04/29/24 03:30 36.6 C 64 16 142/58 H 100 04/29/24 03:00 36.5 C 63 16 132/54 L 100 04/29/24 02:39 36.5 C 62 16 100 04/29/24 02:13 36.5 C 61 16 114/69 100 Mechanical Vent 04/29/24 01:15 36.4 C L 64 16 100 04/29/24 00:27 36.3 C L 61 14 123/54 L 100 04/29/24 00:21 36.3 C L 60 14 116/49 L 100 04/29/24 00:00 36.3 C L 59 L 14 100 04/29/24 00:00 Mechanical Vent 04/29/24 00:00 04/29/24 00:00 61 117/39 L 04/29/24 00:00 60 04/28/24 23:33 36.3 C L 61 17 100 04/28/24 23:00 58 L 16 100 04/28/24 22:04 150/44 H 04/28/24 22:00 36.1 C L 61 16 100 04/28/24 21:00 36.1 C L 59 L 16 100 04/28/24 20:00 36.2 C L 61 16 94 04/28/24 20:00 60 04/28/24 20:00 04/28/24 20:00 65 04/28/24 20:00 117/36 L FiO2 04/29/24 04:30 28 04/29/24 04:30 04/29/24 04:00 04/29/24 04:00 28 04/29/24 04:00 04/29/24 03:30 04/29/24 03:00 04/29/24 02:39 04/29/24 02:13 30 04/29/24 01:15 04/29/24 00:27 04/29/24 00:21 04/29/24 00:00 04/29/24 00:00 04/29/24 00:00 30 04/29/24 00:00 04/29/24 00:00 04/28/24 23:33 04/28/24 23:00 30 04/28/24 22:04 04/28/24 22:00 04/28/24 21:00 04/28/24 20:00 04/28/24 20:00 04/28/24 20:00 60 04/28/24 20:00 04/28/24 20:00
[2024-04-29] MEDS ORDERED: HYDROCORTISONE SOD 100 MG in SYRINGE 0 ML IV STA (08:28)
[2024-04-29] MEDS: HYDROCORTISONE SOD 100 MG in SYRINGE 0 ML IV STA (09:35)
[2024-04-29] MEDS: SODIUM BICARB 8.4% INJ 50 MEQ/50 ML SYR IV STA (10:25)
[2024-04-29] MEDS: LEVOTHYROXINE SODIUM 50 MCG in SYRINGE 0 ML IV SCH (11:39)
[2024-04-29] MEDS: BUMETANIDE 2 MG in SYRINGE 0 ML IV SCH (11:39)
--- NOTE | 2024-04-29 13:38 | Billing Data ---
Date of Service April 29, 2024 Coding Level of Care Code 14803 CRITICAL CARE 1ST 30-74M Time Spent (min) 50
--- NOTE | 2024-04-29 14:12 | Pharmacy Report ---
Pharmacy Glycemic Short Note 2 - Date of Service April 29, 2024 - Glycemic Short BSG Results (Last 24 hours): 04/28/24 04/28/24 04/28/24 08:03 12:48 16:22 Glucose POC Glucose (other) 198 H 201 H 218 H 04/28/24 04/29/24 04/29/24 20:38 00:21 04:13 Glucose POC Glucose (other) 209 H 234 H 220 H 04/29/24 04/29/24 04:25 09:52 Glucose 239 H POC Glucose (other) 238 H OUTPATIENT ANTIDIABETIC REGIMEN: * Lantus 7 units SC AM * Novolog 5 units SC BID with meals * HbA1c = 8.2% on 02/17/24 ASSESSMENT: 04/29: * Rosalind received 11 units of insulin yesterday, all bolus. BSGs were: 19 [phone] mg/dL. * Fasting BSG this AM was 238 mg/dL, above goal. Remains on Levophed and Vasopressin. Due to significant acidosis, patient was started on Bicarb drip mixed in Sterile Water. Remains NPO. Started on Hydrocortisone IV as well (100 mg x 1 then 50 mg q6h). * Due to pressor requirements as well as addition of steroids, will transition patient from subcutaneous insulin to an IV insulin drip. Per charge auditor, this drip will be based on hyperglycemia protocol; however, if urine ketones return positive, then will transition drip to DKA protocol. No bolus required. 04/28: * 78 y/o F admitted for ischemic bowel s/p resection on 04/27. Patient has history of Type 2 diabetes on low doses of basal and bolus insulins at home. * Also with history of CKD stage 3. * Post op yesterday patient needed pressure support. Currently intubated and on vasopressors. Pharmacy glycemic consult initiated due to higher blood sugars. * Novolog was started yesterday with stress of 1 parameters and goal range of 140-180 mg/dl. Blood sugars currently being checked q4h and reasonably stable around 200 mg/dl. PLAN FOR INPATIENT GLYCEMIC CONTROL: * IV insulin drip for hyperglycemia * Stress level: HIGH * Goal range: 110 - 180 mg/dL * Initial rate: 4.2 units/hr * * * * * * *
[2024-04-29] MEDS: INSULIN REGULAR 250 UNITS in SODIUM CHLORIDE 0.9% 247.5 ML IV SCH (14:23)
[2024-04-29 14:33] LABS: Appearance Urine Cloudy (Clear); Bilirubin Urine Negative (Negative); Blood Urine Negative (Negative); Color Urine Yellow; Glucose Urine UA Negative (Negative); Ketones Urine Negative (Negative); Leukocyte Esterase Urine 1+ (Negative); Nitrite Urine Negative (Negative); Protein Urine Trace (Negative); Specific Gravity Urine 1.022 (1.000-1.030); Urobilinogen Urine Negative (Negative)
[2024-04-29] MEDS: HYDROCORTISONE SOD 50 MG in SYRINGE 0 ML IV SCH (16:44)
[2024-04-29] MEDS: INSULIN ASPART PER UNIT CHARGE SC SCH (16:44)
[2024-04-29] MEDS: PIPERACILLIN/TAZOBACTAM 4.5 GM/100 ML BAG IV SCH (17:59)
--- NOTE | 2024-04-29 18:24 | Hospitalist Progress Note ---
Date of Service April 29, 2024 Assessment & Plan (1) Ischemia, bowel: Plan: Presented with abdominal pain and diffuse colonic pneumatosis seen on CT scan, and sepsis, POA. Appreciate general surgery consultation and recommendations. She underwent total colectomy with ileostomy formation on April 27. She remains in the ICU postoperatively on ventilator support and pressure support. With persistent metabolic acidosis from lactic acidosis and acute kidney injury likely secondary to ATN from hypotension Started on IV hydrocortisone for relative adrenal insufficiency with random cortisol 18 Is having some liquid brown stool coming out of bag but will not start enteral feeds due to septic shock Continue Zosyn, sodium bicarbonate drip Appreciate ceramic chemist management Follow CBC, CMP (2) Acute kidney injury superimposed on stage 3b chronic kidney disease: Plan: Creatinine up further to 2.66, somewhat oliguric, with metabolic acidosis. Baseline creatinine 1.8-2.2 UA with trace protein but no definite signs of infection Continue blood pressure support with vasopressors Follow urine output, BMP On sodium bicarbonate drip (3) Anemia: Plan: With a history of anemia of chronic kidney disease as well as MGUS, EBL 500 mL from surgery, on Eliquis and given FFP preoperatively as well as 2 unit PRBC Hemoglobin down to margarita of 5.5 after surgery from baseline of 10.5. Now back up to 8.5 after 2 unit PRBCs Monitor for further bleeding, follow CBC (4) Diabetes mellitus type 2 in obese: Plan: Currently NPO. On insulin drip (5) Cirrhosis: Plan: History of Rothman cirrhosis and portal hypertension. Supportive care. Serial labs Holding home propranolol, rifaximin, spironolactone, lactulose, furosemide With ascites fluid coming from CRIS drain (6) Chronic diastolic heart failure: Plan: Holding home diuretics but was given IV Bumex on 04/29 (7) HTN (hypertension): Plan: Oral antihypertensive medications are on hold. Currently requiring pressor support with Levophed and vasopressin Also with moderate aortic stenosis (8) PAF (paroxysmal atrial fibrillation): Plan: Remains in normal sinus rhythm here Eliquis on hold Propranolol on hold (9) Hypothyroidism: Plan: TSH normal in 07/2023 Home levothyroxine is on hold- starting IV levothyroxine until enteral feeds are started (10) Obesity: Plan: Morbidly obese. BMI 48.8 ROSALES-on ventilator Plan [id number], IJ central venous catheter, peripheral IV, Lynn catheter, CRIS drain DVT prophylaxis-SCDs GI prophylaxis-IV Protonix Disposition-continued stay in ICU Admission and Anticipated Discharge Date Admission Date: April 27, 2024 Subjective Pt remains on vent,sedated. On pressors. Urine output on the low end of normal Physical Exam Constitutional: well developed and + mechanically ventilated; no acute distress Respiratory: normal respiratory effort, lungs clear to auscultation Cardiovascular: Rate/Rhythm: regular rate and regular rhythm Heart Sounds: no murmur Extremities: + edema (Trace pitting edema) Gastrointestinal (Abdomen): Inspection/Auscultation: + hypoactive bowel sounds; + abdomen abnormal to inspection (Colostomy bag in place with small amount of brown liquid stool) Percussion/Palpation: abdomen soft Psychiatric: Orientation: + not alert Genitourinary: + abnormal external appearance (Lynn ca theter in place) Results & Data Results & Data Vital Signs (Past 12 Hours) Vital Signs Temp Pulse Resp BP Pulse Ox O2 Del Method FiO2 04/29/24 16:00 28 04/29/24 16:00 69 04/29/24 14:56 106/47 L 04/29/24 14:51 63 18 100 28 04/29/24 14:44 132/47 L 04/29/24 14:36 36.8 C 68 18 100 04/29/24 14:00 36.8 C 68 18 100 04/29/24 13:00 36.7 C 73 18 100 04/29/24 12:15 36.7 C 78 18 99 04/29/24 11:56 28 04/29/24 11:15 36.6 C 66 18 100 04/29/24 10:59 66 19 98 28 04/29/24 10:00 36.6 C 68 16 98 04/29/24 09:15 36.7 C 71 18 96 04/29/24 09:00 143/44 H 04/29/24 08:45 128/48 L 04/29/24 08:45 36.7 C 63 18 97 04/29/24 08:41 28 04/29/24 08:40 18 28 04/29/24 08:18 36.7 C 66 16 100 04/29/24 08:09 Mechanical Vent 28 04/29/24 08:00 36.7 C 63 16 100 04/29/24 07:58 28 04/29/24 07:51 66 123/41 L 04/29/24 07:51 67 04/29/24 07:48 36.7 C 69 16 99 04/29/24 07:44 65 17 100 28 04/29/24 07:30 36.7 C 67 15 100 04/29/24 07:15 36.7 C 69 15 100 04/29/24 07:00 131/42 L 04/29/24 06:51 36.7 C 68 14 98 04/29/24 06:30 36.7 C 64 17 99 04/29/24 06:30 127/47 L 04/29/24 06:30 127/47 L 04/29/24 06:30 127/47 L Laboratory Results CBC, CMP, magnesium, ABG reviewed PG Care Time/CCT Total # of Minutes Spent Total Time Spent with Patient: Total time spent is greater than 50% in coordination of care (as documented) at patient's floor/unit and/or counseling patient: Coding Level of Care Code 44958 SUB INP/OBS CARE 3/50MIN Diagnoses Ischemia, bowel K55.9 Acute kidney injury superimposed on stage 3b chronic kidney disease N17.9; N18. 32 Anemia D64.9 Anemia type: unspecified type Diabetes mellitus type 2 in obese E11.69; E66.9 Cirrhosis K74.60 Chronic diastolic heart failure I50.32 HTN (hypertension) I10 Hypertension type: unspecified PAF (paroxysmal atrial fibrillation) I48.0 Hypothyroidism E03.9 Obesity E66.9 (3) Anemia Anemia type: unspecified type Qualified Code(s): D64.9 - Anemia, unspecified (7) HTN (hypertension) Hypertension type: unspecified Qualified Code(s): I10 - Essential (primary) hypertension
[2024-04-29] MEDS ORDERED: PIPERACILLIN/TAZOBACTAM 4.5 GM/100 ML BAG IV SCH (19:00)
[2024-04-29 19:29] LABS: BUN Creatinine Ratio 16.6 (10-20); Calcium 6.9 mg/dl (8.6-10.3); Creatinine Clr Calc Pharmacy 17.7 ml/min; Magnesium 2.2 mg/dl (1.7-2.4); Potassium 3.4 mmol/L (3.5-5.1)
[2024-04-30] MEDS: fentaNYL BOLUS from BAG IV PRN (04:33)
[2024-04-30 05:02] LABS: Potassium 3.6 mmol/L (3.5-5.1)
[2024-04-30 05:03] LABS: Albumin Globulin Ratio 0.9 (0.9-2); Albumin Level 1.7 gm/dl (3.4-5.0); BUN Creatinine Ratio 17.5 (10-20); Bilirubin,Total 0.7 mg/dl (0.2-1.0); Calcium 6.8 mg/dl (8.6-10.3); Creatinine Clr Calc Pharmacy 17.6 ml/min; Globulin 1.8 gm/dl (2.5-4.0); Phosphorus 4.2 mg/dl (2.5-4.9); Total Protein 3.5 gm/dl (6.0-8.3)
[2024-04-30 05:13] LABS: Hematocrit (blood only) 20.2 % (37.0-47.0); Hemoglobin 7.1 g/dl (12.0-16.0); Mean Corpuscular Hemoglobin 29.7 pg (25.0-34.0); Mean Corpuscular Hgb Conc 35.1 g/dL (32.0-36.0); Mean Corpuscular Volume 84.5 fL (80.0-100.0); Mean Platelet Volume 11.3 fL (9.4-12.4); Nucleated RBC # (auto) 0.07 K/uL (0.00-0.12); Nucleated RBC % (auto) 0.4 %; Platelet Count 91 K/uL (130-400); RDW Coefficient of Variation 15.8 % (11.5-14.5); RDW Standard Deviation 47.1 fL (36.4-46.3); Red Blood Count 2.39 M/uL (4.20-5.40); White Blood Count 16.24 K/ul (4.8-10.8)
[2024-04-30 05:15] LABS: Basophils # (auto) 0.02 K/uL (0.00-0.20); Basophils % (auto) 0.1 %; Echinocytes 1+; Immature Granulocytes # (auto) 0.18 K/uL (0.01-0.20); Immature Granulocytes % (auto) 1.1 %; Lymphocytes # (auto) 1.35 K/uL (1.20-3.40); Lymphocytes % (auto) 8.3 %; Monocytes # (auto) 0.83 K/uL (0.11-0.59); Monocytes % (auto) 5.1 %; Neutrophils # (auto) 13.86 K/uL (1.40-6.50); Neutrophils % (auto) 85.4 %; Platelet Estimate Decreased (Normal); Polychromasia 1+
[2024-04-30 05:20] LABS: iSTAT Art Bld Gas pCO2 Correct 31 mmHg (35-46); iSTAT Art Bld Gas pH Corrected 7.452 (7.35-7.45); iSTAT Arterial Blood Gas HCO3 21 meg/L (19-24); iSTAT Arterial Blood Gas pCO2 32 mmHg (35-46); iSTAT Arterial Blood Gas pH 7.44 (7.35-7.45); iSTAT Arterial Blood Gas pO2 97 mmHg (80-95); iSTAT Arterial Blood Gas pO2 C 93; iSTAT Carbon Dioxide 22 mmol/L (24-31); iSTAT FiO2 28 %; iSTAT Hematocrit 20 % (37-47); iSTAT Hemoglobin 6.8 g/dl (12.0-16.0); iSTAT Potassium 3.5 mmol/L (3.3-5.0); iSTAT Site Art Line; iSTAT Sodium 132 mmol/L (135-144)
--- NOTE | 2024-04-30 06:45 | Surgery Progress Note ---
Date of Service April 30, 2024 Assessment & Plan (1) Ischemia, bowel: Plan Continue with supportive care May start enteral feeding Prognosis overall poor Admission and Anticipated Discharge Date Admission Date: April 27, 2024 Subjective Patient still on mechanical ventilation Physical Exam Physical Exam: Abdomen not distended Incision intact Significant persistent Juvenal drain serous slightly sanguinous consistent with ascites The ileostomy with dark green liquid output of 120 cc this last evening Results & Data Vital Signs (Past 12 Hours) Vital Signs Temp Pulse Resp BP Pulse Ox O2 Del Method FiO2 04/30/24 06:00 36.4 C L 66 21 136/43 L 100 Mechanical Vent 28 04/30/24 05:00 36.3 C L 60 19 121/47 L 99 04/30/24 04:57 61 19 100 28 04/30/24 04:00 36.4 C L 61 19 146/51 H 100 04/30/24 04:00 28 04/30/24 04:00 62 117/41 L 04/30/24 03:09 36.5 C 59 L 18 120/45 L 100 04/30/24 02:00 36.5 C 61 18 140/50 L 04/30/24 00:51 36.6 C 62 18 121/47 L 100 04/30/24 00:00 36.6 C 62 18 115/45 L 04/30/24 00:00 28 04/30/24 00:00 62 116/37 L 04/30/24 00:00 62 04/29/24 23:19 111/43 L 04/29/24 23:03 36.6 C 62 18 129/50 L 100 04/29/24 22:55 58 L 18 100 28 04/29/24 22:00 36.7 C 64 18 133/49 L 100 04/29/24 21:03 36.7 C 66 19 138/52 L 100 04/29/24 20:00 36.6 C 65 18 138/50 L 99 04/29/24 20:00 Mechanical Vent 28 04/29/24 20:00 28 04/29/24 20:00 66 118/40 L 04/29/24 19:40 90 18 99 28 04/29/24 19:09 36.6 C 67 18 116/45 L 98 Laboratory Results WBCs 16.24 slightly trending down with slight improvement in the left shift Creatinine rising now at 2.97 Hemoglobin 7.5 down from 8.5 yesterday Pathfinding pending
--- NOTE | 2024-04-30 07:39 | XRay Report ---
XR chest 1V portable CLINICAL HISTORY: eval tubes/lines/lung neely while intubated TECHNIQUE: Single frontal radiograph of the chest was obtained. Comparison: Comparison is made to chest radiograph 04/29/2024 FINDINGS: Lines and tubes are stable. Calcified aortic knob is seen. Faint bibasilar airspace opacities are see n. No evidence of pleural effusion or pneumothorax. IMPRESSION: Faint bibasilar airspace opacities which may represent atelectasis, pneumonia, and/or aspiration. ACT 112: Negative or not required by law. Electronically signed by: Cory Wolff M.D. 04/30/2024 7:37 AM
[2024-04-30 08:02] LABS: Anisocytosis Present
--- NOTE | 2024-04-30 08:06 | Critical Care Progress Note ---
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 Critical care indication:Need for pressor support, mechanically ventilated post-operatively Plan: Neurologic pt is currently post-op intubated and on ventilator, POD #2 Cardiac Hypotension Multifactorial Cortisol a.m. was on the negative side, hydrocortisone started 04/29/2024 in the setting of acute bowel ischemia Continue with vasopressor support to keep systolic blood pressure greater than 105, patient's diastolic pressure is on the lower side HTN Aortic stenosis HFpEF with diastolic dysfunction last EF 50-55% on echo 11/2022 Home medications eliquis, furosemide, spironolactone, propranolol all held in the setting of hypotension Respiratory hx ROSALES Gastrointestinal Bowel ischemia CT abd 04/27; extensive pneumatosis involving majority of colon and rectum, extraluminal gas, cirrhotic liver, trace ascites s/p bowel resection with ileostomy on 04/27 Renal/electrolytes CKD stage 3b baseline Cr appears to be 1.7-1.9 EMY on CKD Monitor BUN/creatinine Avoid nephrotoxic medication Endocrine DMT2, insulin dependent last HA1c in January 2024; 8.2% Continue ISS per protocol Hypothyroidism Continue with levothyroxine IV Hematologic Chronic anemia MGUS baseline hgb appears to be 10-11 EBL noted to be ~500 mL from resection on 04/27 s/p 2 units blood 04/27 for hemoglobin drop 10.5 preop -> 5.5 postop fibrinogen level wnl Infectious disease Afebrile since admission WBC 10 -> 12.7 today on zosyn for empiric coverage given bowel ischemia and s/p bowel resection, will complete 7 days of antibiotics Integumentary Some bruises noted on skin, pt is on blood thinner at home --Prophylaxis VTE: IPC given the history of bleeding GI: Pantoprazole Lines: Right IJ, Lynn Diet: Start trophic feeds today Plan: In/out: +3.2 L, urine output 1390 Bicarb drip has been discontinued H&H is trending down, history is also positive for liters which could be one of the reason Repeat H&H later today Potassium is being replaced. Will give Bumex 2 mg twice daily. Will increase it to 3 times daily, goal is to have at least net 1.5-2 L Patient's critical condition was discussed in depth with the family at bedside. All questions and queries were answered in depth I have personally spent 42 minutes of critical care time in the direct management of this patient. This is a life/limb threatening event. This includes time spent evaluating patient, direct bedside care, chart review, placing orders, interpretation of diagnostic studies, discussion with consultants, patient, and/or family members regarding treatment decisions, as well as other required patient management activities. This time is exclusive of all separately billable procedures, and teaching time and separate from and in addition to any other critical care service time. Admission and Anticipated Discharge Date Admission Date: April 27, 2024 Subjective Patient seen and examined at bedside. No acute distress, no adverse events overnight Patient was 100 of fentanyl at the time of examination which was decreased to 50 RASS -2 Grimacing to sternal rub, breathing just a little bit over the vent Has been afebrile On Levophed 0.02 and vasopressin 0.04 at the time of examination Review of Systems 2 Review of Systems: Unobtainable due to cognitive status and Unobtainable due to endotracheal tube Physical Exam 2 Physical Exam: Constitutional: No acute distress HEENT: PERRLA Respiratory system: Good air entry bilaterally, no wheeze, no rhonchi, mild crackles bilateral lower lobes CVS: S1-S2 positive, positive 3 out of 6 systolic murmur appreciated best at aorta Abdomen: Soft, nontender, nondistended, positive bowel sounds x4, obese, CRIS drain in place, incision site and dionne clean Extremities: +2 pulses bilaterally radialis/ dorsalis pedis, no cyanosis, +1 pitting edema bilateral lower extremity Neuro: RASS -2, breathing with the vent Psych: Unable to assess G/U: Positive Lynn Skin: no rashes, warm and dry Lymphatic: no cervical or axillary lymphadenopathy Results & Data Results & Data Vital Signs (Past 12 Hours) Vital Signs Temp Pulse Resp BP Pulse Ox O2 Del Method FiO2 04/30/24 07:02 36.1 C L 61 20 98 04/30/24 07:01 130/49 L 04/30/24 06:00 36.4 C L 66 21 136/43 L 100 Mechanical Vent 28 04/30/24 05:00 36.3 C L 60 19 121/47 L 99 04/30/24 04:57 61 19 100 28 04/30/24 04:00 36.4 C L 61 19 146/51 H 100 04/30/24 04:00 28 04/30/24 04:00 62 117/41 L 04/30/24 03:09 36.5 C 59 L 18 120/45 L 100 04/30/24 02:00 36.5 C 61 18 140/50 L 04/30/24 00:51 36.6 C 62 18 121/47 L 100 04/30/24 00:00 36.6 C 62 18 115/45 L 04/30/24 00:00 28 04/30/24 00:00 62 116/37 L 04/30/24 00:00 62 04/29/24 23:19 111/43 L 04/29/24 23:03 36.6 C 62 18 129/50 L 100 04/29/24 22:55 58 L 18 100 28 04/29/24 22:00 36.7 C 64 18 133/49 L 100 04/29/24 21:03 36.7 C 66 19 138/52 L 100 Laboratory Results 04/30/24 05:59 04/30/24 04:21 Coding Level of Care Code 17925 CRITICAL CARE 1ST 30-74M Diagnoses Ischemia, bowel K55.9 Diabetes mellitus type 2 in obese E11.69; E66.9 Stage 3b chronic kidney disease N18.32 Chronic diastolic heart failure I50.32 Hypothyroidism E03.9 Shock circulatory R57.9 Acute kidney injury superimposed on stage 3b chronic kidney disease N17.9; N18.32 Cirrhosis K74.60
[2024-04-30] MEDS: POTASSIUM CHLORIDE / WTR 20 MEQ/100 ML PLCT IV SCH (08:50)
[2024-04-30] MEDS: BUMETANIDE 2 MG in SYRINGE 0 ML IV SCH (08:53)
[2024-04-30] MEDS: CALCIUM GLUCONATE 1,000 MG/60 ML BAG IV STA (11:12)
--- NOTE | 2024-04-30 13:46 | XRay Report ---
KUB CLINICAL HISTORY: Enteric tube placement. FINDINGS: 2 AP, portable, upright views of the lower chest and upper abdomen are correlated with abdo schuyler CT dated 04/27/2024. An enteric tube has been placed. The tip projects below the diaphragm over the mid to distal stomach. There is a paucity of bowel gas, and the gas pattern is nonspecific. No in traperitoneal free air is seen below the diaphragm. Cholecystectomy clips are noted in the right uppe r quadrant. The bony structures appear intact. Fusion hardware is seen in the lumbar spine. Airspace consolidation is noted at the lung bases. IMPRESSION: An enteric tube has been placed as above. Electronically signed by: Kenny Jung M.D. 04/30/2024 1:45 PM
[2024-04-30] MEDS: TUBE FEEDING WATER FLUSH OG SCH (13:53)
[2024-04-30] MEDS: PEPTAMEN 1.5 CAL 1,000 ML BAG OG SCH (13:53)
--- NOTE | 2024-04-30 17:27 | Hospitalist Progress Note ---
Date of Service April 30, 2024 Assessment & Plan (1) Ischemia, bowel: Plan: Presented with abdominal pain and diffuse colonic pneumatosis seen on CT scan, and sepsis, POA. Appreciate general surgery consultation and recommendations. She underwent total colectomy with ileostomy formation on April 27. She remains in the ICU postoperatively on ventilator support and pressor support although now weaned off levophed, remains on vasopressin. With improving metabolic acidosis from lactic acidosis and worsening acute kidney injury likely secondary to ATN from hypotension Started on IV hydrocortisone for relative adrenal insufficiency with random cortisol 18 Is having some liquid brown stool coming out of bag -started trophic tube feeds 04/30 Continue Zosyn x 7 day course Appreciate concessions manager and Surgery management Follow CBC, CMP, mag, phos (2) Acute kidney injury superimposed on stage 3b chronic kidney disease: Plan: Creatinine up further to 2.9, remains oliguric, with improving metabolic acidosis. Baseline creatinine 1.8-2.2 Hyponatremia improving with diuresis UA with trace protein but no definite signs of infection Continue blood pressure support with vasopressors Follow urine output, BMP giving bumex bid for hypervolemia (3) Anemia: Plan: With a history of anemia of chronic kidney disease as well as MGUS, EBL 500 mL from surgery, on Eliquis and given FFP preoperatively as well as 2 unit PRBC Hemoglobin down to margarita of 5.5 after surgery from baseline of 10.5, then back up to 8.5 after 2 unit PRBCs, now back down to 7.1 Monitor for further bleeding, follow CBC (4) Diabetes mellitus type 2 in obese: Plan: Currently NPO. On insulin drip (5) Cirrhosis: Plan: History of Rothman cirrhosis and portal hypertension. Supportive care. Serial labs Holding home propranolol, rifaximin, spironolactone, lactulose, furosemide With ascites fluid coming from CRIS drain (6) Chronic diastolic heart failure: Plan: Holding home diuretics but continuing on IV Bumex -increased to bid (7) HTN (hypertension): Plan: Oral antihypertensive medications are on hold. Currently requiring pressor support but weaned off Levophed and continues on vasopressin Also with moderate aortic stenosis (8) PAF (paroxysmal atrial fibrillation): Plan: Remains in normal sinus rhythm here Eliquis on hold Propranolol on hold (9) Hypothyroidism: Plan: TSH normal in 07/2023 continue IV levothyroxine until enteral feeds are started (10) Obesity: Plan: Morbidly obese. BMI 48.8 ROSALES-on ventilator Plan [id number], IJ central venous catheter, peripheral IV, Lynn catheter, CRIS drain DVT prophylaxis-SCDs GI prophylaxis-IV Protonix Disposition-continued stay in ICU Admission and Anticipated Discharge Date Admission Date: April 27, 2024 Subjective Weaned off Levophed this morning, remains sedated but sedation has been lessened. Still low urine output despite IV Bumex . Started trophic tube feeds Physical Exam Constitutional: well developed and + mechanically ventilated; no acute distress Cardiovascular: Extremities: + edema (Trace pitting edema) Gastrointestinal (Abdomen): Percussion/Palpation: abdomen soft Psychiatric: Orientation: + not alert Genitourinary: + abnormal external appearance (Lynn ca theter in place) Results & Data Results & Data Vital Signs (Past 12 Hours) Vital Signs Temp Pulse Resp BP Pulse Ox O2 Del Method FiO2 04/30/24 17:00 113/48 L 04/30/24 17:00 35.6 C L 73 18 98 04/30/24 16:13 122/46 L 04/30/24 16:00 113/57 L 04/30/24 16:00 35.6 C L 76 18 100 04/30/24 16:00 28 04/30/24 16:00 82 04/30/24 15:58 77 18 99 28 04/30/24 15:00 35.6 C L 77 18 99 04/30/24 14:00 121/45 L 04/30/24 14:00 35.7 C L 76 20 99 04/30/24 13:06 35.7 C L 70 17 97 04/30/24 13:00 94/41 L 04/30/24 13:00 94/41 L 04/30/24 12:57 35.7 C L 74 15 96 04/30/24 12:00 28 04/30/24 12:00 72 93/32 L 04/30/24 12:00 66 19 100 04/30/24 12:00 132/49 L 04/30/24 12:00 36.5 C 04/30/24 11:00 96/37 L 04/30/24 11:00 69 18 100 04/30/24 10:46 69 14 100 28 04/30/24 10:03 70 18 100 04/30/24 10:00 86/42 L 04/30/24 09:57 35.9 C L 72 19 100 04/30/24 09:09 36.1 C L 78 17 94 04/30/24 09:00 89/44 L 04/30/24 08:47 104/43 L 04/30/24 08:32 36.1 C L 62 14 100 04/30/24 08:11 36.1 C L 63 14 99 04/30/24 08:00 28 04/30/24 08:00 60 04/30/24 08:00 60 04/30/24 07:48 66 18 100 28 04/30/24 07:30 Mechanical Vent 28 04/30/24 07:02 36.1 C L 61 20 98 04/30/24 07:01 130/49 L 04/30/24 06:00 36.4 C L 66 21 136/43 L 100 Mechanical Vent 28 Laboratory Results CBC, CMP, magnesium, phosphorus reviewed ABG reviewed PG Care Time/CCT Total # of Minutes Spent Total Time Spent with Patient: Total time spent is greater than 50% in coordination of care (as documented) at patient's floor/unit and/or counseling patient: Coding Level of Care Code 94031 SUB INP/OBS CARE 2/35MIN Diagnoses Ischemia, bowel K55.9 Acute kidney injury superimposed on stage 3b chronic kidney disease N17.9; N18.32 Anemia D64.9 Anemia type: unspecified type Diabetes mellitus type 2 in obese E11.69; E66.9 Cirrhosis K74.60 Chronic diastolic heart failure I50.32 HTN (hypertension) I10 Hypertension type: unspecified PAF (paroxysmal atrial fibrillation) I48.0 Hypothyroidism E03.9 Obesity E66.9 (3) Anemia Anemia type: unspecified type Qualified Code(s): D64.9 - Anemia, unspecified (7) HTN (hypertension) Hypertension type: unspecified Qualified Code(s): I10 - Essential (primary) hypertension
[2024-04-30] MEDS: NovoLIN-R BOLUS FROM BAG IV ONE (20:58)
[2024-05-01] MEDS: BUMETANIDE 2 MG in SYRINGE 0 ML IV ONE (00:24)
[2024-05-01 04:50] LABS: Basophils # (auto) 0.01 K/uL (0.00-0.20); Basophils % (auto) 0.1 %; Hematocrit (blood only) 21.7 % (37.0-47.0); Hemoglobin 7.4 g/dl (12.0-16.0); Immature Granulocytes # (auto) 0.17 K/uL (0.01-0.20); Immature Granulocytes % (auto) 1.1 %; Lymphocytes # (auto) 0.91 K/uL (1.20-3.40); Lymphocytes % (auto) 5.9 %; Mean Corpuscular Hemoglobin 29.8 pg (25.0-34.0); Mean Corpuscular Hgb Conc 34.1 g/dL (32.0-36.0); Mean Corpuscular Volume 87.5 fL (80.0-100.0); Mean Platelet Volume 11.5 fL (9.4-12.4); Monocytes # (auto) 0.59 K/uL (0.11-0.59); Monocytes % (auto) 3.9 %; Neutrophils # (auto) 13.63 K/uL (1.40-6.50); Nucleated RBC # (auto) 0.09 K/uL (0.00-0.12); Nucleated RBC % (auto) 0.6 %; Platelet Count 105 K/uL (130-400); RDW Standard Deviation 48.5 fL (36.4-46.3); Red Blood Count 2.48 M/uL (4.20-5.40); White Blood Count 15.31 K/ul (4.8-10.8)
[2024-05-01 04:57] LABS: BUN Creatinine Ratio 18.9 (10-20); Calcium 7.2 mg/dl (8.6-10.3); Creatinine Clr Calc Pharmacy 16.3 ml/min; Magnesium 2.1 mg/dl (1.7-2.4); Phosphorus 5.3 mg/dl (2.5-4.9); Potassium 4.2 mmol/L (3.5-5.1)
[2024-05-01 05:18] LABS: RBC Morphology Unremarkable
[2024-05-01 07:27] LABS: iSTAT Art Bld Gas pCO2 Correct 32 mmHg (35-46); iSTAT Art Bld Gas pH Corrected 7.395 (7.35-7.45); iSTAT Arterial Blood Gas HCO3 20 meg/L (19-24); iSTAT Arterial Blood Gas pCO2 33 mmHg (35-46); iSTAT Arterial Blood Gas pH 7.39 (7.35-7.45); iSTAT Arterial Blood Gas pO2 109 mmHg (80-95); iSTAT Arterial Blood Gas pO2 C 105; iSTAT Carbon Dioxide 21 mmol/L (24-31); iSTAT Hematocrit 23 % (37-47); iSTAT Hemoglobin 7.8 g/dl (12.0-16.0); iSTAT Site Art Line; iSTAT Sodium 131 mmol/L (135-144)
--- NOTE | 2024-05-01 08:31 | Surgery Progress Note ---
Date of Service May 01, 2024 Assessment & Plan (1) Ischemia, bowel: Plan: Overall continues to deteriorate Prognosis poor Admission and Anticipated Discharge Date Admission Date: April 27, 2024 Subjective Patient remains intubated sedated Physical Exam Physical Exam: Respirator dependent On pressors Abdomen nondistended midline incision intact Leroy still present in the subcu no cellulitis or redness noted Slight drainage from the entry site of the drain left lower quadrant drain was removed the drainage is serous slightly sanguinous Ileostomy dark bilious minimal amounts 50 cc Urine output 8 to 10 cc/h No peripheral edema Results & Data Vital Signs (Past 12 Hours) Vital Signs Temp Pulse Resp BP Pulse Ox FiO2 05/01/24 07:30 63 16 95 28 05/01/24 06:00 36.4 C L 66 18 104/49 L 100 05/01/24 05:00 36.4 C L 69 16 110/47 L 100 05/01/24 04:00 108/50 L 05/01/24 04:00 36.4 C L 65 16 108/50 L 99 05/01/24 04:00 28 05/01/24 03:00 36.4 C L 72 18 109/45 L 100 05/01/24 02:40 71 17 99 28 05/01/24 02:00 36.2 C L 102/42 L 05/01/24 01:06 36.1 C L 66 16 99 05/01/24 00:00 76 16 96/44 L 98 05/01/24 00:00 28 05/01/24 00:00 63 105/54 L 05/01/24 00:00 73 04/30/24 23:09 36.0 C L 76 16 96 04/30/24 23:09 77 18 99 28 04/30/24 22:09 35.8 C L 80 19 99 04/30/24 22:00 35.8 C L 79 18 103/46 L 99 04/30/24 20:54 35.6 C L 76 19 107/50 L 98 04/30/24 20:40 76 19 99 28 Laboratory Results Hemoglobin remained stable 7.5 range WBCs trending down slightly at 15.31 continues with moderate left shift Creatinine deteriorating 3.28 this morning
[2024-05-01] MEDS ORDERED: Nursing to Pharmacy Communication SCH (08:45)
--- NOTE | 2024-05-01 09:04 | Critical Care Progress Note ---
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 Critical care indication:Need for pressor support, mechanically ventilated post-operatively Plan: Neurologic Sedated with Fentanyl alone Cardiac Hypotension Multifactorial Remains on Vasopressin. Levophed restarted this AM. Hydrocortisone started 04/29/2024 HTN Aortic stenosis HFpEF with diastolic dysfunction last EF 50-55% on echo 11/2022 Home medications eliquis, furosemide, spironolactone, propranolol all held in the setting of hypotension Respiratory Intubated and sedated. Vent settings minimal - 16/360/6/28% Gastrointestinal Bowel ischemia CT abd 04/27; extensive pneumatosis involving majority of colon and rectum, extraluminal gas, cirrhotic liver, trace ascites s/p bowel resection with ileostomy on 04/27 Unfortunately, patient's history of cirrhosis secondary to fatty liver disease has resulted in large volume ascites which is likely contributing to her persistent hypotension as well. Will start the patient on scheduled albumin per treatment for HRS. Please see renal. Renal/electrolytes CKD stage 3b baseline Cr appears to be 1.7-1.9 EMY on CKD Monitor BUN/creatinine Avoid nephrotoxic medication Creatinine continues to climb despite appropriate maps. Patient remains on vasopressin and with the addition of low-dose Levophed this morning. Given the persistence of her symptoms, oliguria, and worsening creatinine in the setting of liver disease, would favor treatment for hepatorenal syndrome. Will place the patient on scheduled albumin 25% every 6 hours for 48 hours in addition to midodrine 5 mg 3 times daily, and octreotide 100 mcg subcu q8h. It is with hopes that we will be able to titrate off the vasopressor and improve renal flow. Appreciate nephrology consultation moving forward as well. Endocrine DMT2, insulin dependent last HA1c in January 2024; 8.2% Continue ISS per protocol Hypothyroidism Continue with levothyroxine IV Hematologic Chronic anemia MGUS baseline hgb appears to be 10-11 EBL noted to be ~500 mL from resection on 04/27 s/p 2 units blood 04/27 for hemoglobin drop 10.5 preop -> 5.5 postop fibrinogen level wnl H&H 7.4/21.7 today --> will transfuse 1 U PRBC today to help improve renal perfusion. Infectious disease Afebrile since admission WBC 10 -> 12.7 today on zosyn for empiric coverage given bowel ischemia and s/p bowel resection, will complete 7 days of antibiotics Integumentary Some bruises noted on skin, pt is on blood thinner at home --Prophylaxis VTE: IPC given the history of bleeding GI: Pantoprazole Lines: Right IJ, Lynn Diet: Start trophic feeds today Admission and Anticipated Discharge Date Admission Date: April 27, 2024 Supervising Physician Co-Signing Physician Notes I saw and evaluated the patient with Dar Knott PA-C, and agree with findings and plan as documented in the note. Seen and examined at bedside. No acute distress She was on 0.02 Levophed and 0.04 of vasopressin. Her MAP is actually in the 100s They had just moved her and a better position that might be the reason why her pressure was high Vasopressin was stopped when I was there Has been afebrile Constitutional: No acute distress HEENT: PERRLA Respiratory system: Good air entry bilaterally, no wheeze, no rhonchi, mild crackles bilateral lower lobes CVS: S1-S2 positive, positive 3 out of 6 systolic murmur appreciated best at aorta Abdomen: Soft, nontender, nondistended, positive bowel sounds x4, positive colostomy, incision site and dionne clean Extremities: +1 pulses bilaterally radialis/ dorsalis pedis, no cyanosis, +1 pitting edema bilateral lower extremity Neuro: RASS -2, breathing with the vent Psych: Unable to assess G/U: Positive Lynn --Prophylaxis VTE: IPC given the history of bleeding GI: Pantoprazole Lines: Right IJ, Lynn Diet: Continue with trophic feeds Plan: In/out: +381, urine output 558, +13 L since coming to the hospital H&H is dropping. Will give 1 more unit of PRBC Unfortunately her creatinine is going up, continue with vasopressor support to keep MAP around 65 Midodrine as well as albumin 25 g been added to see if hepatorenal picture for the worsening kidney function Octreotide has also been added Decrease hydrocortisone to twice daily and then gradually taper it off over the next 3 days Continue with p.o. next 2 mg twice daily Nephrology has been consulted I have personally spent 39 minutes of critical care time in the direct management of this patient. This is a life/limb threatening event. This includes time spent evaluating patient, direct bedside care, chart review, placing orders, interpretation of diagnostic studies, discussion with consultants, patient, and/or family members regarding treatment decisions, as well as other required patient management activities. Subjective Patient was seen and evaluated at bedside. Patient did require reinstitution of Levophed this morning. Urine output remains poor. Review of Systems 2 Review of Systems: Unobtainable due to endotracheal tube Physical Exam 2 Physical Exam: VITAL SIGNS - Vital signs and nursing notes were reviewed. GENERAL - 78-year-old female appearing her stated age who is in no acute distress. Intubated and sedated. SKIN - Without rashes. HEAD - NC/AT. EYES - PERRL with EOMI bilaterally. EARS - No deformities of external structures noted on gross examination bilaterally. NOSE - Midline and without cyanosis. MOUTH/OROPHARYNX - ETT/OGT in place. Without perioral cyanosis. NECK - Supple to palpation. RIGHT IJ CVL and LEFT EJ in place. LUNGS - Chest wall symmetric without accessory muscle use, intercostals retractions, or central cyanosis. Normal vesicular breath sounds CTA B/L. No wheezes, rales, or rhonchi appreciated. CARDIAC - RRR with S1/S2. No murmur, rubs, or gallops appreciated. ABDOMEN - Abdominal contour obese without pulsations or visible masses. BS hypoactive. Dressings clean, dry, and intact. EXTREMITIES - No clubbing or peripheral cyanosis. Pretibial edema present. +3/5 radial and dorsalis pedis pulses palpated throughout. NEUROLOGIC - No focal neurological deficits appreciated. Skin: no rashes, warm and dry Lymphatic: no cervical or axillary lymphadenopathy Results & Data Results & Data Vital Signs (Past 12 Hours) Vital Signs Temp Pulse Resp BP Pulse Ox FiO2 05/01/24 07:30 63 16 95 28 05/01/24 06:00 36.4 C L 66 18 104/49 L 100 05/01/24 05:00 36.4 C L 69 16 110/47 L 100 05/01/24 04:00 108/50 L 05/01/24 04:00 36.4 C L 65 16 108/50 L 99 05/01/24 04:00 28 05/01/24 03:00 36.4 C L 72 18 109/45 L 100 05/01/24 02:40 71 17 99 28 05/01/24 02:00 36.2 C L 102/42 L 05/01/24 01:06 36.1 C L 66 16 99 05/01/24 00:00 76 16 96/44 L 98 05/01/24 00:00 28 05/01/24 00:00 63 105/54 L 05/01/24 00:00 73 04/30/24 23:09 36.0 C L 76 16 96 04/30/24 23:09 77 18 99 28 04/30/24 22:09 35.8 C L 80 19 99 04/30/24 22:00 35.8 C L 79 18 103/46 L 99 Laboratory Results 05/01/24 09:37 05/01/24 03:57 Coding Level of Care Code 88273 CRITICAL CARE 1ST 30-74M Diagnoses Ischemia, bowel K55.9 Diabetes mellitus type 2 in obese E11.69; E66.9 Stage 3b chronic kidney disease N18.32 Chronic diastolic heart failure I50.32 Hypothyroidism E03.9 Shock circulatory R57.9 Acute kidney injury superimposed on stage 3b chronic kidney disease N17.9; N18.32 Cirrhosis K74.60
[2024-05-01] MEDS: ALBUMIN 25% 25 GM/100 ML VIAL IV SCH (09:58)
[2024-05-01] MEDS: HYDROCORTISONE SOD 50 MG in SYRINGE 0 ML IV SCH (10:02)
[2024-05-01 10:15] LABS: Hematocrit (blood only) 21.2 % (37.0-47.0); Hemoglobin 7.5 g/dl (12.0-16.0)
[2024-05-01] MEDS: OCTREOTIDE ACETATE 100 MCG/ML VIAL SQ SCH (10:28)
[2024-05-01] MEDS: MIDODRINE HCL 2.5 MG TAB PO SCH (10:31)
[2024-05-01] MEDS ORDERED: SODIUM CHLORIDE 0.9% 250 ML IV PRN (10:31)
[2024-05-01 10:47] LABS: Appearance Urine Clear (Clear); Bacteria Urine Automated None Seen (None Seen); Bilirubin Urine Negative (Negative); Blood Urine Negative (Negative); Cast Urine Automated >20 /lpf (0-2); Color Urine Yellow; Glucose Urine UA Negative (Negative); Ketones Urine Negative (Negative); Leukocyte Esterase Urine 1+ (Negative); Mucus Urine Present (None Prsent); Nitrite Urine Negative (Negative); Protein Urine Negative (Negative); Urobilinogen Urine Negative (Negative)
--- NOTE | 2024-05-01 10:57 | Nephrology Consultation ---
Date of Consultation May 01, 2024 Assessment & Plan (1) Acute kidney injury superimposed on stage 4 chronic kidney disease: * EMY on CKD likely due to ATN related to inflammation, septic shock * Patient may have an element of hepatorenal syndrome since liver is cirrhotic on CT and surgery reports draining a large volume of ascitic fluid * POC discussed w/ ICU team. Advised transfusion to maintain Hgb 8 or above, continue IV Levophed or substitute oral midodrine if trying to limit IVF. ICU team will provide a trial of octreotide * Medical update provided to niece Rosalind Joel. She states that she is Ms. Dudley's POA and believes that she would want a trial of HD if needed * Volume status, oxygenation, electrolyte balance are currently acceptable. No acute indication for HD at this time * Monitor BMP, LFT, UO (2) Shock circulatory: * Titrate Levophed to maintain MAP 65 or above (3) Cirrhosis: * ICU team to provide trial of octreotide (4) Ischemia, bowel: * s/p exploratory laparotomy w/ colectomy and ileostomy 04/27/24 History of Present Illness Reason for Consultation: EMY/CKD Attending Physician: Viviana Ibarra MD History of Present Illness Ms. Dudley is a 78 year old female who is seen at the request of the [facility] critical care team for evaluation of EMY/CKD. The EMR was reviewed, patient was examined and POC discussed w/ the ICU team. Ms. Dudley's niece/POA Rosalind Joel was present at the time of my evaluation. HPI is summarized as follows: Ms. Dudley has CKD stage G4 (advanced impairment). Baseline Cr 1.5-1.8 w/ EGFR 25 cc/min. Her primary Historical Society Director is Dr. Momin. Renal impairment has been attributed to recurrent hospitalization w/ EMY due to dehydration. 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 Ms. Dudley presented to the [facility] EMD 04/27/24 for evaluation of R hip and leg pain. She was hypotensive w/ SBP 80's, creatinine was elevated at 2.7. Evaluation revealed pneumatosis of the colon and pneumoperitoneum. 04/27/24 exploratory laparotomy w/ colonic resection and creation of ileostomy was performed. Post-op Hgb dropped to 5.5 and patient required pressor support. She has been transfused 2 U PRBC and remains on pressor support and mechanical ventilation in the ICU. Creatinine has risen to 3.28 and patient is oliguric. Surgeon reports large volume of ascitic fluid drained at time of surgery. Allergies Allergy/AdvReac Type Severity Reaction Status Date / Time No Known Allergies Allergy Verified 02/15/24 02:39 Home Medications Medication Instructions Recorded Confirmed Type cholecalciferol (vitamin D3) 50 2,000 unit PO QAM 07/01/18 03/07/24 History mcg (2,000 unit) capsule (Vitamin D3) multivitamin 1 tab PO QAM 10/14/19 03/07/24 History vitamin E 268 mg (400 unit) capsule 400 unit PO QAM 08/14/20 03/07/24 History coenzyme Q10 200 mg capsule 200 mg PO DAILY 11/01/21 03/07/24 History magnesium chloride 64 mg 128 mg (2 x 64 mg) PO TID #540 tabs 09/08/22 03/07/24 Rx (magnesium chloride) tablet,delayed release rifaximin 550 mg tablet (Xifaxan) 550 mg PO BID #60 tabs 07/14/23 03/07/24 Rx atorvastatin 10 mg tablet 10 mg PO HS #90 tabs 10/27/23 03/07/24 Rx blood-glucose meter,continuous #1 ea 11/15/23 03/07/24 Rx (Dexcom G7 Band Machine Operator) blood-glucose sensor (Dexcom G7 #1 ea 11/15/23 03/07/24 Rx Sensor device) pen needle, diabetic 31 gauge x #100 ea 11/15/23 03/07/24 Rx 5/16" (BD Ultra-Fine Short Pen Needle) spironolactone 25 mg tablet 25 mg PO QAM 12/06/23 03/07/24 History furosemide 40 mg tablet 40 mg PO BID 01/18/24 03/07/24 History insulin aspart U-100 100 unit/mL 5 unit subcut BIDM 02/15/24 03/07/24 History (3 mL) subcutaneous pen (Novolog FlexPen U-100 Insulin aspart) dextromethorphan-guaifenesin 5 10 ml PO Q6H PRN cough #500 mL 02/18/24 03/07/24 Rx mg-100 mg/5 mL oral liquid (Robitussin Cough-Chest Congestion DM) propranolol 10 mg tablet 10 mg PO TID 90 days #270 tabs 02/26/24 03/07/24 Rx apixaban 2.5 mg tablet (Eliquis) 2.5 mg PO BID #60 tabs 03/04/24 03/07/24 Rx benzonatate 100 mg capsule 100 mg PO TID PRN cough #20 caps 03/07/24 03/07/24 Rx silver sulfadiazine 1 % topical 1 applic topical DAILY 03/07/24 03/07/24 History cream (SSD) levothyroxine 75 mcg tablet 75 mcg PO DAILY #90 tabs 03/27/24 Rx insulin glargine 100 unit/mL (3 7 unit (0.07 mL) subcut QAM #6 mL 04/04/24 Rx mL) subcutaneous pen (Lantus Solostar U-100 Insulin) lactulose 10 gram/15 mL (15 mL) See Rx Instructions .Route 04/04/24 Rx oral solution .COMPLEX #1,440 mL pantoprazole 40 mg tablet,delayed 40 mg PO QAM #90 tabs 04/18/24 Rx release Patient History Medical History Infective endocarditis Streptococcal bacteremia ROSALES (obstructive sleep apnea) Rectal bleeding Hypomagnesemia Nausea vomiting and diarrhea Dizziness Acute hyperkalemia Encephalopathy acute Nausea & vomiting Rhinovirus Acute on chronic diastolic heart failure Volume overload Lactate blood increase Vomiting and diarrhea Wheezing Weakness DVT (deep venous thrombosis) Elevated troponin Thrombocytopenia Chronic deep vein thrombosis (DVT) Fever Pulmonary embolism 2018 > no known cause > Filter to right groin Diverticular hemorrhage resolved GI bleed none at present Esophageal varices determined by endoscopy Monoclonal gammopathy Osteoarthritis GERD (gastroesophageal reflux disease) Migraine Vertigo Surgical History H/O exploratory laparotomy (04/27/24) p Exploratory Laparotomy(Not Applicable) - Arie Melchor MD, FACS s Bowel Resection, creation of illiostomy(Not Applicable) - Arie Melchor MD, FACS Status post lumbar surgery History of laparoscopic cholecystectomy History of section x3 History of bilateral breast reduction surgery History of dilatation and curettage History of carpal tunnel release of both wrists History of total left knee replacement (TKR) History of total right knee replacement (TKR) History of lumbar spinal fusion hardware in place History of colonoscopy History of esophagogastroduodenoscopy (EGD) History of tooth extraction all teeth History of tonsillectomy History of bilateral cataract extraction Family History Mother Family history of diabetes mellitus Brother Family history of diabetes mellitus 3 brothers Colorectal cancer Myocardial infarction x 2 Father Myocardial infarction Denies family history of Ovarian cancer Prostate cancer Breast cancer Social History Smoking Status: Former smoker Tobacco Type: Cigarettes Age Started Using Tobacco: 15; Age Quit Using Tobacco: 21; Cigarettes Per Day: stopped 55 years ago; Second Hand Exposure: No; Do You Dip or Chew Tobacco: No; Hx Alcohol Use: No Hx Substance Use: No Preferred Language: Welsh Communication Ability: Impaired Visual Impairment: Limited Hearing Ability: Normal Music Instructor Required: No Beliefs That Will Affect Care: None marital status: / Current Living Situation: Family Current Living Situation Comment: lives with nijeimy Boyer current occupational status: retired How many Children do You have: 3 Feels Safe at Home: Yes Childhood Exposure to Second-Hand Smoke: Yes Diet: regular caffeine: Yes (tea) during the past year weight has: remained stable Dental Care, Regularly: No Physical Activity Frequency: Does not Exercise Seatbelt Use: always Sunscreen Use: No Do you think of yourself as: straight/heterosexual Gender Identity: Female Assistive Devices: CPAP and Walker Review of Systems Review of Systems: Unobtainable due to endotracheal tube Physical Exam Constitutional: + ill appearing Eyes: PERRL, conjunctivae normal, anicteric sclerae ENMT: orotracheal intubation Neck: trachea midline, no thyromegaly Respiratory: coarse breath sounds bilaterally Cardiovascular: RRR, no murmur, no edema Gastrointestinal (Abdomen): hypoactive BS, dark brown liquid stool in ileostomy Results & Data Vital Signs (Past 12 Hours) Vital Signs Temp Pulse Resp BP Pulse Ox FiO2 05/01/24 10:00 35.8 C L 76 19 134/60 99 05/01/24 09:00 123/54 L 05/01/24 09:00 123/54 L 05/01/24 09:00 36.4 C L 68 21 100 05/01/24 08:15 36.3 C L 83 19 95 05/01/24 08:00 28 05/01/24 08:00 68 123/54 L 05/01/24 08:00 75 05/01/24 08:00 144/77 H 05/01/24 07:30 63 16 95 28 05/01/24 07:12 36.5 C 68 17 100 05/01/24 07:00 135/57 L 05/01/24 06:00 36.4 C L 66 18 104/49 L 100 05/01/24 05:00 36.4 C L 69 16 110/47 L 100 05/01/24 04:00 108/50 L 05/01/24 04:00 36.4 C L 65 16 108/50 L 99 05/01/24 04:00 28 05/01/24 03:00 36.4 C L 72 18 109/45 L 100 05/01/24 02:40 71 17 99 28 05/01/24 02:00 36.2 C L 102/42 L 05/01/24 01:06 36.1 C L 66 16 99 05/01/24 00:00 76 16 96/44 L 98 05/01/24 00:00 28 05/01/24 00:00 63 105/54 L 05/01/24 00:00 73 04/30/24 23:09 36.0 C L 76 16 96 04/30/24 23:09 77 18 99 28 Laboratory Results Laboratory Results WBC 15.31 K/ul (4.8-10.8) H 05/01/24 03:57 RBC 2.48 M/uL (4.20-5.40) L 05/01/24 03:57 Hgb 7.5 g/dl (12.0-16.0) L 05/01/24 09:37 POC Hgb 7.8 g/dl (12.0-16.0) L 05/01/24 07:19 Hct 21.2 % (37.0-47.0) L 05/01/24 09:37 POC Hct 23 % (37-47) L 05/01/24 07:19 MCV 87.5 fL (80.0-100.0) 05/01/24 03:57 MCH 29.8 pg (25.0-34.0) 05/01/24 03:57 MCHC 34.1 g/dL (32.0-36.0) 05/01/24 03:57 RDW Std Deviation 48.5 fL (36.4-46.3) H 05/01/24 03:57 RDW Coeff of Leah 16.0 % (11.5-14.5) H 05/01/24 03:57 Plt Count 105 K/uL (130-400) L 05/01/24 03:57 MPV 11.5 fL (9.4-12.4) 05/01/24 03:57 Immature Gran % (Auto) 1.1 % 05/01/24 03:57 Neut % (Auto) 89.0 % 05/01/24 03:57 Lymph % (Auto) 5.9 % 05/01/24 03:57 [place] % (Auto) 3.9 % 05/01/24 03:57 Eos % (Auto) 0.0 % 05/01/24 03:57 Baso % (Auto) 0.1 % 05/01/24 03:57 Neut # (Auto) 13.63 K/uL (1.40-6.50) H 05/01/24 03:57 Lymph # (Auto) 0.91 K/uL (1.20-3.40) L 05/01/24 03:57 [place] # (Auto) 0.59 K/uL (0.11-0.59) 05/01/24 03:57 Eos # (Auto) 0.00 K/uL (0.00-0.50) 05/01/24 03:57 Baso # (Auto) 0.01 K/uL (0.00-0.20) 05/01/24 03:57 Immature Gran # (Auto) 0.17 K/uL (0.01-0.20) 05/01/24 03:57 Absolute Nucleated RBC 0.09 K/uL (0.00-0.12) 05/01/24 03:57 Nucleated RBC % (auto) 0.6 % 05/01/24 03:57 Platelet Estimate Decreased (Normal) L 04/30/24 04:21 RBC Morphology Unremarkable 05/01/24 03:57 Polychromasia 1+ 04/30/24 04:21 Anisocytosis Present 04/30/24 04:21 Echinocytes 1+ 04/30/24 04:21 PT 11.9 Seconds (9.0-12.0) 04/28/24 07:48 INR 1.1 (0.9-1.1) 04/28/24 07:48 APTT 29 Seconds (21-31) 04/28/24 07:48 PTT Ratio 1.1 04/28/24 07:48 Fibrinogen 189 mg/dl (184-400) 04/28/24 07:48 Sample Site Art Line 05/01/24 07:19 POC pH 7.39 (7.35-7.45) 05/01/24 07:19 POC pCO2 33 mmHg (35-46) L 05/01/24 07:19 POC pO2 109 mmHg (80-95) H 05/01/24 07:19 POC HCO3 20 michelle/L (19-24) 05/01/24 07:19 POC Total CO2 21 mmol/L (24-31) L 05/01/24 07:19 POC Base Excess -5.0 michelle/L (-9-1.8) 05/01/24 07:19 ABG pH (Temp Correct) 7.395 (7.35-7.45) 05/01/24 07:19 ABG pCO2 (Temp Corrct 32 mmHg (35-46) L 05/01/24 07:19 POC ABG pO2 at Pt Temp 105 05/01/24 07:19 POC ABG O2 Sat 98.0 % (90-95) H 05/01/24 07:19 Jesus Test NA 05/01/24 07:19 O2 Delivery Device Ventilator 04/30/24 05:08 POC O2 Rate 18 04/30/24 05:08 POC FiO2 28 % 04/30/24 05:08 Tidal Volume 360 04/30/24 05:08 PEEP 5 04/30/24 05:08 POC Sodium 131 mmol/L (135-144) L 05/01/24 07:19 Sodium 130 mmol/L (136-145) L 05/01/24 03:57 POC Potassium 4.0 mmol/L (3.3-5.0) 05/01/24 07:19 Potassium 4.2 mmol/L (3.5-5.1) 05/01/24 03:57 Chloride 100 mmol/L (98-107) 05/01/24 03:57 Carbon Dioxide 20 mmol/L (21-32) L 05/01/24 03:57 Anion Gap 10 (3-11) 05/01/24 03:57 BUN 62 mg/dl (6-23) H 05/01/24 03:57 Creatinine 3.28 mg/dl (0.6-1.2) H D 05/01/24 03:57 Est Cr Clr Drug Dosing 16.3 ml/min 05/01/24 03:57 eGFR 13.69 05/01/24 03:57 BUN/Creatinine Ratio 18.9 (10-20) 05/01/24 03:57 Glucose 123 mg/dl (70-99(Fasting)) H 05/01/24 03:57 POC Glucose 182 mg/dl (70-99) H 04/30/24 11:47 POC Glucose (other) 112 mg/dl (70-99) H 05/01/24 09:51 Lactate 1.7 mmol/L (0.4-2.0) 04/29/24 10:19 Calcium 7.2 mg/dl (8.6-10.3) L 05/01/24 03:57 Ionized Calcium 1.13 mmol/L (1.12-1.32) 04/28/24 07:48 Phosphorus 5.3 mg/dl (2.5-4.9) H 05/01/24 03:57 Magnesium 2.1 mg/dl (1.7-2.4) 05/01/24 03:57 Total Bilirubin 0.7 mg/dl (0.2-1.0) 04/30/24 04:21 Direct Bilirubin 0.2 mg/dl (0-0.2) 04/27/24 07:35 AST 19 U/L (13-39) 04/30/24 04:21 ALT 11 U/L (7-52) 04/30/24 04:21 Alkaline Phosphatase 83 U/L (34-104) 04/30/24 04:21 Lactate Dehydrogenase 153 U/L (86-244) 04/27/24 19:00 Total Protein 3.5 gm/dl (6.0-8.3) L 04/30/24 04:21 Albumin 1.7 gm/dl (3.4-5.0) L 04/30/24 04:21 Globulin 1.8 gm/dl (2.5-4.0) L 04/30/24 04:21 Albumin/Globulin Ratio 0.9 (0.9-2) 04/30/24 04:21 Cortisol AM Sample 18.41 mcg/dl (6.2-22.6) 04/29/24 07:36 Urine Color Yellow 04/29/24 10:38 Urine Appearance Cloudy (Clear) A 04/29/24 10:38 Urine pH 5.0 (4.5-7.5) 04/29/24 10:38 Ur Specific [place] 1.022 (1.000-1.030) 04/29/24 10:38 Urine Protein Trace (Negative) H 04/29/24 10:38 Urine Glucose (UA) Negative (Negative) 04/29/24 10:38 Urine Ketones Negative (Negative) 04/29/24 10:38 Urine Blood Negative (Negative) 04/29/24 10:38 Urine Nitrite Negative (Negative) 04/29/24 10:38 Urine Bilirubin Negative (Negative) 04/29/24 10:38 Urine Urobilinogen Negative (Negative) 04/29/24 10:38 Ur Leukocyte Esterase 1+ (Negative) H 04/29/24 10:38 Nasal Screen MRSA (PCR) Negative (Negative) 04/27/24 Unknown Blood Type A Negative 04/27/24 12:29 Antibody Screen NEGATIVE 04/27/24 12:29 Crossmatch See Detail 04/27/24 12:29 Impressions Abdomen/Pelvis CT 04/27/24 07:24 CT OF THE ABDOMEN AND PELVIS WITHOUT CONTRAST CLINICAL HISTORY: Right-sided abdominal pain. COMPARISON STUDY: CT of the abdomen and pelvis July 25, 2023. Renal ultrasound November 10, 2023. TECHNIQUE: Axial images of the abdomen and pelvis were obtained without IV contrast. Images were reviewed in the axial, sagittal, and coronal planes. Automated exposure control was utilized for the study. A dose lowering technique was utilized adhering to the principles of ALARA. FINDINGS: The heart is enlarged. The liver is cirrhotic. Although sensitivity is diminished on this unenhanced exam, no hepatic lesions are identified. The gallbladder surgically absent. Size of the spleen is normal. There is trace perihepatic ascites. Upper abdominal varices are again noted. IVC filter is in place. There is no evidence for a bowel obstruction. Of note, there is extensive pneumatosis involving the majority of the colon as well as rectal involvement. Gas extending into the mesentery and adjacent soft tissues is present. There are no fluid collections. Evaluation of the abdomen and pelvis is suboptimal on this unenhanced examination. There is no hydronephrosis. The bladder is distended. Postoperative findings within the spine are noted. There are no acute fractures within the visualized skeletal structures. IMPRESSION: 1. Extensive pneumatosis involving the majority of the colon and rectum with extraluminal gas extending into the mesentery and adjacent soft tissues. Trace associated infiltration and ascites. Pneumatosis represents a nonspecific finding although is worrisome for bowel ischemia. Correlation with clinical evidence for ischemia is recommended. 2. Cirrhotic liver. Trace perihepatic ascites. Redemonstration of upper abdomina l varices indicative of portal hypertension. 3. No bowel obstruction. ACT 112: Negative or not required by law. Electronically signed by: Eris Friedman M.D. 04/27/2024 8:11 AM Hip/Pelvis X-Ray 04/27/24 07:24 XR hip RT 2V w pelvis CLINICAL HISTORY: Right hip pain. COMPARISON: CT of the abdomen and pelvis July 25, 2023. Pelvis and right hip radiographs June 18, 2023. FINDINGS: Postoperative findings within the spine are better depicted on the lumbar spine radiographs which will be reported separately. There are no fractures within the pelvis or hips. Hip joint spaces are preserved. There is mild to moderate bilateral hip osteophytosis. There is no evidence for avascular necrosis of the femoral heads. A calcific density superior to the right hip suggests an old avulsion injury. Partially visualized healed right femoral diaphyseal fracture is present. IMPRESSION: 1. No fractures within the pelvis or hips. 2. Mild to moderate bilateral hip osteoarthritis. ACT 112: Negative or not required by law. Electronically signed by: Eris Friedman M.D. 04/27/2024 8:24 AM Lumbar Spine X-Ray 04/27/24 07:24 XR lumbar spine min 4V routine CLINICAL HISTORY: Right leg radiculopathy, hx of spine surgery COMPARISON STUDY: Lumbar spine MRI August 17, 2022. Lumbar spine radiographs December 22, 2022. FINDINGS: Incidental note is made of colonic pneumatosis, better depicted on the abdominal CT. There are cholecystectomy clips. IVC filter is in place. No lumbar spine fractures are present. Status post L4-S1 decompression and fusion. Hardware is intact. There is mild disc space narrowing and osteophytosis within the lumbar spine with moderate facet arthrosis. IMPRESSION: 1. No lumbar spine fractures. 2. Stable findings following L4-S1 decompression and fusion. ACT 112: Negative or not required by law. Electronically signed by: Eris Friedman M.D. 04/27/2024 8:25 AM Chest X-Ray 04/30/24 06:00 XR chest 1V portable CLINICAL HISTORY: eval tubes/lines/lung neely while intubated TECHNIQUE: Single frontal radiograph of the chest was obtained. Comparison: Comparison is made to chest radiograph 04/29/2024 FINDINGS: Lines and tubes are stable. Calcified aortic knob is seen. Faint bibasilar airspace opacities are seen. No evidence of pleural effusion or pneumothorax. IMPRESSION: Faint bibasilar airspace opacities which may represent atelectasis, pneumonia, and/or aspiration. ACT 112: Negative or not required by law. Electronically signed by: Cory Wolff M.D. 04/30/2024 7:37 AM KUB X-Ray 04/30/24 11:34 KUB CLINICAL HISTORY: Enteric tube placement. FINDINGS: 2 AP, portable, upright views of the lower chest and upper abdomen are correlated with abdominal CT dated 04/27/2024. An enteric tube has been placed. The tip projects below the diaphragm over the mid to distal stomach. There is a paucity of bowel gas, and the gas pattern is nonspecific. No intraperitoneal free air is seen below the diaphragm. Cholecystectomy clips are noted in the right upper quadrant. The bony structures appear intact. Fusion hardware is seen in the lumbar spine. Airspace consolidation is noted at the lung bases. IMPRESSION: An enteric tube has been placed as above. Electronically signed by: Kenyn Jung M.D. 04/30/2024 1:45 PM PG Care Time/CCT Total # of Minutes Spent Total Time Spent with Patient: Total time spent is greater than 50% in coordination of care (as documented) at patient's floor/unit and/or counseling patient: Coding Level of Care Code 21962 IN/OBS CONSULT LVL 5,80M Diagnoses Acute kidney injury superimposed on stage 4 chronic kidney disease N17.9; N18.4 Shock circulatory R57.9 Cirrhosis K74.60 Ischemia, bowel K55.9
[2024-05-01] MEDS: INSULIN ASPART PER UNIT CHARGE SC SCH (12:31)
--- NOTE | 2024-05-01 19:36 | Hospitalist Progress Note ---
Date of Service May 01, 2024 Assessment & Plan (1) Ischemia, bowel: Plan: Presented with abdominal pain and diffuse colonic pneumatosis seen on CT scan, and Severe sepsis with septic shock, POA. Appreciate general surgery consultation and recommendations. She underwent total colectomy with ileostomy formation on April 27. 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 Baseline creatinine 1.8-2.2 Hyponatremia improving with diuresis UA with trace protein but no definite signs of infection, urine culture negative Continue blood pressure support with vasopressors With hepatorenal syndrome-consult to nephrology. Started midodrine, octreotide, IV albumin Follow urine output, BMP Continues on bumex bid for hypervolemia Family has told nephrology that they would want a trial of hemodialysis as per patient's wishes (3) Anemia: Plan: *Acute blood loss anemia With a history of anemia of chronic kidney disease as well as MGUS, EBL 500 mL from surgery, on Eliquis and given FFP preoperatively as well as 2 unit PRBC Hemoglobin down to margarita of 5.5 after surgery from baseline of 10.5, then back up to 8.5 after 2 unit PRBCs, now back down and stable from yesterday at 7.4 Monitor for further bleeding, follow CBC (4) Diabetes mellitus type 2 in obese: Plan: Remains On insulin drip Receiving trophic feeds (5) Cirrhosis: Plan: History of Rothman cirrhosis and portal hypertension. Supportive care. Serial labs Holding home propranolol, rifaximin, spironolactone, lactulose, furosemide With ascites fluid coming from CRIS drain With hepatorenal syndrome as above (6) Chronic diastolic heart failure: Plan: Holding home diuretics but continuing on IV Bumex bid (7) HTN (hypertension): Plan: Oral antihypertensive medications are on hold. Currently requiring pressor support Also with moderate aortic stenosis (8) PAF (paroxysmal atrial fibrillation): Plan: Remains in normal sinus rhythm here Eliquis on hold for bleeding and recent surgery Propranolol on hold (9) Hypothyroidism: Plan: TSH normal in 07/2023 continue IV levothyroxine every 72 hours (10) Obesity: Plan: Morbidly obese. BMI 48.8 ROSALES-on ventilator Plan [id number], IJ central venous catheter, peripheral IV, Lynn catheter, CRIS drain DVT prophylaxis-SCDs GI prophylaxis-IV Protonix Disposition-continued stay in ICU, prognosis quite guarded Admission and Anticipated Discharge Date Admission Date: April 27, 2024 Subjective Patient remains intubated and sedated. Still requiring pressors and started on IV albumin, octreotide, and midodrine today for hepatorenal syndrome. Still with a lot of ascites from CRIS drain. Renal function worsening and urine output remains low Physical Exam Constitutional: well developed and + mechanically ventilated; no acute distress Respiratory: symmetric chest movement Cardiovascular: Rate/Rhythm: regular rate and regular rhythm Heart Sounds: no murmur Extremities: + edema (Trace pitting edema) Gastrointestinal (Abdomen): Inspection/Auscultation: + hypoactive bowel sounds; + abdomen abnormal to inspection (Colostomy bag in place with small amount of bilious liquid) Percussion/Palpation: abdomen soft Psychiatric: Orientation: + not alert Genitourinary: + abnormal external appearance (Lynn ca theter in place) Results & Data Results & Data Vital Signs (Past 12 Hours) Vital Signs Temp Pulse Resp BP Pulse Ox O2 Flow Rate FiO2 05/01/24 18:00 35.9 C L 85 19 98 05/01/24 18:00 139/73 05/01/24 18:00 139/73 05/01/24 18:00 139/73 05/01/24 17:09 35.8 C L 91 H 17 99 05/01/24 17:00 138/66 05/01/24 17:00 138/66 05/01/24 16:54 35.8 C L 79 6 L 97 05/01/24 16:00 136/58 L 05/01/24 16:00 35.8 C L 83 17 98 05/01/24 16:00 28 05/01/24 16:00 85 138/54 L 05/01/24 16:00 85 05/01/24 15:30 83 18 100 28 05/01/24 15:06 35.8 C L 76 18 98 05/01/24 15:05 35.8 C L 79 18 132/49 L 97 05/01/24 15:00 139/59 L 05/01/24 15:00 139/59 L 05/01/24 14:51 35.8 C L 75 25 H 98 05/01/24 14:48 36 C L 77 12 129/49 L 99 05/01/24 14:12 35.0 C L 77 19 98 05/01/24 13:50 36 C L 77 19 135/58 L 98 05/01/24 13:20 36.4 C L 78 12 145/55 H 99 6 05/01/24 13:20 36.4 C L 78 22 145/55 H 99 05/01/24 13:04 36.2 C L 74 22 130/49 L 100 05/01/24 13:03 35.7 C L 75 19 98 05/01/24 13:00 133/64 05/01/24 13:00 133/64 05/01/24 13:00 133/64 05/01/24 12:54 35.7 C L 70 19 100 05/01/24 12:46 36.3 C L 70 16 127/48 L 100 05/01/24 12:06 35.8 C L 73 17 100 05/01/24 12:00 111/51 L 05/01/24 12:00 28 05/01/24 12:00 68 120/46 L 05/01/24 11:39 35.9 C L 77 20 100 05/01/24 11:15 68 16 97 28 05/01/24 11:03 35.9 C L 70 22 100 05/01/24 11:00 138/61 05/01/24 11:00 138/61 05/01/24 10:57 35.9 C L 75 14 99 05/01/24 10:56 154/71 H 05/01/24 10:51 82 18 100 05/01/24 10:00 35.8 C L 76 19 134/60 99 05/01/24 09:00 123/54 L 05/01/24 09:00 123/54 L 05/01/24 09:00 36.4 C L 68 21 100 05/01/24 08:15 36.3 C L 83 19 95 05/01/24 08:00 28 05/01/24 08:00 68 123/54 L 05/01/24 08:00 75 05/01/24 08:00 144/77 H Laboratory Results CBC, CMP, magnesium, ABG, urine culture reviewed PG Care Time/CCT Total # of Minutes Spent Total Time Spent with Patient: Total time spent is greater than 50% in coordination of care (as documented) at patient's floor/unit and/or counseling patient: Coding Level of Care Code 39855 SUB INP/OBS CARE 2/35MIN Diagnoses Ischemia, bowel K55.9 Acute kidney injury superimposed on stage 3b chronic kidney disease N17.9; N18.32 Anemia D64.9 Anemia type: unspecified type Diabetes mellitus type 2 in obese E11.69; E66.9 Cirrhosis K74.60 Chronic diastolic heart failure I50.32 HTN (hypertension) I10 Hypertension type: unspecified PAF (paroxysmal atrial fibrillation) I48.0 Hypothyroidism E03.9 Obesity E66.9 (3) Anemia Anemia type: unspecified type Qualified Code(s): D64.9 - Anemia, unspecified (7) HTN (hypertension) Hypertension type: unspecified Qualified Code(s): I10 - Essential (primary) hypertension
[2024-05-02 04:25] LABS: Calcium 7.9 mg/dl (8.6-10.3); Potassium 3.8 mmol/L (3.5-5.1)
[2024-05-02 04:31] LABS: BUN Creatinine Ratio 21.5 (10-20); Creatinine Clr Calc Pharmacy 16.3 ml/min
[2024-05-02 04:48] LABS: Magnesium 2.1 mg/dl (1.7-2.4)
[2024-05-02 04:54] LABS: Phosphorus 5.9 mg/dl (2.5-4.9)
[2024-05-02 04:58] LABS: Hematocrit (blood only) 18.6 % (37.0-47.0); Hemoglobin 6.5 g/dl (12.0-16.0); Mean Corpuscular Hemoglobin 28.8 pg (25.0-34.0); Mean Corpuscular Hgb Conc 34.9 g/dL (32.0-36.0); Mean Corpuscular Volume 82.3 fL (80.0-100.0); Mean Platelet Volume 10.5 fL (9.4-12.4); Nucleated RBC # (auto) 0.03 K/uL (0.00-0.12); Nucleated RBC % (auto) 0.4 %; Platelet Count 43 K/uL (130-400); RDW Coefficient of Variation 16.9 % (11.5-14.5); RDW Standard Deviation 48.1 fL (36.4-46.3); Red Blood Count 2.26 M/uL (4.20-5.40); White Blood Count 6.78 K/ul (4.8-10.8)
[2024-05-02 04:59] LABS: Immature Granulocytes # (auto) 0.07 K/uL (0.01-0.20); Lymphocytes # (auto) 0.49 K/uL (1.20-3.40); Lymphocytes % (auto) 7.2 %; Monocytes # (auto) 0.33 K/uL (0.11-0.59); Monocytes % (auto) 4.9 %; Neutrophils # (auto) 5.89 K/uL (1.40-6.50); Neutrophils % (auto) 86.9 %; Platelet Estimate Decreased (Normal); RBC Morphology Unremarkable
[2024-05-02] MEDS ORDERED: SODIUM CHLORIDE 0.9% 250 ML IV PRN ×4 (05:33→15:56)
--- NOTE | 2024-05-02 06:56 | Critical Care Progress Note ---
Date of Service May 02, 2024 Assessment & Plan (1) Ischemia, bowel: (2) EMY (acute kidney injury): (3) Diabetes mellitus type 2 in obese: (4) HTN (hypertension): (5) Stage 3b chronic kidney disease: (6) Chronic diastolic heart failure: (7) Hypothyroidism: Plan Assessment: Pt is an 78 yo female with a past medical hx of CKD stage 3b (baseline Cr 1.7-1.9), HTN, MGUS, ROSALES, diastolic HF, aortic stenosis, cirrhosis secondary to GREGORY, portal HTN, DMT2, hypothyroidism, hx meningioma, atrial fibrillation and hx DVT on eliquis who presents to the hospital on 04/27 for abdominal pain and bloody diarrhea found to have bowel ischemia, s/p bowel resection on 04/27. Critical care indication:Need for pressor support, mechanically ventilated post-operatively Plan: Neurologic Sedated with Fentanyl alone Cardiac Hypotension Multifactorial Remains on Vasopressin. Goal MAP >75. Wean. Hydrocortisone started 04/29/2024 HTN Aortic stenosis HFpEF with diastolic dysfunction last EF 50-55% on echo 11/2022 Home medications eliquis, furosemide, spironolactone, propranolol all held in the setting of hypotension Respiratory Intubated and sedated. Vent settings minimal - 16/360/6/28% Gastrointestinal Bowel ischemia CT abd 04/27; extensive pneumatosis involving majority of colon and rectum, extraluminal gas, cirrhotic liver, trace ascites s/p bowel resection with ileostomy on 04/27 Unfortunately, patient's history of cirrhosis secondary to fatty liver disease has resulted in large volume ascites which is likely contributing to her persistent hypotension as well. Will start the patient on scheduled albumin per treatment for HRS. Please see renal. CT abd; small hemorrhage spots noted, no large collections Renal/electrolytes CKD stage 3b baseline Cr appears to be 1.7-1.9 EMY on CKD Monitor BUN/creatinine Avoid nephrotoxic medication Patient remains on vasopressin. Given the persistence of her symptoms, oliguria, and worsening creatinine in the setting of liver disease, would favor treatment for hepatorenal syndrome. Will place the patient on scheduled albumin 25% every 6 hours for 48 hours in addition to midodrine 5 mg 3 times daily, and octreotide 100 mcg subcu q8h. It is with hopes that we will be able to titrate off the vasopressor and improve renal flow. Appreciate nephrology consultation moving forward as well. Endocrine DMT2, insulin dependent last HA1c in January 2024; 8.2% Continue ISS per protocol Hypothyroidism Continue with levothyroxine IV Hematologic Chronic anemia MGUS baseline hgb appears to be 10-11 EBL noted to be ~500 mL from resection on 04/27 s/p 2 units blood 04/27 for hemoglobin drop 10.5 preop -> 5.5 postop, got 1 unit on 05/01 (3 units total this admission) fibrinogen level wnl initially, low today, PT/INR pending. LDH wnl Hgb overnight 6.5, transfusing 2 units today with goal Hgb >8 Infectious disease Afebrile since admission WBC 6.7 today on zosyn for empiric coverage given bowel ischemia and s/p bowel resection, will complete 7 days of antibiotics Integumentary Some bruises noted on skin, pt is on blood thinner at home --Prophylaxis VTE: IPC given the history of bleeding GI: Pantoprazole Lines: Right IJ, Lynn Diet: Trophic feeds Admission and Anticipated Discharge Date Admission Date: April 27, 2024 Supervising Physician Co-Signing Physician Notes Dr Ayers was the resident-physician during care of patient. I separately evaluated patient for almanzar portions of the history and the exam. I was present during the critical portion of medical decision making, and I discussed the case with the resident. I generally agree with the findings and plan except for any additions/exceptions noted. Patient seen and examined at bedside. No acute distress, notable symptoms overnight She was on 0.04 of vasopressin. She has been off of Levophed On fentanyl for sedation Maps have been in the high 80s to low 90s Has been afebrile Constitutional: No acute distress HEENT: PERRLA Respiratory system: Good air entry bilaterally, no wheeze, no rhonchi, mild crackles bilateral lower lobes CVS: S1-S2 positive, positive 3 out of 6 systolic murmur appreciated best at aorta Abdomen: Soft, nontender, nondistended, positive bowel sounds x4, positive colostomy, incision site and dionne clean Extremities: +1 pulses bilaterally radialis/ dorsalis pedis, no cyanosis, +1 pitting edema bilateral lower extremity Neuro: RASS -2, breathing with the vent Psych: Unable to assess G/U: Positive Lynn --Prophylaxis VTE: IPC given the history of bleeding GI: Pantoprazole Lines: Right IJ, Lynn Diet: Continue with trophic feeds Plan: In/out: Positive to 90, urine output 1470 Patient again dropped her hemoglobin. 2 units of PRBC will be given to the patient. CT of the abdomen pelvis did not show any significant bleed. There is small pockets of old blood likely from surgical procedure NGT 1 put to suction had little bit of serosanguineous fluid in the end. Fibrinogen is on the lower side and INR is mildly elevated 1.5 Given the continuous bleeding I will give her FFP as well as cryo Continue with midodrine as well as albumin along with octreotide Octreotide has also been added Taper hydrocortisone off I have personally spent 38 minutes of critical care time in the direct management of this patient. This is a life/limb threatening event. This includes time spent evaluating patient, direct bedside care, chart review, placing orders, interpretation of diagnostic studies, discussion with consultants, patient, and family members, as well as other required patient management activities. This time is exclusive of all separately billable procedures, and teaching time and separate from and in addition to any other critical care service time. Please note the above document was generated using voice recognition software. It may contain grammatical, syntax or spelling errors. Subjective Today, pt remains intubated and sedated with fentanyl. She does move her head and arms to verbal stimuli but unable to follow commands and does not open eyes this morning. Review of Systems Review of Systems: Unobtainable due to endotracheal tube Physical Exam Physical Exam: General: Intubated, sedated but no acute distress apparent, Resp: Intubated and on ventilator, lungs clear to auscultation today Cardio: Irregular rhythm, rate in the 70s GI: Ileostomy in place with dark green stool in bag, urostomy on L side of abdomen with bloody urine noted Skin: Dry, pale appearing but warm Skin: no rashes, warm and dry Lymphatic: no cervical or axillary lymphadenopathy Results & Data Results & Data Vital Signs (Past 12 Hours) Vital Signs Temp Pulse Resp BP Pulse Ox O2 Del Method FiO2 05/02/24 06:39 36.6 C 74 18 136/53 L 98 05/02/24 06:24 36.6 C 78 18 137/55 L 95 05/02/24 06:18 36.6 C 75 18 97 05/02/24 06:09 36.6 C 76 19 94 05/02/24 06:04 36.6 C 76 17 130/51 L 95 05/02/24 05:51 36.6 C 75 16 98 05/02/24 05:30 36.6 C 74 19 98 05/02/24 05:18 36.6 C 76 16 98 05/02/24 05:03 36.6 C 79 16 97 05/02/24 05:00 126/65 05/02/24 05:00 126/65 05/02/24 05:00 126/65 05/02/24 04:54 36.6 C 75 16 98 05/02/24 04:30 36.5 C 81 25 H 96 05/02/24 04:15 36.5 C 79 19 97 05/02/24 04:00 125/66 05/02/24 04:00 125/66 05/02/24 04:00 36.5 C 79 18 98 05/02/24 04:00 28 05/02/24 04:00 76 139/52 L 05/02/24 03:30 36.5 C 73 18 99 05/02/24 03:15 36.5 C 76 16 98 05/02/24 03:00 132/61 05/02/24 03:00 36.5 C 75 16 99 05/02/24 02:30 36.4 C L 76 18 100 05/02/24 02:22 76 18 99 28 05/02/24 02:00 36.4 C L 75 16 98 05/02/24 02:00 133/66 05/02/24 02:00 133/66 05/02/24 02:00 133/66 05/02/24 01:45 36.4 C L 77 16 99 05/02/24 01:24 36.4 C L 80 19 98 05/02/24 01:00 133/69 05/02/24 01:00 36.4 C L 81 19 98 05/02/24 00:48 36.4 C L 78 14 99 05/02/24 00:36 36.4 C L 78 14 98 05/02/24 00:15 36.3 C L 80 15 95 05/02/24 00:00 128/63 05/02/24 00:00 36.3 C L 79 15 98 05/02/24 00:00 28 05/02/24 00:00 78 130/51 L 05/01/24 23:45 36.3 C L 78 14 99 05/01/24 23:39 36.3 C L 76 15 99 05/01/24 23:15 36.3 C L 79 20 97 05/01/24 23:06 80 05/01/24 23:00 135/74 05/01/24 23:00 36.3 C L 80 16 99 05/01/24 22:52 79 18 99 28 05/01/24 22:45 36.3 C L 80 23 98 05/01/24 22:30 36.3 C L 90 21 97 05/01/24 22:15 36.3 C L 83 18 98 05/01/24 22:06 36.2 C L 87 22 98 05/01/24 22:00 135/64 05/01/24 21:54 36.2 C L 80 17 99 05/01/24 21:45 36.2 C L 80 17 99 05/01/24 21:42 36.2 C L 81 16 98 05/01/24 21:15 36.2 C L 85 23 96 05/01/24 21:09 Mechanical Vent 05/01/24 21:03 36.2 C L 80 19 99 05/01/24 21:00 127/64 05/01/24 20:51 36.2 C L 80 16 97 05/01/24 20:00 127/46 L 05/01/24 19:15 87 22 99 28 Resident Activity Tracking Resident Involvement: Resident Care Provided Care Provided: Adult Hospital Medicine (4) HTN (hypertension) Hypertension type: unspecified Qualified Code(s): I10 - Essential (primary) hypertension
--- NOTE | 2024-05-02 08:56 | Nephrology Progress Note ---
Date of Service May 02, 2024 Assessment & Plan (1) Acute kidney injury superimposed on stage 4 chronic kidney disease: Plan: * EMY on CKD likely due to ATN related to inflammation, septic shock * Patient may have an element of hepatorenal syndrome since liver is cirrhotic on CT and surgery reports draining a large volume of ascitic fluid * Kidney function remains stable. Volume status and oxygenation are acceptable. Patient has transitioned to a nonoliguric state following administration of IV albumin, octreotide and oral midodrine. * Medical update provided to niece Rosalind Joel this am. No acute indication for HD at this time. Continue supportive therapy * Monitor BMP, LFT, UO (2) Shock circulatory: Plan: * Titrate vasopressin to maintain MAP 65 or above * Levophed has been stopped * Patient is on oral midodrine * Patient is on IV hydrocortisone (3) Cirrhosis: Plan: * octreotide as per ICU team (4) Ischemia, bowel: Plan: * s/p exploratory laparotomy w/ colectomy and ileostomy 04/27/24 * Recurrent anemia * Recommend transfusion to maintain Hgb > 8.0 * Await results of abdominal CT Admission and Anticipated Discharge Date Admission Date: April 27, 2024 Subjective Ms. Dudley was evaluated in the ICU this morning. Her niece/POA Rosalind Joel was present at bedside. Ms. Dudley remains sedated, mechanically ventilated and requires pressor support. ICU staff has just brought her back from abdominal CT due to recent drop in Hgb Review of Systems Review of Systems: Unobtainable due to endotracheal tube Physical Exam Constitutional: + ill appearing Eyes: PERRL, conjunctivae normal, anicteric sclerae Neck: trachea midline, no thyromegaly Cardiovascular: RRR, no murmur, no edema Gastrointestinal (Abdomen): Hypoactive BS. Ileostomy w/ liquid brown stool Neurologic: sedated Results & Data Vital Signs (Past 12 Hours) Vital Signs Temp Pulse Resp BP Pulse Ox O2 Del Method FiO2 05/02/24 08:00 76 05/02/24 07:27 84 16 96 28 05/02/24 06:39 36.6 C 74 18 136/53 L 98 05/02/24 06:24 36.6 C 78 18 137/55 L 95 05/02/24 06:18 36.6 C 75 18 97 05/02/24 06:09 36.6 C 76 19 94 05/02/24 06:04 36.6 C 76 17 130/51 L 95 05/02/24 05:51 36.6 C 75 16 98 05/02/24 05:30 36.6 C 74 19 98 05/02/24 05:18 36.6 C 76 16 98 05/02/24 05:03 36.6 C 79 16 97 05/02/24 05:00 126/65 05/02/24 05:00 126/65 05/02/24 05:00 126/65 05/02/24 04:54 36.6 C 75 16 98 05/02/24 04:30 36.5 C 81 25 H 96 05/02/24 04:15 36.5 C 79 19 97 05/02/24 04:00 125/66 05/02/24 04:00 125/66 05/02/24 04:00 36.5 C 79 18 98 05/02/24 04:00 28 05/02/24 04:00 76 139/52 L 05/02/24 03:30 36.5 C 73 18 99 05/02/24 03:15 36.5 C 76 16 98 05/02/24 03:00 132/61 05/02/24 03:00 36.5 C 75 16 99 05/02/24 02:30 36.4 C L 76 18 100 05/02/24 02:22 76 18 99 28 05/02/24 02:00 36.4 C L 75 16 98 05/02/24 02:00 133/66 05/02/24 02:00 133/66 05/02/24 02:00 133/66 05/02/24 01:45 36.4 C L 77 16 99 05/02/24 01:24 36.4 C L 80 19 98 05/02/24 01:00 133/69 05/02/24 01:00 36.4 C L 81 19 98 05/02/24 00:48 36.4 C L 78 14 99 05/02/24 00:36 36.4 C L 78 14 98 05/02/24 00:15 36.3 C L 80 15 95 05/02/24 00:00 128/63 05/02/24 00:00 36.3 C L 79 15 98 05/02/24 00:00 28 05/02/24 00:00 78 130/51 L 05/01/24 23:45 36.3 C L 78 14 99 05/01/24 23:39 36.3 C L 76 15 99 05/01/24 23:15 36.3 C L 79 20 97 05/01/24 23:06 80 05/01/24 23:00 135/74 05/01/24 23:00 36.3 C L 80 16 99 05/01/24 22:52 79 18 99 28 05/01/24 22:45 36.3 C L 80 23 98 05/01/24 22:30 36.3 C L 90 21 97 05/01/24 22:15 36.3 C L 83 18 98 05/01/24 22:06 36.2 C L 87 22 98 05/01/24 22:00 135/64 05/01/24 21:54 36.2 C L 80 17 99 05/01/24 21:45 36.2 C L 80 17 99 05/01/24 21:42 36.2 C L 81 16 98 05/01/24 21:15 36.2 C L 85 23 96 05/01/24 21:09 Mechanical Vent 05/01/24 21:03 36.2 C L 80 19 99 05/01/24 21:00 127/64 Laboratory Results Laboratory Results - last 24 hr 05/01/24 05/01/24 05/01/24 09:37 09:50 09:51 WBC RBC Hgb 7.5 L Hct 21.2 L MCV MCH MCHC RDW Std Deviation RDW Coeff of Leah Plt Count MPV Immature Gran % (Auto) Neut % (Auto) Lymph % (Auto) [place] % (Auto) Eos % (Auto) Baso % (Auto) Neut # (Auto) Lymph # (Auto) [place] # (Auto) Eos # (Auto) Baso # (Auto) Immature Gran # (Auto) Absolute Nucleated RBC Nucleated RBC % (auto) Platelet Estimate RBC Morphology Fibrinogen D-Dimer Factor VIII Activity Sodium Potassium Chloride Carbon Dioxide Anion Gap BUN Creatinine Est Cr Clr Drug Dosing eGFR BUN/Creatinine Ratio Glucose POC Glucose (other) 112 H Calcium Phosphorus Magnesium Total Bilirubin Direct Bilirubin AST ALT Alkaline Phosphatase Lactate Dehydrogenase Total Protein Albumin Urine Color Yellow Urine Appearance Clear Urine pH 5.0 Ur Specific [place] 1.020 Urine Protein Negative Urine Glucose (UA) Negative Urine Ketones Negative Urine Blood Negative Urine Nitrite Negative Urine Bilirubin Negative Urine Urobilinogen Negative Ur Leukocyte Esterase 1+ H Urine WBC (Auto) 6-10 H Urine RBC (Auto) 3-5 H U Hyaline Cast (Auto) >20 H U Epithel Cells (Auto) 6-10 H Urine Bacteria (Auto) None Seen Urine Mucus Present A Blood Type A Negative Antibody Screen NEGATIVE Crossmatch See Detail 05/01/24 05/01/24 05/01/24 12:10 13:29 15:30 WBC RBC Hgb Hct MCV MCH MCHC RDW Std Deviation RDW Coeff of Leah Plt Count MPV Immature Gran % (Auto) Neut % (Auto) Lymph % (Auto) [place] % (Auto) Eos % (Auto) Baso % (Auto) Neut # (Auto) Lymph # (Auto) [place] # (Auto) Eos # (Auto) Baso # (Auto) Immature Gran # (Auto) Absolute Nucleated RBC Nucleated RBC % (auto) Platelet Estimate RBC Morphology Fibrinogen D-Dimer Factor VIII Activity Sodium Potassium Chloride Carbon Dioxide Anion Gap BUN Creatinine Est Cr Clr Drug Dosing eGFR BUN/Creatinine Ratio Glucose POC Glucose (other) 87 97 130 H Calcium Phosphorus Magnesium Total Bilirubin Direct Bilirubin AST ALT Alkaline Phosphatase Lactate Dehydrogenase Total Protein Albumin Urine Color Urine Appearance Urine pH Ur Specific [place] Urine Protein Urine Glucose (UA) Urine Ketones Urine Blood Urine Nitrite Urine Bilirubin Urine Urobilinogen Ur Leukocyte Esterase Urine WBC (Auto) Urine RBC (Auto) U Hyaline Cast (Auto) U Epithel Cells (Auto) Urine Bacteria (Auto) Urine Mucus Blood Type Antibody Screen Crossmatch 05/01/24 05/01/24 05/01/24 16:50 17:44 18:45 WBC RBC Hgb Hct MCV MCH MCHC RDW Std Deviation RDW Coeff of Leah Plt Count MPV Immature Gran % (Auto) Neut % (Auto) Lymph % (Auto) [place] % (Auto) Eos % (Auto) Baso % (Auto) Neut # (Auto) Lymph # (Auto) [place] # (Auto) Eos # (Auto) Baso # (Auto) Immature Gran # (Auto) Absolute Nucleated RBC Nucleated RBC % (auto) Platelet Estimate RBC Morphology Fibrinogen D-Dimer Factor VIII Activity Sodium Potassium Chloride Carbon Dioxide Anion Gap BUN Creatinine Est Cr Clr Drug Dosing eGFR BUN/Creatinine Ratio Glucose POC Glucose (other) 149 H 153 H 162 H Calcium Phosphorus Magnesium Total Bilirubin Direct Bilirubin AST ALT Alkaline Phosphatase Lactate Dehydrogenase Total Protein Albumin Urine Color Urine Appearance Urine pH Ur Specific [place] Urine Protein Urine Glucose (UA) Urine Ketones Urine Blood Urine Nitrite Urine Bilirubin Urine Urobilinogen Ur Leukocyte Esterase Urine WBC (Auto) Urine RBC (Auto) U Hyaline Cast (Auto) U Epithel Cells (Auto) Urine Bacteria (Auto) Urine Mucus Blood Type Antibody Screen Crossmatch 05/01/24 05/01/24 05/02/24 20:37 22:39 01:04 WBC RBC Hgb Hct MCV MCH MCHC RDW Std Deviation RDW Coeff of Leah Plt Count MPV Immature Gran % (Auto) Neut % (Auto) Lymph % (Auto) [place] % (Auto) Eos % (Auto) Baso % (Auto) Neut # (Auto) Lymph # (Auto) [place] # (Auto) Eos # (Auto) Baso # (Auto) Immature Gran # (Auto) Absolute Nucleated RBC Nucleated RBC % (auto) Platelet Estimate RBC Morphology Fibrinogen D-Dimer Factor VIII Activity Sodium Potassium Chloride Carbon Dioxide Anion Gap BUN Creatinine Est Cr Clr Drug Dosing eGFR BUN/Creatinine Ratio Glucose POC Glucose (other) 166 H 162 H 161 H Calcium Phosphorus Magnesium Total Bilirubin Direct Bilirubin AST ALT Alkaline Phosphatase Lactate Dehydrogenase Total Protein Albumin Urine Color Urine Appearance Urine pH Ur Specific [place] Urine Protein Urine Glucose (UA) Urine Ketones Urine Blood Urine Nitrite Urine Bilirubin Urine Urobilinogen Ur Leukocyte Esterase Urine WBC (Auto) Urine RBC (Auto) U Hyaline Cast (Auto) U Epithel Cells (Auto) Urine Bacteria (Auto) Urine Mucus Blood Type Antibody Screen Crossmatch 05/02/24 05/02/24 05/02/24 03:41 04:00 05:51 WBC 6.78 RBC 2.26 L Hgb 6.5 L* Hct 18.6 L* MCV 82.3 D MCH 28.8 MCHC 34.9 RDW Std Deviation 48.1 H RDW Coeff of Leah 16.9 H Plt Count 43 L D MPV 10.5 Immature Gran % (Auto) 1.0 Neut % (Auto) 86.9 Lymph % (Auto) 7.2 [place] % (Auto) 4.9 Eos % (Auto) 0.0 Baso % (Auto) 0.0 Neut # (Auto) 5.89 Lymph # (Auto) 0.49 L [place] # (Auto) 0.33 Eos # (Auto) 0.00 Baso # (Auto) 0.00 Immature Gran # (Auto) 0.07 Absolute Nucleated RBC 0.03 Nucleated RBC % (auto) 0.4 Platelet Estimate Decreased L RBC Morphology Unremarkable Fibrinogen D-Dimer Factor VIII Activity Sodium 132 L Potassium 3.8 Chloride 99 Carbon Dioxide 21 Anion Gap 12 H BUN 70 H Creatinine 3.25 H Est Cr Clr Drug Dosing 16.3 eGFR 13.84 BUN/Creatinine Ratio 21.5 H Glucose 170 H POC Glucose (other) 160 H 166 H Calcium 7.9 L Phosphorus 5.9 H Magnesium 2.1 Total Bilirubin Direct Bilirubin AST ALT Alkaline Phosphatase Lactate Dehydrogenase Total Protein Albumin Urine Color Urine Appearance Urine pH Ur Specific [place] Urine Protein Urine Glucose (UA) Urine Ketones Urine Blood Urine Nitrite Urine Bilirubin Urine Urobilinogen Ur Leukocyte Esterase Urine WBC (Auto) Urine RBC (Auto) U Hyaline Cast (Auto) U Epithel Cells (Auto) Urine Bacteria (Auto) Urine Mucus Blood Type Antibody Screen Crossmatch 05/02/24 05/02/24 08:07 08:33 WBC RBC Hgb Hct MCV MCH MCHC RDW Std Deviation RDW Coeff of Leah Plt Count MPV Immature Gran % (Auto) Neut % (Auto) Lymph % (Auto) [place] % (Auto) Eos % (Auto) Baso % (Auto) Neut # (Auto) Lymph # (Auto) [place] # (Auto) Eos # (Auto) Baso # (Auto) Immature Gran # (Auto) Absolute Nucleated RBC Nucleated RBC % (auto) Platelet Estimate RBC Morphology Fibrinogen Pending D-Dimer Pending Factor VIII Activity Pending Sodium Potassium Chloride Carbon Dioxide Anion Gap BUN Creatinine Est Cr Clr Drug Dosing eGFR BUN/Creatinine Ratio Glucose POC Glucose (other) 176 H Calcium Phosphorus Magnesium Total Bilirubin Pending Direct Bilirubin Pending AST Pending ALT Pending Alkaline Phosphatase Pending Lactate Dehydrogenase Pending Total Protein Pending Albumin Pending Urine Color Urine Appearance Urine pH Ur Specific [place] Urine Protein Urine Glucose (UA) Urine Ketones Urine Blood Urine Nitrite Urine Bilirubin Urine Urobilinogen Ur Leukocyte Esterase Urine WBC (Auto) Urine RBC (Auto) U Hyaline Cast (Auto) U Epithel Cells (Auto) Urine Bacteria (Auto) Urine Mucus Blood Type Antibody Screen Crossmatch PG Care Time/CCT Total # of Minutes Spent Total Time Spent with Patient: Total time spent is greater than 50% in coordination of care (as documented) at patient's floor/unit and/or counseling patient: Coding Level of Care Code 67155 SUB INP/OBS CARE 3/50MIN Diagnoses Acute kidney injury superimposed on stage 4 chronic kidney disease N17.9; N18.4 Shock circulatory R57.9 Cirrhosis K74.60 Ischemia, bowel K55.9
[2024-05-02 09:16] LABS: Albumin Level 3.2 gm/dl (3.4-5.0); Bilirubin Direct 0.7 mg/dl (0-0.2); Bilirubin,Total 1.3 mg/dl (0.2-1.0); Total Protein 4.9 gm/dl (6.0-8.3)
[2024-05-02 09:26] LABS: Fibrinogen 124 mg/dl (184-400)
[2024-05-02 09:32] LABS: D Dimer 8000 ug/L FEU (0-500)
--- NOTE | 2024-05-02 09:34 | CT Scan Report ---
CT OF THE ABDOMEN AND PELVIS WITHOUT CONTRAST CLINICAL HISTORY: Bleeding ? COMPARISON STUDY: CT of the abdomen and pelvis April 27, 2024. KUB April 30, 2024. TECHNIQUE: Axial images of the abdomen and pelvis were obtained without IV contrast. Images were revi ewed in the axial, sagittal, and coronal planes. Automated exposure control was utilized for the kyle dy. A dose lowering technique was utilized adhering to the principles of ALARA. FINDINGS: Small bilateral pleural effusions are present. Subpleural opacities favor atelectasis. Ther e is evidence for mild pulmonary edema within the lower lungs. The heart is enlarged. Tip of nasogast michelle tube is within the distal body of the stomach. IVC filter is in place. There are postoperative fi ndings consistent with subtotal colectomy with right lower quadrant ileostomy. There is a small amoun t of hemorrhage within the subcutaneous tissues adjacent to the ileostomy. There also several small f oci of hemorrhage within the upper abdomen, within the operative bed. The largest is a 2.4 cm right u pper quadrant focus on image 171. A small amount of ascites is also present. No large hematoma is not ed. There is no biliary ductal dilatation status post cholecystectomy. The liver is cirrhotic. Varice s are present. Adrenal glands, kidneys and pancreas are unremarkable. The appearance of the spleen is unchanged. A Lynn balloon and gas within the bladder are present. There is no retroperitoneal hemat micheal. Rectal probe is in place. Body wall edema is noted. No pneumatosis, free air or portal venous ga s is present. There is trace gas within the abdominal wall which is postsurgical. A drain within the laparotomy site is present. IMPRESSION: 1. Status post subtotal colectomy with right lower quadrant ileostomy. Multiple small hyperdense foci within the operative bed consistent with a small amount of hemorrhage. No large hematoma. 2. Cirrhotic liver. Small amount of ascites. Small bilateral pleural effusions. Body wall edema. 3. No pneumatosis, free air or portal venous gas. 4. No hydronephrosis. ACT 112: Negative or not required by law. Electronically signed by: Eris Friedman M.D. 05/02/2024 9:32 AM
[2024-05-02 10:12] LABS: INR 1.5 (0.9-1.1); Partial Thromboplastin Ratio 1.5; Partial Thromboplastin Time 40 Seconds (21-31); Prothrombin Time 15.4 Seconds (9.0-12.0)
--- NOTE | 2024-05-02 11:22 | Surgery Progress Note ---
Date of Service May 02, 2024 Assessment & Plan (1) Ischemia, bowel: Plan: status post subtotal colectomy with end ileostomy on 04/27 she remains in critical condition, ventilated in the ICU WBC 6.7, Hbg to 6.5 and platelets 43. Cr 3.[address] a/p for anemia today that showed no large hematoma, small area of hemorrhage. no acute surgical issues She is receiving pRBC currently d/c'd jaxson drain on enteral feeds continue current ICU care dr yan seen/examined patient this AM Admission and Anticipated Discharge Date Admission Date: April 27, 2024 Supervising Physician Co-Signing Physician Notes spoke with pt's power of consumer attorney today and discussed her present state Subjective Patient ventilated, unable to give history. Opens eyes Physical Exam Physical Exam: mechanically ventilated, opening eyes some Gastrointestinal (Abdomen): Percussion/Palpation: abdomen soft midline incision, jaxson drain removed. CRIS drain site with ostomy appliance overtop to collect ascitic drainage. ileostomy w/ + liquid stool Results & Data Vital Signs (Past 12 Hours) Vital Signs Temp Pulse Resp BP Pulse Ox FiO2 05/02/24 10:43 97.7 F 79 16 126/51 L 98 05/02/24 10:40 97.9 F 82 18 133/54 L 95 05/02/24 10:28 97.9 F 83 18 130/53 L 95 05/02/24 10:10 97.9 F 98 H 18 160/68 H 99 05/02/24 09:39 97.9 F 88 17 98 05/02/24 08:09 98.4 F 85 17 147/81 H 97 05/02/24 08:06 97.9 F 78 15 98 05/02/24 08:00 147/81 H 05/02/24 08:00 28 05/02/24 08:00 88 05/02/24 08:00 76 05/02/24 07:48 97.9 F 88 15 98 05/02/24 07:27 84 16 96 28 05/02/24 07:12 97.9 F 75 16 98 05/02/24 07:09 98.4 F 76 18 137/61 98 05/02/24 07:00 137/61 05/02/24 06:57 97.9 F 74 18 99 05/02/24 06:39 97.9 F 74 18 136/53 L 98 05/02/24 06:24 97.9 F 78 18 137/55 L 95 05/02/24 06:18 97.9 F 75 18 97 05/02/24 06:09 97.9 F 76 19 94 05/02/24 06:04 97.9 F 76 17 130/51 L 95 05/02/24 05:51 97.9 F 75 16 98 05/02/24 05:30 97.9 F 74 19 98 05/02/24 05:18 97.9 F 76 16 98 05/02/24 05:03 97.9 F 79 16 97 05/02/24 05:00 126/65 05/02/24 05:00 126/65 05/02/24 05:00 126/65 05/02/24 04:54 97.9 F 75 16 98 05/02/24 04:30 97.7 F 81 25 H 96 05/02/24 04:15 97.7 F 79 19 97 05/02/24 04:00 125/66 05/02/24 04:00 125/66 05/02/24 04:00 97.7 F 79 18 98 05/02/24 04:00 28 05/02/24 04:00 76 139/52 L 05/02/24 03:30 97.7 F 73 18 99 05/02/24 03:15 97.7 F 76 16 98 05/02/24 03:00 132/61 05/02/24 03:00 97.7 F 75 16 99 05/02/24 02:30 97.5 F L 76 18 100 05/02/24 02:22 76 18 99 28 05/02/24 02:00 97.5 F L 75 16 98 05/02/24 02:00 133/66 05/02/24 02:00 133/66 05/02/24 02:00 133/66 05/02/24 01:45 97.5 F L 77 16 99 05/02/24 01:24 97.5 F L 80 19 98 05/02/24 01:00 133/69 05/02/24 01:00 97.5 F L 81 19 98 05/02/24 00:48 97.5 F L 78 14 99 05/02/24 00:36 97.5 F L 78 14 98 05/02/24 00:15 97.3 F L 80 15 95 05/02/24 00:00 128/63 05/02/24 00:00 97.3 F L 79 15 98 05/02/24 00:00 28 05/02/24 00:00 78 130/51 L 05/01/24 23:45 97.3 F L 78 14 99 05/01/24 23:39 97.3 F L 76 15 99 PG Care Time/CCT Total # of Minutes Spent Total Time Spent with Patient: Total time spent is greater than 50% in coordination of care (as documented) at patient's floor/unit and/or counseling patient: Coding Level of Care Code 40892 Post Operative Follow-Up Diagnoses Ischemia, bowel K55.9
--- NOTE | 2024-05-02 14:00 | Pharmacy Report ---
Pharmacy Glycemic Short Note 2 - Date of Service May 02, 2024 - Glycemic Short BSG Results (Last 24 hours): 05/01/24 05/01/24 05/01/24 15:30 16:50 17:44 Glucose POC Glucose POC Glucose (other) 130 H 149 H 153 H 05/01/24 05/01/24 05/01/24 18:45 20:37 22:39 Glucose POC Glucose POC Glucose (other) 162 H 166 H 162 H 05/02/24 05/02/24 05/02/24 01:04 03:41 04:00 Glucose 170 H POC Glucose POC Glucose (other) 161 H 160 H 05/02/24 05/02/24 05/02/24 05:51 08:07 10:19 Glucose POC Glucose POC Glucose (other) 166 H 176 H 167 H 05/02/24 05/02/24 12:05 13:02 Glucose POC Glucose 183 H 187 H POC Glucose (other) OUTPATIENT ANTIDIABETIC REGIMEN: * Lantus 7 units SC AM * Novolog 5 units SC BID with meals * HbA1c = 8.2% on 02/17/24 ASSESSMENT: 05/02: * Day #4 of insulin drip. Currently running at 2 units/hr. Most recent BSG was 187 mg/dL. * Remains intubated and sedated. Hydrocortisone IV is being tapered, on day #2 of 50 mg q8h. Continues on Zosyn. Norepinephrine is off and only running vasopressin. Peptamen 1.5 sammy is running at trickle rate (10 mL/hr). Urine output has improved today. * Plan to continue drip until patient is off all pressors. 04/29: * Rosalind received 11 units of insulin yesterday, all bolus. BSGs were: [phone] mg/dL. * Fasting BSG this AM was 238 mg/dL, above goal. Remains on Levophed and Vasopressin. Due to significant acidosis, patient was started on Bicarb drip mixed in Sterile Water. Remains NPO. Started on Hydrocortisone IV as well (100 mg x 1 then 50 mg q6h). * Due to pressor requirements as well as addition of steroids, will transition patient from subcutaneous insulin to an IV insulin drip. Per supervisor instrument mechanics, this drip will be based on hyperglycemia protocol; however, if urine ketones return positive, then will transition drip to DKA protocol. No bolus required. 04/28: * 78 y/o F admitted for ischemic bowel s/p resection on 04/27. Patient has history of Type 2 diabetes on low doses of basal and bolus insulins at home. * Also with history of CKD stage 3. * Post op yesterday patient needed pressure support. Currently intubated and on vasopressors. Pharmacy glycemic consult initiated due to higher blood sugars. * Novolog was started yesterday with stress of 1 parameters and goal range of 140-180 mg/dl. Blood sugars currently being checked q4h and reasonably stable around 200 mg/dl. PLAN FOR INPATIENT GLYCEMIC CONTROL: * IV insulin drip for hyperglycemia * Stress level: HIGH * Goal range: 110 - 180 mg/dL * Current rate: 2 units/hr * * * * * * *
[2024-05-02 15:14] LABS: Basophils # (auto) 0.01 K/uL (0.00-0.20); Basophils % (auto) 0.1 %; Hematocrit (blood only) 24.5 % (37.0-47.0); Hemoglobin 8.6 g/dl (12.0-16.0); Immature Granulocytes # (auto) 0.15 K/uL (0.01-0.20); Immature Granulocytes % (auto) 1.7 %; Lymphocytes # (auto) 0.46 K/uL (1.20-3.40); Lymphocytes % (auto) 5.2 %; Mean Corpuscular Hgb Conc 35.1 g/dL (32.0-36.0); Mean Corpuscular Volume 82.5 fL (80.0-100.0); Mean Platelet Volume 11.7 fL (9.4-12.4); Monocytes # (auto) 0.49 K/uL (0.11-0.59); Monocytes % (auto) 5.5 %; Neutrophils % (auto) 87.5 %; Nucleated RBC # (auto) 0.03 K/uL (0.00-0.12); Nucleated RBC % (auto) 0.3 %; Platelet Count 52 K/uL (130-400); RDW Coefficient of Variation 17.1 % (11.5-14.5); RDW Standard Deviation 49.8 fL (36.4-46.3); Red Blood Count 2.97 M/uL (4.20-5.40); White Blood Count 8.91 K/ul (4.8-10.8)
--- NOTE | 2024-05-02 15:51 | Billing Data ---
Date of Service May 02, 2024 Coding Level of Care Code 88671 CRITICAL CARE
--- NOTE | 2024-05-02 20:37 | Hospitalist Progress Note ---
Date of Service May 02, 2024 Assessment & Plan (1) Ischemia, bowel: Plan: Presented with abdominal pain and diffuse colonic pneumatosis seen on CT scan, and Severe sepsis with septic shock, POA. Appreciate general surgery consultation and recommendations. She underwent total colectomy with ileostomy formation on April 27. She remains in the ICU postoperatively on ventilator support but now weaned off of levophed and vasopressin; weaning down off of IV hydrocortisone, continues on IV albumin, octreotide, midodrine for hepatorenal syndrome With improving metabolic acidosis from lactic acidosis and improving EMY secondary to ATN from hypotension/septic shock, urine output picking up Continue to wean off of IV hydrocortisone for relative adrenal insufficiency with random cortisol 18 Continue IV albumin for blood pressure support, has significant ascites coming from CRIS drain/cirrhosis [place] drain removed Continue trophic tube feeds started 04/30 Continue Zosyn x 7 day course Appreciate portfolio specialist and Surgery management-prognosis poor/guarded Follow CBC, CMP, mag, phos and replace electrolytes as needed (2) Acute kidney injury superimposed on stage 3b chronic kidney disease: Plan: Creatinine stable today at 3.2 and urine output is picking up,, with improved metabolic acidosis. Baseline creatinine 1.8-2.2 Hyponatremia also improving with diuresis UA with trace protein but no definite signs of infection, urine culture negative Continue blood pressure support as above With hepatorenal syndrome-consult to nephrology. Continue midodrine, octre otide, IV albumin Follow urine output, BMP Continues on bumex bid for hypervolemia Family has told nephrology that they would want a trial of hemodialysis as per patient's wishes-none needed at this time (3) Anemia: Plan: *Acute blood loss anemia With a history of anemia of chronic kidney disease as well as MGUS, EBL 500 mL from surgery, on Eliquis and given FFP preoperatively as well as a total of 3 unit PRBC Hemoglobin dropped again to 6.5 on 05/02-given another 2 units of PRBCs, FFP, and cryoprecipitate She does have some serosanguineous fluid from NG tube and in colostomy bag Hemoglobin down to margarita of 5.5 after surgery from baseline of 10.5, then back up to 8.5 after 2 unit PRBCs, now back down and stable from yesterday at 7.4 Monitor for further bleeding, follow CBC CT abdomen/pelvis on 05/02 does show some small areas of hemorrhage in the operative bed but no retroperitoneal hematoma Eliquis is on hold (4) Diabetes mellitus type 2 in obese: Plan: Remains On insulin drip Receiving trophic feeds (5) Cirrhosis: Plan: History of [place] cirrhosis and portal hypertension. Supportive care. Serial labs Holding home propranolol, rifaximin, spironolactone, lactulose, furosemide With ascites fluid coming from CRIS drain With hepatorenal syndrome as above With thrombocytopenia from cirrhosis (6) Chronic diastolic heart failure: Plan: Holding home diuretics but continuing on IV Bumex bid (7) HTN (hypertension): Plan: Oral antihypertensive medications are on hold. Currently requiring pressor support Also with moderate aortic stenosis (8) PAF (paroxysmal atrial fibrillation): Plan: Remains in normal sinus rhythm here Eliquis on hold for bleeding and recent surgery Propranolol on hold (9) Hypothyroidism: Plan: TSH normal in 07/2023 continue IV levothyroxine every 72 hours (10) Obesity: Plan: Morbidly obese. BMI 48.8 ROSALES-on ventilator Plan Yexhd-U-zeep, IJ central venous catheter, peripheral IV, Lynn catheter, CRIS drain DVT prophylaxis-SCDs GI prophylaxis-IV Protonix Disposition-continued stay in ICU, prognosis quite guarded Admission and Anticipated Discharge Date Admission Date: April 27, 2024 Subjective Patient remains sedated and mechanically ventilated. Hemoglobin dropped again, transfused 2 units of blood and was given FFP and cryoprecipitate by portfolio specialist. Is weaned off Levophed and vasopressin, hydrocortisone weaning down and blood pressures are becoming elevated. Urine output has picked up today Remains in normal sinus rhythm on telemetry Physical Exam Constitutional: + mechanically ventilated; no acute dist ress Respiratory: normal respiratory effort, lungs clear to auscultation symmetric chest movement Cardiovascular: Rate/Rhythm: regular rate and regular rhythm Heart Sounds: no murmur Extremities: + edema (Trace pitting edema) Gastrointestinal (Abdomen): Inspection/Auscultation: normal bowel sounds; + abdomen abnormal to inspection (Colostomy bag in place with small amount of serosanguineous fluid) Percussion/Palpation: abdomen soft Psychiatric: Orientation: + not alert Genitourinary: + abnormal external appearance (Lynn ca theter in place) Results & Data Results & Data Vital Signs (Past 12 Hours) Vital Signs Temp Pulse Resp BP Pulse Ox O2 Del Method FiO2 05/02/24 19:15 171/92 H 05/02/24 19:15 171/92 H 05/02/24 19:12 36.3 C L 75 23 97 05/02/24 19:00 36.3 C L 77 22 97 05/02/24 18:15 164/88 H 05/02/24 18:15 164/88 H 05/02/24 18:15 164/88 H 05/02/24 18:15 164/88 H 05/02/24 18:14 36.3 C L 75 19 155/72 H 96 05/02/24 18:06 36.3 C L 74 16 96 05/02/24 18:00 171/82 H 05/02/24 18:00 36.3 C L 74 25 H 96 Mechanical Vent 05/02/24 17:55 36.3 C L 75 18 160/83 H 97 05/02/24 17:45 160/83 H 05/02/24 17:45 36.4 C L 74 12 99 05/02/24 17:37 36.4 C L 73 18 158/79 H 98 05/02/24 17:18 36.4 C L 73 17 99 05/02/24 17:15 162/80 H 05/02/24 17:15 162/80 H 05/02/24 17:15 162/80 H 05/02/24 17:12 36.4 C L 74 20 99 05/02/24 17:00 159/78 H 05/02/24 17:00 36.4 C L 74 16 99 Mechanical Vent 28 05/02/24 16:45 156/77 H 05/02/24 16:30 36.4 C L 74 16 99 05/02/24 16:15 153/77 H 05/02/24 16:09 36.5 C 79 19 96 05/02/24 16:06 36.5 C 76 16 98 05/02/24 16:00 74 144/63 H 05/02/24 16:00 75 05/02/24 15:47 74 16 98 28 05/02/24 15:45 161/75 H 05/02/24 15:42 36.5 C 74 16 98 05/02/24 15:15 156/72 H 05/02/24 15:12 36.5 C 74 16 99 05/02/24 15:03 36.5 C 75 17 99 05/02/24 15:00 146/74 H 05/02/24 14:57 36.5 C 74 16 98 05/02/24 14:45 165/74 H 05/02/24 14:18 36.4 C L 75 16 98 05/02/24 14:15 149/76 H 05/02/24 14:12 36.4 C L 77 16 98 05/02/24 14:03 36.4 C L 78 15 96 05/02/24 13:45 156/80 H 05/02/24 13:42 36.4 C L 79 14 98 05/02/24 13:30 153/79 H 05/02/24 13:24 36.4 C L 82 17 96 05/02/24 13:15 155/77 H 05/02/24 13:12 36.4 C L 79 16 98 05/02/24 13:09 152/76 H 05/02/24 13:08 36.4 C L 81 14 152/76 H 97 05/02/24 12:13 36.4 C L 92 H 16 154/65 H 97 05/02/24 12:03 36.4 C L 100 H 15 97 05/02/24 12:00 28 05/02/24 12:00 92 H 154/65 H 05/02/24 12:00 36.6 C 100 H 97 H 106/71 05/02/24 11:19 80 19 95 28 05/02/24 11:13 36.4 C L 96 H 16 153/69 H 96 05/02/24 11:03 36.5 C 85 17 97 05/02/24 10:57 36.5 C 77 17 99 05/02/24 10:43 36.5 C 79 16 126/51 L 98 05/02/24 10:40 36.6 C 82 18 133/54 L 95 05/02/24 10:30 36.4 C L 107 H 17 93 05/02/24 10:28 36.6 C 83 18 130/53 L 95 05/02/24 10:15 36.6 C 103 H 20 98 05/02/24 10:11 172/89 H 05/02/24 10:10 36.6 C 98 H 18 160/68 H 99 05/02/24 10:09 36.6 C 97 H 23 99 05/02/24 10:03 36.6 C 84 17 99 05/02/24 09:39 36.6 C 88 17 98 Laboratory Results CBC, BMP, magnesium, urinalysis reviewed PG Care Time/CCT Total # of Minutes Spent Total Time Spent with Patient: Total time spent is greater than 50% in coordination of care (as documented) at patient's floor/unit and/or counseling patient: Coding Level of Care Code 90144 SUB INP/OBS CARE 2/35MIN Diagnoses Ischemia, bowel K55.9 Acute kidney injury superimposed on stage 3b chronic kidney disease N17.9; N18.32 Anemia D64.9 Anemia type: unspecified type Diabetes mellitus type 2 in obese E11.69; E66.9 Cirrhosis K74.60 Chronic diastolic heart failure I50.32 HTN (hypertension) I10 Hypertension type: unspecified PAF (paroxysmal atrial fibrillation) I48.0 Hypothyroidism E03.9 Obesity E66.9 (3) Anemia Anemia type: unspecified type Qualified Code(s): D64.9 - Anemia, unspecified (7) HTN (hypertension) Hypertension type: unspecified Qualified Code(s): I10 - Essential (primary) hypertension
[2024-05-03 04:19] LABS: Basophils # (auto) 0.01 K/uL (0.00-0.20); Basophils % (auto) 0.1 %; Hematocrit (blood only) 24.1 % (37.0-47.0); Hemoglobin 8.4 g/dl (12.0-16.0); Immature Granulocytes # (auto) 0.15 K/uL (0.01-0.20); Immature Granulocytes % (auto) 2.1 %; Lymphocytes # (auto) 0.41 K/uL (1.20-3.40); Lymphocytes % (auto) 5.7 %; Mean Corpuscular Hemoglobin 28.8 pg (25.0-34.0); Mean Corpuscular Hgb Conc 34.9 g/dL (32.0-36.0); Mean Corpuscular Volume 82.5 fL (80.0-100.0); Mean Platelet Volume 10.9 fL (9.4-12.4); Monocytes # (auto) 0.44 K/uL (0.11-0.59); Monocytes % (auto) 6.1 %; Neutrophils # (auto) 6.19 K/uL (1.40-6.50); Nucleated RBC # (auto) 0.03 K/uL (0.00-0.12); Nucleated RBC % (auto) 0.4 %; Platelet Count 50 K/uL (130-400); RDW Coefficient of Variation 17.7 % (11.5-14.5); RDW Standard Deviation 51.7 fL (36.4-46.3); Red Blood Count 2.92 M/uL (4.20-5.40)
[2024-05-03 04:24] LABS: Fibrinogen 134 mg/dl (184-400); INR 1.4 (0.9-1.1); Prothrombin Time 14.6 Seconds (9.0-12.0)
[2024-05-03 04:43] LABS: Albumin Globulin Ratio 2.6 (0.9-2); Albumin Level 4.1 gm/dl (3.4-5.0); BUN Creatinine Ratio 23.3 (10-20); Bilirubin,Total 1.6 mg/dl (0.2-1.0); Calcium 8.6 mg/dl (8.6-10.3); Creatinine Clr Calc Pharmacy 16.6 ml/min; Globulin 1.6 gm/dl (2.5-4.0); Potassium 3.2 mmol/L (3.5-5.1); Total Protein 5.7 gm/dl (6.0-8.3)
--- NOTE | 2024-05-03 07:21 | Critical Care Progress Note ---
Date of Service May 03, 2024 Assessment & Plan (1) Ischemia, bowel: (2) EMY (acute kidney injury): (3) Diabetes mellitus type 2 in obese: (4) HTN (hypertension): (5) Stage 3b chronic kidney disease: (6) Chronic diastolic heart failure: (7) Hypothyroidism: Plan Assessment: Pt is an 78 yo female with a past medical hx of CKD stage 3b (baseline Cr 1.7-1.9), HTN, MGUS, ROSALES, diastolic HF, aortic stenosis, cirrhosis secondary to [place], portal HTN, DMT2, hypothyroidism, hx meningioma, atrial fibrillation and hx DVT on eliquis who presents to the hospital on 04/27 for abdominal pain and bloody diarrhea found to have bowel ischemia, s/p bowel resection on 04/27. Critical care indication:Need for pressor support, mechanically ventilated post-operatively Plan: Neurologic Fentanyl turned off for SBT today, plan to extubate today If able to extubate, will do PT/OT/speech evals Cardiac Hypotension Multifactorial Pt now off vasopressors, midodrine held, BP now high 160-180s/70-90s overnight Hydrocortisone started 04/29/2024, will start to wean today Will start to wean albumin today HTN Aortic stenosis HFpEF with diastolic dysfunction last EF 50-55% on echo 11/2022 Home medications eliquis, furosemide, spironolactone, propranolol all held in the setting of hypotension, Respiratory Intubated and sedated. Vent settings minimal Gastrointestinal Bowel ischemia CT abd 04/27; extensive pneumatosis involving majority of colon and rectum, extraluminal gas, cirrhotic liver, trace ascites s/p bowel resection with ileostomy on 04/27 CT abd; small hemorrhage spots noted, no large collections Renal/electrolytes CKD stage 3b baseline Cr appears to be 1.7-1.9 EMY on CKD Monitor BUN/creatinine Avoid nephrotoxic medication Endocrine DMT2, insulin dependent last HA1c in January 2024; 8.2% Continue ISS per protocol Hypothyroidism Continue with levothyroxine IV Hematologic Chronic anemia MGUS baseline hgb appears to be 10-11 EBL noted to be ~500 mL from resection on 04/27 s/p 2 units blood 04/27 for hemoglobin drop 10.5 preop -> 5.5 postop, got 1 unit on 05/01, 2 units 05/02 (5 units total this admission) fibrinogen level wnl initially, low 10/10, improved somewhat today, got FFP and cryo yesterday, will do 2 units cryo again today as fibrinogen is still below normal Infectious disease Afebrile since admission on zosyn for empiric coverage given bowel ischemia and s/p bowel resection, will complete 7 days of antibiotics, to complete today Integumentary Some bruises noted on skin on admission, pt is on blood thinner at home Prophylaxis VTE: IPC given the history of bleeding GI: Pantoprazole Lines: Right IJ, Lynn Diet: Trophic feeds Admission and Anticipated Discharge Date Admission Date: April 27, 2024 Supervising Physician Co-Signing Physician Notes Dr Ayers was the resident-physician during care of patient. I separately evaluated patient for almanzar portions of the history and the exam. I was present during the critical portion of medical decision making, and I discussed the case with the resident. I generally agree with the findings and plan except for any additions/exceptions noted. Patient seen and examined at bedside. No acute distress, no adverse events overnight Patient was off sedation for at least 30 minutes prior to me examining her She was not on any vasopressors She was following commands Constitutional: No acute distress HEENT: PERRLA Respiratory system: Good air entry bilaterally, no wheeze, no rhonchi, mild crackles bilateral lower lobes CVS: S1-S2 positive, positive 3 out of 6 systolic murmur appreciated best at aorta Abdomen: Soft, nontender, nondistended, positive bowel sounds x4, positive colostomy, incision site and dionne clean Extremities: +1 pulses bilaterally radialis/ dorsalis pedis, no cyanosis, +1 pitting edema bilateral lower extremity Neuro: RASS -1, following commands Psych: Normal mood and affect G/U: Positive Lynn --Prophylaxis VTE: IPC given the history of bleeding GI: Pantoprazole Lines: Right IJ, Lynn Diet: Continue with trophic feeds Plan: In/out: +83, urine output 1400 mL Complete the course of antibiotics for total of 7 days Fibrinogen is on the lower side still, will give another 2 units of cryo Continue with 50 g of albumin on a daily basis along with Bumex Continue with octreotide Midodrine will be discontinued given the MAP being in the 100 Taper hydrocortisone off Trial of extubation today to BiPAP Patient's family was at bedside was updated regarding the plan I have personally spent 39 minutes of critical care time in the direct management of this patient. This is a life/limb threatening event. This includes time spent evaluating patient, direct bedside care, chart review, placing orders, interpretation of diagnostic studies, discussion with consultants, patient, and family members, as well as other required patient management activities. This time is exclusive of all separately billable procedures, and teaching time and separate from and in addition to any other critical care service time. Please note the above document was generated using voice recognition software. It may contain grammatical, syntax or spelling errors. Subjective Today, pt is still intubated. She does arouse to verbal stimuli and can follow some commands. Opens her eyes to voice. Review of Systems Review of Systems: Unobtainable due to endotracheal tube Physical Exam Physical Exam: General: Intubated, no acute distress apparent, opens eyes to voice and follows some commands Resp: Intubated and on ventilator, lungs clear to auscultation today Cardio: Regular rhythm, rate in the 70s, upper and lower extremity edema noted GI: Ileostomy in place with dark green stool in bag, urostomy on L side of abdomen with bloody urine noted Skin: Dry, pale appearing but warm Skin: no rashes, warm and dry Lymphatic: no cervical or axillary lymphadenopathy Results & Data Results & Data Vital Signs (Past 12 Hours) Vital Signs Temp Pulse Resp BP Pulse Ox O2 Del Method FiO2 05/03/24 05:03 36.2 C L 78 16 95 05/03/24 05:01 182/93 H 05/03/24 05:01 182/93 H 05/03/24 04:51 36.3 C L 90 16 87 L 05/03/24 04:30 170/87 H 05/03/24 04:30 170/87 H 05/03/24 04:30 36.3 C L 77 13 97 05/03/24 04:24 36.3 C L 76 20 96 05/03/24 04:03 36.3 C L 77 17 95 05/03/24 04:01 161/88 H 05/03/24 04:00 78 05/03/24 04:00 28 05/03/24 03:54 36.3 C L 73 21 97 05/03/24 03:45 36.3 C L 74 27 H 98 05/03/24 03:42 36.3 C L 74 16 97 05/03/24 03:31 161/81 H 05/03/24 03:31 161/81 H 05/03/24 03:18 36.3 C L 80 23 97 05/03/24 03:00 164/79 H 05/03/24 03:00 164/79 H 05/03/24 03:00 36.3 C L 79 22 97 05/03/24 02:48 36.3 C L 79 20 100 05/03/24 02:33 36.3 C L 78 18 98 05/03/24 02:32 84 20 97 28 05/03/24 02:31 164/84 H 05/03/24 02:31 164/84 H 05/03/24 02:24 36.3 C L 79 22 98 05/03/24 02:01 156/75 H 05/03/24 02:01 156/75 H 05/03/24 02:00 36.3 C L 76 21 96 05/03/24 01:45 36.3 C L 77 20 96 05/03/24 01:30 164/80 H 05/03/24 01:30 164/80 H 05/03/24 01:27 36.3 C L 78 18 97 05/03/24 01:15 36.3 C L 76 19 97 05/03/24 01:06 36.3 C L 73 17 96 05/03/24 00:51 36.3 C L 72 14 97 05/03/24 00:30 36.3 C L 72 18 97 05/03/24 00:21 36.3 C L 76 17 96 05/03/24 00:01 159/75 H 05/03/24 00:00 36.3 C L 74 16 95 05/03/24 00:00 73 05/03/24 00:00 78 05/03/24 00:00 28 05/02/24 23:54 36.3 C L 72 16 96 05/02/24 23:42 36.3 C L 73 16 96 05/02/24 23:31 161/83 H 05/02/24 23:31 161/83 H 05/02/24 23:12 36.3 C L 72 17 96 05/02/24 23:03 36.3 C L 72 15 97 05/02/24 23:00 161/82 H 05/02/24 23:00 161/82 H 05/02/24 23:00 161/82 H 05/02/24 22:48 36.3 C L 72 19 97 05/02/24 22:45 36.3 C L 72 19 96 05/02/24 22:33 36.4 C L 73 21 95 05/02/24 22:12 73 18 96 28 05/02/24 21:08 76 05/02/24 20:51 36.4 C L 73 18 96 05/02/24 20:33 36.4 C L 75 14 96 05/02/24 20:30 148/79 H 05/02/24 20:30 148/79 H 05/02/24 20:30 148/79 H 05/02/24 20:21 36.4 C L 78 16 97 05/02/24 20:19 155/83 H 05/02/24 20:19 155/83 H 05/02/24 20:18 36.4 C L 84 22 96 05/02/24 20:16 181/90 H 05/02/24 20:12 36.4 C L 78 20 97 05/02/24 20:02 184/82 H 05/02/24 20:02 184/82 H 05/02/24 20:00 180/93 H 05/02/24 20:00 Mechanical Vent 05/02/24 20:00 68 05/02/24 20:00 28 05/02/24 19:52 77 18 98 28 05/02/24 19:48 36.4 C L 76 19 98 05/02/24 19:45 178/98 H 05/02/24 19:45 178/98 H 05/02/24 19:42 36.4 C L 76 17 97 05/02/24 19:30 172/88 H 05/02/24 19:30 36.4 C L 76 16 97 05/02/24 19:27 36.3 C L 75 17 97 Resident Activity Tracking Resident Involvement: Resident Care Provided Care Provided: Adult Hospital Medicine (4) HTN (hypertension) Hypertension type: unspecified Qualified Code(s): I10 - Essential (primary) hypertension
--- NOTE | 2024-05-03 08:33 | Surgery Progress Note ---
Date of Service May 03, 2024 Assessment & Plan (1) Ischemic bowel disease: Plan: status post subtotal colectomy with end ileostomy on 04/27 she remains ventilated in the ICU d/c'd [place]ax[place] drain yesterday, removed drsg, dionne midline no s/s of infection noted, upper and lower aspects of wound packed lightly with dry gauze, covered with abd pad and medipore continue daily drsg changes ileostomy + stool output post CRIS drain site has bag attached to collect ascites fluid Admission and Anticipated Discharge Date Admission Date: April 27, 2024 Subjective pt remains intubated in ICU Physical Exam Constitutional: + mechanically ventilated Gastrointestinal (Abdomen): Inspection/Auscultation: + significant pannus and + abdominal surgical incision Results & Data Vital Signs (Past 12 Hours) Vital Signs Temp Pulse Resp BP Pulse Ox FiO2 05/03/24 07:31 73 19 96 28 05/03/24 05:03 97.2 F L 78 16 95 05/03/24 05:01 182/93 H 05/03/24 05:01 182/93 H 05/03/24 04:51 97.3 F L 90 16 87 L 05/03/24 04:30 170/87 H 05/03/24 04:30 170/87 H 05/03/24 04:30 97.3 F L 77 13 97 05/03/24 04:24 97.3 F L 76 20 96 05/03/24 04:03 97.3 F L 77 17 95 05/03/24 04:01 161/88 H 05/03/24 04:00 78 05/03/24 04:00 28 05/03/24 03:54 97.3 F L 73 21 97 05/03/24 03:45 97.3 F L 74 27 H 98 05/03/24 03:42 97.3 F L 74 16 97 05/03/24 03:31 161/81 H 05/03/24 03:31 161/81 H 05/03/24 03:18 97.3 F L 80 23 97 05/03/24 03:00 164/79 H 05/03/24 03:00 164/79 H 05/03/24 03:00 97.3 F L 79 22 97 05/03/24 02:48 97.3 F L 79 20 100 05/03/24 02:33 97.3 F L 78 18 98 05/03/24 02:32 84 20 97 28 05/03/24 02:31 164/84 H 05/03/24 02:31 164/84 H 05/03/24 02:24 97.3 F L 79 22 98 05/03/24 02:01 156/75 H 05/03/24 02:01 156/75 H 05/03/24 02:00 97.3 F L 76 21 96 05/03/24 01:45 97.3 F L 77 20 96 05/03/24 01:30 164/80 H 05/03/24 01:30 164/80 H 05/03/24 01:27 97.3 F L 78 18 97 05/03/24 01:15 97.3 F L 76 19 97 05/03/24 01:06 97.3 F L 73 17 96 05/03/24 00:51 97.3 F L 72 14 97 05/03/24 00:30 97.3 F L 72 18 97 05/03/24 00:21 97.3 F L 76 17 96 05/03/24 00:01 159/75 H 05/03/24 00:00 97.3 F L 74 16 95 05/03/24 00:00 73 05/03/24 00:00 78 05/03/24 00:00 28 05/02/24 23:54 97.3 F L 72 16 96 05/02/24 23:42 97.3 F L 73 16 96 05/02/24 23:31 161/83 H 05/02/24 23:31 161/83 H 05/02/24 23:12 97.3 F L 72 17 96 05/02/24 23:03 97.3 F L 72 15 97 05/02/24 23:00 161/82 H 05/02/24 23:00 161/82 H 05/02/24 23:00 161/82 H 05/02/24 22:48 97.3 F L 72 19 97 05/02/24 22:45 97.3 F L 72 19 96 05/02/24 22:33 97.5 F L 73 21 95 05/02/24 22:12 73 18 96 28 05/02/24 21:08 76 05/02/24 20:51 97.5 F L 73 18 96 05/02/24 20:33 97.5 F L 75 14 96 05/02/24 20:30 148/79 H 05/02/24 20:30 148/79 H 05/02/24 20:30 148/79 H PG Care Time/CCT Total # of Minutes Spent Total Time Spent with Patient: Total time spent is greater than 50% in coordination of care (as documented) at patient's floor/unit and/or counseling patient: Coding Level of Care Code 39601 Post Operative Follow-Up Diagnoses Ischemic bowel disease K55.9
--- NOTE | 2024-05-03 08:42 | Nephrology Progress Note ---
Date of Service May 03, 2024 Assessment & Plan (1) Acute kidney injury superimposed on stage 4 chronic kidney disease: Plan: * EMY on CKD likely due to ATN related to inflammation, septic shock * Patient may have an element of hepatorenal syndrome since liver is cirrhotic on CT and surgery reports draining a large volume of ascitic fluid * Kidney function remains stable. Volume status and oxygenation are acceptable. Patient is now non-oliguric. No acute indication for HD today * BP elevated off IV pressor support. Recommend tapering midodrine maintaining SBP ~ 100 mm Hg * Serum albumin 4.0. Recommend stopping IV albumin infusion * Once creatinine clearly trending down, consider d/c octreotide * Monitor BMP, LFT, UO (2) CKD (chronic kidney disease): Plan: * CKD stage G4 (advanced impairment). Baseline Cr 1.5-1.8 w/ EGFR 25 cc/min. Renal impairment has been attributed to recurrent hospitalization w/ EMY due to dehydration (3) Shock circulatory: Plan: * Resolved * Patient is on IV hydrocortisone (4) Cirrhosis: Plan: * Consider tapering midodrine, stop albumin as outlined above * Stop octreotide once creatinine is clearly trending down (5) Ischemia, bowel: Plan: * s/p exploratory laparotomy w/ colectomy and ileostomy 04/27/24 * Recurrent anemia * Monitor H&H Admission and Anticipated Discharge Date Admission Date: April 27, 2024 Subjective Ms. Dudley was evaluated in the ICU this morning. Her niece/POA Rosalind Joel was present at bedside. Sedation has been stopped and patient is undergoing weaning trials from the ventilator. IV pressor support has been discontinued but patient remains on midodrine via feeding tube Review of Systems Review of Systems: Unobtainable due to endotracheal tube Physical Exam Constitutional: + ill appearing Eyes: PERRL, conjunctivae normal, anicteric sclerae Neck: trachea midline, no thyromegaly Cardiovascular: RRR, no murmur, no edema Gastrointestinal (Abdomen): Hypoactive BS. Ileostomy w/ liquid brown stool Neurologic: spontaneous movement of arms Results & Data Vital Signs (Past 12 Hours) Vital Signs Temp Pulse Resp BP Pulse Ox FiO2 05/03/24 07:31 73 19 96 28 05/03/24 05:03 36.2 C L 78 16 95 05/03/24 05:01 182/93 H 05/03/24 05:01 182/93 H 05/03/24 04:51 36.3 C L 90 16 87 L 05/03/24 04:30 170/87 H 05/03/24 04:30 170/87 H 05/03/24 04:30 36.3 C L 77 13 97 05/03/24 04:24 36.3 C L 76 20 96 05/03/24 04:03 36.3 C L 77 17 95 05/03/24 04:01 161/88 H 05/03/24 04:00 78 05/03/24 04:00 28 05/03/24 03:54 36.3 C L 73 21 97 05/03/24 03:45 36.3 C L 74 27 H 98 05/03/24 03:42 36.3 C L 74 16 97 05/03/24 03:31 161/81 H 05/03/24 03:31 161/81 H 05/03/24 03:18 36.3 C L 80 23 97 05/03/24 03:00 164/79 H 05/03/24 03:00 164/79 H 05/03/24 03:00 36.3 C L 79 22 97 05/03/24 02:48 36.3 C L 79 20 100 05/03/24 02:33 36.3 C L 78 18 98 05/03/24 02:32 84 20 97 05/03/24 02:31 164/84 H 05/03/24 02:31 164/84 H 05/03/24 02:24 36.3 C L 79 22 98 05/03/24 02:01 156/75 H 05/03/24 02:01 156/75 H 05/03/24 02:00 36.3 C L 76 21 96 05/03/24 01:45 36.3 C L 77 20 96 05/03/24 01:30 164/80 H 05/03/24 01:30 164/80 H 05/03/24 01:27 36.3 C L 78 18 97 05/03/24 01:15 36.3 C L 76 19 97 05/03/24 01:06 36.3 C L 73 17 96 05/03/24 00:51 36.3 C L 72 14 97 05/03/24 00:30 36.3 C L 72 18 97 05/03/24 00:21 36.3 C L 76 17 96 05/03/24 00:01 159/75 H 05/03/24 00:00 36.3 C L 74 16 95 05/03/24 00:00 73 05/03/24 00:00 78 05/03/24 00:00 28 05/02/24 23:54 36.3 C L 72 16 96 05/02/24 23:42 36.3 C L 73 16 96 05/02/24 23:31 161/83 H 05/02/24 23:31 161/83 H 05/02/24 23:12 36.3 C L 72 17 96 05/02/24 23:03 36.3 C L 72 15 97 05/02/24 23:00 161/82 H 05/02/24 23:00 161/82 H 05/02/24 23:00 161/82 H 05/02/24 22:48 36.3 C L 72 19 97 05/02/24 22:45 36.3 C L 72 19 96 05/02/24 22:33 36.4 C L 73 21 95 05/02/24 22:12 73 18 96 28 05/02/24 21:08 76 05/02/24 20:51 36.4 C L 73 18 96 Laboratory Results Laboratory Results - last 24 hr 05/01/24 05/02/24 05/02/24 09:37 08:33 10:19 WBC RBC Hgb Hct MCV MCH MCHC RDW Std Deviation RDW Coeff of Leah Plt Count MPV Immature Gran % (Auto) Neut % (Auto) Lymph % (Auto) Coke % (Auto) Eos % (Auto) Baso % (Auto) Neut # (Auto) Lymph # (Auto) Coke # (Auto) Eos # (Auto) Baso # (Auto) Immature Gran # (Auto) Absolute Nucleated RBC Nucleated RBC % (auto) PT 15.4 H INR 1.5 H APTT 40 H PTT Ratio 1.5 Fibrinogen 124 L D-Dimer 8000 H* Factor VIII Activity Pending Sodium Potassium Chloride Carbon Dioxide Anion Gap BUN Creatinine Est Cr Clr Drug Dosing eGFR BUN/Creatinine Ratio Glucose POC Glucose POC Glucose (other) 167 H Calcium Total Bilirubin 1.3 H Direct Bilirubin 0.7 H AST 18 ALT 9 Alkaline Phosphatase 67 Lactate Dehydrogenase 158 Total Protein 4.9 L Albumin 3.2 L Globulin Albumin/Globulin Ratio Blood Type A Negative Antibody Screen NEGATIVE Crossmatch See Detail 05/02/24 05/02/24 05/02/24 12:05 13:02 14:02 WBC RBC Hgb Hct MCV MCH MCHC RDW Std Deviation RDW Coeff of Leah Plt Count MPV Immature Gran % (Auto) Neut % (Auto) Lymph % (Auto) Coke % (Auto) Eos % (Auto) Baso % (Auto) Neut # (Auto) Lymph # (Auto) Coke # (Auto) Eos # (Auto) Baso # (Auto) Immature Gran # (Auto) Absolute Nucleated RBC Nucleated RBC % (auto) PT INR APTT PTT Ratio Fibrinogen D-Dimer Factor VIII Activity Sodium Potassium Chloride Carbon Dioxide Anion Gap BUN Creatinine Est Cr Clr Drug Dosing eGFR BUN/Creatinine Ratio Glucose POC Glucose 183 H 187 H 168 H POC Glucose (other) Calcium Total Bilirubin Direct Bilirubin AST ALT Alkaline Phosphatase Lactate Dehydrogenase Total Protein Albumin Globulin Albumin/Globulin Ratio Blood Type Antibody Screen Crossmatch 05/02/24 05/02/24 05/02/24 14:45 14:49 15:58 WBC 8.91 RBC 2.97 L Hgb 8.6 L Hct 24.5 L MCV 82.5 MCH 29.0 MCHC 35.1 RDW Std Deviation 49.8 H RDW Coeff of Leah 17.1 H Plt Count 52 L MPV 11.7 Immature Gran % (Auto) 1.7 Neut % (Auto) 87.5 Lymph % (Auto) 5.2 Coke % (Auto) 5.5 Eos % (Auto) 0.0 Baso % (Auto) 0.1 Neut # (Auto) 7.80 H Lymph # (Auto) 0.46 L Coke # (Auto) 0.49 Eos # (Auto) 0.00 Baso # (Auto) 0.01 Immature Gran # (Auto) 0.15 Absolute Nucleated RBC 0.03 Nucleated RBC % (auto) 0.3 PT INR APTT PTT Ratio Fibrinogen D-Dimer Factor VIII Activity Sodium Potassium Chloride Carbon Dioxide Anion Gap BUN Creatinine Est Cr Clr Drug Dosing eGFR BUN/Creatinine Ratio Glucose POC Glucose 178 H 176 H POC Glucose (other) Calcium Total Bilirubin Direct Bilirubin AST ALT Alkaline Phosphatase Lactate Dehydrogenase Total Protein Albumin Globulin Albumin/Globulin Ratio Blood Type Antibody Screen Crossmatch 05/02/24 05/02/24 05/02/24 17:58 20:03 23:22 WBC RBC Hgb Hct MCV MCH MCHC RDW Std Deviation RDW Coeff of Leah Plt Count MPV Immature Gran % (Auto) Neut % (Auto) Lymph % (Auto) Coke % (Auto) Eos % (Auto) Baso % (Auto) Neut # (Auto) Lymph # (Auto) Coke # (Auto) Eos # (Auto) Baso # (Auto) Immature Gran # (Auto) Absolute Nucleated RBC Nucleated RBC % (auto) PT INR APTT PTT Ratio Fibrinogen D-Dimer Factor VIII Activity Sodium Potassium Chloride Carbon Dioxide Anion Gap BUN Creatinine Est Cr Clr Drug Dosing eGFR BUN/Creatinine Ratio Glucose POC Glucose 155 H 162 H 147 H POC Glucose (other) Calcium Total Bilirubin Direct Bilirubin AST ALT Alkaline Phosphatase Lactate Dehydrogenase Total Protein Albumin Globulin Albumin/Globulin Ratio Blood Type Antibody Screen Crossmatch 05/03/24 05/03/24 05/03/24 01:36 03:21 03:58 WBC 7.20 RBC 2.92 L Hgb 8.4 L Hct 24.1 L MCV 82.5 MCH 28.8 MCHC 34.9 RDW Std Deviation 51.7 H RDW Coeff of Leah 17.7 H Plt Count 50 L MPV 10.9 Immature Gran % (Auto) 2.1 Neut % (Auto) 86.0 Lymph % (Auto) 5.7 Coke % (Auto) 6.1 Eos % (Auto) 0.0 Baso % (Auto) 0.1 Neut # (Auto) 6.19 Lymph # (Auto) 0.41 L Coke # (Auto) 0.44 Eos # (Auto) 0.00 Baso # (Auto) 0.01 Immature Gran # (Auto) 0.15 Absolute Nucleated RBC 0.03 Nucleated RBC % (auto) 0.4 PT 14.6 H INR 1.4 H APTT PTT Ratio Fibrinogen 134 L D-Dimer Factor VIII Activity Sodium 136 Potassium 3.2 L Chloride 100 Carbon Dioxide 21 Anion Gap 15 H BUN 74 H Creatinine 3.18 H Est Cr Clr Drug Dosing 16.6 eGFR 14.21 BUN/Creatinine Ratio 23.3 H Glucose 131 H POC Glucose 160 H 125 H POC Glucose (other) Calcium 8.6 Total Bilirubin 1.6 H Direct Bilirubin AST 19 ALT 9 Alkaline Phosphatase 58 Lactate Dehydrogenase Total Protein 5.7 L Albumin 4.1 Globulin 1.6 L Albumin/Globulin Ratio 2.6 H Blood Type Antibody Screen Crossmatch 05/03/24 05/03/24 05:09 07:25 WBC RBC Hgb Hct MCV MCH MCHC RDW Std Deviation RDW Coeff of Leah Plt Count MPV Immature Gran % (Auto) Neut % (Auto) Lymph % (Auto) Coke % (Auto) Eos % (Auto) Baso % (Auto) Neut # (Auto) Lymph # (Auto) Coke # (Auto) Eos # (Auto) Baso # (Auto) Immature Gran # (Auto) Absolute Nucleated RBC Nucleated RBC % (auto) PT INR APTT PTT Ratio Fibrinogen D-Dimer Factor VIII Activity Sodium Potassium Chloride Carbon Dioxide Anion Gap BUN Creatinine Est Cr Clr Drug Dosing eGFR BUN/Creatinine Ratio Glucose POC Glucose 133 H 145 H POC Glucose (other) Calcium Total Bilirubin Direct Bilirubin AST ALT Alkaline Phosphatase Lactate Dehydrogenase Total Protein Albumin Globulin Albumin/Globulin Ratio Blood Type Antibody Screen Crossmatch PG Care Time/CCT Total # of Minutes Spent Total Time Spent with Patient: Total time spent is greater than 50% in coordination of care (as documented) at patient's floor/unit and/or counseling patient: Coding Level of Care Code 90845 SUB INP/OBS CARE 3/50MIN Diagnoses Acute kidney injury superimposed on stage 4 chronic kidney disease N17.9; N18.4 CKD (chronic kidney disease) N18.9 Shock circulatory R57.9 Cirrhosis K74.60 Ischemia, bowel K55.9
[2024-05-03] MEDS: POTASSIUM CHLORIDE / WTR 20 MEQ/100 ML PLCT IV SCH (08:43)
[2024-05-03] MEDS: LANTUS PER UNIT CHARGE SC ONE (10:50)
[2024-05-03] MEDS: INSULIN ASPART PER UNIT CHARGE SC SCH (12:29)
--- NOTE | 2024-05-03 12:41 | Pharmacy Report ---
Pharmacy Glycemic Short Note 2 - Date of Service May 03, 2024 - Glycemic Short BSG Results (Last 24 hours): 05/02/24 05/02/24 05/02/24 13:02 14:02 14:49 Glucose POC Glucose 187 H 168 H 178 H 05/02/24 05/02/24 05/02/24 15:58 17:58 20:03 Glucose POC Glucose 176 H 155 H 162 H 05/02/24 05/03/24 05/03/24 23:22 01:36 03:21 Glucose POC Glucose 147 H 160 H 125 H 05/03/24 05/03/24 05/03/24 03:58 05:09 07:25 Glucose 131 H POC Glucose 133 H 145 H OUTPATIENT ANTIDIABETIC REGIMEN: * Lantus 7 units SC AM * Novolog 5 units SC BID with meals * HbA1c = 8.2% on 02/17/24 ASSESSMENT: 05/03: * BSGs within goal the last 24h. Drip stable at 2 unit/hr. * Extubated today (tube feeds off, awaiting swallow eval). Vasopressors weaned. Hydrocortisone taper initiated (50mg IV q12h X 2 days followed by 50mg daily X 2 days). * Plan for SQ transition per appian developer. Will begin Lantus 10 units SQ X 1 now and overlap with the drip ~ 2h prior to discontinuation. Plan for an HS lantus scale depending on BSG. Novolog q6 . 05/02: * Day #4 of insulin drip. Currently running at 2 units/hr. Most recent BSG was 187 mg/dL. * Remains intubated and sedated. Hydrocortisone IV is being tapered, on day #2 of 50 mg q8h. Continues on Zosyn. Norepinephrine is off and only running vasopressin. Peptamen 1.5 sammy is running at trickle rate (10 mL/hr). Urine output has improved today. * Plan to continue drip until patient is off all pressors. 04/29: * Rosalind received 11 units of insulin yesterday, all bolus. BSGs were: [phone] mg/dL. * Fasting BSG this AM was 238 mg/dL, above goal. Remains on Levophed and Vasopressin. Due to significant acidosis, patient was started on Bicarb drip mixed in Sterile Water. Remains NPO. Started on Hydrocortisone IV as well (100 mg x 1 then 50 mg q6h). * Due to pressor requirements as well as addition of steroids, will transition patient from subcutaneous insulin to an IV insulin drip. Per appian developer, this drip will be based on hyperglycemia protocol; however, if urine ketones return positive, then will transition drip to DKA protocol. No bolus required. 04/28: * 78 y/o F admitted for ischemic bowel s/p resection on 04/27. Patient has history of Type 2 diabetes on low doses of basal and bolus insulins at home. * Also with history of CKD stage 3. * Post op yesterday patient needed pressure support. Currently intubated and on vasopressors. Pharmacy glycemic consult initiated due to higher blood sugars. * Novolog was started yesterday with stress of 1 parameters and goal range of 140-180 mg/dl. Blood sugars currently being checked q4h and reasonably stable around 200 mg/dl. PLAN FOR INPATIENT GLYCEMIC CONTROL: * Basal insulin * Insulin drip --> continue per hyperglycemia protocol while overlapping with SQ * Lantus 10 units SQ X 1 + 0-10 units HS scale depending on BSG * Bolus insulin * NovoLog per scale q6h while NPO * Goal Range: Low 110 mg/dL - High 140 mg/dL * Correction Factor: 20 mg/dL/unit * Nutritional / Prandial insulin per carb ratio of 1 unit per 15 grams CHO consumed
--- NOTE | 2024-05-03 13:17 | Billing Data ---
Date of Service May 03, 2024 Coding Level of Care Code 80150 CRITICAL CARE
[2024-05-03] MEDS: HYDROCORTISONE SOD 50 MG in SYRINGE 0 ML IV SCH (16:00)
[2024-05-03] MEDS: ALBUMIN 25% 25 GM/100 ML VIAL IV SCH (17:20)
--- NOTE | 2024-05-03 18:07 | Hospitalist Progress Note ---
Date of Service May 03, 2024 Assessment & Plan (1) Ischemia, bowel: Plan: Presented with abdominal pain and diffuse colonic pneumatosis seen on CT scan, ischemic colitis and Severe sepsis with septic shock, POA. Appreciate general surgery consultation and recommendations. She underwent total colectomy with ileostomy formation on April 27. She remains in the ICU postoperatively -was on ventilator and pressor support x 5 days-now extubated 05/03 to NH and weaned off of levophed/vasopressin/midodrine Continue weaning down off of IV hydrocortisone, weaning down IV albumin; was on octreotide and midodrine for hepatorenal syndrome--> now stopped midodrine and Nephro recommends stopping octreotide once renal function improves Urine output is improving and with improving metabolic acidosis from lactic acidosis and improving EMY secondary to ATN from hypotension/septic shock Continue to wean off of IV hydrocortisone for relative adrenal insufficiency with random cortisol 18 Continue IV albumin for blood pressure support, has significant ascites coming from CRIS drain/cirrhosis Leroy drain removed, post-op care/management as per Surgery Pain control as needed Was on trophic tube feeds started 04/30, but now stopped after extubation 05/03---> needs Speech eval to see if can take po on 05/04 Continue Zosyn x 7 day course-will complete on 05/03 Appreciate insurance claim representative and Surgery management-prognosis guarded Follow CBC, CMP, mag, phos and replace electrolytes as needed-gave IV KCl today (2) Acute kidney injury superimposed on stage 3b chronic kidney disease: Plan: Creatinine peaked at 3.5 and now improved to 3.1, urine output is picking up, with improved metabolic acidosis. Baseline creatinine 1.8-2.2 Remains quite volume overloaded Hyponatremia now resolved UA with trace protein but no definite signs of infection, urine culture negative BPs now normalized and off pressors With hepatorenal syndrome-consult to nephrology appreciated. Stopped midodrine, weaning off IV albumin, and will continue octreotide until renal function clearly improving as per Nephro Follow urine output, BMP Continues on bumex bid for hypervolemia (3) Anemia: Plan: *Acute blood loss anemia With a history of anemia of chronic kidney disease as well as MGUS, EBL 500 mL from surgery, on Eliquis and given FFP preoperatively, 5 units PRBCs total post- op for hgb dropping to 5.5, and more FFP and cryoprecipitate on 05/02 She does have some serosanguineous fluid from NG tube and in colostomy bag, some black liquid in colostomy bag now Fibrinogen low--> giving more cryoprecipitate 05/03 Monitor for further bleeding, follow CBC CT abdomen/pelvis on 05/02 does show some small areas of hemorrhage in the operative bed but no retroperitoneal hematoma Eliquis is on hold (4) Diabetes mellitus type 2 in obese: Plan: Remains On insulin drip was on trophic feeds, now NPO and no feeds (5) Cirrhosis: Plan: History of Rothman cirrhosis and portal hypertension. Supportive care. Serial labs Holding home propranolol, rifaximin, spironolactone, lactulose, furosemide With ascites fluid coming from CRIS drain With hepatorenal syndrome as above With thrombocytopenia from cirrhosis and sepsis, TBili mildly elevated Follow CBC, CMP, INR (6) Chronic diastolic heart failure: Plan: Holding home diuretics but continuing on IV Bumex bid With acute on chronic HFpEF (7) HTN (hypertension): Plan: Oral antihypertensive medications are on hold. Now off pressor support Also with moderate aortic stenosis (8) PAF (paroxysmal atrial fibrillation): Plan: Remains in normal sinus rhythm here Eliquis on hold for bleeding and recent surgery Propranolol on hold (9) Hypothyroidism: Plan: TSH normal in 07/2023 continue IV levothyroxine every 72 hours until taking po (10) Obesity: Plan: Morbidly obese. BMI 48.8 ROSALES-on ventilator, now will need O2 or CPAP hs Plan [id number], IJ central venous catheter, peripheral IV, Lynn catheter, CRIS drain DVT prophylaxis-SCDs GI prophylaxis-IV Protonix Disposition-continued stay in ICU, prognosis guarded but somewhat improved. Family being updated daily by ICU team and specialists Admission and Anticipated Discharge Date Admission Date: April 27, 2024 Subjective Pt was extubated today and is now drowsy but wakes up and talks to me. Is somewhat difficult to understand with a hoarse voice. She says "I am alive." Denies pain. Tele with NSR, normal rates, some PVCs BPs are now elevated, weaning off hydrocortisone and albumin, off all pressors, and midodrine held since yesterday UOP has picked up Physical Exam Constitutional: + obese; no acute distress (awake but dr beckwith) ENMT: dry mucus membranes Respiratory: normal respiratory effort, lungs clear to auscultation symmetric chest movement Cardiovascular: Rate/Rhythm: regular rate and regular rhythm Heart Sounds: no murmur Extremities: + edema (Trace pitting edema) Gastrointestinal (Abdomen): Inspection/Auscultation: normal bowel sounds; + abdomen abnormal to inspection (Colostomy bag in place with moderate amount dark loose stool) Percussion/Palpation: abdomen soft dressing in place over midline incision c/d/i Psychiatric: Orientation: alert Genitourinary: + abnormal external appearance (Lynn ca theter in place) Results & Data Results & Data Vital Signs (Past 12 Hours) Vital Signs Temp Pulse Resp BP Pulse Ox FiO2 05/03/24 17:03 36.3 C L 88 13 92 05/03/24 16:03 36.2 C L 89 12 95 05/03/24 16:00 173/71 H 05/03/24 16:00 88 05/03/24 15:24 36.2 C L 93 H 14 99 05/03/24 15:15 97 H 18 92 28 05/03/24 14:12 36.1 C L 83 9 L 96 05/03/24 13:12 36.1 C L 84 9 L 95 05/03/24 12:18 36.1 C L 87 11 L 98 05/03/24 12:01 189/110 H 05/03/24 12:01 189/110 H 05/03/24 12:00 167/71 H 05/03/24 11:54 36.1 C L 86 13 95 05/03/24 11:31 167/99 H 05/03/24 11:24 36.1 C L 79 7 L 97 05/03/24 11:16 182/97 H 05/03/24 11:16 182/97 H 05/03/24 11:09 36.1 C L 80 7 L 95 05/03/24 11:06 36.1 C L 84 8 L 96 05/03/24 11:01 155/89 H 05/03/24 11:01 155/89 H 05/03/24 11:01 155/89 H 05/03/24 10:57 36.1 C L 82 7 L 94 05/03/24 10:32 36.2 C L 86 20 163/71 H 96 05/03/24 10:29 36.2 C L 91 H 20 169/76 H 97 05/03/24 10:15 36.1 C L 82 20 148/66 H 95 05/03/24 10:10 36.1 C L 87 20 157/74 H 95 05/03/24 10:01 180/89 H 05/03/24 10:00 36.2 C L 79 11 L 96 05/03/24 09:37 87 15 94 28 05/03/24 09:12 36.2 C L 118 H 18 96 05/03/24 09:01 196/114 H 05/03/24 09:01 196/114 H 05/03/24 09:01 196/114 H 05/03/24 08:45 36.2 C L 100 H 13 89 L 05/03/24 08:01 191/98 H 05/03/24 08:01 191/98 H 05/03/24 08:01 191/98 H 05/03/24 08:00 36.2 C L 75 28 H 96 05/03/24 08:00 28 05/03/24 08:00 168/75 H 05/03/24 08:00 89 05/03/24 07:35 183/88 H 05/03/24 07:35 183/88 H 05/03/24 07:35 183/88 H 05/03/24 07:31 190/88 H 05/03/24 07:31 190/88 H 05/03/24 07:31 73 19 96 28 05/03/24 07:30 36.2 C L 78 20 95 05/03/24 07:01 186/93 H 05/03/24 07:00 36.2 C L 76 19 97 05/03/24 06:31 194/94 H 05/03/24 06:24 36.1 C L 76 21 94 Laboratory Results CBC, CMP, fibrinogen, INR reviewed PG Care Time/CCT Total # of Minutes Spent Total Time Spent with Patient: Total time spent is greater than 50% in coordination of care (as documented) at patient's floor/unit and/or counseling patient: Coding Level of Care Code 83073 SUB INP/OBS CARE 2/35MIN Diagnoses Ischemia, bowel K55.9 Acute kidney injury superimposed on stage 3b chronic kidney disease N17.9; N18.32 Anemia D64.9 Anemia type: unspecified type Diabetes mellitus type 2 in obese E11.69; E66.9 Cirrhosis K74.60 Chronic diastolic heart failure I50.32 HTN (hypertension) I10 Hypertension type: unspecified PAF (paroxysmal atrial fibrillation) I48.0 Hypothyroidism E03.9 Obesity E66.9 (3) Anemia Anemia type: unspecified type Qualified Code(s): D64.9 - Anemia, unspecified (7) HTN (hypertension) Hypertension type: unspecified Qualified Code(s): I10 - Essential (primary) hypertension
[2024-05-03] MEDS: LANTUS PER UNIT CHARGE SC SCH (20:26)
[2024-05-03] MEDS: LABETALOL HCL IV 5 MG/ML 20ML IV PRN (23:29)
[2024-05-04 04:12] LABS: Basophils # (auto) 0.02 K/uL (0.00-0.20); Basophils % (auto) 0.2 %; Hematocrit (blood only) 28.1 % (37.0-47.0); Hemoglobin 9.2 g/dl (12.0-16.0); Immature Granulocytes # (auto) 0.24 K/uL (0.01-0.20); Lymphocytes # (auto) 0.47 K/uL (1.20-3.40); Mean Corpuscular Hemoglobin 28.2 pg (25.0-34.0); Mean Corpuscular Hgb Conc 32.7 g/dL (32.0-36.0); Mean Corpuscular Volume 86.2 fL (80.0-100.0); Mean Platelet Volume 11.1 fL (9.4-12.4); Monocytes % (auto) 7.6 %; Neutrophils # (auto) 10.22 K/uL (1.40-6.50); Neutrophils % (auto) 86.2 %; Nucleated RBC # (auto) 0.03 K/uL (0.00-0.12); Nucleated RBC % (auto) 0.3 %; Platelet Count 63 K/uL (130-400); RDW Coefficient of Variation 18.7 % (11.5-14.5); Red Blood Count 3.26 M/uL (4.20-5.40); White Blood Count 11.85 K/ul (4.8-10.8)
[2024-05-04 04:30] LABS: BUN Creatinine Ratio 25.1 (10-20); Calcium 8.9 mg/dl (8.6-10.3); Creatinine Clr Calc Pharmacy 15.6 ml/min; Phosphorus 6.2 mg/dl (2.5-4.9); Potassium 3.4 mmol/L (3.5-5.1)
[2024-05-04] MEDS: POTASSIUM CHLORIDE / WTR 20 MEQ/100 ML PLCT IV SCH (07:45)
[2024-05-04] MEDS: MoRPHine SULFATE 2 MG/ML CARP ONE (07:46)
--- NOTE | 2024-05-04 07:52 | Critical Care Progress Note ---
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 Critical care indication:Need for pressor support, mechanically ventilated post-operatively Plan: Neurologic CAM ICU: negative Cardiac:- -- s/p Shock Multifactorial Pt now off vasopressors, midodrine stopped 05/03/2024 Hydrocortisone started 04/29/2024, gradually tapering it off HTN Aortic stenosis HFpEF with diastolic dysfunction last EF 50-55% on echo 11/2022 Home medications eliquis, furosemide, spironolactone, propranolol all held in the setting of hypotension, Respiratory -- S/p VDRF extubated 05/03/[address] abd 04/27; extensive pneumatosis involving majority of colon and rectum, extraluminal gas, cirrhotic liver, trace ascites s/p bowel resection with ileostomy on 04/27 CT abd; small hemorrhage spots noted, no large collections Renal/electrolytes CKD stage 3b baseline Cr appears to be 1.7-1.9 EMY on CKD Monitor BUN/creatinine Avoid nephrotoxic medication Endocrine DMT2, insulin dependent last HA1c in January 2024; 8.2% Continue ISS per protocol Hypothyroidism Continue with levothyroxine IV Hematologic Chronic anemia MGUS baseline hgb appears to be 10-11 EBL noted to be ~500 mL from resection on 04/27 s/p 2 units blood 04/27 for hemoglobin drop 10.5 preop -> 5.5 postop, got 1 unit on 05/01, 2 units 10/10 (5 units total this admission) fibrinogen level wnl initially, low 05/02, improved somewhat today, got 1 FFP and 3 units of cryo Infectious disease Afebrile since admission on zosyn for empiric coverage given bowel ischemia and s/p bowel resection, will complete 7 days of antibiotics, to complete today Integumentary Some bruises noted on skin on admission, pt is on blood thinner at home --Prophylaxis VTE: IPC given the history of bleeding GI: Pantoprazole Lines: Right IJ, Lynn Diet: NPO Plan: In/out: -677, urine output 1575 Patient is getting hypertensive now, continue with labetalol 10 mg every 3 as needed Hydralazine will be added on top of it if the patient's heart rate cannot tolerate labetalol Complete the course of antibiotics for total of 7 days Patient is losing bright red from the colostomy as well as from the site of the CRIS drain. Will get surgery to evaluate her H&H is stable Will give vitamin K 2.5 mg IV Fibrinogen is on the lower side still, will give another 3 units of cryo Continue with 50 g of albumin on a daily basis, hold Bumex in the morning. Repeat BMP later today. If the creatinine is still trending up. Discontinue Bumex Continue with octreotide Midodrine will be discontinued given the MAP being in the 100 Taper hydrocortisone off Overall prognosis of the patient is guarded. Please note the above document was generated using voice recognition software. It may contain grammatical, syntax or spelling errors.Any formal questions or concerns about the content, text or information contained within the body of this dictation should be directly addressed to the provider for clarification. Admission and Anticipated Discharge Date Admission Date: April 27, 2024 Subjective Patient seen and examined at bedside. No acute distress, no adverse events overnight. Patient was saturating 94-95% on BiPAP 12/640% Patient's family was at bedside Denies any headache, no chest pain, no abdominal pain Has been afebrile Blood pressure has been on the higher side Review of Systems 2 Review of Systems: All systems reviewed & are unremarkable except as noted in Subjective Physical Exam 2 Physical Exam: Constitutional: No acute distress HEENT: PERRLA Respiratory system: Good air entry bilaterally, no wheeze, no rhonchi, mild crackles bilateral lower lobes CVS: S1-S2 positive, positive 3 out of 6 systolic murmur appreciated best at aorta Abdomen: Soft, nontender, nondistended, positive bowel sounds x4, obese, incision site and dionne clean, positive colostomy Extremities: +2 pulses bilaterally radialis/ dorsalis pedis, no cyanosis, +1 pitting edema bilateral lower extremity Neuro: Awake alert oriented to self Psych: Flat mood and affect G/U: Positive Lynn Skin: no rashes, warm and dry Lymphatic: no cervical or axillary lymphadenopathy Results & Data Results & Data Vital Signs (Past 12 Hours) Vital Signs Temp Pulse Resp BP Pulse Ox O2 Flow Rate FiO2 05/04/24 07:25 81 05/04/24 07:05 84 32 H 85 L 35 05/04/24 06:33 36.0 C L 80 13 91 05/04/24 06:03 36.0 C L 82 15 87 L 05/04/24 06:01 154/85 H 05/04/24 06:01 154/85 H 05/04/24 06:01 154/85 H 05/04/24 06:01 154/85 H 05/04/24 06:00 36.0 C L 82 15 88 L 05/04/24 05:06 35.9 C L 72 14 90 05/04/24 05:01 161/82 H 05/04/24 04:54 35.9 C L 85 21 92 05/04/24 04:21 101 H 28 H 93 28 05/04/24 04:03 35.9 C L 80 12 93 05/04/24 04:01 163/86 H 05/04/24 04:01 163/86 H 05/04/24 04:01 163/86 H 05/04/24 04:00 35.9 C L 79 17 92 05/04/24 04:00 101 H 05/04/24 03:01 172/86 H 05/04/24 03:00 35.8 C L 79 16 96 05/04/24 02:09 35.8 C L 93 H 12 96 05/04/24 02:01 162/81 H 05/04/24 01:54 35.8 C L 77 14 89 L 05/04/24 01:09 35.8 C L 87 14 93 05/04/24 01:01 176/88 H 05/04/24 01:01 176/88 H 05/04/24 00:54 35.7 C L 75 12 95 05/04/24 00:03 35.7 C L 73 15 90 05/04/24 00:01 155/75 H 05/04/24 00:01 155/75 H 05/04/24 00:00 77 05/04/24 00:00 101 H 05/03/24 23:55 73 133/96 05/03/24 23:53 150/77 H 05/03/24 23:53 150/77 H 05/03/24 23:48 109 H 26 H 94 28 05/03/24 23:45 35.7 C L 93 H 16 92 05/03/24 23:29 89 171/120 H 05/03/24 23:01 162/106 H 05/03/24 23:00 35.7 C L 85 16 95 05/03/24 22:03 35.5 C L 96 H 14 91 05/03/24 21:00 35.7 C L 84 15 94 05/03/24 20:00 35.6 C L 86 15 97 05/03/24 20:00 10 8 05/03/24 20:00 101 H 05/03/24 19:55 90 24 97 28 Laboratory Results 05/04/24 03:50 05/04/24 03:50 Coding Level of Care Code 88480 SUB INP/OBS CARE 350MIN Diagnoses Ischemia, bowel K55.9 MEY (acute kidney injury) N17.9 Diabetes mellitus type 2 in obese E11.69; E66.9 HTN (hypertension) I10 Hypertension type: unspecified Stage 3b chronic kidney disease N18.32 Chronic diastolic heart failure I50.32 Hypothyroidism E03.9 (4) HTN (hypertension) Hypertension type: unspecified Qualified Code(s): I10 - Essential (primary) hypertension
[2024-05-04] MEDS: MoRPHine SULFATE 2 MG/ML CARP IV PRN (08:00)
[2024-05-04 08:46] LABS: Fibrinogen 140 mg/dl (184-400); INR 1.5 (0.9-1.1); Partial Thromboplastin Ratio 1.3; Partial Thromboplastin Time 35 Seconds (21-31); Prothrombin Time 15.5 Seconds (9.0-12.0)
[2024-05-04] MEDS: PHYTONADIONE 2.5 MG in DEXTROSE 5% 50 ML IV ONE (09:36)
[2024-05-04] MEDS: BUMETANIDE 2 MG in SYRINGE 0 ML IV SCH (09:41)
--- NOTE | 2024-05-04 10:31 | Nephrology Progress Note ---
Date of Service May 04, 2024 Assessment & Plan (1) Acute kidney injury superimposed on stage 4 chronic kidney disease: (2) Hypokalemia: (3) HTN (hypertension): (4) Leukopenia: (5) Ischemic bowel disease: (6) Anemia: Plan 78-year-old female with a complex past medical history admitted to the hospital with abdominal pain and found to have ischemic bowel status post laparotomy cystectomy and bowel resection and ileostomy. Has stage IIIb CKD baseline creatinine around 1.6-1.8 during history of repeated episodes of EMY. Developed EMY with oliguria but urine output started to improve, overnight net negative and responding to diuretics. Has been off of pressor and blood pressure actually running high. Extubated and on OxyMask. Kidney function continues to decline, creatinine up to 3.2 this morning. Overall clinically making some progress. Denies any specific symptoms. --Continue hemodynamic support, monitor kidney function and electrolyte. As urine output improved, clinically making some progress hopefully kidney function will start to improve. Admission and Anticipated Discharge Date Admission Date: April 27, 2024 Alfredito Boyer was seen and evaluated in ICU with her family at bedside. She is wearing oxygen mask., Denies any difficulty with breathing. Overall clinically looks ill but otherwise did not mention any specific symptoms. Blood pressure has been running high. Urine output improved and responding to diuretics, net negative. Off of pressor. Kidney function continues to worsen slowly. Review of Systems Review of Systems: Detailed review of system was done and pertinent positives and negatives are mentioned above. Physical Exam Constitutional: WD/WN, vitals as above + ill appearing and + morbidly obese; no acute distress Respiratory: no respiratory distress Auscultation: + diminished lung sounds Cardiovascular: Rate/Rhythm: regular rate and regular rhythm Extremities: no edema Skin: no rashes, warm and dry Neurologic: awake; no focal motor deficits and not confused Psychiatric: Orientation: alert and oriented x 3 Results & Data Vital Signs (Past 12 Hours) Vital Signs Temp Pulse Resp BP Pulse Ox O2 Del Method O2 Flow Rate 05/04/24 09:59 Nasal Cannula 4 05/04/24 08:53 71 152/85 H 05/04/24 08:28 84 187/96 H 05/04/24 08:00 37.1 C 05/04/24 07:25 81 05/04/24 07:05 84 32 H 85 L 05/04/24 06:33 36.0 C L 80 13 91 05/04/24 06:03 36.0 C L 82 15 87 L 05/04/24 06:01 154/85 H 05/04/24 06:01 154/85 H 05/04/24 06:01 154/85 H 05/04/24 06:01 154/85 H 05/04/24 06:00 36.0 C L 82 15 88 L 05/04/24 05:06 35.9 C L 72 14 90 05/04/24 05:01 161/82 H 05/04/24 04:54 35.9 C L 85 21 92 05/04/24 04:21 101 H 28 H 93 05/04/24 04:03 35.9 C L 80 12 93 05/04/24 04:01 163/86 H 05/04/24 04:01 163/86 H 05/04/24 04:01 163/86 H 05/04/24 04:00 35.9 C L 79 17 92 05/04/24 04:00 101 H 05/04/24 03:01 172/86 H 05/04/24 03:00 35.8 C L 79 16 96 05/04/24 02:09 35.8 C L 93 H 12 96 05/04/24 02:01 162/81 H 05/04/24 01:54 35.8 C L 77 14 89 L 05/04/24 01:09 35.8 C L 87 14 93 05/04/24 01:01 176/88 H 05/04/24 01:01 176/88 H 05/04/24 00:54 35.7 C L 75 12 95 05/04/24 00:03 35.7 C L 73 15 90 05/04/24 00:01 155/75 H 05/04/24 00:01 155/75 H 05/04/24 00:00 77 05/04/24 00:00 101 H 05/03/24 23:55 73 133/96 05/03/24 23:53 150/77 H 05/03/24 23:53 150/77 H 05/03/24 23:48 109 H 26 H 94 05/03/24 23:45 35.7 C L 93 H 16 92 05/03/24 23:29 89 171/120 H 05/03/24 23:01 162/106 H 05/03/24 23:00 35.7 C L 85 16 95 FiO2 05/04/24 09:59 05/04/24 08:53 05/04/24 08:28 05/04/24 08:00 05/04/24 07:25 05/04/24 07:05 35 05/04/24 06:33 05/04/24 06:03 05/04/24 06:01 05/04/24 06:01 05/04/24 06:01 05/04/24 06:01 05/04/24 06:00 05/04/24 05:06 05/04/24 05:01 05/04/24 04:54 05/04/24 04:21 28 05/04/24 04:03 05/04/24 04:01 05/04/24 04:01 05/04/24 04:01 05/04/24 04:00 05/04/24 04:00 05/04/24 03:01 05/04/24 03:00 05/04/24 02:09 05/04/24 02:01 05/04/24 01:54 05/04/24 01:09 05/04/24 01:01 05/04/24 01:01 05/04/24 00:54 05/04/24 00:03 05/04/24 00:01 05/04/24 00:01 05/04/24 00:00 05/04/24 00:00 05/03/24 23:55 05/03/24 23:53 05/03/24 23:53 05/03/24 23:48 28 05/03/24 23:45 05/03/24 23:29 05/03/24 23:01 05/03/24 23:00 PG Care Time/CCT Total # of Minutes Spent Total Time Spent with Patient: Total time spent is greater than 50% in coordination of care (as documented) at patient's floor/unit and/or counseling patient: Coding Level of Care Code 26545 SUB INP/OBS CARE 2/35MIN Diagnoses Acute kidney injury superimposed on stage 4 chronic kidney disease N17.9; N18.4 Hypokalemia E87.6 HTN (hypertension) I10 Hypertension type: unspecified Leukopenia D72.819 Leukopenia type: unspecified Ischemic bowel disease K55.9 Anemia D64.9 (3) HTN (hypertension) Hypertension type: unspecified Qualified Code(s): I10 - Essential (primary) hypertension (4) Leukopenia Leukopenia type: unspecified Qualified Code(s): D72.819 - Decreased white blood cell count, unspecified
--- NOTE | 2024-05-04 11:37 | Surgery Progress Note ---
Date of Service May 04, 2024 Assessment & Plan (1) Ischemia, bowel: Plan: status post subtotal colectomy with end ileostomy on 04/27 she remains in critical condition, extubated but still in the ICU Underwent CT a/p for anemia today that showed no large hematoma, small area of hemorrhage. no acute surgical issues on enteral feeds continue current ICU care Admission and Anticipated Discharge Date Admission Date: April 27, 2024 Subjective resting comfortably in bed; extubated; no pressors; no fevers/chills; minimal ostomy output Physical Exam Physical Exam: AFVSS extubated resting comfortably Gastrointestinal (Abdomen): Percussion/Palpation: abdomen soft Results & Data Vital Signs (Past 12 Hours) Vital Signs Temp Pulse Resp BP Pulse Ox O2 Del Method O2 Flow Rate 05/04/24 11:22 36.9 C 79 20 174/94 H 97 4 05/04/24 10:58 36.5 C 78 20 161/84 H 95 4 05/04/24 10:44 36.5 C 78 19 156/86 H 90 4 05/04/24 10:21 36.5 C 77 14 166/56 H 97 4 05/04/24 09:59 Nasal Cannula 4 05/04/24 08:53 71 152/85 H 05/04/24 08:28 84 187/96 H 05/04/24 08:00 37.1 C 05/04/24 07:25 81 05/04/24 07:05 84 32 H 85 L 05/04/24 06:33 36.0 C L 80 13 91 05/04/24 06:03 36.0 C L 82 15 87 L 05/04/24 06:01 154/85 H 05/04/24 06:01 154/85 H 05/04/24 06:01 154/85 H 05/04/24 06:01 154/85 H 05/04/24 06:00 36.0 C L 82 15 88 L 05/04/24 05:06 35.9 C L 72 14 90 05/04/24 05:01 161/82 H 05/04/24 04:54 35.9 C L 85 21 92 05/04/24 04:21 101 H 28 H 93 05/04/24 04:03 35.9 C L 80 12 93 05/04/24 04:01 163/86 H 05/04/24 04:01 163/86 H 05/04/24 04:01 163/86 H 05/04/24 04:00 35.9 C L 79 17 92 05/04/24 04:00 101 H 05/04/24 03:01 172/86 H 05/04/24 03:00 35.8 C L 79 16 96 05/04/24 02:09 35.8 C L 93 H 12 96 05/04/24 02:01 162/81 H 05/04/24 01:54 35.8 C L 77 14 89 L 05/04/24 01:09 35.8 C L 87 14 93 05/04/24 01:01 176/88 H 05/04/24 01:01 176/88 H 05/04/24 00:54 35.7 C L 75 12 95 05/04/24 00:03 35.7 C L 73 15 90 05/04/24 00:01 155/75 H 05/04/24 00:01 155/75 H 05/04/24 00:00 77 05/04/24 00:00 101 H 05/03/24 23:55 73 133/96 05/03/24 23:53 150/77 H 05/03/24 23:53 150/77 H 05/03/24 23:48 109 H 26 H 94 05/03/24 23:45 35.7 C L 93 H 16 92 FiO2 05/04/24 11:22 05/04/24 10:58 05/04/24 10:44 05/04/24 10:21 05/04/24 09:59 05/04/24 08:53 05/04/24 08:28 05/04/24 08:00 05/04/24 07:25 05/04/24 07:05 35 05/04/24 06:33 05/04/24 06:03 05/04/24 06:01 05/04/24 06:01 05/04/24 06:01 05/04/24 06:01 05/04/24 06:00 05/04/24 05:06 05/04/24 05:01 05/04/24 04:54 05/04/24 04:21 28 05/04/24 04:03 05/04/24 04:01 05/04/24 04:01 05/04/24 04:01 05/04/24 04:00 05/04/24 04:00 05/04/24 03:01 05/04/24 03:00 05/04/24 02:09 05/04/24 02:01 05/04/24 01:54 05/04/24 01:09 05/04/24 01:01 05/04/24 01:01 05/04/24 00:54 05/04/24 00:03 05/04/24 00:01 05/04/24 00:01 05/04/24 00:00 05/04/24 00:00 05/03/24 23:55 05/03/24 23:53 05/03/24 23:53 05/03/24 23:48 28 05/03/24 23:45
[2024-05-04] MEDS: LANTUS PER UNIT CHARGE SC ONE (13:09)
--- NOTE | 2024-05-04 14:17 | Hospitalist Progress Note ---
Date of Service May 04, 2024 Assessment & Plan (1) Ischemia, bowel: Plan: Presented with abdominal pain and diffuse colonic pneumatosis seen on CT scan, ischemic colitis and Severe sepsis with septic shock, POA. Appreciate general surgery consultation and recommendations. She underwent total colectomy with ileostomy formation on April 27. She remains in the ICU postoperatively -was on ventilator and pressor support x 5 days-now extubated 05/03 to PR and weaned off of levophed/vasopressin/midodrine Continue weaning down off of IV hydrocortisone, weaning down IV albumin; was on octreotide and midodrine for hepatorenal syndrome--> now stopped midodrine and Nephro recommends stopping octreotide once renal function improves Urine output is improving and with improving metabolic acidosis from lactic acidosis and improving EMY secondary to ATN from hypotension/septic shock Continue to wean off of IV hydrocortisone for relative adrenal insufficiency with random cortisol 18 Continue IV albumin for blood pressure support, has significant ascites coming from CRIS drain/cirrhosis Pain control as needed Completed course of Zosyn Concern for blood in colostomy bag Surgery on board. No surgical intervention recommended at this time Continue medical management Appreciate aix administrator and Surgery management-prognosis guarded (2) Acute kidney injury superimposed on stage 3b chronic kidney disease: Plan: Creatinine peaked at 3.5. No 3.4. Baseline creatinine 1.8-2.2 Remains quite volume overloaded Hyponatremia now resolved UA with trace protein but no definite signs of infection, urine culture negative BPs now normalized and off pressors With hepatorenal syndrome-consult to nephrology appreciated. Stopped midodrine, weaning off IV albumin, and will continue octreotide until renal function clearly improving as per Nephro Follow urine output, BMP Continues on bumex bid for hypervolemia (3) Anemia: Plan: *Acute blood loss anemia With a history of anemia of chronic kidney disease as well as MGUS, EBL 500 mL from surgery, on Eliquis and given FFP preoperatively, 5 units PRBCs total post- op for hgb dropping to 5.5, and more FFP and cryoprecipitate on 05/02 She does have some serosanguineous fluid from NG tube and in colostomy bag, some black liquid in colostomy bag now Fibrinogen low--> giving more cryoprecipitate Monitor for further bleeding, follow CBC CT abdomen/pelvis on 05/02 does show some small areas of hemorrhage in the operative bed but no retroperitoneal hematoma Eliquis is on hold (4) Diabetes mellitus type 2 in obese: Plan: Remains On insulin drip (5) Cirrhosis: Plan: History of Rothman cirrhosis and portal hypertension. Supportive care. Serial labs Holding home propranolol, rifaximin, spironolactone, lactulose, furosemide With ascites fluid coming from CRIS drain With hepatorenal syndrome as above With thrombocytopenia from cirrhosis and sepsis, TBili mildly elevated Follow CBC, CMP, INR (6) Chronic diastolic heart failure: Plan: Holding home diuretics but continuing on IV Bumex bid With acute on chronic HFpEF (7) HTN (hypertension): Plan: Oral antihypertensive medications are on hold. Now off pressor support Also with moderate aortic stenosis (8) PAF (paroxysmal atrial fibrillation): Plan: Remains in normal sinus rhythm here Eliquis on hold for bleeding and recent surgery Propranolol on hold (9) Hypothyroidism: Plan: TSH normal in 07/2023 continue IV levothyroxine every 72 hours until taking po (10) Obesity: Plan: Morbidly obese. BMI 48.8 ROSALES Plan [id number], IJ central venous catheter, peripheral IV, Lynn catheter, CRIS drain DVT prophylaxis-SCDs GI prophylaxis-IV Protonix Disposition-continued stay in ICU, prognosis guarded but somewhat improved. Family being updated daily by ICU team and specialists Admission and Anticipated Discharge Date Admission Date: April 27, 2024 Subjective Extubated yesterday! Off of pressors. Patient is able to wake up and talk to me although it is difficult to understand her. Review of Systems Review of Systems: All systems reviewed & are unremarkable except as noted in Subjective Physical Exam Physical Exam: General: Awake but drowsy. She is able to answer some questions but also mumbles unintelligibly Heart: S1, S2/regular rate and rhythm, no murmur rubs or gallops Lungs: Clear to auscultation bilaterally. Normal effort Abdomen: Soft/nontender/nondistended. No hepatosplenomegaly. Colostomy bag has black liquid. Extremities: No clubbing/cyanosis. Bilateral leg edema Behavior: Appropriate, cooperative Results & Data Results & Data Vital Signs (Past 12 Hours) Vital Signs Temp Pulse Resp BP Pulse Ox O2 Del Method O2 Flow Rate 05/04/24 13:51 35.8 C L 79 2 L 99 Nasal Cannula 2 05/04/24 13:46 153/70 H 05/04/24 13:46 153/70 H 05/04/24 13:36 35.7 C L 80 12 99 05/04/24 13:31 147/78 H 05/04/24 13:21 35.7 C L 96 H 0 L 100 05/04/24 13:16 164/82 H 05/04/24 13:15 35.7 C L 81 10 L 98 05/04/24 13:01 158/94 H 05/04/24 12:51 35.7 C L 79 0 L 99 05/04/24 12:46 151/78 H 05/04/24 12:46 151/78 H 05/04/24 12:46 151/78 H 05/04/24 12:31 163/73 H 05/04/24 12:27 35.7 C L 79 5 L 100 05/04/24 12:21 35.7 C L 79 4 L 100 05/04/24 12:01 155/79 H 05/04/24 12:00 35.7 C L 94 H 0 L 98 05/04/24 11:46 164/74 H 05/04/24 11:46 164/74 H 05/04/24 11:27 35.7 C L 79 15 99 05/04/24 11:22 36.9 C 79 20 174/94 H 97 4 05/04/24 11:16 174/94 H 05/04/24 11:15 35.8 C L 97 H 23 89 L 05/04/24 11:01 149/82 H 05/04/24 11:00 35.7 C L 78 9 L 88 L 05/04/24 10:58 36.5 C 78 20 161/84 H 95 4 05/04/24 10:44 36.5 C 78 19 156/86 H 90 4 05/04/24 10:36 35.4 C L 78 19 91 05/04/24 10:21 35.1 C L 76 17 95 05/04/24 10:21 36.5 C 77 14 166/56 H 97 4 05/04/24 10:16 166/86 H 05/04/24 10:03 35.6 C L 81 18 97 05/04/24 10:01 160/89 H 05/04/24 09:59 Nasal Cannula 4 05/04/24 09:57 35.7 C L 78 24 94 05/04/24 09:54 35.8 C L 77 20 97 05/04/24 09:46 159/115 H 05/04/24 09:46 159/115 H 05/04/24 09:42 35.8 C L 75 17 94 05/04/24 09:31 164/74 H 05/04/24 09:31 164/74 H 05/04/24 09:30 35.9 C L 74 17 94 05/04/24 09:15 35.8 C L 74 18 96 05/04/24 09:01 158/87 H 05/04/24 09:01 158/87 H 05/04/24 09:00 35.8 C L 74 25 H 90 05/04/24 08:53 71 152/85 H 05/04/24 08:30 35.7 C L 86 11 L 98 05/04/24 08:28 84 187/96 H 05/04/24 08:24 35.8 C L 85 21 95 05/04/24 08:24 187/96 H 05/04/24 08:24 187/96 H 05/04/24 08:24 187/96 H 05/04/24 08:24 187/96 H 05/04/24 08:15 35.8 C L 84 18 94 05/04/24 08:03 192/108 H 05/04/24 08:00 37.1 C 05/04/24 07:25 81 05/04/24 07:05 84 32 H 85 L 05/04/24 06:33 36.0 C L 80 13 91 05/04/24 06:03 36.0 C L 82 15 87 L 05/04/24 06:01 154/85 H 05/04/24 06:01 154/85 H 05/04/24 06:01 154/85 H 05/04/24 06:01 154/85 H 05/04/24 06:00 36.0 C L 82 15 88 L 05/04/24 05:06 35.9 C L 72 14 90 05/04/24 05:01 161/82 H 05/04/24 04:54 35.9 C L 85 21 92 05/04/24 04:21 101 H 28 H 93 05/04/24 04:03 35.9 C L 80 12 93 05/04/24 04:01 163/86 H 05/04/24 04:01 163/86 H 05/04/24 04:01 163/86 H 05/04/24 04:00 35.9 C L 79 17 92 05/04/24 04:00 101 H 05/04/24 03:01 172/86 H 05/04/24 03:00 35.8 C L 79 16 96 FiO2 05/04/24 13:51 05/04/24 13:46 05/04/24 13:46 05/04/24 13:36 05/04/24 13:31 05/04/24 13:21 05/04/24 13:16 05/04/24 13:15 05/04/24 13:01 05/04/24 12:51 05/04/24 12:46 05/04/24 12:46 05/04/24 12:46 05/04/24 12:31 05/04/24 12:27 05/04/24 12:21 05/04/24 12:01 05/04/24 12:00 05/04/24 11:46 05/04/24 11:46 05/04/24 11:27 05/04/24 11:22 05/04/24 11:16 05/04/24 11:15 05/04/24 11:01 05/04/24 11:00 05/04/24 10:58 05/04/24 10:44 05/04/24 10:36 05/04/24 10:21 05/04/24 10:21 05/04/24 10:16 05/04/24 10:03 05/04/24 10:01 05/04/24 09:59 05/04/24 09:57 05/04/24 09:54 05/04/24 09:46 05/04/24 09:46 05/04/24 09:42 05/04/24 09:31 05/04/24 09:31 05/04/24 09:30 05/04/24 09:15 05/04/24 09:01 05/04/24 09:01 05/04/24 09:00 05/04/24 08:53 05/04/24 08:30 05/04/24 08:28 05/04/24 08:24 05/04/24 08:24 05/04/24 08:24 05/04/24 08:24 05/04/24 08:24 05/04/24 08:15 05/04/24 08:03 05/04/24 08:00 05/04/24 07:25 05/04/24 07:05 35 05/04/24 06:33 05/04/24 06:03 05/04/24 06:01 05/04/24 06:01 05/04/24 06:01 05/04/24 06:01 05/04/24 06:00 05/04/24 05:06 05/04/24 05:01 05/04/24 04:54 05/04/24 04:21 28 05/04/24 04:03 05/04/24 04:01 05/04/24 04:01 05/04/24 04:01 05/04/24 04:00 05/04/24 04:00 05/04/24 03:01 05/04/24 03:00 PG Care Time/CCT Total # of Minutes Spent Total Time Spent with Patient: Total time spent is greater than 50% in coordination of care (as documented) at patient's floor/unit and/or counseling patient: Coding Level of Care Code 24608 SUB INP/OBS CARE 2/35MIN Diagnoses Ischemia, bowel K55.9 Acute kidney injury superimposed on stage 3b chronic kidney disease N17.9; N18.32 Anemia D64.9 Anemia type: unspecified type Diabetes mellitus type 2 in obese E11.69; E66.9 Cirrhosis K74.60 Chronic diastolic heart failure I50.32 HTN (hypertension) I10 Hypertension type: unspecified PAF (paroxysmal atrial fibrillation) I48.0 Hypothyroidism E03.9 Obesity E66.9 (3) Anemia Anemia type: unspecified type Qualified Code(s): D64.9 - Anemia, unspecified (7) HTN (hypertension) Hypertension type: unspecified Qualified Code(s): I10 - Essential (primary) hypertension
[2024-05-04 15:18] LABS: BUN Creatinine Ratio 25.7 (10-20); Calcium 9.2 mg/dl (8.6-10.3); Creatinine Clr Calc Pharmacy 15.2 ml/min; Potassium 4.2 mmol/L (3.5-5.1)
[2024-05-04] MEDS: LANTUS PER UNIT CHARGE SC SCH (19:59)
[2024-05-05 04:31] LABS: Basophils # (auto) 0.01 K/uL (0.00-0.20); Basophils % (auto) 0.1 %; Hemoglobin 8.5 g/dl (12.0-16.0); Immature Granulocytes # (auto) 0.23 K/uL (0.01-0.20); Immature Granulocytes % (auto) 2.1 %; Lymphocytes # (auto) 0.36 K/uL (1.20-3.40); Lymphocytes % (auto) 3.3 %; Mean Corpuscular Hemoglobin 28.5 pg (25.0-34.0); Mean Corpuscular Hgb Conc 32.7 g/dL (32.0-36.0); Mean Corpuscular Volume 87.2 fL (80.0-100.0); Mean Platelet Volume 11.2 fL (9.4-12.4); Monocytes # (auto) 0.54 K/uL (0.11-0.59); Monocytes % (auto) 4.9 %; Neutrophils % (auto) 89.6 %; Nucleated RBC # (auto) 0.02 K/uL (0.00-0.12); Nucleated RBC % (auto) 0.2 %; Platelet Count 75 K/uL (130-400); RDW Coefficient of Variation 18.8 % (11.5-14.5); RDW Standard Deviation 57.6 fL (36.4-46.3); Red Blood Count 2.98 M/uL (4.20-5.40); White Blood Count 10.94 K/ul (4.8-10.8)
[2024-05-05 04:44] LABS: BUN Creatinine Ratio 27.5 (10-20); Calcium 9.2 mg/dl (8.6-10.3); Creatinine Clr Calc Pharmacy 14.3 ml/min; Potassium 3.9 mmol/L (3.5-5.1)
--- NOTE | 2024-05-05 08:22 | Critical Care Progress Note ---
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 Critical care indication:Need for pressor support, mechanically ventilated post-operatively Plan: Neurologic CAM ICU: negative Cardiac:- --Hypertension last EF 50-55% on echo 11/2022 Home medications eliquis, furosemide, spironolactone, propranolol all held in the setting of hypotension, Given the heart rate is on the higher side, will consider starting metoprolol p.o. -- s/p Shock Multifactorial Pt now off vasopressors, midodrine stopped 05/03/2024 Hydrocortisone started 04/29/2024, gradually tapering it off Aortic stenosis HFpEF with diastolic dysfunction Respiratory -- S/p VDRF extubated 05/03/[address] abd 04/27; extensive pneumatosis involving majority of colon and rectum, extraluminal gas, cirrhotic liver, trace ascites s/p bowel resection with ileostomy on 04/27 CT abd; small hemorrhage spots noted, no large collections Renal/electrolytes CKD stage 3b baseline Cr appears to be 1.7-1.9 EMY on CKD Monitor BUN/creatinine Avoid nephrotoxic medication Endocrine DMT2, insulin dependent last HA1c in January 2024; 8.2% Continue ISS per protocol Hypothyroidism Continue with levothyroxine IV Hematologic Chronic anemia MGUS baseline hgb appears to be 10-11 EBL noted to be ~500 mL from resection on 04/27 s/p 2 units blood 04/27 for hemoglobin drop 10.5 preop -> 5.5 postop, got 1 unit on 05/01, 2 units 05/02 (5 units total this admission) fibrinogen level wnl initially, low 10/10, improved somewhat today, got 1 FFP and 6 units of cryo Infectious disease Afebrile since admission on zosyn for empiric coverage given bowel ischemia and s/p bowel resection, c ompleted 7 days of Zosyn on 05/04/2024 Integumentary Some bruises noted on skin on admission, pt is on blood thinner at home --Prophylaxis VTE: IPC given the history of bleeding GI: Pantoprazole Lines: Right IJ, Lynn Diet: NPO Plan: In/out: - 675, urine output 1070 Patient's blood pressure is on the higher side, if the patient is able to swallow then we will start him on metoprolol. Continue with labetalol IV till the There is still sanguinous drainage from the CRIS drain site. Surgery is on board, no intervention from their side for the time being Monitor H&H Fibrinogen within normal limit today Discontinue Bumex DC octreotide and albumin Taper hydrocortisone off Patient hemodynamically stable downgraded to medical floor Case discussed with primary team Please note the above document was generated using voice recognition software. It may contain grammatical, syntax or spelling errors.Any formal questions or concerns about the content, text or information contained within the body of this dictation should be directly addressed to the provider for clarification. Admission and Anticipated Discharge Date Admission Date: April 27, 2024 Subjective Patient seen and examined at bedside. No acute distress, no adverse events overnight She was saturating 99% on 2 L, put her on room air and she was still saturating well Her MAP was in the 100 She is alert oriented, answering questions appropriately Denied any chest pain, no abdominal pain, no shortness of breath Complain of mild headache Review of Systems 2 Review of Systems: All systems reviewed & are unremarkable except as noted in Subjective Physical Exam 2 Physical Exam: Constitutional: No acute distress HEENT: PERRLA Respiratory system: Good air entry bilaterally, no wheeze, no rhonchi, mild crackles bilateral lower lobes CVS: S1-S2 positive, positive 3 out of 6 systolic murmur appreciated best at aorta Abdomen: Soft, nontender, nondistended, positive bowel sounds x4, obese, incision site and dionne clean, positive colostomy Extremities: +2 pulses bilaterally radialis/ dorsalis pedis, no cyanosis, +1 pitting edema bilateral lower extremity Neuro: Awake alert oriented to self and place Psych: Normal mood and affect G/U: Positive Lynn Skin: no rashes, warm and dry Lymphatic: no cervical or axillary lymphadenopathy Results & Data Results & Data Vital Signs (Past 12 Hours) Vital Signs Temp Pulse Resp BP Pulse Ox O2 Del Method O2 Flow Rate 05/05/24 06:01 152/77 H 05/05/24 06:00 106 H 14 95 05/05/24 05:54 102 H 15 97 05/05/24 05:15 82 18 95 05/05/24 05:06 102 H 21 95 05/05/24 05:01 156/74 H 05/05/24 04:57 87 15 97 05/05/24 04:51 79 17 96 05/05/24 04:33 85 14 96 05/05/24 04:15 94 H 17 95 05/05/24 04:06 109 H 23 96 05/05/24 04:01 132/83 05/05/24 04:01 132/83 05/05/24 03:57 103 H 24 95 05/05/24 03:30 94 H 19 95 05/05/24 03:16 154/71 H 05/05/24 03:16 154/71 H 05/05/24 03:15 104 H 17 95 05/05/24 03:12 156/100 H 05/05/24 03:12 105 H 14 95 05/05/24 03:09 100 H 20 96 05/05/24 03:02 92 H 20 95 2 05/05/24 02:45 96 H 16 94 05/05/24 02:39 107 H 18 95 05/05/24 02:31 143/94 H 05/05/24 02:12 100 H 16 95 05/05/24 02:09 103 H 15 95 05/05/24 02:01 150/95 H 05/05/24 01:48 99 H 17 95 05/05/24 01:45 104 H 18 95 05/05/24 01:39 90 18 96 05/05/24 01:31 146/80 H 05/05/24 01:31 146/80 H 05/05/24 01:31 146/80 H 05/05/24 01:21 83 23 95 05/05/24 01:03 85 20 96 05/05/24 01:01 153/83 H 05/05/24 00:57 84 16 97 10/13/24 00:51 81 21 95 05/05/24 00:30 107 H 22 92 05/05/24 00:15 108 H 19 92 05/05/24 00:03 94 H 15 94 05/05/24 00:01 154/81 H 05/05/24 00:01 154/81 H 05/04/24 23:54 82 17 90 05/04/24 23:33 94 H 18 87 L 05/04/24 23:31 142/101 H 05/04/24 23:31 142/101 H 05/04/24 23:31 142/101 H 05/04/24 23:27 110 H 13 87 L 05/04/24 23:24 88 15 92 05/04/24 23:21 96 H 15 95 2 05/04/24 23:00 138/103 H 05/04/24 23:00 102 H 17 95 05/04/24 22:47 76 17 90 05/04/24 22:46 133/73 05/04/24 22:46 133/73 05/04/24 22:41 96 H 19 96 05/04/24 22:32 97 H 19 90 05/04/24 22:31 146/74 H 05/04/24 22:29 79 18 96 05/04/24 22:23 98 H 138/71 05/04/24 22:22 138/71 05/04/24 22:22 138/71 05/04/24 22:22 138/71 05/04/24 22:22 138/71 05/04/24 22:20 77 16 93 05/04/24 22:16 128/100 05/04/24 22:05 79 15 93 05/04/24 22:02 77 13 95 05/04/24 22:01 138/74 05/04/24 22:01 138/74 05/04/24 21:47 88 16 92 05/04/24 21:44 83 16 94 05/04/24 21:43 154/111 H 05/04/24 21:43 154/111 H 05/04/24 21:43 101 H 154/111 H 05/04/24 21:31 166/107 H 05/04/24 21:29 94 H 12 100 05/04/24 21:01 174/87 H 05/04/24 21:01 174/87 H 05/04/24 21:00 100 H 14 100 05/04/24 20:47 105 H 14 100 05/04/24 20:46 Nasal Cannula 05/04/24 20:39 36.7 C 05/04/24 20:31 168/91 H 05/04/24 20:31 168/91 H 05/04/24 20:30 97 H 17 100 Laboratory Results 05/05/24 04:06 05/05/24 04:06 Coding Level of Care Code 16951 SUB INP/OBS CARE 3/50MIN Diagnoses Ischemia, bowel K55.9 EMY (acute kidney injury) N17.9 Diabetes mellitus type 2 in obese E11.69; E66.9 HTN (hypertension) I10 Hypertension type: unspecified Stage 3b chronic kidney disease N18.32 Chronic diastolic heart failure I50.32 Hypothyroidism E03.9 (4) HTN (hypertension) Hypertension type: unspecified Qualified Code(s): I10 - Essential (primary) hypertension
[2024-05-05] MEDS ORDERED: LANTUS PER UNIT CHARGE SC ONE (08:30)
[2024-05-05] MEDS: LANTUS PER UNIT CHARGE SC ONE (08:35)
[2024-05-05 09:24] LABS: Fibrinogen 206 mg/dl (184-400)
--- NOTE | 2024-05-05 09:45 | Nephrology Progress Note ---
Date of Service May 05, 2024 Assessment & Plan (1) Acute kidney injury superimposed on stage 4 chronic kidney disease: (2) Hypokalemia: (3) HTN (hypertension): (4) Leukopenia: (5) Ischemic bowel disease: (6) Anemia: Plan 78-year-old female with a complex past medical history admitted to the hospital with abdominal pain and found to have ischemic bowel status post laparotomy cystectomy and bowel resection and ileostomy. Has stage IIIb CKD baseline creatinine around 1.6-1.8 during history of repeated episodes of EMY. Developed EMY with oliguria but urine output started to improve, overnight net negative and responding to diuretics. Has been off of pressor and blood pressure actually running high. Kidney function continues to decline, creatinine up to 3.8 this morning but overall clinically making some progress --Continue hemodynamic support, monitor kidney function and electrolyte. --Acute kidney injury most likely secondary to ATN with hypotension, postsurgical state, unlikely hepatorenal syndrome, even though imaging showed cirrhosis and some concern for ascites noted during surgery, no evidence of decompensated cirrhosis. Recommend stopping octreotide. -- Clinically no sign of volume overload, no indication for Bumex. If she remains n.p.o. would recommend starting on some maintenance IV fluid. Admission and Anticipated Discharge Date Admission Date: April 27, 2024 Alfredito Boyer was seen in ICU this morning. She looked comfortable and oxygen saturation normal without wearing supplemental oxygen. Urine output slightly dropped to 650 mg, progressive worsening of kidney function but electrolyte acceptable. Reports feeling thirsty, no shortness of breath or chest pain. No fever or chills. No nausea or abdominal pain. Review of Systems Review of Systems: Detail review of system was unremarkable except mentioned above. Physical Exam Constitutional: WD/WN, vitals as above + ill appearing and + morbidly obese; no acute distress Respiratory: no respiratory distress Auscultation: + diminished lung sounds Cardiovascular: Rate/Rhythm: regular rate and regular rhythm Extremities: no edema Skin: no rashes, warm and dry Neurologic: no focal motor deficits Psychiatric: Orientation: alert and oriented x 3 Results & Data Vital Signs (Past 12 Hours) Vital Signs Pulse Resp BP Pulse Ox O2 Del Method O2 Flow Rate 05/05/24 09:06 111 H 24 96 05/05/24 08:01 148/94 H 05/05/24 08:00 102 H 12 95 Room Air 05/05/24 08:00 100 H 05/05/24 08:00 Nasal Cannula 2 05/05/24 07:15 91 H 14 94 Nasal Cannula 2 05/05/24 06:03 83 15 95 05/05/24 06:01 152/77 H 05/05/24 06:00 106 H 14 95 05/05/24 05:54 102 H 15 97 05/05/24 05:15 82 18 95 05/05/24 05:06 102 H 21 95 05/05/24 05:01 156/74 H 05/05/24 04:57 87 15 97 05/05/24 04:51 79 17 96 05/05/24 04:33 85 14 96 05/05/24 04:15 94 H 17 95 05/05/24 04:06 109 H 23 96 05/05/24 04:01 132/83 05/05/24 04:01 132/83 05/05/24 03:57 103 H 24 95 05/05/24 03:30 94 H 19 95 05/05/24 03:16 154/71 H 05/05/24 03:16 154/71 H 05/05/24 03:15 104 H 17 95 05/05/24 03:12 156/100 H 05/05/24 03:12 105 H 14 95 05/05/24 03:09 100 H 20 96 05/05/24 03:02 92 H 20 95 2 05/05/24 02:45 96 H 16 94 05/05/24 02:39 107 H 18 95 05/05/24 02:31 143/94 H 05/05/24 02:12 100 H 16 95 05/05/24 02:09 103 H 15 95 05/05/24 02:01 150/95 H 05/05/24 01:48 99 H 17 95 05/05/24 01:45 104 H 18 95 05/05/24 01:39 90 18 96 05/05/24 01:31 146/80 H 05/05/24 01:31 146/80 H 05/05/24 01:31 146/80 H 05/05/24 01:21 83 23 95 05/05/24 01:03 85 20 96 05/05/24 01:01 153/83 H 05/05/24 00:57 84 16 97 05/05/24 00:51 81 21 95 10/13/24 00:30 107 H 22 92 05/05/24 00:15 108 H 19 92 05/05/24 00:03 94 H 15 94 05/05/24 00:01 154/81 H 05/05/24 00:01 154/81 H 05/04/24 23:54 82 17 90 05/04/24 23:33 94 H 18 87 L 05/04/24 23:31 142/101 H 05/04/24 23:31 142/101 H 05/04/24 23:31 142/101 H 05/04/24 23:27 110 H 13 87 L 05/04/24 23:24 88 15 92 05/04/24 23:21 96 H 15 95 2 05/04/24 23:00 138/103 H 05/04/24 23:00 102 H 17 95 05/04/24 22:47 76 17 90 05/04/24 22:46 133/73 05/04/24 22:46 133/73 05/04/24 22:41 96 H 19 96 05/04/24 22:32 97 H 19 90 05/04/24 22:31 146/74 H 05/04/24 22:29 79 18 96 05/04/24 22:23 98 H 138/71 05/04/24 22:22 138/71 05/04/24 22:22 138/71 05/04/24 22:22 138/71 05/04/24 22:22 138/71 05/04/24 22:20 77 16 93 05/04/24 22:16 128/100 05/04/24 22:05 79 15 93 05/04/24 22:02 77 13 95 05/04/24 22:01 138/74 05/04/24 22:01 138/74 05/04/24 21:47 88 16 92 05/04/24 21:44 83 16 94 05/04/24 21:43 154/111 H 05/04/24 21:43 154/111 H 05/04/24 21:43 101 H 154/111 H PG Care Time/CCT Total # of Minutes Spent Total Time Spent with Patient: Total time spent is greater than 50% in coordination of care (as documented) at patient's floor/unit and/or counseling patient: Coding Level of Care Code 06294 SUB INP/OBS CARE MIN Diagnoses Acute kidney injury superimposed on stage 4 chronic kidney disease N17.9; N18.4 Hypokalemia E87.6 HTN (hypertension) I10 Hypertension type: unspecified Leukopenia D72.819 Leukopenia type: unspecified Ischemic bowel disease K55.9 Anemia D64.9 (3) HTN (hypertension) Hypertension type: unspecified Qualified Code(s): I10 - Essential (primary) hypertension (4) Leukopenia Leukopenia type: unspecified Qualified Code(s): D72.819 - Decreased white blood cell count, unspecified
--- NOTE | 2024-05-05 11:08 | Surgery Progress Note ---
Date of Service May 05, 2024 Assessment & Plan (1) Ischemia, bowel: Plan: status post subtotal colectomy with end ileostomy on 04/27 she remains in critical condition, extubated but still in the ICU creatinine climbing; nephrology on board NPO for now continue current ICU care Admission and Anticipated Discharge Date Admission Date: April 27, 2024 Subjective Doing fairly well. Interactive. No nausea or vomiting. Minimal abdominal pain. No fevers. Physical Exam Physical Exam: AFVSS extubated resting comfortably Gastrointestinal (Abdomen): Percussion/Palpation: abdomen soft Results & Data Vital Signs (Past 12 Hours) Vital Signs Pulse Resp BP Pulse Ox O2 Del Method O2 Flow Rate 05/05/24 09:06 111 H 24 96 05/05/24 08:01 148/94 H 05/05/24 08:00 102 H 12 95 Room Air 05/05/24 08:00 100 H 05/05/24 08:00 Nasal Cannula 2 05/05/24 07:15 91 H 14 94 Nasal Cannula 2 05/05/24 06:03 83 15 95 05/05/24 06:01 152/77 H 05/05/24 06:00 106 H 14 95 05/05/24 05:54 102 H 15 97 05/05/24 05:15 82 18 95 05/05/24 05:06 102 H 21 95 05/05/24 05:01 156/74 H 05/05/24 04:57 87 15 97 05/05/24 04:51 79 17 96 05/05/24 04:33 85 14 96 05/05/24 04:15 94 H 17 95 05/05/24 04:06 109 H 23 96 05/05/24 04:01 132/83 05/05/24 04:01 132/83 05/05/24 03:57 103 H 24 95 05/05/24 03:30 94 H 19 95 05/05/24 03:16 154/71 H 05/05/24 03:16 154/71 H 05/05/24 03:15 104 H 17 95 05/05/24 03:12 156/100 H 05/05/24 03:12 105 H 14 95 05/05/24 03:09 100 H 20 96 05/05/24 03:02 92 H 20 95 2 05/05/24 02:45 96 H 16 94 05/05/24 02:39 107 H 18 95 05/05/24 02:31 143/94 H 05/05/24 02:12 100 H 16 95 05/05/24 02:09 103 H 15 95 05/05/24 02:01 150/95 H 05/05/24 01:48 99 H 17 95 05/05/24 01:45 104 H 18 95 05/05/24 01:39 90 18 96 05/05/24 01:31 146/80 H 05/05/24 01:31 146/80 H 05/05/24 01:31 146/80 H 05/05/24 01:21 83 23 95 05/05/24 01:03 85 20 96 05/05/24 01:01 153/83 H 05/05/24 00:57 84 16 97 05/05/24 00:51 81 21 95 05/05/24 00:30 107 H 22 92 05/05/24 00:15 108 H 19 92 05/05/24 00:03 94 H 15 94 05/05/24 00:01 154/81 H 05/05/24 00:01 154/81 H 05/04/24 23:54 82 17 90 05/04/24 23:33 94 H 18 87 L 05/04/24 23:31 142/101 H 05/04/24 23:31 142/101 H 05/04/24 23:31 142/101 H 05/04/24 23:27 110 H 13 87 L 05/04/24 23:24 88 15 92 05/04/24 23:21 96 H 15 95 2
[2024-05-05] MEDS ORDERED: Nursing to Pharmacy Communication SCH (13:30)
--- NOTE | 2024-05-05 14:31 | Hospitalist Progress Note ---
Date of Service May 05, 2024 Assessment & Plan (1) Ischemia, bowel: Plan: Presented with abdominal pain and diffuse colonic pneumatosis seen on CT scan, ischemic colitis and Severe sepsis with septic shock, POA. Appreciate general surgery consultation and recommendations. She underwent total colectomy with ileostomy formation on April 27. She remains in the ICU postoperatively -was on ventilator and pressor support x 5 days-now extubated 05/03 to ME and weaned off of levophed/vasopressin/midodrine Continue weaning down off of IV hydrocortisone, weaning down IV albumin; was on octreotide and midodrine for hepatorenal syndrome--> now stopped midodrine and octreotide Continue to wean off of IV hydrocortisone for relative adrenal insufficiency with random cortisol 18 Continue IV albumin for blood pressure support, has significant ascites coming from CRIS drain/cirrhosis Pain control as needed Completed course of Zosyn Concern for blood in colostomy bag and slightly low hemoglobin today Surgery on board. 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 Baseline creatinine 1.8-2.2. Making urine. Nephrology on board. Bumex discontinued Now started on a diet. Encourage p.o. fluid intake. Hyponatremia now resolved UA with trace protein but no definite signs of infection, urine culture negative BPs now normalized and off pressors With hepatorenal syndrome-consult to nephrology appreciated. Stopped midodrine and octreotide, weaning off IV albumin Follow urine output, BMP (3) Anemia: Plan: *Acute blood loss anemia With a history of anemia of chronic kidney disease as well as MGUS, EBL 500 mL from surgery, on Eliquis and given FFP preoperatively, 5 units PRBCs total post- op for hgb dropping to 5.5, and more FFP and cryoprecipitate on 05/02 She does have black liquid in colostomy bag now Monitor for further bleeding, follow CBC CT abdomen/pelvis on 05/02 does show some small areas of hemorrhage in the operative bed but no retroperitoneal hematoma General Surgery on board, not concerned Eliquis is on hold (4) Diabetes mellitus type 2 in obese: Plan: Off of insulin drip Currently on subcu insulin (5) Cirrhosis: Plan: History of Rothman cirrhosis and portal hypertension. Supportive care. Serial labs Holding home propranolol, rifaximin, spironolactone, lactulose, furosemide With ascites fluid coming from CRIS drain With hepatorenal syndrome as above With thrombocytopenia from cirrhosis and sepsis, TBili mildly elevated Follow CBC, CMP, INR (6) Chronic diastolic heart failure: Plan: Currently euvolemic Discontinue IV Bumex Encourage p.o. fluid intake in the setting of EMY (7) HTN (hypertension): Plan: Oral antihypertensive medications are on hold. Now off pressor support Also with moderate aortic stenosis (8) PAF (paroxysmal atrial fibrillation): Plan: Remains in normal sinus rhythm here Eliquis on hold for bleeding and recent surgery Propranolol on hold (9) Hypothyroidism: Plan: TSH normal in 07/2023 continue IV levothyroxine every 72 hours until taking po (10) Obesity: Plan: Morbidly obese. BMI 48.8 ROSALES Plan DVT prophylaxis-SCDs GI prophylaxis-IV Protonix Disposition: Downgrade to PCU Admission and Anticipated Discharge Date Admission Date: April 27, 2024 Subjective Patient was seen and examined at 11:45 AM. She was able to answer my questions today more appropriately although still confused. She is AO x 2. She denies any pain anywhere. Review of Systems Review of Systems: All systems reviewed & are unremarkable except as noted in Subjective Physical Exam Physical Exam: General: Awake, conversant Heart: S1, S2/regular rate and rhythm, no murmur rubs or gallops Lungs: Clear to auscultation bilaterally. Normal effort Abdomen: Soft/nontender/nondistended. No hepatosplenomegaly. Colostomy bag has dark-colored liquid. Extremities: No clubbing/cyanosis. Leg edema improved bilaterally Behavior: Appropriate, cooperative Results & Data Results & Data Vital Signs (Past 12 Hours) Vital Signs Pulse Resp BP Pulse Ox O2 Del Method O2 Flow Rate 05/05/24 12:09 107 H 16 96 Room Air 05/05/24 12:01 149/86 H 05/05/24 11:48 106 H 16 95 05/05/24 11:03 78 17 94 05/05/24 11:01 158/87 H 05/05/24 10:45 97 H 19 97 05/05/24 10:21 105 H 18 96 05/05/24 10:01 154/97 H 05/05/24 09:51 104 H 17 96 05/05/24 09:14 153/86 H 05/05/24 09:06 111 H 24 96 05/05/24 08:01 148/94 H 05/05/24 08:00 102 H 12 95 Room Air 05/05/24 08:00 100 H 05/05/24 08:00 Nasal Cannula 2 05/05/24 07:15 91 H 14 94 Nasal Cannula 2 05/05/24 06:03 83 15 95 05/05/24 06:01 152/77 H 05/05/24 06:00 106 H 14 95 05/05/24 05:54 102 H 15 97 05/05/24 05:15 82 18 95 05/05/24 05:06 102 H 21 95 05/05/24 05:01 156/74 H 05/05/24 04:57 87 15 97 05/05/24 04:51 79 17 96 05/05/24 04:33 85 14 96 05/05/24 04:15 94 H 17 95 05/05/24 04:06 109 H 23 96 05/05/24 04:01 132/83 05/05/24 04:01 132/83 05/05/24 03:57 103 H 24 95 05/05/24 03:30 94 H 19 95 05/05/24 03:16 154/71 H 05/05/24 03:16 154/71 H 05/05/24 03:15 104 H 17 95 05/05/24 03:12 156/100 H 05/05/24 03:12 105 H 14 95 05/05/24 03:09 100 H 20 96 05/05/24 03:02 92 H 20 95 2 05/05/24 02:45 96 H 16 94 05/05/24 02:39 107 H 18 95 05/05/24 02:31 143/94 H Laboratory Results Abnormal lab results 05/04/24 05/04/24 05/04/24 Range/Units 14:46 17:37 19:56 WBC (4.8-10.8) K/ul RBC (4.20-5.40) M/uL Hgb (12.0-16.0) g/dl Hct (37.0-47.0) % RDW Std Deviation (36.4-46.3) fL RDW Coeff of Leah (11.5-14.5) % Plt Count (130-400) K/uL Neut # (Auto) (1.40-6.50) K/uL Lymph # (Auto) (1.20-3.40) K/uL Immature Gran # (Auto) (0.01-0.20) K/uL Anion Gap 15 H (3-11) BUN 89 H (6-23) mg/dl Creatinine 3.46 H (0.6-1.2) mg/dl BUN/Creatinine Ratio 25.7 H (10-20) Glucose 192 H (70-99(Fasting)) mg/dl POC Glucose 165 H 171 H (70-99) mg/dl 05/04/24 05/05/24 05/05/24 Range/Units 23:48 04:06 11:25 WBC 10.94 H (4.8-10.8) K/ul RBC 2.98 L (4.20-5.40) M/uL Hgb 8.5 L (12.0-16.0) g/dl Hct 26.0 L (37.0-47.0) % RDW Std Deviation 57.6 H (36.4-46.3) fL RDW Coeff of Leah 18.8 H (11.5-14.5) % Plt Count 75 L (130-400) K/uL Neut # (Auto) 9.80 H (1.40-6.50) K/uL Lymph # (Auto) 0.36 L (1.20-3.40) K/uL Immature Gran # (Auto) 0.23 H (0.01-0.20) K/uL Anion Gap 15 H (3-11) BUN 100 H (6-23) mg/dl Creatinine 3.63 H (0.6-1.2) mg/dl BUN/Creatinine Ratio 27.5 H (10-20) Glucose 176 H (70-99(Fasting)) mg/dl POC Glucose 192 H 167 H (70-99) mg/dl PG Care Time/CCT Total # of Minutes Spent Total Time Spent with Patient: Total time spent is greater than 50% in coordination of care (as documented) at patient's floor/unit and/or counseling patient: Coding Level of Care Code 51477 SUB INP/OBS CARE 2/35MIN Diagnoses Ischemia, bowel K55.9 Acute kidney injury superimposed on stage 3b chronic kidney disease N17.9; N18.32 Anemia D64.9 Anemia type: unspecified type Diabetes mellitus type 2 in obese E11.69; E66.9 Cirrhosis K74.60 Chronic diastolic heart failure I50.32 HTN (hypertension) I10 Hypertension type: unspecified PAF (paroxysmal atrial fibrillation) I48.0 Hypothyroidism E03.9 Obesity E66.9 (3) Anemia Anemia type: unspecified type Qualified Code(s): D64.9 - Anemia, unspecified (7) HTN (hypertension) Hypertension type: unspecified Qualified Code(s): I10 - Essential (primary) hypertension
[2024-05-05] MEDS: INSULIN ASPART PER UNIT CHARGE SC SCH (18:01)
[2024-05-05] MEDS: LANTUS PER UNIT CHARGE SC SCH (20:47)
[2024-05-06] MEDS: HYDROCORTISONE SOD 50 MG in SYRINGE 0 ML IV SCH (03:00)
[2024-05-06] MEDS ORDERED: HYDROCORTISONE SOD 50 MG in SYRINGE 0 ML IV SCH (03:00)
[2024-05-06 07:18] LABS: Basophils # (auto) 0.01 K/uL (0.00-0.20); Basophils % (auto) 0.1 %; Eosinophils # (auto) 0.01 K/uL (0.00-0.50); Eosinophils % (auto) 0.1 %; Hematocrit (blood only) 26.4 % (37.0-47.0); Hemoglobin 8.3 g/dl (12.0-16.0); Immature Granulocytes # (auto) 0.15 K/uL (0.01-0.20); Immature Granulocytes % (auto) 1.6 %; Lymphocytes # (auto) 0.55 K/uL (1.20-3.40); Mean Corpuscular Hemoglobin 27.9 pg (25.0-34.0); Mean Corpuscular Hgb Conc 31.4 g/dL (32.0-36.0); Mean Corpuscular Volume 88.9 fL (80.0-100.0); Mean Platelet Volume 10.7 fL (9.4-12.4); Monocytes # (auto) 0.54 K/uL (0.11-0.59); Monocytes % (auto) 5.9 %; Neutrophils # (auto) 7.91 K/uL (1.40-6.50); Neutrophils % (auto) 86.3 %; Nucleated RBC # (auto) 0.03 K/uL (0.00-0.12); Nucleated RBC % (auto) 0.3 %; Platelet Count 58 K/uL (130-400); RDW Standard Deviation 60.2 fL (36.4-46.3); Red Blood Count 2.97 M/uL (4.20-5.40); White Blood Count 9.17 K/ul (4.8-10.8)
[2024-05-06 08:10] LABS: BUN Creatinine Ratio 27.2 (10-20); Calcium 9.1 mg/dl (8.6-10.3); Creatinine Clr Calc Pharmacy 13.3 ml/min; Magnesium 2.1 mg/dl (1.7-2.4); Potassium 4.2 mmol/L (3.5-5.1)
[2024-05-06] MEDS: LANTUS PER UNIT CHARGE SC SCH (08:57)
--- NOTE | 2024-05-06 10:01 | Nephrology Progress Note ---
Date of Service May 06, 2024 Assessment & Plan (1) Acute kidney injury superimposed on stage 4 chronic kidney disease: (2) Hypokalemia: (3) HTN (hypertension): (4) Leukopenia: (5) Ischemic bowel disease: (6) Anemia: Plan 78-year-old female with a complex past medical history admitted to the hospital with abdominal pain and found to have ischemic bowel status post laparotomy cystectomy and bowel resection and ileostomy. Has stage IIIb CKD baseline creatinine around 1.6-1.8 mg/dl during history of repeated episodes of EMY. Developed EMY with oliguria but urine output started to improve. Has been off of pressor and blood pressure actually running high. Kidney function continues to decline, creatinine up to 3.9 mg/dl this morning but overall clinically making some progress. Has been able to tolerate po. --Acute kidney injury most likely secondary to ATN with hypotension, postsurgical state, unlikely hepatorenal syndrome, even though imaging showed cirrhosis and some concern for ascites noted during surgery, no evidence of decompensated cirrhosis. --encourage po intake as she is able to eat and drink and feels thirsty. Admission and Anticipated Discharge Date Admission Date: April 27, 2024 Alfredito Boyer was seen this morning with family at bedside. She looked comfortable. Feels thirsty and trying to increase fluid intake. Urine output slightly dropped to 650 mg, progressive worsening of kidney function but electrolyte acceptable. Reports feeling thirsty, no shortness of breath or chest pain. No fever or chills. No nausea or abdominal pain. Review of Systems Review of Systems: Detail review of system was unremarkable except mentioned above. Physical Exam Constitutional: WD/WN, vitals as above + ill appearing and + morbidly obese; no acute distress Respiratory: no respiratory distress Auscultation: + diminished lung sounds Cardiovascular: Rate/Rhythm: regular rate and regular rhythm Extremities: no edema Skin: no rashes, warm and dry Neurologic: no focal motor deficits Psychiatric: Orientation: alert and oriented x 3 Results & Data Vital Signs (Past 12 Hours) Vital Signs Temp Pulse Pulse Resp BP Pulse Ox O2 Del Method 05/06/24 07:50 36.3 C L 70 18 151/75 H 99 BiPAP 05/06/24 03:58 67 16 100 05/06/24 02:58 36.4 C L 65 18 138/76 100 BiPAP 05/06/24 00:14 69 05/06/24 00:00 105 H 05/05/24 22:54 76 15 92 05/05/24 22:40 36.3 C L 73 18 153/78 H 100 BiPAP O2 Flow Rate 05/06/24 07:50 05/06/24 03:58 2 05/06/24 02:58 05/06/24 00:14 05/06/24 00:00 05/05/24 22:54 2 05/05/24 22:40 PG Care Time/CCT Total # of Minutes Spent Total Time Spent with Patient: Total time spent is greater than 50% in coordination of care (as documented) at patient's floor/unit and/or counseling patient: Coding Level of Care Code 47767 SUB INP/OBS CARE 2/35MIN Diagnoses Acute kidney injury superimposed on stage 4 chronic kidney disease N17.9; N18.4 Hypokalemia E87.6 HTN (hypertension) I10 Hypertension type: unspecified Leukopenia D72.819 Leukopenia type: unspecified Ischemic bowel disease K55.9 Anemia D64.9 (3) HTN (hypertension) Hypertension type: unspecified Qualified Code(s): I10 - Essential (primary) hypertension (4) Leukopenia Leukopenia type: unspecified Qualified Code(s): D72.819 - Decreased white blood cell count, unspecified
--- NOTE | 2024-05-06 10:43 | Surgery Progress Note ---
<Statement entered by Jesus Aguiar, DO - 05/06/24 16:58> I have seen and examined this patient. She has remained HD stable. She is not diaphoretic or in distress and is fairing quite well. The fluid collected in the ostomy bag from her laparoscopic site is very thin more suggestive of blood tinged serous fluid. Does not appear to be jay blood. H/H remains stable. Continue to follow serial for now. Date of Service May 06, 2024 Assessment & Plan (1) Ischemic bowel disease: Plan: status post subtotal colectomy with end ileostomy on 04/27 WBC 9, Hbg 8.3. Vitals stable Events noted over the wknd and pt now in PCU downgraded from ICU She is on a diet as ileostomy is functioning Today site where CRIS drain was removed has now become bloody in appearance and draining a moderate amount. on examination the output appears thin (likely some blood mixed with her ascitic fluid). We rechecked a Hbg which returned stable at 8.2. We will continue to monitor this closely for any change in patient's vitals or clinical status. We will repeat a Hbg again this evening around 6pm and again tomorrow midline dressing changed, was saturated with serosang output, otherwise incision intact w/ dionne, inferior + superior poles open from prior jaxson drain Appreciate hospitalist/nephrology care Pt seen/examined with dr. aguiar ADDENDUM: updated this afternoon regarding more bloody output via CRIS drain site. Hbg recheck at 10am was 8.2, therefore ordered to repeat again at 2pm which returned slightly higher at 8.5. Vital signs remain stable. Will order for a repeat at 18:00 to ensure stability and again with morning labs. Also type&screened patient in the event blood transfusion becomes necessary. We will continue to monitor closely. If any deterioration in patient's status please re check labs sooner and may consider repeat imaging for further evaluation. Otherwise continue to hold blood thinners and we will continue to monitor. Admission and Anticipated Discharge Date Admission Date: April 27, 2024 Subjective Patient reports feeling okay. No significant abdominal complaints. Tolerating diet without n/v/pain. Ileostomy functioning. No CP. Denies any new lightheadedness/dizziness. Some edema/swelling of LUE Physical Exam Physical Exam: awake, no distress Respiratory: on supplemental o2 Gastrointestinal (Abdomen): Inspection/Auscultation: + abdominal surgical incision (midline incision with dionne, serosang bloody drainage noted (changed )); abdomen not distended + ileostomy functioning with liquid brow n stool in bag. Site where CRIS drain removed now draining moderate amount of thin bloody + ascitic fluid Musculoskeletal: LUE extremity Results & Data Vital Signs (Past 12 Hours) Vital Signs Temp Pulse Pulse Resp BP Pulse Ox O2 Del Method 05/06/24 07:50 97.3 F L 70 18 151/75 H 99 BiPAP 05/06/24 03:58 67 16 100 05/06/24 02:58 97.5 F L 65 18 138/76 100 BiPAP 05/06/24 00:14 69 05/06/24 00:00 105 H 05/05/24 22:54 76 15 92 05/05/24 22:40 97.3 F L 73 18 153/78 H 100 BiPAP O2 Flow Rate 05/06/24 07:50 05/06/24 03:58 2 05/06/24 02:58 05/06/24 00:14 05/06/24 00:00 05/05/24 22:54 2 05/05/24 22:40 PG Care Time/CCT Total # of Minutes Spent Total Time Spent with Patient: Total time spent is greater than 50% in coordination of care (as documented) at patient's floor/unit and/or counseling patient: Coding Level of Care Code 65700 Post Operative Follow-Up Diagnoses Ischemic bowel disease K55.9
[2024-05-06 10:49] LABS: Hematocrit (blood only) 24.7 % (37.0-47.0); Hemoglobin 8.2 g/dl (12.0-16.0); Mean Corpuscular Hemoglobin 28.9 pg (25.0-34.0); Mean Corpuscular Hgb Conc 33.2 g/dL (32.0-36.0); Mean Platelet Volume 11.9 fL (9.4-12.4); Nucleated RBC # (auto) 0.02 K/uL (0.00-0.12); Nucleated RBC % (auto) 0.2 %; Platelet Count 75 K/uL (130-400); RDW Standard Deviation 59.6 fL (36.4-46.3); Red Blood Count 2.84 M/uL (4.20-5.40); White Blood Count 9.69 K/ul (4.8-10.8)
--- NOTE | 2024-05-06 11:45 | Pharmacy Report ---
Pharmacy Glycemic Short Note 2 - Date of Service May 06, 2024 - Glycemic Short BSG Results (Last 24 hours): 05/05/24 05/05/24 05/06/24 15:54 20:07 05:43 Glucose Cancelled POC Glucose 183 H 176 H 05/06/24 05/06/24 05/06/24 07:05 07:31 11:01 Glucose 130 H POC Glucose 134 H 190 H OUTPATIENT ANTIDIABETIC REGIMEN: * Lantus 7 units SC AM * Novolog 5 units SC BID with meals * HbA1c = 8.2% on 02/17/24 ASSESSMENT: 05/06: * Rosalind recieved 22 units of insulin yesterday (15 were basal) * Diet advanced to T2DM yesterday with lunch, fasting BSG within goal range, additional IV hydrocortisone 50mg Q24H added times two doses. Continue current basal regimen with hydrocortisone tomorrow. * BSGs trend up at lunchtime, tighten carbohydrate ratio slightly 05/03: * BSGs within goal the last 24h. Drip stable at 2 unit/hr. * Extubated today (tube feeds off, awaiting swallow eval). Vasopressors weaned. Hydrocortisone taper initiated (50mg IV q12h X 2 days followed by 50mg daily X 2 days). * Plan for SQ transition per small piece cutter. Will begin Lantus 10 units SQ X 1 now and overlap with the drip ~ 2h prior to discontinuation. Plan for an HS lantus scale depending on BSG. Novolog q6 /. 05/02: * Day #4 of insulin drip. Currently running at 2 units/hr. Most recent BSG was 187 mg/dL. * Remains intubated and sedated. Hydrocortisone IV is being tapered, on day #2 of 50 mg q8h. Continues on Zosyn. Norepinephrine is off and only running vasopressin. Peptamen 1.5 sammy is running at trickle rate (10 mL/hr). Urine output has improved today. * Plan to continue drip until patient is off all pressors. 04/29: * Rosalind received 11 units of insulin yesterday, all bolus. BSGs were: [phone] mg/dL. * Fasting BSG this AM was 238 mg/dL, above goal. Remains on Levophed and Vasopressin. Due to significant acidosis, patient was started on Bicarb drip mixed in Sterile Water. Remains NPO. Started on Hydrocortisone IV as well (100 mg x 1 then 50 mg q6h). * Due to pressor requirements as well as addition of steroids, will transition patient from subcutaneous insulin to an IV insulin drip. Per small piece cutter, this drip will be based on hyperglycemia protocol; however, if urine ketones return positive, then will transition drip to DKA protocol. No bolus required. 04/28: * 78 y/o F admitted for ischemic bowel s/p resection on 04/27. Patient has history of Type 2 diabetes on low doses of basal and bolus insulins at home. * Also with history of CKD stage 3. * Post op yesterday patient needed pressure support. Currently intubated and on vasopressors. Pharmacy glycemic consult initiated due to higher blood sugars. * Novolog was started yesterday with stress of 1 parameters and goal range of 140-180 mg/dl. Blood sugars currently being checked q4h and reasonably stable around 200 mg/dl. PLAN FOR INPATIENT GLYCEMIC CONTROL: * Basal insulin * Lantus 15 units SQ daily * Bolus insulin * NovoLog per scale q6h while NPO * Goal Range: Low 110 mg/dL - High 140 mg/dL * Correction Factor: 25 mg/dL/unit * Nutritional / Prandial insulin per carb ratio of 1 unit per 12 grams CHO consumed
[2024-05-06] MEDS ORDERED: SODIUM CHLORIDE 0.9% 250 ML IV PRN (13:05)
--- NOTE | 2024-05-06 13:52 | Hospitalist Progress Note ---
Date of Service May 06, 2024 Assessment & Plan (1) Ischemia, bowel: Plan: Presented with abdominal pain and diffuse colonic pneumatosis seen on CT scan, ischemic colitis and Severe sepsis with septic shock, POA. Appreciate general surgery consultation and recommendations. She underwent total colectomy with ileostomy formation on April 27. She remains in the ICU postoperatively -was on ventilator and pressor support x 5 days-now extubated 05/03 to CA and weaned off of levophed/vasopressin/midodrine Continue weaning down off of IV hydrocortisone, weaned down IV albumin; was on octreotide and midodrine for hepatorenal syndrome--> now stopped midodrine and octreotide Continue to wean off of IV hydrocortisone for relative adrenal insufficiency with random cortisol 18 Continue IV albumin for blood pressure support, has significant ascites coming from CRIS drain/cirrhosis Pain control as needed Completed course of Zosyn Concern for blood in colostomy bag and slightly low hemoglobin today Surgery on board. 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 Baseline creatinine 1.8-2.2. Making urine. Creatinine continues to rise No metabolic acidosis or electrolyte imbalances although high anion gap Nephrology on board. Bumex discontinued Now started on a diet. Encourage p.o. fluid intake. Hyponatremia now resolved UA with trace protein but no definite signs of infection, urine culture negative BPs now normalized and off pressors With hepatorenal syndrome-consult to nephrology appreciated. Stopped midodrine and octreotide, weaned off IV albumin Follow urine output, BMP (3) Anemia: Plan: *Acute blood loss anemia With a history of anemia of chronic kidney disease as well as MGUS, EBL 500 mL from surgery, on Eliquis and given FFP preoperatively, 5 units PRBCs total post- op for hgb dropping to 5.5, and more FFP and cryoprecipitate on 05/02 She does have black liquid in colostomy bag now and bloody fluid in CRIS drain Monitor for further bleeding, follow CBC CT abdomen/pelvis on 05/02 does show some small areas of hemorrhage in the operative bed but no retroperitoneal hematoma General Surgery on board, keeping close eye on hemoglobin Eliquis is on hold (4) Diabetes mellitus type 2 in obese: Plan: Off of insulin drip Currently on subcu insulin (5) Cirrhosis: Plan: History of Rothman cirrhosis and portal hypertension. Supportive care. Serial labs Holding home propranolol, rifaximin, spironolactone, lactulose, furosemide With bloody ascites fluid coming from CRIS drain With hepatorenal syndrome as above With thrombocytopenia from cirrhosis and sepsis, TBili mildly elevated Follow CBC, CMP, INR (6) Chronic diastolic heart failure: Plan: Currently euvolemic Discontinue IV Bumex Encourage p.o. fluid intake in the setting of EMY (7) HTN (hypertension): Plan: Oral antihypertensive medications are on hold. Now off pressor support Also with moderate aortic stenosis (8) PAF (paroxysmal atrial fibrillation): Plan: Remains in normal sinus rhythm here Eliquis on hold for bleeding and recent surgery Propranolol on hold (9) Hypothyroidism: Plan: TSH normal in 07/2023 continue IV levothyroxine every 72 hours until taking po (10) Obesity: Plan: Morbidly obese. BMI 48.8 ROSALES Plan DVT prophylaxis-SCDs GI prophylaxis-IV Protonix Admission and Anticipated Discharge Date Admission Date: April 27, 2024 Subjective Patient was seen at 11:50 AM. She says she feels well overall. Does not have any major complaints. She is more alert today and was able to hold a conversation better today. I was notified by the nurse that she had jay blood in the CRIS drain. Asked the nurse to inform surgery team. Review of Systems Review of Systems: All systems reviewed & are unremarkable except as noted in Subjective Physical Exam Physical Exam: General: Awake, conversant Heart: S1, S2/regular rate and rhythm, no murmur rubs or gallops Lungs: Clear to auscultation bilaterally. Normal effort Abdomen: Soft/nontender/nondistended. No hepatosplenomegaly. Colostomy bag has dark-colored liquid. CRIS drain has serosanguineous fluid, more bloody today Extremities: No clubbing/cyanosis. Leg edema improved bilaterally Behavior: Appropriate, cooperative Results & Data Results & Data Vital Signs (Past 12 Hours) Vital Signs Temp Pulse Pulse Resp BP Pulse Ox O2 Del Method 05/06/24 11:03 36.6 C 77 18 156/76 H 100 Nasal Cannula 05/06/24 07:50 36.3 C L 70 18 151/75 H 99 BiPAP 05/06/24 03:58 67 16 100 05/06/24 02:58 36.4 C L 65 18 138/76 100 BiPAP O2 Flow Rate 05/06/24 11:03 2 05/06/24 07:50 05/06/24 03:58 2 05/06/24 02:58 Laboratory Results Abnormal lab results 05/05/24 05/05/24 05/06/24 Range/Units 15:54 20:07 07:05 RBC 2.97 L (4.20-5.40) M/uL Hgb 8.3 L (12.0-16.0) g/dl Hct 26.4 L (37.0-47.0) % MCHC 31.4 L (32.0-36.0) g/dL RDW Std Deviation 60.2 H (36.4-46.3) fL RDW Coeff of Leah 19.0 H (11.5-14.5) % Plt Count 58 L (130-400) K/uL Neut # (Auto) 7.91 H (1.40-6.50) K/uL Lymph # (Auto) 0.55 L (1.20-3.40) K/uL Anion Gap 16 H (3-11) BUN 106 H (6-23) mg/dl Creatinine 3.90 H (0.6-1.2) mg/dl BUN/Creatinine Ratio 27.2 H (10-20) Glucose 130 H (70-99(Fasting)) mg/dl POC Glucose 183 H 176 H (70-99) mg/dl 05/06/24 05/06/24 05/06/24 Range/Units 07:31 10:15 11:01 RBC 2.84 L (4.20-5.40) M/uL Hgb 8.2 L (12.0-16.0) g/dl Hct 24.7 L (37.0-47.0) % MCHC (32.0-36.0) g/dL RDW Std Deviation 59.6 H (36.4-46.3) fL RDW Coeff of Leah 19.0 H (11.5-14.5) % Plt Count 75 L (130-400) K/uL Neut # (Auto) (1.40-6.50) K/uL Lymph # (Auto) (1.20-3.40) K/uL Anion Gap (3-11) BUN (6-23) mg/dl Creatinine (0.6-1.2) mg/dl BUN/Creatinine Ratio (10-20) Glucose (70-99(Fasting)) mg/dl POC Glucose 134 H 190 H (70-99) mg/dl PG Care Time/CCT Total # of Minutes Spent Total Time Spent with Patient: Total time spent is greater than 50% in coordination of care (as documented) at patient's floor/unit and/or counseling patient: Coding Level of Care Code 05853 SUB INP/OBS CARE 2/35MIN Diagnoses Ischemia, bowel K55.9 Acute kidney injury superimposed on stage 3b chronic kidney disease N17.9; N18.32 Anemia D64.9 Anemia type: unspecified type Diabetes mellitus type 2 in obese E11.69; E66.9 Cirrhosis K74.60 Chronic diastolic heart failure I50.32 HTN (hypertension) I10 Hypertension type: unspecified PAF (paroxysmal atrial fibrillation) I48.0 Hypothyroidism E03.9 Obesity E66.9 (3) Anemia Anemia type: unspecified type Qualified Code(s): D64.9 - Anemia, unspecified (7) HTN (hypertension) Hypertension type: unspecified Qualified Code(s): I10 - Essential (primary) hypertension
[2024-05-06 14:30] LABS: Hematocrit (blood only) 25.4 % (37.0-47.0); Hemoglobin 8.5 g/dl (12.0-16.0); Mean Corpuscular Hemoglobin 28.9 pg (25.0-34.0); Mean Corpuscular Hgb Conc 33.5 g/dL (32.0-36.0); Mean Corpuscular Volume 86.4 fL (80.0-100.0); Mean Platelet Volume 11.1 fL (9.4-12.4); Nucleated RBC # (auto) 0.02 K/uL (0.00-0.12); Nucleated RBC % (auto) 0.2 %; Platelet Count 75 K/uL (130-400); RDW Standard Deviation 58.6 fL (36.4-46.3); Red Blood Count 2.94 M/uL (4.20-5.40); White Blood Count 10.13 K/ul (4.8-10.8)
[2024-05-06 18:25] LABS: Hematocrit (blood only) 25.7 % (37.0-47.0); Hemoglobin 8.2 g/dl (12.0-16.0); Mean Corpuscular Hgb Conc 31.9 g/dL (32.0-36.0); Mean Corpuscular Volume 87.7 fL (80.0-100.0); Mean Platelet Volume 11.3 fL (9.4-12.4); Nucleated RBC # (auto) 0.03 K/uL (0.00-0.12); Nucleated RBC % (auto) 0.3 %; Platelet Count 89 K/uL (130-400); RDW Coefficient of Variation 18.8 % (11.5-14.5); Red Blood Count 2.93 M/uL (4.20-5.40); White Blood Count 10.64 K/ul (4.8-10.8)
[2024-05-06 23:03] LABS: Hematocrit (blood only) 25.3 % (37.0-47.0); Hemoglobin 8.4 g/dl (12.0-16.0)
--- NOTE | 2024-05-07 06:48 | Surgery Progress Note ---
Date of Service May 07, 2024 Assessment & Plan (1) Ischemic bowel disease: Plan: 05/07/2024 POD#10 status post subtotal colectomy with end ileostomy Concern yesterday was that the output in the left lower quadrant was jay blood it was checked but this was basically ascitic fluid blood-tinged and her hemoglobin is remaining stable in the last 3 days Overall the patient appears to be improving in some parameters her mental status certainly is improved her respiratory status is the same her renal function is slightly deteriorating lab this morning is pending Will encourage patient to increase her oral intake Overall the patient is slightly improved in some parameters deteriorating other overall condition remains guarded Admission and Anticipated Discharge Date Admission Date: April 27, 2024 Subjective Patient is alert coherent denies any abdominal discomfort, when asked Nursing states that oral intake has been poor Physical Exam Physical Exam: Alert coherent in no obvious distress On CPAP O2 sats 92% Some ecchymosis noted right neck central line has been placed there 1 ICU was related No audible rales or rhonchi The abdomen is soft no localized tenderness continues to have significant amount of ascitic drainage from the left lower quadrant weight site the ileostomy has good output Her urine output has slightly improved overnight Her hemoglobin has remained stable in the 8.5 range Results & Data Vital Signs (Past 12 Hours) Vital Signs Temp Pulse Pulse Resp BP Pulse Ox O2 Del Method 05/07/24 03:08 82 22 92 05/07/24 02:45 36.4 C L 71 18 120/62 96 CPAP 05/06/24 23:28 80 24 93 05/06/24 22:43 36.6 C 78 17 138/73 100 Nasal Cannula 05/06/24 22:42 83 05/06/24 19:33 Nasal Cannula 05/06/24 19:16 36.5 C 79 18 160/75 H 98 Nasal Cannula O2 Flow Rate 05/07/24 03:08 2 05/07/24 02:45 05/06/24 23:28 2 05/06/24 22:43 2 05/06/24 22:42 05/06/24 19:33 1.5 05/06/24 19:16 2 Laboratory Results Pending this morning
[2024-05-07 07:54] LABS: Calcium 8.8 mg/dl (8.6-10.3); Potassium 4.8 mmol/L (3.5-5.1)
[2024-05-07 08:00] LABS: BUN Creatinine Ratio 28.3 (10-20); Creatinine Clr Calc Pharmacy 12.7 ml/min
[2024-05-07 08:12] LABS: Basophils # (auto) 0.01 K/uL (0.00-0.20); Basophils % (auto) 0.1 %; Eosinophils # (auto) 0.07 K/uL (0.00-0.50); Eosinophils % (auto) 0.6 %; Hematocrit (blood only) 28.4 % (37.0-47.0); Hemoglobin 9.2 g/dl (12.0-16.0); Immature Granulocytes # (auto) 0.16 K/uL (0.01-0.20); Immature Granulocytes % (auto) 1.3 %; Lymphocytes # (auto) 0.59 K/uL (1.20-3.40); Lymphocytes % (auto) 4.6 %; Mean Corpuscular Hemoglobin 28.5 pg (25.0-34.0); Mean Corpuscular Hgb Conc 32.4 g/dL (32.0-36.0); Mean Corpuscular Volume 87.9 fL (80.0-100.0); Mean Platelet Volume 11.2 fL (9.4-12.4); Monocytes # (auto) 0.59 K/uL (0.11-0.59); Monocytes % (auto) 4.6 %; Neutrophils # (auto) 11.29 K/uL (1.40-6.50); Neutrophils % (auto) 88.8 %; Nucleated RBC # (auto) 0.02 K/uL (0.00-0.12); Nucleated RBC % (auto) 0.2 %; Platelet Count 99 K/uL (130-400); RDW Coefficient of Variation 19.2 % (11.5-14.5); RDW Standard Deviation 59.9 fL (36.4-46.3); Red Blood Count 3.23 M/uL (4.20-5.40); White Blood Count 12.71 K/ul (4.8-10.8)
[2024-05-07] MEDS: PANTOprazole 40 MG in SYRINGE BID IV SCH (09:00)
--- NOTE | 2024-05-07 10:43 | Nephrology Progress Note ---
Date of Service May 07, 2024 Assessment & Plan (1) Acute kidney injury superimposed on stage 4 chronic kidney disease: (2) Hypokalemia: (3) HTN (hypertension): (4) Leukopenia: (5) Ischemic bowel disease: (6) Anemia: Plan 78-year-old female with a complex past medical history admitted to the hospital with abdominal pain and found to have ischemic bowel status post laparotomy cystectomy and bowel resection and ileostomy. Has stage IIIb CKD baseline creatinine around 1.6-1.8 mg/dl during history of repeated episodes of EMY. Developed EMY with oliguria but urine output started to improve. Has been off of pressor and blood pressure actually running high. Kidney function continues to decline, creatinine up to 4.2 mg/dl and significantly net negative high ostomy output. --Start on IV fluids with a goal to keep in positive balance as she is not able to drink enough and remains significantly net negative with progressive worsening of kidney function. Acute kidney injury most likely secondary to ATN with hypotension, postsurgical state, unlikely hepatorenal syndrome, even though imaging showed cirrhosis and some concern for ascites noted during surgery, no evidence of decompensated cirrhosis. --encourage po intake as she is able to eat and drink and feels thirsty. -- Discussed with Rosalind and her family today that if kidney function continues to decline there is risk that she may reach to the point where in have to discussed about kidney replacement therapy. At her age with her underlying comorbidities, do not feel he should be a great candidate for dialysis and it will not provide any quality of life as it will be probably a ongoing event for her. Encouraged to think about it and make decision. Admission and Anticipated Discharge Date Admission Date: April 27, 2024 Subjective Rosalind was seen this morning with family at bedside. She looked comfortable. Feels thirsty and trying to increase fluid intake however she is really is not able to feed herself. Urine output remains low but she has significant ileostomy output and overall net negative. Noted to have progressive worsening of kidney function but electrolyte acceptable. Reports feeling thirsty, no shortness of breath or chest pain. No fever or chills. No nausea or abdominal pain. Review of Systems Review of Systems: Detail review of system was unremarkable except mentioned above. Physical Exam Constitutional: WD/WN, vitals as above + ill appearing and + morbidly obese; no acute distress Respiratory: no respiratory distress Auscultation: + diminished lung sounds Cardiovascular: Rate/Rhythm: regular rate and regular rhythm Extremities: + edema Skin: no rashes, warm and dry Neurologic: awake; no focal motor deficits and not confused Psychiatric: Orientation: alert and oriented x 3 Results & Data Vital Signs (Past 12 Hours) Vital Signs Temp Pulse Pulse Resp BP BP Pulse Ox 05/07/24 08:00 05/07/24 07:15 75 18 150/80 H 99 05/07/24 03:08 82 22 92 05/07/24 02:45 36.4 C L 71 18 120/62 96 05/06/24 23:28 80 24 93 05/06/24 22:43 36.6 C 78 17 138/73 100 05/06/24 22:42 83 O2 Del Method O2 Flow Rate 05/07/24 08:00 Nasal Cannula 2 05/07/24 07:15 BiPAP 05/07/24 03:08 2 05/07/24 02:45 CPAP 05/06/24 23:28 2 05/06/24 22:43 Nasal Cannula 2 05/06/24 22:42 PG Care Time/CCT Total # of Minutes Spent Total Time Spent with Patient: Total time spent is greater than 50% in coordination of care (as documented) at patient's floor/unit and/or counseling patient: Coding Level of Care Code 00433 SUB INP/OBS CARE 3/50MIN Diagnoses Acute kidney injury superimposed on stage 4 chronic kidney disease N17.9; N18.4 Hypokalemia E87.6 HTN (hypertension) I10 Hypertension type: unspecified Leukopenia D72.819 Leukopenia type: unspecified Ischemic bowel disease K55.9 Anemia D64.9 (3) HTN (hypertension) Hypertension type: unspecified Qualified Code(s): I10 - Essential (primary) hypertension (4) Leukopenia Leukopenia type: unspecified Qualified Code(s): D72.819 - Decreased white blood cell count, unspecified
[2024-05-07] MEDS: SODIUM CHLORIDE 0.9% 1,000 ML IV SCH (11:21)
--- NOTE | 2024-05-07 13:31 | Hospitalist Progress Note ---
Date of Service May 07, 2024 Assessment & Plan (1) Ischemia, bowel: Plan: Presented with abdominal pain and diffuse colonic pneumatosis seen on CT scan, ischemic colitis and Severe sepsis with septic shock, POA. Appreciate general surgery consultation and recommendations. She underwent total colectomy with ileostomy formation on April 27. Shewas in the ICU postoperatively -was on ventilator and pressor support x 5 days-now extubated 05/03 to [place] and weaned off of levophed/vasopressin/midodrine Currently out of the ICU Weaned off of IV hydrocortisone Off of octreotide and midodrine for hepatorenal syndrome Off of IV albumin Patient has significant ascites coming from CRIS drain/cirrhosis Pain control as needed Completed course of Zosyn Concern for blood in CRIS drain. H&H being monitored closely. Surgery on board. No surgical intervention recommended at this time Continue medical management (2) Acute kidney injury superimposed on stage 3b chronic kidney disease: Plan: Creatinine continues to rise. Baseline creatinine 1.8-2.2. Making urine. No metabolic acidosis or electrolyte imbalances to necessitate urgent dialysis Nephrology on board. Bumex discontinued Now started on a diet. Encourage p.o. fluid intake. Noted the patient has significantly more output than intake. She is net negative. She is very weak and is not able to drink fluids herself Started her on IV fluids today 05/07 Monitor closely. It Desktop Support Specialist has started talking to the patient's family about dialysis if renal function continues to deteriorate. She would not be the best candidate for dialysis given her age and comorbidities but family seems to be slightly unrealistic Hyponatremia now resolved UA with trace protein but no definite signs of infection, urine culture negative Follow urine output, BMP (3) Anemia: Plan: *Acute blood loss anemia With a history of anemia of chronic kidney disease as well as MGUS, EBL 500 mL from surgery, on Eliquis and given FFP preoperatively, 5 units PRBCs total post- op for hgb dropping to 5.5, and more FFP and cryoprecipitate on 05/02 She does have black liquid in colostomy bag now and bloody fluid in CRIS drain Monitor for further bleeding, follow CBC CT abdomen/pelvis on 05/02 does show some small areas of hemorrhage in the operative bed but no retroperitoneal hematoma General Surgery on board, keeping close eye on hemoglobin Eliquis is on hold (4) Diabetes mellitus type 2 in obese: Plan: Off of insulin drip Currently on subcu insulin (5) Cirrhosis: Plan: History of Rothman cirrhosis and portal hypertension. Supportive care. Serial labs Holding home propranolol, rifaximin, spironolactone, lactulose, furosemide With bloody ascites fluid coming from CRIS drain With hepatorenal syndrome as above With thrombocytopenia from cirrhosis and sepsis, TBili mildly elevated Follow CBC, CMP, INR (6) Chronic diastolic heart failure: Plan: Currently euvolemic, rather hypokalemic Discontinued IV Bumex. Will hydrate gently. Encourage p.o. fluid intake in the setting of EMY (7) HTN (hypertension): Plan: Oral antihypertensive medications are on hold. Now off pressor support Also with moderate aortic stenosis (8) PAF (paroxysmal atrial fibrillation): Plan: Remains in normal sinus rhythm here Eliquis on hold for bleeding and recent surgery Propranolol on hold (9) Hypothyroidism: Plan: TSH normal in 07/2023 continue IV levothyroxine every 72 hours until taking po (10) Obesity: Plan: Morbidly obese. BMI 48.8 ROSALES Plan DVT prophylaxis-SCDs GI prophylaxis-IV Protonix Admission and Anticipated Discharge Date Admission Date: April 27, 2024 Subjective I saw the patient at 10:20 AM. She is more awake and alert and able to hold a conversation. She is accompanied by her niece at the bedside. Overnight, the patient has been having increasing volumes of bloody fluid in her CRIS drain. Hemoglobin has been stable though. Hemodynamically stable. Review of Systems Review of Systems: All systems reviewed & are unremarkable except as noted in Subjective Physical Exam Physical Exam: General: Awake, conversant Heart: S1, S2/regular rate and rhythm, no murmur rubs or gallops Lungs: Clear to auscultation bilaterally. Normal effort Abdomen: Soft/nontender/nondistended. No hepatosplenomegaly. Colostomy bag has dark-colored liquid. CRIS drain has serosanguineous fluid, more bloody today Extremities: No clubbing/cyanosis. Leg edema improved bilaterally Behavior: Appropriate, cooperative Results & Data Results & Data Vital Signs (Past 12 Hours) Vital Signs Temp Pulse Pulse Resp BP BP Pulse Ox 05/07/24 11:26 36.7 C 72 19 149/82 H 95 05/07/24 08:00 05/07/24 07:15 75 18 150/80 H 99 05/07/24 03:08 82 22 92 05/07/24 02:45 36.4 C L 71 18 120/62 96 O2 Del Method O2 Flow Rate 05/07/24 11:26 Nasal Cannula 2.0 05/07/24 08:00 Nasal Cannula 2 05/07/24 07:15 BiPAP 05/07/24 03:08 2 05/07/24 02:45 CPAP PG Care Time/CCT Total # of Minutes Spent Total Time Spent with Patient: Total time spent is greater than 50% in coordination of care (as documented) at patient's floor/unit and/or counseling patient: Coding Level of Care Code 81145 SUB INP/OBS CARE 2/35MIN Diagnoses Ischemia, bowel K55.9 Acute kidney injury superimposed on stage 3b chronic kidney disease N17.9; N18.32 Anemia D64.9 Anemia type: unspecified type Diabetes mellitus type 2 in obese E11.69; E66.9 Cirrhosis K74.60 Chronic diastolic heart failure I50.32 HTN (hypertension) I10 Hypertension type: unspecified PAF (paroxysmal atrial fibrillation) I48.0 Hypothyroidism E03.9 Obesity E66.9 (3) Anemia Anemia type: unspecified type Qualified Code(s): D64.9 - Anemia, unspecified (7) HTN (hypertension) Hypertension type: unspecified Qualified Code(s): I10 - Essential (primary) hypertension
--- NOTE | 2024-05-07 14:26 | Pharmacy Report ---
Pharmacy Glycemic Short Note 2 - Date of Service May 07, 2024 - Glycemic Short BSG Results (Last 24 hours): 05/06/24 05/06/24 05/07/24 16:13 19:54 07:19 Glucose 95 POC Glucose 164 H 158 H 05/07/24 05/07/24 07:27 11:15 Glucose POC Glucose 89 125 H OUTPATIENT ANTIDIABETIC REGIMEN: * Lantus 7 units SC AM * Novolog 5 units SC BID with meals * HbA1c = 8.2% on 02/17/24 ASSESSMENT: 05/07: * Patient received total 24 units of insulin yesterday, of which 15 units were basal insulin * IV hydrocortisone d/c this AM, no further steroids ordered * Fasting BSG 89 mg/dL - kidney function continues to decline, urine output decreasing * Lunch BSG stable, will continue with only novolog today - could consider small dose of basal insulin tomorrow AM if AM fasting elevated 05/06: * Rosalind recieved 22 units of insulin yesterday (15 were basal) * Diet advanced to T2DM yesterday with lunch, fasting BSG within goal range, additional IV hydrocortisone 50mg Q24H added times two doses. Continue current basal regimen with hydrocortisone tomorrow. * BSGs trend up at lunchtime, tighten carbohydrate ratio slightly 05/03: * BSGs within goal the last 24h. Drip stable at 2 unit/hr. * Extubated today (tube feeds off, awaiting swallow eval). Vasopressors weaned. Hydrocortisone taper initiated (50mg IV q12h X 2 days followed by 50mg daily X 2 days). * Plan for SQ transition per database programmer analyst. Will begin Lantus 10 units SQ X 1 now and overlap with the drip ~ 2h prior to discontinuation. Plan for an HS lantus scale depending on BSG. Novolog q6 . 05/02: * Day #4 of insulin drip. Currently running at 2 units/hr. Most recent BSG was 187 mg/dL. * Remains intubated and sedated. Hydrocortisone IV is being tapered, on day #2 of 50 mg q8h. Continues on Zosyn. Norepinephrine is off and only running vasop ressin. Peptamen 1.5 sammy is running at trickle rate (10 mL/hr). Urine output has improved today. * Plan to continue drip until patient is off all pressors. 04/29: * Rosalind received 11 units of insulin yesterday, all bolus. BSGs were: [phone] mg/dL. * Fasting BSG this AM was 238 mg/dL, above goal. Remains on Levophed and Vasopressin. Due to significant acidosis, patient was started on Bicarb drip mixed in Sterile Water. Remains NPO. Started on Hydrocortisone IV as well (100 mg x 1 then 50 mg q6h). * Due to pressor requirements as well as addition of steroids, will transition patient from subcutaneous insulin to an IV insulin drip. Per database programmer analyst, this drip will be based on hyperglycemia protocol; however, if urine ketones return positive, then will transition drip to DKA protocol. No bolus required. 04/28: * 78 y/o F admitted for ischemic bowel s/p resection on 04/27. Patient has history of Type 2 diabetes on low doses of basal and bolus insulins at home. * Also with history of CKD stage 3. * Post op yesterday patient needed pressure support. Currently intubated and on vasopressors. Pharmacy glycemic consult initiated due to higher blood sugars. * Novolog was started yesterday with stress of 1 parameters and goal range of 140-180 mg/dl. Blood sugars currently being checked q4h and reasonably stable around 200 mg/dl. PLAN FOR INPATIENT GLYCEMIC CONTROL: * Basal insulin * Lantus - hold * Bolus insulin * NovoLog per scale q6h while NPO * Goal Range: Low 110 mg/dL - High 140 mg/dL * Correction Factor: 25 mg/dL/unit * Nutritional / Prandial insulin per carb ratio of 1 unit per 15 grams CHO consumed
[2024-05-07 23:03] LABS: Hemoglobin 8.6 g/dl (12.0-16.0)
[2024-05-08 06:28] LABS: Basophils # (auto) 0.01 K/uL (0.00-0.20); Basophils % (auto) 0.1 %; Eosinophils # (auto) 0.12 K/uL (0.00-0.50); Eosinophils % (auto) 1.3 %; Hematocrit (blood only) 24.4 % (37.0-47.0); Hemoglobin 8.2 g/dl (12.0-16.0); Immature Granulocytes # (auto) 0.06 K/uL (0.01-0.20); Immature Granulocytes % (auto) 0.6 %; Lymphocytes # (auto) 0.72 K/uL (1.20-3.40); Lymphocytes % (auto) 7.5 %; Mean Corpuscular Hemoglobin 28.7 pg (25.0-34.0); Mean Corpuscular Hgb Conc 33.6 g/dL (32.0-36.0); Mean Corpuscular Volume 85.3 fL (80.0-100.0); Mean Platelet Volume 11.4 fL (9.4-12.4); Monocytes # (auto) 0.55 K/uL (0.11-0.59); Monocytes % (auto) 5.7 %; Neutrophils # (auto) 8.12 K/uL (1.40-6.50); Neutrophils % (auto) 84.8 %; Platelet Count 81 K/uL (130-400); RDW Coefficient of Variation 18.6 % (11.5-14.5); RDW Standard Deviation 57.3 fL (36.4-46.3); Red Blood Count 2.86 M/uL (4.20-5.40); White Blood Count 9.58 K/ul (4.8-10.8)
--- NOTE | 2024-05-08 07:57 | Surgery Progress Note ---
Date of Service May 08, 2024 Assessment & Plan (1) Ischemic bowel disease: Plan: status post subtotal colectomy with end ileostomy on 04/27 WBC 9, Hbg stable at 8.2. Vitals stable On a diet without issues CRIS drain site this AM more serosang in nature (blood tinged ascites) Ileostomy is functioning with soft stool in bag Midline incision saturated this AM with serosang drainage, will up dressing changes to at least BID Continue to encourage ambulation/OOB to chair and pulmonary toilet Appreciate hospitalists/nephrology team assistance with patient Plan Patient is alert coherent without any complaints The abdomen is benign midline incision intact with minimal drainage at the [place] exit sites dionne intact Ileostomy with good output soft stool Drainage from the left lower quadrant Juvenal site decreasing Renal function slightly improved with fluid replacement As per [place] Nena Pastor physician academic support assistant Admission and Anticipated Discharge Date Admission Date: April 27, 2024 Subjective Pt feeling okay this AM. Said she have a wave of pain in her abdomen recently, but it has since passed and she feels well. Tolerating food. No n/v. Physical Exam Physical Exam: awake, no distress Gastrointestinal (Abdomen): Percussion/Palpation: + abdomen tender (expected ebenezer incisional discomfort) and abdomen soft Ileostomy with soft stool noted in bag. old CRIS drain site draining serosang output. midline incision with dionne and serosang drainage on dressing (was changed) Results & Data Vital Signs (Past 12 Hours) Vital Signs Temp Pulse Pulse Resp BP BP Pulse Ox 05/08/24 07:22 66 05/08/24 07:19 97.3 F L 75 18 100/66 100 05/08/24 03:54 71 25 H 98 05/08/24 03:19 98.4 F 70 18 124/78 97 05/08/24 00:00 72 05/07/24 23:17 97.9 F 77 18 125/76 97 05/07/24 22:43 75 22 99 05/07/24 20:00 O2 Del Method O2 Flow Rate 05/08/24 07:22 05/08/24 07:19 BiPAP 05/08/24 03:54 2 05/08/24 03:19 CPAP 05/08/24 00:00 05/07/24 23:17 CPAP 05/07/24 22:43 2 05/07/24 20:00 Nasal Cannula 2 PG Care Time/CCT Total # of Minutes Spent Total Time Spent with Patient: Total time spent is greater than 50% in coordination of care (as documented) at patient's floor/unit and/or counseling patient: Coding Level of Care Code 69750 Post Operative Follow-Up Diagnoses Ischemic bowel disease K55.9
[2024-05-08 08:22] LABS: Ferritin 60.6 ng/ml (8-388)
--- NOTE | 2024-05-08 08:35 | Hospitalist Progress Note ---
Date of Service May 08, 2024 Assessment & Plan (1) Ischemia, bowel: Plan: Presented with abdominal pain and diffuse colonic pneumatosis seen on CT scan, ischemic colitis and Severe sepsis with septic shock, POA. general surgery-> underwent total colectomy with ileostomy formation on April 27. Shewas in the ICU postoperatively -was on ventilator and pressor support x 5 days- extubated 05/03 to [place] and weaned off of levophed/vasopressin/midodrine Off of octreotide and midodrine for hepatorenal syndrome Patient has significant bloodly ascites coming from CRIS drain/cirrhosis Pain control as needed Completed course of Zosyn *Acute blood loss anemia (2) Acute kidney injury superimposed on stage 3b chronic kidney disease: Plan: Creatinine continues to rise. Baseline creatinine 1.8-2.2. Making urine. significantly more output than intake. She is net negative. No metabolic acidosis or electrolyte imbalances to necessitate urgent dialysis Nephrology on board. Bumex discontinued Now started on a diet. Encourage p.o. fluid intake. Started her on IV fluids 05/07, improvement of Cr (3) Anemia: Plan: With a history of anemia of chronic kidney disease as well as MGUS, EBL 500 mL from surgery, on Eliquis and given FFP preoperatively, 5 units PRBCs total post- op for hgb dropping to 5.5, and more FFP and cryoprecipitate on 05/02 CT abdomen/pelvis on 05/02 does show some small areas of hemorrhage in the operative bed but no retroperitoneal hematoma General Surgery on board, keeping close eye on hemoglobin Eliquis is on hold (4) Cirrhosis: Plan: History of Rothman cirrhosis and portal hypertension. Holding home propranolol, rifaximin, spironolactone, lactulose, furosemide With bloody ascites fluid coming from CRIS drain With thrombocytopenia from cirrhosis and sepsis, TBili mildly elevated (5) Chronic diastolic heart failure: Plan: Currently euvolemic Discontinued IV Bumex in face of EMY Will hydrate gently. Encourage p.o. fluid intake in the setting of EMY PAF/HTN/- meds on hold with lower blood pressure and renal failure Plan Diabetes on basal bolus insulin Morbid obesity BMI 48.8 hypothyroidism stable on renal dose iv replacement DVT prophylaxis-SCDs GI prophylaxis-IV Protonix with complete colectomy volume maybe difficult to keep up, will continue to encourage po anticipate need for post dischage nursing care in a facility with new ostomy and need to asses dehydration and diastolic heart failure Admission and Anticipated Discharge Date Admission Date: April 27, 2024 Subjective pt seen with her brother in the room she offers no immediate concerns eating and ostomy is functioning, midline wound with slight dehiscence and left lower abd drain with drainage Physical Exam Physical Exam: awake and alert abd with bowel sounds present ostomy with brown stool Results & Data Results & Data Vital Signs (Past 12 Hours) Vital Signs Temp Pulse Pulse Resp BP BP Pulse Ox 05/08/24 07:22 66 05/08/24 07:19 97.3 F L 75 18 100/66 100 05/08/24 03:54 71 25 H 98 05/08/24 03:19 98.4 F 70 18 124/78 97 05/08/24 00:00 72 05/07/24 23:17 97.9 F 77 18 125/76 97 05/07/24 22:43 75 22 99 O2 Del Method O2 Flow Rate 05/08/24 07:22 05/08/24 07:19 BiPAP 05/08/24 03:54 2 05/08/24 03:19 CPAP 05/08/24 00:00 05/07/24 23:17 CPAP 05/07/24 22:43 2 Laboratory Results reviewed cbc reviewed chemistry review iron studies review LFT's PG Care Time/CCT Total # of Minutes Spent Total Time Spent with Patient: Total time spent is greater than 50% in coordination of care (as documented) at patient's floor/unit and/or counseling patient: Coding Level of Care Code 62842 SUB INP/OBS CARE 3/50MIN Diagnoses Ischemia, bowel K55.9 Acute kidney injury superimposed on stage 3b chronic kidney disease N17.9; N18.32 Anemia D64.9 Anemia type: unspecified type Cirrhosis K74.60 Chronic diastolic heart failure I50.32 (3) Anemia Anemia type: unspecified type Qualified Code(s): D64.9 - Anemia, unspecified
[2024-05-08 08:57] LABS: Bilirubin,Total 1.7 mg/dl (0.2-1.0); Calcium 7.9 mg/dl (8.6-10.3); Potassium 4.1 mmol/L (3.5-5.1)
[2024-05-08 09:03] LABS: Albumin Globulin Ratio 2.1 (0.9-2); BUN Creatinine Ratio 30.1 (10-20); Creatinine Clr Calc Pharmacy 14.3 ml/min; Globulin 1.4 gm/dl (2.5-4.0); Total Protein 4.4 gm/dl (6.0-8.3)
--- NOTE | 2024-05-08 09:45 | Nephrology Progress Note ---
Date of Service May 08, 2024 Assessment & Plan (1) Acute kidney injury superimposed on stage 4 chronic kidney disease: (2) Hypokalemia: (3) HTN (hypertension): (4) Leukopenia: (5) Ischemic bowel disease: (6) Anemia: Plan 78-year-old female with a complex past medical history admitted to the hospital with abdominal pain and found to have ischemic bowel status post laparotomy cystectomy and bowel resection and ileostomy. Has stage IIIb CKD baseline creatinine around 1.6-1.8 mg/dl during history of repeated episodes of EMY. Developed EMY with oliguria but urine output started to improve. Has been off of pressor and blood pressure actually running high. Kidney function started to improve, creatinine down to 4.2 mg/dl and overall net positive with improvement in urine output. --encourage po intake as she is able to eat and drink and feels thirsty. --No indication for dialysis at this time, had detailed discussion yesterday with Rosalind and her family that if kidney function decline again she would not be a great candidate for dialysis and it will not provide any quality of life as it will be probably a ongoing event for her. Encouraged to think about it and make decision. Admission and Anticipated Discharge Date Admission Date: April 27, 2024 Subjective Rosalind was seen this morning with family at bedside. She reports overall feeling better, denies any shortness of breath, fever, chills. Denies significant abdominal pain. Has been trying to increase fluid intake. Has been on IV fluids since yesterday, urine output improved, more than a liter over last 24 hours. Kidney function was started to improve, creatinine down to 3.6 mg/dl, electrolyte acceptable. Review of Systems Review of Systems: Detail review of system was unremarkable except mentioned above. Physical Exam Constitutional: WD/WN, vitals as above + ill appearing and + morbidly obese; no acute distress Respiratory: no respiratory distress Auscultation: + diminished lung sounds Cardiovascular: Rate/Rhythm: regular rate and regular rhythm Extremities: + edema Skin: no rashes, warm and dry Neurologic: awake; no focal motor deficits and not confused Psychiatric: Orientation: alert and oriented x 3 Results & Data Vital Signs (Past 12 Hours) Vital Signs Temp Pulse Pulse Resp BP BP Pulse Ox 05/08/24 07:22 66 05/08/24 07:19 36.3 C L 75 18 100/66 100 05/08/24 03:54 71 25 H 98 05/08/24 03:19 36.9 C 70 18 124/78 97 05/08/24 00:00 72 05/07/24 23:17 36.6 C 77 18 125/76 97 05/07/24 22:43 75 22 99 O2 Del Method O2 Flow Rate 05/08/24 07:22 05/08/24 07:19 BiPAP 05/08/24 03:54 2 05/08/24 03:19 CPAP 05/08/24 00:00 05/07/24 23:17 CPAP 05/07/24 22:43 2 PG Care Time/CCT Total # of Minutes Spent Total Time Spent with Patient: Total time spent is greater than 50% in coordination of care (as documented) at patient's floor/unit and/or counseling patient: Coding Level of Care Code 38983 SUB INP/OBS CARE 2/35MIN Diagnoses Acute kidney injury superimposed on stage 4 chronic kidney disease N17.9; N18.4 Hypokalemia E87.6 HTN (hypertension) I10 Hypertension type: unspecified Leukopenia D72.819 Leukopenia type: unspecified Ischemic bowel disease K55.9 Anemia D64.9 (3) HTN (hypertension) Hypertension type: unspecified Qualified Code(s): I10 - Essential (primary) hypertension (4) Leukopenia Leukopenia type: unspecified Qualified Code(s): D72.819 - Decreased white blood cell count, unspecified
[2024-05-08] MEDS: EPOETIN ALFA 20,000 UNITS/ML VIAL IV SCH (11:17)
[2024-05-09 06:43] LABS: Eosinophils # (auto) 0.25 K/uL (0.00-0.50); Eosinophils % (auto) 2.1 %; Hemoglobin 9.1 g/dl (12.0-16.0); Immature Granulocytes # (auto) 0.08 K/uL (0.01-0.20); Immature Granulocytes % (auto) 0.7 %; Lymphocytes # (auto) 0.67 K/uL (1.20-3.40); Lymphocytes % (auto) 5.7 %; Mean Corpuscular Hgb Conc 33.7 g/dL (32.0-36.0); Mean Platelet Volume 11.1 fL (9.4-12.4); Monocytes # (auto) 0.59 K/uL (0.11-0.59); Neutrophils # (auto) 10.14 K/uL (1.40-6.50); Neutrophils % (auto) 86.5 %; Platelet Count 96 K/uL (130-400); RDW Standard Deviation 58.5 fL (36.4-46.3); Red Blood Count 3.14 M/uL (4.20-5.40); White Blood Count 11.73 K/ul (4.8-10.8)
[2024-05-09 07:01] LABS: Albumin Globulin Ratio 1.7 (0.9-2); Albumin Level 2.7 gm/dl (3.4-5.0); BUN Creatinine Ratio 30.2 (10-20); Bilirubin,Total 1.7 mg/dl (0.2-1.0); Calcium 7.7 mg/dl (8.6-10.3); Creatinine Clr Calc Pharmacy 16.2 ml/min; Globulin 1.6 gm/dl (2.5-4.0); Potassium 4.3 mmol/L (3.5-5.1); Total Protein 4.3 gm/dl (6.0-8.3)
[2024-05-09] MEDS: LANTUS PER UNIT CHARGE SC SCH (08:58)
--- NOTE | 2024-05-09 10:40 | Nephrology Progress Note ---
Date of Service May 09, 2024 Assessment & Plan (1) Acute kidney injury superimposed on stage 4 chronic kidney disease: (2) Hypokalemia: (3) HTN (hypertension): (4) Leukopenia: (5) Ischemic bowel disease: (6) Anemia: Plan 78-year-old female with a complex past medical history admitted to the hospital with abdominal pain and found to have ischemic bowel status post laparotomy cystectomy and bowel resection and ileostomy. Has stage IIIb CKD baseline creatinine around 1.6-1.8 mg/dl during history of repeated episodes of EMY. Developed EMY with oliguria but urine output started to improve. Kidney function started to improve. Hemoglobin was low, received Epogen 20,000 units on 05/08/2024. TSAT 35, ferritin slightly low. Kidney function started to improve, creatinine down to 3.2 mg/dl and overall net positive with improvement in urine output. --encourage po intake as she is able to eat and drink and feels thirsty. --Discontinue IV fluid after finishing current bag --Continue to monitor kidney function and electrolyte, accurate intake and output. -- Received Epogen 20,000 units on 05/08/2024. Admission and Anticipated Discharge Date Admission Date: April 27, 2024 Alfredito Boyer was seen in her room this morning. Overall looks like she is doing better, she is sitting up and trying to feed herself. Denied any specific symptoms. No shortness of breath. Urine output improved, overall net positive. Blood pressure improved. Kidney function continues to improve, creatinine down to 3.2. Hemoglobin improved to 9.2. Review of Systems Review of Systems: Detail review of system was unremarkable except mentioned above. Physical Exam Constitutional: WD/WN, vitals as above + ill appearing and + morbidly obese; no acute distress Respiratory: no respiratory distress Auscultation: + diminished lung sounds Cardiovascular: Rate/Rhythm: regular rate and regular rhythm Extremities: + edema Skin: no rashes, warm and dry Neurologic: awake; no focal motor deficits and not confused Psychiatric: Orientation: alert and oriented x 3 Results & Data Vital Signs (Past 12 Hours) Vital Signs Temp Pulse Pulse Resp BP BP Pulse Ox 05/09/24 08:16 67 05/09/24 08:16 05/09/24 07:53 36.6 C 73 20 124/70 100 05/09/24 03:35 85 17 97 05/09/24 03:08 36.7 C 74 20 129/79 100 05/08/24 23:53 36.5 C 76 19 133/74 99 05/08/24 23:38 71 O2 Del Method O2 Flow Rate 05/09/24 08:16 05/09/24 08:16 Nasal Cannula 2 05/09/24 07:53 Nasal Cannula 2 05/09/24 03:35 2 05/09/24 03:08 BiPAP 05/08/24 23:53 BiPAP 05/08/24 23:38 PG Care Time/CCT Total # of Minutes Spent Total Time Spent with Patient: Total time spent is greater than 50% in coordination of care (as documented) at patient's floor/unit and/or counseling patient: Coding Level of Care Code 59488 SUB INP/OBS CARE MIN Diagnoses Acute kidney injury superimposed on stage 4 chronic kidney disease N17.9; N18.4 Hypokalemia E87.6 HTN (hypertension) I10 Hypertension type: unspecified Leukopenia D72.819 Leukopenia type: unspecified Ischemic bowel disease K55.9 Anemia D64.9 (3) HTN (hypertension) Hypertension type: unspecified Qualified Code(s): I10 - Essential (primary) hypertension (4) Leukopenia Leukopenia type: unspecified Qualified Code(s): D72.819 - Decreased white blood cell count, unspecified
--- NOTE | 2024-05-09 10:51 | Surgery Progress Note ---
Date of Service May 09, 2024 Assessment & Plan (1) Ischemic bowel disease: Plan: Patient postoperative day subtotal colectomy with end ileostomy for ischemic bowel Last few days the patient was made significant progress yesterday she was alert coherent respond appropriately verbally to questions this morning regarding up with increased creatinine showed parameters including Her hemoglobin actually 9.1 which is improved Continue with nutritional support by encouraging oral intake Admission and Anticipated Discharge Date Admission Date: April 27, 2024 Subjective Patient sleeping with CPAP Physical Exam Physical Exam: The abdomen not distended ileostomy good output Juvenal drain site in left lower quadrant some drainage appears to be slowing down, both thighs show fluid overloaded Lynn bag with clear urine Results & Data Vital Signs (Past 12 Hours) Vital Signs Temp Pulse Pulse Resp BP BP Pulse Ox 05/09/24 08:16 67 05/09/24 08:16 05/09/24 07:53 36.6 C 73 20 124/70 100 05/09/24 03:35 85 17 97 05/09/24 03:08 36.7 C 74 20 129/79 100 05/08/24 23:53 36.5 C 76 19 133/74 99 05/08/24 23:38 71 O2 Del Method O2 Flow Rate 05/09/24 08:16 05/09/24 08:16 Nasal Cannula 2 05/09/24 07:53 Nasal Cannula 2 05/09/24 03:35 2 05/09/24 03:08 BiPAP 05/08/24 23:53 BiPAP 05/08/24 23:38 Laboratory Results Creatinine proving urine output improving
--- NOTE | 2024-05-09 16:18 | Hospitalist Progress Note ---
Date of Service May 09, 2024 Assessment & Plan (1) Ischemia, bowel: Plan: Presented with abdominal pain and diffuse colonic pneumatosis seen on CT scan, ischemic colitis and Severe sepsis with septic shock, POA. general surgery-> underwent total colectomy with ileostomy formation on April 27. Shewas in the ICU postoperatively -was on ventilator and pressor support x 5 days- extubated 05/03 to OR and weaned off of levophed/vasopressin/midodrine Off of octreotide and midodrine for hepatorenal syndrome ascites persists bloody at times Pain control as needed Completed course of Zosyn *Acute blood loss anemia with c/o bilateral calf pain will have doppler and start heparin sc cautiously as hgb has been stable of late (2) Acute kidney injury superimposed on stage 3b chronic kidney disease: Plan: Creatinine continues to rise. Baseline creatinine 1.8-2.2. Making urine. significantly more output than intake. She is net negative. No metabolic acidosis or electrolyte imbalances to necessitate urgent dialysis Nephrology on board. Bumex discontinued Now started on a diet. Encourage p.o. fluid intake. Started her on IV fluids 05/07, improvement of Cr (3) Anemia: Plan: With a history of anemia of chronic kidney disease as well as MGUS, EBL 500 mL from surgery, on Eliquis and given FFP preoperatively, 5 units PRBCs total post- op for hgb dropping to 5.5, and more FFP and cryoprecipitate on 05/02 CT abdomen/pelvis on 05/02 does show some small areas of hemorrhage in the operative bed but no retroperitoneal hematoma General Surgery on board, keeping close eye on hemoglobin Eliquis is on hold (4) Cirrhosis: Plan: History of Rothman cirrhosis and portal hypertension. Holding home propranolol, rifaximin, spironolactone, lactulose, furosemide With bloody ascites fluid coming from CRIS drain With thrombocytopenia from cirrhosis and sepsis, TBili mildly elevated (5) Chronic diastolic heart failure: Plan: Currently euvolemic Discontinued IV Bumex in face of EMY Will hydrate gently. Encourage p.o. fluid intake in the setting of EMY PAF/HTN/- meds on hold with lower blood pressure and renal failure Plan Diabetes on basal bolus insulin Morbid obesity BMI 48.8 hypothyroidism stable on renal dose iv replacement DVT prophylaxis-SCDs GI prophylaxis-IV Protonix with complete colectomy volume maybe difficult to keep up, will continue to encourage po anticipate need for post dischage nursing care in a facility with new ostomy and need to asses dehydration and diastolic heart failure Admission and Anticipated Discharge Date Admission Date: April 27, 2024 Subjective Pt seen in the company of her malika, has some lower leg pain starting to take po better still with ascitic drainage llq drain Physical Exam Physical Exam: awake and alert abd with bowel sounds present ostomy with brown stool , left drain with dark ascites Results & Data Results & Data Vital Signs (Past 12 Hours) Vital Signs Temp Pulse Pulse Resp BP Pulse Ox O2 Del Method 05/09/24 16:00 97.9 F 80 14 110/71 100 Nasal Cannula 05/09/24 08:16 67 05/09/24 08:16 Nasal Cannula 05/09/24 07:53 97.9 F 73 20 124/70 100 Nasal Cannula O2 Flow Rate 05/09/24 16:00 2 05/09/24 08:16 05/09/24 08:16 2 05/09/24 07:53 2 Laboratory Results review cbc review chemistry all orders and meds reviewed for transfer PG Care Time/CCT Total # of Minutes Spent Total Time Spent with Patient: Total time spent is greater than 50% in coordination of care (as documented) at patient's floor/unit and/or counseling patient: Coding Level of Care Code 89259 SUB INP/OBS CARE 3/50MIN Diagnoses Ischemia, bowel K55.9 Acute kidney injury superimposed on stage 3b chronic kidney disease N17.9; N18.32 Anemia D64.9 Anemia type: unspecified type Cirrhosis K74.60 Chronic diastolic heart failure I50.32 (3) Anemia Anemia type: unspecified type Qualified Code(s): D64.9 - Anemia, unspecified
[2024-05-09] MEDS ORDERED: ENOXAPARIN INJ 30 MG/0.3 ML SYR SQ SCH (19:00)
[2024-05-09] MEDS: HEPARIN SOD 5,000 UNIT/0.5 ML VIAL SQ SCH (21:16)
--- NOTE | 2024-05-10 00:21 | Ultrasound Report ---
Exam(s): US VENOUS BILATERAL LOWER EXTREMITIES EXAM: US Duplex Bilateral Lower Extremities Veins CLINICAL HISTORY: Reason for exam: post op calf pain. TECHNIQUE: Real-time duplex ultrasound scan of the bilateral lower extremity veins integrating B-mode two-dimensional vascular structure, Doppler spectral analysis, color flow Doppler imaging and compression. COMPARISON: 06/19/2023 FINDINGS: Right deep veins: Thrombus detected in the distal right popliteal vein.. No DVT in the right common femoral, or femoral, proximal deep femoral veins. The right calf veins limitedly visualized due to patient's large body habitus and also due to edema/swelling of the lower extremity. Right superficial veins: Unremarkable. No thrombus in the visualized right great saphenous vein. Left deep veins: There is likely a chronic nonocclusive thrombosis of the left popliteal vein.. No DVT in the left common femoral or femoral, proximal deep femoral veins. Left superficial veins: Unremarkable. No thrombus in the visualized left great saphenous vein. Soft tissues: No popliteal cyst.. IMPRESSION: Right lower extremity: DVT in the distal right popliteal vein. 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 . Electronically signed by: Freda Wahl MD, KEITHR 05/10/24 00:20 AM
--- NOTE | 2024-05-10 00:46 | Communication Note ---
Date of Service: May 10, 2024 Notified by nursing staff that patient had venous duplex of bilateral lower extremities and results were available. The results showed evidence of DVT in distal right popliteal vein and left LE showed likely chronic nonocclusive DVT n left popliteal vein. Upon chart review, patient noted to have bilateral calf pain and Eliquis has been held as of late due to acute blood loss anemia, however subcutaneous heparin was started on evening on 05/09. Considering complex clinical picture, upon discussion with attending physician it was decided that it was not appropriate to start therapeutic heparin at this time. Could consider vascular consult for consideration of IVC filter. Resident Activity Tracking Resident Involvement: Resident Care Provided Care Provided: Adult Hospital Medicine
[2024-05-10 08:36] LABS: Albumin Globulin Ratio 1.6 (0.9-2); Albumin Level 2.6 gm/dl (3.4-5.0); BUN Creatinine Ratio 33.2 (10-20); Bilirubin,Total 1.4 mg/dl (0.2-1.0); Calcium 7.8 mg/dl (8.6-10.3); Creatinine Clr Calc Pharmacy 19.9 ml/min; Globulin 1.6 gm/dl (2.5-4.0); Potassium 4.2 mmol/L (3.5-5.1); Total Protein 4.2 gm/dl (6.0-8.3)
--- NOTE | 2024-05-10 09:04 | Surgery Progress Note ---
Date of Service May 10, 2024 Assessment & Plan (1) Ischemic bowel disease: Plan: Every other staple abdominal incision was removed a Q-tip the upper portion of the fascia appears intact The patient is made good progress in the last few days especially her renal function is improved Plan Encourage activity and oral intake I would expect the ascitic fluid to decrease once once her fluid status normalizes Dr. Juvenal Marcus covering the weekend first thing Admission and Anticipated Discharge Date Admission Date: April 27, 2024 Subjective Denies any abdominal pain has not been out of bed yet she just finished eating breakfast Physical Exam Physical Exam: Alert coherent no distress Sclera nonicteric Lungs no audible wheezing or rails Abdomen benign midline incision has some reaction to the dionne some drainage no odor appreciated ileostomy with good output the Juvenal drain left lower quadrant 350 cc ascitic fluid slight blood-tinged since midnight Extremity less edema appreciated Urine output clear 400 cc in last 6 hours Results & Data Vital Signs (Past 12 Hours) Vital Signs Temp Pulse Pulse Resp BP BP Pulse Ox 05/10/24 08:08 05/10/24 07:07 36.4 C L 78 16 149/65 H 99 05/10/24 04:00 16 05/09/24 23:33 71 27 H 100 05/09/24 22:22 36.6 C 77 20 131/69 100 05/09/24 22:21 O2 Del Method O2 Flow Rate 05/10/24 08:08 Room Air 05/10/24 07:07 Nasal Cannula 2 05/10/24 04:00 2 05/09/24 23:33 2 05/09/24 22:22 Nasal Cannula 3 05/09/24 22:21 Nasal Cannula 3 Laboratory Results Creatinine 4.59 down from 2.18 yesterday Albumin 2.6
--- NOTE | 2024-05-10 10:01 | Nephrology Progress Note ---
Date of Service May 10, 2024 Assessment & Plan (1) Acute kidney injury superimposed on stage 4 chronic kidney disease: (2) Hypokalemia: (3) HTN (hypertension): (4) Leukopenia: (5) Ischemic bowel disease: (6) Anemia: Plan 78-year-old female with a complex past medical history admitted to the hospital with abdominal pain and found to have ischemic bowel status post laparotomy cystectomy and bowel resection and ileostomy. Has stage IIIb CKD baseline creatinine around 1.6-1.8 mg/dl during history of repeated episodes of EMY. Developed EMY with oliguria but urine output started to improve. Kidney function started to improve. Hemoglobin was low, received Epogen 20,000 units on 05/08/2024. TSAT 35, ferritin slightly low. Kidney function continues to improve, creatinine down to 2.6 mg/dl and overall net positive with improvement in urine output. --Discontinue IV fluid, encourage po intake as she is able to eat and drink and feed herself. --Continue to monitor kidney function and electrolyte, accurate intake and output. Expect kidney function to continue to improve --Received Epogen 20,000 units on 05/08/2024. Will sign off and keep f/u at CKD clinic as currently scheduled. Admission and Anticipated Discharge Date Admission Date: April 27, 2024 Alfredito Boyer was seen in her room this morning. She is doing better, able to feed herself. Denied any specific symptoms. No shortness of breath. Urine output improved, overall net positive. Blood pressure improved. Kidney function continues to improve, creatinine down to 2.6. Hemoglobin stable. BP fair. Review of Systems Review of Systems: Detail review of system was unremarkable except mentioned above. Physical Exam Constitutional: WD/WN, vitals as above + ill appearing and + morbidly obese; no acute distress Respiratory: no respiratory distress Auscultation: + diminished lung sounds Cardiovascular: Rate/Rhythm: regular rate and regular rhythm Extremities: + edema Skin: no rashes, warm and dry Neurologic: awake; no focal motor deficits and not confused Psychiatric: Orientation: alert and oriented x 3 Results & Data Vital Signs (Past 12 Hours) Vital Signs Temp Pulse Pulse Resp BP BP Pulse Ox 05/10/24 08:08 05/10/24 07:07 36.4 C L 78 16 149/65 H 99 05/10/24 04:00 16 05/09/24 23:33 71 27 H 100 05/09/24 22:22 36.6 C 77 20 131/69 100 05/09/24 22:21 O2 Del Method O2 Flow Rate 05/10/24 08:08 Room Air 05/10/24 07:07 Nasal Cannula 2 05/10/24 04:00 2 05/09/24 23:33 2 05/09/24 22:22 Nasal Cannula 3 05/09/24 22:21 Nasal Cannula 3 PG Care Time/CCT Total # of Minutes Spent Total Time Spent with Patient: Total time spent is greater than 50% in coordination of care (as documented) at patient's floor/unit and/or counseling patient: Coding Level of Care Code 39986 SUB INP/OBS CARE 2/35MIN Diagnoses Acute kidney injury superimposed on stage 4 chronic kidney disease N17.9; N18.4 Hypokalemia E87.6 HTN (hypertension) I10 Hypertension type: unspecified Leukopenia D72.819 Leukopenia type: unspecified Ischemic bowel disease K55.9 Anemia D64.9 (3) HTN (hypertension) Hypertension type: unspecified Qualified Code(s): I10 - Essential (primary) hypertension (4) Leukopenia Leukopenia type: unspecified Qualified Code(s): D72.819 - Decreased white blood cell count, unspecified
[2024-05-10 10:16] LABS: Hematocrit (blood only) 28.7 % (37.0-47.0); Hemoglobin 9.3 g/dl (12.0-16.0); Mean Corpuscular Hemoglobin 28.4 pg (25.0-34.0); Mean Corpuscular Hgb Conc 32.4 g/dL (32.0-36.0); Mean Corpuscular Volume 87.8 fL (80.0-100.0); Mean Platelet Volume 10.9 fL (9.4-12.4); Platelet Count 117 K/uL (130-400); RDW Coefficient of Variation 19.5 % (11.5-14.5); RDW Standard Deviation 60.5 fL (36.4-46.3); Red Blood Count 3.27 M/uL (4.20-5.40); White Blood Count 11.24 K/ul (4.8-10.8)
--- NOTE | 2024-05-10 13:05 | Pharmacy Report ---
Pharmacy Glycemic Short Note 2 - Date of Service May 10, 2024 - Glycemic Short BSG Results (Last 24 hours): 05/09/24 05/09/24 05/10/24 16:16 21:04 07:14 Glucose POC Glucose 183 H 125 H 98 05/10/24 05/10/24 07:50 11:35 Glucose 106 H POC Glucose 167 H OUTPATIENT ANTIDIABETIC REGIMEN: * Lantus 7 units SC AM * Novolog 5 units SC BID with meals * HbA1c = 8.2% on 02/17/24 ASSESSMENT: 05/10: * Patient received total of 9 units of insulin yesterday, of which 3 units were basal * Fasting BSG 98 mg/dL - will hold basal today as very minimal PO intake yesterday * No change to CF/CR 05/07: * Patient received total 24 units of insulin yesterday, of which 15 units were basal insulin * IV hydrocortisone d/c this AM, no further steroids ordered * Fasting BSG 89 mg/dL - kidney function continues to decline, urine output decreasing * Lunch BSG stable, will continue with only novolog today - could consider small dose of basal insulin tomorrow AM if AM fasting elevated 05/06: * Rosalind recieved 22 units of insulin yesterday (15 were basal) * Diet advanced to T2DM yesterday with lunch, fasting BSG within goal range, additional IV hydrocortisone 50mg Q24H added times two doses. Continue current basal regimen with hydrocortisone tomorrow. * BSGs trend up at lunchtime, tighten carbohydrate ratio slightly 05/03: * BSGs within goal the last 24h. Drip stable at 2 unit/hr. * Extubated today (tube feeds off, awaiting swallow eval). Vasopressors weaned. Hydrocortisone taper initiated (50mg IV q12h X 2 days followed by 50mg daily X 2 days). * Plan for SQ transition per hop strainer. Will begin Lantus 10 units SQ X 1 now and overlap with the drip ~ 2h prior to discontinuation. Plan for an HS lantus scale depending on BSG. Novolog q6 . 05/02: * Day #4 of insulin drip. Currently running at 2 units/hr. Most recent BSG was 187 mg/dL. * Remains intubated and sedated. Hydrocortisone IV is being tapered, on day #2 of 50 mg q8h. Continues on Zosyn. Norepinephrine is off and only running vasop ressin. Peptamen 1.5 sammy is running at trickle rate (10 mL/hr). Urine output has improved today. * Plan to continue drip until patient is off all pressors. 04/29: * Rosalind received 11 units of insulin yesterday, all bolus. BSGs were: [phone] mg/dL. * Fasting BSG this AM was 238 mg/dL, above goal. Remains on Levophed and Vasopressin. Due to significant acidosis, patient was started on Bicarb drip mixed in Sterile Water. Remains NPO. Started on Hydrocortisone IV as well (100 mg x 1 then 50 mg q6h). * Due to pressor requirements as well as addition of steroids, will transition patient from subcutaneous insulin to an IV insulin drip. Per hop strainer, this drip will be based on hyperglycemia protocol; however, if urine ketones return positive, then will transition drip to DKA protocol. No bolus required. 04/28: * 78 y/o F admitted for ischemic bowel s/p resection on 04/27. Patient has history of Type 2 diabetes on low doses of basal and bolus insulins at home. * Also with history of CKD stage 3. * Post op yesterday patient needed pressure support. Currently intubated and on vasopressors. Pharmacy glycemic consult initiated due to higher blood sugars. * Novolog was started yesterday with stress of 1 parameters and goal range of 140-180 mg/dl. Blood sugars currently being checked q4h and reasonably stable around 200 mg/dl. PLAN FOR INPATIENT GLYCEMIC CONTROL: * Basal insulin * Lantus - hold * Bolus insulin * NovoLog per scale q6h while NPO * Goal Range: Low 110 mg/dL - High 140 mg/dL * Correction Factor: 30 mg/dL/unit * Nutritional / Prandial insulin per carb ratio of 1 unit per 15 grams CHO consumed
--- NOTE | 2024-05-10 16:27 | Hospitalist Progress Note ---
Date of Service May 10, 2024 Assessment & Plan (1) Ischemia, bowel: Plan: Presented with abdominal pain and diffuse colonic pneumatosis seen on CT scan, ischemic colitis and Severe sepsis with septic shock, POA. general surgery-> underwent total colectomy with ileostomy formation on April 27. Shewas in the ICU postoperatively -was on ventilator and pressor support x 5 days- extubated 05/03 to [place] and weaned off of levophed/vasopressin/midodrine Off of octreotide and midodrine for hepatorenal syndrome ascites persists bloody at times Pain control as needed Completed course of Zosyn *Acute blood loss anemia (2) Acute kidney injury superimposed on stage 3b chronic kidney disease: Plan: Creatinine starting to come down. Baseline creatinine 1.8-2.2. Making urine. No metabolic acidosis or electrolyte imbalances to necessitate urgent dialysis Improving. Nephrology signed off. Bumex discontinued Now started on a diet. Encourage p.o. fluid intake. Discontinue IV fluids (3) Anemia: Plan: With a history of anemia of chronic kidney disease as well as MGUS, EBL 500 mL from surgery, on Eliquis and given FFP preoperatively, 5 units PRBCs total post- op for hgb dropping to 5.5, and more FFP and cryoprecipitate on 05/02 CT abdomen/pelvis on 05/02 does show some small areas of hemorrhage in the operative bed but no retroperitoneal hematoma General Surgery on board, keeping close eye on hemoglobin Eliquis is on hold Venous Doppler ultrasound shows an acute right lower extremity DVT. No heparin drip due to anemia and bleeding. Patient already has an IVC filter in place. (4) Cirrhosis: Plan: History of Rothman cirrhosis and portal hypertension. Holding home propranolol, rifaximin, spironolactone, lactulose, furosemide With bloody ascites fluid coming from CRIS drain With thrombocytopenia from cirrhosis and sepsis, TBili mildly elevated (5) Chronic diastolic heart failure: Plan: Currently euvolemic Discontinued IV Bumex in face of EMY Will hydrate gently. Encourage p.o. fluid intake in the setting of EMY PAF/HTN/- meds on hold with lower blood pressure and renal failure Plan Acute DVT right popliteal vein. No full dose heparin due to anemia and ongoing bleeding postsurgery. IVC filter already in place. Diabetes on basal bolus insulin Morbid obesity BMI 48.8 hypothyroidism stable on renal dose iv replacement DVT prophylaxis-SCDs GI prophylaxis-IV Protonix with complete colectomy volume maybe difficult to keep up, will continue to encourage po anticipate need for post dischage nursing care in a facility with new ostomy and need to asses dehydration and diastolic heart failure Admission and Anticipated Discharge Date Admission Date: April 27, 2024 Subjective Patient feels well overall. No new complaints. She is accompanied by her niece at the bedside Review of Systems Review of Systems: All systems reviewed & are unremarkable except as noted in Subjective Physical Exam Physical Exam: General: Awake, conversant Heart: S1, S2/regular rate and rhythm, no murmur rubs or gallops Lungs: Clear to auscultation bilaterally. Normal effort Abdomen: Soft/nontender/nondistended. No hepatosplenomegaly. Colostomy bag has dark-colored liquid. CRIS drain has serosanguineous fluid Extremities: No clubbing/cyanosis. Leg edema bilaterally Behavior: Appropriate, cooperative Results & Data Results & Data Vital Signs (Past 12 Hours) Vital Signs Temp Pulse Resp BP BP Pulse Ox O2 Del Method 05/10/24 15:22 36.5 C 83 18 143/83 H 97 Room Air 05/10/24 08:08 Room Air 05/10/24 07:07 36.4 C L 78 16 149/65 H 99 Nasal Cannula O2 Flow Rate 05/10/24 15:22 05/10/24 08:08 05/10/24 07:07 2 Laboratory Results Abnormal lab results 05/09/24 05/10/24 05/10/24 Range/Units 21:04 07:50 07:55 WBC 11.24 H (4.8-10.8) K/ul RBC 3.27 L (4.20-5.40) M/uL Hgb 9.3 L (12.0-16.0) g/dl Hct 28.7 L (37.0-47.0) % RDW Std Deviation 60.5 H (36.4-46.3) fL RDW Coeff of Leah 19.5 H (11.5-14.5) % Plt Count 117 L (130-400) K/uL Chloride 108 H (98-107) mmol/L Carbon Dioxide 20 L (21-32) mmol/L BUN 86 H (6-23) mg/dl Creatinine 2.59 H D (0.6-1.2) mg/dl BUN/Creatinine Ratio 33.2 H (10-20) Glucose 106 H (70-99(Fasting)) mg/dl POC Glucose 125 H (70-99) mg/dl Calcium 7.8 L (8.6-10.3) mg/dl Total Bilirubin 1.4 H (0.2-1.0) mg/dl Total Protein 4.2 L (6.0-8.3) gm/dl Albumin 2.6 L (3.4-5.0) gm/dl Globulin 1.6 L (2.5-4.0) gm/dl 05/10/24 Range/Units 11:35 WBC (4.8-10.8) K/ul RBC (4.20-5.40) M/uL Hgb (12.0-16.0) g/dl Hct (37.0-47.0) % RDW Std Deviation (36.4-46.3) fL RDW Coeff of Leah (11.5-14.5) % Plt Count (130-400) K/uL Chloride (98-107) mmol/L Carbon Dioxide (21-32) mmol/L BUN (6-23) mg/dl Creatinine (0.6-1.2) mg/dl BUN/Creatinine Ratio (10-20) Glucose (70-99(Fasting)) mg/dl POC Glucose 167 H (70-99) mg/dl Calcium (8.6-10.3) mg/dl Total Bilirubin (0.2-1.0) mg/dl Total Protein (6.0-8.3) gm/dl Albumin (3.4-5.0) gm/dl Globulin (2.5-4.0) gm/dl Diagnostic Findings Venous Doppler Study 05/09/24 16:14 Exam(s): US VENOUS BILATERAL LOWER EXTREMITIES EXAM: US Duplex Bilateral Lower Extremities Veins CLINICAL HISTORY: Reason for exam: post op calf pain. TECHNIQUE: Real-time duplex ultrasound scan of the bilateral lower extremity veins integrating B-mode two-dimensional vascular structure, Doppler spectral analysis, color flow Doppler imaging and compression. COMPARISON: 06/19/2023 FINDINGS: Right deep veins: Thrombus detected in the distal right popliteal vein.. No DVT in the right common femoral, or femoral, proximal deep femoral veins. The right calf veins limitedly visualized due to patient's large body habitus and also due to edema/swelling of the lower extremity. Right superficial veins: Unremarkable. No thrombus in the visualized right great saphenous vein. Left deep veins: There is likely a chronic nonocclusive thrombosis of the left popliteal vein.. No DVT in the left common femoral or femoral, proximal deep femoral veins. Left superficial veins: Unremarkable. No thrombus in the visualized left great saphenous vein. Soft tissues: No popliteal cyst.. IMPRESSION: Right lower extremity: DVT in the distal right popliteal vein. 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 . Electronically signed by: Freda Wahl MD, DABR 05/10/24 00:20 AM PG Care Time/CCT Total # of Minutes Spent Total Time Spent with Patient: Total time spent is greater than 50% in coordination of care (as documented) at patient's floor/unit and/or counseling patient: Coding Level of Care Code 58143 SUB INP/OBS CARE 2/35MIN Diagnoses Ischemia, bowel K55.9 Acute kidney injury superimposed on stage 3b chronic kidney disease N17.9; N18.32 Anemia D64.9 Anemia type: unspecified type Cirrhosis K74.60 Chronic diastolic heart failure I50.32 (3) Anemia Anemia type: unspecified type Qualified Code(s): D64.9 - Anemia, unspecified
[2024-05-10] MEDS: INFLUENZA VACC TS2024-25(65y+)/PF (IIV3) 0.5mL Syr IM ONE (17:03)
--- NOTE | 2024-05-11 06:35 | Surgery Progress Note ---
Date of Service May 11, 2024 Assessment & Plan (1) Ischemic bowel disease: Plan Patient is s/p subtotal colectomy with end ileostomy on 04/27/24 Hgb has remained stable Tolerating diet without any issues of worsening abdominal pain, N/V. CRIS drain with serosanguineous output Ileostomy is functioning with soft stool in bag Every-other stable was removed yesterday due to overlying irritation. Continue dressing changes per [facility] staff. Continue to encourage ambulation/OOB to chair and pulmonary toilet Continue medical management per primary team, surgery will continue to follow Admission and Anticipated Discharge Date Admission Date: April 27, 2024 Subjective Patient feeling well this morning, has no acute complaints Tolerating diet without any issues of abdominal pain, N/V, ileostomy functioning well Hgb 9.3 yesterday, pending AM labs at this time Making adequate urine, 1175mL recorded, kidney function has been improving CRIS drain in place, drainage appears serosanguineous, 450mL output recorded in 24 hours Physical Exam Respiratory: normal respiratory effort; no respiratory distress, no labored breathing and does not use accessory muscles Gastrointestinal (Abdomen): Abdomen soft and nondistended, midline incision has some reaction to the dionne with ever-other one being removed yesterday. Ileostomy with good output Juvenal drain left lower quadrant 450mL output recorded in 24 hours Results & Data Vital Signs (Past 12 Hours) Vital Signs Temp Pulse Resp BP Pulse Ox O2 Del Method 05/10/24 21:31 36.5 C 81 20 132/75 99 Room Air 05/10/24 19:20 Room Air PG Care Time/CCT Total # of Minutes Spent Total Time Spent with Patient: Total time spent is greater than 50% in coordination of care (as documented) at patient's floor/unit and/or counseling patient: Coding Level of Care Code 84587 Post Operative Follow-Up Diagnoses Ischemic bowel disease K55.9
[2024-05-11 07:25] LABS: Hematocrit (blood only) 30.3 % (37.0-47.0); Hemoglobin 9.8 g/dl (12.0-16.0); Mean Corpuscular Hemoglobin 28.5 pg (25.0-34.0); Mean Corpuscular Hgb Conc 32.3 g/dL (32.0-36.0); Mean Corpuscular Volume 88.1 fL (80.0-100.0); Platelet Count 129 K/uL (130-400); RDW Standard Deviation 63.3 fL (36.4-46.3); Red Blood Count 3.44 M/uL (4.20-5.40); White Blood Count 10.72 K/ul (4.8-10.8)
[2024-05-11 07:42] LABS: Albumin Globulin Ratio 1.4 (0.9-2); Albumin Level 2.6 gm/dl (3.4-5.0); BUN Creatinine Ratio 33.2 (10-20); Bilirubin,Total 1.5 mg/dl (0.2-1.0); Calcium 8.2 mg/dl (8.6-10.3); Creatinine Clr Calc Pharmacy 21.9 ml/min; Globulin 1.9 gm/dl (2.5-4.0); Potassium 4.3 mmol/L (3.5-5.1); Total Protein 4.5 gm/dl (6.0-8.3)
--- NOTE | 2024-05-11 14:30 | Hospitalist Progress Note ---
Date of Service May 11, 2024 Assessment & Plan (1) Ischemia, bowel: Plan: Presented with abdominal pain and diffuse colonic pneumatosis seen on CT scan, ischemic colitis and Severe sepsis with septic shock, POA. general surgery-> underwent total colectomy with ileostomy formation on April 27. Shewas in the ICU postoperatively -was on ventilator and pressor support x 5 days- extubated 05/03 to [place] and weaned off of levophed/vasopressin/midodrine Off of octreotide and midodrine for hepatorenal syndrome ascites persists bloody at times Pain control as needed Completed course of Zosyn *Acute blood loss anemia (2) Acute kidney injury superimposed on stage 3b chronic kidney disease: Plan: Creatinine starting to come down. Baseline creatinine 1.8-2.2. Making urine. No metabolic acidosis or electrolyte imbalances to necessitate urgent dialysis Improving. Nephrology signed off. Bumex discontinued Now started on a diet. Encourage p.o. fluid intake. Discontinued IV fluids (3) Anemia: Plan: With a history of anemia of chronic kidney disease as well as MGUS, EBL 500 mL from surgery, on Eliquis and given FFP preoperatively, 5 units PRBCs total post- op for hgb dropping to 5.5, and more FFP and cryoprecipitate on 05/02 CT abdomen/pelvis on 05/02 does show some small areas of hemorrhage in the operative bed but no retroperitoneal hematoma General Surgery on board, keeping close eye on hemoglobin Eliquis is on hold Venous Doppler ultrasound shows an acute right lower extremity DVT. No heparin drip due to anemia and bleeding. Patient already has an IVC filter in place. (4) Cirrhosis: Plan: History of Rothman cirrhosis and portal hypertension. Holding home propranolol, rifaximin, spironolactone, lactulose, furosemide With bloody ascites fluid coming from CRIS drain With thrombocytopenia from cirrhosis and sepsis, TBili mildly elevated (5) Chronic diastolic heart failure: Plan: Currently euvolemic Discontinued IV Bumex in face of EMY Encourage p.o. fluid intake in the setting of EMY PAF/HTN/- meds on hold with lower blood pressure and renal failure Plan Acute DVT right popliteal vein. No full dose heparin due to anemia and ongoing bleeding postsurgery. IVC filter already in place. Diabetes on basal bolus insulin Morbid obesity BMI 48.8 hypothyroidism stable on renal dose iv replacement DVT prophylaxis-SCDs GI prophylaxis-IV Protonix with complete colectomy volume maybe difficult to keep up, will continue to encourage po anticipate need for post dischage nursing care in a facility with new ostomy and need to asses dehydration and diastolic heart failure. Will do a peer to peer on Monday Admission and Anticipated Discharge Date Admission Date: April 27, 2024 Subjective Patient was seen and examined at 11:15 AM. She feels well overall. Denies any chest pain or shortness of breath. Review of Systems Review of Systems: All systems reviewed & are unremarkable except as noted in Subjective Physical Exam Physical Exam: General: Awake, conversant Heart: S1, S2/regular rate and rhythm, no murmur rubs or gallops Lungs: Clear to auscultation bilaterally. Normal effort Abdomen: Soft/nontender/nondistended. No hepatosplenomegaly. Colostomy bag has dark-colored liquid. CRIS drain has serosanguineous fluid Extremities: No clubbing/cyanosis. Leg edema bilaterally Behavior: Appropriate, cooperative Results & Data Results & Data Vital Signs (Past 12 Hours) Vital Signs Temp Pulse Resp BP Pulse Ox O2 Del Method 05/11/24 13:09 36.3 C L 05/11/24 07:05 36.5 C 80 18 130/81 97 Room Air Laboratory Results Abnormal lab results 05/10/24 05/10/24 05/11/24 Range/Units 16:55 20:42 06:50 RBC 3.44 L (4.20-5.40) M/uL Hgb 9.8 L (12.0-16.0) g/dl Hct 30.3 L (37.0-47.0) % RDW Std Deviation 63.3 H (36.4-46.3) fL RDW Coeff of Leah 20.0 H (11.5-14.5) % Plt Count 129 L (130-400) K/uL Chloride 110 H (98-107) mmol/L Carbon Dioxide 19 L (21-32) mmol/L BUN 78 H (6-23) mg/dl Creatinine 2.35 H (0.6-1.2) mg/dl BUN/Creatinine Ratio 33.2 H (10-20) Glucose 115 H (70-99(Fasting)) mg/dl POC Glucose 184 H 230 H (70-99) mg/dl Calcium 8.2 L (8.6-10.3) mg/dl Total Bilirubin 1.5 H (0.2-1.0) mg/dl Total Protein 4.5 L (6.0-8.3) gm/dl Albumin 2.6 L (3.4-5.0) gm/dl Globulin 1.9 L (2.5-4.0) gm/dl 05/11/24 05/11/24 Range/Units 07:45 11:52 RBC (4.20-5.40) M/uL Hgb (12.0-16.0) g/dl Hct (37.0-47.0) % RDW Std Deviation (36.4-46.3) fL RDW Coeff of Leah (11.5-14.5) % Plt Count (130-400) K/uL Chloride (98-107) mmol/L Carbon Dioxide (21-32) mmol/L BUN (6-23) mg/dl Creatinine (0.6-1.2) mg/dl BUN/Creatinine Ratio (10-20) Glucose (70-99(Fasting)) mg/dl POC Glucose 111 H 142 H (70-99) mg/dl Calcium (8.6-10.3) mg/dl Total Bilirubin (0.2-1.0) mg/dl Total Protein (6.0-8.3) gm/dl Albumin (3.4-5.0) gm/dl Globulin (2.5-4.0) gm/dl PG Care Time/CCT Total # of Minutes Spent Total Time Spent with Patient: Total time spent is greater than 50% in coordination of care (as documented) at patient's floor/unit and/or counseling patient: Coding Level of Care Code 17731 SUB INP/OBS CARE 2/35MIN Diagnoses Ischemia, bowel K55.9 Acute kidney injury superimposed on stage 3b chronic kidney disease N17.9; N18.32 Anemia D64.9 Anemia type: unspecified type Cirrhosis K74.60 Chronic diastolic heart failure I50.32 (3) Anemia Anemia type: unspecified type Qualified Code(s): D64.9 - Anemia, unspecified
[2024-05-11] MEDS: NYSTATIN POWDER 15GM BTL EXT SCH (16:37)
[2024-05-11] MEDS: PANTOprazole 40 MG TAB PO SCH (21:30)
[2024-05-12] MEDS: LEVOTHYROXINE SODIUM 75 MCG TABLET PO SCH (06:30)
--- NOTE | 2024-05-12 06:43 | Surgery Progress Note ---
Date of Service May 12, 2024 Assessment & Plan (1) Ischemic bowel disease: Plan: Patient is s/p subtotal colectomy with end ileostomy on 04/27/24 Tolerating diet without any issues erlin this time, ileostomy functioning CRIS drain with serosanguineous output Every-other stable was removed from midline incision 2 days ago due to overlying irritation, patient still with overlying erythema at this time. Continue dressing changes BID per nursing staff. Continue to encourage ambulation/OOB to chair and pulmonary toilet Continue medical management per primary team, surgery will continue to follow Admission and Anticipated Discharge Date Admission Date: April 27, 2024 Supervising Physician Co-Signing Physician Notes She is tolerating a diet and has ileostomy function Can leave abdominal drain in place as it is draining a fair amount Subjective Patient pleasant this morning however states she does feel tired and didn't sleep much last evening Tolerating diet without any issues of abdominal pain, N/V, ileostomy functioning well Hgb has remained stable CRIS drain in place, drainage continues to be serosanguineous, 650mL output recorded in 24 hours Midline incision still with overlying erythema Physical Exam Constitutional: WD/WN, vitals as above Respiratory: normal respiratory effort; no respiratory distress, no labored breathing and does not use accessory muscles Cardiovascular: Rate/Rhythm: regular rate Heart Sounds: normal S1 and normal S2 Gastrointestinal (Abdomen): Abdomen soft and nondistended, nontender to palpation. Midline incision continues with some erythema/reaction to the dionne(ever-other staple was removed 2 days ago). Dressing was changed this morning. Ileostomy with good output Juvenal drain left lower quadrant 650mL output recorded in 24 hours Results & Data Vital Signs (Past 12 Hours) Vital Signs Temp Pulse Resp BP Pulse Ox O2 Del Method 05/11/24 21:30 Room Air 05/11/24 21:04 36.8 C 89 20 140/74 96 Room Air PG Care Time/CCT Total # of Minutes Spent Total Time Spent with Patient: Total time spent is greater than 50% in coordination of care (as documented) at patient's floor/unit and/or counseling patient: Coding Level of Care Code 60712 Post Operative Follow-Up Diagnoses Ischemic bowel disease K55.9
[2024-05-12 06:56] LABS: Hematocrit (blood only) 28.8 % (37.0-47.0); Hemoglobin 9.5 g/dl (12.0-16.0); Mean Corpuscular Hemoglobin 28.9 pg (25.0-34.0); Mean Corpuscular Volume 87.5 fL (80.0-100.0); Mean Platelet Volume 10.4 fL (9.4-12.4); Platelet Count 127 K/uL (130-400); RDW Coefficient of Variation 20.1 % (11.5-14.5); RDW Standard Deviation 63.6 fL (36.4-46.3); Red Blood Count 3.29 M/uL (4.20-5.40); White Blood Count 8.39 K/ul (4.8-10.8)
[2024-05-12 09:06] LABS: BUN Creatinine Ratio 34.2 (10-20); Calcium 8.2 mg/dl (8.6-10.3); Creatinine Clr Calc Pharmacy 23.5 ml/min; Potassium 4.4 mmol/L (3.5-5.1)
--- NOTE | 2024-05-12 13:33 | Hospitalist Progress Note ---
Date of Service May 12, 2024 Assessment & Plan (1) Ischemia, bowel: Plan: Presented with abdominal pain and diffuse colonic pneumatosis seen on CT scan, ischemic colitis and Severe sepsis with septic shock, POA. general surgery-> underwent total colectomy with ileostomy formation on April 27. Shewas in the ICU postoperatively -was on ventilator and pressor support x 5 days- extubated 05/03 to [place] and weaned off of levophed/vasopressin/midodrine Off of octreotide and midodrine for hepatorenal syndrome ascites persists bloody at times Pain control as needed Completed course of Zosyn *Acute blood loss anemia (2) Acute kidney injury superimposed on stage 3b chronic kidney disease: Plan: Creatinine starting to come down. Baseline creatinine 1.8-2.2. Making urine. No metabolic acidosis or electrolyte imbalances to necessitate urgent dialysis Improving. Nephrology signed off. Bumex discontinued Continue diet. Encourage p.o. fluid intake. Discontinued IV fluids (3) Anemia: Plan: With a history of anemia of chronic kidney disease as well as MGUS, EBL 500 mL from surgery, on Eliquis and given FFP preoperatively, 5 units PRBCs total post- op for hgb dropping to 5.5, and more FFP and cryoprecipitate on 05/02 CT abdomen/pelvis on 05/02 does show some small areas of hemorrhage in the operative bed but no retroperitoneal hematoma General Surgery on board, keeping close eye on hemoglobin Eliquis is on hold Venous Doppler ultrasound shows an acute right lower extremity DVT. No heparin drip due to anemia and bleeding. Patient already has an IVC filter in place. (4) Cirrhosis: Plan: History of Rothman cirrhosis and portal hypertension. Holding home propranolol, rifaximin, spironolactone, lactulose, furosemide With bloody ascites fluid coming from CRIS drain With thrombocytopenia from cirrhosis and sepsis, TBili mildly elevated Resume lactulose as the patient is starting to slur her speech. (5) Chronic diastolic heart failure: Plan: Currently euvolemic Discontinued IV Bumex in face of EMY Encourage p.o. fluid intake in the setting of EMY PAF/HTN/- meds on hold with lower blood pressure and renal failure Plan Acute DVT right popliteal vein. No full dose heparin due to anemia and ongoing bleeding postsurgery. IVC filter already in place. Diabetes on basal bolus insulin Morbid obesity BMI 48.8 hypothyroidism stable on renal dose iv replacement DVT prophylaxis-SCDs GI prophylaxis-IV Protonix with complete colectomy volume maybe difficult to keep up, will continue to encourage po anticipate need for post dischage nursing care in a facility with new ostomy and need to asses dehydration and diastolic heart failure. Will do a peer to peer on Monday Admission and Anticipated Discharge Date Admission Date: April 27, 2024 Subjective Patient was seen and examined at 9:55 AM. She denied any new symptoms. Her niece was on the phone during my encounter. I noticed that she was slurring her speech and the niece stated that she needs her lactulose when she starts slurring her speech. Lactulose has been on hold. Review of Systems Review of Systems: All systems reviewed & are unremarkable except as noted in Subjective Physical Exam Physical Exam: General: Awake, conversant Heart: S1, S2/regular rate and rhythm, no murmur rubs or gallops Lungs: Clear to auscultation bilaterally. Normal effort Abdomen: Soft/nontender/nondistended. No hepatosplenomegaly. Colostomy bag noted. CRIS drain has serosanguineous fluid Extremities: No clubbing/cyanosis. Leg edema bilaterally Behavior: Appropriate, cooperative Results & Data Results & Data Vital Signs (Past 12 Hours) Vital Signs Temp Pulse Resp BP Pulse Ox O2 Del Method 05/12/24 07:22 36.5 C 79 16 139/75 97 Room Air Laboratory Results Abnormal lab results 05/01/24 05/11/24 05/11/24 Range/Units 09:37 16:54 20:41 RBC (4.20-5.40) M/uL Hgb (12.0-16.0) g/dl Hct (37.0-47.0) % RDW Std Deviation (36.4-46.3) fL RDW Coeff of Leah (11.5-14.5) % Plt Count (130-400) K/uL Sodium (136-145) mmol/L Chloride (98-107) mmol/L Carbon Dioxide (21-32) mmol/L BUN (6-23) mg/dl Creatinine (0.6-1.2) mg/dl BUN/Creatinine Ratio (10-20) Glucose (70-99(Fasting)) mg/dl POC Glucose 160 H 169 H (70-99) mg/dl Calcium (8.6-10.3) mg/dl Crossmatch See Detail 05/12/24 05/12/24 05/12/24 Range/Units 06:17 06:20 07:45 RBC 3.29 L (4.20-5.40) M/uL Hgb 9.5 L (12.0-16.0) g/dl Hct 28.8 L (37.0-47.0) % RDW Std Deviation 63.6 H (36.4-46.3) fL RDW Coeff of Leah 20.1 H (11.5-14.5) % Plt Count 127 L (130-400) K/uL Sodium 134 L (136-145) mmol/L Chloride 108 H (98-107) mmol/L Carbon Dioxide 19 L (21-32) mmol/L BUN 75 H (6-23) mg/dl Creatinine 2.19 H (0.6-1.2) mg/dl BUN/Creatinine Ratio 34.2 H (10-20) Glucose 133 H (70-99(Fasting)) mg/dl POC Glucose 127 H (70-99) mg/dl Calcium 8.2 L (8.6-10.3) mg/dl Crossmatch 05/12/24 Range/Units 11:57 RBC (4.20-5.40) M/uL Hgb (12.0-16.0) g/dl Hct (37.0-47.0) % RDW Std Deviation (36.4-46.3) fL RDW Coeff of Leah (11.5-14.5) % Plt Count (130-400) K/uL Sodium (136-145) mmol/L Chloride (98-107) mmol/L Carbon Dioxide (21-32) mmol/L BUN (6-23) mg/dl Creatinine (0.6-1.2) mg/dl BUN/Creatinine Ratio (10-20) Glucose (70-99(Fasting)) mg/dl POC Glucose 155 H (70-99) mg/dl Calcium (8.6-10.3) mg/dl Crossmatch PG Care Time/CCT Total # of Minutes Spent Total Time Spent with Patient: Total time spent is greater than 50% in coordination of care (as documented) at patient's floor/unit and/or counseling patient: Coding Level of Care Code 74509 SUB INP/OBS CARE MIN Diagnoses Ischemia, bowel K55.9 Acute kidney injury superimposed on stage 3b chronic kidney disease N17.9; N18.32 Anemia D64.9 Anemia type: unspecified type Cirrhosis K74.60 Chronic diastolic heart failure I50.32 (3) Anemia Anemia type: unspecified type Qualified Code(s): D64.9 - Anemia, unspecified
[2024-05-12] MEDS: MELATONIN 3 MG TAB PO PRN (20:29)
[2024-05-12] MEDS: LACTULOSE SYRUP 30 GM/45 ML UDP PO SCH (20:29)
[2024-05-13 07:55] LABS: Hematocrit (blood only) 31.3 % (37.0-47.0); Hemoglobin 10.1 g/dl (12.0-16.0); Mean Corpuscular Hemoglobin 28.1 pg (25.0-34.0); Mean Corpuscular Hgb Conc 32.3 g/dL (32.0-36.0); Mean Corpuscular Volume 87.2 fL (80.0-100.0); Mean Platelet Volume 10.6 fL (9.4-12.4); Platelet Count 133 K/uL (130-400); RDW Coefficient of Variation 20.5 % (11.5-14.5); RDW Standard Deviation 66.1 fL (36.4-46.3); Red Blood Count 3.59 M/uL (4.20-5.40); White Blood Count 8.06 K/ul (4.8-10.8)
--- NOTE | 2024-05-13 08:00 | Surgery Progress Note ---
Date of Service May 13, 2024 Assessment & Plan (1) H/O exploratory laparotomy: Plan: Patient is s/p subtotal colectomy with end ileostomy on 04/27/24 Tolerating diet no n/v Old CRIS drain site still with some serosanguineous output, ascites fluid? midline incision overlying erythema appears at staple line. Continue dressing changes BID per nursing staff. Continue to encourage ambulation/OOB to chair and pulmonary toilet WBC wnl , h/h stable Admission and Anticipated Discharge Date Admission Date: April 27, 2024 Supervising Physician Co-Signing Physician Notes POD #16 status post subtotal colectomy end ileostomy for ischemic bowel The patient is much more alert power of privacy attorney and bedside she just completed eating breakfast without any issues Dressing right neck area for central line placement still intact ecchymosis resolving The abdomen is soft there is some drainage in the upper aspect of the incision I probed with a Q-tip when significantly and subcutaneous tissue with dark blood draining left lower quadrant drainage appears mostly ascitic in nature and decreasing in volume Most of the remaining dionne were removed the incision was surrounded by redness not typical cellulitis suspect fungal in nature The dressing of the neck incision was removed The abdominal wound was packed with quarter inch iodoform gauze from the upper aspect significant amount of gauze was positioned held in place with safety clip dressing was applied Renal function continues to improve mobilizing fluids hemoglobin 10.1 Apply nystatin around the incision the change twice a day Subjective pt denies n/v , abd pain Review of Systems Gastrointestinal: no abdominal pain, no nausea and no vomiting Physical Exam Gastrointestinal (Abdomen): Inspection/Auscultation: + abdominal surgical incision Percussion/Palpation: abdomen soft Results & Data Vital Signs (Past 12 Hours) Vital Signs Temp Pulse Resp BP Pulse Ox O2 Del Method 05/13/24 07:28 97.3 F L 90 18 131/79 98 Room Air 05/12/24 20:53 98.1 F 86 16 130/67 99 Room Air 05/12/24 20:30 Room Air PG Care Time/CCT Total # of Minutes Spent Total Time Spent with Patient: Total time spent is greater than 50% in coordination of care (as documented) at patient's floor/unit and/or counseling patient: Coding Level of Care Code 95385 Post Operative Follow-Up Diagnoses H/O exploratory laparotomy Z98.890
[2024-05-13 08:06] LABS: BUN Creatinine Ratio 34.8 (10-20); Calcium 8.3 mg/dl (8.6-10.3); Magnesium 1.2 mg/dl (1.7-2.4); Potassium 4.3 mmol/L (3.5-5.1)
--- NOTE | 2024-05-13 09:58 | Pharmacy Report ---
Pharmacy Glycemic Short Note 2 - Date of Service May 13, 2024 - Glycemic Short BSG Results (Last 24 hours): 05/12/24 05/12/24 05/12/24 11:57 16:34 20:36 Glucose POC Glucose 155 H 171 H 169 H 05/13/24 05/13/24 07:19 07:38 Glucose 134 H POC Glucose 122 H OUTPATIENT ANTIDIABETIC REGIMEN: * Lantus 7 units SC AM * Novolog 5 units SC BID with meals * HbA1c = 8.2% on 02/17/24 ASSESSMENT: 05/13: * Patient received total of 10 units of insulin yesterday, all aspart * Fasting BSG 122 mg/dL this AM- will continue to hold basal * CF and CR tightened due to BSGs trending slightly above goal range yesterday 05/10: * Patient received total of 9 units of insulin yesterday, of which 3 units were basal * Fasting BSG 98 mg/dL - will hold basal today as very minimal PO intake yesterday * No change to CF/CR 05/07: * Patient received total 24 units of insulin yesterday, of which 15 units were basal insulin * IV hydrocortisone d/c this AM, no further steroids ordered * Fasting BSG 89 mg/dL - kidney function continues to decline, urine output decreasing * Lunch BSG stable, will continue with only novolog today - could consider small dose of basal insulin tomorrow AM if AM fasting elevated 05/06: * Rosalind recieved 22 units of insulin yesterday (15 were basal) * Diet advanced to T2DM yesterday with lunch, fasting BSG within goal range, additional IV hydrocortisone 50mg Q24H added times two doses. Continue current basal regimen with hydrocortisone tomorrow. * BSGs trend up at lunchtime, tighten carbohydrate ratio slightly 05/03: * BSGs within goal the last 24h. Drip stable at 2 unit/hr. * Extubated today (tube feeds off, awaiting swallow eval). Vasopressors weaned. Hydrocortisone taper initiated (50mg IV q12h X 2 days followed by 50mg daily X 2 days). * Plan for SQ transition per geological drafter. Will begin Lantus 10 units SQ X 1 now and overlap with the drip ~ 2h prior to discontinuation. Plan for an HS lantus scale depending on BSG. Novolog q6 . 05/02: * Day #4 of insulin drip. Currently running at 2 units/hr. Most recent BSG was 187 mg/dL. * Remains intubated and sedated. Hydrocortisone IV is being tapered, on day #2 of 50 mg q8h. Continues on Zosyn. Norepinephrine is off and only running vasopressin. Peptamen 1.5 sammy is running at trickle rate (10 mL/hr). Urine output has improved today. * Plan to continue drip until patient is off all pressors. 04/29: * Rosalind received 11 units of insulin yesterday, all bolus. BSGs were: [phone] mg/dL. * Fasting BSG this AM was 238 mg/dL, above goal. Remains on Levophed and Vasopressin. Due to significant acidosis, patient was started on Bicarb drip mixed in Sterile Water. Remains NPO. Started on Hydrocortisone IV as well (100 mg x 1 then 50 mg q6h). * Due to pressor requirements as well as addition of steroids, will transition patient from subcutaneous insulin to an IV insulin drip. Per geological drafter, this drip will be based on hyperglycemia protocol; however, if urine ketones return positive, then will transition drip to DKA protocol. No bolus required. 04/28: * 78 y/o F admitted for ischemic bowel s/p resection on 04/27. Patient has history of Type 2 diabetes on low doses of basal and bolus insulins at home. * Also with history of CKD stage 3. * Post op yesterday patient needed pressure support. Currently intubated and on vasopressors. Pharmacy glycemic consult initiated due to higher blood sugars. * Novolog was started yesterday with stress of 1 parameters and goal range of 140-180 mg/dl. Blood sugars currently being checked q4h and reasonably stable around 200 mg/dl. PLAN FOR INPATIENT GLYCEMIC CONTROL: * Basal insulin * Lantus - hold * Bolus insulin * NovoLog per scale q6h while NPO * Goal Range: Low 110 mg/dL - High 140 mg/dL * Correction Factor: 25 mg/dL/unit * Nutritional / Prandial insulin per carb ratio of 1 unit per 12 grams CHO consumed
--- NOTE | 2024-05-13 14:37 | Hospitalist Progress Note ---
Date of Service May 13, 2024 Assessment & Plan (1) Ischemia, bowel: Plan: Presented with abdominal pain and diffuse colonic pneumatosis seen on CT scan, ischemic colitis and Severe sepsis with septic shock, POA. general surgery-> underwent total colectomy with ileostomy formation on April 27. Shewas in the ICU postoperatively -was on ventilator and pressor support x 5 days- extubated 05/03 to [place] and weaned off of levophed/vasopressin/midodrine Off of octreotide and midodrine for hepatorenal syndrome ascites persists bloody at times Pain control as needed Completed course of Zosyn *Acute blood loss anemia. Hemoglobin now stable (2) Acute kidney injury superimposed on stage 3b chronic kidney disease: Plan: Creatinine starting to come down. Baseline creatinine 1.8-2.2. Making urine. No metabolic acidosis or electrolyte imbalances to necessitate urgent dialysis Improving. Nephrology signed off. Bumex discontinued Continue diet. Encourage p.o. fluid intake. Discontinued IV fluids (3) Anemia: Plan: With a history of anemia of chronic kidney disease as well as MGUS, EBL 500 mL from surgery, on Eliquis and given FFP preoperatively, 5 units PRBCs total post- op for hgb dropping to 5.5, and more FFP and cryoprecipitate on 05/02 CT abdomen/pelvis on 05/02 does show some small areas of hemorrhage in the operative bed but no retroperitoneal hematoma General Surgery on board, keeping close eye on hemoglobin Eliquis is on hold Venous Doppler ultrasound shows an acute right lower extremity DVT. No heparin drip due to anemia and bleeding. Patient already has an IVC filter in place. (4) Cirrhosis: Plan: History of Rothman cirrhosis and portal hypertension. Holding home propranolol, rifaximin, spironolactone, lactulose, furosemide With bloody ascites fluid coming from CRIS drain With thrombocytopenia from cirrhosis and sepsis Resumed lactulose as the patient was starting to slur her speech. Slurred speech resolved after lactulose started Replace magnesium. (5) Chronic diastolic heart failure: Plan: Currently euvolemic Discontinued IV Bumex in face of EMY Encourage p.o. fluid intake in the setting of EMY PAF/HTN/- meds on hold with lower blood pressure and renal failure Plan Acute DVT right popliteal vein. No full dose heparin due to anemia and ongoing bleeding postsurgery. IVC filter already in place. Diabetes on basal bolus insulin Morbid obesity BMI 48.8 hypothyroidism stable on renal dose iv replacement DVT prophylaxis-SCDs GI prophylaxis-IV Protonix with complete colectomy volume maybe difficult to keep up, will continue to encourage po anticipate need for post dischage nursing care in a facility with new ostomy and need to asses dehydration and diastolic heart failure. Completed peer to peer with insurance company. [facility] was denied. Admission and Anticipated Discharge Date Admission Date: April 27, 2024 Subjective Patient feels well today. She is not slurring her speech today. She has been started back on her lactulose. Review of Systems Review of Systems: All systems reviewed & are unremarkable except as noted in Subjective Physical Exam Physical Exam: General: Awake, conversant Heart: S1, S2/regular rate and rhythm, no murmur rubs or gallops Lungs: Clear to auscultation bilaterally. Normal effort Abdomen: Soft/nontender/nondistended. No hepatosplenomegaly. Colostomy bag noted. CRIS drain has serosanguineous fluid Extremities: No clubbing/cyanosis. Leg edema bilaterally Behavior: Appropriate, cooperative Results & Data Results & Data Vital Signs (Past 12 Hours) Vital Signs Temp Pulse Resp BP Pulse Ox O2 Del Method 05/13/24 14:30 36.5 C 89 18 121/74 98 Room Air 05/13/24 08:00 Room Air 05/13/24 07:28 36.3 C L 90 18 131/79 98 Room Air Laboratory Results Abnormal lab results 05/12/24 05/12/24 05/13/24 Range/Units 16:34 20:36 07:19 RBC 3.59 L (4.20-5.40) M/uL Hgb 10.1 L (12.0-16.0) g/dl Hct 31.3 L (37.0-47.0) % RDW Std Deviation 66.1 H (36.4-46.3) fL RDW Coeff of Leah 20.5 H (11.5-14.5) % Chloride 108 H (98-107) mmol/L Carbon Dioxide 20 L (21-32) mmol/L BUN 69 H (6-23) mg/dl Creatinine 1.98 H (0.6-1.2) mg/dl BUN/Creatinine Ratio 34.8 H (10-20) Glucose 134 H (70-99(Fasting)) mg/dl POC Glucose 171 H 169 H (70-99) mg/dl Calcium 8.3 L (8.6-10.3) mg/dl Magnesium 1.2 L (1.7-2.4) mg/dl 05/13/24 05/13/24 Range/Units 07:38 11:33 RBC (4.20-5.40) M/uL Hgb (12.0-16.0) g/dl Hct (37.0-47.0) % RDW Std Deviation (36.4-46.3) fL RDW Coeff of Leah (11.5-14.5) % Chloride (98-107) mmol/L Carbon Dioxide (21-32) mmol/L BUN (6-23) mg/dl Creatinine (0.6-1.2) mg/dl BUN/Creatinine Ratio (10-20) Glucose (70-99(Fasting)) mg/dl POC Glucose 122 H 168 H (70-99) mg/dl Calcium (8.6-10.3) mg/dl Magnesium (1.7-2.4) mg/dl PG Care Time/CCT Total # of Minutes Spent Total Time Spent with Patient: Total time spent is greater than 50% in coordination of care (as documented) at patient's floor/unit and/or counseling patient: Coding Level of Care Code 87065 SUB INP/OBS CARE 2/35MIN Diagnoses Ischemia, bowel K55.9 Acute kidney injury superimposed on stage 3b chronic kidney disease N17.9; N18.32 Anemia D64.9 Anemia type: unspecified type Cirrhosis K74.60 Chronic diastolic heart failure I50.32 (3) Anemia Anemia type: unspecified type Qualified Code(s): D64.9 - Anemia, unspecified
[2024-05-13] MEDS: MAGNESIUM SULFATE / D5W 1 GM/100 ML BAG IV SCH (15:58)
[2024-05-13] MEDS: NYSTATIN OINT 15 GM TUBE EXT SCH (21:46)
--- NOTE | 2024-05-14 09:03 | Communication Note ---
Date of Service: May 14, 2024 old dressing and packing removed, superior aspect of wound irrigated with red rubber cath and 60ml sterile NSS. Wound repacked with 1/4 inch gauze packing, edges of wound coated with nystatin, and covered with 4x4 , abd pad and medipore tape. Patient tolerated well.
--- NOTE | 2024-05-14 10:12 | Pharmacy Report ---
Pharmacy Glycemic Short Note 2 - Date of Service May 14, 2024 - Glycemic Short BSG Results (Last 24 hours): 05/13/24 05/13/24 05/13/24 11:33 16:38 20:38 POC Glucose 168 H 189 H 209 H 05/14/24 07:34 POC Glucose 132 H OUTPATIENT ANTIDIABETIC REGIMEN: * Lantus 7 units SC AM * Novolog 5 units SC BID with meals * HbA1c = 8.2% on 02/17/24 ASSESSMENT: 05/14: * Rosalind received 11 units of Novolog yesterday * BSGs trending upward throughout the day - will tighten carb coverage * Fasting BSG also trending upward. Could consider resuming Lantus for BSG > 140 mg/dL. 05/13: * Patient received total of 10 units of insulin yesterday, all aspart * Fasting BSG 122 mg/dL this AM- will continue to hold basal * CF and CR tightened due to BSGs trending slightly above goal range yesterday 05/10: * Patient received total of 9 units of insulin yesterday, of which 3 units were basal * Fasting BSG 98 mg/dL - will hold basal today as very minimal PO intake yesterday * No change to CF/CR 05/07: * Patient received total 24 units of insulin yesterday, of which 15 units were basal insulin * IV hydrocortisone d/c this AM, no further steroids ordered * Fasting BSG 89 mg/dL - kidney function continues to decline, urine output decreasing * Lunch BSG stable, will continue with only novolog today - could consider small dose of basal insulin tomorrow AM if AM fasting elevated 05/06: * Rosalind recieved 22 units of insulin yesterday (15 were basal) * Diet advanced to T2DM yesterday with lunch, fasting BSG within goal range, additional IV hydrocortisone 50mg Q24H added times two doses. Continue current basal regimen with hydrocortisone tomorrow. * BSGs trend up at lunchtime, tighten carbohydrate ratio slightly PLAN FOR INPATIENT GLYCEMIC CONTROL: * Basal insulin * Lantus - hold * Bolus insulin * NovoLog per scale q6h while NPO * Goal Range: Low 110 mg/dL - High 140 mg/dL * Correction Factor: 25 mg/dL/unit * Nutritional / Prandial insulin per carb ratio of 1 unit per 10 grams CHO consumed
[2024-05-14 10:57] LABS: BUN Creatinine Ratio 32.6 (10-20); Calcium 8.2 mg/dl (8.6-10.3); Creatinine Clr Calc Pharmacy 26.7 ml/min; Potassium 3.9 mmol/L (3.5-5.1)
[2024-05-14 11:34] LABS: Hematocrit (blood only) 31.5 % (37.0-47.0); Hemoglobin 10.1 g/dl (12.0-16.0); Mean Corpuscular Hemoglobin 28.3 pg (25.0-34.0); Mean Corpuscular Hgb Conc 32.1 g/dL (32.0-36.0); Mean Corpuscular Volume 88.2 fL (80.0-100.0); Mean Platelet Volume 10.7 fL (9.4-12.4); Platelet Count 127 K/uL (130-400); RDW Coefficient of Variation 20.8 % (11.5-14.5); RDW Standard Deviation 66.6 fL (36.4-46.3); Red Blood Count 3.57 M/uL (4.20-5.40); White Blood Count 7.92 K/ul (4.8-10.8)
--- NOTE | 2024-05-14 15:40 | Hospitalist Progress Note ---
Date of Service May 14, 2024 Assessment & Plan (1) Ischemia, bowel: Plan: Presented with abdominal pain and diffuse colonic pneumatosis seen on CT scan, ischemic colitis and Severe sepsis with septic shock, POA. general surgery-> underwent total colectomy with ileostomy formation on April 27. Shewas in the ICU postoperatively -was on ventilator and pressor support x 5 days- extubated 05/03 to [place] and weaned off of levophed/vasopressin/midodrine Off of octreotide and midodrine for hepatorenal syndrome ascites persists. CRIS drain remains in place. Pain control as needed Completed course of Zosyn *Acute blood loss anemia. Hemoglobin now stable (2) Acute kidney injury superimposed on stage 3b chronic kidney disease: Plan: Creatinine starting to come down. Baseline creatinine 1.8-2.2. Making urine. No metabolic acidosis or electrolyte imbalances to necessitate urgent dialysis Improving. Nephrology signed off. Creatinine now stable at around 1.9 Bumex discontinued Continue diet. Encourage p.o. fluid intake. Discontinued IV fluids (3) Anemia: Plan: With a history of anemia of chronic kidney disease as well as MGUS, EBL 500 mL from surgery, on Eliquis and given FFP preoperatively, 5 units PRBCs total post-op for hgb dropping to 5.5, and more FFP and cryoprecipitate on 05/02 CT abdomen/pelvis on 05/02 does show some small areas of hemorrhage in the operative bed but no retroperitoneal hematoma General Surgery on board, keeping close eye on hemoglobin Eliquis is on hold Venous Doppler ultrasound shows an acute right lower extremity DVT. No heparin drip due to anemia and bleeding. Patient already has an IVC filter in place. (4) Cirrhosis: Plan: History of Rothman cirrhosis and portal hypertension. Holding home propranolol, rifaximin, spironolactone, lactulose, furosemide CRIS drain remains in place With thrombocytopenia from cirrhosis and sepsis Resumed lactulose as the patient was starting to slur her speech. Slurred spee ch resolved after lactulose started Replace magnesium. (5) Chronic diastolic heart failure: Plan: Currently euvolemic Discontinued IV Bumex in face of EMY Encourage p.o. fluid intake in the setting of EMY PAF/HTN/- meds on hold with lower blood pressure and renal failure Plan Acute DVT right popliteal vein. No full dose heparin due to anemia and ongoing bleeding postsurgery. IVC filter already in place. Diabetes on basal bolus insulin Morbid obesity BMI 48.8 hypothyroidism stable on renal dose iv replacement DVT prophylaxis-SCDs GI prophylaxis-IV Protonix with complete colectomy volume maybe difficult to keep up, will continue to encourage po anticipate need for post dischage nursing care in a facility with new ostomy and need to asses dehydration and diastolic heart failure. Completed peer to peer with insurance company. [facility] was denied. printing manager working on placement. Admission and Anticipated Discharge Date Admission Date: April 27, 2024 Subjective Patient was seen and examined at 10:25 AM. She denied any pains. She is alert and oriented. Not lethargic today. Review of Systems Review of Systems: All systems reviewed & are unremarkable except as noted in Subjective Physical Exam Physical Exam: General: Awake, conversant Heart: S1, S2/regular rate and rhythm, no murmur rubs or gallops Lungs: Clear to auscultation bilaterally. Normal effort Abdomen: Soft/nontender/nondistended. No hepatosplenomegaly. Colostomy bag noted. CRIS drain has serosanguineous fluid Extremities: No clubbing/cyanosis. Leg edema bilaterally Behavior: Appropriate, cooperative Results & Data Results & Data Vital Signs (Past 12 Hours) Vital Signs Temp Pulse Resp BP Pulse Ox O2 Del Method 05/14/24 08:57 Room Air 05/14/24 07:19 36.5 C 80 16 120/70 100 Room Air Laboratory Results Abnormal lab results 05/13/24 05/13/24 05/14/24 Range/Units 16:38 20:38 07:34 RBC (4.20-5.40) M/uL Hgb (12.0-16.0) g/dl Hct (37.0-47.0) % RDW Std Deviation (36.4-46.3) fL RDW Coeff of Leah (11.5-14.5) % Plt Count (130-400) K/uL Sodium (136-145) mmol/L Chloride (98-107) mmol/L Carbon Dioxide (21-32) mmol/L BUN (6-23) mg/dl Creatinine (0.6-1.2) mg/dl BUN/Creatinine Ratio (10-20) Glucose (70-99(Fasting)) mg/dl POC Glucose 189 H 209 H 132 H (70-99) mg/dl Calcium (8.6-10.3) mg/dl 05/14/24 05/14/24 Range/Units 10:07 11:34 RBC 3.57 L (4.20-5.40) M/uL Hgb 10.1 L (12.0-16.0) g/dl Hct 31.5 L (37.0-47.0) % RDW Std Deviation 66.6 H (36.4-46.3) fL RDW Coeff of Leah 20.8 H (11.5-14.5) % Plt Count 127 L (130-400) K/uL Sodium 134 L (136-145) mmol/L Chloride 108 H (98-107) mmol/L Carbon Dioxide 18 L (21-32) mmol/L BUN 63 H (6-23) mg/dl Creatinine 1.93 H (0.6-1.2) mg/dl BUN/Creatinine Ratio 32.6 H (10-20) Glucose 174 H (70-99(Fasting)) mg/dl POC Glucose 264 H (70-99) mg/dl Calcium 8.2 L (8.6-10.3) mg/dl PG Care Time/CCT Total # of Minutes Spent Total Time Spent with Patient: Total time spent is greater than 50% in coordination of care (as documented) at patient's floor/unit and/or counseling patient: Coding Level of Care Code 55650 SUB INP/OBS CARE 2/35MIN Diagnoses Ischemia, bowel K55.9 Acute kidney injury superimposed on stage 3b chronic kidney disease N17.9; N18.32 Anemia D64.9 Anemia type: unspecified type Cirrhosis K74.60 Chronic diastolic heart failure I50.32 (3) Anemia Anemia type: unspecified type Qualified Code(s): D64.9 - Anemia, unspecified
[2024-05-14] MEDS: LANTUS PER UNIT CHARGE SC SCH (20:32)
[2024-05-15 07:18] LABS: Hematocrit (blood only) 29.2 % (37.0-47.0); Hemoglobin 9.9 g/dl (12.0-16.0); Mean Corpuscular Hemoglobin 28.9 pg (25.0-34.0); Mean Corpuscular Hgb Conc 33.9 g/dL (32.0-36.0); Mean Corpuscular Volume 85.4 fL (80.0-100.0); Mean Platelet Volume 10.8 fL (9.4-12.4); Platelet Count 110 K/uL (130-400); RDW Coefficient of Variation 20.7 % (11.5-14.5); RDW Standard Deviation 64.9 fL (36.4-46.3); Red Blood Count 3.42 M/uL (4.20-5.40); White Blood Count 6.83 K/ul (4.8-10.8)
[2024-05-15 07:42] LABS: BUN Creatinine Ratio 30.6 (10-20); Calcium 7.9 mg/dl (8.6-10.3); Creatinine Clr Calc Pharmacy 25.9 ml/min; Potassium 4.1 mmol/L (3.5-5.1)
[2024-05-15] MEDS: LANTUS PER UNIT CHARGE SC ONE (08:52)
--- NOTE | 2024-05-15 09:14 | Surgery Progress Note ---
Date of Service May 15, 2024 Assessment & Plan (1) Ischemia, bowel: Plan: status post subtotal colectomy with end ileostomy on 04/27 wbc 6.8 midline incision with superior and inferior poles open. surrounding wound is erythema which appears 2/2 moisture/yeast . continue nystatin creams and packing to superior portion with nu-gauze continue diet. ostomy viable and functioning well old drain site continues with ascitic fluid continue diet continue iV abx, wound cx's pending encourage ongoing pulmonary toilet and oob as able pt seen/examined with dr. yan Admission and Anticipated Discharge Date Admission Date: April 27, 2024 Subjective Patient feeling fine. Denies any obvious complaints. Physical Exam Physical Exam: awake, no distress. eating bfast in bed Gastrointestinal (Abdomen): midline incision with superior and inferior poles open. surrounding wound is erythema which appears 2/2 moisture/yeast Results & Data Vital Signs (Past 12 Hours) Vital Signs Temp Pulse Resp BP Pulse Ox O2 Del Method 05/15/24 09:01 Room Air 05/15/24 06:55 97.7 F 60 14 94/61 L 95 Room Air PG Care Time/CCT Total # of Minutes Spent Total Time Spent with Patient: Total time spent is greater than 50% in coordination of care (as documented) at patient's floor/unit and/or counseling patient: Coding Level of Care Code 35708 Post Operative Follow-Up Diagnoses Ischemia, bowel K55.9
--- NOTE | 2024-05-15 09:30 | Pharmacy Report ---
Pharmacy Glycemic Short Note 2 - Date of Service May 15, 2024 - Glycemic Short BSG Results (Last 24 hours): 05/14/24 05/14/24 05/14/24 10:07 11:34 16:51 Glucose 174 H POC Glucose 264 H 234 H 05/14/24 05/15/24 05/15/24 20:30 06:41 07:27 Glucose 185 H POC Glucose 162 H 185 H OUTPATIENT ANTIDIABETIC REGIMEN: * Lantus 7 units SC AM * Novolog 5 units SC BID with meals * HbA1c = 8.2% on 02/17/24 ASSESSMENT: 05/15: * Patient received 20 units of insulin yesterday, all bolus. BSGs were: [phone] mg/dL. * Fasting BSG today is 185 mg/dL. Will give a one time dose of basal insulin t his AM. Reassess basal tomorrow morning. * No changes in Novolog. 05/14: * Rosalind received 11 units of Novolog yesterday * BSGs trending upward throughout the day - will tighten carb coverage * Fasting BSG also trending upward. Could consider resuming Lantus for BSG > 140 mg/dL. 05/13: * Patient received total of 10 units of insulin yesterday, all aspart * Fasting BSG 122 mg/dL this AM- will continue to hold basal * CF and CR tightened due to BSGs trending slightly above goal range yesterday 05/10: * Patient received total of 9 units of insulin yesterday, of which 3 units were basal * Fasting BSG 98 mg/dL - will hold basal today as very minimal PO intake yesterday * No change to CF/CR 05/07: * Patient received total 24 units of insulin yesterday, of which 15 units were basal insulin * IV hydrocortisone d/c this AM, no further steroids ordered * Fasting BSG 89 mg/dL - kidney function continues to decline, urine output decreasing * Lunch BSG stable, will continue with only novolog today - could consider small dose of basal insulin tomorrow AM if AM fasting elevated 05/06: * Rosalind recieved 22 units of insulin yesterday (15 were basal) * Diet advanced to T2DM yesterday with lunch, fasting BSG within goal range, additional IV hydrocortisone 50mg Q24H added times two doses. Continue current basal regimen with hydrocortisone tomorrow. * BSGs trend up at lunchtime, tighten carbohydrate ratio slightly PLAN FOR INPATIENT GLYCEMIC CONTROL: * Basal insulin * Lantus 5 units SC AM * Bolus insulin * NovoLog per scale q6h while NPO * Goal Range: Low 110 mg/dL - High 140 mg/dL * Correction Factor: 25 mg/dL/unit * Nutritional / Prandial insulin per carb ratio of 1 unit per 10 grams CHO consumed
--- NOTE | 2024-05-15 13:57 | Hospitalist Progress Note ---
Date of Service May 15, 2024 Assessment & Plan (1) Ischemia, bowel: Plan: Presented with abdominal pain and diffuse colonic pneumatosis seen on CT scan, ischemic colitis and Severe sepsis with septic shock, POA. general surgery-> underwent total colectomy with ileostomy formation on April 27. Shewas in the ICU postoperatively -was on ventilator and pressor support x 5 days- extubated 05/03 to [place] and weaned off of levophed/vasopressin/midodrine Off of octreotide and midodrine for hepatorenal syndrome ascites persists. CRIS drain remains in place. Pain control as needed Completed course of Zosyn *Acute blood loss anemia. Hemoglobin now stable (2) Acute kidney injury superimposed on stage 3b chronic kidney disease: Plan: Creatinine starting to come down. Baseline creatinine 1.8-2.2. Making urine. No metabolic acidosis or electrolyte imbalances to necessitate urgent dialysis Improving. Nephrology signed off. Creatinine now stable at around 1.9 Bumex discontinued Continue diet. Encourage p.o. fluid intake. Discontinued IV fluids (3) Anemia: Plan: With a history of anemia of chronic kidney disease as well as MGUS, EBL 500 mL from surgery, on Eliquis and given FFP preoperatively, 5 units PRBCs total post-op for hgb dropping to 5.5, and more FFP and cryoprecipitate on 05/02 CT abdomen/pelvis on 05/02 does show some small areas of hemorrhage in the operative bed but no retroperitoneal hematoma General Surgery on board, keeping close eye on hemoglobin Eliquis is on hold Venous Doppler ultrasound shows an acute right lower extremity DVT. No heparin drip due to anemia and bleeding. Patient already has an IVC filter in place. (4) Cirrhosis: Plan: History of Rothman cirrhosis and portal hypertension. Holding home propranolol, rifaximin, spironolactone, lactulose, furosemide CRIS drain remains in place With thrombocytopenia from cirrhosis and sepsis Resumed lactulose as the patient was starting to slur her speech. Slurred spee ch resolved after lactulose started Replace magnesium. (5) Chronic diastolic heart failure: Plan: Currently euvolemic Discontinued IV Bumex in face of EMY Encourage p.o. fluid intake in the setting of EMY PAF/HTN/- meds on hold with lower blood pressure and renal failure Plan Acute DVT right popliteal vein. No full dose heparin due to anemia and ongoing bleeding postsurgery. IVC filter already in place. Diabetes on basal bolus insulin Morbid obesity BMI 48.8 hypothyroidism stable on renal dose iv replacement DVT prophylaxis-SCDs GI prophylaxis-IV Protonix with complete colectomy volume maybe difficult to keep up, will continue to encourage po anticipate need for post dischage nursing care in a facility with new ostomy and need to asses dehydration and diastolic heart failure. Completed peer to peer with insurance company. [facility] was denied. assistant center manager working on placement. Admission and Anticipated Discharge Date Admission Date: April 27, 2024 Subjective Patient was seen and examined at 9:30 AM. She did not have any major complaints. She was accompanied by her niece in the room. Review of Systems Review of Systems: All systems reviewed & are unremarkable except as noted in Subjective Physical Exam Physical Exam: General: Awake, conversant Heart: S1, S2/regular rate and rhythm, no murmur rubs or gallops Lungs: Clear to auscultation bilaterally. Normal effort Abdomen: Soft/nontender/nondistended. No hepatosplenomegaly. Colostomy bag noted. CRIS drain has serosanguineous fluid Extremities: No clubbing/cyanosis. Leg edema bilaterally Behavior: Appropriate, cooperative Results & Data Results & Data Vital Signs (Past 12 Hours) Vital Signs Temp Pulse Resp BP Pulse Ox O2 Del Method 05/15/24 09:01 Room Air 05/15/24 06:55 36.5 C 60 14 94/61 L 95 Room Air Laboratory Results Abnormal lab results 05/14/24 05/14/24 05/15/24 Range/Units 16:51 20:30 06:41 RBC 3.42 L (4.20-5.40) M/uL Hgb 9.9 L (12.0-16.0) g/dl Hct 29.2 L (37.0-47.0) % RDW Std Deviation 64.9 H (36.4-46.3) fL RDW Coeff of Leah 20.7 H (11.5-14.5) % Plt Count 110 L (130-400) K/uL Sodium 133 L (136-145) mmol/L Chloride 108 H (98-107) mmol/L Carbon Dioxide 18 L (21-32) mmol/L BUN 60 H (6-23) mg/dl Creatinine 1.96 H (0.6-1.2) mg/dl BUN/Creatinine Ratio 30.6 H (10-20) Glucose 185 H (70-99(Fasting)) mg/dl POC Glucose 234 H 162 H (70-99) mg/dl Calcium 7.9 L (8.6-10.3) mg/dl 05/15/24 05/15/24 Range/Units 07:27 11:27 RBC (4.20-5.40) M/uL Hgb (12.0-16.0) g/dl Hct (37.0-47.0) % RDW Std Deviation (36.4-46.3) fL RDW Coeff of Leah (11.5-14.5) % Plt Count (130-400) K/uL Sodium (136-145) mmol/L Chloride (98-107) mmol/L Carbon Dioxide (21-32) mmol/L BUN (6-23) mg/dl Creatinine (0.6-1.2) mg/dl BUN/Creatinine Ratio (10-20) Glucose (70-99(Fasting)) mg/dl POC Glucose 185 H 192 H (70-99) mg/dl Calcium (8.6-10.3) mg/dl PG Care Time/CCT Total # of Minutes Spent Total Time Spent with Patient: Total time spent is greater than 50% in coordination of care (as documented) at patient's floor/unit and/or counseling patient: Coding Level of Care Code 67992 SUB INP/OBS CARE 2/35MIN Diagnoses Ischemia, bowel K55.9 Acute kidney injury superimposed on stage 3b chronic kidney disease N17.9; N18.32 Anemia D64.9 Anemia type: unspecified type Cirrhosis K74.60 Chronic diastolic heart failure I50.32 (3) Anemia Anemia type: unspecified type Qualified Code(s): D64.9 - Anemia, unspecified
[2024-05-16 08:02] LABS: Hematocrit (blood only) 30.3 % (37.0-47.0); Hemoglobin 9.7 g/dl (12.0-16.0); Mean Corpuscular Hemoglobin 28.7 pg (25.0-34.0); Mean Corpuscular Volume 89.6 fL (80.0-100.0); Mean Platelet Volume 11.1 fL (9.4-12.4); Platelet Count 60 K/uL (130-400); RDW Coefficient of Variation 21.1 % (11.5-14.5); RDW Standard Deviation 69.3 fL (36.4-46.3); Red Blood Count 3.38 M/uL (4.20-5.40); White Blood Count 5.92 K/ul (4.8-10.8)
[2024-05-16 08:14] LABS: Calcium 8.3 mg/dl (8.6-10.3); Potassium 4.1 mmol/L (3.5-5.1)
[2024-05-16 08:20] LABS: BUN Creatinine Ratio 31.3 (10-20); Creatinine Clr Calc Pharmacy 25.3 ml/min
--- NOTE | 2024-05-16 09:48 | Surgery Progress Note ---
Date of Service May 16, 2024 Assessment & Plan (1) Ischemia, bowel: Plan: status post subtotal colectomy with end ileostomy on 04/27 wbc 5.9, Hbg 9.7 from 9.9. Eliquis was resumed yesterday. Plts 60. Cr 2 midline incision with superior and inferior poles open. surrounding wound is erythema which appears 2/2 moisture/yeast . continue nystatin creams and packing to superior portion with nu-gauze continue diet. ostomy viable and functioning well old drain site continues with small amount of ascitic fluid, outpt decreasing wound cx's with mixed skin ora. okay to hold off on abx for now encourage ongoing pulmonary toilet and oob as able Will need to monitor ostomy outpt and keep up with her fluid intake to avoid dehydration and worsening kidney fxn awaiting disposition to rehab once accepted Admission and Anticipated Discharge Date Admission Date: April 27, 2024 Supervising Physician Co-Signing Physician Notes as per Margaret COONEY will d/c nystatin and apply calmoseptine around incision bid Subjective Patient reports pain is controlled. tolerating diet no nausea/vomiting. says her butt feels sore Physical Exam Physical Exam: awake, no distress, lying in bed Gastrointestinal (Abdomen): Inspection/Auscultation: + abdominal surgical incision; abdomen not distended Percussion/Palpation: + abdomen tender (expected ebenezer incisional discomfort) and abdomen soft midline incision with surrounding erythema likely 2/2 yeast/moisture damage vs some staple reaction. few dionne remain. superior and inferior portions of wound open and draining some bloody/purulent fluid. packing to superior portion changed. + ostomy in place with a mix of soft and liquid stool. Old CRIS drain site bag with small amount of ascitic fluid noted, output decreasing Results & Data Vital Signs (Past 12 Hours) Vital Signs Temp Pulse Pulse Resp BP Pulse Ox O2 Del Method 05/16/24 07:01 97.7 F 90 18 115/74 96 Room Air 05/15/24 22:27 97.7 F 81 20 120/75 99 Room Air PG Care Time/CCT Total # of Minutes Spent Total Time Spent with Patient: Total time spent is greater than 50% in coordination of care (as documented) at patient's floor/unit and/or counseling patient: Coding Level of Care Code 67859 Post Operative Follow-Up Diagnoses Ischemia, bowel K55.9
[2024-05-16] MEDS: LANTUS PER UNIT CHARGE SC SCH (10:03)
[2024-05-16] MEDS: APIXABAN 2.5 MG TAB PO SCH (10:35)
[2024-05-16] MEDS: FUROSEMIDE 40 MG TAB PO SCH (10:35)
--- NOTE | 2024-05-16 14:23 | Hospitalist Progress Note ---
Date of Service May 16, 2024 Assessment & Plan (1) Ischemia, bowel: Plan: Presented with abdominal pain and diffuse colonic pneumatosis seen on CT scan, ischemic colitis and Severe sepsis with septic shock, POA. general surgery-> underwent total colectomy with ileostomy formation on April 27. Shewas in the ICU postoperatively -was on ventilator and pressor support x 5 days- extubated 05/03 to [place] and weaned off of levophed/vasopressin/midodrine Off of octreotide and midodrine for hepatorenal syndrome ascites persists. CRIS drain remains in place. Pain control as needed Completed course of Zosyn *Acute blood loss anemia. Hemoglobin now stable. Resumed Eliquis today 05/16 (2) Acute kidney injury superimposed on stage 3b chronic kidney disease: Plan: Creatinine has been stable in the 1.9-2 range. Baseline creatinine 1.8-2.2. Making urine. No metabolic acidosis or electrolyte imbalances to necessitate urgent dialysis Improving. Nephrology signed off. Resume his Lasix today at 40 mg p.o. twice daily Continue diet. Encourage p.o. fluid intake. Fluids have been discontinued for few days now (3) Anemia: Plan: With a history of anemia of chronic kidney disease as well as MGUS, EBL 500 mL from surgery, on Eliquis and given FFP preoperatively, 5 units PRBCs total post- op for hgb dropping to 5.5, and more FFP and cryoprecipitate on 05/02 CT abdomen/pelvis on 05/02 does show some small areas of hemorrhage in the operative bed but no retroperitoneal hematoma General Surgery on board, keeping close eye on hemoglobin Eliquis has been on hold Resumed Eliquis after surgery cleared Venous Doppler ultrasound shows an acute right lower extremity DVT. No heparin drip due to anemia and bleeding. Patient already has an IVC filter in place. Resume Eliquis today 05/16 (4) Cirrhosis: Plan: History of Rothman cirrhosis and portal hypertension. Holding home propranolol, rifaximin, spironolactone, lactulose, furosemide CRIS drain remains in place With thrombocytopenia from cirrhosis and sepsis. Platelet count today 60. Monitor especially now that she is back on Eliquis. No signs of bleeding Resumed lactulose as the patient was starting to slur her speech. Slurred speech resolved after lactulose started Replaced magnesium. (5) Chronic diastolic heart failure: Plan: Currently euvolemic Discontinued IV Bumex in face of EMY Encourage p.o. fluid intake in the setting of EMY Resume home dose of Lasix 05/16 PAF/HTN/- meds on hold with lower blood pressure and renal failure Plan Acute DVT right popliteal vein. No full dose heparin due to anemia and ongoing bleeding postsurgery. IVC filter already in place. Diabetes on basal bolus insulin Morbid obesity BMI 48.8 hypothyroidism stable on renal dose iv replacement DVT prophylaxis-SCDs GI prophylaxis-IV Protonix anticipate need for post dischage nursing care in a facility with new ostomy and need to asses dehydration and diastolic heart failure. Completed peer to peer with insurance company. [facility] was denied. Family pursuing family appeal for [employer]. medical records manager working on placement. Admission and Anticipated Discharge Date Admission Date: April 27, 2024 Subjective Patient was seen and examined at 10:15 AM. She feels well overall. Denies chest pain or shortness of breath. Review of Systems Review of Systems: All systems reviewed & are unremarkable except as noted in Subjective Physical Exam Physical Exam: General: Awake, conversant Heart: S1, S2/regular rate and rhythm, no murmur rubs or gallops Lungs: Clear to auscultation bilaterally. Normal effort Abdomen: Soft/nontender/nondistended. No hepatosplenomegaly. Colostomy bag noted. Extremities: No clubbing/cyanosis. Leg edema bilaterally Behavior: Appropriate, cooperative Results & Data Results & Data Vital Signs (Past 12 Hours) Vital Signs Temp Pulse Resp BP Pulse Ox O2 Del Method 05/16/24 10:20 Room Air 05/16/24 07:01 36.5 C 90 18 115/74 96 Room Air PG Care Time/CCT Total # of Minutes Spent Total Time Spent with Patient: Total time spent is greater than 50% in coordination of care (as documented) at patient's floor/unit and/or counseling patient: Coding Level of Care Code 74477 SUB INP/OBS CARE 2/35MIN Diagnoses Ischemia, bowel K55.9 Acute kidney injury superimposed on stage 3b chronic kidney disease N17.9; N18.32 Anemia D64.9 Anemia type: unspecified type Cirrhosis K74.60 Chronic diastolic heart failure I50.32 (3) Anemia Anemia type: unspecified type Qualified Code(s): D64.9 - Anemia, unspecified
[2024-05-16] MEDS: MENTHOL-ZINC OXIDE 360 APPLN/120 GM TUBE EXT SCH (20:16)
[2024-05-17 07:47] LABS: BUN Creatinine Ratio 31.1 (10-20); Calcium 8.4 mg/dl (8.6-10.3); Creatinine Clr Calc Pharmacy 23.9 ml/min
--- NOTE | 2024-05-17 08:18 | Surgery Progress Note ---
Date of Service May 17, 2024 Assessment & Plan (1) Ischemic bowel disease: Plan 05/17/2004 POD#20 status post subtotal colectomy with end ileostomy Remaining dionne from the abdominal incision was removed the packing in the upper aspect of the incision to the subcutaneous tissue was changed and reapplied the cavity extends approximately 10 cm from the skin edges the skin edge and subcutaneous tissue of the uppermost part of the incision bleeds easily with minimal trauma The packing was removed dressing was applied Ileostomy output is increasing almost nearing high output level will watch the next day or so may need to add either Imodium or Questran Encourage patient to increase oral intake support services coordinator working to find placement for the next level of care Dr. Govea believes covering the weekend Admission and Anticipated Discharge Date Admission Date: April 27, 2024 Subjective Much more alert today denies any abdominal discomfort States that she was here yesterday Wanting to know what his next for her care Physical Exam Physical Exam: Alert coherent resting comfortably without any issues The abdomen is soft no localized tenderness midline incision few dionne remaining overall the periwound is improved Ileostomy with semiformed liquid output volume approximately 1000 cc last 24 hours Left lower quadrant to site with the Juvenal through the drain removed the drainage is subsided considerably expected but they have slowly may be able to remove the bag Results & Data Vital Signs (Past 12 Hours) Vital Signs Temp Pulse Resp BP Pulse Ox O2 Del Method 05/17/24 07:41 36.5 C 105 H 16 108/67 100 Room Air 05/16/24 20:30 Room Air Laboratory Results Creatinine level increasing to 2.12 today from 2.01 yesterday BUN 66 increasing last few days
[2024-05-17 09:18] LABS: Hemoglobin 10.4 g/dl (12.0-16.0); Mean Corpuscular Hemoglobin 28.7 pg (25.0-34.0); Mean Corpuscular Hgb Conc 31.5 g/dL (32.0-36.0); Mean Corpuscular Volume 91.2 fL (80.0-100.0); Mean Platelet Volume 11.2 fL (9.4-12.4); Platelet Count 71 K/uL (130-400); RDW Standard Deviation 70.8 fL (36.4-46.3); Red Blood Count 3.62 M/uL (4.20-5.40); White Blood Count 7.07 K/ul (4.8-10.8)
--- NOTE | 2024-05-17 12:40 | Hospitalist Progress Note ---
Date of Service May 17, 2024 Assessment & Plan (1) Ischemia, bowel: Plan: Presented with abdominal pain and diffuse colonic pneumatosis seen on CT scan, ischemic colitis and Severe sepsis with septic shock, POA. general surgery-> underwent total colectomy with ileostomy formation on April 27. Shewas in the ICU postoperatively -was on ventilator and pressor support x 5 days- extubated 05/03 to [place] and weaned off of levophed/vasopressin/midodrine Off of octreotide and midodrine for hepatorenal syndrome ascites persists. CRIS drain remains in place. Pain control as needed Completed course of Zosyn *Acute blood loss anemia. Hemoglobin now stable. Resumed Eliquis today 05/16 (2) Acute kidney injury superimposed on stage 3b chronic kidney disease: Plan: Creatinine has been stable in the 1.9-2 range. Baseline creatinine 1.8-2.2. Making urine. No metabolic acidosis or electrolyte imbalances to necessitate urgent dialysis Improving. Nephrology signed off. Resume her home dose of Lasix today at 40 mg p.o. twice daily on 05/16. Today creatinine is slightly elevated at 2.12. Hold off on Lasix especially since there is concern for increased ileostomy output today 05/17 Continue diet. Encourage p.o. fluid intake. Fluids have been discontinued for few days now (3) Anemia: Plan: With a history of anemia of chronic kidney disease as well as MGUS, EBL 500 mL from surgery, on Eliquis and given FFP preoperatively, 5 units PRBCs total post- op for hgb dropping to 5.5, and more FFP and cryoprecipitate on 05/02 CT abdomen/pelvis on 05/02 does show some small areas of hemorrhage in the operative bed but no retroperitoneal hematoma General Surgery on board, keeping close eye on hemoglobin Eliquis has been on hold Resumed Eliquis after surgery cleared on 05/16 Venous Doppler ultrasound shows an acute right lower extremity DVT. No heparin drip due to anemia and bleeding. Patient already has an IVC filter in place. Resume Eliquis today 05/16 (4) Cirrhosis: Plan: History of Rothman cirrhosis and portal hypertension. Holding home propranolol, rifaximin, spironolactone, lactulose, furosemide CRIS drain remains in place With thrombocytopenia from cirrhosis and sepsis. Platelet count today 71. Monitor especially now that she is back on Eliquis. No signs of bleeding Resumed lactulose as the patient was starting to slur her speech. Slurred speech resolved after lactulose started Replaced magnesium. (5) Chronic diastolic heart failure: Plan: Currently euvolemic Discontinued IV Bumex in face of EMY Encourage p.o. fluid intake in the setting of EMY Resume home dose of Lasix 05/16 but held Lasix today 05/17 due to slight increase in creatinine and concern for increased ileostomy output PAF/HTN Plan Acute DVT right popliteal vein. No full dose heparin due to anemia and ongoing bleeding postsurgery. IVC filter already in place. Diabetes on basal bolus insulin Morbid obesity BMI 48.8 hypothyroidism stable on renal dose iv replacement DVT prophylaxis-SCDs GI prophylaxis-IV Protonix anticipate need for post dischage nursing care in a facility with new ostomy and need to asses dehydration and diastolic heart failure. Completed peer to peer with insurance company. [facility] was denied. Family pursuing family appeal for [employer]. web site project manager working on placement. Admission and Anticipated Discharge Date Admission Date: April 27, 2024 Subjective Patient was seen and examined at 10:35 AM. She is accompanied by her niece and her granddaughter at the bedside. She is feeling well and does not have any complaints today. Surgery team had concerns about ileostomy output increasing. Review of Systems Review of Systems: All systems reviewed & are unremarkable except as noted in Subjective Physical Exam Physical Exam: General: Awake, conversant Heart: S1, S2/regular rate and rhythm, no murmur rubs or gallops Lungs: Clear to auscultation bilaterally. Normal effort Abdomen: Soft/nontender/nondistended. No hepatosplenomegaly. Colostomy bag noted. Extremities: No clubbing/cyanosis. Leg edema bilaterally Behavior: Appropriate, cooperative Results & Data Results & Data Vital Signs (Past 12 Hours) Vital Signs Temp Pulse Resp BP Pulse Ox O2 Del Method 05/17/24 07:41 36.5 C 105 H 16 108/67 100 Room Air Laboratory Results Abnormal lab results 05/16/24 05/16/24 05/17/24 Range/Units 16:35 20:33 06:28 RBC (4.20-5.40) M/uL Hgb (12.0-16.0) g/dl Hct (37.0-47.0) % MCHC (32.0-36.0) g/dL RDW Std Deviation (36.4-46.3) fL RDW Coeff of Leah (11.5-14.5) % Plt Count (130-400) K/uL Sodium 135 L (136-145) mmol/L Chloride 109 H (98-107) mmol/L Carbon Dioxide 19 L (21-32) mmol/L BUN 66 H (6-23) mg/dl Creatinine 2.12 H (0.6-1.2) mg/dl BUN/Creatinine Ratio 31.1 H (10-20) Glucose 155 H (70-99(Fasting)) mg/dl POC Glucose 151 H 167 H (70-99) mg/dl Calcium 8.4 L (8.6-10.3) mg/dl 05/17/24 05/17/24 05/17/24 Range/Units 07:57 08:53 11:38 RBC 3.62 L (4.20-5.40) M/uL Hgb 10.4 L (12.0-16.0) g/dl Hct 33.0 L (37.0-47.0) % MCHC 31.5 L (32.0-36.0) g/dL RDW Std Deviation 70.8 H (36.4-46.3) fL RDW Coeff of Leah 21.0 H (11.5-14.5) % Plt Count 71 L (130-400) K/uL Sodium (136-145) mmol/L Chloride (98-107) mmol/L Carbon Dioxide (21-32) mmol/L BUN (6-23) mg/dl Creatinine (0.6-1.2) mg/dl BUN/Creatinine Ratio (10-20) Glucose (70-99(Fasting)) mg/dl POC Glucose 125 H 238 H (70-99) mg/dl Calcium (8.6-10.3) mg/dl PG Care Time/CCT Total # of Minutes Spent Total Time Spent with Patient: Total time spent is greater than 50% in coordination of care (as documented) at patient's floor/unit and/or counseling patient: Coding Level of Care Code 18368 SUB INP/OBS CARE 2/35MIN Diagnoses Ischemia, bowel K55.9 Acute kidney injury superimposed on stage 3b chronic kidney disease N17.9; N18.32 Anemia D64.9 Anemia type: unspecified type Cirrhosis K74.60 Chronic diastolic heart failure I50.32 (3) Anemia Anemia type: unspecified type Qualified Code(s): D64.9 - Anemia, unspecified
--- NOTE | 2024-05-17 13:51 | Pharmacy Report ---
Pharmacy Glycemic Short Note 2 - Date of Service May 17, 2024 - Glycemic Short BSG Results (Last 24 hours): 05/16/24 05/16/24 05/17/24 16:35 20:33 06:28 Glucose 155 H POC Glucose 151 H 167 H 05/17/24 05/17/24 07:57 11:38 Glucose POC Glucose 125 H 238 H OUTPATIENT ANTIDIABETIC REGIMEN: * Lantus 7 units SC AM * Novolog 5 units SC BID with meals * HbA1c = 8.2% on 02/17/24 ASSESSMENT: 05/17 * Patient received a total of 17 units of insulin yesterday. 5 units were basal and 12 units were bolus. * Her BSG have been trending high the last few days so her Lantus has been increased to 7 units which is what she was using as an outpatient. * Lunch time BSG have also been high the last few days ranging from 192-264mg/dL so the CHO ratio was tightened with only the breakfast dosing. 05/15: * Patient received 20 units of insulin yesterday, all bolus. BSGs were: [phone] mg/dL. * Fasting BSG today is 185 mg/dL. Will give a one time dose of basal insulin this AM. Reassess basal tomorrow morning. * No changes in Novolog. 05/14: * Rosalind received 11 units of Novolog yesterday * BSGs trending upward throughout the day - will tighten carb coverage * Fasting BSG also trending upward. Could consider resuming Lantus for BSG > 140 mg/dL. 05/13: * Patient received total of 10 units of insulin yesterday, all aspart * Fasting BSG 122 mg/dL this AM- will continue to hold basal * CF and CR tightened due to BSGs trending slightly above goal range yesterday 05/10: * Patient received total of 9 units of insulin yesterday, of which 3 units were basal * Fasting BSG 98 mg/dL - will hold basal today as very minimal PO intake yesterday * No change to CF/CR 05/07: * Patient received total 24 units of insulin yesterday, of which 15 units were basal insulin * IV hydrocortisone d/c this AM, no further steroids ordered * Fasting BSG 89 mg/dL - kidney function continues to decline, urine output decreasing * Lunch BSG stable, will continue with only novolog today - could consider small dose of basal insulin tomorrow AM if AM fasting elevated 05/06: * Rosalind recieved 22 units of insulin yesterday (15 were basal) * Diet advanced to T2DM yesterday with lunch, fasting BSG within goal range, additional IV hydrocortisone 50mg Q24H added times two doses. Continue current basal regimen with hydrocortisone tomorrow. * BSGs trend up at lunchtime, tighten carbohydrate ratio slightly PLAN FOR INPATIENT GLYCEMIC CONTROL: * Basal insulin * Lantus 7 units SC AM starting 05/18 * Bolus insulin * NovoLog per scale q6h while NPO * Goal Range: Low 110 mg/dL - High 140 mg/dL * Correction Factor: 25 mg/dL/unit * Nutritional / Prandial insulin per carb ratio of 1 unit per 8 grams CHO consumed with breakfast and 1 unit per 10 grams CHO consumed with lunch, supper, and at bedtime.
[2024-05-17] MEDS: INSULIN ASPART PER UNIT CHARGE SC SCH (17:11)
--- NOTE | 2024-05-18 07:40 | Hospitalist Progress Note ---
Date of Service May 18, 2024 Assessment & Plan (1) Ischemia, bowel: Plan: Ischemic bowel, sepsis. Improved, subsequently stable Presented with abdominal pain and diffuse colonic pneumatosis seen on CT scan, ischemic colitis and Severe sepsis with septic shock, POA. - general surgery-> underwent total colectomy with ileostomy formation on April 27. - Shewas in the ICU postoperatively -was on ventilator and pressor support x 5 days- extubated 05/03 to [place] and weaned off of levophed/vasopressin/midodrine - Off of octreotide and midodrine for hepatorenal syndrome ascites persists. CRIS drain remains in place. Pain control as needed Completed course of Zosyn Patient did have acute blood loss anemia, hemoglobin subsequently stable and uptrending and Eliquis 2.5 mg twice daily resumed (2) Acute kidney injury superimposed on stage 3b chronic kidney disease: Plan: Creatinine has been stable in the 1.9-2 range. Baseline creatinine 1.8-2.2. Making urine. No metabolic acidosis or electrolyte imbalances to necessitate urgent dialysis Improving. Nephrology signed off. Resumed her home dose of Lasix today at 40 mg p.o. twice daily on 05/16. Lasix held due to increased ileostomy output 05/17 and slight rise in creatinine. Continue diet. P.o. intake encouraged in setting of critical IV shortage, if creatinine continues to uptrend then will add 1 L balance crystalloid for supplementation. (3) Anemia: Plan: With a history of anemia of chronic kidney disease as well as MGUS, EBL 500 mL from surgery, on Eliquis and given FFP preoperatively, 5 units PRBCs total post- op for hgb dropping to 5.5, and more FFP and cryoprecipitate on 05/02 CT abdomen/pelvis on 05/02 does show some small areas of hemorrhage in the operative bed but no retroperitoneal hematoma General Surgery on board, keeping close eye on hemoglobin Eliquis has been on hold Resumed Eliquis after surgery cleared on 05/16 Venous Doppler ultrasound shows an acute right lower extremity DVT. No heparin drip due to anemia and bleeding. Patient already has an IVC filter in place. Resumed Eliquis 05/16 (4) Cirrhosis: Plan: History of Rothman cirrhosis and portal hypertension. Holding home propranolol, rifaximin, spironolactone, lactulose, furosemide CRIS drain remains in place With thrombocytopenia from cirrhosis and sepsis. Platelet count today 71. Monitor especially now that she is back on Eliquis. No signs of bleeding Resumed lactulose as the patient was starting to slur her speech. Slurred speech resolved after lactulose started (5) Chronic diastolic heart failure: Plan: Discontinued IV Bumex in face of EMY Encourage p.o. fluid intake in the setting of EMY Resume home dose of Lasix 05/16 but held Lasix today 05/17 due to slight increase in creatinine and concern for increased ileostomy output PAF/HTN Plan Acute DVT right popliteal vein. No full dose heparin due to anemia and ongoing bleeding postsurgery. IVC filter already in place. Diabetes on basal bolus insulin Morbid obesity BMI 48.8 hypothyroidism stable on renal dose iv replacement DVT prophylaxis-SCDs GI prophylaxis-IV Protonix anticipate need for post dischage nursing care in a facility with new ostomy and need to asses dehydration and diastolic heart failure. Peer to peer with [employer] completed 05/17. [facility] was denied. Family pursuing family appeal for [facility]. manager freelance working on placement. Admission and Anticipated Discharge Date Admission Date: April 27, 2024 Subjective seen at the bedside. She is comfortable. Reports no changes since yesterday. No questions at time of visit, reports that she is a little bit tired and was resting otherwise no concerns Physical Exam Physical Exam: General: A&Ox3. NAD. Cooperative. HEENT: Atraumatic, normocephalic. Pulm: CTAB A&P. -wheezes, -rales, -rhonchi. Symmetrical chest rise. No increase in work of breathing. No respiratory distress. Cardiac: RRR, -mrg. Radial pulses intact and symmetrical. Abdominal: Surgical dressing C/D/I, stoma intact without increased erythema/tenderness. Approximately 300 cc of drain output last 24-hour Results & Data Results & Data Vital Signs (Past 12 Hours) Vital Signs Temp Pulse Pulse Resp BP BP Pulse Ox 05/18/24 07:25 36.3 C L 84 16 108/69 97 05/17/24 20:40 05/17/24 20:38 36.6 C 89 16 105/57 L 98 O2 Del Method 05/18/24 07:25 Room Air 05/17/24 20:40 Room Air 05/17/24 20:38 Room Air PG Care Time/CCT Total # of Minutes Spent Total Time Spent with Patient: Total time spent is greater than 50% in coordination of care (as documented) at patient's floor/unit and/or counseling patient: Coding Level of Care Code 57091 SUB INP/OBS CARE 1/25MIN Diagnoses Ischemia, bowel K55.9 Acute kidney injury superimposed on stage 3b chronic kidney disease N17.9; N18.32 Anemia D64.9 Anemia type: unspecified type Cirrhosis K74.60 Chronic diastolic heart failure I50.32 (3) Anemia Anemia type: unspecified type Qualified Code(s): D64.9 - Anemia, unspecified
[2024-05-18 08:01] LABS: BUN Creatinine Ratio 30.3 (10-20); Calcium 8.3 mg/dl (8.6-10.3); Creatinine Clr Calc Pharmacy 23.1 ml/min; Potassium 3.9 mmol/L (3.5-5.1)
[2024-05-18] MEDS: LANTUS PER UNIT CHARGE SC SCH (09:27)
[2024-05-18] MEDS: INSULIN ASPART PER UNIT CHARGE SC SCH (09:31)
--- NOTE | 2024-05-18 09:47 | Surgery Progress Note ---
Date of Service May 18, 2024 Assessment & Plan (1) H/O exploratory laparotomy: Plan: cont dressing changes awaiting placement hopefully next week. Admission and Anticipated Discharge Date Admission Date: April 27, 2024 Subjective pt seen. feeling better today. no new complaints. Physical Exam Physical Exam: alert. nad dressings in place. stoma looks good. Results & Data Vital Signs (Past 12 Hours) Vital Signs Temp Pulse Resp BP Pulse Ox O2 Del Method 05/18/24 07:25 36.3 C L 84 16 108/69 97 Room Air PG Care Time/CCT Total # of Minutes Spent Total Time Spent with Patient: Total time spent is greater than 50% in coordination of care (as documented) at patient's floor/unit and/or counseling patient: Coding Level of Care Code 55182 Post Operative Follow-Up Diagnoses H/O exploratory laparotomy Z98.890
[2024-05-18] MEDS: ACETAMINOPHEN 325 MG TAB PO PRN (14:45)
[2024-05-18] MEDS: ALBUMIN 5% 250 ML IV ONE (21:37)
[2024-05-18] MEDS: ALBUMIN HUMAN 5% 12.5 GM/250 ML VIAL IV ONE (21:37)
[2024-05-18] MEDS: SODIUM CHLORIDE 0.9% 500 ML IV ONE (22:29)
[2024-05-19 00:43] LABS: Alanine Aminotransferase 11 U/L (7-52); Albumin Level 2.4 gm/dl (3.4-5.0); Alkaline Phosphatase 138 U/L (34-104); Anion Gap 8 (3-11); BUN Creatinine Ratio 28.5 (10-20); Blood Urea Nitrogen 71 mg/dl (6-23); Calcium 8.3 mg/dl (8.6-10.3); Carbon Dioxide 15 mmol/L (21-32); Chloride 109 mmol/L (98-107); Creatinine Clr Calc Pharmacy 20.2 ml/min; Globulin 2.4 gm/dl (2.5-4.0); Glucose 126 mg/dl (70-99(Fasting)); Magnesium 1.4 mg/dl (1.7-2.4); Sodium 132 mmol/L (136-145); Total Protein 4.8 gm/dl (6.0-8.3)
[2024-05-19 00:51] LABS: Hematocrit (blood only) 28.1 % (37.0-47.0); Hemoglobin 9.1 g/dl (12.0-16.0); Mean Corpuscular Hemoglobin 28.3 pg (25.0-34.0); Mean Corpuscular Hgb Conc 32.4 g/dL (32.0-36.0); Mean Corpuscular Volume 87.3 fL (80.0-100.0); Mean Platelet Volume 11.1 fL (9.4-12.4); Platelet Count 61 K/uL (130-400); RDW Coefficient of Variation 20.7 % (11.5-14.5); RDW Standard Deviation 65.2 fL (36.4-46.3); Red Blood Count 3.22 M/uL (4.20-5.40); White Blood Count 7.58 K/ul (4.8-10.8)
[2024-05-19 01:10] LABS: Anisocytosis Present; Basophils # (auto) 0.01 K/uL (0.00-0.20); Basophils % (auto) 0.1 %; Echinocytes 2+; Eosinophils # (auto) 0.01 K/uL (0.00-0.50); Eosinophils % (auto) 0.1 %; Immature Granulocytes # (auto) 0.03 K/uL (0.01-0.20); Immature Granulocytes % (auto) 0.4 %; Lymphocytes # (auto) 0.31 K/uL (1.20-3.40); Lymphocytes % (auto) 4.1 %; Monocytes # (auto) 0.52 K/uL (0.11-0.59); Monocytes % (auto) 6.9 %; Neutrophils % (auto) 88.4 %; Polychromasia 1+
[2024-05-19 01:59] LABS: Potassium 4.6 mmol/L (3.5-5.1)
--- NOTE | 2024-05-19 02:57 | Communication Note ---
Date of Service: May 19, 2024 Earlier in the shift patient was noted to have some slurred speech and hypotension by RN attending the patient. Her blood pressure was probably 48/37. Code lashonda was called. Patient was noted to be verbally responsive with some slurred speech. BP was checked multiple times and had risen to 94/57. Heart rate was in the high 90s. Patient was transferred to PCU for closer monitoring. Labs have been checked and CBC revealed white blood cell count is normal. Her platelet count is 61,000. Hemoglobin and hematocrit are 9.1 and 28.1. 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 Her BUN and creatinine are 71 and 2.4 Patient revisited at the bedside will order PCR I discussed with the nurse attending the patient. Following code lashonda patient received 500 cc of 5% albumin. Patient's ostomy appears to be functioning and is putting out liquid brown stool. Discussed with the patient and she denies any chest pain or shortness of breath. She denies lightheadedness or dizziness she denies any other complaints at this time. On exam patient's blood pressure has improved to 102/57 and heart rate is now in the low 90s. She is afebrile. Abdomen is soft and nondistended. There is no pain with palpation. Ostomy is putting out liquid brown stool. I discussed with RN attending to the patient. She notes the patient's blood pressure has improved. She does note that she has had approximately 125 cc of urine output over the past 3 hours. And voices no other concerns at this time. As patient's blood pressure seems to have responded to administration of intravenous albumin will continue to monitor the patient closely.
[2024-05-19] MEDS: MAGNESIUM SULFATE / D5W 1 GM/100 ML BAG IV SCH (07:54)
--- NOTE | 2024-05-19 08:24 | Hospitalist Progress Note ---
Date of Service May 19, 2024 Assessment & Plan (1) Acute kidney injury superimposed on stage 3b chronic kidney disease: Plan: Creatinine has generally been stable in the 1.9-2 range. Baseline creatinine 1.8-2.2. Making urine. No metabolic acidosis or electrolyte imbalances to necessitate urgent dialysis. Nephrology signed off. 05/19 Lasix was transiently resumed 05/16, and then held due to ileostomy output 05/17 and slight rise in creatinine 05/18 overnight with hypotension and tachycardia which responded to IV albumin. Clinically with increased volume contraction, and creatinine is rising at 2.49 the following morning. Responded to albumin. Patient has been attempting to take in orals as tolerated however appears to be volume contracted with rising BUN and creatinine. Will add small LR bolus and 1 L supplemental fluid. She has mild hyperchloremic metabolic acidosis Magnesium low, likely due to ostomy output. Repleted On afternoon assessment continues to feel well, is tolerating increased orals well. Lactulose decreased has no (2) Ischemia, bowel: Plan: Ischemic bowel, sepsis. Improved, subsequently stable Presented with abdominal pain and diffuse colonic pneumatosis seen on CT scan, ischemic colitis and Severe sepsis with septic shock, POA. - general surgery-> underwent total colectomy with ileostomy formation on April 27. - Shewas in the ICU postoperatively -was on ventilator and pressor support x 5 days- extubated 05/03 to MD and weaned off of levophed/vasopressin/midodrine - Off of octreotide and midodrine for hepatorenal syndrome CRIS drain remains in place. Pain control as needed Completed course of Zosyn Patient did have acute blood loss anemia, hemoglobin subsequently stable +/- 1 g, Eliquis continued (3) Anemia: Plan: With a history of anemia of chronic kidney disease as well as MGUS, EBL 500 mL from surgery, on Eliquis and given FFP preoperatively, 5 units PRBCs total post- op for hgb dropping to 5.5, and more FFP and cryoprecipitate on 05/02 CT abdomen/pelvis on 05/02 does show some small areas of hemorrhage in the operative bed but no retroperitoneal hematoma General Surgery on board, keeping close eye on hemoglobin Eliquis has been on hold Resumed Eliquis after surgery cleared on 05/16 Venous Doppler ultrasound shows an acute right lower extremity DVT. No heparin drip due to anemia and bleeding. Patient already has an IVC filter in place. Resumed Eliquis 05/16 (4) Cirrhosis: Plan: History of Rothman cirrhosis and portal hypertension. Holding home propranolol, rifaximin, spironolactone, lactulose, furosemide CRIS drain remains in place With thrombocytopenia from cirrhosis and sepsis. Platelet count today 71. Monitor especially now that she is back on Eliquis. No signs of bleeding Resumed lactulose as the patient was starting to slur her speech. Slurred speech resolved after lactulose started. She has had increased ostomy output likely related to this and some volume contraction. Will decrease dosing to once daily (5) Chronic diastolic heart failure: Plan: Diuretics held due to EMY contraction PAF/HTN Plan Acute DVT right popliteal vein. No full dose heparin due to anemia and ongoing bleeding postsurgery. IVC filter already in place. Diabetes on basal bolus insulin Morbid obesity BMI 48.8 hypothyroidism stable on renal dose iv replacement DVT prophylaxis-SCDs GI prophylaxis-IV Protonix anticipate need for post dischage nursing care in a facility with new ostomy and need to asses dehydration and diastolic heart failure. Peer to peer with insurance company completed 05/17. [facility] was denied. Family pursuing family appeal for [employer]. senior category manager working on placement. Admission and Anticipated Discharge Date Admission Date: April 27, 2024 Alfredito Boyer is seen at the bedside. She reports that she did feel very lightheaded and dizzy yesterday but feels much better and relatively normal this morning. Denies lightheadedness, dizziness, chest pain, chest pressure, shortness of breath. Ostomy is with a small amount of liquid output. She does not feel confused. Would like her pillow readjusted, no other questions at bedside. Physical Exam Physical Exam: General: A&Ox3. NAD. Cooperative. HEENT: Atraumatic, normocephalic. Pulm: CTAB A&P. -wheezes, -rales, -rhonchi. Symmetrical chest rise. No increase in work of breathing. No respiratory distress. Cardiac: RRR, -mrg. Radial pulses intact and symmetrical. Abdominal: Surgical dressing C/D/I, stoma intact without increased erythema/tenderness. Scant liquid output in ostomy, approximately 100-200 cc of yellow urine in [place] Results & Data Results & Data Vital Signs (Past 12 Hours) Vital Signs Temp Pulse Pulse Pulse Resp BP BP 10/27/24 07:45 36.5 C 93 H 18 107/66 05/19/24 03:00 36.3 C L 93 H 18 05/19/24 02:30 36.3 C L 94 H 16 05/19/24 01:35 97 H 05/19/24 00:55 05/19/24 00:04 05/18/24 23:40 36.4 C L 91 H 16 05/18/24 22:59 05/18/24 22:31 106 H 05/18/24 22:09 115 H 05/18/24 22:00 05/18/24 21:58 108 H 05/18/24 21:34 112 H 05/18/24 21:34 36.6 C 114 H 18 05/18/24 21:15 05/18/24 21:10 05/18/24 21:05 98 H 16 51/36 L BP Pulse Ox O2 Del Method 05/19/24 07:45 100 Room Air 05/19/24 03:00 108/70 100 Room Air 05/19/24 02:30 102/57 L 100 Room Air 05/19/24 01:35 100/67 100 Room Air 05/19/24 00:55 109/56 L 05/19/24 00:04 98/64 L 05/18/24 23:40 91/49 L Room Air 05/18/24 22:59 81/46 L 05/18/24 22:31 105/67 05/18/24 22:09 88/49 L 05/18/24 22:00 Room Air 05/18/24 21:58 97/61 L 05/18/24 21:34 05/18/24 21:34 94/57 L 98 Room Air 05/18/24 21:15 70/40 L 05/18/24 21:10 99 Room Air 05/18/24 21:05 48/37 L 97 Room Air PG Care Time/CCT Total # of Minutes Spent Total Time Spent with Patient: Total time spent is greater than 50% in coordination of care (as documented) at patient's floor/unit and/or counseling patient: Coding Level of Care Code 11618 SUB INP/OBS CARE 3/50MIN Diagnoses Acute kidney injury superimposed on stage 3b chronic kidney disease N17.9; N18.32 Ischemia, bowel K55.9 Anemia D64.9 Anemia type: unspecified type Cirrhosis K74.60 Chronic diastolic heart failure I50.32 (3) Anemia Anemia type: unspecified type Qualified Code(s): D64.9 - Anemia, unspecified
[2024-05-19] MEDS: LACTATED RINGER'S 250 ML IV ONE (08:53)
[2024-05-19] MEDS: LACTATED RINGER'S 1,000 ML IV SCH (09:59)
--- NOTE | 2024-05-19 10:23 | Surgery Progress Note ---
Date of Service May 19, 2024 Assessment & Plan (1) H/O exploratory laparotomy: Plan: doing ok encouraged to increase po fluid intake hopeful placement this week Admission and Anticipated Discharge Date Admission Date: April 27, 2024 Subjective pt seen. looks/feels well. events of last night noted. pt without complaint this AM Physical Exam Physical Exam: alert. nad stoma functioning--liquid dressing c/d/i Results & Data Vital Signs (Past 12 Hours) Vital Signs Temp Pulse Resp BP BP Pulse Ox O2 Del Method 05/19/24 07:45 36.5 C 93 H 18 107/66 100 Room Air 05/19/24 03:00 36.3 C L 93 H 18 108/70 100 Room Air 05/19/24 02:30 36.3 C L 94 H 16 102/57 L 100 Room Air 05/19/24 01:35 97 H 100/67 100 Room Air 05/19/24 00:55 109/56 L 05/19/24 00:04 98/64 L 05/18/24 23:40 36.4 C L 91 H 16 91/49 L Room Air 05/18/24 22:59 81/46 L 05/18/24 22:31 106 H 105/67 PG Care Time/CCT Total # of Minutes Spent Total Time Spent with Patient: Total time spent is greater than 50% in coordination of care (as documented) at patient's floor/unit and/or counseling patient: Coding Level of Care Code 95031 Post Operative Follow-Up Diagnoses H/O exploratory laparotomy Z98.890
--- NOTE | 2024-05-19 13:05 | Pharmacy Report ---
Pharmacy Glycemic Short Note 2 - Date of Service May 19, 2024 - Glycemic Short BSG Results (Last 24 hours): 05/18/24 05/18/24 05/18/24 16:35 21:03 23:50 Glucose 126 H POC Glucose 139 H 120 H 05/19/24 05/19/24 07:43 12:28 Glucose POC Glucose 130 H 170 H OUTPATIENT ANTIDIABETIC REGIMEN: * Lantus 7 units SC AM * Novolog 5 units SC BID with meals * HbA1c = 8.2% on 02/17/24 ASSESSMENT: 05/19: * Fasting BSG trending upward. Lantus increased to 7 units daily on 05/18. Will continue increased dose. * Lunch BSG remains the highest of the day. Will further tighten carb coverage with breakfast only. 05/17 * Patient received a total of 17 units of insulin yesterday. 5 units were basal and 12 units were bolus. * Her BSG have been trending high the last few days so her Lantus has been increased to 7 units which is what she was using as an outpatient. * Lunch time BSG have also been high the last few days ranging from 192-264mg/dL so the CHO ratio was tightened with only the breakfast dosing. 05/15: * Patient received 20 units of insulin yesterday, all bolus. BSGs were: 619-111-520-162 mg/dL. * Fasting BSG today is 185 mg/dL. Will give a one time dose of basal insulin this AM. Reassess basal tomorrow morning. * No changes in Novolog. 05/14: * Rosalind received 11 units of Novolog yesterday * BSGs trending upward throughout the day - will tighten carb coverage * Fasting BSG also trending upward. Could consider resuming Lantus for BSG > 140 mg/dL. 05/13: * Patient received total of 10 units of insulin yesterday, all aspart * Fasting BSG 122 mg/dL this AM- will continue to hold basal * CF and CR tightened due to BSGs trending slightly above goal range yesterday 05/10: * Patient received total of 9 units of insulin yesterday, of which 3 units were basal * Fasting BSG 98 mg/dL - will hold basal today as very minimal PO intake yesterday * No change to CF/CR 05/07: * Patient received total 24 units of insulin yesterday, of which 15 units were basal insulin * IV hydrocortisone d/c this AM, no further steroids ordered * Fasting BSG 89 mg/dL - kidney function continues to decline, urine output decreasing * Lunch BSG stable, will continue with only novolog today - could consider small dose of basal insulin tomorrow AM if AM fasting elevated 05/06: * Rosalind recieved 22 units of insulin yesterday (15 were basal) * Diet advanced to T2DM yesterday with lunch, fasting BSG within goal range, additional IV hydrocortisone 50mg Q24H added times two doses. Continue current basal regimen with hydrocortisone tomorrow. * BSGs trend up at lunchtime, tighten carbohydrate ratio slightly PLAN FOR INPATIENT GLYCEMIC CONTROL: * Basal insulin * Lantus 7 units SC AM * Bolus insulin * NovoLog per scale q6h while NPO * Goal Range: Low 110 mg/dL - High 140 mg/dL * Correction Factor: 25 mg/dL/unit * Nutritional / Prandial insulin per carb ratio - Breakfast: 1 unit per 7 grams CHO consumed - Lunch/dinner/HS: 1 unit per 9 grams CHO consumed
[2024-05-19] MEDS: LACTATED RINGER'S 1,000 ML IV ONE (15:29)
[2024-05-20 07:38] LABS: BUN Creatinine Ratio 27.1 (10-20); Calcium 8.5 mg/dl (8.6-10.3); Creatinine Clr Calc Pharmacy 20.4 ml/min; Potassium 4.3 mmol/L (3.5-5.1)
[2024-05-20 07:40] LABS: Hematocrit (blood only) 28.2 % (37.0-47.0); Hemoglobin 9.1 g/dl (12.0-16.0); Mean Corpuscular Hemoglobin 28.1 pg (25.0-34.0); Mean Corpuscular Hgb Conc 32.3 g/dL (32.0-36.0); RDW Standard Deviation 66.4 fL (36.4-46.3); Red Blood Count 3.24 M/uL (4.20-5.40)
--- NOTE | 2024-05-20 07:44 | Surgery Progress Note ---
Date of Service May 20, 2024 Assessment & Plan (1) H/O exploratory laparotomy: Plan: doing ok encouraged fluids and food intake +ostomy o/p dressing and packing changed today, nursing to continue hopeful placement this week pt seen with Dr. Melchor Admission and Anticipated Discharge Date Admission Date: April 27, 2024 Supervising Physician Co-Signing Physician Notes Abdominal incision ebenezer-incisional irritation is greatly improved with Calmoseptine The wound was probed with a Q-tip the depth is considerably improved although the Q-tip goes from the upper part of the incision to the umbilical area. No purulent drainage there is some bloody staining drainage Overall the patient is improved considerably left lower quadrant. There like drain sites as an Optifoam monitor without any seepage ileostomy is working well with solid material Will continue packing the wound we can hold off placing a VAC system since it is improved considerably packing the wound once a day Subjective pt reports doing well, ostomy o/p thickening Review of Systems Gastrointestinal: no abdominal pain, no nausea and no vomiting Physical Exam Constitutional: cooperative and comfortable; no acute distress Respiratory: normal respiratory effort; no respiratory distress Cardiovascular: Rate/Rhythm: regular rate Gastrointestinal (Abdomen): Inspection/Auscultation: + significant pannus and + abdominal surgical incision Percussion/Palpation: abdomen soft Results & Data Vital Signs (Past 12 Hours) Vital Signs Temp Pulse Pulse Resp BP Pulse Ox O2 Del Method 05/20/24 07:33 97.5 F L 80 20 105/66 96 Room Air 05/20/24 02:35 97.7 F 80 18 103/64 98 Room Air 05/19/24 23:59 86 05/19/24 21:57 97.3 F L 88 18 103/57 L 100 Room Air 05/19/24 21:36 Room Air PG Care Time/CCT Total # of Minutes Spent Total Time Spent with Patient: Total time spent is greater than 50% in coordination of care (as documented) at patient's floor/unit and/or counseling patient: Coding Level of Care Code 11958 Post Operative Follow-Up Diagnoses H/O exploratory laparotomy Z98.890
[2024-05-20 07:46] LABS: Anisocytosis Present; Basophils # (auto) 0.02 K/uL (0.00-0.20); Basophils % (auto) 0.4 %; Dohle Bodies 1+; Echinocytes 1+; Eosinophils # (auto) 0.16 K/uL (0.00-0.50); Eosinophils % (auto) 2.9 %; Immature Granulocytes # (auto) 0.01 K/uL (0.01-0.20); Immature Granulocytes % (auto) 0.2 %; Lymphocytes # (auto) 0.47 K/uL (1.20-3.40); Lymphocytes % (auto) 8.7 %; Mean Platelet Volume 10.1 fL (9.4-12.4); Monocytes # (auto) 0.35 K/uL (0.11-0.59); Monocytes % (auto) 6.4 %; Neutrophils # (auto) 4.42 K/uL (1.40-6.50); Neutrophils % (auto) 81.4 %; Platelet Count 54 K/uL (130-400); Polychromasia 1+; Toxic Granulation 1+; White Blood Count 5.43 K/ul (4.8-10.8)
[2024-05-20] MEDS: LACTULOSE SYRUP 30 GM/45 ML UDP PO SCH (08:38)
--- NOTE | 2024-05-20 14:55 | Hospitalist Progress Note ---
Date of Service May 20, 2024 Assessment & Plan (1) Acute kidney injury superimposed on stage 3b chronic kidney disease: Plan: Creatinine up slightly to 2.5. Monitor intake and output. Serial labs. Nephrology signed off. (2) Ischemia, bowel: Plan: Status post total colectomy with ileostomy formation. Appreciate surgery consultation and recommendations. She has abdominal wound dehiscence with packing in place. No wound VAC for now. (3) Septic shock: Plan: Present on admission. Status post pressor support. Resolved (4) Anemia: Plan: history of anemia of chronic kidney disease as well as MGUS. Now acute blood loss anemia with EBL 500 mL from surgery. Chronic Eliquis therapy on admission. This was held on admission and subsequently restarted. She has received fresh frozen plasma and multiple units of packed red blood cells. Serial labs. (5) Cirrhosis: Plan: History of Rothman cirrhosis and portal hypertension. Propranolol and rifaximin restarted today, May 20. (6) Chronic diastolic heart failure: Plan: Monitor intake and output. Currently stable (7) Right leg DVT: Plan: Eliquis has been restarted. (8) Morbid obesity: Plan: Supportive care. BMI greater than 40. Significant weight loss recommended (9) Type 2 diabetes mellitus: Plan: ADA diet. Basal insulin therapy. Sliding scale coverage Plan IPR placement has been denied. Case management pursuing SNF placement. Admission and Anticipated Discharge Date Admission Date: April 27, 2024 Subjective Alert and oriented. No distress. Oral propranolol and rifaximin have been restarted which she takes at home. Family states that their family appeal for [facility] placement was denied. Case management pursuing SNF placement. Platelet count is down to 54,000. Will follow. Creatinine up slightly to 2.5. Will follow. Surgery entry noted. Vital signs are stable Review of Systems 2 Review of Systems: Constitutionalno fever or chills ENTno blurred vision, no double vision, no epistaxis, no sore throat Respiratoryno cough, no wheezing, no shortness of breath Cardiacno palpitations, no chest pain, no syncope Luis Fernando nausea, vomiting, diarrhea, melena, hematochezia GUno urinary retention, no urinary incontinence, no dysuria, no hematuria Musculoskeletalno joint pain, no muscle tenderness Skinno bruising, no rashes, no pruritus Neurono isolated weakness, no paresthesia Psychno depression, no anxiety Physical Exam 2 Physical Exam: General-alert and oriented x3, no fever, no chills. Obese HEENT-head atraumatic and normocephalic, pupils equal and reactive to light, extraocular muscles intact Neck-no lymphadenopathy or thyromegaly, trachea midline Chest-clear to auscultation. No rales, wheezing or rhonchi Cardiac-regular rate and rhythm, normal S1 and S2 Abdomen-functioning ileostomy present. Heavily bandaged mid abdominal wound dehiscence. Bowel sounds active. Extremities-no cyanosis, clubbing, or edema Neuro-cranial nerves II through XII intact, motor and sensory function within normal limits, strength symmetrical, no focal deficits Psych-normal affect, normal mood Results & Data Results & Data Vital Signs (Past 12 Hours) Vital Signs Temp Pulse Pulse Resp BP Pulse Ox O2 Del Method 05/20/24 11:26 36.4 C L 93 H 18 101/48 L 100 Room Air 05/20/24 08:00 84 05/20/24 07:49 36.4 C L 80 20 105/66 96 Room Air 05/20/24 07:33 36.4 C L 80 20 105/66 96 Room Air Laboratory Results 05/20/24 06:35 05/20/24 06:35 PG Care Time/CCT Total # of Minutes Spent Total Time Spent with Patient: Total time spent is greater than 50% in coordination of care (as documented) at patient's floor/unit and/or counseling patient: Coding Level of Care Code 22387 SUB INP/OBS CARE 3/50MIN Diagnoses Acute kidney injury superimposed on stage 3b chronic kidney disease N17.9; N18.32 Ischemia, bowel K55.9 Septic shock A41.9; R65.21 Anemia D64.9 Anemia type: unspecified type Cirrhosis K74.60 Chronic diastolic heart failure I50.32 Right leg DVT I82.401 Morbid obesity E66.01 Type 2 diabetes mellitus E11.9 (4) Anemia Anemia type: unspecified type Qualified Code(s): D64.9 - Anemia, unspecified
[2024-05-20] MEDS: PROPRANOLOL HCL 10 MG TAB PO SCH (21:14)
[2024-05-20] MEDS: rifAXIMin 550 MG TABLET PO SCH (21:14)
[2024-05-21 07:51] LABS: BUN Creatinine Ratio 24.6 (10-20); Calcium 8.6 mg/dl (8.6-10.3); Potassium 4.4 mmol/L (3.5-5.1)
[2024-05-21 07:54] LABS: Hematocrit (blood only) 27.7 % (37.0-47.0); Hemoglobin 9.3 g/dl (12.0-16.0); Mean Corpuscular Hemoglobin 28.5 pg (25.0-34.0); Mean Corpuscular Hgb Conc 33.6 g/dL (32.0-36.0); Mean Platelet Volume 11.5 fL (9.4-12.4); Platelet Count 69 K/uL (130-400); RDW Coefficient of Variation 20.6 % (11.5-14.5); RDW Standard Deviation 63.8 fL (36.4-46.3); Red Blood Count 3.26 M/uL (4.20-5.40); White Blood Count 7.24 K/ul (4.8-10.8)
[2024-05-21 09:02] LABS: Anisocytosis Present; Basophils # (auto) 0.03 K/uL (0.00-0.20); Basophils % (auto) 0.4 %; Dohle Bodies 1+; Echinocytes 1+; Eosinophils # (auto) 0.35 K/uL (0.00-0.50); Eosinophils % (auto) 4.8 %; Immature Granulocytes # (auto) 0.04 K/uL (0.01-0.20); Immature Granulocytes % (auto) 0.6 %; Lymphocytes # (auto) 0.61 K/uL (1.20-3.40); Lymphocytes % (auto) 8.4 %; Monocytes # (auto) 0.63 K/uL (0.11-0.59); Monocytes % (auto) 8.7 %; Neutrophils # (auto) 5.58 K/uL (1.40-6.50); Neutrophils % (auto) 77.1 %; Ovalocytes 1+; Polychromasia 1+; Tear Drop Cells 1+
--- NOTE | 2024-05-21 09:30 | Surgery Progress Note ---
Date of Service May 21, 2024 Assessment & Plan (1) H/O exploratory laparotomy: Plan: s/p exlap, subtotal colectomy, and creation of ileostomy on 04/[address] yan wbc 7, hbg 9.3, Cr uptrending some 2.8 (2.5). vital signs are stable ostomy output noted at 750cc over last 12 hours, soft/formed stool noted in bag with some mix of liquid Will need to continue to encourage PO intake to maintain hydration and prevent worsening renal fxn midline abdominal wound with daily dressing changes/packing Admission and Anticipated Discharge Date Admission Date: April 27, 2024 Subjective Patient reports buttock and back pain, requesting re-adjusting. Otherwise no abdominal pain, n/v. Ostomy functioning Physical Exam Physical Exam: awake, appears uncomfortable 2/2 buttock/back pain Gastrointestinal (Abdomen): Percussion/Palpation: abdomen soft; abdomen nontender midline abdominal wound dressing changed by RN this AM. surrounding erythema improving. some serosang drainage noted where superior portion of the wound is being packed. Results & Data Vital Signs (Past 12 Hours) Vital Signs Temp Pulse Pulse Pulse Resp BP Pulse Ox 05/21/24 07:54 97.5 F L 84 18 131/72 99 05/21/24 02:41 97.9 F 82 18 115/76 100 05/21/24 00:00 85 05/20/24 22:28 97.3 F L 89 18 140/78 97 O2 Del Method 05/21/24 07:54 Room Air 05/21/24 02:41 Room Air 05/21/24 00:00 05/20/24 22:28 Room Air PG Care Time/CCT Total # of Minutes Spent Total Time Spent with Patient: Total time spent is greater than 50% in coordination of care (as documented) at patient's floor/unit and/or counseling patient: Coding Level of Care Code 92657 Post Operative Follow-Up Diagnoses H/O exploratory laparotomy Z98.890
--- NOTE | 2024-05-21 13:53 | Hospitalist Progress Note ---
Date of Service May 21, 2024 Assessment & Plan (1) Acute kidney injury superimposed on stage 3b chronic kidney disease: Plan: Creatinine continues to trend upward. Now 2.8. She is on no diuretic therapy. Will follow. Monitor intake and output. Nephrology signed off. (2) Ischemia, bowel: Plan: Status post total colectomy with ileostomy formation. Appreciate surgery consultation and recommendations. She has abdominal wound dehiscence with packing in place. No wound VAC for now. (3) Septic shock: Plan: Present on admission. Status post pressor support. Resolved (4) Anemia: Plan: history of anemia of chronic kidney disease as well as MGUS. Now acute blood loss anemia with EBL 500 mL from surgery. Chronic Eliquis therapy on admission. This was held on admission and subsequently restarted. She has received fresh frozen plasma and multiple units of packed red blood cells. Serial labs. (5) Cirrhosis: Plan: History of Rothman cirrhosis and portal hypertension. Propranolol and rifaximin were restarted on May 20 (6) Chronic diastolic heart failure: Plan: Monitor intake and output. Currently stable (7) Right leg DVT: Plan: Eliquis has been restarted. (8) Morbid obesity: Plan: Supportive care. BMI greater than 40. Significant weight loss recommended (9) Type 2 diabetes mellitus: Plan: ADA diet. Basal insulin therapy. Sliding scale coverage Plan [facility] placement when arrangements are finalized Admission and Anticipated Discharge Date Admission Date: April 27, 2024 Subjective Alert and oriented. No new problems. Platelet count 69,000 and although it is fluctuating daily there has been no need for a platelet transfusion. Creatinine is trending upward, now 2.8. Will follow. Sodium is slightly low but serum osmolarity is 293. Will follow. Surgery entry noted. Eliquis has been discontinued. Placement at [facility] is pending. Review of Systems 2 Review of Systems: Constitutionalno fever or chills ENTno blurred vision, no double vision, no epistaxis, no sore throat Respiratoryno cough, no wheezing, no shortness of breath Cardiacno palpitations, no chest pain, no syncope Luis Fernando nausea, vomiting, diarrhea, melena, hematochezia GUno urinary retention, no urinary incontinence, no dysuria, no hematuria Musculoskeletalno joint pain, no muscle tenderness Skinno bruising, no rashes, no pruritus Neurono isolated weakness, no paresthesia Psychno depression, no anxiety Physical Exam 2 Physical Exam: General-alert and oriented x3, no fever, no chills. Obese HEENT-head atraumatic and normocephalic, pupils equal and reactive to light, extraocular muscles intact Neck-no lymphadenopathy or thyromegaly, trachea midline Chest-clear to auscultation. No rales, wheezing or rhonchi Cardiac-regular rate and rhythm, normal S1 and S2 Abdomen-functioning ileostomy present. Heavily bandaged mid abdominal wound dehiscence. Bowel sounds active. Extremities-no cyanosis, clubbing, or edema Neuro-cranial nerves II through XII intact, motor and sensory function within normal limits, strength symmetrical, no focal deficits Psych-normal affect, normal mood Results & Data Results & Data Vital Signs (Past 12 Hours) Vital Signs Temp Pulse Pulse Resp BP Pulse Ox O2 Del Method 05/21/24 11:08 36.4 C L 81 18 118/70 100 Room Air 05/21/24 07:54 36.4 C L 84 18 131/72 99 Room Air 05/21/24 02:41 36.6 C 82 18 115/76 100 Room Air Laboratory Results 05/21/24 07:08 05/21/24 07:08 PG Care Time/CCT Total # of Minutes Spent Total Time Spent with Patient: Total time spent is greater than 50% in coordination of care (as documented) at patient's floor/unit and/or counseling patient: Coding Level of Care Code 40910 SUB INP/OBS CARE 2/35MIN Diagnoses Acute kidney injury superimposed on stage 3b chronic kidney disease N17.9; N18.32 Ischemia, bowel K55.9 Septic shock A41.9; R65.21 Anemia D64.9 Anemia type: unspecified type Cirrhosis K74.60 Chronic diastolic heart failure I50.32 Right leg DVT I82.401 Morbid obesity E66.01 Type 2 diabetes mellitus E11.9 (4) Anemia Anemia type: unspecified type Qualified Code(s): D64.9 - Anemia, unspecified
[2024-05-22 07:32] LABS: Hematocrit (blood only) 27.4 % (37.0-47.0); Hemoglobin 9.1 g/dl (12.0-16.0); Mean Corpuscular Hemoglobin 28.3 pg (25.0-34.0); Mean Corpuscular Hgb Conc 33.2 g/dL (32.0-36.0); Mean Corpuscular Volume 85.1 fL (80.0-100.0); Mean Platelet Volume 11.5 fL (9.4-12.4); Platelet Count 85 K/uL (130-400); RDW Coefficient of Variation 20.7 % (11.5-14.5); RDW Standard Deviation 64.4 fL (36.4-46.3); Red Blood Count 3.22 M/uL (4.20-5.40); White Blood Count 6.71 K/ul (4.8-10.8)
[2024-05-22 07:40] LABS: BUN Creatinine Ratio 24.2 (10-20); Calcium 8.5 mg/dl (8.6-10.3); Potassium 4.3 mmol/L (3.5-5.1)
[2024-05-22 07:48] LABS: Anisocytosis Present; Basophils # (auto) 0.02 K/uL (0.00-0.20); Basophils % (auto) 0.3 %; Echinocytes 1+; Eosinophils # (auto) 0.39 K/uL (0.00-0.50); Eosinophils % (auto) 5.8 %; Immature Granulocytes # (auto) 0.06 K/uL (0.01-0.20); Immature Granulocytes % (auto) 0.9 %; Lymphocytes # (auto) 0.73 K/uL (1.20-3.40); Lymphocytes % (auto) 10.9 %; Monocytes # (auto) 0.64 K/uL (0.11-0.59); Monocytes % (auto) 9.5 %; Neutrophils # (auto) 4.87 K/uL (1.40-6.50); Neutrophils % (auto) 72.6 %; Ovalocytes 1+; Polychromasia 1+
[2024-05-22] MEDS: PANTOprazole 40 MG TAB PO SCH (09:15)
[2024-05-22] MEDS: D5W AND NSS 1,000 ML IV SCH (10:56)
[2024-05-22] MEDS ORDERED: GLUCAGON FOR INJ 1 MG VIAL SQ PRN (12:48)
[2024-05-22] MEDS ORDERED: DEXTROSE 50% 50 ML SYRINGE IV PRN (12:48)
[2024-05-22] MEDS ORDERED: GLUCOSE 40% GEL 15 GM TUBE PO PRN (12:48)
[2024-05-22] MEDS ORDERED: CARBOHYDRATES FOR HYPOGLYCEMIA PO PRN (12:48)
[2024-05-22] MEDS ORDERED: GLUCOSE 10 TAB/TUBE PO PRN (12:48)
--- NOTE | 2024-05-22 13:04 | Hospitalist Progress Note ---
Date of Service May 22, 2024 Assessment & Plan (1) Acute kidney injury superimposed on stage 3b chronic kidney disease: Plan: Creatinine continues to trend upward. Now 3.0. IV fluids have been started today, May 22. Monitor intake and output. Serial labs. Nephrology has signed off. (2) Ischemia, bowel: Plan: Status post total colectomy with ileostomy formation. Appreciate surgery consultation and recommendations. She has abdominal wound dehiscence with packing in place. No wound VAC for now. (3) Septic shock: Plan: Present on admission. Status post pressor support. Resolved (4) Anemia: Plan: history of anemia of chronic kidney disease as well as MGUS. Now acute blood loss anemia with EBL 500 mL from surgery. Chronic Eliquis therapy on admission. This was held on admission and subsequently restarted. She has received fresh frozen plasma and multiple units of packed red blood cells. Serial labs. (5) Cirrhosis: Plan: History of Rothman cirrhosis and portal hypertension. Propranolol and rifaximin were restarted on May 20 (6) Chronic diastolic heart failure: Plan: Monitor intake and output. Currently stable (7) Right leg DVT: Plan: Eliquis has been restarted. (8) Morbid obesity: Plan: Supportive care. BMI greater than 40. Significant weight loss recommended (9) Type 2 diabetes mellitus: Plan: ADA diet. Basal insulin therapy. Sliding scale coverage (10) Cellulitis of left lower extremity: Plan: Suspected. Now on Ancef, day 1 Plan [facility] placement probably sometime early next week Admission and Anticipated Discharge Date Admission Date: April 27, 2024 Subjective Alert and oriented. Creatinine has risen further up to 3.0 now. Her oral intake is not very good and she has a dry mouth. IV fluids ordered. She is complaining of pain in the left lower extremity and there is evidence of erythema on the posterior aspect of the left calf. Possible cellulitis. Known right leg DVT and she is already on Eliquis. Will resume intravenous antibiotic treatment with Ancef Review of Systems 2 Review of Systems: Constitutionalno fever or chills ENTno blurred vision, no double vision, no epistaxis, no sore throat Respiratoryno cough, no wheezing, no shortness of breath Cardiacno palpitations, no chest pain, no syncope Luis Fernando nausea, vomiting, diarrhea, melena, hematochezia GUno urinary retention, no urinary incontinence, no dysuria, no hematuria Extremities chronic appearing pitting edema bilateral lower extremities below the knees Skinerythema and tenderness along the posterior aspect of the left calf. No bruising, no rashes, no pruritus Neurono isolated weakness, no paresthesia Psychno depression, no anxiety Physical Exam 2 Physical Exam: General-alert and oriented x3, no fever, no chills. Obese HEENT-head atraumatic and normocephalic, pupils equal and reactive to light, extraocular muscles intact. Xerostomia noted Neck-no lymphadenopathy or thyromegaly, trachea midline Chest-clear to auscultation. No rales, wheezing or rhonchi Cardiac-regular rate and rhythm, normal S1 and S2 Abdomen-functioning ileostomy present. Heavily bandaged mid abdominal wound dehiscence. Bowel sounds active. Extremities-erythema and tenderness along the posterior aspect of the left calf. Chronic appearing bilateral lower extremity edema below the knees Neuro-cranial nerves II through XII intact, motor and sensory function within normal limits, strength symmetrical with generalized weakness, no focal deficits Psych-normal affect, normal mood Results & Data Results & Data Vital Signs (Past 12 Hours) Vital Signs Temp Pulse Pulse Resp BP Pulse Ox O2 Del Method 05/22/24 08:00 67 05/22/24 07:28 36.4 C L 67 18 99/50 L 100 Room Air 05/22/24 03:42 36.4 C L 70 14 96/63 L 100 Room Air Laboratory Results 05/22/24 07:00 05/22/24 07:00 PG Care Time/CCT Total # of Minutes Spent Total Time Spent with Patient: Total time spent is greater than 50% in coordination of care (as documented) at patient's floor/unit and/or counseling patient: Coding Level of Care Code 65646 SUB INP/OBS CARE 3/50MIN Diagnoses Acute kidney injury superimposed on stage 3b chronic kidney disease N17.9; N18.32 Ischemia, bowel K55.9 Septic shock A41.9; R65.21 Anemia D64.9 Anemia type: unspecified type Cirrhosis K74.60 Chronic diastolic heart failure I50.32 Right leg DVT I82.401 Morbid obesity E66.01 Type 2 diabetes mellitus E11.9 Cellulitis of left lower extremity L03.116 (4) Anemia Anemia type: unspecified type Qualified Code(s): D64.9 - Anemia, unspecified
--- NOTE | 2024-05-22 14:01 | Surgery Progress Note ---
Date of Service May 22, 2024 Assessment & Plan (1) H/O exploratory laparotomy: Plan: 05/22/2024 POD#25 status post subtotal colectomy for ischemic colitis end ileostomy Talked with the daughter social services director working on placement Discussed with the patient the need to stay well-hydrated We will change the packing in the wound later today Prognosis still remains guarded (2) Ischemic bowel disease: Admission and Anticipated Discharge Date Admission Date: April 27, 2024 Subjective No new complaints she states that she is drinking is much as possible denies any abdominal discomfort daughter is at bedside Physical Exam Physical Exam: Patient is alert coherent without any complaints Still has significant amount of edema most pronounced in lower extremities and both arms with significant amount of ecchymotic areas of both upper extremities Oropharyngeal area moist The abdomen is is benign nontender semiformed stool in ileostomy the midline incision is healing well the packing with minimal drainage did not remove it Some drainage noted at the left lower quadrant Juvenal site (for few days she did not have any drainage of any ascitic fluid) Extremities marked edema Results & Data Vital Signs (Past 12 Hours) Vital Signs Temp Pulse Pulse Resp BP Pulse Ox O2 Del Method 05/22/24 08:00 67 05/22/24 07:28 36.4 C L 67 18 99/50 L 100 Room Air 05/22/24 03:42 36.4 C L 70 14 96/63 L 100 Room Air Laboratory Results The hemoglobin level is maintained approximately 9.1 Renal function continues to deteriorate today is 3.06 yesterday is 2.89
[2024-05-22] MEDS: ceFAZolin 1000MG 1,000 MG/7.5 ML SYR IV SCH (14:31)
[2024-05-22] MEDS: INSULIN ASPART PER UNIT CHARGE SC SCH (17:20)
[2024-05-22] MEDS: SODIUM CHLORIDE 0.9% 500 ML IV ONE (23:28)
[2024-05-23 07:47] LABS: Basophils # (auto) 0.02 K/uL (0.00-0.20); Basophils % (auto) 0.4 %; Eosinophils # (auto) 0.39 K/uL (0.00-0.50); Eosinophils % (auto) 7.4 %; Hematocrit (blood only) 27.2 % (37.0-47.0); Hemoglobin 8.9 g/dl (12.0-16.0); Immature Granulocytes # (auto) 0.09 K/uL (0.01-0.20); Immature Granulocytes % (auto) 1.7 %; Lymphocytes # (auto) 0.74 K/uL (1.20-3.40); Mean Corpuscular Hgb Conc 32.7 g/dL (32.0-36.0); Mean Corpuscular Volume 85.5 fL (80.0-100.0); Mean Platelet Volume 11.1 fL (9.4-12.4); Monocytes # (auto) 0.71 K/uL (0.11-0.59); Monocytes % (auto) 13.4 %; Neutrophils # (auto) 3.34 K/uL (1.40-6.50); Neutrophils % (auto) 63.1 %; Platelet Count 95 K/uL (130-400); RDW Coefficient of Variation 20.7 % (11.5-14.5); Red Blood Count 3.18 M/uL (4.20-5.40); White Blood Count 5.29 K/ul (4.8-10.8)
[2024-05-23 08:03] LABS: BUN Creatinine Ratio 25.9 (10-20); Calcium 8.2 mg/dl (8.6-10.3); Creatinine Clr Calc Pharmacy 17.1 ml/min
[2024-05-23 08:18] LABS: Anisocytosis Present; Polychromasia 1+; Target Cells 1+
[2024-05-23] MEDS: SODIUM CHLORIDE 0.9% 1,000 ML IV SCH (10:27)
--- NOTE | 2024-05-23 12:48 | Hospitalist Progress Note ---
Date of Service May 23, 2024 Assessment & Plan (1) Acute kidney injury superimposed on stage 3b chronic kidney disease: Plan: Creatinine remained stable at 3.0. Hopefully will begin to decline soon. Continue IV fluids. Monitor intake and output. Serial labs. (2) Ischemia, bowel: Plan: Status post total colectomy with ileostomy formation. Appreciate surgery consultation and recommendations. She has abdominal wound dehiscence with packing in place. No wound VAC for now. (3) Septic shock: Plan: Present on admission. Status post pressor support. Resolved (4) Anemia: Plan: history of anemia of chronic kidney disease as well as MGUS. Now acute blood loss anemia with EBL 500 mL from surgery. Chronic Eliquis therapy on admission. This was held on admission and subsequently restarted. She has received fresh frozen plasma and multiple units of packed red blood cells. Serial labs. (5) Cirrhosis: Plan: History of Rothman cirrhosis and portal hypertension. Propranolol and rifaximin were restarted on May 20 . Will check ammonia level today, May 23 (6) Chronic diastolic heart failure: Plan: Monitor intake and output. Currently stable (7) Right leg DVT: Plan: Eliquis has been restarted. (8) Morbid obesity: Plan: Supportive care. BMI greater than 40. Significant weight loss recommended (9) Type 2 diabetes mellitus: Plan: ADA diet. Basal insulin therapy. Sliding scale coverage (10) Cellulitis of left lower extremity: Plan: Suspected. Seems to be improving. Ancef day 2 (11) Acute delirium: Plan: Hospitalization induced. Supportive care Plan [facility] placement probably sometime early next week Admission and Anticipated Discharge Date Admission Date: April 27, 2024 Subjective Awake and pleasant but completely confused. She probably has developed hospital delirium. Will check ammonia level just to make sure this is not an issue due to her history. She states her left lower leg feels better with antibiotic therapy. Creatinine remained stable at 3.0 and hopefully will begin to decrease. Continue IV fluids. Ancef day 2. Review of Systems 2 Review of Systems: Constitutionalno fever or chills ENTno blurred vision, no double vision, no epistaxis, no sore throat Respiratoryno cough, no wheezing, no shortness of breath Cardiacno palpitations, no chest pain, no syncope Luis Fernando nausea, vomiting, diarrhea, melena, hematochezia GUno urinary retention, no urinary incontinence, no dysuria, no hematuria Extremities chronic appearing pitting edema bilateral lower extremities below the knees Skinerythema and tenderness along the posterior aspect of the left calf. No bruising, no rashes, no pruritus Neurono isolated weakness, no paresthesia Psychno depression, no anxiety Physical Exam 2 Physical Exam: General-alert but disoriented. No fever, no chills. Obese HEENT-head atraumatic and normocephalic, pupils equal and reactive to light, extraocular muscles intact. Xerostomia noted Neck-no lymphadenopathy or thyromegaly, trachea midline Chest-clear to auscultation. No rales, wheezing or rhonchi Cardiac-regular rate and rhythm, normal S1 and S2 Abdomen-functioning ileostomy present. Heavily bandaged mid abdominal wound dehiscence. Bowel sounds active. Extremities-erythema and tenderness along the posterior aspect of the left calf has improved. Chronic appearing bilateral lower extremity edema below the knees Neuro-cranial nerves II through XII intact, motor and sensory function within normal limits, strength symmetrical with generalized weakness, no focal deficits Psych-normal affect, normal mood Results & Data Results & Data Vital Signs (Past 12 Hours) Vital Signs Temp Pulse Pulse Resp BP BP Pulse Ox 05/23/24 11:24 36.6 C 71 19 99/63 L 100 05/23/24 08:16 6 L 05/23/24 08:00 05/23/24 07:52 36.8 C 66 19 121/69 98 05/23/24 02:53 36.7 C 62 18 92/51 L 100 O2 Del Method 05/23/24 11:24 Room Air 05/23/24 08:16 05/23/24 08:00 Room Air 05/23/24 07:52 Room Air 05/23/24 02:53 Room Air Laboratory Results 05/23/24 07:34 05/23/24 07:34 PG Care Time/CCT Total # of Minutes Spent Total Time Spent with Patient: Total time spent is greater than 50% in coordination of care (as documented) at patient's floor/unit and/or counseling patient: Coding Level of Care Code 36266 SUB INP/OBS CARE 3/50MIN Diagnoses Acute kidney injury superimposed on stage 3b chronic kidney disease N17.9; N18.32 Ischemia, bowel K55.9 Septic shock A41.9; R65.21 Anemia D64.9 Anemia type: unspecified type Cirrhosis K74.60 Chronic diastolic heart failure I50.32 Right leg DVT I82.401 Morbid obesity E66.01 Type 2 diabetes mellitus E11.9 Cellulitis of left lower extremity L03.116 Acute delirium R41.0 (4) Anemia Anemia type: unspecified type Qualified Code(s): D64.9 - Anemia, unspecified
--- NOTE | 2024-05-23 14:14 | Surgery Progress Note ---
Date of Service May 23, 2024 Assessment & Plan (1) H/O exploratory laparotomy: Plan: s/p exlap, subtotal colectomy, and creation of ileostomy on 04/[address] yan wbc 5.2 Hbg 8.9, Cr 3. vital signs show BPs 80-90s, HRs 70s ostomy output noted at 400cc over last 12 hours, soft/formed stool noted in bag with some mix of liquid Will need to continue to encourage PO intake to maintain hydration and prevent worsening renal fxn midline abdominal wound with daily dressing changed/packing to superior portion of wound Admission and Anticipated Discharge Date Admission Date: April 27, 2024 Supervising Physician Co-Signing Physician Notes seen pt earlier this am helped her with breakfast, mumbling at times but appeared coherent will continue with dressing changes daily packing skin irritation improved VAC system not feasible at this time due to easy irritability of skin near incision and ileostomy awaiting placement Subjective Patient says she is eating fine. No nausea/vomiting. Intermittently mumbling to me. Worked with PT/OT Physical Exam Physical Exam: mumblings and appears fatigued, but able to answer my questions Gastrointestinal (Abdomen): midline abdominal wound surrounding erythema much improved. some bloody slightly purulent drainage noted on superior packing removed and changed Results & Data Vital Signs (Past 12 Hours) Vital Signs Temp Pulse Pulse Resp BP BP Pulse Ox 05/23/24 11:24 97.9 F 71 19 99/63 L 100 05/23/24 08:16 6 L 05/23/24 08:00 05/23/24 07:52 98.2 F 66 19 121/69 98 05/23/24 02:53 98.1 F 62 18 92/51 L 100 O2 Del Method 05/23/24 11:24 Room Air 05/23/24 08:16 05/23/24 08:00 Room Air 05/23/24 07:52 Room Air 05/23/24 02:53 Room Air PG Care Time/CCT Total # of Minutes Spent Total Time Spent with Patient: Total time spent is greater than 50% in coordination of care (as documented) at patient's floor/unit and/or counseling patient: Coding Level of Care Code 92105 Post Operative Follow-Up Diagnoses H/O exploratory laparotomy Z98.890
[2024-05-24 06:54] LABS: BUN Creatinine Ratio 24.1 (10-20); Calcium 8.1 mg/dl (8.6-10.3); Creatinine Clr Calc Pharmacy 16.3 ml/min
[2024-05-24 07:09] LABS: Hematocrit (blood only) 26.8 % (37.0-47.0); Hemoglobin 8.8 g/dl (12.0-16.0); Mean Corpuscular Hemoglobin 28.5 pg (25.0-34.0); Mean Corpuscular Hgb Conc 32.8 g/dL (32.0-36.0); Mean Corpuscular Volume 86.7 fL (80.0-100.0); Mean Platelet Volume 11.1 fL (9.4-12.4); Platelet Count 99 K/uL (130-400); RDW Coefficient of Variation 20.8 % (11.5-14.5); RDW Standard Deviation 64.9 fL (36.4-46.3); Red Blood Count 3.09 M/uL (4.20-5.40); White Blood Count 5.35 K/ul (4.8-10.8)
[2024-05-24 07:16] LABS: ALC (manual) 0.59 K/uL (1.2-3.4); ANC (manual) 4.23 K/uL (1.4-6.5); Anisocytosis Present; Basophils # (manual) 0.05 K/uL (0-0.2); Basophils % (manual) 1 %; Echinocytes 1+; Eosinophils # (manual) 0.16 K/uL (0-0.50); Eosinophils % (manual) 3 %; Lymphocytes # (manual) 0.59 K/uL (1.2-3.4); Lymphocytes % (manual) 11 %; Monocytes # (manual) 0.32 K/uL (0.11-0.59); Monocytes % (manual) 6 %; Neutrophils # (manual) 4.23 K/uL (1.40-6.50); Neutrophils % (manual) 79 %; Polychromasia 1+
--- NOTE | 2024-05-24 08:45 | Surgery Progress Note ---
Date of Service May 24, 2024 Assessment & Plan (1) H/O exploratory laparotomy: Plan: 05/24/2024 POD#27 status post subtotal colectomy with end ileostomy Plan continue packing the incision with plain gauze change daily Reluctant to open the incision more and apply VAC system since patient is on blood thinners and she has significant friability of the granulation tissue on the wound but we will reevaluate next few days [facility] covering the weekend Admission and Anticipated Discharge Date Admission Date: April 27, 2024 Subjective mumbling but coherent Denies any abdominal pain ate most of her breakfast this morning Physical Exam Physical Exam: She responds appropriately although speech is mumbled at times Oropharyngeal area moist No audible rales or wheezing Generalized edema persists most notably lower extremities with skin breakdown around the Juvenal drain site no drainage from the OpSite skin around the opening is improved The abdominal incision overall is free of the significant irritation or excoriation the uppermost part of the incision open approximately 3 cm beefy red easily traumatized with bleeding the packing is intact and was removed able to probe the wound with a Q-tip extends pretty much from the upper aspect of the incision to the local crater which is intact and no drainage appreciated there is no odor was appreciated significant amount of bloody drainage appreciated on the packing was removed Results & Data Vital Signs (Past 12 Hours) Vital Signs Temp Pulse Pulse Resp BP BP Pulse Ox 05/24/24 07:21 36.6 C 71 19 98/60 L 99 05/24/24 07:10 68 05/24/24 02:52 36.7 C 75 18 102/52 L 97 05/23/24 22:04 36.8 C 66 17 92/62 L 99 05/23/24 22:02 75 O2 Del Method 05/24/24 07:21 Room Air 05/24/24 07:10 05/24/24 02:52 Room Air 05/23/24 22:04 Room Air 05/23/24 22:02 Laboratory Results Creatinine continues to deteriorate this morning creatinine is 3.20 yesterday 3.05 Hemoglobin over the relatively stable amount around 9
--- NOTE | 2024-05-24 12:35 | Hospitalist Progress Note ---
Date of Service May 24, 2024 Assessment & Plan (1) Acute kidney injury superimposed on stage 3b chronic kidney disease: Plan: Creatinine is increased slightly to 3.2. Continue IV fluids. Serum osmolarity is elevated as expected. Random urine sodium and random urine creatinine ordered for calculation of sodium and fractional excretion. Monitor intake and output. Serial labs. (2) Ischemia, bowel: Plan: Status post total colectomy with ileostomy formation. Functioning ileostomy right lower quadrant. Appreciate surgery consultation and recommendations. She has open abdominal wound with packing in place. No wound VAC for now. (3) Septic shock: Plan: Present on admission. Status post pressor support. Resolved (4) Anemia: Plan: history of anemia of chronic kidney disease as well as MGUS. Now acute blood loss anemia with EBL 500 mL from surgery. Chronic Eliquis therapy on admission. This was held on admission and subsequently restarted. She has received fresh frozen plasma and multiple units of packed red blood cells. Serial labs. (5) Cirrhosis: Plan: History of Rothman cirrhosis and portal hypertension. Propranolol and rifaximin were restarted on May 20 . Ammonia level 71 on May 23 (6) Chronic diastolic heart failure: Plan: Monitor intake and output. Currently stable (7) Right leg DVT: Plan: Eliquis has been restarted. (8) Morbid obesity: Plan: Supportive care. BMI greater than 40. Significant weight loss recommended (9) Type 2 diabetes mellitus: Plan: ADA diet. Basal insulin therapy. Sliding scale coverage (10) Cellulitis of left lower extremity: Plan: Suspected. Seems to be improving. Ancef day 3 (11) Acute delirium: Plan: Hospitalization induced. Supportive care Plan [facility] placement probably sometime early next week Admission and Anticipated Discharge Date Admission Date: April 27, 2024 Subjective Awake and conversant. She is mildly lethargic however. No fever. Serum osmolarity elevated at 304. Continue IV fluids. Creatinine has increased slightly to 3.2. Urine sodium and urine creatinine ordered for calculation of fractional excretion of sodium. Placement at [facility] pending. Right lower quadrant ileostomy is functioning. Platelet count has improved slightly to 99,000. Review of Systems 2 Review of Systems: Constitutionalno fever or chills ENTno blurred vision, no double vision, no epistaxis, no sore throat Respiratoryno cough, no wheezing, no shortness of breath Cardiacno palpitations, no chest pain, no syncope Luis Fernando nausea, vomiting, diarrhea, melena, hematochezia GUno urinary retention, no urinary incontinence, no dysuria, no hematuria Extremities chronic appearing pitting edema bilateral lower extremities below the knees Skinerythema and tenderness along the posterior aspect of the left calf. No bruising, no rashes, no pruritus Neurono isolated weakness, no paresthesia Psychno depression, no anxiety Physical Exam 2 Physical Exam: General-awake. Conversant. No fever, no chills. Obese HEENT-head atraumatic and normocephalic, pupils equal and reactive to light, extraocular muscles intact. Xerostomia noted Neck-no lymphadenopathy or thyromegaly, trachea midline Chest-clear to auscultation. No rales, wheezing or rhonchi Cardiac-regular rate and rhythm, normal S1 and S2 Abdomen-functioning right lower quadrant ileostomy present. Heavily bandaged mid abdominal wound. Bowel sounds active. Extremities-erythema and tenderness along the posterior aspect of the left calf has improved. Chronic appearing bilateral lower extremity edema below the knees Neuro-cranial nerves II through XII intact, motor and sensory function within normal limits, strength symmetrical with generalized weakness, no focal deficits Psych-normal affect, normal mood Results & Data Results & Data Vital Signs (Past 12 Hours) Vital Signs Temp Pulse Pulse Pulse Resp BP BP 05/24/24 11:39 36.6 C 71 19 100/62 05/24/24 08:00 05/24/24 07:21 36.6 C 71 19 98/60 L 05/24/24 07:10 68 05/24/24 02:52 36.7 C 75 18 102/52 L Pulse Ox O2 Del Method 05/24/24 11:39 97 Room Air 05/24/24 08:00 Room Air 05/24/24 07:21 99 Room Air 05/24/24 07:10 05/24/24 02:52 97 Room Air Laboratory Results 05/24/24 06:09 05/24/24 06:09 PG Care Time/CCT Total # of Minutes Spent Total Time Spent with Patient: Total time spent is greater than 50% in coordination of care (as documented) at patient's floor/unit and/or counseling patient: Coding Level of Care Code 93487 SUB INP/OBS CARE 3/50MIN Diagnoses Acute kidney injury superimposed on stage 3b chronic kidney disease N17.9; N18.32 Ischemia, bowel K55.9 Septic shock A41.9; R65.21 Anemia D64.9 Anemia type: unspecified type Cirrhosis K74.60 Chronic diastolic heart failure I50.32 Right leg DVT I82.401 Morbid obesity E66.01 Type 2 diabetes mellitus E11.9 Cellulitis of left lower extremity L03.116 Acute delirium R41.0 (4) Anemia Anemia type: unspecified type Qualified Code(s): D64.9 - Anemia, unspecified
[2024-05-24] MEDS: SODIUM CHLORIDE 0.9% 1,000 ML IV SCH (12:37)
[2024-05-24 13:57] LABS: Creatinine Urine Random 81.4 mg/dl; Sodium Random Urine < 10 mmol/L
[2024-05-25 07:09] LABS: Hematocrit (blood only) 28.8 % (37.0-47.0); Hemoglobin 9.2 g/dl (12.0-16.0); Mean Corpuscular Hemoglobin 27.8 pg (25.0-34.0); Mean Corpuscular Hgb Conc 31.9 g/dL (32.0-36.0); Mean Platelet Volume 10.6 fL (9.4-12.4); Platelet Count 129 K/uL (130-400); RDW Coefficient of Variation 21.1 % (11.5-14.5); RDW Standard Deviation 67.4 fL (36.4-46.3); Red Blood Count 3.31 M/uL (4.20-5.40); White Blood Count 7.25 K/ul (4.8-10.8)
[2024-05-25 07:12] LABS: BUN Creatinine Ratio 24.9 (10-20); Calcium 8.2 mg/dl (8.6-10.3); Potassium 4.2 mmol/L (3.5-5.1)
[2024-05-25 07:17] LABS: Anisocytosis Present; Basophils # (auto) 0.03 K/uL (0.00-0.20); Basophils % (auto) 0.4 %; Eosinophils # (auto) 0.29 K/uL (0.00-0.50); Immature Granulocytes # (auto) 0.13 K/uL (0.01-0.20); Immature Granulocytes % (auto) 1.8 %; Lymphocytes # (auto) 1.05 K/uL (1.20-3.40); Lymphocytes % (auto) 14.5 %; Monocytes # (auto) 0.62 K/uL (0.11-0.59); Monocytes % (auto) 8.6 %; Neutrophils # (auto) 5.13 K/uL (1.40-6.50); Neutrophils % (auto) 70.7 %; Polychromasia 1+
--- NOTE | 2024-05-25 11:17 | XRay Report ---
XR chest 1V portable HISTORY: 78 years-old Female abnormal breath sounds acute shortness of breath COMPARISON: 04/30/2024 TECHNIQUE: AP view of the chest FINDINGS: Cardiac silhouette is enlarged. Atherosclerosis of the aorta. Pulmonary vascular congestion. Trace pl eural effusions with mild bibasilar atelectasis. No pneumothorax. Cholecystectomy. Bones appear gross ly intact. IMPRESSION: 1. Cardiomegaly with pulmonary vascular congestion. 2. Trace pleural effusions. ACT 112: Negative or not required by law. The above report was generated using voice recognition software. It may contain grammatical, syntax o r spelling errors. Electronically signed by: Victor M Reyna M.D. 05/25/2024 11:16 AM
--- NOTE | 2024-05-25 11:20 | Hospitalist Progress Note ---
Date of Service May 25, 2024 Assessment & Plan (1) Acute kidney injury superimposed on stage 3b chronic kidney disease: Plan: Creatinine is decreased slightly now to 3.0. Fractional excretion is 2.7. She probably has a combination of ATN and prerenal failure. Continue IV fluids. Chest x-ray negative for fluid overload. Serum osmolarity is elevated as expected. Monitor intake and output. Serial labs. (2) Ischemia, bowel: Plan: Status post total colectomy with ileostomy formation. Functioning ileostomy right lower quadrant. Appreciate surgery consultation and recommendations. She has open abdominal wound with packing in place. No wound VAC for now. (3) Septic shock: Plan: Present on admission. Status post pressor support. Resolved (4) Anemia: Plan: history of anemia of chronic kidney disease as well as MGUS. Now acute blood loss anemia with EBL 500 mL from surgery. Chronic Eliquis therapy on admission. This was held on admission and subsequently restarted. She has received fresh frozen plasma and multiple units of packed red blood cells. Serial labs. (5) Cirrhosis: Plan: History of Rothman cirrhosis and portal hypertension. Propranolol and rifaximin were restarted on May 20 . Ammonia level 71 on May 23 (6) Chronic diastolic heart failure: Plan: Monitor intake and output. Currently stable (7) Right leg DVT: Plan: Eliquis has been restarted. (8) Morbid obesity: Plan: Supportive care. BMI greater than 40. Significant weight loss recommended (9) Type 2 diabetes mellitus: Plan: ADA diet. Basal insulin therapy. Sliding scale coverage (10) Cellulitis of left lower extremity: Plan: Suspected. Seems to be improving. Ancef day 4 (11) Acute delirium: Plan: Hospitalization induced. Supportive care Plan [facility] placement probably sometime early next week Admission and Anticipated Discharge Date Admission Date: April 27, 2024 Subjective No significant change. Chest x-ray was ordered due to inspiratory rales heard by nursing staff. No overt CHF or fluid overload seen on x-ray. She probably has a degree of atelectasis and incentive spirometry has been ordered. Continue IV fluids. Creatinine has decreased to 3.0. Fractional excretion is 2.7. She probably has a combination of ATN and prerenal failure. Continue IV fluids for now. Sodium bicarb has also been added orally. Ancef day 4 for the apparent left lower extremity cellulitis. Review of Systems 2 Review of Systems: Constitutionalno fever or chills ENTno blurred vision, no double vision, no epistaxis, no sore throat Respiratoryno cough, no wheezing, no shortness of breath Cardiacno palpitations, no chest pain, no syncope Luis Fernando nausea, vomiting, diarrhea, melena, hematochezia GUno urinary retention, no urinary incontinence, no dysuria, no hematuria Extremities chronic appearing pitting edema bilateral lower extremities below the knees Skinerythema and tenderness along the posterior aspect of the left calf. No bruising, no rashes, no pruritus Neurono isolated weakness, no paresthesia Psychno depression, no anxiety Physical Exam 2 Physical Exam: General-awake. Conversant. No fever, no chills. Obese HEENT-head atraumatic and normocephalic, pupils equal and reactive to light, extraocular muscles intact. Xerostomia noted Neck-no lymphadenopathy or thyromegaly, trachea midline Chest-clear to auscultation. No rales, wheezing or rhonchi Cardiac-regular rate and rhythm, normal S1 and S2 Abdomen-functioning right lower quadrant ileostomy present. Heavily bandaged mid abdominal wound. Bowel sounds active. Extremities-erythema and tenderness along the posterior aspect of the left calf has improved. Chronic appearing bilateral lower extremity edema below the knees Neuro-cranial nerves II through XII intact, motor and sensory function within normal limits, strength symmetrical with generalized weakness, no focal deficits Psych-normal affect, normal mood Results & Data Results & Data Vital Signs (Past 12 Hours) Vital Signs Temp Pulse Resp BP Pulse Ox O2 Del Method 05/25/24 07:19 36.3 C L 65 17 99/59 L 92 Room Air Laboratory Results 05/25/24 06:07 05/25/24 06:07 PG Care Time/CCT Total # of Minutes Spent Total Time Spent with Patient: Total time spent is greater than 50% in coordination of care (as documented) at patient's floor/unit and/or counseling patient: Coding Level of Care Code 80627 SUB INP/OBS CARE 3/50MIN Diagnoses Acute kidney injury superimposed on stage 3b chronic kidney disease N17.9; N18.32 Ischemia, bowel K55.9 Septic shock A41.9; R65.21 Anemia D64.9 Anemia type: unspecified type Cirrhosis K74.60 Chronic diastolic heart failure I50.32 Right leg DVT I82.401 Morbid obesity E66.01 Type 2 diabetes mellitus E11.9 Cellulitis of left lower extremity L03.116 Acute delirium R41.0 (4) Anemia Anemia type: unspecified type Qualified Code(s): D64.9 - Anemia, unspecified
[2024-05-25] MEDS: SODIUM BICARBONATE 650 MG TAB PO SCH (12:23)
[2024-05-25] MEDS: SODIUM CHLORIDE 0.9% 1,000 ML IV SCH (13:12)
[2024-05-26 06:20] LABS: Basophils # (auto) 0.03 K/uL (0.00-0.20); Basophils % (auto) 0.4 %; Eosinophils # (auto) 0.36 K/uL (0.00-0.50); Eosinophils % (auto) 4.5 %; Hematocrit (blood only) 28.5 % (37.0-47.0); Hemoglobin 9.3 g/dl (12.0-16.0); Immature Granulocytes # (auto) 0.22 K/uL (0.01-0.20); Immature Granulocytes % (auto) 2.7 %; Lymphocytes # (auto) 0.98 K/uL (1.20-3.40); Lymphocytes % (auto) 12.1 %; Mean Corpuscular Hemoglobin 28.1 pg (25.0-34.0); Mean Corpuscular Hgb Conc 32.6 g/dL (32.0-36.0); Mean Corpuscular Volume 86.1 fL (80.0-100.0); Mean Platelet Volume 11.2 fL (9.4-12.4); Monocytes # (auto) 0.75 K/uL (0.11-0.59); Monocytes % (auto) 9.3 %; Neutrophils # (auto) 5.74 K/uL (1.40-6.50); Nucleated RBC # (auto) 0.03 K/uL (0.00-0.12); Nucleated RBC % (auto) 0.4 %; Platelet Count 146 K/uL (130-400); RDW Coefficient of Variation 19.9 % (11.5-14.5); RDW Standard Deviation 62.8 fL (36.4-46.3); Red Blood Count 3.31 M/uL (4.20-5.40); White Blood Count 8.08 K/ul (4.8-10.8)
[2024-05-26 06:38] LABS: BUN Creatinine Ratio 24.9 (10-20); Calcium 8.2 mg/dl (8.6-10.3); Creatinine Clr Calc Pharmacy 17.7 ml/min; Potassium 4.2 mmol/L (3.5-5.1)
[2024-05-26] MEDS ORDERED: Nursing to Pharmacy Communication SCH (10:30)
--- NOTE | 2024-05-26 10:54 | Hospitalist Progress Note ---
Date of Service May 26, 2024 Assessment & Plan (1) Acute kidney injury superimposed on stage 3b chronic kidney disease: Plan: Creatinine is decreased slightly now to 2.9. Fractional excretion is 2.7. She probably has a combination of ATN and prerenal failure. Continue IV fluids at 80 cc/h for now. Chest x-ray negative for fluid overload. Serum osmolarity was elevated as expected. Monitor intake and output. Serial labs. (2) Ischemia, bowel: Plan: Status post total colectomy with ileostomy formation. Functioning ileostomy right lower quadrant. Appreciate surgery consultation and recommendations. She has open abdominal wound with packing in place. No wound VAC for now. (3) Septic shock: Plan: Present on admission. Status post pressor support. Resolved (4) Anemia: Plan: history of anemia of chronic kidney disease as well as MGUS. Now acute blood loss anemia with EBL 500 mL from surgery. Chronic Eliquis therapy on admission. This was initially held and subsequently restarted. She has received fresh frozen plasma and multiple units of packed red blood cells. Serial labs. (5) Cirrhosis: Plan: History of Rothman cirrhosis and portal hypertension. Propranolol and rifaximin were restarted on May 20 . Ammonia level 71 on May 23 (6) Chronic diastolic heart failure: Plan: Monitor intake and output. Currently stable (7) Right leg DVT: Plan: Eliquis has been restarted. (8) Morbid obesity: Plan: Supportive care. BMI greater than 40. Significant weight loss recommended (9) Type 2 diabetes mellitus: Plan: ADA diet. Basal insulin therapy. Sliding scale coverage (10) Cellulitis of left lower extremity: Plan: Suspected. Seems to be improving. Ancef day 5 (11) Acute delirium: Plan: Hospitalization induced. Now appears to have resolved. Supportive care Plan [facility] placement probably sometime early next week Admission and Anticipated Discharge Date Admission Date: April 27, 2024 Subjective Easily awakened from sleep. Delirium appears to have resolved. Creatinine is down slightly to 2.9. Her renal insufficiency probably is a combination of ATN and prerenal causes. Serum osmolarity was elevated at 304. Fractional sodium excretion is 2.7. She remains on intravenous fluids at 80 mL/h. Ancef day 5 for the left lower extremity cellulitis which seems to be slowly improving. Review of Systems 2 Review of Systems: Constitutionalno fever or chills ENTno blurred vision, no double vision, no epistaxis, no sore throat Respiratoryno cough, no wheezing, no shortness of breath Cardiacno palpitations, no chest pain, no syncope Luis Fernando nausea, vomiting, diarrhea, melena, hematochezia GUno urinary retention, no urinary incontinence, no dysuria, no hematuria Extremities chronic appearing pitting edema bilateral lower extremities below the knees Skinerythema and tenderness along the posterior aspect of the left calf. No bruising, no rashes, no pruritus Neurono isolated weakness, no paresthesia Psychno depression, no anxiety Physical Exam 2 Physical Exam: General-awake. Conversant. No fever, no chills. Obese HEENT-head atraumatic and normocephalic, pupils equal and reactive to light, extraocular muscles intact. Xerostomia noted Neck-no lymphadenopathy or thyromegaly, trachea midline Chest-clear to auscultation. No rales, wheezing or rhonchi Cardiac-regular rate and rhythm, normal S1 and S2 Abdomen-functioning right lower quadrant ileostomy present. Heavily bandaged mid abdominal wound. Bowel sounds active. Extremities-erythema and tenderness along the posterior aspect of the left calf has improved. Chronic appearing bilateral lower extremity edema below the knees Neuro-cranial nerves II through XII intact, motor and sensory function within normal limits, strength symmetrical with generalized weakness, no focal deficits Psych-normal affect, normal mood Results & Data Results & Data Vital Signs (Past 12 Hours) Vital Signs Temp Pulse Resp BP Pulse Ox O2 Del Method 05/26/24 07:36 36.6 C 65 18 100/61 93 Room Air Laboratory Results 05/26/24 05:47 05/26/24 05:47 PG Care Time/CCT Total # of Minutes Spent Total Time Spent with Patient: Total time spent is greater than 50% in coordination of care (as documented) at patient's floor/unit and/or counseling patient: Coding Level of Care Code 27855 SUB INP/OBS CARE 2/35MIN Diagnoses Acute kidney injury superimposed on stage 3b chronic kidney disease N17.9; N18.32 Ischemia, bowel K55.9 Septic shock A41.9; R65.21 Anemia D64.9 Anemia type: unspecified type Cirrhosis K74.60 Chronic diastolic heart failure I50.32 Right leg DVT I82.401 Morbid obesity E66.01 Type 2 diabetes mellitus E11.9 Cellulitis of left lower extremity L03.116 Acute delirium R41.0 (4) Anemia Anemia type: unspecified type Qualified Code(s): D64.9 - Anemia, unspecified
[2024-05-26] MEDS: SODIUM CHLORIDE 0.9% 1,000 ML IV SCH (11:52)
[2024-05-27 06:23] LABS: Basophils # (auto) 0.03 K/uL (0.00-0.20); Basophils % (auto) 0.4 %; Eosinophils # (auto) 0.29 K/uL (0.00-0.50); Eosinophils % (auto) 3.4 %; Hematocrit (blood only) 27.3 % (37.0-47.0); Hemoglobin 8.8 g/dl (12.0-16.0); Immature Granulocytes # (auto) 0.12 K/uL (0.01-0.20); Immature Granulocytes % (auto) 1.4 %; Lymphocytes % (auto) 9.5 %; Mean Corpuscular Hemoglobin 28.1 pg (25.0-34.0); Mean Corpuscular Hgb Conc 32.2 g/dL (32.0-36.0); Mean Corpuscular Volume 87.2 fL (80.0-100.0); Mean Platelet Volume 10.4 fL (9.4-12.4); Monocytes # (auto) 0.77 K/uL (0.11-0.59); Monocytes % (auto) 9.2 %; Neutrophils % (auto) 76.1 %; Nucleated RBC # (auto) 0.04 K/uL (0.00-0.12); Nucleated RBC % (auto) 0.5 %; Platelet Count 135 K/uL (130-400); RDW Coefficient of Variation 21.3 % (11.5-14.5); RDW Standard Deviation 67.3 fL (36.4-46.3); Red Blood Count 3.13 M/uL (4.20-5.40); White Blood Count 8.41 K/ul (4.8-10.8)
[2024-05-27 06:50] LABS: Anisocytosis Present; BUN Creatinine Ratio 24.2 (10-20); Calcium 8.2 mg/dl (8.6-10.3); Creatinine Clr Calc Pharmacy 17.4 ml/min; Echinocytes 1+; Polychromasia 2+; Potassium 4.1 mmol/L (3.5-5.1)
--- NOTE | 2024-05-27 08:22 | Surgery Progress Note ---
Date of Service May 27, 2024 Assessment & Plan (1) H/O exploratory laparotomy: Plan: 05/27/24 POD#30 status post subtotal colectomy with end ileostomy for ischemic bowel Once the wound is described above it was repacked with quarter inch plain gauze a total considerably less amount to pack the wound dressing reapplied Will continue changing the packing once a day with the easy friability of the tissue and bleeding patient not a candidate for VAC system career services coordinator working on placement Overall prognosis still very guarded Admission and Anticipated Discharge Date Admission Date: April 27, 2024 Subjective Moaning this morning just barely touching her belly in any area stimulate this response Physical Exam Physical Exam: Oropharyngeal area moist No audible rales or rhonchi The abdomen ileostomy with good output semisolid The left lower quadrant Juvenal drain site no further drainage appreciated the skin resolving irritation The midline incision once the dressing was removed the uppermost aspect of the incision has approximately 4 cm in most wound with skin dehiscence with packing in place blood-tinged few other areas of the incision just barely touching it could stimulate some bleeding patient is on apixaban 2.5 mg twice daily The packing was removed the wound was Q-tip could not appreciate the skin separation the subcutaneous separation is feeling and there is no odor the packing is soaked with some blood Results & Data Vital Signs (Past 12 Hours) Vital Signs Temp Pulse Pulse Resp BP BP Pulse Ox 05/27/24 07:45 36.1 C L 73 18 99/65 L 100 05/27/24 06:35 35.7 C L 05/27/24 05:43 35.4 C L 05/27/24 05:02 35.6 C L 05/27/24 04:23 35.6 C L 05/27/24 04:06 34.2 C L 05/27/24 03:14 35.5 C L 05/27/24 01:49 33.8 C L 05/27/24 01:12 34.5 C L 05/27/24 00:36 34.2 C L 64 14 98/62 L 97 05/27/24 00:09 34.1 C L 05/26/24 23:36 34.4 C L 05/26/24 23:04 33.8 C L O2 Del Method 05/27/24 07:45 Room Air 05/27/24 06:35 05/27/24 05:43 05/27/24 05:02 05/27/24 04:23 05/27/24 04:06 05/27/24 03:14 05/27/24 01:49 05/27/24 01:12 05/27/24 00:36 Room Air 05/27/24 00:09 05/26/24 23:36 05/26/24 23:04 Laboratory Results Hemoglobin 8.8 yesterday 9.3 Creatinine rising 3.02 today yesterday 2.97
[2024-05-27 09:53] LABS: Magnesium 1.4 mg/dl (1.7-2.4)
[2024-05-27] MEDS: MAGNESIUM SULFATE / D5W 1 GM/100 ML BAG IV SCH (11:13)
--- NOTE | 2024-05-27 17:24 | Hospitalist Progress Note ---
Date of Service May 27, 2024 Assessment & Plan (1) Acute kidney injury superimposed on stage 3b chronic kidney disease: Plan: Creatinine is still at 3. She probably has a combination of ATN and prerenal failure. Continue IV fluids at 80 cc/h for now. Chest x-ray negative for fluid overload. Serum osmolarity was elevated as expected. Monitor intake and output. Serial labs. (2) Ischemia, bowel: Plan: Status post total colectomy with ileostomy formation. Functioning ileostomy right lower quadrant. Appreciate surgery consultation and recommendations. She has open abdominal wound with packing in place. No wound VAC for now. (3) Septic shock: Plan: Present on admission. Status post pressor support. Resolved (4) Anemia: Plan: history of anemia of chronic kidney disease as well as MGUS. Now acute blood loss anemia with EBL 500 mL from surgery. Chronic Eliquis therapy on admission. This was initially held and subsequently restarted. She has received fresh frozen plasma and multiple units of packed red blood cells. Serial labs. (5) Cirrhosis: Plan: History of Rothman cirrhosis and portal hypertension. Propranolol and rifaximin were restarted on May 20 . Ammonia level 58 on 05/27 (6) Chronic diastolic heart failure: Plan: Monitor intake and output. Currently stable (7) Right leg DVT: Plan: Eliquis has been restarted. (8) Morbid obesity: Plan: Supportive care. BMI greater than 40. Significant weight loss recommended (9) Type 2 diabetes mellitus: Plan: ADA diet. Basal insulin therapy. Sliding scale coverage (10) Cellulitis of left lower extremity: Plan: Suspected. Seems to be improving. Ancef day 6 (11) Acute delirium: Plan: Hospitalization induced. Now appears to have resolved. Supportive care but currently encephalopathic. Plan Spoke to patient's niece and brother about guarded prognosis given advanced age, Rothman cirrhosis, CKD, now with EMY, new DVT, post surgical. Despite a 30-day hospitalization, today patient is encephalopathic. Consult palliative care Admission and Anticipated Discharge Date Admission Date: April 27, 2024 Subjective Patient was seen and examined at 10:45 AM. She was very drowsy. She was accompanied by her niece and brother at the bedside. Per niece, patient becomes drowsy when her magnesium is low. Magnesium this morning was checked to be at 1.4. Magnesium IV and p.o. started. Review of Systems Review of Systems: All systems reviewed & are unremarkable except as noted in Subjective Physical Exam Physical Exam: General: Very drowsy. Heart: S1, S2/regular rate and rhythm, no murmur rubs or gallops Lungs: Clear to auscultation bilaterally. Normal effort Abdomen: Soft/nontender/nondistended. No hepatosplenomegaly. Colostomy bag noted. Extremities: No clubbing/cyanosis. Leg edema bilaterally Behavior: Appropriate, cooperative Results & Data Results & Data Vital Signs (Past 12 Hours) Vital Signs Temp Pulse Resp BP Pulse Ox O2 Del Method 05/27/24 14:18 36.3 C L 99 H 18 121/67 99 Room Air 05/27/24 07:45 36.1 C L 73 18 99/65 L 100 Room Air 05/27/24 06:35 35.7 C L 05/27/24 05:43 35.4 C L Laboratory Results Abnormal lab results 05/26/24 05/27/24 05/27/24 Range/Units 20:40 05:49 07:50 RBC 3.13 L (4.20-5.40) M/uL Hgb 8.8 L (12.0-16.0) g/dl Hct 27.3 L (37.0-47.0) % RDW Std Deviation 67.3 H (36.4-46.3) fL RDW Coeff of Leah 21.3 H (11.5-14.5) % Lymph # (Auto) 0.80 L (1.20-3.40) K/uL Perry # (Auto) 0.77 H (0.11-0.59) K/uL Chloride 118 H (98-107) mmol/L Carbon Dioxide 12 L (21-32) mmol/L BUN 73 H (6-23) mg/dl Creatinine 3.02 H (0.6-1.2) mg/dl BUN/Creatinine Ratio 24.2 H (10-20) Glucose 155 H (70-99(Fasting)) mg/dl POC Glucose 165 H 155 H (70-99) mg/dl Calcium 8.2 L (8.6-10.3) mg/dl Magnesium 1.4 L (1.7-2.4) mg/dl 05/27/24 05/27/24 Range/Units 11:38 16:28 RBC (4.20-5.40) M/uL Hgb (12.0-16.0) g/dl Hct (37.0-47.0) % RDW Std Deviation (36.4-46.3) fL RDW Coeff of Leah (11.5-14.5) % Lymph # (Auto) (1.20-3.40) K/uL Perry # (Auto) (0.11-0.59) K/uL Chloride (98-107) mmol/L Carbon Dioxide (21-32) mmol/L BUN (6-23) mg/dl Creatinine (0.6-1.2) mg/dl BUN/Creatinine Ratio (10-20) Glucose (70-99(Fasting)) mg/dl POC Glucose 144 H 173 H (70-99) mg/dl Calcium (8.6-10.3) mg/dl Magnesium (1.7-2.4) mg/dl PG Care Time/CCT Total # of Minutes Spent Total Time Spent with Patient: Total time spent is greater than 50% in coordination of care (as documented) at patient's floor/unit and/or counseling patient: Coding Level of Care Code 23627 SUB INP/OBS CARE 2/35MIN Diagnoses Acute kidney injury superimposed on stage 3b chronic kidney disease N17.9; N18.32 Ischemia, bowel K55.9 Septic shock A41.9; R65.21 Anemia D64.9 Anemia type: unspecified type Cirrhosis K74.60 Chronic diastolic heart failure I50.32 Right leg DVT I82.401 Morbid obesity E66.01 Type 2 diabetes mellitus E11.9 Cellulitis of left lower extremity L03.116 Acute delirium R41.0 (4) Anemia Anemia type: unspecified type Qualified Code(s): D64.9 - Anemia, unspecified
[2024-05-27] MEDS: MAGNESIUM OXIDE 400 MG TAB PO SCH (20:26)
[2024-05-27] MEDS: SODIUM CHLORIDE 0.9% 500 ML IV ONE (20:42)
[2024-05-27] MEDS: ALBUMIN 5% 250 ML IV ONE (20:42)
--- NOTE | 2024-05-27 21:15 | Communication Note ---
Date of Service: May 27, 2024 Notified by nursing ~7:30PM that pt was hypotensive (left arm 69/29, 77/46; right arm 85/51, 70/29). Pt was seen at bedside. She was noted to be moaning in response to BP retrievals. She appears hypervolemic on exam; suspect pt is intravascularly dry with 3rd spacing secondary to her decreased albumin, poor PO intake/nutrition status, and decreased kidney function. A manual BP was requested and recorded as 92/58. I called pt's niece and emergency contact, Rosalind Joel, to further clarify pt's wishes moving forward and to give an update. Rosalind relays understanding of the gravity of the pt's situation but is hopeful that if the pt's mental status improves enough to the point where she can participate in therapy then that will help progress things forward. Rosalind notes that in the past when the pt has been confused her magnesium was low which prompted that to be checked by day team- she was ordered 3g of IV magnesium d/t mag level of 1.4. Rosalind and I discussed the pt's delicate fluid balance situation with hypotension and intravascular depletion in relation to her lack of PO intake and kidney function decline. Rosalind relays that they are "taking it day by day." Rosalind confirms that the pt is definitely DNR/DNI and would not want any type of resuscitation if her heart were to stop. However, Rosalind states that she believes that the pt would like medications such as pressors in order to keep her BP where it needs to be. Rosalind is agreeable to this. I informed Rosalind that we would give fluids and see if this could sustain the pt's BP; if not, I discussed the possibility of transfer to the ICU for pressors which she agrees with. If any significant changes overnight, Rosalind would like a call for an update, even if it is the middle of the night. ~10:45PM: Notified that pt remains hypotensive (75/43, 68/32) after albumin 5% 250cc x1 and 500cc NS x1. 1L NS bolus ordered and maintenance IVFs increased to 100 cc/hr. ~1:00AM: Despite additional fluids, pt's BP remained hypotensive. Discussed pt case with ICU who recommended lab work, additional fluids, and stress dose steroids. An additional 500cc of NS and 250cc of 5% albumin were ordered in addition to 100mg of hydrocortisone IV. Pt upgraded to PCU. ~4:00AM: Lab work revealed new leukocytosis to 11.74, Hgb stable at 8.1, slightly worse Cr at 3.18, lactate 1.5, procal 0.91, and TSH 7.299. Due to new leukocytosis and elevated procal in the setting of multiple possible sources of infection (open abdominal wound, cellulitis, etc), will hold cefazolin and give one time dose of zosyn. Blood and wound cultures were collected prior to zosyn administration. ~5:00AM: Updated pt's niece, Rosalind, by phone. We discussed that the pt was moved to a higher level of care d/t her condition. Pt's BPs have improved to mainly 90s/60s (MAP >65). We discussed the lab work received overnight indicating a possible new infection and that a different antibiotic was given to cover for this. Rosalind notes she will be in to visit the pt this AM- Rosalind also relays frustrations concerning a correction/SNF/rehab being recommended for the pt upon discharge; I relayed to Rosalind my concerns over the pt's current condition, how her prognosis is still guarded at this point, and how she will require further medical care/treatment if she were to pull through this. ~5:45AM: Nursing update that pt's temperature improved to 36.2C from 35C but BP downtrended to 76/42. 500cc bolus of NS ordered. At this point, I would recommend continued conversations with the pt (when able) and Rosalind/pt's son concerning goals of care moving forward and what measures are to be taken/not taken. I would also recommend f/u on lab work and cultures drawn overnight to decide whether pt's cefazolin should be continued or switched out for a more broad spectrum antibiotic. Resident Activity Tracking Resident Involvement: Resident Care Provided Care Provided: Adult Hospital Medicine
[2024-05-27] MEDS: SODIUM CHLORIDE 0.9% 1,000 ML IV ONE (23:07)
[2024-05-28] MEDS: SODIUM CHLORIDE 0.9% 500 ML IV ONE ×3 (01:52→09:15)
[2024-05-28] MEDS: HYDROCORTISONE SOD 100 MG in SYRINGE 0 ML IV STA (02:00)
[2024-05-28] MEDS: ALBUMIN 5% 250 ML IV ONE ×2 (02:00→09:17)
[2024-05-28 03:08] LABS: Anisocytosis Present; Basophils # (auto) 0.03 K/uL (0.00-0.20); Basophils % (auto) 0.3 %; Echinocytes 1+; Eosinophils # (auto) 0.12 K/uL (0.00-0.50); Hematocrit (blood only) 25.4 % (37.0-47.0); Hemoglobin 8.1 g/dl (12.0-16.0); Immature Granulocytes # (auto) 0.13 K/uL (0.01-0.20); Immature Granulocytes % (auto) 1.1 %; Lymphocytes # (auto) 1.07 K/uL (1.20-3.40); Lymphocytes % (auto) 9.1 %; Mean Corpuscular Hemoglobin 27.3 pg (25.0-34.0); Mean Corpuscular Hgb Conc 31.9 g/dL (32.0-36.0); Mean Corpuscular Volume 85.5 fL (80.0-100.0); Mean Platelet Volume 11.1 fL (9.4-12.4); Monocytes # (auto) 0.72 K/uL (0.11-0.59); Monocytes % (auto) 6.1 %; Neutrophils # (auto) 9.67 K/uL (1.40-6.50); Neutrophils % (auto) 82.4 %; Nucleated RBC # (auto) 0.05 K/uL (0.00-0.12); Nucleated RBC % (auto) 0.4 %; Platelet Count 131 K/uL (130-400); Polychromasia 2+; RDW Coefficient of Variation 21.6 % (11.5-14.5); RDW Standard Deviation 67.1 fL (36.4-46.3); Red Blood Count 2.97 M/uL (4.20-5.40); White Blood Count 11.74 K/ul (4.8-10.8)
[2024-05-28 03:10] LABS: Alanine Aminotransferase < 3 U/L (7-52); Albumin Globulin Ratio 0.9 (0.9-2); Albumin Level 2.3 gm/dl (3.4-5.0); Alkaline Phosphatase 180 U/L (34-104); Anion Gap 7 (3-11); Aspartate Aminotransferase 21 U/L (13-39); BUN Creatinine Ratio 22.6 (10-20); Bilirubin,Total 0.6 mg/dl (0.2-1.0); Blood Urea Nitrogen 72 mg/dl (6-23); Carbon Dioxide 11 mmol/L (21-32); Chloride 120 mmol/L (98-107); Creatinine Clr Calc Pharmacy 16.5 ml/min; Globulin 2.5 gm/dl (2.5-4.0); Glucose 153 mg/dl (70-99(Fasting)); Magnesium 1.9 mg/dl (1.7-2.4); Phosphorus 4.6 mg/dl (2.5-4.9); Potassium 4.1 mmol/L (3.5-5.1); Sodium 138 mmol/L (136-145); Thyroid Stimulating Hormone 7.299 uIu/ml (0.300-4.500); Total Protein 4.8 gm/dl (6.0-8.3)
[2024-05-28 03:11] LABS: T4 Free Thyroxine 0.83 ng/dl (0.61-1.60)
[2024-05-28] MEDS: PIPERACILLIN/TAZOBACTAM 4.5 GM/100 ML BAG IV ONE (04:01)
[2024-05-28] MEDS: ACETAMINOPHEN 1,000 MG/100 ML VIAL IV STA (04:35)
[2024-05-28 07:04] LABS: Basophils # (auto) 0.02 K/uL (0.00-0.20); Basophils % (auto) 0.2 %; Eosinophils # (auto) 0.02 K/uL (0.00-0.50); Eosinophils % (auto) 0.2 %; Hematocrit (blood only) 24.5 % (37.0-47.0); Hemoglobin 7.7 g/dl (12.0-16.0); Immature Granulocytes # (auto) 0.14 K/uL (0.01-0.20); Immature Granulocytes % (auto) 1.3 %; Lymphocytes # (auto) 0.56 K/uL (1.20-3.40); Lymphocytes % (auto) 5.4 %; Mean Corpuscular Hemoglobin 27.8 pg (25.0-34.0); Mean Corpuscular Hgb Conc 31.4 g/dL (32.0-36.0); Mean Corpuscular Volume 88.4 fL (80.0-100.0); Mean Platelet Volume 10.6 fL (9.4-12.4); Monocytes % (auto) 2.9 %; Neutrophils # (auto) 9.36 K/uL (1.40-6.50); Nucleated RBC # (auto) 0.04 K/uL (0.00-0.12); Nucleated RBC % (auto) 0.4 %; Platelet Count 112 K/uL (130-400); RDW Coefficient of Variation 21.8 % (11.5-14.5); RDW Standard Deviation 69.5 fL (36.4-46.3); Red Blood Count 2.77 M/uL (4.20-5.40)
[2024-05-28 07:32] LABS: Anisocytosis Present; Echinocytes 1+; Polychromasia 1+
[2024-05-28 07:35] LABS: BUN Creatinine Ratio 24.3 (10-20); Calcium 7.8 mg/dl (8.6-10.3); Creatinine Clr Calc Pharmacy 17.8 ml/min; Potassium 4.3 mmol/L (3.5-5.1)
--- NOTE | 2024-05-28 09:01 | Surgery Progress Note ---
Date of Service May 28, 2024 Assessment & Plan (1) Ischemic bowel disease: Plan: POD#31 status post subtotal colectomy with end ileostomy for ischemic bowel patient status declining over last few days, persistently hypotensive despite IVF and albumin administration. urine output decreasing labs show WBC 10.4, hbg 7.7, BUN 74, Cr 3, lactate normal at 1.5 she is not verbally responsive to me this AM, eyes closed with more laborious breathing than prior wound cx's and blood cultures taken, hospitalists adjusting IV abx as needed and in discussions with family regarding how aggressive they would like to be with treatments moving forward should she necessitate presssors, etc... wound repacked/changed by surgical team this am Admission and Anticipated Discharge Date Admission Date: April 27, 2024 Subjective Patient resting in bed with eyes closed. mouth breathing. Unable to answer questions this AM. Physical Exam Physical Exam: resting, eyes closed. appears unwell Gastrointestinal (Abdomen): midline wound with couple areas of bloody/purulent drainage noted, bloody drainage noted to superior wound packing. changed. old CRIS drain site completely healed. ostomy functioning. Results & Data Vital Signs (Past 12 Hours) Vital Signs Temp Pulse Pulse Pulse Resp BP BP 05/28/24 07:36 84/40 L 05/28/24 07:29 82 70/40 L 05/28/24 06:59 97.3 F L 83 18 96/53 L 05/28/24 06:18 90/56 L 05/28/24 05:37 97.2 F L 76/42 L 05/28/24 04:29 98/61 L 05/28/24 03:51 95.0 F L 05/28/24 03:25 75 20 94/64 L 05/28/24 02:47 76 05/28/24 02:42 78 18 93/62 L 05/28/24 02:23 74 20 88/55 L 05/28/24 02:21 74 20 73/47 L 05/28/24 02:03 93.7 F L 75 18 64/39 L 05/28/24 02:00 95.0 F L 05/28/24 00:53 72 18 88/55 L 05/28/24 00:25 71 78/44 L 05/28/24 00:15 81/36 L 05/27/24 22:26 106/61 05/27/24 22:11 95.9 F L 71 18 84/46 L Pulse Ox O2 Del Method 05/28/24 07:36 05/28/24 07:29 05/28/24 06:59 100 Room Air 05/28/24 06:18 05/28/24 05:37 05/28/24 04:29 05/28/24 03:51 05/28/24 03:25 100 Room Air 05/28/24 02:47 05/28/24 02:42 100 Room Air 05/28/24 02:23 100 Room Air 05/28/24 02:21 100 Room Air 05/28/24 02:03 96 Room Air 05/28/24 02:00 05/28/24 00:53 100 Room Air 05/28/24 00:25 100 Room Air 05/28/24 00:15 05/27/24 22:26 05/27/24 22:11 100 Room Air PG Care Time/CCT Total # of Minutes Spent Total Time Spent with Patient: Total time spent is greater than 50% in coordination of care (as documented) at patient's floor/unit and/or counseling patient: Coding Level of Care Code 32287 Post Operative Follow-Up Diagnoses Ischemic bowel disease K55.9
--- NOTE | 2024-05-28 11:42 | Palliative Care Consultation ---
Date of Consultation May 28, 2024 Assessment & Plan (1) Dyspnea and respiratory abnormalities: Uncontrolled using accessory muscle and occ grunting in signif distress will ask for GIP eval to assist with expert mgt and in the meantime I will order some prn dilaudid to help alleviate her immediate suffering while we wait for hospice. (2) Agitation: Terminal agitation, very poorly controlled I have asked for GIP to assist with expert mgt but in the meantime, to alleviate immediate suffering while we wait for hospice, I have ordered Ativan to provide some comfort. (3) Generalized weakness: (4) Hypotension: (5) Discussion about advance care planning held with family member: A 30min face to face ACP meeting was held with laura and HORACIO/Rosalind Joel who is known to me from our interactions in the care of her father who follows with me in OP clinic. Rosalind and i have had prior chance to speak of Ms Dudley and her overall decline. We spoke about the current 30 day admission, prolonged complicated course and overall continued decline in spite of escalated measures. I shared my worry that patient is transitioning from a process of living to a process of dying. I recommended comfort and Rosalind agreed, adding that she knows Mrs Dudley's time is coming to an end and she has been finalizing plans in accordance with Mrs Dudley's wishes. Rosalind asks about moving her to comfort and we discussed [facility] with addition of hospice. We will ask for GIP consult. (6) Palliative care by specialist: (7) Shock circulatory: (8) Acute kidney injury superimposed on stage 4 chronic kidney disease: (9) Ischemic bowel disease: (10) Septic shock: Plan [employer] rx written. CM to obtain a GIP eval: Mrs Dudley has uncontrolled dyspnea and agitation suggestive of the start of terminal agitation. I have ordered some Dilaudid and Ativan IV now to relieve her immediate suffering and not prolong it while awaiting the GIP eval but i believe she needs expert hospice mgt for ongoing needs and family support. There are complex family dynamics, three sons and only 1 is closely involved while the other 2 are more distant. patient's brother is in the ICU with urosepsis and on HD, but he is gently improving. Rosalind/HORACIO is primary caregiver for patient and also for her father/pt's brother and there is definitely some caregiver burnout. Thank you for allowing us to participate in the ongoing care of this patient. Please page with any additional concerns. Glendy Mckeon DNP Director, Palliative Medicine History of Present Illness Reason for Consultation: GOC, progressive decline Attending Physician: Alphonse Ling MD Allergies Allergy/AdvReac Type Severity Reaction Status Date / Time No Known Allergies Allergy Verified 02/15/24 02:39 Home Medications Medication Instructions Recorded Confirmed Type cholecalciferol (vitamin D3) 50 2,000 unit PO QAM 07/01/18 03/07/24 History mcg (2,000 unit) capsule (Vitamin D3) multivitamin 1 tab PO QAM 10/14/19 03/07/24 History vitamin E 268 mg (400 unit) capsule 400 unit PO QAM 08/14/20 03/07/24 History coenzyme Q10 200 mg capsule 200 mg PO DAILY 11/01/21 03/07/24 History magnesium chloride 64 mg 128 mg (2 x 64 mg) PO TID #540 tabs 09/08/22 03/07/24 Rx (magnesium chloride) tablet,delayed release rifaximin 550 mg tablet (Xifaxan) 550 mg PO BID #60 tabs 07/14/23 03/07/24 Rx atorvastatin 10 mg tablet 10 mg PO HS #90 tabs 10/27/23 03/07/24 Rx blood-glucose meter,continuous #1 ea 11/15/23 03/07/24 Rx (Dexcom G7 Medical Technical Writer) blood-glucose sensor (Dexcom G7 #1 ea 11/15/23 03/07/24 Rx Sensor device) pen needle, diabetic 31 gauge x #100 ea 11/15/23 03/07/24 Rx 5/16" (BD Ultra-Fine Short Pen Needle) spironolactone 25 mg tablet 25 mg PO QAM 12/06/23 03/07/24 History furosemide 40 mg tablet 40 mg PO BID 01/18/24 03/07/24 History insulin aspart U-100 100 unit/mL 5 unit subcut BIDM 02/15/24 03/07/24 History (3 mL) subcutaneous pen (Novolog FlexPen U-100 Insulin aspart) dextromethorphan-guaifenesin 5 10 ml PO Q6H PRN cough #500 mL 02/18/24 03/07/24 Rx mg-100 mg/5 mL oral liquid (Robitussin Cough-Chest Congestion DM) propranolol 10 mg tablet 10 mg PO TID 90 days #270 tabs 02/26/24 03/07/24 Rx apixaban 2.5 mg tablet (Eliquis) 2.5 mg PO BID #60 tabs 03/04/24 03/07/24 Rx benzonatate 100 mg capsule 100 mg PO TID PRN cough #20 caps 03/07/24 03/07/24 Rx silver sulfadiazine 1 % topical 1 applic topical DAILY 03/07/24 03/07/24 History cream (SSD) levothyroxine 75 mcg tablet 75 mcg PO DAILY #90 tabs 03/27/24 Rx insulin glargine 100 unit/mL (3 7 unit (0.07 mL) subcut QAM #6 mL 04/04/24 Rx mL) subcutaneous pen (Lantus Solostar U-100 Insulin) lactulose 10 gram/15 mL (15 mL) See Rx Instructions .Route 04/04/24 Rx oral solution .COMPLEX #1,440 mL pantoprazole 40 mg tablet,delayed 40 mg PO QAM #90 tabs 04/18/24 Rx release Patient History Medical History Infective endocarditis Streptococcal bacteremia ROSALES (obstructive sleep apnea) Rectal bleeding Hypomagnesemia Nausea vomiting and diarrhea Dizziness Acute hyperkalemia Encephalopathy acute Nausea & vomiting Rhinovirus Acute on chronic diastolic heart failure Volume overload Lactate blood increase Vomiting and diarrhea Wheezing Weakness DVT (deep venous thrombosis) Elevated troponin Thrombocytopenia Chronic deep vein thrombosis (DVT) Fever Pulmonary embolism 2018 > no known cause > Filter to right groin Diverticular hemorrhage resolved GI bleed none at present Esophageal varices determined by endoscopy Monoclonal gammopathy Osteoarthritis GERD (gastroesophageal reflux disease) Migraine Vertigo Surgical History H/O exploratory laparotomy (04/27/24) p Exploratory Laparotomy(Not Applicable) - Arie Melchor MD, FACS s Bowel Resection, creation of illiostomy(Not Applicable) - Arie Melchor MD, FACS Status post lumbar surgery History of laparoscopic cholecystectomy History of section x3 History of bilateral breast reduction surgery History of dilatation and curettage History of carpal tunnel release of both wrists History of total left knee replacement (TKR) History of total right knee replacement (TKR) History of lumbar spinal fusion hardware in place History of colonoscopy History of esophagogastroduodenoscopy (EGD) History of tooth extraction all teeth History of tonsillectomy History of bilateral cataract extraction Family History Mother Family history of diabetes mellitus Brother Family history of diabetes mellitus 3 brothers Colorectal cancer Myocardial infarction x 2 Father Myocardial infarction Denies family history of Ovarian cancer Prostate cancer Breast cancer Social History Smoking Status: Former smoker Tobacco Type: Cigarettes Age Started Using Tobacco: 15; Age Quit Using Tobacco: 21; Cigarettes Per Day: stopped 55 years ago; Second Hand Exposure: No; Do You Dip or Chew Tobacco: No; Hx Alcohol Use: No Hx Substance Use: No Preferred Language: Lithuanian Communication Ability: Impaired Visual Impairment: Limited Hearing Ability: Normal Director Of Real Estate Required: No Beliefs That Will Affect Care: None marital status: / Current Living Situation: Family Current Living Situation Comment: lives with niece Rosalind current occupational status: retired How many Children do You have: 3 Feels Safe at Home: Yes Childhood Exposure to Second-Hand Smoke: Yes Diet: regular caffeine: Yes (tea) during the past year weight has: remained stable Dental Care, Regularly: No Physical Activity Frequency: Does not Exercise Seatbelt Use: always Sunscreen Use: No Do you think of yourself as: straight/heterosexual Gender Identity: Female Assistive Devices: CPAP and Walker Review of Systems Review of Systems: Unobtainable due to cognitive status Physical Exam Physical Exam: agitated, restless RR 34, inc effort and use of accessory muscles, occ grunting bitemp wasting flushed facies diaphoretic furrowing brown to noxious, unable to answer questions [id number] hypotensive abd +pannus BLE edema, +vasc insuff changes BLE unresponsive Results & Data Vital Signs (Past 12 Hours) Vital Signs Temp Pulse Pulse Pulse Resp BP BP 05/28/24 11:17 37 C 87 34 H 67/34 L 05/28/24 10:59 37.3 C 89 18 81/47 L 05/28/24 10:18 05/28/24 09:50 36.8 C 99 H 16 71/38 L 05/28/24 09:05 36.7 C 84 16 81/47 L 05/28/24 07:36 84/40 L 05/28/24 07:29 82 70/40 L 05/28/24 06:59 36.3 C L 83 18 05/28/24 06:18 05/28/24 05:37 36.2 C L 05/28/24 04:29 05/28/24 03:51 35.0 C L 05/28/24 03:25 75 20 05/28/24 02:47 76 05/28/24 02:42 78 18 05/28/24 02:23 74 20 05/28/24 02:21 74 20 05/28/24 02:03 34.3 C L 75 18 05/28/24 02:00 35.0 C L 05/28/24 00:53 72 18 88/55 L 05/28/24 00:25 71 78/44 L 05/28/24 00:15 81/36 L BP Pulse Ox O2 Del Method 05/28/24 11:17 100 Room Air 05/28/24 10:59 81/47 L 99 Room Air 05/28/24 10:18 Room Air 05/28/24 09:50 100 Room Air 05/28/24 09:05 99 Room Air 05/28/24 07:36 05/28/24 07:29 05/28/24 06:59 96/53 L 100 Room Air 05/28/24 06:18 90/56 L 05/28/24 05:37 76/42 L 05/28/24 04:29 98/61 L 05/28/24 03:51 05/28/24 03:25 94/64 L 100 Room Air 05/28/24 02:47 05/28/24 02:42 93/62 L 100 Room Air 05/28/24 02:23 88/55 L 100 Room Air 05/28/24 02:21 73/47 L 100 Room Air 05/28/24 02:03 64/39 L 96 Room Air 05/28/24 02:00 05/28/24 00:53 100 Room Air 05/28/24 00:25 100 Room Air 05/28/24 00:15 Laboratory Results 05/28/24 05/28/24 05/28/24 Range/Units 11:07 09:00 06:36 WBC 10.40 (4.8-10.8) K/ul RBC 2.77 L (4.20-5.40) M/uL Hgb 7.7 L (12.0-16.0) g/dl Hct 24.5 L (37.0-47.0) % MCV 88.4 (80.0-100.0) fL MCH 27.8 (25.0-34.0) pg MCHC 31.4 L (32.0-36.0) g/dL RDW Std Deviation 69.5 H (36.4-46.3) fL RDW Coeff of Leah 21.8 H (11.5-14.5) % Plt Count 112 L (130-400) K/uL MPV 10.6 (9.4-12.4) fL Immature Gran % (Auto) 1.3 % Neut % (Auto) 90.0 % Lymph % (Auto) 5.4 % Hart % (Auto) 2.9 % Eos % (Auto) 0.2 % Baso % (Auto) 0.2 % Neut # (Auto) 9.36 H (1.40-6.50) K/uL Lymph # (Auto) 0.56 L (1.20-3.40) K/uL Hart # (Auto) 0.30 (0.11-0.59) K/uL Eos # (Auto) 0.02 (0.00-0.50) K/uL Baso # (Auto) 0.02 (0.00-0.20) K/uL Immature Gran # (Auto) 0.14 (0.01-0.20) K/uL Absolute Nucleated RBC 0.04 (0.00-0.12) K/uL Nucleated RBC % (auto) 0.4 % Neutrophils % (Manual) % Lymphocytes % (Manual) % Monocytes % (Manual) % Eosinophils % (Manual) % Basophils % (Manual) % Neutrophils # (Manual) (1.40-6.50) K/uL Total Absolute Neuts (1.4-6.5) K/uL Lymphocytes # (Manual) (1.2-3.4) K/uL Total Abs Lymphocytes (1.2-3.4) K/uL Monocytes # (Manual) (0.11-0.59) K/uL Eosinophils # (Manual) (0-0.50) K/uL Basophils # (Manual) (0-0.2) K/uL Polychromasia 1+ Anisocytosis Present Target Cells Ovalocytes Echinocytes 1+ Sodium 139 (136-145) mmol/L Potassium 4.3 (3.5-5.1) mmol/L Chloride 120 H (98-107) mmol/L Carbon Dioxide 10 L (21-32) mmol/L Anion Gap 9 (3-11) BUN 74 H (6-23) mg/dl Creatinine 3.04 H (0.6-1.2) mg/dl Est Cr Clr Drug Dosing 17.8 ml/min eGFR 15.00 BUN/Creatinine Ratio 24.3 H (10-20) Glucose 160 H (70-99(Fasting)) mg/dl POC Glucose 174 H 158 H (70-99) mg/dl Osmolality (280-300) mOsm/kg Lactate (0.4-2.0) mmol/L Calcium 7.8 L (8.6-10.3) mg/dl Phosphorus (2.5-4.9) mg/dl Magnesium (1.7-2.4) mg/dl Total Bilirubin (0.2-1.0) mg/dl AST (13-39) U/L ALT (7-52) U/L Alkaline Phosphatase (34-104) U/L Ammonia (18-72) umol/L Total Protein (6.0-8.3) gm/dl Albumin (3.4-5.0) gm/dl Globulin (2.5-4.0) gm/dl Albumin/Globulin Ratio (0.9-2) Procalcitonin (0-0.5) ng/ml TSH (0.300-4.500) uIu/ml Free T4 (0.61-1.60) ng/dl Random Cortisol mcg/dl Ur Random Creatinine mg/dl Ur Random Sodium mmol/L 05/28/24 05/27/24 05/27/24 Range/Units 01:27 20:47 16:28 WBC 11.74 H (4.8-10.8) K/ul RBC 2.97 L (4.20-5.40) M/uL Hgb 8.1 L (12.0-16.0) g/dl Hct 25.4 L (37.0-47.0) % MCV 85.5 (80.0-100.0) fL MCH 27.3 (25.0-34.0) pg MCHC 31.9 L (32.0-36.0) g/dL RDW Std Deviation 67.1 H (36.4-46.3) fL RDW Coeff of Leah 21.6 H (11.5-14.5) % Plt Count 131 (130-400) K/uL MPV 11.1 (9.4-12.4) fL Immature Gran % (Auto) 1.1 % Neut % (Auto) 82.4 % Lymph % (Auto) 9.1 % Hart % (Auto) 6.1 % Eos % (Auto) 1.0 % Baso % (Auto) 0.3 % Neut # (Auto) 9.67 H (1.40-6.50) K/uL Lymph # (Auto) 1.07 L (1.20-3.40) K/uL Hart # (Auto) 0.72 H (0.11-0.59) K/uL Eos # (Auto) 0.12 (0.00-0.50) K/uL Baso # (Auto) 0.03 (0.00-0.20) K/uL Immature Gran # (Auto) 0.13 (0.01-0.20) K/uL Absolute Nucleated RBC 0.05 (0.00-0.12) K/uL Nucleated RBC % (auto) 0.4 % Neutrophils % (Manual) % Lymphocytes % (Manual) % Monocytes % (Manual) % Eosinophils % (Manual) % Basophils % (Manual) % Neutrophils # (Manual) (1.40-6.50) K/uL Total Absolute Neuts (1.4-6.5) K/uL Lymphocytes # (Manual) (1.2-3.4) K/uL Total Abs Lymphocytes (1.2-3.4) K/uL Monocytes # (Manual) (0.11-0.59) K/uL Eosinophils # (Manual) (0-0.50) K/uL Basophils # (Manual) (0-0.2) K/uL Polychromasia 2+ Anisocytosis Present Target Cells Ovalocytes Echinocytes 1+ Sodium 138 (136-145) mmol/L Potassium 4.1 (3.5-5.1) mmol/L Chloride 120 H (98-107) mmol/L Carbon Dioxide 11 L (21-32) mmol/L Anion Gap 7 (3-11) BUN 72 H (6-23) mg/dl Creatinine 3.18 H (0.6-1.2) mg/dl Est Cr Clr Drug Dosing 16.5 ml/min eGFR 14.21 BUN/Creatinine Ratio 22.6 H (10-20) Glucose 153 H (70-99(Fasting)) mg/dl POC Glucose 167 H 173 H (70-99) mg/dl Osmolality (280-300) mOsm/kg Lactate 1.5 (0.4-2.0) mmol/L Calcium 8.0 L (8.6-10.3) mg/dl Phosphorus 4.6 (2.5-4.9) mg/dl Magnesium 1.9 (1.7-2.4) mg/dl Total Bilirubin 0.6 (0.2-1.0) mg/dl AST 21 (13-39) U/L ALT < 3 L (7-52) U/L Alkaline Phosphatase 180 H (34-104) U/L Ammonia (18-72) umol/L Total Protein 4.8 L (6.0-8.3) gm/dl Albumin 2.3 L (3.4-5.0) gm/dl Globulin 2.5 (2.5-4.0) gm/dl Albumin/Globulin Ratio 0.9 (0.9-2) Procalcitonin 0.91 H (0-0.5) ng/ml TSH 7.299 H (0.300-4.500) uIu/ml Free T4 0.83 (0.61-1.60) ng/dl Random Cortisol 14.20 mcg/dl Ur Random Creatinine mg/dl Ur Random Sodium mmol/L 05/27/24 05/27/24 05/27/24 Range/Units 11:38 11:07 07:50 WBC (4.8-10.8) K/ul RBC (4.20-5.40) M/uL Hgb (12.0-16.0) g/dl Hct (37.0-47.0) % MCV (80.0-100.0) fL MCH (25.0-34.0) pg MCHC (32.0-36.0) g/dL RDW Std Deviation (36.4-46.3) fL RDW Coeff of Leah (11.5-14.5) % Plt Count (130-400) K/uL MPV (9.4-12.4) fL Immature Gran % (Auto) % Neut % (Auto) % Lymph % (Auto) % Hart % (Auto) % Eos % (Auto) % Baso % (Auto) % Neut # (Auto) (1.40-6.50) K/uL Lymph # (Auto) (1.20-3.40) K/uL Hart # (Auto) (0.11-0.59) K/uL Eos # (Auto) (0.00-0.50) K/uL Baso # (Auto) (0.00-0.20) K/uL Immature Gran # (Auto) (0.01-0.20) K/uL Absolute Nucleated RBC (0.00-0.12) K/uL Nucleated RBC % (auto) % Neutrophils % (Manual) % Lymphocytes % (Manual) % Monocytes % (Manual) % Eosinophils % (Manual) % Basophils % (Manual) % Neutrophils # (Manual) (1.40-6.50) K/uL Total Absolute Neuts (1.4-6.5) K/uL Lymphocytes # (Manual) (1.2-3.4) K/uL Total Abs Lymphocytes (1.2-3.4) K/uL Monocytes # (Manual) (0.11-0.59) K/uL Eosinophils # (Manual) (0-0.50) K/uL Basophils # (Manual) (0-0.2) K/uL Polychromasia Anisocytosis Target Cells Ovalocytes Echinocytes Sodium (136-145) mmol/L Potassium (3.5-5.1) mmol/L Chloride (98-107) mmol/L Carbon Dioxide (21-32) mmol/L Anion Gap (3-11) BUN (6-23) mg/dl Creatinine (0.6-1.2) mg/dl Est Cr Clr Drug Dosing ml/min eGFR BUN/Creatinine Ratio (10-20) Glucose (70-99(Fasting)) mg/dl POC Glucose 144 H 155 H (70-99) mg/dl Osmolality (280-300) mOsm/kg Lactate (0.4-2.0) mmol/L Calcium (8.6-10.3) mg/dl Phosphorus (2.5-4.9) mg/dl Magnesium (1.7-2.4) mg/dl Total Bilirubin (0.2-1.0) mg/dl AST (13-39) U/L ALT (7-52) U/L Alkaline Phosphatase (34-104) U/L Ammonia 58.0 (18-72) umol/L Total Protein (6.0-8.3) gm/dl Albumin (3.4-5.0) gm/dl Globulin (2.5-4.0) gm/dl Albumin/Globulin Ratio (0.9-2) Procalcitonin (0-0.5) ng/ml TSH (0.300-4.500) uIu/ml Free T4 (0.61-1.60) ng/dl Random Cortisol mcg/dl Ur Random Creatinine mg/dl Ur Random Sodium mmol/L 05/27/24 05/26/24 05/26/24 Range/Units 05:49 20:40 17:00 WBC 8.41 (4.8-10.8) K/ul RBC 3.13 L (4.20-5.40) M/uL Hgb 8.8 L (12.0-16.0) g/dl Hct 27.3 L (37.0-47.0) % MCV 87.2 (80.0-100.0) fL MCH 28.1 (25.0-34.0) pg MCHC 32.2 (32.0-36.0) g/dL RDW Std Deviation 67.3 H (36.4-46.3) fL RDW Coeff of Leah 21.3 H (11.5-14.5) % Plt Count 135 (130-400) K/uL MPV 10.4 (9.4-12.4) fL Immature Gran % (Auto) 1.4 % Neut % (Auto) 76.1 % Lymph % (Auto) 9.5 % Hart % (Auto) 9.2 % Eos % (Auto) 3.4 % Baso % (Auto) 0.4 % Neut # (Auto) 6.40 (1.40-6.50) K/uL Lymph # (Auto) 0.80 L (1.20-3.40) K/uL Hart # (Auto) 0.77 H (0.11-0.59) K/uL Eos # (Auto) 0.29 (0.00-0.50) K/uL Baso # (Auto) 0.03 (0.00-0.20) K/uL Immature Gran # (Auto) 0.12 (0.01-0.20) K/uL Absolute Nucleated RBC 0.04 (0.00-0.12) K/uL Nucleated RBC % (auto) 0.5 % Neutrophils % (Manual) % Lymphocytes % (Manual) % Monocytes % (Manual) % Eosinophils % (Manual) % Basophils % (Manual) % Neutrophils # (Manual) (1.40-6.50) K/uL Total Absolute Neuts (1.4-6.5) K/uL Lymphocytes # (Manual) (1.2-3.4) K/uL Total Abs Lymphocytes (1.2-3.4) K/uL Monocytes # (Manual) (0.11-0.59) K/uL Eosinophils # (Manual) (0-0.50) K/uL Basophils # (Manual) (0-0.2) K/uL Polychromasia 2+ Anisocytosis Present Target Cells Ovalocytes Echinocytes 1+ Sodium 137 (136-145) mmol/L Potassium 4.1 (3.5-5.1) mmol/L Chloride 118 H (98-107) mmol/L Carbon Dioxide 12 L (21-32) mmol/L Anion Gap 7 (3-11) BUN 73 H (6-23) mg/dl Creatinine 3.02 H (0.6-1.2) mg/dl Est Cr Clr Drug Dosing 17.4 ml/min eGFR 15.12 BUN/Creatinine Ratio 24.2 H (10-20) Glucose 155 H (70-99(Fasting)) mg/dl POC Glucose 165 H 135 H (70-99) mg/dl Osmolality (280-300) mOsm/kg Lactate (0.4-2.0) mmol/L Calcium 8.2 L (8.6-10.3) mg/dl Phosphorus (2.5-4.9) mg/dl Magnesium 1.4 L (1.7-2.4) mg/dl Total Bilirubin (0.2-1.0) mg/dl AST (13-39) U/L ALT (7-52) U/L Alkaline Phosphatase (34-104) U/L Ammonia (18-72) umol/L Total Protein (6.0-8.3) gm/dl Albumin (3.4-5.0) gm/dl Globulin (2.5-4.0) gm/dl Albumin/Globulin Ratio (0.9-2) Procalcitonin (0-0.5) ng/ml TSH (0.300-4.500) uIu/ml Free T4 (0.61-1.60) ng/dl Random Cortisol mcg/dl Ur Random Creatinine mg/dl Ur Random Sodium mmol/L 05/26/24 05/26/24 05/26/24 Range/Units 11:04 06:58 05:47 WBC 8.08 (4.8-10.8) K/ul RBC 3.31 L (4.20-5.40) M/uL Hgb 9.3 L (12.0-16.0) g/dl Hct 28.5 L (37.0-47.0) % MCV 86.1 (80.0-100.0) fL MCH 28.1 (25.0-34.0) pg MCHC 32.6 (32.0-36.0) g/dL RDW Std Deviation 62.8 H (36.4-46.3) fL RDW Coeff of Leah 19.9 H (11.5-14.5) % Plt Count 146 (130-400) K/uL MPV 11.2 (9.4-12.4) fL Immature Gran % (Auto) 2.7 % Neut % (Auto) 71.0 % Lymph % (Auto) 12.1 % Hart % (Auto) 9.3 % Eos % (Auto) 4.5 % Baso % (Auto) 0.4 % Neut # (Auto) 5.74 (1.40-6.50) K/uL Lymph # (Auto) 0.98 L (1.20-3.40) K/uL Hart # (Auto) 0.75 H (0.11-0.59) K/uL Eos # (Auto) 0.36 (0.00-0.50) K/uL Baso # (Auto) 0.03 (0.00-0.20) K/uL Immature Gran # (Auto) 0.22 H (0.01-0.20) K/uL Absolute Nucleated RBC 0.03 (0.00-0.12) K/uL Nucleated RBC % (auto) 0.4 % Neutrophils % (Manual) % Lymphocytes % (Manual) % Monocytes % (Manual) % Eosinophils % (Manual) % Basophils % (Manual) % Neutrophils # (Manual) (1.40-6.50) K/uL Total Absolute Neuts (1.4-6.5) K/uL Lymphocytes # (Manual) (1.2-3.4) K/uL Total Abs Lymphocytes (1.2-3.4) K/uL Monocytes # (Manual) (0.11-0.59) K/uL Eosinophils # (Manual) (0-0.50) K/uL Basophils # (Manual) (0-0.2) K/uL Polychromasia Anisocytosis Target Cells Ovalocytes Echinocytes Sodium 135 L (136-145) mmol/L Potassium 4.2 (3.5-5.1) mmol/L Chloride 115 H (98-107) mmol/L Carbon Dioxide 12 L (21-32) mmol/L Anion Gap 8 (3-11) BUN 74 H (6-23) mg/dl Creatinine 2.97 H (0.6-1.2) mg/dl Est Cr Clr Drug Dosing 17.7 ml/min eGFR 15.42 BUN/Creatinine Ratio 24.9 H (10-20) Glucose 213 H (70-99(Fasting)) mg/dl POC Glucose 166 H 167 H (70-99) mg/dl Osmolality (280-300) mOsm/kg Lactate (0.4-2.0) mmol/L Calcium 8.2 L (8.6-10.3) mg/dl Phosphorus (2.5-4.9) mg/dl Magnesium (1.7-2.4) mg/dl Total Bilirubin (0.2-1.0) mg/dl AST (13-39) U/L ALT (7-52) U/L Alkaline Phosphatase (34-104) U/L Ammonia (18-72) umol/L Total Protein (6.0-8.3) gm/dl Albumin (3.4-5.0) gm/dl Globulin (2.5-4.0) gm/dl Albumin/Globulin Ratio (0.9-2) Procalcitonin (0-0.5) ng/ml TSH (0.300-4.500) uIu/ml Free T4 (0.61-1.60) ng/dl Random Cortisol mcg/dl Ur Random Creatinine mg/dl Ur Random Sodium mmol/L 05/25/24 05/25/24 05/25/24 Range/Units 20:00 16:18 11:36 WBC (4.8-10.8) K/ul RBC (4.20-5.40) M/uL Hgb (12.0-16.0) g/dl Hct (37.0-47.0) % MCV (80.0-100.0) fL MCH (25.0-34.0) pg MCHC (32.0-36.0) g/dL RDW Std Deviation (36.4-46.3) fL RDW Coeff of Leah (11.5-14.5) % Plt Count (130-400) K/uL MPV (9.4-12.4) fL Immature Gran % (Auto) % Neut % (Auto) % Lymph % (Auto) % Hart % (Auto) % Eos % (Auto) % Baso % (Auto) % Neut # (Auto) (1.40-6.50) K/uL Lymph # (Auto) (1.20-3.40) K/uL Hart # (Auto) (0.11-0.59) K/uL Eos # (Auto) (0.00-0.50) K/uL Baso # (Auto) (0.00-0.20) K/uL Immature Gran # (Auto) (0.01-0.20) K/uL Absolute Nucleated RBC (0.00-0.12) K/uL Nucleated RBC % (auto) % Neutrophils % (Manual) % Lymphocytes % (Manual) % Monocytes % (Manual) % Eosinophils % (Manual) % Basophils % (Manual) % Neutrophils # (Manual) (1.40-6.50) K/uL Total Absolute Neuts (1.4-6.5) K/uL Lymphocytes # (Manual) (1.2-3.4) K/uL Total Abs Lymphocytes (1.2-3.4) K/uL Monocytes # (Manual) (0.11-0.59) K/uL Eosinophils # (Manual) (0-0.50) K/uL Basophils # (Manual) (0-0.2) K/uL Polychromasia Anisocytosis Target Cells Ovalocytes Echinocytes Sodium (136-145) mmol/L Potassium (3.5-5.1) mmol/L Chloride (98-107) mmol/L Carbon Dioxide (21-32) mmol/L Anion Gap (3-11) BUN (6-23) mg/dl Creatinine (0.6-1.2) mg/dl Est Cr Clr Drug Dosing ml/min eGFR BUN/Creatinine Ratio (10-20) Glucose (70-99(Fasting)) mg/dl POC Glucose 164 H 159 H 179 H (70-99) mg/dl Osmolality (280-300) mOsm/kg Lactate (0.4-2.0) mmol/L Calcium (8.6-10.3) mg/dl Phosphorus (2.5-4.9) mg/dl Magnesium (1.7-2.4) mg/dl Total Bilirubin (0.2-1.0) mg/dl AST (13-39) U/L ALT (7-52) U/L Alkaline Phosphatase (34-104) U/L Ammonia (18-72) umol/L Total Protein (6.0-8.3) gm/dl Albumin (3.4-5.0) gm/dl Globulin (2.5-4.0) gm/dl Albumin/Globulin Ratio (0.9-2) Procalcitonin (0-0.5) ng/ml TSH (0.300-4.500) uIu/ml Free T4 (0.61-1.60) ng/dl Random Cortisol mcg/dl Ur Random Creatinine mg/dl Ur Random Sodium mmol/L 05/25/24 05/25/24 05/24/24 Range/Units 07:31 06:07 Unknown WBC 7.25 (4.8-10.8) K/ul RBC 3.31 L (4.20-5.40) M/uL Hgb 9.2 L (12.0-16.0) g/dl Hct 28.8 L (37.0-47.0) % MCV 87.0 (80.0-100.0) fL MCH 27.8 (25.0-34.0) pg MCHC 31.9 L (32.0-36.0) g/dL RDW Std Deviation 67.4 H (36.4-46.3) fL RDW Coeff of Leah 21.1 H (11.5-14.5) % Plt Count 129 L (130-400) K/uL MPV 10.6 (9.4-12.4) fL Immature Gran % (Auto) 1.8 % Neut % (Auto) 70.7 % Lymph % (Auto) 14.5 % Hart % (Auto) 8.6 % Eos % (Auto) 4.0 % Baso % (Auto) 0.4 % Neut # (Auto) 5.13 (1.40-6.50) K/uL Lymph # (Auto) 1.05 L (1.20-3.40) K/uL Hart # (Auto) 0.62 H (0.11-0.59) K/uL Eos # (Auto) 0.29 (0.00-0.50) K/uL Baso # (Auto) 0.03 (0.00-0.20) K/uL Immature Gran # (Auto) 0.13 (0.01-0.20) K/uL Absolute Nucleated RBC (0.00-0.12) K/uL Nucleated RBC % (auto) % Neutrophils % (Manual) % Lymphocytes % (Manual) % Monocytes % (Manual) % Eosinophils % (Manual) % Basophils % (Manual) % Neutrophils # (Manual) (1.40-6.50) K/uL Total Absolute Neuts (1.4-6.5) K/uL Lymphocytes # (Manual) (1.2-3.4) K/uL Total Abs Lymphocytes (1.2-3.4) K/uL Monocytes # (Manual) (0.11-0.59) K/uL Eosinophils # (Manual) (0-0.50) K/uL Basophils # (Manual) (0-0.2) K/uL Polychromasia 1+ Anisocytosis Present Target Cells Ovalocytes Echinocytes Sodium 133 L (136-145) mmol/L Potassium 4.2 (3.5-5.1) mmol/L Chloride 113 H (98-107) mmol/L Carbon Dioxide 12 L (21-32) mmol/L Anion Gap 8 (3-11) BUN 77 H (6-23) mg/dl Creatinine 3.09 H (0.6-1.2) mg/dl Est Cr Clr Drug Dosing 17.0 ml/min eGFR 14.71 BUN/Creatinine Ratio 24.9 H (10-20) Glucose 178 H (70-99(Fasting)) mg/dl POC Glucose 186 H (70-99) mg/dl Osmolality (280-300) mOsm/kg Lactate (0.4-2.0) mmol/L Calcium 8.2 L (8.6-10.3) mg/dl Phosphorus (2.5-4.9) mg/dl Magnesium (1.7-2.4) mg/dl Total Bilirubin (0.2-1.0) mg/dl AST (13-39) U/L ALT (7-52) U/L Alkaline Phosphatase (34-104) U/L Ammonia (18-72) umol/L Total Protein (6.0-8.3) gm/dl Albumin (3.4-5.0) gm/dl Globulin (2.5-4.0) gm/dl Albumin/Globulin Ratio (0.9-2) Procalcitonin (0-0.5) ng/ml TSH (0.300-4.500) uIu/ml Free T4 (0.61-1.60) ng/dl Random Cortisol mcg/dl Ur Random Creatinine 81.4 mg/dl Ur Random Sodium < 10 mmol/L 05/24/24 05/24/24 05/24/24 Range/Units 20:04 16:18 11:25 WBC (4.8-10.8) K/ul RBC (4.20-5.40) M/uL Hgb (12.0-16.0) g/dl Hct (37.0-47.0) % MCV (80.0-100.0) fL MCH (25.0-34.0) pg MCHC (32.0-36.0) g/dL RDW Std Deviation (36.4-46.3) fL RDW Coeff of Leah (11.5-14.5) % Plt Count (130-400) K/uL MPV (9.4-12.4) fL Immature Gran % (Auto) % Neut % (Auto) % Lymph % (Auto) % Hart % (Auto) % Eos % (Auto) % Baso % (Auto) % Neut # (Auto) (1.40-6.50) K/uL Lymph # (Auto) (1.20-3.40) K/uL Hart # (Auto) (0.11-0.59) K/uL Eos # (Auto) (0.00-0.50) K/uL Baso # (Auto) (0.00-0.20) K/uL Immature Gran # (Auto) (0.01-0.20) K/uL Absolute Nucleated RBC (0.00-0.12) K/uL Nucleated RBC % (auto) % Neutrophils % (Manual) % Lymphocytes % (Manual) % Monocytes % (Manual) % Eosinophils % (Manual) % Basophils % (Manual) % Neutrophils # (Manual) (1.40-6.50) K/uL Total Absolute Neuts (1.4-6.5) K/uL Lymphocytes # (Manual) (1.2-3.4) K/uL Total Abs Lymphocytes (1.2-3.4) K/uL Monocytes # (Manual) (0.11-0.59) K/uL Eosinophils # (Manual) (0-0.50) K/uL Basophils # (Manual) (0-0.2) K/uL Polychromasia Anisocytosis Target Cells Ovalocytes Echinocytes Sodium (136-145) mmol/L Potassium (3.5-5.1) mmol/L Chloride (98-107) mmol/L Carbon Dioxide (21-32) mmol/L Anion Gap (3-11) BUN (6-23) mg/dl Creatinine (0.6-1.2) mg/dl Est Cr Clr Drug Dosing ml/min eGFR BUN/Creatinine Ratio (10-20) Glucose (70-99(Fasting)) mg/dl POC Glucose 171 H 159 H 174 H (70-99) mg/dl Osmolality (280-300) mOsm/kg Lactate (0.4-2.0) mmol/L Calcium (8.6-10.3) mg/dl Phosphorus (2.5-4.9) mg/dl Magnesium (1.7-2.4) mg/dl Total Bilirubin (0.2-1.0) mg/dl AST (13-39) U/L ALT (7-52) U/L Alkaline Phosphatase (34-104) U/L Ammonia (18-72) umol/L Total Protein (6.0-8.3) gm/dl Albumin (3.4-5.0) gm/dl Globulin (2.5-4.0) gm/dl Albumin/Globulin Ratio (0.9-2) Procalcitonin (0-0.5) ng/ml TSH (0.300-4.500) uIu/ml Free T4 (0.61-1.60) ng/dl Random Cortisol mcg/dl Ur Random Creatinine mg/dl Ur Random Sodium mmol/L 05/24/24 05/24/24 05/24/24 Range/Units 09:49 07:17 06:09 WBC 5.35 (4.8-10.8) K/ul RBC 3.09 L (4.20-5.40) M/uL Hgb 8.8 L (12.0-16.0) g/dl Hct 26.8 L (37.0-47.0) % MCV 86.7 (80.0-100.0) fL MCH 28.5 (25.0-34.0) pg MCHC 32.8 (32.0-36.0) g/dL RDW Std Deviation 64.9 H (36.4-46.3) fL RDW Coeff of Leah 20.8 H (11.5-14.5) % Plt Count 99 L (130-400) K/uL MPV 11.1 (9.4-12.4) fL Immature Gran % (Auto) % Neut % (Auto) % Lymph % (Auto) % Hart % (Auto) % Eos % (Auto) % Baso % (Auto) % Neut # (Auto) (1.40-6.50) K/uL Lymph # (Auto) (1.20-3.40) K/uL Hart # (Auto) (0.11-0.59) K/uL Eos # (Auto) (0.00-0.50) K/uL Baso # (Auto) (0.00-0.20) K/uL Immature Gran # (Auto) (0.01-0.20) K/uL Absolute Nucleated RBC (0.00-0.12) K/uL Nucleated RBC % (auto) % Neutrophils % (Manual) 79 % Lymphocytes % (Manual) 11 % Monocytes % (Manual) 6 % Eosinophils % (Manual) 3 % Basophils % (Manual) 1 % Neutrophils # (Manual) 4.23 (1.40-6.50) K/uL Total Absolute Neuts 4.23 (1.4-6.5) K/uL Lymphocytes # (Manual) 0.59 L (1.2-3.4) K/uL Total Abs Lymphocytes 0.59 L (1.2-3.4) K/uL Monocytes # (Manual) 0.32 (0.11-0.59) K/uL Eosinophils # (Manual) 0.16 (0-0.50) K/uL Basophils # (Manual) 0.05 (0-0.2) K/uL Polychromasia 1+ Anisocytosis Present Target Cells Ovalocytes Echinocytes 1+ Sodium 131 L (136-145) mmol/L Potassium 4.0 (3.5-5.1) mmol/L Chloride 112 H (98-107) mmol/L Carbon Dioxide 13 L (21-32) mmol/L Anion Gap 6 (3-11) BUN 77 H (6-23) mg/dl Creatinine 3.20 H (0.6-1.2) mg/dl Est Cr Clr Drug Dosing 16.3 ml/min eGFR 14.10 BUN/Creatinine Ratio 24.1 H (10-20) Glucose 200 H (70-99(Fasting)) mg/dl POC Glucose 194 H (70-99) mg/dl Osmolality 304 H (280-300) mOsm/kg Lactate (0.4-2.0) mmol/L Calcium 8.1 L (8.6-10.3) mg/dl Phosphorus (2.5-4.9) mg/dl Magnesium (1.7-2.4) mg/dl Total Bilirubin (0.2-1.0) mg/dl AST (13-39) U/L ALT (7-52) U/L Alkaline Phosphatase (34-104) U/L Ammonia (18-72) umol/L Total Protein (6.0-8.3) gm/dl Albumin (3.4-5.0) gm/dl Globulin (2.5-4.0) gm/dl Albumin/Globulin Ratio (0.9-2) Procalcitonin (0-0.5) ng/ml TSH (0.300-4.500) uIu/ml Free T4 (0.61-1.60) ng/dl Random Cortisol mcg/dl Ur Random Creatinine mg/dl Ur Random Sodium mmol/L 05/23/24 05/23/24 05/23/24 Range/Units 20:20 16:08 12:34 WBC (4.8-10.8) K/ul RBC (4.20-5.40) M/uL Hgb (12.0-16.0) g/dl Hct (37.0-47.0) % MCV (80.0-100.0) fL MCH (25.0-34.0) pg MCHC (32.0-36.0) g/dL RDW Std Deviation (36.4-46.3) fL RDW Coeff of Leah (11.5-14.5) % Plt Count (130-400) K/uL MPV (9.4-12.4) fL Immature Gran % (Auto) % Neut % (Auto) % Lymph % (Auto) % Hart % (Auto) % Eos % (Auto) % Baso % (Auto) % Neut # (Auto) (1.40-6.50) K/uL Lymph # (Auto) (1.20-3.40) K/uL Hart # (Auto) (0.11-0.59) K/uL Eos # (Auto) (0.00-0.50) K/uL Baso # (Auto) (0.00-0.20) K/uL Immature Gran # (Auto) (0.01-0.20) K/uL Absolute Nucleated RBC (0.00-0.12) K/uL Nucleated RBC % (auto) % Neutrophils % (Manual) % Lymphocytes % (Manual) % Monocytes % (Manual) % Eosinophils % (Manual) % Basophils % (Manual) % Neutrophils # (Manual) (1.40-6.50) K/uL Total Absolute Neuts (1.4-6.5) K/uL Lymphocytes # (Manual) (1.2-3.4) K/uL Total Abs Lymphocytes (1.2-3.4) K/uL Monocytes # (Manual) (0.11-0.59) K/uL Eosinophils # (Manual) (0-0.50) K/uL Basophils # (Manual) (0-0.2) K/uL Polychromasia Anisocytosis Target Cells Ovalocytes Echinocytes Sodium (136-145) mmol/L Potassium (3.5-5.1) mmol/L Chloride (98-107) mmol/L Carbon Dioxide (21-32) mmol/L Anion Gap (3-11) BUN (6-23) mg/dl Creatinine (0.6-1.2) mg/dl Est Cr Clr Drug Dosing ml/min eGFR BUN/Creatinine Ratio (10-20) Glucose (70-99(Fasting)) mg/dl POC Glucose 185 H 171 H (70-99) mg/dl Osmolality (280-300) mOsm/kg Lactate (0.4-2.0) mmol/L Calcium (8.6-10.3) mg/dl Phosphorus (2.5-4.9) mg/dl Magnesium (1.7-2.4) mg/dl Total Bilirubin (0.2-1.0) mg/dl AST (13-39) U/L ALT (7-52) U/L Alkaline Phosphatase (34-104) U/L Ammonia 71.0 (18-72) umol/L Total Protein (6.0-8.3) gm/dl Albumin (3.4-5.0) gm/dl Globulin (2.5-4.0) gm/dl Albumin/Globulin Ratio (0.9-2) Procalcitonin (0-0.5) ng/ml TSH (0.300-4.500) uIu/ml Free T4 (0.61-1.60) ng/dl Random Cortisol mcg/dl Ur Random Creatinine mg/dl Ur Random Sodium mmol/L 05/23/24 05/23/24 05/23/24 Range/Units 11:20 07:34 07:25 WBC 5.29 (4.8-10.8) K/ul RBC 3.18 L (4.20-5.40) M/uL Hgb 8.9 L (12.0-16.0) g/dl Hct 27.2 L (37.0-47.0) % MCV 85.5 (80.0-100.0) fL MCH 28.0 (25.0-34.0) pg MCHC 32.7 (32.0-36.0) g/dL RDW Std Deviation 65.0 H (36.4-46.3) fL RDW Coeff of Leah 20.7 H (11.5-14.5) % Plt Count 95 L (130-400) K/uL MPV 11.1 (9.4-12.4) fL Immature Gran % (Auto) 1.7 % Neut % (Auto) 63.1 % Lymph % (Auto) 14.0 % Hart % (Auto) 13.4 % Eos % (Auto) 7.4 % Baso % (Auto) 0.4 % Neut # (Auto) 3.34 (1.40-6.50) K/uL Lymph # (Auto) 0.74 L (1.20-3.40) K/uL Hart # (Auto) 0.71 H (0.11-0.59) K/uL Eos # (Auto) 0.39 (0.00-0.50) K/uL Baso # (Auto) 0.02 (0.00-0.20) K/uL Immature Gran # (Auto) 0.09 (0.01-0.20) K/uL Absolute Nucleated RBC (0.00-0.12) K/uL Nucleated RBC % (auto) % Neutrophils % (Manual) % Lymphocytes % (Manual) % Monocytes % (Manual) % Eosinophils % (Manual) % Basophils % (Manual) % Neutrophils # (Manual) (1.40-6.50) K/uL Total Absolute Neuts (1.4-6.5) K/uL Lymphocytes # (Manual) (1.2-3.4) K/uL Total Abs Lymphocytes (1.2-3.4) K/uL Monocytes # (Manual) (0.11-0.59) K/uL Eosinophils # (Manual) (0-0.50) K/uL Basophils # (Manual) (0-0.2) K/uL Polychromasia 1+ Anisocytosis Present Target Cells 1+ Ovalocytes Echinocytes Sodium 130 L (136-145) mmol/L Potassium 4.0 (3.5-5.1) mmol/L Chloride 109 H (98-107) mmol/L Carbon Dioxide 15 L (21-32) mmol/L Anion Gap 6 (3-11) BUN 79 H (6-23) mg/dl Creatinine 3.05 H (0.6-1.2) mg/dl Est Cr Clr Drug Dosing 17.1 ml/min eGFR 14.94 BUN/Creatinine Ratio 25.9 H (10-20) Glucose 213 H (70-99(Fasting)) mg/dl POC Glucose 240 H 191 H (70-99) mg/dl Osmolality (280-300) mOsm/kg Lactate (0.4-2.0) mmol/L Calcium 8.2 L (8.6-10.3) mg/dl Phosphorus (2.5-4.9) mg/dl Magnesium (1.7-2.4) mg/dl Total Bilirubin (0.2-1.0) mg/dl AST (13-39) U/L ALT (7-52) U/L Alkaline Phosphatase (34-104) U/L Ammonia (18-72) umol/L Total Protein (6.0-8.3) gm/dl Albumin (3.4-5.0) gm/dl Globulin (2.5-4.0) gm/dl Albumin/Globulin Ratio (0.9-2) Procalcitonin (0-0.5) ng/ml TSH (0.300-4.500) uIu/ml Free T4 (0.61-1.60) ng/dl Random Cortisol mcg/dl Ur Random Creatinine mg/dl Ur Random Sodium mmol/L 05/22/24 05/22/24 05/22/24 Range/Units 20:41 16:24 12:35 WBC (4.8-10.8) K/ul RBC (4.20-5.40) M/uL Hgb (12.0-16.0) g/dl Hct (37.0-47.0) % MCV (80.0-100.0) fL MCH (25.0-34.0) pg MCHC (32.0-36.0) g/dL RDW Std Deviation (36.4-46.3) fL RDW Coeff of Leah (11.5-14.5) % Plt Count (130-400) K/uL MPV (9.4-12.4) fL Immature Gran % (Auto) % Neut % (Auto) % Lymph % (Auto) % Hart % (Auto) % Eos % (Auto) % Baso % (Auto) % Neut # (Auto) (1.40-6.50) K/uL Lymph # (Auto) (1.20-3.40) K/uL Hart # (Auto) (0.11-0.59) K/uL Eos # (Auto) (0.00-0.50) K/uL Baso # (Auto) (0.00-0.20) K/uL Immature Gran # (Auto) (0.01-0.20) K/uL Absolute Nucleated RBC (0.00-0.12) K/uL Nucleated RBC % (auto) % Neutrophils % (Manual) % Lymphocytes % (Manual) % Monocytes % (Manual) % Eosinophils % (Manual) % Basophils % (Manual) % Neutrophils # (Manual) (1.40-6.50) K/uL Total Absolute Neuts (1.4-6.5) K/uL Lymphocytes # (Manual) (1.2-3.4) K/uL Total Abs Lymphocytes (1.2-3.4) K/uL Monocytes # (Manual) (0.11-0.59) K/uL Eosinophils # (Manual) (0-0.50) K/uL Basophils # (Manual) (0-0.2) K/uL Polychromasia Anisocytosis Target Cells Ovalocytes Echinocytes Sodium (136-145) mmol/L Potassium (3.5-5.1) mmol/L Chloride (98-107) mmol/L Carbon Dioxide (21-32) mmol/L Anion Gap (3-11) BUN (6-23) mg/dl Creatinine (0.6-1.2) mg/dl Est Cr Clr Drug Dosing ml/min eGFR BUN/Creatinine Ratio (10-20) Glucose (70-99(Fasting)) mg/dl POC Glucose 157 H 284 H 182 H (70-99) mg/dl Osmolality (280-300) mOsm/kg Lactate (0.4-2.0) mmol/L Calcium (8.6-10.3) mg/dl Phosphorus (2.5-4.9) mg/dl Magnesium (1.7-2.4) mg/dl Total Bilirubin (0.2-1.0) mg/dl AST (13-39) U/L ALT (7-52) U/L Alkaline Phosphatase (34-104) U/L Ammonia (18-72) umol/L Total Protein (6.0-8.3) gm/dl Albumin (3.4-5.0) gm/dl Globulin (2.5-4.0) gm/dl Albumin/Globulin Ratio (0.9-2) Procalcitonin (0-0.5) ng/ml TSH (0.300-4.500) uIu/ml Free T4 (0.61-1.60) ng/dl Random Cortisol mcg/dl Ur Random Creatinine mg/dl Ur Random Sodium mmol/L 05/22/24 05/22/24 05/21/24 Range/Units 07:26 07:00 20:20 WBC 6.71 (4.8-10.8) K/ul RBC 3.22 L (4.20-5.40) M/uL Hgb 9.1 L (12.0-16.0) g/dl Hct 27.4 L (37.0-47.0) % MCV 85.1 (80.0-100.0) fL MCH 28.3 (25.0-34.0) pg MCHC 33.2 (32.0-36.0) g/dL RDW Std Deviation 64.4 H (36.4-46.3) fL RDW Coeff of Leah 20.7 H (11.5-14.5) % Plt Count 85 L (130-400) K/uL MPV 11.5 (9.4-12.4) fL Immature Gran % (Auto) 0.9 % Neut % (Auto) 72.6 % Lymph % (Auto) 10.9 % Hart % (Auto) 9.5 % Eos % (Auto) 5.8 % Baso % (Auto) 0.3 % Neut # (Auto) 4.87 (1.40-6.50) K/uL Lymph # (Auto) 0.73 L (1.20-3.40) K/uL Hart # (Auto) 0.64 H (0.11-0.59) K/uL Eos # (Auto) 0.39 (0.00-0.50) K/uL Baso # (Auto) 0.02 (0.00-0.20) K/uL Immature Gran # (Auto) 0.06 (0.01-0.20) K/uL Absolute Nucleated RBC (0.00-0.12) K/uL Nucleated RBC % (auto) % Neutrophils % (Manual) % Lymphocytes % (Manual) % Monocytes % (Manual) % Eosinophils % (Manual) % Basophils % (Manual) % Neutrophils # (Manual) (1.40-6.50) K/uL Total Absolute Neuts (1.4-6.5) K/uL Lymphocytes # (Manual) (1.2-3.4) K/uL Total Abs Lymphocytes (1.2-3.4) K/uL Monocytes # (Manual) (0.11-0.59) K/uL Eosinophils # (Manual) (0-0.50) K/uL Basophils # (Manual) (0-0.2) K/uL Polychromasia 1+ Anisocytosis Present Target Cells Ovalocytes 1+ Echinocytes 1+ Sodium 129 L (136-145) mmol/L Potassium 4.3 (3.5-5.1) mmol/L Chloride 106 (98-107) mmol/L Carbon Dioxide 16 L (21-32) mmol/L Anion Gap 7 (3-11) BUN 74 H (6-23) mg/dl Creatinine 3.06 H (0.6-1.2) mg/dl Est Cr Clr Drug Dosing 17.0 ml/min eGFR 14.88 BUN/Creatinine Ratio 24.2 H (10-20) Glucose 148 H (70-99(Fasting)) mg/dl POC Glucose 137 H 192 H (70-99) mg/dl Osmolality (280-300) mOsm/kg Lactate (0.4-2.0) mmol/L Calcium 8.5 L (8.6-10.3) mg/dl Phosphorus (2.5-4.9) mg/dl Magnesium (1.7-2.4) mg/dl Total Bilirubin (0.2-1.0) mg/dl AST (13-39) U/L ALT (7-52) U/L Alkaline Phosphatase (34-104) U/L Ammonia (18-72) umol/L Total Protein (6.0-8.3) gm/dl Albumin (3.4-5.0) gm/dl Globulin (2.5-4.0) gm/dl Albumin/Globulin Ratio (0.9-2) Procalcitonin (0-0.5) ng/ml TSH (0.300-4.500) uIu/ml Free T4 (0.61-1.60) ng/dl Random Cortisol mcg/dl Ur Random Creatinine mg/dl Ur Random Sodium mmol/L 05/21/24 Range/Units 16:06 WBC (4.8-10.8) K/ul RBC (4.20-5.40) M/uL Hgb (12.0-16.0) g/dl Hct (37.0-47.0) % MCV (80.0-100.0) fL MCH (25.0-34.0) pg MCHC (32.0-36.0) g/dL RDW Std Deviation (36.4-46.3) fL RDW Coeff of Leah (11.5-14.5) % Plt Count (130-400) K/uL MPV (9.4-12.4) fL Immature Gran % (Auto) % Neut % (Auto) % Lymph % (Auto) % Hart % (Auto) % Eos % (Auto) % Baso % (Auto) % Neut # (Auto) (1.40-6.50) K/uL Lymph # (Auto) (1.20-3.40) K/uL Hart # (Auto) (0.11-0.59) K/uL Eos # (Auto) (0.00-0.50) K/uL Baso # (Auto) (0.00-0.20) K/uL Immature Gran # (Auto) (0.01-0.20) K/uL Absolute Nucleated RBC (0.00-0.12) K/uL Nucleated RBC % (auto) % Neutrophils % (Manual) % Lymphocytes % (Manual) % Monocytes % (Manual) % Eosinophils % (Manual) % Basophils % (Manual) % Neutrophils # (Manual) (1.40-6.50) K/uL Total Absolute Neuts (1.4-6.5) K/uL Lymphocytes # (Manual) (1.2-3.4) K/uL Total Abs Lymphocytes (1.2-3.4) K/uL Monocytes # (Manual) (0.11-0.59) K/uL Eosinophils # (Manual) (0-0.50) K/uL Basophils # (Manual) (0-0.2) K/uL Polychromasia Anisocytosis Target Cells Ovalocytes Echinocytes Sodium (136-145) mmol/L Potassium (3.5-5.1) mmol/L Chloride (98-107) mmol/L Carbon Dioxide (21-32) mmol/L Anion Gap (3-11) BUN (6-23) mg/dl Creatinine (0.6-1.2) mg/dl Est Cr Clr Drug Dosing ml/min eGFR BUN/Creatinine Ratio (10-20) Glucose (70-99(Fasting)) mg/dl POC Glucose 150 H (70-99) mg/dl Osmolality (280-300) mOsm/kg Lactate (0.4-2.0) mmol/L Calcium (8.6-10.3) mg/dl Phosphorus (2.5-4.9) mg/dl Magnesium (1.7-2.4) mg/dl Total Bilirubin (0.2-1.0) mg/dl AST (13-39) U/L ALT (7-52) U/L Alkaline Phosphatase (34-104) U/L Ammonia (18-72) umol/L Total Protein (6.0-8.3) gm/dl Albumin (3.4-5.0) gm/dl Globulin (2.5-4.0) gm/dl Albumin/Globulin Ratio (0.9-2) Procalcitonin (0-0.5) ng/ml TSH (0.300-4.500) uIu/ml Free T4 (0.61-1.60) ng/dl Random Cortisol mcg/dl Ur Random Creatinine mg/dl Ur Random Sodium mmol/L Diagnostic Findings Abdomen/Pelvis CT 04/27/24 07:24 CT OF THE ABDOMEN AND PELVIS WITHOUT CONTRAST CLINICAL HISTORY: Right-sided abdominal pain. COMPARISON STUDY: CT of the abdomen and pelvis July 25, 2023. Renal ultrasound November 10, 2023. TECHNIQUE: Axial images of the abdomen and pelvis were obtained without IV contrast. Images were reviewed in the axial, sagittal, and coronal planes. Automated exposure control was utilized for the study. A dose lowering technique was utilized adhering to the principles of ALARA. FINDINGS: The heart is enlarged. The liver is cirrhotic. Although sensitivity is diminished on this unenhanced exam, no hepatic lesions are identified. The gallbladder surgically absent. Size of the spleen is normal. There is trace perihepatic ascites. Upper abdominal varices are again noted. IVC filter is in place. There is no evidence for a bowel obstruction. Of note, there is extensive pneumatosis involving the majority of the colon as well as rectal involvement. Gas extending into the mesentery and adjacent soft tissues is present. There are no fluid collections. Evaluation of the abdomen and pelvis is suboptimal on this unenhanced examination. There is no hydronephrosis. The bladder is distended. Postoperative findings within the spine are noted. There are no acute fractures within the visualized skeletal structures. IMPRESSION: 1. Extensive pneumatosis involving the majority of the colon and rectum with extraluminal gas extending into the mesentery and adjacent soft tissues. Trace associated infiltration and ascites. Pneumatosis represents a nonspecific finding although is worrisome for bowel ischemia. Correlation with clinical evidence for ischemia is recommended. 2. Cirrhotic liver. Trace perihepatic ascites. Redemonstration of upper abdominal varices indicative of portal hypertension. 3. No bowel obstruction. ACT 112: Negative or not required by law. Electronically signed by: Eris Friedman M.D. 04/27/2024 8:11 AM Hip/Pelvis X-Ray 04/27/24 07:24 XR hip RT 2V w pelvis CLINICAL HISTORY: Right hip pain. COMPARISON: CT of the abdomen and pelvis July 25, 2023. Pelvis and right hip radiographs June 18, 2023. FINDINGS: Postoperative findings within the spine are better depicted on the lumbar spine radiographs which will be reported separately. There are no fractures within the pelvis or hips. Hip joint spaces are preserved. There is mild to moderate bilateral hip osteophytosis. There is no evidence for avascular necrosis of the femoral heads. A calcific density superior to the right hip suggests an old avulsion injury. Partially visualized healed right femoral diaphyseal fracture is present. IMPRESSION: 1. No fractures within the pelvis or hips. 2. Mild to moderate bilateral hip osteoarthritis. ACT 112: Negative or not required by law. Electronically signed by: Eris Friedman M.D. 04/27/2024 8:24 AM Lumbar Spine X-Ray 04/27/24 07:24 XR lumbar spine min 4V routine CLINICAL HISTORY: Right leg radiculopathy, hx of spine surgery COMPARISON STUDY: Lumbar spine MRI August 17, 2022. Lumbar spine radiographs December 22, 2022. FINDINGS: Incidental note is made of colonic pneumatosis, better depicted on the abdominal CT. There are cholecystectomy clips. IVC filter is in place. No lumbar spine fractures are present. Status post L4-S1 decompression and fusion. Hardware is intact. There is mild disc space narrowing and osteophytosis within the lumbar spine with moderate facet arthrosis. IMPRESSION: 1. No lumbar spine fractures. 2. Stable findings following L4-S1 decompression and fusion. ACT 112: Negative or not required by law. Electronically signed by: Eris Friedman M.D. 04/27/2024 8:25 AM Chest X-Ray 04/27/24 11:51 XR chest 1V portable CLINICAL HISTORY: Congestive heart failure. COMPARISON STUDY: Chest radiograph February 15, 2024. Chest CT November 22, 2022. FINDINGS: There is no pneumothorax or pleural effusion. There is no consolidation to suggest pneumonia. Linear left basilar densities represent atelectasis or scarring. There is no evidence for pulmonary edema. Cardiomegaly is unchanged. IMPRESSION: No acute cardiopulmonary findings. Cardiomegaly. ACT 112: Negative or not required by law. Electronically signed by: Eris Friedman M.D. 04/27/2024 12:15 PM Chest X-Ray 04/27/24 18:42 PORTABLE SUPINE AP CHEST RADIOGRAPH CLINICAL HISTORY: post op intubation COMPARISON STUDY: Chest radiograph performed earlier today. FINDINGS: Tip of endotracheal tube is 2.8 cm above the dejan. There is no pneumothorax or pleural effusion. Moderate cardiomegaly is again noted. There is no evidence for pulmonary edema. Apparent hazy left basilar opacity is likely artifactual. IMPRESSION: 1. Satisfactory positioning of the endotracheal tube 2. Cardiomegaly. No evidence for pulmonary edema. ACT 112: Negative or not required by law. Electronically signed by: Eris Friedman M.D. 04/27/2024 7:07 PM Chest X-Ray 04/27/24 20:17 XR chest 1V portable CLINICAL HISTORY: central line placement COMPARISON STUDY: Chest radiograph April 27, 2024 at 6:55 PM. FINDINGS: There is no pneumothorax following placement of a right internal jugular central line. Catheter tip projects over the distal SVC. Tip of endotracheal tube is 3 cm above the dejan. Cardiomegaly is again noted. There are suspected trace bilateral pleural effusions. No vascular congestion is noted. There is left basilar opacity. IMPRESSION: 1. No pneumothorax. Placement of a right internal jugular central line. 2. Appropriately positioned endotracheal tube. 3. Cardiomegaly with pulmonary vascular congestion. 4. Left basilar airspace opacity. This could reflect atelectasis or pneumonia/aspiration pneumonitis. ACT 112: Negative or not required by law. Electronically signed by: Eris Friedman M.D. 04/28/2024 7:52 AM Chest X-Ray 04/28/24 18:44 SINGLE VIEW CHEST CLINICAL HISTORY: Respiratory failure. FINDINGS: An AP, portable, upright chest radiograph is compared to study dated 04/27/2024. The examination is degraded by portable technique and patient rotation. An endotracheal tube and a right internal jugular central venous catheter are unchanged in position. Correlation is made with chest CT dated 11/22/2022. The heart is enlarged. The pulmonary vasculature is noncongested. Atelectasis is noted at both lung bases. No large pleural effusion or pneumothorax is seen. The skeletal structures are osteopenic. The bony thorax is grossly intact. Cholecystectomy clips are seen in the right upper quadrant. Intraperitoneal free air is seen below the right hemidiaphragm. IMPRESSION: 1. Intraperitoneal free air is seen in below the right hemidiaphragm. This may be related to pneumatosis intestinalis throughout the colon seen on yesterday's abdominal CT. Correlate clinically for evidence of visceral perforation. 2. Cardiomegaly without radiographic evidence of congestive failure. 3. Stable lines and tubes. 4. No airspace consolidation or large pleural effusion is identified. Findings were reported to nurse practitioner Jayy at the time of interpretation. ACT 112: Negative or not required by law. Electronically signed by: Kenny Jung M.D. 04/28/2024 7:40 PM Chest X-Ray 04/29/24 06:00 SINGLE VIEW CHEST CLINICAL HISTORY: Respiratory failure. FINDINGS: 2 AP, portable, upright chest radiographs are compared to study dated 04/28/2024. The examination is degraded by portable technique and patient rotation. An endotracheal tube and a right internal jugular central venous catheter are unchanged in position. Correlation is made with chest CT dated 11/22/2022. The heart is enlarged. The pulmonary vasculature is noncongested. There are increasing dependent airspace opacities. Small pleural effusions are suspected. No pneumothorax is seen. The skeletal structures are osteopenic. The bony thorax is grossly intact. Cholecystectomy clips are seen in the right upper quadrant. Intraperitoneal free air seen below the right hemidiaphragm on yesterday's examination is no longer apparent. IMPRESSION: 1. Cardiomegaly without radiographic evidence of congestive failure. 2. Stable lines and tubes. 3. There are increasing dependent airspace opacities which could represent progressive atelectasis versus a developing pneumonia/aspiration pneumonitis. Clinical correlation will be required. 4. Suspect small pleural effusions. ACT 112: Negative or not required by law. Electronically signed by: Kenny Jung M.D. 04/29/2024 7:41 AM Chest X-Ray 04/30/24 06:00 XR chest 1V portable CLINICAL HISTORY: eval tubes/lines/lung neely while intubated TECHNIQUE: Single frontal radiograph of the chest was obtained. Comparison: Comparison is made to chest radiograph 04/29/2024 FINDINGS: Lines and tubes are stable. Calcified aortic knob is seen. Faint bibasilar airspace opacities are seen. No evidence of pleural effusion or pneumothorax. IMPRESSION: Faint bibasilar airspace opacities which may represent atelectasis, pneumonia, and/or aspiration. ACT 112: Negative or not required by law. Electronically signed by: Cory Wolff M.D. 04/30/2024 7:37 AM KUB X-Ray 04/30/24 11:34 KUB CLINICAL HISTORY: Enteric tube placement. FINDINGS: 2 AP, portable, upright views of the lower chest and upper abdomen are correlated with abdominal CT dated 04/27/2024. An enteric tube has been placed. The tip projects below the diaphragm over the mid to distal stomach. There is a paucity of bowel gas, and the gas pattern is nonspecific. No intraperitoneal free air is seen below the diaphragm. Cholecystectomy clips are noted in the right upper quadrant. The bony structures appear intact. Fusion hardware is seen in the lumbar spine. Airspace consolidation is noted at the lung bases. IMPRESSION: An enteric tube has been placed as above. Electronically signed by: Kenny Jung M.D. 04/30/2024 1:45 PM Abdomen/Pelvis CT 05/02/24 08:17 CT OF THE ABDOMEN AND PELVIS WITHOUT CONTRAST CLINICAL HISTORY: Bleeding ? COMPARISON STUDY: CT of the abdomen and pelvis April 27, 2024. KUB April 30, 2024. TECHNIQUE: Axial images of the abdomen and pelvis were obtained without IV contrast. Images were reviewed in the axial, sagittal, and coronal planes. Automated exposure control was utilized for the study. A dose lowering technique was utilized adhering to the principles of ALARA. FINDINGS: Small bilateral pleural effusions are present. Subpleural opacities favor atelectasis. There is evidence for mild pulmonary edema within the lower lungs. The heart is enlarged. Tip of nasogastric tube is within the distal body of the stomach. IVC filter is in place. There are postoperative findings consistent with subtotal colectomy with right lower quadrant ileostomy. There is a small amount of hemorrhage within the subcutaneous tissues adjacent to the ileostomy. There also several small foci of hemorrhage within the upper abdomen, within the operative bed. The largest is a 2.4 cm right upper quadrant focus on image 171. A small amount of ascites is also present. No large hematoma is noted. There is no biliary ductal dilatation status post cholecystectomy. The liver is cirrhotic. Varices are present. Adrenal glands, kidneys and pancreas are unremarkable. The appearance of the spleen is unchanged. A Lynn balloon and gas within the bladder are present. There is no retroperitoneal hematoma. Rectal probe is in place. Body wall edema is noted. No pneumatosis, free air or portal venous gas is present. There is trace gas within the abdominal wall which is postsurgical. A drain within the laparotomy site is present. IMPRESSION: 1. Status post subtotal colectomy with right lower quadrant ileostomy. Multiple small hyperdense foci within the operative bed consistent with a small amount of hemorrhage. No large hematoma. 2. Cirrhotic liver. Small amount of ascites. Small bilateral pleural effusions. Body wall edema. 3. No pneumatosis, free air or portal venous gas. 4. No hydronephrosis. ACT 112: Negative or not required by law. Electronically signed by: Eris Friedman M.D. 05/02/2024 9:32 AM Venous Doppler Study 05/09/24 16:14 Exam(s): US VENOUS BILATERAL LOWER EXTREMITIES EXAM: US Duplex Bilateral Lower Extremities Veins CLINICAL HISTORY: Reason for exam: post op calf pain. TECHNIQUE: Real-time duplex ultrasound scan of the bilateral lower extremity veins integrating B-mode two-dimensional vascular structure, Doppler spectral analysis, color flow Doppler imaging and compression. COMPARISON: 06/19/2023 FINDINGS: Right deep veins: Thrombus detected in the distal right popliteal vein.. No DVT in the right common femoral, or femoral, proximal deep femoral veins. The right calf veins limitedly visualized due to patient's large body habitus and also due to edema/swelling of the lower extremity. Right superficial veins: Unremarkable. No thrombus in the visualized right great saphenous vein. Left deep veins: There is likely a chronic nonocclusive thrombosis of the left popliteal vein.. No DVT in the left common femoral or femoral, proximal deep femoral veins. Left superficial veins: Unremarkable. No thrombus in the visualized left great saphenous vein. Soft tissues: No popliteal cyst.. IMPRESSION: Right lower extremity: DVT in the distal right popliteal vein. 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 . Electronically signed by: Freda Wahl MD, DABR 05/10/24 00:20 AM Chest X-Ray 05/25/24 09:43 XR chest 1V portable HISTORY: 78 years-old Female abnormal breath sounds acute shortness of breath COMPARISON: 04/30/2024 TECHNIQUE: AP view of the chest FINDINGS: Cardiac silhouette is enlarged. Atherosclerosis of the aorta. Pulmonary vascular congestion. Trace pleural effusions with mild bibasilar atelectasis. No pneumothorax. Cholecystectomy. Bones appear grossly intact. IMPRESSION: 1. Cardiomegaly with pulmonary vascular congestion. 2. Trace pleural effusions. ACT 112: Negative or not required by law. The above report was generated using voice recognition software. It may contain grammatical, syntax or spelling errors. Electronically signed by: Victor M Reyna M.D. 05/25/2024 11:16 AM PG Care Time/CCT Total # of Minutes Spent Total Time Spent with Patient: Total time spent is greater than 50% in coordination of care (as documented) at patient's floor/unit and/or counseling patient: I spent 90 minutes overall addressing this case: 15 min in medical data review/discussion with referring provider(s) and/or preparation for the visit 15 min in direct interaction with the patient/exam 30 min in Advance Care Planning/Goals of Care discussions as detailed above in note (must be >16min) 15 min in subsequent review and synthesis of assessment and plan 15 min communicating with other providers regarding the patient's case: nursing, primary team Advanced Care Planning 56953 Advanced Care Planning 30 [place] [address] IN/OBS CONSULT LVL 4,60M (25 - SIGNIFICANT, SEPARATELY IDENTIFIABLE ) Patient Type New Medical Decision Making High Complexity Diagnoses Dyspnea and respiratory abnormalities R06.00; R06.89 Agitation R45.1 Generalized weakness R53.1 Hypotension I95.9 Discussion about advance care planning held with family member Z71.0 Palliative care by specialist Z51.5 Shock circulatory R57.9 Acute kidney injury superimposed on stage 4 chronic kidney disease N17.9; N18.4 Ischemic bowel disease K55.9 Septic shock A41.9; R65.21 Additional Codes Advanced Care Planning - 63573 Advanced Care Planning 30 Min: 70026 Advanced Care Planning 30 Min ([id number])
[2024-05-28] MEDS: HYDROmorphone INJ 0.5 MG/0.5 ML SYR IV PRN (11:43)
--- NOTE | 2024-05-28 17:47 | Hospitalist Progress Note ---
Date of Service May 28, 2024 Assessment & Plan (1) Acute kidney injury superimposed on stage 3b chronic kidney disease: Plan: Creatinine is still at 3. She probably has a combination of ATN and prerenal failure. Comfort care has been decided on (2) Ischemia, bowel: Plan: Status post total colectomy with ileostomy formation. Functioning ileostomy right lower quadrant. Appreciate surgery consultation and recommendations. She has open abdominal wound with packing in place. Comfort care decided on (3) Septic shock: Plan: Present on admission. Status post pressor support. Resolved Comfort care (4) Anemia: Plan: history of anemia of chronic kidney disease as well as MGUS. Now acute blood loss anemia with EBL 500 mL from surgery. Chronic Eliquis therapy on admission. This was initially held and subsequently restarted. She has received fresh frozen plasma and multiple units of packed red blood cells. Currently comfort care has been initiated (5) Cirrhosis: Plan: History of Rothman cirrhosis and portal hypertension. Propranolol and rifaximin were restarted on May 20 . Ammonia level 58 on 05/27 Comfort care has been initiated (6) Chronic diastolic heart failure: Plan: Comfort care (7) Right leg DVT: Plan: Comfort care (8) Morbid obesity: Plan: Comfort care (9) Type 2 diabetes mellitus: Plan: ADA diet. Basal insulin therapy. Comfort care (10) Cellulitis of left lower extremity: Plan: Comfort care (11) Acute delirium: Plan: Hospitalization induced. Now appears to have resolved. Supportive care but currently encephalopathic. Comfort care Plan Overnight patient had issues with hypotension, requiring multiple fluid boluses and albumin. Palliative care was consulted. Comfort care has been decided on after family meeting. Comfort care measures initiated Admission and Anticipated Discharge Date Admission Date: April 27, 2024 Subjective Patient was seen and examined at 2:20 PM. Family in the room. Decision has been made for comfort care measures only. Review of Systems Review of Systems: Unobtainable due to cognitive status Physical Exam Physical Exam: General: Patient appears comfortable, sleeping Results & Data Results & Data Vital Signs (Past 12 Hours) Vital Signs Temp Pulse Pulse Resp BP BP BP 05/28/24 11:17 37 C 87 34 H 67/34 L 05/28/24 10:59 37.3 C 89 18 81/47 L 81/47 L 05/28/24 10:18 05/28/24 09:50 36.8 C 99 H 16 71/38 L 05/28/24 09:05 36.7 C 84 16 81/47 L 05/28/24 08:00 79 05/28/24 07:36 84/40 L 05/28/24 07:29 82 70/40 L 05/28/24 06:59 36.3 C L 83 18 96/53 L 05/28/24 06:18 90/56 L Pulse Ox O2 Del Method 05/28/24 11:17 100 Room Air 05/28/24 10:59 99 Room Air 05/28/24 10:18 Room Air 05/28/24 09:50 100 Room Air 05/28/24 09:05 99 Room Air 05/28/24 08:00 05/28/24 07:36 05/28/24 07:29 05/28/24 06:59 100 Room Air 05/28/24 06:18 PG Care Time/CCT Total # of Minutes Spent Total Time Spent with Patient: Total time spent is greater than 50% in coordination of care (as documented) at patient's floor/unit and/or counseling patient: Coding Level of Care Code 21584 SUB INP/OBS CARE 235MIN Diagnoses Acute kidney injury superimposed on stage 3b chronic kidney disease N17.9; N18.32 Ischemia, bowel K55.9 Septic shock A41.9; R65.21 Anemia D64.9 Anemia type: unspecified type Cirrhosis K74.60 Chronic diastolic heart failure I50.32 Right leg DVT I82.401 Morbid obesity E66.01 Type 2 diabetes mellitus E11.9 Cellulitis of left lower extremity L03.116 Acute delirium R41.0 (4) Anemia Anemia type: unspecified type Qualified Code(s): D64.9 - Anemia, unspecified
[2024-05-29] MEDS: LORazepam 2 MG/1 ML VIAL IV PRN (15:02)
--- NOTE | 2024-05-29 16:50 | Hospitalist Progress Note ---
Date of Service May 29, 2024 Assessment & Plan (1) Acute kidney injury superimposed on stage 3b chronic kidney disease: Plan: Creatinine is still at 3. She probably has a combination of ATN and prerenal failure. Comfort care has been decided on (2) Ischemia, bowel: Plan: Status post total colectomy with ileostomy formation. Functioning ileostomy right lower quadrant. Appreciate surgery consultation and recommendations. She has open abdominal wound with packing in place. Comfort care decided on (3) Septic shock: Plan: Present on admission. Status post pressor support. Resolved Comfort care (4) Anemia: Plan: history of anemia of chronic kidney disease as well as MGUS. Now acute blood loss anemia with EBL 500 mL from surgery. Chronic Eliquis therapy on admission. This was initially held and subsequently restarted. She has received fresh frozen plasma and multiple units of packed red blood cells. Currently comfort care has been initiated (5) Cirrhosis: Plan: History of Rothman cirrhosis and portal hypertension. Propranolol and rifaximin were restarted on May 20 . Ammonia level 58 on 05/27 Comfort care has been initiated (6) Chronic diastolic heart failure: Plan: Comfort care (7) Right leg DVT: Plan: Comfort care (8) Morbid obesity: Plan: Comfort care (9) Type 2 diabetes mellitus: Plan: ADA diet. Basal insulin therapy. Comfort care (10) Cellulitis of left lower extremity: Plan: Comfort care (11) Acute delirium: Plan: Hospitalization induced. Now appears to have resolved. Supportive care but currently encephalopathic. Comfort care Plan Overnight patient had issues with hypotension, requiring multiple fluid boluses and albumin. Palliative care was consulted. Comfort care has been decided on after family meeting. Comfort care measures initiated Admission and Anticipated Discharge Date Admission Date: April 27, 2024 Subjective Patient is comfort care. Nurse raised no concerns Review of Systems Review of Systems: All systems reviewed & are unremarkable except as noted in Subjective Physical Exam Physical Exam: General: Patient appears comfortable, sleeping Results & Data Results & Data Vital Signs (Past 12 Hours) Vital Signs O2 Del Method 05/29/24 10:00 Room Air PG Care Time/CCT Total # of Minutes Spent Total Time Spent with Patient: Total time spent is greater than 50% in coordination of care (as documented) at patient's floor/unit and/or counseling patient: Coding Level of Care Code 00347 SUB INP/OBS CARE /25MIN Diagnoses Acute kidney injury superimposed on stage 3b chronic kidney disease N17.9; N18.32 Ischemia, bowel K55.9 Septic shock A41.9; R65.21 Anemia D64.9 Anemia type: unspecified type Cirrhosis K74.60 Chronic diastolic heart failure I50.32 Right leg DVT I82.401 Morbid obesity E66.01 Type 2 diabetes mellitus E11.9 Cellulitis of left lower extremity L03.116 Acute delirium R41.0 (4) Anemia Anemia type: unspecified type Qualified Code(s): D64.9 - Anemia, unspecified
[2024-05-30] MEDS: GLYCOPYRROLATE 0.2 MG/ML VIAL IV PRN (05:28)
[2024-05-30 09:19] VITALS: BP 81/47; PULSE 87; RESP 16; TEMP 98.6; O2SAT 99
--- NOTE | 2024-05-30 09:47 | Discharge Summary ---
Date of Service May 30, 2024 Admission HPI Per Admitting Provider 78-year-old female with several days of abdominal pain. She has associated weakness and not feeling well. She presented to the ED for evaluation. CT scan of the abdomen reveals diffuse pneumatosis of the colon highly suspicious for ischemic bowel. She is diffusely tender in the abdomen and bowel sounds are absent. She has been seen by general surgery. She is a DNR patient. She has been started on Zosyn along with IV fluids and been given morphine for pain control measures. She will be admitted for further evaluation and management Principal Diagnosis Acute kidney injury on CKD stage III Bowel ischemia post colectomy Septic shock Acute blood loss anemia Discharge Exam Patient Discharge Data Allergies Allergy/AdvReac Type Severity Reaction Status Date / Time No Known Allergies Allergy Verified 02/15/24 02:39 Consultations 04/27/24 09:33 ED Decision to Admit Stat 04/27/24 17:52 Consult General Surgery Routine Consult C[employer] Clerk Routine 05/01/24 08:18 Consult Nephrology Routine 05/27/24 17:16 Consult Palliative Care Routine Procedures Performed Operation Date: 04/27/24 11:40 Actual Procedures p Bowel Resection, creation of illiostomy, Exploratory Laparotomy(Not Applicable) - Arie Melchor MD, FACS Ordered Studies 04/27/24 07:24 CT Abd and Pelvis [CT abd pelvis wo con] Stat 04/27/24 19:11 US point of care ultrasound Stat 05/02/24 08:17 CT Abd and Pelvis [CT abd pelvis wo con] Stat 05/09/24 16:14 US venous doppler [facility] Urgent Hospital Course (1) Acute kidney injury superimposed on stage 3b chronic kidney disease: Creatinine is still at 3. She probably has a combination of ATN and prerenal failure. Comfort care has been decided on (2) Ischemia, bowel: Status post total colectomy with ileostomy formation. Functioning ileostomy right lower quadrant. Appreciate surgery consultation and recommendations. She has open abdominal wound with packing in place. Comfort care decided on (3) Septic shock: Present on admission. Status post pressor support. Resolved Comfort care (4) Anemia: history of anemia of chronic kidney disease as well as MGUS. Now acute blood loss anemia with EBL 500 mL from surgery. Chronic Eliquis therapy on admission. This was initially held and subsequently restarted. She has received fresh frozen plasma and multiple units of packed red blood cells. Currently comfort care has been initiated (5) Cirrhosis: History of Rothman cirrhosis and portal hypertension. Propranolol and rifaximin were restarted on May 20 . Ammonia level 58 on 05/27 Comfort care has been initiated (6) Chronic diastolic heart failure: Comfort care (7) Right leg DVT: Comfort care (8) Morbid obesity: Comfort care (9) Type 2 diabetes mellitus: ADA diet. Basal insulin therapy. Comfort care (10) Cellulitis of left lower extremity: Comfort care (11) Acute delirium: Hospitalization induced. Now appears to have resolved. Supportive care but currently encephalopathic. Comfort care Plan Patient 05/30 at 9:18 AM. Called Rosalind Joel, patient's primary contact and left a message for call back. Also called Raul Erickson, secondary contact. No option to leave message for secondary contact. Total Time Total Time Spent Total Time Spent (In Minutes): 35 Discharge Plan Discharge Items Patient Disposition: Other Date/Time: 05/30/24 09:18
== END 2024-05-30 18:18 | disposition expired | DRG 853 ==
LOC: SUATTDRO → ED 07:01 → 1E 13:31 → SUATTDRO 15:12 → 2S 05-05 18:56 → 3N 05-09 17:50 → 2S 05-18 21:25 → 3W 05-26 15:45 → 2S 05-28 01:52 → 3E 05-29 20:16
DX: I82.431 Acute embolism and thrombosis of right popliteal vein; Z98.1 Arthrodesis status; Z96.653 Presence of artificial knee joint, bilateral; K74.60 Unspecified cirrhosis of liver; K55.9 Vascular disorder of intestine, unspecified; A41.9 Sepsis, unspecified organism; D63.1 Anemia in chronic kidney disease; J96.90 Respiratory failure, unspecified, unspecified whether with hypoxia or hypercapnia; Z66 Do not resuscitate; K63.89 Other specified diseases of intestine; N18.32 Chronic kidney disease, stage 3b; I35.0 Nonrheumatic aortic (valve) stenosis; D62 Acute posthemorrhagic anemia; D47.2 Monoclonal gammopathy; I48.91 Unspecified atrial fibrillation; K75.81 Nonalcoholic steatohepatitis (NASH); E11.51 Type 2 diabetes mellitus with diabetic peripheral angiopathy without gangrene; E87.20 Acidosis, unspecified; Z51.5 Encounter for palliative care; E11.22 Type 2 diabetes mellitus with diabetic chronic kidney disease; I82.532 Chronic embolism and thrombosis of left popliteal vein; E66.01 Morbid (severe) obesity due to excess calories; Z79.01 Long term (current) use of anticoagulants; Z87.891 Personal history of nicotine dependence; L03.116 Cellulitis of left lower limb; R65.21 Severe sepsis with septic shock; I13.0 Hypertensive heart and chronic kidney disease with heart failure and stage 1 through stage 4 chronic kidney disease, or unspecified chronic kidney disease; K76.6 Portal hypertension; E27.40 Unspecified adrenocortical insufficiency; Z86.718 Personal history of other venous thrombosis and embolism; Z68.42 Body mass index [BMI] 45.0-49.9, adult; K62.5 Hemorrhage of anus and rectum; I50.32 Chronic diastolic (congestive) heart failure; Z79.4 Long term (current) use of insulin; R41.0 Disorientation, unspecified; N17.0 Acute kidney failure with tubular necrosis; Z86.711 Personal history of pulmonary embolism; K76.7 Hepatorenal syndrome; Z83.3 Family history of diabetes mellitus; Z79.890 Hormone replacement therapy; R45.1 Restlessness and agitation